=== PATIENT | female | born 1960 | race Caucasian/White ===

== ENCOUNTER → 2019-12-23 13:19 | Outpatient (BNV) | payer OTHER, SELFPAY | PROVIDERS: Visit Provider Internal Medicine Medical Oncology | DX: D75.1 Secondary polycythemia (principal) | CPT/HCPCS: 99203; 99213; 99214 ==

== ENCOUNTER → 2019-12-28 14:36 | Outpatient (BNVA) | payer OTHER, SELFPAY | PROVIDERS: PCP Internal Medicine; Visit Provider Surgery | DX: Z76.89 Persons encountering health services in other specified circumstances (principal) ==

== ENCOUNTER 2020-02-02 07:02 | Day surgery (SDC) | payer OTHER, SELFPAY ==
[2020-01-28 15:21] VITALS: BMI 37.8
--- NOTE | 2020-02-01 11:04 | HO.ANESPROP2 ---
Documented by User: Annalee Ramirez 02/01/20 11:07 HPI - Anesthesia Eval Consult details Narrative: 59yo F for Colonoscopy H/O DI 05/2018 shoulder surgery with resp distress, tx'd to ICU intubated post-op Mult med allergies PMFSH Past Medical History Medical History Asthma Boils Bursitis Chronic, continuous use of opioids COPD (chronic obstructive pulmonary disease) Diabetes Disc degeneration Eczema Fibromyalgia GERD (gastroesophageal reflux disease) Hx of difficult intubation Osteoarthritis Polycythemia Rheumatoid arthritis Sjogrens syndrome Sleep apnea Smoker Surgical History Surgical History History of bladder suspension procedure History of colonoscopy History of removal of cyst History of surgical removal of pilonidal cyst Hx of appendectomy Hx of cholecystectomy Hx of hysterectomy Hx of plastic surgery Hx of tonsillectomy Social History Social History Alcohol intake: never Smoking Status: Current every day smoker Tobacco Type: E-Cigarette and Pipe Packs Per Day: 1 Cigarettes Per Day: 20.0 Years Smoked: 46 Smoked in Last 30 Days: Yes Patient Given Instructions on How to Stop Smoking: Yes Date Education Initiated: 01/28/20 Use of substances other than those prescribed or required for medical reasons: No Advance Directives: No Advance Directives Information Provided: No Advance Directives on File: No Meds Allergies Allergy/AdvReac Type Severity Reaction Status Date / Time azithromycin [AZITHROMYCIN] Allergy Severe DIFFICULTY Verified 02/02/20 07:47 BREATHING acetaminophen [From TYLENOL] Allergy Unknown ITCHING Verified 02/02/20 07:47 adhesive tape [ADHESIVE TAPE] Allergy Unknown RASH Verified 02/02/20 07:47 atorvastatin [From LIPITOR] Allergy Unknown DIFF Verified 02/02/20 07:47 BREATHING gentamicin [GENTAMICIN] Allergy Unknown RASH Verified 02/02/20 07:47 haloperidol [From HALDOL] Allergy Unknown GI ISSUES Verified 02/02/20 07:47 prasterone (DHEA) [From DHEA] Allergy Unknown CARDIAC Verified 02/02/20 07:47 ISSUES sumatriptan [From IMITREX] Allergy Unknown DIFF Verified 02/02/20 07:47 BREATHING varenicline [From CHANTIX] Allergy Unknown SEIZURE Verified 02/02/20 07:47 adalimumab [From Humira] Allergy Rash Verified 02/02/20 07:47 ketorolac [From TORADOL] AdvReac Unknown Muscle Verified 02/02/20 07:47 cramps dust Allergy Unknown asthma Uncoded 12/28/19 14:47 attack Home Medications Medication Instructions Recorded Confirmed Type albuterol sulfate 1 puff PO Q6H PRN 12/23/19 02/02/20 History cyclobenzaprine [Flexeril] 5 mg PO BID PRN 12/23/19 02/02/20 History diazepam 1 - 2 tab PO BID PRN 12/23/19 02/02/20 History diclofenac sodium [Voltaren] 75 mg PO DAILY 12/23/19 02/02/20 History hydroxychloroquine 200 mg PO DAILY 12/23/19 02/02/20 History insulin glargine [Lantus Solostar 50 unit SUBCUT BID 12/23/19 02/02/20 History U-100 Insulin] loratadine 10 mg PO BID 12/23/19 02/02/20 History mag [id number] rt xt 1 tab PO DAILY 12/23/19 02/02/20 History metformin 1,000 mg PO BID 12/23/19 02/02/20 History montelukast 10 mg PO BEDTIME 12/23/19 02/02/20 History morphine 15 mg PO BID PRN 12/23/19 02/02/20 History pantoprazole 40 mg PO DAILY 12/23/19 02/02/20 History aspirin 325 mg PO BID 01/28/20 02/02/20 History insulin lispro [Humalog KwikPen 25 unit SUBCUT TID 01/28/20 02/02/20 History Insulin] multivitamin 1 tab PO DAILY 01/28/20 02/02/20 History Exam Exam Date and Time: February 01, 2020 1104 Height,Weight and Vital Signs: Height 5 ft 4 in Weight 99.79 kg Pertinent Lab Results Pertinent Lab Results: Laboratory Tests 12/23/19 12/23/19 14:44 14:44 WBC 10.9 H Hgb 16.7 H Hct 49.5 H Plt Count 234 Sodium 142 Potassium 5.0 Chloride 103 Carbon Dioxide 29 BUN 7 L Creatinine 0.71 Assessment and Plan Assessment Anesthesia Assessment: Chart Reviewed Documented by User: Sirisha Kern 02/02/20 08:50 PMFSH Past Medical History Medical History Asthma Boils Bursitis Chronic, continuous use of opioids COPD (chronic obstructive pulmonary disease) Diabetes Disc degeneration Eczema Fibromyalgia GERD (gastroesophageal reflux disease) Hx of difficult intubation Osteoarthritis Polycythemia Rheumatoid arthritis Sjogrens syndrome Sleep apnea Smoker Surgical History Surgical History History of bladder suspension procedure History of colonoscopy History of removal of cyst History of surgical removal of pilonidal cyst Hx of appendectomy Hx of cholecystectomy Hx of hysterectomy Hx of plastic surgery Hx of tonsillectomy Social History Social History Alcohol intake: never Smoking Status: Current every day smoker Tobacco Type: E-Cigarette and Pipe Packs Per Day: 1 Cigarettes Per Day: 20.0 Years Smoked: 46 Smoked in Last 30 Days: Yes Patient Given Instructions on How to Stop Smoking: Yes Date Education Initiated: 01/28/20 Use of substances other than those prescribed or required for medical reasons: No Advance Directives: No Advance Directives Information Provided: No Advance Directives on File: No Meds Allergies Allergy/AdvReac Type Severity Reaction Status Date / Time azithromycin [AZITHROMYCIN] Allergy Severe DIFFICULTY Verified 02/02/20 07:47 BREATHING acetaminophen [From TYLENOL] Allergy Unknown ITCHING Verified 02/02/20 07:47 adhesive tape [ADHESIVE TAPE] Allergy Unknown RASH Verified 02/02/20 07:47 atorvastatin [From LIPITOR] Allergy Unknown DIFF Verified 02/02/20 07:47 BREATHING gentamicin [GENTAMICIN] Allergy Unknown RASH Verified 02/02/20 07:47 haloperidol [From HALDOL] Allergy Unknown GI ISSUES Verified 02/02/20 07:47 prasterone (DHEA) [From DHEA] Allergy Unknown CARDIAC Verified 02/02/20 07:47 ISSUES sumatriptan [From IMITREX] Allergy Unknown DIFF Verified 02/02/20 07:47 BREATHING varenicline [From CHANTIX] Allergy Unknown SEIZURE Verified 02/02/20 07:47 adalimumab [From Humira] Allergy Rash Verified 02/02/20 07:47 ketorolac [From TORADOL] AdvReac Unknown Muscle Verified 02/02/20 07:47 cramps dust Allergy Unknown asthma Uncoded 12/28/19 14:47 attack Home Medications Medication Instructions Recorded Confirmed Type albuterol sulfate 1 puff PO Q6H PRN 12/23/19 02/02/20 History cyclobenzaprine [Flexeril] 5 mg PO BID PRN 12/23/19 02/02/20 History diazepam 1 - 2 tab PO BID PRN 12/23/19 02/02/20 History diclofenac sodium [Voltaren] 75 mg PO DAILY 12/23/19 02/02/20 History hydroxychloroquine 200 mg PO DAILY 12/23/19 02/02/20 History insulin glargine [Lantus Solostar 50 unit SUBCUT BID 12/23/19 02/02/20 History U-100 Insulin] loratadine 10 mg PO BID 12/23/19 02/02/20 History mag [id number] rt xt 1 tab PO DAILY 12/23/19 02/02/20 History metformin 1,000 mg PO BID 12/23/19 02/02/20 History montelukast 10 mg PO BEDTIME 12/23/19 02/02/20 History morphine 15 mg PO BID PRN 12/23/19 02/02/20 History pantoprazole 40 mg PO DAILY 12/23/19 02/02/20 History aspirin 325 mg PO BID 01/28/20 02/02/20 History insulin lispro [Humalog KwikPen 25 unit SUBCUT TID 01/28/20 02/02/20 History Insulin] multivitamin 1 tab PO DAILY 01/28/20 02/02/20 History Exam Airway Mallampati Class: II TM Dist: >3cm Neck ROM: Full Assessment and Plan Assessment Anesthesia Assessment: Anesthesia Plan Discussed and Chart Reviewed Final Anesthetic Review NPO: Yes ASA Class: III Final Preanesthetic Review: No Changes in Pt Med Stat, Meds/Allgs Chart Reviewed, Consent Obtained/Reviewed and Anes Risks/Benef Reviewed Patient Risk: Intermediate Procedure Risk: Low Assessment/Block/Sedation in SS: Assess/Block/Sedation-SS Anesthetic Plan Anesthetic Plan: MAC: Disposition: Standard PACU
[2020-02-02 07:12] VITALS: BP 126/76; PULSE 77; RESP 20; TEMP 36.3; O2SAT 96
[2020-02-02] MEDS: Lactated Ringers 1,000 ML 100 ML IVCONT (07:44)
[2020-02-02 07:48] LABS: Glucose, Whole Blood 238 mg/dL (60-115)
--- NOTE | 2020-02-02 08:36 | MHC.SHP ---
Pre-Procedural Eval Section B Chief Complaint: Screening Details of Present Illness: Screening Relevant Family History (Specify if Yes): No Relevant Social History: Tobacco Use Present Medications: see Short Stay Collaborative assessment Medical History: Significant History (Diabetes, sleep apnea, rheumatoid arthritis) History of Previous Operations: No relevant previous surgery Allergies: Allergies Allergy/AdvReac Type Severity Reaction Status Date / Time azithromycin [AZITHROMYCIN] Allergy Severe DIFFICULTY Verified 02/02/20 07:47 BREATHING acetaminophen [From TYLENOL] Allergy Unknown ITCHING Verified 02/02/20 07:47 adhesive tape [ADHESIVE TAPE] Allergy Unknown RASH Verified 02/02/20 07:47 atorvastatin [From LIPITOR] Allergy Unknown DIFF Verified 02/02/20 07:47 BREATHING gentamicin [GENTAMICIN] Allergy Unknown RASH Verified 02/02/20 07:47 haloperidol [From HALDOL] Allergy Unknown GI ISSUES Verified 02/02/20 07:47 prasterone (DHEA) [From DHEA] Allergy Unknown CARDIAC Verified 02/02/20 07:47 ISSUES sumatriptan [From IMITREX] Allergy Unknown DIFF Verified 02/02/20 07:47 BREATHING varenicline [From CHANTIX] Allergy Unknown SEIZURE Verified 02/02/20 07:47 adalimumab [From Humira] Allergy Rash Verified 02/02/20 07:47 ketorolac [From TORADOL] AdvReac Unknown Muscle Verified 02/02/20 07:47 cramps dust Allergy Unknown asthma Uncoded 12/28/19 14:47 attack Review of Systems Sugical H&P ROS: Negative: Constitution, Cardiovascular, Respiratory, Neurological, Psychiatric, Hem-Onc, Allergic/Immunologic, Gastrointestinal, Genitourinary, Integumentary, Endocrine and Eyes/Ears/Nose/Throat and Yes, Specify: Musculoskeletal (Back pain, and generalized pain) Exam Surgical H&P Exam: Normal: HEENT, Normal: Heart, Normal: Lungs, Normal: Abdomen, Normal: Skin and Normal: Neurological and Not Evaluated: Extremities Plan Diagnosis/Plan: Unchanged Patient has been examined and remains a candidate for the planned procedure
--- NOTE | 2020-02-02 11:24 | W.PM.OPN ---
Operative Note Operative Note Date of Service: 02/02/20 Narrative: Preoperative diagnosis: Colon carcinoma screening Postoperative diagnosis: Colon polyp Procedure: Colonoscopy with snare polypectomy Anesthesia: Monitored anesthesia care Estimated blood loss: Less than 1 cc specimen: Polyp at 30 cm Immediate complications: none Indications: This is a 59-year-old female who has undergone colonoscopy in the past. She reports no prior problems and presents for routine screening colonoscopy. Findings: There was 1 approximately 5 mm sessile polyp at about 30 cm, which was removed with the oval snare with cautery setting of 25. Procedure in detail: With patient in left lateral decubitus position after obtaining adequate sedation, time-out procedure was performed. Rectal examination was then performed and demonstrated moderately edematous external hemorrhoids. The flexible pediatric colonoscope was introduced and was gradually advanced through the bowel to the level of the cecum. The cecal pouch, ileocecal valve and appendiceal orifice were visualized and appeared normal. The ileocecal valve was intubated and the terminal ileum was inspected. It also appeared normal. The scope was drawn back into the cecum. The prep was very good. The scope was slowly withdrawn, visualizing all mucosal surfaces, was retroflexed within the rectum and was then straightened and withdrawn. An approximately 5 mm polyp was identified at the 30 cm level and was removed with the small oval snare with cautery setting of 25. It was recovered on the scope tip with suction. No other abnormalities were identified except for the presence of external hemorrhoids. She tolerated the procedure well. Recommendations for follow-up colonoscopy will be made once pathology results are available. If this is an adenomatous polyp, next colonoscopy would be due in 5 years.
== END 2020-02-02 10:55 | disposition home or self-care (01) ==
LOC: HO.SSS 07:03
PROVIDERS: PCP Internal Medicine; Visit Provider Surgery
PROC: 0DJD8ZZ Inspection of Lower Intestinal Tract, Via Natural or Artificial Opening Endoscopic (ICD-10-PCS; CPT 45378; principal; 2020-02-02 08:20)
DX: Z12.11 Encounter for screening for malignant neoplasm of colon (principal); K63.5 Polyp of colon; K64.4 Residual hemorrhoidal skin tags; E11.9 Type 2 diabetes mellitus without complications; Z79.4 Long term (current) use of insulin; Z88.8 Allergy status to other drugs, medicaments and biological substances
CPT/HCPCS: 45385; 82947; 88305; J2405; J3010

== ENCOUNTER 2020-02-14 13:00 | Outpatient (REF) | payer OTHER, SELFPAY ==
[2020-02-22 14:31] LABS: JAK2 CALR Exon 9 Mutation Not Detected (Not Detected); JAK2 CSF3R Exon 14/17 Mutation Not Detected (Not Detected); JAK2 Indication Not Given; JAK2 MPL Exon 10 Mutation Not Detected (Not Detected); JAK2 V617F Mutation Not Detected (Not Detected)
== END 2020-02-14 13:01 | disposition home or self-care (01) ==
LOC: HO.BBR 13:00
PROVIDERS: Visit Provider Internal Medicine Medical Oncology
DX: D75.1 Secondary polycythemia (principal)
CPT/HCPCS: 36415; 81403; 85014; 85018; 99195

== ENCOUNTER 2020-03-14 13:58 | Outpatient (REF) | payer OTHER, SELFPAY | END 2020-03-14 13:59 | disposition home or self-care (01) | LOC: HO.BBR 13:58 | PROVIDERS: Visit Provider Internal Medicine Medical Oncology | DX: D75.1 Secondary polycythemia (principal) | CPT/HCPCS: 85018; 99195 ==

== ENCOUNTER 2020-04-11 13:59 | Outpatient (REF) | payer OTHER, SELFPAY | END 2020-04-11 14:00 | disposition home or self-care (01) | LOC: HO.BBR 13:59 | PROVIDERS: Visit Provider Internal Medicine Medical Oncology | DX: D75.1 Secondary polycythemia (principal) | CPT/HCPCS: 85014; 85018; 99195 ==

== ENCOUNTER 2020-05-23 14:21 | Outpatient (REF) | payer OTHER, SELFPAY ==
--- NOTE | ~2020-05-23 | MM_ITS ---
EXAMINATION: BONE DENSITOMETRY CLINICAL INDICATION: Screening for osteoporosis. COMPARISON: None (current study represents initial baseline exam). TECHNIQUE: Using a [employer] DXA System (software version: 13.1) manufactured by [employer], dual-energy x-ray absorptiometry was performed of the lumbar spine and left hip. The images are of good technical quality. Summary results are attached. FINDINGS: AP SPINE L1-L4: BMD 1.251 g/cm2, Z-score 0.9, T-score 0.6, normal. LEFT FEMUR, NECK: BMD 0.829 g/cm2, Z-score -0.8, T-score -1.5, osteopenia. LEFT FEMUR, TOTAL: BMD 0.843 g/cm2, Z-score -1.0, T-score -1.3, osteopenia. IDENTIFIED RISK FACTORS: Early menopause, secondary osteoporosis, history of fracture (adult), rheumatoid arthritis, tobacco use (current smoker), recurrent falls, hysterectomy, bilateral oophorectomy. HISTORY OF FRACTURE: Humerus/shoulder. MEDICATIONS: Multivitamin. MM/XR DEXA axial skeleton IMPRESSION: 1. DIAGNOSIS: Osteopenia based on the lowest T-score value of -1.5 in the femoral neck applying World Health Organization criteria. 2. 10-YEAR FRACTURE RISK PREDICTION, FRAX: Major osteoporotic fracture (clinical spine, forearm, hip or shoulder) 16.4%. Hip fracture 2.6%. 3. Treatment Recommendations: NOF guidelines recommend consideration for treatment in postmenopausal women and men age 50 and older presenting with the following: -A hip or vertebral (clinical or morphometric) fracture. -T-score less than or equal to -2.5 at the femoral neck or spine after appropriate evaluation to exclude secondary causes. -Low bone mass at the hip or spine and a 10-year fracture probability by FRAX of greater than or equal to 3% for hip fracture or greater than or equal to 20% for major osteoporotic fracture based on the [place] adapted WHO algorithm. 4. Other Recommendations: All treatment decisions require clinical judgment and consideration of individual patient factors, including patient preferences, comorbidities, previous drug use, risk factors not captured in the FRAX model (e.g. frailty, falls, vitamin D deficiency, increased bone turnover, interval significant decline in bone density) and possible under or overestimation of fracture risk by FRAX. Additional medical evaluation for secondary cause of low bone mineral density may be appropriate. FUTURE SCAN RECOMMENDATION: People with diagnosed cases of osteoporosis or at high risk for fracture should have regular bone mineral density tests. For patients eligible for Medicare, routine testing is allowed once every 2 years. The testing frequency can be increased to one year for patients who have rapidly progressing disease, those who are receiving or discontinuing medical therapy to restore bone mass, or have additional risk factors.
== END 2020-05-23 14:22 | disposition home or self-care (01) ==
LOC: HO.MAMMO 14:21
PROVIDERS: PCP Pediatrics; Visit Provider Internal Medicine
DX: M80.00XA Age-related osteoporosis with current pathological fracture, unspecified site, initial encounter for fracture (principal); M06.9 Rheumatoid arthritis, unspecified; F17.210 Nicotine dependence, cigarettes, uncomplicated; Z78.0 Asymptomatic menopausal state; Z91.81 History of falling; Z90.710 Acquired absence of both cervix and uterus; Z90.722 Acquired absence of ovaries, bilateral
CPT/HCPCS: 77080

== ENCOUNTER 2020-06-09 09:01 | Outpatient (REF) | payer OTHER, SELFPAY ==
--- NOTE | ~2020-06-09 | XR_ITS ---
EXAMINATION: XR SHOULDER, LEFT CLINICAL INFORMATION: Left shoulder pain COMPARISON: None TECHNIQUE: Three views of the left shoulder. FINDINGS: Normal alignment with no fracture. Prominent inferior osteophyte of the glenoid. Spurring of the greater tuberosity as well as a subacromial spur. Mild acromioclavicular osteoarthritis. XR/XR shoulder LT min 2V IMPRESSION: Mild to moderate acromioclavicular and glenohumeral osteoarthritis. Subacromial spur. No acute osseous abnormality.
[2020-06-09 14:33] LABS: Alanine Aminotransferase 15 U/L (0-31); Albumin Level 4.2 g/dL (3.5-5.0); Alkaline Phosphatase 89 U/L (39-117); Anion Gap 15 (12-20); Aspartate Amino Transferase 14 U/L (5-31); Bilirubin Total 0.4 mg/dL (0.0-1.0); Blood Urea Nitrogen 12 mg/dL (9-16); Calcium 10.1 mg/dL (8.4-10.2); Carbon Dioxide 29 mmol/L (22-29); Chloride 100 mmol/L (96-108); Estimated Glomerular Filt Rate > 60; Glucose Random 261 mg/dL (60-115); Sodium 139 mmol/L (135-145); Total Protein 6.9 g/dL (6.5-8.0)
== END 2020-06-09 09:02 | disposition home or self-care (01) ==
LOC: HO.HOSX 09:01
PROVIDERS: Absent Provider Internal Medicine; PCP Internal Medicine; Visit Provider Orthopaedic Surgery
DX: M19.012 Primary osteoarthritis, left shoulder (principal); M35.00 Sjogren syndrome, unspecified; Q87.19 Other congenital malformation syndromes predominantly associated with short stature; F17.290 Nicotine dependence, other tobacco product, uncomplicated; Z79.899 Other long term (current) drug therapy
CPT/HCPCS: 20610; 36415; 73030; 80053; J1100

== ENCOUNTER 2020-07-04 11:52 | Outpatient (REF) | payer OTHER, SELFPAY | END 2020-07-04 11:53 | disposition home or self-care (01) | LOC: HO.BBR 11:52 | PROVIDERS: Visit Provider Internal Medicine Medical Oncology | DX: D75.1 Secondary polycythemia (principal) | CPT/HCPCS: 36415; 85014; 85018; 99195 ==

== ENCOUNTER → 2020-07-05 08:16 | Outpatient (BNVA) | payer OTHER, SELFPAY | PROVIDERS: PCP Internal Medicine; Visit Provider Anesthesiology ==

== ENCOUNTER 2020-07-26 10:29 | Outpatient (REF) | payer OTHER, SELFPAY ==
[2020-07-26 13:09] LABS: Ethanol < 10 mg/dL
== END 2020-07-26 10:30 | disposition home or self-care (01) ==
LOC: HO.LAB 10:29
PROVIDERS: PCP Internal Medicine; Visit Provider Nurse Practitioner Family
DX: R82.90 Unspecified abnormal findings in urine (principal); M19.90 Unspecified osteoarthritis, unspecified site; M06.9 Rheumatoid arthritis, unspecified; M35.00 Sjogren syndrome, unspecified; M81.0 Age-related osteoporosis without current pathological fracture; G89.4 Chronic pain syndrome; Z79.891 Long term (current) use of opiate analgesic
CPT/HCPCS: 36415; 82077

== ENCOUNTER 2020-08-07 14:06 | Outpatient (REF) | payer OTHER, SELFPAY | END 2020-08-07 14:07 | disposition home or self-care (01) | LOC: HO.BBR 14:06 | PROVIDERS: Visit Provider Internal Medicine Medical Oncology | DX: D75.1 Secondary polycythemia (principal) | CPT/HCPCS: 85018; 99195 ==

== ENCOUNTER → 2020-08-08 13:21 | Outpatient (BNVA) | payer OTHER, SELFPAY | PROVIDERS: PCP Internal Medicine; Visit Provider Nurse Practitioner Family ==

== ENCOUNTER 2020-08-25 16:57 | Emergency (ER) | payer OTHER, SELFPAY ==
[2020-08-25 17:53] VITALS: BP 139/78; PULSE 86; RESP 18; TEMP 36.6; O2SAT 96; BMI 33.7
== END 2020-08-25 20:28 | disposition left against medical advice (07) ==
PROVIDERS: Emergency Provider Internal Medicine; PCP Internal Medicine
DX: K92.1 Melena (principal); Z79.82 Long term (current) use of aspirin
CPT/HCPCS: 99282

== ENCOUNTER 2020-09-07 14:03 | Outpatient (REF) | payer OTHER, SELFPAY ==
--- NOTE | ~2020-09-07 | XR_ITS ---
EXAMINATION: XR BILATERAL KNEES, STANDING AP XR BILATERAL KNEES: AP AND LATERAL VIEWS OF EACH CLINICAL INFORMATION: Pain COMPARISON: None FINDINGS: No acute fracture or dislocation. There are small tricompartmental marginal osteophytes most pronounced along the medial tibiofemoral compartments and patellofemoral compartments bilaterally. Articular surfaces are smooth. Quadriceps and patellar tendon enthesopathy present bilaterally. No joint effusion. XR/XR knee RT 2V IMPRESSION: No acute findings. Degenerative changes as described.
--- NOTE | ~2020-09-07 | XR_ITS ---
EXAMINATION: XR BILATERAL KNEES, STANDING AP XR BILATERAL KNEES: AP AND LATERAL VIEWS OF EACH CLINICAL INFORMATION: Pain COMPARISON: None FINDINGS: No acute fracture or dislocation. There are small tricompartmental marginal osteophytes most pronounced along the medial tibiofemoral compartments and patellofemoral compartments bilaterally. Articular surfaces are smooth. Quadriceps and patellar tendon enthesopathy present bilaterally. No joint effusion. XR/XR knee LT 2V IMPRESSION: No acute findings. Degenerative changes as described.
--- NOTE | ~2020-09-07 | XR_ITS ---
EXAMINATION: XR BILATERAL KNEES, STANDING AP XR BILATERAL KNEES: AP AND LATERAL VIEWS OF EACH CLINICAL INFORMATION: Pain COMPARISON: None FINDINGS: No acute fracture or dislocation. There are small tricompartmental marginal osteophytes most pronounced along the medial tibiofemoral compartments and patellofemoral compartments bilaterally. Articular surfaces are smooth. Quadriceps and patellar tendon enthesopathy present bilaterally. No joint effusion. XR/XR knee standing BI IMPRESSION: No acute findings. Degenerative changes as described.
== END 2020-09-07 14:04 | disposition home or self-care (01) ==
LOC: HO.HOSX 14:03
PROVIDERS: PCP Internal Medicine; Visit Provider Orthopaedic Surgery
DX: M25.561 Pain in right knee (principal); M25.562 Pain in left knee
CPT/HCPCS: 73560; 73565

== ENCOUNTER 2020-09-08 13:25 | Outpatient (REF) | payer OTHER, SELFPAY | END 2020-09-08 13:26 | disposition home or self-care (01) | LOC: HO.BBR 13:25 | PROVIDERS: PCP Internal Medicine; Visit Provider Internal Medicine Medical Oncology | DX: D75.1 Secondary polycythemia (principal) | CPT/HCPCS: 85014; 85018; 99195 ==

== ENCOUNTER → 2020-09-14 14:16 | Outpatient (BNVA) | payer OTHER, SELFPAY | PROVIDERS: PCP Internal Medicine; Visit Provider Anesthesiology ==

== ENCOUNTER 2020-09-27 00:25 | Emergency (ER) | payer OTHER, SELFPAY ==
--- NOTE | ~2020-09-27 | XR_ITS ---
EXAMINATION: XR LUMBOSACRAL SPINE CLINICAL INFORMATION: Status post fall COMPARISON: None TECHNIQUE: Three views of the lumbosacral spine. FINDINGS: No fracture or subluxation. Vertebral body height and alignment maintained. Disc spaces are maintained. Multilevel small endplate osteophytes are present. Multilevel facet arthropathy greatest at the lower lumbar spine. The sacroiliac joints are symmetric. The visualized sacrum is intact. Nonobstructive bowel gas pattern. Right upper quadrant surgical clips noted. XR/XR lumbar spine 2-3V IMPRESSION: No acute abnormality. Degenerative changes throughout the spine.
[2020-09-27 00:55] VITALS: BP 148/87; PULSE 92; RESP 18; TEMP 37; O2SAT 94; BMI 34.0
--- NOTE | 2020-09-27 01:29 | ED.FALL ---
HPI - Fall General Chief Complaint: Fall Stated Complaint: fall Time Seen by Provider: 09/27/20 01:29 Source: patient Mode of arrival: ambulatory Limitations: no limitations History of Present Illness HPI Narrative: Patient came after mechanical fall while coming out of the bathroom tripped and fell landed on her back patient took her 10 mg of oxycodone prior to arrival ambulated to the ER complaining of pain all over the lower back no head injury no loss of consciousness. Patient with chronic pain syndrome on oxycodone for chronic pain Related Data Home Medications Medication Instructions Recorded Confirmed Ventolin HFA 09/27/20 09/27/20 albuterol sulfate 90 mcg/actuation 2 puff PO Q6H 09/27/20 09/27/20 aerosol inhaler ammonium lactate 12 % topical cream 1 appl TOPICAL DAILY 09/27/20 09/27/20 aspirin 325 mg tablet 325 mg PO 0030 09/27/20 09/27/20 aspirin 325 mg tablet 325 mg PO 1230 09/27/20 09/27/20 cyclobenzaprine 5 mg tablet 5 mg PO BID PRN 09/27/20 09/27/20 diclofenac sodium 75 mg 75 mg PO DAILY PRN 09/27/20 09/27/20 tablet,delayed release hydroxychloroquine 200 mg tablet 200 mg PO DAILY 09/27/20 09/27/20 hyoscyamine sulfate 0.125 mg tablet 0.125 mg PO DAILY PRN 09/27/20 09/27/20 insulin lispro 100 unit/mL 20 unit SUBCUT QIDWMHS 09/27/20 09/27/20 subcutaneous pen (Humalog KwikPen (U-100) Insulin) loratadine 10 mg tablet 10 mg PO 0030 09/27/20 09/27/20 loratadine 10 mg tablet 10 mg PO 1230 09/27/20 09/27/20 magnesium oxide 400 mg PO DAILY 09/27/20 09/27/20 metformin 1,000 mg tablet 1,000 mg PO 0030 09/27/20 09/27/20 metformin 1,000 mg tablet 1,000 mg PO 1230 09/27/20 09/27/20 montelukast 10 mg tablet 10 mg PO 0030 09/27/20 09/27/20 morphine 15 mg tablet,extended 15 mg PO 1230 09/27/20 09/27/20 release morphine 30 mg tablet,extended 30 mg PO 0030 09/27/20 09/27/20 release multivitamin 1 tab PO DAILY 09/27/20 09/27/20 mupirocin calcium 2 % topical cream 1 appl TOPICAL DAILY PRN 09/27/20 09/27/20 naloxone 0.4 mg/mL injection 0.4 mg INTRANASAL NEEDED PRN 09/27/20 09/27/20 solution oxycodone 10 mg tablet 10 mg PO BID PRN 09/27/20 09/27/20 pantoprazole 40 mg tablet,delayed 40 mg PO 1230 09/27/20 09/27/20 release Allergies Allergy/AdvReac Type Severity Reaction Status Date / Time azithromycin [AZITHROMYCIN] Allergy Severe DIFFICULTY Verified 09/27/20 01:04 BREATHING acetaminophen [From TYLENOL] Allergy Unknown ITCHING Verified 09/27/20 01:04 adhesive tape [ADHESIVE TAPE] Allergy Unknown RASH Verified 09/27/20 01:04 atorvastatin [From LIPITOR] Allergy Unknown DIFF Verified 09/27/20 01:04 BREATHING gentamicin [GENTAMICIN] Allergy Unknown RASH Verified 09/27/20 01:04 haloperidol [From HALDOL] Allergy Unknown GI ISSUES Verified 09/27/20 01:04 prasterone (DHEA) [From DHEA] Allergy Unknown CARDIAC Verified 09/27/20 01:04 ISSUES sumatriptan [From IMITREX] Allergy Unknown DIFF Verified 09/27/20 01:04 BREATHING varenicline [From CHANTIX] Allergy Unknown SEIZURE Verified 09/27/20 01:04 adalimumab [From Humira] Allergy Rash Verified 09/27/20 01:04 ketorolac [From TORADOL] AdvReac Unknown Muscle Verified 09/27/20 01:04 cramps dust Allergy Severe Difficulty Uncoded 09/27/20 01:20 Breathing Review of Systems Review of Systems: Yes all other systems are reviewed and are negative PMFSH Past Medical History Medical History Asthma Boils Bursitis Chronic pain syndrome Chronic, continuous use of opioids COPD (chronic obstructive pulmonary disease) Diabetes Disc degeneration Eczema Fibromyalgia GERD (gastroesophageal reflux disease) Hx 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 Osteoarthritis Osteoarthritis Osteoporosis Polycythemia Rheumatoid arthritis Rheumatoid arthritis Sjogrens syndrome Sjogrens syndrome Sleep apnea Smoker Surgical History History of bladder suspension procedure History of colonoscopy History of removal of cyst History of surgical removal of pilonidal cyst Hx of appendectomy Hx of cholecystectomy Hx of hysterectomy Hx of plastic surgery Hx of tonsillectomy Social History Social History Are you a primary foster care therapist to a significant other at home: No Alcohol intake: never Cigarette Packs Per Day: 1 Cigarettes Per Day: 20.0 Years Smoked: 46 Advance Directives: No Advance Directives Information Provided: No Patient : No Physical Exam Vital Signs: Vital Signs: Last Vital Signs Temp 99 F 09/27/20 02:25 Pulse 85 09/27/20 02:25 Resp 20 09/27/20 02:25 BP 147/85 H 09/27/20 02:25 Pulse Ox 95 09/27/20 02:25 Body Mass Index 34.0 Const: General: comfortable and in distress mild Orientation/consciousness: patient oriented x3 HENMT: Head: Yes normocephalic and Yes atraumatic Ears: hearing grossly normal bilaterally Eyes: General: appearance normal, both eyes and all related structures Neck: Neck: Yes full ROM and No tender Chest: Chest palpation & inspection: normal palpation of entire chest wall Resp: Effort & Inspection: normal respiratory effort and able to speak in complete sentences Auscultation: clear to auscultation bilaterally Cardio: Rate: regular rate Rhythm: regular rhythm Heart sounds: S1 normal heart sound present and S2 normal heart sound present GI: Inspection: Yes normal to inspection Palpation (GI): Soft to palpation and nontender Back/Spine/Pelvis: Back/spine/pelvis image: 1. Diffuse tenderness paraspinal area, no focal spinal tenderness no ecchymosis 2. Diffuse tenderness paraspinal area, no focal spine tenderness no ecchymosis Neuro: General: patient oriented x3 and no focal motor deficits MDM - Fall MDM Narrative Medical decision making narrative: Patient lumbar spine x-rays negative feeling much better after morphine and ambulate in the ER will discharge patient home Discharge Plan Discharge Clinical Impression: Contusion Qualifiers: Encounter type: initial encounter Contusion area: lower back Qualified Code(s): S30.0XXA - Contusion of lower back and pelvis, initial encounter Patient Disposition: Home, Self-Care Instructions: Contusion in Adults (ED) Additional Instructions: Take medication as prescribed by her PCP apply ice follow with your PCP Prescriptions: No Action aspirin 325 mg Tablet 325 mg PO 1230 RF: 0 aspirin 325 mg Tablet 325 mg PO 0030 RF: 0 naloxone [Narcan] 0.4 mg/mL Solution 0.4 mg intranasal NEEDED PRN (Reason: Opiate Reversal) RF: 0 morphine 30 mg Tablet Extended Release 30 mg PO 0030 RF: 0 pantoprazole 40 mg Tablet,Delayed Release (Dr/Ec) 40 mg PO 1230 RF: 0 hyoscyamine sulfate 0.125 mg Tablet 0.125 mg PO DAILY PRN (Reason: Muscle Pain) RF: 0 metformin 1,000 mg Tablet 1,000 mg PO 0030 RF: 0 metformin 1,000 mg Tablet 1,000 mg PO 1230 RF: 0 mupirocin calcium [Bactroban] 2 % Cream 1 appl TOPICAL DAILY PRN (Reason: Skin Irritation) RF: 0 diclofenac sodium [Voltaren] 75 mg Tablet,Delayed Release (Dr/Ec) 75 mg PO DAILY PRN (Reason: Pain) RF: 0 montelukast 10 mg Tablet 10 mg PO 0030 RF: 0 morphine 15 mg Tablet Extended Release 15 mg PO 1230 RF: 0 ammonium lactate 12 % Cream 1 appl TOPICAL DAILY RF: 0 hydroxychloroquine 200 mg Tablet 200 mg PO DAILY RF: 0 albuterol sulfate 90 mcg/actuation HFA aerosol inhaler 2 puff PO Q6H RF: 0 loratadine 10 mg Tablet 10 mg PO 0030 RF: 0 loratadine 10 mg Tablet 10 mg PO 1230 RF: 0 insulin lispro [Humalog KwikPen Insulin] 100 unit/mL Insulin Pen 20 unit SUBCUT QIDWMHS RF: 0 cyclobenzaprine [Flexeril] 5 mg Tablet 5 mg PO BID PRN (Reason: Pain) RF: 0 oxycodone 10 mg Tablet 10 mg PO BID PRN (Reason: Pain) RF: 0 magnesium oxide 400 mg magnesium Tablet 400 mg PO DAILY RF: 0 Ventolin HFA RF: 0 multivitamin 1 tab PO DAILY RF: 0 Interventions: ED Discharge Assessment Last Done: 09/27/20 02:58 Discharge Date/Time: 09/27/20 02:59
[2020-09-27 01:56] VITALS: RESP 20
[2020-09-27] MEDS: Morphine Sulfate 10 MG/ML CARTRIDGE IM (01:56)
[2020-09-27] MEDS: Ondansetron ODT 4 MG TAB.RAPDIS TRANSLINGU (02:23)
[2020-09-27 02:25] VITALS: BP 147/85; PULSE 85; RESP 20; TEMP 37.2; O2SAT 95
== END 2020-09-27 02:59 | disposition home or self-care (01) ==
PROVIDERS: Emergency Provider Internal Medicine
DX: S30.0XXA Contusion of lower back and pelvis, initial encounter (principal); G89.4 Chronic pain syndrome; E11.9 Type 2 diabetes mellitus without complications; Z79.891 Long term (current) use of opiate analgesic; Z79.84 Long term (current) use of oral hypoglycemic drugs; W01.0XXA Fall on same level from slipping, tripping and stumbling without subsequent striking against object, initial encounter; Y93.9 Activity, unspecified; Y92.9 Unspecified place or not applicable; Y99.9 Unspecified external cause status
CPT/HCPCS: 72100; 96372; 99284; J2270

== ENCOUNTER 2020-10-03 14:30 | Outpatient (REF) | payer OTHER, SELFPAY ==
--- NOTE | ~2020-10-03 | XR_ITS ---
EXAMINATION: XR LUMBOSACRAL SPINE CLINICAL INFORMATION: Back pain with sciatica. COMPARISON: Lumbar spine radiographs dated 09/27/2020. TECHNIQUE: 3 views of the lumbosacral spine. FINDINGS: Normal vertebral body alignment. No acute fracture or subluxation. No loss of vertebral body height. Mild multilevel loss of intervertebral disc height with endplate ossified, most prominent at L5-S1. Prominent bilateral facet arthropathy at L5-S1. Atherosclerotic calcifications. Moderate stool burden. XR/XR lumbar spine 2-3V IMPRESSION: Mild multilevel degenerative disc disease, most prominent at L5-S1 where there is bilateral facet arthropathy. Moderate stool burden.
--- NOTE | ~2020-10-03 | XR_ITS ---
EXAMINATION: XR CHEST CLINICAL INFORMATION: Chest mass. Back pain. COMPARISON: Most recent CTA chest dated 06/11/2018. TECHNIQUE: 2 views of the chest were obtained. FINDINGS: The lungs are clear. The cardiomediastinal silhouette is normal in size. There is no pleural effusion or pneumothorax. No acute osseous abnormality. Redemonstration of a right shoulder arthroplasty. XR/XR chest 2V IMPRESSION: No acute cardiopulmonary findings.
== END 2020-10-03 14:31 | disposition home or self-care (01) ==
LOC: HO.XRAY 14:30
PROVIDERS: PCP Internal Medicine; Visit Provider Internal Medicine
DX: R22.2 Localized swelling, mass and lump, trunk (principal); M54.41 Lumbago with sciatica, right side; M54.42 Lumbago with sciatica, left side
CPT/HCPCS: 71046; 72100

== ENCOUNTER 2020-10-04 14:29 | Outpatient (REF) | payer OTHER, SELFPAY | END 2020-10-04 14:30 | disposition home or self-care (01) | LOC: HO.BBR 14:29 | PROVIDERS: PCP Internal Medicine; Visit Provider Internal Medicine Medical Oncology | DX: D75.1 Secondary polycythemia (principal) | CPT/HCPCS: 85014; 85018; 99195 ==

== ENCOUNTER → 2020-10-09 08:09 | Outpatient (BNVA) | payer OTHER, SELFPAY | PROVIDERS: PCP Internal Medicine; Visit Provider Orthopaedic Surgery ==

== ENCOUNTER → 2020-10-11 14:17 | Outpatient (BNVA) | payer OTHER, SELFPAY | PROVIDERS: PCP Internal Medicine; Visit Provider Anesthesiology ==

== ENCOUNTER → 2020-11-21 10:15 | Outpatient (BNVA) | payer OTHER, SELFPAY | PROVIDERS: PCP Internal Medicine; Referring Provider Internal Medicine; Visit Provider Internal Medicine Gastroenterology ==

== ENCOUNTER 2020-11-21 11:36 | Outpatient (REF) | payer OTHER, SELFPAY ==
[2020-11-21 12:11] LABS: MANUAL DIFF FLAG NO
[2020-11-21 12:59] LABS: Basophils Absolute Auto 0.1 X10*3/uL (0.0-0.2); Basophils Percent Auto 0.9 % (0-2); Eosinophils Absolute Auto 0.6 X10*3/uL (0.0-0.4); Eosinophils Percent Auto 5.2 % (0-4); Hematocrit 43.4 % (37-47); Hemoglobin 12.9 g/dl (12.0-16.0); Imm Gran Abs Auto 0.05 X10*3/uL (0.00-0.03); Imm Gran Pct Auto 0.5 % (0.0-0.4); Lymphocytes Absolute Auto 3.4 X10*3/uL (1.2-4.9); Lymphocytes Percent Auto 30.7 % (20-40); Mean Corpuscular HGB Conc 29.7 g/dl (31.0-35.0); Mean Corpuscular Hemoglobin 22.9 pg (27.0-33.0); Mean Corpuscular Volume 77.1 fL (80-98); Mean Platelet Volume 9.7 fL (9.4-12.3); Monocytes Absolute Auto 0.7 X10*3/uL (0.1-1.2); Monocytes Percent Auto 6.1 % (2-11); Neutrophils Absolute Auto 6.2 X10*3/uL (2.0-8.3); Neutrophils Percent Auto 56.6 % (45-73); Platelet Count 326 X10*3/uL (160-400); Red Blood Count 5.63 X10*6/uL (4.20-5.50); Red Cell Distribution Width 17.7 % (11.0-16.0)
[2020-11-21 13:02] LABS: INTERNATIONAL NORM RATIO 1.1 (0.9-1.1); Prothrombin Time 12.7 SEC (9.9-13.0)
[2020-11-21 13:40] LABS: Erythrocyte Sedimentation Rate 23 MM/HR (0-20)
[2020-11-21 13:41] LABS: Appearance Urine CLEAR; Color Urine YELLOW; Glucose Urine UA >=1000 MG/DL (NEG); Leukocyte Esterase Urine NEG (NEG); Nitrite Urine NEG (NEG); Urine Blood NEG (NEG); Urine Ketones 5 MG/DL (NEG); Urine Protein NEG (NEG-TRACE)
[2020-11-21 13:42] LABS: Alanine Aminotransferase 18 U/L (0-31); Alkaline Phosphatase 96 U/L (39-117); Anion Gap 15 (12-20); Aspartate Amino Transferase 15 U/L (5-31); Bilirubin Total 0.3 mg/dL (0.0-1.0); Blood Urea Nitrogen 11 mg/dL (9-16); Calcium 9.3 mg/dL (8.4-10.2); Carbon Dioxide 27 mmol/L (22-29); Chloride 101 mmol/L (96-108); Estimated Glomerular Filt Rate > 60; Glucose Random 285 mg/dL (60-115); Iron 36 mcg/dL (30-160); Percent Iron Saturation 8 % (15-50); Sodium 138 mmol/L (135-145); Total Iron Binding Capacity 456 mcg/dL (228-428); Total Protein 7.1 g/dL (6.5-8.0); Unsaturated Iron Binding 420 ug/dL
[2020-11-21 13:49] LABS: Squamous Epithelial Cell Urine 2+ /LPF
[2020-11-21 13:50] LABS: WBC Urine 0-2 /HPF (0-4)
[2020-11-21 13:51] LABS: RBC Urine 0 /HPF (0)
[2020-11-21 13:53] LABS: Vitamin B12 515 pg/mL (200-900)
[2020-11-21 14:03] LABS: Ferritin 12 ng/mL (10-250)
[2020-11-22 07:58] LABS: HBsAGNum1 0.16 S/CO (0.00-0.99); Hepatitis A Antibody IgM 0.13 Index (0-0.79); Hepatitis B Surface Antigen Negative (Negative); ~HepC Num1 0.06 S/CO (0.00-0.79); ~Hepatitis A Antibody IgM Nonreactive (Nonreactive); ~Hepatitis C Antibody Nonreactive (Nonreactive)
[2020-11-22 08:03] LABS: HBS Num1 0.62 mIU/mL (0-7.99); HBc Num1 0.04 S/CO (0.00-0.79); Hepatitis B Core Antibody Nonreactive (Nonreactive); ~Hepatitis B Surface Antibody NONREACTIVE (Nonreactive)
[2020-11-23 02:36] LABS: IgA 224 mg/dL (47-310); IgG 1110 mg/dL (600-1640); IgM 72 mg/dL (50-300)
[2020-11-24 09:16] LABS: Gliadin Deamidated IgA Ab 45.3 U/mL; Gliadin Deamidated IgG Ab <1.0 U/mL; Transglutaminase Ab IgG <1.0 U/mL; Transglutaminase IgA <1.0 U/mL
[2020-11-24 17:35] LABS: Histamine Plasma 1.7 ng/mL (< OR = 1.8)
[2020-11-25 05:41] LABS: Alpha 1 Anti-trypsin 171 mg/dL (83-199)
== END 2020-11-21 11:37 | disposition home or self-care (01) ==
LOC: HO.LAB 11:36
PROVIDERS: PCP Internal Medicine; Visit Provider Internal Medicine Gastroenterology
DX: D75.1 Secondary polycythemia (principal); K75.81 Nonalcoholic steatohepatitis (NASH); M06.9 Rheumatoid arthritis, unspecified; M35.00 Sjogren syndrome, unspecified; R30.0 Dysuria
CPT/HCPCS: 36415; 80053; 81001; 82103; 82607; 82728; 82746; 82784; 83088; 83516; 83520; 83540; 84443; 85025; 85610; 85652; 86003; 86704; 86706; 86709; 86803; 87340

== ENCOUNTER 2020-11-28 17:01 | Emergency (ER) | payer OTHER, SELFPAY ==
[2020-11-28 17:09] VITALS: BP 149/68; BP 190/100; PULSE 88; PULSE 90; RESP 22; TEMP 36.8; O2SAT 95; BMI 33.3
--- NOTE | 2020-11-28 17:21 | ED_ITS ---
HPI - Abdominal Pain General Chief Complaint: Abdominal Pain Stated Complaint: abd pain, bloody stools Time Seen by Provider: 11/28/20 17:15 History of Present Illness HPI narrative: Patient is 60 years old with a history of rheumatoid arthritis history of fibromyalgia. Currently on Voltaren. Patient takes it on a daily basis. History of noticing dark stool. Having abdominal pain over the left upper quadrant. Worse in the last week. Patient from home. Had a CT scan done at [facility] approximately 1-[address] sheikh note there was no gross perforation abscess noted. No fever no chills. No cough no congestion or upper respiratory symptom that is new. Patient received 2 doses of Coronavirus vaccine. Patient is from home. Related Data Home Medications Medication Instructions Recorded Confirmed Ventolin HFA 09/27/20 10/11/20 albuterol sulfate 90 mcg/actuation 2 puff PO Q6H 09/27/20 10/11/20 aerosol inhaler ammonium lactate 12 % topical cream 1 appl TOPICAL DAILY 09/27/20 10/11/20 aspirin 325 mg tablet 325 mg PO 0 09/27/20 10/11/20 aspirin 325 mg tablet 325 mg PO 1230 09/27/20 10/11/20 cyclobenzaprine 5 mg tablet 5 mg PO BID PRN 09/27/20 10/11/20 diclofenac sodium 75 mg 75 mg PO DAILY PRN 09/27/20 10/11/20 tablet,delayed release hydroxychloroquine 200 mg tablet 200 mg PO DAILY 09/27/20 10/11/20 hyoscyamine sulfate 0.125 mg tablet 0.125 mg PO DAILY PRN 09/27/20 10/11/20 insulin lispro 100 unit/mL 20 unit SUBCUT QIDWMHS 09/27/20 10/11/20 subcutaneous pen (Humalog KwikPen (U-100) Insulin) loratadine 10 mg tablet 10 mg PO 0 09/27/20 10/11/20 loratadine 10 mg tablet 10 mg PO 1230 09/27/20 10/11/20 magnesium oxide 400 mg PO DAILY 09/27/20 10/11/20 metformin 1,000 mg tablet 1,000 mg PO 0030 09/27/20 10/11/20 metformin 1,000 mg tablet 1,000 mg PO 1230 09/27/20 10/11/20 montelukast 10 mg tablet 10 mg PO 0030 09/27/20 10/11/20 morphine 15 mg tablet,extended 15 mg PO 1230 09/27/20 10/11/20 release multivitamin 1 tab PO DAILY 09/27/20 10/11/20 mupirocin calcium 2 % topical cream 1 appl TOPICAL DAILY PRN 09/27/20 10/11/20 naloxone 0.4 mg/mL injection 0.4 mg INTRANASAL NEEDED PRN 09/27/20 10/11/20 solution pantoprazole 40 mg tablet,delayed 40 mg PO 1230 09/27/20 10/11/20 release oxycodone 10 mg tablet 10 mg PO BID 10/11/20 10/11/20 rzqmcfc-utndjrvaqj-HAF-caffeine 30 1 cap PO Q4H PRN 11/21/20 mg-50 mg-325 mg-40 mg capsule (Butalbital Compound with Codeine) diazepam 2 mg tablet 2 mg PO BEDTIME PRN 11/21/20 Previous Rx's Medication Instructions Recorded morphine 30 mg tablet,extended 30 mg PO Q12H 28 Days #56 tab 10/11/20 release oxycodone 5 mg tablet 5 mg PO Q6H PRN 28 Days #112 tab 10/11/20 sodium,potassium,mag sulfates 17.5 See Rx Instructions PO .COMPLEX 11/21/20 gram-3.13 gram-1.6 gram oral soln #354 ml (Suprep Bowel Prep Kit) Allergies Allergy/AdvReac Type Severity Reaction Status Date / Time azithromycin [AZITHROMYCIN] Allergy Severe DIFFICULTY Verified 11/21/20 10:24 BREATHING acetaminophen [From TYLENOL] Allergy Unknown ITCHING Verified 11/21/20 10:24 adhesive tape [ADHESIVE TAPE] Allergy Unknown RASH Verified 11/21/20 10:24 atorvastatin [From LIPITOR] Allergy Unknown DIFF Verified 11/21/20 10:24 BREATHING gentamicin [GENTAMICIN] Allergy Unknown RASH Verified 11/21/20 10:24 haloperidol [From HALDOL] Allergy Unknown GI ISSUES Verified 11/21/20 10:24 prasterone (DHEA) [From DHEA] Allergy Unknown CARDIAC Verified 11/21/20 10:24 ISSUES sumatriptan [From IMITREX] Allergy Unknown DIFF Verified 11/21/20 10:24 BREATHING varenicline [From CHANTIX] Allergy Unknown SEIZURE Verified 11/21/20 10:24 adalimumab [From Humira] Allergy Rash Verified 11/21/20 10:24 ketorolac [From TORADOL] AdvReac Unknown Muscle Verified 11/21/20 10:24 cramps dust Allergy Severe Difficulty Uncoded 11/21/20 10:24 Breathing Review of Systems Review of Systems Positive abdominal pain Positive dark stool All systems reviewed otherwise negative Physical Exam Vital Signs: Vital Signs: Last Vital Signs Temp 97.7 F 11/28/20 20:16 Pulse 70 11/28/20 20:16 Resp 18 11/28/20 20:16 BP 146/70 H 11/28/20 20:16 Pulse Ox 96 11/28/20 20:16 Body Mass Index 33.3 Appearance: Alert. Oriented X3. No acute distress. Eyes: Pupils equal, round and reactive to light. ENT: Pharynx normal. Neck: Normal inspection. Neck supple. No lymph nodes noted. No crepitus CVS: Normal heart rate and rhythm. Pulses normal. Normal S1 and S2 Respiratory: No respiratory distress. Breath sounds normal. No Wheezing. No rales Abdomen: Soft and nontender. No rigidity. No distention. good BS x4 Skin: Skin warm and dry. Normal skin color. Normal skin turgor. Extremities: No lower extremity edema. Neurovascular intact to all extremities. No Lacerations. No Rash Neuro: Oriented X 3. No motor deficit. No sensory deficit. Moving all extermities. No slurred speech MDM - Abdominal Pain MDM Narrative Medical decision making narrative: Patient had CT scan done earlier this week grossly negative per GI note. Patient's hemoglobin is stable. Rectal exam showed brown stool that is heme negative. There is no fecal impaction noted. Electrolytes unremarkable tolerated p.o.. Patient's sugar here in the emergency department was over 400. Given a dose of insulin some IV fluids sugars down to less than 300. Will discharge patient home have patient closely follow up on an outpatient basis Differential Diagnosis Differential diagnosis: Likely abdominal pain Medical Records Attestation: I reviewed the patient's medical records. Lab Data Attestation: I reviewed the patient's lab results. Result diagrams: 11/28/20 17:39 11/28/20 17:40 Labs: Lab Results 11/28/20 11/28/20 11/28/20 Range/Units 17:38 17:39 17:40 WBC 13.4 H (4.8-10.8) X10*3/uL RBC 6.08 H (4.20-5.50) X10*6/uL Hgb 14.1 (12.0-16.0) g/dl Hct 46.6 (37-47) % MCV 76.6 L (80-98) fL MCH 23.2 L (27.0-33.0) pg MCHC 30.3 L (31.0-35.0) g/dl RDW 17.9 H (11.0-16.0) % Plt Count 352 (160-400) X10*3/uL MPV 9.8 (9.4-12.3) fL Immature Gran % (Auto) 0.4 (0.0-0.4) % Neut % (Auto) 50.9 (45-73) % Lymph % (Auto) 36.9 (20-40) % Bradley % (Auto) 6.0 (2-11) % Eos % (Auto) 5.0 H (0-4) % Baso % (Auto) 0.8 (0-2) % Lymph # (Auto) 4.9 (1.2-4.9) X10*3/uL Bradley # (Auto) 0.8 (0.1-1.2) X10*3/uL Eos # (Auto) 0.7 H (0.0-0.4) X10*3/uL Baso # (Auto) 0.1 (0.0-0.2) X10*3/uL Abs Immat Gran (auto) 0.06 H (0.00-0.03) X10*3/uL Absolute Neuts (auto) 6.8 (2.0-8.3) X10*3/uL Absolute Nucleated RBC 0.000 (0.0-0.012) X10*3/uL Nucleated RBC % (auto) 0.0 (0.0-0.2) /100WBC Sodium 136 (135-145) mmol/L Potassium 5.0 (3.3-5.1) mmol/L Chloride 102 (96-108) mmol/L Carbon Dioxide 21 L (22-29) mmol/L Anion Gap 18 (12-20) BUN 11 (9-16) mg/dL Creatinine 0.86 (0.5-1.4) mg/dL Estim Creat Clear Calc 75.6 Estimated GFR > 60 POC Glucose (60-115) mg/dL Random Glucose 434 H* (60-115) mg/dL Calcium 9.3 (8.4-10.2) mg/dL Total Bilirubin 0.2 (0.0-1.0) mg/dL AST 24 D (5-31) U/L ALT 15 (0-31) U/L Alkaline Phosphatase 92 (39-117) U/L Total Protein 7.7 (6.5-8.0) g/dL Albumin 4.2 (3.5-5.0) g/dL Lipase 37 (8-78) U/L Urine Color YELLOW Urine Appearance HAZY Urine pH 5.5 (5.0-8.0) Ur Specific [place] 1.020 (1.005-1.025) Urine Protein NEG (NEG-TRACE) MG/DL Urine Glucose (UA) >=1000 H (NEG) MG/DL Urine Ketones NEG (NEG) MG/DL Urine Blood NEG (NEG) Urine Nitrite NEG (NEG) Ur Leukocyte Esterase NEG (NEG) Urine RBC 1-4 (0) /HPF Urine WBC 0 (0-4) /HPF Ur Squamous Epith Cells 1+ /LPF Urine Bacteria TRACE /LPF Urine Mucus 1+ /LPF Urine Yeast TRACE /HPF Stool Occult Blood (NEGATIVE) 11/28/20 11/28/20 11/28/20 Range/Units 18:05 20:04 21:01 WBC (4.8-10.8) X10*3/uL RBC (4.20-5.50) X10*6/uL Hgb (12.0-16.0) g/dl Hct (37-47) % MCV (80-98) fL MCH (27.0-33.0) pg MCHC (31.0-35.0) g/dl RDW (11.0-16.0) % Plt Count (160-400) X10*3/uL MPV (9.4-12.3) fL Immature Gran % (Auto) (0.0-0.4) % Neut % (Auto) (45-73) % Lymph % (Auto) (20-40) % Bradley % (Auto) (2-11) % Eos % (Auto) (0-4) % Baso % (Auto) (0-2) % Lymph # (Auto) (1.2-4.9) X10*3/uL Bradley # (Auto) (0.1-1.2) X10*3/uL Eos # (Auto) (0.0-0.4) X10*3/uL Baso # (Auto) (0.0-0.2) X10*3/uL Abs Immat Gran (auto) (0.00-0.03) X10*3/uL Absolute Neuts (auto) (2.0-8.3) X10*3/uL Absolute Nucleated RBC (0.0-0.012) X10*3/uL Nucleated RBC % (auto) (0.0-0.2) /100WBC Sodium (135-145) mmol/L Potassium (3.3-5.1) mmol/L Chloride (96-108) mmol/L Carbon Dioxide (22-29) mmol/L Anion Gap (12-20) BUN (9-16) mg/dL Creatinine (0.5-1.4) mg/dL Estim Creat Clear Calc Estimated GFR POC Glucose 316 H 280 H (60-115) mg/dL Random Glucose (60-115) mg/dL Calcium (8.4-10.2) mg/dL Total Bilirubin (0.0-1.0) mg/dL AST (5-31) U/L ALT (0-31) U/L Alkaline Phosphatase (39-117) U/L Total Protein (6.5-8.0) g/dL Albumin (3.5-5.0) g/dL Lipase (8-78) U/L Urine Color Urine Appearance Urine pH (5.0-8.0) Ur Specific [place] (1.005-1.025) Urine Protein (NEG-TRACE) MG/DL Urine Glucose (UA) (NEG) MG/DL Urine Ketones (NEG) MG/DL Urine Blood (NEG) Urine Nitrite (NEG) Ur Leukocyte Esterase (NEG) Urine RBC (0) /HPF Urine WBC (0-4) /HPF Ur Squamous Epith Cells /LPF Urine Bacteria /LPF Urine Mucus /LPF Urine Yeast /HPF Stool Occult Blood NEGATIVE (NEGATIVE) Discharge Plan Discharge Clinical Impression: Abdominal pain, Acute hyperglycemia Patient Disposition: Home, Self-Care Instructions: Abdominal Pain (ED), Diabetic Hyperglycemia (ED) Prescriptions: No Action aspirin 325 mg Tablet 325 mg PO 1230 RF: 0 aspirin 325 mg Tablet 325 mg PO 0030 RF: 0 naloxone [Narcan] 0.4 mg/mL Solution 0.4 mg intranasal NEEDED PRN (Reason: Opiate Reversal) RF: 0 pantoprazole 40 mg Tablet,Delayed Release (Dr/Ec) 40 mg PO 1230 RF: 0 hyoscyamine sulfate 0.125 mg Tablet 0.125 mg PO DAILY PRN (Reason: Muscle Pain) RF: 0 metformin 1,000 mg Tablet 1,000 mg PO 0030 RF: 0 metformin 1,000 mg Tablet 1,000 mg PO 1230 RF: 0 mupirocin calcium [Bactroban] 2 % Cream 1 appl TOPICAL DAILY PRN (Reason: Skin Irritation) RF: 0 diclofenac sodium [Voltaren] 75 mg Tablet,Delayed Release (Dr/Ec) 75 mg PO DAILY PRN (Reason: Pain) RF: 0 montelukast 10 mg Tablet 10 mg PO 0030 RF: 0 morphine 15 mg Tablet Extended Release 15 mg PO 1230 RF: 0 ammonium lactate 12 % Cream 1 appl TOPICAL DAILY RF: 0 hydroxychloroquine 200 mg Tablet 200 mg PO DAILY RF: 0 albuterol sulfate 90 mcg/actuation HFA aerosol inhaler 2 puff PO Q6H RF: 0 loratadine 10 mg Tablet 10 mg PO 0030 RF: 0 loratadine 10 mg Tablet 10 mg PO 1230 RF: 0 insulin lispro [Humalog KwikPen Insulin] 100 unit/mL Insulin Pen 20 unit SUBCUT QIDWMHS RF: 0 cyclobenzaprine [Flexeril] 5 mg Tablet 5 mg PO BID PRN (Reason: Pain) RF: 0 magnesium oxide 400 mg magnesium Tablet 400 mg PO DAILY RF: 0 Ventolin HFA RF: 0 multivitamin 1 tab PO DAILY RF: 0 diazepam 2 mg tablet 2 mg PO BEDTIME PRNRF: 0 [id number] [Butalbital Compound W/Codeine] 80-63-631-40 mg capsule 1 cap PO Q4H PRNRF: 0 Suprep Bowel Prep Kit 17.5-3.13-1.6 gram recon soln See Rx Instructions PO .COMPLEX Qty: 354 RF: 0 oxycodone 10 mg tablet 10 mg PO BID RF: 0 morphine 30 mg tablet extended release 30 mg PO Q12H 28 Days Qty: 56 RF: 0 oxycodone 5 mg tablet 5 mg PO Q6H PRN (Reason: pain) 28 Days Qty: 112 RF: 0 Referrals: Dottie Parker, CLASSIFICATION ANALYST [Primary Care Provider] - 2 days [facility] Past Medical History Attestation statement: The following information was validated with the patient. Medical History Asthma Boils Bursitis Chronic pain syndrome Chronic, continuous use of opioids COPD (chronic obstructive pulmonary disease) Diabetes Disc degeneration Eczema Fibromyalgia GERD (gastroesophageal reflux disease) Hx of difficult intubation longterm (current) use of opiate analgesic Osteoarthritis Osteoarthritis Osteoporosis Polycythemia Rheumatoid arthritis Rheumatoid arthritis Sjogrens syndrome Sjogrens syndrome Sleep apnea Smoker Surgical History History of bladder suspension procedure History of colonoscopy History of esophagogastroduodenoscopy (EGD) History of removal of cyst History of surgical removal of pilonidal cyst Hx of appendectomy Hx of cholecystectomy Hx of hysterectomy Hx of plastic surgery Hx of tonsillectomy Social History Social History Are you a primary post acute care nurse practitioner to a significant other at home: No Alcohol intake: never Cigarette Packs Per Day: 1 Cigarettes Per Day: 20.0 Years Smoked: 46 Advance Directives: No Advance Directives Information Provided: No Current occupational status: retired 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
[2020-11-28 17:44] LABS: MANUAL DIFF FLAG NO
[2020-11-28 17:45] LABS: Basophils Absolute Auto 0.1 X10*3/uL (0.0-0.2); Basophils Percent Auto 0.8 % (0-2); Eosinophils Absolute Auto 0.7 X10*3/uL (0.0-0.4); Hematocrit 46.6 % (37-47); Hemoglobin 14.1 g/dl (12.0-16.0); Imm Gran Abs Auto 0.06 X10*3/uL (0.00-0.03); Imm Gran Pct Auto 0.4 % (0.0-0.4); Lymphocytes Absolute Auto 4.9 X10*3/uL (1.2-4.9); Lymphocytes Percent Auto 36.9 % (20-40); Mean Corpuscular HGB Conc 30.3 g/dl (31.0-35.0); Mean Corpuscular Hemoglobin 23.2 pg (27.0-33.0); Mean Corpuscular Volume 76.6 fL (80-98); Mean Platelet Volume 9.8 fL (9.4-12.3); Monocytes Absolute Auto 0.8 X10*3/uL (0.1-1.2); Neutrophils Absolute Auto 6.8 X10*3/uL (2.0-8.3); Neutrophils Percent Auto 50.9 % (45-73); Platelet Count 352 X10*3/uL (160-400); Red Blood Count 6.08 X10*6/uL (4.20-5.50); Red Cell Distribution Width 17.9 % (11.0-16.0); White Blood Count 13.4 X10*3/uL (4.8-10.8)
[2020-11-28 17:46] LABS: Appearance Urine HAZY; Color Urine YELLOW; Glucose Urine UA >=1000 MG/DL (NEG); Leukocyte Esterase Urine NEG (NEG); Nitrite Urine NEG (NEG); PH 5.5 (5.0-8.0); Urine Blood NEG (NEG); Urine Ketones NEG (NEG); Urine Protein NEG (NEG-TRACE)
[2020-11-28] MEDS: 0.9 % Sodium Chloride 1,000 ML 999 ML IV ×2 (17:48)
[2020-11-28 17:51] LABS: Mucus Urine 1+ /LPF; Squamous Epithelial Cell Urine 1+ /LPF
[2020-11-28 17:52] LABS: Bacteria Urine TRACE /LPF; WBC Urine 0 /HPF (0-4)
[2020-11-28] MEDS: HYDROmorphone HCl 0.5 MG/0.5 ML SYRINGE IVPUSH (18:02)
[2020-11-28 18:11] LABS: Alanine Aminotransferase 15 U/L (0-31); Albumin Level 4.2 g/dL (3.5-5.0); Alkaline Phosphatase 92 U/L (39-117); Anion Gap 18 (12-20); Aspartate Amino Transferase 24 U/L (5-31); Bilirubin Total 0.2 mg/dL (0.0-1.0); Blood Urea Nitrogen 11 mg/dL (9-16); Calcium 9.3 mg/dL (8.4-10.2); Carbon Dioxide 21 mmol/L (22-29); Chloride 102 mmol/L (96-108); Creatinine Clr Calc Pharmacy 75.6; Estimated Glomerular Filt Rate > 60; Glucose Random 434 mg/dL (60-115); Lipase 37 U/L (8-78); Sodium 136 mmol/L (135-145); Total Protein 7.7 g/dL (6.5-8.0)
[2020-11-28 18:36] LABS: OBS Int Ctl Valid YES; OBS1 NEGATIVE (NEGATIVE)
[2020-11-28] MEDS: Insulin Regular, Human 100 UNIT/ML 3 ML VIAL IVPUSH (19:04)
[2020-11-28 20:09] LABS: Glucose, Whole Blood 316 mg/dL (60-115)
[2020-11-28 20:16] VITALS: BP 146/70; PULSE 70; RESP 18; TEMP 36.5; O2SAT 96
[2020-11-28 21:05] LABS: Glucose, Whole Blood 280 mg/dL (60-115)
== END 2020-11-28 21:16 | disposition home or self-care (01) ==
PROVIDERS: Emergency Provider Emergency Medicine Emergency Medical Services; PCP Nurse Practitioner Pediatrics
DX: R10.9 Unspecified abdominal pain (principal); E11.65 Type 2 diabetes mellitus with hyperglycemia; M79.7 Fibromyalgia; F17.210 Nicotine dependence, cigarettes, uncomplicated; Z79.4 Long term (current) use of insulin; Z79.899 Other long term (current) drug therapy; Z71.6 Tobacco abuse counseling
CPT/HCPCS: 36415; 80053; 81001; 82272; 82947; 83690; 85025; 99284; J1170

== ENCOUNTER 2020-12-14 07:34 | Day surgery (SDC) | payer OTHER, SELFPAY ==
--- NOTE | 2020-12-13 10:57 | P.CONAN_ITS ---
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 (Acute) Osteoporosis (Acute) Sjogrens syndrome (Acute) Rheumatoid arthritis (Acute) Osteoarthritis (Acute) Diabetes (Acute) Fibromyalgia (Acute) Chronic, continuous use of opioids (Acute) Erythrocytosis (Acute) Encounter for other preprocedural examination (Acute) Colon cancer screening (Acute) Past Medical History Medical History Asthma Boils Bursitis Chronic pain syndrome Chronic, continuous use of opioids COPD (chronic obstructive pulmonary disease) Diabetes Disc degeneration Eczema Fibromyalgia GERD (gastroesophageal reflux disease) Hx of difficult intubation longterm (current) use of opiate analgesic Osteoarthritis Osteoarthritis Osteoporosis Polycythemia Rheumatoid arthritis Rheumatoid arthritis Sjogrens syndrome Sjogrens syndrome Sleep apnea Smoker Surgical History Surgical History History of bladder suspension procedure History of colonoscopy History of esophagogastroduodenoscopy (EGD) History of removal of cyst History of surgical removal of pilonidal cyst Hx of appendectomy Hx of cholecystectomy Hx of hysterectomy Hx of plastic surgery Hx of tonsillectomy Social History Social History Are you a primary career services assistant to a significant other at home: No Alcohol intake: never Patient Tobacco Use Status: Current everyday Tobacco user Cigarette Packs Per Day: 1 Cigarettes Per Day: 20.0 Years Smoked: 46 Use of substances other than those prescribed or required for medical reasons: No Are you DNR?: No Advance Directives: No Advance Directives Information Provided: Yes Current occupational status: retired 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 Meds Allergies Allergy/AdvReac Type Severity Reaction Status Date / Time azithromycin [AZITHROMYCIN] Allergy Severe DIFFICULTY Verified 11/21/20 10:24 BREATHING acetaminophen [From TYLENOL] Allergy Unknown ITCHING Verified 11/21/20 10:24 adhesive tape [ADHESIVE TAPE] Allergy Unknown RASH Verified 11/21/20 10:24 atorvastatin [From LIPITOR] Allergy Unknown DIFF Verified 11/21/20 10:24 BREATHING gentamicin [GENTAMICIN] Allergy Unknown RASH Verified 11/21/20 10:24 haloperidol [From HALDOL] Allergy Unknown GI ISSUES Verified 11/21/20 10:24 prasterone (DHEA) [From DHEA] Allergy Unknown CARDIAC Verified 11/21/20 10:24 ISSUES sumatriptan [From IMITREX] Allergy Unknown DIFF Verified 11/21/20 10:24 BREATHING varenicline [From CHANTIX] Allergy Unknown SEIZURE Verified 11/21/20 10:24 adalimumab [From Humira] Allergy Rash Verified 11/21/20 10:24 ketorolac [From TORADOL] AdvReac Unknown Muscle Verified 11/21/20 10:24 cramps dust Allergy Severe Difficulty Uncoded 11/21/20 10:24 Breathing Home Medications Medication Instructions Recorded Confirmed Last Taken Type Ventolin HFA 09/27/20 10/11/20 09/26/20 History albuterol sulfate 90 mcg/actuation 2 puff PO Q6H 09/27/20 10/11/20 09/26/20 History aerosol inhaler ammonium lactate 12 % topical cream 1 appl TOPICAL DAILY 09/27/20 10/11/20 09/26/20 History aspirin 325 mg tablet 325 mg PO 0030 09/27/20 10/11/20 09/26/20 History aspirin 325 mg tablet 325 mg PO 1230 09/27/20 10/11/20 09/26/20 History cyclobenzaprine 5 mg tablet 5 mg PO BID PRN 09/27/20 10/11/20 09/26/20 History diclofenac sodium 75 mg 75 mg PO DAILY PRN 09/27/20 10/11/20 09/26/20 History tablet,delayed release hydroxychloroquine 200 mg tablet 200 mg PO DAILY 09/27/20 10/11/20 09/26/20 History hyoscyamine sulfate 0.125 mg tablet 0.125 mg PO DAILY PRN 09/27/20 10/11/20 09/26/20 History insulin lispro 100 unit/mL 20 unit SUBCUT QIDWMHS 09/27/20 10/11/20 09/26/20 History subcutaneous pen (Humalog KwikPen (U-100) Insulin) loratadine 10 mg tablet 10 mg PO 0030 09/27/20 10/11/20 09/26/20 History loratadine 10 mg tablet 10 mg PO 1230 09/27/20 10/11/20 09/26/20 History magnesium oxide 400 mg PO DAILY 09/27/20 10/11/20 09/26/20 History metformin 1,000 mg tablet 1,000 mg PO 0030 09/27/20 10/11/20 09/26/20 History metformin 1,000 mg tablet 1,000 mg PO 1230 09/27/20 10/11/20 09/26/20 History montelukast 10 mg tablet 10 mg PO 0030 09/27/20 10/11/20 09/26/20 History morphine 15 mg tablet,extended 15 mg PO 0 09/27/20 10/11/20 09/26/20 History release multivitamin 1 tab PO DAILY 09/27/20 10/11/20 09/26/20 History mupirocin calcium 2 % topical cream 1 appl TOPICAL DAILY PRN 09/27/20 10/11/20 09/26/20 History naloxone 0.4 mg/mL injection 0.4 mg INTRANASAL NEEDED PRN 09/27/20 10/11/20 09/26/20 History solution pantoprazole 40 mg tablet,delayed 40 mg PO 0 09/27/20 10/11/20 09/26/20 History release oxycodone 10 mg tablet 10 mg PO BID 10/11/20 10/11/20 Unknown History rhyddsx-pnzhjzxsra-GHX-caffeine 30 1 cap PO Q4H PRN 11/21/20 Unknown History mg-50 mg-325 mg-40 mg capsule (Butalbital Compound with Codeine) diazepam 2 mg tablet 2 mg PO BEDTIME PRN 11/21/20 Unknown History Exam Exam Date and Time: December 13, 2020 1057 Pertinent Lab Results Pertinent Lab Results: Laboratory Tests 11/28/20 11/28/20 17:39 17:40 WBC 13.4 H Hgb 14.1 Hct 46.6 Plt Count 352 Sodium 136 Potassium 5.0 Chloride 102 Carbon Dioxide 21 L BUN 11 Creatinine 0.86 Assessment and Plan Assessment Anesthesia Assessment: Chart Reviewed Documented by User: Aston Curiel MD 12/14/20 10:20 HPI - Anesthesia Eval Consult details Narrative: 60yo F for Upper Endoscopy and Colonoscopy *H/O DI* Chronic opioids *Multiple Med Allergies* [facility]icult [facility] Past Medical History Medical History Asthma Boils Bursitis Chronic pain syndrome Chronic, continuous use of opioids COPD (chronic obstructive pulmonary disease) Diabetes Disc degeneration Eczema Fibromyalgia GERD (gastroesophageal reflux disease) Hx of difficult intubation 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 Osteoarthritis Osteoarthritis Osteoporosis Polycythemia Rheumatoid arthritis Rheumatoid arthritis Sjogrens syndrome Sjogrens syndrome Sleep apnea Smoker Family History Family history of problems with anesthesia: No Surgical History Surgical History History of bladder suspension procedure History of colonoscopy History of esophagogastroduodenoscopy (EGD) History of removal of cyst History of surgical removal of pilonidal cyst Hx of appendectomy Hx of cholecystectomy Hx of hysterectomy Hx of plastic surgery Hx of tonsillectomy History of Problems with Anesthesia: No Social History Social History Are you a primary career services assistant to a significant other at home: No Alcohol intake: never Patient Tobacco Use Status: Current everyday Tobacco user Cigarette Packs Per Day: 1 Cigarettes Per Day: 20.0 Years Smoked: 46 Use of substances other than those prescribed or required for medical reasons: No Are you DNR?: No Advance Directives: No Advance Directives Information Provided: Yes Current occupational status: retired 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 Meds Allergies Allergy/AdvReac Type Severity Reaction Status Date / Time azithromycin [AZITHROMYCIN] Allergy Severe DIFFICULTY Verified 11/21/20 10:24 BREATHING acetaminophen [From TYLENOL] Allergy Unknown ITCHING Verified 11/21/20 10:24 adhesive tape [ADHESIVE TAPE] Allergy Unknown RASH Verified 11/21/20 10:24 atorvastatin [From LIPITOR] Allergy Unknown DIFF Verified 11/21/20 10:24 BREATHING gentamicin [GENTAMICIN] Allergy Unknown RASH Verified 11/21/20 10:24 haloperidol [From HALDOL] Allergy Unknown GI ISSUES Verified 11/21/20 10:24 prasterone (DHEA) [From DHEA] Allergy Unknown CARDIAC Verified 11/21/20 10:24 ISSUES sumatriptan [From IMITREX] Allergy Unknown DIFF Verified 11/21/20 10:24 BREATHING varenicline [From CHANTIX] Allergy Unknown SEIZURE Verified 11/21/20 10:24 adalimumab [From Humira] Allergy Rash Verified 11/21/20 10:24 ketorolac [From TORADOL] AdvReac Unknown Muscle Verified 11/21/20 10:24 cramps dust Allergy Severe Difficulty Uncoded 11/21/20 10:24 Breathing Home Medications Medication Instructions Recorded Confirmed Last Taken Type Ventolin HFA 09/27/20 10/11/20 09/26/20 History albuterol sulfate 90 mcg/actuation 2 puff PO Q6H 09/27/20 10/11/20 09/26/20 History aerosol inhaler ammonium lactate 12 % topical cream 1 appl TOPICAL DAILY 09/27/20 10/11/20 09/26/20 History aspirin 325 mg tablet 325 mg PO 0030 09/27/20 10/11/20 09/26/20 History aspirin 325 mg tablet 325 mg PO 1230 09/27/20 10/11/20 09/26/20 History cyclobenzaprine 5 mg tablet 5 mg PO BID PRN 09/27/20 10/11/20 09/26/20 History diclofenac sodium 75 mg 75 mg PO DAILY PRN 09/27/20 10/11/20 09/26/20 History tablet,delayed release hydroxychloroquine 200 mg tablet 200 mg PO DAILY 09/27/20 10/11/20 09/26/20 History hyoscyamine sulfate 0.125 mg tablet 0.125 mg PO DAILY PRN 09/27/20 10/11/20 09/26/20 History insulin lispro 100 unit/mL 20 unit SUBCUT QIDWMHS 09/27/20 10/11/20 09/26/20 History subcutaneous pen (Humalog KwikPen (U-100) Insulin) loratadine 10 mg tablet 10 mg PO 0030 09/27/20 10/11/20 09/26/20 History loratadine 10 mg tablet 10 mg PO 1230 09/27/20 10/11/20 09/26/20 History magnesium oxide 400 mg PO DAILY 09/27/20 10/11/20 09/26/20 History metformin 1,000 mg tablet 1,000 mg PO 0030 09/27/20 10/11/20 09/26/20 History metformin 1,000 mg tablet 1,000 mg PO 1230 09/27/20 10/11/20 09/26/20 History montelukast 10 mg tablet 10 mg PO 0030 09/27/20 10/11/20 09/26/20 History morphine 15 mg tablet,extended 15 mg PO 1230 09/27/20 10/11/20 09/26/20 History release multivitamin 1 tab PO DAILY 09/27/20 10/11/20 09/26/20 History mupirocin calcium 2 % topical cream 1 appl TOPICAL DAILY PRN 09/27/20 10/11/20 09/26/20 History naloxone 0.4 mg/mL injection 0.4 mg INTRANASAL NEEDED PRN 09/27/20 10/11/20 09/26/20 History solution pantoprazole 40 mg tablet,delayed 40 mg PO 0 09/27/20 10/11/20 09/26/20 History release oxycodone 10 mg tablet 10 mg PO BID 10/11/20 10/11/20 Unknown History ykjxrhf-nauzrfzrxh-WPY-caffeine 30 1 cap PO Q4H PRN 11/21/20 Unknown History mg-50 mg-325 mg-40 mg capsule (Butalbital Compound with Codeine) diazepam 2 mg tablet 2 mg PO BEDTIME PRN 11/21/20 Unknown History Exam Airway Mallampati Class: III TM Dist: >3cm Neck ROM: Full Assessment and Plan Assessment Anesthesia Assessment: Anesthesia Plan Discussed Final Anesthetic Review Family History of Problems with Anesthesia: No History of Problems with Anesthesia: No NPO: Yes ASA Class: III Final Preanesthetic Review: No Changes in Pt Med Stat, Meds/Allgs Chart Reviewed, Consent Obtained/Reviewed and Anes Risks/Benef Reviewed Patient Risk: High Procedure Risk: Low Anesthetic Plan Anesthetic Plan: MAC: Disposition: Standard PACU
[2020-12-14 08:40] VITALS: BP 143/81; PULSE 85; RESP 18; TEMP 36.7; O2SAT 96; BMI 32.8
[2020-12-14 08:47] LABS: Glucose, Whole Blood 252 mg/dL (60-115)
--- NOTE | 2020-12-14 08:51 | MHC.SHP ---
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 Osteoarthritis Oste) History of Previous Operations: Relevant previous surgery/procedure and date(s) (History of bladder suspension procedure History of colonoscopy History of esophagogastroduodenoscopy (EGD) History of removal of cyst History of surgical removal of pilonidal cyst Hx of appendectomy Hx of cholecystectomy Hx of hysterectomy Hx of plastic surgery Hx of tonsillectomy) Allergies: Allergies Allergy/AdvReac Type Severity Reaction Status Date / Time azithromycin [AZITHROMYCIN] Allergy Severe DIFFICULTY Verified 11/21/20 10:24 BREATHING acetaminophen [From TYLENOL] Allergy Unknown ITCHING Verified 11/21/20 10:24 adhesive tape [ADHESIVE TAPE] Allergy Unknown RASH Verified 11/21/20 10:24 atorvastatin [From LIPITOR] Allergy Unknown DIFF Verified 11/21/20 10:24 BREATHING gentamicin [GENTAMICIN] Allergy Unknown RASH Verified 11/21/20 10:24 haloperidol [From HALDOL] Allergy Unknown GI ISSUES Verified 11/21/20 10:24 prasterone (DHEA) [From DHEA] Allergy Unknown CARDIAC Verified 11/21/20 10:24 ISSUES sumatriptan [From IMITREX] Allergy Unknown DIFF Verified 11/21/20 10:24 BREATHING varenicline [From CHANTIX] Allergy Unknown SEIZURE Verified 11/21/20 10:24 adalimumab [From Humira] Allergy Rash Verified 11/21/20 10:24 ketorolac [From TORADOL] AdvReac Unknown Muscle Verified 11/21/20 10:24 cramps dust Allergy Severe Difficulty Uncoded 11/21/20 10:24 Breathing Review of Systems Sugical H&P ROS: Negative: Constitution, Cardiovascular, Respiratory, Neurological, Psychiatric, Hem-Onc, Allergic/Immunologic, Gastrointestinal, Genitourinary, Musculoskeletal, Integumentary, Endocrine and Eyes/Ears/Nose/Throat Exam Surgical H&P Exam: Normal: HEENT, Normal: Heart, Normal: Lungs, Normal: Extremities, Normal: Abdomen, Normal: Skin and Normal: Neurological Plan Diagnosis/Plan: Unchanged I have reviewed the history and physical and performed a pertinent physical examination on my patient. No changes have occurred unless specified.
[2020-12-14] MEDS: Lactated Ringers 1,000 ML 100 ML IVCONT (08:52)
--- NOTE | 2020-12-14 08:56 | PC.NURSE ---
Chronic cough, chest with diminished bases,, no wheezing. Dr Curiel aware and at bedside. Resp treatment not given pre-procedure per Dr Curiel.
--- NOTE | 2020-12-14 09:53 | P.OP_ITS ---
Operative Note Operative Note Date of Service: 12/14/20 Narrative: Operative Information Procedure Description: EGD, Colonoscopy FLEXIBLE TRANSORAL UPPER GASTROINTESTINAL ENDOSCOPY AND COLONOSCOPY PROCEDURE NOTE UPPER ENDOSCOPY Consent: Indications for the procedure and potential complications of bleeding, perforation, reaction to medications and missed diagnosis were discussed with the patient and informed consent was obtained. Instrument: Olympus GIF H 190 J mid size upper endoscope Monitoring: Vital signs and clinical assessment, continuous EKG monitoring, Pulse oximetry, Carbon Dioxide monitoring and blood pressure monitoring were done throughout the procedure. Procedure: The patient was placed in the left lateral decubitis position and pre-procedure medications were administered and a bite block was placed. The endoscope was inserted into the mouth and advanced under direct vision to the third part of duodenum. A careful inspection was made as the upper endoscope was withdrawn including a retroflexed examination of the proximal stomach; Findings and interventions are described below. Findings: Larynx:normal Esophagus: GE junction at 41 cm, diaphragm hiatus at 41 cm, islands of pink salmon tissue noted at GEJ suspicious for barretts esophagus, bx taken from GEJ and random esophagus. x 2 esophageal inlet patches noted at proximal esophagus which are benign findings. Stomach: Nodular mucosa with some areas of atrophy. Biopsies were obtained. Grade 2 flap valve on retroflexed examination of the cardia. Duodenum: Normal bulb and descending duodenum, bx taken Intervention: Biopsies as noted above COLONOSCOPY Instrument: Olympus variable stiffness pediatric scope 190L Colonoscopy Monitoring: Vital signs and clinical assessment, continuous EKG monitoring, Pulse oximetry, Carbon Dioxide monitoring and blood pressure monitoring were done throughout the procedure. Colon withdrawal time was 14 minutes. Procedure: The patient was placed in the left lateral decubitis position and pre-procedure medications were administered. After a digital rectal examination of the ano-rectum, the video colonoscope was inserted into the rectum and advanced through the colon to the cecum/TI. The colonoscope was slowly withdrawn in a retrograde panoramic fashion and the colon mucosa was carefully examined including a retroflexed view of the rectum. Findings and interventions are described below. Procedure Difficulty: easy Findings: external hemorrhoids, small Terminal Ileum-normal, bx taken bx taken from right colon and left colon and rectum in separate jars Cecum: granular appearance with mucosal edema Ascending Colon:granular appearance Transverse Colon -normal Descending Colon:normal Sigmoid Colon: normal Rectum: Retroflexion with moderate sized internal hemorrhoids, grade I Anorectum - normal, small external hemorrhoids Colon preparation: [place] Bowel Preparation Scale Right colon; 2 Transverse colon: 2 Left colon; 1 (0 = Unprepared colon segment with mucosa not seen due to solid stool that cannot be cleared. 1 = Portion of mucosa of the colon segment seen, but other areas of the colon segment not well seen due to staining, residual stool and/or opaque liquid. 2 = Minor amount of residual staining, small fragments of stool and/or opaque liquid, but mucosa of colon segment seen well. 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
--- NOTE | 2020-12-14 09:53 | PM.OP ---
Brief Operative Note Date of Service: 12/14/20 Pre-op diagnosis: abdo pain,melena, pos celiac ab test Post-op diagnosis: same Procedure: see op note Surgeon: Traci Caldwell MD Anesthesia: MAC Was an Lace Roller used for this Procedure?: No Estimated blood loss (mL): 0 Condition: stable Disposition: PACU
[2020-12-14 10:29] VITALS: BP 138/79; PULSE 81; RESP 16; TEMP 36.6
[2020-12-14 10:45] VITALS: BP 145/91; PULSE 77; RESP 16; TEMP 36.6; O2SAT 95
[2020-12-14 11:06] VITALS: RESP 16
[2020-12-14] MEDS: Morphine Sulfate 2 MG/ML CARTRIDGE 1 MG IVPUSH (11:06)
--- NOTE | 2020-12-14 11:10 | PC.NURSE ---
PATIENT GIVEN MORPHINE 1 MG IV FOR 9/[address] GUEVARA[address]
[2020-12-14 11:22] VITALS: BP 148/83; PULSE 78; RESP 16; O2SAT 96
== END 2020-12-14 11:46 | disposition home or self-care (01) ==
LOC: HO.SSS 07:34
PROVIDERS: PCP Nurse Practitioner Pediatrics; Visit Provider Internal Medicine Gastroenterology
PROC: (CPT 45380; principal; 2020-12-14 09:20)
DX: K92.1 Melena (principal); K52.9 Noninfective gastroenteritis and colitis, unspecified; K64.0 First degree hemorrhoids; K64.4 Residual hemorrhoidal skin tags; K22.70 Barrett's esophagus without dysplasia; K29.50 Unspecified chronic gastritis without bleeding; K44.9 Diaphragmatic hernia without obstruction or gangrene; K21.9 Gastro-esophageal reflux disease without esophagitis; Q39.8 Other congenital malformations of esophagus; M06.9 Rheumatoid arthritis, unspecified; D75.1 Secondary polycythemia; G89.4 Chronic pain syndrome; M79.7 Fibromyalgia; M35.00 Sjogren syndrome, unspecified; J44.9 Chronic obstructive pulmonary disease, unspecified; E11.9 Type 2 diabetes mellitus without complications; Z79.4 Long term (current) use of insulin; Z79.51 Long term (current) use of inhaled steroids; Z79.82 Long term (current) use of aspirin; Z79.899 Other long term (current) drug therapy; Z88.1 Allergy status to other antibiotic agents; Z88.8 Allergy status to other drugs, medicaments and biological substances; Z91.040 Latex allergy status; F17.210 Nicotine dependence, cigarettes, uncomplicated
CPT/HCPCS: 45380; 43239; 82947; 88305; 88342; J2270

== ENCOUNTER → 2020-12-25 12:04 | Outpatient (BNVA) | payer OTHER, SELFPAY | PROVIDERS: Visit Provider Orthopaedic Surgery ==

== ENCOUNTER 2021-01-17 13:55 | Outpatient (REF) | payer OTHER, SELFPAY | END 2021-01-17 13:56 | disposition home or self-care (01) | LOC: HO.BBR 13:55 | PROVIDERS: Visit Provider Internal Medicine Medical Oncology | DX: D75.1 Secondary polycythemia (principal) | CPT/HCPCS: 85014; 85018; 99195 ==

== ENCOUNTER 2021-03-09 14:44 | Outpatient (REF) | payer OTHER, SELFPAY | END 2021-03-09 14:45 | disposition home or self-care (01) | LOC: HO.BBR 14:44 | PROVIDERS: Visit Provider Internal Medicine Medical Oncology | DX: D75.1 Secondary polycythemia (principal) | CPT/HCPCS: 85018; 99195 ==

== ENCOUNTER → 2021-04-19 09:21 | Outpatient (BNVA) | payer OTHER, SELFPAY | PROVIDERS: PCP Internal Medicine; Visit Provider Anesthesiology ==

== ENCOUNTER 2021-05-07 13:57 | Outpatient (REF) | payer OTHER, SELFPAY | END 2021-05-07 13:58 | disposition home or self-care (01) | LOC: HO.BBR 13:57 | PROVIDERS: Visit Provider Internal Medicine Medical Oncology | DX: D75.1 Secondary polycythemia (principal); M81.0 Age-related osteoporosis without current pathological fracture; M35.00 Sjogren syndrome, unspecified; M06.9 Rheumatoid arthritis, unspecified; M19.90 Unspecified osteoarthritis, unspecified site; M79.7 Fibromyalgia; E11.9 Type 2 diabetes mellitus without complications; Z79.891 Long term (current) use of opiate analgesic | CPT/HCPCS: 85018; 99195 ==

== ENCOUNTER → 2021-06-06 13:16 | Outpatient (BNVA) | payer OTHER, SELFPAY | PROVIDERS: PCP Internal Medicine; Visit Provider Anesthesiology | DX: Z13.89 Encounter for screening for other disorder (principal) ==

== ENCOUNTER → 2021-07-02 15:18 | Outpatient (BNVA) | payer OTHER, SELFPAY | PROVIDERS: PCP Internal Medicine; Visit Provider Anesthesiology | DX: Z13.89 Encounter for screening for other disorder (principal) ==

== ENCOUNTER 2021-07-08 02:09 | Emergency (ER) | payer OTHER, SELFPAY ==
[2021-07-08 02:17] VITALS: BP 165/69; PULSE 92; RESP 20; TEMP 36.2; O2SAT 97; BMI 33.5
[2021-07-08 05:32] VITALS: BP 151/83; PULSE 83; RESP 16; TEMP 36.8; O2SAT 97
--- NOTE | 2021-07-08 05:53 | ED.GENADULT ---
HPI - General Adult General Chief complaint: General Medical Stated complaint: oxy med refill Time Seen by Provider: 07/08/21 05:49 Source: patient Mode of arrival: ambulatory Limitations: no limitations History of Present Illness HPI narrative: Patient comes to the emergency room, requesting 1 tablet of oxycodone. [facility], states that she was supposed to get a refill of all her medications yesterday, but her oxycodone was not sent. Patient is requesting enough medications to bridge her until she can call her prescriber tomorrow. Other than chronic pain, patient has no further complaints. Related Data Home Medications Medication Instructions Recorded Confirmed albuterol sulfate 90 mcg/actuation 2 puff PO Q6H 09/27/20 06/06/21 aerosol inhaler ammonium lactate 12 % topical cream 1 appl TOPICAL DAILY 09/27/20 06/06/21 aspirin 325 mg tablet 325 mg PO 1230 09/27/20 06/06/21 cyclobenzaprine 5 mg tablet 5 mg PO BID PRN 09/27/20 06/06/21 diclofenac sodium 75 mg 75 mg PO DAILY PRN 09/27/20 06/06/21 tablet,delayed release hydroxychloroquine 200 mg tablet 200 mg PO DAILY 09/27/20 06/06/21 hyoscyamine sulfate 0.125 mg tablet 0.125 mg PO DAILY PRN 09/27/20 06/06/21 insulin lispro 100 unit/mL 20 unit SUBCUT QIDWMHS 09/27/20 06/06/21 subcutaneous pen (Humalog KwikPen (U-100) Insulin) loratadine 10 mg tablet 10 mg PO 0030 09/27/20 06/06/21 magnesium oxide 400 mg PO DAILY 09/27/20 06/06/21 metformin 1,000 mg tablet 1,000 mg PO 0030 09/27/20 06/06/21 metformin 1,000 mg tablet 1,000 mg PO 1230 09/27/20 06/06/21 montelukast 10 mg tablet 10 mg PO 0030 09/27/20 06/06/21 multivitamin 1 tab PO DAILY 09/27/20 06/06/21 mupirocin calcium 2 % topical cream 1 appl TOPICAL DAILY PRN 09/27/20 06/06/21 naloxone 0.4 mg/mL injection 0.4 mg INTRANASAL NEEDED PRN 09/27/20 06/06/21 solution pantoprazole 40 mg tablet,delayed 40 mg PO 1230 09/27/20 06/06/21 release diazepam 2 mg tablet 2 mg PO BEDTIME PRN 11/21/20 06/06/21 insulin glargine 100 unit/mL 40 unit SUBCUT BEDTIME 01/23/21 06/06/21 subcutaneous solution (Lantus U-100 Insulin) Previous Rx's Medication Instructions Recorded sodium,potassium,mag sulfates 17.5 See Rx Instructions PO .COMPLEX 11/21/20 gram-3.13 gram-1.6 gram oral soln #354 ml (Suprep Bowel Prep Kit) sucralfate 1 gram tablet 1 g PO QID 30 Days #120 tab 12/20/20 linaclotide 145 mcg capsule 145 mcg PO DAILY #60 cap 03/08/21 oxycodone 10 mg tablet 10 mg PO TID PRN 30 Days #90 tab 06/06/21 oxycodone 10 mg tablet 10 mg PO TID PRN #3 tab 07/08/21 Allergies Allergy/AdvReac Type Severity Reaction Status Date / Time azithromycin [AZITHROMYCIN] Allergy Severe DIFFICULTY Verified 07/08/21 02:23 BREATHING acetaminophen [From TYLENOL] Allergy Unknown ITCHING Verified 07/08/21 02:23 adhesive tape [ADHESIVE TAPE] Allergy Unknown RASH Verified 07/08/21 02:23 atorvastatin [From LIPITOR] Allergy Unknown DIFF Verified 07/08/21 02:23 BREATHING gentamicin [GENTAMICIN] Allergy Unknown RASH Verified 07/08/21 02:23 haloperidol [From HALDOL] Allergy Unknown GI ISSUES Verified 07/08/21 02:23 prasterone (DHEA) [From DHEA] Allergy Unknown CARDIAC Verified 07/08/21 02:23 ISSUES sumatriptan [From IMITREX] Allergy Unknown DIFF Verified 07/08/21 02:23 BREATHING varenicline [From CHANTIX] Allergy Unknown SEIZURE Verified 07/08/21 02:23 adalimumab [From Humira] Allergy Rash Verified 07/08/21 02:23 ketorolac [From TORADOL] AdvReac Unknown Muscle Verified 07/08/21 02:23 cramps dust Allergy Severe Difficulty Uncoded 07/08/21 02:23 Breathing Review of Systems Review of Systems: Constitutional : No Weight loss, No Fever, No Chills, No Night Sweats, No Fatigue, No Malaise ENT/Mouth : No Hearing loss, No Ear Pain, No Nasal Congestion, No Sinus Pain, No Hoarseness, No sore throat, No Rhinorrhea, No Swallowing Difficulty Eyes: No Eye Pain, No Swelling, No Redness, No Foreign Body, No Discharge, No Vision Changes Cardiovascular : No Chest Pain, No SOB, No Dyspnea on Exertion, No Orthopnea, No Edema, No Palpitations Respiratory : No Cough, No Sputum, No Wheezing, No Smoke Exposure, No Dyspnea Gastrointestinal : No Nausea, No Vomiting, No Diarrhea, No Constipation, No abdominal Pain, No Hematochezia, No Melena Genitourinary : no irregular bleeding, No Dysuria, No Urinary Frequency, No Hematuria, No Urinary Incontinence, No Urgency, No Flank Pain, No Urinary Flow Changes, No Hesitancy Musculoskeletal : Chronic pain Skin : No Skin Lesions, No rash Neuro : No Weakness, No Numbness, No Paresthesias, No Loss of Consciousness, No Dizziness, No Headache Psych : No Anxiety/Panic, No Depression, No SI/HI/AH/VH, No Social Issues, Heme/Lymph: No Bruising, No Bleeding,No Lymphadenopathy Endocrine : No Polyuria, No Polydipsia, No Temperature Intolerance PMFSH Past Medical History Medical History Asthma Boils Bursitis Chronic pain syndrome Chronic, continuous use of opioids COPD (chronic obstructive pulmonary disease) Diabetes Disc degeneration Eczema Fibromyalgia GERD (gastroesophageal reflux disease) Hx of difficult 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 Osteoarthritis Osteoarthritis Osteoporosis Polycythemia Rheumatoid arthritis Rheumatoid arthritis Sjogrens syndrome Sjogrens syndrome Sleep apnea Smoker Surgical History History of bladder suspension procedure History of colonoscopy History of esophagogastroduodenoscopy (EGD) History of removal of cyst History of surgical removal of pilonidal cyst Hx of appendectomy Hx of cholecystectomy Hx of hysterectomy Hx of plastic surgery Hx of tonsillectomy Family History Family History (Updated 01/23/21 @ 15:06 by Segun Lal RN) Mother Polycythemia Father Heart attack Social History Social History Are you a primary medicare insurance specialist to a significant other at home: No Alcohol intake: never Patient Tobacco Use Status: Current everyday Tobacco user Cigarette Packs Per Day: 1 Cigarettes Per Day: 20.0 Years Smoked: 46 Advance Directives: No Advance Directives Information Provided: Yes Current occupational status: retired 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 Physical Exam ED Vital Signs: Vital Signs - 24 hr 07/08/21 02:17 07/08/21 05:32 Temperature 97.2 F 98.2 F Pulse Rate 92 83 Respiratory Rate 20 16 Blood Pressure 165/69 H 151/83 H Pulse Oximetry 97 97 BMI result Body Mass Index 33.5 Const Other: Appearance: Alert. Oriented X3. No acute distress. Eyes: Pupils equal, round and reactive to light. ENT: Pharynx normal. Neck: Normal inspection. Neck supple. No lymph nodes noted. No crepitus CVS: Normal heart rate and rhythm. Pulses normal. Normal S1 and S2 Respiratory: No respiratory distress. Breath sounds normal. No Wheezing. No rales Abdomen: Soft and nontender. No rigidity. No distention. Skin: Skin warm and dry. Normal skin color. Normal skin turgor. Extremities: No lower extremity edema. No Lacerations. No Rash Neuro: Oriented X 3. No motor deficit. No sensory deficit. Moving all extremities. No slurred speech. CN 2 through 12 grossly intact Psych: calm, cooperative, normal affect Course Course Course Narrative: Patient was given 1 dose of p.o. oxycodone here in the emergency room. Patient will be given 3 tablets which will bridge her until Friday Discharge Plan Discharge Clinical Impression: Chronic pain Patient Disposition: Home, Self-Care Instructions: Chronic Pain (ED) Additional Instructions: Please follow-up with your primary care physician tomorrow. If you have any worsening or new symptoms, please return to the emergency room or call 911 Prescriptions: New oxycodone 10 mg tablet 10 mg PO TID PRN (Reason: pain) Qty: 3 0RF No Action sucralfate 1 gram tablet 1 g PO QID 30 Days Qty: 120 1RF linaclotide 145 mcg capsule 145 mcg PO DAILY Qty: 60 0RF oxycodone 10 mg tablet 10 mg PO TID PRN (Reason: pain) 30 Days Qty: 90 0RF Lantus U-100 Insulin 100 unit/mL solution 40 unit subcut BEDTIME 0RF aspirin 325 mg Tablet 325 mg PO 1230 0RF naloxone [Narcan] 0.4 mg/mL Solution 0.4 mg intranasal NEEDED PRN (Reason: Opiate Reversal) 0RF pantoprazole 40 mg Tablet,Delayed Release (Dr/Ec) 40 mg PO 1230 0RF hyoscyamine sulfate 0.125 mg Tablet 0.125 mg PO DAILY PRN (Reason: Muscle Pain) 0RF metformin 1,000 mg Tablet 1,000 mg PO 0030 0RF metformin 1,000 mg Tablet 1,000 mg PO 1230 0RF mupirocin calcium [Bactroban] 2 % Cream 1 appl TOPICAL DAILY PRN (Reason: Skin Irritation) 0RF diclofenac sodium [Voltaren] 75 mg Tablet,Delayed Release (Dr/Ec) 75 mg PO DAILY PRN (Reason: Pain) 0RF montelukast 10 mg Tablet 10 mg PO 0030 0RF ammonium lactate 12 % Cream 1 appl TOPICAL DAILY 0RF hydroxychloroquine 200 mg Tablet 200 mg PO DAILY 0RF albuterol sulfate 90 mcg/actuation HFA aerosol inhaler 2 puff PO Q6H 0RF loratadine 10 mg Tablet 10 mg PO 0030 0RF insulin lispro [Humalog KwikPen Insulin] 100 unit/mL Insulin Pen 20 unit SUBCUT QIDWMHS 0RF cyclobenzaprine [Flexeril] 5 mg Tablet 5 mg PO BID PRN (Reason: Pain) 0RF magnesium oxide 400 mg magnesium Tablet 400 mg PO DAILY 0RF multivitamin 1 tab PO DAILY 0RF diazepam 2 mg tablet 2 mg PO BEDTIME PRN (Reason: Anxiety) 0RF Suprep Bowel Prep Kit 17.5-3.13-1.6 gram recon soln See Rx Instructions PO .COMPLEX Qty: 354 0RF Rx Instructions: DILUTE; drink full amount early evening
[2021-07-08] MEDS: oxyCODONE HCl Immed Release 5 MG TABLET 10 MG PO (06:09)
== END 2021-07-08 06:13 | disposition home or self-care (01) ==
PROVIDERS: Emergency Provider Emergency Medicine; PCP Internal Medicine
DX: G89.4 Chronic pain syndrome (principal); Z79.891 Long term (current) use of opiate analgesic
CPT/HCPCS: 99282; 99283

== ENCOUNTER → 2021-07-09 13:23 | Outpatient (BNVA) | payer OTHER, SELFPAY | PROVIDERS: Referring Provider Internal Medicine; Visit Provider Internal Medicine Gastroenterology | DX: M79.18 Myalgia, other site (principal) ==

== ENCOUNTER 2021-07-26 12:17 | Outpatient (REF) | payer OTHER, SELFPAY ==
--- NOTE | ~2021-07-26 | MM_ITS ---
EXAMINATION: MM SCREENING DIGITAL BREAST TOMOSYNTHESIS, BILATERAL CLINICAL INFORMATION: Screening. Asymptomatic. The lifetime risk of breast cancer based on the Tyrer-Cuzick Model is 3%. COMPARISON: Outside mammography: 07/12/2014, 07/08/2013 and outside ultrasound left breast 12/06/2013, 12/07/2013 ([facility]). TECHNIQUE: Digital breast tomosynthesis is performed in both the craniocaudal and mediolateral oblique views along with computer-aided detection (CAD). Synthesized 2D images are generated from the tomosynthesis. Technically challenging exam requiring 2 technologists, patient in wheelchair, recent injury right shoulder, Sjogren's. Exam tailored to patient capabilities. FINDINGS: There are scattered areas of fibroglandular density (ACR BI-RADS breast composition Category b). Parenchymal pattern is similar to prior outside studies. There is no developing density or interval significant mass or architectural abnormality. No abnormal calcifications. Small benign circumscribed nodularity central left breast and mid and posterior outer right breast are stable. The axilla and skin contours are unremarkable. MM/MM tomosynthesis screening BI IMPRESSION: No mammographic evidence of malignancy. ASSESSMENT: BI-RADS 2: Benign RECOMMENDATION: Routine annual mammography screening. This patient's information was entered into a reminder system with a target due date for their next mammogram.
[2021-07-26 13:17] LABS: MANUAL DIFF FLAG NO
[2021-07-26 13:27] LABS: Basophils Absolute Auto 0.1 X10*3/uL (0.0-0.2); Basophils Percent Auto 0.9 % (0-2); Eosinophils Absolute Auto 0.7 X10*3/uL (0.0-0.4); Eosinophils Percent Auto 5.5 % (0-4); Hematocrit 42.3 % (37.0-47.0); Hemoglobin 11.8 g/dl (12.0-16.0); Imm Gran Abs Auto 0.06 X10*3/uL (0.00-0.03); Imm Gran Pct Auto 0.5 % (0.0-0.4); Lymphocytes Percent Auto 23.2 % (20-40); Mean Corpuscular HGB Conc 27.9 g/dl (31.0-35.0); Mean Corpuscular Hemoglobin 19.9 pg (27.0-33.0); Mean Corpuscular Volume 71.3 fL (80.0-98.0); Mean Platelet Volume 8.8 fL (9.4-12.3); Monocytes Absolute Auto 0.8 X10*3/uL (0.1-1.2); Monocytes Percent Auto 5.9 % (2-11); Neutrophils Absolute Auto 8.3 x10*3/uL (2.0-8.3); Platelet Count 358 X10*3/uL (160-400); Red Blood Count 5.93 X10*6/uL (4.20-5.50); Red Cell Distribution Width 19.4 % (11.0-16.0)
[2021-07-26 13:57] LABS: Alanine Aminotransferase 14 U/L (0-31); Alkaline Phosphatase 78 U/L (39-117); Anion Gap 15 (12-20); Aspartate Amino Transferase 14 U/L (5-31); Bilirubin Total 0.2 mg/dL (0.0-1.0); Blood Urea Nitrogen 15 mg/dL (9-16); Calcium 9.2 mg/dL (8.4-10.2); Carbon Dioxide 27 mmol/L (22-29); Chloride 100 mmol/L (96-108); Estimated Glomerular Filt Rate > 60; Glucose Random 227 mg/dL (60-115); Potassium 4.6 mmol/L (3.3-5.1); Sodium 137 mmol/L (135-145); Total Protein 7.1 g/dL (6.5-8.0)
== END 2021-07-26 12:18 | disposition home or self-care (01) ==
LOC: HO.MAMMO 12:17
PROVIDERS: Absent Provider Internal Medicine Gastroenterology; PCP Internal Medicine; Visit Provider Internal Medicine Medical Oncology
DX: Z12.31 Encounter for screening mammogram for malignant neoplasm of breast (principal); D75.1 Secondary polycythemia
CPT/HCPCS: 36415; 77063; 77067; 80053; 85025

== ENCOUNTER 2021-08-09 13:56 | Outpatient (REF) | payer OTHER, SELFPAY ==
--- NOTE | ~2021-08-09 | US_ITS ---
EXAMINATION: US DIAGNOSTIC ULTRASOUND BREAST, LEFT CLINICAL INFORMATION: Superficial oval palpable area noted by patient left breast upper inner quadrant for approximately 2 weeks. TC score 3%. COMPARISON: Mammography 07/26/2021., Outside mammography 07/08/2013 ([place], [place]) TECHNIQUE: Ultrasound of the left breast breast is targeted to the area of clinical concern. Patient is able to point to area of concern at time of imaging. Grayscale imaging and color Doppler are performed without and with harmonics. FINDINGS: Ultrasound demonstrates subtle oval fat lobule in area of palpable concern measuring approximately 0.8 x 2.4 cm. Length is parallel with the skin. There is no skin thickening or edema tracking in soft tissue planes. Review of recent tomography demonstrates subcutaneous uniform thin capsule around benign fatty tissue in this area, consistent with incidental lipoma. Size and location correspond to patient's symptoms. Results are discussed with the patient at time of visit. US/US breast LT limited IMPRESSION: -Incidental benign oval lipoma mid upper inner left breast approximately 0.8 cm thickness by 2.4 cm in length with fine surrounding capsule in retrospect identified on recent left CC tomography. ASSESSMENT: BI-RADS 2: Benign RECOMMENDATION: Routine annual mammography screening. This patient's information was entered into a reminder system with a target due date for their next mammogram.
--- NOTE | ~2021-08-09 | XR_ITS ---
EXAMINATION: XR FOOT, RIGHT CLINICAL INFORMATION: Pain right foot COMPARISON: Radiographs right foot 05/06/2017 TECHNIQUE: AP, lateral, and oblique views of the right foot. FINDINGS: No visible acute or healing fracture or dislocation or destructive process. Again, there are bulky large spurs posterior and plantar calcaneus. Retrocalcaneal recess is preserved. No visible ankle capsular effusion. Visualized subtalar joint unremarkable. There are again bridging moderately bulky dorsal spurring from the midfoot. There is medial bunion first MTP and some lateral spurring at the base first proximal phalanx. No MTP joint narrowing or erosive change. There is mild narrowing DIP joints. No erosive changes. XR/XR foot RT min 3V IMPRESSION: -No fracture or dislocation or destructive process. -Chronic large bulky posterior and plantar calcaneal spurs and moderate dorsal spurring mid foot. -Mild narrowing DIP joints. No erosive changes.
== END 2021-08-09 13:57 | disposition home or self-care (01) ==
LOC: HO.MAMMO 13:56
PROVIDERS: PCP Internal Medicine; Visit Provider Internal Medicine
DX: M79.671 Pain in right foot (principal); N63.22 Unspecified lump in the left breast, upper inner quadrant
CPT/HCPCS: 73630; 76642

== ENCOUNTER → 2021-12-21 08:21 | Outpatient (BNVA) | payer OTHER, SELFPAY | PROVIDERS: PCP Internal Medicine; Visit Provider Anesthesiology | DX: Z51.81 Encounter for therapeutic drug level monitoring (principal); Z79.899 Other long term (current) drug therapy | CPT/HCPCS: 99211 ==

== ENCOUNTER 2022-01-02 15:46 | Emergency (ER) | payer OTHER, SELFPAY ==
--- NOTE | ~2022-01-02 | CT_ITS ---
EXAMINATION: CT ABDOMEN AND PELVIS WITH CONTRAST CLINICAL INFORMATION: Left leg edema. Question pelvic mass. COMPARISON: Left lower extremity venous Doppler ultrasound dated 01/02/2022. CT scan of the abdomen and pelvis dated 03/16/2016. TECHNIQUE: Multidetector CT volumetric acquisition of the abdomen and pelvis was performed after the administration of 85 mL of intravenous Omnipaque 350. The data set was reformatted in the sagittal and coronal planes and reviewed on an independent workstation. This CT examination was performed using dose optimization techniques as appropriate, variously including the following: *Automated exposure control *Adjustment of mA and/or kV according to patient size (this includes techniques or standardized protocols for targeted exams where dose is matched to indication/reason for exam; i.e. extremities or head) *Use of iterative reconstruction technique DLP: 882 mGy-cm. FINDINGS: LOWER CHEST: Scattered areas of subpleural reticulation seen bilaterally with associated mild traction bronchiectasis in the right middle lobe, likely representing areas of scarring. Nonspecific small nodular densities seen projected in the lower outer quadrant of the right breast, incompletely included. LIVER, GALLBLADDER, BILIARY TREE: Right lobe of the liver is elongated measuring 20.3 cm longitudinally, likely a Orlin's lobe variant. Liver normal attenuation. Small calcified granuloma seen in the left lobe of the liver. No focal cystic or solid mass or intra-or extrahepatic ductal dilatation. Hepatic and portal veins patent. Gallbladder is surgically absent. PANCREAS: Diffusely mildly atrophic. No ductal dilatation, mass, or surrounding stranding. SPLEEN: Normal size and appearance. Splenic vein patent. ADRENAL GLANDS AND KIDNEYS: Adrenal glands normal. Kidneys bilaterally symmetric in size and function. No focal mass, hydronephrosis, nephrolithiasis or perinephric stranding. URETERS AND BLADDER: Ureters decompressed and within normal limits. Bladder partially distended and within normal limits. PELVIC ORGANS: Status post hysterectomy. No suspicious adnexal mass. GASTROINTESTINAL TRACT: Normal. Small and large bowel loops decompressed. Appendix not seen. LYMPHOVASCULAR STRUCTURES: Abdominal aorta normal in caliber. Moderate atherosclerotic calcifications of the aorta are noted. No periaortic collections. No abdominal or pelvic adenopathy. BONES: Diffuse mild vertebral spondylosis in the thoracolumbar spine and mild facet arthropathy in the lower lumbar spine. CT/CT abdomen pelvis w IV con IMPRESSION: 1. No acute intra-abdominal or pelvic process seen. 2. Nonspecific small nodular densities projected in the lower outer quadrant of the right breast, incompletely included. Finding appears less distinct than on prior CT scan of the chest from 06/11/2018 and likely represents nodular breast tissue. Clinical correlation is requested. 3. Moderate atherosclerotic vascular calcifications. 4. Status post cholecystectomy and hysterectomy. 5. Elongated right lobe of the liver, likely a Orlin's lobe variant.
--- NOTE | ~2022-01-02 | XR_ITS ---
EXAMINATION: 1. LEFT ANKLE. 2. LEFT FOOT. CLINICAL INFORMATION: Swelling. COMPARISON: None TECHNIQUE: 1. Left ankle. 3 views 2. Left foot. 3 views. FINDINGS: 1. Left ankle. Diffuse soft tissue swelling around the ankle. There is diffuse osteopenia. No acute abnormality. No fracture. No dislocation. Ankle mortise is congruent. Degenerative osteosclerosis at the synchondrosis. 2. Left foot. There is diffuse osteopenia. No acute abnormality. No acute fracture or dislocation. There is a corticated osseous density associated with medial side of foot at the navicular bone appears to be old. There is spur of the talonavicular joint. There are spurs through the mid tarsal bones at the dorsum of the foot. Large plantar calcaneal spur. Prominent spur at the Achilles tendon insertion at the posterior calcaneus. XR/XR foot LT 2V IMPRESSION: 1. Left ankle. Soft tissue swelling around the ankle. No acute osseous abnormality. 2. Left foot. No acute abnormality. Degenerative change of the talonavicular joint. Degenerative change of the tarsal bones.
--- NOTE | ~2022-01-02 | XR_ITS ---
EXAMINATION: XR CHEST CLINICAL INFORMATION: Cough COMPARISON: Chest x-ray 10/03/2020 TECHNIQUE: Frontal view of the chest was obtained. FINDINGS: No airspace consolidation. Minimal blunting of the lateral costophrenic angles equivocal for trace pleural effusions versus mild pleural thickening. No pneumothorax. Normal cardiomediastinal silhouette and pulmonary vascularity. No evidence pulmonary edema. No acute osseous injury. Right-sided reverse total shoulder arthroplasty. XR/XR chest 1V IMPRESSION: 1. No acute pulmonary disease. 2. Possible trace bilateral pleural effusions versus mild pleural thickening.
--- NOTE | ~2022-01-02 | US_ITS ---
EXAMINATION: US VENOUS ULTRASOUND WITH DOPPLER LOWER EXTREMITY, LEFT CLINICAL INFORMATION: Lower extremity edema. Question DVT COMPARISON: None TECHNIQUE: Ultrasound of the deep veins is performed from the hip to the calf with compression sonography and color and pulse Doppler assessment. Spectral analysis with color-flow imaging is performed. FINDINGS: There is normal venous compression and respiratory variation and augmented flow. The visualized common femoral vein, superficial femoral vein, profunda femoral vein, popliteal vein, and the trifurcation region shows no evidence of deep venous thrombosis. There is no significant popliteal fossa cyst. Mild subcutaneous edema in the calf. If the patient's symptoms persist, followup ultrasound in 5 days 7 days might be of value to exclude proximal propagation from a non-visualized calf vein. US/US venous duplex LE IMPRESSION: No DVT demonstrated in the left lower extremity.
--- NOTE | ~2022-01-02 | XR_ITS ---
EXAMINATION: 1. LEFT ANKLE. 2. LEFT FOOT. CLINICAL INFORMATION: Swelling. COMPARISON: None TECHNIQUE: 1. Left ankle. 3 views 2. Left foot. 3 views. FINDINGS: 1. Left ankle. Diffuse soft tissue swelling around the ankle. There is diffuse osteopenia. No acute abnormality. No fracture. No dislocation. Ankle mortise is congruent. Degenerative osteosclerosis at the synchondrosis. 2. Left foot. There is diffuse osteopenia. No acute abnormality. No acute fracture or dislocation. There is a corticated osseous density associated with medial side of foot at the navicular bone appears to be old. There is spur of the talonavicular joint. There are spurs through the mid tarsal bones at the dorsum of the foot. Large plantar calcaneal spur. Prominent spur at the Achilles tendon insertion at the posterior calcaneus. XR/XR ankle LT 2V IMPRESSION: 1. Left ankle. Soft tissue swelling around the ankle. No acute osseous abnormality. 2. Left foot. No acute abnormality. Degenerative change of the talonavicular joint. Degenerative change of the tarsal bones.
[2022-01-02 16:41] VITALS: BP 151/89; PULSE 86; RESP 18; TEMP 37.1; O2SAT 96; BMI 34.7
[2022-01-02 17:25] LABS: MANUAL DIFF FLAG NO
[2022-01-02 17:29] LABS: Basophils Absolute Auto 0.1 X10*3/uL (0.0-0.2); Basophils Percent Auto 0.9 % (0-2); Eosinophils Absolute Auto 0.6 X10*3/uL (0.0-0.4); Eosinophils Percent Auto 5.2 % (0-4); Hematocrit 51.9 % (37.0-47.0); Hemoglobin 16.7 g/dl (12.0-16.0); Imm Gran Abs Auto 0.08 X10*3/uL (0.00-0.03); Imm Gran Pct Auto 0.7 % (0.0-0.4); Lymphocytes Percent Auto 27.1 % (20-40); Mean Corpuscular HGB Conc 32.2 g/dl (31.0-35.0); Mean Corpuscular Hemoglobin 27.8 pg (27.0-33.0); Mean Corpuscular Volume 86.5 fL (80.0-98.0); Mean Platelet Volume 9.9 fL (9.4-12.3); Monocytes Absolute Auto 0.7 X10*3/uL (0.1-1.2); Monocytes Percent Auto 6.5 % (2-11); Neutrophils Absolute Auto 6.5 x10*3/uL (2.0-8.3); Neutrophils Percent Auto 59.6 % (45-73); Platelet Count 272 X10*3/uL (160-400); Red Cell Distribution Width 14.6 % (11.0-16.0); White Blood Count 10.9 X10*3/uL (4.8-10.8)
--- NOTE | 2022-01-02 17:34 | ED.GENADULT ---
HPI - General Adult General Chief complaint: General Medical Stated complaint: Abnormal Labs Time Seen by Provider: 01/02/22 17:29 History of Present Illness HPI narrative: Patient history of polycythemia vera, chronic back pain on opiates, asthma, COPD, fibromyalgia,DM, rheumatoid arthritis sleep apnea celiac disease, ulcerative colitis does get phlebotomy Q 2 months last one was 4 months ago , chronic smoker comes here for left leg swelling for 1 week and had labs done as outpatient which were normal, also had UTI and was taking Cipro. No urine symptoms this time does have dry cough has fever 101-102 for last 1 week. No leg pain but does have swelling on the left leg no increase in shortness of breath Related Data Home Medications Medication Instructions Recorded Confirmed albuterol sulfate 90 mcg/actuation 2 puff PO Q6H 09/27/20 09/24/21 aerosol inhaler ammonium lactate 12 % topical cream 1 appl topical DAILY 09/27/20 09/24/21 aspirin 325 mg tablet 325 mg PO 1230 09/27/20 09/24/21 cyclobenzaprine 5 mg tablet 5 mg PO BID PRN Pain 09/27/20 09/24/21 diclofenac sodium 75 mg 75 mg PO DAILY PRN Pain 09/27/20 09/24/21 tablet,delayed release hydroxychloroquine 200 mg tablet 200 mg PO DAILY 09/27/20 09/24/21 hyoscyamine sulfate 0.125 mg tablet 0.125 mg PO DAILY PRN Muscle Pain 09/27/20 09/24/21 insulin lispro 100 unit/mL 20 unit subcut QIDWMHS 09/27/20 09/24/21 subcutaneous pen (Humalog KwikPen (U-100) Insulin) loratadine 10 mg tablet 10 mg PO 0030 09/27/20 09/24/21 metformin 1,000 mg tablet 1,000 mg PO 1230 09/27/20 09/24/21 montelukast 10 mg tablet 10 mg PO 0030 09/27/20 09/24/21 multivitamin 1 tab PO DAILY 09/27/20 09/24/21 mupirocin calcium 2 % topical cream 1 appl topical DAILY PRN Skin 09/27/20 09/24/21 Irritation pantoprazole 40 mg tablet,delayed 40 mg PO 1230 09/27/20 09/24/21 release diazepam 2 mg tablet 2 mg PO BEDTIME PRN Anxiety 11/21/20 09/24/21 insulin glargine 100 unit/mL 40 unit subcut BEDTIME 01/23/21 09/24/21 subcutaneous solution (Lantus U-100 Insulin) magnesium oxide 400 mg (241.3 mg 400 mg PO BID 07/09/21 09/24/21 magnesium) tablet pramipexole 0.25 mg tablet 0.25 mg PO BEDTIME 07/09/21 09/24/21 ropinirole 0.25 mg tablet 0.25 mg PO BEDTIME 07/09/21 09/24/21 baclofen 10 mg tablet 1 tab PO TID 07/27/21 09/24/21 linaclotide 145 mcg capsule 145 mcg PO DAILY 07/27/21 09/24/21 (Linzess) gabapentin 300 mg capsule 600 mg PO BEDTIME 12/24/21 pramipexole 1 mg tablet 0.25 mg PO DAILY 12/24/21 Previous Rx's Medication Instructions Recorded capsaicin 0.1 % topical cream 1 appl topical BID #60 grams 07/09/21 naloxone 4 mg/actuation nasal spray 4 mg intranasal Q2M PRN opioid 08/27/21 overdose #2 ea oxycodone 10 mg tablet 10 mg PO TID PRN pain 30 days #90 12/21/21 tabs doxycycline hyclate 100 mg tablet 100 mg PO BID #20 tabs 01/02/22 hydrochlorothiazide 12.5 mg tablet 12.5 mg PO QAM #14 tabs 01/02/22 Allergies Allergy/AdvReac Type Severity Reaction Status Date / Time azithromycin [AZITHROMYCIN] Allergy Severe DIFFICULTY Verified 12/24/21 11:46 BREATHING acetaminophen [From TYLENOL] Allergy Unknown ITCHING Verified 12/24/21 11:46 adhesive tape [ADHESIVE TAPE] Allergy Unknown RASH Verified 12/24/21 11:46 atorvastatin [From LIPITOR] Allergy Unknown DIFF Verified 12/24/21 11:46 BREATHING gentamicin [GENTAMICIN] Allergy Unknown RASH Verified 12/24/21 11:46 haloperidol [From HALDOL] Allergy Unknown GI ISSUES Verified 12/24/21 11:46 prasterone (DHEA) [From DHEA] Allergy Unknown CARDIAC Verified 12/24/21 11:46 ISSUES sumatriptan [From IMITREX] Allergy Unknown DIFF Verified 12/24/21 11:46 BREATHING varenicline [From CHANTIX] Allergy Unknown SEIZURE Verified 12/24/21 11:46 adalimumab [From Humira] Allergy Rash Verified 12/24/21 11:46 ketorolac [From TORADOL] AdvReac Unknown Muscle Verified 12/24/21 11:46 cramps dust Allergy Severe Difficulty Uncoded 12/24/21 11:46 Breathing Review of Systems Review of Systems: Yes all other systems are reviewed and are negative PMFSH Past Medical History Medical History Asthma Boils Bursitis Chronic pain syndrome Chronic, continuous use of opioids COPD (chronic obstructive pulmonary disease) Diabetes Disc degeneration Eczema Fibromyalgia GERD (gastroesophageal reflux disease) Hx of difficult intubation detention (current) use of opiate analgesic Osteoarthritis Osteoarthritis Osteoporosis Polycythemia Rheumatoid arthritis Rheumatoid arthritis Sjogrens syndrome Sjogrens syndrome Sleep apnea Smoker Surgical History History of bladder suspension procedure History of colonoscopy History of esophagogastroduodenoscopy (EGD) History of removal of cyst History of surgical removal of pilonidal cyst Hx of appendectomy Hx of cholecystectomy Hx of hysterectomy Hx of plastic surgery Hx of tonsillectomy Family History Family History Mother Polycythemia Father Heart attack Social History Social History Household Members: Spouse and Children Housing: House Are you a primary intensive care unit registered nurse to a significant other at home: No Do you presently have visiting nurse or other home services: No Alcohol intake: never Patient Tobacco Use Status: Current everyday Tobacco user Tobacco use type: Pipe Cigarette Packs Per Day: 1 Cigarettes Per Day: 20.0 Years Smoked: 46 Smoked in Last 30 Days: Yes Second Hand Smoke Exposure: Yes Use of substances other than those prescribed or required for medical reasons: No Advance Directives: Yes Advance Directives on File: Yes Advance Directives Date on File: 12/24/19 service: No Current occupational status: retired 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 Physical Exam ED Vital Signs: Vital Signs - 24 hr 01/02/22 16:41 01/02/22 18:08 01/02/22 21:54 Temperature 98.8 F 98 F 98.3 F Pulse Rate 86 84 84 Respiratory Rate 18 20 Blood Pressure 151/89 H 153/87 H 150/59 H Pulse Oximetry 96 95 93 Oxygen Delivery Method Room Air Room Air Room Air BMI result Body Mass Index 34.7 Appearance: Alert. Oriented X3. No acute distress. Eyes: No pallor ENT: Pharynx normal. Oral Mucosa moist Neck: Normal inspection. Neck supple. CVS: Normal heart rate and rhythm. Pulses normal. Respiratory: No respiratory distress. Equal air entry bilateral, bilateral wheezing Abdomen: Soft and nontender. Bowel sounds are present, no mass palpable, no CVA tenderness Skin: Skin warm and dry. Normal skin color. Normal skin turgor. Extremities: Left lower extremity edema 3+ . No calf tenderness slight erythema of the dorsum of the left foot with warm feeling no open wound no inguinal lymph nodes Neuro: Oriented X 3. No motor deficit. No sensory deficit.No cerebellar signs , cranial nerves II-XII intact Medications Administered Discontinued Medications Generic Name Dose Route Start Last Admin Trade Name Freq PRN Reason Stop Dose Admin Doxycycline Monohydrate 100 mg 01/02/22 22:53 01/02/22 23:15 Doxycycline Monohydrate 100 Mg Capsule PO 01/02/22 22:54 100 mg ONCE ONE Administration Sodium Chloride 1,000 mls @ 999 mls/hr 01/02/22 18:09 01/02/22 21:02 Ns IV 01/02/22 19:09 Infused .Q1H1M ONE Infusion Iohexol 100 ml 01/02/22 21:16 01/02/22 21:17 Iohexol 350 Mg/Ml 100 Ml Infus..Btl IV 01/02/22 21:17 85 ml ONCE ONE Administration Oxycodone HCl 10 mg 01/02/22 17:49 01/02/22 18:20 Oxycodone Hcl Immed Release 5 Mg Tablet PO 01/02/22 17:50 10 mg ONCE ONE Administration Medical Decision Making [facility] Narrative Medical decision making narrative: Patient with polycythemia vera with left leg workup negative for DVT CT abdomen negative for pelvic mass likely dependent edema also has slight redness of the dorsum of the left foot will treat her for cellulitis which is unlikely Lab Data Lab results reviewed: Yes I reviewed the patient's lab results. Result diagrams: 01/02/22 17:19 01/02/22 17:19 Labs: Lab Results 01/02/22 01/02/22 01/02/22 Range/Units 17:19 17:19 17:19 WBC 10.9 H (4.8-10.8) X10*3/uL RBC 6.00 H (4.20-5.50) X10*6/uL Hgb 16.7 H D (12.0-16.0) g/dl Hct 51.9 H D (37.0-47.0) % MCV 86.5 (80.0-98.0) fL MCH 27.8 (27.0-33.0) pg MCHC 32.2 (31.0-35.0) g/dl RDW 14.6 (11.0-16.0) % Plt Count 272 (160-400) X10*3/uL MPV 9.9 (9.4-12.3) fL Immature Gran % (Auto) 0.7 H (0.0-0.4) % Neut % (Auto) 59.6 (45-73) % Lymph % (Auto) 27.1 (20-40) % Kimball % (Auto) 6.5 (2-11) % Eos % (Auto) 5.2 H (0-4) % Baso % (Auto) 0.9 (0-2) % Lymph # (Auto) 3.0 (1.2-4.9) X10*3/uL Kimball # (Auto) 0.7 (0.1-1.2) X10*3/uL Eos # (Auto) 0.6 H (0.0-0.4) X10*3/uL Baso # (Auto) 0.1 (0.0-0.2) X10*3/uL Abs Immat Gran (auto) 0.08 H (0.00-0.03) X10*3/uL Absolute Neuts (auto) 6.5 (2.0-8.3) x10*3/uL Absolute Nucleated RBC 0.000 (0.0-0.012) X10*3/uL Nucleated RBC % (auto) 0.0 (0.0-0.2) /100WBC PT (10.0-13.1) SEC INR (0.9-1.1) APTT (26.0-36.4) SEC D-Dimer High Sensitivty NG/ML Sodium 140 (135-145) mmol/L Potassium 4.4 (3.3-5.1) mmol/L Chloride 100 (96-108) mmol/L Carbon Dioxide 29 (22-29) mmol/L Anion Gap 15 (12-20) BUN 10 (9-16) mg/dL Creatinine 0.84 (0.5-1.4) mg/dL Estim Creat Clear Calc 78.0 Estimated GFR > 60 Random Glucose 256 H (60-115) mg/dL Calcium 9.5 (8.4-10.2) mg/dL B-Natriuretic Peptide < 10 (<100) pg/mL Urine Color Urine Appearance Urine pH (5.0-9.0) Ur Specific [place] (1.005-1.025) Urine Protein (Neg-Trace) mg/dL Urine Glucose (UA) (Negative) mg/dL Urine Ketones (Negative) mg/dL Urine Blood (Negative) Urine Nitrite (Negative) Ur Leukocyte Esterase (Negative) Urine RBC (0-2) /HPF Urine WBC (0-5) /HPF Ur Squamous Epith Cells (0-2) /HPF Urine Bacteria (None Seen) Hyaline Casts (0-2) /LPF COVID-19 ([facility]) (Negative) COVID-19 Clin Com 01/02/22 01/02/22 01/02/22 Range/Units 18:17 18:31 19:32 WBC (4.8-10.8) X10*3/uL RBC (4.20-5.50) X10*6/uL Hgb (12.0-16.0) g/dl Hct (37.0-47.0) % MCV (80.0-98.0) fL MCH (27.0-33.0) pg MCHC (31.0-35.0) g/dl RDW (11.0-16.0) % Plt Count (160-400) X10*3/uL MPV (9.4-12.3) fL Immature Gran % (Auto) (0.0-0.4) % Neut % (Auto) (45-73) % Lymph % (Auto) (20-40) % Kimball % (Auto) (2-11) % Eos % (Auto) (0-4) % Baso % (Auto) (0-2) % Lymph # (Auto) (1.2-4.9) X10*3/uL Kimball # (Auto) (0.1-1.2) X10*3/uL Eos # (Auto) (0.0-0.4) X10*3/uL Baso # (Auto) (0.0-0.2) X10*3/uL Abs Immat Gran (auto) (0.00-0.03) X10*3/uL Absolute Neuts (auto) (2.0-8.3) x10*3/uL Absolute Nucleated RBC (0.0-0.012) X10*3/uL Nucleated RBC % (auto) (0.0-0.2) /100WBC PT 12.3 (10.0-13.1) SEC INR 1.1 (0.9-1.1) APTT 28.5 (26.0-36.4) SEC D-Dimer High Sensitivty 212 NG/ML Sodium (135-145) mmol/L Potassium (3.3-5.1) mmol/L Chloride (96-108) mmol/L Carbon Dioxide (22-29) mmol/L Anion Gap (12-20) BUN (9-16) mg/dL Creatinine (0.5-1.4) mg/dL Estim Creat Clear Calc Estimated GFR Random Glucose (60-115) mg/dL Calcium (8.4-10.2) mg/dL B-Natriuretic Peptide (<100) pg/mL Urine Color Yellow Urine Appearance Clear Urine pH 6.0 (5.0-9.0) Ur Specific [place] 1.020 (1.005-1.025) Urine Protein Negative (Neg-Trace) mg/dL Urine Glucose (UA) >=1000 H (Negative) mg/dL Urine Ketones Negative (Negative) mg/dL Urine Blood Negative (Negative) Urine Nitrite Negative (Negative) Ur Leukocyte Esterase Trace H (Negative) Urine RBC 0-2 (0-2) /HPF Urine WBC 6-10 H (0-5) /HPF Ur Squamous Epith Cells 0-2 (0-2) /HPF Urine Bacteria None Seen (None Seen) Hyaline Casts 0-2 (0-2) /LPF COVID-19 ([place]) Negative (Negative) COVID-19 Clin Com See Note Discharge Plan Discharge Clinical Impression: Leg edema Patient Disposition: Home, Self-Care Instructions: Leg Edema (ED) Additional Instructions: Keep your left leg elevated Continue Cipro Start taking doxycycline for cellulitis Follow-up with PCP/director energy take the water pill daily Prescriptions: New doxycycline hyclate 100 mg tablet 100 mg PO BID Qty: 20 0RF hydrochlorothiazide 12.5 mg tablet 12.5 mg PO QAM Qty: 14 0RF No Action oxycodone 10 mg tablet 10 mg PO TID PRN (Reason: pain) 30 Days Qty: 90 0RF Rx Instructions: Partial Fill only upon patient request. Do not fill till 01/01/2022 insulin glargine [Lantus U-100 Insulin] 100 unit/mL solution 40 unit subcut BEDTIME baclofen 10 mg tablet 1 tab PO TID Linzess 145 mcg capsule 145 mcg PO DAILY aspirin 325 mg Tablet 325 mg PO 1230 pantoprazole 40 mg Tablet,Delayed Release (Dr/Ec) 40 mg PO 1230 hyoscyamine sulfate 0.125 mg Tablet 0.125 mg PO DAILY PRN (Reason: Muscle Pain) metformin 1,000 mg Tablet 1,000 mg PO 1230 mupirocin calcium [Bactroban] 2 % Cream 1 appl TOPICAL DAILY PRN (Reason: Skin Irritation) diclofenac sodium [Voltaren] 75 mg Tablet,Delayed Release (Dr/Ec) 75 mg PO DAILY PRN (Reason: Pain) montelukast 10 mg Tablet 10 mg PO 0030 ammonium lactate 12 % Cream 1 appl TOPICAL DAILY hydroxychloroquine 200 mg Tablet 200 mg PO DAILY albuterol sulfate 90 mcg/actuation HFA aerosol inhaler 2 puff PO Q6H loratadine 10 mg Tablet 10 mg PO 0030 insulin lispro [Humalog KwikPen Insulin] 100 unit/mL Insulin Pen 20 unit SUBCUT QIDWMHS cyclobenzaprine [Flexeril] 5 mg Tablet 5 mg PO BID PRN (Reason: Pain) multivitamin 1 tab PO DAILY diazepam 2 mg tablet 2 mg PO BEDTIME PRN (Reason: Anxiety) pramipexole 0.25 mg tablet 0.25 mg PO BEDTIME ropinirole 0.25 mg tablet 0.25 mg PO BEDTIME magnesium oxide 400 mg (241.3 mg magnesium) tablet 400 mg PO BID capsaicin 0.1 % cream 1 appl topical BID Qty: 60 0RF Rx Instructions: do not wash area for at least 30 min after application gabapentin 300 mg capsule 600 mg PO BEDTIME pramipexole 1 mg tablet 0.25 mg PO DAILY naloxone 4 mg/actuation spray,non-aerosol 4 mg intranasal Q2M PRN (Reason: opioid overdose) Qty: 2 0RF Rx Instructions: spray 1 dose into ONE nostril; alternate nostrils w each dose until help arrives Interventions: ED Discharge Assessment Last Done: 01/02/22 23:21 Discharge Date/Time: 01/02/22 23:22
[2022-01-02 17:46] LABS: Anion Gap 15 (12-20); Blood Urea Nitrogen 10 mg/dL (9-16); Calcium 9.5 mg/dL (8.4-10.2); Carbon Dioxide 29 mmol/L (22-29); Chloride 100 mmol/L (96-108); Estimated Glomerular Filt Rate > 60; Glucose Random 256 mg/dL (60-115); Potassium 4.4 mmol/L (3.3-5.1); Sodium 140 mmol/L (135-145)
[2022-01-02 18:08] VITALS: BP 153/87; PULSE 84; RESP 20; TEMP 36.6; O2SAT 95
[2022-01-02] MEDS: oxyCODONE HCl Immed Release 5 MG TABLET 10 MG PO (18:20)
[2022-01-02] MEDS: 0.9 % Sodium Chloride 1,000 ML 999 ML IV (18:21)
[2022-01-02 18:30] LABS: INTERNATIONAL NORM RATIO 1.1 (0.9-1.1); Prothrombin Time 12.3 SEC (10.0-13.1)
[2022-01-02 18:32] LABS: D Dimer High Sensitivity 212 NG/ML; Partial Thromboplastin Time 28.5 SEC (26.0-36.4)
[2022-01-02 18:40] LABS: B Type Natriuretic Peptide < 10 pg/mL (<100)
[2022-01-02 18:53] LABS: COVID-19 Test Negative (Negative); IDNOW Serial# 16C4AD1C
[2022-01-02 19:50] LABS: Appearance Urine Clear; Color Urine Yellow; Glucose Urine UA >=1000 mg/dL (Negative); Leukocyte Esterase Urine Trace (Negative); Nitrite Urine Negative (Negative); UMIC TRIGGER UACC YES; Urine Blood Negative (Negative); Urine Ketones Negative (Negative); Urine Protein Negative (Neg-Trace)
[2022-01-02 19:56] LABS: Bacteria Urine None Seen (None Seen); Hyaline Casts Urine 0-2 /LPF (0-2); RBC Urine 0-2 /HPF (0-2); Squamous Epithelial Cell Urine 0-2 /HPF (0-2); UACC Culture Trigger YES
[2022-01-02] MEDS: iohexoL 350 MG/ML 100 ML INFUS..BTL IV (21:17)
[2022-01-02 21:54] VITALS: BP 150/59; PULSE 84; TEMP 36.8; O2SAT 93
[2022-01-02] MEDS: Doxycycline Monohydrate 100 MG CAPSULE PO (23:15)
== END 2022-01-02 23:22 | disposition home or self-care (01) ==
PROVIDERS: Emergency Medicine; Emergency Provider Internal Medicine; PCP Internal Medicine
DX: R60.0 Localized edema (principal); L03.116 Cellulitis of left lower limb; Z20.822 Contact with and (suspected) exposure to COVID-19; R06.02 Shortness of breath; E11.9 Type 2 diabetes mellitus without complications; D75.1 Secondary polycythemia; F17.210 Nicotine dependence, cigarettes, uncomplicated; G89.4 Chronic pain syndrome; Z79.891 Long term (current) use of opiate analgesic; Z79.82 Long term (current) use of aspirin; Z79.899 Other long term (current) drug therapy; Z79.4 Long term (current) use of insulin
CPT/HCPCS: 36415; 71045; 73600; 73620; 74177; 80048; 81001; 83880; 85025; 85379; 85610; 85730; 87086; 87088; 87186; 87635; 93971; 96360; 96361; 99284; Q9967

== ENCOUNTER 2022-01-07 11:59 | Outpatient (REF) | payer OTHER, SELFPAY | END 2022-01-07 12:00 | disposition home or self-care (01) | LOC: HO.BBR 11:59 | PROVIDERS: Visit Provider Internal Medicine Medical Oncology | DX: D75.1 Secondary polycythemia (principal) | CPT/HCPCS: 85018 ==

== ENCOUNTER 2022-01-14 13:50 | Outpatient (REF) | payer OTHER, SELFPAY | END 2022-01-14 13:51 | disposition home or self-care (01) | LOC: HO.BBR 13:50 | PROVIDERS: Visit Provider Internal Medicine Medical Oncology | DX: D75.1 Secondary polycythemia (principal) | CPT/HCPCS: 85018; 99195 ==

== ENCOUNTER 2022-01-21 07:52 | Outpatient (REF) | payer OTHER, SELFPAY ==
--- NOTE | ~2022-01-21 | XR_ITS ---
EXAMINATION: XR PELVIS CLINICAL INFORMATION: Pain COMPARISON: None TECHNIQUE: Single frontal view of the pelvis obtained. FINDINGS: There is no radiographic evidence of acute fracture or dislocation. There are degenerative hypertrophic changes developed from the acetabular roof bilaterally over covering femoral heads, No osteolytic or osteoblastic lesions. Degenerative osteoarthritic changes of both SI joints.. Adjacent pubic rami are intact. Surrounding soft tissue is unremarkable. XR/XR pelvis 1-2V IMPRESSION: Bilateral moderate degenerative osteoarthritis involving both hip joints, large developed osteophytes from the acetabular roof overhanging covering the femoral head, if there is clinical suspicion for possible femoral acetabular impingement, MRI could be utilized. Bilateral degenerative sacroiliitis.
== END 2022-01-21 07:53 | disposition home or self-care (01) ==
LOC: HO.HOSX 07:52
PROVIDERS: Visit Provider Orthopaedic Surgery
DX: M25.559 Pain in unspecified hip (principal)
CPT/HCPCS: 72170

== ENCOUNTER 2022-02-15 13:50 | Outpatient (REF) | payer OTHER, SELFPAY | END 2022-02-15 13:51 | disposition home or self-care (01) | LOC: HO.BBR 13:50 | PROVIDERS: PCP Internal Medicine; Visit Provider Internal Medicine Medical Oncology | DX: D75.1 Secondary polycythemia (principal) | CPT/HCPCS: 85014; 85018; 99195 ==

== ENCOUNTER → 2022-02-25 13:55 | Outpatient (BNVA) | payer OTHER, SELFPAY | PROVIDERS: PCP Internal Medicine; Visit Provider Internal Medicine Rheumatology | DX: Z13.89 Encounter for screening for other disorder (principal) ==

== ENCOUNTER 2022-03-18 13:55 | Outpatient (REF) | payer OTHER, SELFPAY | END 2022-03-18 13:56 | disposition home or self-care (01) | LOC: HO.BBR 13:55 | PROVIDERS: Visit Provider Internal Medicine Medical Oncology | DX: D75.1 Secondary polycythemia (principal) | CPT/HCPCS: 85014; 85018; 99195 ==

== ENCOUNTER 2022-03-23 08:35 | Outpatient (REF) | payer OTHER, SELFPAY ==
--- NOTE | ~2022-03-23 | XR_ITS ---
EXAMINATION: XR HAND, RIGHT CLINICAL INFORMATION: Rheumatoid arthritis. COMPARISON: None TECHNIQUE: PA, lateral, and oblique views of the right hand. FINDINGS: There is bony demineralization. No fracture or dislocation is seen. There are marginal erosions noted of the first through fifth metacarpophalangeal joints. A marginal erosion is seen of the interphalangeal joint of the thumb. The ulnar styloid is intact. No fracture or dislocation is seen. The proximal and distal carpal rows are intact. No focal soft tissue swelling, gas or foreign body is seen. XR/XR hand RT min 3V IMPRESSION: Marginal erosions are noted, consistent with the provided history of rheumatoid arthritis. EXAMINATION: XR HAND, LEFT CLINICAL INFORMATION: Rheumatoid arthritis. COMPARISON: None TECHNIQUE: PA, lateral, and oblique views of the left hand. FINDINGS: There is bony demineralization. There are subtle marginal erosions noted of the second through fourth metacarpophalangeal joints. The ulnar styloid is intact. No fracture or dislocation is seen. The proximal and distal carpal rows are intact. There is some narrowing of the radiocarpal joint. No focal soft tissue swelling, gas or foreign body is seen. IMPRESSION: 1. As with the contralateral side, marginal erosions are noted of some of the metacarpophalangeal joints, consistent with the provided history of rheumatoid arthritis. 2. There is osteoarthritic change of the radiocarpal joint.
--- NOTE | ~2022-03-23 | XR_ITS ---
EXAMINATION: XR HAND, RIGHT CLINICAL INFORMATION: Rheumatoid arthritis. COMPARISON: None TECHNIQUE: PA, lateral, and oblique views of the right hand. FINDINGS: There is bony demineralization. No fracture or dislocation is seen. There are marginal erosions noted of the first through fifth metacarpophalangeal joints. A marginal erosion is seen of the interphalangeal joint of the thumb. The ulnar styloid is intact. No fracture or dislocation is seen. The proximal and distal carpal rows are intact. No focal soft tissue swelling, gas or foreign body is seen. XR/XR hand LT min 3V IMPRESSION: Marginal erosions are noted, consistent with the provided history of rheumatoid arthritis. EXAMINATION: XR HAND, LEFT CLINICAL INFORMATION: Rheumatoid arthritis. COMPARISON: None TECHNIQUE: PA, lateral, and oblique views of the left hand. FINDINGS: There is bony demineralization. There are subtle marginal erosions noted of the second through fourth metacarpophalangeal joints. The ulnar styloid is intact. No fracture or dislocation is seen. The proximal and distal carpal rows are intact. There is some narrowing of the radiocarpal joint. No focal soft tissue swelling, gas or foreign body is seen. IMPRESSION: 1. As with the contralateral side, marginal erosions are noted of some of the metacarpophalangeal joints, consistent with the provided history of rheumatoid arthritis. 2. There is osteoarthritic change of the radiocarpal joint.
[2022-03-23 11:04] LABS: Erythrocyte Sedimentation Rate 25 MM/HR (0-20)
[2022-03-23 12:34] LABS: C Reactive Protein 2.52 mg/dL (< or = 0.50)
[2022-03-27 17:38] LABS: Cyclic Citrullinated Peptide <16 UNITS
== END 2022-03-23 08:36 | disposition home or self-care (01) ==
LOC: HO.LAB 08:35
PROVIDERS: PCP Internal Medicine; Visit Provider Internal Medicine Rheumatology
DX: M06.9 Rheumatoid arthritis, unspecified (principal)
CPT/HCPCS: 36415; 73130; 85652; 86140; 86200

== ENCOUNTER 2022-03-24 00:05 | Emergency (ER) | payer OTHER, SELFPAY ==
[2022-03-24 00:07] VITALS: BP 158/80; PULSE 97; RESP 18; TEMP 37; O2SAT 96; BMI 33.7
--- NOTE | 2022-03-24 00:31 | PC.NURSE ---
pt aox4, no respiratory distress, no sob, able to speak in full sentences c/o thrt, shoulder and lower back pain; hemoptysis h/o sjrogens, polycythemia, DMII, rheumatoid arthritis, migraines, bone spurs smoker (cigarettes/1 pack a day)
[2022-03-24 00:39] LABS: MANUAL DIFF FLAG NO
[2022-03-24 00:43] LABS: Basophils Absolute Auto 0.1 X10*3/uL (0.0-0.2); Basophils Percent Auto 1.1 % (0-2); Eosinophils Absolute Auto 0.6 X10*3/uL (0.0-0.4); Eosinophils Percent Auto 5.1 % (0-4); Hematocrit 47.3 % (37.0-47.0); Hemoglobin 15.6 g/dl (12.0-16.0); Imm Gran Abs Auto 0.12 X10*3/uL (0.00-0.03); Imm Gran Pct Auto 1.1 % (0.0-0.4); Lymphocytes Absolute Auto 3.1 X10*3/uL (1.2-4.9); Lymphocytes Percent Auto 27.7 % (20-40); Mean Corpuscular Hemoglobin 29.2 pg (27.0-33.0); Mean Corpuscular Volume 88.6 fL (80.0-98.0); Mean Platelet Volume 10.2 fL (9.4-12.3); Monocytes Absolute Auto 0.7 X10*3/uL (0.1-1.2); Monocytes Percent Auto 6.4 % (2-11); Neutrophils Absolute Auto 6.5 x10*3/uL (2.0-8.3); Neutrophils Percent Auto 58.6 % (45-73); Platelet Count 218 X10*3/uL (160-400); Red Blood Count 5.34 X10*6/uL (4.20-5.50); Red Cell Distribution Width 13.2 % (11.0-16.0)
--- NOTE | 2022-03-24 00:55 | ED.GENADULT ---
HPI - General Adult General Chief complaint: General Medical Stated complaint: Coughing up blood Time Seen by Provider: 03/24/22 00:30 Source: patient Mode of arrival: ambulatory History of Present Illness HPI narrative: 61-year-old female with history of Sjogren's and presents with multiple episodes of blood-tinged sputum, no stigmata of bleeding within the oral cavity, patient states that she was informed by Gastroenterology to come in if this occurred. Related Data Home Medications Medication Instructions Recorded Confirmed albuterol sulfate 90 mcg/actuation 2 puff PO Q6H 09/27/20 02/25/22 aerosol inhaler ammonium lactate 12 % topical cream 1 appl topical DAILY 09/27/20 02/25/22 aspirin 325 mg tablet 325 mg PO 1230 09/27/20 02/25/22 cyclobenzaprine 5 mg tablet 5 mg PO BID PRN Pain 09/27/20 02/25/22 diclofenac sodium 75 mg 75 mg PO DAILY PRN Pain 09/27/20 02/25/22 tablet,delayed release hydroxychloroquine 200 mg tablet 200 mg PO DAILY 09/27/20 02/25/22 hyoscyamine sulfate 0.125 mg tablet 0.125 mg PO DAILY PRN Muscle Pain 09/27/20 02/25/22 insulin lispro 100 unit/mL 20 unit subcut QIDWMHS 09/27/20 02/25/22 subcutaneous pen (Humalog KwikPen (U-100) Insulin) loratadine 10 mg tablet 10 mg PO 0030 09/27/20 02/25/22 montelukast 10 mg tablet 10 mg PO 0030 09/27/20 02/25/22 multivitamin 1 tab PO DAILY 09/27/20 02/25/22 mupirocin calcium 2 % topical cream 1 appl topical DAILY PRN Skin 09/27/20 02/25/22 Irritation diazepam 2 mg tablet 2 mg PO BEDTIME PRN Anxiety 11/21/20 02/25/22 magnesium oxide 400 mg (241.3 mg 400 mg PO BID 07/09/21 02/25/22 magnesium) tablet pramipexole 0.25 mg tablet 0.25 mg PO BEDTIME 07/09/21 01/28/22 baclofen 10 mg tablet 1 tab PO TID 07/27/21 02/25/22 gabapentin 300 mg capsule 600 mg PO BEDTIME 12/24/21 02/25/22 pramipexole 1 mg tablet 0.25 mg PO DAILY 12/24/21 02/25/22 metformin 1,000 mg tablet 1,000 mg PO BID 02/25/22 02/25/22 Previous Rx's Medication Instructions Recorded capsaicin 0.1 % topical cream 1 appl topical BID #60 grams 07/09/21 naloxone 4 mg/actuation nasal spray 4 mg intranasal Q2M PRN opioid 08/27/21 overdose #2 ea pantoprazole 40 mg granules 40 mg PO DAILY #30 ea 02/05/22 delayed-release for susp in packet clonidine HCl 0.1 mg tablet 0.1 mg PO BID PRN Opioid 02/25/22 withdrawal 28 days #54 tabs oxycodone 10 mg tablet 10 mg PO TID PRN pain 28 days #84 02/25/22 tabs Allergies Allergy/AdvReac Type Severity Reaction Status Date / Time azithromycin [AZITHROMYCIN] Allergy Severe DIFFICULTY Verified 02/25/22 14:09 BREATHING acetaminophen [From TYLENOL] Allergy Unknown ITCHING Verified 02/25/22 14:09 adhesive tape [ADHESIVE TAPE] Allergy Unknown RASH Verified 02/25/22 14:09 atorvastatin [From LIPITOR] Allergy Unknown DIFF Verified 02/25/22 14:09 BREATHING gentamicin [GENTAMICIN] Allergy Unknown RASH Verified 02/25/22 14:09 haloperidol [From HALDOL] Allergy Unknown GI ISSUES Verified 02/25/22 14:09 prasterone (DHEA) [From DHEA] Allergy Unknown CARDIAC Verified 02/25/22 14:09 ISSUES sumatriptan [From IMITREX] Allergy Unknown DIFF Verified 02/25/22 14:09 BREATHING varenicline [From CHANTIX] Allergy Unknown SEIZURE Verified 02/25/22 14:09 adalimumab [From Humira] Allergy Rash Verified 02/25/22 14:09 ketorolac [From TORADOL] AdvReac Unknown Muscle Verified 02/25/22 14:09 cramps dust Allergy Severe Difficulty Uncoded 02/25/22 14:09 Breathing Review of Systems Review of Systems: Pertinent positives and negatives as stated in HPI [facility] Past Medical History Source: nursing notes reviewed Medical History Asthma Boils Bursitis Chronic pain syndrome Chronic, continuous use of opioids COPD (chronic obstructive pulmonary disease) Diabetes Disc degeneration Eczema Fibromyalgia GERD (gastroesophageal reflux disease) 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 Osteoarthritis Osteoarthritis Osteoporosis Polycythemia Rheumatoid arthritis Rheumatoid arthritis Sjogrens syndrome Sjogrens syndrome Sleep apnea Smoker Surgical History History of bladder suspension procedure History of colonoscopy History of esophagogastroduodenoscopy (EGD) History of removal of cyst History of surgical removal of pilonidal cyst Hx of appendectomy Hx of cholecystectomy Hx of hysterectomy Hx of plastic surgery Hx of tonsillectomy Family History Family History Mother Polycythemia Father Heart attack Other No family history of cancer Social History Social History Household Members: Spouse and Children Housing: House Are you a primary administrator health care facility to a significant other at home: No Do you presently have visiting nurse or other home services: No Alcohol intake: never Patient Tobacco Use Status: Current everyday Tobacco user Tobacco use type: Pipe Cigarette Packs Per Day: 1 Cigarettes Per Day: 20.0 Years Smoked: 46 Smoked in Last 30 Days: Yes Second Hand Smoke Exposure: Yes Use of substances other than those prescribed or required for medical reasons: No Advance Directives: Yes Advance Directives on File: Yes Advance Directives Date on File: 12/24/19 service: No Current occupational status: retired 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 Physical Exam ED Vital Signs: Vital Signs - 24 hr 03/24/22 00:07 03/24/22 01:55 Temperature 98.6 F 98.9 F Pulse Rate 97 86 Respiratory Rate 18 14 Blood Pressure 158/80 H 141/70 H Pulse Oximetry 96 92 Oxygen Delivery Method Room Air Room Air BMI result Body Mass Index 33.7 VITAL SIGNS: Reviewed. GENERAL: Well developed, well nourished, in no acute distress. HEAD: Normocephalic/atraumatic EYES: PERRLA, EOMI EARS: Ext canals without abnormality NOSE: Nares patent bilateral OROPHARYNX: no oral lesions noted, posterior pharynx clear, no stigmata of bleeding NECK: Supple, no adenopathy LUNGS: Normal breath sounds. No adventitious sounds or accessory muscle use. SpO2<96> CARDIOVASCULAR: Regular rate and rhythm without noted murmurs, no JVD or lower extremity edema. ABDOMEN: Soft, non-tender, non-distended with bowel sounds. MUSCULOSKELETAL: No tenderness, deformities, or effusions noted on gross inspection. EXTREMITIES: No cyanosis, clubbing or edema. SKIN: Inspection of the skin reveals no rashes NEUROLOGIC: Alert and oriented x 3. Strength and sensation to light touch were grossly intact x 4. Medical Decision Making Medical Decision Making [facility] Narrative: 61-year-old female with what appears to be blood-tinged sputum from the upper airways as it is not associated with any vomiting episodes and therefore I do not consider this a hematemesis or distal esophageal issue. Review of all investigations my interpretation is that this is a combination of her high CPAP settings without adequate humidification in conjunction with underlying Sjogren's. Patient has had no further episodes while here in the emergency room, she is not tachypneic nor she hypoxic. In addition I have noted that she has hyperglycemia, but she had a bagel just prior to arrival and she has no evidence of either DKA or HHS. She has remained hemodynamically stable will be discharged home with a referral to follow-up with J[facility]. Differential Diagnosis Differential Diagnoses: The differential diagnosis associated with the presentation includes Please see the discussion above Lab Data [facility] Lab Attestation statement: I reviewed the patient's lab results. Please see the discussion above 03/24/22 00:26 03/24/22 00:26 Labs: Lab Results 03/24/22 03/24/22 03/24/22 Range/Units 00:26 00:26 00:26 WBC 11.0 H (4.8-10.8) X10*3/uL RBC 5.34 (4.20-5.50) X10*6/uL Hgb 15.6 (12.0-16.0) g/dl Hct 47.3 H (37.0-47.0) % MCV 88.6 (80.0-98.0) fL MCH 29.2 (27.0-33.0) pg MCHC 33.0 (31.0-35.0) g/dl RDW 13.2 (11.0-16.0) % Plt Count 218 (160-400) X10*3/uL MPV 10.2 (9.4-12.3) fL Immature Gran % (Auto) 1.1 H (0.0-0.4) % Neut % (Auto) 58.6 (45-73) % Lymph % (Auto) 27.7 (20-40) % [place] % (Auto) 6.4 (2-11) % Eos % (Auto) 5.1 H (0-4) % Baso % (Auto) 1.1 (0-2) % Lymph # (Auto) 3.1 (1.2-4.9) X10*3/uL [place] # (Auto) 0.7 (0.1-1.2) X10*3/uL Eos # (Auto) 0.6 H (0.0-0.4) X10*3/uL Baso # (Auto) 0.1 (0.0-0.2) X10*3/uL Abs Immat Gran (auto) 0.12 H (0.00-0.03) X10*3/uL Absolute Neuts (auto) 6.5 (2.0-8.3) x10*3/uL Absolute Nucleated RBC 0.000 (0.0-0.012) X10*3/uL Nucleated RBC % (auto) 0.0 (0.0-0.2) /100WBC PT 12.0 (10.0-13.1) SEC INR 1.0 (0.9-1.1) Sodium 131 L (135-145) mmol/L Potassium 4.7 (3.3-5.1) mmol/L Chloride 97 (96-108) mmol/L Carbon Dioxide 21 L (22-29) mmol/L Anion Gap 18 (12-20) BUN 13 (9-16) mg/dL Creatinine 0.85 (0.5-1.4) mg/dL Estim Creat Clear Calc 76.2 Estimated GFR > 60 Random Glucose 477 H* (60-115) mg/dL Calcium 9.2 (8.4-10.2) mg/dL Total Bilirubin 0.3 (0.0-1.0) mg/dL AST 16 (5-31) U/L ALT 18 (0-31) U/L Alkaline Phosphatase 85 (39-117) U/L Total Protein 6.9 (6.5-8.0) g/dL Albumin 4.0 (3.5-5.0) g/dL Lipase 12 (8-78) U/L Urine Opiates Screen (Not Detect) Urine Fentanyl Screen (Not Detect) Ur Barbiturates Screen (Not Detect) Ur Phencyclidine Scrn (Not Detect) Ur Amphetamines Screen (Not Detect) U Benzodiazepines Scrn (Not Detect) Urine Cocaine Screen (Not Detect) U Marijuana (THC) Screen (Not Detect) 03/24/22 Range/Units 01:10 WBC (4.8-10.8) X10*3/uL RBC (4.20-5.50) X10*6/uL Hgb (12.0-16.0) g/dl Hct (37.0-47.0) % MCV (80.0-98.0) fL MCH (27.0-33.0) pg MCHC (31.0-35.0) g/dl RDW (11.0-16.0) % Plt Count (160-400) X10*3/uL MPV (9.4-12.3) fL Immature Gran % (Auto) (0.0-0.4) % Neut % (Auto) (45-73) % Lymph % (Auto) (20-40) % [place] % (Auto) (2-11) % Eos % (Auto) (0-4) % Baso % (Auto) (0-2) % Lymph # (Auto) (1.2-4.9) X10*3/uL [place] # (Auto) (0.1-1.2) X10*3/uL Eos # (Auto) (0.0-0.4) X10*3/uL Baso # (Auto) (0.0-0.2) X10*3/uL Abs Immat Gran (auto) (0.00-0.03) X10*3/uL Absolute Neuts (auto) (2.0-8.3) x10*3/uL Absolute Nucleated RBC (0.0-0.012) X10*3/uL Nucleated RBC % (auto) (0.0-0.2) /100WBC PT (10.0-13.1) SEC INR (0.9-1.1) Sodium (135-145) mmol/L Potassium (3.3-5.1) mmol/L Chloride (96-108) mmol/L Carbon Dioxide (22-29) mmol/L Anion Gap (12-20) BUN (9-16) mg/dL Creatinine (0.5-1.4) mg/dL Estim Creat Clear Calc Estimated GFR Random Glucose (60-115) mg/dL Calcium (8.4-10.2) mg/dL Total Bilirubin (0.0-1.0) mg/dL AST (5-31) U/L ALT (0-31) U/L Alkaline Phosphatase (39-117) U/L Total Protein (6.5-8.0) g/dL Albumin (3.5-5.0) g/dL Lipase (8-78) U/L Urine Opiates Screen POSITIVE H (Not Detect) Urine Fentanyl Screen Not Detected (Not Detect) Ur Barbiturates Screen Not Detected (Not Detect) Ur Phencyclidine Scrn Not Detected (Not Detect) Ur Amphetamines Screen Not Detected (Not Detect) U Benzodiazepines Scrn Not Detected (Not Detect) Urine Cocaine Screen Not Detected (Not Detect) U Marijuana (THC) Screen Not Detected (Not Detect) Chronic Conditions Patient?s care impacted by: Diabetes and Hypertension Discharge Plan Discharge Clinical Impression: Phlegm in throat Patient Disposition: Home, Self-Care Instructions: Chronic Cough (ED), Hemoptysis (ED) Additional Instructions: 1. Resume all home medications as prescribed. 2. I a.m. providing you with the referral to follow-up with ENT, please call the office on Friday morning to set up an appointment. 3. Please follow-up with GI and your primary care provider at your earliest convenience. I would consider discussion with your primary care provider regarding your CPAP settings and adequate humidification. Return to the ER for any worsening symptoms. Prescriptions: No Action pantoprazole [address] for susp in packet 40 mg PO DAILY Qty: 30 3RF oxycodone 10 mg tablet 10 mg PO TID PRN (Reason: pain) 28 Days Qty: 84 0RF Rx Instructions: PF by patient request. Last compassionate script. Recommendation to taper opioid medications by reducing amount of the medications taken a day by 1 pill a week. She will get small dose clonidine to help with opioid withdrawal symptoms. clonidine HCl 0.1 mg tablet 0.1 mg PO BID PRN (Reason: Opioid withdrawal) 28 Days Qty: 54 1RF baclofen 10 mg tablet 1 tab PO TID aspirin 325 mg Tablet 325 mg PO 1230 hyoscyamine sulfate 0.125 mg Tablet 0.125 mg PO DAILY PRN (Reason: Muscle Pain) mupirocin calcium [Bactroban] 2 % Cream 1 appl TOPICAL DAILY PRN (Reason: Skin Irritation) diclofenac sodium [Voltaren] 75 mg Tablet,Delayed Release (Dr/Ec) 75 mg PO DAILY PRN (Reason: Pain) montelukast 10 mg Tablet 10 mg PO 0030 ammonium lactate 12 % Cream 1 appl TOPICAL DAILY hydroxychloroquine 200 mg Tablet 200 mg PO DAILY albuterol sulfate 90 mcg/actuation HFA aerosol inhaler 2 puff PO Q6H loratadine 10 mg Tablet 10 mg PO 0030 insulin lispro [Humalog KwikPen Insulin] 100 unit/mL Insulin Pen 20 unit SUBCUT QIDWMHS cyclobenzaprine [Flexeril] 5 mg Tablet 5 mg PO BID PRN (Reason: Pain) multivitamin 1 tab PO DAILY metformin 1,000 mg tablet 1,000 mg PO BID diazepam 2 mg tablet 2 mg PO BEDTIME PRN (Reason: Anxiety) pramipexole 0.25 mg tablet 0.25 mg PO BEDTIME magnesium oxide 400 mg (241.3 mg magnesium) tablet 400 mg PO BID capsaicin 0.1 % cream 1 appl topical BID Qty: 60 0RF Rx Instructions: do not wash area for at least 30 min after application gabapentin 300 mg capsule 600 mg PO BEDTIME pramipexole 1 mg tablet 0.25 mg PO DAILY naloxone 4 mg/actuation spray,non-aerosol 4 mg intranasal Q2M PRN (Reason: opioid overdose) Qty: 2 0RF Rx Instructions: spray 1 dose into ONE nostril; alternate nostrils w each dose until help arrives Referrals: Dottie Douglass MD [Primary Care Provider] - Rubén Ruiz [Physician] -
[2022-03-24 01:15] LABS: Alanine Aminotransferase 18 U/L (0-31); Alkaline Phosphatase 85 U/L (39-117); Anion Gap 18 (12-20); Aspartate Amino Transferase 16 U/L (5-31); Bilirubin Total 0.3 mg/dL (0.0-1.0); Blood Urea Nitrogen 13 mg/dL (9-16); Calcium 9.2 mg/dL (8.4-10.2); Carbon Dioxide 21 mmol/L (22-29); Chloride 97 mmol/L (96-108); Creatinine Clr Calc Pharmacy 76.2; Estimated Glomerular Filt Rate > 60; Glucose Random 477 mg/dL (60-115); Lipase 12 U/L (8-78); Potassium 4.7 mmol/L (3.3-5.1); Sodium 131 mmol/L (135-145); Total Protein 6.9 g/dL (6.5-8.0)
[2022-03-24 01:26] LABS: Amphetamine Screen Urine Not Detected (Not Detect); Barbiturates, Urine Not Detected (Not Detect); Benzodiazepines Screen Urine Not Detected (Not Detect); Cannabinoid Screen Urine Not Detected (Not Detect); Cocaine Screen Urine Not Detected (Not Detect); Fentanyl, urine Not Detected (Not Detect); Opiate Screen Urine POSITIVE (Not Detect); Phencyclidine Screen Urine Not Detected (Not Detect)
[2022-03-24 01:55] VITALS: BP 141/70; PULSE 86; RESP 14; TEMP 37.2; O2SAT 92
== END 2022-03-24 03:03 | disposition home or self-care (01) ==
PROVIDERS: Emergency Provider Student in an Organized Health Care Education/Training Program; PCP Internal Medicine
DX: R05.9 Cough, unspecified (principal); F17.210 Nicotine dependence, cigarettes, uncomplicated; Z71.6 Tobacco abuse counseling; Z79.899 Other long term (current) drug therapy
CPT/HCPCS: 36415; 80053; 80307; 83690; 85025; 85610; 99284

== ENCOUNTER → 2022-07-22 14:40 | Outpatient (BNVA) | payer BC, SELFPAY | PROVIDERS: PCP Internal Medicine; Visit Provider Internal Medicine Rheumatology ==

== ENCOUNTER 2022-07-24 14:06 | Outpatient (REF) | payer BC, SELFPAY | END 2022-07-24 14:07 | disposition home or self-care (01) | LOC: HO.BBR 14:06 | PROVIDERS: Visit Provider Internal Medicine Medical Oncology | DX: D75.1 Secondary polycythemia (principal) | CPT/HCPCS: 85014; 85018; 99195 ==

== ENCOUNTER → 2022-08-01 13:27 | Outpatient (BNVA) | payer BC, SELFPAY | PROVIDERS: Visit Provider Orthopaedic Surgery ==

== ENCOUNTER 2022-09-02 13:49 | Outpatient (REF) | payer BC, SELFPAY | END 2022-09-02 13:50 | disposition home or self-care (01) | LOC: HO.BBR 13:49 | PROVIDERS: Visit Provider Internal Medicine Medical Oncology | DX: Z13.89 Encounter for screening for other disorder (principal) ==

== ENCOUNTER 2022-09-07 02:28 | Emergency (ER) | payer BC, SELFPAY ==
--- NOTE | ~2022-09-07 | XR_ITS ---
EXAMINATION: XR HAND, RIGHT CLINICAL INFORMATION: Fall COMPARISON: None available. TECHNIQUE: PA, lateral, and oblique views of the right hand. FINDINGS: Osseous alignment is anatomic. There is mild degenerative change in the wrist and generalized osteopenia. No acute fracture is seen. Diffuse soft tissue swelling noted. XR/XR hand RT min 3V IMPRESSION: Soft tissue swelling without acute osseous findings.
--- NOTE | ~2022-09-07 | XR_ITS ---
EXAMINATION: XR SHOULDER, RIGHT CLINICAL INFORMATION: Fall COMPARISON: 08/09/2019 TECHNIQUE: Three views of the right shoulder. FINDINGS: Total right shoulder arthroplasty hardware appears well seated and in anatomic alignment. Redemonstrated heterotopic ossification and surrounding chronic changes of the scapula and humerus. No acute fracture is seen. The acromioclavicular joint is intact with moderate degenerative change. XR/XR shoulder RT min 2V IMPRESSION: No acute findings identified. Chronic and postoperative changes as noted above.
[2022-09-07 02:30] VITALS: BP 141/73; PULSE 91; RESP 16; TEMP 36.7; O2SAT 92; BMI 33.6
[2022-09-07 05:04] VITALS: BP 120/66; PULSE 84; RESP 18; TEMP 36.7; O2SAT 92
--- NOTE | 2022-09-07 05:19 | PC.NURSE ---
Pt had a shoulder injury and surgery in May 2018. around midnight the morning of 09/06, pt lost her balance in the bathroom and fell into the doorway. Since then, pt has been in a lot of pain. Pt has home pain medicine which is not helping. CSM in tact in all 4 extremities. Pt is A&Ox4, GCS 15, with warm, dry skin. X-rays have been taken. Pt waiting to be seen by provider at this time.
[2022-09-07 06:16] VITALS: BP 135/81; PULSE 81; RESP 16; O2SAT 92
--- NOTE | 2022-09-07 07:20 | ED_ITS ---
HPI - Fall General Chief Complaint: Fall Stated Complaint: hit shoulder Time Seen by Provider: 09/07/22 07:05 Source: patient Limitations: no limitations History of Present Illness HPI Narrative: This is a 62 years old female week history of chronic pain syndrome, opioid use disorder, osteoporosis, rheumatoid arthritis presented to the emergency room complaining of right shoulder pain rate and pain she states that she fell about 24 hour ago at home. complaint: fall Onset (ago): day(s) (1) Fall from: standing Fall witnessed: yes, by family Place fall occurred: home Loss of consciousness: none Severity: moderate Quality: sharp and dull Related Data Home Medications Medication Instructions Recorded Confirmed albuterol sulfate 90 mcg/actuation 2 puff PO Q6H 09/27/20 09/02/22 aerosol inhaler ammonium lactate 12 % topical cream 1 appl topical DAILY 09/27/20 09/02/22 aspirin 325 mg tablet 325 mg PO 1230 09/27/20 09/02/22 cyclobenzaprine 5 mg tablet 5 mg PO BID PRN Pain 09/27/20 09/02/22 diclofenac sodium 75 mg 75 mg PO DAILY PRN Pain 09/27/20 09/02/22 tablet,delayed release hydroxychloroquine 200 mg tablet 200 mg PO DAILY 09/27/20 09/02/22 hyoscyamine sulfate 0.125 mg tablet 0.125 mg PO DAILY PRN Muscle Pain 09/27/20 09/02/22 insulin lispro 100 unit/mL 20 unit subcut QIDWMHS 09/27/20 09/02/22 subcutaneous pen (Humalog KwikPen (U-100) Insulin) loratadine 10 mg tablet 10 mg PO 0030 09/27/20 09/02/22 montelukast 10 mg tablet 10 mg PO 0030 09/27/20 09/02/22 mupirocin calcium 2 % topical cream 1 appl topical DAILY PRN Skin 09/27/20 09/02/22 Irritation diazepam 2 mg tablet 2 mg PO BEDTIME PRN Anxiety 11/21/20 09/02/22 magnesium oxide 400 mg (241.3 mg 400 mg PO BID 07/09/21 09/02/22 magnesium) tablet pramipexole 0.25 mg tablet 0.25 mg PO BEDTIME 07/09/21 09/02/22 baclofen 10 mg tablet 1 tab PO TID 07/27/21 09/02/22 gabapentin 300 mg capsule 600 mg PO BEDTIME 12/24/21 09/02/22 pramipexole 1 mg tablet 0.25 mg PO DAILY 12/24/21 09/02/22 metformin 1,000 mg tablet 1,000 mg PO BID 02/25/22 09/02/22 vaobfpm-pgaimfnndf-XBP-caffeine 30 1 cap PO Q4H PRN headache 04/22/22 09/02/22 mg-50 mg-325 mg-40 mg capsule insulin glargine 100 unit/mL 40 unit subcut BEDTIME 04/22/22 09/02/22 subcutaneous solution (Lantus U-100 Insulin) morphine 15 mg tablet,extended 1 tab PO Q12H 04/22/22 09/02/22 release multivitamin 1 tab PO DAILY 04/22/22 09/02/22 Previous Rx's Medication Instructions Recorded capsaicin 0.1 % topical cream 1 appl topical BID #60 grams 07/09/21 naloxone 4 mg/actuation nasal spray 4 mg intranasal Q2M PRN opioid 08/27/21 overdose #2 ea pantoprazole 40 mg granules 40 mg PO DAILY #30 ea 02/05/22 delayed-release for susp in packet sodium,potassium,mag sulfates 17.5 See Rx Instructions PO .COMPLEX 05/20/22 gram-3.13 gram-1.6 gram oral soln #354 mL (Suprep Bowel Prep Kit) oxycodone 5 mg tablet 5 mg PO TID PRN pain #90 tabs 07/22/22 Allergies Allergy/AdvReac Type Severity Reaction Status Date / Time atorvastatin [From LIPITOR] Allergy Severe Difficulty Verified 09/02/22 14:43 Breathing azithromycin [AZITHROMYCIN] Allergy Severe Difficulty Verified 09/02/22 14:43 Breathing mite-Dermatophagoides Allergy Severe Difficulty Verified 09/02/22 14:43 farinae, vicente Breathing [dust mite - [place]] sumatriptan [From IMITREX] Allergy Severe Difficulty Verified 09/02/22 14:43 Breathing acetaminophen [From TYLENOL] Allergy Unknown Itching Verified 09/02/22 14:43 adhesive tape [ADHESIVE TAPE] Allergy Unknown Rash Verified 09/02/22 14:43 gentamicin [GENTAMICIN] Allergy Unknown Rash Verified 09/02/22 14:43 adalimumab [From Humira] Allergy Rash Verified 09/02/22 14:43 haloperidol [From HALDOL] AdvReac Unknown GI Issues Verified 09/02/22 14:43 ketorolac [From TORADOL] AdvReac Unknown Muscle Verified 09/02/22 14:43 cramps prasterone (DHEA) [From DHEA] AdvReac Unknown Cardiac Verified 09/02/22 14:43 issues varenicline [From CHANTIX] AdvReac Unknown Seizure Verified 09/02/22 14:43 Review of Systems Constitutional: Constitutional: Reports no additional constitutional complaints ENT: Reports system reviewed and no additional complaints, except as documented Musculoskeletal: Musculoskeletal: Reports as per HPI and Reports other (Right shoulder pain) [facility] Past Medical History Attestation statement: The following information was validated with the patient. 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 Osteoarthritis Osteoarthritis Osteoporosis Polycythemia Rheumatoid arthritis Rheumatoid arthritis Sjogrens syndrome Sjogrens syndrome Sleep apnea Smoker Surgical History History of bladder suspension procedure History of colonoscopy History of esophagogastroduodenoscopy (EGD) History of removal of cyst History of surgical removal of pilonidal cyst Hx of appendectomy Hx of cholecystectomy Hx of hysterectomy Hx of plastic surgery Hx of tonsillectomy Family History Family History Mother Polycythemia Father Heart attack Other No family history of cancer Social History Social History Household Members: Spouse and Children Housing: House Are you a primary assistant child care teacher to a significant other at home: No Do you presently have visiting nurse or other home services: No Alcohol intake: never Patient Tobacco Use Status: Current everyday Tobacco user Tobacco use type: Pipe Cigarette Packs Per Day: 1 Cigarettes Per Day: 20.0 Years Smoked: 46 Smoked in Last 30 Days: Yes Second Hand Smoke Exposure: Yes Use of substances other than those prescribed or required for medical reasons: No Advance Directives: Yes Advance Directives on File: Yes Advance Directives Date on File: 12/24/19 Patient : No service: No Current occupational status: retired 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 Physical Exam Vital Signs: Vital Signs: Last Vital Signs Temp 98.1 F 09/07/22 05:04 Pulse 81 09/07/22 06:16 Resp 16 09/07/22 06:16 BP 135/81 09/07/22 06:16 Pulse Ox 92 09/07/22 06:16 O2 Del Method Room Air 09/07/22 06:16 BMI result Body Mass Index 33.6 Const: General: cooperative Nutritional Appearance: well nourished Orientation/consciousness: patient oriented x3 Limitations: no limitations HEENT: Head: Yes normal to inspection Ears: hearing grossly normal bilaterally Face and sinus: Yes normal facial exam Neck: Neck: Yes normal visual inspection Thyroid: Thyroid normal Chest: Chest palpation & inspection: normal inspection of the chest Resp: Effort & Inspection: normal respiratory effort Cardio: Jugular venous distension: no JVD Rhythm: regular rhythm GI: Inspection: Yes normal to inspection Palpation (GI): Soft to palpation, not firm and nontender Auscultation: normal bowel sounds Skin: General skin exam: no rashes or lesions noted Neuro: General: patient oriented x3 Cranial nerves: Yes CN's II-XII intact bilaterally Extrem: Other: There is tenderness in the right shoulder with decreased range of motion also tenderness rt hand no deformity appreciated Course Reevaluation(s) Reevaluation #1: X-ray negative patient appears comfortable will discharge home Time: 07:39 Medical Decision Making Medical Decision Making MDM Narrative: Present with right shoulder pain after an injury will do x-ray and reassess Differential Diagnosis Differential Diagnoses: The differential diagnosis associated with the presentation includes Shoulder fracture/shoulder dislocation/rotator cuff tear Admission/Observation Consideration of admission/observation: Escalation of care including admission/observation considered Independent Interpretation I performed an independent interpretation of an: Plain X-Ray Interpretation: I personally reviewed the x-ray agree with the radiology reading Radiology Impression Discussion of test interpretation with radiology: I have reviewed the radiologist's reading. Independent Historian Clinical information obtained from an independent historian. History obtained from or confirmed by: Spouse () External Record Review External record reviewed: Inpatient record Prescription Management I considered prescription management with: Pain Medication I considered an orthotic about the patient he has chronic pain syndrome opioid use disorder Chronic Conditions chronic pain Discharge Plan Discharge Clinical Impression: Right shoulder pain, Contusion Patient Disposition: Home, Self-Care Instructions: Shoulder Pain (ED) Additional Instructions: Follow-up with your primary care physician return if you are worse Prescriptions: No Action pantoprazole [address] for susp in packet 40 mg PO DAILY Qty: 30 3RF insulin glargine [Lantus U-100 Insulin] 100 unit/mL solution 40 unit subcut BEDTIME xqeajhu-kgscjjojqw-PGU-caff 17-23-160-40 mg capsule 1 cap PO Q4H PRN (Reason: headache) morphine 15 mg tablet extended release 1 tab PO Q12H multivitamin Tablet 1 tab PO DAILY Suprep Bowel Prep Kit 17.5-3.13-1.6 gram recon soln See Rx Instructions PO .COMPLEX Qty: 354 0RF Rx Instructions: DILUTE; drink full amount early evening baclofen 10 mg tablet 1 tab PO TID aspirin 325 mg Tablet 325 mg PO 1230 hyoscyamine sulfate 0.125 mg Tablet 0.125 mg PO DAILY PRN (Reason: Muscle Pain) mupirocin calcium [Bactroban] 2 % Cream 1 appl TOPICAL DAILY PRN (Reason: Skin Irritation) diclofenac sodium [Voltaren] 75 mg Tablet,Delayed Release (Dr/Ec) 75 mg PO DAILY PRN (Reason: Pain) montelukast 10 mg Tablet 10 mg PO 0030 ammonium lactate 12 % Cream 1 appl TOPICAL DAILY hydroxychloroquine 200 mg Tablet 200 mg PO DAILY albuterol sulfate 90 mcg/actuation HFA aerosol inhaler 2 puff PO Q6H loratadine 10 mg Tablet 10 mg PO 0030 insulin lispro [Humalog KwikPen Insulin] 100 unit/mL Insulin Pen 20 unit SUBCUT QIDWMHS cyclobenzaprine [Flexeril] 5 mg Tablet 5 mg PO BID PRN (Reason: Pain) metformin 1,000 mg tablet 1,000 mg PO BID diazepam 2 mg tablet 2 mg PO BEDTIME PRN (Reason: Anxiety) pramipexole 0.25 mg tablet 0.25 mg PO BEDTIME magnesium oxide 400 mg (241.3 mg magnesium) tablet 400 mg PO BID capsaicin 0.1 % cream 1 appl topical BID Qty: 60 0RF Rx Instructions: do not wash area for at least 30 min after application gabapentin 300 mg capsule 600 mg PO BEDTIME pramipexole 1 mg tablet 0.25 mg PO DAILY naloxone 4 mg/actuation spray,non-aerosol 4 mg intranasal Q2M PRN (Reason: opioid overdose) Qty: 2 0RF Rx Instructions: spray 1 dose into ONE nostril; alternate nostrils w each dose until help arrives oxycodone 5 mg tablet 5 mg PO TID PRN (Reason: pain) Qty: 90 0RF Rx Instructions: Partial Fill upon patient request. Referrals: Physician,Unknown J [Primary Care Provider] - 2 days
== END 2022-09-07 07:50 | disposition home or self-care (01) ==
PROVIDERS: Emergency Provider Emergency Medicine
DX: S40.011A Contusion of right shoulder, initial encounter (principal); S60.221A Contusion of right hand, initial encounter; W19.XXXA Unspecified fall, initial encounter; Y93.9 Activity, unspecified; Y92.009 Unspecified place in unspecified non-institutional (private) residence as the place of occurrence of the external cause; Y99.9 Unspecified external cause status; M25.511 Pain in right shoulder; G89.4 Chronic pain syndrome; E11.9 Type 2 diabetes mellitus without complications; M35.00 Sjogren syndrome, unspecified
CPT/HCPCS: 73030; 73130; 99284

== ENCOUNTER 2022-10-11 11:55 | Outpatient (REF) | payer BC, SELFPAY ==
--- NOTE | ~2022-10-11 | XR_ITS ---
STUDY: CHEST AND ABDOMEN INDICATION: Epigastric pain COMPARISON: 01/02/2022 chest TECHNIQUE: PA and lateral chest, single view abdomen. FINDINGS: Chest: Heart, mediastinum, pulmonary vessels and lung cavanaugh within normal limits. Right shoulder replacement. Abdomen: Nonspecific bowel pattern with hard stool in the colon. Solid visceral outlines are somewhat obscured. No abnormal calcifications. Cholecystectomy clips and herniorrhaphy material lower pelvis. Bilateral acetabular bony proliferation likely resulting in impingements. Degenerative changes. XR/XR chest 2V IMPRESSION: No acute cardiopulmonary disease. Constipation.
--- NOTE | ~2022-10-11 | XR_ITS ---
STUDY: CHEST AND ABDOMEN INDICATION: Epigastric pain COMPARISON: 01/02/2022 chest TECHNIQUE: PA and lateral chest, single view abdomen. FINDINGS: Chest: Heart, mediastinum, pulmonary vessels and lung cavanaugh within normal limits. Right shoulder replacement. Abdomen: Nonspecific bowel pattern with hard stool in the colon. Solid visceral outlines are somewhat obscured. No abnormal calcifications. Cholecystectomy clips and herniorrhaphy material lower pelvis. Bilateral acetabular bony proliferation likely resulting in impingements. Degenerative changes. XR/XR KUB IMPRESSION: No acute cardiopulmonary disease. Constipation.
[2022-10-11 13:50] LABS: Basophils Absolute Auto 0.1 X10*3/uL (0.0-0.2); Basophils Percent Auto 0.7 % (0-2); Eosinophils Absolute Auto 0.5 X10*3/uL (0.0-0.4); Eosinophils Percent Auto 4.3 % (0-4); Hematocrit 50.8 % (37.0-47.0); Imm Gran Pct Auto 0.8 % (0.0-0.4); Lymphocytes Absolute Auto 2.9 X10*3/uL (1.2-4.9); Lymphocytes Percent Auto 22.8 % (20-40); MANUAL DIFF FLAG NO; Mean Corpuscular HGB Conc 33.5 g/dl (31.0-35.0); Mean Corpuscular Hemoglobin 29.2 pg (27.0-33.0); Mean Corpuscular Volume 87.1 fL (80.0-98.0); Mean Platelet Volume 9.8 fL (9.4-12.3); Monocytes Absolute Auto 0.8 X10*3/uL (0.1-1.2); Neutrophils Absolute Auto 8.3 x10*3/uL (2.0-8.3); Neutrophils Percent Auto 65.4 % (45-73); Platelet Count 278 X10*3/uL (160-400); Red Blood Count 5.83 X10*6/uL (4.20-5.50); White Blood Count 12.7 X10*3/uL (4.8-10.8)
[2022-10-11 13:59] LABS: Appearance Urine Cloudy; Color Urine Yellow; Glucose Urine UA >=1000 mg/dL (Negative); Leukocyte Esterase Urine Trace (Negative); Nitrite Urine Positive (Negative); PH 6.5 (5.0-9.0); Specific Gravity - Urine >= 1.030 (1.005-1.025); UMIC TRIGGER UACC YES; Urine Blood Negative (Negative); Urine Ketones Trace mg/dL (Negative); Urine Protein Negative (Neg-Trace)
[2022-10-11 14:08] LABS: Bacteria Urine 4+ (None Seen); Hyaline Casts Urine 0-2 /LPF (0-2); UACC Culture Trigger YES
[2022-10-11 14:27] LABS: Erythrocyte Sedimentation Rate 30 MM/HR (0-20)
[2022-10-11 14:41] LABS: Alanine Aminotransferase 13 U/L (0-31); Albumin Level 3.9 g/dL (3.5-5.0); Alkaline Phosphatase 89 U/L (39-117); Anion Gap 14 (12-20); Aspartate Amino Transferase 15 U/L (5-31); Bilirubin Total 0.4 mg/dL (0.0-1.0); Blood Urea Nitrogen 13 mg/dL (9-16); C Reactive Protein 3.23 mg/dL (< or = 0.50); Calcium 9.6 mg/dL (8.4-10.2); Carbon Dioxide 26 mmol/L (22-29); Chloride 96 mmol/L (96-108); Estimated Glomerular Filt Rate > 60; Glucose Random 321 mg/dL (60-115); Iron 48 mcg/dL (30-160); Magnesium 1.7 mg/dL (1.6-2.6); Percent Iron Saturation 15 % (15-50); Potassium 4.4 mmol/L (3.3-5.1); Sodium 132 mmol/L (135-145); Total Iron Binding Capacity 319 mcg/dL (228-428); Total Protein 7.5 g/dL (6.5-8.0); Unsaturated Iron Binding 271 ug/dL
[2022-10-11 14:55] LABS: Ferritin 33 ng/mL (10-250)
[2022-10-11 15:07] LABS: Folate 13.4 ng/mL (> or = 4.0); Vitamin B12 598 pg/mL (200-900)
[2022-10-17 17:53] LABS: Vitamin C 0.7 mg/dL (0.3-2.7)
== END 2022-10-11 11:56 | disposition home or self-care (01) ==
LOC: HO.XRAY 11:55
PROVIDERS: PCP Internal Medicine; Visit Provider Internal Medicine Gastroenterology
DX: K75.81 Nonalcoholic steatohepatitis (NASH) (principal); K59.00 Constipation, unspecified; R05.9 Cough, unspecified; R10.13 Epigastric pain; E11.9 Type 2 diabetes mellitus without complications
CPT/HCPCS: 36415; 71046; 74018; 80053; 81001; 81003; 82180; 82550; 82607; 82728; 82746; 83540; 83735; 85025; 85652; 86140; 87086; 87088; 87186

== ENCOUNTER 2022-10-11 11:55 | Outpatient (AMB) | payer BC, SELFPAY ==
--- NOTE | 2022-10-11 12:03 | A.OFFVIS_ITS ---
Intake Vital Signs 10/11/22 12:06 Height 5 ft 4 in Weight 194 lb BMI 33.3 BP 135/63 Blood Pressure Location Lt brachial Position Sitting Pulse 92 Intake Visit Reasons: Discuss Prep Options Intake Note: Patient follow up for prep discussion options. Patient cc: abdominal pain on and off, and center abdominal pain. Denies any other GI issues. 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 Accompanied by: Spouse Allergies atorvastatin [From LIPITOR] Allergy (Severe, Verified 09/02/22 14:43) Difficulty Breathing azithromycin [AZITHROMYCIN] Allergy (Severe, Verified 09/02/22 14:43) Difficulty Breathing mite-Dermatophagoides farinae, vicente [dust mite - [place]] Allergy (Severe, Verified 09/02/22 14:43) Difficulty Breathing sumatriptan [From IMITREX] Allergy (Severe, Verified 09/02/22 14:43) Difficulty Breathing acetaminophen [From TYLENOL] Allergy (Unknown, Verified 09/02/22 14:43) Itching adhesive tape [ADHESIVE TAPE] Allergy (Unknown, Verified 09/02/22 14:43) Rash gentamicin [GENTAMICIN] Allergy (Unknown, Verified 09/02/22 14:43) Rash adalimumab [From Humira] Allergy (Verified 09/02/22 14:43) Rash haloperidol [From HALDOL] Adverse Reaction (Unknown, Verified 09/02/22 14:43) GI Issues ketorolac [From TORADOL] Adverse Reaction (Unknown, Verified 09/02/22 14:43) Muscle cramps prasterone (DHEA) [From DHEA] Adverse Reaction (Unknown, Verified 09/02/22 14:43) Cardiac issues varenicline [From CHANTIX] Adverse Reaction (Unknown, Verified 09/02/22 14:43) Seizure HPI Discuss Prep Options HPI Details 62 yr old f with? history of Sjogren's syndrome, smoking, SECONDARY erythrocytosis (DAVID neg), DM, TENISHA, fibromyalgia,? and rheumatoid arthritis being seen for follow up RECAP: She had lost a lot of weight 346#--194# for 18 months she was c/o epigastric pain when she eats she sticks to apples and pasta which is ok beef is the worst ok with sea food she denied nausea and vomiting appetite is poor she had early satiety, feeling full all the time on PPI--not helping above sx she has had diarrhea for life, on chronic imodium and levsin colonoscopy 01/2020 with Panich and had polpy removed --hyperplastic per path CT chest at [facility]-- no report, personally reviewed, pancreas looks ok, stomach contracted, some cntrast like material in stomach gliadin AB was positive DEXA: pos for osteopenia EGD/[place] 12/07 Endoscopy Findings: inlet patch 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 Duodenum, biopsy:? Chronic inactive duodenitis with Calderon gland hyperplasia. B.? Stomach, biopsy:? Antral-type and oxyntic mucosa with mild chronic inactive inflammation; no Helicobacter organisms seen. C.? GE junction, biopsy: - Cardiofundic-type mucosa with mild chronic, focally active, inflammation; no intestinal metaplasia seen. - Chronic esophagitis. D.? Esophagus, random, biopsy:? Squamous epithelium within normal limits; no inflammation seen. E.? Terminal ileum, biopsy:? Small intestinal mucosa within normal limits. F.? Colon, right, biopsy:? Focally active colitis. G.? Colon, left and transverse, biopsy:? Colonic mucosa within normal limits. H.? Rectum, biopsy:? Rectal mucosa within normal limits. INTERIM: she has had 10/10 pressure pain epigastric area, with nausea she has small vol bowel movements--passing gas, no blood appetite is poor weight has been stable pain can be worse with soup no fevers no chest pain, no SOB, has chronic cough, no sputum, denies urine don or dysuria has been taking pantoprazole daily taking morphine, 15 MST BID, oxycodone TID prn--not helping her abdo pain coughs a lot in the morning, has fits, sometimes with blood--going on for long time EXAM: GENERAL: The patient is overweight VITAL SIGNS:see workflow HEENT: Nonicteric sclerae, PERRLA, EOMI. Oropharynx clear. Moist mucous membranes. Conjunctivae appear well perfused. No thyroid mass. CHEST: Chest wall is nontender. HEART: Regular rate and rhythm without murmurs. LUNGS: Clear to auscultation bilaterally. ABDOMEN: Soft, positive bowel sounds, tender mid and upper abdomen, no organomegaly.no flank tenderness SKIN: No rash, no excessive bruising, petechiae, or purpura. NEUROLOGIC: Cranial nerves II-XII intact without motor/sensory deficit. A/P 1/ Epigastric pain,ddx; muscular, PUD, partial obstrcution, constipation, narcotic bowel syndrome, gastroparesis from narc use 2/ cough, chronic maybe causing upper abdominal muscle pain PLAN: 1/ KUB, CXR 2/ UA, labs, 3/ EGD in 1 week for further assessment? 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 Osteoarthritis Osteoarthritis Osteoporosis Polycythemia Rheumatoid arthritis Rheumatoid arthritis Sjogrens syndrome Sjogrens syndrome Sleep apnea Smoker Surgical History History of bladder suspension procedure History of colonoscopy History of esophagogastroduodenoscopy (EGD) History of removal of cyst History of surgical removal of pilonidal cyst Hx of appendectomy Hx of cholecystectomy Hx of hysterectomy Hx of plastic surgery Hx of tonsillectomy Family History Mother Polycythemia Father Heart attack Other No family history of cancer Social History Household Members: Spouse and Children Housing: House Are you a primary child caregiver to a significant other at home: No Do you presently have visiting nurse or other home services: No Alcohol intake: never Patient Tobacco Use Status: Current everyday Tobacco user Tobacco use type: Pipe Cigarette Packs Per Day: 1 Cigarettes Per Day: 20.0 Years Smoked: 46 Second Hand Smoke Exposure: Yes Advance Directives Date on File: 12/24/19 service: No Current occupational status: retired 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 Physical Exam Vital Signs: Last Vital Signs Pulse 92 10/11/22 12:06 BP 135/63 10/11/22 12:06 BMI result Body Mass Index 33.3 Assessment & Plan Assessment & Plan (1) Epigastric abdominal pain: Code(s): R10.13 - Epigastric pain (2) Constipation: Code(s): K59.00 - Constipation, unspecified (3) Cough: Code(s): R05.9 - Cough, unspecified Orders: Orders Vitamin B12 and Folate Today K59.00 - Constipation, unspecified, R05.9 - Cough, unspecified, R10.13 - Epigastric pain Creatine Kinase Total Today K59.00 - Constipation, unspecified, R05.9 - Cough, unspecified, R10.13 - Epigastric pain Comprehensive Met. Panel Today K59.00 - Constipation, unspecified, K75.81 - Nonalcoholic steatohepatitis (AM[place]OR), R05.9 - Cough, unspecified, R10.13 - Epigastric pain C Reactive Protein Today K59.00 - Constipation, unspecified, R05.9 - Cough, unspecified, R10.13 - Epigastric pain Ferritin Today K59.00 - Constipation, unspecified, R05.9 - Cough, unspecified, R10.13 - Epigastric pain IRON PROFILE Today K59.00 - Constipation, unspecified, R05.9 - Cough, unspecified, R10.13 - Epigastric pain Magnesium Today K59.00 - Constipation, unspecified, R05.9 - Cough, unspecified, R10.13 - Epigastric pain Vitamin C Today K59.00 - Constipation, unspecified, R05.9 - Cough, unspecified, R10.13 - Epigastric pain Complete Blood Count Auto Diff Today K59.00 - Constipation, unspecified, R05.9 - Cough, unspecified, R10.13 - Epigastric pain Erythrocyte Sedimentation Rate Today K59.00 - Constipation, unspecified, R05.9 - Cough, unspecified, R10.13 - Epigastric pain UA CC w/rflx Micro + Cult Today K59.00 - Constipation, unspecified, R05.9 - Cough, unspecified, R10.13 - Epigastric pain, R30.0 - Dysuria XR chest 2V Today K59.00 - Constipation, unspecified, R05.9 - Cough, unspecified, R10.13 - Epigastric pain XR KUB Today K59.00 - Constipation, unspecified, R05.9 - Cough, unspecified, R10.13 - Epigastric pain Coding Level of Care Code Est Pt Level 4 (84497) Diagnoses Epigastric abdominal pain R10.13 Constipation K59.00 Cough R05.9
[2022-10-11 12:06] VITALS: BP 135/63; PULSE 92; BMI 33.3
== END 2022-10-11 12:29 | disposition home or self-care (01) ==
PROVIDERS: Visit Provider Internal Medicine Gastroenterology
DX: R10.13 Epigastric pain (principal); K59.00 Constipation, unspecified; R05.9 Cough, unspecified
CPT/HCPCS: 99214

== ENCOUNTER → 2022-10-15 10:59 | Day surgery (SDC) | payer BC, SELFPAY ==
--- NOTE | 2022-10-14 11:54 | HO.ANESPROP2 ---
HPI - Anesthesia Eval Consult details Narrative: Pt cx'd DOS d/t poor pulmo status and sjogrens. Message to PCP (Dr Douglass) for f/u and optimization. Pt has appointment 11/01/22 and will address above. 62yo F for Upper Endoscopy Polycythemia with therapeutic phlebotomies. Last 08/2022 *Hx DI* *Multiple Allergies* Chronic opiate use PMFSH Active Problems Active Problems: All Active Problems (Updated 10/14/22 @ 10:52 by Ling Bose RN) Erythrocytosis (Acute) Right knee pain (Acute) Back pain (Acute) Status post reverse arthroplasty of right shoulder (Acute) Osteoarthritis of left shoulder (Acute) Myofascial pain (Acute) Osteoarthritis of right hip (Acute) Left leg cellulitis (Acute) Rheumatoid factor positive (Acute) Osteoarthritis of lumbar spine (Acute) residential use of drug (Acute) Epigastric abdominal pain (Acute) Constipation (Acute) Cough (Acute) Chronic pain syndrome (Acute) residential (current) use of opiate analgesic (Acute) Osteoporosis (Acute) Sjogrens syndrome (Acute) Rheumatoid arthritis (Acute) Osteoarthritis (Acute) Diabetes (Acute) Fibromyalgia (Acute) Past Medical History Medical History Asthma Boils Bursitis Chronic pain syndrome Chronic, continuous use of opioids COPD (chronic obstructive pulmonary disease) Diabetes Disc degeneration Eczema Fibromyalgia GERD (gastroesophageal reflux disease) Hx of difficult intubation residential (current) use of opiate analgesic Osteoarthritis Osteoporosis Polycythemia Rheumatoid arthritis Sjogrens syndrome Sleep apnea Smoker Family History Family History Mother Polycythemia Father Heart attack Other No family history of cancer Family history of problems with anesthesia: No Surgical History Surgical History History of bladder suspension procedure History of colonoscopy History of esophagogastroduodenoscopy (EGD) History of removal of cyst History of surgical removal of pilonidal cyst Hx of appendectomy Hx of cholecystectomy Hx of hysterectomy Hx of plastic surgery Hx of tonsillectomy History of Problems with Anesthesia: No Social History Social History Household Members: Spouse and Children Housing: House Are you a primary med care manager to a significant other at home: No Do you presently have visiting nurse or other home services: No Alcohol intake: never Patient Tobacco Use Status: Current everyday Tobacco user Tobacco use type: Cigarette Cigarette Packs Per Day: 1 Cigarettes Per Day: 20.0 Years Smoked: 46 Second Hand Smoke Exposure: Yes Advance Directives Date on File: 12/24/19 service: No Current occupational status: retired 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 Meds Allergies Allergy/AdvReac Type Severity Reaction Status Date / Time atorvastatin [From LIPITOR] Allergy Severe Difficulty Verified 09/02/22 14:43 Breathing azithromycin [AZITHROMYCIN] Allergy Severe Difficulty Verified 09/02/22 14:43 Breathing mite-Dermatophagoides Allergy Severe Difficulty Verified 09/02/22 14:43 farinae, vicente Breathing [dust mite - [place]] sumatriptan [From IMITREX] Allergy Severe Difficulty Verified 09/02/22 14:43 Breathing acetaminophen [From TYLENOL] Allergy Unknown Itching Verified 09/02/22 14:43 adhesive tape [ADHESIVE TAPE] Allergy Unknown Rash Verified 09/02/22 14:43 gentamicin [GENTAMICIN] Allergy Unknown Rash Verified 09/02/22 14:43 adalimumab [From Humira] Allergy Rash Verified 09/02/22 14:43 haloperidol [From HALDOL] AdvReac Unknown GI Issues Verified 09/02/22 14:43 ketorolac [From TORADOL] AdvReac Unknown Muscle Verified 09/02/22 14:43 cramps prasterone (DHEA) [From DHEA] AdvReac Unknown Cardiac Verified 09/02/22 14:43 issues varenicline [From CHANTIX] AdvReac Unknown Seizure Verified 09/02/22 14:43 Home Medications Medication Instructions Recorded Confirmed Last Taken Type albuterol sulfate 90 mcg/actuation 2 puff PO Q6H 09/27/20 09/02/22 10/15/22 10:00 History aerosol inhaler ammonium lactate 12 % topical cream 1 appl topical DAILY 09/27/20 09/02/22 09/26/20 History aspirin 325 mg tablet 325 mg PO 1230 09/27/20 09/02/22 09/26/20 History cyclobenzaprine 5 mg tablet 5 mg PO BID PRN Pain 09/27/20 09/02/22 09/26/20 History diclofenac sodium 75 mg 75 mg PO DAILY PRN Pain 09/27/20 09/02/22 09/26/20 History tablet,delayed release hydroxychloroquine 200 mg tablet 200 mg PO DAILY 09/27/20 09/02/22 09/26/20 History hyoscyamine sulfate 0.125 mg tablet 0.125 mg PO DAILY PRN Muscle Pain 09/27/20 09/02/22 09/26/20 History insulin lispro 100 unit/mL 20 unit subcut QIDWMHS 09/27/20 09/02/22 09/26/20 History subcutaneous pen (Humalog KwikPen (U-100) Insulin) loratadine 10 mg tablet 10 mg PO 0030 09/27/20 09/02/22 09/26/20 History montelukast 10 mg tablet 10 mg PO 0030 09/27/20 09/02/22 09/26/20 History mupirocin calcium 2 % topical cream 1 appl topical DAILY PRN Skin 09/27/20 09/02/22 09/26/20 History Irritation diazepam 2 mg tablet 2 mg PO BEDTIME PRN Anxiety 11/21/20 09/02/22 Unknown History magnesium oxide 400 mg (241.3 mg 400 mg PO BID 07/09/21 09/02/22 Unknown History magnesium) tablet pramipexole 0.25 mg tablet 0.25 mg PO BEDTIME 07/09/21 09/02/22 Unknown History baclofen 10 mg tablet 1 tab PO TID 07/27/21 09/02/22 Unknown History gabapentin 300 mg capsule 600 mg PO BEDTIME 12/24/21 09/02/22 Unknown History pramipexole 1 mg tablet 0.25 mg PO DAILY 12/24/21 09/02/22 Unknown History metformin 1,000 mg tablet 1,000 mg PO BID 02/25/22 09/02/22 Unknown History cikigvb-gwsquocpgi-FTK-caffeine 30 1 cap PO Q4H PRN headache 04/22/22 09/02/22 Unknown History mg-50 mg-325 mg-40 mg capsule morphine 15 mg tablet,extended 1 tab PO Q12H 04/22/22 09/02/22 Unknown History release multivitamin 1 tab PO DAILY 04/22/22 09/02/22 Unknown History insulin glargine-yfgn 100 unit/mL 40 unit subcut BEDTIME 10/15/22 10/15/22 Unknown History subcutaneous solution (Semglee (insulin glargine-yfgn)) oxycodone 5 mg tablet 15 mg PO BID 10/15/22 10/15/22 10:00 History Exam Exam Date and Time: October 14, 2022 1154 Pertinent Lab Results Pertinent Lab Results: Laboratory Tests 10/11/22 10/11/22 12:38 Unknown WBC 12.7 H Hgb 17.0 H Hct 50.8 H Plt Count 278 Sodium 132 L Potassium 4.4 Chloride 96 Carbon Dioxide 26 BUN 13 Creatinine 0.79 Assessment and Plan Assessment Anesthesia Assessment: Chart Reviewed Final Anesthetic Review Family History of Problems with Anesthesia: No History of Problems with Anesthesia: No
[2022-10-15 11:07] VITALS: BMI 33.3
[2022-10-15 11:26] VITALS: BP 160/88; PULSE 98; RESP 18; TEMP 36.7; O2SAT 90
[2022-10-15 11:33] LABS: Glucose, Whole Blood 347 mg/dL (60-115)
--- NOTE | 2022-10-15 11:42 | P.HPSUR_ITS ---
Pre-Procedural Eval Section A Date of Service: 10/15/22 The patient is an INPATIENT: No The History & Physical has been completed within 30 days and I have reviewed it.: Yes Section B Chief Complaint: Epigastric pain,cough Allergies: Allergies Allergy/AdvReac Type Severity Reaction Status Date / Time atorvastatin [From LIPITOR] Allergy Severe Difficulty Verified 09/02/22 14:43 Breathing azithromycin [AZITHROMYCIN] Allergy Severe Difficulty Verified 09/02/22 14:43 Breathing mite-Dermatophagoides Allergy Severe Difficulty Verified 09/02/22 14:43 farinae, vicente Breathing [dust mite - [place]] sumatriptan [From IMITREX] Allergy Severe Difficulty Verified 09/02/22 14:43 Breathing acetaminophen [From TYLENOL] Allergy Unknown Itching Verified 09/02/22 14:43 adhesive tape [ADHESIVE TAPE] Allergy Unknown Rash Verified 09/02/22 14:43 gentamicin [GENTAMICIN] Allergy Unknown Rash Verified 09/02/22 14:43 adalimumab [From Humira] Allergy Rash Verified 09/02/22 14:43 haloperidol [From HALDOL] AdvReac Unknown GI Issues Verified 09/02/22 14:43 ketorolac [From TORADOL] AdvReac Unknown Muscle Verified 09/02/22 14:43 cramps prasterone (DHEA) [From DHEA] AdvReac Unknown Cardiac Verified 09/02/22 14:43 issues varenicline [From CHANTIX] AdvReac Unknown Seizure Verified 09/02/22 14:43 Plan Diagnosis/Plan: Unchanged I have reviewed the history and physical and performed a pertinent physical examination on my patient. No changes have occurred unless specified. Time Spent With Patient Time: Total time managing care of this patient today ____ minutes.
[2022-10-15] MEDS: Lactated Ringers 1,000 ML 100 ML IVCONT (12:06)
[2022-10-15] MEDS: Albuterol/Iprat 2.5/0.5MG 3 ML AMPUL.NEB INHALE (12:38)
[2022-10-15 12:40] VITALS: PULSE 94; RESP 20; O2SAT 94
--- NOTE | 2022-10-15 13:10 | PC.NURSE ---
PATIENT SITTING UP IN BED AND DROPPED TO 89-90 PERCENT ROOM AIR. HOB 90 DEGREES. MD ARENAS BY BEDSIDE AND ANESTHESIA BY BEDSIDE REEVALUYATING PATIENT. DUONEB BREATHING TREATMENT ALREDY GIVEN
== END ==
PROVIDERS: PCP Internal Medicine; Visit Provider Internal Medicine Gastroenterology
DX: R10.13 Epigastric pain (principal); Z53.09 Procedure and treatment not carried out because of other contraindication; R06.09 Other forms of dyspnea; J44.9 Chronic obstructive pulmonary disease, unspecified; R05.9 Cough, unspecified; M35.00 Sjogren syndrome, unspecified; F17.211 Nicotine dependence, cigarettes, in remission; E11.9 Type 2 diabetes mellitus without complications; Z79.4 Long term (current) use of insulin
CPT/HCPCS: 82947; 94640

== ENCOUNTER 2022-10-15 13:35 | Outpatient (REF) | payer BC, SELFPAY ==
--- NOTE | ~2022-10-15 | XR_ITS ---
EXAMINATION: XR ABDOMEN KUB CLINICAL INDICATION: Epigastric pain COMPARISON: 10/11/2022 TECHNIQUE: AP view of the abdomen. FINDINGS: Lung bases are unremarkable. Bowel gas pattern is normal. The visualized bowel loops are in the normal size range. No evidence of pneumoperitoneum. Cholecystectomy clips in the right upper quadrant. A few metallic tacks from prior mesh placement project over the lower abdominal wall. Multilevel osteophyte formation of the thoracolumbar spine. Prominent enthesophytes are seen in multiple locations, including lateral iliac crests, anteroinferior iliac spines and femoral trochanters. XR/XR KUB IMPRESSION: No acute radiographic abnormalities in the abdomen. No evidence of bowel obstruction.
== END 2022-10-15 13:36 | disposition home or self-care (01) ==
LOC: HO.XRAY 13:35
PROVIDERS: Visit Provider Internal Medicine Gastroenterology
DX: R10.13 Epigastric pain (principal); K59.00 Constipation, unspecified
CPT/HCPCS: 74018

== ENCOUNTER 2022-10-18 09:18 | Outpatient (AMB) | payer BC, SELFPAY ==
--- NOTE | 2022-10-18 09:18 | MHC.OFFVIS ---
Intake Intake Visit Reasons: pt stated was directed to make appt per Paulette Intake Note: Lashon presents as a telehealth today for a follow up. CC: She states that she is having concerns - she went to EGD and had an experience and there was new diagnosis. She was told that she is not going to see call center assistant because Dr. Butcher would have sent her. Business Center Attendant Required: No Allergies atorvastatin [From LIPITOR] Allergy (Severe, Verified 10/18/22 09:19) Difficulty Breathing azithromycin [AZITHROMYCIN] Allergy (Severe, Verified 10/18/22 09:19) Difficulty Breathing mite-Dermatophagoides farinae, vicente [dust mite - [place]] Allergy (Severe, Verified 10/18/22 09:19) Difficulty Breathing sumatriptan [From IMITREX] Allergy (Severe, Verified 10/18/22 09:19) Difficulty Breathing acetaminophen [From TYLENOL] Allergy (Unknown, Verified 10/18/22 09:19) Itching adhesive tape [ADHESIVE TAPE] Allergy (Unknown, Verified 10/18/22 09:19) Rash gentamicin [GENTAMICIN] Allergy (Unknown, Verified 10/18/22 09:19) Rash adalimumab [From Humira] Allergy (Verified 10/18/22 09:19) Rash haloperidol [From HALDOL] Adverse Reaction (Unknown, Verified 10/18/22 09:19) GI Issues ketorolac [From TORADOL] Adverse Reaction (Unknown, Verified 10/18/22 09:19) Muscle cramps prasterone (DHEA) [From DHEA] Adverse Reaction (Unknown, Verified 10/18/22 09:19) Cardiac issues varenicline [From CHANTIX] Adverse Reaction (Unknown, Verified 10/18/22 09:19) Seizure HPI pt stated was directed to make appt per Paulette HPI Details 62 yr old f with? history of Sjogren's syndrome, smoking, SECONDARY erythrocytosis (DAVID neg), DM, TENISHA, fibromyalgia,? and rheumatoid arthritis being seen for follow up RECAP: She had lost a lot of weight 346#--194# for 18 months she was c/o epigastric pain when she eats she sticks to apples and pasta which is ok beef is the worst ok with sea food she denied nausea and vomiting appetite is poor she had early satiety, feeling full all the time on PPI--not helping above sx she has had diarrhea for life, on chronic imodium and levsin colonoscopy 01/2020 with [facility] and had polpy removed --hyperplastic per path CT chest at [facility]-- no report, personally reviewed, pancreas looks ok, stomach contracted, some cntrast like material in stomach gliadin AB was positive DEXA: pos for osteopenia EGD/[place]: 12/07 Endoscopy Findings: inlet patch 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 Duodenum, biopsy:? Chronic inactive duodenitis with Calderon gland hyperplasia. B.? Stomach, biopsy:? Antral-type and oxyntic mucosa with mild chronic inactive inflammation; no Helicobacter organisms seen. C.? GE junction, biopsy: - Cardiofundic-type mucosa with mild chronic, focally active, inflammation; no intestinal metaplasia seen. - Chronic esophagitis. D.? Esophagus, random, biopsy:? Squamous epithelium within normal limits; no inflammation seen. E.? Terminal ileum, biopsy:? Small intestinal mucosa within normal limits. F.? Colon, right, biopsy:? Focally active colitis. G.? Colon, left and transverse, biopsy:? Colonic mucosa within normal limits. H.? Rectum, biopsy:? Rectal mucosa within normal limits. She presented to the office 1 wk ago, 11/26 pressure pain epigastric area, with nausea she has small vol bowel movements--passing gas, no blood appetite is poor taking morphine, 15 MST BID, oxycodone TID prn--not helping her abdo pain coughs a lot in the morning, has fits, sometimes with blood--going on for long time KUB: constipation UA: pos for E coli CXR: no acute findings LABS: polycythemia, CRP 3 she was given movantik INTERIM: she is feeling better than last week, but still has pain in the epigastrium EGD was cancelled due to anesthesia concerns about lung function but patient is upset as she had extensive wrok up in the past and was told it was due to sjogrens weight is stable no fevers no chest pain, no SOB, has chronic cough as before, no sputum, denies urine don or dysuria and is taking cipro, not finished course yet will increase pantoprazole to BID in the interim A/P 1/ Epigastric pain,ddx; muscular, PUD, partial obstrcution, constipation, narcotic bowel syndrome, gastroparesis from narc use 2/ cough, chronic maybe causing upper abdominal muscle pain, PLAN: 1/ Upper Gi series 2/ repeat UA in 1 week 3/ cont with movantik and BID PPI PFSH Medical History Asthma Boils Bursitis Chronic pain syndrome Chronic, continuous use of opioids COPD (chronic obstructive pulmonary disease) Diabetes Disc degeneration Eczema Fibromyalgia GERD (gastroesophageal reflux disease) Hx of difficult intubation 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) use of opiate analgesic Osteoarthritis Osteoporosis Polycythemia Rheumatoid arthritis Sjogrens syndrome Sleep apnea Smoker Surgical History History of bladder suspension procedure History of colonoscopy History of esophagogastroduodenoscopy (EGD) History of removal of cyst History of surgical removal of pilonidal cyst Hx of appendectomy Hx of cholecystectomy Hx of hysterectomy Hx of plastic surgery Hx of tonsillectomy Family History Mother Polycythemia Father Heart attack Other No family history of cancer Social History Household Members: Spouse and Children Housing: House Are you a primary field care coordinator to a significant other at home: No Do you presently have visiting nurse or other home services: No Alcohol intake: never Patient Tobacco Use Status: Current everyday Tobacco user Tobacco use type: Cigarette Cigarette Packs Per Day: 1 Cigarettes Per Day: 20.0 Years Smoked: 46 Second Hand Smoke Exposure: Yes Advance Directives Date on File: 12/24/19 service: No Current occupational status: retired 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 Assessment & Plan Assessment & Plan (1) Epigastric abdominal pain: Code(s): R10.13 - Epigastric pain Orders: Orders [place] upper GI series 10/18/22 R10.13 - Epigastric pain Medications: Refilled pantoprazole 40 mg PO Q12H 60 ea 3RF Telehealth Telehealth Location of provider rendering services: practice address Location of patient: address on file Patient Identification confirmed using: Name, : Yes Telehealth method: voice only Patient verbally consented to treatment: Yes Patient verbally consented to billing insurance company: Yes Patient informed of any privacy concerns related to visit: Yes Minutes spent on Phone/Video with Pt.: 15 Coding Level of Care Code Tele Est Pt Level 3 (66278) Diagnoses Epigastric abdominal pain R10.13
== END 2022-10-18 14:31 | disposition home or self-care (01) ==
LOC: HO.HGI 09:18
PROVIDERS: PCP Internal Medicine; Visit Provider Internal Medicine Gastroenterology
DX: R10.13 Epigastric pain (principal)
CPT/HCPCS: 99442

== ENCOUNTER → 2022-10-18 09:18 | Outpatient (BNVA) | payer BC, SELFPAY | PROVIDERS: PCP Internal Medicine; Visit Provider Internal Medicine Gastroenterology ==

== ENCOUNTER 2022-12-27 17:40 | Outpatient (REF) | payer BC, SELFPAY ==
[2022-12-27 17:50] LABS: Appearance Urine Clear; Color Urine Yellow; Glucose Urine UA 100 mg/dL (Negative); Leukocyte Esterase Urine Negative (Negative); Nitrite Urine Negative (Negative); PH 5.5 (5.0-9.0); Specific Gravity - Urine 1.015 (1.005-1.025); Urine Blood Negative (Negative); Urine Ketones Negative (Negative); Urine Protein Negative (Neg-Trace)
== END 2022-12-27 17:41 | disposition home or self-care (01) ==
LOC: HO.LNP 17:40
PROVIDERS: Visit Provider Internal Medicine Gastroenterology
DX: R30.0 Dysuria (principal); R10.13 Epigastric pain; K59.00 Constipation, unspecified; R05.9 Cough, unspecified
CPT/HCPCS: 81003

== ENCOUNTER 2023-01-01 14:01 | Outpatient (REF) | payer BC, SELFPAY | END 2023-01-01 14:02 | disposition home or self-care (01) | LOC: HO.BBR 14:01 | PROVIDERS: PCP Internal Medicine; Visit Provider Internal Medicine Medical Oncology | DX: D75.1 Secondary polycythemia (principal) | CPT/HCPCS: 85014; 85018; 99195 ==

== ENCOUNTER 2023-01-20 00:14 | Emergency (ER) | payer BC, SELFPAY ==
--- NOTE | ~2023-01-20 | XR_ITS ---
EXAMINATION: XR CHEST CLINICAL INFORMATION: Shortness of breath COMPARISON: 10/11/2022 TECHNIQUE: 2 views of the chest were obtained. FINDINGS: Lung volumes are symmetric. There is suspected biapical scarring. No focal consolidation is seen bilaterally. No evidence of pneumothorax, pleural effusion, or pulmonary edema. The cardiomediastinal contour is unremarkable. Right shoulder arthroplasty hardware is partially visualized. XR/XR chest 2V IMPRESSION: No acute cardiopulmonary findings.
[2023-01-20 00:40] VITALS: BP 140/72; PULSE 76; RESP 16; TEMP 36.8; O2SAT 92; BMI 34.3
[2023-01-20 02:39] VITALS: BP 138/65; PULSE 79; RESP 13; TEMP 36.8; O2SAT 92
[2023-01-20 02:52] LABS: Basophils Absolute Auto 0.1 X10*3/uL (0.0-0.2); Basophils Percent Auto 0.9 % (0-2); Eosinophils Absolute Auto 0.6 X10*3/uL (0.0-0.4); Eosinophils Percent Auto 4.3 % (0-4); Hematocrit 48.7 % (37.0-47.0); Hemoglobin 16.1 g/dl (12.0-16.0); Imm Gran Abs Auto 0.12 X10*3/uL (0.00-0.03); Imm Gran Pct Auto 0.9 % (0.0-0.4); Lymphocytes Absolute Auto 2.4 X10*3/uL (1.2-4.9); Lymphocytes Percent Auto 17.8 % (20-40); MANUAL DIFF FLAG NO; Mean Corpuscular HGB Conc 33.1 g/dl (31.0-35.0); Mean Corpuscular Hemoglobin 29.1 pg (27.0-33.0); Mean Corpuscular Volume 88.1 fL (80.0-98.0); Mean Platelet Volume 9.4 fL (9.4-12.3); Monocytes Absolute Auto 0.7 X10*3/uL (0.1-1.2); Monocytes Percent Auto 5.4 % (2-11); Neutrophils Absolute Auto 9.4 x10*3/uL (2.0-8.3); Neutrophils Percent Auto 70.7 % (45-73); Platelet Count 265 X10*3/uL (160-400); Red Blood Count 5.53 X10*6/uL (4.20-5.50); White Blood Count 13.3 X10*3/uL (4.8-10.8)
[2023-01-20 03:10] LABS: Alanine Aminotransferase 17 U/L (0-31); Albumin Level 3.9 g/dL (3.5-5.0); Alkaline Phosphatase 81 U/L (39-117); Anion Gap 17 (12-20); Aspartate Amino Transferase 23 U/L (5-31); Bilirubin Total 0.3 mg/dL (0.0-1.0); Blood Urea Nitrogen 14 mg/dL (9-16); Calcium 9.4 mg/dL (8.4-10.2); Carbon Dioxide 23 mmol/L (22-29); Chloride 98 mmol/L (96-108); Creatinine Clr Calc Pharmacy 75.8; Estimated Glomerular Filt Rate > 60; Glucose Random 374 mg/dL (60-115); Sodium 133 mmol/L (135-145); Total Protein 7.8 g/dL (6.5-8.0)
--- NOTE | 2023-01-20 03:26 | PC.NURSE ---
critical lab, glucose 374. aware
[2023-01-20 04:01] LABS: Influenza A PCR NEGATIVE (Negative); Influenza B PCR NEGATIVE (Negative); Resp Syncy Virus RNA Qual PCR NEGATIVE (Negative); SARS COV2 PCR INHOUSE NEGATIVE (Negative)
--- NOTE | 2023-01-20 04:12 | ED.GENADULT ---
HPI - General Adult General Chief complaint: General Medical Stated complaint: possible pneumonia Time Seen by Provider: 01/20/23 04:12 History of Present Illness HPI narrative: The patient is a 62-year-old female with a long history of smoking. She has been smoking a pack a day since the age of 13. She also has sleep apnea and has a sleep apnea machine. The patient says that for the last 3 days she has been coughing a lot. Her symptoms are worse at night. When she sleeps she wakes up with fits of coughing. She feels like she has pneumonia although she has not had a fever. She says she had not gotten any sleep for the last 3 days and she feels exhausted. Patient has chronically asymmetric legs. Her right leg, especially her calf is thin and this has been attributed to nerve damage she says. Related Data Home Medications Medication Instructions Recorded Confirmed albuterol sulfate 90 mcg/actuation 2 puff PO Q6H 09/27/20 09/02/22 aerosol inhaler ammonium lactate 12 % topical cream 1 appl topical DAILY 09/27/20 09/02/22 aspirin 325 mg tablet 325 mg PO 1230 09/27/20 09/02/22 cyclobenzaprine 5 mg tablet 5 mg PO BID PRN Pain 09/27/20 09/02/22 diclofenac sodium 75 mg 75 mg PO DAILY PRN Pain 09/27/20 09/02/22 tablet,delayed release hydroxychloroquine 200 mg tablet 200 mg PO DAILY 09/27/20 09/02/22 hyoscyamine sulfate 0.125 mg tablet 0.125 mg PO DAILY PRN Muscle Pain 09/27/20 09/02/22 insulin lispro 100 unit/mL 20 unit subcut QIDWMHS 09/27/20 09/02/22 subcutaneous pen (Humalog KwikPen (U-100) Insulin) loratadine 10 mg tablet 10 mg PO 0030 09/27/20 09/02/22 montelukast 10 mg tablet 10 mg PO 0030 09/27/20 09/02/22 mupirocin calcium 2 % topical cream 1 appl topical DAILY PRN Skin 09/27/20 09/02/22 Irritation diazepam 2 mg tablet 2 mg PO BEDTIME PRN Anxiety 11/21/20 09/02/22 magnesium oxide 400 mg (241.3 mg 400 mg PO BID 07/09/21 09/02/22 magnesium) tablet pramipexole 0.25 mg tablet 0.25 mg PO BEDTIME 07/09/21 09/02/22 baclofen 10 mg tablet 1 tab PO TID 07/27/21 09/02/22 gabapentin 300 mg capsule 600 mg PO BEDTIME 12/24/21 09/02/22 pramipexole 1 mg tablet 0.25 mg PO DAILY 12/24/21 09/02/22 metformin 1,000 mg tablet 1,000 mg PO BID 02/25/22 09/02/22 pjfsseu-jrcojrvwkr-ECA-caffeine 30 1 cap PO Q4H PRN headache 04/22/22 09/02/22 mg-50 mg-325 mg-40 mg capsule morphine 15 mg tablet,extended 1 tab PO Q12H 04/22/22 09/02/22 release multivitamin 1 tab PO DAILY 04/22/22 09/02/22 insulin glargine-yfgn 100 unit/mL 40 unit subcut BEDTIME 10/15/22 10/15/22 subcutaneous solution (Semglee (insulin glargine-yfgn)) oxycodone 5 mg tablet 15 mg PO BID 10/15/22 Previous Rx's Medication Instructions Recorded capsaicin 0.1 % topical cream 1 appl topical BID #60 grams 07/09/21 naloxone 4 mg/actuation nasal spray 4 mg intranasal Q2M PRN opioid 08/27/21 overdose #2 ea sodium,potassium,mag sulfates 17.5 See Rx Instructions PO .COMPLEX 05/20/22 gram-3.13 gram-1.6 gram oral soln #354 mL (Suprep Bowel Prep Kit) bisacodyl 5 mg tablet,delayed 10 mg (2 x 5 mg) PO DAILY 7 days 10/12/22 release (Dulcolax (bisacodyl)) #14 tabs ciprofloxacin HCl 500 mg tablet 500 mg PO BID #14 tabs 10/12/22 peg-electrolyte solution 420 gram 240 ml PO Q10M #4,000 mL 10/12/22 oral solution pantoprazole 40 mg tablet,delayed 40 mg PO BID #60 tabs 11/28/22 release doxycycline monohydrate 100 mg 100 mg PO BID #20 caps 01/20/23 capsule prednisone 5 mg tablet 5 mg PO DIRECTED #78 tabs 01/20/23 Allergies Allergy/AdvReac Type Severity Reaction Status Date / Time atorvastatin [From LIPITOR] Allergy Severe Difficulty Verified 10/18/22 09:19 Breathing azithromycin [AZITHROMYCIN] Allergy Severe Difficulty Verified 10/18/22 09:19 Breathing mite-Dermatophagoides Allergy Severe Difficulty Verified 10/18/22 09:19 farinae, vicente Breathing [dust mite - [place]] sumatriptan [From IMITREX] Allergy Severe Difficulty Verified 10/18/22 09:19 Breathing acetaminophen [From TYLENOL] Allergy Unknown Itching Verified 10/18/22 09:19 adhesive tape [ADHESIVE TAPE] Allergy Unknown Rash Verified 10/18/22 09:19 gentamicin [GENTAMICIN] Allergy Unknown Rash Verified 10/18/22 09:19 adalimumab [From Humira] Allergy Rash Verified 10/18/22 09:19 haloperidol [From HALDOL] AdvReac Unknown GI Issues Verified 10/18/22 09:19 ketorolac [From TORADOL] AdvReac Unknown Muscle Verified 10/18/22 09:19 cramps prasterone (DHEA) [From DHEA] AdvReac Unknown Cardiac Verified 10/18/22 09:19 issues varenicline [From CHANTIX] AdvReac Unknown Seizure Verified 10/18/22 09:19 Review of Systems Review of Systems: Yes all other systems are reviewed and are negative PMFSH Past Medical History Medical History Asthma Boils Bursitis Chronic pain syndrome Chronic, continuous use of opioids COPD (chronic obstructive pulmonary disease) Diabetes Disc degeneration Eczema Fibromyalgia GERD (gastroesophageal reflux disease) Hx of 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 Osteoarthritis Osteoporosis Polycythemia Rheumatoid arthritis Sjogrens syndrome Sleep apnea Smoker Surgical History History of bladder suspension procedure History of colonoscopy History of esophagogastroduodenoscopy (EGD) History of removal of cyst History of surgical removal of pilonidal cyst Hx of appendectomy Hx of cholecystectomy Hx of hysterectomy Hx of plastic surgery Hx of tonsillectomy Family History Family History Mother Polycythemia Father Heart attack Other No family history of cancer Social History Social History Household Members: Spouse and Children Housing: House Are you a primary caregivers homecare to a significant other at home: No Do you presently have visiting nurse or other home services: No Alcohol intake: never Patient Tobacco Use Status: Current everyday Tobacco user Tobacco use type: Cigarette Cigarette Packs Per Day: 1 Cigarettes Per Day: 20.0 Years Smoked: 46 Smoked in Last 30 Days: Yes Second Hand Smoke Exposure: Yes Use of substances other than those prescribed or required for medical reasons: No Advance Directives: Yes Advance Directives on File: Yes Advance Directives Date on File: 12/24/19 Patient : No service: No Current occupational status: retired 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 Physical Exam ED Vital Signs: Vital Signs - 24 hr 01/20/23 00:40 01/20/23 02:39 01/20/23 04:42 Temperature 98.2 F 98.3 F Pulse Rate 76 79 79 Respiratory Rate 16 13 16 Blood Pressure 140/72 H 138/65 Pulse Oximetry 92 92 Oxygen Delivery Method Room Air Room Air 01/20/23 05:07 Temperature 97.9 F Pulse Rate 81 Respiratory Rate 20 Blood Pressure 149/73 H Pulse Oximetry 89 L Oxygen Delivery Method Room Air BMI result Body Mass Index 34.3 Const Other: The patient is a chronically ill-appearing 62-year-old. She was asleep when I walked in the room. She seems exhausted. She does not seem in respiratory distress. HENMT Other: Face is symmetrical. Mucous membranes moist. Eyes Other: Pupils are round equal, conjunctivae are clear, extraocular movements intact Neck Other: No JVD Resp Other: Patient initially seemed to have markedly diminished breath sounds. There is no increased work of breathing. Later she seemed to have more wheezes after bronchodilator treatment. Cardio Other: The patient has regular rate and rhythm with no murmur. GI Other: The abdomen is soft and nontender Skin Other: Skin is pale and dry. Neuro Other: Patient was sleepy but arousable to a normal level of consciousness. She is coherent and appropriate. Cranial nerves are intact. She moves all 4 extremities symmetrically it seems grossly neurologically intact. Extrem Other: The patient has a right calf seems somewhat atrophy compared to the left. The patient says this is chronic. Medications Administered Discontinued Medications Generic Name Dose Route Start Last Admin Trade Name Freq PRN Reason Stop Dose Admin Albuterol Sulfate 5 mg 01/20/23 04:23 12/04/23 04:36 Albuterol Sulfate (0.083%) 2.5 Mg/3 Ml Vial.Neb INHALE 01/20/23 04:24 5 mg ONCE ONE Administration Albuterol Sulfate 2.5 mg/ 5 mg 01/20/23 05:02 01/20/23 05:14 Albuterol Sulfate 2.5 mg INHALE 01/20/23 05:03 5 mg ONCE ONE Administration Albuterol Sulfate 5 mg/ 7.5 mg 01/20/23 05:58 01/20/23 06:16 Albuterol Sulfate 2.5 mg INHALE 01/20/23 05:59 7.5 mg ONCE ONE Administration Doxycycline Monohydrate 100 mg 01/20/23 05:27 01/20/23 05:31 Doxycycline Monohydrate 100 Mg Capsule PO 01/20/23 05:28 100 mg ONCE ONE Administration Prednisone 60 mg 01/20/23 05:02 01/20/23 05:31 Prednisone 20 Mg Tablet PO 01/20/23 05:03 60 mg ONCE ONE Administration Medical Decision Making Medical Decision Making MDM Narrative: The patient is a 62-year-old female with history of COPD who was a long-term smoker who still smokes. She has had 3 days of symptoms that make her think she has pneumonia. He has been coughing a great deal in bringing up a lot of whitish sputum. She says that when she tries to lie down her cough and sneezing is worse when she has therefore been unable to sleep for the last 3 nights. She feels exhausted. She has not had a fever. Chest x-ray is negative. Labs are unremarkable. She was treated with bronchodilators with improvement in her breath sounds. She had increased air movement and increased wheezing with treatment. She felt somewhat better. She kept falling asleep so I did a venous blood gas. She is not retaining CO2 to any significant degree. The I think a trial of treatment at home with prednisone and doxycycline in addition to her albuterol nebulizer treatments at home would be reasonable. She seems comfortable with this plan. Lab Data 01/20/23 02:47 01/20/23 02:47 Labs: Lab Results 01/20/23 01/20/23 01/20/23 Range/Units 02:47 03:18 04:37 WBC 13.3 H (4.8-10.8) X10*3/uL RBC 5.53 H (4.20-5.50) X10*6/uL Hgb 16.1 H (12.0-16.0) g/dl Hct 48.7 H (37.0-47.0) % MCV 88.1 (80.0-98.0) fL MCH 29.1 (27.0-33.0) pg MCHC 33.1 (31.0-35.0) g/dl RDW 14.0 (11.0-16.0) % Plt Count 265 (160-400) X10*3/uL MPV 9.4 (9.4-12.3) fL Immature Gran % (Auto) 0.9 H (0.0-0.4) % Neut % (Auto) 70.7 (45-73) % Lymph % (Auto) 17.8 L (20-40) % [place] % (Auto) 5.4 (2-11) % Eos % (Auto) 4.3 H (0-4) % Baso % (Auto) 0.9 (0-2) % Lymph # (Auto) 2.4 (1.2-4.9) X10*3/uL [place] # (Auto) 0.7 (0.1-1.2) X10*3/uL Eos # (Auto) 0.6 H (0.0-0.4) X10*3/uL Baso # (Auto) 0.1 (0.0-0.2) X10*3/uL Abs Immat Gran (auto) 0.12 H (0.00-0.03) X10*3/uL Absolute Neuts (auto) 9.4 H (2.0-8.3) x10*3/uL Absolute Nucleated RBC 0.000 (0.0-0.012) X10*3/uL Nucleated RBC % (auto) 0.0 (0.0-0.2) /100WBC VBG pH (7.32-7.43) VBG pCO2 mmHg VBG pO2 mmHg VBG HCO3 (22-26) mmol/L VBG O2 Saturation % VBG Base Excess mmol/L Sodium 133 L (135-145) mmol/L Potassium 5.0 (3.3-5.1) mmol/L Chloride 98 (96-108) mmol/L Carbon Dioxide 23 (22-29) mmol/L Anion Gap 17 (12-20) BUN 14 (9-16) mg/dL Creatinine 0.85 (0.5-1.4) mg/dL Estim Creat Clear Calc 75.8 Estimated GFR > 60 Random Glucose 374 H* (60-115) mg/dL Calcium 9.4 (8.4-10.2) mg/dL Total Bilirubin 0.3 (0.0-1.0) mg/dL AST 23 (5-31) U/L ALT 17 (0-31) U/L Alkaline Phosphatase 81 (39-117) U/L Troponin I High Sens 2.9 (<3.5-17.0) ng/L C-Reactive Protein 1.47 H (< or = 0.50) mg/dL B-Natriuretic Peptide < 10 (<100) pg/mL Total Protein 7.8 (6.5-8.0) g/dL Albumin 3.9 (3.5-5.0) g/dL Urine Color Yellow Urine Appearance Clear Urine pH 6.0 (5.0-9.0) Ur Specific [place] <= 1.005 (1.005-1.025) Urine Protein Negative (Neg-Trace) mg/dL Urine Glucose (UA) >=1000 H (Negative) mg/dL Urine Ketones Negative (Negative) mg/dL Urine Blood Negative (Negative) Urine Nitrite Positive H (Negative) Ur Leukocyte Esterase Negative (Negative) Urine RBC 3-5 H (0-2) /HPF Urine WBC 0-5 (0-5) /HPF Ur Squamous Epith Cells 0-2 (0-2) /HPF Urine Bacteria 4+ (None Seen) Hyaline Casts 0-2 (0-2) /LPF Influenza Type A (PCR) NEGATIVE (Negative) Influenza Type B (PCR) NEGATIVE (Negative) RSV RNA Qual (PCR) NEGATIVE (Negative) SARS-CoV-2 RNA (RT-PCR) NEGATIVE (Negative) 01/20/23 Range/Units 06:24 WBC (4.8-10.8) X10*3/uL RBC (4.20-5.50) X10*6/uL Hgb (12.0-16.0) g/dl Hct (37.0-47.0) % MCV (80.0-98.0) fL MCH (27.0-33.0) pg MCHC (31.0-35.0) g/dl RDW (11.0-16.0) % Plt Count (160-400) X10*3/uL MPV (9.4-12.3) fL Immature Gran % (Auto) (0.0-0.4) % Neut % (Auto) (45-73) % Lymph % (Auto) (20-40) % [place] % (Auto) (2-11) % Eos % (Auto) (0-4) % Baso % (Auto) (0-2) % Lymph # (Auto) (1.2-4.9) X10*3/uL [place] # (Auto) (0.1-1.2) X10*3/uL Eos # (Auto) (0.0-0.4) X10*3/uL Baso # (Auto) (0.0-0.2) X10*3/uL Abs Immat Gran (auto) (0.00-0.03) X10*3/uL Absolute Neuts (auto) (2.0-8.3) x10*3/uL Absolute Nucleated RBC (0.0-0.012) X10*3/uL Nucleated RBC % (auto) (0.0-0.2) /100WBC VBG pH 7.38 (7.32-7.43) VBG pCO2 48 mmHg VBG pO2 103 mmHg VBG HCO3 29 H (22-26) mmol/L VBG O2 Saturation 98.0 % VBG Base Excess 3.1 mmol/L Sodium (135-145) mmol/L Potassium (3.3-5.1) mmol/L Chloride (96-108) mmol/L Carbon Dioxide (22-29) mmol/L Anion Gap (12-20) BUN (9-16) mg/dL Creatinine (0.5-1.4) mg/dL Estim Creat Clear Calc Estimated GFR Random Glucose (60-115) mg/dL Calcium (8.4-10.2) mg/dL Total Bilirubin (0.0-1.0) mg/dL AST (5-31) U/L ALT (0-31) U/L Alkaline Phosphatase (39-117) U/L Troponin I High Sens (<3.5-17.0) ng/L C-Reactive Protein (< or = 0.50) mg/dL B-Natriuretic Peptide (<100) pg/mL Total Protein (6.5-8.0) g/dL Albumin (3.5-5.0) g/dL Urine Color Urine Appearance Urine pH (5.0-9.0) Ur Specific [place] (1.005-1.025) Urine Protein (Neg-Trace) mg/dL Urine Glucose (UA) (Negative) mg/dL Urine Ketones (Negative) mg/dL Urine Blood (Negative) Urine Nitrite (Negative) Ur Leukocyte Esterase (Negative) Urine RBC (0-2) /HPF Urine WBC (0-5) /HPF Ur Squamous Epith Cells (0-2) /HPF Urine Bacteria (None Seen) Hyaline Casts (0-2) /LPF Influenza Type A (PCR) (Negative) Influenza Type B (PCR) (Negative) RSV RNA Qual (PCR) (Negative) SARS-CoV-2 RNA (RT-PCR) (Negative) Independent Interpretation I performed an independent interpretation of an: EKG Interpretation: EKG at 04:34 shows normal sinus rhythm at 80 beats per minute. It is an unremarkable EKG. No obvious ischemic changes. Discharge Plan Discharge Clinical Impression: Acute bronchitis, Acute exacerbation of chronic obstructive pulmonary disease Patient Disposition: Home, Self-Care Instructions: COPD (Chronic Obstructive Pulmonary Disease) (ED) Additional Instructions: Your testing in the emergency room today does not show signs of a pneumonia. Your heart tests were also good. I think you likely have a bad case of bronchitis. You have been started on a course of prednisone. Please taper the prednisone as prescribed. You have also been started on a course of doxycycline as an antibiotic. Use your albuterol nebulizer machine every 4 hours. Drink a lot of fluids. Please follow-up soon with your regular doctor. Return to the emergency room if worse. Prescriptions: New doxycycline monohydrate 100 mg capsule 100 mg PO BID Qty: 20 0RF prednisone 5 mg tablet 5 mg PO DIRECTED Qty: 78 0RF Rx Instructions: Take 12 tabs on 1st day, then 11 tabs on 2nd day, then 10 tabs on 3rd day, continue 1 less tablet per day until done No Action upqgqjq-rbpmjqjnhw-HXV-caff 21-15-671-40 mg capsule 1 cap PO Q4H PRN (Reason: headache) morphine 15 mg tablet extended release 1 tab PO Q12H multivitamin Tablet 1 tab PO DAILY Suprep Bowel Prep Kit 17.5-3.13-1.6 gram recon soln See Rx Instructions PO .COMPLEX Qty: 354 0RF Rx Instructions: DILUTE; drink full amount early evening ciprofloxacin HCl 500 mg tablet 500 mg PO BID Qty: 14 0RF peg-electrolyte soln 420 gram recon soln 240 ml PO Q10M Qty: 4000 0RF Rx Instructions: until fecal effluent is clear; do not exceed a total volume of 2,000 mL bisacodyl [Dulcolax (bisacodyl)] 5 mg tablet,delayed release (DR/EC) 10 mg PO DAILY 7 Days Qty: 14 0RF pantoprazole 40 mg tablet,delayed release (DR/EC) 40 mg PO BID Qty: 60 3RF baclofen 10 mg tablet 1 tab PO TID aspirin 325 mg Tablet 325 mg PO 1230 hyoscyamine sulfate 0.125 mg Tablet 0.125 mg PO DAILY PRN (Reason: Muscle Pain) mupirocin calcium [Bactroban] 2 % Cream 1 appl TOPICAL DAILY PRN (Reason: Skin Irritation) diclofenac sodium [Voltaren] 75 mg Tablet,Delayed Release (Dr/Ec) 75 mg PO DAILY PRN (Reason: Pain) montelukast 10 mg Tablet 10 mg PO 0030 ammonium lactate 12 % Cream 1 appl TOPICAL DAILY hydroxychloroquine 200 mg Tablet 200 mg PO DAILY albuterol sulfate 90 mcg/actuation HFA aerosol inhaler 2 puff PO Q6H loratadine 10 mg Tablet 10 mg PO 0030 insulin lispro [Humalog KwikPen Insulin] 100 unit/mL Insulin Pen 20 unit SUBCUT QIDWMHS cyclobenzaprine [Flexeril] 5 mg Tablet 5 mg PO BID PRN (Reason: Pain) metformin 1,000 mg tablet 1,000 mg PO BID oxycodone 5 mg tablet 15 mg PO BID Rx Instructions: Partial Fill upon patient request. insulin glargine-yfgn [Semglee(insulin glargine-yfgn)] 100 unit/mL solution 40 unit subcut BEDTIME diazepam 2 mg tablet 2 mg PO BEDTIME PRN (Reason: Anxiety) pramipexole 0.25 mg tablet 0.25 mg PO BEDTIME magnesium oxide 400 mg (241.3 mg magnesium) tablet 400 mg PO BID capsaicin 0.1 % cream 1 appl topical BID Qty: 60 0RF Rx Instructions: do not wash area for at least 30 min after application gabapentin 300 mg capsule 600 mg PO BEDTIME pramipexole 1 mg tablet 0.25 mg PO DAILY naloxone 4 mg/actuation spray,non-aerosol 4 mg intranasal Q2M PRN (Reason: opioid overdose) Qty: 2 0RF Rx Instructions: spray 1 dose into ONE nostril; alternate nostrils w each dose until help arrives Referrals: Dottie Douglass MD [Physician] -
--- NOTE | 2023-01-20 04:22 | ECG_ITS ---
Test Reason : CHEST PAIN Blood Pressure : / mmHG Vent. Rate : 080 BPM Atrial Rate : 080 BPM P-R Int : 152 ms QRS Dur : 096 ms QT Int : 374 ms P-R-T Axes : 061 075 071 degrees QTc Int : 431 ms Normal sinus rhythm Normal ECG When compared with ECG of 10-JUN-2018 19:15, Borderline criteria for Inferior infarct are no longer Present Referred By: Casey Dudley Electronically Signed By:CHULA DANIELLE
[2023-01-20] MEDS: Albuterol Sulfate (0.083%) 2.5 MG/3 ML VIAL.NEB 5 MG INHALE (04:36)
[2023-01-20 04:42] VITALS: PULSE 79; RESP 16; O2SAT 93
[2023-01-20 04:45] LABS: C Reactive Protein 1.47 mg/dL (< or = 0.50)
[2023-01-20 04:46] LABS: Appearance Urine Clear; Color Urine Yellow; Glucose Urine UA >=1000 mg/dL (Negative); Leukocyte Esterase Urine Negative (Negative); Nitrite Urine Positive (Negative); Specific Gravity - Urine <= 1.005 (1.005-1.025); UMIC TRIGGER UACC YES; Urine Blood Negative (Negative); Urine Ketones Negative (Negative); Urine Protein Negative (Neg-Trace)
--- NOTE | 2023-01-20 04:47 | PC.NURSE ---
respiratory at bedside
[2023-01-20 04:48] LABS: Troponin-I High Sensitivity 2.9 ng/L (<3.5-17.0)
[2023-01-20 04:49] LABS: B Type Natriuretic Peptide < 10 pg/mL (<100)
[2023-01-20 04:55] LABS: Bacteria Urine 4+ (None Seen); Hyaline Casts Urine 0-2 /LPF (0-2); Squamous Epithelial Cell Urine 0-2 /HPF (0-2); UACC Culture Trigger YES; WBC Urine 0-5 /HPF (0-5)
[2023-01-20 05:07] VITALS: BP 149/73; PULSE 81; RESP 20; TEMP 36.6; O2SAT 89
[2023-01-20] MEDS: Albuterol Sulfate 2.5 MG, Albuterol Sulfate (0.083%) 2.5 MG 5 MG INHALE (05:14)
[2023-01-20] MEDS: predniSONE 20 MG TABLET 60 MG PO (05:31)
[2023-01-20] MEDS: Doxycycline Monohydrate 100 MG CAPSULE PO (05:31)
[2023-01-20] MEDS: Albuterol Sulfate 5 MG, Albuterol Sulfate (0.083%) 2.5 MG 7.5 MG INHALE (06:16)
[2023-01-20 06:26] LABS: Venous Blood Gas Refer to POC result
[2023-01-20 06:31] LABS: VBG Base Excess 3.1 mmol/L; VBG HCO3 29 mmol/L (22-26); VBG pCO2 48 mmHg; VBG pH 7.38 (7.32-7.43); VBG pO2 103 mmHg
--- NOTE | 2023-01-20 07:10 | PC.NURSE ---
patient sleeping in room, o2 dropped to low 70's. at bedside states patient usually wears cpap to sleep, placed on 2L nasal cannula now at 91%. awaiting dispo, call lira within reach
== END 2023-01-20 07:47 | disposition home or self-care (01) ==
PROVIDERS: Emergency Provider Emergency Medicine
DX: J44.0 Chronic obstructive pulmonary disease with (acute) lower respiratory infection (principal); G47.30 Sleep apnea, unspecified; R05.9 Cough, unspecified; R07.89 Other chest pain; F17.210 Nicotine dependence, cigarettes, uncomplicated; Z20.822 Contact with and (suspected) exposure to COVID-19; Z20.828 Contact with and (suspected) exposure to other viral communicable diseases; Z79.899 Other long term (current) drug therapy; Z71.6 Tobacco abuse counseling
CPT/HCPCS: 0241U; 36415; 71046; 80053; 81001; 82803; 83880; 84484; 85025; 86140; 87086; 87088; 87186; 93005; 94640; 99285

== ENCOUNTER → 2023-01-20 04:22 | Outpatient (BNV) | payer BC, SELFPAY | PROVIDERS: Emergency Provider Emergency Medicine; Visit Provider Internal Medicine | DX: R07.9 Chest pain, unspecified (principal) | CPT/HCPCS: 93010 ==

== ENCOUNTER 2023-01-27 13:54 | Outpatient (REF) | payer BC, SELFPAY | END 2023-01-27 13:55 | disposition home or self-care (01) | LOC: HO.BBR 13:54 | PROVIDERS: PCP Internal Medicine; Visit Provider Internal Medicine Medical Oncology | DX: D75.1 Secondary polycythemia (principal) | CPT/HCPCS: 85014; 85018; 99195 ==

== ENCOUNTER 2023-03-06 17:29 | Emergency (ER) | payer OTHER, SELFPAY ==
--- NOTE | ~2023-03-06 | CT_ITS ---
CT/CT angio chest PE protocol IMPRESSION: 1. No evidence of pulmonary emboli. 2. No significant change in the mediastinal and right hilar lymphadenopathy. VTE: negative. EXAMINATION: CT ANGIOGRAM OF THE CHEST WITH AND WITHOUT CONTRAST (CT PULMONARY ANGIOGRAM FOR PE) CLINICAL INFORMATION: Reason for Exam Short of breath? PE COMPARISON: CT PE study 06/11/2018, chest radiograph 01/20/2023 TECHNIQUE: Prior to contrast administration, noncontrast localization images were obtained. Subsequently, multidetector volumetric imaging was performed from the thoracic inlet to below the diaphragms following the administration of 65 mL Omnipaque 350 intravenous contrast. No contrast reaction reported Sagittal, coronal, and MIP oblique sagittal reformatted images were obtained on the CT workstation, uploaded to PACS, and reviewed. This CT examination was performed using dose optimization techniques as appropriate, variously including the following: *Automated exposure control *Adjustment of mA and/or kV according to patient size (this includes techniques or standardized protocols for targeted exams where dose is matched to indication/reason for exam; i.e. extremities or head) *Use of iterative reconstruction technique Total exam dose-length product 599 mGy-cm FINDINGS: QUALITY OF STUDY/CONTRAST BOLUS: Satisfactory. PULMONARY ARTERIES: No pulmonary emboli. THORACIC AORTA: No aneurysm. LUNG: No focal consolidation, nodules or masses. The time of the prior study, bibasilar atelectasis/consolidation was present along with a right middle lobe infiltrate which has resolved in the interim. PLEURA: No pleural effusion or pneumothorax. MEDIASTINUM: Normal heart size. No pericardial effusion. Pretracheal, precarinal and AP window lymph nodes are unchanged. The largest node is precarinal measuring 1.3 cm unchanged from prior. Again seen is an enlarged right hilar lymph node measuring 1.6 cm, unchanged from prior. There is an infrahilar right sided lymph node present which has increased in size from 1.2 to 1.4 cm in short axis dimension (7:273 compare prior 7:360). No evidence of septal bowing or right heart strain. CORONARY ARTERY CALCIFICATION: None visualized on this study. CHEST WALL/AXILLA: No axillary or internal mammary lymphadenopathy. OSSEOUS STRUCTURES: No acute or suspicious osseous abnormality. UPPER ABDOMEN: Status post cholecystectomy. There is either a tiny hyperenhancing region in the left lobe of the liver or alternatively an area of calcification. In either event, this is unchanged and not a worrisome finding. No reflux of contrast into the hepatic veins to suggest elevated right heart pressures.
--- NOTE | ~2023-03-06 | US_ITS ---
EXAMINATION: US VENOUS ULTRASOUND WITH DOPPLER LOWER EXTREMITY, LEFT CLINICAL INFORMATION: Swelling, question DVT COMPARISON: None available. TECHNIQUE: Ultrasound of the deep veins is performed from the hip to the calf with compression sonography and color and pulse Doppler assessment. Spectral analysis with color-flow imaging is performed. FINDINGS: There is normal venous compression and respiratory variation and augmented flow. The visualized common femoral vein, superficial femoral vein, profunda femoral vein, popliteal vein, and the trifurcation region shows no evidence of deep venous thrombosis. There is no significant popliteal fossa cyst. If the patient's symptoms persist, followup ultrasound in 5 days 7 days might be of value to exclude proximal propagation from a non-visualized calf vein. US/US venous duplex LE IMPRESSION: No DVT demonstrated in the left lower extremity.
[2023-03-06 17:33] VITALS: BP 189/84; PULSE 89; O2SAT 96
--- NOTE | 2023-03-06 17:53 | MHC.EDTECH ---
Patient was biba from home ,vitals taken ,pt was change into hospital attire ,and was hooked up to vehicle monitor technician ,DEXTER Wayne in Room triaging Patient .
[2023-03-06 17:59] VITALS: BP 146/73; PULSE 89; RESP 14; TEMP 37.1; O2SAT 94; BMI 38.9
--- NOTE | 2023-03-06 18:18 | ED_ITS ---
HPI - SOB/Dyspnea General Chief Complaint: Dyspnea Stated Complaint: SOB, FEELING CAGE AROUND CHEST Time Seen by Provider: 03/06/23 18:18 Source: patient Mode of arrival: ambulatory Limitations: no limitations History of Present Illness HPI Narrative: Patient history of Sjogren's syndrome with occasionally gets bronchitis last episode was in 01/19 treated with steroids and antibiotic doxycycline for 2 weeks felt better started complaining of shortness of and feeling tight in the chest weeks also noticed swelling of the left leg symptoms got worse in last few days whenever she ambulates she feels short of breath no history of PE no fever no chills no chest pain or palpitation been coughing frequently with mucoid phlegm patient does have history of sleep apnea uses CPAP at home at nighttime Related Data Home Medications Medication Instructions Recorded Confirmed albuterol sulfate 90 mcg/actuation 2 puff PO Q6H 09/27/20 09/02/22 aerosol inhaler ammonium lactate 12 % topical cream 1 appl topical DAILY 09/27/20 09/02/22 aspirin 325 mg tablet 325 mg PO 1230 09/27/20 09/02/22 cyclobenzaprine 5 mg tablet 5 mg PO BID PRN Pain 09/27/20 09/02/22 diclofenac sodium 75 mg 75 mg PO DAILY PRN Pain 09/27/20 09/02/22 tablet,delayed release hydroxychloroquine 200 mg tablet 200 mg PO DAILY 09/27/20 09/02/22 hyoscyamine sulfate 0.125 mg tablet 0.125 mg PO DAILY PRN Muscle Pain 09/27/20 09/02/22 insulin lispro 100 unit/mL 20 unit subcut QIDWMHS 09/27/20 09/02/22 subcutaneous pen (Humalog KwikPen (U-100) Insulin) loratadine 10 mg tablet 10 mg PO 0030 09/27/20 09/02/22 montelukast 10 mg tablet 10 mg PO 0030 09/27/20 09/02/22 mupirocin calcium 2 % topical cream 1 appl topical DAILY PRN Skin 09/27/20 09/02/22 Irritation diazepam 2 mg tablet 2 mg PO BEDTIME PRN Anxiety 11/21/20 09/02/22 magnesium oxide 400 mg (241.3 mg 400 mg PO BID 07/09/21 09/02/22 magnesium) tablet pramipexole 0.25 mg tablet 0.25 mg PO BEDTIME 07/09/21 09/02/22 baclofen 10 mg tablet 1 tab PO TID 07/27/21 09/02/22 gabapentin 300 mg capsule 600 mg PO BEDTIME 12/24/21 09/02/22 pramipexole 1 mg tablet 0.25 mg PO DAILY 12/24/21 09/02/22 metformin 1,000 mg tablet 1,000 mg PO BID 02/25/22 09/02/22 sjdvnon-uojcsuidkz-ZDH-caffeine 30 1 cap PO Q4H PRN headache 04/22/22 09/02/22 mg-50 mg-325 mg-40 mg capsule morphine 15 mg tablet,extended 1 tab PO Q12H 04/22/22 09/02/22 release multivitamin 1 tab PO DAILY 04/22/22 09/02/22 insulin glargine-yfgn 100 unit/mL 40 unit subcut BEDTIME 10/15/22 10/15/22 subcutaneous solution (Semglee (insulin glargine-yfgn)) oxycodone 5 mg tablet 15 mg PO BID 10/15/22 Previous Rx's Medication Instructions Recorded capsaicin 0.1 % topical cream 1 appl topical BID #60 grams 07/09/21 naloxone 4 mg/actuation nasal spray 4 mg intranasal Q2M PRN opioid 08/27/21 overdose #2 ea sodium,potassium,mag sulfates 17.5 See Rx Instructions PO .COMPLEX 05/20/22 gram-3.13 gram-1.6 gram oral soln #354 mL (Suprep Bowel Prep Kit) bisacodyl 5 mg tablet,delayed 10 mg (2 x 5 mg) PO DAILY 7 days 10/12/22 release (Dulcolax (bisacodyl)) #14 tabs ciprofloxacin HCl 500 mg tablet 500 mg PO BID #14 tabs 10/12/22 peg-electrolyte solution 420 gram 240 ml PO Q10M #4,000 mL 10/12/22 oral solution pantoprazole 40 mg tablet,delayed 40 mg PO BID #60 tabs 11/28/22 release doxycycline monohydrate 100 mg 100 mg PO BID #20 caps 01/20/23 capsule prednisone 5 mg tablet 5 mg PO DIRECTED #78 tabs 01/20/23 benzonatate 200 mg capsule 200 mg PO TID PRN cough #30 caps 03/06/23 Allergies Allergy/AdvReac Type Severity Reaction Status Date / Time atorvastatin [From LIPITOR] Allergy Severe Difficulty Verified 10/18/22 09:19 Breathing azithromycin [AZITHROMYCIN] Allergy Severe Difficulty Verified 10/18/22 09:19 Breathing mite-Dermatophagoides Allergy Severe Difficulty Verified 10/18/22 09:19 farinae, vicente Breathing [dust mite - [place]] sumatriptan [From IMITREX] Allergy Severe Difficulty Verified 10/18/22 09:19 Breathing acetaminophen [From TYLENOL] Allergy Unknown Itching Verified 10/18/22 09:19 adhesive tape [ADHESIVE TAPE] Allergy Unknown Rash Verified 10/18/22 09:19 gentamicin [GENTAMICIN] Allergy Unknown Rash Verified 10/18/22 09:19 adalimumab [From Humira] Allergy Rash Verified 10/18/22 09:19 haloperidol [From HALDOL] AdvReac Unknown GI Issues Verified 10/18/22 09:19 ketorolac [From TORADOL] AdvReac Unknown Muscle Verified 10/18/22 09:19 cramps prasterone (DHEA) [From DHEA] AdvReac Unknown Cardiac Verified 10/18/22 09:19 issues varenicline [From CHANTIX] AdvReac Unknown Seizure Verified 10/18/22 09:19 Review of Systems 2 Review of Systems: Yes all other systems are reviewed and are negative PMFSH Past Medical History Onset Date is defined in the Problem List Problems that require an onset date and time if occurred within 24 hrs of arrival to the ED Aortic Dissection and Rupture; Neurologic impairment; Cardiopulmonary Arrest; Endotracheal Intubation; Insertion or Replacement of Mechanical Circulatory Assist Device 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 Osteoarthritis Osteoporosis Polycythemia Rheumatoid arthritis Sjogrens syndrome Sleep apnea Smoker Surgical History History of bladder suspension procedure History of colonoscopy History of esophagogastroduodenoscopy (EGD) History of removal of cyst History of surgical removal of pilonidal cyst Hx of appendectomy Hx of cholecystectomy Hx of hysterectomy Hx of plastic surgery Hx of tonsillectomy Family History Family History Mother Polycythemia Father Heart attack Other No family history of cancer Social History Social History Household Members: Spouse and Children Housing: House Are you a primary wound care center consultant to a significant other at home: No Do you presently have visiting nurse or other home services: No Alcohol intake: never Patient Tobacco Use Status: Current everyday Tobacco user Tobacco use type: Cigarette Cigarette Packs Per Day: 1 Cigarettes Per Day: 20.0 Years Smoked: 46 Second Hand Smoke Exposure: Yes Use of substances other than those prescribed or required for medical reasons: No Advance Directives: Yes Advance Directives on File: Yes Advance Directives Date on File: 12/24/19 service: No Current occupational status: retired 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 Physical Exam 2 Vital Signs: Vital Signs: Last Vital Signs Temp 98.4 F 03/06/23 21:39 Pulse 83 03/06/23 21:39 Resp 16 03/06/23 21:39 BP 129/61 03/06/23 21:39 Pulse Ox 96 03/06/23 21:39 O2 Del Method Room Air 03/06/23 21:39 O2 Flow Rate 2 03/06/23 21:39 BMI result Body Mass Index 38.9 Appearance: Alert. Oriented X3. No acute distress. Eyes: PERRLA, No Nystagmus ENT: Pharynx normal. Oral Mucosa moist Neck: Normal inspection. Neck supple. CVS: Normal heart rate and rhythm. Pulses normal. Respiratory: No respiratory distress. Equal air entry bilateral, no wheezing/rales/rhonchi Abdomen: Soft and nontender. Bowel sounds are present, no mass palpable, no CVA tenderness Skin: Skin warm and dry. Normal skin color. Normal skin turgor. Extremities: Left lower extremity edema. Left calf tenderness ++ Neuro: Oriented X 3. No motor deficit. Medications Administered Discontinued Medications Generic Name Dose Route Start Last Admin Trade Name Freq PRN Reason Stop Dose Admin Iohexol 65 ml 03/06/23 19:44 03/06/23 19:44 Iohexol 350 Mg/Ml 100 Ml Infus..Btl IV 03/06/23 19:45 65 ml ONCE ONE Administration Medical Decision Making Medical Decision Making MDM Narrative: Patient with chest tightness and left leg pain workup negative for DVT or PE discharge patient home advised to keep left leg elevated likely dependent edema Differential Diagnosis Differential Diagnoses: The differential diagnosis associated with the presentation includes DVT left leg/PE/dependent edema Admission/Observation Consideration of admission/observation: Escalation of care including admission/observation considered Lab Data MDM Lab Attestation statement: I reviewed the patient's lab results. 03/06/23 18:52 03/06/23 18:51 Labs: Lab Results 03/06/23 03/06/23 03/06/23 Range/Units 18:43 18:51 18:52 WBC 14.3 H (4.8-10.8) X10*3/uL RBC 5.24 (4.20-5.50) X10*6/uL Hgb 15.5 (12.0-16.0) g/dl Hct 47.6 H (37.0-47.0) % MCV 90.8 (80.0-98.0) fL MCH 29.6 (27.0-33.0) pg MCHC 32.6 (31.0-35.0) g/dl RDW 13.4 (11.0-16.0) % Plt Count 235 (160-400) X10*3/uL MPV 9.7 (9.4-12.3) fL Immature Gran % (Auto) 0.6 H (0.0-0.4) % Neut % (Auto) 72.9 (45-73) % Lymph % (Auto) 17.1 L (20-40) % [place] % (Auto) 5.3 (2-11) % Eos % (Auto) 3.3 (0-4) % Baso % (Auto) 0.8 (0-2) % Lymph # (Auto) 2.4 (1.2-4.9) X10*3/uL [place] # (Auto) 0.8 (0.1-1.2) X10*3/uL Eos # (Auto) 0.5 H (0.0-0.4) X10*3/uL Baso # (Auto) 0.1 (0.0-0.2) X10*3/uL Abs Immat Gran (auto) 0.09 H (0.00-0.03) X10*3/uL Absolute Neuts (auto) 10.4 H (2.0-8.3) x10*3/uL Absolute Nucleated RBC 0.000 (0.0-0.012) X10*3/uL Nucleated RBC % (auto) 0.0 (0.0-0.2) /100WBC PT 12.2 (11.1-13.3) SEC INR 1.0 (0.9-1.1) APTT 30.0 (26.0-36.4) SEC VBG pH (7.32-7.43) VBG pCO2 mmHg VBG pO2 mmHg VBG HCO3 (22-26) mmol/L VBG O2 Saturation % VBG Base Excess mmol/L Sodium 137 (135-145) mmol/L Potassium 4.6 (3.3-5.1) mmol/L Chloride 98 (96-108) mmol/L Carbon Dioxide 29 (22-29) mmol/L Anion Gap 15 (12-20) BUN 14 (9-16) mg/dL Creatinine 0.79 (0.5-1.4) mg/dL Estim Creat Clear Calc 93.5 Estimated GFR > 60 Random Glucose 264 H (60-115) mg/dL Calcium 9.5 (8.4-10.2) mg/dL Total Bilirubin 0.2 (0.0-1.0) mg/dL AST 18 (5-31) U/L ALT 16 (0-31) U/L Alkaline Phosphatase 84 (39-117) U/L Troponin I High Sens 4.8 D (<3.5-17.0) ng/L B-Natriuretic Peptide 12 (<100) pg/mL Total Protein 7.2 (6.5-8.0) g/dL Albumin 4.0 (3.5-5.0) g/dL Influenza Type A (PCR) NEGATIVE (Negative) Influenza Type B (PCR) NEGATIVE (Negative) RSV RNA Qual (PCR) NEGATIVE (Negative) SARS-CoV-2 RNA (RT-PCR) NEGATIVE (Negative) 03/06/23 Range/Units 18:54 WBC (4.8-10.8) X10*3/uL RBC (4.20-5.50) X10*6/uL Hgb (12.0-16.0) g/dl Hct (37.0-47.0) % MCV (80.0-98.0) fL MCH (27.0-33.0) pg MCHC (31.0-35.0) g/dl RDW (11.0-16.0) % Plt Count (160-400) X10*3/uL MPV (9.4-12.3) fL Immature Gran % (Auto) (0.0-0.4) % Neut % (Auto) (45-73) % Lymph % (Auto) (20-40) % [place] % (Auto) (2-11) % Eos % (Auto) (0-4) % Baso % (Auto) (0-2) % Lymph # (Auto) (1.2-4.9) X10*3/uL [place] # (Auto) (0.1-1.2) X10*3/uL Eos # (Auto) (0.0-0.4) X10*3/uL Baso # (Auto) (0.0-0.2) X10*3/uL Abs Immat Gran (auto) (0.00-0.03) X10*3/uL Absolute Neuts (auto) (2.0-8.3) x10*3/uL Absolute Nucleated RBC (0.0-0.012) X10*3/uL Nucleated RBC % (auto) (0.0-0.2) /100WBC PT (11.1-13.3) SEC INR (0.9-1.1) APTT (26.0-36.4) SEC VBG pH 7.43 (7.32-7.43) VBG pCO2 46 mmHg VBG pO2 46 mmHg VBG HCO3 31 H (22-26) mmol/L VBG O2 Saturation 84.0 % VBG Base Excess 5.8 mmol/L Sodium (135-145) mmol/L Potassium (3.3-5.1) mmol/L Chloride (96-108) mmol/L Carbon Dioxide (22-29) mmol/L Anion Gap (12-20) BUN (9-16) mg/dL Creatinine (0.5-1.4) mg/dL Estim Creat Clear Calc Estimated GFR Random Glucose (60-115) mg/dL Calcium (8.4-10.2) mg/dL Total Bilirubin (0.0-1.0) mg/dL AST (5-31) U/L ALT (0-31) U/L Alkaline Phosphatase (39-117) U/L Troponin I High Sens (<3.5-17.0) ng/L B-Natriuretic Peptide (<100) pg/mL Total Protein (6.5-8.0) g/dL Albumin (3.5-5.0) g/dL Influenza Type A (PCR) (Negative) Influenza Type B (PCR) (Negative) RSV RNA Qual (PCR) (Negative) SARS-CoV-2 RNA (RT-PCR) (Negative) Independent Interpretation I performed an independent interpretation of an: EKG, Ultrasound and CT Scan Interpretation: Negative for PE or DVT Normal sinus rhythm heart rate 83 beats per minute PACs poor progression of R- wave no acute STT wave change Radiology Impression Discussion of test interpretation with radiology: I have reviewed the radiologist's reading. Discharge Plan Discharge Clinical Impression: Chronic bronchitis Patient Disposition: Home, Self-Care Instructions: Chronic Bronchitis (ED) Additional Instructions: Continue medications as prescribed Cough drops as prescribed Follow-up with your lung specialist No blood clot in the lungs or leg was seen Prescriptions: New benzonatate 200 mg capsule 200 mg PO TID PRN (Reason: cough) Qty: 30 0RF No Action dwilulw-enfcyxyqtf-SAG-caff [id number] mg capsule 1 cap PO Q4H PRN (Reason: headache) morphine 15 mg tablet extended release 1 tab PO Q12H multivitamin Tablet 1 tab PO DAILY Suprep Bowel Prep Kit 17.5-3.13-1.6 gram recon soln See Rx Instructions PO .COMPLEX Qty: 354 0RF Rx Instructions: DILUTE; drink full amount early evening ciprofloxacin HCl 500 mg tablet 500 mg PO BID Qty: 14 0RF peg-electrolyte soln 420 gram recon soln 240 ml PO Q10M Qty: 4000 0RF Rx Instructions: until fecal effluent is clear; do not exceed a total volume of 2,000 mL bisacodyl [Dulcolax (bisacodyl)] 5 mg tablet,delayed release (DR/EC) 10 mg PO DAILY 7 Days Qty: 14 0RF pantoprazole 40 mg tablet,delayed release (DR/EC) 40 mg PO BID Qty: 60 3RF baclofen 10 mg tablet 1 tab PO TID aspirin 325 mg Tablet 325 mg PO 1230 hyoscyamine sulfate 0.125 mg Tablet 0.125 mg PO DAILY PRN (Reason: Muscle Pain) mupirocin calcium [Bactroban] 2 % Cream 1 appl TOPICAL DAILY PRN (Reason: Skin Irritation) diclofenac sodium [Voltaren] 75 mg Tablet,Delayed Release (Dr/Ec) 75 mg PO DAILY PRN (Reason: Pain) montelukast 10 mg Tablet 10 mg PO 0030 ammonium lactate 12 % Cream 1 appl TOPICAL DAILY hydroxychloroquine 200 mg Tablet 200 mg PO DAILY albuterol sulfate 90 mcg/actuation HFA aerosol inhaler 2 puff PO Q6H loratadine 10 mg Tablet 10 mg PO 0030 insulin lispro [Humalog KwikPen Insulin] 100 unit/mL Insulin Pen 20 unit SUBCUT QIDWMHS cyclobenzaprine [Flexeril] 5 mg Tablet 5 mg PO BID PRN (Reason: Pain) metformin 1,000 mg tablet 1,000 mg PO BID oxycodone 5 mg tablet 15 mg PO BID Rx Instructions: Partial Fill upon patient request. insulin glargine-yfgn [Semglee(insulin glargine-yfgn)] 100 unit/mL solution 40 unit subcut BEDTIME doxycycline monohydrate 100 mg capsule 100 mg PO BID Qty: 20 0RF prednisone 5 mg tablet 5 mg PO DIRECTED Qty: 78 0RF Rx Instructions: Take 12 tabs on 1st day, then 11 tabs on 2nd day, then 10 tabs on 3rd day, continue 1 less tablet per day until done diazepam 2 mg tablet 2 mg PO BEDTIME PRN (Reason: Anxiety) pramipexole 0.25 mg tablet 0.25 mg PO BEDTIME magnesium oxide 400 mg (241.3 mg magnesium) tablet 400 mg PO BID capsaicin 0.1 % cream 1 appl topical BID Qty: 60 0RF Rx Instructions: do not wash area for at least 30 min after application gabapentin 300 mg capsule 600 mg PO BEDTIME pramipexole 1 mg tablet 0.25 mg PO DAILY naloxone 4 mg/actuation spray,non-aerosol 4 mg intranasal Q2M PRN (Reason: opioid overdose) Qty: 2 0RF Rx Instructions: spray 1 dose into ONE nostril; alternate nostrils w each dose until help arrives Interventions: ED Discharge Assessment Last Done: 03/06/23 23:40 Discharge Date/Time: 03/06/23 23:41
--- NOTE | 2023-03-06 18:27 | ECG_ITS ---
Test Reason : DYSNIA Blood Pressure : / mmHG Vent. Rate : 083 BPM Atrial Rate : 083 BPM P-R Int : 140 ms QRS Dur : 078 ms QT Int : 350 ms P-R-T Axes : 047 091 063 degrees QTc Int : 411 ms Normal sinus rhythm with sinus arrhythmia Rightward axis Anterior infarct , age undetermined Abnormal ECG When compared with ECG of 20-JAN-2023 04:34, No significant change was found Referred By: Valente Leung Electronically Signed By:CHULA DANIELLE
[2023-03-06 18:40] VITALS: BP 143/75; PULSE 81; RESP 17; TEMP 36.9; O2SAT 92
--- NOTE | 2023-03-06 18:52 | PC.NURSE ---
resting comfortably in room, IV established, labs drawn and sent. patient remains 92-95% on room air. bedside commode in room.
[2023-03-06 18:55] LABS: MANUAL DIFF FLAG NO
[2023-03-06 18:58] LABS: Basophils Absolute Auto 0.1 X10*3/uL (0.0-0.2); Basophils Percent Auto 0.8 % (0-2); Eosinophils Absolute Auto 0.5 X10*3/uL (0.0-0.4); Eosinophils Percent Auto 3.3 % (0-4); Hematocrit 47.6 % (37.0-47.0); Hemoglobin 15.5 g/dl (12.0-16.0); Imm Gran Abs Auto 0.09 X10*3/uL (0.00-0.03); Imm Gran Pct Auto 0.6 % (0.0-0.4); Lymphocytes Absolute Auto 2.4 X10*3/uL (1.2-4.9); Lymphocytes Percent Auto 17.1 % (20-40); Mean Corpuscular HGB Conc 32.6 g/dl (31.0-35.0); Mean Corpuscular Hemoglobin 29.6 pg (27.0-33.0); Mean Corpuscular Volume 90.8 fL (80.0-98.0); Mean Platelet Volume 9.7 fL (9.4-12.3); Monocytes Absolute Auto 0.8 X10*3/uL (0.1-1.2); Monocytes Percent Auto 5.3 % (2-11); Neutrophils Absolute Auto 10.4 x10*3/uL (2.0-8.3); Neutrophils Percent Auto 72.9 % (45-73); Platelet Count 235 X10*3/uL (160-400); Red Blood Count 5.24 X10*6/uL (4.20-5.50); Red Cell Distribution Width 13.4 % (11.0-16.0); White Blood Count 14.3 X10*3/uL (4.8-10.8)
--- NOTE | 2023-03-06 18:58 | MHC.EDTECH ---
PATIENT EKG TAKEN AND WAS READ BY PROVIDER ,VITALS TAKEN ,BLOOD DRAWN AND SENT TO LAB ,PT AT BEDSIDE ,PT PLAYING GAMES ON HER PHONE .
[2023-03-06 18:59] LABS: Venous Blood Gas Refer to POC result
[2023-03-06 19:03] LABS: Prothrombin Time 12.2 SEC (11.1-13.3)
[2023-03-06 19:03] LABS: VBG Base Excess 5.8 mmol/L; VBG HCO3 31 mmol/L (22-26); VBG pCO2 46 mmHg; VBG pH 7.43 (7.32-7.43); VBG pO2 46 mmHg
[2023-03-06 19:15] LABS: Alanine Aminotransferase 16 U/L (0-31); Alkaline Phosphatase 84 U/L (39-117); Anion Gap 15 (12-20); Aspartate Amino Transferase 18 U/L (5-31); Bilirubin Total 0.2 mg/dL (0.0-1.0); Blood Urea Nitrogen 14 mg/dL (9-16); Calcium 9.5 mg/dL (8.4-10.2); Carbon Dioxide 29 mmol/L (22-29); Chloride 98 mmol/L (96-108); Creatinine Clr Calc Pharmacy 93.5; Estimated Glomerular Filt Rate > 60; Glucose Random 264 mg/dL (60-115); Potassium 4.6 mmol/L (3.3-5.1); Sodium 137 mmol/L (135-145); Total Protein 7.2 g/dL (6.5-8.0)
[2023-03-06 19:19] LABS: B Type Natriuretic Peptide 12 pg/mL (<100)
[2023-03-06 19:24] LABS: Troponin-I High Sensitivity 4.8 ng/L (<3.5-17.0)
[2023-03-06 19:25] LABS: Influenza A PCR NEGATIVE (Negative); Influenza B PCR NEGATIVE (Negative); Resp Syncy Virus RNA Qual PCR NEGATIVE (Negative); SARS COV2 PCR INHOUSE NEGATIVE (Negative)
[2023-03-06] MEDS: iohexoL 350 MG/ML 100 ML INFUS..BTL 65 ML IV (19:44)
[2023-03-06 20:18] VITALS: BP 139/67; PULSE 81; RESP 16; TEMP 36.7; O2SAT 89
--- NOTE | 2023-03-06 20:23 | MHC.EDTECH ---
WHILE TAKING PATIENT VITALS ,THIS PCT NOTICE PT 02 SAT DROP TO 89 % PROVIDER SUSIE AND DEXTER OLMSTEAD WAS MADE AWARE ,PROVIDER SUSIE SAID TO PUT PATIENT ON 2 L O2 .
[2023-03-06 20:26] VITALS: O2SAT 94
[2023-03-06 21:39] VITALS: BP 129/61; PULSE 83; RESP 16; TEMP 36.9; O2SAT 96
== END 2023-03-06 23:41 | disposition home or self-care (01) ==
PROVIDERS: Emergency Provider Internal Medicine
DX: J42 Unspecified chronic bronchitis (principal); R06.02 Shortness of breath; R60.0 Localized edema; R07.89 Other chest pain; F17.210 Nicotine dependence, cigarettes, uncomplicated; Z20.822 Contact with and (suspected) exposure to COVID-19; Z20.828 Contact with and (suspected) exposure to other viral communicable diseases; Z71.6 Tobacco abuse counseling; Z79.899 Other long term (current) drug therapy
CPT/HCPCS: 0241U; 36415; 71275; 80053; 82803; 83880; 84484; 85025; 85610; 85730; 93005; 93971; 99284; 99285; Q9967

== ENCOUNTER → 2023-03-06 18:27 | Outpatient (BNV) | payer OTHER, SELFPAY | PROVIDERS: Emergency Provider Internal Medicine; Visit Provider Internal Medicine | DX: R06.00 Dyspnea, unspecified (principal) | CPT/HCPCS: 93010 ==

== ENCOUNTER 2023-03-24 15:36 | Outpatient (REF) | payer OTHER, SELFPAY ==
--- NOTE | ~2023-03-24 | XR_ITS ---
EXAMINATION: XR CHEST 2 VIEWS CLINICAL INFORMATION: Follow-up bronchitis. COMPARISON: CTA chest dated 03/06/2023; chest radiographs dated 01/20/2023. TECHNIQUE: Frontal and lateral views of the chest were obtained. FINDINGS: The heart, great vessels, pulmonary vasculature and mediastinum are normal. The lungs show no focal infiltrate, effusion or pneumothorax. Again, there are biapical paraseptal emphysematous changes. There is no acute osseous abnormality. There are degenerative changes of the left shoulder. A right shoulder arthroplasty is noted. XR/XR chest 2V IMPRESSION: 1. No focal infiltrate or congestive heart failure is seen. 2. There are biapical paraseptal emphysematous changes, correlating with recent CT findings.
== END 2023-03-24 15:37 | disposition home or self-care (01) ==
LOC: HO.XRAY 15:36
PROVIDERS: Visit Provider Internal Medicine Medical Oncology
DX: R05.9 Cough, unspecified (principal)
CPT/HCPCS: 71046

== ENCOUNTER 2023-04-08 14:58 | Outpatient (REF) | payer OTHER, SELFPAY | END 2023-04-08 14:59 | disposition home or self-care (01) | LOC: HO.BBR 14:58 | PROVIDERS: Absent Provider Internal Medicine; Visit Provider Internal Medicine Medical Oncology | DX: D75.1 Secondary polycythemia (principal) | CPT/HCPCS: 85018; 99195 ==

== ENCOUNTER 2023-04-08 15:14 | Outpatient (REF) | payer OTHER, SELFPAY ==
[2023-04-08 15:59] LABS: MANUAL DIFF FLAG NO
[2023-04-08 16:22] LABS: Basophils Absolute Auto 0.1 X10*3/uL (0.0-0.2); Basophils Percent Auto 0.7 % (0-2); Eosinophils Absolute Auto 0.4 X10*3/uL (0.0-0.4); Eosinophils Percent Auto 3.4 % (0-4); Hematocrit 51.1 % (37.0-47.0); Hemoglobin 16.3 g/dl (12.0-16.0); Imm Gran Abs Auto 0.11 X10*3/uL (0.00-0.03); Lymphocytes Absolute Auto 2.5 X10*3/uL (1.2-4.9); Lymphocytes Percent Auto 22.3 % (20-40); Mean Corpuscular HGB Conc 31.9 g/dl (31.0-35.0); Mean Corpuscular Hemoglobin 28.7 pg (27.0-33.0); Mean Platelet Volume 10.3 fL (9.4-12.3); Monocytes Absolute Auto 0.6 X10*3/uL (0.1-1.2); Monocytes Percent Auto 5.1 % (2-11); Neutrophils Absolute Auto 7.6 x10*3/uL (2.0-8.3); Neutrophils Percent Auto 67.5 % (45-73); Platelet Count 241 X10*3/uL (160-400); Red Blood Count 5.68 X10*6/uL (4.20-5.50); Red Cell Distribution Width 13.8 % (11.0-16.0); White Blood Count 11.3 X10*3/uL (4.8-10.8)
[2023-04-08 16:31] LABS: Estimated Average Glucose 223 mg/dL; Hemoglobin A1c % 9.4 % (<6.0)
[2023-04-08 16:54] LABS: Alanine Aminotransferase 20 U/L (0-31); Albumin Level 3.9 g/dL (3.5-5.0); Alkaline Phosphatase 78 U/L (39-117); Anion Gap 17 (12-20); Aspartate Amino Transferase 17 U/L (5-31); Bilirubin Total 0.2 mg/dL (0.0-1.0); Blood Urea Nitrogen 12 mg/dL (9-16); Calcium 9.6 mg/dL (8.4-10.2); Carbon Dioxide 30 mmol/L (22-29); Chloride 98 mmol/L (96-108); Estimated Glomerular Filt Rate > 60; Glucose Random 327 mg/dL (60-115); Potassium 4.5 mmol/L (3.3-5.1); Sodium 140 mmol/L (135-145); Total Protein 7.3 g/dL (6.5-8.0)
[2023-04-08 17:07] LABS: Vitamin B12 559 pg/mL (200-900)
[2023-04-08 17:09] LABS: TSH reflex Free T4 1.29 uIU/mL (0.32-4.0)
[2023-04-08 17:48] LABS: Appearance Urine Clear; Color Urine Yellow; Glucose Urine UA >=1000 mg/dL (Negative); Leukocyte Esterase Urine Negative (Negative); Nitrite Urine Positive (Negative); UMIC TRIGGER UACC YES; Urine Blood Negative (Negative); Urine Ketones Negative (Negative); Urine Protein Negative (Neg-Trace)
[2023-04-08 17:53] LABS: Bacteria Urine 4+ (None Seen); Hyaline Casts Urine 0-2 /LPF (0-2); RBC Urine 0-2 /HPF (0-2); UACC Culture Trigger YES; WBC Urine 0-5 /HPF (0-5)
== END 2023-04-08 15:15 | disposition home or self-care (01) ==
LOC: HO.LNP 15:14
PROVIDERS: Visit Provider Internal Medicine
DX: E11.65 Type 2 diabetes mellitus with hyperglycemia (principal); D47.9 Neoplasm of uncertain behavior of lymphoid, hematopoietic and related tissue, unspecified; R53.83 Other fatigue; R30.9 Painful micturition, unspecified
CPT/HCPCS: 80053; 81001; 82607; 83036; 84443; 85025; 87086; 87088; 87186

== ENCOUNTER 2023-04-09 13:48 | Outpatient (AMB) | payer OTHER, SELFPAY ==
[2023-04-09 13:57] VITALS: BP 138/76; PULSE 95; O2SAT 86; BMI 39.4
--- NOTE | 2023-04-09 13:57 | A.OFFVIS_ITS ---
Intake Vital Signs 04/09/23 13:57 Height 5 ft 4 in Weight 229 lb 4.492 oz BMI 39.4 BP 138/76 Blood Pressure Location Lt brachial Position Sitting Pulse 95 Pulse Source Doppler Pulse Oximetry (%) 86 L Oxygen Delivery Method Room Air Intake Visit Reasons: Emphysema Allergies atorvastatin [From LIPITOR] Allergy (Severe, Verified 04/09/23 14:03) Difficulty Breathing azithromycin [AZITHROMYCIN] Allergy (Severe, Verified 04/09/23 14:03) Difficulty Breathing mite-Dermatophagoides farinae, vicente [dust mite - [place]] Allergy (Severe, Verified 04/09/23 14:03) Difficulty Breathing sumatriptan [From IMITREX] Allergy (Severe, Verified 04/09/23 14:03) Difficulty Breathing acetaminophen [From TYLENOL] Allergy (Unknown, Verified 04/09/23 14:03) Itching adhesive tape [ADHESIVE TAPE] Allergy (Unknown, Verified 04/09/23 14:03) Rash gentamicin [GENTAMICIN] Allergy (Unknown, Verified 04/09/23 14:03) Rash adalimumab [From Humira] Allergy (Verified 04/09/23 14:03) Rash haloperidol [From HALDOL] Adverse Reaction (Unknown, Verified 04/09/23 14:03) GI Issues ketorolac [From TORADOL] Adverse Reaction (Unknown, Verified 04/09/23 14:03) Muscle cramps prasterone (DHEA) [From DHEA] Adverse Reaction (Unknown, Verified 04/09/23 14:03) Cardiac issues varenicline [From CHANTIX] Adverse Reaction (Unknown, Verified 04/09/23 14:03) Seizure HPI Emphysema HPI Details 62-year-old lady, active approximately 4 0 pack-year smoker, with underlying Sjogren, rheumatoid arthritis, erythrocytosis referred for pulmonary evaluation and perioperative risk assessment for endoscopy. Patient states that she has been having chronic bronchitis symptomatic with cough productive of clear sputum. She has been using albuterol MDI with reasonable control her symptoms. She does have underlying TENISHA and her CPAP is unfortunately very old and does not function well. Patient also complain of lower extremity edema. She has enlarged mediastinal/hilar lymph nodes, but under 2 cm. PFSH Medical History Asthma Boils Bursitis Chronic pain syndrome Chronic, continuous use of opioids COPD (chronic obstructive pulmonary disease) Diabetes Disc degeneration Eczema Fibromyalgia GERD (gastroesophageal reflux disease) Hx of difficult intubation [facility] (current) use of opiate analgesic Osteoarthritis Osteoporosis Polycythemia Rheumatoid arthritis Sjogrens syndrome Sleep apnea Smoker Surgical History History of bladder suspension procedure History of colonoscopy History of esophagogastroduodenoscopy (EGD) History of removal of cyst History of surgical removal of pilonidal cyst Hx of appendectomy Hx of cholecystectomy Hx of hysterectomy Hx of plastic surgery Hx of tonsillectomy Family History Mother Polycythemia Father Heart attack Other No family history of cancer Social History Household Members: Spouse and Children Housing: House Are you a primary primary care coordinator to a significant other at home: No Do you presently have visiting nurse or other home services: No Alcohol intake: never Patient Tobacco Use Status: Current everyday Tobacco user Tobacco use type: Cigarette Cigarette Packs Per Day: 1 Cigarettes Per Day: 20.0 Years Smoked: 46 Second Hand Smoke Exposure: Yes Advance Directives Date on File: 12/24/19 service: No Current occupational status: retired 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 Review of Systems Const Denies daytime sleepiness, Denies excessive sweating, Denies fatigue, Denies fever(s), Denies lethargy, Denies malaise, Denies night sweats, Denies snoring and Denies weight loss Eyes Denies blurry vision and Denies itchy eyes ENT Denies nasal congestion, Denies post nasal drip, Denies sinus pain, Denies sinus pressure and Denies other ( Thrush) Card Denies chest pain, Reports pedal edema, Denies dyspnea, Denies orthopnea and Denies paroxysmal nocturnal dyspnea Resp Reports cough, Denies hemoptysis, Reports excessive phlegm production, Denies dyspnea, Denies snoring and Denies wheezing GI Denies abdominal pain and Denies heartburn Musc Denies myalgias, Denies arthralgias and Denies joint swelling Skin/Breast Denies rash Neuro Denies memory loss and Denies seizure-like activity Psych Denies abnormal sleep pattern, Denies anxiety and Denies memory loss Endo Denies excessive sweating, Denies fatigue and Denies heat intolerance Dwain/Lymph Denies easy bruising Aller/Immun Denies itchy eyes, Denies seasonal rhinorrhea and Denies wheezing Physical Exam Vital Signs: Last Vital Signs Pulse 95 04/09/23 13:57 BP 138/76 04/09/23 13:57 Pulse Ox 86 L 04/09/23 13:57 Oxygen Delivery Method Room Air 04/09/23 13:57 BMI result Body Mass Index 39.4 Const General: no acute distress and alert Nutritional Appearance: obese Orientation/consciousness: Other orientation findings ( oriented) HEENT Head: Yes atraumatic Eyes General: appearance normal, both eyes and all related structures Sclerae: sclerae normal EOM: EOMs intact bilaterally Neck Neck: Yes supple Lymphatic: no lymphadenopathy noted Resp Effort & Inspection: normal respiratory effort and no use of accessory muscles Auscultation: clear to auscultation bilaterally Cardio Rate: regular rate Rhythm: regular rhythm Heart sounds: no gallops, no murmurs and no rubs Skin General skin exam: other ( warm) Extrem General: No clubbing, No cyanosis and Yes edema (1+ bilateral) Assessment & Plan Assessment & Plan (1) Emphysema lung: Code(s): J43.9 - Emphysema, unspecified Plan: Will obtain full PFT for further evaluation. Pulmonary clearance after reviewing PFT results. Continue albuterol MDI. (2) TENISHA (obstructive sleep apnea): Code(s): G47.33 - Obstructive sleep apnea (adult) (pediatric) Plan: Unrestful sleep, daytime sleepiness. Will obtain home sleep study for further evaluation. [place] Sleepiness Scale score of 15. (3) Abnormal CT scan, chest: Code(s): R93.89 - Abnormal findings on diagnostic imaging of other specified body structures Plan: Enlarged mediastinal lymph nodes, though not meeting pathologic criteria. Patient does continue follow-up with oncology. Will start lung cancer screening program. (4) Dyspnea on exertion: Code(s): R06.09 - Other forms of dyspnea Plan: Will obtain 2D echo for further evaluation. Orders: Orders PFT pulmonary function test Today J43.9 - Emphysema, unspecified CT lung screening 06/08/23 Z87.891 - Personal history of nicotine dependence RT home sleep study Today G47.33 - Obstructive sleep apnea (adult) (pediatric) [place] echo transthorac w con Today R06.09 - Other forms of dyspnea Coding Level of Care Code New Pt Level 4 (98299) Diagnoses Emphysema lung J43.9 TENISHA (obstructive sleep apnea) G47.[address] scan, chest R93.89 Dyspnea on exertion R06.09
== END 2023-04-09 14:23 | disposition home or self-care (01) ==
PROVIDERS: PCP Internal Medicine; Visit Provider Internal Medicine Pulmonary Disease
DX: J43.9 Emphysema, unspecified (principal); G47.33 Obstructive sleep apnea (adult) (pediatric); R93.89 Abnormal findings on diagnostic imaging of other specified body structures; R06.09 Other forms of dyspnea
CPT/HCPCS: 99204

== ENCOUNTER → 2023-04-09 13:48 | Outpatient (BNVA) | payer OTHER, SELFPAY | PROVIDERS: PCP Internal Medicine; Visit Provider Internal Medicine Pulmonary Disease ==

== ENCOUNTER 2023-05-15 18:48 | Emergency (ER) | payer OTHER, SELFPAY ==
--- NOTE | ~2023-05-15 | XR_ITS ---
EXAMINATION: X-ray thoracic and lumbar spine CLINICAL INFORMATION: Fall. COMPARISON: CTA chest 03/06/2023. CT abdomen/pelvis 01/02/2022. TECHNIQUE: 2 views of the thoracic spine. 3 views of the lumbar spine. FINDINGS: Thoracic spine: No evidence of acute compression deformity or subluxation. Mild multilevel intervertebral disc height loss. Normal appearance of the posterior elements. No significant paraspinal soft tissue abnormality. Partially seen right shoulder arthroplasty. Chronic prominently peripheral and biapical interstitial thickening in keeping with emphysema noted on prior CT chest. Lumbar spine: No evidence of acute compression deformity. Trace retrolisthesis of L5 on S1. Moderate intervertebral disc height loss and facet arthropathy leading to neural foraminal encroachment at L5-S1. No significant paraspinal soft tissue abnormality. Right upper quadrant surgical clips are seen. XR/XR lumbar spine 2-3V IMPRESSION: 1. Trace retrolisthesis of L5 on S1, new compared to 2021. Moderate degenerative disease at L5-S1 leading to neural foraminal encroachment. 2. No evidence of acute compression deformities. 3. Mild thoracic spondylosis.
--- NOTE | ~2023-05-15 | XR_ITS ---
EXAMINATION: X-ray thoracic and lumbar spine CLINICAL INFORMATION: Fall. COMPARISON: CTA chest 03/06/2023. CT abdomen/pelvis 01/02/2022. TECHNIQUE: 2 views of the thoracic spine. 3 views of the lumbar spine. FINDINGS: Thoracic spine: No evidence of acute compression deformity or subluxation. Mild multilevel intervertebral disc height loss. Normal appearance of the posterior elements. No significant paraspinal soft tissue abnormality. Partially seen right shoulder arthroplasty. Chronic prominently peripheral and biapical interstitial thickening in keeping with emphysema noted on prior CT chest. Lumbar spine: No evidence of acute compression deformity. Trace retrolisthesis of L5 on S1. Moderate intervertebral disc height loss and facet arthropathy leading to neural foraminal encroachment at L5-S1. No significant paraspinal soft tissue abnormality. Right upper quadrant surgical clips are seen. XR/XR thoracic spine 2V IMPRESSION: 1. Trace retrolisthesis of L5 on S1, new compared to 2021. Moderate degenerative disease at L5-S1 leading to neural foraminal encroachment. 2. No evidence of acute compression deformities. 3. Mild thoracic spondylosis.
--- NOTE | ~2023-05-15 | XR_ITS ---
EXAMINATION: XR SHOULDER, RIGHT CLINICAL INFORMATION: Fall onto shoulder. Status post repair. COMPARISON: Right shoulder 08/09/2019 TECHNIQUE: AP external rotation, Grashey, scapular Y, and axillary views of the right shoulder. FINDINGS: The exam is suboptimal as a good AP view is not obtained. There is reversed right shoulder prosthesis. The prosthetic components appear to be in satisfactory alignment however not optimally visualized. There is no periprosthetic fracture suspected. There are several osseous fragments posterior to the shoulder joint likely old. There is reduction AC joint. The scapula, clavicle and visualized upper ribs are grossly unremarkable. The soft tissues are normal. XR/XR shoulder RT min 2V IMPRESSION: Suboptimal exam as good AP view is not obtained. There is no dislocation or subluxations suspected. If possible a repeat AP shoulder view is recommended
[2023-05-15 19:06] VITALS: BP 155/62; PULSE 93; RESP 18; TEMP 36.9; O2SAT 93; BMI 34.5
--- NOTE | 2023-05-15 19:10 | ED_ITS ---
HPI - Back Pain/Injury General Chief Complaint: Fall Stated Complaint: fell, back pain, legs wobbly Time Seen by Provider: 05/15/23 20:26 Source: patient, family, RN notes reviewed and old records reviewed Mode of arrival: ambulatory Limitations: no limitations History of Present Illness HPI Narrative: 62-year-old female with past medical history significant for acute on chronic back pain, nicotine dependence, rheumatoid arthritis fibromyalgia, Sjogren's disease, diabetes presents for evaluation after a fall. Patient reports falling at 1:00 a.m. this morning. She states that she was trying to get her puppy when ?but puppy bumped into me and I fell down. ? She reports landing on her right side She is unsure if she hit her head or not but denies loss of consciousness She denies any headache and is not anticoagulated She complains of 10/10 pain across her lower back She reports her pain radiates down her legs bilaterally Patient states that she chronically has ?wobbly legs. She states that since the fall today the symptoms seem to have been worse Patient has an MRI report from last Friday that was done at [facility] She had a few areas of small disc protrusion and lumbar spine but no evidence of central canal stenosis She also complains of right shoulder pain and is status post replacement [address] Fletcher Related Data Home Medications Medication Instructions Recorded Confirmed albuterol sulfate 90 mcg/actuation 2 puff PO Q6H 09/27/20 03/24/23 aerosol inhaler ammonium lactate 12 % topical cream 1 appl topical DAILY 09/27/20 03/24/23 aspirin 325 mg tablet 325 mg PO 1230 09/27/20 03/24/23 cyclobenzaprine 5 mg tablet 5 mg PO BID PRN Pain 09/27/20 03/24/23 diclofenac sodium 75 mg 75 mg PO DAILY PRN Pain 09/27/20 03/24/23 tablet,delayed release hydroxychloroquine 200 mg tablet 200 mg PO DAILY 09/27/20 03/24/23 hyoscyamine sulfate 0.125 mg tablet 0.125 mg PO DAILY PRN Muscle Pain 09/27/20 03/24/23 insulin lispro 100 unit/mL 20 unit subcut QIDWMHS 09/27/20 03/24/23 subcutaneous pen (Humalog KwikPen (U-100) Insulin) loratadine 10 mg tablet 10 mg PO 0030 09/27/20 03/24/23 montelukast 10 mg tablet 10 mg PO 0030 09/27/20 03/24/23 mupirocin calcium 2 % topical cream 1 appl topical DAILY PRN Skin 09/27/20 03/24/23 Irritation diazepam 2 mg tablet 2 mg PO BEDTIME PRN Anxiety 11/21/20 03/24/23 magnesium oxide 400 mg (241.3 mg 400 mg PO BID 07/09/21 03/24/23 magnesium) tablet pramipexole 0.25 mg tablet 0.25 mg PO BEDTIME 07/09/21 03/24/23 baclofen 10 mg tablet 1 tab PO TID 07/27/21 03/24/23 gabapentin 300 mg capsule 600 mg PO BEDTIME 12/24/21 03/24/23 pramipexole 1 mg tablet 0.25 mg PO DAILY 12/24/21 03/24/23 metformin 1,000 mg tablet 1,000 mg PO BID 02/25/22 03/24/23 xwtpihz-mnismpzuqs-VQB-caffeine 30 1 cap PO Q4H PRN headache 04/22/22 03/24/23 mg-50 mg-325 mg-40 mg capsule morphine 15 mg tablet,extended 1 tab PO Q12H 04/22/22 03/24/23 release multivitamin 1 tab PO DAILY 04/22/22 03/24/23 insulin glargine-yfgn 100 unit/mL 40 unit subcut BEDTIME 10/15/22 03/24/23 subcutaneous solution (Semglee (insulin glargine-yfgn)) oxycodone 5 mg tablet 15 mg PO BID 10/15/22 03/24/23 Previous Rx's Medication Instructions Recorded capsaicin 0.1 % topical cream 1 appl topical BID #60 grams 07/09/21 naloxone 4 mg/actuation nasal spray 4 mg intranasal Q2M PRN opioid 08/27/21 overdose #2 ea sodium,potassium,mag sulfates 17.5 See Rx Instructions PO .COMPLEX 05/20/22 gram-3.13 gram-1.6 gram oral soln #354 mL (Suprep Bowel Prep Kit) bisacodyl 5 mg tablet,delayed 10 mg (2 x 5 mg) PO DAILY 7 days 10/12/22 release (Dulcolax (bisacodyl)) #14 tabs ciprofloxacin HCl 500 mg tablet 500 mg PO BID #14 tabs 10/12/22 peg-electrolyte solution 420 gram 240 ml PO Q10M #4,000 mL 10/12/22 oral solution doxycycline monohydrate 100 mg 100 mg PO BID #20 caps 01/20/23 capsule prednisone 5 mg tablet 5 mg PO DIRECTED #78 tabs 01/20/23 benzonatate 200 mg capsule 200 mg PO TID PRN cough #30 caps 03/06/23 pantoprazole 40 mg tablet,delayed 40 mg PO BID #60 tabs 04/02/23 release dexamethasone 4 mg tablet 4 mg PO BID #6 tabs 05/15/23 Allergies Allergy/AdvReac Type Severity Reaction Status Date / Time atorvastatin [From LIPITOR] Allergy Severe Difficulty Verified 05/15/23 19:06 Breathing azithromycin [AZITHROMYCIN] Allergy Severe Difficulty Verified 05/15/23 19:06 Breathing mite-Dermatophagoides Allergy Severe Difficulty Verified 05/15/23 19:06 farinae, vicente Breathing [dust mite - [place]] sumatriptan [From IMITREX] Allergy Severe Difficulty Verified 05/15/23 19:06 Breathing acetaminophen [From TYLENOL] Allergy Unknown Itching Verified 05/15/23 19:06 adhesive tape [ADHESIVE TAPE] Allergy Unknown Rash Verified 05/15/23 19:06 gentamicin [GENTAMICIN] Allergy Unknown Rash Verified 05/15/23 19:06 adalimumab [From Humira] Allergy Rash Verified 05/15/23 19:06 haloperidol [From HALDOL] AdvReac Unknown GI Issues Verified 05/15/23 19:06 ketorolac [From TORADOL] AdvReac Unknown Muscle Verified 05/15/23 19:06 cramps prasterone (DHEA) [From DHEA] AdvReac Unknown Cardiac Verified 05/15/23 19:06 issues varenicline [From CHANTIX] AdvReac Unknown Seizure Verified 05/15/23 19:06 Review of Systems 2 Constitutional: Constitutional: Denies body ache(s), Denies chills and Denies fever(s) ENT: Denies sore throat Cardiovascular: Cardiovascular: Denies chest pain, Denies syncope and Denies dyspnea Respiratory: Respiratory: Denies cough and Denies dyspnea Gastrointestinal: Gastrointestinal: Denies abdominal pain, Denies nausea and Denies vomiting Musculoskeletal: Musculoskeletal: Reports back pain, Reports arthralgias, Reports limited range of motion, Reports muscle weakness, Denies numbness and Reports radiating pain into limb Neurologic: Denies syncope and Denies numbness PMFSH Past Medical History Medical History Asthma Boils Bursitis Chronic pain syndrome Chronic, continuous use of opioids COPD (chronic obstructive pulmonary disease) Diabetes Disc degeneration Eczema Fibromyalgia GERD (gastroesophageal reflux disease) Hx of difficult intubation [employer] (current) use of opiate analgesic Osteoarthritis Osteoporosis Polycythemia Rheumatoid arthritis Sjogrens syndrome Sleep apnea Smoker Surgical History History of bladder suspension procedure History of colonoscopy History of esophagogastroduodenoscopy (EGD) History of removal of cyst History of surgical removal of pilonidal cyst Hx of appendectomy Hx of cholecystectomy Hx of hysterectomy Hx of plastic surgery Hx of tonsillectomy Family History Family History Mother Polycythemia Father Heart attack Other No family history of cancer Social History Social History Household Members: Spouse and Children Housing: House Are you a primary rn patient care to a significant other at home: No Do you presently have visiting nurse or other home services: No Alcohol intake: never Patient Tobacco Use Status: Current everyday Tobacco user Tobacco use type: Cigarette Cigarette Packs Per Day: 1 Cigarettes Per Day: 20.0 Years Smoked: 46 Second Hand Smoke Exposure: Yes Advance Directives: Yes Advance Directives on File: Yes Advance Directives Date on File: 12/24/19 service: No Current occupational status: retired 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 Physical Exam 2 Vital Signs: Vital Signs: Last Vital Signs Temp 98.4 F 05/15/23 19:06 Pulse 94 05/15/23 19:38 Resp 20 05/15/23 20:56 BP 156/68 H 05/15/23 19:38 Pulse Ox 95 05/15/23 19:38 O2 Del Method Room Air 05/15/23 19:38 BMI result Body Mass Index 34.5 Const: General: healthy appearing, comfortable, no acute distress, alert and awake Nutritional Appearance: well nourished Orientation/consciousness: p atient oriented x3 HEENT: Head: Yes normocephalic and Yes atraumatic Eyes: Eyelids: Yes eyelids normal Conjunctivae: conjunctivae normal S clerae: sclerae normal Corneas: corneas normal Pupils: Equal, round and reactive pupils present EOM: EOMs intact bilaterally Neck: Neck: Yes full ROM Resp: Effort & Inspection: normal respiratory effort, able to speak in complete sentences and not labored GI: Inspection: No distended Palpation (GI): Soft to palpation, not firm, nontender, no guarding and not rigid Back/Spine/Pelvis: Other: Tenderness across the lumbar paraspinous region and vertebral region. No step- off deformities palpable Skin: General skin exam: elasticity normal Neuro: General: patient oriented x3 Cranial nerves: Yes CN's II-XII intact bilaterally, Yes Equal, round and reactive pupils present and Yes Bilaterally intact EOM present Cognition (Neuro): normal cognition Extrem: Other: Patient has no visible or palpable deformity to the right shoulder but has tenderness to the entire right shoulder. She has good passive range of motion to the right shoulder but limited active range of motion. There is no edema or tenderness to the right elbow or right wrist. Course Course Course Narrative: RME:?62 yo female hx of OA, RA, DM, fibromyalgia, chronic bronchitis- not O2 dependent, TENISHA, sjogrens syndrome here for eval of right shoulder and right mid back pain s/p mechanical fall at 0100 this morning. she states she was bending over to place a puppy in a crate when she lost her balance and fell onto her right side. no head strike or LOC. she was on the floor for approx 1 hour until her returned and helped her up. took oxycodone 10mg 3 hours ago. CPK, labs and xrs ordered. Full HPI, ROS and PE to be performed by the primary ED provider. Medications Administered Discontinued Medications Generic Name Dose Route Start Last Admin Trade Name Freq PRN Reason Stop Dose Admin Dexamethasone 4 mg 05/15/23 20:41 05/15/23 20:56 Dexamethasone 4 Mg Tablet PO 05/15/23 20:42 4 mg ONCE ONE Administration Morphine Sulfate 8 mg 05/15/23 20:41 05/15/23 20:56 Morphine Sulfate 10 Mg/Ml Cartridge IM 05/15/23 20:42 8 mg ONCE ONE Administration Protocol Medical Decision Making Medical Decision Making MDM Narrative: 62-year-old female presents for evaluation of acute on chronic back pain. She does endorse falling earlier this morning. She had x-rays of the right shoulder and lumbar spine ordered. Patient does not know if she hit her head or lose consciousness. She has no signs of trauma to the head or neck. She denies any head or neck pain. She has not anticoagulated, therefore I do not see any indication to CT scan the head or neck. Reviewed her MRI from less than 1 week ago the patient had no concerning findings that would lead to cauda equina syndrome. Her x-rays show no evidence of acute fracture. Will treat her pain and she can safely follow-up with her outpatient providers Differential Diagnosis Differential Diagnoses: The differential diagnosis associated with the presentation includes Low back pain Muscle strain Sciatica Radiculopathy Disc herniation Lab Data MDM Lab Attestation statement: I reviewed the patient's lab results. Patient has a leukocytosis to 12.6 K. there is no significant left shift. Chemistries are significant for a hyperglycemia of 343 but no evidence of DKA. 05/15/23 19:55 05/15/23 19:55 Labs: Lab Results 05/15/23 Range/Units 19:55 WBC 12.6 H (4.8-10.8) X10*3/uL RBC 5.78 H (4.20-5.50) X10*6/uL Hgb 16.3 H (12.0-16.0) g/dl Hct 50.3 H (37.0-47.0) % MCV 87.0 (80.0-98.0) fL MCH 28.2 (27.0-33.0) pg MCHC 32.4 (31.0-35.0) g/dl RDW 14.2 (11.0-16.0) % Plt Count 239 (160-400) X10*3/uL MPV 9.6 (9.4-12.3) fL Immature Gran % (Auto) 0.6 H (0.0-0.4) % Neut % (Auto) 66.6 (45-73) % Lymph % (Auto) 21.7 (20-40) % [place] % (Auto) 5.8 (2-11) % Eos % (Auto) 4.6 H (0-4) % Baso % (Auto) 0.7 (0-2) % Lymph # (Auto) 2.7 (1.2-4.9) X10*3/uL [place] # (Auto) 0.7 (0.1-1.2) X10*3/uL Eos # (Auto) 0.6 H (0.0-0.4) X10*3/uL Baso # (Auto) 0.1 (0.0-0.2) X10*3/uL Abs Immat Gran (auto) 0.08 H (0.00-0.03) X10*3/uL Absolute Neuts (auto) 8.4 H (2.0-8.3) x10*3/uL Absolute Nucleated RBC 0.000 (0.0-0.012) X10*3/uL Nucleated RBC % (auto) 0.0 (0.0-0.2) /100WBC Sodium 135 (135-145) mmol/L Potassium 4.6 (3.3-5.1) mmol/L Chloride 96 (96-108) mmol/L Carbon Dioxide 27 (22-29) mmol/L Anion Gap 17 (12-20) BUN 12 (9-16) mg/dL Creatinine 0.82 (0.5-1.4) mg/dL Estim Creat Clear Calc 78.7 Estimated GFR > 60 Random Glucose 343 H (60-115) mg/dL Calcium 9.2 (8.4-10.2) mg/dL Total Bilirubin 0.3 (0.0-1.0) mg/dL AST 20 (5-31) U/L ALT 19 (0-31) U/L Alkaline Phosphatase 82 (39-117) U/L Total Creatine Kinase 150 H (26-140) U/L Total Protein 7.1 (6.5-8.0) g/dL Albumin 3.8 (3.5-5.0) g/dL Independent Interpretation I performed an independent interpretation of an: Plain X-Ray (Agree with Radiology interpretation) Radiology Impression Discussion of test interpretation with radiology: I have reviewed the radiologist's reading. Radiologist Impression: There is no dislocation or subluxation suspected. Right shoulder x-ray did not have an adequate AP shoulder, however clinically there is a low suspicion for fracture or dislocation. IMPRESSION: 1. Trace retrolisthesis of L5 on S1, new compared to 2021. Moderate degenerative disease at L5-S1 leading to neural foraminal encroachment. 2. No evidence of acute compression deformities. 3. Mild thoracic spondylosis. Tests considered The following testing was considered but not selected: Considered CT head and C-spine due to the fall but ultimately felt it was not indicated Prescription Management I considered prescription management with: Pain Medication Chronic Conditions Patient?s care impacted by: Diabetes Discharge Plan Discharge Clinical Impression: Acute exacerbation of chronic low back pain, Acute pain of right shoulder Patient Disposition: Home, Self-Care Instructions: Acute Low Back Pain (ED) Additional Instructions: You may continue your home regimen of narcotics as well as muscle relaxers. Take dexamethasone twice daily for the next 3 days This will likely increase your glucose, so I recommend you check your sugar regularly and avoid sugary foods. Your x-rays did not show any new traumatic injuries Follow-up with your primary doctor and your orthopedic surgeon Prescriptions: New dexamethasone 4 mg tablet 4 mg PO BID Qty: 6 0RF No Action yizhhfe-cqhkletpdm-OJH-caff [id number] mg capsule 1 cap PO Q4H PRN (Reason: headache) morphine 15 mg tablet extended release 1 tab PO Q12H multivitamin Tablet 1 tab PO DAILY Suprep Bowel Prep Kit 17.5-3.13-1.6 gram recon soln See Rx Instructions PO .COMPLEX Qty: 354 0RF Rx Instructions: DILUTE; drink full amount early evening ciprofloxacin HCl 500 mg tablet 500 mg PO BID Qty: 14 0RF peg-electrolyte soln 420 gram recon soln 240 ml PO Q10M Qty: 4000 0RF Rx Instructions: until fecal effluent is clear; do not exceed a total volume of 2,000 mL bisacodyl [Dulcolax (bisacodyl)] 5 mg tablet,delayed release (DR/EC) 10 mg PO DAILY 7 Days Qty: 14 0RF pantoprazole 40 mg tablet,delayed release (DR/EC) 40 mg PO BID Qty: 60 3RF baclofen 10 mg tablet 1 tab PO TID aspirin 325 mg Tablet 325 mg PO 1230 hyoscyamine sulfate 0.125 mg Tablet 0.125 mg PO DAILY PRN (Reason: Muscle Pain) mupirocin calcium [Bactroban] 2 % Cream 1 appl TOPICAL DAILY PRN (Reason: Skin Irritation) diclofenac sodium [Voltaren] 75 mg Tablet,Delayed Release (Dr/Ec) 75 mg PO DAILY PRN (Reason: Pain) montelukast 10 mg Tablet 10 mg PO 0030 ammonium lactate 12 % Cream 1 appl TOPICAL DAILY hydroxychloroquine 200 mg Tablet 200 mg PO DAILY albuterol sulfate 90 mcg/actuation HFA aerosol inhaler 2 puff PO Q6H loratadine 10 mg Tablet 10 mg PO 0030 insulin lispro [Humalog KwikPen Insulin] 100 unit/mL Insulin Pen 20 unit SUBCUT QIDWMHS cyclobenzaprine [Flexeril] 5 mg Tablet 5 mg PO BID PRN (Reason: Pain) metformin 1,000 mg tablet 1,000 mg PO BID benzonatate 200 mg capsule 200 mg PO TID PRN (Reason: cough) Qty: 30 0RF oxycodone 5 mg tablet 15 mg PO BID Rx Instructions: Partial Fill upon patient request. insulin glargine-yfgn [Semglee(insulin glargine-yfgn)] 100 unit/mL solution 40 unit subcut BEDTIME doxycycline monohydrate 100 mg capsule 100 mg PO BID Qty: 20 0RF prednisone 5 mg tablet 5 mg PO DIRECTED Qty: 78 0RF Rx Instructions: Take 12 tabs on 1st day, then 11 tabs on 2nd day, then 10 tabs on 3rd day, continue 1 less tablet per day until done diazepam 2 mg tablet 2 mg PO BEDTIME PRN (Reason: Anxiety) pramipexole 0.25 mg tablet 0.25 mg PO BEDTIME magnesium oxide 400 mg (241.3 mg magnesium) tablet 400 mg PO BID capsaicin 0.1 % cream 1 appl topical BID Qty: 60 0RF Rx Instructions: do not wash area for at least 30 min after application gabapentin 300 mg capsule 600 mg PO BEDTIME pramipexole 1 mg tablet 0.25 mg PO DAILY naloxone 4 mg/actuation spray,non-aerosol 4 mg intranasal Q2M PRN (Reason: opioid overdose) Qty: 2 0RF Rx Instructions: spray 1 dose into ONE nostril; alternate nostrils w each dose until help arrives
[2023-05-15 19:38] VITALS: BP 156/68; PULSE 94; RESP 20; O2SAT 95
--- NOTE | 2023-05-15 19:51 | PC.NURSE ---
Labs being drawn at this time. Labs to be sent and analyzed as ordered. Awaiting ED provider initial evaluation. Reports pain and requesting pain medication. Took Oxy 10 at home at 4pm, per pt statement. Hx other fractures d/t falls. Past surgical history with Dr. Fletcher at [facility].
[2023-05-15 20:00] LABS: MANUAL DIFF FLAG NO
[2023-05-15 20:02] LABS: Basophils Absolute Auto 0.1 X10*3/uL (0.0-0.2); Basophils Percent Auto 0.7 % (0-2); Eosinophils Absolute Auto 0.6 X10*3/uL (0.0-0.4); Eosinophils Percent Auto 4.6 % (0-4); Hematocrit 50.3 % (37.0-47.0); Hemoglobin 16.3 g/dl (12.0-16.0); Imm Gran Abs Auto 0.08 X10*3/uL (0.00-0.03); Imm Gran Pct Auto 0.6 % (0.0-0.4); Lymphocytes Absolute Auto 2.7 X10*3/uL (1.2-4.9); Lymphocytes Percent Auto 21.7 % (20-40); Mean Corpuscular HGB Conc 32.4 g/dl (31.0-35.0); Mean Corpuscular Hemoglobin 28.2 pg (27.0-33.0); Mean Platelet Volume 9.6 fL (9.4-12.3); Monocytes Absolute Auto 0.7 X10*3/uL (0.1-1.2); Monocytes Percent Auto 5.8 % (2-11); Neutrophils Absolute Auto 8.4 x10*3/uL (2.0-8.3); Neutrophils Percent Auto 66.6 % (45-73); Platelet Count 239 X10*3/uL (160-400); Red Blood Count 5.78 X10*6/uL (4.20-5.50); Red Cell Distribution Width 14.2 % (11.0-16.0); White Blood Count 12.6 X10*3/uL (4.8-10.8)
[2023-05-15 20:16] LABS: Alanine Aminotransferase 19 U/L (0-31); Albumin Level 3.8 g/dL (3.5-5.0); Alkaline Phosphatase 82 U/L (39-117); Anion Gap 17 (12-20); Aspartate Amino Transferase 20 U/L (5-31); Bilirubin Total 0.3 mg/dL (0.0-1.0); Blood Urea Nitrogen 12 mg/dL (9-16); Calcium 9.2 mg/dL (8.4-10.2); Carbon Dioxide 27 mmol/L (22-29); Chloride 96 mmol/L (96-108); Creatinine Clr Calc Pharmacy 78.7; Estimated Glomerular Filt Rate > 60; Glucose Random 343 mg/dL (60-115); Potassium 4.6 mmol/L (3.3-5.1); Sodium 135 mmol/L (135-145); Total Protein 7.1 g/dL (6.5-8.0)
[2023-05-15 20:56] VITALS: RESP 20
[2023-05-15] MEDS: dexAMETHasone 4 MG TABLET PO (20:56)
[2023-05-15] MEDS: Morphine Sulfate 10 MG/ML CARTRIDGE 8 MG IM (20:56)
[2023-05-15 22:19] VITALS: BP 156/68; PULSE 94; RESP 20; TEMP 36.9; O2SAT 95
== END 2023-05-15 22:20 | disposition home or self-care (01) ==
PROVIDERS: Physician Assistant Medical; Emergency Provider Emergency Medicine; PCP Internal Medicine
DX: G89.11 Acute pain due to trauma (principal); M25.511 Pain in right shoulder; G89.29 Other chronic pain; M54.50 Low back pain, unspecified; E11.9 Type 2 diabetes mellitus without complications; M79.7 Fibromyalgia; M06.9 Rheumatoid arthritis, unspecified; J44.9 Chronic obstructive pulmonary disease, unspecified; Z91.81 History of falling
CPT/HCPCS: 36415; 72070; 72100; 73030; 80053; 82550; 85025; 96372; 99283; 99284; J2270; J8540

== ENCOUNTER 2023-05-20 08:51 | Outpatient (REF) | payer OTHER, SELFPAY ==
--- NOTE | ~2023-05-20 | CT_ITS ---
EXAMINATION: CT CHEST SCREENING CLINICAL INFORMATION: Personal history of nicotine dependence. COMPARISON: CT pulmonary angiogram 03/06/2023. TECHNIQUE: Multidetector volumetric CT imaging of the chest is performed without contrast using low dose technique. Additional 2D coronal and sagittal reformatted images and axial 3D maximum intensity projection (MIP) images are generated on the CT workstation. This CT examination was performed using dose optimization techniques as appropriate, variously including the following: *Automated exposure control *Adjustment of mA and/or kV according to patient size (this includes techniques or standardized protocols for targeted exams where dose is matched to indication/reason for exam; i.e. extremities or head) *Use of iterative reconstruction technique DLP: 101.00 mGy-cm FINDINGS: LUNGS: Marked emphysematous changes are present. Moderate bronchial wall thickening is seen. There is some minimal subpleural reticulation seen at the upper lobes anteriorly. No gross honeycombing is present. No suspicious lung masses are seen. MEDIASTINUM: Some mildly prominent mediastinal lymph nodes seen the largest carinal measuring 1.3 cm, unchanged. No gross mediastinal or hilar lymphadenopathy. Hilar lymph node seen on the CT angiogram not well assessed on this study without IV contrast. CORONARY ARTERY CALCIFICATION: None visualized on this study. PLEURA: There is no pleural effusion. No pleural mass or thickening. AXILLA: No lymphadenopathy. UPPER ABDOMEN: Unremarkable. A granuloma is seen in the left lobe of the liver. OSSEOUS STRUCTURES: There is a right shoulder replacement. CT/CT lung screening IMPRESSION: No findings suspicious for malignancy. Emphysema and bronchial wall thickening is present. Early fibrotic changes at the lung apices. Unchanged mediastinal adenopathy. ASSESSMENT: Lung-RADS category 1: Negative RECOMMENDATION: Routine annual low-dose CT screening in 12 months.
== END 2023-05-20 08:52 | disposition home or self-care (01) ==
LOC: HO.CT 08:51
PROVIDERS: PCP Internal Medicine; Visit Provider Internal Medicine Pulmonary Disease
DX: Z12.2 Encounter for screening for malignant neoplasm of respiratory organs (principal); Z87.891 Personal history of nicotine dependence
CPT/HCPCS: 71271

== ENCOUNTER → 2023-05-22 14:07 | Outpatient (REF) | payer OTHER, SELFPAY | LOC: HO.SL 14:07 | PROVIDERS: Visit Provider Internal Medicine Pulmonary Disease | DX: G47.33 Obstructive sleep apnea (adult) (pediatric) (principal) | CPT/HCPCS: 95806 ==

== ENCOUNTER → 2023-05-22 14:28 | Outpatient (BNV) | payer OTHER, SELFPAY | PROVIDERS: Visit Provider Internal Medicine | DX: R06.83 Snoring (principal) | CPT/HCPCS: 95806 ==

== ENCOUNTER 2023-05-30 14:04 | Outpatient (REF) | payer OTHER, SELFPAY | END 2023-05-30 14:05 | disposition home or self-care (01) | LOC: HO.BBR 14:04 | PROVIDERS: PCP Internal Medicine; Visit Provider Internal Medicine Medical Oncology | DX: D75.1 Secondary polycythemia (principal) | CPT/HCPCS: 85018; 99195 ==

== ENCOUNTER 2023-06-10 14:20 | Outpatient (AMB) | payer OTHER, SELFPAY ==
--- NOTE | 2023-06-10 14:22 | A.OFFVIS_ITS ---
Vital Signs 06/10/23 14:23 Height 5 ft 4 in Weight 210 lb BMI 36.0 BP 148/82 H Blood Pressure Location Lt brachial Position Sitting Pulse 90 Pulse Source Doppler Pulse Oximetry (%) 91 L Oxygen Delivery Method Room Air Intake Visit Reasons: emphysema Allergies atorvastatin [From LIPITOR] Allergy (Severe, Verified 05/15/23 19:06) Difficulty Breathing azithromycin [AZITHROMYCIN] Allergy (Severe, Verified 05/15/23 19:06) Difficulty Breathing mite-Dermatophagoides farinae, vicente [dust mite - [place]] Allergy (Severe, Verified 05/15/23 19:06) Difficulty Breathing sumatriptan [From IMITREX] Allergy (Severe, Verified 05/15/23 19:06) Difficulty Breathing acetaminophen [From TYLENOL] Allergy (Unknown, Verified 05/15/23 19:06) Itching adhesive tape [ADHESIVE TAPE] Allergy (Unknown, Verified 05/15/23 19:06) Rash gentamicin [GENTAMICIN] Allergy (Unknown, Verified 05/15/23 19:06) Rash adalimumab [From Humira] Allergy (Verified 05/15/23 19:06) Rash haloperidol [From HALDOL] Adverse Reaction (Unknown, Verified 05/15/23 19:06) GI Issues ketorolac [From TORADOL] Adverse Reaction (Unknown, Verified 05/15/23 19:06) Muscle cramps prasterone (DHEA) [From DHEA] Adverse Reaction (Unknown, Verified 05/15/23 19:06) Cardiac issues varenicline [From CHANTIX] Adverse Reaction (Unknown, Verified 05/15/23 19:06) Seizure HPI HPI emphysema: Details: 63-year-old lady, active approximately 40 pack-year smoker, with underlying Sjogren, rheumatoid arthritis, erythrocytosis referred for pulmonary evaluation and perioperative risk assessment for endoscopy. Patient states that she has been having chronic bronchitis symptomatic with cough productive of clear sputum. She has been using albuterol MDI with reasonable control her symptoms. She does have underlying TENISHA and her CPAP is unfortunately very old and does not function well. Patient also complain of lower extremity edema. She has enlarged mediastinal/hilar lymph nodes, but under 2 cm. after the last office visit patient had sleep study that did not demonstrate underlying sleep apnea, however some nocturnal hypoxemia. Patient also had CT chest lung screening that did not show any worrisome nodules. She has not had her 2D echocardiogram or pulmonary function test. Patient does complain of significantly elevated blood pressure, her primary care provider is in the process of moving from [facility] to [facility] and is unable to see her. She does complain of dyspnea on exertion. [facility] Medical History Asthma Boils Bursitis Chronic pain syndrome Chronic, continuous use of opioids COPD (chronic obstructive pulmonary disease) Diabetes Disc degeneration Eczema Fibromyalgia GERD (gastroesophageal reflux disease) Hx of difficult intubation half-way (current) use of opiate analgesic Osteoarthritis Osteoporosis Polycythemia Rheumatoid arthritis Sjogrens syndrome Sleep apnea Smoker Surgical History History of bladder suspension procedure History of colonoscopy History of esophagogastroduodenoscopy (EGD) History of removal of cyst History of surgical removal of pilonidal cyst Hx of appendectomy Hx of cholecystectomy Hx of hysterectomy Hx of plastic surgery Hx of tonsillectomy Family History Mother Polycythemia Father Heart attack Other No family history of cancer Social History Household Members: Spouse and Children Housing: House Are you a primary skin care consultant to a significant other at home: No Do you presently have visiting nurse or other home services: No Alcohol intake: never Patient Tobacco Use Status: Current everyday Tobacco user Tobacco use type: Cigarette Cigarette Packs Per Day: 1 Cigarettes Per Day: 20.0 Years Smoked: 46 Second Hand Smoke Exposure: Yes Advance Directives Date on File: 12/24/19 service: No Current occupational status: retired 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 Review of Systems Const Denies daytime sleepiness, Denies excessive sweating, Denies fatigue, Denies fever(s), Denies lethargy, Denies malaise, Denies night sweats, Denies snoring and Denies weight loss Eyes Denies blurry vision and Denies itchy eyes ENT Denies nasal congestion, Denies post nasal drip, Denies sinus pain, Denies sinus pressure and Denies other ( Thrush) Card Denies chest pain, Reports pedal edema, Denies dyspnea, Reports dyspnea on exertion, Denies orthopnea and Denies paroxysmal nocturnal dyspnea Resp Denies cough, Denies hemoptysis, Denies excessive phlegm production, Denies dyspnea, Reports dyspnea on exertion, Denies snoring and Reports wheezing GI Denies abdominal pain and Denies heartburn Musc Denies myalgias, Denies arthralgias and Denies joint swelling Skin/Breast Denies rash Neuro Denies memory loss and Denies seizure-like activity Psych Denies abnormal sleep pattern, Denies anxiety and Denies memory loss Endo Denies excessive sweating, Denies fatigue and Denies heat intolerance Dwain/Lymph Denies easy bruising Aller/Immun Denies itchy eyes, Denies seasonal rhinorrhea and Reports wheezing Physical Exam Vital Signs: Last Vital Signs Pulse 90 06/10/23 14:23 BP 148/82 H 06/10/23 14:23 Pulse Ox 91 L 06/10/23 14:23 Oxygen Delivery Method Room Air 06/10/23 14:23 BMI result Body Mass Index 36.0 Const General: no acute distress and alert Nutritional Appearance: obese Orientation/consciousness: Other orientation findings ( oriented) HEENT Head: Yes atraumatic Eyes General: appearance normal, both eyes and all related structures Sclerae: sclerae normal EOM: EOMs intact bilaterally Neck Neck: Yes supple Lymphatic: no lymphadenopathy noted Resp Effort & Inspection: normal respiratory effort and no use of accessory muscles Auscultation: wheezes expiratory wheezes ( Bilateral) Cardio Rate: regular rate Rhythm: regular rhythm Heart sounds: no gallops, no murmurs and no rubs Skin General skin exam: other ( warm) Extrem General: No clubbing, No cyanosis and No edema Assessment & Plan Assessment & Plan (1) Dyspnea on exertion: Code(s): R06.09 - Other forms of dyspnea Category: Medical Plan: Likely multifactorial with contribution from underlying pulmonary and cardiac etiologies. 2D echocardiogram and pulmonary function test are pending. Will start on Anoro and amlodipine. (2) Personal history of nicotine dependence: Code(s): Z87.891 - Personal history of nicotine dependence Category: Medical Plan: Results of CT chest reviewed, no worrisome pulmonary nodules. Continue with yearly screening, next in April of 2024. Medications: New umeclidinium-vilanterol 62.5-25 mcg/actuation (Anoro Ellipta) 1 inh inhalation DAILY 1 ea 6RF 30 days amlodipine 10 mg PO DAILY 30 tabs 6RF 30 days Discontinued doxycycline monohydrate Discontinued Reason: Doctor's Order 100 mg PO BID 20 caps 0RF prednisone Take 12 tabs on 1st day, then 11 tabs on 2nd day, then 10 tabs on 3rd day, continue 1 less tablet per day until done Discontinued Reason: Doctor's Order 5 mg PO DIRECTED 78 tabs 0RF Coding Level of Care Code Est Pt Level 4 (63479) Diagnoses Dyspnea on exertion R06.09 Personal history of nicotine dependence Z87.893
[2023-06-10 14:23] VITALS: BP 148/82; PULSE 90; O2SAT 91; BMI 36.0
== END 2023-06-10 14:48 | disposition home or self-care (01) ==
PROVIDERS: PCP Internal Medicine; Visit Provider Internal Medicine Pulmonary Disease
DX: R06.09 Other forms of dyspnea (principal); Z87.891 Personal history of nicotine dependence
CPT/HCPCS: 99214

== ENCOUNTER → 2023-06-10 14:20 | Outpatient (BNVA) | payer OTHER, SELFPAY | PROVIDERS: Visit Provider Internal Medicine Pulmonary Disease ==

== ENCOUNTER 2023-07-03 14:04 | Outpatient (AMB) | payer OTHER, SELFPAY ==
--- NOTE | 2023-07-03 14:26 | MHC.PC.OV ---
Vital Signs 07/03/23 14:31 Height 5 ft 4 in Weight 210 lb BMI 36.0 BP 112/54 L Blood Pressure Location Lt radial Position Sitting Respiration 18 Pulse 81 Pulse Source Pulse Oximeter Temp 98.4 F Temp Source Oral Pulse Oximetry (%) 91 L Oxygen Delivery Method Room Air Intake Visit Reasons: New patient visit Intake Note: New patient visit Allergies atorvastatin [From LIPITOR] Allergy (Severe, Verified 07/03/23 14:27) Difficulty Breathing azithromycin [AZITHROMYCIN] Allergy (Severe, Verified 07/03/23 14:27) Difficulty Breathing mite-Dermatophagoides farinae, vicente [dust mite - [place] Citizen] Allergy (Severe, Verified 07/03/23 14:27) Difficulty Breathing sumatriptan [From IMITREX] Allergy (Severe, Verified 07/03/23 14:27) Difficulty Breathing acetaminophen [From TYLENOL] Allergy (Unknown, Verified 07/03/23 14:27) Itching adhesive tape [ADHESIVE TAPE] Allergy (Unknown, Verified 07/03/23 14:27) Rash gentamicin [GENTAMICIN] Allergy (Unknown, Verified 07/03/23 14:27) Rash adalimumab [From Humira] Allergy (Verified 07/03/23 14:27) Rash haloperidol [From HALDOL] Adverse Reaction (Unknown, Verified 07/03/23 14:27) GI Issues ketorolac [From TORADOL] Adverse Reaction (Unknown, Verified 07/03/23 14:27) Muscle cramps prasterone (DHEA) [From DHEA] Adverse Reaction (Unknown, Verified 07/03/23 14:27) Cardiac issues varenicline [From CHANTIX] Adverse Reaction (Unknown, Verified 07/03/23 14:27) Seizure Tobacco use date assessed: 07/03/23 Dental Screening Dental Screen Date: 07/03/23 Did you have a dental visit in the last 12 months?: No Did you have a dental problem in the last 6 months where you did not have access to dental care?: No Was dental information given to patient?: Patient has dentist HPI HPI Comments History of Present Illness Details 63-year-old female pmhx type 2 DM, RA, Sjogrens, fibromyalgia, OA, celiac, UC, polycythemia, likely NHL, presenting for follow up Multiple medical issues. Seeing today for elevated blood pressure. Readings having been high. She was started on amlodipine. Numbers have improved but still not controlled. Undergoing pulmonary, cardiac work up for anesthesia clearance for endoscopy. [facility] Medical History (Updated 07/06/23 @ 11:17 by Dottie Douglass MD) Chronic pain syndrome half-way (current) use of opiate analgesic Osteoporosis Sjogrens syndrome Rheumatoid arthritis Osteoarthritis Chronic, continuous use of opioids GERD (gastroesophageal reflux disease) Hx of difficult intubation Smoker COPD (chronic obstructive pulmonary disease) Asthma Polycythemia Boils Eczema Bursitis Disc degeneration Sleep apnea Diabetes Fibromyalgia Surgical History History of esophagogastroduodenoscopy (EGD) Hx of tonsillectomy History of surgical removal of pilonidal cyst Hx of plastic surgery Hx of hysterectomy Hx of cholecystectomy Hx of appendectomy History of colonoscopy History of bladder suspension procedure History of removal of cyst Family History Mother Polycythemia Father Heart attack Other No family history of cancer Social History Household Members: Spouse and Children Housing: House Are you a primary career coach to a significant other at home: No Do you presently have visiting nurse or other home services: No Alcohol intake: never Patient Tobacco Use Status: Current everyday Tobacco user Tobacco use type: Cigarette Cigarette Packs Per Day: 1 Cigarettes Per Day: 20.0 Years Smoked: 46 e-Cigarette/Vaping Use: Never Used Second Hand Smoke Exposure: Yes Advance Directives Date on File: 12/24/19 service: No Current occupational status: retired 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 Cognitive needs: No Hearing needs: No Vision needs: No Questionnaire PHQ-9 Over the last 2 weeks, how often have you been bothered by any of the following problems? 1. Little interest or pleasure in doing things: not at all 2. Feeling down, depressed, or hopeless: not at all 3. Trouble falling or staying asleep, or sleeping too much: not at all 4. Feeling tired or having little energy: more than half the days 5. Poor appetite or overeating: several days 6. Feeling bad about yourself - or that you are a failure or have let yourself or your family down: not at all 7. Trouble concentrating on things, such as reading the newspaper or watching television: not at all 8. Moving or speaking so slowly that other people could have noticed. Or the opposite - being so fidgety or restless that you have been moving around a lot more than usual: not at all 9. Thoughts that you would be better off or of hurting yourself in some way: not at all Total score: 3 Depression Screening Interpretation: Positive Depression Screening Done: Yes [id number] - PHQ-9 Billing: Yes Source: Developed by Drs. Sumanth Stover, Sun Dan, Pavel Mckenzie and colleagues, with an educational joy from Mayi Zha[employer]. Thrive Questionnaire Date Thrive assessed: 07/03/23 I am a: Patient What is your living situation today?: I have a steady place to live Within the past 12 months, did the food you bought not last and you didn't have the money to get more?: Never true Within the past 12 months, did you worry whether your food would run out before you got money to buy more?: Never true Do you have trouble paying for medicines?: No Do you have trouble getting transportation to medical appointments?: No Do you have trouble paying your heating and electricity bill?: No Do you have trouble taking care of your child, family member or friend?: No Do you have trouble with day-to-day activities such as bathing, preparing meals, shopping, managing finances, etc.?: Yes Are you currently unemployed and looking for a job?: No Are you interested in more education?: No Please select the resources that you would like help with: None Currently or been in a relationship where the following occur: no concerns reported THRIVE Score: 0 AUDIT C Alcohol Use Questionnaire (AUDIT-C) 1. How often do you have a drink containing alcohol?: Never 3. How often do you have six or more drinks on one occasion?: Never Total Score: 0 BERNARDO-7 AMB Questionnaire BERNARDO-7 Date BERNARDO - 7 assessed: 07/03/23 Feeling nervous, anxious, or on edge: 0 = Not at all Not being able to stop or control worryin = Not at all Worrying too much about different things: 0 = Not at all Trouble relaxin = Not at all Being so restless that it is hard to sit still: 0 = Not at all Becoming easily annoyed or irritable: 0 = Not at all Feeling afraid as if something awful might happen: 0 = Not at all Total BERNARDO-7 score (0-4 normal; 5-9 mild; 10-14 moderate; 15-21 severe): 0 Source: Developed by Drs. Sumanth Stover, Sun Dan, Pavel Mckenzie and colleagues, with an educational joy from Mayi Zhaopin. BERNARDO-7 Assessment Billing BERNARDO-7 Assessment Tool: BERNARDO-7 Assessment 38757 ACT Questionnaire In the past 4 weeks, how much of the time did your asthma keep you from getting as much done at work, school or at home?: Some of the time During the past 4 weeks, how often have you had shortness of breath?: 3-6 times a week During the past 4 weeks, how often did your asthma symptoms wake you up at night or earlier than usual in the morning?: Not at all During the past 4 weeks, how often have you had to use your rescue inhaler or nebulizer medication?: 2-3 times a week (once a day) How would you rate your asthma control during the past 4 weeks?: Poorly controlled ACT Interpretation: Positive Score: 16 Review of Systems Const Details: see hpi Physical exam (Primary Care) Vital Signs: Last Vital Signs Temp 98.4 F 07/03/23 14:31 Pulse 81 07/03/23 14:31 Resp 18 07/03/23 14:31 BP 112/54 L 07/03/23 14:31 Pulse Ox 91 L 07/03/23 14:31 Oxygen Delivery Method Room Air 07/03/23 14:31 BMI result Body Mass Index 36.0 Tobacco/Smoking Status: Tobacco use Status Tobacco use date assessed 07/03/23 07/03/23 14:36 Patient Tobacco Use Status Current everyday Tobacco 07/03/23 14:36 Tobacco use type Cigarette 07/03/23 14:36 e-Cigarette/Vaping Use Never Used 07/03/23 14:36 PHQ-9: PHQ-9 Score PHQ-9: Total score 3 07/03/23 16:01 Depression Screening Interpretation: Positive Thrive Assessment: Date of Thrive Assessment Date Thrive assessed 07/03/23 07/03/23 14:39 Currently or been in a relationship where the following occur: no concerns reported Const Other: PHYSICAL EXAM: GENERAL: Alert and oriented x 3. NAD EYES: EOMI. Anicteric. HENT: Moist mucous membranes. No scleral icterus. No cervical lymphadenopathy. LUNGS: Clear to auscultation bilaterally. CARDIOVASCULAR: Regular rate and rhythm. No murmur. No JVD. ABDOMEN: Soft, non-tender +bs EXTREMITIES: No edema. Non-tender. SKIN: No rashes or lesions. Warm. NEUROLOGIC: No focal neurological deficits. CN II-XII grossly intact PSYCHIATRIC: Cooperative. Appropriate mood and affect Assessment and Plan Assessment & Plan (1) Lymphoproliferative disorder: Comment: undergoing work up for anesthesia clearance Code(s): D47.9 - Neoplasm of uncertain behavior of lymphoid, hematopoietic and related tissue, unspecified (2) Diabetes: Comment: IDDM. Elevated BP-improved without control. start losartan 25mg daily Code(s): E11.9 - Type 2 diabetes mellitus without complications Qualifiers: Diabetes mellitus type: type 2 Diabetes mellitus readers' advisory service librarian insulin use: unspecified readers' advisory service librarian insulin use status Diabetes mellitus complication status: with hyperglycemia Qualified Code(s): E11.65 - Type 2 diabetes mellitus with hyperglycemia (3) Rheumatoid arthritis: Comment: 2006 - hydroxychloroquine started. Last eye exam 12/2021 Code(s): M06.9 - Rheumatoid arthritis, unspecified Qualifiers: Rheumatoid arthritis location: multiple sites Rheumatoid factor presence: with rheumatoid factor Qualified Code(s): M05.79 - Rheumatoid arthritis with rheumatoid factor of multiple sites without organ or systems involvement (4) Sjogrens syndrome: Code(s): M35.00 - Sjogren syndrome, unspecified Qualifiers: Sjogren organ or system involvement: unspecified organ involvement Qualified Code(s): M35.00 - Sjogren syndrome, unspecified Orders: Orders Hemoglobin A1c 07/03/23 E11.9 - Type 2 diabetes mellitus without complications, R30.0 - Dysuria UA CC w/rflx Micro + Cult 07/03/23 E11.9 - Type 2 diabetes mellitus without complications, R30.0 - Dysuria Medications: New losartan 25 mg PO DAILY 90 tabs 3RF 90 days Changed From amlodipine 10 mg PO DAILY 30 days 30 tabs 6RF To amlodipine 10 mg PO DAILY 90 tabs 3RF 90 days Coding Level of Care Code Tele Est Pt Level 4 (04733) Complex EM visit Add On G2211 Diagnoses Lymphoproliferative disorder D47.9 Type 2 diabetes mellitus with hyperglycemia, unspecified whether readers' advisory service librarian insulin use E11.65 Diabetes mellitus type: type 2 Diabetes mellitus chcf insulin use: unspecified chcf insulin use status Diabetes mellitus complication status: with hyperglycemia Rheumatoid arthritis involving multiple sites with positive rheumatoid factor M05.79 Rheumatoid arthritis location: multiple sites Rheumatoid factor presence: with rheumatoid factor Sjogren's syndrome, with unspecified organ involvement M35.00 Sjogren organ or system involvement: unspecified organ involvement Additional Codes BERNARDO-7 Assessment Billing - BERNARDO-7 Assessment Tool: BERNARDO-7 Assessment [id number] ([id number])
[2023-07-03 14:31] VITALS: BP 112/54; PULSE 81; RESP 18; TEMP 36.9; O2SAT 91; BMI 36.0
== END 2023-07-03 15:22 | disposition home or self-care (01) ==
PROVIDERS: PCP Internal Medicine; Visit Provider Internal Medicine
DX: E11.65 Type 2 diabetes mellitus with hyperglycemia (principal); D47.9 Neoplasm of uncertain behavior of lymphoid, hematopoietic and related tissue, unspecified; M05.79 Rheumatoid arthritis with rheumatoid factor of multiple sites without organ or systems involvement; M35.00 Sjogren syndrome, unspecified
CPT/HCPCS: 99214

== ENCOUNTER → 2023-07-16 07:59 | Outpatient (REF) | payer OTHER, SELFPAY ==
--- NOTE | 2023-07-16 08:01 | CA_ITS ---
Transthoracic Echocardiogram Patient (Last, First, Middle): Lashon Parra, Gender: Female Date of : 1960 Age: 63 Procedure Date: 07/16/2023 Procedure Type: Transthoracic Echocardiogram Location: OP Height: 162.56 cm Weight: 90.72 kg BSA: 1.96 m2 Heart Rate: bpm BP: 143 / 75 mmHg Rn Coronary Care Unit: [facility] Referring MD: Jean Pierre Nevarez MD Symptoms: R06.09 - Other forms of dyspnea Study Quality: Technically Difficult, contrast ECG Rhythm: Sinus Conclusions: - The left ventricular systolic function is hyperdynamic. The visually estimated ejection fraction is >70%. - There is mild calcification of the aortic valve. - No obvious valvular pathology seen on this study. - The right ventricular systolic pressure is 56 mmHg. Mild pulmonary hypertension is present. - There is mild dilatation of the ascending aorta measuring 4.00 cm. Findings Procedure Information Contrast agent, definity, is being given per protocol without apparent complications. Left Ventricle Normal left ventricular cavity size. The left ventricular systolic function is hyperdynamic. The visually estimated ejection fraction is >70%. There is no evidence of regional wall motion abnormalities. There is no dynamic left ventricular outflow tract obstruction. Diastolic function is normal for age. There is mild septal asymmetric hypertrophy. Right Ventricle Mildly increased right ventricular cavity size. There is normal right ventricular systolic function. Atria Both atria are normal in size. Aortic Valve There is a normal trileaflet aortic valve. There is mild calcification of the aortic valve. There is no aortic valve stenosis. There is no aortic valve regurgitation. Mitral Valve The mitral valve appears normal. There is trace mitral valve regurgitation. There is no mitral valve stenosis. Pulmonic Valve The pulmonic valve is likely normal. Tricuspid Valve There is trace tricuspid valve regurgitation. The right ventricular systolic pressure is 56 mmHg. Mild pulmonary hypertension is present. Great Vessels There is mild dilatation of the ascending aorta measuring 4.00 cm. Venous The inferior vena cava is mildly dilated and collapses less than 50% with inspiration. Pericardium/Pleural There is a trivial pericardial effusion. Prior Study Comparison No prior study available for comparison. Recommendations, Care & Conclusions No obvious valvular pathology seen on this study. Measurements 2D Linear Measurements IVSd: 1.13 0.6-0.9/0.6-1.0 cm LVIDd: 4.54 3.9-5.3/4.2-5.9 cm LVIDd Index: 2.32 2.4-3.2/2.2-3.1 cm/m2 LVIDs: 2.70 2.0-3.6 cm LVPWd: 0.96 0.7-1.1 cm LA Diam: 3.80 2.7-3.8/3.0-4.0 cm LAIDs Index: 1.94 1.5-2.3 cm/m2 LV Mass: 205.09 67-162/88-224 g LV Mass Index: 104.64 43-95/49-115 g/m2 LVOT Diam: 2.00 3.0+(-)1.3 cm Mitral Valve MV Pk E: 0.69 MV PK A: 0.90 MV Decel Time: 226.00 E/A: 0.80 E'Lateral: 8.16 E'Medial: 6.74 E/E' Med: 10.20 E/E' Lat: 8.40 PHT: 66.00 MVA PHT: 3.33 Decel [place]: 3.04 Aortic Valve AoV Pk Kaden: 1.91 AoV Mn Kaden: 1.33 AoV VTI: 0.36 AoV Pk Grad: 15.00 Aov Mn Grad: 8.00 AILIN Cont.VTI: 2.27 LVOT LVOT Pk Kaden: 1.57 LVOT Mn Kaden: 1.03 LVOT VTI: 0.26 LVOT Pk Grad: 10.00 LVOT Mn Grad: 5.00 LVOT Diam: 2.00 LVOT Area: 3.14 Diastolic Function MV Pk E: 0.69 MV Pk A: 0.90 E/A: 0.80 E'Medial: 6.74 E/E' Med: 10.20 E' Laterial: 8.16 E/E' Lat: 8.40 Right Ventricle TAPSE (mm): 22.80 TVS' Kaden: 17.00 Tricuspid Valve TR Pk Kaden: 3.22 TR Pk Grad: 41.00 RA Press: 15.00 RVSP: 56.00 Great Vessels Aorta Sinus of Valsalva: 3.53 2.0-3.[address] [place]: 2.64 1.7-3.4 cm Ao Asc: 4.00 2.1-3.4 cm Updated in Other Vendor System with Status of Final Matt Huerta MD electronically signed on 07/17/2023 10:49:54 AM with status of Final
== END ==
LOC: HO.CARD 07:59
PROVIDERS: PCP Internal Medicine; Visit Provider Internal Medicine Pulmonary Disease
DX: R06.09 Other forms of dyspnea (principal)
CPT/HCPCS: 93306; Q9957

== ENCOUNTER → 2023-07-16 08:01 | Outpatient (BNV) | payer OTHER, SELFPAY | PROVIDERS: PCP Internal Medicine; Visit Provider Internal Medicine | DX: I35.8 Other nonrheumatic aortic valve disorders (principal); I42.2 Other hypertrophic cardiomyopathy | CPT/HCPCS: 93306 ==

== ENCOUNTER 2023-07-22 18:08 | Outpatient (REF) | payer OTHER, SELFPAY ==
[2023-07-22 18:20] LABS: Appearance Urine Cloudy; Color Urine Yellow; Glucose Urine UA >=1000 mg/dL (Negative); Leukocyte Esterase Urine Negative (Negative); Nitrite Urine Positive (Negative); Specific Gravity - Urine 1.015 (1.005-1.025); UMIC TRIGGER UACC YES; Urine Blood Negative (Negative); Urine Ketones Negative (Negative); Urine Protein Negative (Neg-Trace)
[2023-07-22 18:31] LABS: Bacteria Urine 4+ (None Seen); Hyaline Casts Urine 0-2 /LPF (0-2); RBC Urine 0-2 /HPF (0-2); UACC Culture Trigger YES; WBC Urine 0-5 /HPF (0-5)
== END 2023-07-22 18:09 | disposition home or self-care (01) ==
LOC: HO.LNP 18:08
PROVIDERS: Visit Provider Internal Medicine
DX: R30.0 Dysuria (principal); E11.9 Type 2 diabetes mellitus without complications
CPT/HCPCS: 81001; 87086; 87088; 87186

== ENCOUNTER 2023-07-29 13:57 | Outpatient (REF) | payer OTHER, SELFPAY ==
[2023-07-29 15:48] LABS: Appearance Urine Clear; Color Urine Yellow; Glucose Urine UA >=1000 mg/dL (Negative); Leukocyte Esterase Urine Negative (Negative); Nitrite Urine Negative (Negative); PH 5.5 (5.0-9.0); UMIC TRIGGER UACC YES; Urine Blood Negative (Negative); Urine Ketones Negative (Negative); Urine Protein Negative (Neg-Trace)
[2023-07-29 16:09] LABS: Bacteria Urine None Seen (None Seen); Hyaline Casts Urine 0-2 /LPF (0-2); RBC Urine 0-2 /HPF (0-2); Squamous Epithelial Cell Urine 0-2 /HPF (0-2); WBC Urine 0-5 /HPF (0-5)
[2023-07-29 16:17] LABS: Estimated Average Glucose 214 mg/dL; Hemoglobin A1c % 9.1 % (<6.0)
== END 2023-07-29 13:58 | disposition home or self-care (01) ==
LOC: HO.RESP 13:57
PROVIDERS: Absent Provider Internal Medicine; PCP Internal Medicine; Visit Provider Internal Medicine Pulmonary Disease
DX: R30.0 Dysuria (principal); E11.9 Type 2 diabetes mellitus without complications
CPT/HCPCS: 36415; 81001; 83036

== ENCOUNTER 2023-09-16 14:55 | Outpatient (REF) | payer OTHER, SELFPAY | END 2023-09-16 14:56 | disposition home or self-care (01) | LOC: HO.BBR 14:55 | PROVIDERS: PCP Internal Medicine; Visit Provider Internal Medicine Medical Oncology | DX: D75.1 Secondary polycythemia (principal) | CPT/HCPCS: 85014; 85018; 99195 ==

== ENCOUNTER 2023-10-06 14:59 | Outpatient (REF) | payer OTHER, SELFPAY | END 2023-10-06 15:00 | disposition home or self-care (01) | LOC: HO.BBR 14:59 | PROVIDERS: PCP Internal Medicine; Visit Provider Internal Medicine Medical Oncology | DX: D75.1 Secondary polycythemia (principal) | CPT/HCPCS: 85014; 85018; 99195 ==

== ENCOUNTER 2023-10-21 13:01 | Outpatient (REF) | payer OTHER, SELFPAY ==
--- NOTE | ~2023-10-21 | US_ITS ---
EXAMINATION: US ABDOMEN LIMITED CLINICAL INFORMATION: Intra-abdominal and pelvic swelling, mass and lump, unspecified. Right upper quadrant/periumbilical hernia. COMPARISON: X-ray KUB 10/15/2022 and 10/11/2022. CT abdomen and pelvis 01/02/2022. TECHNIQUE: Real-time imaging of the periumbilical area as indicated by patient. FINDINGS: No mass, hernia, adenopathy or fluid collection is seen. US/US abdomen limited IMPRESSION: Negative exam. Electronically signed by: Ricky Magdaleno MD 10/22/2023 01:16 PM EDT
== END 2023-10-21 13:02 | disposition home or self-care (01) ==
LOC: HO.HMGCX 13:01
PROVIDERS: PCP Internal Medicine; Visit Provider Internal Medicine
DX: R10.9 Unspecified abdominal pain (principal); R19.00 Intra-abdominal and pelvic swelling, mass and lump, unspecified site; Z87.19 Personal history of other diseases of the digestive system
CPT/HCPCS: 76705

== ENCOUNTER 2023-11-03 14:47 | Outpatient (AMB) | payer OTHER, SELFPAY ==
--- NOTE | 2023-11-03 14:54 | MHC.OFFVIS ---
Vital Signs 11/03/23 14:57 Height 5 ft 4 in Weight 210 lb BMI 36.0 BP 158/72 H Blood Pressure Location Lt brachial Position Sitting Pulse 97 Intake Visit Reasons: follow up Intake Note: Lashon presents in the office as a follow up. CC: Pain in the RUQ and states that it is NOT a hernia - she states that it is something. Constipation and she would like to discuss having COLO and EGD. Setup Technician Required: No Allergies atorvastatin [From LIPITOR] Allergy (Severe, Verified 11/03/23 14:57) Difficulty Breathing azithromycin [AZITHROMYCIN] Allergy (Severe, Verified 11/03/23 14:57) Difficulty Breathing mite-Dermatophagoides farinae, vicente [dust mite - [place]] Allergy (Severe, Verified 11/03/23 14:57) Difficulty Breathing sumatriptan [From IMITREX] Allergy (Severe, Verified 11/03/23 14:57) Difficulty Breathing house dust Allergy (Mild, Verified 11/03/23 15:00) Unknown acetaminophen [From TYLENOL] Allergy (Unknown, Verified 11/03/23 14:57) Itching adhesive tape [ADHESIVE TAPE] Allergy (Unknown, Verified 11/03/23 14:57) Rash gentamicin [GENTAMICIN] Allergy (Unknown, Verified 11/03/23 14:57) Rash adalimumab [From Humira] Allergy (Verified 11/03/23 14:57) Rash haloperidol [From HALDOL] Adverse Reaction (Unknown, Verified 11/03/23 14:57) GI Issues ketorolac [From TORADOL] Adverse Reaction (Unknown, Verified 11/03/23 14:57) Muscle cramps prasterone (DHEA) [From DHEA] Adverse Reaction (Unknown, Verified 11/03/23 14:57) Cardiac issues varenicline [From CHANTIX] Adverse Reaction (Unknown, Verified 11/03/23 14:57) Seizure HPI HPI follow up: Details: 63 yr old f with history of Sjogren's syndrome, smoking, SECONDARY erythrocytosis (DAVID neg), DM, TENISHA, fibromyalgia, and rheumatoid arthritis being seen for follow up RECAP: She had lost a lot of weight 346#--194# for 18 months she was c/o epigastric pain when she eats she sticks to apples and pasta which is ok beef is the worst ok with sea food she denied nausea and vomiting appetite is poor she had early satiety, feeling full all the time on PPI--not helping above sx she has had diarrhea for life, on chronic imodium and levsin colonoscopy 01/2020 with Panich and had polpy removed --hyperplastic per path CT chest at [facility]-- no report, personally reviewed, pancreas looks ok, stomach contracted, some cntrast like material in stomach gliadin AB was positive DEXA: pos for osteopenia EGD/Switzer: 12/07 Endoscopy Findings: inlet patch 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 Duodenum, biopsy: Chronic inactive duodenitis with Calderon gland hyperplasia. B. Stomach, biopsy: Antral-type and oxyntic mucosa with mild chronic inactive inflammation; no Helicobacter organisms seen. C. GE junction, biopsy: - Cardiofundic-type mucosa with mild chronic, focally active, inflammation; no intestinal metaplasia seen. - Chronic esophagitis. D. Esophagus, random, biopsy: Squamous epithelium within normal limits; no inflammation seen. E. Terminal ileum, biopsy: Small intestinal mucosa within normal limits. F. Colon, right, biopsy: Focally active colitis. G. Colon, left and transverse, biopsy: Colonic mucosa within normal limits. H. Rectum, biopsy: Rectal mucosa within normal limits. She presented to the office 1 wk ago, 10/10 pressure pain epigastric area, with nausea she has small vol bowel movements--passing gas, no blood appetite is poor taking morphine, 15 MST BID, oxycodone TID prn--not helping her abdo pain coughs a lot in the morning, has fits, sometimes with blood--going on for long time KUB: constipation UA: pos for E coli CXR: no acute findings LABS: polycythemia, CRP 3 she was given movantik CT chest 05/2023- COPD changes, US abdo- 11/10--no hernia or mass INTERIM: she had nasty case of bronchitis, now recovered she has ruq pain when she passes stool it can be lightnening if coughs it is worse food does not affect the pain stool can be painful coming out putting a lot of pressure she goes every few days she takes oxycodone TID also MS contin BID EXAM: GENERAL: The patient is well developed and nontoxic. VITAL SIGNS:see workflow HEENT: Nonicteric sclerae, PERRLA, EOMI. Oropharynx clear. Moist mucous membranes. Conjunctivae appear well perfused. No thyroid mass. CHEST: Chest wall is nontender. HEART: Regular rate and rhythm without murmurs. LUNGS: mild wheeze ABDOMEN: Soft, positive bowel sounds, nontender, no organomegaly.no flank tenderness SKIN: No rash, no excessive bruising, petechiae, or purpura. NEUROLOGIC: Cranial nerves II-XII intact without motor/sensory deficit. 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 Osteoporosis Sjogrens syndrome Rheumatoid arthritis Osteoarthritis Chronic, continuous use of opioids GERD (gastroesophageal reflux disease) Hx of difficult intubation Smoker COPD (chronic obstructive pulmonary disease) Asthma Polycythemia Boils Eczema Bursitis Disc degeneration Sleep apnea Diabetes Fibromyalgia Surgical History History of esophagogastroduodenoscopy (EGD) Hx of tonsillectomy History of surgical removal of pilonidal cyst Hx of plastic surgery Hx of hysterectomy Hx of cholecystectomy Hx of appendectomy History of colonoscopy History of bladder suspension procedure History of removal of cyst Family History Mother Polycythemia Father Heart attack Other No family history of cancer Social History Household Members: Spouse and Children Housing: House Are you a primary patient care specialist to a significant other at home: No Do you presently have visiting nurse or other home services: No Alcohol intake: never Patient Tobacco Use Status: Current everyday Tobacco user Tobacco use type: Cigarette Cigarette Packs Per Day: 1 Cigarettes Per Day: 20.0 Years Smoked: 46 e-Cigarette/Vaping Use: Never Used Second Hand Smoke Exposure: Yes Advance Directives Date on File: 12/24/19 service: No Current occupational status: retired 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 Cognitive needs: No Hearing needs: No Vision needs: No Assessment & Plan Assessment & Plan (1) Epigastric abdominal pain: Code(s): R10.13 - Epigastric pain Category: Medical Plan: see above Coding Level of Care Code Est Pt Level 3 (05790) Diagnoses Epigastric abdominal pain R10.13
[2023-11-03 14:57] VITALS: BP 158/72; PULSE 97; BMI 36.0
== END 2023-11-03 15:32 | disposition home or self-care (01) ==
PROVIDERS: PCP Internal Medicine; Visit Provider Internal Medicine Gastroenterology
DX: R10.13 Epigastric pain (principal)
CPT/HCPCS: 99213

== ENCOUNTER → 2023-11-03 14:47 | Outpatient (BNVA) | payer OTHER, SELFPAY | PROVIDERS: PCP Internal Medicine; Visit Provider Internal Medicine Gastroenterology ==

== ENCOUNTER 2023-11-07 15:03 | Outpatient (AMB) | payer OTHER, SELFPAY ==
--- NOTE | 2023-11-07 12:52 | A.OFFPC_ITS ---
Vital Signs 11/07/23 15:36 Height 5 ft 4 in Weight 210 lb BMI 36.0 BP 108/68 Blood Pressure Location Lt brachial Position Sitting Pulse 70 Pulse Source Pulse Oximeter Pulse Oximetry (%) 90 L Oxygen Delivery Method Room Air Intake Visit Reasons: Transfer from [facility] Intake Note: Patient [place] here [place] [facility] [place] [facility] [place] Patient reports she has seen the gastro doctor and he wants to put her on movantik. Patient reports if she takes the movantik and fluconazole she can become toxic and she would like to discuss this further. Privacy Specialist Required: No Accompanied by: Spouse Allergies atorvastatin [From LIPITOR] Allergy (Severe, Verified 11/07/23 15:41) Difficulty Breathing azithromycin [AZITHROMYCIN] Allergy (Severe, Verified 11/07/23 15:41) Difficulty Breathing mite-Dermatophagoides farinae, vicente [dust mite - [place]] Allergy (Severe, Verified 11/07/23 15:41) Difficulty Breathing sumatriptan [From IMITREX] Allergy (Severe, Verified 11/07/23 15:41) Difficulty Breathing house dust Allergy (Mild, Verified 11/07/23 15:41) Unknown acetaminophen [From TYLENOL] Allergy (Unknown, Verified 11/07/23 15:41) Itching adhesive tape [ADHESIVE TAPE] Allergy (Unknown, Verified 11/07/23 15:41) Rash gentamicin [GENTAMICIN] Allergy (Unknown, Verified 11/07/23 15:41) Rash adalimumab [From Humira] Allergy (Verified 11/07/23 15:41) Rash haloperidol [From HALDOL] Adverse Reaction (Unknown, Verified 11/07/23 15:41) GI Issues ketorolac [From TORADOL] Adverse Reaction (Unknown, Verified 11/07/23 15:41) Muscle cramps prasterone (DHEA) [From DHEA] Adverse Reaction (Unknown, Verified 11/07/23 15:41) Cardiac issues varenicline [From CHANTIX] Adverse Reaction (Unknown, Verified 11/07/23 15:41) Seizure Tobacco use date assessed: 07/03/23 Dental Screening Dental Screen Date: 07/03/23 HPI HPI Comments History of Present Illness Details 63-year-old female pmhx type 2 DM, RA, S jogrens, fibromyalgia, OA, celiac, UC, polycythemia, 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 Had peripheral smears concerning for lymphoproliferative disorders. Per patients she was scheduled for endoscopy/colonoscopy for evaluation however anesthesia wanted this held -she underwent pulmonary work up, cardiac work up. Will repeat Endocrine: Type 2 diabetes: On humalog, lantus, metformin. Overdue A1C. GI: History of duodenitis, esophagatis, colitis. Had double endoscopy 2020. Seen in 2022 with GI for possible repeat. Recently prescribed movantik Pulm: Diagnosed with COPD. TENISHA on cpap. Following with Dr Nevarez CV: HTN on amlodipine. Echo 06/2023. Hyperdynamic EF>70%. Mild pulmonary hypertension ID: Frequent UTI. Underwent mon pubis lift at [facility]. Decreased incidence but still frequent. On daily prophylaxis. MSK/Rheuma Chronic pain: Multifactoria-RA/Sjogrens/Fibromyalgia/osteoarthrits/neuropathy. MRI 2020 disc desiccation at L5-S1 with annular bulge, disc protrustion, bony facet arthropathy on left L5-s1 impacting lateral aspect of the traversing left S1 nerve root. She repeated MRI in 2023. 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 Was following at pain management at [facility], previous to that Dr Wilkinson. On chronic opiate therapy, HCQ. ROS CONSTITUTIONAL: Denies weight loss, fever and chills. HEENT: Denies changes in vision and hearing. RESPIRATORY: Denies SOB and cough. CV: Denies palpitations and CP GI: Denies abdominal pain, nausea, vomiting and diarrhea. : Denies dysuria and urinary frequency. MSK: Denies new myalgia and joint pain. SKIN: Denies rash and pruritus. NEUROLOGICAL: Denies headache PSYCHIATRIC: Denies recent changes in mood. PHYSICAL EXAM: GENERAL: Alert and oriented x 3. NAD EYES: EOMI. Anicteric. HENT: Moist mucous membranes. No scleral icterus. No cervical lymphadenopathy. LUNGS: Clear to auscultation bilaterally. CARDIOVASCULAR: Regular rate and rhythm. No murmur. No JVD. ABDOMEN: Soft, non-tender +bs EXTREMITIES: No edema. Non-tender. SKIN: No rashes or lesions. Warm. NEUROLOGIC: No focal neurological deficits. CN II-XII grossly intact PSYCHIATRIC: Cooperative. 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 Osteoporosis Sjogrens syndrome Rheumatoid arthritis Osteoarthritis Chronic, continuous use of opioids GERD (gastroesophageal reflux disease) Hx of difficult intubation Smoker COPD (chronic obstructive pulmonary disease) Asthma Polycythemia Boils Eczema Bursitis Disc degeneration Sleep apnea Diabetes Fibromyalgia Surgical History History of esophagogastroduodenoscopy (EGD) Hx of tonsillectomy History of surgical removal of pilonidal cyst Hx of plastic surgery Hx of hysterectomy Hx of cholecystectomy Hx of appendectomy History of colonoscopy History of bladder suspension procedure History of removal of cyst Family History (Updated 11/07/23 @ 12:53 by Caryl David CMA) Mother Polycythemia TIA (transient ischemic attack) Father Heart attack Other No family history of cancer Social History Household Members: Spouse and Children Housing: House Are you a primary rn transitional care to a significant other at home: No Do you presently have visiting nurse or other home services: No Alcohol intake: never Patient Tobacco Use Status: Current everyday Tobacco user Tobacco use type: Cigarette Cigarette Packs Per Day: 1 Cigarettes Per Day: 20.0 Years Smoked: 46 e-Cigarette/Vaping Use: Never Used Second Hand Smoke Exposure: Yes Advance Directives Date on File: 12/24/19 service: No Current occupational status: retired 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 Cognitive needs: No Hearing needs: No Vision needs: No Questionnaire Thrive Questionnaire Date Thrive assessed: 07/03/23 BERNARDO-7 AMB Questionnaire BERNARDO-7 Date BERNARDO - 7 assessed: 07/03/23 Source: Developed by Drs. Sumanth Stover, Sun Dan, Pavel Mckenzie and colleagues, with an educational joy from [employer]. Physical exam (Primary Care) Vital Signs: Last Vital Signs Pulse 70 11/07/23 15:36 BP 108/68 11/07/23 15:36 Pulse Ox 90 L 11/07/23 15:36 Oxygen Delivery Method Room Air 11/07/23 15:36 BMI result Body Mass Index 36.0 Tobacco/Smoking Status: Tobacco use Status Tobacco use date assessed 07/03/23 11/07/23 12:54 Patient Tobacco Use Status Current everyday Tobacco 11/07/23 12:54 Tobacco use type Cigarette 11/07/23 12:54 e-Cigarette/Vaping Use Never Used 11/07/23 12:54 Thrive Assessment: Date of Thrive Assessment Date Thrive assessed 07/03/23 11/07/23 12:54 Assessment and Plan Assessment & Plan (1) Rheumatoid arthritis: Comment: 2006 - hydroxychloroquine started. Last eye exam 12/2021 Code(s): M06.9 - Rheumatoid arthritis, unspecified Qualifiers: Rheumatoid arthritis location: multiple sites Rheumatoid factor presence: with rheumatoid factor Qualified Code(s): M05.79 - Rheumatoid arthritis with rheumatoid factor of multiple sites without organ or systems involvement Plan: Recommend continued follow up with rheumatology (2) Diabetes: Comment: IDDM. Code(s): E11.9 - Type 2 diabetes mellitus without complications Qualifiers: Diabetes mellitus complication status: with hyperglycemia Diabetes mellitus residential insulin use: unspecified technician terminal and repeater insulin use status Diabetes mellitus type: type 2 Qualified Code(s): E11.65 - Type 2 diabetes mellitus with hyperglycemia Plan: Labs ordered. patient advised to go today. (3) Erythrocytosis: Code(s): D75.1 - Secondary polycythemia Plan: continue follow up with heme/onc. Will repeat peripheral smear Orders: Orders Complete Blood Count Auto Diff 11/07/23 D47.9 - Neoplasm of uncertain behavior of lymphoid, hematopoietic and related tissue, unspecified, K59.00 - Constipation, unspecified, R76.8 - Other specified abnormal immunological findings in serum, E11.65 - Type 2 diabetes mellitus with hyperglycemia Pathologist Review - CBC 11/07/23 D47.9 - Neoplasm of uncertain behavior of lymphoid, hematopoietic and related tissue, unspecified, K59.00 - Constipation, unspecified, R76.8 - Other specified abnormal immunological findings in serum, E11.65 - Type 2 diabetes mellitus with hyperglycemia Lipid Panel 11/07/23 D47.9 - Neoplasm of uncertain behavior of lymphoid, hematopoietic and related tissue, unspecified, K59.00 - Constipation, unspecified, R76.8 - Other specified abnormal immunological findings in serum, E11.65 - Type 2 diabetes mellitus with hyperglycemia Comprehensive Met. Panel 11/07/23 D47.9 - Neoplasm of uncertain behavior of lymphoid, hematopoietic and related tissue, unspecified, K59.00 - Constipation, unspecified, R76.8 - Other specified abnormal immunological findings in serum, E11.65 - Type 2 diabetes mellitus with hyperglycemia Microalbumin, Random (w Creat) 11/07/23 D47.9 - Neoplasm of uncertain behavior of lymphoid, hematopoietic and related tissue, unspecified, K59.00 - Constipation, unspecified, R76.8 - Other specified abnormal immunological findings in serum, - Type 2 diabetes mellitus with hyperglycemia Hepatitis B Surface Antigen 11/07/23 Z20.2 - Contact with and (suspected) exposure to infections with a predominantly sexual mode of transmission, Z11.3 - Encounter for screening for infections with a predominantly sexual mode of transmission Hepatitis C Antibody 11/07/23 Z20.2 - Contact with and (suspected) exposure to infections with a predominantly sexual mode of transmission, Z11.3 - Encounter for screening for infections with a predominantly sexual mode of transmission CT NG by PCR 11/07/23 Z20.2 - Contact with and (suspected) exposure to infections with a predominantly sexual mode of transmission, Z11.3 - Encounter for screening for infections with a predominantly sexual mode of transmission Syphilis Screen 11/07/23 Z20.2 - Contact with and (suspected) exposure to infections with a predominantly sexual mode of transmission, Z11.3 - Encounter for screening for infections with a predominantly sexual mode of transmission Hemoglobin A1c 11/07/23 D47.9 - Neoplasm of uncertain behavior of lymphoid, hem atopoietic and related tissue, unspecified, K59.00 - Constipation, unspecified, R76.8 - Other specified abnormal immunological findings in serum, - Type 2 diabetes mellitus with hyperglycemia HIV Ab/Ag 11/07/23 Z11.3 - Encounter for screening for infections with a predominantly sexual mode of transmission Medications: New pregabalin (Lyrica) 75 mg PO BID 180 caps 3RF Coding Level of Care Code Est Pt Level 5 (97923) Diagnoses Rheumatoid arthritis involving multiple sites with positive rheumatoid factor M05.79 Rheumatoid arthritis location: multiple sites Rheumatoid factor presence: with rheumatoid factor Type 2 diabetes mellitus with hyperglycemia, unspecified whether technician terminal and repeater insulin use Diabetes mellitus complication status: with hyperglycemia Diabetes mellitus residential insulin use: unspecified technician terminal and repeater insulin use status Diabetes mellitus type: type 2 Erythrocytosis D75.1 Time Spent (min) 55
[2023-11-07 15:36] VITALS: BP 108/68; PULSE 70; O2SAT 90; BMI 36.0
== END 2023-11-07 16:27 | disposition home or self-care (01) ==
PROVIDERS: PCP Internal Medicine; Visit Provider Internal Medicine
DX: M05.79 Rheumatoid arthritis with rheumatoid factor of multiple sites without organ or systems involvement (principal); E11.65 Type 2 diabetes mellitus with hyperglycemia; D75.1 Secondary polycythemia

== ENCOUNTER → 2023-11-07 15:03 | Outpatient (BNVA) | payer OTHER, SELFPAY | PROVIDERS: PCP Internal Medicine; Visit Provider Internal Medicine ==

== ENCOUNTER 2023-11-21 07:45 | Outpatient (REF) | payer OTHER, SELFPAY ==
[2023-11-21 08:02] LABS: MANUAL DIFF FLAG NO
[2023-11-21 08:11] LABS: Basophils Absolute Auto 0.1 X10*3/uL (0.0-0.2); Basophils Percent Auto 0.8 % (0-2); Eosinophils Absolute Auto 0.6 X10*3/uL (0.0-0.4); Eosinophils Percent Auto 5.2 % (0-4); Hematocrit 47.4 % (37.0-47.0); Hemoglobin 15.6 g/dl (12.0-16.0); Imm Gran Pct Auto 0.8 % (0.0-0.4); Lymphocytes Absolute Auto 2.8 X10*3/uL (1.2-4.9); Lymphocytes Percent Auto 22.6 % (20-40); Mean Corpuscular HGB Conc 32.9 g/dl (31.0-35.0); Mean Corpuscular Hemoglobin 29.3 pg (27.0-33.0); Mean Corpuscular Volume 89.1 fL (80.0-98.0); Mean Platelet Volume 9.3 fL (9.4-12.3); Monocytes Absolute Auto 0.6 X10*3/uL (0.1-1.2); Monocytes Percent Auto 4.9 % (2-11); Neutrophils Absolute Auto 8.2 x10*3/uL (2.0-8.3); Neutrophils Percent Auto 65.7 % (45-73); Platelet Count 272 X10*3/uL (160-400); Red Blood Count 5.32 X10*6/uL (4.20-5.50); Red Cell Distribution Width 13.9 % (11.0-16.0); White Blood Count 12.4 X10*3/uL (4.8-10.8)
[2023-11-21 08:15] LABS: Estimated Average Glucose 189 mg/dL; Hemoglobin A1C 249.4534 umol/L; Hemoglobin A1c % 8.2 % (<6.0); Total Hemoglobin (HGBA1C) 3751.6086 umol/L
[2023-11-21 08:40] LABS: Alanine Aminotransferase 21 U/L (0-31); Albumin Level 3.8 g/dL (3.5-5.0); Alkaline Phosphatase 79 U/L (39-117); Anion Gap 14 (12-20); Aspartate Amino Transferase 22 U/L (5-31); Bilirubin Total 0.3 mg/dL (0.0-1.0); Blood Urea Nitrogen 10 mg/dL (9-16); Calcium 9.8 mg/dL (8.4-10.2); Carbon Dioxide 27 mmol/L (22-29); Chloride 99 mmol/L (96-108); Cholesterol 166 mg/dL (<200); Estimated Glomerular Filt Rate > 60; Glucose Random 228 mg/dL (60-115); HDL Cholesterol 32 mg/dL (>40); LDL Cholesterol Calculated 77 mg/dL (<100); Potassium 4.1 mmol/L (3.3-5.1); Sodium 136 mmol/L (135-145); Total Protein 7.2 g/dL (6.5-8.0); Triglycerides 287 mg/dL (<150)
[2023-11-21 08:41] LABS: Appearance Urine Clear; Color Urine Yellow; Glucose Urine UA Negative (Negative); Leukocyte Esterase Urine Trace (Negative); Nitrite Urine Positive (Negative); Specific Gravity - Urine 1.015 (1.005-1.025); UMIC TRIGGER UACC YES; Urine Blood Negative (Negative); Urine Ketones Negative (Negative); Urine Protein Negative (Neg-Trace)
[2023-11-21 08:44] LABS: Bacteria Urine 4+ (None Seen); Hyaline Casts Urine 0-2 /LPF (0-2); RBC Urine 0-2 /HPF (0-2); UACC Culture Trigger YES; WBC Urine 0-5 /HPF (0-5)
[2023-11-21 08:49] LABS: Syphilis Screen Nonreactive (Nonreactive)
[2023-11-21 08:53] LABS: HBsAGNum1 0.55 S/CO (0.00-0.99); Hepatitis B Surface Antigen Negative (Negative)
[2023-11-21 09:04] LABS: Microalbumin Urine < 5.0 mg/L
[2023-11-21 09:04] LABS: HIV AB/AG Nonreactive (Nonreactive); HIV Num 1 0.04 S/CO (0.00-0.99); ~HepC Num1 0.11 S/CO (0.00-0.79); ~Hepatitis C Antibody Nonreactive (Nonreactive)
== END 2023-11-21 07:46 | disposition home or self-care (01) ==
LOC: HO.LAB 07:45
PROVIDERS: PCP Internal Medicine; Visit Provider Internal Medicine
DX: D47.9 Neoplasm of uncertain behavior of lymphoid, hematopoietic and related tissue, unspecified (principal); K59.00 Constipation, unspecified; R76.8 Other specified abnormal immunological findings in serum; E11.65 Type 2 diabetes mellitus with hyperglycemia; Z20.2 Contact with and (suspected) exposure to infections with a predominantly sexual mode of transmission; Z11.3 Encounter for screening for infections with a predominantly sexual mode of transmission; R30.0 Dysuria
CPT/HCPCS: 80053; 80061; 81001; 82043; 82570; 83036; 85025; 86780; 86803; 87086; 87088; 87186; 87340; 87389

== ENCOUNTER 2023-12-13 07:41 | Outpatient (REF) | payer OTHER, SELFPAY ==
[2023-12-13 07:54] LABS: Appearance Urine Clear; Color Urine Yellow; Glucose Urine UA Negative (Negative); Leukocyte Esterase Urine Negative (Negative); Nitrite Urine Positive (Negative); PH 5.5 (5.0-9.0); Specific Gravity - Urine 1.025 (1.005-1.025); UMIC TRIGGER UACC YES; Urine Blood Negative (Negative); Urine Ketones Negative (Negative); Urine Protein Negative (Neg-Trace)
[2023-12-13 08:00] LABS: Bacteria Urine 4+ (None Seen); Hyaline Casts Urine 0-2 /LPF (0-2); RBC Urine 0-2 /HPF (0-2); UACC Culture Trigger YES; WBC Urine 0-5 /HPF (0-5)
== END 2023-12-13 07:42 | disposition home or self-care (01) ==
LOC: HO.LNP 07:41
PROVIDERS: Visit Provider Internal Medicine
DX: R30.0 Dysuria (principal); E11.9 Type 2 diabetes mellitus without complications
CPT/HCPCS: 81001; 87086; 87088; 87186

== ENCOUNTER 2023-12-16 13:43 | Outpatient (AMB) | payer OTHER, SELFPAY ==
--- NOTE | 2023-12-16 13:59 | A.OFFPC_ITS ---
Vital Signs 12/16/23 14:08 BMI Reason not done Patient refused/unable BP 126/78 Blood Pressure Location Rt brachial Position Sitting Pulse 85 Pulse Source Pulse Oximeter Pulse Oximetry (%) 95 Oxygen Delivery Method Room Air Intake Visit Reasons: follow extended Intake Note: Follow up Allergies atorvastatin [From LIPITOR] Allergy (Severe, Verified 12/16/23 13:59) Difficulty Breathing azithromycin [AZITHROMYCIN] Allergy (Severe, Verified 12/16/23 13:59) Difficulty Breathing mite-Dermatophagoides farinae, vicente [dust mite - [place]] Allergy (Severe, Verified 12/16/23 13:59) Difficulty Breathing sumatriptan [From IMITREX] Allergy (Severe, Verified 12/16/23 13:59) Difficulty Breathing house dust Allergy (Mild, Verified 12/16/23 13:59) Unknown acetaminophen [From TYLENOL] Allergy (Unknown, Verified 12/16/23 13:59) Itching adhesive tape [ADHESIVE TAPE] Allergy (Unknown, Verified 12/16/23 13:59) Rash gentamicin [GENTAMICIN] Allergy (Unknown, Verified 12/16/23 13:59) Rash adalimumab [From Humira] Allergy (Verified 12/16/23 13:59) Rash haloperidol [From HALDOL] Adverse Reaction (Unknown, Verified 12/16/23 13:59) GI Issues ketorolac [From TORADOL] Adverse Reaction (Unknown, Verified 12/16/23 13:59) Muscle cramps prasterone (DHEA) [From DHEA] Adverse Reaction (Unknown, Verified 12/16/23 13:59) Cardiac issues varenicline [From CHANTIX] Adverse Reaction (Unknown, Verified 12/16/23 13:59) Seizure Tobacco use date assessed: 07/03/23 Dental Screening Dental Screen Date: 07/03/23 HPI HPI Comments History of Present Illness Details 63-year-old female pmhx type 2 DM, RA, S jogrens, fibromyalgia, OA, celiac, UC, polycythemia, 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 Had previous peripheral smear concerning for lymphoproliferative disorder ([facility]). Recent smear more reassuring. 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 Per patients she was scheduled for endoscopy/colonoscopy for evaluation however anesthesia wanted this held -she underwent pulmonary work up, cardiac work up. Endocrine: Type 2 diabetes: On humalog, lantus, metformin. A1C 8.1. Also having lows which limits her uptitration without more information from a CGM which is ordered today. GI: History of duodenitis, esophagatis, colitis. Had double endoscopy 2020. Seen in 2022 with GI for possible repeat. Recently prescribed movantik though she reports this gave her opiate withdrawal. Pulm: Diagnosed with COPD. TENISHA on cpap. Following with Dr Nevarez. She has upcoming PFTs CV: HTN on amlodipine. Echo 06/2023. Hyperdynamic EF>70%. Mild pulmonary hypertension ID: Frequent UTI. Underwent mon pubis lift at [facility]. Still frequent UTI though she had stopped her daily prophylaxis. Recent diagnosis of UTI-has not started the antibiotic yet MSK/Rheuma Chronic pain: Multifactorial-RA/Sjogrens/Fibromyalgia/osteoarthrits/neuropathy. MRI 2020 disc desiccation at L5-S1 with annular bulge, disc protrustion, bony facet arthropathy on left L5-s1 impacting lateral aspect of the traversing left S1 nerve root. She repeated MRI in 2023. Was following at rheumatology with Dr Vickers, previously hyperion essbase developer Dr Candelaria in [place]. Was following at pain management at [facility], previous to that Dr Wilkinson. On chronic opiate therapy, HCQ. ROS see HPI PHYSICAL EXAM: GENERAL: Alert and oriented x 3. NAD EYES: EOMI. Anicteric. HENT: Moist mucous membranes. No scleral icterus. No cervical lymphadenopathy. LUNGS: Clear to auscultation bilaterally. CARDIOVASCULAR: Regular rate and rhythm. No murmur. No JVD. ABDOMEN: Soft, non-tender +bs EXTREMITIES: No edema. Non-tender. SKIN: Large lower back upper buttock, mottled bruising/rash. Lateral to the right lip she has an excoriated skin lesion NEUROLOGIC: No focal neurological deficits. CN II-XII grossly intact PSYCHIATRIC: Cooperative. Appropriate mood and affect [facility] Medical History Chronic pain syndrome senior care (current) use of opiate analgesic Osteoporosis Sjogrens syndrome Rheumatoid arthritis Osteoarthritis Chronic, continuous use of opioids GERD (gastroesophageal reflux disease) Hx of difficult intubation Smoker COPD (chronic obstructive pulmonary disease) Asthma Polycythemia Boils Eczema Bursitis Disc degeneration Sleep apnea Diabetes Fibromyalgia Surgical History History of esophagogastroduodenoscopy (EGD) Hx of tonsillectomy History of surgical removal of pilonidal cyst Hx of plastic surgery Hx of hysterectomy Hx of cholecystectomy Hx of appendectomy History of colonoscopy History of bladder suspension procedure History of removal of cyst Family History (Updated 11/07/23 @ 12:53 by Caryl David CMA) Mother Polycythemia TIA (transient ischemic attack) Father Heart attack Other No family history of cancer Social History Household Members: Spouse and Children Housing: House Are you a primary pet care assistant to a significant other at home: No Do you presently have visiting nurse or other home services: No Alcohol intake: never Patient Tobacco Use Status: Current everyday Tobacco user Tobacco use type: Cigarette Cigarette Packs Per Day: 1 Cigarettes Per Day: 20.0 Years Smoked: 46 e-Cigarette/Vaping Use: Never Used Second Hand Smoke Exposure: Yes Advance Directives Date on File: 12/24/19 service: No Current occupational status: retired 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 Cognitive needs: No Hearing needs: No Vision needs: No Questionnaire Thrive Questionnaire Date Thrive assessed: 11/07/23 I am a: Patient What is your living situation today?: I have a steady place to live Within the past 12 months, did the food you bought not last and you didn't have the money to get more?: Never true Within the past 12 months, did you worry whether your food would run out before you got money to buy more?: Never true Do you have trouble paying for medicines?: No Do you have trouble getting transportation to medical appointments?: No Do you have trouble paying your heating and electricity bill?: No Do you have trouble taking care of your child, family member or friend?: No Do you have trouble with day-to-day activities such as bathing, preparing meals, shopping, managing finances, etc.?: I choose not to answer this question Are you currently unemployed and looking for a job?: I choose not to answer this question Are you interested in more education?: I choose not to answer this question Please select the resources that you would like help with: None Currently or been in a relationship where the following occur: I choose not to answer THRIVE Score: 0 BERNARDO-7 AMB Questionnaire BERNARDO-7 Date BERNARDO - 7 assessed: 07/03/23 Source: Developed by Drs. Sumanth Stover, Sun Dan, Pavel Mckenzie and colleagues, with an educational joy from [employer]. Physical exam (Primary Care) Vital Signs: Last Vital Signs Pulse 85 12/16/23 14:08 BP 126/78 12/16/23 14:08 Pulse Ox 95 12/16/23 14:08 Oxygen Delivery Method Room Air 12/16/23 14:08 Tobacco/Smoking Status: Tobacco use Status Tobacco use date assessed 07/03/23 12/16/23 14:14 Patient Tobacco Use Status Current everyday Tobacco 12/16/23 14:14 Tobacco use type Cigarette 12/16/23 14:14 e-Cigarette/Vaping Use Never Used 12/16/23 14:14 Thrive Assessment: Date of Thrive Assessment Date Thrive assessed 11/07/23 12/16/23 14:14 Currently or been in a relationship where the following occur: I choose not to answer Coding Level of Care Code Est Pt Level 5 (72897) Complex EM visit Add On G2211 Diagnoses Recurrent UTI N39.0 Type 2 diabetes mellitus with hyperglycemia, with long-term current use of insulin E11.65; Z79.4 Diabetes mellitus complication status: with hyperglycemia Sezary's disease, 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 She left another urine sample today Resume daily prophylaxis following completion (2) Insulin 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 2 diabetes: Code(s): E11.9 - Type 2 diabetes mellitus without complications; Z79.4 - long term care phlebotomist (current) use of insulin Category: Medical Qualifiers: Diabetes mellitus complication status: with hyperglycemia Qualified Code(s): E11.65 - Type 2 diabetes mellitus with hyperglycemia; Z79.4 - long term care phlebotomist (current) use of insulin Plan: Uncontrolled. Will refer to endocrinology for evaluation, diabetic education CGM (3) Sezary disease: Code(s): C84.10 - Sezary disease, unspecified site Category: Medical Qualifiers: Lymphoma site: unspecified region Qualified Code(s): C84.10 - Sezary disease, unspecified site Plan: Rash with history of abnormal peripheral smear-will CC to her speech therapist Orders: Orders Urine Culture 12/16/23 R30.0 - Dysuria UA w Microscopic 12/16/23 R30.0 - Dysuria Urine Culture 3 Days N39.0 - Urinary tract infection, site not specified Referrals Diabetes Education Referral E11.9 - Type 2 diabetes mellitus without complications, Z79.4 - senior care (current) use of insulin Endocrinology Referral E11.65 - Type 2 diabetes mellitus with hyperglycemia, E11.9 - Type 2 diabetes mellitus without complications, Z79.4 - long term care phlebotomist (current) use of insulin Medications: New FreeStyle Mag 3 Plus Sensor (blood-glucose sensor) As directed 6 ea 3RF NS E11.65 - Type 2 diabetes mellitus with hyperglycemia, E11.9 - Type 2 diabetes mellitus without complications, Z79.4 - senior care (current) use of insulin FreeStyle Mag 3 [place] (blood-glucose meter,continuous) As directed 1 ea 0RF NS E11.9 - Type 2 diabetes mellitus without complications, Z79.4 - senior care (current) use of insulin fluorouracil 5% 1 appl topical BID 40 grams 0RF 2 weeks Changed From oxycodone 10 mg PO TID 28 days PRN 84 tabs 0RF pain To oxycodone 10 mg PO QID 28 days PRN 112 tabs 0RF pain Refilled cephalexin 500 mg PO QID 28 caps 3RF 7 days morphine ER 15 mg PO Q12H 56 tabs 0RF 28 days
[2023-12-16 14:08] VITALS: BP 126/78; PULSE 85; O2SAT 95
== END 2023-12-16 15:46 | disposition home or self-care (01) ==
LOC: HO.HMCFM 13:44
PROVIDERS: PCP Internal Medicine; Visit Provider Internal Medicine
DX: N39.0 Urinary tract infection, site not specified (principal); E11.65 Type 2 diabetes mellitus with hyperglycemia; Z79.4 Long term (current) use of insulin; C84.10 Sezary disease, unspecified site

== ENCOUNTER → 2023-12-16 13:43 | Outpatient (BNVA) | payer OTHER, SELFPAY | PROVIDERS: PCP Internal Medicine; Visit Provider Internal Medicine ==

== ENCOUNTER 2023-12-16 14:32 | Outpatient (REF) | payer OTHER, SELFPAY ==
[2023-12-16 18:11] LABS: Appearance Urine Clear; Color Urine Yellow; Glucose Urine UA Negative (Negative); Leukocyte Esterase Urine Negative (Negative); Nitrite Urine Positive (Negative); PH 5.5 (5.0-9.0); Specific Gravity - Urine 1.015 (1.005-1.025); UMIC TRIGGER UA YES; UMIC TRIGGER UACC YES; Urine Blood Negative (Negative); Urine Ketones Negative (Negative); Urine Protein Negative (Neg-Trace)
[2023-12-16 18:38] LABS: Bacteria Urine 4+ (None Seen); Hyaline Casts Urine 0-2 /LPF (0-2); RBC Urine 0-2 /HPF (0-2); UACC Culture Trigger YES; WBC Urine 0-5 /HPF (0-5)
== END 2023-12-16 14:33 | disposition home or self-care (01) ==
LOC: HO.WFDLDS 14:32
PROVIDERS: Visit Provider Internal Medicine
DX: N39.0 Urinary tract infection, site not specified (principal); E11.65 Type 2 diabetes mellitus with hyperglycemia; C84.10 Sezary disease, unspecified site; Z79.4 Long term (current) use of insulin; Z79.891 Long term (current) use of opiate analgesic
CPT/HCPCS: 81001; 87086; 87088; 87186

== ENCOUNTER 2023-12-24 14:59 | Outpatient (REF) | payer OTHER, SELFPAY | END 2023-12-24 15:00 | disposition home or self-care (01) | LOC: HO.BBR 14:59 | PROVIDERS: PCP Internal Medicine; Visit Provider Internal Medicine Medical Oncology | DX: D75.1 Secondary polycythemia (principal) | CPT/HCPCS: 85014; 85018; 99195 ==

== ENCOUNTER 2023-12-24 15:33 | Outpatient (REF) | payer OTHER, SELFPAY ==
[2023-12-24 15:43] LABS: Appearance Urine Clear; Color Urine Dark Yellow; Glucose Urine UA Negative (Negative); Leukocyte Esterase Urine Trace (Negative); Nitrite Urine Positive (Negative); UMIC TRIGGER UACC YES; Urine Blood Negative (Negative); Urine Ketones Negative (Negative); Urine Protein Negative (Neg-Trace)
[2023-12-24 15:54] LABS: Bacteria Urine None Seen (None Seen); Hyaline Casts Urine 0-2 /LPF (0-2); RBC Urine 0-2 /HPF (0-2); Squamous Epithelial Cell Urine 0-2 /HPF (0-2); UACC Culture Trigger YES; WBC Urine 0-5 /HPF (0-5)
== END 2023-12-24 15:34 | disposition home or self-care (01) ==
LOC: HO.LNP 15:33
PROVIDERS: Visit Provider Internal Medicine
DX: N39.0 Urinary tract infection, site not specified (principal); B96.20 Unspecified Escherichia coli [E. coli] as the cause of diseases classified elsewhere
CPT/HCPCS: 81001; 87086; 87088; 87186

== ENCOUNTER 2024-01-19 01:51 | Emergency (ER) | payer OTHER, SELFPAY ==
[2024-01-19 01:57] VITALS: BP 149/56; PULSE 93; RESP 20; TEMP 37.3; O2SAT 91; BMI 34.8
--- NOTE | 2024-01-19 02:18 | ED.SKABFB ---
HPI - Skin/Abscess/Foreign Bdy General Chief complaint: Skin/Abscess/Foreign Body Stated complaint: staff infection Time Seen by Provider: 01/19/24 02:09 Source: patient Mode of arrival: ambulatory Limitations: no limitations History of Present Illness ED Provider: Dr. Megan Rodriguez HPI narrative: Patient comes to the emergency room complaining of 2 patches on both sides of the chin. Patient states it has been present for about 2-1/2 weeks. It started out with plucking hairs, then severe erythema accompanied by crusting. Patient's PCP started her on doxycycline. Patient states that the facial patches have been crusting more and becoming more painful. Patient denies fever or chills. Related Data Home Medications ?Medication ?Instructions ?Recorded ?Confirmed aspirin 325 mg tablet 325 mg PO 1230 09/27/20 03/24/23 hydroxychloroquine 200 mg tablet 200 mg PO DAILY 09/27/20 03/24/23 loratadine 10 mg tablet 10 mg PO 0030 09/27/20 03/24/23 diazepam 2 mg tablet 2 mg PO BEDTIME PRN Anxiety 11/21/20 03/24/23 baclofen 10 mg tablet 1 tab PO TID 07/27/21 03/24/23 hyoscyamine sulfate 0.125 mg tablet 0.125 mg PO DAILY 07/03/23 insulin lispro 100 unit/mL 25 unit subcut QIDWMHS 07/03/23 subcutaneous pen (Humalog KwikPen (U-100) Insulin) umeclidinium 62.5 mcg-vilanterol 1 inh inhalation DAILY 07/03/23 25 mcg/actuation powdr for inhalation (Anoro Ellipta) insulin degludec 100 unit/mL (3 unit subcut 11/03/23 mL) subcutaneous pen (Tresiba FlexTouch U-100 insulin) nystatin 100,000 unit/mL oral PO 11/03/23 suspension ondansetron 8 mg disintegrating mg PO 11/03/23 tablet Previous Rx's ?Medication ?Instructions ?Recorded naloxone 4 mg/actuation nasal spray 4 mg intranasal Q2M PRN opioid 08/27/21 overdose #2 ea benzonatate 200 mg capsule 200 mg PO TID PRN cough #30 caps 03/06/23 amlodipine 10 mg tablet 10 mg PO DAILY 90 days #90 tabs 05/16/24 losartan 25 mg tablet 25 mg PO DAILY 90 days #90 tabs 07/03/23 diclofenac sodium 1 % topical gel 2 g topical QID #100 grams 07/15/23 blood-glucose meter #1 ea 08/25/23 montelukast 10 mg tablet 10 mg PO DAILY 90 days #90 tabs 08/25/23 albuterol sulfate 90 mcg/actuation 2 puff PO Q6H PRN wheezing #8.5 08/29/23 aerosol inhaler grams fluconazole 150 mg tablet 150 mg PO DAILY #7 tabs 08/29/23 mupirocin 2 % topical ointment 1 appl topical BID #22 grams 09/16/23 pramipexole 0.25 mg tablet 1 mg (4 x 0.25 mg) PO BEDTIME #90 09/16/23 tabs nitrofurantoin macrocrystal 100 mg 100 mg PO BID #14 caps 10/22/23 capsule cyclobenzaprine 5 mg tablet 5 mg PO BID PRN Pain 90 days #180 10/29/23 tabs pregabalin 75 mg capsule (Lyrica) 75 mg PO BID #180 caps 11/07/23 diclofenac sodium 75 mg 75 mg PO BID PRN Pain #180 tabs 11/21/23 tablet,delayed release clobetasol 0.025 % topical cream 1 appl topical DAILY #100 grams 12/12/23 (Impoyz) magnesium oxide 400 mg (241.3 mg 400 mg PO BID #90 tabs 12/12/23 magnesium) tablet pantoprazole 40 mg tablet,delayed 40 mg PO BID #60 tabs 12/15/23 release FreeStyle Mag 3 Plus Sensor #6 ea 12/16/23 (blood-glucose sensor) FreeStyle Mag 3 [place] #1 ea 12/16/23 (blood-glucose meter,continuous) cephalexin 500 mg capsule 500 mg PO QID 7 days #28 caps 12/16/23 fluorouracil 5 % topical cream 1 appl topical BID 2 weeks #40 12/16/23 grams morphine 15 mg tablet,extended 15 mg PO Q8H 28 days #84 tabs 12/22/23 release metformin 1,000 mg tablet 1,000 mg PO BID 90 days #180 tabs 12/30/23 jpzovvf-flztqxbdkz-IHY-caffeine 30 1 cap PO QID PRN headache 28 days 12/31/23 mg-50 mg-325 mg-40 mg capsule #28 caps doxycycline monohydrate 100 mg 100 mg PO BID 10 days #20 tabs 01/10/24 tablet oxycodone 10 mg tablet 10 mg PO QID PRN pain 28 days #112 01/12/24 tabs clotrimazole 1 % topical cream 1 appl topical TID #45 grams 01/19/24 (Lotrimin AF (clotrimazole)) colloidal oatmeal 1 % topical 1 appl topical TID #226 grams 01/19/24 cream (Eucerin Eczema Relief) sulfamethoxazole 400 1 tab PO BID #10 tabs 01/19/24 mg-trimethoprim 80 mg tablet (Bactrim) Allergies Allergy/AdvReac Type Severity Reaction Status Date / Time atorvastatin [From LIPITOR] Allergy Severe Difficulty Verified 01/19/24 02:02 Breathing azithromycin [AZITHROMYCIN] Allergy Severe Difficulty Verified 01/19/24 02:02 Breathing mite-Dermatophagoides Allergy Severe Difficulty Verified 01/19/24 02:02 farinae, vicente Breathing [dust mite - [place]] sumatriptan [From IMITREX] Allergy Severe Difficulty Verified 01/19/24 02:02 Breathing house dust Allergy Mild Unknown Verified 01/19/24 02:02 acetaminophen [From TYLENOL] Allergy Unknown Itching Verified 01/19/24 02:02 adhesive tape [ADHESIVE TAPE] Allergy Unknown Rash Verified 01/19/24 02:02 gentamicin [GENTAMICIN] Allergy Unknown Rash Verified 01/19/24 02:02 adalimumab [From Humira] Allergy Rash Verified 01/19/24 02:02 haloperidol [From HALDOL] AdvReac Unknown GI Issues Verified 01/19/24 02:02 ketorolac [From TORADOL] AdvReac Unknown Muscle Verified 01/19/24 02:02 cramps prasterone (DHEA) [From DHEA] AdvReac Unknown Cardiac Verified 01/19/24 02:02 issues varenicline [From CHANTIX] AdvReac Unknown Seizure Verified 01/19/24 02:02 Review of Systems Review of Systems: Constitutional : No Weight loss, No Fever, No Chills, No Night Sweats, No Fatigue, No Malaise ENT/Mouth : No Hearing loss, No Ear Pain, No Nasal Congestion, No Sinus Pain, No Hoarseness, No sore throat, No Rhinorrhea, No Swallowing Difficulty Eyes: No Eye Pain, No Swelling, No Redness, No Foreign Body, No Discharge, No Vision Changes Cardiovascular : No Chest Pain, No SOB, No Dyspnea on Exertion, No Orthopnea, No Edema, No Palpitations Respiratory : No Cough, No Sputum, No Wheezing, No Smoke Exposure, No Dyspnea Gastrointestinal : No Nausea, No Vomiting, No Diarrhea, No Constipation, No abdominal Pain, No Hematochezia, No Melena Genitourinary : no irregular bleeding, No Dysuria, No Urinary Frequency, No Hematuria, No Urinary Incontinence, No Urgency, No Flank Pain, No Urinary Flow Changes, No Hesitancy Musculoskeletal : No joint pain, No Myalgias, No Joint Swelling Skin : Complaining of circular patches around the chin area Neuro : No Weakness, No Numbness, No Paresthesias, No Loss of Consciousness, No Dizziness, No Headache Psych : No Anxiety/Panic, No Depression, No SI/HI/AH/VH, No Social Issues, Heme/Lymph: No Bruising, No Bleeding,No Lymphadenopathy Endocrine : No Polyuria, No Polydipsia, No Temperature Intolerance PMFSH Past Medical History Medical History Chronic pain syndrome 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 Osteoporosis Sjogrens syndrome Rheumatoid arthritis Osteoarthritis Chronic, continuous use of opioids GERD (gastroesophageal reflux disease) Hx of difficult intubation Smoker COPD (chronic obstructive pulmonary disease) Asthma Polycythemia Boils Eczema Bursitis Disc degeneration Sleep apnea Diabetes Fibromyalgia Surgical History History of esophagogastroduodenoscopy (EGD) Hx of tonsillectomy History of surgical removal of pilonidal cyst Hx of plastic surgery Hx of hysterectomy Hx of cholecystectomy Hx of appendectomy History of colonoscopy History of bladder suspension procedure History of removal of cyst Family History Family History (Updated 11/07/23 @ 12:53 by Caryl David CMA) Mother Polycythemia TIA (transient ischemic attack) Father Heart attack Other No family history of cancer Social History Social History Household Members: Spouse and Children Housing: House Are you a primary animal caregiver to a significant other at home: No Do you presently have visiting nurse or other home services: No Alcohol intake: never Patient Tobacco Use Status: Current everyday Tobacco user Tobacco use type: Cigarette Cigarette Packs Per Day: 1 Cigarettes Per Day: 20.0 Years Smoked: 46 Smoked in Last 30 Days: Yes e-Cigarette/Vaping Use: Never Used Second Hand Smoke Exposure: Yes Use of substances other than those prescribed or required for medical reasons: No Advance Directives: Yes Advance Directives on File: Yes Advance Directives Date on File: 12/24/19 service: No Current occupational status: retired 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 Cognitive needs: No Hearing needs: No Vision needs: No Physical Exam Vital Signs: Vital Signs: Last Vital Signs Temp 99.1 F 01/19/24 01:57 Pulse 93 01/19/24 01:57 Resp 20 01/19/24 01:57 BP 149/56 H 01/19/24 01:57 Pulse Ox 91 L 01/19/24 01:57 O2 Del Method Room Air 01/19/24 01:57 BMI result Body Mass Index 34.8 Const: Other: Appearance: Alert. Oriented X3. No acute distress. Eyes: Pupils equal, round and reactive to light. ENT: Pharynx normal. Neck: Normal inspection. Neck supple. No lymph nodes noted. No crepitus CVS: Normal heart rate and rhythm. Pulses normal. Normal S1 and S2 Respiratory: No respiratory distress. Breath sounds normal. No Wheezing. No rales Abdomen: Soft and nontender. No rigidity. No distention. Skin: Skin warm and dry. Normal skin color. Normal skin turgor. There are bilateral erythematous and crusted over patches in the face, both sides of the bustillo. According to the patient, they burn quite a bit Extremities: No lower extremity edema. No Lacerations. No Rash Neuro: Oriented X 3. No motor deficit. No sensory deficit. Moving all extremities. No slurred speech. CN 2 through 12 grossly intact Psych: calm, cooperative, normal affect Course Course Course Narrative: Patient states that she did not improved with doxycycline. Labs pending Medical Decision Making Medical Decision Making MDM Narrative: Interpretation of labs. Patient's hematology and chemistry are at baseline Patient has 2 large patches in both sides of the chin. It seems to be borderline infected versus fungal versus dermatitis? I discussed with the patient that she will eventually likely need a biopsy. Patient was given the 1st dose of Bactrim in the ED. -patient instructed to use eczema cream along with antifungal. Differential Diagnosis Differential Diagnoses: The differential diagnosis associated with the presentation includes (Psoriasis, bacterial infection, fungal infection, dermatitis, ringworm, nummular eczema) Admission/Observation Consideration of admission/observation: Escalation of care including admission/observation considered Lab Data MDM Lab Attestation statement: I reviewed the patient's lab results. 01/19/24 03:27 01/19/24 03:27 Labs: Lab Results 01/19/24 Range/Units 03:27 WBC 13.3 H (4.8-10.8) X10*3/uL RBC 5.47 (4.20-5.50) X10*6/uL Hgb 16.2 H (12.0-16.0) g/dl Hct 49.3 H (37.0-47.0) % MCV 90.1 (80.0-98.0) fL MCH 29.6 (27.0-33.0) pg MCHC 32.9 (31.0-35.0) g/dl RDW 14.7 (11.0-16.0) % Plt Count 236 (160-400) X10*3/uL MPV 9.4 (9.4-12.3) fL Immature Gran % (Auto) 0.8 H (0.0-0.4) % Neut % (Auto) 72.2 (45-73) % Lymph % (Auto) 16.4 L (20-40) % Preston % (Auto) 6.6 (2-11) % Eos % (Auto) 3.2 (0-4) % Baso % (Auto) 0.8 (0-2) % Lymph # (Auto) 2.2 (1.2-4.9) X10*3/uL Preston # (Auto) 0.9 (0.1-1.2) X10*3/uL Eos # (Auto) 0.4 (0.0-0.4) X10*3/uL Baso # (Auto) 0.1 (0.0-0.2) X10*3/uL Abs Immat Gran (auto) 0.10 H (0.00-0.03) X10*3/uL Absolute Neuts (auto) 9.6 H (2.0-8.3) x10*3/uL Absolute Nucleated RBC 0.000 (0.0-0.012) X10*3/uL Nucleated RBC % (auto) 0.0 (0.0-0.2) /100WBC Sodium 136 (135-145) mmol/L Potassium 4.7 (3.3-5.1) mmol/L Chloride 99 (96-108) mmol/L Carbon Dioxide 29 (22-29) mmol/L Anion Gap 13 (12-20) BUN 16 (9-16) mg/dL Creatinine 0.77 (0.5-1.4) mg/dL Estim Creat Clear Calc 83.2 Estimated GFR > 60 Random Glucose 199 H (60-115) mg/dL Calcium 9.5 (8.4-10.2) mg/dL Total Bilirubin 0.2 (0.0-1.0) mg/dL Direct Bilirubin < 0.2 (0.0-0.5) mg/dL AST 22 (5-31) U/L ALT 21 (0-31) U/L Alkaline Phosphatase 88 (39-117) U/L Total Protein 7.3 (6.5-8.0) g/dL Albumin 3.7 (3.5-5.0) g/dL Discharge Plan Discharge Clinical Impression: Discoid rash Patient Disposition: Home, Self-Care Instructions: Acute Rash (ED) Additional Instructions: Please follow-up with your primary care physician tomorrow. If you have any worsening or new symptoms, please return to the emergency room or call 911 Prescriptions: New Eucerin Eczema Relief 1 % cream 1 appl topical TID Qty: 226 0RF clotrimazole [Lotrimin AF (clotrimazole)] 1 % cream 1 appl topical TID Qty: 45 0RF sulfamethoxazole-trimethoprim [Bactrim] 400-80 mg tablet 1 tab PO BID Qty: 10 0RF No Action diclofenac sodium 1 % gel 2 g topical QID Qty: 100 1RF Rx Instructions: apply to single elbow, wrist or hand; for hand includes palm/fingers/back of hand montelukast 10 mg tablet 10 mg PO DAILY 90 Days Qty: 90 3RF (DME) blood-glucose meter Kit See Rx Instructions .Route Qty: 1 0RF Rx Instructions: 4 times daily to check blood glucose albuterol sulfate 90 mcg/actuation HFA aerosol inhaler 2 puff PO Q6H PRN (Reason: wheezing) Qty: 8.5 3RF fluconazole 150 mg tablet 150 mg PO DAILY Qty: 7 1RF mupirocin 2 % ointment 1 appl topical BID Qty: 22 3RF pramipexole 0.25 mg tablet 1 mg PO BEDTIME Qty: 90 3RF Rx Instructions: Take up to 4 tab once daily nitrofurantoin macrocrystal 100 mg capsule 100 mg PO BID Qty: 14 1RF Rx Instructions: must administer with a meal/food cyclobenzaprine 5 mg tablet 5 mg PO BID PRN (Reason: Pain) 90 Days Qty: 180 3RF diclofenac sodium 75 mg tablet,delayed release (DR/EC) 75 mg PO BID PRN (Reason: Pain) Qty: 180 1RF Impoyz 0.025 % cream 1 appl topical DAILY Qty: 100 3RF magnesium oxide 400 mg (241.3 mg magnesium) tablet 400 mg PO BID Qty: 90 3RF pantoprazole 40 mg tablet,delayed release (DR/EC) 40 mg PO BID Qty: 60 3RF morphine 15 mg tablet extended release 15 mg PO Q8H 28 Days Qty: 84 0RF metformin 1,000 mg tablet 1,000 mg PO BID 90 Days Qty: 180 3RF fhfpage-djscgwqhta-CWH-caff [id number] mg capsule 1 cap PO QID PRN (Reason: headache) 28 Days Qty: 28 0RF doxycycline monohydrate 100 mg tablet 100 mg PO BID 10 Days Qty: 20 0RF oxycodone 10 mg tablet 10 mg PO QID PRN (Reason: pain) 28 Days Qty: 112 0RF baclofen 10 mg tablet 1 tab PO TID aspirin 325 mg Tablet 325 mg PO 1230 hydroxychloroquine 200 mg Tablet 200 mg PO DAILY loratadine 10 mg Tablet 10 mg PO 0030 insulin lispro [Humalog KwikPen Insulin] 100 unit/mL insulin pen 25 unit SUBCUT QIDWMHS benzonatate 200 mg capsule 200 mg PO TID PRN (Reason: cough) Qty: 30 0RF losartan 25 mg tablet 25 mg PO DAILY 90 Days Qty: 90 3RF amlodipine 10 mg tablet 10 mg PO DAILY 90 Days Qty: 90 3RF hyoscyamine sulfate 0.125 mg tablet 0.125 mg PO DAILY Anoro Ellipta 62.5-25 mcg/actuation blister with device 1 inh inhalation DAILY diazepam 2 mg tablet 2 mg PO BEDTIME PRN (Reason: Anxiety) naloxone 4 mg/actuation spray,non-aerosol 4 mg intranasal Q2M PRN (Reason: opioid overdose) Qty: 2 0RF Rx Instructions: spray 1 dose into ONE nostril; alternate nostrils w each dose until help arrives ondansetron 8 mg tablet,disintegrating PO nystatin 100,000 unit/mL suspension PO insulin degludec [Tresiba FlexTouch U-100] 100 unit/mL (3 mL) insulin pen subcut pregabalin [Lyrica] 75 mg capsule 75 mg PO BID Qty: 180 3RF cephalexin 500 mg capsule 500 mg PO QID 7 Days Qty: 28 3RF (DME) FreeStyle Mag 3 Plus Sensor Device See Rx Instructions .Route Qty: 6 3RF Rx Instructions: As directed (DME) FreeStyle Mag 3 [place] Misc See Rx Instructions .Route Qty: 1 0RF Rx Instructions: As directed fluorouracil 5 % cream 1 appl topical BID 14 Days Qty: 40 0RF Print Language: Citizen [place]
[2024-01-19 03:33] LABS: Basophils Absolute Auto 0.1 X10*3/uL (0.0-0.2); Basophils Percent Auto 0.8 % (0-2); Eosinophils Absolute Auto 0.4 X10*3/uL (0.0-0.4); Eosinophils Percent Auto 3.2 % (0-4); Hematocrit 49.3 % (37.0-47.0); Hemoglobin 16.2 g/dl (12.0-16.0); Imm Gran Pct Auto 0.8 % (0.0-0.4); Lymphocytes Absolute Auto 2.2 X10*3/uL (1.2-4.9); Lymphocytes Percent Auto 16.4 % (20-40); MANUAL DIFF FLAG NO; Mean Corpuscular HGB Conc 32.9 g/dl (31.0-35.0); Mean Corpuscular Hemoglobin 29.6 pg (27.0-33.0); Mean Corpuscular Volume 90.1 fL (80.0-98.0); Mean Platelet Volume 9.4 fL (9.4-12.3); Monocytes Absolute Auto 0.9 X10*3/uL (0.1-1.2); Monocytes Percent Auto 6.6 % (2-11); Neutrophils Absolute Auto 9.6 x10*3/uL (2.0-8.3); Neutrophils Percent Auto 72.2 % (45-73); Platelet Count 236 X10*3/uL (160-400); Red Blood Count 5.47 X10*6/uL (4.20-5.50); Red Cell Distribution Width 14.7 % (11.0-16.0); White Blood Count 13.3 X10*3/uL (4.8-10.8)
[2024-01-19 03:47] LABS: Alanine Aminotransferase 21 U/L (0-31); Albumin Level 3.7 g/dL (3.5-5.0); Alkaline Phosphatase 88 U/L (39-117); Anion Gap 13 (12-20); Aspartate Amino Transferase 22 U/L (5-31); Bilirubin Direct < 0.2 mg/dL (0.0-0.5); Bilirubin Total 0.2 mg/dL (0.0-1.0); Blood Urea Nitrogen 16 mg/dL (9-16); Calcium 9.5 mg/dL (8.4-10.2); Carbon Dioxide 29 mmol/L (22-29); Chloride 99 mmol/L (96-108); Creatinine Clr Calc Pharmacy 83.2; Estimated Glomerular Filt Rate > 60; Glucose Random 199 mg/dL (60-115); Potassium 4.7 mmol/L (3.3-5.1); Sodium 136 mmol/L (135-145); Total Protein 7.3 g/dL (6.5-8.0)
[2024-01-19] MEDS: Sulfamethox/Trimeth 800/160 TABLET 1 TAB PO (04:18)
[2024-01-19 04:24] VITALS: BP 123/58; PULSE 85; RESP 16; TEMP 37.1; O2SAT 91
--- NOTE | 2024-01-19 04:25 | PC.NURSE ---
Medicated per Mar, Reviewed discharge instructions with pt, pt verbalized understanding, no sign of distress upon discharge
[2024-01-19 04:27] VITALS: BP 123/58; PULSE 85; RESP 16; TEMP 37.1; O2SAT 91
== END 2024-01-19 04:27 | disposition home or self-care (01) ==
PROVIDERS: Emergency Provider Emergency Medicine; PCP Internal Medicine
DX: R21 Rash and other nonspecific skin eruption (principal); E11.9 Type 2 diabetes mellitus without complications; J45.909 Unspecified asthma, uncomplicated; F17.210 Nicotine dependence, cigarettes, uncomplicated; Z79.4 Long term (current) use of insulin; Z79.899 Other long term (current) drug therapy
CPT/HCPCS: 36415; 80048; 80076; 85025; 87040; 99283; 99284

== ENCOUNTER 2024-02-13 15:34 | Outpatient (AMB) | payer OTHER, SELFPAY ==
--- NOTE | 2024-02-13 15:36 | A.OFFPC_ITS ---
Vital Signs 02/13/24 15:40 Height 5 ft 4 in BMI Reason not done Patient refused/unable BP 132/76 Blood Pressure Location Lt brachial Position Sitting Respiration 14 Pulse 86 Pulse Source Pulse Oximeter Pulse Oximetry (%) 90 L Oxygen Delivery Method Room Air Intake Visit Reasons: Follow up Health portal Intake Note: Patient is complaining of having breathing issues and headache. Patient also falling asleep easily. 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 Allergies atorvastatin [From LIPITOR] Allergy (Severe, Verified 02/13/24 17:06) Difficulty Breathing azithromycin [AZITHROMYCIN] Allergy (Severe, Verified 02/13/24 17:06) Difficulty Breathing mite-Dermatophagoides farinae, vicente [dust mite - [place]] Allergy (Sev ere, Verified 02/13/24 17:06) Difficulty Breathing sumatriptan [From IMITREX] Allergy (Severe, Verified 02/13/24 17:06) Difficulty Breathing house dust Allergy (Mild, Verified 02/13/24 17:06) Unknown acetaminophen [From TYLENOL] Allergy (Unknown, Verified 02/13/24 17:06) Itching adhesive tape [ADHESIVE TAPE] Allergy (Unknown, Verified 02/13/24 17:06) Rash gentamicin [GENTAMICIN] Allergy (Unknown, Verified 02/13/24 17:06) Rash adalimumab [From Humira] Allergy (Verified 02/13/24 17:06) Rash erythromycin base Allergy (Verified 02/13/24 17:06) Unknown haloperidol [From HALDOL] Adverse Reaction (Unknown, Verified 02/13/24 17:06) GI Issues ketorolac [From TORADOL] Adverse Reaction (Unknown, Verified 02/13/24 17:06) Muscle cramps prasterone (DHEA) [From DHEA] Adverse Reaction (Unknown, Verified 02/13/24 17:06) Cardiac issues varenicline [From CHANTIX] Adverse Reaction (Unknown, Verified 02/13/24 17:06) Seizure Tobacco use date assessed: 07/03/23 Dental Screening Dental Screen Date: 07/03/23 HPI HPI Comments History of Present Illness Details 63-year-old female pmhx type 2 DM, RA, S jogrens, fibromyalgia, OA, celiac, UC, polycythemia, likely NHL, presenting for for exhaustion, shortness of breath, chest pain Reports for the past week has been having lower than usual oxygen saturations, shortness of breath, fatigue and some episodes of chest pain. Denies increased cough, fevers. Denies LE swelling though left lower leg swelling is present. Her oxygen sats today in 80s in the office, fluctuating 83-93%. EKG is unchanged from prior Heme/Onc: Patient follows for polycythemia. Had previous peripheral smear concerning for lymphoproliferative disorder ([facility]). Recent smear more reassuring. 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 Per patients she was scheduled for endoscopy/colonoscopy for evaluation however anesthesia wanted this held -she underwent pulmonary work up, cardiac work up. Endocrine: Type 2 diabetes: On humalog, tresiba, metformin. A1C 8.2. Also having lows which limits her uptitration without more information from a CGM which is ordered today. GI: History of duodenitis, esophagatis, colitis. Had double endoscopy 2020. Seen in 2022 with GI for possible repeat. Recently prescribed movantik though she reports this gave her opiate withdrawal. Pulm: Diagnosed with COPD. TENISHA on cpap. Following with Dr Nevarez. CV: HTN on amlodipine. Echo 06/2023. Hyperdynamic EF>70%. Mild pulmonary hypertension ID: Frequent UTI. [facility] Still frequent UTI though she had stopped her daily prophylaxis. MSK/Rheuma Chronic pain: Multifactorial-RA/Sjogrens/Fibromyalgia/osteoarthrits/neuropathy. MRI 2020 disc desiccation at L5-S1 with annular bulge, disc protrustion, bony facet arthropathy on left L5-s1 impacting lateral aspect of the traversing left S1 nerve root. She repeated MRI in 2023. Was following at rheumatology with Dr Vickers, previously design lead Dr Candelaria in [place]. Was following at pain management at [facility] [place], previous to that Dr Wilkinson. On chronic opiate therapy, HCQ. ROS see HPI PHYSICAL EXAM: GENERAL: Alert and oriented x 3. NAD. fatigued EYES: EOMI. Anicteric. HENT: Moist mucous membranes. No scleral icterus. No cervical lymphadenopathy. LUNGS: Clear to auscultation CARDIOVASCULAR: Regular rate and rhythm. ABDOMEN: Soft, non-tender +bs EXTREMITIES: Left leg swelling. SKIN: warm NEUROLOGIC: No focal neurological deficits. CN II-XII grossly intact PSYCHIATRIC: Cooperative. Appropriate mood and affect [facility] Medical History Chronic pain syndrome intermediate (current) use of opiate analgesic Osteoporosis Sjogrens syndrome Rheumatoid arthritis Osteoarthritis Chronic, continuous use of opioids GERD (gastroesophageal reflux disease) Hx of difficult intubation Smoker COPD (chronic obstructive pulmonary disease) Asthma Polycythemia Boils Eczema Bursitis Disc degeneration Sleep apnea Diabetes Fibromyalgia Surgical History History of esophagogastroduodenoscopy (EGD) Hx of tonsillectomy History of surgical removal of pilonidal cyst Hx of plastic surgery Hx of hysterectomy Hx of cholecystectomy Hx of appendectomy History of colonoscopy History of bladder suspension procedure History of removal of cyst Family History (Updated 11/07/23 @ 12:53 by Caryl David CMA) Mother Polycythemia TIA (transient ischemic attack) Father Heart attack Other No family history of cancer Social History Household Members: Spouse and Children Housing: House Are you a primary daytime caregiver to a significant other at home: No Do you presently have visiting nurse or other home services: No Alcohol intake: never Patient Tobacco Use Status: Current everyday Tobacco user Tobacco use type: Cigarette Cigarette Packs Per Day: 1 Cigarettes Per Day: 20.0 Years Smoked: 46 e-Cigarette/Vaping Use: Never Used Second Hand Smoke Exposure: Yes Advance Directives Date on File: 12/24/19 service: No Current occupational status: retired 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 Cognitive needs: No Hearing needs: No Vision needs: No Questionnaire PHQ-9 Over the last 2 weeks, how often have you been bothered by any of the following problems? 40432 - PHQ-9 Billing: Patient declined-do not bill Source: Developed by Drs. Sumanth Stover, Sun Dan, Pavel Mckenzie and colleagues, with an educational jyo from [employer]. Thrive Questionnaire Date Thrive assessed: 02/13/24 I am a: Patient What is your living situation today?: I have a steady place to live Within the past 12 months, did the food you bought not last and you didn't have the money to get more?: Never true Within the past 12 months, did you worry whether your food would run out before you got money to buy more?: Never true Do you have trouble paying for medicines?: No Do you have trouble getting transportation to medical appointments?: No Do you have trouble paying your heating and electricity bill?: No Do you have trouble taking care of your child, family member or friend?: No Do you have trouble with day-to-day activities such as bathing, preparing meals, shopping, managing finances, etc.?: I choose not to answer this question Are you currently unemployed and looking for a job?: I choose not to answer this question Are you interested in more education?: I choose not to answer this question Please select the resources that you would like help with: None Currently or been in a relationship where the following occur: I choose not to answer THRIVE Score: 0 BERNARDO-7 AMB Questionnaire BERNARDO-7 Date BERNARDO - 7 assessed: 02/13/24 Source: Developed by Drs. Sumanth Stover, Sun Dan, Pavel Mckenzie and colleagues, with an educational joy from [employer]. Physical exam (Primary Care) Vital Signs: Last Vital Signs Pulse 86 02/13/24 15:40 Resp 14 02/13/24 15:40 BP 132/76 02/13/24 15:40 Pulse Ox 90 L 02/13/24 15:40 Oxygen Delivery Method Room Air 02/13/24 15:40 Tobacco/Smoking Status: Tobacco use Status Tobacco use date assessed 07/03/23 02/13/24 15:39 Patient Tobacco Use Status Current everyday Tobacco 02/13/24 15:39 Tobacco use type Cigarette 02/13/24 15:39 e-Cigarette/Vaping Use Never Used 02/13/24 15:39 Thrive Assessment: Date of Thrive Assessment Date Thrive assessed 02/13/24 02/13/24 15:39 Currently or been in a relationship where the following occur: I choose not to answer Coding Level of Care Code Est Pt Level 4 (74639) Complex EM visit Add On G2211 Diagnoses Other chest pain R07.89 Chest pain type: other chest pain Assessment & Plan Assessment & Plan (1) Chest pain: Code(s): R07.9 - Chest pain, unspecified Category: Medical Qualifiers: Chest pain type: other chest pain Qualified Code(s): R07.89 - Other chest pain Plan: EKG unchanged Sent to ER to r/o PE, ACS, pneumonia Orders: Referrals Cardiology Referral R07.89 - Other chest pain
[2024-02-13 15:40] VITALS: BP 132/76; PULSE 86; RESP 14; O2SAT 90
== END 2024-02-13 16:42 | disposition home or self-care (01) ==
PROVIDERS: PCP Internal Medicine; Visit Provider Internal Medicine
DX: R07.89 Other chest pain (principal)

== ENCOUNTER 2024-02-13 16:53 | Emergency (ER) | payer OTHER, SELFPAY ==
--- NOTE | ~2024-02-13 | US_ITS ---
CLINICAL HISTORY: pain, swelling Venous duplex ultrasound left lower extremity Comparison: None Findings: The visualized deep veins are fully compressible with normal Doppler color flow and spectral tracings. No popliteal cyst. IMPRESSION: 1. Negative for left lower extremity deep vein thrombosis. This document has been electronically signed by: Chuck Colon MD on 02/13/2024 22:14:15
--- NOTE | ~2024-02-13 | XR_ITS ---
CLINICAL HISTORY: sob 2 view chest x-ray Comparison: None Findings: No consolidation or effusion. Normal size heart. No acute fracture. IMPRESSION: 1. No acute findings. This document has been electronically signed by: Chuck Colon MD on 02/13/2024 17:51:49
--- NOTE | 2024-02-13 16:55 | ECG_ITS ---
Test Reason : CHEST PAIN Blood Pressure : / mmHG Vent. Rate : 084 BPM Atrial Rate : 084 BPM P-R Int : 162 ms QRS Dur : 082 ms QT Int : 342 ms P-R-T Axes : 064 115 055 degrees QTc Int : 404 ms Normal sinus rhythm Left posterior fascicular block Anterior infarct (cited on or before 06-MAR-2023) Abnormal ECG When compared with ECG of 06-MAR-2023 18:35, No significant change was found Referred By: Generic ED Physician Electronically Signed By:Breezy Meeks
[2024-02-13 17:03] VITALS: BP 134/80; PULSE 85; RESP 19; TEMP 37; O2SAT 90; BMI 36.0
--- NOTE | 2024-02-13 17:12 | PC.NURSE ---
placed on 1 lpm nc
--- NOTE | 2024-02-13 17:19 | ED_ITS ---
HPI - General Adult General Chief complaint: Upper Respiratory Symptoms Stated complaint: chest pain/sob/pcp sent her in Time Seen by Provider: 02/13/24 21:04 Related Data Home Medications ?Medication ?Instructions ?Recorded ?Confirmed aspirin 325 mg tablet 325 mg PO 1230 09/27/20 03/24/23 hydroxychloroquine 200 mg tablet 200 mg PO DAILY 09/27/20 03/24/23 loratadine 10 mg tablet 10 mg PO 0030 09/27/20 03/24/23 baclofen 10 mg tablet 1 tab PO TID 07/27/21 03/24/23 hyoscyamine sulfate 0.125 mg tablet 0.125 mg PO DAILY 07/03/23 insulin lispro 100 unit/mL 25 unit subcut QIDWMHS 07/03/23 subcutaneous pen (Humalog KwikPen (U-100) Insulin) umeclidinium 62.5 mcg-vilanterol 1 inh inhalation DAILY 07/03/23 25 mcg/actuation powdr for inhalation (Anoro Ellipta) insulin degludec 100 unit/mL (3 unit subcut 11/03/23 mL) subcutaneous pen (Tresiba FlexTouch U-100 insulin) nystatin 100,000 unit/mL oral PO 11/03/23 suspension ondansetron 8 mg disintegrating mg PO 11/03/23 tablet Previous Rx's ?Medication ?Instructions ?Recorded naloxone 4 mg/actuation nasal spray 4 mg intranasal Q2M PRN opioid 08/27/21 overdose #2 ea benzonatate 200 mg capsule 200 mg PO TID PRN cough #30 caps 03/06/23 amlodipine 10 mg tablet 10 mg PO DAILY 90 days #90 tabs 07/03/23 losartan 25 mg tablet 25 mg PO DAILY 90 days #90 tabs 07/03/23 diclofenac sodium 1 % topical gel 2 g topical QID #100 grams 07/15/23 blood-glucose meter #1 ea 08/25/23 montelukast 10 mg tablet 10 mg PO DAILY 90 days #90 tabs 08/25/23 albuterol sulfate 90 mcg/actuation 2 puff PO Q6H PRN wheezing #8.5 08/29/23 aerosol inhaler grams fluconazole 150 mg tablet 150 mg PO DAILY #7 tabs 08/29/23 mupirocin 2 % topical ointment 1 appl topical BID #22 grams 09/16/23 nitrofurantoin macrocrystal 100 mg 100 mg PO BID #14 caps 10/22/23 capsule cyclobenzaprine 5 mg tablet 5 mg PO BID PRN Pain 90 days #180 10/29/23 tabs pregabalin 75 mg capsule (Lyrica) 75 mg PO BID #180 caps 11/07/23 diclofenac sodium 75 mg 75 mg PO BID PRN Pain #180 tabs 11/21/23 tablet,delayed release clobetasol 0.025 % topical cream 1 appl topical DAILY #100 grams 12/12/23 (Impoyz) magnesium oxide 400 mg (241.3 mg 400 mg PO BID #90 tabs 12/12/23 magnesium) tablet pantoprazole 40 mg tablet,delayed 40 mg PO BID #60 tabs 12/15/23 release FreeStyle Mag 3 Plus Sensor #6 ea 12/16/23 (blood-glucose sensor) FreeStyle Mag 3 [place] #1 ea 12/16/23 (blood-glucose meter,continuous) cephalexin 500 mg capsule 500 mg PO QID 7 days #28 caps 12/16/23 metformin 1,000 mg tablet 1,000 mg PO BID 90 days #180 tabs 12/30/23 doxycycline monohydrate 100 mg 100 mg PO BID 10 days #20 tabs 01/10/24 tablet colloidal oatmeal 1 % topical 1 appl topical TID #226 grams 01/19/24 cream (Eucerin Eczema Relief) mupirocin 2 % topical ointment 1 appl topical DAILY #50 grams 01/19/24 diazepam 2 mg tablet 2 mg PO BEDTIME PRN Anxiety 30 01/20/24 days #30 tabs morphine 15 mg tablet,extended 15 mg PO Q8H 28 days #84 tabs 01/20/24 release pramipexole 0.25 mg tablet 1 mg (4 x 0.25 mg) PO DAILY #360 01/23/24 tabs linaclotide 145 mcg capsule 145 mcg PO DAILY #90 caps 01/27/24 morphine 30 mg tablet,extended 30 mg PO Q12H #56 tabs 01/27/24 release xsimrqw-[id number]-AMO-caffeine 30 1 cap PO QID PRN headache 28 days 01/28/24 mg-50 mg-325 mg-40 mg capsule #28 caps fluorouracil 5 % topical cream 1 appl topical BID 2 weeks #40 01/28/24 grams sulfamethoxazole 400 1 tab PO BID #10 tabs 01/28/24 mg-trimethoprim 80 mg tablet (Bactrim) clotrimazole 1 % topical cream 1 appl topical TID #45 grams 02/02/24 (Lotrimin AF (clotrimazole)) oxycodone 10 mg tablet 10 mg PO QID PRN pain 28 days #112 02/06/24 tabs benzonatate 100 mg capsule 100 mg PO TID PRN cough #12 caps 02/13/24 Allergies Allergy/AdvReac Type Severity Reaction Status Date / Time atorvastatin [From LIPITOR] Allergy Severe Difficulty Verified 02/13/24 17:06 Breathing azithromycin [AZITHROMYCIN] Allergy Severe Difficulty Verified 02/13/24 17:06 Breathing mite-Dermatophagoides Allergy Severe Difficulty Verified 02/13/24 17:06 farinae, vicente Breathing [dust mite - [place]] sumatriptan [From IMITREX] Allergy Severe Difficulty Verified 02/13/24 17:06 Breathing house dust Allergy Mild Unknown Verified 02/13/24 17:06 acetaminophen [From TYLENOL] Allergy Unknown Itching Verified 02/13/24 17:06 adhesive tape [ADHESIVE TAPE] Allergy Unknown Rash Verified 02/13/24 17:06 gentamicin [GENTAMICIN] Allergy Unknown Rash Verified 02/13/24 17:06 adalimumab [From Humira] Allergy Rash Verified 02/13/24 17:06 erythromycin base Allergy Unknown Verified 02/13/24 17:06 haloperidol [From HALDOL] AdvReac Unknown GI Issues Verified 02/13/24 17:06 ketorolac [From TORADOL] AdvReac Unknown Muscle Verified 02/13/24 17:06 cramps prasterone (DHEA) [From DHEA] AdvReac Unknown Cardiac Verified 02/13/24 17:06 issues varenicline [From CHANTIX] AdvReac Unknown Seizure Verified 02/13/24 17:06 [facility] Past Medical History Medical History Chronic pain syndrome half-way (current) use of opiate analgesic Osteoporosis Sjogrens syndrome Rheumatoid arthritis Osteoarthritis Chronic, continuous use of opioids GERD (gastroesophageal reflux disease) Hx of difficult intubation Smoker COPD (chronic obstructive pulmonary disease) Asthma Polycythemia Boils Eczema Bursitis Disc degeneration Sleep apnea Diabetes Fibromyalgia Surgical History History of esophagogastroduodenoscopy (EGD) Hx of tonsillectomy History of surgical removal of pilonidal cyst Hx of plastic surgery Hx of hysterectomy Hx of cholecystectomy Hx of appendectomy History of colonoscopy History of bladder suspension procedure History of removal of cyst Family History Family History (Updated 11/07/23 @ 12:53 by Caryl David CMA) Mother Polycythemia TIA (transient ischemic attack) Father Heart attack Other No family history of cancer Social History Social History Household Members: Spouse and Children Housing: House Are you a primary specialist wound care to a significant other at home: No Do you presently have visiting nurse or other home services: No Alcohol intake: never Patient Tobacco Use Status: Current everyday Tobacco user Tobacco use type: Cigarette Cigarette Packs Per Day: 1 Cigarettes Per Day: 20.0 Years Smoked: 46 Smoked in Last 30 Days: Yes e-Cigarette/Vaping Use: Never Used Second Hand Smoke Exposure: Yes Use of substances other than those prescribed or required for medical reasons: No Advance Directives: Yes Advance Directives on File: Yes Advance Directives Date on File: 12/24/19 Do you have a plan to hurt others: No Plan service: No Current occupational status: retired 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 Cognitive needs: No Hearing needs: No Vision needs: No Physical Exam ED Vital Signs: Vital Signs - 24 hr 02/13/24 17:03 02/13/24 20:23 02/13/24 21:01 Temperature 98.6 F 97.6 F Pulse Rate 85 79 Respiratory Rate 19 18 Blood Pressure 134/80 138/62 Pulse Oximetry 90 L 97 97 Oxygen Delivery Method Room Air Nasal Cannula Nasal Cannula Oxygen Flow Rate 2 02/13/24 21:29 02/13/24 22:39 02/13/24 23:33 Temperature 97.6 F Pulse Rate 79 Respiratory Rate 18 Blood Pressure 138/62 Pulse Oximetry 88 L 94 94 Oxygen Delivery Method Room Air Room Air Room Air Oxygen Flow Rate BMI result Body Mass Index 36.0 Course Course Course Narrative: RME performed by Merle De Souza PA-C. Patient is a 63 year old assigned female at presenting to the emergency department with shortness of breath and chest pain. Patient states over the last 2 weeks she has had a cough and shortness of breath with chest pain. Detailed physical exam and review of systems are deferred to the warehouse operator. EKG, labs, imaging,and swabs ordered. Patient placed back in the waiting room pending room availability and results. Patient seen and dispositioned by Dr. Rodriguez. Please refer to her note from 02/13/2024. Medications Administered Discontinued Medications Generic Name Dose Route Start Last Admin Trade Name Freq PRN Reason Stop Dose Admin Oxycodone HCl 10 mg 02/13/24 22:51 02/13/24 22:57 Oxycodone Hcl Immed Release 5 Mg Tablet PO 02/13/24 22:52 10 mg ONCE ONE Administration Medical Decision Making Lab Data 02/13/24 17:26 02/13/24 17:26 Labs: Lab Results 02/13/24 02/13/24 02/13/24 Range/Units 17:26 21:35 21:38 WBC 13.4 H (4.8-10.8) X10*3/uL RBC 5.80 H (4.20-5.50) X10*6/uL Hgb 16.6 H (12.0-16.0) g/dl Hct 51.0 H (37.0-47.0) % MCV 87.9 (80.0-98.0) fL MCH 28.6 (27.0-33.0) pg MCHC 32.5 (31.0-35.0) g/dl RDW 15.9 (11.0-16.0) % Plt Count 262 (160-400) X10*3/uL MPV 9.6 (9.4-12.3) fL Immature Gran % (Auto) 1.1 H (0.0-0.4) % Neut % (Auto) 71.3 (45-73) % Lymph % (Auto) 16.3 L (20-40) % [place]y % (Auto) 6.5 (2-11) % Eos % (Auto) 4.1 H (0-4) % Baso % (Auto) 0.7 (0-2) % Lymph # (Auto) 2.2 (1.2-4.9) X10*3/uL [place]y # (Auto) 0.9 (0.1-1.2) X10*3/uL Eos # (Auto) 0.6 H (0.0-0.4) X10*3/uL Baso # (Auto) 0.1 (0.0-0.2) X10*3/uL Abs Immat Gran (auto) 0.15 H (0.00-0.03) X10*3/uL Absolute Neuts (auto) 9.6 H (2.0-8.3) x10*3/uL Absolute Nucleated RBC 0.000 (0.0-0.012) X10*3/uL Nucleated RBC % (auto) 0.0 (0.0-0.2) /100WBC PT 13.6 H (10.9-12.4) SEC INR 1.2 H (0.9-1.1) D-Dimer High Sensitivty 200 NG/ML VBG pH 7.43 (7.32-7.43) VBG pCO2 44 mmHg VBG pO2 164 mmHg VBG HCO3 29 H (22-26) mmol/L VBG O2 Saturation 99.0 % VBG Base Excess 4.8 mmol/L Sodium 136 (135-145) mmol/L Potassium 4.3 (3.3-5.1) mmol/L Chloride 96 (96-108) mmol/L Carbon Dioxide 26 (22-29) mmol/L Anion Gap 18 (12-20) BUN 9 (9-16) mg/dL Creatinine 0.63 (0.5-1.4) mg/dL Estim Creat Clear Calc 103.6 Estimated GFR > 60 Random Glucose 142 H (60-115) mg/dL Calcium 9.0 (8.4-10.2) mg/dL Troponin I High Sens 4.6 (<3.5-17.0) ng/L B-Natriuretic Peptide 21 (<100) pg/mL Urine Color Yellow Urine Appearance Clear Urine pH 5.5 (5.0-9.0) Ur Specific Elaine 1.010 (1.005-1.025) Urine Protein Negative (Neg-Trace) mg/dL Urine Glucose (UA) Negative (Negative) mg/dL Urine Ketones Negative (Negative) mg/dL Urine Blood Negative (Negative) Urine Nitrite Positive H (Negative) Ur Leukocyte Esterase Negative (Negative) Urine RBC 0-2 (0-2) /HPF Urine WBC 0-5 (0-5) /HPF Ur Squamous Epith Cells 3-5 (0-2) /HPF Urine Bacteria 3+ (None Seen) Hyaline Casts 0-2 (0-2) /LPF Influenza Type A (PCR) NEGATIVE (Negative) Influenza Type B (PCR) NEGATIVE (Negative) RSV RNA Qual (PCR) NEGATIVE (Negative) SARS-CoV-2 RNA (RT-PCR) NEGATIVE (Negative) Discharge Plan Discharge Clinical Impression: Acute viral bronchitis Patient Disposition: Home, Self-Care Instructions: Acute Bronchitis (ED) Additional Instructions: Please follow-up with your primary care physician tomorrow. If you have any worsening or new symptoms, please return to the emergency room or call 911 Prescriptions: New benzonatate 100 mg capsule 100 mg PO TID PRN (Reason: cough) Qty: 12 0RF No Action diclofenac sodium 1 % gel 2 g topical QID Qty: 100 1RF Rx Instructions: apply to single elbow, wrist or hand; for hand includes palm/fingers/back of hand montelukast 10 mg tablet 10 mg PO DAILY 90 Days Qty: 90 3RF (DME) blood-glucose meter Kit See Rx Instructions .Route Qty: 1 0RF Rx Instructions: 4 times daily to check blood glucose albuterol sulfate 90 mcg/actuation HFA aerosol inhaler 2 puff PO Q6H PRN (Reason: wheezing) Qty: 8.5 3RF fluconazole 150 mg tablet 150 mg PO DAILY Qty: 7 1RF mupirocin 2 % ointment 1 appl topical BID Qty: 22 3RF nitrofurantoin macrocrystal 100 mg capsule 100 mg PO BID Qty: 14 1RF Rx Instructions: must administer with a meal/food cyclobenzaprine 5 mg tablet 5 mg PO BID PRN (Reason: Pain) 90 Days Qty: 180 3RF diclofenac sodium 75 mg tablet,delayed release (DR/EC) 75 mg PO BID PRN (Reason: Pain) Qty: 180 1RF Impoyz 0.025 % cream 1 appl topical DAILY Qty: 100 3RF magnesium oxide 400 mg (241.3 mg magnesium) tablet 400 mg PO BID Qty: 90 3RF pantoprazole 40 mg tablet,delayed release (DR/EC) 40 mg PO BID Qty: 60 3RF metformin 1,000 mg tablet 1,000 mg PO BID 90 Days Qty: 180 3RF doxycycline monohydrate 100 mg tablet 100 mg PO BID 10 Days Qty: 20 0RF mupirocin 2 % ointment 1 appl topical DAILY Qty: 50 3RF diazepam 2 mg tablet 2 mg PO BEDTIME PRN (Reason: Anxiety) 30 Days Qty: 30 1RF morphine 15 mg tablet extended release 15 mg PO Q8H 28 Days Qty: 84 0RF pramipexole 0.25 mg tablet 1 mg PO DAILY Qty: 360 3RF morphine 30 mg tablet extended release 30 mg PO Q12H Qty: 56 0RF Rx Instructions: Partial Fill upon patient request. linaclotide 145 mcg capsule 145 mcg PO DAILY Qty: 90 1RF fluorouracil 5 % cream 1 appl topical BID 14 Days Qty: 40 0RF sulfamethoxazole-trimethoprim [Bactrim] 400-80 mg tablet 1 tab PO BID Qty: 10 0RF sfwkdpp-icqwffnzcq-UMJ-caff [id number] mg capsule 1 cap PO QID PRN (Reason: headache) 28 Days Qty: 28 0RF clotrimazole [Lotrimin AF (clotrimazole)] 1 % cream 1 appl topical TID Qty: 45 0RF oxycodone 10 mg tablet 10 mg PO QID PRN (Reason: pain) 28 Days Qty: 112 0RF baclofen 10 mg tablet 1 tab PO TID aspirin 325 mg Tablet 325 mg PO 1230 hydroxychloroquine 200 mg Tablet 200 mg PO DAILY loratadine 10 mg Tablet 10 mg PO 0030 insulin lispro [Humalog KwikPen Insulin] 100 unit/mL insulin pen 25 unit SUBCUT QIDWMHS benzonatate 200 mg capsule 200 mg PO TID PRN (Reason: cough) Qty: 30 0RF Eucerin Eczema Relief 1 % cream 1 appl topical TID Qty: 226 0RF losartan 25 mg tablet 25 mg PO DAILY 90 Days Qty: 90 3RF amlodipine 10 mg tablet 10 mg PO DAILY 90 Days Qty: 90 3RF hyoscyamine sulfate 0.125 mg tablet 0.125 mg PO DAILY Anoro Ellipta 62.5-25 mcg/actuation blister with device 1 inh inhalation DAILY naloxone 4 mg/actuation spray,non-aerosol 4 mg intranasal Q2M PRN (Reason: opioid overdose) Qty: 2 0RF Rx Instructions: spray 1 dose into ONE nostril; alternate nostrils w each dose until help arrives ondansetron 8 mg tablet,disintegrating PO nystatin 100,000 unit/mL suspension PO insulin degludec [Tresiba FlexTouch U-100] 100 unit/mL (3 mL) insulin pen subcut pregabalin [Lyrica] 75 mg capsule 75 mg PO BID Qty: 180 3RF cephalexin 500 mg capsule 500 mg PO QID 7 Days Qty: 28 3RF (DME) FreeStyle Mag 3 Plus Sensor Device See Rx Instructions .Route Qty: 6 3RF Rx Instructions: As directed (DME) FreeStyle Mag 3 [place] Misc See Rx Instructions .Route Qty: 1 0RF Rx Instructions: As directed Interventions: ED Discharge Assessment Last Done: 02/13/24 23:33 Discharge Date/Time: 02/13/24 23:20 Print Language: Cuban
[2024-02-13 17:31] LABS: MANUAL DIFF FLAG NO
[2024-02-13 17:32] LABS: Basophils Absolute Auto 0.1 X10*3/uL (0.0-0.2); Basophils Percent Auto 0.7 % (0-2); Eosinophils Absolute Auto 0.6 X10*3/uL (0.0-0.4); Eosinophils Percent Auto 4.1 % (0-4); Hemoglobin 16.6 g/dl (12.0-16.0); Imm Gran Abs Auto 0.15 X10*3/uL (0.00-0.03); Imm Gran Pct Auto 1.1 % (0.0-0.4); Lymphocytes Absolute Auto 2.2 X10*3/uL (1.2-4.9); Lymphocytes Percent Auto 16.3 % (20-40); Mean Corpuscular HGB Conc 32.5 g/dl (31.0-35.0); Mean Corpuscular Hemoglobin 28.6 pg (27.0-33.0); Mean Corpuscular Volume 87.9 fL (80.0-98.0); Mean Platelet Volume 9.6 fL (9.4-12.3); Monocytes Absolute Auto 0.9 X10*3/uL (0.1-1.2); Monocytes Percent Auto 6.5 % (2-11); Neutrophils Absolute Auto 9.6 x10*3/uL (2.0-8.3); Neutrophils Percent Auto 71.3 % (45-73); Platelet Count 262 X10*3/uL (160-400); Red Cell Distribution Width 15.9 % (11.0-16.0); White Blood Count 13.4 X10*3/uL (4.8-10.8)
[2024-02-13 17:34] LABS: Appearance Urine Clear; Color Urine Yellow; Glucose Urine UA Negative (Negative); Leukocyte Esterase Urine Negative (Negative); Nitrite Urine Positive (Negative); PH 5.5 (5.0-9.0); UMIC TRIGGER UACC YES; Urine Blood Negative (Negative); Urine Ketones Negative (Negative); Urine Protein Negative (Neg-Trace)
[2024-02-13 17:57] LABS: Anion Gap 18 (12-20); Blood Urea Nitrogen 9 mg/dL (9-16); Carbon Dioxide 26 mmol/L (22-29); Chloride 96 mmol/L (96-108); Creatinine Clr Calc Pharmacy 103.6; Estimated Glomerular Filt Rate > 60; Glucose Random 142 mg/dL (60-115); Potassium 4.3 mmol/L (3.3-5.1); Sodium 136 mmol/L (135-145)
[2024-02-13 18:04] LABS: B Type Natriuretic Peptide 21 pg/mL (<100)
[2024-02-13 18:05] LABS: Troponin-I High Sensitivity 4.6 ng/L (<3.5-17.0)
[2024-02-13 18:22] LABS: Influenza A PCR NEGATIVE (Negative); Influenza B PCR NEGATIVE (Negative); Resp Syncy Virus RNA Qual PCR NEGATIVE (Negative); SARS COV2 PCR INHOUSE NEGATIVE (Negative)
[2024-02-13 18:29] LABS: Bacteria Urine 3+ (None Seen); Hyaline Casts Urine 0-2 /LPF (0-2); RBC Urine 0-2 /HPF (0-2); UACC Culture Trigger YES; WBC Urine 0-5 /HPF (0-5)
[2024-02-13 20:23] VITALS: BP 138/62; PULSE 79; RESP 18; TEMP 36.4; O2SAT 97
--- NOTE | 2024-02-13 20:23 | MHC.EDTECH ---
Patient brought from the waiting room,changed into hospital attire,placed on the box nailer,vitals taken,family at bedside,call lira in reach
[2024-02-13 21:01] VITALS: O2SAT 97
--- NOTE | 2024-02-13 21:21 | ED_ITS ---
HPI - General Adult General Chief complaint: Upper Respiratory Symptoms Stated complaint: chest pain/sob/pcp sent her in Time Seen by Provider: 02/13/24 21:04 Source: patient and family Mode of arrival: ambulatory Limitations: no limitations History of Present Illness ED Provider: Dr. Megan Rodriguez HPI narrative: Patient comes to emergency room complaining of chest pain and shortness of breath for about 2 weeks. Patient states that recently she has noticed that her left leg has become more swollen than usual. Admits that this is intermittent for her but it is now more frequent and stays swollen longer. Also, patient states that at home she has been checking her oxygen and drops to the 70s when ambulating. Patient known to have emphysema but states that she does not use oxygen at home. Patient denies any chest pain, But reports achiness in the chest wall from coughing so much. Related Data Home Medications ?Medication ?Instructions ?Recorded ?Confirmed aspirin 325 mg tablet 325 mg PO 1230 09/27/20 03/24/23 hydroxychloroquine 200 mg tablet 200 mg PO DAILY 09/27/20 03/24/23 loratadine 10 mg tablet 10 mg PO 0030 09/27/20 03/24/23 baclofen 10 mg tablet 1 tab PO TID 07/27/21 03/24/23 hyoscyamine sulfate 0.125 mg tablet 0.125 mg PO DAILY 07/03/23 insulin lispro 100 unit/mL 25 unit subcut QIDWMHS 07/03/23 subcutaneous pen (Humalog KwikPen (U-100) Insulin) umeclidinium 62.5 mcg-vilanterol 1 inh inhalation DAILY 07/03/23 25 mcg/actuation powdr for inhalation (Anoro Ellipta) insulin degludec 100 unit/mL (3 unit subcut 11/03/23 mL) subcutaneous pen (Tresiba FlexTouch U-100 insulin) nystatin 100,000 unit/mL oral PO 11/03/23 suspension ondansetron 8 mg disintegrating mg PO 11/03/23 tablet Previous Rx's ?Medication ?Instructions ?Recorded naloxone 4 mg/actuation nasal spray 4 mg intranasal Q2M PRN opioid 08/27/21 overdose #2 ea benzonatate 200 mg capsule 200 mg PO TID PRN cough #30 caps 03/06/23 amlodipine 10 mg tablet 10 mg PO DAILY 90 days #90 tabs 07/03/23 losartan 25 mg tablet 25 mg PO DAILY 90 days #90 tabs 07/03/23 diclofenac sodium 1 % topical gel 2 g topical QID #100 grams 07/15/23 blood-glucose meter #1 ea 08/25/23 montelukast 10 mg tablet 10 mg PO DAILY 90 days #90 tabs 08/25/23 albuterol sulfate 90 mcg/actuation 2 puff PO Q6H PRN wheezing #8.5 08/29/23 aerosol inhaler grams fluconazole 150 mg tablet 150 mg PO DAILY #7 tabs 08/29/23 mupirocin 2 % topical ointment 1 appl topical BID #22 grams 09/16/23 nitrofurantoin macrocrystal 100 mg 100 mg PO BID #14 caps 10/22/23 capsule cyclobenzaprine 5 mg tablet 5 mg PO BID PRN Pain 90 days #180 10/29/23 tabs pregabalin 75 mg capsule (Lyrica) 75 mg PO BID #180 caps 11/07/23 diclofenac sodium 75 mg 75 mg PO BID PRN Pain #180 tabs 11/21/23 tablet,delayed release clobetasol 0.025 % topical cream 1 appl topical DAILY #100 grams 12/12/23 (Impoyz) magnesium oxide 400 mg (241.3 mg 400 mg PO BID #90 tabs 12/12/23 magnesium) tablet pantoprazole 40 mg tablet,delayed 40 mg PO BID #60 tabs 12/15/23 release FreeStyle Mag 3 Plus Sensor #6 ea 12/16/23 (blood-glucose sensor) FreeStyle Mag 3 De Queen #1 ea 12/16/23 (blood-glucose meter,continuous) cephalexin 500 mg capsule 500 mg PO QID 7 days #28 caps 12/16/23 metformin 1,000 mg tablet 1,000 mg PO BID 90 days #180 tabs 12/30/23 doxycycline monohydrate 100 mg 100 mg PO BID 10 days #20 tabs 01/10/24 tablet colloidal oatmeal 1 % topical 1 appl topical TID #226 grams 01/19/24 cream (Eucerin Eczema Relief) mupirocin 2 % topical ointment 1 appl topical DAILY #50 grams 01/19/24 diazepam 2 mg tablet 2 mg PO BEDTIME PRN Anxiety 30 01/20/24 days #30 tabs morphine 15 mg tablet,extended 15 mg PO Q8H 28 days #84 tabs 01/20/24 release pramipexole 0.25 mg tablet 1 mg (4 x 0.25 mg) PO DAILY #360 01/23/24 tabs linaclotide 145 mcg capsule 145 mcg PO DAILY #90 caps 01/27/24 morphine 30 mg tablet,extended 30 mg PO Q12H #56 tabs 01/27/24 release lsooilk-yzozbdvghx-QYL-caffeine 30 1 cap PO QID PRN headache 28 days 01/28/24 mg-50 mg-325 mg-40 mg capsule #28 caps fluorouracil 5 % topical cream 1 appl topical BID 2 weeks #40 01/28/24 grams sulfamethoxazole 400 1 tab PO BID #10 tabs 01/28/24 mg-trimethoprim 80 mg tablet (Bactrim) clotrimazole 1 % topical cream 1 appl topical TID #45 grams 02/02/24 (Lotrimin AF (clotrimazole)) oxycodone 10 mg tablet 10 mg PO QID PRN pain 28 days #112 02/06/24 tabs benzonatate 100 mg capsule 100 mg PO TID PRN cough #12 caps 02/13/24 Allergies Allergy/AdvReac Type Severity Reaction Status Date / Time atorvastatin [From LIPITOR] Allergy Severe Difficulty Verified 02/13/24 17:06 Breathing azithromycin [AZITHROMYCIN] Allergy Severe Difficulty Verified 02/13/24 17:06 Breathing mite-Dermatophagoides Allergy Severe Difficulty Verified 02/13/24 17:06 farinae, vicente Breathing [dust mite - [place]] sumatriptan [From IMITREX] Allergy Severe Difficulty Verified 02/13/24 17:06 Breathing house dust Allergy Mild Unknown Verified 02/13/24 17:06 acetaminophen [From TYLENOL] Allergy Unknown Itching Verified 02/13/24 17:06 adhesive tape [ADHESIVE TAPE] Allergy Unknown Rash Verified 02/13/24 17:06 gentamicin [GENTAMICIN] Allergy Unknown Rash Verified 02/13/24 17:06 adalimumab [From Humira] Allergy Rash Verified 02/13/24 17:06 erythromycin base Allergy Unknown Verified 02/13/24 17:06 haloperidol [From HALDOL] AdvReac Unknown GI Issues Verified 02/13/24 17:06 ketorolac [From TORADOL] AdvReac Unknown Muscle Verified 02/13/24 17:06 cramps prasterone (DHEA) [From DHEA] AdvReac Unknown Cardiac Verified 02/13/24 17:06 issues varenicline [From CHANTIX] AdvReac Unknown Seizure Verified 02/13/24 17:06 Review of Systems 2 Review of Systems: Constitutional : No Weight loss, No Fever, No Chills, No Night Sweats, Complaining of chronic fatigue ENT/Mouth : No Hearing loss, No Ear Pain, No Nasal Congestion, No Sinus Pain, No Hoarseness, No sore throat, No Rhinorrhea, No Swallowing Difficulty Eyes: No Eye Pain, No Swelling, No Redness, No Foreign Body, No Discharge, No Vision Changes Cardiovascular : complaining of chest wall pain, denies actual Chest Pain, No SOB, complaining of dyspnea on exertion, no orthopnea no palpitations Respiratory : complaining of cough, wheezing Gastrointestinal : No Nausea, No Vomiting, No Diarrhea, No Constipation, No abdominal Pain, No Hematochezia, No Melena Genitourinary : no irregular bleeding, No Dysuria, No Urinary Frequency, No Hematuria, No Urinary Incontinence, No Urgency, No Flank Pain, No Urinary Flow Changes, No Hesitancy Musculoskeletal : No joint pain, No Myalgias, No Joint Swelling Skin : No Skin Lesions, No rash Neuro : No Weakness, No Numbness, No Paresthesias, No Loss of Consciousness, No Dizziness, No Headache Psych : No Anxiety/Panic, No Depression, No SI/HI/AH/VH, No Social Issues, Heme/Lymph: No Bruising, No Bleeding,No Lymphadenopathy Endocrine : No Polyuria, No Polydipsia, No Temperature Intolerance [facility] Past Medical History Medical History Chronic pain syndrome shelter (current) use of opiate analgesic Osteoporosis Sjogrens syndrome Rheumatoid arthritis Osteoarthritis Chronic, continuous use of opioids GERD (gastroesophageal reflux disease) Hx of difficult intubation Smoker COPD (chronic obstructive pulmonary disease) Asthma Polycythemia Boils Eczema Bursitis Disc degeneration Sleep apnea Diabetes Fibromyalgia Surgical History History of esophagogastroduodenoscopy (EGD) Hx of tonsillectomy History of surgical removal of pilonidal cyst Hx of plastic surgery Hx of hysterectomy Hx of cholecystectomy Hx of appendectomy History of colonoscopy History of bladder suspension procedure History of removal of cyst Family History Family History (Updated 11/07/23 @ 12:53 by Caryl David CMA) Mother Polycythemia TIA (transient ischemic attack) Father Heart attack Other No family history of cancer Social History Social History Household Members: Spouse and Children Housing: House Are you a primary transitions rn care coordinator to a significant other at home: No Do you presently have visiting nurse or other home services: No Alcohol intake: never Patient Tobacco Use Status: Current everyday Tobacco user Tobacco use type: Cigarette Cigarette Packs Per Day: 1 Cigarettes Per Day: 20.0 Years Smoked: 46 Smoked in Last 30 Days: Yes e-Cigarette/Vaping Use: Never Used Second Hand Smoke Exposure: Yes Use of substances other than those prescribed or required for medical reasons: No Advance Directives: Yes Advance Directives on File: Yes Advance Directives Date on File: 12/24/19 Do you have a plan to hurt others: No Plan service: No Current occupational status: retired 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 Cognitive needs: No Hearing needs: No Vision needs: No Physical Exam ED Vital Signs: Vital Signs - 24 hr 02/13/24 17:03 02/13/24 20:23 02/13/24 21:01 Temperature 98.6 F 97.6 F Pulse Rate 85 79 Respiratory Rate 19 18 Blood Pressure 134/80 138/62 Pulse Oximetry 90 L 97 97 Oxygen Delivery Method Room Air Nasal Cannula Nasal Cannula Oxygen Flow Rate 2 02/13/24 21:29 02/13/24 22:39 Temperature Pulse Rate Respiratory Rate Blood Pressure Pulse Oximetry 88 L 94 Oxygen Delivery Method Room Air Room Air Oxygen Flow Rate BMI result Body Mass Index 36.0 Const Other: Appearance: Alert. Oriented X3. No acute distress. Eyes: Pupils equal, round and reactive to light. ENT: Pharynx normal. Neck: Normal inspection. Neck supple. No lymph nodes noted. No crepitus CVS: Normal heart rate and rhythm. Pulses normal. Normal S1 and S2 Respiratory: No respiratory distress. mild bilateral wheezing, rales or crackles Abdomen: Soft and nontender. No rigidity. No distention. Skin: Skin warm and dry. Normal skin color. Normal skin turgor. Extremities: left lower extremity is erythematous, +3 pitting edema, +1 pitting edema on the right leg with no erythema Neuro: Oriented X 3. No motor deficit. No sensory deficit. Moving all extremities. No slurred speech. CN 2 through 12 grossly intact Psych: calm, cooperative, normal affect Course Course Course Narrative: my interpretation EKG: Normal sinus rhythm, heart rate 84, no ST segment depression or elevation, no T-wave inversion, QTC 404 my interpretation of chest x-ray: No obvious pulmonary edema or infiltrates my interpretation of labs: Patient's white blood cell count 13.4 which is chronic for the patient, rest of hematology at baseline, chemistry within normal limits, glucose 142, troponin negative, BNP 21 . Serology negative for COVID flu and RSV. - so far, no obvious source of infection. possible DVT/PE? - venous blood gases D-dimer pending ultrasound of the left leg pending Medical Decision Making Medical Decision Making [facility] Narrative: patient's oxygen saturation when awake 93%. When patient falls asleep, drops to 88%. Patient was ambulated vigorously around the emergency room, patient's oxygen saturation steady 94%, steady gait, no shortness of breath, no dizziness ultrasound negative for DVT patient admits that the lower extremity in her times becomes worse. - Patient will likely benefit from a sleep study. When she sleeps, her oxygen drops to 88%. Immediately when she wakes up her oxygen improved to 94%. - Patient's chronic cough for 2+ weeks, likely secondary to viral bronchitis. , patient had a negative DVT study, patient is not tachycardic, no fever, normal blood pressure, normal oxygen saturation with no O2 desaturation, Pulmonary embolism is not suspected Differential Diagnosis Differential Diagnoses: The differential diagnosis associated with the presentation includes Admission/Observation Consideration of admission/observation: Escalation of care including admission/observation considered ( given patient's history and presentation, observation was considered) Lab Data [facility] Lab Attestation statement: I reviewed the patient's lab results. 02/13/24 17:26 02/13/24 17:26 Labs: Lab Results 02/13/24 02/13/24 02/13/24 Range/Units 17:26 21:35 21:38 WBC 13.4 H (4.8-10.8) X10*3/uL RBC 5.80 H (4.20-5.50) X10*6/uL Hgb 16.6 H (12.0-16.0) g/dl Hct 51.0 H (37.0-47.0) % MCV 87.9 (80.0-98.0) fL MCH 28.6 (27.0-33.0) pg MCHC 32.5 (31.0-35.0) g/dl RDW 15.9 (11.0-16.0) % Plt Count 262 (160-400) X10*3/uL MPV 9.6 (9.4-12.3) fL Immature Gran % (Auto) 1.1 H (0.0-0.4) % Neut % (Auto) 71.3 (45-73) % Lymph % (Auto) 16.3 L (20-40) % [place] % (Auto) 6.5 (2-11) % Eos % (Auto) 4.1 H (0-4) % Baso % (Auto) 0.7 (0-2) % Lymph # (Auto) 2.2 (1.2-4.9) X10*3/uL [place] # (Auto) 0.9 (0.1-1.2) X10*3/uL Eos # (Auto) 0.6 H (0.0-0.4) X10*3/uL Baso # (Auto) 0.1 (0.0-0.2) X10*3/uL Abs Immat Gran (auto) 0.15 H (0.00-0.03) X10*3/uL Absolute Neuts (auto) 9.6 H (2.0-8.3) x10*3/uL Absolute Nucleated RBC 0.000 (0.0-0.012) X10*3/uL Nucleated RBC % (auto) 0.0 (0.0-0.2) /100WBC PT 13.6 H (10.9-12.4) SEC INR 1.2 H (0.9-1.1) D-Dimer High Sensitivty 200 NG/ML VBG pH 7.43 (7.32-7.43) VBG pCO2 44 mmHg VBG pO2 164 mmHg VBG HCO3 29 H (22-26) mmol/L VBG O2 Saturation 99.0 % VBG Base Excess 4.8 mmol/L Sodium 136 (135-145) mmol/L Potassium 4.3 (3.3-5.1) mmol/L Chloride 96 (96-108) mmol/L Carbon Dioxide 26 (22-29) mmol/L Anion Gap 18 (12-20) BUN 9 (9-16) mg/dL Creatinine 0.63 (0.5-1.4) mg/dL Estim Creat Clear Calc 103.6 Estimated GFR > 60 Random Glucose 142 H (60-115) mg/dL Calcium 9.0 (8.4-10.2) mg/dL Troponin I High Sens 4.6 (<3.5-17.0) ng/L B-Natriuretic Peptide 21 (<100) pg/mL Urine Color Yellow Urine Appearance Clear Urine pH 5.5 (5.0-9.0) Ur Specific [place] 1.010 (1.005-1.025) Urine Protein Negative (Neg-Trace) mg/dL Urine Glucose (UA) Negative (Negative) mg/dL Urine Ketones Negative (Negative) mg/dL Urine Blood Negative (Negative) Urine Nitrite Positive H (Negative) Ur Leukocyte Esterase Negative (Negative) Urine RBC 0-2 (0-2) /HPF Urine WBC 0-5 (0-5) /HPF Ur Squamous Epith Cells 3-5 (0-2) /HPF Urine Bacteria 3+ (None Seen) Hyaline Casts 0-2 (0-2) /LPF Influenza Type A (PCR) NEGATIVE (Negative) Influenza Type B (PCR) NEGATIVE (Negative) RSV RNA Qual (PCR) NEGATIVE (Negative) SARS-CoV-2 RNA (RT-PCR) NEGATIVE (Negative) Independent Interpretation I performed an independent interpretation of an: Plain X-Ray and Ultrasound Radiology Impression Discussion of test interpretation with radiology: I discussed test interpretation with the radiologist Radiologist Impression: The visualized deep veins are fully compressible with normal Doppler color flow and spectral tracings. No popliteal cyst. IMPRESSION: 1. Negative for left lower extremity deep vein thrombosis. No consolidation or effusion. Normal size heart. No acute fracture. IMPRESSION: 1. No acute findings Independent Historian Clinical information obtained from an independent historian. History obtained from or confirmed by: Spouse Critical Care Time Critical Care Time Critical Care Time: Yes Total Critical Care Time: 60 Attestation: I have personally provided critical care time. Time includes review of lab data, radiology results, discussion with consultants, and monitoring for potential decompensation. Intervention performed as documented. Discharge Plan Discharge Clinical Impression: Acute viral bronchitis Patient Disposition: Home, Self-Care Instructions: Acute Bronchitis (ED) Additional Instructions: Please follow-up with your primary care physician tomorrow. If you have any worsening or new symptoms, please return to the emergency room or call 911 Prescriptions: New benzonatate 100 mg capsule 100 mg PO TID PRN (Reason: cough) Qty: 12 0RF No Action diclofenac sodium 1 % gel 2 g topical QID Qty: 100 1RF Rx Instructions: apply to single elbow, wrist or hand; for hand includes palm/fingers/back of hand montelukast 10 mg tablet 10 mg PO DAILY 90 Days Qty: 90 3RF (DME) blood-glucose meter Kit See Rx Instructions .Route Qty: 1 0RF Rx Instructions: 4 times daily to check blood glucose albuterol sulfate 90 mcg/actuation HFA aerosol inhaler 2 puff PO Q6H PRN (Reason: wheezing) Qty: 8.5 3RF fluconazole 150 mg tablet 150 mg PO DAILY Qty: 7 1RF mupirocin 2 % ointment 1 appl topical BID Qty: 22 3RF nitrofurantoin macrocrystal 100 mg capsule 100 mg PO BID Qty: 14 1RF Rx Instructions: must administer with a meal/food cyclobenzaprine 5 mg tablet 5 mg PO BID PRN (Reason: Pain) 90 Days Qty: 180 3RF diclofenac sodium 75 mg tablet,delayed release (DR/EC) 75 mg PO BID PRN (Reason: Pain) Qty: 180 1RF Impoyz 0.025 % cream 1 appl topical DAILY Qty: 100 3RF magnesium oxide 400 mg (241.3 mg magnesium) tablet 400 mg PO BID Qty: 90 3RF pantoprazole 40 mg tablet,delayed release (DR/EC) 40 mg PO BID Qty: 60 3RF metformin 1,000 mg tablet 1,000 mg PO BID 90 Days Qty: 180 3RF doxycycline monohydrate 100 mg tablet 100 mg PO BID 10 Days Qty: 20 0RF mupirocin 2 % ointment 1 appl topical DAILY Qty: 50 3RF diazepam 2 mg tablet 2 mg PO BEDTIME PRN (Reason: Anxiety) 30 Days Qty: 30 1RF morphine 15 mg tablet extended release 15 mg PO Q8H 28 Days Qty: 84 0RF pramipexole 0.25 mg tablet 1 mg PO DAILY Qty: 360 3RF morphine 30 mg tablet extended release 30 mg PO Q12H Qty: 56 0RF Rx Instructions: Partial Fill upon patient request. linaclotide 145 mcg capsule 145 mcg PO DAILY Qty: 90 1RF fluorouracil 5 % cream 1 appl topical BID 14 Days Qty: 40 0RF sulfamethoxazole-trimethoprim [Bactrim] 400-80 mg tablet 1 tab PO BID Qty: 10 0RF sgwwvpu-dppjisulhd-MVN-caff [id number] mg capsule 1 cap PO QID PRN (Reason: headache) 28 Days Qty: 28 0RF clotrimazole [Lotrimin AF (clotrimazole)] 1 % cream 1 appl topical TID Qty: 45 0RF oxycodone 10 mg tablet 10 mg PO QID PRN (Reason: pain) 28 Days Qty: 112 0RF baclofen 10 mg tablet 1 tab PO TID aspirin 325 mg Tablet 325 mg PO 1230 hydroxychloroquine 200 mg Tablet 200 mg PO DAILY loratadine 10 mg Tablet 10 mg PO 0030 insulin lispro [Humalog KwikPen Insulin] 100 unit/mL insulin pen 25 unit SUBCUT QIDWMHS benzonatate 200 mg capsule 200 mg PO TID PRN (Reason: cough) Qty: 30 0RF Eucerin Eczema Relief 1 % cream 1 appl topical TID Qty: 226 0RF losartan 25 mg tablet 25 mg PO DAILY 90 Days Qty: 90 3RF amlodipine 10 mg tablet 10 mg PO DAILY 90 Days Qty: 90 3RF hyoscyamine sulfate 0.125 mg tablet 0.125 mg PO DAILY Anoro Ellipta 62.5-25 mcg/actuation blister with device 1 inh inhalation DAILY naloxone 4 mg/actuation spray,non-aerosol 4 mg intranasal Q2M PRN (Reason: opioid overdose) Qty: 2 0RF Rx Instructions: spray 1 dose into ONE nostril; alternate nostrils w each dose until help arrives ondansetron 8 mg tablet,disintegrating PO nystatin 100,000 unit/mL suspension PO insulin degludec [Tresiba FlexTouch U-100] 100 unit/mL (3 mL) insulin pen subcut pregabalin [Lyrica] 75 mg capsule 75 mg PO BID Qty: 180 3RF cephalexin 500 mg capsule 500 mg PO QID 7 Days Qty: 28 3RF (DME) FreeStyle Mag 3 Plus Sensor Device See Rx Instructions .Route Qty: 6 3RF Rx Instructions: As directed (DME) FreeStyle Mag 3 De Queen Misc See Rx Instructions .Route Qty: 1 0RF Rx Instructions: As directed Print Language: Citizen [place]
[2024-02-13 21:29] VITALS: O2SAT 88
--- NOTE | 2024-02-13 21:38 | MHC.EDTECH ---
Labs drawn and sent to lab,upon entry to room pt was eating chips and drinking, pt was asked not to eat due to testing that was needed,pt stated I need to drink Hill CASTELLANOS's at bedside to speak with pt.
[2024-02-13 21:42] LABS: Venous Blood Gas Refer to POC result
[2024-02-13 21:44] LABS: VBG Base Excess 4.8 mmol/L; VBG HCO3 29 mmol/L (22-26); VBG pCO2 44 mmHg; VBG pH 7.43 (7.32-7.43); VBG pO2 164 mmHg
[2024-02-13 21:47] LABS: INTERNATIONAL NORM RATIO 1.2 (0.9-1.1); Prothrombin Time 13.6 SEC (10.9-12.4)
[2024-02-13 21:49] LABS: D Dimer High Sensitivity 200 NG/ML
--- NOTE | 2024-02-13 21:59 | MHC.EDTECH ---
Patient ambulated to the bathroom with a steady gait,patient stated I'M in pain RN was made aware, at bedside
[2024-02-13 22:39] VITALS: O2SAT 94
--- NOTE | 2024-02-13 22:46 | MHC.EDTECH ---
Per provider's request,ambulating pulse oximetry 94% on room air
[2024-02-13] MEDS: oxyCODONE HCl Immed Release 5 MG TABLET 10 MG PO (22:57)
--- NOTE | 2024-02-13 23:28 | PC.NURSE ---
2257 pt medicated with oxycodone per order. 2320 pt observed wheeling self down the ramsay as t/w was exiting a patient room. T/w asked if pt needed anything and she stated she was leaving and that her pain was still at a 10. t/w then asked if she had received her d/c paperwork and pt stated she was not waiting for them. MD ballard.
[2024-02-13 23:33] VITALS: BP 138/62; PULSE 79; RESP 18; TEMP 36.4; O2SAT 94
== END 2024-02-13 23:20 | disposition home or self-care (01) ==
PROVIDERS: Emergency Provider Emergency Medicine; PCP Internal Medicine
DX: J40 Bronchitis, not specified as acute or chronic (principal); R60.0 Localized edema; R07.89 Other chest pain; R06.02 Shortness of breath; F17.210 Nicotine dependence, cigarettes, uncomplicated; Z03.818 Encounter for observation for suspected exposure to other biological agents ruled out; Z79.899 Other long term (current) drug therapy
CPT/HCPCS: 0241U; 36415; 71046; 80048; 81001; 82803; 83880; 84484; 85025; 85379; 85610; 87086; 87088; 87186; 93005; 93971; 99284; 99285

== ENCOUNTER → 2024-02-13 16:55 | Outpatient (BNV) | payer OTHER, SELFPAY | PROVIDERS: Emergency Provider Emergency Medicine; PCP Internal Medicine; Visit Provider Internal Medicine Cardiovascular Disease | DX: R07.9 Chest pain, unspecified (principal); R94.31 Abnormal electrocardiogram [ECG] [EKG] | CPT/HCPCS: 93010 ==

== ENCOUNTER → 2024-02-13 17:13 | Outpatient (BNV) | payer OTHER, SELFPAY | PROVIDERS: PCP Internal Medicine; Visit Provider Specialist | DX: R06.02 Shortness of breath (principal); R22.42 Localized swelling, mass and lump, left lower limb | CPT/HCPCS: 71046; 93971 ==

== ENCOUNTER → 2024-02-20 14:35 | Outpatient (BNVA) | payer OTHER, SELFPAY | PROVIDERS: PCP Internal Medicine; Visit Provider Internal Medicine ==

== ENCOUNTER → 2024-02-20 14:35 | Outpatient (AMB) | payer OTHER, SELFPAY ==
--- NOTE | 2024-02-20 15:09 | A.OFFPC_ITS ---
Vital Signs 02/20/24 15:11 BMI Reason not done Patient refused/unable BP 138/74 Blood Pressure Location Lt brachial Position Sitting Pulse 83 Pulse Source Pulse Oximeter Pulse Oximetry (%) 92 Oxygen Delivery Method Room Air Intake Visit Reasons: hospital follow up /[facility] Intake Note: Hospital follow up Allergies atorvastatin [From LIPITOR] Allergy (Severe, Verified 02/20/24 15:09) Difficulty Breathing azithromycin [AZITHROMYCIN] Allergy (Severe, Verified 02/20/24 15:09) Difficulty Breathing mite-Dermatophagoides farinae, vicente [dust mite - [place]] Allergy (Severe, Verified 02/20/24 15:09) Difficulty Breathing sumatriptan [From IMITREX] Allergy (Severe, Verified 02/20/24 15:09) Difficulty Breathing house dust Allergy (Mild, Verified 02/20/24 15:09) Unknown acetaminophen [From TYLENOL] Allergy (Unknown, Verified 02/20/24 15:09) Itching adhesive tape [ADHESIVE TAPE] Allergy (Unknown, Verified 02/20/24 15:09) Rash gentamicin [GENTAMICIN] Allergy (Unknown, Verified 02/20/24 15:09) Rash adalimumab [From Humira] Allergy (Verified 02/20/24 15:09) Rash erythromycin base Allergy (Verified 02/20/24 15:09) Unknown haloperidol [From HALDOL] Adverse Reaction (Unknown, Verified 02/20/24 15:09) GI Issues ketorolac [From TORADOL] Adverse Reaction (Unknown, Verified 02/20/24 15:09) Muscle cramps prasterone (DHEA) [From DHEA] Adverse Reaction (Unknown, Verified 02/20/24 1 5:09) Cardiac issues varenicline [From CHANTIX] Adverse Reaction (Unknown, Verified 02/20/24 15:09) Seizure Tobacco use date assessed: 07/03/23 Dental Screening Dental Screen Date: 07/03/23 HPI HPI Comments History of Present Illness Details 63-year-old female pmhx type 2 DM, RA, S jogrens, fibromyalgia, OA, celiac, UC, polycythemia, likely NHL, presenting for for exhaustion, shortness of breath, chest pain She was recently referred to the ER Reports for the past week has been having lower than usual oxygen saturations, shortness of breath, fatigue and some episodes of chest pain. Denies increased cough, fevers. Denies LE swelling though left lower leg swelling is present. Her oxygen sats today in 80s in the office, fluctuating 83-93%. EKG is unchanged from prior Ddimer was normal. CXR normal. Urine culture +. Discharged on tessolon perles for bronchitis. Placed on levaquin today to cover uti and pna as poor air entry and coarse breath sounds Heme/Onc: Patient follows for polycythemia. Had previous peripheral smear concerning for lymphoproliferative disorder ([facility]). Recent smear more reassuring. 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 Per patients she was scheduled for endoscopy/colonoscopy for evaluation however anesthesia wanted this held -she underwent pulmonary work up, cardiac work up. Endocrine: Type 2 diabetes: On humalog, tresiba, metformin. A1C 8.2. Also having lows which limits her uptitration without more information from a CGM which is ordered today. GI: History of duodenitis, esophagatis, colitis. Had double endoscopy 2020. Seen in 2022 with GI for possible repeat. Recently prescribed movantik though she reports this gave her opiate withdrawal. Pulm: Diagnosed with COPD. TENISHA on cpap. Following with Dr Nevarez. CV: HTN on amlodipine. Echo 06/2023. Hyperdynamic EF>70%. Mild pulmonary hypertension ID: Frequent UTI. Underwent mon pubis lift at [facility]. Still frequent UTI though she had stopped her daily prophylaxis. MSK/Rheuma Chronic pain: Multifactorial-RA/Sjogrens/Fibromyalgia/osteoarthrits/neuropathy. MRI 2020 disc desiccation at L5-S1 with annular bulge, disc protrustion, bony facet arthropathy on left L5-s1 impacting lateral aspect of the traversing left S1 nerve root. She repeated MRI in 2023. 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 Was following at pain management at [facility], previous to that Dr Wilkinson. On chronic opiate therapy, HCQ. ROS see HPI PHYSICAL EXAM: GENERAL: Alert and oriented x 3. NAD. fatigued EYES: EOMI. Anicteric. HENT: Moist mucous membranes. No scleral icterus. No cervical lymphadenopathy. LUNGS: Decreased air entry. Scattered coarse rhonci CARDIOVASCULAR: Regular rate and rhythm. ABDOMEN: Soft, non-tender +bs EXTREMITIES: Left leg swelling. SKIN: warm NEUROLOGIC: No focal neurological deficits. CN II-XII grossly intact PSYCHIATRIC: Cooperative. Appropriate mood and affect FOR[facility]LY [facility], [facility] Medical History Chronic pain syndrome 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 Osteoporosis Sjogrens syndrome Rheumatoid arthritis Osteoarthritis Chronic, continuous use of opioids GERD (gastroesophageal reflux disease) Hx of difficult intubation Smoker COPD (chronic obstructive pulmonary disease) Asthma Polycythemia Boils Eczema Bursitis Disc degeneration Sleep apnea Diabetes Fibromyalgia Surgical History History of esophagogastroduodenoscopy (EGD) Hx of tonsillectomy History of surgical removal of pilonidal cyst Hx of plastic surgery Hx of hysterectomy Hx of cholecystectomy Hx of appendectomy History of colonoscopy History of bladder suspension procedure History of removal of cyst Family History (Updated 11/07/23 @ 12:53 by Caryl David CMA) Mother Polycythemia TIA (transient ischemic attack) Father Heart attack Other No family history of cancer Social History Household Members: Spouse and Children Housing: House Are you a primary rn critical care to a significant other at home: No Do you presently have visiting nurse or other home services: No Alcohol intake: never Patient Tobacco Use Status: Current everyday Tobacco user Tobacco use type: Cigarette Cigarette Packs Per Day: 1 Cigarettes Per Day: 20.0 Years Smoked: 46 Packs Per Year: 46 Packs per year/per ci.00 e-Cigarette/Vaping Use: Never Used Second Hand Smoke Exposure: Yes Advance Directives Date on File: 12/24/19 service: No Current occupational status: retired 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 Cognitive needs: No Hearing needs: No Vision needs: No Questionnaire Thrive Questionnaire Date Thrive assessed: 02/13/24 I am a: Patient What is your living situation today?: I have a steady place to live Within the past 12 months, did the food you bought not last and you didn't have the money to get more?: I choose not to answer this question Within the past 12 months, did you worry whether your food would run out before you got money to buy more?: I choose not to answer this question Do you have trouble paying for medicines?: I choose not to answer this question Do you have trouble getting transportation to medical appointments?: I choose not to answer this question Do you have trouble paying your heating and electricity bill?: I choose not to answer this question Do you have trouble taking care of your child, family member or friend?: I choose not to answer this question Do you have trouble with day-to-day activities such as bathing, preparing meals, shopping, managing finances, etc.?: I choose not to answer this question Are you currently unemployed and looking for a job?: I choose not to answer this question Are you interested in more education?: I choose not to answer this question Please select the resources that you would like help with: None Currently or been in a relationship where the following occur: No concerns reported THRIVE Score: 0 AUDIT C Alcohol Use Questionnaire (AUDIT-C) 1. How often do you have a drink containing alcohol?: Never Total Score: 0 BERNARDO-7 AMB Questionnaire BERNARDO-7 Date BERNARDO - 7 assessed: 02/13/24 Feeling nervous, anxious, or on edge: 0 = Not at all Not being able to stop or control worryin = Not at all Worrying too much about different things: 0 = Not at all Trouble relaxin = Not at all Being so restless that it is hard to sit still: 0 = Not at all Becoming easily annoyed or irritable: 0 = Not at all Feeling afraid as if something awful might happen: 0 = Not at all Total BERNARDO-7 score (0-4 normal; 5-9 mild; 10-14 moderate; 15-21 severe): 0 Source: Developed by Drs. Sumanth Stover, Sun Dan, Pavel Mckenzie and colleagues, with an educational joy from [employer]. Physical exam (Primary Care) Vital Signs: Last Vital Signs Pulse 83 02/20/24 15:11 BP 138/74 02/20/24 15:11 Pulse Ox 92 02/20/24 15:11 Oxygen Delivery Method Room Air 02/20/24 15:11 Tobacco/Smoking Status: Tobacco use Status Tobacco use date assessed 07/03/23 02/20/24 15:14 Patient Tobacco Use Status Current everyday Tobacco 02/20/24 15:14 Tobacco use type Cigarette 02/20/24 15:14 e-Cigarette/Vaping Use Never Used 02/20/24 15:14 Thrive Assessment: Date of Thrive Assessment Date Thrive assessed 02/13/24 02/20/24 15:14 Currently or been in a relationship where the following occur: No concerns reported Coding Level of Care Code Est Pt Level 4 (40331) Diagnoses Pulmonary emphysema, unspecified emphysema type J43.9 Emphysema type: unspecified Recurrent UTI N39.0 Assessment & Plan Assessment & Plan (1) Emphysema lung: Code(s): J43.9 - Emphysema, unspecified Category: Medical Qualifiers: Emphysema type: unspecified Qualified Code(s): J43.9 - Emphysema, unspecified Plan: With exacerbation, potential underlying pna. Levaquin ordered given UTI and possible pna. If no improvement may elect to have CTA performed given LLE swelling though duplex and ddimer negative (2) Recurrent UTI: Code(s): N39.0 - Urinary tract infection, site not specified Category: Medical Plan: see above Medications: New insulin glargine-yfgn (Semglee (insulin glargine-yfgn)) 44 units (0.44 mL) subcut DAILY 45 mL 3RF albuterol sulfate 2.5 mg (3 mL) inhalation Q4-6H PRN 180 mL 3RF shortness of breath or wheezing levofloxacin 750 mg PO DAILY 7 tabs 3RF prednisone Take 6 tab oral once daily for one day then take 5 tab oral once daily for one day then take 4 tab oral once daily for one day then take 3 tab oral once daily for one day then take 2 tab oral once daily for one day then take 1 tab oral once daily 21 tabs 0RF Refilled morphine ER Partial Fill upon patient request. 30 mg PO Q12H 56 tabs 0RF Discontinued benzonatate Discontinued Reason: Doctor's Order 200 mg PO TID PRN 30 caps 0RF cough morphine ER Discontinued Reason: Doctor's Order 15 mg PO Q8H 28 days 84 tabs 0RF insulin degludec (Tresiba FlexTouch U-100 insulin) Discontinued Reason: Doctor's Order 40 units (0.4 mL) subcut Q24H 90 days 36 mL 3RF
[2024-02-20 15:11] VITALS: BP 138/74; PULSE 83; O2SAT 92
== END ==
PROVIDERS: PCP Internal Medicine; Visit Provider Internal Medicine
DX: J43.9 Emphysema, unspecified (principal); N39.0 Urinary tract infection, site not specified

== ENCOUNTER 2024-02-27 03:28 | Inpatient (IN) | payer OTHER, SELFPAY ==
[2024-02-27] VITALS (14 sets, daily range): BP systolic 100–148; BP diastolic 57–70; PULSE 76–99; RESP 12–22; TEMP 36.1–36.9; O2SAT 88–97; BMI 38.9
--- NOTE | 2024-02-27 | ECG_ITS ---
Test Reason : SOB Blood Pressure : */* mmHG Vent. Rate : 92 BPM Atrial Rate : 92 BPM P-R Int : 142 ms QRS Dur : 78 ms QT Int : 326 ms P-R-T Axes : 54 128 42 degrees QTcB Int : 403 ms Normal sinus rhythm Left posterior fascicular block Abnormal ECG When compared with ECG of 13-Feb-2024 17:01, No significant change was found Referred By: Valente Leung Electronically Signed By: CHULA DANIELLE
--- NOTE | ~2024-02-27 | XR_ITS ---
CLINICAL HISTORY: dyspnea 1 view chest x-ray Comparison: 02/13/2024 Findings: Portions of the exam are obscured by overlying material. The lungs are clear. Heart size is normal. No acute fracture. IMPRESSION: 1. No acute findings. This document has been electronically signed by: Chuck Colon MD on 02/27/2024 05:32:20
--- NOTE | ~2024-02-27 | CT_ITS ---
EXAMINATION: CT ANGIOGRAM CHEST CLINICAL INFORMATION: Ongoing hypoxia refractory to COPD treatment. COMPARISON: CT lung screening 05/20/2023. CTPA 03/06/2023. TECHNIQUE: Multiple axial images were obtained through the chest after the administration of 75 mL of Omnipaque 350 intravenous contrast. Extensive vascular post-processing including two-dimensional and three-dimensional reformatted images were created and reviewed on an independent workstation. This CT examination was performed using dose optimization techniques as appropriate, variously including the following: *Automated exposure control *Adjustment of mA and/or kV according to patient size (this includes techniques or standardized protocols for targeted exams where dose is matched to indication/reason for exam; i.e. extremities or head) *Use of iterative reconstruction technique DLP: 485 mGy-cm FINDINGS: LUNGS: -Moderate to severe paraseptal emphysema throughout both lungs. -There are patchy pulmonary consolidative opacities in the left greater than right lower lobes consistent with pneumonia. -There is mild diffuse thickening of the small airways, most notable in the lower lobes. -Mild fibrotic changes in the lingula and right middle lobe. Moderate biapical parenchymal fibrosis. -No effusion or pneumothorax. -Within the confines of underlying parenchymal disease, no suspicious pulmonary nodules. PLEURA: There is no pleural effusion. No pleural mass or thickening. MEDIASTINUM: -Thyroid gland is normal. -There are numerous prominent lymph nodes in the mediastinum, and bilateral hilar regions, none pathologically enlarged, presumably reactive from the process in the lungs. -There is no esophageal abnormality. -There is mild cardiac enlargement with mildly increased cardiothoracic ratio. There is no pericardial effusion. VASCULAR: -Study quality is good. There is no evidence of pulmonary embolism. -The main pulmonary artery is enlarged up to 3.9 cm suggesting pulmonary arterial hypertension. -There is no evidence of acute aortic syndrome or aneurysm. -No evidence of right heart strain are reflux of contrast into the IVC. AXILLA/CHEST WALL: No lymphadenopathy. UPPER ABDOMEN: -Probable enlargement and diffuse fatty infiltration of liver. -There is bilateral adrenal hyperplasia. OSSEOUS STRUCTURES: No suspicious lytic or blastic bone lesions. Right shoulder arthroplasty. CT/CT angio chest PE protocol IMPRESSION: 1. No evidence of pulmonary embolic disease. Enlarged main pulmonary artery consistent with pulmonary arterial hypertension. 2. Segmental consolidations bilateral lower lobes, worse on the left, with associated small airway thickening, findings consistent with bronchopneumonia. 3. Reactive appearing mediastinal and hilar lymphadenopathy. This is unchanged from prior exams. 4. No evidence of acute aortic syndrome. No aneurysm. 5. Moderate to severe paraseptal emphysema present, with biapical fibrotic changes and mild fibrosis in the right middle lobe and lingula. 6. No suspicious pulmonary nodules within the confines of underlying parenchymal disease. 7. Mild cardiac enlargement. 8. There is fatty infiltration and probable enlargement of the liver. 9. Additional ancillary findings as discussed in the body the report. Electronically signed by: Erik Zimmerman MD 02/27/2024 01:01 PM [facility] MCCORMICK
--- NOTE | 2024-02-27 03:43 | MHC.EDTECH ---
pt changed over and placed on cardiac and continuos o2 monitor
--- NOTE | 2024-02-27 03:46 | ED_ITS ---
HPI - SOB/Dyspnea General Chief Complaint: Dyspnea Stated Complaint: sob Time Seen by Provider: 02/27/24 03:46 Source: patient Mode of arrival: EMS Limitations: no limitations History of Present Illness ED Provider: HPI Narrative: Patient is 63 years old with 40 pack year smoking history with underlying Sjogren's rheumatoid arthritis severe COPD sleep apnea with exertional hypoxia and nocturnal ox hypoxemia been increasingly sick for last 2 weeks was seen here on 02/12 x-ray was negative for pneumonia patient has just finished her prednisone yesterday she woke up increased shortness a breath was wearing the CPAP when pulse ox was 69 patient has not got her PFT done and does not have any home oxygen although her ambulatory pulse ox drops to 70s Related Data Home Medications ?Medication ?Instructions ?Recorded ?Confirmed aspirin 325 mg tablet 325 mg PO 1230 09/27/20 03/24/23 loratadine 10 mg tablet 10 mg PO 0030 09/27/20 03/24/23 baclofen 10 mg tablet 1 tab PO TID 07/27/21 03/24/23 hyoscyamine sulfate 0.125 mg tablet 0.125 mg PO DAILY 07/03/23 insulin lispro 100 unit/mL 25 unit subcut QIDWMHS 07/03/23 subcutaneous pen (Humalog KwikPen (U-100) Insulin) umeclidinium 62.5 mcg-vilanterol 1 inh inhalation DAILY 07/03/23 25 mcg/actuation powdr for inhalation (Anoro Ellipta) nystatin 100,000 unit/mL oral PO 11/03/23 suspension ondansetron 8 mg disintegrating mg PO 11/03/23 tablet Previous Rx's ?Medication ?Instructions ?Recorded naloxone 4 mg/actuation nasal spray 4 mg intranasal Q2M PRN opioid 08/27/21 overdose #2 ea amlodipine 10 mg tablet 10 mg PO DAILY 90 days #90 tabs 07/03/23 losartan 25 mg tablet 25 mg PO DAILY 90 days #90 tabs 07/03/23 diclofenac sodium 1 % topical gel 2 g topical QID #100 grams 07/15/23 blood-glucose meter #1 ea 08/25/23 montelukast 10 mg tablet 10 mg PO DAILY 90 days #90 tabs 08/25/23 albuterol sulfate 90 mcg/actuation 2 puff PO Q6H PRN wheezing #8.5 08/29/23 aerosol inhaler grams fluconazole 150 mg tablet 150 mg PO DAILY #7 tabs 08/29/23 mupirocin 2 % topical ointment 1 appl topical BID #22 grams 09/16/23 nitrofurantoin macrocrystal 100 mg 100 mg PO BID #14 caps 10/22/23 capsule cyclobenzaprine 5 mg tablet 5 mg PO BID PRN Pain 90 days #180 10/29/23 tabs pregabalin 75 mg capsule (Lyrica) 75 mg PO BID #180 caps 11/07/23 diclofenac sodium 75 mg 75 mg PO BID PRN Pain #180 tabs 11/21/23 tablet,delayed release clobetasol 0.025 % topical cream 1 appl topical DAILY #100 grams 12/12/23 (Impoyz) magnesium oxide 400 mg (241.3 mg 400 mg PO BID #90 tabs 12/12/23 magnesium) tablet pantoprazole 40 mg tablet,delayed 40 mg PO BID #60 tabs 12/15/23 release FreeStyle Mag 3 Plus Sensor #6 ea 12/16/23 (blood-glucose sensor) FreeStyle Mag 3 Fillmore #1 ea 12/16/23 (blood-glucose meter,continuous) cephalexin 500 mg capsule 500 mg PO QID 7 days #28 caps 12/16/23 metformin 1,000 mg tablet 1,000 mg PO BID 90 days #180 tabs 12/30/23 doxycycline monohydrate 100 mg 100 mg PO BID 10 days #20 tabs 01/10/24 tablet colloidal oatmeal 1 % topical 1 appl topical TID #226 grams 01/19/24 cream (Eucerin Eczema Relief) mupirocin 2 % topical ointment 1 appl topical DAILY #50 grams 01/19/24 diazepam 2 mg tablet 2 mg PO BEDTIME PRN Anxiety 30 01/20/24 days #30 tabs pramipexole 0.25 mg tablet 1 mg (4 x 0.25 mg) PO DAILY #360 01/23/24 tabs linaclotide 145 mcg capsule 145 mcg PO DAILY #90 caps 01/27/24 fluorouracil 5 % topical cream 1 appl topical BID 2 weeks #40 01/28/24 grams sulfamethoxazole 400 1 tab PO BID #10 tabs 01/28/24 mg-trimethoprim 80 mg tablet (Bactrim) clotrimazole 1 % topical cream 1 appl topical TID #45 grams 02/02/24 (Lotrimin AF (clotrimazole)) oxycodone 10 mg tablet 10 mg PO QID PRN pain 28 days #112 02/06/24 tabs hydroxychloroquine 200 mg tablet 200 mg PO DAILY #90 tabs 02/17/24 albuterol sulfate 2.5 mg/3 mL 2.5 mg (3 mL) inhalation Q4-6H PRN 02/20/24 (0.083 %) solution for nebulization shortness of breath or wheezing #180 mL insulin glargine-yfgn 100 unit/mL 44 unit (0.44 mL) subcut DAILY #45 02/20/24 subcutaneous solution (Semglee mL (insulin glargine-yfgn)) levofloxacin 750 mg tablet 750 mg PO DAILY #7 tabs 02/20/24 morphine 30 mg tablet,extended 30 mg PO Q12H #56 tabs 02/20/24 release prednisone 10 mg tablet See Rx Instructions PO DAILY #21 02/20/24 tabs taqvsmn-bvarqmqqpq-LAO-caffeine 30 1 cap PO QID PRN headache 28 days 02/26/24 mg-50 mg-325 mg-40 mg capsule #28 caps Allergies Allergy/AdvReac Type Severity Reaction Status Date / Time atorvastatin [From LIPITOR] Allergy Severe Difficulty Verified 02/27/24 04:00 Breathing azithromycin [AZITHROMYCIN] Allergy Severe Difficulty Verified 02/27/24 04:00 Breathing mite-Dermatophagoides Allergy Severe Difficulty Verified 02/27/24 04:00 farinae, vicente Breathing [dust mite - [place]] sumatriptan [From IMITREX] Allergy Severe Difficulty Verified 02/27/24 04:00 Breathing house dust Allergy Mild Unknown Verified 02/27/24 04:00 acetaminophen [From TYLENOL] Allergy Unknown Itching Verified 02/27/24 04:00 adhesive tape [ADHESIVE TAPE] Allergy Unknown Rash Verified 02/27/24 04:00 gentamicin [GENTAMICIN] Allergy Unknown Rash Verified 02/27/24 04:00 adalimumab [From Humira] Allergy Rash Verified 02/27/24 04:00 erythromycin base Allergy Unknown Verified 02/27/24 04:00 haloperidol [From HALDOL] AdvReac Unknown GI Issues Verified 02/27/24 04:00 ketorolac [From TORADOL] AdvReac Unknown Muscle Verified 02/27/24 04:00 cramps prasterone (DHEA) [From DHEA] AdvReac Unknown Cardiac Verified 02/27/24 04:00 issues varenicline [From CHANTIX] AdvReac Unknown Seizure Verified 02/27/24 04:00 ipratropium [From Atrovent] AdvReac Migraine Verified 02/27/24 04:00 Review of Systems 2 Review of Systems: Yes all other systems are reviewed and are negative [facility] Past Medical History Medical History Chronic pain syndrome 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 Osteoporosis Sjogrens syndrome Rheumatoid arthritis Osteoarthritis Chronic, continuous use of opioids GERD (gastroesophageal reflux disease) Hx of difficult intubation Smoker COPD (chronic obstructive pulmonary disease) Asthma Polycythemia Boils Eczema Bursitis Disc degeneration Sleep apnea Diabetes Fibromyalgia Surgical History History of esophagogastroduodenoscopy (EGD) Hx of tonsillectomy History of surgical removal of pilonidal cyst Hx of plastic surgery Hx of hysterectomy Hx of cholecystectomy Hx of appendectomy History of colonoscopy History of bladder suspension procedure History of removal of cyst Family History Family History Mother Polycythemia TIA (transient ischemic attack) Father Heart attack Other No family history of cancer Social History Social History Household Members: Spouse and Children Housing: House Are you a primary adult care manager to a significant other at home: No Do you presently have visiting nurse or other home services: No Alcohol intake: never Patient Tobacco Use Status: Current everyday Tobacco user Tobacco use type: Cigarette Cigarette Packs Per Day: 1 Cigarettes Per Day: 20.0 Years Smoked: 46 Smoked in Last 30 Days: Yes e-Cigarette/Vaping Use: Never Used Second Hand Smoke Exposure: Yes Use of substances other than those prescribed or required for medical reasons: No Advance Directives: Yes Advance Directives on File: Yes Advance Directives Date on File: 12/24/19 service: No Current occupational status: retired 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 Cognitive needs: No Hearing needs: No Vision needs: No Physical Exam 2 Vital Signs: Vital Signs: Last Vital Signs Temp 97.8 F 02/27/24 06:03 Pulse 92 02/27/24 06:03 Resp 17 02/27/24 06:03 BP 148/61 H 02/27/24 06:03 Pulse Ox 94 02/27/24 06:03 O2 Del Method Room Air, Nasal C annula 02/27/24 06:03 O2 Flow Rate 4 02/27/24 06:03 Oxygen Flow Rate 3 02/27/24 03:56 BMI result Body Mass Index 38.9 Appearance: Alert. Oriented X3. No acute distress. Obese Eyes: No pallor or icterus ENT: Pharynx normal. Oral Mucosa moist Neck: Normal inspection. Neck supple. CVS: Normal heart rate and rhythm. Pulses normal. Respiratory: No respiratory distress. Equal air entry bilateral, viral wheezing and conducted sounds Abdomen: Soft and nontender. Bowel sounds are present, no mass palpable, no CVA tenderness Skin: Skin warm and dry. Normal skin color. Normal skin turgor. Extremities: No lower extremity edema. No calf tenderness Neuro: Oriented X 3. No motor deficit. Medications Administered Discontinued Medications Generic Name Dose Route Start Last Admin Trade Name Freq PRN Reason Stop Dose Admin Albuterol Sulfate 7.5 mg/ 10 mg 02/27/24 04:55 02/27/24 04:59 Albuterol Sulfate 2.5 mg INHALE 02/27/24 04:56 10 mg ONCE ONE Administration Ceftriaxone Sodium 1 gm 02/27/24 05:30 02/27/24 05:43 Ceftriaxone Sodium 1 Gm Vial IVPUSH 02/27/24 05:31 1 gm ONCE ONE Administration Albuterol Sulfate 5 mg/ 0 mg 02/27/24 04:36 02/27/24 04:55 Albuterol/Ipratropium 3 ml INHALE 02/27/24 04:37 Not Given ONCE ONE Insulin Human Lispro 14 unit 02/27/24 05:26 02/27/24 05:43 Insulin Lispro 100 Unit/Ml 3 Ml Vial SUBCUT 02/27/24 05:27 14 unit ONCE ONE Administration Methylprednisolone Sodium Succinate 125 mg 02/27/24 04:38 02/27/24 05:02 Methylprednisolone Sod Succ 125 Mg/2 Ml Vial IVPUSH 02/27/24 04:39 Not Given ONCE ONE Medical Decision Making Medical Decision Making [facility] Narrative: Patient is smoker with severe COPD with resting and exertional hypoxemia not on oxygen at home will admit patient for supportive treatment plan to get oxygen while discharge unable to get oxygen because patient is still smokes will admit patient for acute on chronic hypoxic respiratory failure with chronic lung disease with hyperglycemia Differential Diagnosis Differential Diagnoses: The differential diagnosis associated with the presentation includes COPD exacerbation/bronchitis/chronic hypoxemia Admission/Observation Consideration of admission/observation: Escalation of care including admission/observation considered Consult Healthcare Provider Management of the patient was discussed with: Hospitalist Lab Data [facility] Lab Attestation statement: I reviewed the patient's lab results. 02/27/24 04:59 02/27/24 04:59 Labs: Lab Results 02/27/24 02/27/24 02/27/24 Range/Units 04:58 04:59 05:00 WBC 10.9 H (4.8-10.8) X10*3/uL RBC 5.66 H (4.20-5.50) X10*6/uL Hgb 15.9 (12.0-16.0) g/dl Hct 49.1 H (37.0-47.0) % MCV 86.7 (80.0-98.0) fL MCH 28.1 (27.0-33.0) pg MCHC 32.4 (31.0-35.0) g/dl RDW 15.3 (11.0-16.0) % Plt Count 241 (160-400) X10*3/uL MPV 9.7 (9.4-12.3) fL Immature Gran % (Auto) 1.0 H (0.0-0.4) % Neut % (Auto) 85.7 H (45-73) % Lymph % (Auto) 8.5 L (20-40) % Holmes % (Auto) 3.7 (2-11) % Eos % (Auto) 0.6 (0-4) % Baso % (Auto) 0.5 (0-2) % Lymph # (Auto) 0.9 L (1.2-4.9) X10*3/uL Holmes # (Auto) 0.4 (0.1-1.2) X10*3/uL Eos # (Auto) 0.1 (0.0-0.4) X10*3/uL Baso # (Auto) 0.1 (0.0-0.2) X10*3/uL Abs Immat Gran (auto) 0.11 H (0.00-0.03) X10*3/uL Absolute Neuts (auto) 9.3 H (2.0-8.3) x10*3/uL Absolute Nucleated RBC 0.000 (0.0-0.012) X10*3/uL Nucleated RBC % (auto) 0.0 (0.0-0.2) /100WBC VBG pH (7.32-7.43) VBG pCO2 mmHg VBG pO2 mmHg VBG HCO3 (22-26) mmol/L VBG O2 Saturation % VBG Base Excess mmol/L Sodium 132 L (135-145) mmol/L Potassium 5.3 H D (3.3-5.1) mmol/L Chloride 95 L (96-108) mmol/L Carbon Dioxide 29 (22-29) mmol/L Anion Gap 13 (12-20) BUN 14 (9-16) mg/dL Creatinine 0.88 (0.5-1.4) mg/dL Estim Creat Clear Calc 77.4 Estimated GFR > 60 Random Glucose 447 H* (60-115) mg/dL Lactic Acid 1.4 (0.5-2.0) mmol/L Calcium 8.9 (8.4-10.2) mg/dL Total Bilirubin 0.5 (0.0-1.0) mg/dL AST 43 H (5-31) U/L ALT 32 H (0-31) U/L Alkaline Phosphatase 82 (39-117) U/L Troponin I High Sens 16.5 D (<3.5-17.0) ng/L B-Natriuretic Peptide 63 (<100) pg/mL Total Protein 7.0 (6.5-8.0) g/dL Albumin 3.5 (3.5-5.0) g/dL Influenza Type A (PCR) NEGATIVE (Negative) Influenza Type B (PCR) NEGATIVE (Negative) RSV RNA Qual (PCR) NEGATIVE (Negative) SARS-CoV-2 RNA (RT-PCR) NEGATIVE (Negative) 02/27/24 Range/Units 05:08 WBC (4.8-10.8) X10*3/uL RBC (4.20-5.50) X10*6/uL Hgb (12.0-16.0) g/dl Hct (37.0-47.0) % MCV (80.0-98.0) fL MCH (27.0-33.0) pg MCHC (31.0-35.0) g/dl RDW (11.0-16.0) % Plt Count (160-400) X10*3/uL MPV (9.4-12.3) fL Immature Gran % (Auto) (0.0-0.4) % Neut % (Auto) (45-73) % Lymph % (Auto) (20-40) % Holmes % (Auto) (2-11) % Eos % (Auto) (0-4) % Baso % (Auto) (0-2) % Lymph # (Auto) (1.2-4.9) X10*3/uL Holmes # (Auto) (0.1-1.2) X10*3/uL Eos # (Auto) (0.0-0.4) X10*3/uL Baso # (Auto) (0.0-0.2) X10*3/uL Abs Immat Gran (auto) (0.00-0.03) X10*3/uL Absolute Neuts (auto) (2.0-8.3) x10*3/uL Absolute Nucleated RBC (0.0-0.012) X10*3/uL Nucleated RBC % (auto) (0.0-0.2) /100WBC VBG pH 7.42 (7.32-7.43) VBG pCO2 49 mmHg VBG pO2 70 mmHg VBG HCO3 32 H (22-26) mmol/L VBG O2 Saturation 98.0 % VBG Base Excess 6.7 mmol/L Sodium (135-145) mmol/L Potassium (3.3-5.1) mmol/L Chloride (96-108) mmol/L Carbon Dioxide (22-29) mmol/L Anion Gap (12-20) BUN (9-16) mg/dL Creatinine (0.5-1.4) mg/dL Estim Creat Clear Calc Estimated GFR Random Glucose (60-115) mg/dL Lactic Acid (0.5-2.0) mmol/L Calcium (8.4-10.2) mg/dL Total Bilirubin (0.0-1.0) mg/dL AST (5-31) U/L ALT (0-31) U/L Alkaline Phosphatase (39-117) U/L Troponin I High Sens (<3.5-17.0) ng/L B-Natriuretic Peptide (<100) pg/mL Total Protein (6.5-8.0) g/dL Albumin (3.5-5.0) g/dL Influenza Type A (PCR) (Negative) Influenza Type B (PCR) (Negative) RSV RNA Qual (PCR) (Negative) SARS-CoV-2 RNA (RT-PCR) (Negative) Independent Interpretation I performed an independent interpretation of an: EKG Interpretation: Normal sinus rhythm heart rate 92 beats per minute no acute STT wave changes no acute ST elevation no acute ischemia Critical Care Time Critical Care Time Critical Care Time: Yes Total Critical Care Time: 55 Attestation: The patient was critically ill with a high probability of imminent or life threatening deterioration. I spent greater than 60???minutes of discontinuous time evaluating the patient,delivering critical care at the bedside, discussing and evaluating pertinent data with consultants. Critical care time does not include time spent performing separately billable procedures or teaching. Total time spent performing critical care was 55???minutes. Discharge Plan Discharge Clinical Impression: Acute exacerbation of chronic obstructive airways disease, Acute and chronic respiratory failure with hypoxia, Diabetes mellitus with hyperglycemia, Tobacco dependence due to cigarettes Patient Disposition: Admitted As Inpatient Print Language: Montenegrin
[2024-02-27] MEDS: Albuterol Sulfate 7.5 MG, Albuterol Sulfate (0.083%) 2.5 MG 10 MG INHALE (04:59)
[2024-02-27 05:07] LABS: Venous Blood Gas Refer to POC result
[2024-02-27 05:08] LABS: Basophils Absolute Auto 0.1 X10*3/uL (0.0-0.2); Basophils Percent Auto 0.5 % (0-2); Eosinophils Absolute Auto 0.1 X10*3/uL (0.0-0.4); Eosinophils Percent Auto 0.6 % (0-4); Hematocrit 49.1 % (37.0-47.0); Hemoglobin 15.9 g/dl (12.0-16.0); Imm Gran Abs Auto 0.11 X10*3/uL (0.00-0.03); Lymphocytes Absolute Auto 0.9 X10*3/uL (1.2-4.9); Lymphocytes Percent Auto 8.5 % (20-40); MANUAL DIFF FLAG NO; Mean Corpuscular HGB Conc 32.4 g/dl (31.0-35.0); Mean Corpuscular Hemoglobin 28.1 pg (27.0-33.0); Mean Corpuscular Volume 86.7 fL (80.0-98.0); Mean Platelet Volume 9.7 fL (9.4-12.3); Monocytes Absolute Auto 0.4 X10*3/uL (0.1-1.2); Monocytes Percent Auto 3.7 % (2-11); Neutrophils Absolute Auto 9.3 x10*3/uL (2.0-8.3); Neutrophils Percent Auto 85.7 % (45-73); Platelet Count 241 X10*3/uL (160-400); Red Blood Count 5.66 X10*6/uL (4.20-5.50); Red Cell Distribution Width 15.3 % (11.0-16.0); White Blood Count 10.9 X10*3/uL (4.8-10.8)
[2024-02-27 05:13] LABS: VBG Base Excess 6.7 mmol/L; VBG HCO3 32 mmol/L (22-26); VBG pCO2 49 mmHg; VBG pH 7.42 (7.32-7.43); VBG pO2 70 mmHg
[2024-02-27 05:21] LABS: Lactic Acid 1.4 mmol/L (0.5-2.0)
[2024-02-27 05:26] LABS: Alanine Aminotransferase 32 U/L (0-31); Albumin Level 3.5 g/dL (3.5-5.0); Alkaline Phosphatase 82 U/L (39-117); Anion Gap 13 (12-20); Aspartate Amino Transferase 43 U/L (5-31); Bilirubin Total 0.5 mg/dL (0.0-1.0); Blood Urea Nitrogen 14 mg/dL (9-16); Calcium 8.9 mg/dL (8.4-10.2); Carbon Dioxide 29 mmol/L (22-29); Chloride 95 mmol/L (96-108); Creatinine Clr Calc Pharmacy 77.4; Estimated Glomerular Filt Rate > 60; Glucose Random 447 mg/dL (60-115); Potassium 5.3 mmol/L (3.3-5.1); Sodium 132 mmol/L (135-145)
[2024-02-27 05:27] LABS: Troponin-I High Sensitivity 16.5 ng/L (<3.5-17.0)
[2024-02-27 05:27] LABS: B Type Natriuretic Peptide 63 pg/mL (<100)
[2024-02-27] MEDS: cefTRIAXone sodium 1 GM VIAL IVPUSH (05:43)
[2024-02-27] MEDS: Insulin Lispro 100 UNIT/ML 3 ML VIAL 14 UNIT SUBCUT (05:43)
[2024-02-27 05:46] LABS: Influenza A PCR NEGATIVE (Negative); Influenza B PCR NEGATIVE (Negative); Resp Syncy Virus RNA Qual PCR NEGATIVE (Negative); SARS COV2 PCR INHOUSE NEGATIVE (Negative)
--- NOTE | 2024-02-27 06:07 | PC.NURSE ---
Pt BIBA from home, Pt reports waking up with increasing SOB, SpO2 reading at home 69% on RA. Pt reports being dx with bronco pneumonia 2 weeks ago, finishing prednisone prescription with no relief. Pt was 89% on RA for EMS, placed on 3L via NC, given 125 mg of solumedrol IM, and one albuterol tx. Lung sounds diminished. While here in the ED pt has received breathing treatment, pt reports some effectiveness. Pt a&ox4, able to speak in full clear sentences, and using bedside commode independently w standby assist. Pt has 20 G IV in RFA. 0525 Lab reported blood glucose of 447, pt received 14 units of insulin lispro and 1 gm of ceftrixone IVpush. Pending UA collection. pt aware urine sample needed
[2024-02-27 07:49] LABS: Glucose, Whole Blood 459 mg/dL (60-115)
[2024-02-27] MEDS: Lactated Ringers 1,000 ML 999 ML IV (08:28)
[2024-02-27 08:39] LABS: Appearance Urine Clear; Color Urine Yellow; Glucose Urine UA >=1000 mg/dL (Negative); Leukocyte Esterase Urine Negative (Negative); Nitrite Urine Negative (Negative); PH 6.5 (5.0-9.0); Specific Gravity - Urine >= 1.030 (1.005-1.025); UMIC TRIGGER UACC YES; Urine Blood Negative (Negative); Urine Ketones Trace mg/dL (Negative); Urine Protein Negative (Neg-Trace)
[2024-02-27 08:56] LABS: Bacteria Urine None Seen (None Seen); Hyaline Casts Urine 0-2 /LPF (0-2); RBC Urine 0-2 /HPF (0-2); Squamous Epithelial Cell Urine 0-2 /HPF (0-2); WBC Urine 0-5 /HPF (0-5)
[2024-02-27 09:02] LABS: Glucose, Whole Blood 463 mg/dL (60-115)
--- NOTE | 2024-02-27 09:12 | P.HPHOSP_ITS ---
History of Present Illness Date of Service: 02/27/24 Chief Complaint: shortness of breath and hypoxia The patient is a 63 year old F with 40+ pack year history of smoking, probable undiagnosed COPD/emphysema, Sjogren's disease, RA, GERD, chronic pain on chronic opiate therapy, diabetes mellitus who presents to the emergency room for the 3rd time in the last 2 weeks with ongoing shortness of breath and hypoxia at home. The patient reports that typically she is able to ambulate in her home without significant distress, however over the last roughly 2 weeks she has had progressive dyspnea with minimal exertion. He reports an intermittently productive cough. She reports easy fatigability and dizziness. She denies any chest pain or syncope. Over the last several weeks, the patient has been treated with prednisone and Levaquin as an outpatient. She has completed her prednisone in the preceding days prior to hospitalization and now reports a return of her symptoms. The patient reports that over the last several days, her home pulse ox readings have been in the 60s and 70s. She states that she has been using Boost oxygen canisters at home intermittently which does improve her symptoms and SpO2. In the ED, the patient arrived 3L supplemental oxygen (pt was 69% on RA when EMS arrived); She was treated with multiple rounds of nebulized bronchodilators and IV solu-medrol. Despite this, remains symptomatic. When her supplemental O2 is removed, she has increasing tachypnea and her saturations drop to the mid 80s. (confirmed by me personally x 2 in the ED). Review of Systems 2 Review of Systems: Negative except HPI/interval history. [facility] Medical History Chronic pain syndrome snf (current) use of opiate analgesic Osteoporosis Sjogrens syndrome Rheumatoid arthritis Osteoarthritis Chronic, continuous use of opioids GERD (gastroesophageal reflux disease) Hx of difficult intubation Smoker COPD (chronic obstructive pulmonary disease) Asthma Polycythemia Boils Eczema Bursitis Disc degeneration Sleep apnea Diabetes Fibromyalgia Family History Mother Polycythemia TIA (transient ischemic attack) Father Heart attack Other No family history of cancer Surgical History History of esophagogastroduodenoscopy (EGD) Hx of tonsillectomy History of surgical removal of pilonidal cyst Hx of plastic surgery Hx of hysterectomy Hx of cholecystectomy Hx of appendectomy History of colonoscopy History of bladder suspension procedure History of removal of cyst Social History Household Members: Spouse and Children Housing: House Are you a primary associate director career services to a significant other at home: No Do you presently have visiting nurse or other home services: No Alcohol intake: never Patient Tobacco Use Status: Current everyday Tobacco user Tobacco use type: Cigarette Cigarette Packs Per Day: 1 Cigarettes Per Day: 20.0 Years Smoked: 46 Smoked in Last 30 Days: Yes e-Cigarette/Vaping Use: Never Used Second Hand Smoke Exposure: Yes Use of substances other than those prescribed or required for medical reasons: No Advance Directives: Yes Advance Directives on File: Yes Advance Directives Date on File: 12/24/19 service: No Current occupational status: retired 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 Cognitive needs: No Hearing needs: No Vision needs: No Meds Allergies Allergy/AdvReac Type Severity Reaction Status Date / Time atorvastatin [From LIPITOR] Allergy Severe Difficulty Verified 02/27/24 04:00 Breathing azithromycin [AZITHROMYCIN] Allergy Severe Difficulty Verified 02/27/24 04:00 Breathing mite-Dermatophagoides Allergy Severe Difficulty Verified 02/27/24 04:00 farinae, vicente Breathing [dust mite - [place]] sumatriptan [From IMITREX] Allergy Severe Difficulty Verified 02/27/24 04:00 Breathing house dust Allergy Mild Unknown Verified 02/27/24 04:00 acetaminophen [From TYLENOL] Allergy Unknown Itching Verified 02/27/24 04:00 adhesive tape [ADHESIVE TAPE] Allergy Unknown Rash Verified 02/27/24 04:00 gentamicin [GENTAMICIN] Allergy Unknown Rash Verified 02/27/24 04:00 adalimumab [From Humira] Allergy Rash Verified 02/27/24 04:00 erythromycin base Allergy Unknown Verified 02/27/24 04:00 haloperidol [From HALDOL] AdvReac Unknown GI Issues Verified 02/27/24 04:00 ketorolac [From TORADOL] AdvReac Unknown Muscle Verified 02/27/24 04:00 cramps prasterone (DHEA) [From DHEA] AdvReac Unknown Cardiac Verified 02/27/24 04:00 issues varenicline [From CHANTIX] AdvReac Unknown Seizure Verified 02/27/24 04:00 ipratropium [From Atrovent] AdvReac Migraine Verified 02/27/24 04:00 Active Medications: Current Medications Albuterol Sulfate (Albuterol Sulfate (0.083%) 2.5 Mg/3 Ml Vial.Neb) 2.5 mg INHALE RQ4H WHILE AWAKE [facility] Calcium Carbonate (Calcium Carbonate 750 Mg Tab.Chew) 750 mg PO Q4H PRN PRN Reason: Heartburn Lactated Ringer's (Lr) 1,000 mls @ 999 mls/hr IV .Q1H1M BETSEY Stop: 02/27/24 09:30 Last Admin: 02/27/24 08:28 Dose: 999 mls/hr Magnesium Hydroxide (Milk Of Magnesia 30 Ml Oral.Susp) 30 ml PO DAILY PRN PRN Reason: Constipation Melatonin (Melatonin 3 Mg Tablet) 6 mg PO BEDTIME PRN PRN Reason: Insomnia Methylprednisolone Sodium Succinate (Methylprednisolone Sod Succ 40 Mg/Ml Vial) 40 mg IVPUSH Q8H [facility] Sodium Chloride (0.9 % Sodium Chloride Flush 3 Ml Syringe) 3 ml IVFLUSH QSHIFT [facility] Home Medications ?Medication ?Instructions ?Recorded ?Confirmed ?Last Taken ?Type aspirin 325 mg tablet 325 mg PO 1230 09/27/20 02/27/24 02/27/24 History loratadine 10 mg tablet 10 mg PO 0030 09/27/20 02/27/24 02/27/24 History hyoscyamine sulfate 0.125 mg tablet 0.125 mg PO DAILY 07/03/23 02/27/24 02/27/24 History insulin lispro 100 unit/mL 30 unit subcut TID 02/27/24 02/27/24 02/27/24 History subcutaneous pen (Humalog KwikPen (U-100) Insulin) ondansetron 8 mg disintegrating 8 mg PO Q12H 02/27/24 02/27/24 02/27/24 History tablet pantoprazole 40 mg tablet,delayed 40 mg PO BID@0630,1630 02/27/24 02/27/24 02/27/24 History release umeclidinium 62.5 mcg-vilanterol 1 ea inhalation DAILY PRN 02/27/24 02/27/24 02/27/24 History 25 mcg/actuation powdr for Shortness Of Breath Or Wheezing inhalation (Anoro Ellipta) Physical Exam 2 Vital Signs and Narrative: Vital Signs: Last Vital Signs Temp 98.1 F 02/27/24 07:47 Pulse 88 02/27/24 07:47 Resp 12 02/27/24 07:47 BP 128/70 02/27/24 07:47 Pulse Ox 94 02/27/24 07:47 O2 Del Method Room Air 02/27/24 07:47 O2 Flow Rate 4 02/27/24 06:03 Oxygen Flow Rate 3 02/27/24 03:56 BMI result Body Mass Index 38.9 Const: Other: Constitutional - Awake and Alert, No apparent distress while on supplemental O2; tachypnea when tapered off; sats 92-94 on 3L; decrease to 84-86% on RA Eyes - PERRLA, EOMI Cardiovascular - S1S2, RRR, No edema Respiratory - poor air entry globally Gastrointestinal - NT / ND; +BS; No rebound or guarding - No CVA tenderness Extremities - LLE swelling 3+; RLE wnl Musculoskeletal - Normal inspection, normal ROM Skin - Warm/Dry Neurological - Alert & oriented x3, No focal deficit Psychological - Appropriate affect Results Labs 02/27/24 04:59 02/27/24 04:59 Labs: Laboratory Results - last 24 hr 02/27/24 02/27/24 02/27/24 04:41 04:58 04:59 MCV 86.7 MCH 28.1 MCHC 32.4 RDW 15.3 Plt Count 241 MPV 9.7 Immature Gran % (Auto) 1.0 H Neut % (Auto) 85.7 H Lymph % (Auto) 8.5 L Garvin % (Auto) 3.7 Eos % (Auto) 0.6 Baso % (Auto) 0.5 Lymph # (Auto) 0.9 L Garvin # (Auto) 0.4 Eos # (Auto) 0.1 Baso # (Auto) 0.1 Abs Immat Gran (auto) 0.11 H Absolute Neuts (auto) 9.3 H Absolute Nucleated RBC 0.000 Nucleated RBC % (auto) 0.0 VBG pH VBG pCO2 VBG pO2 VBG HCO3 VBG O2 Saturation VBG Base Excess Anion Gap 13 Estim Creat Clear Calc 77.4 Estimated GFR > 60 POC Glucose 463 H* Random Glucose 447 H* Lactic Acid 1.4 Calcium 8.9 Total Bilirubin 0.5 AST 43 H ALT 32 H Alkaline Phosphatase 82 Troponin I High Sens 16.5 D B-Natriuretic Peptide Total Protein 7.0 Albumin 3.5 Urine Color Urine Appearance Urine pH Ur Specific [place] Urine Protein Urine Glucose (UA) Urine Ketones Urine Blood Urine Nitrite Ur Leukocyte Esterase Urine RBC Urine WBC Ur Squamous Epith Cells Urine Bacteria Hyaline Casts Influenza Type A (PCR) NEGATIVE Influenza Type B (PCR) NEGATIVE RSV RNA Qual (PCR) NEGATIVE SARS-CoV-2 RNA (RT-PCR) NEGATIVE 02/27/24 02/27/24 02/27/24 05:00 05:08 07:41 MCV MCH MCHC RDW Plt Count MPV Immature Gran % (Auto) Neut % (Auto) Lymph % (Auto) Garvin % (Auto) Eos % (Auto) Baso % (Auto) Lymph # (Auto) Garvin # (Auto) Eos # (Auto) Baso # (Auto) Abs Immat Gran (auto) Absolute Neuts (auto) Absolute Nucleated RBC Nucleated RBC % (auto) VBG pH 7.42 VBG pCO2 49 VBG pO2 70 VBG HCO3 32 H VBG O2 Saturation 98.0 VBG Base Excess 6.7 Anion Gap Estim Creat Clear Calc Estimated GFR POC Glucose 459 H* Random Glucose Lactic Acid Calcium Total Bilirubin AST ALT Alkaline Phosphatase Troponin I High Sens B-Natriuretic Peptide 63 Total Protein Albumin Urine Color Urine Appearance Urine pH Ur Specific [place] Urine Protein Urine Glucose (UA) Urine Ketones Urine Blood Urine Nitrite Ur Leukocyte Esterase Urine RBC Urine WBC Ur Squamous Epith Cells Urine Bacteria Hyaline Casts Influenza Type A (PCR) Influenza Type B (PCR) RSV RNA Qual (PCR) SARS-CoV-2 RNA (RT-PCR) 02/27/24 08:30 MCV MCH MCHC RDW Plt Count MPV Immature Gran % (Auto) Neut % (Auto) Lymph % (Auto) Garvin % (Auto) Eos % (Auto) Baso % (Auto) Lymph # (Auto) Garvin # (Auto) Eos # (Auto) Baso # (Auto) Abs Immat Gran (auto) Absolute Neuts (auto) Absolute Nucleated RBC Nucleated RBC % (auto) VBG pH VBG pCO2 VBG pO2 VBG HCO3 VBG O2 Saturation VBG Base Excess Anion Gap Estim Creat Clear Calc Estimated GFR POC Glucose Random Glucose Lactic Acid Calcium Total Bilirubin AST ALT Alkaline Phosphatase Troponin I High Sens B-Natriuretic Peptide Total Protein Albumin Urine Color Yellow Urine Appearance Clear Urine pH 6.5 Ur Specific [place] >= 1.030 H Urine Protein Negative Urine Glucose (UA) >=1000 H Urine Ketones Trace Urine Blood Negative Urine Nitrite Negative Ur Leukocyte Esterase Negative Urine RBC 0-2 Urine WBC 0-5 Ur Squamous Epith Cells 0-2 Urine Bacteria None Seen Hyaline Casts 0-2 Influenza Type A (PCR) Influenza Type B (PCR) RSV RNA Qual (PCR) SARS-CoV-2 RNA (RT-PCR) Assessment and Plan (1) Acute exacerbation of chronic obstructive airways disease: Status: Acute Plan 63 yo F with probably undiagnosed COPD who presents to the ED with a 2 week history of shortness of breath. She has completed a week of prednisone + antibiotics but remains symptomatic. She will be admitted for further care. 1. Acute respiratory failure with hypoxia 1a. likely due to underlying, undiagonsed COPD exacerbation (40+ pack year history of tobacco smoking + prior CT imaging showing emphysematous changes) will treat with IV solu-medrol + scheduled nebulized bronchodilators; recently treated with antibiotics, will hold off on further rule out PE -- CTA ordered will evaluated for cardiac etiologies with 2d ECHO continue supplemental O2 with a goal of 90-92% Tobacco cessation is encouraged 2. Uncontrolled DM with hyperglycemia on metformin + meal time insulin (30 units TID) + long acting (she states she hasnt been able to get this for 1-2 weeks now) will hold orals -- start sliding scale + 10 units scheduled add lantus for now last A1C in nov was 8.4; will check one now 3. Tobacco use current smoker cessation advised 4. Morbid obesity likely playing a role in her respiratory symptoms outpatient weight mgmt 5. History of sjogrens/RA continue her bseline meds 6. GERD PPI 7. HTN continue amlodipine/losartan 8. Chronic pain continue MS contin + oxycodone for breakthrough 9. Polycythenia ? on high dose asa for this? will continue Full Code DVT pptx, Lovenox Quality Stroke Does the patient have a stroke diagnosis?: No VTE Prior VTE?: No VTE Risk Level:: Medical - moderate - high VTE Device Contraindication: N/A - Device Ordered VTE Drug Contraindication: N/A - Med Ordered
--- NOTE | 2024-02-27 09:24 | PHA.MEDREC ---
Addendum entered by Clarissa Lazaro [facility] 02/27/24 11:41: ADJUSTED TIME ON MORPHINE ER HOME MEDICATION PER PATIENT REQUEST TO DEXTER SHI IN ED. PATIENT STATES THAT SHE TAKES MORPHINE AT HOME AT 0030 AND 1230 DAILY. Addendum entered by Shaina Estrada [facility] 02/27/24 10:02: Reviewed by [facility] Original Note: Pharmacy Consult ? Medication Reconciliation Pharmacy has completed the medication reconciliation. Spoke to patient and at bedside to confirm med list. Patient states she is no longer taking Fluorouracil 5% cream, Levofloxacin 750 mg, and Prednisone 10 mg taper ( finished yesterday) Tresiba FlexTouch pen last filled 09/06/23 for 30 days. Patient states she was taking lantus , however the doctor changed her to Tresiba Flextouch. patient filled one time then it wasn't covered by her insurance. Patient confirmed Humalog KwikPen 30 units Tid. last time patient took her medication was today at 12:00 am.
[2024-02-27 10:02] LABS: Glucose, Whole Blood 460 mg/dL (60-115)
[2024-02-27 10:10] LABS: Estimated Average Glucose 180 mg/dL; Hemoglobin A1C 284.9807 umol/L; Hemoglobin A1c % 7.9 % (<6.0); Total Hemoglobin (HGBA1C) 4519.5262 umol/L
[2024-02-27] MEDS: oxyCODONE HCl Immed Release 5 MG TABLET 10 MG PO ×3 (10:28→22:51)
[2024-02-27] MEDS: methylPREDNISolone Sod Succ 40 MG/ML VIAL IVPUSH ×2 (10:29→18:38)
[2024-02-27] MEDS: Insulin Lispro 100 UNIT/ML 3 ML VIAL 15 UNIT SUBCUT (10:30)
[2024-02-27] MEDS: Insulin Glargine,Hum.rec.anlog 100 UNIT/ML 10 ML VIAL 15 UNIT SUBCUT ×2 (10:30→15:00)
[2024-02-27] MEDS: Albuterol Sulfate (0.083%) 2.5 MG/3 ML VIAL.NEB INHALE ×3 (11:59→19:34)
--- NOTE | 2024-02-27 12:49 | PC.NURSE ---
Pt arrived in OV unit aprox 12:20. Is Axox3, able to transfer w/o SOB to bed while using 4L NC. Skin PWD. no complaints at this time. Pt is able to state needs and awaits bed assignment.
[2024-02-27 13:10] LABS: Glucose, Whole Blood 418 mg/dL (60-115)
--- NOTE | 2024-02-27 13:21 | MHC.EDTECH ---
pt POC taken (result: 418), RN aware, assisted to bedside commode, able to void, lunch tray provided, pt is now resting comfortably
[2024-02-27] MEDS: Insulin Lispro 100 UNIT/ML 3 ML VIAL SUBCUT ×3 (13:27→21:07)
[2024-02-27] MEDS: Insulin Lispro 100 UNIT/ML 3 ML VIAL 10 UNIT SUBCUT ×4 (13:28→22:52)
[2024-02-27 14:31] LABS: Glucose, Whole Blood 403 mg/dL (60-115)
[2024-02-27] MEDS: Morphine Sulfate ER 30 MG TABLET.ER PO (14:55)
[2024-02-27] MEDS: Aspirin 325 MG TABLET PO (14:55)
--- NOTE | 2024-02-27 16:00 | CA_ITS ---
Transthoracic Echocardiogram Patient (Last, First, Middle): Lashon Parra, Gender: Female Date of : 1960 Age: 63 Procedure Date: 02/27/2024 Procedure Type: Transthoracic Echocardiogram Location: ER Height: 162.56 cm Weight: 102.51 kg BSA: 2.06 m2 Heart Rate: 77 bpm BP: 143 / 64 mmHg Plastic Roller: EMMANUEL Referring MD: Redd Burciaga MD Symptoms: exertional dyspnea Study Quality: Fair ECG Rhythm: Sinus Conclusions: - The left ventricular systolic function is hyperdynamic. The visually estimated ejection fraction is >70%. - No obvious valvular pathology seen on this study. Findings Procedure Information Contrast agent, definity, is being given per protocol without apparent complications. Left Ventricle Normal left ventricular cavity size. There is mildly increased left ventricular wall thickness. The left ventricular systolic function is hyperdynamic. The visually estimated ejection fraction is >70%. There is no evidence of regional wall motion abnormalities. Diastolic function is normal for age. Right Ventricle Mildly increased right ventricular cavity size. There is normal right ventricular systolic function. Atria Both atria are normal in size. Aortic Valve There is a normal trileaflet aortic valve. There is no aortic valve stenosis. There is no aortic valve regurgitation. Mitral Valve The mitral valve appears normal. There is no mitral valve regurgitation. There is no mitral valve stenosis. Pulmonic Valve The pulmonic valve is likely normal. Tricuspid Valve There is trace tricuspid valve regurgitation. Tricuspid regurgitation envelope is inadequate for calculation of right ventricular systolic pressure. Great Vessels The asc aorta is normal in size. Small plaque is seen in the sino tubular ridge. Venous The inferior vena cava is dilated and collapses less than 50% with inspiration. Pericardium/Pleural There is no evidence of pericardial effusion. Prior Study Comparison No significant change compared to prior study dated: 07/16/2023. Recommendations, Care & Conclusions No obvious valvular pathology seen on this study. Measurements 2D Linear Measurements IVSd: 1.26 0.6-0.9/0.6-1.0 cm LVIDd: 4.79 3.9-5.3/4.2-5.9 cm LVIDd Index: 2.33 2.4-3.2/2.2-3.1 cm/m2 LVIDs: 2.52 2.0-3.6 cm LVPWd: 1.16 0.7-1.1 cm LA Diam: 3.60 2.7-3.8/3.0-4.0 cm LAIDs Index: 1.75 1.5-2.3 cm/m2 LV Mass: 275.50 67-162/88-224 g LV Mass Index: 133.74 43-95/49-115 g/m2 LVOT Diam: 1.90 3.0+(-)1.3 cm 2D Systolic Function EF 4C: 75.00 >55% EF 2C: 85.40 >55% EF BiP: 80.30 >55% Mitral Valve MV Pk E: 1.05 MV PK A: 1.08 MV Decel Time: 176.00 E/A: 1.00 E'Lateral: 6.64 E'Medial: 6.53 E/E' Med: 16.10 E/E' Lat: 15.80 PHT: 52.00 MVA PHT: 4.23 Decel [place]: 5.96 Aortic Valve AoV Pk Kaden: 1.98 AoV Mn Kaden: 1.24 AoV VTI: 0.35 AoV Pk Grad: 16.00 Aov Mn Grad: 7.00 AILIN Cont.VTI: 2.51 LVOT LVOT Pk Kaden: 1.69 LVOT Mn Kaden: 1.04 LVOT VTI: 0.31 LVOT Pk Grad: 11.00 LVOT Mn Grad: 5.00 LVOT Diam: 1.90 LVOT Area: 2.84 Diastolic Function MV Pk E: 1.05 MV Pk A: 1.08 E/A: 1.00 E'Medial: 6.53 E/E' Med: 16.10 E' Laterial: 6.64 E/E' Lat: 15.80 Right Ventricle TAPSE (mm): 28.00 TVS' Kaden: 17.10 Tricuspid Valve RA Press: 15.00 Great Vessels Aorta Sinus of Valsalva: 4.00 2.0-3.5 cm Ao Asc: 3.30 2.1-3.4 cm Pulmonary Valve PV Pk Kaden: 1.18 Peak PV Grad: 6.00 Updated in Other Vendor System with Status of Final Matt Huerta MD electronically signed on 02/27/2024 4:49:25 PM with status of Final
[2024-02-27 16:20] LABS: Glucose, Whole Blood 357 mg/dL (60-115)
[2024-02-27] MEDS: Omeprazole 20 MG CAPSULE.DR PO (16:42)
[2024-02-27] MEDS: 0.9 % Sodium Chloride Flush 3 ML SYRINGE IVFLUSH ×2 (16:44→20:22)
[2024-02-27] MEDS: Nicotine 21 MG PATCH.TD24 TRANSDERMA (20:18)
[2024-02-27] MEDS: Pregabalin 75 MG CAPSULE PO (20:18)
[2024-02-27] MEDS: Magnesium Oxide 400 MG TABLET PO (20:18)
[2024-02-27] MEDS: Cyclobenzaprine HCl 5 MG TABLET PO (20:18)
[2024-02-27 20:27] LABS: Glucose, Whole Blood 393 mg/dL (60-115)
--- NOTE | 2024-02-27 21:00 | PC.NURSE ---
Addendum entered by Rolanda Ross RN 02/28/24 05:49: Late Entry: 0044: POC: 359, Dr. Leal made aware, New orders placed, Meds given per MAR Addendum entered by Rolanda Ross RN 02/28/24 05:46: Late Entry: 2230: POC: 376, Dr. Leal made aware, New orders placed. Meds given per MAR. Original Note: POC 393, Dr. Leal made aware, New orders placed, Meds given per MAR.
[2024-02-27] MEDS: Diclofenac Sodium Delayed Rel 50 MG TABLET.DR PO (21:06)
[2024-02-27 22:26] LABS: Glucose, Whole Blood 376 mg/dL (60-115)
[2024-02-28] VITALS (8 sets, daily range): BP systolic 130–148; BP diastolic 65–74; PULSE 67–76; RESP 16–18; TEMP 36.2–36.6; O2SAT 93–97
[2024-02-28] MEDS: Morphine Sulfate ER 30 MG TABLET.ER PO ×2 (00:32→12:47)
[2024-02-28] MEDS: Loratadine 10 MG TABLET PO (00:33)
[2024-02-28] MEDS: Montelukast Sodium 10 MG TABLET PO (00:33)
[2024-02-28 00:36] LABS: Glucose, Whole Blood 359 mg/dL (60-115)
[2024-02-28] MEDS: 0.9 % Sodium Chloride 1,000 ML 999 ML IV (01:00)
[2024-02-28] MEDS: Insulin Regular, Human 100 UNIT/ML 10 ML VIAL 8 UNIT IVPUSH (01:31)
[2024-02-28 04:29] LABS: Glucose, Whole Blood 337 mg/dL (60-115)
[2024-02-28] MEDS: Insulin Lispro 100 UNIT/ML 3 ML VIAL SUBCUT ×5 (04:54→20:30)
[2024-02-28] MEDS: oxyCODONE HCl Immed Release 5 MG TABLET 10 MG PO ×4 (05:02→22:40)
[2024-02-28] MEDS: Omeprazole 20 MG CAPSULE.DR PO ×2 (05:23→16:58)
[2024-02-28 06:17] LABS: Hematocrit 49.2 % (37.0-47.0); Hemoglobin 15.3 g/dl (12.0-16.0); Mean Corpuscular HGB Conc 31.1 g/dl (31.0-35.0); Mean Corpuscular Hemoglobin 27.4 pg (27.0-33.0); Mean Platelet Volume 10.6 fL (9.4-12.3); Platelet Count 229 X10*3/uL (160-400); Red Blood Count 5.59 X10*6/uL (4.20-5.50); Red Cell Distribution Width 15.3 % (11.0-16.0)
[2024-02-28 06:37] LABS: Anion Gap 12 (12-20); Blood Urea Nitrogen 18 mg/dL (9-16); Calcium 8.7 mg/dL (8.4-10.2); Carbon Dioxide 26 mmol/L (22-29); Chloride 99 mmol/L (96-108); Creatinine Clr Calc Pharmacy 93.2; Estimated Glomerular Filt Rate > 60; Glucose Random 361 mg/dL (60-115); Potassium 4.3 mmol/L (3.3-5.1); Sodium 133 mmol/L (135-145)
[2024-02-28 07:21] LABS: Glucose, Whole Blood 334 mg/dL (60-115)
[2024-02-28] MEDS: Insulin Lispro 100 UNIT/ML 3 ML VIAL 10 UNIT SUBCUT ×4 (07:25→20:30)
[2024-02-28] MEDS: Pregabalin 75 MG CAPSULE PO ×2 (07:26→20:30)
[2024-02-28] MEDS: 0.9 % Sodium Chloride Flush 3 ML SYRINGE IVFLUSH ×2 (07:26→14:12)
[2024-02-28] MEDS: Pramipexole Di-HCL 1 MG TABLET PO (07:27)
[2024-02-28] MEDS: amLODIPine Besylate 10 MG TABLET PO (07:27)
[2024-02-28] MEDS: Insulin Glargine,Hum.rec.anlog 100 UNIT/ML 10 ML VIAL 30 UNIT SUBCUT (07:27)
[2024-02-28] MEDS: Losartan Potassium 25 MG TABLET PO (07:27)
[2024-02-28] MEDS: Hydroxychloroquine Sulfate 200 MG TABLET PO (07:27)
[2024-02-28] MEDS: Magnesium Oxide 400 MG TABLET PO ×2 (07:27→20:29)
[2024-02-28] MEDS: Nicotine 21 MG PATCH.TD24 TRANSDERMA (07:28)
[2024-02-28] MEDS: methylPREDNISolone Sod Succ 40 MG/ML VIAL 20 MG IVPUSH ×2 (07:28→20:27)
[2024-02-28] MEDS: Albuterol Sulfate (0.083%) 2.5 MG/3 ML VIAL.NEB INHALE ×4 (08:19→20:50)
[2024-02-28] MEDS: Doxycycline Monohydrate 100 MG CAPSULE PO ×2 (08:33→20:28)
[2024-02-28 08:36] LABS: Procalcitonin 0.03 ng/mL
[2024-02-28 09:16] LABS: Troponin-I High Sensitivity 3.5 ng/L (<3.5-17.0)
[2024-02-28 11:23] LABS: Glucose, Whole Blood 236 mg/dL (60-115)
--- NOTE | 2024-02-28 11:29 | MHC.CM.PN ---
pt livew with is on home 02 and cpap pt has her own ride home
[2024-02-28] MEDS: Aspirin 325 MG TABLET PO (12:47)
--- NOTE | 2024-02-28 13:08 | P.PNIM_ITS ---
Subjective Subjective Date of Service: 02/28/24 Interval History: c/o dyspnea cough with clear sputum hypoxic to 88 SaO2 on RA Review of Systems Review of Systems: Yes all other systems are reviewed and are negative Physical Exam 2 Vital Signs: Vital Signs: Last Vital Signs Temp 97.9 F 02/28/24 07:10 Pulse 75 02/28/24 11:40 Resp 18 02/28/24 11:40 BP 148/71 H 02/28/24 07:10 Pulse Ox 97 02/28/24 07:10 O2 Del Method Nasal Cannula 02/28/24 07:10 O2 Flow Rate 4 02/28/24 07:10 Oxygen Flow Rate 3 02/27/24 03:56 BMI result Body Mass Index 38.9 Gen: in no acute distress HEENT: sclera anicteric, moist mucus membranes Neck: supple Lungs: diminished Heart: regular rate and rhythm, no murmurs Abd: soft, non-tender, non-distended Ext: no edema Skin: warm/well-perfused Neuro: alert and oriented x3, no focal findings Psych: appropriate affect Objective Data Active Medications Albuterol Sulfate (Albuterol Sulfate (0.083%) 2.5 Mg/3 Ml Vial.Neb) 2.5 mg INHALE RQ4H WHILE AWAKE [facility] Last Admin: 02/28/24 11:38 Dose: 2.5 mg Documented By: STEVIE Albuterol Sulfate (Albuterol Sulfate (0.083%) 2.5 Mg/3 Ml Vial.Neb) 2.5 mg INHALE Q2H PRN PRN Reason: Shortness of Breath/Wheezing Amlodipine Besylate (Amlodipine Besylate 10 Mg Tablet) 10 mg PO DAILY [facility]; Protocol Last Admin: 02/28/24 07:27 Dose: 10 mg Documented By: ALEXIS Aspirin (Aspirin 325 Mg Tablet) 325 mg PO 1230 [facility] Last Admin: 02/28/24 12:47 Dose: 325 mg Documented By: ALEXIS Calcium Carbonate (Calcium Carbonate 750 Mg Tab.Chew) 750 mg PO Q4H PRN PRN Reason: Heartburn Cyclobenzaprine HCl (Cyclobenzaprine Hcl 5 Mg Tablet) 5 mg PO BID PRN PRN Reason: Pain, Moderate(Pain Scale 4-6) Last Admin: 02/27/24 20:18 Dose: 5 mg Documented By: JERO Diazepam (Diazepam 2 Mg Tablet) 2 mg PO BEDTIME PRN PRN Reason: Anxiety Diclofenac Sodium (Diclofenac Sodium Delayed Rel 50 Mg Tablet.Dr) 50 mg PO BID PRN PRN Reason: Pain, Severe (Pain Scale 7-10) Last Admin: 02/27/24 21:06 Dose: 50 mg Documented By: JERO Doxycycline Monohydrate (Doxycycline Monohydrate 100 Mg Capsule) 100 mg PO Q12H [facility] Last Admin: 02/28/24 08:33 Dose: 100 mg Documented By: ALEXIS Hydroxychloroquine Sulfate (Hydroxychloroquine Sulfate 200 Mg Tablet) 200 mg PO DAILY [facility] Last Admin: 02/28/24 07:27 Dose: 200 mg Documented By: ALEXIS Insulin Glargine (Insulin Glargine,Hum.Rec.Anlog 100 Unit/Ml 10 Ml Vial) 30 unit SUBCUT DAILY [facility] Last Admin: 02/28/24 07:27 Dose: 30 unit Documented By: ALEXIS Insulin Human Lispro (Insulin Lispro 100 Unit/Ml 3 Ml Vial) 10 unit SUBCUT QIDAS [facility] Last Admin: 02/28/24 11:33 Dose: 10 unit Documented By: ALEXIS Insulin Human Lispro (Insulin Lispro 100 Unit/Ml 3 Ml Vial) [address] Protocol Last Admin: 02/28/24 11:34 Dose: 9 unit Documented By: ALEXIS Loratadine (Loratadine 10 Mg Tablet) 10 mg PO DAILY@0000 [facility] Last Admin: 02/28/24 00:33 Dose: 10 mg Documented By: JERO Losartan Potassium (Losartan Potassium 25 Mg Tablet) 25 mg PO DAILY [facility]; Protocol Last Admin: 02/28/24 07:27 Dose: 25 mg Documented By: ALEXIS Magnesium Hydroxide (Milk Of Magnesia 30 Ml Oral.Susp) 30 ml PO DAILY PRN PRN Reason: Constipation Magnesium Oxide (Magnesium Oxide 400 Mg Tablet) 400 mg PO BID [facility] Last Admin: 02/28/24 07:27 Dose: 400 mg Documented By: ALEXIS Melatonin (Melatonin 3 Mg Tablet) 6 mg PO BEDTIME PRN PRN Reason: Insomnia Methylprednisolone Sodium Succinate (Methylprednisolone Sod Succ 40 Mg/Ml Vial) 20 mg IVPUSH BID [facility] Last Admin: 02/28/24 07:28 Dose: 20 mg Documented By: ALEXIS Montelukast Sodium (Montelukast Sodium 10 Mg Tablet) 10 mg PO DAILY@0030 [facility] Last Admin: 02/28/24 00:33 Dose: 10 mg Documented By: JERO Morphine Sulfate (Morphine Sulfate Er 30 Mg Tablet.Er) 30 mg PO BID@0030,1230 [facility] Last Admin: 02/28/24 12:47 Dose: 30 mg Documented By: ALEXIS Nicotine (Nicotine 21 Mg Patch.Td24) 21 mg TRANSDERMA DAILY [facility] Last Admin: 02/28/24 07:28 Dose: 21 mg Documented By: ALEXIS Omeprazole (Omeprazole 20 Mg Capsule.Dr) 20 mg PO BID@0630,1630 [facility] Last Admin: 02/28/24 05:23 Dose: 20 mg Documented By: JERO Oxycodone HCl (Oxycodone Hcl Immed Release 5 Mg Tablet) 10 mg PO QID PRN PRN Reason: Pain, Severe (Pain Scale 7-10) Last Admin: 02/28/24 10:52 Dose: 10 mg Documented By: ALEXIS Pramipexole Dihydrochloride (Pramipexole Di-Hcl 1 Mg Tablet) 1 mg PO DAILY [facility] Last Admin: 02/28/24 07:27 Dose: 1 mg Documented By: ALEXIS Pregabalin (Pregabalin 75 Mg Capsule) 75 mg PO BID [facility] Last Admin: 02/28/24 07:26 Dose: 75 mg Documented By: ALEXIS Sodium Chloride (0.9 % Sodium Chloride Flush 3 Ml Syringe) 3 ml IVFLUSH QSHIFT [facility] Last Admin: 02/28/24 07:26 Dose: 3 ml Documented By: ALEXIS Labs 02/28/24 05:01 02/28/24 05:01 Labs: Laboratory Results - last 24 hr 02/27/24 02/27/24 02/27/24 13:07 14:26 16:16 MCV MCH MCHC RDW Plt Count MPV Absolute Nucleated RBC Nucleated RBC % (auto) Anion Gap Estim Creat Clear Calc Estimated GFR POC Glucose 418 H* 403 H* 357 H* Random Glucose Calcium Troponin I High Sens Procalcitonin 02/27/24 02/27/24 02/28/24 20:14 22:23 00:32 MCV MCH MCHC RDW Plt Count MPV Absolute Nucleated RBC Nucleated RBC % (auto) Anion Gap Estim Creat Clear Calc Estimated GFR POC Glucose 393 H* 376 H* 359 H* Random Glucose Calcium Troponin I High Sens Procalcitonin 02/28/24 02/28/24 02/28/24 04:21 05:01 07:12 MCV 88.0 MCH 27.4 MCHC 31.1 RDW 15.3 Plt Count 229 MPV 10.6 Absolute Nucleated RBC 0.000 Nucleated RBC % (auto) 0.0 Anion Gap 12 Estim Creat Clear Calc 93.2 Estimated GFR > 60 POC Glucose 337 H 334 H Random Glucose 361 H* Calcium 8.7 Troponin I High Sens Procalcitonin 0.03 02/28/24 02/28/24 08:09 11:17 MCV MCH MCHC RDW Plt Count MPV Absolute Nucleated RBC Nucleated RBC % (auto) Anion Gap Estim Creat Clear Calc Estimated GFR POC Glucose 236 H Random Glucose Calcium Troponin I High Sens 3.5 D Procalcitonin ITS Impressions Chest CTA 02/27/24 11:46 IMPRESSION: 1. No evidence of pulmonary embolic disease. Enlarged main pulmonary artery consistent with pulmonary arterial hypertension. 2. Segmental consolidations bilateral lower lobes, worse on the left, with associated small airway thickening, findings consistent with bronchopneumonia. 3. Reactive appearing mediastinal and hilar lymphadenopathy. This is unchanged from prior exams. 4. No evidence of acute aortic syndrome. No aneurysm. 5. Moderate to severe paraseptal emphysema present, with biapical fibrotic changes and mild fibrosis in the right middle lobe and lingula. 6. No suspicious pulmonary nodules within the confines of underlying parenchymal disease. 7. Mild cardiac enlargement. 8. There is fatty infiltration and probable enlargement of the liver. 9. Additional ancillary findings as discussed in the body the report. Electronically signed by: Erik Zimmerman MD 02/27/2024 01:01 PM [facility] Microbiology Microbiology Results: Microbiology 02/27/24 04:58 Blood Culture - Preliminary Blood - Venous No growth after 24 hours. 02/27/24 04:57 Blood Culture - Preliminary Blood - Venous No growth after 24 hours. Assessment and Plan (1) Acute exacerbation of chronic obstructive airways disease: Status: Acute Plan d2 for 63yo F with COPD presenting with 2wk of dyspnea, unrelieved despite taking 1wk of prednisone + antibiotics, admitted with hypoxia AHRF due to COPD exacerbation with PNA - IV methylprednisolone 02/26-, ceftriaxone and doxycycline 02/27-, standing/prn nebs - wean O2 as tolerated tobacco abuse - NRT DM2 with hyperglycemia - basal-bolus insulin CHRONIC ISSUES Sjogren's disease/RA: continue hydroxychloroquine chronic pain: MSSR + oxycodone, pregabalin, diclofenac polycythemia: continue ASA HTN: amlodipine + losartan VTE ppx - enoxaparin dispo - likely home In my clinical judgment, the patient requires continued inpatient hospitalization for the following reasons: hypoxia, IV ABX Total time managing care of this patient today: 45 minutes. Quality Stroke Does the patient have a stroke diagnosis?: No VTE Prior VTE?: No VTE Risk Level:: Medical - moderate - high VTE Device Contraindication: N/A - Device Ordered VTE Drug Contraindication: N/A - Med Ordered
[2024-02-28] MEDS: Enoxaparin Sodium 40 MG/0.4 ML SYRINGE SUBCUT (14:11)
[2024-02-28] MEDS: cefTRIAXone sodium 1 GM VIAL IVPUSH (14:11)
[2024-02-28 16:15] LABS: Glucose, Whole Blood 350 mg/dL (60-115)
[2024-02-28 19:45] LABS: Glucose, Whole Blood 304 mg/dL (60-115)
[2024-02-28] MEDS: Diclofenac Sodium Delayed Rel 50 MG TABLET.DR PO (20:27)
[2024-02-28] MEDS: Cyclobenzaprine HCl 5 MG TABLET PO (20:29)
[2024-02-28] MEDS: Clotrimazole 1 % Cream 15 GM TUBE 1 APPL TOPICAL (23:00)
[2024-02-29] VITALS (9 sets, daily range): BP systolic 133–157; BP diastolic 67–81; PULSE 69–85; RESP 16–20; TEMP 36–36.7; O2SAT 90–97
[2024-02-29] MEDS: 0.9 % Sodium Chloride Flush 3 ML SYRINGE IVFLUSH ×3 (00:41→16:44)
[2024-02-29] MEDS: Loratadine 10 MG TABLET PO ×2 (00:41→22:27)
[2024-02-29] MEDS: Montelukast Sodium 10 MG TABLET PO ×2 (00:42→22:27)
[2024-02-29] MEDS: Morphine Sulfate ER 30 MG TABLET.ER PO ×2 (00:42→12:27)
[2024-02-29] MEDS: Ondansetron ODT 8 MG TAB.RAPDIS TRANSLINGU (01:20)
[2024-02-29] MEDS: Omeprazole 20 MG CAPSULE.DR PO ×2 (06:12→16:43)
[2024-02-29] MEDS: oxyCODONE HCl Immed Release 5 MG TABLET 10 MG PO ×4 (06:16→22:27)
[2024-02-29 07:44] LABS: Glucose, Whole Blood 424 mg/dL (60-115)
[2024-02-29] MEDS: Albuterol Sulfate (0.083%) 2.5 MG/3 ML VIAL.NEB INHALE ×4 (07:45→19:43)
[2024-02-29] MEDS: Nicotine 21 MG PATCH.TD24 TRANSDERMA (08:11)
[2024-02-29] MEDS: methylPREDNISolone Sod Succ 40 MG/ML VIAL 20 MG IVPUSH ×2 (08:11→21:23)
[2024-02-29] MEDS: Insulin Lispro 100 UNIT/ML 3 ML VIAL 10 UNIT SUBCUT ×4 (08:12→21:23)
[2024-02-29] MEDS: Insulin Lispro 100 UNIT/ML 3 ML VIAL SUBCUT ×4 (08:13→21:24)
[2024-02-29] MEDS: Pregabalin 75 MG CAPSULE PO ×2 (08:13→21:24)
[2024-02-29] MEDS: Magnesium Oxide 400 MG TABLET PO ×2 (08:14→21:24)
[2024-02-29] MEDS: amLODIPine Besylate 10 MG TABLET PO (08:14)
[2024-02-29] MEDS: Pramipexole Di-HCL 1 MG TABLET PO (08:14)
[2024-02-29] MEDS: Doxycycline Monohydrate 100 MG CAPSULE PO ×2 (08:14→21:24)
[2024-02-29] MEDS: Losartan Potassium 25 MG TABLET PO (08:14)
[2024-02-29] MEDS: Insulin Glargine,Hum.rec.anlog 100 UNIT/ML 10 ML VIAL 35 UNIT SUBCUT (08:21)
[2024-02-29] MEDS: Clotrimazole 1 % Cream 15 GM TUBE 1 APPL TOPICAL ×3 (08:24→22:10)
[2024-02-29 08:31] LABS: Venous Blood Gas Refer to POC result
[2024-02-29 08:32] LABS: VBG Base Excess 7.2 mmol/L; VBG HCO3 34 mmol/L (22-26); VBG pCO2 58 mmHg; VBG pH 7.38 (7.32-7.43); VBG pO2 46 mmHg
[2024-02-29 09:01] LABS: Anion Gap 14 (12-20); Blood Urea Nitrogen 17 mg/dL (9-16); Calcium 8.7 mg/dL (8.4-10.2); Carbon Dioxide 28 mmol/L (22-29); Chloride 97 mmol/L (96-108); Creatinine Clr Calc Pharmacy 86.2; Estimated Glomerular Filt Rate > 60; Glucose Random 446 mg/dL (60-115); Potassium 4.8 mmol/L (3.3-5.1); Sodium 134 mmol/L (135-145)
[2024-02-29 09:49] LABS: Glucose, Whole Blood 390 mg/dL (60-115)
[2024-02-29 11:34] LABS: Glucose, Whole Blood 359 mg/dL (60-115)
[2024-02-29] MEDS: Aspirin 325 MG TABLET PO (12:28)
--- NOTE | 2024-02-29 13:02 | HO.PM.IMPN ---
Subjective Subjective Date of Service: 02/29/24 Interval History: breating improved; wheezing resolved desaturated to 82% with ambulation Review of Systems Review of Systems: Yes all other systems are reviewed and are negative Physical Exam Vital Signs: Vital Signs: Last Vital Signs Temp 96.9 F 02/29/24 08:08 Pulse 72 02/29/24 11:21 Resp 16 02/29/24 11:21 BP 140/79 H 02/29/24 08:08 Pulse Ox 95 02/29/24 08:08 O2 Del Method Nasal Cannula 02/29/24 08:08 O2 Flow Rate 4 02/29/24 08:08 Oxygen Flow Rate 3 02/27/24 03:56 BMI result Body Mass Index 38.9 Gen: in no acute distress HEENT: sclera anicteric, moist mucus membranes Neck: supple Lungs: diminished Heart: regular rate and rhythm, no murmurs Abd: soft, non-tender, non-distended Ext: no edema Skin: warm/well-perfused Neuro: alert and oriented x3, no focal findings Psych: appropriate affect Objective Data Active Medications Acetaminophen/Butalbital/Caffeine (Butalb/Acetamin/Caff 50/325/40 Tablet) 1 tab PO Q4H PRN PRN Reason: Migraine Headache Albuterol Sulfate (Albuterol Sulfate (0.083%) 2.5 Mg/3 Ml Vial.Neb) 2.5 mg INHALE RQ4H WHILE AWAKE [facility] Last Admin: 02/29/24 11:21 Dose: 2.5 mg Documented By: JOE Albuterol Sulfate (Albuterol Sulfate (0.083%) 2.5 Mg/3 Ml Vial.Neb) 2.5 mg INHALE Q2H PRN PRN Reason: Shortness of Breath/Wheezing Amlodipine Besylate (Amlodipine Besylate 10 Mg Tablet) 10 mg PO DAILY [facility]; Protocol Last Admin: 02/29/24 08:14 Dose: 10 mg Documented By: ALEXIS Aspirin (Aspirin 325 Mg Tablet) 325 mg PO 1230 [facility] Last Admin: 02/29/24 12:28 Dose: 325 mg Documented By: ALEXIS Calcium Carbonate (Calcium Carbonate 750 Mg Tab.Chew) 750 mg PO Q4H PRN PRN Reason: Heartburn Ceftriaxone Sodium (Ceftriaxone Sodium 1 Gm Vial) 1 gm IVPUSH Q24H [facility] Last Admin: 02/28/24 14:11 Dose: 1 gm Documented By: ALEXIS Clotrimazole (Clotrimazole 1 % Cream 15 Gm Tube) 1 appl TOPICAL TID [facility]; Protocol Last Admin: 02/29/24 08:24 Dose: 1 appl Documented By: ALEXIS Cyclobenzaprine HCl (Cyclobenzaprine Hcl 5 Mg Tablet) 5 mg PO BID PRN PRN Reason: Pain, Moderate(Pain Scale 4-6) Last Admin: 02/28/24 20:29 Dose: 5 mg Documented By: JERO Diazepam (Diazepam 2 Mg Tablet) 2 mg PO BEDTIME PRN PRN Reason: Anxiety Diclofenac Sodium (Diclofenac Sodium Delayed Rel 50 Mg Tablet.Dr) 50 mg PO BID PRN PRN Reason: Pain, Severe (Pain Scale 7-10) Last Admin: 02/28/24 20:27 Dose: 50 mg Documented By: JERO Doxycycline Monohydrate (Doxycycline Monohydrate 100 Mg Capsule) 100 mg PO Q12H [facility] Last Admin: 02/29/24 08:14 Dose: 100 mg Documented By: ALEXIS Enoxaparin Sodium (Enoxaparin Sodium 40 Mg/0.4 Ml Syringe) 40 mg SUBCUT Q24H [facility] Last Admin: 02/28/24 14:11 Dose: 40 mg Documented By: ALEXIS Hydroxychloroquine Sulfate (Hydroxychloroquine Sulfate 200 Mg Tablet) 200 mg PO DAILY [facility] Last Admin: 02/29/24 08:14 Dose: Not Given Documented By: ALEXIS Non-Admin Reason: pt refused Insulin Glargine (Insulin Glargine,Hum.Rec.Anlog 100 Unit/Ml 10 Ml Vial) 35 unit SUBCUT DAILY [facility] Last Admin: 02/29/24 08:21 Dose: 35 unit Documented By: ALEXIS Insulin Human Lispro (Insulin Lispro 100 Unit/Ml 3 Ml Vial) 10 unit SUBCUT QIDACHS [facility] Last Admin: 02/29/24 11:39 Dose: 10 unit Documented By: ALEXIS Insulin Human Lispro (Insulin Lispro 100 Unit/Ml 3 Ml Vial) 0 unit SUBCUT QIDACHS [facility]; Protocol Last Admin: 02/29/24 11:39 Dose: 24 unit Documented By: ALEXIS Loratadine (Loratadine 10 Mg Tablet) 10 mg PO DAILY@0000 [facility] Last Admin: 02/29/24 00:41 Dose: 10 mg Documented By: JERO Losartan Potassium (Losartan Potassium 25 Mg Tablet) 25 mg PO DAILY [facility]; Protocol Last Admin: 02/29/24 08:14 Dose: 25 mg Documented By: ALEXIS Magnesium Hydroxide (Milk Of Magnesia 30 Ml Oral.Susp) 30 ml PO DAILY PRN PRN Reason: Constipation Magnesium Oxide (Magnesium Oxide 400 Mg Tablet) 400 mg PO BID [facility] Last Admin: 02/29/24 08:14 Dose: 400 mg Documented By: ALEXIS Melatonin (Melatonin 3 Mg Tablet) 6 mg PO BEDTIME PRN PRN Reason: Insomnia Methylprednisolone Sodium Succinate (Methylprednisolone Sod Succ 40 Mg/Ml Vial) 20 mg IVPUSH BID [facility] Last Admin: 02/29/24 08:11 Dose: 20 mg Documented By: ALEXIS Montelukast Sodium (Montelukast Sodium 10 Mg Tablet) 10 mg PO DAILY@0030 [facility] Last Admin: 02/29/24 00:42 Dose: 10 mg Documented By: JERO Morphine Sulfate (Morphine Sulfate Er 30 Mg Tablet.Er) 30 mg PO BID@0030,1230 [facility] Last Admin: 02/29/24 12:27 Dose: 30 mg Documented By: ALEXIS Nicotine (Nicotine 21 Mg Patch.Td24) 21 mg TRANSDERMA DAILY [facility] Last Admin: 02/29/24 08:11 Dose: 21 mg Documented By: ALEXIS Non-Formulary Medication (Linaclotide) 145 mcg PO DAILY [facility] Omeprazole (Omeprazole 20 Mg Capsule.Dr) 20 mg PO BID@0630,1630 [facility] Last Admin: 02/29/24 06:12 Dose: 20 mg Documented By: JERO Oxycodone HCl (Oxycodone Hcl Immed Release 5 Mg Tablet) 10 mg PO QID PRN PRN Reason: Pain, Severe (Pain Scale 7-10) Last Admin: 02/29/24 12:28 Dose: 10 mg Documented By: ALEXIS Pramipexole Dihydrochloride (Pramipexole Di-Hcl 1 Mg Tablet) 1 mg PO DAILY [facility] Last Admin: 02/29/24 08:14 Dose: 1 mg Documented By: ALEXIS Pregabalin (Pregabalin 75 Mg Capsule) 75 mg PO BID [facility] Last Admin: 02/29/24 08:13 Dose: 75 mg Documented By: ALEXIS Sodium Chloride (0.9 % Sodium Chloride Flush 3 Ml Syringe) 3 ml IVFLUSH QSHIFT [facility] Last Admin: 02/29/24 08:13 Dose: 3 ml Documented By: ALEXIS Labs 02/28/24 05:01 02/29/24 08:18 Labs: Laboratory Results - last 24 hr 02/28/24 02/28/24 02/29/24 16:11 19:42 07:36 VBG pH VBG pCO2 VBG pO2 VBG HCO3 VBG O2 Saturation VBG Base Excess Anion Gap Estim Creat Clear Calc Estimated GFR POC Glucose 350 H* 304 H 424 H* Random Glucose Calcium Beta-Hydroxybutyrate 02/29/24 02/29/24 02/29/24 08:18 08:26 09:45 VBG pH 7.38 VBG pCO2 58 VBG pO2 46 VBG HCO3 34 H VBG O2 Saturation 71.0 VBG Base Excess 7.2 Anion Gap 14 Estim Creat Clear Calc 86.2 Estimated GFR > 60 POC Glucose 390 H* Random Glucose 446 H* Calcium 8.7 Beta-Hydroxybutyrate 0.10 02/29/24 11:29 VBG pH VBG pCO2 VBG pO2 VBG HCO3 VBG O2 Saturation VBG Base Excess Anion Gap Estim Creat Clear Calc Estimated GFR POC Glucose 359 H* Random Glucose Calcium Beta-Hydroxybutyrate Microbiology Microbiology Results: Microbiology 02/27/24 04:58 Blood Culture - Preliminary Blood - Venous No growth after 48 hours. 02/27/24 04:57 Blood Culture - Preliminary Blood - Venous No growth after 48 hours. Assessment and Plan (1) Acute exacerbation of chronic obstructive airways disease: Status: Acute Plan d3 for 63yo F with COPD presenting with 2wk of dyspnea, unrelieved despite taking 1wk of prednisone + antibiotics, admitted with hypoxia AHRF due to COPD exacerbation with PNA - IV methylprednisolone 02/26-, ceftriaxone and doxycycline 02/27-, standing/prn nebs - wean O2 as tolerated; home O2 prior to discharge tobacco abuse - NRT DM2 with hyperglycemia due to steroids - basal-bolus insulin; increase doses - A1c 7.9 CHRONIC ISSUES Sjogren's disease/RA: continue hydroxychloroquine chronic pain: MSSR + oxycodone, pregabalin, diclofenac polycythemia: continue ASA HTN: amlodipine + losartan VTE ppx - enoxaparin dispo - likely home In my clinical judgment, the patient requires continued inpatient hospitalization for the following reasons: hypoxia, IV ABX Total time managing care of this patient today: 35 minutes. Quality Stroke Does the patient have a stroke diagnosis?: No VTE Prior VTE?: No VTE Risk Level:: Medical - moderate - high VTE Device Contraindication: N/A - Device Ordered VTE Drug Contraindication: N/A - Med Ordered
[2024-02-29] MEDS: cefTRIAXone sodium 1 GM VIAL IVPUSH (13:44)
[2024-02-29] MEDS: Enoxaparin Sodium 40 MG/0.4 ML SYRINGE SUBCUT (13:45)
[2024-02-29] MEDS: Cyclobenzaprine HCl 5 MG TABLET PO (13:47)
[2024-02-29 16:30] LABS: Glucose, Whole Blood 328 mg/dL (60-115)
[2024-02-29 20:37] LABS: Glucose, Whole Blood 294 mg/dL (60-115)
[2024-03-01] MEDS: Morphine Sulfate ER 30 MG TABLET.ER PO (00:37)
[2024-03-01] MEDS: 0.9 % Sodium Chloride Flush 3 ML SYRINGE IVFLUSH ×2 (01:12→07:57)
[2024-03-01 01:17] VITALS: PULSE 74; RESP 16; O2SAT 97
[2024-03-01 03:10] VITALS: BP 159/83; PULSE 78; RESP 18; TEMP 36.2; O2SAT 92
[2024-03-01] MEDS: oxyCODONE HCl Immed Release 5 MG TABLET 10 MG PO ×3 (03:23→11:28)
[2024-03-01 03:34] VITALS: PULSE 72; RESP 16; O2SAT 97
[2024-03-01] MEDS: Magnesium Oxide 400 MG TABLET PO (07:12)
[2024-03-01 07:13] VITALS: BP 156/73; PULSE 74; RESP 16; TEMP 36.7; O2SAT 91
[2024-03-01] MEDS: Pregabalin 75 MG CAPSULE PO (07:13)
[2024-03-01] MEDS: Doxycycline Monohydrate 100 MG CAPSULE PO (07:13)
[2024-03-01] MEDS: Pramipexole Di-HCL 1 MG TABLET PO (07:14)
[2024-03-01] MEDS: Losartan Potassium 25 MG TABLET PO (07:21)
[2024-03-01] MEDS: Hydroxychloroquine Sulfate 200 MG TABLET PO (07:21)
[2024-03-01] MEDS: Cyclobenzaprine HCl 5 MG TABLET PO (07:21)
[2024-03-01] MEDS: amLODIPine Besylate 10 MG TABLET PO (07:21)
[2024-03-01 07:42] LABS: Glucose, Whole Blood 355 mg/dL (60-115)
[2024-03-01] MEDS: Insulin Lispro 100 UNIT/ML 3 ML VIAL SUBCUT ×2 (07:54→11:50)
[2024-03-01] MEDS: Insulin Lispro 100 UNIT/ML 3 ML VIAL 10 UNIT SUBCUT ×2 (07:54→11:50)
[2024-03-01] MEDS: methylPREDNISolone Sod Succ 40 MG/ML VIAL 20 MG IVPUSH (07:54)
[2024-03-01] MEDS: Clotrimazole 1 % Cream 15 GM TUBE 1 APPL TOPICAL (07:57)
[2024-03-01] MEDS: Insulin Glargine,Hum.rec.anlog 100 UNIT/ML 10 ML VIAL 35 UNIT SUBCUT (07:58)
[2024-03-01 08:33] VITALS: PULSE 76; O2SAT 86; O2SAT 90
[2024-03-01] MEDS: Nicotine 21 MG PATCH.TD24 TRANSDERMA (10:28)
[2024-03-01] MEDS: Albuterol Sulfate (0.083%) 2.5 MG/3 ML VIAL.NEB INHALE (11:06)
--- NOTE | 2024-03-01 11:07 | W.MHC.F2F ---
Service Date Service Date: 03/01/24 Encounter Date of encounter: 03/01/24 Reasons for Services Signs and symptoms assessed: dyspnea Reason for residential: medication management, medication treatment and teach disease management Reason for physical therapy: home safety and mobility, therapeutic exercises, gait/transfer training, assess need for DME, ADL training, energy conservation and other (pulmonary rehab) MD Overseeing Care: Dottie Douglass Homebound: Leaving the home is medically contraindicated at this time without the asist of a device and/or another person due th the listed conditions above and below. Reason homebound: shortness of breath with minimal effort Certification: Based on the above findings, I certify that this patient is confined to the home and needs intermittent residential care, physical therapy and/or speech therapy, or continues to need occupational therapy. The patient is under my care, and I have initiated the establishment of the plan of care. The patient will be followed by a physician who will periodically review the plan of care. Time Spent With Patient Time: Total time managing care of this patient today ____ minutes.
[2024-03-01 11:10] VITALS: PULSE 81; RESP 20; O2SAT 88
--- NOTE | 2024-03-01 11:18 | P.DS_ITS ---
DS: Providers Provider Date of Service: 03/01/24 Date of admission: 02/27/24 09:06 Date of discharge: 03/01/24 Primary care physician: Dottie Douglass MD Consults: 02/29/24 01:28 Consult to Wound Care Routine Reason for consultation: fungal rash to left elbow DS: Diagnosis Discharge Diagnosis (1) Acute exacerbation of chronic obstructive airways disease: Status: Acute (2) Acute respiratory failure with hypoxia: Status: Acute (3) Pneumonia: Status: Acute DS: Summary Hospital Course Hospital Course: From the history and physical by the admitting hospitalist, Redd Burciaga MD, 02/27/24: The patient is a 63 year old F with 40+ pack year history of smoking, probable undiagnosed COPD/emphysema, Sjogren's disease, RA, GERD, chronic pain on chronic opiate therapy, diabetes mellitus who presents to the emergency room for the 3rd time in the last 2 weeks with ongoing shortness of breath and hypoxia at home. The patient reports that typically she is able to ambulate in her home without significant distress, however over the last roughly 2 weeks she has had progressive dyspnea with minimal exertion. He reports an intermittently productive cough. She reports easy fatigability and dizziness. She denies any chest pain or syncope. Over the last several weeks, the patient has been treated with prednisone and Levaquin as an outpatient. She has completed her prednisone in the preceding days prior to hospitalization and now reports a return of her symptoms. The patient reports that over the last several days, her home pulse ox readings have been in the 60s and 70s. She states that she has been using Boost oxygen canisters at home intermittently which does improve her symptoms and SpO2. In the ED, the patient arrived 3L supplemental oxygen (pt was 69% on RA when EMS arrived); She was treated with multiple rounds of nebulized bronchodilators and IV solu-medrol. Despite this, remains symptomatic. When her supplemental O2 is removed, she has increasing tachypnea and her saturations drop to the mid 80s. (confirmed by me personally x 2 in the ED). d3 for 63yo F with COPD presenting with 2wk of dyspnea, unrelieved despite taking 1wk of prednisone + antibiotics, admitted to the medical-surgical unit with hypoxia. She was treated with IV methylprednisolone and nebulized bronchodilators. She was found bilateral bronchopneumonia and treated with ceftriaxone with doxycycline. Blood cultures negative and influenza/RSV/Covid PCR negative. She was weaned off O2 at rest but did qualify for 3L O2 with ambulation, which was arranged prior to discharge home with VNA services. She was discharged on 3 days of prednisone, cefuroxime, and doxcycyline. She was prescribed NRT and counseled to quit smoking. She should follow up with Primary Care and Pulmonology and undergo overnight oximetry to see if she needs O2 at night in addition to her CPAP. Time Attestation Discharge Coordination Time (in mins): 35 Quality: Safe Use of Opioids Does Pt have an Active Cancer Diagnosis on the Problem List?: No Quality: Stroke Does the patient have a stroke diagnosis?: No Physical Exam Vital Signs: Vital Signs: Last Vital Signs Temp 98.0 F 03/01/24 07:13 Pulse 81 03/01/24 11:10 Resp 20 03/01/24 11:10 BP 156/73 H 03/01/24 07:13 Pulse Ox 91 L 03/01/24 07:13 O2 Del Method Room Air 03/01/24 07:13 O2 Flow Rate 2 03/01/24 03:10 Oxygen Flow Rate 3 02/27/24 03:56 BMI result Body Mass Index 38.9 Gen: in no acute distress HEENT: sclera anicteric, moist mucus membranes Neck: supple Lungs: diminished Heart: regular rate and rhythm, no murmurs Abd: soft, non-tender, non-distended Ext: no edema Skin: warm/well-perfused Neuro: alert and oriented x3, no focal findings Psych: appropriate affect DS: Data Data Completed and Pending Completed studies during hospitalization [Text1]: Laboratory Results WBC 12.0 X10*3/uL (4.8-10.8) H 02/28/24 05:01 RBC 5.59 X10*6/uL (4.20-5.50) H 02/28/24 05:01 Hgb 15.3 g/dl (12.0-16.0) 02/28/24 05:01 Hct 49.2 % (37.0-47.0) H 02/28/24 05:01 MCV 88.0 fL (80.0-98.0) 02/28/24 05:01 MCH 27.4 pg (27.0-33.0) 02/28/24 05:01 MCHC 31.1 g/dl (31.0-35.0) 02/28/24 05:01 RDW 15.3 % (11.0-16.0) 02/28/24 05:01 Plt Count 229 X10*3/uL (160-400) 02/28/24 05:01 MPV 10.6 fL (9.4-12.3) 02/28/24 05:01 Immature Gran % (Auto) 1.0 % (0.0-0.4) H 02/27/24 04:59 Neut % (Auto) 85.7 % (45-73) H 02/27/24 04:59 Lymph % (Auto) 8.5 % (20-40) L 02/27/24 04:59 [place] % (Auto) 3.7 % (2-11) 02/27/24 04:59 Eos % (Auto) 0.6 % (0-4) 02/27/24 04:59 Baso % (Auto) 0.5 % (0-2) 02/27/24 04:59 Lymph # (Auto) 0.9 X10*3/uL (1.2-4.9) L 02/27/24 04:59 [place] # (Auto) 0.4 X10*3/uL (0.1-1.2) 02/27/24 04:59 Eos # (Auto) 0.1 X10*3/uL (0.0-0.4) 02/27/24 04:59 Baso # (Auto) 0.1 X10*3/uL (0.0-0.2) 02/27/24 04:59 Abs Immat Gran (auto) 0.11 X10*3/uL (0.00-0.03) H 02/27/24 04:59 Absolute Neuts (auto) 9.3 x10*3/uL (2.0-8.3) H 02/27/24 04:59 Absolute Nucleated RBC 0.000 X10*3/uL (0.0-0.012) 02/28/24 05:01 Nucleated RBC % (auto) 0.0 /100WBC (0.0-0.2) 02/28/24 05:01 VBG pH 7.38 (7.32-7.43) 02/29/24 08:26 VBG pCO2 58 mmHg 02/29/24 08:26 VBG pO2 46 mmHg 02/29/24 08:26 VBG HCO3 34 mmol/L (22-26) H 02/29/24 08:26 VBG O2 Saturation 71.0 % 02/29/24 08:26 VBG Base Excess 7.2 mmol/L 02/29/24 08:26 Sodium 134 mmol/L (135-145) L 02/29/24 08:18 Potassium 4.8 mmol/L (3.3-5.1) 02/29/24 08:18 Chloride 97 mmol/L (96-108) 02/29/24 08:18 Carbon Dioxide 28 mmol/L (22-29) 02/29/24 08:18 Anion Gap 14 (12-20) 02/29/24 08:18 BUN 17 mg/dL (9-16) H 02/29/24 08:18 Creatinine 0.79 mg/dL (0.5-1.4) 02/29/24 08:18 Estim Creat Clear Calc 86.2 02/29/24 08:18 Estimated GFR > 60 02/29/24 08:18 POC Glucose 285 mg/dL (60-115) H 03/01/24 11:17 Random Glucose 446 mg/dL (60-115) H* 02/29/24 08:18 Estimat Average Glucose 180 mg/dL 02/27/24 05:07 Hemoglobin A1c % 7.9 % (<6.0) H 02/27/24 05:07 Lactic Acid 1.4 mmol/L (0.5-2.0) 02/27/24 04:59 Calcium 8.7 mg/dL (8.4-10.2) 02/29/24 08:18 Total Bilirubin 0.5 mg/dL (0.0-1.0) 02/27/24 04:59 AST 43 U/L (5-31) H 02/27/24 04:59 ALT 32 U/L (0-31) H 02/27/24 04:59 Alkaline Phosphatase 82 U/L (39-117) 02/27/24 04:59 Troponin I High Sens 3.5 ng/L (<3.5-17.0) D 02/28/24 08:09 B-Natriuretic Peptide 63 pg/mL (<100) 02/27/24 05:00 Total Protein 7.0 g/dL (6.5-8.0) 02/27/24 04:59 Albumin 3.5 g/dL (3.5-5.0) 02/27/24 04:59 Beta-Hydroxybutyrate 0.10 mmol/L (0.02-0.27) 02/29/24 08:18 Procalcitonin 0.03 ng/mL 02/28/24 05:01 Urine Color Yellow 02/27/24 08:30 Urine Appearance Clear 02/27/24 08:30 Urine pH 6.5 (5.0-9.0) 02/27/24 08:30 Ur Specific [place] >= 1.030 (1.005-1.025) H 02/27/24 08:30 Urine Protein Negative mg/dL (Neg-Trace) 02/27/24 08:30 Urine Glucose (UA) >=1000 mg/dL (Negative) H 02/27/24 08:30 Urine Ketones Trace mg/dL (Negative) 02/27/24 08:30 Urine Blood Negative (Negative) 02/27/24 08:30 Urine Nitrite Negative (Negative) 02/27/24 08:30 Ur Leukocyte Esterase Negative (Negative) 02/27/24 08:30 Urine RBC 0-2 /HPF (0-2) 02/27/24 08:30 Urine WBC 0-5 /HPF (0-5) 02/27/24 08:30 Ur Squamous Epith Cells 0-2 /HPF (0-2) 02/27/24 08:30 Urine Bacteria None Seen (None Seen) 02/27/24 08:30 Hyaline Casts 0-2 /LPF (0-2) 02/27/24 08:30 Influenza Type A (PCR) NEGATIVE (Negative) 02/27/24 04:58 Influenza Type B (PCR) NEGATIVE (Negative) 02/27/24 04:58 RSV RNA Qual (PCR) NEGATIVE (Negative) 02/27/24 04:58 SARS-CoV-2 RNA (RT-PCR) NEGATIVE (Negative) 02/27/24 04:58 Impressions Chest CTA 02/27/24 11:46 IMPRESSION: 1. No evidence of pulmonary embolic disease. Enlarged main pulmonary artery consistent with pulmonary arterial hypertension. 2. Segmental consolidations bilateral lower lobes, worse on the left, with associated small airway thickening, findings consistent with bronchopneumonia. 3. Reactive appearing mediastinal and hilar lymphadenopathy. This is unchanged from prior exams. 4. No evidence of acute aortic syndrome. No aneurysm. 5. Moderate to severe paraseptal emphysema present, with biapical fibrotic changes and mild fibrosis in the right middle lobe and lingula. 6. No suspicious pulmonary nodules within the confines of underlying parenchymal disease. 7. Mild cardiac enlargement. 8. There is fatty infiltration and probable enlargement of the liver. 9. Additional ancillary findings as discussed in the body the report. Electronically signed by: Erik Zimmerman MD 02/27/2024 01:01 PM [facility] [place] Discharge Anticipated Discharge Date/Time: 03/01/24 11:10 Patient Disposition: Home Health Service Discharge Diagnosis: hypoxia due to COPD and pneumonia Referrals: Dottie Douglass MD [Primary Care Provider] - 1 Week Jean Pierre Nevarez MD [Physician] - 2 Weeks Discharge Medications: New doxycycline monohydrate 100 mg Capsule 100 mg PO Q12H Qty: 6 0RF nicotine 21 mg/24 hr Patch 24 Hour 21 mg transdermal DAILY Qty: 30 0RF cefuroxime axetil 500 mg tablet 500 mg PO BID Qty: 6 0RF prednisone 20 mg tablet 40 mg PO DAILY Qty: 6 0RF Continued montelukast 10 mg tablet 10 mg PO DAILY 90 Days Qty: 90 3RF (DME) blood-glucose meter Kit See Rx Instructions .Route Qty: 1 0RF Rx Instructions: 4 times daily to check blood glucose albuterol sulfate 90 mcg/actuation HFA aerosol inhaler 2 puff PO Q6H PRN (Reason: wheezing) Qty: 8.5 3RF cyclobenzaprine 5 mg tablet 5 mg PO BID PRN (Reason: Pain) 90 Days Qty: 180 3RF diclofenac sodium 75 mg tablet,delayed release (DR/EC) 75 mg PO BID PRN (Reason: Pain) Qty: 180 1RF magnesium oxide 400 mg (241.3 mg magnesium) tablet 400 mg PO BID Qty: 90 3RF metformin 1,000 mg tablet 1,000 mg PO BID 90 Days Qty: 180 3RF mupirocin 2 % ointment 1 appl topical DAILY Qty: 50 3RF diazepam 2 mg tablet 2 mg PO BEDTIME PRN (Reason: Anxiety) 30 Days Qty: 30 1RF pramipexole 0.25 mg tablet 1 mg PO DAILY Qty: 360 3RF linaclotide 145 mcg capsule 145 mcg PO DAILY Qty: 90 1RF clotrimazole [Lotrimin AF (clotrimazole)] 1 % cream 1 appl topical TID Qty: 45 0RF oxycodone 10 mg tablet 10 mg PO QID PRN (Reason: pain) 28 Days Qty: 112 0RF hydroxychloroquine 200 mg tablet 200 mg PO DAILY Qty: 90 3RF kuuexee-jkvipeyqli-BSM-caff 51-80-537-40 mg capsule 1 cap PO QID PRN (Reason: headache) 28 Days Qty: 28 0RF aspirin 325 mg Tablet 325 mg PO DAILY@1230 loratadine 10 mg Tablet 10 mg PO 0030 Eucerin Eczema Relief 1 % cream 1 appl topical TID Qty: 226 0RF insulin lispro [Humalog KwikPen Insulin] 100 unit/mL insulin pen 30 unit subcut TID Anoro Ellipta 62.5-25 mcg/actuation blister with device 1 ea inhalation DAILY PRN (Reason: Shortness Of Breath Or Wheezing) ondansetron 8 mg tablet,disintegrating 8 mg PO Q12H pantoprazole 40 mg tablet,delayed release (DR/EC) 40 mg PO BID@0630,1630 morphine 30 mg tablet extended release 30 mg PO BID@0030,1230 losartan 25 mg tablet 25 mg PO DAILY 90 Days Qty: 90 3RF amlodipine 10 mg tablet 10 mg PO DAILY 90 Days Qty: 90 3RF hyoscyamine sulfate 0.125 mg tablet 0.125 mg PO DAILY naloxone 4 mg/actuation spray,non-aerosol 4 mg intranasal Q2M PRN (Reason: opioid overdose) Qty: 2 0RF Rx Instructions: spray 1 dose into ONE nostril; alternate nostrils w each dose until help arrives pregabalin [Lyrica] 75 mg capsule 75 mg PO BID Qty: 180 3RF (DME) FreeStyle Mag 3 Plus Sensor Device See Rx Instructions .Route Qty: 6 3RF Rx Instructions: As directed (DME) FreeStyle Mag 3 [place] [facility] See Rx Instructions .Route Qty: 1 0RF Rx Instructions: As directed albuterol sulfate 2.5 mg /3 mL (0.083 %) solution for nebulization 2.5 mg inhalation Q4-6H PRN (Reason: shortness of breath or wheezing) Qty: 180 3RF Discharge Orders: Discharge Order (Routine); Ordered 03/01/24 Ordered By: Srini Zuluaga Diet: Diabetic diet Activity on Discharge: As tolerated Stand Alone Forms: Patient Portal Discharge page Print Language: Lao Care Plan Goals: pulmonary health Health Concerns: hypoxia due to COPD and pneumonia Plan of Treatment: oxygen 3L with ambulation. arrange outpatient overnight oximetry test from inspector floor sub assembly to see if you need oxygen with CPAP. take antibiotics for 3 days: - cefuroxime 500 mg twice daily - doxycycline 100 mg twice daily take prednisone 40 mg daily for 3 days stop smoking; use nicotine patch to help quit Please follow up with your primary care doctor within 1 week. Return to the hospital if you experience recurrent or worsening symptoms. Assessment: See Discharge Summary.
[2024-03-01 11:40] LABS: Glucose, Whole Blood 285 mg/dL (60-115)
--- NOTE | 2024-03-01 13:15 | MHC.CM.PN ---
Addendum entered by Flor Gonzalez 03/01/24 14:58: [facility] INDICATED THEY WOULD BE ABLE TO ACCEPT PT, HOWEVER SHE HAS A OUT OF POCKET OF $[id number] OF WHICH ONLY $81.40 HAS BEEN MET. 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
== END 2024-03-01 12:57 | disposition home health service (06) | DRG 190 ==
LOC: HO.ED 06:37 → HO.EDOVER 09:34 → HO.S3 13:55
PROVIDERS: Internal Medicine; Admitting Provider Family Medicine; Emergency Provider Internal Medicine; PCP Internal Medicine; Visit Provider Family Medicine
DX: J44.1 Chronic obstructive pulmonary disease with (acute) exacerbation (principal); J18.9 Pneumonia, unspecified organism; J96.01 Acute respiratory failure with hypoxia; Z71.3 Dietary counseling and surveillance; M06.9 Rheumatoid arthritis, unspecified; M35.00 Sjogren syndrome, unspecified; J44.0 Chronic obstructive pulmonary disease with (acute) lower respiratory infection; E11.65 Type 2 diabetes mellitus with hyperglycemia; E66.01 Morbid (severe) obesity due to excess calories; Z68.38 Body mass index [BMI] 38.0-38.9, adult; K21.9 Gastro-esophageal reflux disease without esophagitis; I10 Essential (primary) hypertension; D75.1 Secondary polycythemia; Z20.822 Contact with and (suspected) exposure to COVID-19; Z79.4 Long term (current) use of insulin; Z79.82 Long term (current) use of aspirin; Z79.84 Long term (current) use of oral hypoglycemic drugs; Z79.899 Other long term (current) drug therapy
CPT/HCPCS: 0241U; 36415; 71045; 71275; 80048; 80053; 81001; 82010; 82803; 82947; 83036; 83605; 83880; 84145; 84484; 85025; 85027; 87040; 93005; 93306; 94640; 94660; 99285; J0696; J1650; J2919; J7120; Q9957

== ENCOUNTER → 2024-02-27 04:20 | Outpatient (BNV) | payer OTHER, SELFPAY | PROVIDERS: Emergency Provider Internal Medicine; PCP Internal Medicine; Visit Provider Specialist | DX: I27.20 Pulmonary hypertension, unspecified (principal); J18.0 Bronchopneumonia, unspecified organism; J43.8 Other emphysema; R06.00 Dyspnea, unspecified | CPT/HCPCS: 71045; 71275 ==

== ENCOUNTER → 2024-02-27 04:31 | Outpatient (BNV) | payer OTHER, SELFPAY | PROVIDERS: Emergency Provider Internal Medicine; PCP Internal Medicine; Visit Provider Internal Medicine | DX: R06.02 Shortness of breath (principal); I44.5 Left posterior fascicular block; R94.31 Abnormal electrocardiogram [ECG] [EKG]; I51.89 Other ill-defined heart diseases | CPT/HCPCS: 93010; 93306 ==

== ENCOUNTER → 2024-02-27 09:06 | Outpatient (BNV) | payer OTHER, SELFPAY | PROVIDERS: Admitting Provider Family Medicine; Emergency Provider Internal Medicine; PCP Internal Medicine; Visit Provider Family Medicine | DX: J44.1 Chronic obstructive pulmonary disease with (acute) exacerbation (principal) | CPT/HCPCS: 99223; 99232 ==

== ENCOUNTER 2024-03-16 07:39 | Emergency (ER) | payer OTHER, SELFPAY ==
--- NOTE | ~2024-03-16 | XR_ITS ---
EXAMINATION: XR CHEST CLINICAL INFORMATION: recent pna, dyspnea COMPARISON: February 27, 2024. TECHNIQUE: 2 views of the chest were obtained. FINDINGS: Pulmonary reticular pattern with prominence of the interstitial markings. No gross pleural effusion or pneumothorax. Cardiomediastinal silhouette is normal in size. Multilevel thoracic spondylosis. Metallic prosthesis, right glenohumeral joint. XR/XR chest 2V IMPRESSION: Consider interstitial edema in the correct clinical settings. Electronically signed by: Filippo Prieto MD 03/16/2024 09:56 AM EST ANNY
--- NOTE | ~2024-03-16 | US_ITS ---
EXAMINATION: US TRIPLEX LOWER EXTREMITY, LEFT CLINICAL INFORMATION: Swelling, pain, Erythema left lower extremity. COMPARISON: 02/13/2024, 03/06/2023. TECHNIQUE: Color-flow triplex imaging with spectral analysis and compression Doppler were performed on the left lower extremity. FINDINGS: Respiratory variation, normal compression and augmented flow are noted throughout the left lower extremity. The visualized common femoral vein, superficial femoral vein, profunda femoral vein, popliteal vein and midcalf peroneal and posterior tibial venous segments show no evidence of deep venous thrombosis. There is no Walton's cyst. There is mild subcutaneous calf edema. US/US venous duplex LE IMPRESSION: No evidence of deep venous thrombosis involving the left lower extremity. Electronically signed by: Erik Zimmerman MD 03/16/2024 10:20 AM RANDY
[2024-03-16 07:49] VITALS: BP 154/72; PULSE 80; O2SAT 93
--- NOTE | 2024-03-16 07:51 | ECG_ITS ---
Test Reason : sob Blood Pressure : */* mmHG Vent. Rate : 94 BPM Atrial Rate : 94 BPM P-R Int : 142 ms QRS Dur : 76 ms QT Int : 342 ms P-R-T Axes : 48 109 50 degrees QTcB Int : 427 ms Normal sinus rhythm Rightward axis Cannot rule out Anterior infarct , age undetermined Abnormal ECG When compared with ECG of 27-Feb-2024 04:31, Minimal criteria for Anterior infarct are now Present Referred By: Generic ED Physician Electronically Signed By: CHULA DANIELLE
[2024-03-16 07:56] VITALS: BP 141/71; PULSE 98; RESP 26; TEMP 37; O2SAT 85; BMI 38.8
--- NOTE | 2024-03-16 08:02 | ED_ITS ---
HPI - General Adult General Chief complaint: Dyspnea Stated complaint: SOB,CHEST TIGHTNESS PER EMS Time Seen by Provider: 03/16/24 07:53 Source: patient, EMS, RN notes reviewed and old records reviewed Mode of arrival: EMS Limitations: no limitations History of Present Illness ED Provider: Edward HPI narrative: Patient is a 63-year-old female with history of Sjogren's disease, IDT2DM, nicotine dependence with 40+ pack year smoking history, RA on hydroxychloroquine, fibromyalgia on longterm opiates, GERD, COPD, asthma, polycythemia, recent admission for pneumonia/acute respiratory failure presenting to the ED with complaint of ongoing shortness of breath, chest tightness and left lower leg swelling and redness. States that she has home O2 but typically does not use this, at rest her oxygen saturation has been around 95%. She reports that recently when getting up to ambulate around her house if she is not wearing oxygen her oxygen saturation drops to 72%. She states that her chest tightness has been present since last . Denies fevers. Complains of ongoing left lower extremity redness, swelling, pain. States that she had a negative ultrasound for the same leg while recently inpatient. MD complaint: shortness of breath, chest pain, leg swelling Treatments prior to arrival: other (home O2) Related Data Home Medications ?Medication ?Instructions ?Recorded ?Confirmed aspirin 325 mg tablet 325 mg PO DAILY@1230 09/27/20 02/27/24 loratadine 10 mg tablet 10 mg PO 0030 09/27/20 02/27/24 hyoscyamine sulfate 0.125 mg tablet 0.125 mg PO DAILY 07/03/23 02/27/24 ondansetron 8 mg disintegrating 8 mg PO Q12H 02/27/24 02/27/24 tablet pantoprazole 40 mg tablet,delayed 40 mg PO BID@0630,1630 02/27/24 02/27/24 release umeclidinium 62.5 mcg-vilanterol 1 ea inhalation DAILY PRN 02/27/24 02/27/24 25 mcg/actuation powdr for Shortness Of Breath Or Wheezing inhalation (Anoro Ellipta) Previous Rx's ?Medication ?Instructions ?Recorded naloxone 4 mg/actuation nasal spray 4 mg intranasal Q2M PRN opioid 08/27/21 overdose #2 ea amlodipine 10 mg tablet 10 mg PO DAILY 90 days #90 tabs 07/03/23 losartan 25 mg tablet 25 mg PO DAILY 90 days #90 tabs 07/03/23 blood-glucose meter #1 ea 08/25/23 montelukast 10 mg tablet 10 mg PO DAILY 90 days #90 tabs 08/25/23 albuterol sulfate 90 mcg/actuation 2 puff PO Q6H PRN wheezing #8.5 08/29/23 aerosol inhaler grams cyclobenzaprine 5 mg tablet 5 mg PO BID PRN Pain 90 days #180 10/29/23 tabs pregabalin 75 mg capsule (Lyrica) 75 mg PO BID #180 caps 11/07/23 diclofenac sodium 75 mg 75 mg PO BID PRN Pain #180 tabs 11/21/23 tablet,delayed release magnesium oxide 400 mg (241.3 mg 400 mg PO BID #90 tabs 12/12/23 magnesium) tablet FreeStyle Mag 3 Plus Sensor #6 ea 12/16/23 (blood-glucose sensor) FreeStyle Mag 3 [place] #1 ea 12/16/23 (blood-glucose meter,continuous) metformin 1,000 mg tablet 1,000 mg PO BID 90 days #180 tabs 12/30/23 colloidal oatmeal 1 % topical 1 appl topical TID #226 grams 01/19/24 cream (Eucerin Eczema Relief) mupirocin 2 % topical ointment 1 appl topical DAILY #50 grams 01/19/24 diazepam 2 mg tablet 2 mg PO BEDTIME PRN Anxiety 30 01/20/24 days #30 tabs pramipexole 0.25 mg tablet 1 mg (4 x 0.25 mg) PO DAILY #360 01/23/24 tabs linaclotide 145 mcg capsule 145 mcg PO DAILY #90 caps 01/27/24 clotrimazole 1 % topical cream 1 appl topical TID #45 grams 02/02/24 (Lotrimin AF (clotrimazole)) hydroxychloroquine 200 mg tablet 200 mg PO DAILY #90 tabs 02/17/24 albuterol sulfate 2.5 mg/3 mL 2.5 mg (3 mL) inhalation Q4-6H PRN 02/20/24 (0.083 %) solution for nebulization shortness of breath or wheezing #180 mL yidaren-sdoshzjxgl-BQE-caffeine 30 1 cap PO QID PRN headache 28 days 02/26/24 mg-50 mg-325 mg-40 mg capsule #28 caps cefuroxime axetil 500 mg tablet 500 mg PO BID #6 tabs 03/01/24 nicotine 21 mg/24 hr daily 21 mg transdermal DAILY #30 ea 03/01/24 transdermal patch prednisone 20 mg tablet 40 mg (2 x 20 mg) PO DAILY #6 tabs 03/01/24 oxycodone 10 mg tablet 10 mg PO QID PRN pain 28 days #112 03/03/24 tabs insulin lispro 100 unit/mL 30 unit (0.3 mL) subcut TID #45 mL 03/09/24 subcutaneous pen (Humalog KwikPen (U-100) Insulin) morphine 30 mg tablet,extended 30 mg PO BID@0030,1230 28 days #56 03/15/24 release tabs Allergies Allergy/AdvReac Type Severity Reaction Status Date / Time atorvastatin [From LIPITOR] Allergy Severe Difficulty Verified 03/16/24 08:00 Breathing azithromycin [AZITHROMYCIN] Allergy Severe Difficulty Verified 03/16/24 08:00 Breathing mite-Dermatophagoides Allergy Severe Difficulty Verified 03/16/24 08:00 farinae, vicente Breathing [dust mite - [place]] sumatriptan [From IMITREX] Allergy Severe Difficulty Verified 03/16/24 08:00 Breathing house dust Allergy Mild Unknown Verified 03/16/24 08:00 acetaminophen [From TYLENOL] Allergy Unknown Itching Verified 03/16/24 08:00 adhesive tape [ADHESIVE TAPE] Allergy Unknown Rash Verified 03/16/24 08:00 gentamicin [GENTAMICIN] Allergy Unknown Rash Verified 03/16/24 08:00 adalimumab [From Humira] Allergy Rash Verified 03/16/24 08:00 erythromycin base Allergy Unknown Verified 03/16/24 08:00 haloperidol [From HALDOL] AdvReac Unknown GI Issues Verified 03/16/24 08:00 ketorolac [From TORADOL] AdvReac Unknown Muscle Verified 03/16/24 08:00 cramps prasterone (DHEA) [From DHEA] AdvReac Unknown Cardiac Verified 03/16/24 08:00 issues varenicline [From CHANTIX] AdvReac Unknown Seizure Verified 03/16/24 08:00 ipratropium [From Atrovent] AdvReac Migraine Verified 03/16/24 08:00 Review of Systems 2 Review of Systems: As per HPI Yes all other systems are reviewed and are negative Constitutional: Constitutional: Reports as per HPI [facility] Past Medical History Medical History Chronic pain 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 Osteoporosis Sjogrens syndrome Rheumatoid arthritis Osteoarthritis Chronic, continuous use of opioids GERD (gastroesophageal reflux disease) Hx of difficult intubation Smoker COPD (chronic obstructive pulmonary disease) Asthma Polycythemia Boils Eczema Bursitis Disc degeneration Sleep apnea Diabetes Fibromyalgia Surgical History History of esophagogastroduodenoscopy (EGD) Hx of tonsillectomy History of surgical removal of pilonidal cyst Hx of plastic surgery Hx of hysterectomy Hx of cholecystectomy Hx of appendectomy History of colonoscopy History of bladder suspension procedure History of removal of cyst Family History Family History Mother Polycythemia TIA (transient ischemic attack) Father Heart attack Other No family history of cancer Social History Social History Household Members: Spouse Housing: House Are you a primary medicare nurse to a significant other at home: No Do you presently have visiting nurse or other home services: No Alcohol intake: never Patient Tobacco Use Status: Current everyday Tobacco user Tobacco use type: Cigarette Cigarette Packs Per Day: 1 Cigarettes Per Day: 20.0 Years Smoked: 46 e-Cigarette/Vaping Use: Never Used Second Hand Smoke Exposure: Yes Advance Directives: Yes Advance Directives on File: Yes Advance Directives Date on File: 12/24/19 service: No Current occupational status: retired 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 Cognitive needs: No Hearing needs: No Vision needs: No Physical Exam ED Vital Signs: Vital Signs - 24 hr 03/16/24 07:56 03/16/24 08:19 Temperature 98.6 F Pulse Rate 98 93 Respiratory Rate 26 H 22 H Blood Pressure 141/71 H 115/68 Pulse Oximetry 85 L 95 Oxygen Delivery Method Nasal Cannula Nasal Cannula Oxygen Flow Rate 4 BMI result Body Mass Index 38.8 Vital signs have been reviewed and appear to be correct. Blood pressure normal. Heart rate normal. Respiratory rate slightly tachypneic. Temperature normal. Oxygen saturation hypoxic on room air, improves to 95% with O2 via NC. Const General: cooperative, no acute distress, alert, awake and ill appearing chronically Nutritional Appearance: obese Orientation/consciousness: oriented to person, oriented to place, oriented to time and patient oriented x3 Limitations: no limitations HENMT Head: Yes normocephalic and Yes atraumatic Ears: hearing grossly normal bilaterally and external ears normal General nose exam: Normal external nose present and Normal nasal mucous membranes and turbinates present Face and sinus: Yes face symmetric Mouth: oropharynx normal and moist mucous membranes Throat: Yes uvula midline Eyes Pupils: Equal, round and reactive pupils present Neck Neck: Yes normal visual inspection and Yes supple Resp Effort & Inspection: normal respiratory effort and able to speak in complete sentences Auscultation: clear to auscultation bilaterally and wheezes inspiratory wheezes (mild) Cardio Rate: regular rate Rhythm: regular rhythm Heart sounds: S1 normal heart sound present and S2 normal heart sound present GI Palpation (GI): Soft to palpation and nontender Auscultation: normoactive bowel sounds General: Yes no CVA tenderness Back/Spine/Pelvis Back: no CVA tenderness Skin General skin exam: elasticity normal and turgor normal Neuro General: oriented to person, oriented to place, oriented to time, patient oriented x3, moves all extremities, no focal motor deficits and CN's II-XI intact bilaterally Cranial nerves: Yes Equal, round and reactive pupils present Cognition (Neuro): normal cognition Extrem General: Yes full ROM, Yes no pedal edema and Yes no calf tenderness Left lower extremity: lower leg Details: erythema and non-pitting edema and foot Details: vascular exam Details: dorsalis pedis pulse present, posterior tibial pulse present and normal capillary refill Psych Mental Status: mental status grossly normal Affect: normal affect Thought process: Normal thought process present Medical Decision Making Medical Decision Making MDM Narrative: Patient is a 63-year-old female with history of Sjogren's disease, IDT2DM, nicotine dependence with 40+ pack year smoking history, RA on hydroxychloroquine, 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 On exam patient is awake, A+Ox3, slightly tachypneic, requiring O2 to maintain adequate oxygen saturation, afebrile, normal neurological exam without focal deficits, physical exam findings as above. Given reported symptoms and physical exam findings, initial differential includes but is not limited to chronic lung disease, DVT, hypoxemia. Labs grossly within normal limits, negative troponin. EKG shows normal sinus rhythm. X-ray chest notable for prominent interstitial markings. U/S of LLE negative for DVT. Leg does not appear acutely cellulitic. My interpretation is in agreement with the radiologist's interpretation. Review of discharge note from recent inpatient stay notes that patient was discharged with oxygen to use with ambulation. Discussed with patient that this is why she was prescribed oxygen for home, and she should be wearing the oxygen while ambulating and also at rest if needed. Patient noted to drop down to 81% on room air while at rest in the ED, however, she is also noted to be leaning forward with head to chest at these times. When patient sits up straight her oxygenation improves with oxygen via NC at 2lpm. Patient evaluated by RT, has a home O2 concentrator as well as O2 for ambulation. Case discussed with Dr. Dietz who feels patient does not meet admission criteria as she has home O2. Patient states that she has an appointment with Dr. Nevarez tomorrow. Feel patient is stable for discharge at this time. Again stressed to patient the importance of monitoring her O2 closely at home and using oxygen or concentrator as needed. Return precautions discussed. Follow up with PCP as well. Patient verbalized understanding of and agreement with plan. Differential Diagnosis Differential Diagnoses: The differential diagnosis associated with the presentation includes As per [facility] Admission/Observation Consideration of admission/observation: Escalation of care including admission/observation considered Patient would have been admitted to the hospital had their work up had any findings where hospital admission was appropriate and their clinical presentation warranted hospital admission. Consult Healthcare Provider Management of the patient was discussed with: Hospitalist (Dr. Dietz) Lab Data [facility] Lab Attestation statement: I reviewed the patient's lab results. As per [facility] 03/16/24 09:36 03/16/24 08:46 Labs: Lab Results 03/16/24 03/16/24 03/16/24 Range/Units 08:46 08:53 09:36 WBC 11.4 H (4.8-10.8) X10*3/uL RBC 5.78 H (4.20-5.50) X10*6/uL Hgb 16.1 H (12.0-16.0) g/dl Hct 49.5 H (37.0-47.0) % MCV 85.6 (80.0-98.0) fL MCH 27.9 (27.0-33.0) pg MCHC 32.5 (31.0-35.0) g/dl RDW 16.3 H (11.0-16.0) % Plt Count 203 (160-400) X10*3/uL MPV 10.1 (9.4-12.3) fL Immature Gran % (Auto) 0.6 H (0.0-0.4) % Neut % (Auto) 73.3 H (45-73) % Lymph % (Auto) 17.5 L (20-40) % [place] % (Auto) 5.6 (2-11) % Eos % (Auto) 2.6 (0-4) % Baso % (Auto) 0.4 (0-2) % Lymph # (Auto) 2.0 (1.2-4.9) X10*3/uL [place] # (Auto) 0.6 (0.1-1.2) X10*3/uL Eos # (Auto) 0.3 (0.0-0.4) X10*3/uL Baso # (Auto) 0.1 (0.0-0.2) X10*3/uL Abs Immat Gran (auto) 0.07 H (0.00-0.03) X10*3/uL Absolute Neuts (auto) 8.3 (2.0-8.3) x10*3/uL Absolute Nucleated RBC 0.000 (0.0-0.012) X10*3/uL Nucleated RBC % (auto) 0.0 (0.0-0.2) /100WBC PT 13.0 H (10.9-12.4) SEC INR 1.1 (0.9-1.1) VBG pH 7.45 H (7.32-7.43) VBG pCO2 34 mmHg VBG pO2 64 mmHg VBG HCO3 24 (22-26) mmol/L VBG O2 Saturation 96.0 % VBG Base Excess 1.1 mmol/L Sodium 136 (135-145) mmol/L Potassium 4.4 (3.3-5.1) mmol/L Chloride 103 (96-108) mmol/L Carbon Dioxide 24 (22-29) mmol/L Anion Gap 13 (12-20) BUN 13 (9-16) mg/dL Creatinine 0.66 (0.5-1.4) mg/dL Estim Creat Clear Calc 103.0 Estimated GFR > 60 Random Glucose 126 H (60-115) mg/dL Calcium 8.7 (8.4-10.2) mg/dL Total Bilirubin 0.3 (0.0-1.0) mg/dL AST 29 (5-31) U/L ALT 28 (0-31) U/L Alkaline Phosphatase 91 (39-117) U/L Troponin I High Sens 7.8 D (<3.5-17.0) ng/L B-Natriuretic Peptide 27 (<100) pg/mL Total Protein 7.7 (6.5-8.0) g/dL Albumin 3.8 (3.5-5.0) g/dL Urine Color Dark Yellow Urine Appearance Clear Urine pH 8.5 (5.0-9.0) Ur Specific [place] 1.025 (1.005-1.025) Urine Protein 30 (1+) H (Neg-Trace) mg/dL Urine Glucose (UA) Negative (Negative) mg/dL Urine Ketones Negative (Negative) mg/dL Urine Blood Negative (Negative) Urine Nitrite Negative (Negative) Ur Leukocyte Esterase Moderate (2+) H (Negative) Urine RBC 0-2 (0-2) /HPF Urine WBC 6-10 H (0-5) /HPF Ur Squamous Epith Cells 6-10 (0-2) /HPF Urine Bacteria None Seen (None Seen) Hyaline Casts 0-2 (0-2) /LPF Influenza Type A (PCR) NEGATIVE (Negative) Influenza Type B (PCR) NEGATIVE (Negative) RSV RNA Qual (PCR) NEGATIVE (Negative) SARS-CoV-2 RNA (RT-PCR) NEGATIVE (Negative) Independent Interpretation I performed an independent interpretation of an: EKG (normal sinus rhythm, rate 94bpm, normal [place] interval and QTc), Plain X-Ray and Ultrasound Interpretation: U/S is without evidence of DVT to left lower extremity. CXR without evidence of ongoing pneumonia. Radiology Impression Discussion of test interpretation with radiology: I have reviewed the radiologist's reading. Radiologist Impression: US/US venous duplex LE LT IMPRESSION: No evidence of deep venous thrombosis involving the left lower extremity. FINDINGS: Pulmonary reticular pattern with prominence of the interstitial markings. No gross pleural effusion or pneumothorax. Cardiomediastinal silhouette is normal in size. Multilevel thoracic spondylosis. Metallic prosthesis, right glenohumeral joint. XR/XR chest 2V IMPRESSION: Consider interstitial edema in the correct clinical settings. Independent Historian Clinical information obtained from an independent historian. History obtained from or confirmed by: Spouse External Record Review External record reviewed: Inpatient record, Office record and Outpatient record Discharge Plan Discharge Clinical Impression: CARDOZA (dyspnea on exertion) Patient Disposition: Home, Self-Care Additional Instructions: You were evaluated in the emergency department today for shortness of breath on exertion. Your evaluation did not show evidence of conditions requiring emergent medical treatment at this time. We recommend that you use your oxygen concentrator if needed while at rest and continue to use your regular oxygen with ambulation/activity. Keep your previously scheduled appointment with Dr. Nevarez tomorrow. We recommend that you focus on sitting in a chair or recliner where you can sit back, as your airway becomes obstructed and your oxygen levels drop with leaning forward. Return to the emergency department if you develop worsening chest pain, difficulty breathing, fever, or any other new or concerning symptoms. Prescriptions: No Action montelukast 10 mg tablet 10 mg PO DAILY 90 Days Qty: 90 3RF (DME) blood-glucose meter Kit See Rx Instructions .Route Qty: 1 0RF Rx Instructions: 4 times daily to check blood glucose albuterol sulfate 90 mcg/actuation HFA aerosol inhaler 2 puff PO Q6H PRN (Reason: wheezing) Qty: 8.5 3RF cyclobenzaprine 5 mg tablet 5 mg PO BID PRN (Reason: Pain) 90 Days Qty: 180 3RF diclofenac sodium 75 mg tablet,delayed release (DR/EC) 75 mg PO BID PRN (Reason: Pain) Qty: 180 1RF magnesium oxide 400 mg (241.3 mg magnesium) tablet 400 mg PO BID Qty: 90 3RF metformin 1,000 mg tablet 1,000 mg PO BID 90 Days Qty: 180 3RF mupirocin 2 % ointment 1 appl topical DAILY Qty: 50 3RF diazepam 2 mg tablet 2 mg PO BEDTIME PRN (Reason: Anxiety) 30 Days Qty: 30 1RF pramipexole 0.25 mg tablet 1 mg PO DAILY Qty: 360 3RF linaclotide 145 mcg capsule 145 mcg PO DAILY Qty: 90 1RF clotrimazole [Lotrimin AF (clotrimazole)] 1 % cream 1 appl topical TID Qty: 45 0RF hydroxychloroquine 200 mg tablet 200 mg PO DAILY Qty: 90 3RF idjwidf-efzxowvnar-NJH-caff 32-30-967-40 mg capsule 1 cap PO QID PRN (Reason: headache) 28 Days Qty: 28 0RF oxycodone 10 mg tablet 10 mg PO QID PRN (Reason: pain) 28 Days Qty: 112 0RF insulin lispro [Humalog KwikPen Insulin] 100 unit/mL insulin pen 30 unit subcut TID Qty: 45 3RF morphine 30 mg tablet extended release 30 mg PO BID@0030,1230 28 Days Qty: 56 0RF aspirin 325 mg Tablet 325 mg PO DAILY@1230 loratadine 10 mg Tablet 10 mg PO 0030 Eucerin Eczema Relief 1 % cream 1 appl topical TID Qty: 226 0RF Anoro Ellipta 62.5-25 mcg/actuation blister with device 1 ea inhalation DAILY PRN (Reason: Shortness Of Breath Or Wheezing) ondansetron 8 mg tablet,disintegrating 8 mg PO Q12H pantoprazole 40 mg tablet,delayed release (DR/EC) 40 mg PO BID@0630,1630 nicotine 21 mg/24 hr Patch 24 Hour 21 mg transdermal DAILY Qty: 30 0RF cefuroxime axetil 500 mg tablet 500 mg PO BID Qty: 6 0RF prednisone 20 mg tablet 40 mg PO DAILY Qty: 6 0RF losartan 25 mg tablet 25 mg PO DAILY 90 Days Qty: 90 3RF amlodipine 10 mg tablet 10 mg PO DAILY 90 Days Qty: 90 3RF hyoscyamine sulfate 0.125 mg tablet 0.125 mg PO DAILY naloxone 4 mg/actuation spray,non-aerosol 4 mg intranasal Q2M PRN (Reason: opioid overdose) Qty: 2 0RF Rx Instructions: spray 1 dose into ONE nostril; alternate nostrils w each dose until help arrives pregabalin [Lyrica] 75 mg capsule 75 mg PO BID Qty: 180 3RF (DME) FreeStyle Mag 3 Plus Sensor Device See Rx Instructions .Route Qty: 6 3RF Rx Instructions: As directed (DME) FreeStyle Mag 3 [place] Misc See Rx Instructions .Route Qty: 1 0RF Rx Instructions: As directed albuterol sulfate 2.5 mg /3 mL (0.083 %) solution for nebulization 2.5 mg inhalation Q4-6H PRN (Reason: shortness of breath or wheezing) Qty: 180 3RF Referrals: Jean Pierre Nevarez MD [Physician] - Print Language: [place]
[2024-03-16 08:19] VITALS: BP 115/68; PULSE 93; RESP 22; O2SAT 95
--- OUTSIDE RECORDS SUMMARY | 2024-03-16 08:25 | XMS_ITS ---
Author Organization [facility] Address [address] [place] [id number] Care Team Providers Care Embedded Firmware Engineer Name Role Phone CHASITY GARRISON, MAYI Primary Care Provider ANEESH Fajardo Unavailable [phone] Encounters Encounter Location Date Provider Diagnosis [facility] [address] [place] [id number] 09/14/2022 ANEESH BELL Plan Of Treatment No Information Progress Notes * MARIANNEMIRELLAINDOB:1960 ([age] yo F)Acc No.[id number]:09/14/2022 Progress Notes Patient:?MIRELLA LOPESIN Provider:?Aneesh Bell MD :1960???Age:62 Y???Sex:Female D ate:09/14/2022 Address:[address] [place], [place] [id number] Pcp:MAYI GASPAR MD Subjective: * Chief Complaints: * ??? * Medical History:? Objective: * Vitals:? Assessment: Plan: * Treatment: * * Electronic signature of PETEY OGDEN MD on 03/16/2024 at 08:25 AM EST Sign off status: Pending * Provider:?Aneesh Bell MD Date:? 023 Generated for Nelda irving/Maritza/Hubert on:?03/16/2024 08:25 AM EST
--- OUTSIDE RECORDS SUMMARY | 2024-03-16 08:25 | XMS_ITS | Encounter Summary ---
Author Organization [facility] Address [address] [place] [address] Care Team Providers Care Revenue Stamp Clerk Name Role Phone Dottie Douglass MD Primary Care Provider [phone] Encounter Details Date Type Department Care Team (Late st Contact Info) Description 09/25/2017 Scanned Document [facility] Plastic & Reconstructive Surgery [address] [place] [address] Nito Epperson MD [address] [facility] [address] [place] [address] Social History Tobacco Use Types Packs/Day Years Used Date Smoking Tobacco: Never Assessed Sex and Gender Information Value Date Recorded Sex Assigned at Not on file Gender Identity Not on file Sexual Orientation Not on file documented as of this encounter Plan of Treatment Not on file documented as of this encounter Visit Diagnoses Not on filedocumented in this encounter Care Teams Revenue Stamp Clerk Relationship Specialty Start Date End Date Dottie Douglass MD PCP - General Internal Medicine 08/04/17 documented as of this encounter
--- OUTSIDE RECORDS SUMMARY | 2024-03-16 08:25 | XMS_ITS | Encounter Summary ---
Author Organization [facility] Address [address] [place] [address] Care Team Providers Care Treating Plant Supervisor Name Role Phone Dottie Douglass MD Primary Care Provider [phone] Encounter Details Date Type Department Care Team (Late st Contact Info) Description 01/02/2018 Scanned Document [facility] Plastic & Reconstructive Surgery [place] [address] [facility] [address] [place] [address] Nito Epperson MD [address] [facility] [address] [place] [address] Social History Tobacco Use Types Packs/Day Years Used Date Smoking Tobacco: Every Day Smokeless Tobacco: Never Alcohol Use Standard Drinks/Week Comments No 0 (1 standard drink = 0.6 oz pur e alcohol) AUDIT-C Answer Date Recorded Frequency of Alcohol Consumption Never 12/11/2017 Average Number of Drinks Not on file 018 Frequency of Binge Drinking Not on file 11/18 Sex and Gender Information Value Date Recorded Sex Assigned at Not on file Gender Identity Not on file Sexual Orientation Not on file documented as of this encounter Plan of Treatment Not on file documented as of this encounter Visit Diagnoses Not on filedocumented in this encounter Care Teams Treating Plant Supervisor Relationship Specialty Start Date End Date Dottie Douglass MD PCP - General Internal Medicine 08/04/17 documented as of this encounter
--- OUTSIDE RECORDS SUMMARY | 2024-03-16 08:26 | XMS_ITS | Clinical Summary ---
Author Organization [facility] Address [address] [place] [address] Care Team Providers Care Gastroenterology Professor Name Role Phone Dottie Douglass MD Primary Care Provider [phone] Allergies Active Allergy Reactions Criticality Noted Date Comments Acetaminophen Itching Low 07/03/2013 Adalimumab Other (see comments) 12/11/2017 Stops healing of wounds Adhesive Tape-Silicones Rash Low 12/11/2017 Atorvastatin Shortness of breath High 12/11/2017 Dihydroergocristine 07/03/2013 Dihydroergotamine 12/11/2017 Other reaction(s): Other (See Comments) Causes heart to stop Gentamicin Other (see comments) Medium 07/03/2013 Haloperidol High 12/11/2017 Other reaction(s): Hepatitis/Abnormal Liver Function Ketorolac Tromethamine Other (see comments) Low Other reaction(s): Myalgia/Myositis/A rthralgia/Arthriti s Mite Extract Other (see comments),Shortness of breath High 03/18/2019 DUST causes extreme asthma attack Sumatriptan 07/03/2013 Tramadol 07/03/2013 Varenicline 12/11/2017 Other reaction(s): Other (See Comments) seizure Medications albuterol HFA 90 mcg/actuation inhaler Inhale every 6 hours as needed. 08/10/19 15 Active betamethasone dipropionate (DIPROLENE) 0.05 % cream Apply topically. Act henry diclofenac sodium (VOLTAREN) 1 % gel CATHY 4 GRAMS EXT AA QID 3 05/20/19 19 Active hyoscyamine (ANASPAZ,LEVSIN) 0.125 mg tablet Take by mouth. Active insulin glargine (LANTUS) 100 unit/mL injection Inject under the skin. 08/12/19 15 Active insulin lispro (HumaLOG) 100 unit/mL injection Inject under the skin. 02/24/19 16 Active lidocaine (LIDODERM) 5 % patch Lidoderm 5 % External Patch Quantity: 0; Refills: 0 Active Active metFORMIN (GLUCOPHAGE) 1,000 mg tablet Take 1,000 mg by mouth 2 (two) times a day with meals. 5 05/13/19 19 Active montelukast (SINGULAIR) 10 mg tablet 11/30/19 15 Active mupirocin (BACTROBAN) 2 % cream APPLY AND GENTLY MASSAGE INTO AFFECTED AREAS TWICE DAILY 10/04/19 15 Active pantoprazole (PROTONIX) 40 mg EC tablet TK 1 T PO D 1 05/22/19 19 Active phenazopyridine (PYRIDIUM) 200 mg tablet Take 200 mg by mouth 3 times daily as needed. 08/17/19 15 Active aspirin 325 mg tablet TK 1 T PO BID 0 06/17/19 19 Active ONETOUCH ULTRA CONTROL solution See admin instructions. 0 06/25/19 19 Active ONETOUCH ULTRA2 kit USE TO TEST BLOOD SUGAR 0 06/24/19 19 Active furosemide (LASIX) 20 mg tablet TK 2 TS PO D FOR 3 DAYS THEN TK 1 T PO D 0 07/03/19 19 Active ibuprofen (ADVIL,MOTRIN) 800 mg tablet TK 1 T PO Q 8 H PRN P 1 06/20/19 19 Active ONETOUCH DELICA LANCETS 30 gauge misc USE 4 TIMES DAILY 11 06/24/19 19 Active magnesium oxide (MAG-OX) tablet TK 1 T PO D 1 07/09/19 19 Active morphine (MS CONTIN) 30 mg 12 hr tablet TK 1 T PO BID 0 07/28/19 19 Active nitrofurantoin, macrocrystal-mon ohydrate, (MACROBID) 100 mg capsule TK 1 C PO BID 0 07/24/19 19 Active morphine (MS CONTIN) 15 mg 12 hr tablet TK 1 T PO TID PRN FOR PAIN 0 10/17/19 19 Active HUMALOG KWIKPEN INSULIN 100 unit/mL insulin pen INJECT 25 UNITS SUBCUTANEOUSLY 3 TIMES DAILY BEFORE MEALS 3 10/07/19 19 Active fluconazole (Diflucan) 150 mg tablet Take 1 tablet daily for 3 days. 3 tablet 3 01/24/20 20 Active Additional Information Patient not taking.Reported on 10/13/2020 LORazepam (Ativan) 1 mg tablet Take tablet 30 minutes prior to procedure. Hold other medications as discussed. Do not drive while taking medication. 1 tablet 03/19/19 21 Active oxyCODONE (ROXICODONE) 5 mg immediate release tablet Take 10 mg by mouth every 8 hours as needed. 07/31/19 15 Active sulfamethoxazole -trimethoprim (BACTRIM DS) 800-160 mg per tablet Take 1 tablet by mouth. for 7 days 04/05/19 21 Active meclizine (ANTIVERT) 25 mg tablet TAKE 1 TABLET BY MOUTH EVERY 8 HOURS NEEDED FOR DIZZINESS 04/03/19 21 Active diazePAM (VALIUM) 2 mg tablet TAKE 1-2 TABLETS BY MOUTH TWICE DAILY NEEDED 03/21/19 21 Active codeine-butalbit al-ASA-caff (FIORINAL WITH CODEINE) capsule Take 1 capsule by mouth every 8 hours as needed. 06/25/19 19 Active ammonium lactate (LAC-HYDRIN) 12 % cream APPLY CREAM TOPICALLY TO AFFECTED AREA TWICE DAILY NEEDED 01/22/20 19 Active fluconazole (Diflucan) 150 mg tablet Take one tablet daily for 3 days 3 tablet 1 05/20/19 21 Active Additional Information Patient not taking.Reported on 10/13/2020 hydrOXYchloroQUI NE (PLAQUENIL) 200 mg tablet TAKE 1 TABLET(200 MG) BY MOUTH DAILY 90 tablet 1 01/30/20 21 Active diclofenac (VOLTAREN) 75 mg EC tablet Take one tablet twice daily prn 60 tablet 1 02/13/20 21 Active nystatin (MYCOSTATIN) 100,000 unit/mL suspension Swish and spit 5 mL (500,000 Units total) 4 (four) times a day. 200 mL 2 02/19/19 22 Active cyclobenzaprine (FLEXERIL) 5 mg tablet Take 1 tablet (5 mg total) by mouth 3 (three) times a day as needed for muscle spasms. 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 COPD, moderate 07/19/2014 Elevated hemoglobin 07/19/2014 Extreme obesity 07/19/2014 Fibrositis 07/19/2014 Flu vaccine need 07/19/2014 Fracture, stress, metatarsal 07/19/2014 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 07/19/2014 Hypertriglyceridemia 07/19/2014 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 Ingrowing nail 07/19/2014 Localized adiposity 07/19/2014 Low back pain 07/19/2014 Lymphedema of leg 07/19/2014 Onychomycosis 07/19/2014 Panaritium of toe 07/19/2014 Pain in toe 07/19/2014 Arthritis, degenerative 07/19/2014 Arthritis 07/19/2014 Routine general medical exam ination at a health care facility 07/19/2014 Sicca syndrome 07/19/2014 Smokes tobacco daily 07/19/2014 Diabetes mellitus 06/28/2014 Family History Medical History Relation Comments Alcohol abuse Mother Depression Mother Fibromyalgia Mother Polycythemia Mother Relation Status Comments Father Alive Mother Social History Tobacco Use Types Packs/Day Years Used Date Smoking Tobacco: Every Day Cigarettes 1 51.1 Started: 1973 Pipe Smokeless Tobacco: Never Comments:PIPE SMOKER Alcohol Use Standard Drinks/Week Comments No 0 (1 standard drink = 0.6 oz pur e alcohol) Comments No Sex and Gender Information Value Date Recorded Sex Assigned at Not on file Legal Sex Female 4:50 AM EST Gender Identity Not on file Sexual Orientation Not on file Last Filed Vital Signs Vital Sign Reading Time Taken Comments Blood Pressure 126/84 10/13/2020 3:56 PM EDT Pulse 92 10/13/2020 3:56 PM EDT Temperature - - Respiratory Rate - - Oxygen Saturation - - Inhaled Oxygen Concentration - - Weight 88 kg (194 lb) 10/13/2020 3:56 PM EDT Height 162.6 cm (5' 4 ) 05/04/2020 3:49 PM EDT Body Mass Index 33.3 05/04/2020 3:49 PM EDT Plan of Treatment Health Maintenance Due Date Last Done Comments Breast Cancer Screening 1960 CT Colonography 1961 Colonoscopy 1960 Colorectal Cancer Screening 1960 FIT-DNA (Cologuard) 1960 FIT 1960 FOBT 1960 Flex Sigmoidoscopy - 5y 1960 HIV Screening 1960 DTaP,Tdap,and Td Vaccines (1 - Tdap) 05/30/1979 Pap Smear 1982 Cervical Cancer Screening 05/30/1991 HPV/Cotest 05/30/1991 Zoster Vaccines (1 of 2) 05/30/2011 COVID-19 Vaccine ( - 2023-2 5 season) 2023 Influenza Vaccine (#1) 2023 HPV Vaccines Aged Out No longer eligi ble based on patient's age to complete this topic Hepatitis A Vaccines Aged Out No long er eligible based on patient's age to complete this topic MMR Vaccines Aged Out No longer eligi ble based on patient's age to complete this topic Meningococcal Vaccine Aged Out No eva michael eligible based on patient's age to complete this topic Pneumococcal Vaccine: Pediat rics (0 to 5 Years) and At-Risk Patients (6 to 64 Years) Aged Out No longer eligible b ased on patient's age to complete this topic Insurance M[employer] Care Teams Gastroenterology Professor Relationship Specialty Start Date End Date Dottie Douglass MD [address] [place] [id number] PCP - General Internal Medicine 10/13/20
--- OUTSIDE RECORDS SUMMARY | 2024-03-16 08:26 | XMS_ITS ---
Author Organization [facility] Address [address] [place] [address] Care Team Providers Care Coordinator Mining Products Name Role Phone MAYI GASPAR MD Primary Care Provider ANEESH Fajardo Unavailable [phone] REASON FOR VISIT SICK WILL call back to R/S Medications Medication SIG (Take, Route, Frequency, Duration) Notes Start Date End Date Status Aspirin 325 MG 1 tablet Orally twice a day Active MAGnesium-Oxide 400 (241.3 Mg) MG 1 tablet with food Orally Once a day for 30 day(s) Active oxyCODONE HCl 10 MG 1 tablet Orally BID for 30 days 06/28/2020 Active Meclizine HCl 25 MG 1 tablet as needed Orally Once a day Active Hydroxychloroquine Sulfate 200 MG as directed Orally Active Hyoscyamine Active Voltaren 75mg 1 tab orally qd Active Fiorinal 50-325-40 MG 2 caps Orally prn Active Voltaren 1 % as directed Transdermal 75mg once qd Active Bactroban Active EpiPen Active Flexeril 5mg 1 tab bid prn Act henry Ammonium Lactate 12 % 1 application Externally Twice a day Active Loratadine 10 MG 1 tablet Orally Twice a day Active ibuprofen 1 tab Oral Active metFORMIN HCl ER 1 tablet with evening meal Orally Once a day Active Montelukast Sodium 10 MG 1 tablet Orally Once a day Active Ventolin HFA 108 (90 Base) MCG/ACT 2 puffs as needed Inhalation prn Active Zofran 1 tablet Orally prn Active HumaLOG KwikPen Acti ve Pantoprazole Sodium 40 MG 1 tablet Orally Once a day Active Hyoscyamine prn Active Gabapentin 300 MG 1 capsule Orally Once a day for 30 day(s) Active oxyCODONE HCl 5 MG 1 tablet as needed Orally TID for 30 days 03/14/2019 Unknown Bactroban prn Active Morphine Sulfate 30 MG 1 tablet as needed Orally TID Not-Taking Nitrofurantoin Orally BID qd N ot-Taking Levaquin LEVA-mika bladder infection Not-Taking hydroCHLOROthiazide 200mg 1 tablet in the morning Once a day Not-Taking Lantus as directed Subcutaneous bid Not-Taking Morphine Sulfate ER 30 MG 1 tablet Orally every 12 hrs for 30 days 06/28/2020 Active diazePAM 2 MG 1 to 2 tabs Orally bid prn Not-Taking Plaquenil Not-Taking Encounters Encounter Location Date Provider Diagnosis [facility] [address] [place] [id number] 10/05/2022 ANEESH BELL Plan Of Treatment No Information Progress Notes * MIRELLA LOPESINDOB:1960 ([age] yo F)Acc No.[id number]:10/05/2022 Progress Notes Patient:?KAMRYN LOPES Provider:?Aneesh Bell MD :1960???Age:62 Y???Sex:Female D ate:10/05/2022 Address:[address] [place], [place] [id number] Pcp:MAYI GASPAR MD Subjective: * Chief Complaints: * ???1. SICK WILL call back to R/S. * Medical History:? * Medications:?Taking Gabapent in 300 MG Capsule 1 capsule Orally Once a day , Taking Hyoscyamine 0.125mg prn , Taking Pantoprazole Sodium 40 MG Tablet Delayed Release 1 tablet Orally Once a day , Taking Bactroban prn , Taking Ventolin HFA 108 (90 Base) MCG/ACT Aerosol Solution 2 puffs as needed Inhalation prn , Taking Montelukast Sodium 10 MG Tablet 1 tablet Orally Once a day , Taking metFORMIN HCl ER 1000mg 1 tablet with evening meal Orally Once a day , Taking HumaLOG KwikPen , Taking Zofran 1 tablet Orally prn , Taking EpiPen , Taking ibuprofen 800mg 1 tab Oral , Taking Loratadine 10 MG Tablet 1 tablet Orally Twice a day , Taking Ammonium Lactate 12 % Lotion 1 application Externally Twice a day , Taking Flexeril 5mg 1 tab bid prn , Taking Voltaren 1 % Gel as directed Transdermal 75mg once qd , Taking Fiorinal 50-325-40 MG Capsule 2 caps Orally prn , Taking Voltaren 75mg tab 1 tab orally qd , Taking Hyoscyamine , Taking Bactroban , Taking MAGnesium-Oxide 400 (241.3 Mg) MG Tablet 1 tablet with food Orally Once a day , Taking Aspirin 325 MG Tablet 1 tablet Orally twice a day , Taking Hydroxychloroquine Sulfate 200 MG Tablet as directed Orally , Taking Meclizine HCl 25 MG Tablet 1 tablet as needed Orally Once a day , Taking oxyCODONE HCl 10 MG Tablet 1 tablet Orally BID , Taking Morphine Sulfate ER 30 MG Tablet Extended Release 1 tablet Orally every 12 hrs , Not-Taking/PRN Plaquenil , Not-Taking/PRN diazePAM 2 MG Tablet 1 to 2 tabs Orally bid prn , Not-Taking/PRN Lantus 60 units as directed Subcutaneous bid , Not-Taking/PRN hydroCHLOROthiazide 200mg 1 tablet in the morning Once a day , Not-Taking/PRN Levaquin LEVA-mika , Notes to Pharmacist: bladder infection, Not-Taking/PRN Nitrofurantoin 100mg Orally BID qd , Not-Taking/PRN Morphine Sulfate 30 MG Tablet 1 tablet as needed Orally TID , Unknown oxyCODONE HCl 5 MG Tablet 1 tablet as needed Orally TID Objective: * Vitals:? Assessment: Plan: * Treatment: * * Electronic signature of PETEY OGDEN MD on 03/16/2024 at 08:25 AM EST Sign off status: Pending * Provider:?Aneesh Bell MD Date:? 023 Generated for Nelda irving/Maritza/Hubert on:?03/16/2024 08:25 AM EST
--- OUTSIDE RECORDS SUMMARY | 2024-03-16 08:26 | XMS_ITS | Patient Health Record ---
Author Organization [facility] Address [address] [place] [address] Care Team Providers Care Button Breaker Operator Name Role Phone MAYI GASPAR MD Primary Care Provider Unavailabl e Allergies Allergen (clinical drug ingredient) Drug/Non Drug Allergy documented on EMR Reaction Allergy Type Onset Date Status varenicline Chantix anaphylaxis Drug Allergy Act henry gentamicin Gentamicin Sulfate Anaphylaxis-Polymyxin B Drug Allergy Active Haldol Immunodeficiency Drug Allergy Active haloperidol Haloperidol Anaphylaxis-Bake rs Yeast Drug Allergy Active sumatriptan Imitrex anaphylaxis Drug Allergy Act henry ketorolac Ketorolac Tromethamine Anaphylaxis-Bakers Yeast Drug Allergy Active atorvastatin Lipitor anaphylaxis Drug Allergy Ac tive acetaminophen Tylenol anaphylaxis Drug Allergy A ctive Reason For Referral No Information Medications Medication SIG (Take, Route, Frequency, Duration) Notes Start Date End Date Status Hyoscyamine Active Voltaren 75mg 1 tab orally qd Active Fiorinal 50-325-40 MG 2 caps Orally prn Active Voltaren 1 % as directed Transdermal 75mg once qd Active Bactroban Active EpiPen Active Morphine Sulfate 30 MG 1 tablet as needed Orally TID Not-Taking Nitrofurantoin Orally BID qd N ot-Taking Levaquin LEVA-mika bladder infection Not-Taking Flexeril 5mg 1 tab bid prn Act henry Ammonium Lactate 12 % 1 application Externally Twice a day Active Loratadine 10 MG 1 tablet Orally Twice a day Active ibuprofen 1 tab Oral Active oxyCODONE HCl 5 MG 1 tablet as needed Orally TID for 30 days 03/14/2019 Unknown metFORMIN HCl ER 1 tablet with evening meal Orally Once a day Active hydroCHLOROthiazide 200mg 1 tablet in the morning Once a day Not-Taking Montelukast Sodium 10 MG 1 tablet Orally Once a day Active Lantus as directed Subcutaneous bid Not-Taking Ventolin HFA 108 (90 Base) MCG/ACT 2 puffs as needed Inhalation prn Active diazePAM 2 MG 1 to 2 tabs Orally bid prn Not-Taking Bactroban prn Active Plaquenil Not-Taking Zofran 1 tablet Orally prn Active HumaLOG KwikPen Acti ve Aspirin 325 MG 1 tablet Orally twice a day Active MAGnesium-Oxide 400 (241.3 Mg) MG 1 tablet with food Orally Once a day for 30 day(s) Active Pantoprazole Sodium 40 MG 1 tablet Orally Once a day Active Morphine Sulfate ER 30 MG 1 tablet Orally every 12 hrs for 30 days 06/28/2020 Active Hyoscyamine prn Active oxyCODONE HCl 10 MG 1 tablet Orally BID for 30 days 06/28/2020 Active Gabapentin 300 MG 1 capsule Orally Once a day for 30 day(s) Active Meclizine HCl 25 MG 1 tablet as needed Orally Once a day Active Hydroxychloroquine Sulfate 200 MG as directed Orally Active Social History Tobacco Use: Social History Observation Description Date Details (start date - stop date) Unknown Tobacco Use/Smoking Question Answer Notes Are you a Uses tobacco in other forms Additional Findings: Tobacco User Pipe smoker Problems Problem Type SNOMED Code ICD Code Onset Dates Problem Status W/U Status Risk Notes Problem Lumbosacral spondylosis without myelopathy (84760319) Spondylosis without myelopathy or radiculopathy, lumbar region (M47.816) Active confirmed Problem High risk drug monitoring status (040638479) USP (current) use of opiate analgesic (Z79.891) Active confirmed Plan Of Treatment Pending Test Test Name Order Date COCAINE QUANTITATIVE 05/07/2022 OXYCODONE QUANTITATIVE 05/07/2022 BARBITURATES QUANTITATIVE 05/07/2022 METHADONE QUANTITATIVE 05/07/2022 MDMA (ECSTASY) QUANTITATIVE 05/07/2022 TRAMADOL QUANTITATIVE 05/07/2022 FENTANYL QUANTITATIVE 05/07/2022 BUPRENORPHINE QUANTITATIVE 05/07/2022 BENZODIAZEPINE QUANTITATIVE 05/07/2022 OPIATES QUANTITATIVE 05/07/2022 MUSCLE RELAXANT, QUANTITATIVE 05/07/2022 Amphetamine 05/07/2022 LAB REPORT 05/07/2022 SALOL DRUG PANEL,UR 05/07/2022 Insurance Providers Payer Name Payer Address Payer Phone Subscriber Number Group Number Insured Name Patient Relationship to Insured Coverage Start Date Coverage End Date DEEPTI Sams [address] [place] [address] [phone] [id number] BRITNEY Keane Spouse - patient is the spouse of the insured Medical (General) History Medical History History ICD Code Diabetes Type 1 Insulin Dependent Chronic low back pain Fibromyalgia Sleep Apnea Disc Degenerative Disease Osteoarthritis Rheumatoid Arthritis Bursitis sjogrens syndrome Eczema Liver issues Boils Sleep Apnea polycythemia type 1 Surgical History Surgery Date(Month/Year) Right shoulder surgery 06/10/2018 tonsilectomy perforated ear drum c section appendectomy gallbladder removal bladder repair hysterectomy partial lypectomony hernia rebuild pylenitol cyst x2 cyst removal Hospitalization History Reason Date(Month/Year) colonoscopy 02/01
--- OUTSIDE RECORDS SUMMARY | 2024-03-16 08:26 | XMS_ITS | Clinical Summary ---
Author Organization [facility] Address [address] [place] [address] Care Team Providers Care Customs Compliance Analyst Name Role Phone Dottie Douglass MD Primary Care Provider [phone] Allergies Active Allergy Reactions Criticality Noted Date Comments Acetaminophen Itching Low 07/03/2013 Adhesives/Tape Rash/Dermatitis Low 12/11/2017 Varenicline Other (See Comments) 12/11/2017 seizure Dihydroergotamine Other (See Comments) 12/12/19 18 Causes heart to stop Dust Mite Extract Shortness Of Breath,Other (See Comments) High 03/18/2019 DUST causes extreme asthma attack Gentamicin Unknown/Patient and Family Unable to Define Medium 07/03/2013 Haloperidol Hepatitis/Abnormal Liver Function High 12/11/2017 Adalimumab Other (See Comments) 12/11/2017 Stops healing of wounds Atorvastatin Shortness Of Breath High 12/11/2017 Ketorolac Tromethamine GI Intolerance/Nausea/V omiting,Myalgia/Myos itis/Arthralgia/Arth ritis Low 12/11/2017 Medications Medication Sig Dispensed Refills Start Date End Date Status oxyCODONE (ROXICODONE) 5 MG immediate release tablet Take 10 mg by mouth 3 times daily (every 8 hours) as needed. 12/10/2017 Active hydroxychloroquine (PLAQUENIL) 200 MG tablet Take 200 mg by mouth nightly. 0 11/13/2017 Active diclofenac (VOLTAREN) 1 % gel Place on the skin daily as needed. 11/23/2013 Active Naloxone HCl (NARCAN IJ) Inject as directed. Active ammonium lactate (LAC-HYDRIN) 12 % cream APPLY CREAM TOPICALLY TO AFFECTED AREA TWICE DAILY NEEDED 01/21/2019 Active aspirin (JESE ASPIRIN) 325 MG tablet Take 325 mg by mouth nightly. 06/16/2018 Active Blood Glucose Calibration (OT ULTRA/FASTTK CNTRL SOLN) Solution See admin instructions. 06/24/2018 Active albuterol (PROVENTIL HFA; VENTOLIN HFA) 108 (90 Base) MCG/ACT inhaler Inhale 2 puffs every 4 (four) hours as needed. 08/09/2014 Active butalbital-aspirin- caffeine-codeine (FioriNAL WITH CODEINE) 30-057-03-30 MG capsule Take 1 capsule by mouth 3 times daily (every 8 hours) as needed. 06/24/2018 Active Blood Glucose Monitoring Suppl (ONE TOUCH ULTRA 2 DEVICE KIT) w/Device Kit USE TO TEST BLOOD SUGAR 06/23/2018 Active cyclobenzaprine (FLEXERIL) 10 MG tablet Take 10 mg by mouth 2 times daily (every 12 hours) as needed. 10/05/2012 Active diazepam (VALIUM) 2 MG tablet Take 2 mg by mouth 2 (two) times a day. 07/27/2018 Active diclofenac enteric coated (VOLTAREN) 75 MG EC tablet Take 75 mg by mouth daily as needed. 10/03/2018 Active EPINEPHrine (EPIPEN 2-EYAL) 0.3 mg/0.3 mL IJ auto-injection Inject 0.3 mg into the shoulder, thigh, or buttocks once as needed. 08/10/2014 Active hyoscyamine (LEVSIN) 0.125 MG tablet Take 0.125 mg by mouth daily as needed. Active ibuprofen (MOTRIN) 800 mg tablet TK 1 T PO Q 8 H PRN P 06/19/2018 Active Loratadine 10 MG Cap Take 1 tablet by mouth 2 (two) times a day. Active metFORMIN (GLUCOPHAGE) 1000 MG tablet Take 1,000 mg by mouth 2 (two) times a day with meals. 08/16/2014 Active magnesium oxide (MAG-OX) 400 MG tablet Take 400 mg by mouth nightly. 07/08/2018 Active montelukast (SINGULAIR) 10 MG tablet Take 10 mg by mouth nightly. 01/03/2019 Active mupirocin (BACTROBAN) 2 % cream APPLY AND GENTLY MASSAGE INTO AFFECTED AREAS TWICE DAILY 10/03/2014 Active ondansetron (ZOFRAN) 8 MG tablet TAKE 1 TABLET BY MOUTH EVERY 6 HOURS NEEDED 11/04/2014 Active PANTOprazole (PROTONIX) 40 MG EC tablet TK 1 T PO D 03/13/2015 Active morphine (MS CONTIN) 15 MG ER (extended release) tablet Take 15 mg by mouth every morning. Active Multiple Vitamin (MULTIVITAMIN) capsule Take 1 capsule by mouth daily. Active LANTUS 100 UNIT/ML injectionIndication s:Abdominal pannus Inject 0.4 mL (40 Units total) under the skin 2 (two) times a day. 10 mL 03/25/2019 Active insulin lispro (HumaLOG) 100 UNIT/ML cartridge injectionIndication s:Abdominal pannus Inject 0.3 mL (30 Units total) under the skin 3 (three) times a day before meals. 1 cartridge 03/25/2019 Active cephalexin (KEFLEX) 500 MG capsuleIndications: Abdominal pannus Take 1 capsule (500 mg total) by mouth 3 times daily (every 8 hours). 21 capsule 03/25/2019 Active Active Problems Problem Noted Date Diagnosed Date Abdominal pannus 03/23/2019 Family History Medical History Relation Name Comments Diabetes Father Relation Name Status Comments Father Social History Tobacco Use Types Packs/Day Years Used Date Smoking Tobacco: Every Day Cigarettes 1 45 Smokeless Tobacco: Never Alcohol Use Standard Drinks/Week [...] Sign Reading Time Taken Comments Blood Pressure 137/88 03/25/2019 7:15 AM EST Pulse 70 03/25/2019 7:15 AM EST Temperature 36 ??C (96.8 ??F) 03/25/2019 7:15 AM EST Respiratory Rate 18 03/25/2019 7:15 AM EST Oxygen Saturation 97% 03/25/2019 7:15 AM EST Inhaled Oxygen Concentration - - Weight 102 kg (224 lb) 03/23/2019 9:41 AM EST Height 162.6 cm (5' 4 ) 03/23/2019 9:41 AM EST Body Mass Index 38.45 03/23/2019 9:41 AM EST Plan of Treatment Health Maintenance Due Date Last Done Comments Hepatitis C Virus Screening 1961 COVID-19 Vaccine (#1) 1966 Pneumococcal Vaccine: Pediat tesfaye (0-5 Years) and At-Risk Patients (6 to 49 Years) (1 of 2 - PCV) 05/30/1967 HIV Screening 1974 DTaP/Tdap/Td Vaccines (1 - Tdap) 1980 Pneumococcal Vaccines 50+ (1 of 2 - PCV) 1980 Zoster (Shingles) Vaccine (1 of 2) 1980 Pap Smear (Ages 21-65) 1982 Mammogram 2001 Colonoscopy 2006 Lung Cancer Screening (LDCT) 05/30/2011 RSV Vaccine 60 years and old er and Patients (1 - Risk 60-74 years 1-dose series) 2021 Influenza Vaccine 09/18/2023 Hemoglobin A1C Discontinued 03/24/2019 Hepatitis B Vaccines Aged Out No long er eligible based on patient's age to complete this topic Procedures Procedure Name Priority Date/Time Associated Diagnosis Comments HEMOGLOBIN A1C WITH ESTIMATED AVERAGE GLUCOSE Routine 03/24/2019 6:20 AM EST from Last 3 Months or Most Recently Relevant to Health Maintenance Results * (ABNORMAL) Hemoglobin A1c with Estimated Average Glucose (03/24/2019 6:20 AM EST) Hemoglobin A1C 9.0(H) <5.7 % [facility] Comment: A1c% ? Interpretation 5.7 - 6.0 ?Increase risk of diabetes 6.1 - 6.4 ?Higher risk of diabetes > or = 6.5 ?? Consistent with diabetes Diabetes Care, 33(Supp 1):S1-S61, 2010 Estimated Average Glucose 212 mg/dL [facility] 03/24/2019 6:20 AM EST 03/24/2019 6:48 AM EST Nito Epperson MD LAB BLOOD ORDER [facility] from Last 3 Months or Most Recently Relevant to Health Maintenance Advance Directives * Full Code (Latest Code Status on File) Date Activated Date Inactivated Comments 03/24/2019 5:36 AM Question Answer Comments Decision Thoroughly Discussed with: Patient * Full Code Date Activated Date Inactivated Comments 03/23/2019 9:33 AM 03/24/2019 5:36 AM Care Teams Customs Compliance Analyst Relationship Specialty Start Date End Date Dottie Douglass MD PCP - General Internal Medicine 08/04/17
[2024-03-16 08:56] LABS: Appearance Urine Clear; Color Urine Dark Yellow; Glucose Urine UA Negative (Negative); Leukocyte Esterase Urine Moderate (2+) (Negative); Nitrite Urine Negative (Negative); PH 8.5 (5.0-9.0); Specific Gravity - Urine 1.025 (1.005-1.025); UMIC TRIGGER UACC YES; Urine Blood Negative (Negative); Urine Ketones Negative (Negative); Urine Protein 30 (1+) mg/dL (Neg-Trace); Venous Blood Gas Refer to POC result
[2024-03-16 08:57] LABS: VBG Base Excess 1.1 mmol/L; VBG HCO3 24 mmol/L (22-26); VBG pCO2 34 mmHg; VBG pH 7.45 (7.32-7.43); VBG pO2 64 mmHg
[2024-03-16 09:06] LABS: Bacteria Urine None Seen (None Seen); Hyaline Casts Urine 0-2 /LPF (0-2); RBC Urine 0-2 /HPF (0-2); UACC Culture Trigger YES
[2024-03-16 09:13] LABS: Alanine Aminotransferase 28 U/L (0-31); Albumin Level 3.8 g/dL (3.5-5.0); Alkaline Phosphatase 91 U/L (39-117); Anion Gap 13 (12-20); Aspartate Amino Transferase 29 U/L (5-31); Bilirubin Total 0.3 mg/dL (0.0-1.0); Blood Urea Nitrogen 13 mg/dL (9-16); Calcium 8.7 mg/dL (8.4-10.2); Carbon Dioxide 24 mmol/L (22-29); Chloride 103 mmol/L (96-108); Estimated Glomerular Filt Rate > 60; Glucose Random 126 mg/dL (60-115); Potassium 4.4 mmol/L (3.3-5.1); Sodium 136 mmol/L (135-145); Total Protein 7.7 g/dL (6.5-8.0)
[2024-03-16 09:22] LABS: Troponin-I High Sensitivity 7.8 ng/L (<3.5-17.0)
[2024-03-16 09:41] LABS: MANUAL DIFF FLAG NO
[2024-03-16 09:43] LABS: Basophils Absolute Auto 0.1 X10*3/uL (0.0-0.2); Basophils Percent Auto 0.4 % (0-2); Eosinophils Absolute Auto 0.3 X10*3/uL (0.0-0.4); Eosinophils Percent Auto 2.6 % (0-4); Hematocrit 49.5 % (37.0-47.0); Hemoglobin 16.1 g/dl (12.0-16.0); Imm Gran Abs Auto 0.07 X10*3/uL (0.00-0.03); Imm Gran Pct Auto 0.6 % (0.0-0.4); Lymphocytes Percent Auto 17.5 % (20-40); Mean Corpuscular HGB Conc 32.5 g/dl (31.0-35.0); Mean Corpuscular Hemoglobin 27.9 pg (27.0-33.0); Mean Corpuscular Volume 85.6 fL (80.0-98.0); Mean Platelet Volume 10.1 fL (9.4-12.3); Monocytes Absolute Auto 0.6 X10*3/uL (0.1-1.2); Monocytes Percent Auto 5.6 % (2-11); Neutrophils Absolute Auto 8.3 x10*3/uL (2.0-8.3); Neutrophils Percent Auto 73.3 % (45-73); Platelet Count 203 X10*3/uL (160-400); Red Blood Count 5.78 X10*6/uL (4.20-5.50); Red Cell Distribution Width 16.3 % (11.0-16.0); White Blood Count 11.4 X10*3/uL (4.8-10.8)
[2024-03-16 09:48] LABS: Influenza A PCR NEGATIVE (Negative); Influenza B PCR NEGATIVE (Negative); Resp Syncy Virus RNA Qual PCR NEGATIVE (Negative); SARS COV2 PCR INHOUSE NEGATIVE (Negative)
[2024-03-16 09:48] LABS: INTERNATIONAL NORM RATIO 1.1 (0.9-1.1)
[2024-03-16 10:03] LABS: B Type Natriuretic Peptide 27 pg/mL (<100)
[2024-03-16 14:04] VITALS: BP 115/68; PULSE 93; RESP 22; TEMP 37.1; O2SAT 95
== END 2024-03-16 14:04 | disposition home or self-care (01) ==
PROVIDERS: Registered Nurse Emergency; Emergency Provider Emergency Medicine Emergency Medical Services; PCP Internal Medicine
DX: R06.00 Dyspnea, unspecified (principal); M79.89 Other specified soft tissue disorders; M79.605 Pain in left leg; R06.02 Shortness of breath; Z03.818 Encounter for observation for suspected exposure to other biological agents ruled out; E11.9 Type 2 diabetes mellitus without complications; J45.909 Unspecified asthma, uncomplicated; G89.4 Chronic pain syndrome; F17.210 Nicotine dependence, cigarettes, uncomplicated; J96.01 Acute respiratory failure with hypoxia; Z99.81 Dependence on supplemental oxygen; Z79.891 Long term (current) use of opiate analgesic; Z79.82 Long term (current) use of aspirin; Z79.4 Long term (current) use of insulin; Z79.899 Other long term (current) drug therapy
CPT/HCPCS: 0241U; 71046; 80053; 81001; 82803; 83880; 84484; 85025; 85610; 87086; 93005; 93971; 99284

== ENCOUNTER → 2024-03-16 07:51 | Outpatient (BNV) | payer OTHER, SELFPAY | PROVIDERS: Emergency Provider Emergency Medicine Emergency Medical Services; PCP Internal Medicine; Visit Provider Internal Medicine | DX: R94.31 Abnormal electrocardiogram [ECG] [EKG] (principal) | CPT/HCPCS: 93010 ==

== ENCOUNTER → 2024-03-16 08:02 | Outpatient (BNV) | payer OTHER, SELFPAY | PROVIDERS: Emergency Provider Emergency Medicine Emergency Medical Services; PCP Internal Medicine; Visit Provider Radiology Diagnostic Radiology | DX: R22.42 Localized swelling, mass and lump, left lower limb (principal); J81.0 Acute pulmonary edema | CPT/HCPCS: 71046; 93971 ==

== ENCOUNTER 2024-05-31 15:49 | Outpatient (AMB) | payer OTHER, SELFPAY ==
--- NOTE | 2024-05-31 15:57 | MHC.PC.OV ---
Vital Signs 05/31/24 16:00 05/31/24 16:09 BMI Reason not done Patient refused/unable BP 116/64 Blood Pressure Location Rt brachial Position Sitting Pulse 89 Pulse Source Pulse Oximeter Pulse Oximetry (%) 84 L 93 Oxygen Delivery Method Room Air Nasal Cannula Oxygen Flow Rate 4 Intake Visit Reasons: intermittent confusion Intake Note: Confusion Spinning Mule Tender Required: No Allergies atorvastatin [From LIPITOR] Allergy (Severe, Verified 05/31/24 15:57) Difficulty Breathing azithromycin [AZITHROMYCIN] Allergy (Severe, Verified 05/31/24 15:57) Difficulty Breathing mite-Dermatophagoides farinae, vicente [dust mite - [place]] Allergy (Severe, Verified 05/31/24 15:57) Difficulty Breathing sumatriptan [From IMITREX] Allergy (Severe, Verified 05/31/24 15:57) Difficulty Breathing house dust Allergy (Mild, Verified 05/31/24 15:57) Unknown acetaminophen [From TYLENOL] Allergy (Unknown, Verified 05/31/24 15:57) Itching adhesive tape [ADHESIVE TAPE] Allergy (Unknown, Verified 05/31/24 15:57) Rash gentamicin [GENTAMICIN] Allergy (Unknown, Verified 05/31/24 15:57) Rash adalimumab [From Humira] Allergy (Verified 05/31/24 15:57) Rash erythromycin base Allergy (Verified 05/31/24 15:57) Unknown haloperidol [From HALDOL] Adverse Reaction (Unknown, Verified 05/31/24 15:57) GI Issues ketorolac [From TORADOL] Adverse Reaction (Unknown, Verified 05/31/24 15:57) Muscle cramps prasterone (DHEA) [From DHEA] Adverse Reaction (Unknown, Verified 05/31/24 15:57) Cardiac issues varenicline [From CHANTIX] Adverse Reaction (Unknown, Verified 05/31/24 15:57) Seizure ipratropium [From Atrovent] Adverse Reaction (Verified 05/31/24 15:57) Migraine Medication List - Last Reconciled 06/02/24 by Dottie Douglass MD albuterol sulfate 90 mcg/actuation 2 puffs PO Q6H PRN albuterol sulfate 2.5 mg (3 mL) inhalation Q4-6H PRN amlodipine 10 mg PO DAILY 90 days aspirin 325 mg PO DAILY@1230 baclofen 10 mg PO BID blood-glucose meter 4 times daily to check blood glucose cefuroxime axetil 500 mg PO BID clotrimazole 1% (Lotrimin AF (clotrimazole)) 1 appl topical TID luasqco-mcefurskjy-RMH-caff 93-53-898-40 mg 1 cap PO QID PRN 28 days colloidal oatmeal 1% (Eucerin Eczema Relief) 1 appl topical TID cyclobenzaprine 5 mg PO BID PRN 90 days diazepam 2 mg PO BEDTIME PRN 30 days diclofenac sodium 75 mg PO BID PRN diclofenac sodium 1% 4 grams topical QID doxycycline hyclate 100 mg PO BID FreeStyle Mag 3 Plus Sensor (blood-glucose sensor) As directed NS FreeStyle Mag 3 Delta (blood-glucose,ceramic engineer,cont) As directed NS hydroxychloroquine 200 mg PO DAILY hyoscyamine sulfate 0.125 mg PO DAILY insulin lispro (Humalog KwikPen (U-100) Insulin) 30 units (0.3 mL) subcut TID linaclotide 145 mcg PO DAILY loratadine 10 mg PO 0030 losartan 25 mg PO DAILY 90 days magnesium oxide 400 mg PO BID metformin 1,000 mg PO BID 90 days montelukast 10 mg PO DAILY 90 days morphine ER 30 mg PO BID@0030,1230 28 days mupirocin 2% 1 appl topical DAILY naloxone 4 mg/actuation 4 mg intranasal Q2M PRN nicotine 21 mg transdermal DAILY nicotine (polacrilex) 4 mg buccal Q4H PRN nystatin 5 mL PO DAILY ondansetron 8 mg PO Q12H oxycodone 10 mg PO QID PRN 28 days Oxygen Home Use 2L continuous pantoprazole 40 mg PO BID@0630,1630 pramipexole 1 mg (4 x 0.25 mg) PO DAILY prednisone 40 mg (2 x 20 mg) PO DAILY pregabalin (Lyrica) 75 mg PO BID umeclidinium-vilanterol 62.5-25 mcg/actuation (Anoro Ellipta) 1 ea inhalation DAILY PRN Tobacco use date assessed: 07/03/23 Dental Screening Dental Screen Date: 07/03/23 HPI HPI Comments History of Present Illness Details 64-year-old female pmhx type 2 DM, RA, Sjogrens, fibromyalgia, OA, celiac, UC, polycythemia, likely NHL, presenting for intermittent confusion Intermittently r/o confusion-especially by spouse. Passes fast. Generally when falling or waking up from nap. She is falling asleep/nodding off easily. They are monitoring oxygen levels at home and intermittently but not frequently drops as low as 68%. She is generally low 90s. She is low in the office today and we placed her on 4L with increase to 93%. She has oxygen at home but rarely needing it. She has some increased cough recently. Is taking her daily abx for UTIs but does not have acute symptoms. she is overdue to see pulmonary. She has upcoming PFTs. She has upcoming phlebotomy scheduled. She is due for A1C. She endorses some balance issues, increased headaches and poor coordination. Heme/Onc: Patient follows for polycythemia. Had previous peripheral smear concerning for lymphoproliferative disorder ([facility]). Recent smear more reassuring. 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 Per patients she was scheduled for endoscopy/colonoscopy for evaluation however anesthesia wanted this held -she underwent pulmonary work up, cardiac work up. Endocrine: Type 2 diabetes: On humalog, tresiba, metformin. A1C 8.2. Also having lows which limits her uptitration without more information from a CGM which is ordered today. GI: History of duodenitis, esophagatis, colitis. Had double endoscopy 2020. Seen in 2022 with GI for possible repeat. Recently prescribed movantik though she reports this gave her opiate withdrawal. Pulm: Diagnosed with COPD. TENISHA on cpap. Following with Dr Nevarez. CV: HTN on amlodipine. Echo 06/2023. Hyperdynamic EF>70%. Mild pulmonary hypertension ID: Frequent UTI. Underwent mon pubis lift at [facility]. MSK/Rheum: Chronic pain: Multifactorial-RA/Sjogrens/Fibromyalgia/osteoarthrits/neuropathy. MRI 2020 disc desiccation at L5-S1 with annular bulge, disc protrustion, bony facet arthropathy on left L5-s1 impacting lateral aspect of the traversing left S1 nerve root. She repeated MRI in 2023. 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 Was following at pain management at [facility], previous to that Dr Wilkinson. On chronic opiate therapy, HCQ. She has some redness and swelling of the left elbow. Looks like developing cellulitis. She has nodularities that develop in the area then turn in boil like lesions. She saw dermatology recently. Tells me they werent concerned with low back rash or these lesions. She does use bactroban at home as needed. ROS see HPI PHYSICAL EXAM: GENERAL: Alert and oriented x 3. NAD. fatigued EYES: EOMI. Anicteric. HENT: Moist mucous membranes. No scleral icterus. No cervical lymphadenopathy. LUNGS: Decreased air entry. Scattered coarse rhonci CARDIOVASCULAR: Regular rate and rhythm. ABDOMEN: Soft, non-tender +bs EXTREMITIES: Left elbow swelling with some streaking erythmea SKIN: warm NEUROLOGIC: No focal neurological deficits. CN II-XII grossly intact PSYCHIATRIC: Cooperative. Appropriate mood and affect ON LICENSE OF [facility] Medical History Tobacco dependence due to cigarettes Diabetes mellitus with hyperglycemia Chronic pain syndrome [facility] (current) use of opiate analgesic Osteoporosis Sjogrens syndrome Rheumatoid arthritis Osteoarthritis Chronic, continuous use of opioids GERD (gastroesophageal reflux disease) Hx of difficult intubation Smoker COPD (chronic obstructive pulmonary disease) Asthma Polycythemia Boils Eczema Bursitis Disc degeneration Sleep apnea Diabetes Fibromyalgia Surgical History History of esophagogastroduodenoscopy (EGD) Hx of tonsillectomy History of surgical removal of pilonidal cyst Hx of plastic surgery Hx of hysterectomy Hx of cholecystectomy Hx of appendectomy History of colonoscopy History of bladder suspension procedure History of removal of cyst Family History Mother Polycythemia TIA (transient ischemic attack) Father Heart attack Other No family history of cancer Social History Household Members: Spouse Housing: House Are you a primary vision care associate to a significant other at home: No Do you presently have visiting nurse or other home services: No Alcohol intake: never Patient Tobacco Use Status: Current everyday Tobacco user Tobacco use type: Cigarette Cigarette Packs Per Day: 1 Cigarettes Per Day: 20.0 Years Smoked: 46 e-Cigarette/Vaping Use: Never Used Second Hand Smoke Exposure: Yes Advance Directives Date on File: 12/24/19 service: No Current occupational status: retired 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 Cognitive needs: No Hearing needs: No Vision needs: No Questionnaire Thrive Questionnaire Date Thrive assessed: 02/28/24 BERNARDO-7 AMB Questionnaire BERNARDO-7 Date BERNARDO - 7 assessed: 02/13/24 Source: Developed by Drs. Sumanth Stover, Sun Dan, Pavel Mckenzie and colleagues, with an educational joy from [employer]. Physical exam (Primary Care) Vital Signs: Last Vital Signs Pulse 89 05/31/24 16:00 BP 116/64 05/31/24 16:00 Pulse Ox 93 05/31/24 16:09 Oxygen Delivery Method Nasal Cannula 05/31/24 16:09 Oxygen Flow Rate 4 05/31/24 16:09 Tobacco/Smoking Status: Tobacco use Status Tobacco use date assessed 07/03/23 05/31/24 16:04 Patient Tobacco Use Status Current everyday Tobacco 05/31/24 16:04 Tobacco use type Cigarette 05/31/24 16:04 e-Cigarette/Vaping Use Never Used 05/31/24 16:04 Thrive Assessment: Date of Thrive Assessment Date Thrive assessed 02/20/24 05/31/24 17:50 Coding Level of Care Code Est Pt Level 5 (14630) Diagnoses Confusion R41.0 Increased frequency of headaches R51.9 Memory loss R41.3 Coordination abnormal R27.8 Time Spent (min) 50 Assessment & Plan Assessment & Plan (1) Confusion: Code(s): R41.0 - Disorientation, unspecified Category: Medical (2) Increased frequency of headaches: Code(s): R51.9 - Headache, unspecified Category: Medical (3) Memory loss: Code(s): R41.3 - Other amnesia Category: Medical (4) Coordination abnormal: Code(s): R27.8 - Other lack of coordination Category: Medical Plan Patient intermittent confusion/grogginess likely multifactorial. contributing factors could include chronic opioid use, UTI, cellulitis hypoxia, need for phlebotomy. She is having increased headaches, difficulty with small hand coordination, some tremor. I would like to get an MRI head. Labs and urine ordered. She currently has a cellulitis on the left arm. will treat with doxycycline. Patient will call if symptoms persist or worsen Orders: Orders UA CC w/rflx Micro + Cult 05/31/24.65 - Type 2 diabetes mellitus with hyperglycemia, J96.21 - Acute and chronic respiratory failure with hypoxia, Z79.4 - manager terminal (current) use of insulin MR head/brain wo con 05/31/24 R27.8 - Other lack of coordination, R41.0 - Disorientation, unspecified, R41.3 - Other amnesia, R51.9 - Headache, unspecified Hemoglobin A1c 05/31/24 E11.65 - Type 2 diabetes mellitus with hyperglycemia, M35.00 - Sjogren syndrome, unspecified, R51.9 - Headache, unspecified Comprehensive Met. Panel 05/31/24 E11.65 - Type 2 diabetes mellitus with hyperglycemia, R51.9 - Headache, unspecified Medications: Refilled doxycycline hyclate 100 mg PO BID 20 tabs 0RF
[2024-05-31 16:00] VITALS: BP 116/64; PULSE 89; O2SAT 84
[2024-05-31 16:09] VITALS: O2SAT 93
--- OUTSIDE RECORDS SUMMARY | 2024-05-31 18:08 | XMS_ITS | Encounter Summary ---
Author Organization [facility] Address [address] [place] [address] Care Team Providers Care Fusing Line Inspector Name Role Phone Dottie Douglass MD Primary Care Provider [phone] Encounter Details Date Type Department Care Team (Late st Contact Info) Description 09/25/2017 Scanned Document [facility] Plastic & Reconstructive Surgery [address] [place] [address] Nito Epperson MD [address] [facility] [address] [place] [address] Social History Tobacco Use Types Packs/Day Years Used Date Smoking Tobacco: Never Assessed Sex and Gender Information Value Date Recorded Sex Assigned at Not on file Gender Identity Not on file Sexual Orientation Not on file documented as of this encounter Plan of Treatment Not on file documented as of this encounter Visit Diagnoses Not on filedocumented in this encounter Care Teams Fusing Line Inspector Relationship Specialty Start Date End Date Dottie Douglass MD PCP - General Internal Medicine 08/04/17 documented as of this encounter
--- OUTSIDE RECORDS SUMMARY | 2024-05-31 18:08 | XMS_ITS | Clinical Summary ---
Author Organization [facility] Address [address] [place] [address] Care Team Providers Care Special Education Instructor Name Role Phone Dottie Douglass MD Primary Care Provider [phone] Allergies Active Allergy Reactions Criticality Noted Date [...] 08/09/2014 Active butalbital-aspirin- caffeine-codeine (FioriNAL WITH CODEINE) 54-365-57-30 MG capsule Take 1 capsule by mouth [...] 9:33 AM 03/24/2019 5:36 AM Care Teams Special Education Instructor Relationship Specialty Start Date End Date Dottie Douglass MD PCP - General Internal Medicine 08/04/17
--- OUTSIDE RECORDS SUMMARY | 2024-05-31 18:08 | XMS_ITS | Encounter Summary ---
Author Organization [facility] Address [address] [place] [address] Care Team Providers Care Belly Packer Name Role Phone Dottie Douglass MD Primary Care Provider [phone] Encounter Details Date Type Department Care Team (Late st Contact Info) Description 01/02/2018 Scanned Document [facility] Plastic & Reconstructive Surgery [place] [address] [facility] [address] [place] [address] Nito Epperson MD [address] [facility] [address] [place] [address] Social History Tobacco Use Types Packs/Day Years [...] on filedocumented in this encounter Care Teams Belly Packer Relationship Specialty Start Date End Date Dottie Douglass MD PCP - General Internal Medicine 08/04/17 documented as of this encounter
--- OUTSIDE RECORDS SUMMARY | 2024-05-31 18:08 | XMS_ITS | Patient Health Record ---
Author Organization [facility] Address [address] [place] [address] Care Team Providers Care Folder Tier Name Role Phone MAYI GASPAR MD Primary [...] Risk Notes Problem Lumbosacral spondylosis without myelopathy ([id number]) Spondylosis without myelopathy or radiculopathy, lumbar region (M47.816) Active confirmed Problem High risk drug monitoring status ([id number]) senior living (current) use of opiate analgesic (Z79.891) Active confirmed Plan Of Treatment Pending Test Test Name Order Date COCAINE QUANTITATIVE 05/07/2022 OXYCODONE QUANTITATIVE 05/07/2022 BARBITURATES QUANTITATIVE 05/07/2022 METHADONE QUANTITATIVE 05/07/2022 MDMA (ECSTASY) QUANTITATIVE 05/07/2022 TRAMADOL QUANTITATIVE 05/07/2022 FENTANYL QUANTITATIVE 05/07/2022 BUPRENORPHINE QUANTITATIVE 05/07/2022 BENZODIAZEPINE QUANTITATIVE 05/07/2022 OPIATES QUANTITATIVE 05/07/2022 MUSCLE RELAXANT, QUANTITATIVE 05/07/2022 Amphetamine 05/07/2022 LAB REPORT 05/07/2022 WIRT DRUG PANEL,UR 05/07/2022 Insurance Providers Payer Name Payer Address Payer Phone Subscriber Number Group Number Insured Name Patient Relationship to Insured Coverage Start Date Coverage End Date DEEPTI Sams [address] [place] [address] [id number] BRITNEY Keane Spouse - patient is the [...]
--- OUTSIDE RECORDS SUMMARY | 2024-05-31 18:08 | XMS_ITS | Clinical Summary ---
Author Organization [facility] Address [address] [place] [address] Care Team Providers Care Process Expert Name Role Phone Dottie Douglass MD Primary Care Provider [phone] Allergies Active Allergy Reactions Criticality Noted Date [...] T PO BID 0 06/17/19 19 Active EdgeioTOUCH ULTRA CONTROL solution See admin instructions. 0 [...] for 3 days. 3 tablet 3 01/24/20 Active Additional Information Patient not taking.Reported on 10/13/2020 LORazepam (Ativan) 1 mg tablet Take tablet 30 minutes prior to procedure. Hold other medications as discussed. Do not drive while taking medication. 1 tablet 03/19/19 Active oxyCODONE (ROXICODONE) 5 mg immediate release tablet Take 10 mg by mouth every 8 hours as needed. 07/31/19 15 Active sulfamethoxazole -trimethoprim (BACTRIM DS) 800-160 mg per tablet Take 1 tablet by mouth. for 7 days 04/05/19 Active meclizine (ANTIVERT) 25 mg tablet TAKE 1 TABLET BY MOUTH EVERY 8 HOURS NEEDED FOR DIZZINESS 04/03/19 Active diazePAM (VALIUM) 2 mg tablet TAKE 1-2 TABLETS BY MOUTH TWICE DAILY NEEDED 03/21/19 Active codeine-butalbit al-ASA-caff (FIORINAL WITH CODEINE) capsule Take 1 capsule by mouth every 8 hours as needed. 06/25/19 Active ammonium lactate (LAC-HYDRIN) 12 % cream APPLY CREAM TOPICALLY TO AFFECTED AREA TWICE DAILY NEEDED 01/22/20 Active fluconazole (Diflucan) 150 mg tablet Take one tablet daily for 3 days 3 tablet 1 05/20/19 Active Additional Information Patient not taking.Reported on 10/13/2020 hydrOXYchloroQUI NE (PLAQUENIL) 200 mg tablet TAKE 1 TABLET(200 MG) BY MOUTH DAILY 90 tablet 1 01/30/20 Active diclofenac (VOLTAREN) 75 mg EC tablet Take one tablet twice daily prn 60 tablet 1 02/13/20 Active nystatin (MYCOSTATIN) 100,000 unit/mL suspension Swish [...] Date Smoking Tobacco: Every Day Cigarettes 1 51.3 Started: 1973 Pipe Smokeless Tobacco: Never Comments:PIPE [...] 1982 Cervical Cancer Screening 05/30/1991 HPV/Cotest 05/30/1991 Pneumococcal Vaccine, 50+ Ye ars (1 of 1 - PCV) 05/30/2011 Zoster Vaccines (1 of 2) 05/30/2011 COVID-19 Vaccine (1 - 2023-2 5 season) 2023 Influenza Vaccine (Season Ended) 2024 HPV Vaccines Aged Out No longer eligi [...] patient's age to complete this topic [place] [address] [place] [address] [employer] Care Teams Process Expert Relationship Specialty Start Date End Date Dottie Douglass MD [facility] [place] [address] PCP - General Internal Medicine 10/13/20
== END 2024-05-31 17:12 | disposition home or self-care (01) ==
LOC: HO.HMCFM 15:49
PROVIDERS: PCP Internal Medicine; Visit Provider Internal Medicine
DX: R41.0 Disorientation, unspecified (principal); R51.9 Headache, unspecified; R41.3 Other amnesia; R27.8 Other lack of coordination

== ENCOUNTER → 2024-05-31 15:49 | Outpatient (BNVA) | payer OTHER, SELFPAY | PROVIDERS: PCP Internal Medicine; Visit Provider Internal Medicine ==

== ENCOUNTER 2024-06-10 16:14 | Outpatient (REF) | payer OTHER, SELFPAY ==
--- NOTE | 2024-06-10 16:17 | PFT_ITS ---
Flows: FEV1: 37 % of predicted at 0.90 L FVC: 57 % of predicted at 1.76 L FEV1/FVC: 51 % Bronchodilator response: Present Volumes: Total lung capacity: 88 % of predicted at 4.45 L Residual volume: 160 % of predicted at 2.86 L Slow vital capacity: 49 % of predicted at 1.60 L Expiratory reserve volume: 14 % of predicted at 0.12 L Diffusion capacity: Severely decreased, adjusts to being moderately decreased after correction for alveolar ventilation. Impression: Severe to very severe obstructive ventilatory defect with positive bronchodilator response. Increased residual volume suggests air trapping. Decreased expiratory reserve volume suggests extrathoracic restriction likely secondary to abdominal obesity. Decreased diffusion capacity suggests emphysema. MTDD
[2024-06-10 17:02] VITALS: PULSE 98; O2SAT 88
--- OUTSIDE RECORDS SUMMARY | 2024-06-10 18:36 | XMS_ITS | Encounter Summary ---
Author Organization [facility] Address [address] [place] [address] Care Team Providers Care Material Assistant Name Role Phone Dottie Douglass MD Primary Care Provider [phone] Encounter Details Date Type Department Care Team (Late st Contact Info) Description 01/02/2018 Scanned Document [facility] Plastic & Re[facility]ive Surgery [place] [address] [facility] [address] [place] [address] Nito Epperson MD [address] [place] [address] [address] [place] [address] Social History Tobacco Use Types Packs/Day Years Used Date Smoking Tobacco: Every Day Smokeless Tobacco: Never Alcohol Use Standard Drinks/Week Comments No 0 (1 standard drink = 0.6 oz pur e alcohol) AUDIT-C Answer Date Recorded Frequency of Alcohol Consumption Never 12/11/2017 Average Number of Drinks Not on file 018 Frequency of Binge Drinking Not on file 11/18 Comments Unknown Sex and Gender Information Value Date Recorded Sex Assigned at Not on file Legal Sex Female 12:49 AM EDT Gender Identity Not on file Sexual Orientation Not on file documented as of this encounter Plan of Treatment Not on file documented as of this encounter Visit Diagnoses Not on filedocumented in this encounter Care Teams Material Assistant Relationship Specialty Start Date End Date Dottie Douglass MD PCP - General Internal Medicine 08/04/17 documented as of this encounter
--- OUTSIDE RECORDS SUMMARY | 2024-06-10 18:36 | XMS_ITS | Encounter Summary ---
Author Organization [facility] Address [address] [place] [address] Care Team Providers Care Auto Damage Appraiser Name Role Phone Dottie Douglass MD Primary Care Provider [phone] Encounter Details Date Type Department Care Team (Late st Contact Info) Description 09/25/2017 Scanned Document [facility] Plastic & Reconstructive Surgery [address] [place] [address] Nito Epperson MD [address] [facility] [address] [place] [address] Social History Tobacco Use Types Packs/Day Years Used Date Smoking Tobacco: Never Assessed Comments Unknown Sex and Gender Information Value Date Recorded Sex Assigned at Not on file Legal Sex Female 12:49 AM EDT Gender Identity Not on file Sexual Orientation Not on file documented as of this encounter Plan of Treatment Not on file documented as of this encounter Visit Diagnoses Not on filedocumented in this encounter Care Teams Auto Damage Appraiser Relationship Specialty Start Date End Date Dottie Douglass MD PCP - General Internal Medicine 08/04/17 documented as of this encounter
--- OUTSIDE RECORDS SUMMARY | 2024-06-10 18:37 | XMS_ITS | Clinical Summary ---
Author Organization [facility] Address [address] [place] [address] Care Team Providers Care Review Analyst Name Role Phone Dottie Douglass MD Primary Care Provider [phone] Allergies Active Allergy Reactions Criticality Noted Date [...] T PO BID 0 06/17/19 19 Active Happy InspectorTOUCH ULTRA CONTROL solution See admin instructions. 0 [...] hemoglobin 07/19/2014 Extreme obesity 07/19/2014 Fibrositis 07/19/2014 Fracture, stress, metatarsal 07/19/2014 Combined fat [...] Smokes tobacco daily 07/19/2014 Diabetes mellitus 06/28/2014 Resolved Problems Problem Noted Date Diagnosed Date Resolved Date Flu vaccine need 07/19/2014 06/08/2024 Family History Medical History Relation Comments Alcohol [...] complete this topic Insurance [employer] Care Teams Review Analyst Relationship Specialty Start Date End Date Dottie Douglass MD [address] [address] PCP - General Internal Medicine 10/13/20
--- OUTSIDE RECORDS SUMMARY | 2024-06-10 18:37 | XMS_ITS | Clinical Summary ---
Author Organization [facility] Address [address] [place] [address] Care Team Providers Care Tmh Teacher Name Role Phone Dottie Douglass MD Primary Care Provider [phone] Allergies Active Allergy Reactions Criticality Noted Date [...] Intolerance/Nausea/V omiting,Myalgia/Myos itis/Arthralgia/Arth ritis Low 12/11/2017 Medications oxyCODONE (ROXICODONE) 5 MG immediate release tablet Take 10 mg by mouth 3 times daily (every 8 hours) as needed. 8 Active hydroxychloroqui ne (PLAQUENIL) 200 MG tablet Take 200 mg by mouth nightly. 0 8 Active diclofenac (VOLTAREN) 1 % gel Place on the skin daily as needed. 4 Active Naloxone HCl (NARCAN IJ) Inject as directed. Active ammonium lactate (LAC-HYDRIN) 12 % cream APPLY CREAM TOPICALLY TO AFFECTED AREA TWICE DAILY NEEDED 9 Active aspirin (JESE ASPIRIN) 325 MG tablet Take 325 mg by mouth nightly. 9 Active Blood Glucose Calibration (OT ULTRA/FASTTK CNTRL SOLN) Solution See admin instructions. 9 Active albuterol (PROVENTIL HFA; VENTOLIN HFA) 108 (90 Base) MCG/ACT inhaler Inhale 2 puffs every 4 (four) hours as needed. 5 Active butalbital-aspir lf-bqdsltim-gknf ine (FioriNAL WITH CODEINE) 42-134-81-30 MG capsule Take 1 capsule by mouth 3 times daily (every 8 hours) as needed. 9 Active Blood Glucose Monitoring Suppl (ONE TOUCH ULTRA 2 DEVICE KIT) w/Device Kit USE TO TEST BLOOD SUGAR 9 Active cyclobenzaprine (FLEXERIL) 10 MG tablet Take 10 mg by mouth 2 times daily (every 12 hours) as needed. 3 Active diazepam (VALIUM) 2 MG tablet Take 2 mg by mouth 2 (two) times a day. 9 Active diclofenac enteric coated (VOLTAREN) 75 MG EC tablet Take 75 mg by mouth daily as needed. 9 Active EPINEPHrine (EPIPEN 2-EYAL) 0.3 mg/0.3 mL IJ auto-injection Inject 0.3 mg into the shoulder, thigh, or buttocks once as needed. 5 Active hyoscyamine (LEVSIN) 0.125 MG tablet Take 0.125 mg by mouth daily as needed. Active ibuprofen (MOTRIN) 800 mg tablet TK 1 T PO Q 8 H PRN P 9 Active Loratadine 10 MG Cap Take 1 tablet by mouth 2 (two) times a day. Active metFORMIN (GLUCOPHAGE) 1000 MG tablet Take 1,000 mg by mouth 2 (two) times a day with meals. 5 Active magnesium oxide (MAG-OX) 400 MG tablet Take 400 mg by mouth nightly. 9 Active montelukast (SINGULAIR) 10 MG tablet Take 10 mg by mouth nightly. 9 Active mupirocin (BACTROBAN) 2 % cream APPLY AND GENTLY MASSAGE INTO AFFECTED AREAS TWICE DAILY 5 Active ondansetron (ZOFRAN) 8 MG tablet TAKE 1 TABLET BY MOUTH EVERY 6 HOURS NEEDED 5 Active PANTOprazole (PROTONIX) 40 MG EC tablet TK 1 T PO D 6 Active morphine (MS CONTIN) 15 MG ER (extended release) tablet Take 15 mg by mouth every morning. Active Multiple Vitamin (MULTIVITAMIN) capsule Take 1 capsule by mouth daily. Active LANTUS 100 UNIT/ML injectionIndicat ions:Abdominal pannus Inject 0.4 mL (40 Units total) under the skin 2 (two) times a day. 10 mL 0 Active insulin lispro (HumaLOG) 100 UNIT/ML cartridge injectionIndicat ions:Abdominal pannus Inject 0.3 mL (30 Units total) under the skin 3 (three) times a day before meals. 1 cartridge 0 Active cephalexin (KEFLEX) 500 MG capsuleIndicatio ns:Abdominal pannus Take 1 capsule (500 mg total) by mouth 3 times daily (every 8 hours). 21 capsule 0 Active Active Problems Problem Noted Date Diagnosed [...] Virus Screening 1961 COVID-19 Vaccine (#1) 1966 HIV Screening 1974 DTaP/Tdap/Td Vaccines (1 - [...] 6:20 AM EST 03/24/2019 6:48 AM EST us Nito Epperson MD LAB BLOOD ORDERABLES Fi nal Result HOSPITAL LAB from Last 3 Months or Most Recently Relevant to Health Maintenance Insurance [facility] Advance Directives * Full Code (Latest Code Status on File) Date Activated Date Inactivated Comments 03/24/2019 5:36 AM Question Answer Comments Decision Thoroughly Discussed with: Patient * Full Code Date Activated Date Inactivated Comments 03/23/2019 9:33 AM 03/24/2019 5:36 AM Care Teams Tmh Teacher Relationship Specialty Start Date End Date Dottie Douglass MD PCP - General Internal Medicine 08/04/17
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
== END 2024-06-10 16:15 | disposition home or self-care (01) ==
LOC: HO.RESP 16:14
PROVIDERS: PCP Internal Medicine; Visit Provider Internal Medicine Pulmonary Disease
DX: J43.9 Emphysema, unspecified (principal); R94.2 Abnormal results of pulmonary function studies
CPT/HCPCS: 94010; 94727; 94729

== ENCOUNTER → 2024-06-10 16:17 | Outpatient (BNV) | payer OTHER, SELFPAY | PROVIDERS: PCP Internal Medicine; Visit Provider Internal Medicine Pulmonary Disease | DX: J43.9 Emphysema, unspecified (principal) | CPT/HCPCS: 94060; 94727; 94729 ==

== ENCOUNTER 2024-06-22 20:06 | Emergency (ER) | payer OTHER, SELFPAY ==
--- NOTE | ~2024-06-22 | XR_ITS ---
CLINICAL HISTORY: sob 1 view chest x-ray Comparison: CR - XR CHEST 1V - 02/27/24 04:28 EST Findings: Mildly prominent pulmonary vasculature. No consolidation. No definite pleural effusion. Cardiomegaly. Similar to prior. Right shoulder arthroplasty. No fracture. IMPRESSION: Cardiomegaly with possible volume overload. This document has been electronically signed by: Paul Yarbrough MD on 06/23/2024 00:30:33
[2024-06-22 20:19] VITALS: BP 151/84; BP 153/70; PULSE 84; PULSE 86; RESP 20; TEMP 36.9; O2SAT 95; BMI 39.0
[2024-06-22 20:29] VITALS: BP 147/67; PULSE 82; RESP 14; O2SAT 97
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
[2024-06-22 22:13] VITALS: BP 101/55; PULSE 67; RESP 19; TEMP 37; O2SAT 97
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
--- NOTE | 2024-06-22 23:40 | ECG_ITS ---
Test Reason : CP Blood Pressure : */* mmHG Vent. Rate : 68 BPM Atrial Rate : 68 BPM P-R Int : 146 ms QRS Dur : 84 ms QT Int : 396 ms P-R-T Axes : 45 108 46 degrees QTcB Int : 421 ms Normal sinus rhythm Rightward axis Borderline ECG When compared with ECG of 16-Mar-2024 08:16, Minimal criteria for Anterior infarct are no longer Present Referred By: Valente Leung Electronically Signed By: CHULA DANIELLE
[2024-06-22] MEDS: Albuterol Sulfate (0.083%) 2.5 MG/3 ML VIAL.NEB 10 MG INHALE (23:54)
[2024-06-23 00:02] VITALS: PULSE 69; RESP 20; O2SAT 95
[2024-06-23 00:10] LABS: MANUAL DIFF FLAG NO
[2024-06-23 00:12] LABS: Basophils Absolute Auto 0.1 X10*3/uL (0.0-0.2); Basophils Percent Auto 0.7 % (0-2); Eosinophils Absolute Auto 0.5 X10*3/uL (0.0-0.4); Eosinophils Percent Auto 4.4 % (0-4); Hematocrit 48.2 % (37.0-47.0); Hemoglobin 15.4 g/dl (12.0-16.0); Imm Gran Abs Auto 0.05 X10*3/uL (0.00-0.03); Imm Gran Pct Auto 0.5 % (0.0-0.4); Lymphocytes Absolute Auto 1.6 X10*3/uL (1.2-4.9); Lymphocytes Percent Auto 15.6 % (20-40); Mean Corpuscular Hemoglobin 26.6 pg (27.0-33.0); Mean Corpuscular Volume 83.2 fL (80.0-98.0); Mean Platelet Volume 9.6 fL (9.4-12.3); Monocytes Absolute Auto 0.7 X10*3/uL (0.1-1.2); Monocytes Percent Auto 6.7 % (2-11); Neutrophils Absolute Auto 7.6 x10*3/uL (2.0-8.3); Neutrophils Percent Auto 72.1 % (45-73); Platelet Count 201 X10*3/uL (160-400); Red Blood Count 5.79 X10*6/uL (4.20-5.50); Red Cell Distribution Width 17.6 % (11.0-16.0); White Blood Count 10.5 X10*3/uL (4.8-10.8)
[2024-06-23] MEDS: methylPREDNISolone Sod Succ 125 MG/2 ML VIAL IVPUSH (00:12)
[2024-06-23 00:27] LABS: Alanine Aminotransferase 18 U/L (0-31); Albumin Level 3.6 g/dL (3.5-5.0); Alkaline Phosphatase 88 U/L (39-117); Anion Gap 12 (12-20); Aspartate Amino Transferase 24 U/L (5-31); Bilirubin Total 0.5 mg/dL (0.0-1.0); Blood Urea Nitrogen 9 mg/dL (9-16); Calcium 8.6 mg/dL (8.4-10.2); Carbon Dioxide 29 mmol/L (22-29); Chloride 102 mmol/L (96-108); Creatinine Clr Calc Pharmacy 116.1; Estimated Glomerular Filt Rate > 60; Glucose Random 248 mg/dL (60-115); Potassium 4.4 mmol/L (3.3-5.1); Sodium 139 mmol/L (135-145); Total Protein 6.6 g/dL (6.5-8.0)
[2024-06-23 00:33] LABS: Troponin-I High Sensitivity 9.5 ng/L (<3.5-17.0)
[2024-06-23 00:50] LABS: Influenza A PCR NEGATIVE (Negative); Influenza B PCR NEGATIVE (Negative); Resp Syncy Virus RNA Qual PCR NEGATIVE (Negative); SARS COV2 PCR INHOUSE NEGATIVE (Negative)
[2024-06-23] MEDS: oxyCODONE HCl Immed Release 5 MG TABLET 10 MG PO (02:06)
[2024-06-23 02:15] VITALS: BP 145/69; PULSE 77; RESP 20; TEMP 36.7; O2SAT 98
[2024-06-23 02:26] VITALS: BP 145/69; PULSE 77; RESP 20; TEMP 36.7; O2SAT 98
== END 2024-06-23 02:56 | disposition home or self-care (01) ==
PROVIDERS: Emergency Provider Internal Medicine; PCP Internal Medicine
DX: J44.1 Chronic obstructive pulmonary disease with (acute) exacerbation (principal); G89.4 Chronic pain syndrome; R05.9 Cough, unspecified; E11.9 Type 2 diabetes mellitus without complications; F17.210 Nicotine dependence, cigarettes, uncomplicated; Z79.82 Long term (current) use of aspirin; Z79.4 Long term (current) use of insulin; Z79.891 Long term (current) use of opiate analgesic; Z79.899 Other long term (current) drug therapy; Z03.818 Encounter for observation for suspected exposure to other biological agents ruled out
CPT/HCPCS: 0241U; 36415; 71045; 80053; 84484; 85025; 93005; 94640; 96374; 99284; 99285; J2919

== ENCOUNTER → 2024-06-22 23:40 | Outpatient (BNV) | payer OTHER, SELFPAY | PROVIDERS: Emergency Provider Internal Medicine; PCP Internal Medicine; Visit Provider Internal Medicine | DX: R07.9 Chest pain, unspecified (principal) | CPT/HCPCS: 93010 ==

== ENCOUNTER → 2024-06-23 | Outpatient (BNV) | payer OTHER, SELFPAY | PROVIDERS: Emergency Provider Internal Medicine; PCP Internal Medicine; Visit Provider Radiology Diagnostic Radiology | DX: I51.7 Cardiomegaly (principal) | CPT/HCPCS: 71045 ==

== ENCOUNTER 2024-07-27 02:47 | Inpatient (IN) | payer OTHER, SELFPAY ==
[2024-07-27] VITALS (11 sets, daily range): BP systolic 110–150; BP diastolic 63–99; PULSE 66–107; RESP 12–20; TEMP 36–38.2; O2SAT 93–97; BMI 36.7
--- NOTE | ~2024-07-27 | US_ITS ---
EXAMINATION: US TRIPLEX LOWER EXTREMITY, LEFT CLINICAL INFORMATION: Swelling left greater than right, rule out DVT left lower extremity. COMPARISON: None available. TECHNIQUE: Color-flow triplex imaging with spectral analysis and compression Doppler were performed on the left lower extremity. FINDINGS: Respiratory variation, normal compression and augmented flow are noted throughout the left lower extremity. The visualized common femoral vein, superficial femoral vein, profunda femoral vein, popliteal vein and midcalf peroneal and posterior tibial venous segments show no evidence of deep venous thrombosis. There is no Walton's cyst. US/US venous duplex LE LT IMPRESSION: No evidence of deep venous thrombosis involving the left lower extremity. Electronically signed by: Erik Zimmerman MD 07/27/2024 11:15 AM EDT
--- NOTE | ~2024-07-27 | XR_ITS ---
CLINICAL HISTORY: dyspnea 1 view chest x-ray Comparison: CR - XR CHEST 1V - 06/23/24 00:06 EDT Findings: No consolidation or effusion. Cardiomegaly similar to prior. Right shoulder arthroplasty. No fractures. IMPRESSION: Cardiomegaly without failure. This document has been electronically signed by: Paul Yarbrough MD on 07/27/2024 04:41:29
--- NOTE | ~2024-07-27 | CT_ITS ---
CLINICAL HISTORY: dyspnea, hypoxia, pleuritic sharp chest pains CT angiography chest with contrast. 3D Postprocessing. Comparison: CR - XR CHEST 1V - 07/27/24 04:05 EDT CR - XR CHEST 1V - 06/23/24 00:[address] - CT ANGIO CHEST PE PROTOCOL - 02/27/24 11:[address]/SR - CT ANGIO CHEST PE PROTOCOL - 03/06/23 19:21 EST Findings: Similar dilatation of the pulmonary trunk at 3.8 cm which may relate to pulmonary arterial hypertension. No acute pulmonary embolism evident. Ascending aorta upper normal at 3.7 cm. Mid descending aorta 2.6 cm. No plaque, stenosis or dissection. Streak artifact from dense contrast in the innominate vein limiting assessment of the origin of the great vessels. No apparent stenosis or dissection. Paraseptal emphysema and diffuse subpleural interstitial fibrosis similar to priors. Mild basilar airspace opacities likely atelectasis and less typical for pneumonia or aspiration. No discrete lung nodule, pleural effusion or pneumothorax. No thyroid nodules. Similar enlarged mediastinal and bilateral hilar lymph nodes. Thin-section images from priors not available. As such, no marked change evident. Enlarged nodes can be seen in chronic interstitial lung disease. Stable mild cardiomegaly. No pericardial effusion. Nonspecific increased right ventricle ratio which may be accentuated by left ventricular hypertrophy. Esophagus within normal limits. Trace non specific perihepatic ascites. Significance uncertain. If symptoms referable to the abdomen, consider dedicated CT abdomen/pelvis. Right shoulder arthroplasty. No acute or aggressive appearing bone lesion. Soft tissues unremarkable. IMPRESSION: No acute pulmonary embolism or aortic dissection. Similar dilatation of the pulmonary trunk and correlation for pulmonary arterial hypertension. Similar enlarged mediastinal and hilar lymph nodes. Similar diffuse emphysema and subpleural interstitial fibrosis. Mild cardiomegaly. Nonspecific increased right ventricle ratio. Trace perihepatic ascites new from priors. Significance and etiology uncertain. If symptoms referable to the abdomen, follow-up dedicated CT abdomen/pelvis suggested. This document has been electronically signed by: Chuck Rowley MD on 07/27/2024 06:03:33
--- NOTE | 2024-07-27 03:10 | ECG_ITS ---
Test Reason : sob, cp Blood Pressure : */* mmHG Vent. Rate : 100 BPM Atrial Rate : 100 BPM P-R Int : 114 ms QRS Dur : 88 ms QT Int : 298 ms P-R-T Axes : 60 133 10 degrees QTcB Int : 384 ms Normal sinus rhythm Possible Left atrial enlargement Left posterior fascicular block Possible Anterior infarct , age undetermined Abnormal ECG When compared with ECG of 22-Jun-2024 23:52, No significant change was found Referred By: Lorraine Hammond Electronically Signed By: RA ROBERSON MD
[2024-07-27] MEDS: Albuterol Sulfate (0.083%) 2.5 MG/3 ML VIAL.NEB INHALE ×2 (03:27→20:01)
[2024-07-27 03:29] LABS: Basophils Absolute Auto 0.1 X10*3/uL (0.0-0.2); Basophils Percent Auto 0.6 % (0-2); Eosinophils Absolute Auto 0.3 X10*3/uL (0.0-0.4); Eosinophils Percent Auto 2.4 % (0-4); Hematocrit 51.2 % (37.0-47.0); Hemoglobin 16.2 g/dl (12.0-16.0); Imm Gran Abs Auto 0.07 X10*3/uL (0.00-0.03); Imm Gran Pct Auto 0.5 % (0.0-0.4); Lymphocytes Absolute Auto 1.6 X10*3/uL (1.2-4.9); Lymphocytes Percent Auto 11.7 % (20-40); MANUAL DIFF FLAG NO; Mean Corpuscular HGB Conc 31.6 g/dl (31.0-35.0); Mean Corpuscular Hemoglobin 26.5 pg (27.0-33.0); Mean Corpuscular Volume 83.7 fL (80.0-98.0); Mean Platelet Volume 9.9 fL (9.4-12.3); Monocytes Percent Auto 7.3 % (2-11); Neutrophils Absolute Auto 10.7 x10*3/uL (2.0-8.3); Neutrophils Percent Auto 77.5 % (45-73); Platelet Count 200 X10*3/uL (160-400); Red Blood Count 6.12 X10*6/uL (4.20-5.50); Red Cell Distribution Width 16.8 % (11.0-16.0); White Blood Count 13.9 X10*3/uL (4.8-10.8)
[2024-07-27] MEDS: Lactated Ringers 1,000 ML 999 ML IV (03:29)
[2024-07-27] MEDS: cefTRIAXone sodium 1 GM VIAL IVPUSH (03:38)
--- NOTE | 2024-07-27 03:45 | ED.SOB ---
HPI - SOB/Dyspnea General Chief Complaint: Dyspnea Stated Complaint: SOB, diff, hx of COPD Time Seen by Provider: 07/27/24 03:02 Source: patient and old records reviewed Mode of arrival: ambulatory Limitations: no limitations History of Present Illness ED Provider: LEYDI RÍOS Narrative: 64 yo female with chronic TENISHA, chronic smoker, COPD, Sjogrens disease, GERD, chronic pain who notes 2 days of cough, sputum, not feeling well. Her O2 is PRN and she has been using 2 to 4l NC. EMS notes blood sugar was high. She did not know she had a fever. She states her chest feels tight and it is sharp at times. She has no n/v/d, no dysuria. Patient denies travel. She states I don't know much, my has all the answers MD elicited complaint: shortness of breath and cough Pertinent past history: COPD Onset (ago): day(s) (2) Context: recent illness and occurred during exertion Timing: constant Severity: moderate Exacerbating factors: exertion and coughing Relieving factors: rest and bronchodilators Known history of: COPD Associated symptoms: wheezing Treatment prior to arrival: oxygen Related Data Home Medications ?Medication ?Instructions ?Recorded ?Confirmed aspirin 325 mg tablet 325 mg PO DAILY@1230 09/27/20 02/27/24 loratadine 10 mg tablet 10 mg PO 0030 09/27/20 02/27/24 hyoscyamine sulfate 0.125 mg tablet 0.125 mg PO DAILY 07/03/23 02/27/24 pantoprazole 40 mg tablet,delayed 40 mg PO BID@0630,1630 02/27/24 02/27/24 release umeclidinium 62.5 mcg-vilanterol 1 ea inhalation DAILY PRN 02/27/24 02/27/24 25 mcg/actuation powdr for Shortness Of Breath Or Wheezing inhalation (Anoro Ellipta) Previous Rx's ?Medication ?Instructions ?Recorded naloxone 4 mg/actuation nasal spray 4 mg intranasal Q2M PRN opioid 08/27/21 overdose #2 ea amlodipine 10 mg tablet 10 mg PO DAILY 90 days #90 tabs 07/03/23 blood-glucose meter #1 ea 08/25/23 montelukast 10 mg tablet 10 mg PO DAILY 90 days #90 tabs 08/25/23 albuterol sulfate 90 mcg/actuation 2 puff PO Q6H PRN wheezing #8.5 08/29/23 aerosol inhaler grams cyclobenzaprine 5 mg tablet 5 mg PO BID PRN Pain 90 days #180 10/29/23 tabs diclofenac sodium 75 mg 75 mg PO BID PRN Pain #180 tabs 11/21/23 tablet,delayed release magnesium oxide 400 mg (241.3 mg 400 mg PO BID #90 tabs 12/12/23 magnesium) tablet FreeStyle Mag 3 Plus Sensor #6 ea 12/16/23 (blood-glucose sensor) FreeStyle Mag 3 [place] #1 ea 12/16/23 (blood-glucose,physical damage appraiser,cont) metformin 1,000 mg tablet 1,000 mg PO BID 90 days #180 tabs 12/30/23 colloidal oatmeal 1 % topical 1 appl topical TID #226 grams 01/19/24 cream (Eucerin Eczema Relief) mupirocin 2 % topical ointment 1 appl topical DAILY #50 grams 01/19/24 diazepam 2 mg tablet 2 mg PO BEDTIME PRN Anxiety 30 01/20/24 days #30 tabs pramipexole 0.25 mg tablet 1 mg (4 x 0.25 mg) PO DAILY #360 01/23/24 tabs hydroxychloroquine 200 mg tablet 200 mg PO DAILY #90 tabs 02/17/24 albuterol sulfate 2.5 mg/3 mL 2.5 mg (3 mL) inhalation Q4-6H PRN 02/20/24 (0.083 %) solution for nebulization shortness of breath or wheezing #180 mL nicotine 21 mg/24 hr daily 21 mg transdermal DAILY #30 ea 03/01/24 transdermal patch insulin lispro 100 unit/mL 30 unit (0.3 mL) subcut TID #45 mL 03/09/24 subcutaneous pen (Humalog KwikPen (U-100) Insulin) losartan 25 mg tablet 25 mg PO DAILY 90 days #90 tabs 04/07/24 prednisone 20 mg tablet 40 mg (2 x 20 mg) PO DAILY #10 tabs 04/07/24 Oxygen Home Use #1 ea 04/16/24 nystatin 100,000 unit/mL oral 5 ml PO DAILY #250 mL 04/26/24 suspension nicotine (polacrilex) 4 mg buccal 4 mg buccal Q4H PRN nicotine 05/10/24 mini lozenge cravings #72 ea pregabalin 75 mg capsule (Lyrica) 75 mg PO BID #180 caps 05/10/24 baclofen 10 mg tablet 10 mg PO BID #180 tabs 05/11/24 diclofenac sodium 1 % topical gel 4 g topical QID #100 grams 05/11/24 doxycycline hyclate 100 mg tablet 100 mg PO BID #20 tabs 05/31/24 oxycodone 5 mg tablet 10 mg (2 x 5 mg) PO QID PRN pain 06/15/24 28 days #224 tabs clotrimazole 1 % topical cream 1 appl topical TID #45 grams 06/16/24 prednisone 20 mg tablet 40 mg (2 x 20 mg) PO DAILY #10 tabs 06/23/24 oxycodone 10 mg tablet 10 mg PO QID PRN pain 28 days #112 07/06/24 tabs morphine 30 mg tablet,extended 30 mg PO BID@0030,1230 28 days #56 07/08/24 release tabs ondansetron 8 mg disintegrating 8 mg PO Q12H #60 tabs 07/08/24 tablet cefuroxime axetil 500 mg tablet 500 mg PO BID #6 tabs 07/21/24 stilvnn-pgtvwwnfsw-QAE-caffeine 30 1 cap PO QID PRN headache 28 days 07/26/24 mg-50 mg-325 mg-40 mg capsule #28 caps linaclotide 145 mcg capsule 145 mcg PO DAILY #90 caps 07/26/24 fluconazole 150 mg tablet 150 mg PO Q3D 2 doses #7 tabs 07/27/24 Allergies Allergy/AdvReac Type Severity Reaction Status Date / Time atorvastatin [From LIPITOR] Allergy Severe Difficulty Verified 07/27/24 03:12 Breathing azithromycin [AZITHROMYCIN] Allergy Severe Difficulty Verified 07/27/24 03:12 Breathing mite-Dermatophagoides Allergy Severe Difficulty Verified 07/27/24 03:12 farinae, vicente Breathing [dust mite - [place]] sumatriptan [From IMITREX] Allergy Severe Difficulty Verified 07/27/24 03:12 Breathing house dust Allergy Mild Unknown Verified 07/27/24 03:12 acetaminophen [From TYLENOL] Allergy Unknown Itching Verified 07/27/24 03:12 adhesive tape [ADHESIVE TAPE] Allergy Unknown Rash Verified 07/27/24 03:12 gentamicin [GENTAMICIN] Allergy Unknown Rash Verified 07/27/24 03:12 adalimumab [From Humira] Allergy Rash Verified 07/27/24 03:12 erythromycin base Allergy Unknown Verified 07/27/24 03:12 haloperidol [From HALDOL] AdvReac Unknown GI Issues Verified 07/27/24 03:12 ketorolac [From TORADOL] AdvReac Unknown Muscle Verified 07/27/24 03:12 cramps prasterone (DHEA) [From DHEA] AdvReac Unknown Cardiac Verified 07/27/24 03:12 issues varenicline [From CHANTIX] AdvReac Unknown Seizure Verified 07/27/24 03:12 ipratropium [From Atrovent] AdvReac Migraine Verified 07/27/24 03:12 Review of Systems Review of Systems: Constitutional : No Fever, No Chills ENT/Mouth : No Hoarseness, No sore throat, No Rhinorrhea Eyes: No Redness, No Discharge, No Vision Changes Cardiovascular : pos Chest Pain, positive SOB, positive Dyspnea on Exertion, No Edema Respiratory : positive Cough, No Sputum, positive Wheezing, Gastrointestinal : No Nausea, No Vomiting, No Diarrhea, No abdominal Pain Genitourinary : No Dysuria, No Hematuria Musculoskeletal : No joint pain, No Myalgias Skin : No rash Neuro : No Weakness, No Numbness, No Headache All other systems reviewed and are negative PMFSH Past Medical History Attestation statement: The following information was validated with the patient. 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 Osteoporosis Sjogrens syndrome Rheumatoid arthritis Osteoarthritis Chronic, continuous use of opioids GERD (gastroesophageal reflux disease) Hx of difficult intubation Smoker COPD (chronic obstructive pulmonary disease) Asthma Polycythemia Boils Eczema Bursitis Disc degeneration Sleep apnea Diabetes Fibromyalgia Surgical History History of esophagogastroduodenoscopy (EGD) Hx of tonsillectomy History of surgical removal of pilonidal cyst Hx of plastic surgery Hx of hysterectomy Hx of cholecystectomy Hx of appendectomy History of colonoscopy History of bladder suspension procedure History of removal of cyst Family History Family History Mother Polycythemia TIA (transient ischemic attack) Father Heart attack Other No family history of cancer Social History Social History Household Members: Spouse Housing: House Are you a primary regular senior care provider to a significant other at home: No Do you presently have visiting nurse or other home services: No Alcohol intake: never Patient Tobacco Use Status: Current everyday Tobacco user Tobacco use type: Cigarette Cigarette Packs Per Day: 1 Cigarettes Per Day: 20.0 Years Smoked: 46 Smoked in Last 30 Days: Yes e-Cigarette/Vaping Use: Never Used Second Hand Smoke Exposure: Yes Use of substances other than those prescribed or required for medical reasons: No Advance Directives: Yes Advance Directives on File: Yes Advance Directives Date on File: 12/24/19 Do you have a plan to hurt others: No Plan service: No Current occupational status: retired 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 Cognitive needs: No Hearing needs: No Vision needs: No Physical Exam Vital Signs: Vital Signs: Last Vital Signs Temp 100.8 F H 07/27/24 03:00 Pulse 89 07/27/24 04:39 Resp 16 07/27/24 04:39 BP 142/70 H 07/27/24 04:39 Pulse Ox 95 07/27/24 04:39 O2 Del Method Nasal Cannula 07/27/24 04:39 O2 Flow Rate 2 07/27/24 04:39 Oxygen Flow Rate 4 07/27/24 03:00 BMI result Body Mass Index 36.7 Appearance: Alert. Oriented X3. No acute distress. Eyes: Pupils equal, round and reactive to light. ENT: Pharynx normal. Neck: Normal inspection. Neck supple. CVS: Normal heart rate and rhythm. Pulses normal. Respiratory: No respiratory distress. Breath sounds coarse and diminished throughout Abdomen: Soft and nontender. Skin: Skin warm and dry. Normal skin color. Normal skin turgor. Extremities: 1+ RLE, 2+ LLE pitting edema. No calf ttp Neuro: Oriented X 3. No motor deficit. No sensory deficit. CN2-12 intact Medications Administered Discontinued Medications Generic Name Dose Route Start Last Admin Trade Name Freq PRN Reason Stop Dose Admin Albuterol Sulfate 2.5 mg 07/27/24 03:19 07/27/24 03:27 Albuterol Sulfate (0.083%) 2.5 Mg/3 Ml Vial.Neb INHALE 07/27/24 03:20 2.5 mg ONCE ONE Administration Ceftriaxone Sodium 1 gm 07/27/24 03:09 07/27/24 03:38 Ceftriaxone Sodium 1 Gm Vial IVPUSH 07/27/24 03:10 1 gm ONCE ONE Administration Dexamethasone Sodium Phosphate 6 mg 07/27/24 04:27 07/27/24 05:21 Dexamethasone Sod Phosphate 4 Mg/Ml Vial IVPUSH 07/27/24 04:28 6 mg ONCE ONE Administration Lactated Ringer's 1,000 mls @ 999 mls/hr 07/27/24 03:09 07/27/24 04:18 Lr IV 07/27/24 04:09 Infused .Q1H1M ONE Infusion Doxycycline Hyclate 100 mg/ 250 mls @ 166.67 mls/hr 07/27/24 03:31 07/27/24 05:35 Sodium Chloride IV 07/27/24 05:00 Infused ONCE ONE Infusion Ibuprofen 400 mg 07/27/24 05:50 07/27/24 05:56 Ibuprofen 400 Mg Tablet PO 07/27/24 05:51 400 mg ONCE ONE Administration Iohexol 85 ml 07/27/24 05:10 07/27/24 05:11 Iohexol 350 Mg/Ml 100 Ml Infus..Btl IV 07/27/24 05:11 85 ml ONCE ONE Administration Methylprednisolone Sodium Succinate 60 mg 07/27/24 03:09 07/27/24 03:50 Methylprednisolone Sod Succ 125 Mg/2 Ml Vial IVPUSH 07/27/24 03:10 Not Given ONCE ONE Medical Decision Making Medical Decision Making MDM Narrative: 64 yo female with chronic TENISHA, chronic smoker, COPD, Sjogrens disease, GERD, chronic pain who comes in with cough, sputum, difficulty breathing, chest pains at this time will obtain labs, CTA for PE given her LLE swelling, start on nebs, steroids, IV CAP coverage. She will also get troponin and EKG. Differential Diagnosis Differential Diagnoses: The differential diagnosis associated with the presentation includes COPD, viral syndrome, pneumonia, VTE Admission/Observation Consideration of admission/observation: Escalation of care including admission/observation considered will admit for further work up and management Consult Healthcare Provider Management of the patient was discussed with: Hospitalist Lab Data MDM Lab Attestation statement: I reviewed the patient's lab results. 07/27/24 03:22 07/27/24 03:22 Labs: Lab Results 07/27/24 07/27/24 07/27/24 Range/Units 03:22 03:41 03:49 WBC 13.9 H (4.8-10.8) X10*3/uL RBC 6.12 H (4.20-5.50) X10*6/uL Hgb 16.2 H (12.0-16.0) g/dl Hct 51.2 H (37.0-47.0) % MCV 83.7 (80.0-98.0) fL MCH 26.5 L (27.0-33.0) pg MCHC 31.6 (31.0-35.0) g/dl RDW 16.8 H (11.0-16.0) % Plt Count 200 (160-400) X10*3/uL MPV 9.9 (9.4-12.3) fL Immature Gran % (Auto) 0.5 H (0.0-0.4) % Neut % (Auto) 77.5 H (45-73) % Lymph % (Auto) 11.7 L (20-40) % [place] % (Auto) 7.3 (2-11) % Eos % (Auto) 2.4 (0-4) % Baso % (Auto) 0.6 (0-2) % Lymph # (Auto) 1.6 (1.2-4.9) X10*3/uL [place] # (Auto) 1.0 (0.1-1.2) X10*3/uL Eos # (Auto) 0.3 (0.0-0.4) X10*3/uL Baso # (Auto) 0.1 (0.0-0.2) X10*3/uL Abs Immat Gran (auto) 0.07 H (0.00-0.03) X10*3/uL Absolute Neuts (auto) 10.7 H (2.0-8.3) x10*3/uL Absolute Nucleated RBC 0.000 (0.0-0.012) X10*3/uL Nucleated RBC % (auto) 0.0 (0.0-0.2) /100WBC VBG pH 7.34 (7.32-7.43) VBG pCO2 60 mmHg VBG pO2 60 mmHg VBG HCO3 33 H (22-26) mmol/L VBG O2 Saturation 92.0 % VBG Base Excess 5.1 mmol/L Sodium 133 L (135-145) mmol/L Potassium 5.7 H D (3.3-5.1) mmol/L Chloride 95 L (96-108) mmol/L Carbon Dioxide 29 (22-29) mmol/L Anion Gap 15 (12-20) BUN 24 H (9-16) mg/dL Creatinine 0.64 (0.5-1.4) mg/dL Estim Creat Clear Calc 101.7 Estimated GFR > 60 Random Glucose 337 H (60-115) mg/dL Lactic Acid 1.8 (0.5-2.0) mmol/L Calcium 9.1 (8.4-10.2) mg/dL Magnesium 1.7 (1.6-2.6) mg/dL Total Bilirubin 0.4 (0.0-1.0) mg/dL Direct Bilirubin 0.2 (0.0-0.5) mg/dL AST 29 (5-31) U/L ALT 15 (0-31) U/L Alkaline Phosphatase 87 (39-117) U/L Troponin I High Sens 32.5 H D (<3.5-17.0) ng/L B-Natriuretic Peptide 251 H (<100) pg/mL Total Protein 6.9 (6.5-8.0) g/dL Albumin 3.9 (3.5-5.0) g/dL Influenza Type A (PCR) NEGATIVE (Negative) Influenza Type B (PCR) NEGATIVE (Negative) RSV RNA Qual (PCR) NEGATIVE (Negative) SARS-CoV-2 RNA (RT-PCR) NEGATIVE (Negative) 07/27/24 07/27/24 Range/Units 05:54 06:00 WBC (4.8-10.8) X10*3/uL RBC (4.20-5.50) X10*6/uL Hgb (12.0-16.0) g/dl Hct (37.0-47.0) % MCV (80.0-98.0) fL MCH (27.0-33.0) pg MCHC (31.0-35.0) g/dl RDW (11.0-16.0) % Plt Count (160-400) X10*3/uL MPV (9.4-12.3) fL Immature Gran % (Auto) (0.0-0.4) % Neut % (Auto) (45-73) % Lymph % (Auto) (20-40) % [place] % (Auto) (2-11) % Eos % (Auto) (0-4) % Baso % (Auto) (0-2) % Lymph # (Auto) (1.2-4.9) X10*3/uL [place] # (Auto) (0.1-1.2) X10*3/uL Eos # (Auto) (0.0-0.4) X10*3/uL Baso # (Auto) (0.0-0.2) X10*3/uL Abs Immat Gran (auto) (0.00-0.03) X10*3/uL Absolute Neuts (auto) (2.0-8.3) x10*3/uL Absolute Nucleated RBC (0.0-0.012) X10*3/uL Nucleated RBC % (auto) (0.0-0.2) /100WBC VBG pH 7.38 (7.32-7.43) VBG pCO2 52 mmHg VBG pO2 128 mmHg VBG HCO3 31 H (22-26) mmol/L VBG O2 Saturation 99.0 % VBG Base Excess 4.8 mmol/L Sodium (135-145) mmol/L Potassium (3.3-5.1) mmol/L Chloride (96-108) mmol/L Carbon Dioxide (22-29) mmol/L Anion Gap (12-20) BUN (9-16) mg/dL Creatinine (0.5-1.4) mg/dL Estim Creat Clear Calc Estimated GFR Random Glucose (60-115) mg/dL Lactic Acid (0.5-2.0) mmol/L Calcium (8.4-10.2) mg/dL Magnesium (1.6-2.6) mg/dL Total Bilirubin (0.0-1.0) mg/dL Direct Bilirubin (0.0-0.5) mg/dL AST (5-31) U/L ALT (0-31) U/L Alkaline Phosphatase (39-117) U/L Troponin I High Sens 31.6 H (<3.5-17.0) ng/L B-Natriuretic Peptide (<100) pg/mL Total Protein (6.5-8.0) g/dL Albumin (3.5-5.0) g/dL Influenza Type A (PCR) (Negative) Influenza Type B (PCR) (Negative) RSV RNA Qual (PCR) (Negative) SARS-CoV-2 RNA (RT-PCR) (Negative) Independent Interpretation I performed an independent interpretation of an: EKG, Plain X-Ray (no pneumonia) and CT Scan (no PE and no pneumonia) Interpretation: Rate: 100 Rhythm: sinus tach [place]: normal Normal P waves. Normal JAZLYN. Normal QRS complex. ST T wave : no MALATHI, flat t waves V1-V2 qTC: 384 prior studies: no acute ischemia The study has been interpreted contemporaneously by me. . Radiology Impression Discussion of test interpretation with radiology: I have reviewed the radiologist's reading. Independent Historian Clinical information obtained from an independent historian. History obtained from or confirmed by: Spouse and EMS External Record Review External record reviewed: Inpatient record and Outpatient record Discharge Plan Discharge Clinical Impression: Acute exacerbation of chronic obstructive pulmonary disease Elevated WBC count Qualifiers: Leukocytosis type: unspecified Qualified Code(s): D72.829 - Elevated white blood cell count, unspecified Patient Disposition: Admitted As Inpatient Print Language: [place]
[2024-07-27 03:50] LABS: Venous Blood Gas Refer to POC result
[2024-07-27 03:54] LABS: VBG Base Excess 5.1 mmol/L; VBG HCO3 33 mmol/L (22-26); VBG pCO2 60 mmHg; VBG pH 7.34 (7.32-7.43); VBG pO2 60 mmHg
[2024-07-27 04:04] LABS: Lactic Acid 1.8 mmol/L (0.5-2.0)
[2024-07-27] MEDS: Doxycycline Hyclate 100 MG in 0.9 % Sodium Chloride 250 ML 166.67 MG IV ×2 (04:05→17:10)
--- NOTE | 2024-07-27 04:05 | PC.NURSE ---
pt requested 10mg Oxycodone as takes this for chronic back pain last dose >6hrs ago, per MD need to hold off at this time d/t vbg results. pt educated on this.
[2024-07-27 04:08] LABS: Alanine Aminotransferase 15 U/L (0-31); Albumin Level 3.9 g/dL (3.5-5.0); Alkaline Phosphatase 87 U/L (39-117); Anion Gap 15 (12-20); Aspartate Amino Transferase 29 U/L (5-31); Bilirubin Direct 0.2 mg/dL (0.0-0.5); Bilirubin Total 0.4 mg/dL (0.0-1.0); Blood Urea Nitrogen 24 mg/dL (9-16); Calcium 9.1 mg/dL (8.4-10.2); Carbon Dioxide 29 mmol/L (22-29); Chloride 95 mmol/L (96-108); Creatinine Clr Calc Pharmacy 101.7; Estimated Glomerular Filt Rate > 60; Glucose Random 337 mg/dL (60-115); Magnesium 1.7 mg/dL (1.6-2.6); Potassium 5.7 mmol/L (3.3-5.1); Sodium 133 mmol/L (135-145); Total Protein 6.9 g/dL (6.5-8.0)
[2024-07-27 04:09] LABS: B Type Natriuretic Peptide 251 pg/mL (<100)
[2024-07-27 04:25] LABS: Troponin-I High Sensitivity 32.5 ng/L (<3.5-17.0)
[2024-07-27 04:25] LABS: Influenza A PCR NEGATIVE (Negative); Influenza B PCR NEGATIVE (Negative); Resp Syncy Virus RNA Qual PCR NEGATIVE (Negative); SARS COV2 PCR INHOUSE NEGATIVE (Negative)
[2024-07-27] MEDS: iohexoL 350 MG/ML 100 ML INFUS..BTL 85 ML IV (05:11)
[2024-07-27] MEDS: dexAMETHasone sod phosphate 4 MG/ML VIAL 6 MG IVPUSH (05:21)
[2024-07-27 05:55] LABS: Venous Blood Gas Refer to POC result
[2024-07-27] MEDS: Ibuprofen 400 MG TABLET PO (05:56)
[2024-07-27 05:59] LABS: VBG Base Excess 4.8 mmol/L; VBG HCO3 31 mmol/L (22-26); VBG pCO2 52 mmHg; VBG pH 7.38 (7.32-7.43); VBG pO2 128 mmHg
--- NOTE | 2024-07-27 06:12 | PC.NURSE ---
Late entry pt arrived to [facility] via ems from home c/o sudden sob, hx copd, daily smoker. 85% on RA for ems, 95% on 4L NC (baseline). no interventions via ems. on arrival lung sounds cta, pt does have a productive intermittent cough. no wheezing noted. pt states o2 is prn and uses cpap for bedtime which was not using tonight. oral temp was 100F, rectal temp obtained to be 100.8F. at 0307 MD Hammond notified of possible sepsis alert which was then initiated at 0313. iv established to R. forearm - labs obtained. ekg done. ivf were being infused and at 0414 notified this RN to stop infusion d/t bnp. approx 250mL wasted. BP as documented. 0358 asked for o2 to be titrated down to 2L NC which pt tolerated at 93-95% however upon return from CT approx 0500 sats down to 88%, increased to 3L NC and now 93%. pt is currently resting in stretcher with HOB elevated awaiting ct scan/lab results ?admission.
[2024-07-27 06:29] LABS: Troponin-I High Sensitivity 31.6 ng/L (<3.5-17.0)
[2024-07-27] MEDS: oxyCODONE HCl Immed Release 5 MG TABLET PO (06:46)
[2024-07-27 08:52] LABS: Glucose, Whole Blood 337 mg/dL (60-115)
--- NOTE | 2024-07-27 09:31 | P.HPHOSP_ITS ---
History of Present Illness Date of Service: 07/27/24 Chief Complaint: fatigue The patient is a 64-year-old female with a past medical history significant for severe emphysema/COPD, active tobacco use, chronic pain on narcotics, Sjogren's disease, RA, GERD and diabetes mellitus who presents to the emergency room with complaints of progressive shortness of breath and fatigue over the last several days. The patient reports a chronic cough productive of sputum. She reports generalized malaise. She reports that she has required her p.r.n. oxygen continuously over the last several days. She denies any fevers or chills. Denies any sick contacts. She denies any or GI symptoms. She reprots chest pain, which is sharp and reproducible. In the emergency room the patient was found to have COPD exacerbation was treated with IV steroids and IV antibiotics. She underwent a CTA which was negative for PE it did not show any infiltrates suggestive of pneumonia. She was also found to have cardiomegaly without evidence of heart failure. BNP is slightly high at 251. Pt is seen and examined in the ED around 9am. She appears fatigued but is able to give history and answer questions appropriately. Review of Systems 2 Review of Systems: Negative except HPI/interval history. 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 Osteoporosis Sjogrens syndrome Rheumatoid arthritis Osteoarthritis Chronic, continuous use of opioids GERD (gastroesophageal reflux disease) Hx of difficult intubation Smoker COPD (chronic obstructive pulmonary disease) Asthma Polycythemia Boils Eczema Bursitis Disc degeneration Sleep apnea Diabetes Fibromyalgia Family History Mother Polycythemia TIA (transient ischemic attack) Father Heart attack Other No family history of cancer Surgical History History of esophagogastroduodenoscopy (EGD) Hx of tonsillectomy History of surgical removal of pilonidal cyst Hx of plastic surgery Hx of hysterectomy Hx of cholecystectomy Hx of appendectomy History of colonoscopy History of bladder suspension procedure History of removal of cyst Social History Household Members: Spouse Housing: House Are you a primary nurse care manager to a significant other at home: No Do you presently have visiting nurse or other home services: No Alcohol intake: never Patient Tobacco Use Status: Current everyday Tobacco user Tobacco use type: Cigarette Cigarette Packs Per Day: 1 Cigarettes Per Day: 20.0 Years Smoked: 46 Smoked in Last 30 Days: Yes e-Cigarette/Vaping Use: Never Used Second Hand Smoke Exposure: Yes Use of substances other than those prescribed or required for medical reasons: No Advance Directives: Yes Advance Directives on File: Yes Advance Directives Date on File: 12/24/19 Do you have a plan to hurt others: No Plan service: No Current occupational status: retired 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 Cognitive needs: No Hearing needs: No Vision needs: No Meds Allergies Allergy/AdvReac Type Severity Reaction Status Date / Time atorvastatin [From LIPITOR] Allergy Severe Difficulty Verified 07/27/24 03:12 Breathing azithromycin [AZITHROMYCIN] Allergy Severe Difficulty Verified 07/27/24 03:12 Breathing mite-Dermatophagoides Allergy Severe Difficulty Verified 07/27/24 03:12 farinae, vicente Breathing [dust mite - [place]] sumatriptan [From IMITREX] Allergy Severe Difficulty Verified 07/27/24 03:12 Breathing house dust Allergy Mild Unknown Verified 07/27/24 03:12 acetaminophen [From TYLENOL] Allergy Unknown Itching Verified 07/27/24 03:12 adhesive tape [ADHESIVE TAPE] Allergy Unknown Rash Verified 07/27/24 03:12 gentamicin [GENTAMICIN] Allergy Unknown Rash Verified 07/27/24 03:12 adalimumab [From Humira] Allergy Rash Verified 07/27/24 03:12 erythromycin base Allergy Unknown Verified 07/27/24 03:12 haloperidol [From HALDOL] AdvReac Unknown GI Issues Verified 07/27/24 03:12 ketorolac [From TORADOL] AdvReac Unknown Muscle Verified 07/27/24 03:12 cramps prasterone (DHEA) [From DHEA] AdvReac Unknown Cardiac Verified 07/27/24 03:12 issues varenicline [From CHANTIX] AdvReac Unknown Seizure Verified 07/27/24 03:12 ipratropium [From Atrovent] AdvReac Migraine Verified 07/27/24 03:12 Active Medications: Current Medications Calcium Carbonate (Calcium Carbonate 750 Mg Tab.Chew) 750 mg PO Q4H PRN PRN Reason: Heartburn Enoxaparin Sodium (Enoxaparin Sodium 40 Mg/0.4 Ml Syringe) 40 mg SUBCUT Q24H [facility] Insulin Human Lispro (Insulin Lispro 100 Unit/Ml 3 Ml Vial) 0 unit SUBCUT QIDACHS [facility]; Protocol Magnesium Hydroxide (Milk Of Magnesia 30 Ml Oral.Susp) 30 ml PO DAILY PRN PRN Reason: Constipation Melatonin (Melatonin 3 Mg Tablet) 6 mg PO BEDTIME PRN PRN Reason: Insomnia Sodium Chloride (0.9 % Sodium Chloride Flush 3 Ml Syringe) 3 ml IVFLUSH QSHIFT [facility] Home Medications ?Medication ?Instructions ?Recorded ?Confirmed ?Last Taken ?Type aspirin 325 mg tablet 325 mg PO BID@0030,0 09/27/20 07/27/24 07/27/24 00:30 History loratadine 10 mg tablet 10 mg PO 0 PRN ALLERGIES 09/27/20 07/27/24 02/27/24 History hyoscyamine sulfate 0.125 mg tablet 0.125 mg PO DAILY PRN GI 07/03/23 07/27/24 02/27/24 History pantoprazole 40 mg tablet,delayed 40 mg PO DAILY@122902/27/24 07/27/24 07/26/24 12:30 History release amlodipine 10 mg tablet 10 mg PO DAILY@2907/27/24 07/27/24 07/27/24 00:30 History cholecalciferol (vitamin D3) 50 50 mcg PO DAILY@2907/27/24 07/27/24 07/27/24 00:30 History mcg (2,000 unit) capsule (Vitamin D3) diclofenac sodium 75 mg 75 mg PO DAILY PRN Pain 07/27/24 07/27/24 Unknown History tablet,delayed release ferrous sulfate 325 mg (65 mg 325 mg PO DAILY@122907/27/24 07/27/24 07/26/24 12:30 History iron) tablet hydroxychloroquine 200 mg tablet 200 mg PO DAILY@2907/27/24 07/27/24 07/27/24 00:30 History insulin glargine 100 unit/mL 40 unit subcut BEDTIME@2907/27/24 07/27/24 07/27/24 00:30 History subcutaneous solution (Lantus U-100 Insulin) insulin lispro 100 unit/mL 30 unit subcut TIDAC 07/27/24 07/27/24 07/27/24 00:30 History subcutaneous pen (Humalog KwikPen (U-100) Insulin) linaclotide 145 mcg capsule 145 mcg PO DAILY@1230 07/27/24 07/27/24 07/27/24 00:30 History losartan 25 mg tablet 25 mg PO DAILY@0030 07/27/24 07/27/24 07/27/24 00:30 History magnesium oxide 400 mg (241.3 mg 400 mg PO BID@0030,122907/27/24 07/27/24 07/27/24 00:30 History magnesium) tablet metformin 1,000 mg tablet 1,000 mg PO BID@0030,1230 07/27/24 07/27/24 07/27/24 00:30 History montelukast 10 mg tablet 10 mg PO BEDTIME@0030 07/27/24 07/27/24 07/27/24 00:30 History multivitamin 1 tab PO DAILY@0 07/27/24 07/27/24 07/26/24 12:30 History mupirocin 2 % topical ointment 1 appl topical DAILY PRN AFFECTED 07/27/24 07/27/24 Unknown History AREA pramipexole 0.25 mg tablet 0.25 mg PO DAILY@1230 07/27/24 07/27/24 07/26/24 12:30 History pramipexole 0.25 mg tablet 0.5 mg PO BEDTIME@0030 07/27/24 07/27/24 07/27/24 00:30 History pregabalin 75 mg capsule (Lyrica) 75 mg PO BID@0030,1230 07/27/24 07/27/24 07/27/24 00:30 History Physical Exam 2 Vital Signs and Narrative: Vital Signs: Last Vital Signs Temp 97.4 F 07/27/24 08:39 Pulse 79 07/27/24 08:39 Resp 18 07/27/24 08:39 BP 123/69 07/27/24 08:39 Pulse Ox 93 07/27/24 08:39 O2 Del Method Nasal Cannula 07/27/24 08:39 O2 Flow Rate 3 07/27/24 08:39 Oxygen Flow Rate 4 07/27/24 03:00 BMI result Body Mass Index 36.7 Const: Other: Constitutional - initially drowsy but afterwards able to answer questions appropriately Eyes - PERRLA, EOMI Cardiovascular - S1S2, RRR, LLE swelling > RLE Respiratory - poor air entry globally Gastrointestinal - NT / ND; +BS; No rebound or guarding - No CVA tenderness Extremities - no calf tenderness bilaterally Musculoskeletal - Normal inspection, normal ROM Skin - Warm/Dry Neurological - Alert & oriented x3, No focal deficit Psychological - Appropriate affect Results Labs 07/27/24 03:22 07/27/24 03:22 Labs: Laboratory Results - last 24 hr 07/27/24 07/27/24 07/27/24 03:22 03:41 03:49 MCV 83.7 MCH 26.5 L MCHC 31.6 RDW 16.8 H Plt Count 200 MPV 9.9 Immature Gran % (Auto) 0.5 H Neut % (Auto) 77.5 H Lymph % (Auto) 11.7 L [place] % (Auto) 7.3 Eos % (Auto) 2.4 Baso % (Auto) 0.6 Lymph # (Auto) 1.6 [place] # (Auto) 1.0 Eos # (Auto) 0.3 Baso # (Auto) 0.1 Abs Immat Gran (auto) 0.07 H Absolute Neuts (auto) 10.7 H Absolute Nucleated RBC 0.000 Nucleated RBC % (auto) 0.0 VBG pH 7.34 VBG pCO2 60 VBG pO2 60 VBG HCO3 33 H VBG O2 Saturation 92.0 VBG Base Excess 5.1 Anion Gap 15 Estim Creat Clear Calc 101.7 Estimated GFR > 60 POC Glucose Random Glucose 337 H Lactic Acid 1.8 Calcium 9.1 Magnesium 1.7 Total Bilirubin 0.4 Direct Bilirubin 0.2 AST 29 ALT 15 Alkaline Phosphatase 87 Troponin I High Sens 32.5 H D B-Natriuretic Peptide 251 H Total Protein 6.9 Albumin 3.9 Influenza Type A (PCR) NEGATIVE Influenza Type B (PCR) NEGATIVE RSV RNA Qual (PCR) NEGATIVE SARS-CoV-2 RNA (RT-PCR) NEGATIVE 07/27/24 07/27/24 07/27/24 05:54 06:00 08:49 MCV MCH MCHC RDW Plt Count MPV Immature Gran % (Auto) Neut % (Auto) Lymph % (Auto) [place] % (Auto) Eos % (Auto) Baso % (Auto) Lymph # (Auto) [place] # (Auto) Eos # (Auto) Baso # (Auto) Abs Immat Gran (auto) Absolute Neuts (auto) Absolute Nucleated RBC Nucleated RBC % (auto) VBG pH 7.38 VBG pCO2 52 VBG pO2 128 VBG HCO3 31 H VBG O2 Saturation 99.0 VBG Base Excess 4.8 Anion Gap Estim Creat Clear Calc Estimated GFR POC Glucose 337 H Random Glucose Lactic Acid Calcium Magnesium Total Bilirubin Direct Bilirubin AST ALT Alkaline Phosphatase Troponin I High Sens 31.6 H B-Natriuretic Peptide Total Protein Albumin Influenza Type A (PCR) Influenza Type B (PCR) RSV RNA Qual (PCR) SARS-CoV-2 RNA (RT-PCR) Assessment and Plan (1) Acute exacerbation of chronic obstructive pulmonary disease: Status: Acute Plan 64 yo F with chronic hypoxic and hypercarbic resp failure, tenisha, RA, DM, Sjoren's, on going tobacco use, chronic pain who presents with a several day history of fatigue and increasing dyspnea + pleuritic chest pain. Work up consistent with acute on chronic hypoxic and chronic hypercarbic resp failure due to COPD exacerbation, likely secondary to viral illness. 1. Acute on chronic hypoxic resp failure; chronic hypercarbic resp. failure 1a. Acute copd exacerbation continue supplemental O2 with goal of 88-92 IV steroids; empiric antibiotics for bronchitis coverage check resp. pathogen panel 2. DM with hyperglycemia hold orals sliding scale + long acting + scheduled 5 units TID (on 30 units TID at home pre-meal insulin) DM diet 3. LLE swelling pt reports intermittently increased will r/o DVT; CTA neg for PE 4. History of Sjoren's / RA continue baseline meds 5. Chronic pain continue meds as clinically appropriate 6. HTN med rec pending, continue baseline 7. TENISHA CPAP Full Code DVT pptx - Lovenox Pt with acute on chronic resp failure with multiple undelrying risk factors - COPD, uncontrolled DM, RA/Sjoren's, TENISHA/Obesity - therefore, expected to require 2 midnights in the hospital for treatment and monitoring of response. Therefore, will be admitted as inpt. Quality Stroke Does the patient have a stroke diagnosis?: No VTE Prior VTE?: No VTE Risk Level:: Medical - moderate - high VTE Device Contraindication: N/A - Device Ordered VTE Drug Contraindication: N/A - Med Ordered
--- NOTE | 2024-07-27 09:31 | PC.NURSE ---
Diabetic diet order entered by Dr. Burciaga. This RN called kitchen at 9:31am to request breakfast tray. Awaiting tray. Plan for u/s to rule out DVT in left leg, edema noted. Respiratory panel to also be collected. Care ongoing by this RN.
[2024-07-27 11:01] LABS: Adenovirus PCR Not Detected (Not Detect.); Bordetella parapertussis PCR Not Detected (Not Detect.); Bordetella pertussis PCR Not Detected (Not Detect.); Chlamydia pneumoniae PCR Not Detected (Not Detect.); Coronavirus 229E PCR Not Detected (Not Detect.); Coronavirus HKU1 PCR Not Detected (Not Detect.); Coronavirus NL63 PCR Not Detected (Not Detect.); Coronavirus OC43 PCR Not Detected (Not Detect.); Human metapneumovirus PCR Not Detected (Not Detect.); Influenza A PCR Not Detected (Not Detect.); Influenza B PCR Not Detected (Not Detect.); Mycoplasma pneumoniae PCR Not Detected (Not Detect.); Parainfluenza 1 PCR Not Detected (Not Detect.); Parainfluenza 2 PCR Not Detected (Not Detect.); Parainfluenza 3 PCR Not Detected (Not Detect.); Parainfluenza 4 PCR Not Detected (Not Detect.); RSV PCR Not Detected (Not Detect.); Rhino/Enterovirus PCR Not Detected (Not Detect.)
[2024-07-27 11:24] LABS: Influenza A H1 PCR Not Detected (Not Detect.); Influenza A H1-2009 PCR Not Detected (Not Detect.); Influenza A H3 PCR Not Detected (Not Detect.); SARS-CoV-2 PCR Not Detected (Not Detect.)
[2024-07-27] MEDS: Enoxaparin Sodium 40 MG/0.4 ML SYRINGE SUBCUT (12:45)
[2024-07-27 12:55] LABS: Glucose, Whole Blood 326 mg/dL (60-115)
--- NOTE | 2024-07-27 13:03 | MHC.CM.PN ---
Patient lives in a house with her /HCP/Jair and she uses a w/c mostly, for mobility. Patient has home O2 from [facility] and home/resume said services is the goal.CM has initiated and will follow for dc planning. PCP is Dr. Dottie Douglass and will transport to home at time of dc.
--- NOTE | 2024-07-27 13:06 | PHA.MEDREC ---
Pharmacy Consult ? Medication Reconciliation Pharmacy has completed the medication reconciliation. Utilized the medication list the brought in. Patient takes all her medication at 12:30pm and 12:30am.
[2024-07-27] MEDS: Insulin Lispro 100 UNIT/ML 3 ML VIAL SUBCUT ×4 (13:21→22:12)
[2024-07-27] MEDS: Morphine Sulfate ER 30 MG TABLET.ER PO (14:21)
[2024-07-27] MEDS: Pramipexole Di-HCL 0.25 MG TABLET PO (14:22)
[2024-07-27] MEDS: Aspirin 325 MG TABLET PO (14:22)
[2024-07-27] MEDS: oxyCODONE HCl Immed Release 5 MG TABLET 10 MG PO ×2 (16:00→22:10)
[2024-07-27 17:00] LABS: Glucose, Whole Blood 258 mg/dL (60-115)
[2024-07-27] MEDS: methylPREDNISolone Sod Succ 40 MG/ML VIAL IVPUSH (17:05)
[2024-07-27] MEDS: 0.9 % Sodium Chloride Flush 3 ML SYRINGE IVFLUSH (17:05)
[2024-07-27] MEDS: Nicotine 21 MG PATCH.TD24 TRANSDERMA (17:20)
[2024-07-27] MEDS: Cyclobenzaprine HCl 5 MG TABLET PO (17:25)
[2024-07-27] MEDS: Diclofenac Sodium Delayed Rel 75 MG TABLET.DR PO (18:33)
[2024-07-27 21:02] LABS: Glucose, Whole Blood 248 mg/dL (60-115)
[2024-07-28] VITALS (10 sets, daily range): BP systolic 139–157; BP diastolic 69–81; PULSE 62–72; RESP 16–20; TEMP 36.6–36.9; O2SAT 95–97
[2024-07-28] MEDS: methylPREDNISolone Sod Succ 40 MG/ML VIAL IVPUSH ×3 (00:19→15:28)
[2024-07-28] MEDS: Pregabalin 75 MG CAPSULE PO ×2 (00:19→11:53)
[2024-07-28] MEDS: Hydroxychloroquine Sulfate 200 MG TABLET PO (00:20)
[2024-07-28] MEDS: Pramipexole Di-HCL 0.25 MG TABLET 0.5 MG PO (00:20)
[2024-07-28] MEDS: Magnesium Oxide 400 MG TABLET PO ×2 (00:20→11:58)
[2024-07-28] MEDS: Montelukast Sodium 10 MG TABLET PO (00:20)
[2024-07-28] MEDS: Morphine Sulfate ER 30 MG TABLET.ER PO ×2 (00:20→11:53)
[2024-07-28] MEDS: Insulin Glargine,Hum.rec.anlog 100 UNIT/ML 10 ML VIAL 40 UNIT SUBCUT (00:22)
[2024-07-28] MEDS: Nystatin Powder 15 GM BOTTLE 1 APPL TOPICAL ×4 (00:26→21:37)
[2024-07-28] MEDS: 0.9 % Sodium Chloride Flush 3 ML SYRINGE IVFLUSH ×4 (00:28→21:38)
[2024-07-28] MEDS: Aspirin 325 MG TABLET PO ×2 (00:36→11:53)
[2024-07-28] MEDS: oxyCODONE HCl Immed Release 5 MG TABLET 10 MG PO ×4 (03:55→21:33)
[2024-07-28] MEDS: Doxycycline Hyclate 100 MG in 0.9 % Sodium Chloride 250 ML 166.67 MG IV ×2 (04:01→15:30)
[2024-07-28] MEDS: Cyclobenzaprine HCl 5 MG TABLET PO ×2 (05:00→15:29)
[2024-07-28 07:10] LABS: Anion Gap 12 (12-20); Blood Urea Nitrogen 18 mg/dL (9-16); Calcium 8.9 mg/dL (8.4-10.2); Carbon Dioxide 31 mmol/L (22-29); Chloride 96 mmol/L (96-108); Creatinine Clr Calc Pharmacy 110.3; Estimated Glomerular Filt Rate > 60; Glucose Random 319 mg/dL (60-115); Potassium 5.2 mmol/L (3.3-5.1); Sodium 134 mmol/L (135-145)
[2024-07-28 07:13] LABS: Hematocrit 49.3 % (37.0-47.0); Hemoglobin 15.4 g/dl (12.0-16.0); Mean Corpuscular HGB Conc 31.2 g/dl (31.0-35.0); Mean Corpuscular Hemoglobin 26.3 pg (27.0-33.0); Mean Corpuscular Volume 84.3 fL (80.0-98.0); Mean Platelet Volume 10.7 fL (9.4-12.3); Platelet Count 198 X10*3/uL (160-400); Red Blood Count 5.85 X10*6/uL (4.20-5.50); Red Cell Distribution Width 17.2 % (11.0-16.0); White Blood Count 9.5 X10*3/uL (4.8-10.8)
[2024-07-28 07:33] LABS: Glucose, Whole Blood 328 mg/dL (60-115)
[2024-07-28] MEDS: Albuterol Sulfate (0.083%) 2.5 MG/3 ML VIAL.NEB INHALE ×4 (07:42→19:45)
[2024-07-28] MEDS: Insulin Lispro 100 UNIT/ML 3 ML VIAL SUBCUT ×7 (08:31→21:37)
[2024-07-28] MEDS: Nicotine 21 MG PATCH.TD24 TRANSDERMA (08:32)
[2024-07-28] MEDS: Enoxaparin Sodium 40 MG/0.4 ML SYRINGE SUBCUT (08:32)
[2024-07-28] MEDS: Sodium Zirconium Cyclosilicate 10 GM POWD.PACK PO (09:15)
--- NOTE | 2024-07-28 10:20 | MHC.CM.PN ---
Per MD rounds patient not medically cleared for dc. CM will continue to follow.
[2024-07-28] MEDS: guaiFENesin LA 600 MG TAB.ER.12H PO ×2 (11:03→21:34)
[2024-07-28 11:33] LABS: Glucose, Whole Blood 282 mg/dL (60-115)
[2024-07-28] MEDS: Multivitamin TABLET 1 TAB PO (11:48)
[2024-07-28] MEDS: Ferrous Sulfate 324 MG TABLET.DR PO (11:48)
[2024-07-28] MEDS: Omeprazole 20 MG CAPSULE.DR PO (11:48)
[2024-07-28] MEDS: Loratadine 10 MG TABLET PO (11:48)
[2024-07-28] MEDS: Nystatin Oral Susp 500,000 UNIT/5 ML ORAL.SUSP 400000 UNIT BUCCAL ×3 (11:49→21:35)
[2024-07-28] MEDS: Pramipexole Di-HCL 0.25 MG TABLET PO (11:50)
--- NOTE | 2024-07-28 14:47 | HO.PM.IMPN ---
Subjective Subjective Date of Service: 07/28/24 Interval History: seen and evaluated feels little better but still coughing and having wheezes no other overnight events Review of Systems Review of Systems: Yes all other systems are reviewed and are negative Physical Exam Vital Signs: Vital Signs: Last Vital Signs Temp 98.3 F 07/28/24 11:30 Pulse 71 07/28/24 11:30 Resp 18 07/28/24 11:30 BP 141/72 H 07/28/24 11:30 Pulse Ox 97 07/28/24 11:30 O2 Del Method Nasal Cannula 07/28/24 11:30 O2 Flow Rate 4.0 07/28/24 11:30 Oxygen Flow Rate 4 07/27/24 03:00 BMI result Body Mass Index 36.7 Const: Other: Constitutional : Awake, interactive, not in distress Neck : Normal inspection, Supple Cardiovascular : RRR, no JVP, no lower extremity edema Respiratory : decreased bilateral air entry, no crackles, bilateral expiratory wheezes Gastrointestinal: soft, lax, Normal bowel sounds, Non tender Skin : Warm, Dry Neurological : Alert & oriented x3, No focal deficit Objective Data Active Medications Albuterol Sulfate (Albuterol Sulfate (0.083%) 2.5 Mg/3 Ml Vial.Neb) 2.5 mg INHALE RQ4H WHILE AWAKE [facility] Last Admin: 07/28/24 11:12 Dose: 2.5 mg Documented By: LUDMILA Aspirin (Aspirin 325 Mg Tablet) 325 mg PO BID@0030,1230 [facility] Last Admin: 07/28/24 11:53 Dose: 325 mg Documented By: DAREN Calcium Carbonate (Calcium Carbonate 750 Mg Tab.Chew) 750 mg PO Q4H PRN PRN Reason: Heartburn Cyclobenzaprine HCl (Cyclobenzaprine Hcl 5 Mg Tablet) 5 mg PO BID PRN PRN Reason: Muscle Spasm Last Admin: 07/28/24 05:00 Dose: 5 mg Documented By: JEFFY Diclofenac Sodium (Diclofenac Sodium Delayed Rel 75 Mg Tablet.) 75 mg PO DAILY PRN PRN Reason: Pain, Mild (Pain Scale 1-3) Last Admin: 07/27/24 18:33 Dose: 75 mg Documented By: TRACY Enoxaparin Sodium (Enoxaparin Sodium 40 Mg/0.4 Ml Syringe) 40 mg SUBCUT Q24H [facility] Last Admin: 07/28/24 08:32 Dose: 40 mg Documented By: DAREN Ferrous Sulfate (Ferrous Sulfate 324 Mg Tablet.) 324 mg PO DAILY@0 [facility] Last Admin: 07/28/24 11:48 Dose: 324 mg Documented By: DAREN Guaifenesin (Guaifenesin La 600 Mg Tab.Er.12h) 600 mg PO BID [facility] Last Admin: 07/28/24 11:03 Dose: 600 mg Documented By: DAREN Hydroxychloroquine Sulfate (Hydroxychloroquine Sulfate 200 Mg Tablet) 200 mg PO DAILY@29 [facility] Last Admin: 07/28/24 00:20 Dose: 200 mg Documented By: JEFFY Doxycycline Hyclate 100 mg/ (Sodium Chloride) 250 mls @ 166.67 mls/hr IV Q12H [facility] Last Infusion: 07/28/24 05:45 Dose: Infused Documented By: JEFFY Insulin Glargine (Insulin Glargine,Hum.Rec.Anlog 100 Unit/Ml 10 Ml Vial) 40 unit SUBCUT BEDTIME@29 [facility] Last Admin: 07/28/24 00:22 Dose: 40 unit Documented By: JEFFY Insulin Human Lispro (Insulin Lispro 100 Unit/Ml 3 Ml Vial) 0 unit SUBCUT QIDACHS [facility]; Protocol Last Admin: 07/28/24 11:47 Dose: 6 unit Documented By: DAREN Insulin Human Lispro (Insulin Lispro 100 Unit/Ml 3 Ml Vial) 5 unit SUBCUT TIDAC [facility] Last Admin: 07/28/24 11:48 Dose: 5 unit Documented By: DAREN Loratadine (Loratadine 10 Mg Tablet) 10 mg PO DAILY@1229 [facility] Last Admin: 07/28/24 11:48 Dose: 10 mg Documented By: DAREN Magnesium Hydroxide (Milk Of Magnesia 30 Ml Oral.Susp) 30 ml PO DAILY PRN PRN Reason: Constipation Magnesium Oxide (Magnesium Oxide 400 Mg Tablet) 400 mg PO BID@0030,1229 [facility] Last Admin: 07/28/24 11:58 Dose: 400 mg Documented By: DAREN Melatonin (Melatonin 3 Mg Tablet) 6 mg PO BEDTIME PRN PRN Reason: Insomnia Methylprednisolone Sodium Succinate (Methylprednisolone Sod Succ 40 Mg/Ml Vial) 40 mg IVPUSH Q8H [facility] Last Admin: 07/28/24 08:34 Dose: 40 mg Documented By: DAREN Montelukast Sodium (Montelukast Sodium 10 Mg Tablet) 10 mg PO BEDTIME@0 [facility] Last Admin: 07/28/24 00:20 Dose: 10 mg Documented By: JEFFY Morphine Sulfate (Morphine Sulfate Er 30 Mg Tablet.Er) 30 mg PO BID@29,0 [facility] Last Admin: 07/28/24 11:53 Dose: 30 mg Documented By: DAREN Multivitamins/Vitamin C (Multivitamin Tablet) 1 tab PO DAILY@0 [facility] Last Admin: 07/28/24 11:48 Dose: 1 tab Documented By: DAREN Nicotine (Nicotine 21 Mg Patch.Td24) 21 mg TRANSDERMA DAILY [facility] Last Admin: 07/28/24 08:32 Dose: 21 mg Documented By: DAREN Nystatin (Nystatin Powder 15 Gm Bottle) 1 appl TOPICAL TID [facility]; Protocol Last Admin: 07/28/24 08:38 Dose: 1 appl Documented By: DAREN Nystatin (Nystatin Oral Susp 500,000 Unit/5 Ml Oral.Susp) 400,000 unit BUCCAL QID [facility]; Protocol Last Admin: 07/28/24 11:49 Dose: 400,000 unit Documented By: DAREN Omeprazole (Omeprazole 20 Mg Capsule.Dr) 20 mg PO DAILY@0 [facility] Last Admin: 07/28/24 11:48 Dose: 20 mg Documented By: DAREN Oxycodone HCl (Oxycodone Hcl Immed Release 5 Mg Tablet) 10 mg PO QID PRN PRN Reason: Pain, Severe (Pain Scale 7-10) Last Admin: 07/28/24 09:15 Dose: 10 mg Documented By: DAREN Pramipexole Dihydrochloride (Pramipexole Di-Hcl 0.25 Mg Tablet) 0.5 mg PO BEDTIME@0 [facility] Last Admin: 07/28/24 00:20 Dose: 0.5 mg Documented By: JEFFY Pramipexole Dihydrochloride (Pramipexole Di-Hcl 0.25 Mg Tablet) 0.25 mg PO DAILY@1230 [facility] Last Admin: 07/28/24 11:50 Dose: 0.25 mg Documented By: DAREN Pregabalin (Pregabalin 75 Mg Capsule) 75 mg PO BID@0030,1230 [facility] Last Admin: 07/28/24 11:53 Dose: 75 mg Documented By: DAREN Sodium Chloride (0.9 % Sodium Chloride Flush 3 Ml Syringe) 3 ml IVFLUSH QSHIFT [facility] Last Admin: 07/28/24 08:34 Dose: 3 ml Documented By: DAREN Labs 07/28/24 06:12 07/28/24 06:12 Labs: Laboratory Results - last 24 hr 07/27/24 07/27/24 07/28/24 16:56 19:49 06:12 MCV 84.3 MCH 26.3 L MCHC 31.2 RDW 17.2 H Plt Count 198 MPV 10.7 Absolute Nucleated RBC 0.000 Nucleated RBC % (auto) 0.0 Anion Gap 12 Estim Creat Clear Calc 110.3 Estimated GFR > 60 POC Glucose 258 H 248 H Random Glucose 319 H Calcium 8.9 07/28/24 07/28/24 07:17 11:23 MCV MCH MCHC RDW Plt Count MPV Absolute Nucleated RBC Nucleated RBC % (auto) Anion Gap Estim Creat Clear Calc Estimated GFR POC Glucose 328 H 282 H Random Glucose Calcium Microbiology Microbiology Results: Microbiology 07/27/24 03:34 Blood Culture - Preliminary Blood - Venous No growth after 24 hours. 07/27/24 03:22 Blood Culture - Preliminary Blood - Venous No growth after 24 hours. Assessment and Plan (1) Acute exacerbation of chronic obstructive pulmonary disease: Status: Acute (2) Acute respiratory failure with hypoxia: Status: Acute Plan 64 yo F with chronic hypoxic and hypercarbic resp failure, tenisha, RA, DM, Sjoren's, on going tobacco use, chronic pain who presents with a several day history of fatigue and increasing dyspnea + pleuritic chest pain. Work up consistent with acute on chronic hypoxic and chronic hypercarbic resp failure due to COPD exacerbation, likely secondary to viral illness. # Acute on chronic hypoxic resp failure 2/2 Acute copd exacerbation continue supplemental O2 with goal of 88-92 IV steroids. NEbulizers charlette and PRN mucinex empiric antibiotics for bronchitis coverage neg resp. pathogen panel DM with hyperglycemia hold orals sliding scale + long acting + scheduled 5 units TID (on 30 units TID at home pre-meal insulin) DM diet LLE swelling pt reports intermittently increased will r/o DVT; CTA neg for PE History of Sjoren's / RA continue baseline meds Chronic pain continue meds as clinically appropriate HTN med rec pending, continue baseline TENISHA CPAP Full Code DVT pptx - Lovenox Pt with acute on chronic resp failure with multiple undelrying risk factors - COPD, uncontrolled DM, RA/Sjoren's, TENISHA/Obesity - therefore, expected to require overnight in the hospital for treatment and monitoring of response. Therefore, will be admitted as inpt. Quality Stroke Does the patient have a stroke diagnosis?: No VTE Prior VTE?: No VTE Risk Level:: Medical - moderate - high VTE Device Contraindication: N/A - Device Ordered VTE Drug Contraindication: N/A - Med Ordered
[2024-07-28 16:23] LABS: Glucose, Whole Blood 327 mg/dL (60-115)
[2024-07-28 20:17] LABS: Glucose, Whole Blood 298 mg/dL (60-115)
[2024-07-29] VITALS (10 sets, daily range): BP systolic 145–166; BP diastolic 70–75; PULSE 59–74; RESP 16–20; TEMP 36.2–36.8; O2SAT 94–99
[2024-07-29] MEDS: Magnesium Oxide 400 MG TABLET PO ×2 (00:01→12:14)
[2024-07-29] MEDS: Hydroxychloroquine Sulfate 200 MG TABLET PO (00:01)
[2024-07-29] MEDS: Montelukast Sodium 10 MG TABLET PO (00:02)
[2024-07-29] MEDS: Pregabalin 75 MG CAPSULE PO ×2 (00:02→12:14)
[2024-07-29] MEDS: Pramipexole Di-HCL 0.25 MG TABLET 0.5 MG PO (00:02)
[2024-07-29] MEDS: Insulin Glargine,Hum.rec.anlog 100 UNIT/ML 10 ML VIAL 40 UNIT SUBCUT (00:04)
[2024-07-29] MEDS: methylPREDNISolone Sod Succ 40 MG/ML VIAL IVPUSH ×2 (00:05→09:37)
[2024-07-29] MEDS: Doxycycline Hyclate 100 MG in 0.9 % Sodium Chloride 250 ML 166.67 MG IV (04:14)
[2024-07-29] MEDS: oxyCODONE HCl Immed Release 5 MG TABLET 10 MG PO ×4 (04:16→22:08)
[2024-07-29 06:19] LABS: Anion Gap 13 (12-20); Blood Urea Nitrogen 20 mg/dL (9-16); Carbon Dioxide 31 mmol/L (22-29); Chloride 96 mmol/L (96-108); Creatinine Clr Calc Pharmacy 108.5; Estimated Glomerular Filt Rate > 60; Glucose Random 306 mg/dL (60-115); Potassium 4.8 mmol/L (3.3-5.1); Sodium 135 mmol/L (135-145)
[2024-07-29 07:26] LABS: Glucose, Whole Blood 295 mg/dL (60-115)
[2024-07-29] MEDS: Insulin Lispro 100 UNIT/ML 3 ML VIAL SUBCUT ×6 (08:18→22:11)
[2024-07-29] MEDS: Albuterol Sulfate (0.083%) 2.5 MG/3 ML VIAL.NEB INHALE ×4 (08:21→18:52)
[2024-07-29] MEDS: Furosemide 20 MG/2 ML VIAL IVPUSH (08:22)
[2024-07-29] MEDS: 0.9 % Sodium Chloride Flush 3 ML SYRINGE IVFLUSH (08:25)
[2024-07-29] MEDS: Nystatin Oral Susp 500,000 UNIT/5 ML ORAL.SUSP 400000 UNIT BUCCAL ×4 (09:33→22:09)
[2024-07-29] MEDS: guaiFENesin LA 600 MG TAB.ER.12H PO ×2 (09:33→22:09)
[2024-07-29] MEDS: Nicotine 21 MG PATCH.TD24 TRANSDERMA (09:36)
[2024-07-29] MEDS: Enoxaparin Sodium 40 MG/0.4 ML SYRINGE SUBCUT (09:40)
[2024-07-29] MEDS: Nystatin Powder 15 GM BOTTLE 1 APPL TOPICAL ×3 (09:43→22:11)
[2024-07-29 11:22] LABS: Glucose, Whole Blood 354 mg/dL (60-115)
[2024-07-29] MEDS: Omeprazole 20 MG CAPSULE.DR PO (12:05)
[2024-07-29] MEDS: Ferrous Sulfate 324 MG TABLET.DR PO (12:05)
[2024-07-29] MEDS: Loratadine 10 MG TABLET PO (12:06)
[2024-07-29] MEDS: Pramipexole Di-HCL 0.25 MG TABLET PO (12:06)
[2024-07-29] MEDS: Multivitamin TABLET 1 TAB PO (12:06)
[2024-07-29] MEDS: Morphine Sulfate ER 30 MG TABLET.ER PO ×2 (12:13)
[2024-07-29] MEDS: Aspirin 325 MG TABLET PO ×2 (12:46)
--- NOTE | 2024-07-29 12:57 | P.CDIM_ITS ---
PROVIDER RESPONSE TEXT: To clarify, the appropriate diagnosis supported by the clinical indicators: Hyperkalemia: acute QUERY TEXT: PHYSICIAN'S DOCUMENTATION REQUEST Date of Query: 07/29/2024 07:37 AM EDT Patient Name: Lashon Parra Admit Date: 07/27/2024 Dear Destiny Dietz MD, A review of the medical record indicates additional documentation may be needed. Please review below and update the documentation accordingly. Clinical Indicators: LABS: potassium 5.7 H 5.2 Based on the above, is there a diagnosis that correlates with these findings: Hyperkalemia resolved, possible, probable, suspected, cannot rule out etc. Labs indicate a diagnosis of (please specify) Other (explain) Clinically unable to determine (explain) Thank you, Rosalie Alexandre, CCS, CDIS Use of terms such as suspected, likely, concern for, or probable (associated with a specific diagnosi s that is being evaluated, monitored, or treated as if it exists) are acceptable and can be coded in the inpatient se tting, when documented at the time of discharge. Please use your independent medical judgment in providing your response. THIS QUERY IS PART OF THE PERMANENT MEDICAL RECORD
--- NOTE | 2024-07-29 14:01 | HO.PM.IMPN ---
Subjective Subjective Date of Service: 07/29/24 Interval History: seen and evaluated still coughing and having wheezes Dyspnea on exertion Drops to 80s with few steps no other overnight events Review of Systems Review of Systems: Yes all other systems are reviewed and are negative Physical Exam Vital Signs: Vital Signs: Last Vital Signs Temp 98.0 F 07/29/24 11:24 Pulse 67 07/29/24 11:31 Resp 18 07/29/24 11:31 BP 166/70 H 07/29/24 11:24 Pulse Ox 97 07/29/24 11:24 O2 Del Method Nasal Cannula 07/29/24 11:24 O2 Flow Rate 3.0 07/29/24 11:24 Oxygen Flow Rate 4 07/27/24 03:00 BMI result Body Mass Index 36.7 Const: Other: Constitutional : Awake, interactive, not in distress Neck : Normal inspection, Supple Cardiovascular : RRR, no JVP, no lower extremity edema Respiratory : decreased bilateral air entry, no crackles, bilateral expiratory wheezes Gastrointestinal: soft, lax, Normal bowel sounds, Non tender Skin : Warm, Dry Neurological : Alert & oriented x3, No focal deficit Objective Data Active Medications Albuterol Sulfate (Albuterol Sulfate (0.083%) 2.5 Mg/3 Ml Vial.Neb) 2.5 mg INHALE RQ4H WHILE AWAKE [facility] Last Admin: 07/29/24 11:25 Dose: 2.5 mg Documented By: LUDMILA Aspirin (Aspirin 325 Mg Tablet) 325 mg PO BID@0030,1230 [facility] Last Admin: 07/29/24 12:46 Dose: 325 mg Documented By: JUSTINE Calcium Carbonate (Calcium Carbonate 750 Mg Tab.Chew) 750 mg PO Q4H PRN PRN Reason: Heartburn Cyclobenzaprine HCl (Cyclobenzaprine Hcl 5 Mg Tablet) 5 mg PO BID PRN PRN Reason: Muscle Spasm Last Admin: 07/28/24 15:29 Dose: 5 mg Documented By: DIONISIO Diclofenac Sodium (Diclofenac Sodium Delayed Rel 75 Mg Tablet.) 75 mg PO DAILY PRN PRN Reason: Pain, Mild (Pain Scale 1-3) Last Admin: 07/27/24 18:33 Dose: 75 mg Documented By: TRACY Enoxaparin Sodium (Enoxaparin Sodium 40 Mg/0.4 Ml Syringe) 40 mg SUBCUT Q24H [facility] Last Admin: 07/29/24 09:40 Dose: 40 mg Documented By: JUSTINE Ferrous Sulfate (Ferrous Sulfate 324 Mg Tablet.) 324 mg PO DAILY@1230 [facility] Last Admin: 07/29/24 12:05 Dose: 324 mg Documented By: JUSTINE Guaifenesin (Guaifenesin La 600 Mg Tab.Er.12h) 600 mg PO BID [facility] Last Admin: 07/29/24 09:33 Dose: 600 mg Documented By: JUSTINE Hydroxychloroquine Sulfate (Hydroxychloroquine Sulfate 200 Mg Tablet) 200 mg PO DAILY@0030 [facility] Last Admin: 07/29/24 00:01 Dose: 200 mg Documented By: AIDA Doxycycline Hyclate 100 mg/ (Sodium Chloride) 250 mls @ 166.67 mls/hr IV Q12H [facility] Last Infusion: 07/29/24 06:34 Dose: Infused Documented By: AIDA Insulin Glargine (Insulin Glargine,Hum.Rec.Anlog 100 Unit/Ml 10 Ml Vial) 40 unit SUBCUT BEDTIME@0030 [facility] Last Admin: 07/29/24 00:04 Dose: 40 unit Documented By: AIDA Insulin Human Lispro (Insulin Lispro 100 Unit/Ml 3 Ml Vial) 0 unit SUBCUT QIDACHS [facility]; Protocol Last Admin: 07/29/24 12:02 Dose: 10 unit Documented By: JUSTINE Insulin Human Lispro (Insulin Lispro 100 Unit/Ml 3 Ml Vial) 5 unit SUBCUT TIDAC [facility] Last Admin: 07/29/24 12:04 Dose: 5 unit Documented By: JUSTINE Loratadine (Loratadine 10 Mg Tablet) 10 mg PO DAILY@1230 [facility] Last Admin: 07/29/24 12:06 Dose: 10 mg Documented By: JUSTINE Magnesium Hydroxide (Milk Of Magnesia 30 Ml Oral.Susp) 30 ml PO DAILY PRN PRN Reason: Constipation Magnesium Oxide (Magnesium Oxide 400 Mg Tablet) 400 mg PO BID@0030,1230 [facility] Last Admin: 07/29/24 12:14 Dose: 400 mg Documented By: JUSTINE Melatonin (Melatonin 3 Mg Tablet) 6 mg PO BEDTIME PRN PRN Reason: Insomnia Methylprednisolone Sodium Succinate (Methylprednisolone Sod Succ 40 Mg/Ml Vial) 40 mg IVPUSH Q8H [facility] Last Admin: 07/29/24 09:37 Dose: 40 mg Documented By: JUSTINE Montelukast Sodium (Montelukast Sodium 10 Mg Tablet) 10 mg PO BEDTIME@0030 [facility] Last Admin: 07/29/24 00:02 Dose: 10 mg Documented By: AIDA Morphine Sulfate (Morphine Sulfate Er 30 Mg Tablet.Er) 30 mg PO BID@0030,1230 [facility] Last Admin: 07/29/24 12:13 Dose: 30 mg Documented By: JUSTINE Multivitamins/Vitamin C (Multivitamin Tablet) 1 tab PO DAILY@1230 [facility] Last Admin: 07/29/24 12:06 Dose: 1 tab Documented By: JUSTINE Nicotine (Nicotine 21 Mg Patch.Td24) 21 mg TRANSDERMA DAILY [facility] Last Admin: 07/29/24 09:36 Dose: 21 mg Documented By: JUSTINE Nystatin (Nystatin Powder 15 Gm Bottle) 1 appl TOPICAL TID [facility]; Protocol Last Admin: 07/29/24 09:43 Dose: 1 appl Documented By: JUSTINE Nystatin (Nystatin Oral Susp 500,000 Unit/5 Ml Oral.Susp) 400,000 unit BUCCAL QID [facility]; Protocol Last Admin: 07/29/24 12:06 Dose: 400,000 unit Documented By: JUSTINE Omeprazole (Omeprazole 20 Mg Capsule.Dr) 20 mg PO DAILY@1230 [facility] Last Admin: 07/29/24 12:05 Dose: 20 mg Documented By: JUSTINE Oxycodone HCl (Oxycodone Hcl Immed Release 5 Mg Tablet) 10 mg PO QID PRN PRN Reason: Pain, Severe (Pain Scale 7-10) Last Admin: 07/29/24 08:44 Dose: 10 mg Documented By: OK Comments: Given early per Dr. Dietz. Pramipexole Dihydrochloride (Pramipexole Di-Hcl 0.25 Mg Tablet) 0.5 mg PO BEDTIME@0030 [facility] Last Admin: 07/29/24 00:02 Dose: 0.5 mg Documented By: AIDA Pramipexole Dihydrochloride (Pramipexole Di-Hcl 0.25 Mg Tablet) 0.25 mg PO DAILY@1230 [facility] Last Admin: 07/29/24 12:06 Dose: 0.25 mg Documented By: JUSTINE Pregabalin (Pregabalin 75 Mg Capsule) 75 mg PO BID@0030,1230 [facility] Last Admin: 07/29/24 12:14 Dose: 75 mg Documented By: JUSTINE Sodium Chloride (0.9 % Sodium Chloride Flush 3 Ml Syringe) 3 ml IVFLUSH QSHIFT [facility] Last Admin: 07/29/24 08:25 Dose: 3 ml Documented By: JUSTINE Labs 07/28/24 06:12 07/29/24 05:39 Labs: Laboratory Results - last 24 hr 07/28/24 07/28/24 07/29/24 16:15 20:10 05:39 Hold Purple Top SEE NOTE Anion Gap 13 Estim Creat Clear Calc 108.5 Estimated GFR > 60 POC Glucose 327 H 298 H Random Glucose 306 H Calcium 9.0 07/29/24 07/29/24 07:22 11:19 Hold Purple Top Anion Gap Estim Creat Clear Calc Estimated GFR POC Glucose 295 H 354 H* Random Glucose Calcium Microbiology Microbiology Results: Microbiology 07/27/24 03:34 Blood Culture - Preliminary Blood - Venous No growth after 48 hours. 07/27/24 03:22 Blood Culture - Preliminary Blood - Venous No growth after 48 hours. Assessment and Plan (1) Acute exacerbation of chronic obstructive pulmonary disease: Status: Acute (2) Acute and chronic respiratory failure with hypoxia: Status: Acute Plan 64 yo F with chronic hypoxic and hypercarbic resp failure, tenisha, RA, DM, Sjoren's, on going tobacco use, chronic pain who presents with a several day history of fatigue and increasing dyspnea + pleuritic chest pain. Work up consistent with acute on chronic hypoxic and chronic hypercarbic resp failure due to COPD exacerbation, likely secondary to viral illness. Acute on chronic hypoxic resp failure 2/2 Acute copd exacerbation continue supplemental O2 with goal of 88-92 IV steroids. NEbulizers charlette and PRN mucinex empiric antibiotics for bronchitis coverage neg resp. pathogen panel DM with hyperglycemia hold orals sliding scale + long acting + scheduled 5 units TID (on 30 units TID at home pre-meal insulin) DM diet LLE swelling pt reports intermittently increased will r/o DVT; CTA neg for PE History of Sjoren's / RA continue baseline meds Chronic pain continue meds as clinically appropriate HTN med rec pending, continue baseline TENISHA CPAP Full Code DVT pptx - Lovenox Pt with acute on chronic resp failure with multiple undelrying risk factors - COPD, uncontrolled DM, RA/Sjoren's, TENISHA/Obesity - therefore, expected to require overnight in the hospital for treatment and monitoring of response. Therefore, will be admitted as inpt. Quality Stroke Does the patient have a stroke diagnosis?: No VTE Prior VTE?: No VTE Risk Level:: Medical - moderate - high VTE Device Contraindication: N/A - Device Ordered VTE Drug Contraindication: N/A - Med Ordered
[2024-07-29 16:13] LABS: Glucose, Whole Blood 164 mg/dL (60-115)
--- NOTE | 2024-07-29 17:00 | PC.NURSE ---
Patient complaining of pain at IV site. IV removed. Patient requesting to not have new IV placed. Dr. Dietz notified. okayed patient to remain without new IV at this time.
[2024-07-29] MEDS: predniSONE 20 MG TABLET 40 MG PO (17:08)
--- NOTE | 2024-07-29 17:50 | HO.WOUND ---
Wound Consult: Initial 64yr old? admitted to [facility] on 07/27/24 06:51- See progress notes and H&P for detailed history.? Wound consult placed for Coccyx wound while performing P&I data collection.? Patient agreeable to assessment and photo documentation.? 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 Rachel wound: mirrored pink pigmentation and scar tissue evidence of prior pressure injury - not able to find documentaiton in this chart review to detail depth of prior injury but scar tissue suggests full thickness tissue loss. ? No Induration, Fluctuance or Warmth noted Pain: tenderness Goals of Treatment: ? barrier cream and foam dressing to protect and aid in off loading pressure Redness noted to bilateral feet and heels -remains intact and blanchable Recommendations: 1. Turn and Reposition every 2 hours and as needed for patient comfort.? Use pillows or wedges to support off loading positions. 2. Off Load all bony prominences with use of pillows and heel boots if needed.? Apply Preventative foams where needed. ? 3. Monitor for incontinence and moisture control, use barrier creams when needed for prevention and treatment. 4. Provide adequate and supplemental nutrition.? 5. Order low air loss mattress. 6. When applicable maintain blood glucose levels per Providers order. Bilateral Heels - Elevate heels off of bed surface with pillows.? Float heels off of pillows.? Apply skin prep allow to dry.? Apply heel foam dressings, peel back and assess Q shift and change every 5-7 days and PRN. Coccyx - Off Load Pressure with Q2 hr turns and use of pillows - Cleanse with PH balance spray or wipes, pat dry. ?Apply thin layer of Triad to wound bed. Do not remove all of paste between applications as this may cause further skin damage.? Cover with foam dressing to aid in off loading and protection from friction. Change every 3 days and PRN. Re-consult wound care Nurse for wound deterioration or wound changes.
[2024-07-29 18:12] LABS: Glucose, Whole Blood 249 mg/dL (60-115)
[2024-07-29] MEDS: Doxycycline Monohydrate 100 MG CAPSULE PO (18:17)
[2024-07-29 21:08] LABS: Glucose, Whole Blood 294 mg/dL (60-115)
[2024-07-30] MEDS: Aspirin 325 MG TABLET PO ×2 (00:03→12:25)
[2024-07-30] MEDS: Morphine Sulfate ER 30 MG TABLET.ER PO ×2 (00:03→12:26)
[2024-07-30] MEDS: Pregabalin 75 MG CAPSULE PO ×2 (00:04→12:35)
[2024-07-30] MEDS: Pramipexole Di-HCL 0.25 MG TABLET 0.5 MG PO (00:04)
[2024-07-30] MEDS: Magnesium Oxide 400 MG TABLET PO ×2 (00:04→12:26)
[2024-07-30] MEDS: Hydroxychloroquine Sulfate 200 MG TABLET PO (00:04)
[2024-07-30] MEDS: Montelukast Sodium 10 MG TABLET PO (00:04)
[2024-07-30] MEDS: Insulin Glargine,Hum.rec.anlog 100 UNIT/ML 10 ML VIAL 50 UNIT SUBCUT (00:06)
[2024-07-30 03:14] VITALS: BP 138/82; PULSE 60; RESP 18; TEMP 36.6; O2SAT 97
[2024-07-30] MEDS: oxyCODONE HCl Immed Release 5 MG TABLET 10 MG PO ×2 (04:10→09:25)
[2024-07-30] MEDS: Doxycycline Monohydrate 100 MG CAPSULE PO (06:44)
[2024-07-30 07:20] VITALS: BP 151/76; PULSE 57; RESP 16; TEMP 36.1; O2SAT 97
[2024-07-30 07:36] LABS: Glucose, Whole Blood 208 mg/dL (60-115)
[2024-07-30] MEDS: Albuterol Sulfate (0.083%) 2.5 MG/3 ML VIAL.NEB INHALE (07:36)
[2024-07-30 07:37] VITALS: PULSE 57; RESP 16; O2SAT 94
[2024-07-30] MEDS: guaiFENesin LA 600 MG TAB.ER.12H PO (08:06)
[2024-07-30] MEDS: Cyclobenzaprine HCl 5 MG TABLET PO (08:06)
[2024-07-30] MEDS: predniSONE 20 MG TABLET 40 MG PO (08:07)
[2024-07-30] MEDS: Insulin Lispro 100 UNIT/ML 3 ML VIAL SUBCUT ×2 (08:07→12:16)
[2024-07-30] MEDS: Enoxaparin Sodium 40 MG/0.4 ML SYRINGE SUBCUT (08:08)
[2024-07-30] MEDS: Nicotine 21 MG PATCH.TD24 TRANSDERMA (08:08)
[2024-07-30] MEDS: Nystatin Powder 15 GM BOTTLE 1 APPL TOPICAL (08:14)
[2024-07-30] MEDS: Nystatin Oral Susp 500,000 UNIT/5 ML ORAL.SUSP 400000 UNIT BUCCAL (09:24)
--- NOTE | 2024-07-30 11:05 | MHC.CM.PN ---
Per MD rounds patient medically cleared for dc home self care. will provide transport at 12:30pm. Will bring portable O2. RN aware.
[2024-07-30 11:20] LABS: Glucose, Whole Blood 256 mg/dL (60-115)
--- NOTE | 2024-07-30 11:30 | PM.DS ---
DS: Providers Provider Date of Service: 07/30/24 Date of admission: 07/27/24 06:51 Date of discharge: 07/30/24 Primary care physician: Dottie Douglass MD DS: Diagnosis Discharge Diagnosis (1) Acute exacerbation of chronic obstructive pulmonary disease: Status: Acute (2) Acute and chronic respiratory failure with hypoxia: Status: Acute (3) Hyperglycemia due to type 2 diabetes mellitus: Status: Acute DS: Summary Hospital Course Hospital Course: Admission note HPI The patient is a 64-year-old female with a past medical history significant for severe emphysema/COPD, active tobacco use, chronic pain on narcotics, Sjogren's disease, RA, GERD and diabetes mellitus who presents to the emergency room with complaints of progressive shortness of breath and fatigue over the last several days. The patient reports a chronic cough productive of sputum. She reports generalized malaise. She reports that she has required her p.r.n. oxygen continuously over the last several days. She denies any fevers or chills. Denies any sick contacts. She denies any or GI symptoms. She reprots chest pain, which is sharp and reproducible. In the emergency room the patient was found to have COPD exacerbation was treated with IV steroids and IV antibiotics. She underwent a CTA which was negative for PE it did not show any infiltrates suggestive of pneumonia. She was also found to have cardiomegaly without evidence of heart failure. BNP is slightly high at 251. Pt is seen and examined in the ED around 9am. She appears fatigued but is able to give history and answer questions appropriately. Hospital course The patient was admitted and treated for acute on chronic hypoxic resp failure secondary to Acute copd exacerbation and treated with continues supplemental O2 with goal of 88-92, IV steroids, NEbulizers charlette and PRN , mucinex and empiric antibiotics for bronchitis coverage as she had neg resp. pathogen panel. Improved slowly over the course of hospital stay and weaned down O2 supplement with good tolerance as she was able to ambulate with no significant dyspnea or hypoxia. To be discharged on prednisone, doxy and home nebs. For DM with hyperglycemia controlled with sliding scale + long acting + scheduled 5 units TID (on 30 units TID at home pre-meal insulin) for LLE swelling. r/o DVT with US; CTA neg for PE. improved with Lasix. To give PRN lasix for edema at home. Discharge plan Finish 3 more days of Doxycycline Prednisone tapering dose as prescribed Lasix as needed for swelling in legs Nystatin for thrush Use your nebulizer 3-4 times a day for the next 3 days then as needed Quit smoking Time Attestation Discharge Coordination Time (in mins): 41 Quality: Safe Use of Opioids Does Pt have an Active Cancer Diagnosis on the Problem List?: No Quality: Stroke Does the patient have a stroke diagnosis?: No Physical Exam Vital Signs: Vital Signs: Last Vital Signs Temp 97.0 F 07/30/24 07:20 Pulse 57 07/30/24 07:37 Resp 16 07/30/24 07:37 BP 151/76 H 07/30/24 07:20 Pulse Ox 97 07/30/24 07:20 O2 Del Method Nasal Cannula 07/30/24 07:20 O2 Flow Rate 2.0 07/30/24 07:20 Oxygen Flow Rate 4 07/27/24 03:00 BMI result Body Mass Index 36.7 DS: Data Data Completed and Pending Completed studies during hospitalization [Text1]: Procedures Assistance with Respiratory Ventilation, Less than 24 Consecutive Hours, Continuous Positive Airway Pressure (02/27/24) Labs on day of discharge: Laboratory Results - last 24 hr 07/29/24 07/29/24 07/29/24 16:09 18:09 21:05 POC Glucose 164 H 249 H 294 H 07/30/24 07/30/24 07:11 11:16 POC Glucose 208 H 256 H Preliminary micro results at discharge 07/27/24 03:34 Blood Culture - Preliminary Blood - Venous No growth after 48 hours. 07/27/24 03:22 Blood Culture - Preliminary Blood - Venous No growth after 48 hours. Discharge Plan Discharge Anticipated Discharge Date/Time: 07/30/24 11:17 Patient Disposition: Home, Self-Care Discharge Diagnosis: COPD exacerbation Referrals: Dottie Douglass MD [Primary Care Provider] - 1 Week Discharge Medications: New doxycycline monohydrate 100 mg Capsule 100 mg PO Q12H Qty: 6 0RF nystatin 100,000 unit/mL Suspension 400,000 unit buccal QID Qty: 250 0RF nystatin [Nyamyc] 100,000 unit/gram Powder 1 appl topical TID Qty: 30 0RF Protocol: Apply to: Apply to: groin and buttocks prednisone 10 mg tablet See Taper PO DIRECTED Qty: 30 0RF Taper: Prednisone 40 mg daily for 3 Days and 0 Hour 30 mg daily for 3 Days and 0 Hour 20 mg daily for 3 Days and 0 Hour 10 mg daily for 3 Days and 0 Hour Rx Instructions: see taper instructions furosemide 20 mg tablet 20 mg PO Q OTHER DAY PRN (Reason: edema) Qty: 30 0RF Continued (DME) blood-glucose meter Kit See Rx Instructions .Route Qty: 1 0RF Rx Instructions: 4 times daily to check blood glucose cyclobenzaprine 5 mg tablet 5 mg PO BID PRN (Reason: Pain) 90 Days Qty: 180 3RF (DME) Oxygen Home Use Kit See Rx Instructions .Route Qty: 1 3RF Rx Instructions: 2L continuous oxycodone 10 mg tablet 10 mg PO QID PRN (Reason: pain) 28 Days Qty: 112 0RF morphine 30 mg tablet extended release 30 mg PO BID@0030,1230 28 Days Qty: 56 0RF [id number] mg capsule 1 cap PO QID PRN (Reason: headache) 28 Days Qty: 28 0RF aspirin 325 mg Tablet 325 mg PO BID@0030,1230 loratadine 10 mg Tablet 10 mg PO 1230 PRN (Reason: ALLERGIES) pantoprazole 40 mg tablet,delayed release (DR/EC) 40 mg PO DAILY@1230 pramipexole 0.25 mg tablet 0.5 mg PO BEDTIME@0030 insulin glargine [Lantus U-100 Insulin] 100 unit/mL Solution 40 unit SUBCUT BEDTIME@0030 magnesium oxide 400 mg (241.3 mg magnesium) tablet 400 mg PO BID@0030,1230 amlodipine 10 mg tablet 10 mg PO DAILY@0030 metformin 1,000 mg tablet 1,000 mg PO BID@0030,1230 losartan 25 mg tablet 25 mg PO DAILY@0030 pramipexole 0.25 mg tablet 0.25 mg PO DAILY@1230 diclofenac sodium 75 mg tablet,delayed release (DR/EC) 75 mg PO DAILY PRN (Reason: Pain) montelukast 10 mg tablet 10 mg PO BEDTIME@0030 mupirocin 2 % ointment 1 appl topical DAILY PRN (Reason: AFFECTED AREA) hydroxychloroquine 200 mg tablet 200 mg PO DAILY@0030 insulin lispro [Humalog KwikPen Insulin] 100 unit/mL insulin pen 30 unit subcut TIDAC pregabalin [Lyrica] 75 mg capsule 75 mg PO BID@0030,1230 linaclotide 145 mcg capsule 145 mcg PO DAILY@1230 multivitamin Tablet 1 tab PO DAILY@1230 ferrous sulfate 325 mg (65 mg iron) Tablet 325 mg PO DAILY@1230 cholecalciferol (vitamin D3) [Vitamin D3] 50 mcg (2,000 unit) Capsule 50 mcg PO DAILY@0030 hyoscyamine sulfate 0.125 mg tablet 0.125 mg PO DAILY PRN (Reason: GI ) (DME) FreeStyle Mag 3 Plus Sensor Device See Rx Instructions .Route Qty: 6 3RF Rx Instructions: As directed (DME) FreeStyle Mag 3 [place] Misc See Rx Instructions .Route Qty: 1 0RF Rx Instructions: As directed Discharge Orders: Discharge Order (Routine); Ordered 07/30/24 Ordered By: Destiny Dietz Diet: Diabetic diet Activity on Discharge: As tolerated Stand Alone Forms: Patient Portal Discharge page Print Language: Cymraes Care Plan Goals: Finish 3 more days of Doxycycline Prednisone tapering dose as prescribed Lasix as needed for swelling in legs Nystatin for thrush Use your nebulizer 3-4 times a day for the next 3 days then as needed Quit smoking Health Concerns: COPD exacerbation Plan of Treatment: Steroids, antibiotics, quit smoking Assessment: as above Patient Instructions: COPD (Chronic Obstructive Pulmonary Disease) (DC)
[2024-07-30] MEDS: Multivitamin TABLET 1 TAB PO (12:17)
[2024-07-30] MEDS: Loratadine 10 MG TABLET PO (12:17)
[2024-07-30] MEDS: Ferrous Sulfate 324 MG TABLET.DR PO (12:17)
[2024-07-30] MEDS: Omeprazole 20 MG CAPSULE.DR PO (12:17)
[2024-07-30] MEDS: Pramipexole Di-HCL 0.25 MG TABLET PO (12:17)
[2024-07-30 12:30] VITALS: BP 145/69; PULSE 72; RESP 18; TEMP 36.2; O2SAT 92
== END 2024-07-30 14:02 | disposition home or self-care (01) | DRG 190 ==
LOC: HO.ED 06:38 → HO.EDOVER 07:10 → HO.S3 19:21
PROVIDERS: Family Medicine; Admitting Provider Student in an Organized Health Care Education/Training Program; Emergency Provider Emergency Medicine; PCP Internal Medicine; Visit Provider Student in an Organized Health Care Education/Training Program
DX: J43.9 Emphysema, unspecified (principal); J96.21 Acute and chronic respiratory failure with hypoxia; J96.22 Acute and chronic respiratory failure with hypercapnia; M06.9 Rheumatoid arthritis, unspecified; F17.210 Nicotine dependence, cigarettes, uncomplicated; E11.65 Type 2 diabetes mellitus with hyperglycemia; Z71.6 Tobacco abuse counseling; G47.33 Obstructive sleep apnea (adult) (pediatric); E87.5 Hyperkalemia; M35.00 Sjogren syndrome, unspecified; Z99.81 Dependence on supplemental oxygen; B97.89 Other viral agents as the cause of diseases classified elsewhere; G89.4 Chronic pain syndrome; Z79.4 Long term (current) use of insulin; Z79.82 Long term (current) use of aspirin; Z79.84 Long term (current) use of oral hypoglycemic drugs; Z79.899 Other long term (current) drug therapy
CPT/HCPCS: 0241U; 36415; 71045; 71275; 80048; 80076; 82803; 82947; 83605; 83735; 83880; 84484; 85025; 85027; 87040; 87633; 93005; 93971; 94640; 99285; J0696; J1100; J1271; J1650; J1938; J2919; J7120; Q9967

== ENCOUNTER → 2024-07-27 03:10 | Outpatient (BNV) | payer OTHER, SELFPAY | PROVIDERS: Admitting Provider Student in an Organized Health Care Education/Training Program; Emergency Provider Emergency Medicine; PCP Internal Medicine; Visit Provider Internal Medicine Cardiovascular Disease | DX: I44.5 Left posterior fascicular block (principal) | CPT/HCPCS: 93010 ==

== ENCOUNTER → 2024-07-27 03:11 | Outpatient (BNV) | payer OTHER, SELFPAY | PROVIDERS: Emergency Provider Emergency Medicine; PCP Internal Medicine; Visit Provider Radiology Diagnostic Radiology | DX: R06.00 Dyspnea, unspecified (principal); R22.42 Localized swelling, mass and lump, left lower limb; I51.7 Cardiomegaly | CPT/HCPCS: 71045; 71275; 93971 ==

== ENCOUNTER → 2024-07-27 06:51 | Outpatient (BNV) | payer OTHER, SELFPAY | PROVIDERS: Admitting Provider Student in an Organized Health Care Education/Training Program; Emergency Provider Emergency Medicine; PCP Internal Medicine; Visit Provider Family Medicine | DX: J44.1 Chronic obstructive pulmonary disease with (acute) exacerbation (principal); J96.21 Acute and chronic respiratory failure with hypoxia | CPT/HCPCS: 99232 ==

== ENCOUNTER 2024-08-09 09:51 | Outpatient (AMB) | payer OTHER, SELFPAY ==
--- NOTE | 2024-08-09 09:55 | A.OFFPC_ITS ---
Vital Signs 08/09/24 10:02 BMI Reason not done Patient refused/unable BP 134/64 Blood Pressure Location Lt brachial Position Sitting Respiration 16 Pulse 101 H Pulse Source Pulse Oximeter Temp 98.5 F Temp Source Oral Pulse Oximetry (%) 84 L Oxygen Delivery Method Room Air Intake Visit Reasons: hospital follow up Intake Note: Hospital follow up. Dizzy the last 24 hours. Freelance Data Entry Required: No Allergies atorvastatin (From LIPITOR) Allergy (Severe, Verified 08/09/24 09:57) Difficulty Breathing azithromycin (AZITHROMYCIN) Allergy (Severe, Verified 08/09/24 09:57) Difficulty Breathing mite-Dermatophagoides farinae, vicente (dust mite - [place]) Allergy (Severe, Verified 08/09/24 09:57) Difficulty Breathing sumatriptan (From IMITREX) Allergy (Severe, Verified 08/09/24 09:57) Difficulty Breathing house dust Allergy (Mild, Verified 08/09/24 09:57) Unknown acetaminophen (From TYLENOL) Allergy (Unknown, Verified 08/09/24 09:57) Itching adhesive tape (ADHESIVE TAPE) Allergy (Unknown, Verified 08/09/24 09:57) Rash gentamicin (GENTAMICIN) Allergy (Unknown, Verified 08/09/24 09:57) Rash adalimumab (From Humira) Allergy (Verified 08/09/24 09:57) Rash erythromycin base Allergy (Verified 08/09/24 09:57) Unknown haloperidol (From HALDOL) Adverse Reaction (Unknown, Verified 08/09/24 09:57) GI Issues ketorolac (From TORADOL) Adverse Reaction (Unknown, Verified 08/09/24 09:57) Muscle cramps prasterone (DHEA) (From DHEA) Adverse Reaction (Unknown, Verified 08/09/24 09:57) Cardiac issues varenicline (From CHANTIX) Adverse Reaction (Unknown, Verified 08/09/24 09:57) Seizure ipratropium (From Atrovent) Adverse Reaction (Verified 08/09/24 09:57) Migraine Tobacco use date assessed: 08/09/24 Dental Screening Dental Screen Date: 08/09/24 HPI HPI Comments History of Present Illness Details 64-year-old female pmhx type 2 DM, RA, S jogrens, fibromyalgia, OA, celiac, UC, polycythemia, likely NHL, presenting for hospital follow up The patient was admitted at [facility] [place]27-07[place]24 for progressive sob and cough. she was treated for acute on chronic hypoxic resp failure secondary to Acute copd exacerbation and treated with continues supplemental O2 with goal of 88-92, IV steroids, nebulizers charlette and PRN , mucinex as well as empiric antibiotics for bronchitis coverage as she had neg resp. pathogen panel. Improved slowly over the course of hospital stay and weaned down O2 supplement with good tolerance as she was able to ambulate with no significant dyspnea or hypoxia. To be discharged on prednisone, doxy and home nebs. For DM with hyperglycemia controlled with sliding scale + long acting + scheduled 5 units TID (on 30 units TID at home pre-meal insulin) for LLE swelling. r/o DVT with US; CTA neg for PE. improved with Lasix. To give PRN lasix for edema at home. Intermittently confusion, hypersomnolence-Generally when falling or waking up from nap. She is falling asleep/nodding off easily. She has oxygen and uses more frequently except during transportation etc. Has pulm visit scheduled for August. Prior sleep study with nocturnal hypoxemia but only 1.5 hours of data. Should repeat in house. She endorses some balance issues, increased headaches and poor coordination, vertigo. Heme/Onc: Patient follows for polycythemia. Had previous peripheral smear concerning for lymphoproliferative disorder ([facility]). Recent smear more reassuring. 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 Per patients she was scheduled for endoscopy/colonoscopy for evaluation however anesthesia wanted this held -she underwent pulmonary work up, cardiac work up. Endocrine: Type 2 diabetes: On humalog, tresiba, metformin. A1C 8.2. overdue. She will wait for one month due to recent prednisone use. Also having lows which limits her uptitration without more information from a CGM which is ordered today. GI: History of duodenitis, esophagatis, colitis. Had double endoscopy 2020. Seen in 2022 with GI for possible repeat. Recently prescribed movantik though she reports this gave her opiate withdrawal. She is having increased dysphagia. Increased dental issues. She thinks her sjogrens is acting up Pulm: Diagnosed with COPD. TENISHA on cpap. Following with Dr Nevarez. CV: HTN on amlodipine. Echo 06/2023. Hyperdynamic EF>70%. Mild pulmonary hypertension ID: Frequent UTI. Underwent mon pubis lift at [facility]. Reports current UTI symptoms MSK/Rheum: Chronic pain: Multifactorial-RA/Sjogrens/Fibromyalgia/osteoarthrits/neuropathy. MRI 2020 disc desiccation at L5-S1 with annular bulge, disc protrustion, bony facet arthropathy on left L5-s1 impacting lateral aspect of the traversing left S1 nerve root. She repeated MRI in 2023. 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 Was following at pain management at [facility], previous to that Dr Wilkinson. On chronic opiate therapy, HCQ. Non compliant with preventive -mammo ROS see HPI PHYSICAL EXAM: GENERAL: Alert and oriented x 3. NAD. fatigued EYES: EOMI. Anicteric. HENT: Moist mucous membranes. No scleral icterus. No cervical lymphadenopathy. LUNGS: Decreased air entry. Scattered coarse rhonci CARDIOVASCULAR: Regular rate and rhythm. ABDOMEN: Soft, non-tender +bs EXTREMITIES: Trace b/l edema. SKIN: warm NEUROLOGIC: No focal neurological deficits. CN II-XII grossly intact PSYCHIATRIC: Cooperative. 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 Osteoporosis Sjogrens syndrome Rheumatoid arthritis Osteoarthritis Chronic, continuous use of opioids GERD (gastroesophageal reflux disease) Hx of difficult intubation Smoker COPD (chronic obstructive pulmonary disease) Asthma Polycythemia Boils Eczema Bursitis Disc degeneration Sleep apnea Diabetes Fibromyalgia Surgical History History of esophagogastroduodenoscopy (EGD) Hx of tonsillectomy History of surgical removal of pilonidal cyst Hx of plastic surgery Hx of hysterectomy Hx of cholecystectomy Hx of appendectomy History of colonoscopy History of bladder suspension procedure History of removal of cyst Family History Mother Polycythemia TIA (transient ischemic attack) Father Heart attack Other No family history of cancer Social History Household Members: Spouse Housing: House Are you a primary career development consultant to a significant other at home: No Do you presently have visiting nurse or other home services: No Alcohol intake: never Patient Tobacco Use Status: Current everyday Tobacco user Tobacco use type: Cigarette Cigarette Packs Per Day: 0.5 Cigarettes Per Day: 10.0 Years Smoked: 46 Packs Per Year: 23 Packs per year/per ci.00 e-Cigarette/Vaping Use: Never Used Second Hand Smoke Exposure: No Advance Directives Date on File: 12/24/19 service: No Current occupational status: retired 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 Cognitive needs: No Hearing needs: No Vision needs: No Questionnaire Thrive Questionnaire Date Thrive assessed: 02/20/24 I am a: Patient What is your living situation today?: I have a steady place to live Within the past 12 months, did the food you bought not last and you didn't have the money to get more?: I choose not to answer this question Within the past 12 months, did you worry whether your food would run out before you got money to buy more?: I choose not to answer this question Do you have trouble paying for medicines?: I choose not to answer this question Do you have trouble getting transportation to medical appointments?: I choose not to answer this question Do you have trouble paying your heating and electricity bill?: I choose not to answer this question Do you have trouble taking care of your child, family member or friend?: I choose not to answer this question Do you have trouble with day-to-day activities such as bathing, preparing meals, shopping, managing finances, etc.?: I choose not to answer this question Are you currently unemployed and looking for a job?: I choose not to answer this question Are you interested in more education?: I choose not to answer this question Please select the resources that you would like help with: None Currently or been in a relationship where the following occur: No concerns reported THRIVE Score: 0 AUDIT C Alcohol Use Questionnaire (AUDIT-C) 1. How often do you have a drink containing alcohol?: Never 3. How often do you have six or more drinks on one occasion?: Never Total Score: 0 BERNARDO-7 AMB Questionnaire BERNARDO-7 Date BERNARDO - 7 assessed: 02/13/24 Source: Developed by Drs. Sumanth Stover, Sun Dan, Pavel Mckenzie and colleagues, with an educational joy from Context app. Physical exam (Primary Care) Vital Signs: Last Vital Signs Temp 98.5 F 08/09/24 10:02 Pulse 101 H 08/09/24 10:02 Resp 16 08/09/24 10:02 BP 134/64 08/09/24 10:02 Pulse Ox 84 L 08/09/24 10:02 Oxygen Delivery Method Room Air 08/09/24 10:02 Tobacco/Smoking Status: Tobacco use Status Tobacco use date assessed 08/09/24 08/09/24 10:01 Patient Tobacco Use Status Current everyday Tobacco 08/09/24 09:56 Tobacco use type Cigarette 08/09/24 09:56 e-Cigarette/Vaping Use Never Used 08/09/24 09:56 Thrive Assessment: Date of Thrive Assessment Date Thrive assessed 02/20/24 08/09/24 09:56 Currently or been in a relationship where the following occur: No concerns reported Coding Level of Care Code Est Pt Level 5 (77406) Complex EM visit Add On G2211 Diagnoses Hospital discharge follow-up Z09 plaster helper (current) use of opiate analgesic Z79.891 Type 2 diabetes mellitus with hyperglycemia, with long-term current use of insulin E11.65; Z79.4 Diabetes mellitus snf insulin use: with timber robber use Osteoporosis without current pathological fracture, unspecified osteoporosis type M81.0 Osteoporosis type: unspecified Presence of current pathological fracture: without current pathological fracture Polycythemia D75.1 Sjogren's syndrome, with unspecified organ involvement M35.00 Sjogren organ or system involvement: unspecified organ involvement Assessment & Plan Assessment & Plan (1) Hospital discharge follow-up: Code(s): Z09 - Encounter for follow-up examination after completed treatment for conditions other than malignant neoplasm Category: Medical (2) plaster helper (current) use of opiate analgesic: Code(s): Z79.891 - plaster helper (current) use of opiate analgesic Category: Medical (3) Hyperglycemia due to type 2 diabetes mellitus: Code(s): E11.65 - Type 2 diabetes mellitus with hyperglycemia Category: Medical Qualifiers: Diabetes mellitus timber robber insulin use: with timber robber use Qualified Code(s): E11.65 - Type 2 diabetes mellitus with hyperglycemia; Z79.4 - [facility] (current) use of insulin (4) Osteoporosis: Code(s): M81.0 - Age-related osteoporosis without current pathological fracture Category: Medical Qualifiers: Osteoporosis type: unspecified Presence of current pathological fracture: without current pathological fracture Qualified Code(s): M81.0 - Age- related osteoporosis without current pathological fracture (5) Polycythemia: Comment: sees Dr Butcher Code(s): D75.1 - Secondary polycythemia Category: Medical (6) Sjogrens syndrome: Code(s): M35.00 - Sjogren syndrome, unspecified Category: Medical Qualifiers: Sjogren organ or system involvement: unspecified organ involvement Qualified Code(s): M35.00 - Sjogren syndrome, unspecified Plan 64 year old for hospital follow up Hospital course reviewed. labs imaging. meds reconciled Continue to improve from respiratory standpoint since hospitalization She has uti symptoms unable to produce sample. Cephalexin ordered. Fluconazole ordered Needs A1C but will do in one month Has upcoming pulmonary visit. Needs more frequen visits with them. Hypersomnolence. Recommend sleep study in lab though she is already using cpap Dysphagia-referral back to gastro. MBS ordered Orders: Orders FL Modified Barium Swallow Today R13.10 - Dysphagia, unspecified Hemoglobin A1c Today E11.65 - Type 2 diabetes mellitus with hyperglycemia, G47.10 - Hypersomnia, unspecified, Z79.4 - plaster helper (current) use of insulin RT PSG in-lab sleep study Today E11.65 - Type 2 diabetes mellitus with hyperglycemia, G47.10 - Hypersomnia, unspecified, Z79.4 - plaster helper (current) use of insulin Referrals Gastroenterology Referral R13.10 - Dysphagia, unspecified Medications: New cephalexin 500 mg PO QID 28 caps 0RF fluconazole 150 mg PO DAILY 7 tabs 0RF Dexcom G7 Sensor (blood-glucose sensor) every 15 days 6 ea 3RF NS E11.65 - Type 2 diabetes mellitus with hyperglycemia, Z79.4 - plaster helper (current) use of insulin Dexcom G7 Emergency Detail Driver (blood-glucose,statistical methods professor,cont) As directed 1 ea 0RF NS E11.65 - Type 2 diabetes mellitus with hyperglycemia, Z79.4 - [facility] (current) use of insulin ondansetron 4 mg PO Q8H PRN 30 tabs 1RF nausea and vomiting R11.0 - Nausea meclizine 25 mg PO TID PRN 90 tabs 0RF vertigo amlodipine 10 mg PO DAILY@0030 90 tabs 3RF
[2024-08-09 10:02] VITALS: BP 134/64; PULSE 101; RESP 16; TEMP 36.9; O2SAT 84
--- OUTSIDE RECORDS SUMMARY | 2024-08-09 10:44 | XMS_ITS | Encounter Summary ---
Author Organization [facility] Address [address] [place] [address] Care Team Providers Care Grooming Assistant Name Role Phone Dottie Douglass MD Primary Care Provider [phone] Encounter Details Date Type Department Care Team (Late st Contact Info) Description 01/02/2018 Scanned Document [facility] Plastic & Reconstructive Surgery [place] [address] [facility] [address] [place] [address] Nito Epperson MD [address] [facility] [address] [place] [address] Social History Tobacco Use Types Packs/Day Years [...] on filedocumented in this encounter Care Teams Grooming Assistant Relationship Specialty Start Date End Date Dottie Douglass MD PCP - General Internal Medicine 08/04/17 documented as of this encounter
== END 2024-08-09 10:30 | disposition home or self-care (01) ==
LOC: HO.HMCFM 09:52
PROVIDERS: PCP Internal Medicine; Visit Provider Internal Medicine
DX: E11.65 Type 2 diabetes mellitus with hyperglycemia (principal); M81.0 Age-related osteoporosis without current pathological fracture; D75.1 Secondary polycythemia; Z79.4 Long term (current) use of insulin; Z09 Encounter for follow-up examination after completed treatment for conditions other than malignant neoplasm; Z79.891 Long term (current) use of opiate analgesic; M35.00 Sjogren syndrome, unspecified

== ENCOUNTER 2024-08-30 15:25 | Outpatient (REF) | payer OTHER, SELFPAY ==
--- OUTSIDE RECORDS SUMMARY | 2024-08-30 16:36 | XMS_ITS | Patient Health Record ---
Author Organization [facility] Address [address] [place] [address] Care Team Providers Care Service Department Manager Name Role Phone MAYI GASPAR MD Primary [...] 5 MG 1 tablet as needed Orally TID; Duration: 30 days 03/14/2019 Unknown metFORMIN HCl ER [...] 1 tablet with food Orally Once a day; Duration: 30 day(s) Active Pantoprazole Sodium 40 MG 1 tablet Orally Once a day Active Morphine Sulfate ER 30 MG 1 tablet Orally every 12 hrs; Duration: 30 days 06/28/2020 Active Hyoscyamine prn Active oxyCODONE HCl 10 MG 1 tablet Orally BID; Duration: 30 days 06/28/2020 Active Gabapentin 300 MG 1 capsule Orally Once a day; Duration: 30 day(s) Active Meclizine HCl 25 MG [...] Risk Notes Problem Lumbosacral spondylosis without myelopathy (44781050) Spondylosis without myelopathy or radiculopathy, lumbar region (M47.816) Active confirmed Problem longterm (current) use of opiate analgesic (Z79.891) Active confirmed Plan Of Treatment Pending Test Test Name Order Date COCAINE QUANTITATIVE 05/07/2022 OXYCODONE QUANTITATIVE 05/07/2022 BARBITURATES QUANTITATIVE 05/07/2022 METHADONE QUANTITATIVE 05/07/2022 MDMA (ECSTASY) QUANTITATIVE 05/07/2022 TRAMADOL QUANTITATIVE 05/07/2022 FENTANYL QUANTITATIVE 05/07/2022 BUPRENORPHINE QUANTITATIVE 05/07/2022 BENZODIAZEPINE QUANTITATIVE 05/07/2022 OPIATES QUANTITATIVE 05/07/2022 MUSCLE RELAXANT, QUANTITATIVE 05/07/2022 Amphetamine 05/07/2022 LAB REPORT 05/07/2022 BOUNTIFUL DRUG PANEL,UR 05/07/2022 Insurance Providers Payer Name Payer Address Payer Phone Subscriber Number Group Number Insured Name Patient Relationship to Insured Coverage Start Date Coverage End Date [facility] [address] [place] [address] [id number] BRITNEY Keane Spouse - patient is the [...]
--- OUTSIDE RECORDS SUMMARY | 2024-08-30 16:36 | XMS_ITS | Encounter Summary ---
Author Organization [facility] Address [address] [place] [address] Care Team Providers Care Coat Finisher Name Role Phone Dottie Douglass MD Primary Care Provider [phone] Encounter Details Date Type Department Care Team (Late st Contact Info) Description 01/02/2018 Scanned Document [facility] Plastic & Reconstructive Surgery [place] [address] [facility] [address] [place] [address] Nito Epperson MD [address] [facility] [address] [place] [address] Social History Tobacco Use Types Packs/Day Years [...] on filedocumented in this encounter Care Teams Coat Finisher Relationship Specialty Start Date End Date Dottie Douglass MD PCP - General Internal Medicine 08/04/17 documented as of this encounter
--- OUTSIDE RECORDS SUMMARY | 2024-08-30 16:37 | XMS_ITS | Clinical Summary ---
Author Organization [facility] Address [address] [place] [address] Care Team Providers Care Pocket Secretary Assembler Name Role Phone Dottie Douglass MD Primary Care Provider [phone] Allergies Active Allergy Reactions Criticality Noted Date [...] T PO BID 0 06/17/19 19 Active [employer].comTOUCH ULTRA CONTROL solution See admin instructions. 0 [...] Date Smoking Tobacco: Every Day Cigarettes 1 51.5 Started: 1972 Pipe Smokeless Tobacco: Never Comments:PIPE [...] 2023-2 5 season) 2023 Influenza Vaccine (#1) 2024 HPV Vaccines Aged Out No longer [...] complete this topic Insurance M[employer]AN Care Teams Pocket Secretary Assembler Relationship Specialty Start Date End Date Dottie Douglass MD [address] [address] PCP - General Internal Medicine 10/13/20
== END 2024-08-30 15:26 | disposition home or self-care (01) ==
LOC: HO.BBR 15:25
PROVIDERS: PCP Internal Medicine; Visit Provider Internal Medicine Medical Oncology
DX: D75.1 Secondary polycythemia (principal)
CPT/HCPCS: 85018; 99195

== ENCOUNTER 2024-08-31 14:28 | Outpatient (AMB) | payer OTHER, SELFPAY ==
[2024-08-31 14:31] VITALS: BP 130/62; PULSE 86; O2SAT 91
--- NOTE | 2024-08-31 14:31 | A.OFFVIS_ITS ---
Vital Signs 08/31/24 14:31 BP 130/62 Blood Pressure Location Rt brachial Position Sitting Pulse 86 Pulse Source Pulse Oximeter Pulse Oximetry (%) 91 L Oxygen Delivery Method Room Air Comment unable to do weight, wheelchair bound Intake Visit Reasons: COPD Allergies atorvastatin (From LIPITOR) Allergy (Severe, Verified 08/31/24 14:39) Difficulty Breathing azithromycin (AZITHROMYCIN) Allergy (Severe, Verified 08/31/24 14:39) Difficulty Breathing mite-Dermatophagoides farinae, vicente (dust mite - [place]) Allergy (Severe, Verified 08/31/24 14:39) Difficulty Breathing sumatriptan (From IMITREX) Allergy (Severe, Verified 08/31/24 14:39) Difficulty Breathing house dust Allergy (Mild, Verified 08/31/24 14:39) Unknown acetaminophen (From TYLENOL) Allergy (Unknown, Verified 08/31/24 14:39) Itching adhesive tape (ADHESIVE TAPE) Allergy (Unknown, Verified 08/31/24 14:39) Rash gentamicin (GENTAMICIN) Allergy (Unknown, Verified 08/31/24 14:39) Rash adalimumab (From Humira) Allergy (Verified 08/31/24 14:39) Rash erythromycin base Allergy (Verified 08/31/24 14:39) Unknown haloperidol (From HALDOL) Adverse Reaction (Unknown, Verified 08/31/24 14:39) GI Issues ketorolac (From TORADOL) Adverse Reaction (Unknown, Verified 08/31/24 14:39) Muscle cramps prasterone (DHEA) (From DHEA) Adverse Reaction (Unknown, Verified 08/31/24 14:39) Cardiac issues varenicline (From CHANTIX) Adverse Reaction (Unknown, Verified 08/31/24 14:39) Seizure ipratropium (From Atrovent) Adverse Reaction (Verified 08/31/24 14:39) Migraine HPI HPI COPD: Details: 64-year-old lady, active approximately 40 pack-year smoker, with underlying Sjogren, rheumatoid arthritis, erythrocytosis referred for pulmonary evaluation and perioperative risk assessment for endoscopy. Patient states that she has been having chronic bronchitis symptomatic with cough productive of clear sputum. She has been using albuterol MDI with reasonable control her symptoms. She does have underlying TENISHA and her CPAP is unfortunately very old and does not function well. Patient also complain of lower extremity edema. She has enlarged mediastinal/hilar lymph nodes, but under 2 cm. After the last office visit patient has ran out of Anoro. She did complete her pulmonary function test that showed significant obstructive physiology though is not completely accurate secondary to patient inability to maintain full 6 sec exhalation. Patient is not able to tolerate home sleep study, but she is interested in proceeding with in-lab study. She has been using supplemental ox ygen 2 L continuous flow. [facility] Medical History Tobacco dependence due to cigarettes Diabetes mellitus with hyperglycemia Chronic pain syndrome superintendent terminal (current) use of opiate analgesic Osteoporosis Sjogrens syndrome Rheumatoid arthritis Osteoarthritis Chronic, continuous use of opioids GERD (gastroesophageal reflux disease) Hx of difficult intubation Smoker COPD (chronic obstructive pulmonary disease) Asthma Polycythemia Boils Eczema Bursitis Disc degeneration Sleep apnea Diabetes Fibromyalgia Surgical History History of esophagogastroduodenoscopy (EGD) Hx of tonsillectomy History of surgical removal of pilonidal cyst Hx of plastic surgery Hx of hysterectomy Hx of cholecystectomy Hx of appendectomy History of colonoscopy History of bladder suspension procedure History of removal of cyst Family History Mother Polycythemia TIA (transient ischemic attack) Father Heart attack Other No family history of cancer Social History Household Members: Spouse Housing: House Are you a primary health care facilities inspector to a significant other at home: No Do you presently have visiting nurse or other home services: No Alcohol intake: never Patient Tobacco Use Status: Current everyday Tobacco user Tobacco use type: Cigarette Cigarette Packs Per Day: 0.5 Cigarettes Per Day: 10.0 Years Smoked: 46 e-Cigarette/Vaping Use: Never Used Second Hand Smoke Exposure: No Advance Directives Date on File: 12/24/19 service: No Current occupational status: retired 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 Cognitive needs: No Hearing needs: No Vision needs: No Review of Systems Const Denies daytime sleepiness, Denies excessive sweating, Denies fatigue, Denies fever(s), Denies lethargy, Denies malaise, Denies night sweats, Denies snoring and Denies weight loss Eyes Denies blurry vision and Denies itchy eyes ENT Denies nasal congestion, Denies post nasal drip, Denies sinus pain, Denies sinus pressure and Denies other ( Thrush) Card Denies chest pain, Denies pedal edema, Reports dyspnea, Reports dyspnea on exertion, Denies orthopnea and Denies paroxysmal nocturnal dyspnea Resp Denies cough, Denies hemoptysis, Denies excessive phlegm production, Reports dyspnea, Reports dyspnea on exertion, Denies snoring and Denies wheezing GI Denies abdominal pain and Denies heartburn Musc Denies myalgias, Denies arthralgias and Denies joint swelling Skin/Breast Denies rash Neuro Denies memory loss and Denies seizure-like activity Psych Denies abnormal sleep pattern, Denies anxiety and Denies memory loss Endo Denies excessive sweating, Denies fatigue and Denies heat intolerance Dwain/Lymph Denies easy bruising Aller/Immun Denies itchy eyes, Denies seasonal rhinorrhea and Denies wheezing Physical Exam Vital Signs: Last Vital Signs Pulse 86 08/31/24 14:31 BP 130/62 08/31/24 14:31 Pulse Ox 91 L 08/31/24 14:31 Oxygen Delivery Method Room Air 08/31/24 14:31 Const General: no acute distress and alert Nutritional Appearance: obese Orientation/consciousness: Other orientation findings ( oriented) HEENT Head: Yes atraumatic Eyes General: appearance normal, both eyes and all related structures Sclerae: sclerae normal EOM: EOMs intact bilaterally Neck Neck: Yes supple Lymphatic: no lymphadenopathy noted Resp Effort & Inspection: normal respiratory effort and no use of accessory muscles Auscultation: clear to auscultation bilaterally Cardio Rate: regular rate Rhythm: regular rhythm Heart sounds: no gallops, no murmurs and no rubs Skin General skin exam: other ( warm) Extrem General: No clubbing, No cyanosis and Yes edema (Left lower extremity) Assessment & Plan Assessment & Plan (1) Emphysema lung: Code(s): J43.9 - Emphysema, unspecified Category: Medical Qualifiers: Emphysema type: unspecified Qualified Code(s): J43.9 - Emphysema, unspecified Plan: Suboptimal control as patient has ran out of her inhaled bronchodilators. Restart Stiolto. Continue albuterol MDI. Results of pulmonary function test reviewed. (2) TENISHA (obstructive sleep apnea): Code(s): G47.33 - Obstructive sleep apnea (adult) (pediatric) Category: Medical Plan: Unable to tolerate home sleep study, will proceed with in-lab study. (3) Personal history of nicotine dependence: Code(s): Z87.891 - Personal history of nicotine dependence Category: Medical Plan: Continue with lung cancer screening. (4) Supplemental oxygen dependent: Code(s): Z99.81 - Dependence on supplemental oxygen Category: Medical Plan: Continue supplemental oxygen to maintain O2 saturation above 88%. Orders: Orders RT PSG in-lab sleep study Today G47.33 - Obstructive sleep apnea (adult) (pediatric) Referrals Lung Cancer Screening Referral Z87.891 - Personal history of nicotine dependence Medications: New tiotropium-olodaterol 2.5-2.5 mcg/actuation (Stiolto Respimat) 2 puffs inhalation DAILY 4 grams 6RF Coding Level of Care Code Est Pt Level 4 (58548) Complex EM visit Add On G2211 Diagnoses Pulmonary emphysema, unspecified emphysema type J43.9 Emphysema type: unspecified TENISHA (obstructive sleep apnea) G47.33 Personal history of nicotine dependence Z87.891 Supplemental oxygen dependent Z99.81
--- OUTSIDE RECORDS SUMMARY | 2024-08-31 15:46 | XMS_ITS | Clinical Summary ---
Author Organization [facility] Address [address] [place] [address] Care Team Providers Care Director Translation Name Role Phone Dottie Douglass MD Primary Care Provider [phone] Allergies Active Allergy Reactions Criticality Noted Date [...] T PO BID 0 06/17/19 19 Active [employer] obratnyh zadachTOUCH ULTRA CONTROL solution See admin instructions. 0 [...] complete this topic Insurance MULTIPLAN Care Teams Director Translation Relationship Specialty Start Date End Date Dottie Douglass MD [address] [address] PCP - General Internal Medicine 10/13/20
--- OUTSIDE RECORDS SUMMARY | 2024-08-31 15:46 | XMS_ITS | Encounter Summary ---
Author Organization [facility] Address [address] [place] [address] Care Team Providers Care Aerologist Name Role Phone Dottie Douglass MD Primary Care Provider [phone] Encounter Details Date Type Department Care Team (Late st Contact Info) Description 01/02/2018 Scanned Document [facility] [place] [address] [facility] [address] [place] [address] Nito Epperson MD [address] [place] [address] [address] [place] [address] Social History Tobacco Use Types Packs/Day Years [...] on filedocumented in this encounter Care Teams Aerologist Relationship Specialty Start Date End Date Dottie Douglass MD PCP - General Internal Medicine 08/04/17 documented as of this encounter
--- OUTSIDE RECORDS SUMMARY | 2024-08-31 15:46 | XMS_ITS | Patient Health Record ---
Author Organization [facility] Address [address] [place] [address] Care Team Providers Care Heavy Mobile Equipment Repairer Name Role Phone MAYI GASPAR MD Primary [...] Problem Status W/U Status Risk Notes Problem Spondylosis without myelopathy or radiculopathy, lumbar region (M47.816) Active confirmed Problem High risk drug monitoring status (636547716) care home (current) use of opiate analgesic (Z79.891) Active confirmed Plan Of Treatment Pending Test Test Name Order Date COCAINE QUANTITATIVE 05/07/2022 OXYCODONE QUANTITATIVE 05/07/2022 BARBITURATES QUANTITATIVE 05/07/2022 METHADONE QUANTITATIVE 05/07/2022 MDMA (ECSTASY) QUANTITATIVE 05/07/2022 TRAMADOL QUANTITATIVE 05/07/2022 FENTANYL QUANTITATIVE 05/07/2022 BUPRENORPHINE QUANTITATIVE 05/07/2022 BENZODIAZEPINE QUANTITATIVE 05/07/2022 OPIATES QUANTITATIVE 05/07/2022 MUSCLE RELAXANT, QUANTITATIVE 05/07/2022 Amphetamine 05/07/2022 LAB REPORT 05/07/2022 [facility]MAN DRUG PANEL,UR 05/07/2022 Insurance Providers Payer Name Payer Address Payer Phone Subscriber Number Group Number Insured Name Patient Relationship to Insured Coverage Start Date Coverage End Date [facility] [employer] [address] [place] [address] [id number] BRITNEY Keane Spouse - patient is the [...]
== END 2024-08-31 14:53 | disposition home or self-care (01) ==
LOC: HO.HPS 14:29
PROVIDERS: PCP Internal Medicine; Visit Provider Internal Medicine Pulmonary Disease
DX: J43.9 Emphysema, unspecified (principal); G47.33 Obstructive sleep apnea (adult) (pediatric); Z87.891 Personal history of nicotine dependence; Z99.81 Dependence on supplemental oxygen
CPT/HCPCS: 99214

== ENCOUNTER 2024-09-13 01:39 | Inpatient (IN) | payer OTHER, SELFPAY ==
[2024-09-13] VITALS (13 sets, daily range): BP systolic 111–177; BP diastolic 48–85; PULSE 75–90; RESP 14–22; TEMP 36.4–36.9; O2SAT 91–97; BMI 32.5; BMI 29.9
--- NOTE | 2024-09-13 | ECG_ITS ---
Test Reason : SOB Blood Pressure : */* mmHG Vent. Rate : 84 BPM Atrial Rate : 84 BPM P-R Int : 144 ms QRS Dur : 84 ms QT Int : 354 ms P-R-T Axes : 59 122 36 degrees QTcB Int : 418 ms Normal sinus rhythm Left posterior fascicular block Abnormal ECG When compared with ECG of 27-Jul-2024 03:16, Borderline criteria for Anterior infarct are no longer Present Referred By: Generic ED Physician Electronically Signed By: RA ROBERSON MD
--- NOTE | ~2024-09-13 | CT_ITS ---
EXAMINATION: CT PELVIS WITH IV CONTRAST HISTORY: Left leg edema, r/o iliac v. thrombosis or compression. COMPARISON: There are no prior studies for available comparison. TECHNIQUE: CT scan of the pelvis was performed following administration of 85 mL Omnipaque 350 using standard departmental protocol. Coronal and sagittal reformatted images were generated and reviewed. Oral contrast material was not administered at the request of the referring physician. This CT exam was performed with one or more of the following dose reduction techniques: automated exposure control, adjustment of the mA and/or kV according to patient size, use of iterative reconstruction technique. DLP: 788 mGy-cm FINDINGS: There is suboptimal opacification of the pelvic veins. However, the veins are normal in caliber without evidence of obvious filling defects. There is no significant pelvic vein compression. The urinary bladder is distended. The patient is status post hysterectomy. There is infiltration of the subcutaneous fat of the anterior abdominal wall inferior to the umbilicus which could represent cellulitis. There is a large amount of stool throughout the colon. There is osteoarthritis of both hips. CT/CT pelvis w IV con IMPRESSION: 1. Limited examination. No definite evidence of pelvic vein thrombosis. 2. Infiltration of the subcutaneous fat of the anterior abdominal wall below the umbilicus which could represent cellulitis. Clinical correlation is recommended. Electronically signed by: Sumanth Spear MD 09/13/2024 10:23 AM EDT
--- NOTE | ~2024-09-13 | XR_ITS ---
EXAMINATION: XR CHEST 1 VIEW HISTORY: follow up, hypoxia COMPARISON: Comparison is made with the prior examination dated 01/14/2025. FINDINGS: A single AP portable view of the chest performed at 10:23 AM is submitted. There is persistent opacification of the left lung base consistent with atelectasis, pneumonia, or pleural fluid. There is a new opacity at the right lung base compatible with atelectasis or pneumonia. There is no pleural effusion, pneumothorax, or pulmonary vascular congestion. The heart is normal in size. There is degenerative disc disease of the spine. The patient is status post right reverse total shoulder arthroplasty. XR/XR chest 1V IMPRESSION: 1. Persistent opacification of the left lung base consistent with atelectasis, pneumonia, and/or pleural fluid. 2. New airspace opacity at the right lung base consistent with atelectasis or pneumonia. Electronically signed by: Sumanth Spear MD 09/16/2024 10:37 AM EDT
--- NOTE | ~2024-09-13 | CT_ITS ---
EXAMINATION: CT CHEST ANGIOGRAPHY WITH IV CONTRAST INDICATION: Hypoxia, chest pain, swollen leg COMPARISON: Comparison is made with the prior examination dated 07/27/2024. TECHNIQUE: Helical CT scan of the chest was performed following administration of intravenous contrast (65 mL Omnipaque 350). The contrast bolus was timed to optimally opacify the pulmonary arteries. Thin sections were obtained through the pulmonary arteries. Coronal and sagittal reformatted images were generated. 3D/MIP reconstructed images are also obtained and reviewed. This CT exam was performed with one or more of the following dose reduction techniques: automated exposure control, adjustment of the mA and/or kV according to patient size, use of iterative reconstruction technique. DLP: 431 mGy-cm CHEST: THYROID: The thyroid gland is unremarkable. PULMONARY ARTERIES: No intraluminal filling defects are identified within the pulmonary arteries to suggest pulmonary emboli. There is dilatation of the main pulmonary artery consistent with pulmonary arterial hypertension. LUNGS: Again seen is upper lobe emphysema and fibrotic change. There is opacification of multiple right lower lobe bronchi. There is subsegmental atelectasis in the right lower lobe. There is occlusion of the left lower lobe bronchus with complete atelectasis. MEDIASTINUM: Again seen are enlarged AP window lymph nodes measuring up to 2.8 x 1.3 cm. There is prominence of paratracheal lymph nodes which are not well evaluated due to streak artifact from dense contrast in the superior vena cava. NJ: Enlarged bilateral hilar lymph nodes are 5 measuring up to 2.1 cm on the right and 1.7 cm on the left. CARDIOVASCULATURE: The heart is enlarged. There is no pericardial effusion. The thoracic aorta is normal in caliber. DEGREE OF CORONARY CALCIFICATION: mild PLEURA: There is no pleural effusion. No pneumothorax. MAIN AIRWAYS: The mainstem bronchi and proximal branches are patent. AXILLA: There is no axillary lymphadenopathy. UPPER ABDOMEN: The liver appears enlarged. The spleen is also enlarged. There is thickening of the adrenals. BONES AND SOFT TISSUES: Unremarkable. CT/CT angio chest PE protocol IMPRESSION: 1. No evidence of pulmonary emboli. Findings consistent with pulmonary arterial hypertension without change. 2. Occlusion of the left lower lobe bronchus with complete atelectasis of the left lower lobe. Further evaluation with bronchoscopy should be considered. 3. Opacification of multiple right lower lobe bronchi and subsegmental atelectasis. Emphysema and bilateral upper lobe fibrosis. 4. Mediastinal and bilateral hilar lymphadenopathy. 5. Hepatosplenomegaly. Electronically signed by: Sumanth Spear MD 09/13/2024 10:02 AM EDT
--- NOTE | ~2024-09-13 | XR_ITS ---
CLINICAL HISTORY: SOB 1 view chest x-ray Comparison: Chest x-ray from 07/27/2024 Findings: Bilateral pulmonary opacities are nonspecific and may reflect bibasilar atelectasis of the pneumonitis. Mild edema or superimposed edema also considered. Emphysematous changes noted. Small left pleural effusion. No pneumothorax. Cardiomegaly redemonstrated. Right shoulder reverse arthroplasty hardware again noted. Chronic appearing deformities are redemonstrated in the imaged left shoulder. IMPRESSION: Mild bilateral pulmonary opacities nonspecific and may reflect pneumonitis. This document has been electronically signed by: Jaime Kolb MD on 09/13/2024 02:42:18
--- OUTSIDE RECORDS SUMMARY | 2024-09-13 01:59 | XMS_ITS | Clinical Summary ---
Author Organization [facility] Address [address] [place] [address] Care Team Providers Care Concrete Swimming Pool Installer Name Role Phone Dottie Douglass MD Primary Care Provider [phone] Allergies Active Allergy Reactions Criticality Noted Date [...] T PO BID 0 06/17/19 19 Active [employer]ient EnergyTOUCH ULTRA CONTROL solution See admin instructions. 0 [...] Date Smoking Tobacco: Every Day Cigarettes 1 51.6 Started: 1972 Pipe Smokeless Tobacco: Never Comments:PIPE [...] complete this topic Insurance MULTIP[employer]AN Care Teams Concrete Swimming Pool Installer Relationship Specialty Start Date End Date Dottie Douglass MD [address] [address] PCP - General Internal Medicine 10/13/20
--- OUTSIDE RECORDS SUMMARY | 2024-09-13 01:59 | XMS_ITS | Patient Health Record ---
Author Organization [facility] Address [address] [place] [address] Care Team Providers Care Unit Control Worker Name Role Phone MAYI GASPAR MD Primary [...] Risk Notes Problem Lumbosacral spondylosis without myelopathy ([id number]) Spondylosis without myelopathy or radiculopathy, lumbar region (M47.816) Active confirmed Problem care home (current) use of opiate analgesic (Z79.891) Active confirmed Plan Of Treatment Pending Test Test Name Order Date COCAINE QUANTITATIVE 05/07/2022 OXYCODONE QUANTITATIVE 05/07/2022 BARBITURATES QUANTITATIVE 05/07/2022 METHADONE QUANTITATIVE 05/07/2022 MDMA (ECSTASY) QUANTITATIVE 05/07/2022 TRAMADOL QUANTITATIVE 05/07/2022 FENTANYL QUANTITATIVE 05/07/2022 BUPRENORPHINE QUANTITATIVE 05/07/2022 BENZODIAZEPINE QUANTITATIVE 05/07/2022 OPIATES QUANTITATIVE 05/07/2022 MUSCLE RELAXANT, QUANTITATIVE 05/07/2022 Amphetamine 05/07/2022 LAB REPORT 05/07/2022 OSTEEN DRUG PANEL,UR 05/07/2022 Insurance Providers Payer Name Payer Address Payer Phone Subscriber Number Group Number Insured Name Patient Relationship to Insured Coverage Start Date Coverage End Date [facility] [address] [place] [address] [id number] BRITNEY Keane Spouse - patient is the [...]
[2024-09-13 02:29] LABS: INTERNATIONAL NORM RATIO 1.3 (0.9-1.1); Prothrombin Time 15.1 SEC (10.9-12.4)
[2024-09-13 02:30] LABS: Alanine Aminotransferase 15 U/L (0-31); Albumin Level 3.6 g/dL (3.5-5.0); Alkaline Phosphatase 82 U/L (39-117); Anion Gap 14 (12-20); Aspartate Amino Transferase 24 U/L (5-31); Blood Urea Nitrogen 14 mg/dL (9-16); Calcium 8.7 mg/dL (8.4-10.2); Carbon Dioxide 29 mmol/L (22-29); Chloride 96 mmol/L (96-108); Creatinine Clr Calc Pharmacy 134.0; Estimated Glomerular Filt Rate > 60; Magnesium 1.6 mg/dL (1.6-2.6); Potassium 4.8 mmol/L (3.3-5.1); Sodium 134 mmol/L (135-145); Total Protein 6.6 g/dL (6.5-8.0)
--- NOTE | 2024-09-13 02:34 | ED.CHESTPAIN ---
HPI - Chest Pain General Chief Complaint: Chest Pain Stated Complaint: CP & diff breathing x 1 week Time Seen by Provider: 09/13/24 02:34 Source: patient, family, EMS, RN notes reviewed and old records reviewed Mode of arrival: EMS Limitations: no limitations History of Present Illness ED Provider: Dr. Huyen Hill HPI narrative: 64-year-old female with extensive past medical history including oxygen-dependent COPD, diabetes, Sjogren's disease and fibromyalgia and chronic opioid treatment coming in with chest pain and shortness of breath ongoing for the last 7 days, worsening over the last 24 hours. Reports that she has been dealing with worsening COPD exacerbations for at least 9 months now. Describes requiring oxygen even while resting at this point. Admits that she previously only needed oxygen when she was up moving around throughout the house however, noticed about a week ago that she was needing oxygen to ?keep up her levels? even while sitting in her chair watching television. [place] had some substernal chest pain, nonradiating, described as an aching sensation which is why she came to the hospital for evaluation. Her cough is productive of clear sputum and is chronic in nature. States that ?my cough is due to Sjogren's and my COPD?. No reported fever. No known sick contacts or travel. Denies changes in her chronic lower extremity swelling where the left leg is much larger than the right leg. She has been diagnosed with lymphedema in that left leg. No nausea or vomiting. No abdominal pain, bowel changes or urinary complaints. Related Data Home Medications ?Medication ?Instructions ?Recorded ?Confirmed aspirin 325 mg tablet 325 mg PO BID@0030,1230 09/27/20 07/27/24 loratadine 10 mg tablet 10 mg PO 1230 PRN ALLERGIES 09/27/20 07/27/24 hyoscyamine sulfate 0.125 mg tablet 0.125 mg PO DAILY PRN GI 07/03/23 07/27/24 cholecalciferol (vitamin D3) 50 50 mcg PO DAILY@0030 07/27/24 07/27/24 mcg (2,000 unit) capsule (Vitamin D3) diclofenac sodium 75 mg 75 mg PO DAILY PRN Pain 07/27/24 07/27/24 tablet,delayed release ferrous sulfate 325 mg (65 mg 325 mg PO DAILY@1230 07/27/24 07/27/24 iron) tablet hydroxychloroquine 200 mg tablet 200 mg PO DAILY@2907/27/24 07/27/24 insulin glargine 100 unit/mL 40 unit subcut BEDTIME@2907/27/24 07/27/24 subcutaneous solution (Lantus U-100 Insulin) insulin lispro 100 unit/mL 30 unit subcut TIDAC 07/27/24 07/27/24 subcutaneous pen (Humalog KwikPen (U-100) Insulin) linaclotide 145 mcg capsule 145 mcg PO DAILY@122907/27/24 07/27/24 losartan 25 mg tablet 25 mg PO DAILY@2907/27/24 07/27/24 magnesium oxide 400 mg (241.3 mg 400 mg PO BID@29,122907/27/24 07/27/24 magnesium) tablet metformin 1,000 mg tablet 1,000 mg PO BID@29,122907/27/24 07/27/24 multivitamin 1 tab PO DAILY@122907/27/24 07/27/24 mupirocin 2 % topical ointment 1 appl topical DAILY PRN AFFECTED 07/27/24 07/27/24 AREA pramipexole 0.25 mg tablet 0.25 mg PO DAILY@122907/27/24 07/27/24 pramipexole 0.25 mg tablet 0.5 mg PO BEDTIME@2907/27/24 07/27/24 pregabalin 75 mg capsule (Lyrica) 75 mg PO BID@29,122907/27/24 07/27/24 Previous Rx's ?Medication ?Instructions ?Recorded blood-glucose meter #1 ea 08/25/23 cyclobenzaprine 5 mg tablet 5 mg PO BID PRN Pain 90 days #180 10/29/23 tabs FreeStyle Mag 3 Plus Sensor #6 ea 12/16/23 (blood-glucose sensor) FreeStyle Mag 3 [place] #1 ea 12/16/23 (blood-glucose,primary education professor,cont) Oxygen Home Use #1 ea 04/16/24 fdzcbdq-vbxfolejqv-LNA-caffeine 30 1 cap PO QID PRN headache 28 days 07/26/24 mg-50 mg-325 mg-40 mg capsule #28 caps furosemide 20 mg tablet 20 mg PO Q OTHER DAY PRN edema #30 07/30/24 tabs nystatin 100,000 unit/gram topical 1 appl topical TID #30 grams 07/30/24 powder (Nyamy) nystatin 100,000 unit/mL oral 400,000 unit (4 mL) buccal QID 07/30/24 suspension #250 mL Dexcom G7 Cyber Intelligence Analyst #1 ea 08/09/24 (blood-glucose,primary education professor,cont) Dexcom G7 Sensor (blood-glucose #6 ea 08/09/24 sensor) amlodipine 10 mg tablet 10 mg PO DAILY@0030 #90 tabs 08/09/24 fluconazole 150 mg tablet 150 mg PO DAILY #7 tabs 08/09/24 meclizine 25 mg tablet 25 mg PO TID PRN vertigo #90 tabs 08/09/24 ondansetron 4 mg disintegrating 4 mg PO Q8H PRN nausea and 08/09/24 tablet vomiting #30 tabs montelukast 10 mg tablet 10 mg PO QPM #90 tabs 08/30/24 morphine 30 mg tablet,extended 30 mg PO BID@0030,1230 28 days #56 08/30/24 release tabs oxycodone 10 mg tablet 10 mg PO QID PRN pain 28 days #112 08/30/24 tabs pantoprazole 40 mg tablet,delayed 40 mg PO DAILY 90 days #90 tabs 08/30/24 release tiotropium 2.5 mcg-olodaterol 2.5 2 puff inhalation DAILY #4 grams 08/31/24 mcg/actuation mist for inhalation (Stiolto Respimat) Allergies Allergy/AdvReac Type Severity Reaction Status Date / Time atorvastatin (From LIPITOR) Allergy Severe Difficulty Verified 09/13/24 01:49 Breathing azithromycin (AZITHROMYCIN) Allergy Severe Difficulty Verified 09/13/24 01:49 Breathing mite-Dermatophagoides Allergy Severe Difficulty Verified 09/13/24 01:49 farinae, vicente (dust mite - Breathing [place]) sumatriptan (From IMITREX) Allergy Severe Difficulty Verified 09/13/24 01:49 Breathing house dust Allergy Mild Unknown Verified 09/13/24 01:49 acetaminophen (From TYLENOL) Allergy Unknown Itching Verified 09/13/24 01:49 adhesive tape (ADHESIVE TAPE) Allergy Unknown Rash Verified 09/13/24 01:49 gentamicin (GENTAMICIN) Allergy Unknown Rash Verified 09/13/24 01:49 adalimumab (From Humira) Allergy Rash Verified 09/13/24 01:49 erythromycin base Allergy Unknown Verified 09/13/24 01:49 haloperidol (From HALDOL) AdvReac Unknown GI Issues Verified 09/13/24 01:49 ketorolac (From TORADOL) AdvReac Unknown Muscle Verified 09/13/24 01:49 cramps prasterone (DHEA) (From DHEA) AdvReac Unknown Cardiac Verified 09/13/24 01:49 issues varenicline (From CHANTIX) AdvReac Unknown Seizure Verified 09/13/24 01:49 ipratropium (From Atrovent) AdvReac Migraine Verified 09/13/24 01:49 Review of Systems Review of Systems: as per HPI, full review of systems performed and negative but for the above mentioned pertinent positives and negatives. [facility] Past Medical History Source: old records reviewed Medical History Tobacco dependence due to cigarettes Diabetes mellitus with hyperglycemia Chronic pain syndrome correction (current) use of opiate analgesic Osteoporosis Sjogrens syndrome Rheumatoid arthritis Osteoarthritis Chronic, continuous use of opioids GERD (gastroesophageal reflux disease) Hx of difficult intubation Smoker COPD (chronic obstructive pulmonary disease) Asthma Polycythemia Boils Eczema Bursitis Disc degeneration Sleep apnea Diabetes Fibromyalgia Surgical History History of esophagogastroduodenoscopy (EGD) Hx of tonsillectomy History of surgical removal of pilonidal cyst Hx of plastic surgery Hx of hysterectomy Hx of cholecystectomy Hx of appendectomy History of colonoscopy History of bladder suspension procedure History of removal of cyst Family History Family History Mother Polycythemia TIA (transient ischemic attack) Father Heart attack Other No family history of cancer Social History Social History Household Members: Spouse Housing: House Are you a primary pediatric care coordinator to a significant other at home: No Do you presently have visiting nurse or other home services: No Alcohol intake: never Patient Tobacco Use Status: Current everyday Tobacco user Tobacco use type: Cigarette Cigarette Packs Per Day: 0.5 Cigarettes Per Day: 10.0 Years Smoked: 46 Smoked in Last 30 Days: Yes e-Cigarette/Vaping Use: Never Used Second Hand Smoke Exposure: No Use of substances other than those prescribed or required for medical reasons: No Advance Directives: Yes Advance Directives on File: Yes Advance Directives Date on File: 12/24/19 service: No Current occupational status: retired 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 Cognitive needs: No Hearing needs: No Vision needs: No Physical Exam Exam: Exam: GENERAL: Chronically ill-appearing, moderate respiratory distress. SKIN: Normal skin color for ethnicity, warm, dry, no rashes noted. HEENT: Normocephalic, atraumatic, no stridor, EOMI. NECK: Soft, supple, full ROM, midline structures nontender, no step-offs, no deformities, no lymphadenopathy. CHEST: Heart regular tachycardia, symmetric chest rise and fall. PULMONARY: Coarse lung sounds bilaterally, diminished at the bases, moderate respiratory distress with poor air movement, no wheezes. ABDOMINAL: Soft, protuberant nontender, quiet bowel sounds in all quadrants. : Deferred. MUSCULOSKELETAL: Normal tone, full range of motion, no deformities, 2+ peripheral edema L>>R. NEURO: Alert and oriented to person, CN II through XII intact, no focal neurologic deficits. PSYCHIATRIC: But affect, appropriate demeanor. Vital Signs: Vital Signs: Last Vital Signs Temp 98.5 F 09/13/24 01:47 Pulse 87 09/13/24 01:47 Resp 20 09/13/24 01:47 BP 114/48 L 09/13/24 04:48 Pulse Ox 91 L 09/13/24 01:47 O2 Del Method Nasal Cannula 09/13/24 01:47 Oxygen Flow Rate 4 09/13/24 01:47 BMI result Body Mass Index 32.5 Medications Administered Discontinued Medications Generic Name Dose Route Start Last Admin Trade Name Freq PRN Reason Stop Dose Admin Ceftriaxone Sodium 1 gm 09/13/24 03:32 09/13/24 03:51 Ceftriaxone Sodium 1 Gm Vial IVPUSH 09/13/24 03:33 1 gm ONCE ONE Administration Furosemide 40 mg 09/13/24 03:55 09/13/24 04:48 Furosemide 40 Mg/4 Ml Vial IVPUSH 09/13/24 03:56 40 mg ONCE ONE Administration Protocol Doxycycline Hyclate 100 mg/ 250 mls @ 166.67 mls/hr 09/13/24 03:32 09/13/24 03:51 Sodium Chloride IV 09/13/24 05:01 166.67 mls/hr ONCE ONE Administration Medical Decision Making Medical Decision Making [facility] [place] Narrative: Patient presents today with chief complaint of shortness of breath and chest pain. Differential diagnosis includes, but is not limited to, upper respiratory infection, pneumonia, COPD exacerbation, CHF, pneumothorax, pleural effusion, pulmonary embolism, ACS. Broad-based work-up will be initiated to evaluate for etiology of patient's symptoms. 3:27 AM 09/13/2024 (Dr. Huyen Hill, D.O.) informed of elevated lactic acid level and white blood cell count. We will treat as sepsis given her history of COPD and increased cough with sputum production. She is afebrile here in the emergency department with baseline oxygen levels. Blood pressure is stable. Holding off on additional fluid administration at this time as her blood pressure is normal and her lactic acid is only 2.1. She did receive 100 mL of normal saline from EMS prior to arrival. 5:52 AM 09/13/2024 (Dr. Huyen Hill, D.O.) patient continues to rest comfortably without any real change in her oxygen requirements. She is on 4 L nasal cannula with an oxygen level in the low 90s. I suspect that this is probably close to her baseline. That being said, she has an elevated BNP which could be related to new onset heart failure. She has never been diagnosed with heart failure in the past however, she does admit to me that she was diagnosed with cardiomyopathy and has an appointment with a funeral pre need consultant coming up in October. Initially her clinical picture was more consistent with a COPD exacerbation/sepsis so we treated her with Rocephin and doxycycline. At this point, I feel this is more of a COPD exacerbation with potential superimposed heart failure. She has been given a dose of Lasix. Blood pressures are low but stable. I suspect there may be a component of opioid use that is contributing to her lower blood pressures. She has no other evidence of sepsis. No fever, lactic acid level improved with only 100 cc of saline given by EMS. Differential Diagnosis Differential Diagnoses: The differential diagnosis associated with the presentation includes (As above) Admission/Observation Consideration of admission/observation: Escalation of care including admission/observation considered Consult Healthcare Provider Management of the patient was discussed with: Hospitalist Lab Data MDM Lab Attestation statement: I reviewed the patient's lab results. 09/13/24 02:37 09/13/24 02:07 Labs: Lab Results 09/13/24 09/13/24 09/13/24 Range/Units 02:07 02:09 02:10 WBC (4.8-10.8) X10*3/uL RBC (4.20-5.50) X10*6/uL Hgb (12.0-16.0) g/dl Hct (37.0-47.0) % MCV (80.0-98.0) fL MCH (27.0-33.0) pg MCHC (31.0-35.0) g/dl RDW (11.0-16.0) % Plt Count (160-400) X10*3/uL MPV (9.4-12.3) fL Absolute Nucleated RBC (0.0-0.012) X10*3/uL Nucleated RBC % (auto) (0.0-0.2) /100WBC PT 15.1 H (10.9-12.4) SEC INR 1.3 H (0.9-1.1) Sodium 134 L (135-145) mmol/L Potassium 4.8 (3.3-5.1) mmol/L Chloride 96 (96-108) mmol/L Carbon Dioxide 29 (22-29) mmol/L Anion Gap 14 (12-20) BUN 14 (9-16) mg/dL Creatinine 0.54 (0.5-1.4) mg/dL Estim Creat Clear Calc 134.0 Estimated GFR > 60 Random Glucose 265 H (60-115) mg/dL Lactic Acid 2.1 H* (0.5-2.0) mmol/L Lactic Acid F/U @ 2Hr (0.5-2.0) mmol/L Calcium 8.7 (8.4-10.2) mg/dL Magnesium 1.6 (1.6-2.6) mg/dL Total Bilirubin 0.4 (0.0-1.0) mg/dL AST 24 (5-31) U/L ALT 15 (0-31) U/L Alkaline Phosphatase 82 (39-117) U/L Troponin I High Sens 15.5 D (<3.5-17.0) ng/L B-Natriuretic Peptide 301 H (<100) pg/mL Total Protein 6.6 (6.5-8.0) g/dL Albumin 3.6 (3.5-5.0) g/dL Influenza Type A (PCR) NEGATIVE (Negative) Influenza Type B (PCR) NEGATIVE (Negative) RSV RNA Qual (PCR) NEGATIVE (Negative) SARS-CoV-2 RNA (RT-PCR) NEGATIVE (Negative) 09/13/24 09/13/24 09/13/24 Range/Units 02:37 04:38 05:04 WBC 14.7 H (4.8-10.8) X10*3/uL RBC 5.47 (4.20-5.50) X10*6/uL Hgb 14.4 (12.0-16.0) g/dl Hct 44.5 (37.0-47.0) % MCV 81.4 (80.0-98.0) fL MCH 26.3 L (27.0-33.0) pg MCHC 32.4 (31.0-35.0) g/dl RDW 16.3 H (11.0-16.0) % Plt Count 216 (160-400) X10*3/uL MPV 10.0 (9.4-12.3) fL Absolute Nucleated RBC 0.000 (0.0-0.012) X10*3/uL Nucleated RBC % (auto) 0.0 (0.0-0.2) /100WBC PT (10.9-12.4) SEC INR (0.9-1.1) Sodium (135-145) mmol/L Potassium (3.3-5.1) mmol/L Chloride (96-108) mmol/L Carbon Dioxide (22-29) mmol/L Anion Gap (12-20) BUN (9-16) mg/dL Creatinine (0.5-1.4) mg/dL Estim Creat Clear Calc Estimated GFR Random Glucose (60-115) mg/dL Lactic Acid (0.5-2.0) mmol/L Lactic Acid F/U @ 2Hr 1.7 (0.5-2.0) mmol/L Calcium (8.4-10.2) mg/dL Magnesium (1.6-2.6) mg/dL Total Bilirubin (0.0-1.0) mg/dL AST (5-31) U/L ALT (0-31) U/L Alkaline Phosphatase (39-117) U/L Troponin I High Sens 13.6 (<3.5-17.0) ng/L B-Natriuretic Peptide (<100) pg/mL Total Protein (6.5-8.0) g/dL Albumin (3.5-5.0) g/dL Influenza Type A (PCR) (Negative) Influenza Type B (PCR) (Negative) RSV RNA Qual (PCR) (Negative) SARS-CoV-2 RNA (RT-PCR) (Negative) Independent Interpretation I performed an independent interpretation of an: EKG Radiology Impression Discussion of test interpretation with radiology: I have reviewed the radiologist's reading. Radiologist Impression: 1 view chest x-ray Comparison: Chest x-ray from 07/27/2024 Findings: Bilateral pulmonary opacities are nonspecific and may reflect bibasilar atelectasis of the pneumonitis. Mild edema or superimposed edema also considered. Emphysematous changes noted. Small left pleural effusion. No pneumothorax. Cardiomegaly redemonstrated. Right shoulder reverse arthroplasty hardware again noted. Chronic appearing deformities are redemonstrated in the imaged left shoulder. IMPRESSION: Mild bilateral pulmonary opacities nonspecific and may reflect pneumonitis. This document has been electronically signed by: Jaime Kolb MD on 09/13/2024 02:42:18 External Record Review External record reviewed: Inpatient record Chronic Conditions Patient?s care impacted by: Diabetes and Other (COPD, fibromyalgia, Sjogren's) Discharge Plan Discharge Patient Disposition: Admitted As Inpatient Print Language: [place]
[2024-09-13 02:35] LABS: B Type Natriuretic Peptide 301 pg/mL (<100); Troponin-I High Sensitivity 15.5 ng/L (<3.5-17.0)
[2024-09-13 02:41] LABS: Hematocrit 44.5 % (37.0-47.0); Hemoglobin 14.4 g/dl (12.0-16.0); Mean Corpuscular HGB Conc 32.4 g/dl (31.0-35.0); Mean Corpuscular Hemoglobin 26.3 pg (27.0-33.0); Mean Corpuscular Volume 81.4 fL (80.0-98.0); NRBC Abs Auto 0.000 X10*3/uL (0.0-0.012); NRBC Pct Auto 0.0 /100WBC (0.0-0.2); Platelet Count 216 X10*3/uL (160-400); Red Blood Count 5.47 X10*6/uL (4.20-5.50); White Blood Count 14.7 X10*3/uL (4.8-10.8)
[2024-09-13 02:52] LABS: Resp Syncy Virus RNA Qual PCR NEGATIVE (Negative); SARS COV2 PCR INHOUSE NEGATIVE (Negative)
--- NOTE | 2024-09-13 03:10 | PC.NURSE ---
pt arrived via EMS at approximately 0140 for c/o chest pain X1 week with chronic cough and sob. Hx sjrogrens sx and COPD, O2 dependent on 4L nc SPO2 88-92%. Pt states that pain is 5/10 mid-sternal stabbing/poking pain in nature. Pt reports that cough is chronic and no change from baseline. SARS, Labs, BC x2, lactic and ekg completed. VSS, #20 IV L-AC by EMS, #20 R-forearm placed by t/w. 0240 lactic 2.1 notified, no new orders at that time. 0250 Report given to Khalida RENTERIA to assume care of patient.
[2024-09-13 04:18] LABS: Reflex Lactate? Lactic Acid Added
[2024-09-13] MEDS: Furosemide 40 MG/4 ML VIAL IVPUSH (04:48)
--- NOTE | 2024-09-13 04:54 | PC.NURSE ---
pt medicated according to mar with iv lasix bp 114/48 dr arrieta made aware prior to admin per md smith to give lasix. zinc furnace charger aware
[2024-09-13 04:58] LABS: ~Lactic Acid-LAB USE ONLY 1.7 mmol/L (0.5-2.0)
[2024-09-13 05:27] LABS: Troponin-I High Sensitivity 13.6 ng/L (<3.5-17.0)
--- NOTE | 2024-09-13 06:36 | P.HPHOSP_ITS ---
History of Present Illness Date of Service: 09/13/24 Attending physician on admission: Eusebio Esparza Chief Complaint: chest pain/SOB Patient is a 64-year-old female with a past medical history significant for oxygen-dependent COPD, insulin-dependent diabetes, Sjogren's, fibromyalgia, chronic opioid use, celiac disease, ulcerative colitis, Lin's esophagus, restless leg syndrome, TENISHA on CPAP, class 1 obesity, ?left leg lymphedema, and new diagnosis cardiomyopathy, who presented to the ED due to chest pain and shortness of breath worsening over the past 7 days, significantly worsening over the past 24 hours. The patient reports that she has had multiple COPD exacerbations since January. She usually uses oxygen with ambulation now requiring at rest. She also describes substernal chest pain and a productive cough with clear sputum. She denies any fever. She has had left lower extremity edema for the past few months significantly worse than right lower extremity, has had multiple negative DVT studies. Since arriving to the ED her chest pain has improved significantly. She has received 40 mg IV Lasix due to possible new CHF with significant urine output. She denies any dysuria, frequency or urgency of urination prior to the Lasix. Review of Systems 2 Constitutional: Constitutional: Denies body ache(s), Denies chills, Reports fatigue, Denies fever(s) and Denies headache(s) Eyes: Eyes: Denies change in vision ENT: Denies headache(s), Denies nasal congestion and Denies sore throat Cardiovascular: Cardiovascular: Reports chest pain, Denies rapid heart rate, Reports leg edema and Reports dyspnea Respiratory: Respiratory: Reports chest congestion, Reports cough, Reports dyspnea and Denies wheezing Gastrointestinal: Gastrointestinal: Denies abdominal pain, Denies nausea and Denies vomiting Genitourinary: Genitourinary: Denies difficulty voiding and Denies dysuria Musculoskeletal: Musculoskeletal: Denies myalgias Integumentary/Breasts: Skin/Breast: Denies rash Neurologic: Denies confusion and Denies headache(s) Psychiatric: Psychiatric: Denies confusion Endocrine: Endocrine: Reports fatigue Hematologic/Lymphatic: Hematologic/Lymphatic: Denies easy bleeding and Denies easy bruising Allergic/Immunologic: Allergic/Immunologic: Denies wheezing [facility] Medical History Tobacco dependence due to cigarettes Diabetes mellitus with hyperglycemia Chronic pain syndrome FPC (current) use of opiate analgesic Osteoporosis Sjogrens syndrome Rheumatoid arthritis Osteoarthritis Chronic, continuous use of opioids GERD (gastroesophageal reflux disease) Hx of difficult intubation Smoker COPD (chronic obstructive pulmonary disease) Asthma Polycythemia Boils Eczema Bursitis Disc degeneration Sleep apnea Diabetes Fibromyalgia Family History Mother Polycythemia TIA (transient ischemic attack) Father Heart attack Other No family history of cancer Surgical History History of esophagogastroduodenoscopy (EGD) Hx of tonsillectomy History of surgical removal of pilonidal cyst Hx of plastic surgery Hx of hysterectomy Hx of cholecystectomy Hx of appendectomy History of colonoscopy History of bladder suspension procedure History of removal of cyst Social History Household Members: Spouse Housing: House Are you a primary child care associate to a significant other at home: No Do you presently have visiting nurse or other home services: No Alcohol intake: never Patient Tobacco Use Status: Current everyday Tobacco user Tobacco use type: Cigarette Cigarette Packs Per Day: 0.5 Cigarettes Per Day: 10.0 Years Smoked: 46 Smoked in Last 30 Days: Yes e-Cigarette/Vaping Use: Never Used Second Hand Smoke Exposure: No Use of substances other than those prescribed or required for medical reasons: No Advance Directives: Yes Advance Directives on File: Yes Advance Directives Date on File: 12/24/19 Patient : No service: No Current occupational status: retired 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 Cognitive needs: No Hearing needs: No Vision needs: No Narrative: smoking 1/2 ppd, no etoh or drug use Meds Allergies Allergy/AdvReac Type Severity Reaction Status Date / Time atorvastatin (From LIPITOR) Allergy Severe Difficulty Verified 09/13/24 01:49 Breathing azithromycin (AZITHROMYCIN) Allergy Severe Difficulty Verified 09/13/24 01:49 Breathing mite-Dermatophagoides Allergy Severe Difficulty Verified 09/13/24 01:49 farinae, vicente (dust mite - Breathing [place]) sumatriptan (From IMITREX) Allergy Severe Difficulty Verified 09/13/24 01:49 Breathing house dust Allergy Mild Unknown Verified 09/13/24 01:49 acetaminophen (From TYLENOL) Allergy Unknown Itching Verified 09/13/24 01:49 adhesive tape (ADHESIVE TAPE) Allergy Unknown Rash Verified 09/13/24 01:49 gentamicin (GENTAMICIN) Allergy Unknown Rash Verified 09/13/24 01:49 adalimumab (From Humira) Allergy Rash Verified 09/13/24 01:49 erythromycin base Allergy Unknown Verified 09/13/24 01:49 haloperidol (From HALDOL) AdvReac Unknown GI Issues Verified 09/13/24 01:49 ketorolac (From TORADOL) AdvReac Unknown Muscle Verified 09/13/24 01:49 cramps prasterone (DHEA) (From DHEA) AdvReac Unknown Cardiac Verified 09/13/24 01:49 issues varenicline (From CHANTIX) AdvReac Unknown Seizure Verified 09/13/24 01:49 ipratropium (From Atrovent) AdvReac Migraine Verified 09/13/24 01:49 Active Medications: Current Medications Calcium Carbonate (Calcium Carbonate 750 Mg Tab.Chew) 750 mg PO Q4H PRN PRN Reason: Heartburn Dextrose (Dextrose 50 % 25 Gm/50 Ml Syringe) 25 gm IVPUSH Q15M PRN; Protocol PRN Reason: per Hypoglycemia Standing Ord. Enoxaparin Sodium (Enoxaparin Sodium 40 Mg/0.4 Ml Syringe) 40 mg SUBCUT Q24H [facility] Glucose (Glucose Gel 15 Gm Gel..Gram.) 15 gm PO Q15M PRN; Protocol PRN Reason: per Hypoglycemia Standing Ord. Insulin Human Lispro (Insulin Lispro 100 Unit/Ml 3 Ml Vial) 0 unit SUBCUT QIDACHS [facility]; Protocol Magnesium Hydroxide (Milk Of Magnesia 30 Ml Oral.Susp) 30 ml PO DAILY PRN PRN Reason: Constipation Sodium Chloride (0.9 % Sodium Chloride Flush 3 Ml Syringe) 3 ml IVFLUSH QSHIFT [facility] Home Medications ?Medication ?Instructions ?Recorded ?Confirmed ?Last Taken ?Type aspirin 325 mg tablet 325 mg PO BID@0030,1230 09/1707/27/24 07/27/24 00:30 History loratadine 10 mg tablet 10 mg PO 1230 PRN ALLERGIES 09/27/20 07/27/24 02/27/24 History hyoscyamine sulfate 0.125 mg tablet 0.125 mg PO DAILY PRN GI 07/03/23 07/27/24 02/27/24 History cholecalciferol (vitamin D3) 50 50 mcg PO DAILY@0030 0 07/27/24 07/27/24 07/27/24 00:30 History mcg (2,000 unit) capsule (Vitamin D3) diclofenac sodium 75 mg 75 mg PO DAILY PRN Pain 07/1807/27/24 Unknown History tablet,delayed release ferrous sulfate 325 mg (65 mg 325 mg PO DAILY@0 12/1107/27/24 07/26/24 12:30 History iron) tablet hydroxychloroquine 200 mg tablet 200 mg PO DAILY@0030 07/27/24 07/27/24 07/27/24 00:30 History insulin glargine 100 unit/mL 40 unit subcut BEDTIME@07/27/24 07/27/24 07/27/24 00:30 History subcutaneous solution (Lantus U-100 Insulin) insulin lispro 100 unit/mL 30 unit subcut TIDAC 07/27/24 07/27/24 00:30 History subcutaneous pen (Humalog KwikPen (U-100) Insulin) linaclotide 145 mcg capsule 145 mcg PO DAILY@0 07/1807/27/24 07/27/24 00:30 History losartan 25 mg tablet 25 mg PO DAILY@0 07/27/24 07/27/24 07/27/24 00:30 History magnesium oxide 400 mg (241.3 mg 400 mg PO BID@0,12 07/27/24 07/27/24 07/27/24 00:30 History magnesium) tablet metformin 1,000 mg tablet 1,000 mg PO BID@0030,1230 07/27/24 07/27/24 00:30 History multivitamin 1 tab PO DAILY@0 07/27/24 07/27/24 07/26/24 12:30 History mupirocin 2 % topical ointment 1 appl topical DAILY VT N AFFECTED 07/27/24 07/27/24 Unknown History AREA pramipexole 0.25 mg tablet 0.25 mg PO DAILY@0 07/2707/27/24 07/26/24 12:30 History pramipexole 0.25 mg tablet 0.5 mg PO BEDTIME@0030 06 007/27/24 07/27/24 00:30 History pregabalin 75 mg capsule (Lyrica) 75 mg PO BID@0030,12 30 07/27/24 07/27/24 07/27/24 00:30 History Physical Exam 2 Vital Signs and Narrative: Vital Signs: Last Vital Signs Temp 98.5 F 09/13/24 01:47 Pulse 87 09/13/24 01:47 Resp 20 09/13/24 01:47 BP 114/48 L 09/13/24 04:48 Pulse Ox 91 L 09/13/24 01:47 O2 Del Method Nasal Cannula 09/13/24 01:47 Oxygen Flow Rate 4 09/13/24 01:47 BMI result Body Mass Index 32.5 General: AOx3, no acute distress, seen with family member. pt is a poor historian. Resp: crackles bilaterally, no wheezing, no respiratory distress CVS: S1, S2, RRR GI: +BS, NT, no distention Skin: Warm, dry Neuro: Cranial nerves II-XII grossly intact bilaterally. Motor grossly intact bilaterally Extremities: significant edema LLE>RLE, pitting on left, no pitting on right. no pain with palpation of the calf. Psych: Appropriate affect Const: General: No confusion Orientation/consciousness: No confusion Neuro: General: No confusion Results Labs 09/13/24 02:37 09/13/24 02:07 Labs: Laboratory Results - last 24 hr 09/13/24 09/13/24 09/13/24 02:07 02:09 02:10 MCV MCH MCHC RDW Plt Count MPV Absolute Nucleated RBC Nucleated RBC % (auto) PT 15.1 H INR 1.3 H Anion Gap 14 Estim Creat Clear Calc 134.0 Estimated GFR > 60 Random Glucose 265 H Lactic Acid 2.1 H* Lactic Acid F/U @ 2Hr Calcium 8.7 Magnesium 1.6 Total Bilirubin 0.4 AST 24 ALT 15 Alkaline Phosphatase 82 B-Natriuretic Peptide 301 H Total Protein 6.6 Albumin 3.6 Influenza Type A (PCR) NEGATIVE Influenza Type B (PCR) NEGATIVE RSV RNA Qual (PCR) NEGATIVE SARS-CoV-2 RNA (RT-PCR) NEGATIVE 09/13/24 09/13/24 02:37 04:38 MCV 81.4 MCH 26.3 L MCHC 32.4 RDW 16.3 H Plt Count 216 MPV 10.0 Absolute Nucleated RBC 0.000 Nucleated RBC % (auto) 0.0 PT INR Anion Gap Estim Creat Clear Calc Estimated GFR Random Glucose Lactic Acid Lactic Acid F/U @ 2Hr 1.7 Calcium Magnesium Total Bilirubin AST ALT Alkaline Phosphatase B-Natriuretic Peptide Total Protein Albumin Influenza Type A (PCR) Influenza Type B (PCR) RSV RNA Qual (PCR) SARS-CoV-2 RNA (RT-PCR) Assessment and Plan (1) Acute and chronic respiratory failure with hypoxia: Status: Acute (2) Dyspnea on exertion: Status: Acute (3) Chest pain: Qualifiers: Chest pain type: other chest pain Qualified Code(s): R07.89 - Other chest pain Status: Acute (4) Edema of left lower extremity: Status: Acute (5) Pneumonia: Status: Acute (6) Class 1 obesity: Status: Acute (7) Tobacco use disorder: Status: Acute Plan Patient is a 64-year-old female with a past medical history significant for oxygen-dependent COPD, insulin-dependent diabetes, Sjogren's, fibromyalgia, chronic opioid use, celiac disease, ulcerative colitis, Lin's esophagus, restless leg syndrome, TENISHA on CPAP, class 1 obesity, ?left leg lymphedema, and new diagnosis cardiomyopathy, who presented to the ED due to chest pain and shortness of breath worsening over the past 7 days, significantly worsening over the past 24 hours. Acute on chronic hypoxic respiratory failure secondary to ?pneumonia vs acute COPD exacerbation vs PE with new onset CHF - WBC 14.7, vitals stable, lactic acid 2.1 (likely secondary to hypoxia and metformin), blood cultures x2 pending, no sepsis - BNP 301 - CXR with mild bilateral pulmonary opacities ?pneumonitis - COVID/flu/RSV negative - EKG normal - CTA chest/pelvis to r/o PE/VTE pending - started on ceftrixone and doxycycline in ED, continue pending further workup - given 40 mg IV Lasix in ED, significant urine output, assess need for further diuretics during day - no active wheezing on exam, has not received steroids, albuterol Q4H PRN wheezing - echo - monitor CBC and BMP acute lactic acidosis - likely secondary to hypoxia and metformin, improved from 2.1 to 1.7 on repeat LLE edema - multiple recent venous US LLE negative - check CTA chest/pelvis insulin dependent diabetes - sliding scale - diabetic diet/gluten free - lantus 28U QAM - hold metformin chronic opioids/chronic pain - continue home meds TENISHA - CPAP at bedtime class 1 obesity - BMI 32.5 - weight loss encouraged tobacco use disorder - nicotine patch and lozenge requested - smoking cessation discussed med rec pending full code VTE prophy: lovenox Pt with acute on chronic hypoxic respiratory failure secondary to possible pneumonia versus COPD exacerbation versus PNA, requiring admission for at least 2 midnight stay for further evaluation and monitoring. Quality Stroke Does the patient have a stroke diagnosis?: No VTE Prior VTE?: No VTE Risk Level:: Medical - moderate - high VTE Device Contraindication: Treatment Not Indicated VTE Drug Contraindication: N/A - Med Ordered
[2024-09-13 07:40] LABS: Glucose, Whole Blood 246 mg/dL (60-115)
[2024-09-13] MEDS: oxyCODONE HCl Immed Release 5 MG TABLET 10 MG PO ×3 (08:09→20:49)
[2024-09-13] MEDS: 0.9 % Sodium Chloride Flush 3 ML SYRINGE IVFLUSH (08:09)
[2024-09-13] MEDS: Nicotine 14 MG PATCH.TD24 TRANSDERMA (08:10)
[2024-09-13] MEDS: iohexoL 350 MG/ML 100 ML INFUS..BTL IV (09:52)
[2024-09-13] MEDS: Furosemide 20 MG/2 ML VIAL IVPUSH (10:05)
--- NOTE | 2024-09-13 10:21 | PHA.MEDREC ---
Addendum entered by Shaina Estrada RPh 09/13/24 10:38: Reviewed by [facility] Original Note: Pharmacy Consult ? Medication Reconciliation Pharmacy has completed the medication reconciliation. Spoke to patient to confirm med list. Patient had a list of all her medications with her. Patient states she is not on Furosemide at home, however they just started her on and IV drip of lasix in the ED. Patient confirmed Insulin Glargine 44 units daily and Insulin lispro is 30 units TID per sliding scale if patient eats anything, Lyrica is 75 mg BID. Patient takes all her medications at 12:30 am and 12:30 PM. Patient had all her morning medications today at 12:30 Am.
[2024-09-13 12:01] LABS: Glucose, Whole Blood 221 mg/dL (60-115)
[2024-09-13] MEDS: Ferrous Sulfate 324 MG TABLET.DR PO (12:42)
[2024-09-13] MEDS: Morphine Sulfate ER 30 MG TABLET.ER PO (13:41)
--- NOTE | 2024-09-13 13:47 | P.PNIM_ITS ---
Subjective Subjective Date of Service: 09/13/24 Interval History: no fever c/o productive cough, dyspnea, bilateral edema of legs Review of Systems Review of Systems: Yes all other systems are reviewed and are negative Physical Exam 2 Vital Signs: Vital Signs: Last Vital Signs Temp 97.9 F 09/13/24 12:06 Pulse 79 09/13/24 12:06 Resp 22 H 09/13/24 12:06 BP 134/70 09/13/24 12:06 Pulse Ox 92 09/13/24 12:06 O2 Del Method Nasal Cannula 09/13/24 12:06 O2 Flow Rate 3.5 09/13/24 12:06 Oxygen Flow Rate 4 09/13/24 01:47 BMI result Body Mass Index 29.9 Gen: in no acute distress HEENT: sclera anicteric, moist mucus membranes Neck: supple Lungs: diminished L base Heart: regular rate and rhythm, no murmurs Abd: soft, non-tender, non-distended Ext: 1+ bilateral leg edema Skin: warm/well-perfused Neuro: alert and oriented x3, no focal findings Psych: appropriate affect Objective Data Active Medications Albuterol Sulfate (Albuterol Sulfate (0.083%) 2.5 Mg/3 Ml Vial.Neb) 2.5 mg INHALE Q4H PRN PRN Reason: Wheezing Amlodipine Besylate (Amlodipine Besylate 10 Mg Tablet) 10 mg PO DAILY@0030 [facility]; Protocol Aspirin (Aspirin 325 Mg Tablet) 325 mg PO BID@0030,1230 [facility] Last Admin: 09/13/24 13:40 Dose: 325 mg Documented By: KALANI Baclofen (Baclofen 10 Mg Tablet) 10 mg PO BID PRN PRN Reason: Muscle Pain Calcium Carbonate (Calcium Carbonate 750 Mg Tab.Chew) 750 mg PO Q4H PRN PRN Reason: Heartburn Ceftriaxone Sodium (Ceftriaxone Sodium 1 Gm Vial) 1 gm IVPUSH Q24H [facility] Cyclobenzaprine HCl (Cyclobenzaprine Hcl 5 Mg Tablet) 5 mg PO BID PRN PRN Reason: Muscle Spasm Dextrose (Dextrose 50 % 25 Gm/50 Ml Syringe) 25 gm IVPUSH Q15M PRN; Protocol PRN Reason: per Hypoglycemia Standing Ord. Enoxaparin Sodium (Enoxaparin Sodium 40 Mg/0.4 Ml Syringe) 40 mg SUBCUT Q24H [facility] Last Admin: 09/13/24 08:09 Dose: 40 mg Documented By: JORGE Ferrous Sulfate (Ferrous Sulfate 324 Mg Tablet.Dr) 324 mg PO DAILY@123 [facility] Last Admin: 09/13/24 12:42 Dose: 324 mg Documented By: KALANI Furosemide (Furosemide 20 Mg/2 Ml Vial) 20 mg IVPUSH DAILY [facility]; Protocol Last Admin: 09/13/24 10:05 Dose: 20 mg Documented By: JORGE Glucose (Glucose Gel 15 Gm Gel..Gram.) 15 gm PO Q15M PRN; Protocol PRN Reason: per Hypoglycemia Standing Ord. Hydroxychloroquine Sulfate (Hydroxychloroquine Sulfate 200 Mg Tablet) 200 mg PO DAILY@003 [facility] Doxycycline Hyclate 100 mg/ (Sodium Chloride) 250 mls @ 166.67 mls/hr IV Q12H [facility] Insulin Glargine (Insulin Glargine,Hum.Rec.Anlog 100 Unit/Ml 10 Ml Vial) 44 unit SUBCUT DAILY [facility] Last Admin: 09/13/24 12:44 Dose: Not Given Documented By: KALANI Non-Admin Reason: Patient Refused Insulin Human Lispro (Insulin Lispro 100 Unit/Ml 3 Ml Vial) 0 unit SUBCUT QIDACHS [facility]; Protocol Last Admin: 09/13/24 12:57 Dose: 4 unit Documented By: KALANI Loratadine (Loratadine 10 Mg Tablet) 10 mg PO BID@29,1229 PRN PRN Reason: ALLERGIES Last Admin: 09/13/24 13:41 Dose: 10 mg Documented By: KALANI Losartan Potassium (Losartan Potassium 25 Mg Tablet) 25 mg PO DAILY@29 [facility]; Protocol Magnesium Hydroxide (Milk Of Magnesia 30 Ml Oral.Susp) 30 ml PO DAILY PRN PRN Reason: Constipation Magnesium Oxide (Magnesium Oxide 400 Mg Tablet) 400 mg PO DAILY@003 [facility] Meclizine HCl (Meclizine Hcl 25 Mg Tablet) 25 mg PO TID PRN PRN Reason: Vertigo Montelukast Sodium (Montelukast Sodium 10 Mg Tablet) 10 mg PO BEDTIME@003 [facility] Morphine Sulfate (Morphine Sulfate Er 30 Mg Tablet.Er) 30 mg PO BID@29,123 [facility] Last Admin: 09/13/24 13:41 Dose: 30 mg Documented By: KALANI Multivitamins/Vitamin C (Multivitamin Tablet) 1 tab PO DAILY@1230 [facility] Last Admin: 09/13/24 12:42 Dose: 1 tab Documented By: KALANI Mupirocin (Mupirocin 2 % Oint 22 Gm Tube) 1 appl TOPICAL DAILY PRN; Protocol PRN Reason: AFFECTED AREA Nicotine (Nicotine 14 Mg Patch.Td24) 14 mg TRANSDERMA DAILY [facility] Last Admin: 09/13/24 08:10 Dose: 14 mg Documented By: JORGE Nicotine Polacrilex (Nicotine Polacrilex Lozenge 2 Mg Lozenge) 2 mg BUCCAL Q2H PRN PRN Reason: Nicotine Cravings Non-Formulary Medication (Tiotropium-Olodaterol [Stiolto Respimat]) 2 puff INHALE DAILY [facility] Non-Formulary Medication (Linaclotide [Linzess]) 145 mcg PO DAILY@1229 [facility] Nystatin (Nystatin Oral Susp 500,000 Unit/5 Ml Oral.Susp) 400,000 unit BUCCAL QID PRN; Protocol PRN Reason: MOUTH RINSE Omeprazole (Omeprazole 20 Mg Capsule.Dr) 20 mg PO DAILY@123 [facility] Last Admin: 09/13/24 12:42 Dose: 20 mg Documented By: KALANI Oxycodone HCl (Oxycodone Hcl Immed Release 5 Mg Tablet) 10 mg PO QID PRN PRN Reason: Pain, Severe (Pain Scale 7-10) Oxycodone HCl (Oxycodone Hcl Immed Release 5 Mg Tablet) 5 mg PO Q6H PRN PRN Reason: Pain, Moderate(Pain Scale 4-6) Pramipexole Dihydrochloride (Pramipexole Di-Hcl 0.25 Mg Tablet) 0.25 mg PO DAILY@123 [facility] Last Admin: 09/13/24 12:42 Dose: 0.25 mg Documented By: KALANI Pramipexole Dihydrochloride (Pramipexole Di-Hcl 0.25 Mg Tablet) 0.5 mg PO BEDTIME@29 [facility] Pregabalin (Pregabalin 75 Mg Capsule) 75 mg PO BID@ [facility] Sodium Chloride (0.9 % Sodium Chloride Flush 3 Ml Syringe) 3 ml IVFLUSH QSHIFT [facility] Last Admin: 09/13/24 08:09 Dose: 3 ml Documented By: JORGE Vitamin D (Cholecalciferol (Vitamin D3) 25 Mcg Tablet) 50 mcg PO DAILY@0030 [facility] 09/13/24 02:37 09/13/24 02:07 Labs: Laboratory Results - last 24 hr 09/13/24 09/13/24 09/13/24 02:07 02:09 02:10 MCV MCH MCHC RDW Plt Count MPV Absolute Nucleated RBC Nucleated RBC % (auto) PT 15.1 H INR 1.3 H Anion Gap 14 Estim Creat Clear Calc 134.0 Estimated GFR > 60 POC Glucose Random Glucose 265 H Lactic Acid 2.1 H* Lactic Acid F/U @ 2Hr Calcium 8.7 Magnesium 1.6 Total Bilirubin 0.4 AST 24 ALT 15 Alkaline Phosphatase 82 B-Natriuretic Peptide 301 H Total Protein 6.6 Albumin 3.6 Influenza Type A (PCR) NEGATIVE Influenza Type B (PCR) NEGATIVE RSV RNA Qual (PCR) NEGATIVE SARS-CoV-2 RNA (RT-PCR) NEGATIVE 09/13/24 09/13/24 09/13/24 02:37 04:38 07:37 MCV 81.4 MCH 26.3 L MCHC 32.4 RDW 16.3 H Plt Count 216 MPV 10.0 Absolute Nucleated RBC 0.000 Nucleated RBC % (auto) 0.0 PT INR Anion Gap Estim Creat Clear Calc Estimated GFR POC Glucose 246 H Random Glucose Lactic Acid Lactic Acid F/U @ 2Hr 1.7 Calcium Magnesium Total Bilirubin AST ALT Alkaline Phosphatase B-Natriuretic Peptide Total Protein Albumin Influenza Type A (PCR) Influenza Type B (PCR) RSV RNA Qual (PCR) SARS-CoV-2 RNA (RT-PCR) 09/13/24 11:52 MCV MCH MCHC RDW Plt Count MPV Absolute Nucleated RBC Nucleated RBC % (auto) PT INR Anion Gap Estim Creat Clear Calc Estimated GFR POC Glucose 221 H Random Glucose Lactic Acid Lactic Acid F/U @ 2Hr Calcium Magnesium Total Bilirubin AST ALT Alkaline Phosphatase B-Natriuretic Peptide Total Protein Albumin Influenza Type A (PCR) Influenza Type B (PCR) RSV RNA Qual (PCR) SARS-CoV-2 RNA (RT-PCR) Impressions Chest CTA 09/13/24 08:14 IMPRESSION: 1. No evidence of pulmonary emboli. Findings consistent with pulmonary arterial hypertension without change. 2. Occlusion of the left lower lobe bronchus with complete atelectasis of the left lower lobe. Further evaluation with bronchoscopy should be considered. 3. Opacification of multiple right lower lobe bronchi and subsegmental atelectasis. Emphysema and bilateral upper lobe fibrosis. 4. Mediastinal and bilateral hilar lymphadenopathy. 5. Hepatosplenomegaly. Electronically signed by: Sumanth Spear MD 09/13/2024 10:02 AM EDT RP Pelvis CT 09/13/24 09:14 IMPRESSION: 1. Limited examination. No definite evidence of pelvic vein thrombosis. 2. Infiltration of the subcutaneous fat of the anterior abdominal wall below the umbilicus which could represent cellulitis. Clinical correlation is recommended. Electronically signed by: Sumanth Spear MD 09/13/2024 10:23 AM EDT RP Assessment and Plan (1) Pneumonia: Status: Acute Plan d1 for 64yo F with COPD on home O2, DM2, Sjogrens, fibromyalgia, chronic opioid therapy, celiac disease, UC, Lin's esophagus, RLS, TENISHA on CPAP, and recently diagnosed cardiomyopathy presenting with worsening chest pain and dyspnea x 1 wk acute/chronic hypoxic respiratory failure due to pneumonia + COPD exacerbation + new-onset CHF - 09/13- ceftriaxone + doxycycline, send urinary antigens for Legionella and pneumococcus + resp pathogen panel + MRSA swab, follow BCx + trend PCT - Pulm consult for occlusion of the left lower lobe bronchus with complete atelectasis of the left lower lobe - TTE, continue furosemide, monitor I/O + BNP + lytes acute lactic acidosis - likely secondary to hypoxia and metformin, resolved HTN - amlodipine, losartan RLS - pramipexole Sjogrens disease - continue hydroxychloroquine DM2 - basal-bolus insulin chronic pain - continue MSSR + oxycodone, pregabalin TENISHA - CPAP at bedtime tobacco abuse - NRT, counseling VTE ppx - enoxaparin dispo - TBD In my clinical judgment, the patient requires continued inpatient hospitalization for the following reasons: IV diuresis, hypoxia, Pulm consultation Total time managing care of this patient today: 45 minutes. Quality Stroke Does the patient have a stroke diagnosis?: No VTE Prior VTE?: No VTE Risk Level:: Medical - moderate - high VTE Device Contraindication: Treatment Not Indicated VTE Drug Contraindication: N/A - Med Ordered
--- NOTE | 2024-09-13 14:28 | PC.NURSE ---
Addendum entered by Christina Teran RN 09/13/24 14:31: assumed care at 1100* Original Note: assumed care of patient at 100, patient medicated per APR, requester prn oxycodone for 10/27 pain. patient remains on 4lNC at this time. patient is alert and oriented playing on ipad. patient is getting herself on/off commode. patient states her swollen leg (left) often gets hairy like a monkey and states she has to shave it. wanted to let medical staff know.
[2024-09-13 14:49] LABS: Procalcitonin 0.04 ng/mL
[2024-09-13 17:12] LABS: MRSA Nasal PCR NEGATIVE (Negative); SA Nasal PCR NEGATIVE (Negative)
[2024-09-13 17:59] LABS: Glucose, Whole Blood 226 mg/dL (60-115)
[2024-09-13 21:08] LABS: Glucose, Whole Blood 292 mg/dL (60-115)
[2024-09-14] VITALS (12 sets, daily range): BP systolic 116–145; BP diastolic 58–80; PULSE 71–83; RESP 16–18; TEMP 36.4–36.7; O2SAT 93–97; BMI 30.7
[2024-09-14] MEDS: Morphine Sulfate ER 30 MG TABLET.ER PO ×2 (00:02→12:31)
[2024-09-14] MEDS: Albuterol Sulfate (0.083%) 2.5 MG/3 ML VIAL.NEB INHALE ×6 (00:06→22:10)
[2024-09-14] MEDS: 0.9 % Sodium Chloride Flush 3 ML SYRINGE IVFLUSH ×4 (00:11→20:46)
[2024-09-14] MEDS: oxyCODONE HCl Immed Release 5 MG TABLET 10 MG PO ×4 (03:11→22:20)
[2024-09-14 06:43] LABS: MANUAL DIFF FLAG NO
[2024-09-14 06:52] LABS: Hematocrit 47.8 % (37.0-47.0); Hemoglobin 14.9 g/dl (12.0-16.0); Imm Gran Abs Auto 0.09 X10*3/uL (0.00-0.03); Imm Gran Pct Auto 0.8 % (0.0-0.4); Lymphocytes Absolute Auto 1.8 X10*3/uL (1.2-4.9); Mean Corpuscular HGB Conc 31.2 g/dl (31.0-35.0); Mean Corpuscular Hemoglobin 26.1 pg (27.0-33.0); Mean Corpuscular Volume 83.7 fL (80.0-98.0); NRBC Abs Auto 0.000 X10*3/uL (0.0-0.012); NRBC Pct Auto 0.0 /100WBC (0.0-0.2); Platelet Count 204 X10*3/uL (160-400); Red Blood Count 5.71 X10*6/uL (4.20-5.50); White Blood Count 10.7 X10*3/uL (4.8-10.8)
--- NOTE | 2024-09-14 07:00 | CA_ITS ---
Transthoracic Echocardiogram Patient (Last, First, Middle): Lashon Parra, Gender: Female Date of : 1960 Age: 64 Procedure Date: 09/14/2024 Procedure Type: Transthoracic Echocardiogram Location: [facility] [place] Height: 175.26 cm Weight: 99.79 kg BSA: 2.15 m2 Heart Rate: 79 bpm BP: 130 / 64 mmHg Stenotype Machine Operator: ANNIKA Referring MD: Carmen Garcia PA-C Vpk Teacher: Joss Snyder MD Symptoms: ?new onset CHF Study Quality: Adequate w contrast ECG Rhythm: Sinus Conclusions: - 1. Normal LV ejection fraction of 65-70% with mild LVH with grade 2 diastolic dysfunction 2. Dilated right-sided chambers with preserved RV systolic function 3. Cardiac valvular Dopplers within normal limits 4. Moderately elevated right ventricular systolic pressure with significantly elevated right atrial pressures 5. No gross pericardial effusion Findings Procedure Information Contrast agent, definity, is being given per protocol without apparent complications. The quality of the study was technically difficult. Left Ventricle Normal left ventricular size and systolic function. There is mildly increased left ventricular wall thickness. The visually estimated ejection fraction is between 60-65%. Spectral Doppler is indicative of a pseudonormal filling pattern. E/E prime ratio is >15, consistent with elevated filling pressures. Evidence suggests grade II (moderate) diastolic dysfunction. Right Ventricle Mildly increased right ventricular cavity size. There is normal right ventricular systolic function. Atria The left atrium is normal in size. Interatrial shunt cannot be excluded. The right atrium is mildly dilated. Aortic Valve The aortic valve was not well visualized. There is mild calcification of the aortic valve. There is no aortic valve stenosis. There is no aortic valve regurgitation. Mitral Valve There is mild anterior and posterior mitral leaflet thickening. There is trace mitral valve regurgitation. There is no mitral valve stenosis. Pulmonic Valve The pulmonic valve was not well visualized. Tricuspid Valve Likely normal tricuspid valve structure and function. There is trace tricuspid valve regurgitation. Significantly elevated right atrial pressure. Moderate pulmonary hypertension is present. Great Vessels The pulmonary artery was not well visualized. There is mild dilatation of the ascending aorta measuring 3.90 cm. Venous The inferior vena cava is moderately dilated and does not collapse with inspiration. Pericardium/Pleural There is no evidence of pericardial effusion. Prior Study Comparison No significant change compared to prior study dated: 02/27/2024. Measurements 2D Linear Measurements IVSd: 1.30 0.6-0.9/0.6-1.0 cm LVIDd: 4.66 3.9-5.3/4.2-5.9 cm LVIDd Index: 2.17 2.4-3.2/2.2-3.1 cm/m2 LVIDs: 2.34 2.0-3.6 cm LVPWd: 1.15 0.7-1.1 cm LA Diam: 4.10 2.7-3.8/3.0-4.0 cm LAIDs Index: 1.91 1.5-2.3 cm/m2 LV Mass: 268.56 67-162/88-224 g LV Mass Index: 124.91 43-95/49-115 g/m2 LVOT Diam: 1.90 3.0+(-)1.3 cm 2D Systolic Function EF 4C: 52.20 >55% EF 2C: 77.20 >55% EF BiP: 65.00 >55% Mitral Valve MV Pk E: 1.09 MV PK A: 0.88 MV Decel Time: 168.00 E/A: 1.20 E'Lateral: 7.94 E'Medial: 5.33 E/E' Med: 20.50 E/E' Lat: 13.70 PHT: 49.00 MVA PHT: 4.49 Decel Finney: 6.46 Aortic Valve AoV Pk Kaden: 1.68 AoV Pk Grad: 11.00 AILIN: 2.19 LVOT LVOT Pk Kaden: 1.35 LVOT Mn Kaden: 0.91 LVOT VTI: 0.26 LVOT Pk Grad: 7.00 LVOT Mn Grad: 4.00 LVOT Diam: 1.90 LVOT Area: 2.84 Diastolic Function MV Pk E: 1.09 MV Pk A: 0.88 E/A: 1.20 E'Medial: 5.33 E/E' Med: 20.50 E' Laterial: 7.94 E/E' Lat: 13.70 Right Ventricle TAPSE (mm): 22.50 TVS' Kaden: 16.00 Tricuspid Valve TR Pk Kaden: 3.22 TR Pk Grad: 41.00 RA Press: 15.00 RVSP: 56.00 Great Vessels Aorta Sinus of Valsalva: 3.40 2.0-3.5 cm Ao Asc: 3.90 2.1-3.4 cm Pulmonary Veins Pulm Vein S/D 0.90 Pulmonary Valve PV Pk Kaden: 1.07 Peak PV Grad: 5.00 Updated in Other Vendor System with Status of Final Joss Snyder MD electronically signed on 09/14/2024 11:37:09 AM with status of Final
[2024-09-14 07:02] LABS: Anion Gap 13 (12-20); Blood Urea Nitrogen 10 mg/dL (9-16); Calcium 8.6 mg/dL (8.4-10.2); Carbon Dioxide 33 mmol/L (22-29); Chloride 97 mmol/L (96-108); Creatinine Clr Calc Pharmacy 117.2; Estimated Glomerular Filt Rate > 60; Magnesium 1.6 mg/dL (1.6-2.6); Potassium 4.3 mmol/L (3.3-5.1); Sodium 139 mmol/L (135-145)
[2024-09-14 07:05] LABS: Glucose, Whole Blood 252 mg/dL (60-115)
[2024-09-14 07:08] LABS: B Type Natriuretic Peptide 58 pg/mL (<100)
--- NOTE | 2024-09-14 08:36 | PC.RT ---
Pt requested prn svn. Given via mask. Pt noted arousable but sleepy. She requested to be placed on her home cpap unit. 3 lpm O2 titrated in, nurse aware.
--- NOTE | 2024-09-14 09:04 | P.CONPL_ITS ---
History of Present Illness History of Present Illness Consult date: 09/14/24 Chief complaint: Acute hypoxic respiratory failure Narrative: This is an inpatient pulmonary consultation. The patient is a 64-year-old female with a past medical history significant for oxygen-dependent COPD, insulin- dependent diabetes, Sjogren's, fibromyalgia, chronic opioid use, celiac disease, ulcerative colitis, Lin's esophagus, restless leg syndrome, TENISHA on CPAP, class 1 obesity, ?left leg lymphedema, and new diagnosis cardiomyopathy, who presented to the ED due to chest pain and shortness of breath worsening over the past 7 days, significantly worsening over the past 24 hours. The patient reports that she has had multiple COPD exacerbations since January. She usually uses oxygen with ambulation now requiring at rest. She also describes substernal chest pain and a productive cough with clear sputum. She denies any fever. She has had left lower extremity edema for the past few months significantly worse than right lower extremity, has had multiple negative DVT studies. Since arriving to the ED her chest pain has improved significantly. She has received 40 mg IV Lasix due to possible new CHF with significant urine output. She denies any dysuria, frequency or urgency of urination prior to the Lasix. The patient underwent a CT scan of the chest personally by me ruling out PE. The patient does have a left lower lobe atelectatic area could be secondary to mucus plugging with significant cough. She should be treated for pneumonia and work on CPT to clear mucus plugging. I did provide her with the Aerobika and will start her on Mucomyst. Once we are able will get a culture to make sure we treat the appropriate organism causing the lower respiratory infection. Review of Systems 2 Constitutional: Constitutional: Denies body ache(s), Denies chills, Reports fatigue, Denies fever(s) and Denies headache(s) Eyes: Eyes: Denies change in vision ENT: Denies headache(s), Denies nasal congestion and Denies sore throat Cardiovascular: Cardiovascular: Reports chest pain, Denies rapid heart rate, Reports leg edema and Reports dyspnea Respiratory: Respiratory: Reports chest congestion, Reports cough, Reports dyspnea and Denies wheezing Gastrointestinal: Gastrointestinal: Denies abdominal pain, Denies nausea and Denies vomiting Genitourinary: Genitourinary: Denies difficulty voiding and Denies dysuria Musculoskeletal: Musculoskeletal: Denies myalgias Integumentary/Breasts: Skin/Breast: Denies rash Neurologic: Denies confusion and Denies headache(s) Psychiatric: Psychiatric: Denies confusion Endocrine: Endocrine: Reports fatigue Hematologic/Lymphatic: Hematologic/Lymphatic: Denies easy bleeding and Denies easy bruising Allergic/Immunologic: Allergic/Immunologic: Denies wheezing PMFSH Past Medical History Medical History Tobacco dependence due to cigarettes Diabetes mellitus with hyperglycemia Chronic pain syndrome nursing home (current) use of opiate analgesic Osteoporosis Sjogrens syndrome Rheumatoid arthritis Osteoarthritis Chronic, continuous use of opioids GERD (gastroesophageal reflux disease) Hx of difficult intubation Smoker COPD (chronic obstructive pulmonary disease) Asthma Polycythemia Boils Eczema Bursitis Disc degeneration Sleep apnea Diabetes Fibromyalgia Family History Family History Mother Polycythemia TIA (transient ischemic attack) Father Heart attack Other No family history of cancer Surgical History Surgical History History of esophagogastroduodenoscopy (EGD) Hx of tonsillectomy History of surgical removal of pilonidal cyst Hx of plastic surgery Hx of hysterectomy Hx of cholecystectomy Hx of appendectomy History of colonoscopy History of bladder suspension procedure History of removal of cyst Social History Social History Household Members: Spouse Housing: House Are you a primary rn transitional care to a significant other at home: No Do you presently have visiting nurse or other home services: No Alcohol intake: never Patient Tobacco Use Status: Current everyday Tobacco user Tobacco use type: Cigarette Cigarette Packs Per Day: 0.5 Cigarettes Per Day: 0.5 Years Smoked: 51 e-Cigarette/Vaping Use: Never Used Second Hand Smoke Exposure: No Advance Directives Date on File: 12/24/19 service: No Current occupational status: retired 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 Cognitive needs: No Hearing needs: No Vision needs: No Meds Allergies Allergy/AdvReac Type Severity Reaction Status Date / Time atorvastatin (From LIPITOR) Allergy Severe Difficulty Verified 09/13/24 01:49 Breathing azithromycin (AZITHROMYCIN) Allergy Severe Difficulty Verified 09/13/24 01:49 Breathing mite-Dermatophagoides Allergy Severe Difficulty Verified 09/13/24 01:49 farinae, vicente (dust mite - Breathing [place]) sumatriptan (From IMITREX) Allergy Severe Difficulty Verified 09/13/24 01:49 Breathing house dust Allergy Mild Unknown Verified 09/13/24 01:49 acetaminophen (From TYLENOL) Allergy Unknown Itching Verified 09/13/24 01:49 adhesive tape (ADHESIVE TAPE) Allergy Unknown Rash Verified 09/13/24 01:49 gentamicin (GENTAMICIN) Allergy Unknown Rash Verified 09/13/24 01:49 adalimumab (From Humira) Allergy Rash Verified 09/13/24 01:49 erythromycin base Allergy Unknown Verified 09/13/24 01:49 haloperidol (From HALDOL) AdvReac Unknown GI Issues Verified 09/13/24 01:49 ketorolac (From TORADOL) AdvReac Unknown Muscle Verified 09/13/24 01:49 cramps prasterone (DHEA) (From DHEA) AdvReac Unknown Cardiac Verified 09/13/24 01:49 issues varenicline (From CHANTIX) AdvReac Unknown Seizure Verified 09/13/24 01:49 ipratropium (From Atrovent) AdvReac Migraine Verified 09/13/24 01:49 Active Medications: Current Medications Albuterol Sulfate (Albuterol Sulfate (0.083%) 2.5 Mg/3 Ml Vial.Neb) 2.5 mg INHALE Q4H PRN PRN Reason: Wheezing Last Admin: 09/14/24 08:27 Dose: 2.5 mg Amlodipine Besylate (Amlodipine Besylate 10 Mg Tablet) 10 mg PO DAILY@0030 [facility]; Protocol Last Admin: 09/14/24 00:01 Dose: 10 mg Aspirin (Aspirin 325 Mg Tablet) 325 mg PO BID@0030,1230 [facility] Last Admin: 09/14/24 00:02 Dose: 325 mg Baclofen (Baclofen 10 Mg Tablet) 10 mg PO BID PRN PRN Reason: Muscle Pain Last Admin: 09/13/24 20:04 Dose: 10 mg Calcium Carbonate (Calcium Carbonate 750 Mg Tab.Chew) 750 mg PO Q4H PRN PRN Reason: Heartburn Ceftriaxone Sodium (Ceftriaxone Sodium 1 Gm Vial) 1 gm IVPUSH Q24H [facility] Last Admin: 09/14/24 03:11 Dose: 1 gm Cyclobenzaprine HCl (Cyclobenzaprine Hcl 5 Mg Tablet) 5 mg PO BID PRN PRN Reason: Muscle Spasm Dextrose (Dextrose 50 % 25 Gm/50 Ml Syringe) 25 gm IVPUSH Q15M PRN; Protocol PRN Reason: per Hypoglycemia Standing Ord. Enoxaparin Sodium (Enoxaparin Sodium 40 Mg/0.4 Ml Syringe) 40 mg SUBCUT Q24H [facility] Last Admin: 09/13/24 08:09 Dose: 40 mg Ferrous Sulfate (Ferrous Sulfate 324 Mg Tablet.Dr) 324 mg PO DAILY@1230 [facility] Last Admin: 09/13/24 12:42 Dose: 324 mg Furosemide (Furosemide 20 Mg/2 Ml Vial) 20 mg IVPUSH DAILY [facility]; Protocol Last Admin: 09/13/24 10:05 Dose: 20 mg Glucose (Glucose Gel 15 Gm Gel..Gram.) 15 gm PO Q15M PRN; Protocol PRN Reason: per Hypoglycemia Standing Ord. Hydroxychloroquine Sulfate (Hydroxychloroquine Sulfate 200 Mg Tablet) 200 mg PO DAILY@29 [facility] Last Admin: 09/14/24 00:04 Dose: 200 mg Doxycycline Hyclate 100 mg/ (Sodium Chloride) 250 mls @ 166.67 mls/hr IV Q12H [facility] Last Infusion: 09/14/24 06:09 Dose: Infused Insulin Glargine (Insulin Glargine,Hum.Rec.Anlog 100 Unit/Ml 10 Ml Vial) 44 unit SUBCUT DAILY [facility] Last Admin: 09/13/24 12:44 Dose: Not Given Insulin Human Lispro (Insulin Lispro 100 Unit/Ml 3 Ml Vial) 0 unit SUBCUT QIDACHS [facility]; Protocol Last Admin: 09/13/24 21:30 Dose: 6 unit Loratadine (Loratadine 10 Mg Tablet) 10 mg PO BID@0030,1230 PRN PRN Reason: ALLERGIES Last Admin: 09/13/24 13:41 Dose: 10 mg Losartan Potassium (Losartan Potassium 25 Mg Tablet) 25 mg PO DAILY@29 [facility]; Protocol Last Admin: 09/14/24 00:01 Dose: 25 mg Magnesium Hydroxide (Milk Of Magnesia 30 Ml Oral.Susp) 30 ml PO DAILY PRN PRN Reason: Constipation Magnesium Oxide (Magnesium Oxide 400 Mg Tablet) 400 mg PO DAILY@29 [facility] Last Admin: 09/14/24 00:01 Dose: 400 mg Meclizine HCl (Meclizine Hcl 25 Mg Tablet) 25 mg PO TID PRN PRN Reason: Vertigo Montelukast Sodium (Montelukast Sodium 10 Mg Tablet) 10 mg PO BEDTIME@0030 [facility] Last Admin: 09/14/24 00:01 Dose: 10 mg Morphine Sulfate (Morphine Sulfate Er 30 Mg Tablet.Er) 30 mg PO BID@0030,1230 [facility] Last Admin: 09/14/24 00:02 Dose: 30 mg Multivitamins/Vitamin C (Multivitamin Tablet) 1 tab PO DAILY@1230 [facility] Last Admin: 09/13/24 12:42 Dose: 1 tab Mupirocin (Mupirocin 2 % Oint 22 Gm Tube) 1 appl TOPICAL DAILY PRN; Protocol PRN Reason: AFFECTED AREA Nicotine (Nicotine 14 Mg Patch.Td24) 14 mg TRANSDERMA DAILY [facility] Last Admin: 09/13/24 08:10 Dose: 14 mg Nicotine Polacrilex (Nicotine Polacrilex Lozenge 2 Mg Lozenge) 2 mg BUCCAL Q2H PRN PRN Reason: Nicotine Cravings Non-Formulary Medication (Tiotropium-Olodaterol [Stiolto Respimat]) 2 puff INHALE DAILY [facility] Non-Formulary Medication (Linaclotide [Linzess]) 145 mcg PO DAILY@1230 [facility] Nystatin (Nystatin Oral Susp 500,000 Unit/5 Ml Oral.Susp) 400,000 unit BUCCAL QID PRN; Protocol PRN Reason: MOUTH RINSE Omeprazole (Omeprazole 20 Mg Capsule.Dr) 20 mg PO DAILY@1230 [facility] Last Admin: 09/13/24 12:42 Dose: 20 mg Oxycodone HCl (Oxycodone Hcl Immed Release 5 Mg Tablet) 10 mg PO QID PRN PRN Reason: Pain, Severe (Pain Scale 7-10) Last Admin: 09/14/24 03:11 Dose: 10 mg Oxycodone HCl (Oxycodone Hcl Immed Release 5 Mg Tablet) 5 mg PO Q6H PRN PRN Reason: Pain, Moderate(Pain Scale 4-6) Pramipexole Dihydrochloride (Pramipexole Di-Hcl 0.25 Mg Tablet) 0.25 mg PO DAILY@1230 [facility] Last Admin: 09/13/24 12:42 Dose: 0.25 mg Pramipexole Dihydrochloride (Pramipexole Di-Hcl 0.25 Mg Tablet) 0.5 mg PO BEDTIME@0030 [facility] Last Admin: 09/14/24 00:08 Dose: 0.5 mg Pregabalin (Pregabalin 75 Mg Capsule) 75 mg PO BID@0030,1230 [facility] Last Admin: 09/14/24 00:08 Dose: 75 mg Sodium Chloride (0.9 % Sodium Chloride Flush 3 Ml Syringe) 3 ml IVFLUSH QSHIFT [facility] Last Admin: 09/14/24 00:11 Dose: 3 ml Vitamin D (Cholecalciferol (Vitamin D3) 25 Mcg Tablet) 50 mcg PO DAILY@0030 [facility] Last Admin: 09/14/24 00:01 Dose: 50 mcg Home Medications ?Medication ?Instructions ?Recorded ?Confirmed ?Last Taken ?Type aspirin 325 mg tablet 325 mg PO BID@0030,1230 09/1709/13/24 09/12/24 History loratadine 10 mg tablet 10 mg PO BID@003,123 PRN 0 09/27/20 09/13/24 02/27/24 History ALLERGIES hyoscyamine sulfate 0.125 mg tablet 0.125 mg PO DAILY PRN GI 07/03/23 09/13/24 02/27/24 History cholecalciferol (vitamin D3) 50 50 mcg PO DAILY@0030 0 07/27/24 09/13/24 09/12/24 History mcg (2,000 unit) capsule (Vitamin D3) diclofenac sodium 75 mg 75 mg PO DAILY PRN Pain 07/1809/13/24 Unknown History tablet,delayed release ferrous sulfate 325 mg (65 mg 325 mg PO DAILY@1230 12/1109/13/24 09/13/24 History iron) tablet hydroxychloroquine 200 mg tablet 200 mg PO DAILY@0030 07/27/24 09/13/24 09/12/24 History insulin lispro 100 unit/mL 30 unit subcut TIDAC 09/13/24 09/12/24 History subcutaneous pen (Humalog KwikPen (U-100) Insulin) losartan 25 mg tablet 25 mg PO DAILY@0030 07/27/24 09/13/24 09/12/24 History magnesium oxide 400 mg (241.3 mg 400 mg PO DAILY@0030 07/27/24 09/13/24 09/12/24 History magnesium) tablet metformin 1,000 mg tablet 1,000 mg PO BID@0030,1230 09/13/24 09/13/24 History multivitamin 1 tab PO DAILY@1230 07/27/24 09/13/24 09/12/24 History mupirocin 2 % topical ointment 1 appl topical DAILY VA N AFFECTED 07/27/24 09/13/24 09/12/24 History AREA pramipexole 0.25 mg tablet 0.25 mg PO DAILY@1230 07/2709/13/24 09/13/24 History pramipexole 0.25 mg tablet 0.5 mg PO BEDTIME@0030 0609/13/24 09/12/24 History pregabalin 75 mg capsule (Lyrica) 75 mg PO BID@0030,12 30 07/27/24 09/13/24 09/13/24 History albuterol sulfate 90 mcg/actuation 2 puff inhalation Q 6H PRN wheezing 09/13/24 09/13/24 Unknown History aerosol inhaler baclofen 10 mg tablet 10 mg PO BID PRN Muscle Pain 09/13/24 09/13/24 Unknown History insulin glargine-yfgn 100 unit/mL 44 unit subcut DAILY 09/13/24 09/13/24 09/12/24 History subcutaneous solution linaclotide 145 mcg capsule 145 mcg PO DAILY@1230 07/10/1109/13/24 09/12/24 History (Linzess) montelukast 10 mg tablet 10 mg PO BEDTIME@0030 09/13/24 09/12/24 History nystatin 100,000 unit/mL oral 400,000 unit buccal QID PRN MOUTH 09/13/24 09/13/24 09/12/24 History suspension RINSE pantoprazole 40 mg tablet,delayed 40 mg PO DAILY@1230 09/13/24 09/13/24 09/13/24 History release tiotropium 2.5 mcg-olodaterol 2.5 2 puff inhalation DA LAMONTE 09/13/24 09/13/24 09/12/24 History mcg/actuation mist for inhalation (Stiolto Respimat) Physical Exam 2 Vital Signs: Vital Signs: Last Vital Signs Temp 97.6 F 09/14/24 07:03 Pulse 76 09/14/24 08:28 Resp 16 09/14/24 08:28 BP 131/72 09/14/24 07:03 Pulse Ox 95 09/14/24 07:03 O2 Del Method Nasal Cannula 09/14/24 07:03 O2 Flow Rate 4 09/14/24 07:03 Oxygen Flow Rate 4 09/13/24 01:47 BMI result Body Mass Index 30.7 Const: General: No confusion Nutritional Appearance: obese O rientation/consciousness: No confusion HEENT: Head: Yes atraumatic Eyes: General: appearance normal, both eyes and all related structures S clerae: sclerae normal EOM: EOMs intact bilaterally Neck: Neck: Yes supple Lymphatic: no lymphadenopathy noted Resp: Effort & Inspection: normal respiratory effort and Actively coughing Quality: productive Auscultation: rhonchi, wheezes and diminished lung sounds Cardio: Rate: regular rate Rhythm: regular rhythm Heart sounds: no gallops, no murmurs and no rubs Skin: General skin exam: other ( warm) Neuro: General: No confusion Extrem: General: No clubbing, No cyanosis and Yes edema (Left lower extremity) Results Laboratory Findings 09/14/24 06:36 09/14/24 06:36 ABG, PT/INR, D-dimer: PT/INR, D-dimer PT 15.1 SEC (10.9-12.4) H 09/13/24 02:07 INR 1.3 (0.9-1.1) H 09/13/24 02:07 Abnormal lab findings: Abnormal Labs 09/13/24 09/13/24 09/13/24 02:07 02:10 02:37 WBC 14.7 H RBC Hct MCH 26.3 L RDW 16.3 H Immature Gran % (Auto) Neut % (Auto) Lymph % (Auto) Abs Immat Gran (auto) PT 15.1 H INR 1.3 H Sodium 134 L Carbon Dioxide POC Glucose Random Glucose 265 H Lactic Acid 2.1 H* B-Natriuretic Peptide 301 H 09/13/24 09/13/24 09/13/24 07:37 11:52 17:56 WBC RBC Hct MCH RDW Immature Gran % (Auto) Neut % (Auto) Lymph % (Auto) Abs Immat Gran (auto) PT INR Sodium Carbon Dioxide POC Glucose 246 H 221 H 226 H Random Glucose Lactic Acid B-Natriuretic Peptide 09/13/24 09/14/24 09/14/24 20:52 06:36 07:01 WBC RBC 5.71 H Hct 47.8 H MCH 26.1 L RDW 17.5 H Immature Gran % (Auto) 0.8 H Neut % (Auto) 73.1 H Lymph % (Auto) 16.5 L Abs Immat Gran (auto) 0.09 H PT INR Sodium Carbon Dioxide 33 H POC Glucose 292 H 252 H Random Glucose 265 H Lactic Acid B-Natriuretic Peptide Microbiology: Microbiology 09/13/24 02:22 Blood - Venous Blood Culture - Preliminary No growth after 24 hours. 09/13/24 02:10 Blood - Venous Blood Culture - Preliminary No growth after 24 hours. Assessment and Plan (1) TENISHA (obstructive sleep apnea): Status: Acute (2) Tobacco use disorder: Status: Acute (3) Acute and chronic respiratory failure with hypoxia: Status: Acute (4) Pneumonia: Qualifiers: Pneumonia type: due to unspecified organism Laterality: left Lung location: lower lobe of lung Qualified Code(s): J18.9 - Pneumonia, unspecified organism Status: Acute (5) Atelectasis: Status: Acute Plan continue abx therapy continue nebulizer therapy Add CPT with aerobika (provided) Sputum CX MRSA screen start Mucomust 10% BID Serial CXR Holding on the Bronchosopcy at this time. If no better or if recurrent disease should consider bronchoscopy smoking cessation Procedures Date of Service Date of Service: 09/14/24
[2024-09-14] MEDS: Insulin Glargine,Hum.rec.anlog 100 UNIT/ML 10 ML VIAL 44 UNIT SUBCUT (09:07)
[2024-09-14] MEDS: Nicotine Polacrilex Lozenge 2 MG LOZENGE BUCCAL (09:07)
[2024-09-14] MEDS: Furosemide 20 MG/2 ML VIAL IVPUSH (09:08)
[2024-09-14] MEDS: Nicotine 14 MG PATCH.TD24 TRANSDERMA (09:09)
[2024-09-14 11:02] LABS: Glucose, Whole Blood 293 mg/dL (60-115)
[2024-09-14 11:15] LABS: Chlamydia pneumoniae PCR Not Detected (Not Detect.); Coronavirus 229E PCR Not Detected (Not Detect.); Coronavirus HKU1 PCR Not Detected (Not Detect.); Coronavirus NL63 PCR Not Detected (Not Detect.); Coronavirus OC43 PCR Not Detected (Not Detect.); RSV PCR Not Detected (Not Detect.); Rhino/Enterovirus PCR Not Detected (Not Detect.)
--- NOTE | 2024-09-14 11:27 | MHC.CM.PN ---
Pt self-care, lives at home with her /HCP. Pt uses home O2 through [facility], and has a wheelchair. Pts will transport her home at discharge. PCP: Dr. Dottie Douglass
--- NOTE | 2024-09-14 11:39 | HO.PM.IMPN ---
Subjective Subjective Date of Service: 09/14/24 Interval History: sob Physical Exam Exam: Exam: General: AO X 3, dyspneic Resp: rhonchi bilateral, accessory muscles used CVS: S1,S2,RRR GI: soft, non tender, non distended Neuro: motor grossly intact, alert Psych: appropriate affect, appropriate insight Vital Signs: Vital Signs: Last Vital Signs Temp 97.9 F 09/14/24 11:09 Pulse 82 09/14/24 11:37 Resp 18 09/14/24 11:37 BP 120/80 09/14/24 11:09 Pulse Ox 93 09/14/24 11:09 O2 Del Method Nasal Cannula 09/14/24 11:09 O2 Flow Rate 4 09/14/24 11:09 Oxygen Flow Rate 4 09/13/24 01:47 BMI result Body Mass Index 30.7 Objective Data Active Medications Acetylcysteine (Acetylcysteine 10 % 400 Mg/4 Ml Vial) 400 mg INHALE Q6H BETSEY Albuterol Sulfate (Albuterol Sulfate (0.083%) 2.5 Mg/3 Ml Vial.Neb) 2.5 mg INHALE Q4H PRN PRN Reason: Wheezing Last Admin: 09/14/24 11:37 Dose: 2.5 mg Documented By: ANNIKA Amlodipine Besylate (Amlodipine Besylate 10 Mg Tablet) 10 mg PO DAILY@0030 [facility], [facility]; Protocol Last Admin: 09/14/24 00:01 Dose: 10 mg Documented By: BELKIS Aspirin (Aspirin 325 Mg Tablet) 325 mg PO BID@0030,1230 [facility], [facility]1983 Last Admin: 09/14/24 00:02 Dose: 325 mg Documented By: BELKIS Baclofen (Baclofen 10 Mg Tablet) 10 mg PO BID PRN PRN Reason: Muscle Pain Last Admin: 09/14/24 09:07 Dose: 10 mg Documented By: MEGHAPAEm Calcium Carbonate (Calcium Carbonate 750 Mg Tab.Chew) 750 mg PO Q4H PRN PRN Reason: Heartburn Ceftriaxone Sodium (Ceftriaxone Sodium 1 Gm Vial) 1 gm IVPUSH Q24H [facility], [facility] Last Admin: 09/14/24 03:11 Dose: 1 gm Documented By: BELKIS Cyclobenzaprine HCl (Cyclobenzaprine Hcl 5 Mg Tablet) 5 mg PO BID PRN PRN Reason: Muscle Spasm Dextrose (Dextrose 50 % 25 Gm/50 Ml Syringe) 25 gm IVPUSH Q15M PRN; Protocol PRN Reason: per Hypoglycemia Standing Ord. Enoxaparin Sodium (Enoxaparin Sodium 40 Mg/0.4 Ml Syringe) 40 mg SUBCUT Q24H [facility], [facility]–1983 Last Admin: 09/14/24 09:08 Dose: 40 mg Documented By: BYRON Ferrous Sulfate (Ferrous Sulfate 324 Mg Tablet.Dr) 324 mg PO DAILY@1230 [facility], [facility]1983 Last Admin: 09/13/24 12:42 Dose: 324 mg Documented By: KALANI Furosemide (Furosemide 20 Mg/2 Ml Vial) 20 mg IVPUSH DAILY [facility], [facility]; Protocol Last Admin: 09/14/24 09:08 Dose: 20 mg Documented By: BYRON Glucose (Glucose Gel 15 Gm Gel..Gram.) 15 gm PO Q15M PRN; Protocol PRN Reason: per Hypoglycemia Standing Ord. Hydroxychloroquine Sulfate (Hydroxychloroquine Sulfate 200 Mg Tablet) 200 mg PO DAILY@0030 [facility], [facility] Last Admin: 09/14/24 00:04 Dose: 200 mg Documented By: BELKIS Doxycycline Hyclate 100 mg/ (Sodium Chloride) 250 mls @ 166.67 mls/hr IV Q12H [facility], [facility]–1983 Last Infusion: 09/14/24 06:09 Dose: Infused Documented By: BELKIS Insulin Glargine (Insulin Glargine,Hum.Rec.Anlog 100 Unit/Ml 10 Ml Vial) 44 unit SUBCUT DAILY [facility], [facility]1983 Last Admin: 09/14/24 09:07 Dose: 44 unit Documented By: BYRON Insulin Human Lispro (Insulin Lispro 100 Unit/Ml 3 Ml Vial) 0 unit SUBCUT QIDACHS [facility], [facility]–1983; Protocol Last Admin: 09/14/24 09:08 Dose: 6 unit Documented By: BYRON Loratadine (Loratadine 10 Mg Tablet) 10 mg PO BID@0030,1230 PRN PRN Reason: ALLERGIES Last Admin: 09/13/24 13:41 Dose: 10 mg Documented By: KALANI Losartan Potassium (Losartan Potassium 25 Mg Tablet) 25 mg PO DAILY@0030 [facility], [facility]1983; Protocol Last Admin: 09/14/24 00:01 Dose: 25 mg Documented By: BELKIS Magnesium Hydroxide (Milk Of Magnesia 30 Ml Oral.Susp) 30 ml PO DAILY PRN PRN Reason: Constipation Magnesium Oxide (Magnesium Oxide 400 Mg Tablet) 400 mg PO DAILY@0030 [facility], [facility] Last Admin: 09/14/24 00:01 Dose: 400 mg Documented By: BELKIS Meclizine HCl (Meclizine Hcl 25 Mg Tablet) 25 mg PO TID PRN PRN Reason: Vertigo Montelukast Sodium (Montelukast Sodium 10 Mg Tablet) 10 mg PO BEDTIME@003 [facility], [facility]1983 Last Admin: 09/14/24 00:01 Dose: 10 mg Documented By: BELKIS Morphine Sulfate (Morphine Sulfate Er 30 Mg Tablet.Er) 30 mg PO BID@003,1230 [facility], [facility]1983 Last Admin: 09/14/24 00:02 Dose: 30 mg Documented By: BELKIS Multivitamins/Vitamin C (Multivitamin Tablet) 1 tab PO DAILY@1230 [facility], [facility]1983 Last Admin: 09/13/24 12:42 Dose: 1 tab Documented By: KALANI Mupirocin (Mupirocin 2 % Oint 22 Gm Tube) 1 appl TOPICAL DAILY PRN; Protocol PRN Reason: AFFECTED AREA Nicotine (Nicotine 14 Mg Patch.Td24) 14 mg TRANSDERMA DAILY [facility], [facility]1983 Last Admin: 09/14/24 09:09 Dose: 14 mg Documented By: BYRON Nicotine Polacrilex (Nicotine Polacrilex Lozenge 2 Mg Lozenge) 2 mg BUCCAL Q2H PRN PRN Reason: Nicotine Cravings Last Admin: 09/14/24 09:07 Dose: 2 mg Documented By: BYRON Non-Formulary Medication (Tiotropium-Olodaterol [Stiolto Respimat]) 2 puff INHALE DAILY [facility], [facility]1983 Non-Formulary Medication (Linaclotide [Linzess]) 145 mcg PO DAILY@1230 [facility], [facility]1983 Nystatin (Nystatin Oral Susp 500,000 Unit/5 Ml Oral.Susp) 400,000 unit BUCCAL QID PRN; Protocol PRN Reason: MOUTH RINSE Omeprazole (Omeprazole 20 Mg Capsule.Dr) 20 mg PO DAILY@1230 [facility], [facility] Last Admin: 09/13/24 12:42 Dose: 20 mg Documented By: KALANI Oxycodone HCl (Oxycodone Hcl Immed Release 5 Mg Tablet) 10 mg PO QID PRN PRN Reason: Pain, Severe (Pain Scale 7-10) Last Admin: 09/14/24 09:05 Dose: 10 mg Documented By: BYRON Oxycodone HCl (Oxycodone Hcl Immed Release 5 Mg Tablet) 5 mg PO Q6H PRN PRN Reason: Pain, Moderate(Pain Scale 4-6) Pramipexole Dihydrochloride (Pramipexole Di-Hcl 0.25 Mg Tablet) 0.25 mg PO DAILY@1230 [facility], [facility] Last Admin: 09/13/24 12:42 Dose: 0.25 mg Documented By: KALANI Pramipexole Dihydrochloride (Pramipexole Di-Hcl 0.25 Mg Tablet) 0.5 mg PO BEDTIME@0030 [facility], [facility]1983 Last Admin: 09/14/24 00:08 Dose: 0.5 mg Documented By: BELKIS Pregabalin (Pregabalin 75 Mg Capsule) 75 mg PO BID@0030,1230 [facility], [facility]1983 Last Admin: 09/14/24 00:08 Dose: 75 mg Documented By: BELKIS Sodium Chloride (0.9 % Sodium Chloride Flush 3 Ml Syringe) 3 ml IVFLUSH QSHIFT [facility], [facility] Last Admin: 09/14/24 09:08 Dose: 3 ml Documented By: BYRON Vitamin D (Cholecalciferol (Vitamin D3) 25 Mcg Tablet) 50 mcg PO DAILY@0030 [facility] Last Admin: 09/14/24 00:01 Dose: 50 mcg Documented By: BELKIS Labs 09/14/24 06:36 09/14/24 06:36 Labs: Laboratory Results - last 24 hr 09/13/24 09/13/24 09/13/24 02:07 11:52 15:29 MCV MCH MCHC RDW Plt Count MPV Immature Gran % (Auto) Neut % (Auto) Lymph % (Auto) [place] % (Auto) Eos % (Auto) Baso % (Auto) Lymph # (Auto) [place] # (Auto) Eos # (Auto) Baso # (Auto) Abs Immat Gran (auto) Absolute Neuts (auto) Absolute Nucleated RBC Nucleated RBC % (auto) Anion Gap Estim Creat Clear Calc Estimated GFR POC Glucose 221 H Random Glucose Calcium Magnesium B-Natriuretic Peptide Procalcitonin 0.04 Nasal Screen MRSA (PCR) NEGATIVE Nasal S. aureus Screen NEGATIVE Nasal MRSA/S.aureus Interp SEE NOTE 09/13/24 09/13/24 09/14/24 17:56 20:52 06:36 MCV 83.7 MCH 26.1 L MCHC 31.2 RDW 17.5 H Plt Count 204 MPV 10.1 Immature Gran % (Auto) 0.8 H Neut % (Auto) 73.1 H Lymph % (Auto) 16.5 L [place] % (Auto) 5.9 Eos % (Auto) 3.0 Baso % (Auto) 0.7 Lymph # (Auto) 1.8 [place] # (Auto) 0.6 Eos # (Auto) 0.3 Baso # (Auto) 0.1 Abs Immat Gran (auto) 0.09 H Absolute Neuts (auto) 7.8 Absolute Nucleated RBC 0.000 Nucleated RBC % (auto) 0.0 Anion Gap 13 Estim Creat Clear Calc 117.2 Estimated GFR > 60 POC Glucose 226 H 292 H Random Glucose 265 H Calcium 8.6 Magnesium 1.6 B-Natriuretic Peptide 58 Procalcitonin Nasal Screen MRSA (PCR) Nasal S. aureus Screen Nasal MRSA/S.aureus Interp 09/14/24 09/14/24 07:01 10:58 MCV MCH MCHC RDW Plt Count MPV Immature Gran % (Auto) Neut % (Auto) Lymph % (Auto) [place] % (Auto) Eos % (Auto) Baso % (Auto) Lymph # (Auto) [place] # (Auto) Eos # (Auto) Baso # (Auto) Abs Immat Gran (auto) Absolute Neuts (auto) Absolute Nucleated RBC Nucleated RBC % (auto) Anion Gap Estim Creat Clear Calc Estimated GFR POC Glucose 252 H 293 H Random Glucose Calcium Magnesium B-Natriuretic Peptide Procalcitonin Nasal Screen MRSA (PCR) Nasal S. aureus Screen Nasal MRSA/S.aureus Inter Microbiology Microbiology Results: Microbiology 09/13/24 02:22 Blood Culture - Preliminary Blood - Venous No growth after 24 hours. 09/13/24 02:10 Blood Culture - Preliminary Blood - Venous No growth after 24 hours. Assessment and Plan (1) Dyspnea on exertion: Status: Acute Plan 64F PMH chronic hypoxic respiratory failure due to COPD and Sjogren syndrome with pulmonary hypertension on 4 L home O2, chronic opiate dependence, celiac disease, ulcerative colitis, Lin's esophagus, restless leg syndrome, TENISHA on CPAP presented with shortness of breaths Acute on chronic hypoxic respiratory failure due to COPD with acute decompensation and pneumonia and acute on chronic unspecified CHF Continue ceftriaxone doxycycline, MRSA swab negative, follow up respiratory viral panel, palm appreciated continue CPT Continue Lasix, follow up echo Acute lactic acidosis Due to metformin hypoxia not sepsis Hypertension Amlodipine, losartan Sjogren's Continue hydroxychloroquine Diabetes Basal bolus insulin Chronic pain on opiates Continue MSIR and oxycodone TENISHA CPAP at night DVT prophylaxis with Lovenox Full Code reason for continued hospitalization: Shortness breath, hypoxia Quality Stroke Does the patient have a stroke diagnosis?: No VTE Prior VTE?: No VTE Risk Level:: Medical - moderate - high VTE Device Contraindication: Treatment Not Indicated VTE Drug Contraindication: N/A - Med Ordered
[2024-09-14] MEDS: Acetylcysteine 10 % 400 MG/4 ML VIAL INHALE ×3 (11:41→22:10)
[2024-09-14 11:43] LABS: Influenza A H1 PCR Not Detected (Not Detect.); Influenza A H1-2009 PCR Not Detected (Not Detect.); Influenza A H3 PCR Not Detected (Not Detect.); SARS-CoV-2 PCR Not Detected (Not Detect.)
[2024-09-14] MEDS: Ferrous Sulfate 324 MG TABLET.DR PO (12:13)
[2024-09-14] MEDS: oxyCODONE HCl Immed Release 5 MG TABLET PO (12:17)
--- NOTE | 2024-09-14 15:19 | PC.RT ---
Pt encouraged to use aerobika post mucolytic and bronchodilator therapy. Pt able to demonstrate proper use.
[2024-09-14 16:18] LABS: Glucose, Whole Blood 225 mg/dL (60-115)
[2024-09-14 20:21] LABS: Glucose, Whole Blood 229 mg/dL (60-115)
[2024-09-14] MEDS: Diclofenac Sodium Delayed Rel 75 MG TABLET.DR PO (20:48)
[2024-09-15] VITALS (10 sets, daily range): BP systolic 106–130; BP diastolic 57–81; PULSE 66–81; RESP 17–20; TEMP 36.2–37.1; O2SAT 90–96
[2024-09-15] MEDS: Morphine Sulfate ER 30 MG TABLET.ER PO ×2 (00:37→13:30)
[2024-09-15] MEDS: Nystatin Oral Susp 500,000 UNIT/5 ML ORAL.SUSP 400000 UNIT BUCCAL (00:45)
[2024-09-15] MEDS: oxyCODONE HCl Immed Release 5 MG TABLET 10 MG PO ×3 (04:49→16:53)
[2024-09-15] MEDS: Acetylcysteine 10 % 400 MG/4 ML VIAL INHALE ×4 (04:53→23:18)
[2024-09-15 07:01] LABS: Hematocrit 45.4 % (37.0-47.0); Hemoglobin 14.0 g/dl (12.0-16.0); Mean Corpuscular HGB Conc 30.8 g/dl (31.0-35.0); Mean Corpuscular Hemoglobin 26.0 pg (27.0-33.0); Mean Corpuscular Volume 84.4 fL (80.0-98.0); NRBC Abs Auto 0.000 X10*3/uL (0.0-0.012); NRBC Pct Auto 0.0 /100WBC (0.0-0.2); Platelet Count 211 X10*3/uL (160-400); Red Blood Count 5.38 X10*6/uL (4.20-5.50); White Blood Count 9.6 X10*3/uL (4.8-10.8)
[2024-09-15 07:12] LABS: Anion Gap 11 (12-20); Blood Urea Nitrogen 12 mg/dL (9-16); Calcium 8.5 mg/dL (8.4-10.2); Carbon Dioxide 32 mmol/L (22-29); Chloride 97 mmol/L (96-108); Creatinine Clr Calc Pharmacy 127.9; Estimated Glomerular Filt Rate > 60; Potassium 4.2 mmol/L (3.3-5.1); Sodium 136 mmol/L (135-145)
[2024-09-15 07:31] LABS: Glucose, Whole Blood 237 mg/dL (60-115)
[2024-09-15] MEDS: 0.9 % Sodium Chloride Flush 3 ML SYRINGE IVFLUSH ×3 (08:05→20:20)
[2024-09-15] MEDS: Insulin Glargine,Hum.rec.anlog 100 UNIT/ML 10 ML VIAL 44 UNIT SUBCUT (08:06)
[2024-09-15] MEDS: Furosemide 20 MG/2 ML VIAL IVPUSH (08:07)
[2024-09-15] MEDS: Nicotine 14 MG PATCH.TD24 TRANSDERMA (08:07)
--- NOTE | 2024-09-15 09:28 | P.PNPL_ITS ---
Subjective Subjective Date of Service: 09/15/24 Interval history: The patient was seen on exam. Feeling better. She is using the Mucomyst. It is helping her expectorate. She is also using her CPAP at nighttime. Echocardiogram did demonstrate evidence of pulmonary hypertension. She also has left-sided diastolic dysfunction in addition to hypoxic respiratory failure and sleep apnea which could be contributing as well. Likely a component of Pickwickian syndrome from her body habitus. Therefore, she needs additional diuresis to help with the pulmonary hypertension. Objective Data Labs 09/15/24 06:39 09/15/24 06:39 Labs: Laboratory Results - last 24 hr 09/13/24 09/14/24 09/14/24 15:29 10:58 16:12 WBC RBC Hgb Hct MCV MCH MCHC RDW Plt Count MPV Absolute Nucleated RBC Nucleated RBC % (auto) Sodium Potassium Chloride Carbon Dioxide Anion Gap BUN Creatinine Estim Creat Clear Calc Estimated GFR POC Glucose 293 H 225 H Random Glucose Calcium Respiratory Panel [place] See Note Adenovirus (Rapid PCR) Not Detected B.pert (TEM-PCR) Not Detected B.parapertussis DNA PCR Not Detected C. pneumoniae DNA (PCR) Not Detected Coronavirus OC43 (PCR) Not Detected Coronavirus HKU1 (PCR) Not Detected Coronavirus 229E (PCR) Not Detected Coronavirus NL63 (PCR) Not Detected Human Metapneumovir PCR Not Detected Influenza A (RT-PCR) Not Detected Influenza A (H1) PCR Not Detected Influ A (H1/09) PCR Not Detected Influenza A (H3) PCR Not Detected Influenza B (RT-PCR) Not Detected M. pneumoniae (PCR) Not Detected Parainfluenza 1 (PCR) Not Detected Parainfluenza 2 (PCR) Not Detected Parainfluenza 3 (PCR) Not Detected Parainfluenza 4 (PCR) Not Detected RSV (PCR) Not Detected Entero/Rhino (PCR) Not Detected SARS-CoV-2 RNA (RT-PCR) Not Detected 09/14/24 09/15/24 09/15/24 20:16 06:39 07:24 WBC 9.6 RBC 5.38 Hgb 14.0 Hct 45.4 MCV 84.4 MCH 26.0 L MCHC 30.8 L RDW 16.8 H Plt Count 211 MPV 10.3 Absolute Nucleated RBC 0.000 Nucleated RBC % (auto) 0.0 Sodium 136 Potassium 4.2 Chloride 97 Carbon Dioxide 32 H Anion Gap 11 L BUN 12 Creatinine 0.55 Estim Creat Clear Calc 127.9 Estimated GFR > 60 POC Glucose 229 H 237 H Random Glucose 251 H Calcium 8.5 Respiratory Panel [place] Adenovirus (Rapid PCR) B.pert (TEM-PCR) B.parapertussis DNA PCR C. pneumoniae DNA (PCR) Coronavirus OC43 (PCR) Coronavirus HKU1 (PCR) Coronavirus 229E (PCR) Coronavirus NL63 (PCR) Human Metapneumovir PCR Influenza A (RT-PCR) Influenza A (H1) PCR Influ A (H1/09) PCR Influenza A (H3) PCR Influenza B (RT-PCR) M. pneumoniae (PCR) Parainfluenza 1 (PCR) Parainfluenza 2 (PCR) Parainfluenza 3 (PCR) Parainfluenza 4 (PCR) RSV (PCR) Entero/Rhino (PCR) SARS-CoV-2 RNA (RT-PCR) Microbiology Microbiology Results: Microbiology 09/14/24 10:30 Sputum - Expectorated Gram Stain - Final 09/14/24 10:30 Sputum - Expectorated Sputum Culture - Preliminary 09/13/24 02:22 Blood - Venous Blood Culture - Preliminary No growth after 48 hours. 09/13/24 02:10 Blood - Venous Blood Culture - Preliminary No growth after 48 hours. Review of Systems Constitutional: Denies body ache(s), Denies chills, Reports fatigue, Denies fever(s) and Denies headache(s) Eyes: Denies change in vision Denies headache(s), Denies nasal congestion and Denies sore throat Cardiovascular: Reports chest pain, Denies rapid heart rate, Reports leg edema and Reports dyspnea Respiratory: Reports chest congestion, Reports cough, Reports dyspnea and Denies wheezing Gastrointestinal: Denies abdominal pain, Denies nausea and Denies vomiting Genitourinary: Denies difficulty voiding and Denies dysuria Musculoskeletal: Denies myalgias Skin/Breast: Denies rash Denies confusion and Denies headache(s) Psychiatric: Denies confusion Endocrine: Reports fatigue Hematologic/Lymphatic: Denies easy bleeding and Denies easy bruising Allergic/Immunologic: Denies wheezing Physical Exam 2 Vital Signs: Vital Signs: Last Vital Signs Temp 97.1 F 09/15/24 07:33 Pulse 66 09/15/24 07:33 Resp 20 09/15/24 07:33 BP 106/63 09/15/24 07:33 Pulse Ox 96 09/15/24 07:33 O2 Del Method Nasal Cannula 09/15/24 07:33 O2 Flow Rate 4 09/15/24 07:33 Oxygen Flow Rate 4 09/13/24 01:47 BMI result Body Mass Index 30.7 Const: General: No confusion Nutritional Appearance: obese O rientation/consciousness: No confusion HEENT: Head: Yes atraumatic Eyes: General: appearance normal, both eyes and all related structures S clerae: sclerae normal EOM: EOMs intact bilaterally Neck: Neck: Yes supple Lymphatic: no lymphadenopathy noted Resp: Effort & Inspection: normal respiratory effort and Actively coughing Quality: productive Auscultation: rhonchi, wheezes and diminished lung sounds Cardio: Rate: regular rate Rhythm: regular rhythm Heart sounds: no gallops, no murmurs and no rubs Skin: General skin exam: other ( warm) Neuro: General: No confusion Extrem: General: No clubbing, No cyanosis and Yes edema (Left lower extremity) Procedures Date of Service Date of Service: 09/15/24 Assessment and Plan Assessment and plan (1) Tobacco use disorder: Status: Acute (2) Edema of left lower extremity: Status: Acute (3) Acute and chronic respiratory failure with hypoxia: Status: Acute (4) Pneumonia: Status: Acute (5) Atelectasis: Status: Acute (6) Pulmonary hypertension: Status: Acute Plan Continue Mucomyst for another day along with short-acting beta agonist Continue corticosteroids Continue antibiotic therapy Sputum sent for culture, awaiting results please repeat chest x-ray tomorrow Diuresis as tolerated Continue PAP therapy at night Tobacco cessation Time Spent With Patient Time: Total time managing care of this patient today ____ minutes. Progress Note: Quality Stroke Does the patient have a stroke diagnosis?: No
--- NOTE | 2024-09-15 09:50 | HO.PM.IMPN ---
Subjective Subjective Date of Service: 09/15/24 Interval History: 50% better Neurologic Neurologic: Denies confusion Psychiatric Psychiatric: Denies confusion Physical Exam Vital Signs: Vital Signs: Last Vital Signs Temp 97.1 F 09/15/24 07:33 Pulse 66 09/15/24 07:33 Resp 20 09/15/24 07:33 BP 106/63 09/15/24 07:33 Pulse Ox 96 09/15/24 07:33 O2 Del Method Nasal Cannula 09/15/24 07:33 O2 Flow Rate 4 09/15/24 07:33 Oxygen Flow Rate 4 09/13/24 01:47 BMI result Body Mass Index 30.7 Const: General: No confusion Nutritional Appearance: obese Orientation/consciousness: No confusion HEENT: Head: Yes atraumatic Eyes: General: appearance normal, both eyes and all related structures Sclerae: sclerae normal EOM: EOMs intact bilaterally Neck: Neck: Yes supple Lymphatic: no lymphadenopathy noted Resp: Effort & Inspection: normal respiratory effort and Actively coughing Quality: productive Auscultation: rhonchi, wheezes and diminished lung sounds Cardio: Rate: regular rate Rhythm: regular rhythm Heart sounds: no gallops, no murmurs and no rubs Skin: General skin exam: other ( warm) Neuro: General: No confusion Extrem: General: No clubbing, No cyanosis and Yes edema (Left lower extremity) Objective Data Active Medications Acetylcysteine (Acetylcysteine 10 % 400 Mg/4 Ml Vial) 400 mg INHALE Q6H REPLACED BY [facility] Last Admin: 09/15/24 04:53 Dose: 400 mg Documented By: ALYSA Albuterol Sulfate (Albuterol Sulfate (0.083%) 2.5 Mg/3 Ml Vial.Neb) 2.5 mg INHALE Q4H PRN PRN Reason: Wheezing Last Admin: 09/14/24 22:10 Dose: 2.5 mg Documented By: ALYSA Amlodipine Besylate (Amlodipine Besylate 10 Mg Tablet) 10 mg PO DAILY@0030 REPLACED BY [facility]; Protocol Last Admin: 09/15/24 00:38 Dose: 10 mg Documented By: KESHA Aspirin (Aspirin 325 Mg Tablet) 325 mg PO BID@0030,1230 REPLACED BY [facility] Last Admin: 09/15/24 00:38 Dose: 325 mg Documented By: KESHA Baclofen (Baclofen 10 Mg Tablet) 10 mg PO BID PRN PRN Reason: Muscle Pain Last Admin: 09/14/24 20:44 Dose: 10 mg Documented By: KESHA Calcium Carbonate (Calcium Carbonate 750 Mg Tab.Chew) 750 mg PO Q4H PRN PRN Reason: Heartburn Ceftriaxone Sodium (Ceftriaxone Sodium 1 Gm Vial) 1 gm IVPUSH Q24H REPLACED BY [facility] Last Admin: 09/15/24 04:25 Dose: 1 gm Documented By: KESHA Cyclobenzaprine HCl (Cyclobenzaprine Hcl 5 Mg Tablet) 5 mg PO BID PRN PRN Reason: Muscle Spasm Dextrose (Dextrose 50 % 25 Gm/50 Ml Syringe) 25 gm IVPUSH Q15M PRN; Protocol PRN Reason: per Hypoglycemia Standing Ord. Enoxaparin Sodium (Enoxaparin Sodium 40 Mg/0.4 Ml Syringe) 40 mg SUBCUT Q24H REPLACED BY [facility] Last Admin: 09/15/24 08:04 Dose: 40 mg Documented By: ALEXIS Ferrous Sulfate (Ferrous Sulfate 324 Mg Tablet.) 324 mg PO DAILY@1230 REPLACED BY [facility] Last Admin: 09/14/24 12:13 Dose: 324 mg Documented By: BYRON Furosemide (Furosemide 20 Mg/2 Ml Vial) 20 mg IVPUSH DAILY REPLACED BY [facility]; Protocol Last Admin: 09/15/24 08:07 Dose: 20 mg Documented By: ALEXIS Glucose (Glucose Gel 15 Gm Gel..Gram.) 15 gm PO Q15M PRN; Protocol PRN Reason: per Hypoglycemia Standing Ord. Hydroxychloroquine Sulfate (Hydroxychloroquine Sulfate 200 Mg Tablet) 200 mg PO DAILY@0030 REPLACED BY [facility] Last Admin: 09/15/24 00:38 Dose: 200 mg Documented By: KESHA Doxycycline Hyclate 100 mg/ (Sodium Chloride) 250 mls @ 166.67 mls/hr IV Q12H REPLACED BY [facility] Last Infusion: 09/15/24 09:06 Dose: Infused Documented By: ALEXIS Insulin Glargine (Insulin Glargine,Hum.Rec.Anlog 100 Unit/Ml 10 Ml Vial) 44 unit SUBCUT DAILY REPLACED BY [facility] Last Admin: 09/15/24 08:06 Dose: 44 unit Documented By: ALEXIS Insulin Human Lispro (Insulin Lispro 100 Unit/Ml 3 Ml Vial) 0 unit SUBCUT QIDACHS REPLACED BY [facility]; Protocol Last Admin: 09/15/24 08:06 Dose: 4 unit Documented By: ALEXIS Loratadine (Loratadine 10 Mg Tablet) 10 mg PO BID@29,1229 PRN PRN Reason: ALLERGIES Last Admin: 09/15/24 00:38 Dose: 10 mg Documented By: KESHA Losartan Potassium (Losartan Potassium 25 Mg Tablet) 25 mg PO DAILY@29 REPLACED BY [facility]; Protocol Last Admin: 09/15/24 00:37 Dose: 25 mg Documented By: KESHA Magnesium Hydroxide (Milk Of Magnesia 30 Ml Oral.Susp) 30 ml PO DAILY PRN PRN Reason: Constipation Magnesium Oxide (Magnesium Oxide 400 Mg Tablet) 400 mg PO DAILY@29 REPLACED BY [facility] Last Admin: 09/15/24 00:37 Dose: 400 mg Documented By: KESHA Meclizine HCl (Meclizine Hcl 25 Mg Tablet) 25 mg PO TID PRN PRN Reason: Vertigo Montelukast Sodium (Montelukast Sodium 10 Mg Tablet) 10 mg PO BEDTIME@29 REPLACED BY [facility] Last Admin: 09/15/24 00:37 Dose: 10 mg Documented By: KESHA Morphine Sulfate (Morphine Sulfate Er 30 Mg Tablet.Er) 30 mg PO BID@ REPLACED BY [facility] Last Admin: 09/15/24 00:37 Dose: 30 mg Documented By: KESHA Multivitamins/Vitamin C (Multivitamin Tablet) 1 tab PO DAILY@0 REPLACED BY [facility] Last Admin: 09/14/24 12:13 Dose: 1 tab Documented By: BYRON Mupirocin (Mupirocin 2 % Oint 22 Gm Tube) 1 appl TOPICAL DAILY PRN; Protocol PRN Reason: AFFECTED AREA Nicotine (Nicotine 14 Mg Patch.Td24) 14 mg TRANSDERMA DAILY REPLACED BY [facility] Last Admin: 09/15/24 08:07 Dose: 14 mg Documented By: ALEXIS Nicotine Polacrilex (Nicotine Polacrilex Lozenge 2 Mg Lozenge) 2 mg BUCCAL Q2H PRN PRN Reason: Nicotine Cravings Last Admin: 09/14/24 09:07 Dose: 2 mg Documented By: BYRON Non-Formulary Medication (Tiotropium-Olodaterol [Stiolto Respimat]) 2 puff INHALE DAILY REPLACED BY [facility] Non-Formulary Medication (Linaclotide [Linzess]) 145 mcg PO DAILY@1230 REPLACED BY [facility] Nystatin (Nystatin Oral Susp 500,000 Unit/5 Ml Oral.Susp) 400,000 unit BUCCAL QID PRN; Protocol PRN Reason: MOUTH RINSE Last Admin: 09/15/24 00:45 Dose: 400,000 unit Documented By: KESHA Nystatin (Nystatin Cream 15 Gm Tube) 1 appl TOPICAL BID REPLACED BY [facility]; Protocol Omeprazole (Omeprazole 20 Mg Capsule.Dr) 20 mg PO DAILY@1230 REPLACED BY [facility] Last Admin: 09/14/24 12:13 Dose: 20 mg Documented By: BYRON Ondansetron HCl (Ondansetron Hcl 4 Mg/2 Ml Vial) 4 mg IVPUSH Q6H PRN PRN Reason: Nausea Last Admin: 09/14/24 16:22 Dose: 4 mg Documented By: BYRON Oxycodone HCl (Oxycodone Hcl Immed Release 5 Mg Tablet) 10 mg PO QID PRN PRN Reason: Pain, Severe (Pain Scale 7-10) Last Admin: 09/15/24 04:49 Dose: 10 mg Documented By: KESHA Oxycodone HCl (Oxycodone Hcl Immed Release 5 Mg Tablet) 5 mg PO Q6H PRN PRN Reason: Pain, Moderate(Pain Scale 4-6) Last Admin: 09/14/24 12:17 Dose: 5 mg Documented By: BYRON Pramipexole Dihydrochloride (Pramipexole Di-Hcl 0.25 Mg Tablet) 0.25 mg PO DAILY@1230 REPLACED BY [facility] Last Admin: 09/14/24 12:14 Dose: 0.25 mg Documented By: BYRON Pramipexole Dihydrochloride (Pramipexole Di-Hcl 0.25 Mg Tablet) 0.5 mg PO BEDTIME@0030 REPLACED BY [facility] Last Admin: 09/15/24 00:44 Dose: 0.5 mg Documented By: KESHA Pregabalin (Pregabalin 75 Mg Capsule) 75 mg PO BID@003,1229 REPLACED BY [facility] Last Admin: 09/15/24 00:38 Dose: 75 mg Documented By: KESHA Sodium Chloride (0.9 % Sodium Chloride Flush 3 Ml Syringe) 3 ml IVFLUSH QSHIFT REPLACED BY [facility] Last Admin: 09/15/24 08:05 Dose: 3 ml Documented By: ALXEIS Vitamin D (Cholecalciferol (Vitamin D3) 25 Mcg Tablet) 50 mcg PO DAILY@0030 REPLACED BY [facility] Last Admin: 09/15/24 00:37 Dose: 50 mcg Documented By: KESHA Labs 09/15/24 06:39 09/15/24 06:39 Labs: Laboratory Results - last 24 hr 09/13/24 09/14/24 09/14/24 15:29 10:58 16:12 MCV MCH MCHC RDW Plt Count MPV Absolute Nucleated RBC Nucleated RBC % (auto) Anion Gap Estim Creat Clear Calc Estimated GFR POC Glucose 293 H 225 H Random Glucose Calcium Respiratory Panel [place] See Note Adenovirus (Rapid PCR) Not Detected B.pert (TEM-PCR) Not Detected B.parapertussis DNA PCR Not Detected C. pneumoniae DNA (PCR) Not Detected Coronavirus OC43 (PCR) Not Detected Coronavirus HKU1 (PCR) Not Detected Coronavirus 229E (PCR) Not Detected Coronavirus NL63 (PCR) Not Detected Human Metapneumovir PCR Not Detected Influenza A (RT-PCR) Not Detected Influenza A (H1) PCR Not Detected Influ A (H1/09) PCR Not Detected Influenza A (H3) PCR Not Detected Influenza B (RT-PCR) Not Detected M. pneumoniae (PCR) Not Detected Parainfluenza 1 (PCR) Not Detected Parainfluenza 2 (PCR) Not Detected Parainfluenza 3 (PCR) Not Detected Parainfluenza 4 (PCR) Not Detected RSV (PCR) Not Detected Entero/Rhino (PCR) Not Detected SARS-CoV-2 RNA (RT-PCR) Not Detected 09/14/24 09/15/24 09/15/24 20:16 06:39 07:24 MCV 84.4 MCH 26.0 L MCHC 30.8 L RDW 16.8 H Plt Count 211 MPV 10.3 Absolute Nucleated RBC 0.000 Nucleated RBC % (auto) 0.0 Anion Gap 11 L Estim Creat Clear Calc 127.9 Estimated GFR > 60 POC Glucose 229 H 237 H Random Glucose 251 H Calcium 8.5 Respiratory Panel [place] Adenovirus (Rapid PCR) B.pert (TEM-PCR) B.parapertussis DNA PCR C. pneumoniae DNA (PCR) Coronavirus OC43 (PCR) Coronavirus HKU1 (PCR) Coronavirus 229E (PCR) Coronavirus NL63 (PCR) Human Metapneumovir PCR Influenza A (RT-PCR) Influenza A (H1) PCR Influ A (H1/09) PCR Influenza A (H3) PCR Influenza B (RT-PCR) M. pneumoniae (PCR) Parainfluenza 1 (PCR) Parainfluenza 2 (PCR) Parainfluenza 3 (PCR) Parainfluenza 4 (PCR) RSV (PCR) Entero/Rhino (PCR) SARS-CoV-2 RNA (RT-PCR) Microbiology Microbiology Results: Microbiology 09/14/24 10:30 Gram Stain - Final Sputum - Expectorated Sputum Culture - Preliminary 09/13/24 02:22 Blood Culture - Preliminary Blood - Venous No growth after 48 hours. 09/13/24 02:10 Blood Culture - Preliminary Blood - Venous No growth after 48 hours. Assessment and Plan (1) Dyspnea on exertion: Status: Acute Plan 64F PMH chronic hypoxic respiratory failure due to COPD and Sjogren syndrome with pulmonary hypertension on 4 L home O2, chronic opiate dependence, celiac disease, ulcerative colitis, Lin's esophagus, restless leg syndrome, TENISHA on CPAP presented with shortness of breaths Acute on chronic hypoxic respiratory failure due to COPD with acute decompensation and pneumonia and acute on chronic diastolic CHF Continue ceftriaxone doxycycline, MRSA swab negative, neagtive respiratory viral panel, pulm appreciated continue CPT, mucomyst, cxr tomorrow Continue Lasix Acute lactic acidosis Due to metformin hypoxia not sepsis Hypertension Amlodipine, losartan Sjogren's Continue hydroxychloroquine Diabetes Basal bolus insulin Chronic pain on opiates Continue MSIR and oxycodone TENISHA CPAP at night DVT prophylaxis with Lovenox Full Code reason for continued hospitalization: Shortness breath, hypoxia Quality Stroke Does the patient have a stroke diagnosis?: No VTE Prior VTE?: No VTE Risk Level:: Medical - moderate - high VTE Device Contraindication: Treatment Not Indicated VTE Drug Contraindication: N/A - Med Ordered
[2024-09-15 11:26] LABS: Glucose, Whole Blood 239 mg/dL (60-115)
[2024-09-15] MEDS: Albuterol Sulfate (0.083%) 2.5 MG/3 ML VIAL.NEB INHALE ×3 (11:30→23:18)
[2024-09-15] MEDS: oxyCODONE HCl Immed Release 5 MG TABLET PO ×2 (11:56→20:22)
[2024-09-15] MEDS: Ferrous Sulfate 324 MG TABLET.DR PO (12:02)
[2024-09-15 16:25] LABS: Glucose, Whole Blood 136 mg/dL (60-115)
[2024-09-15 19:58] LABS: Glucose, Whole Blood 184 mg/dL (60-115)
[2024-09-16] VITALS (10 sets, daily range): BP systolic 112–159; BP diastolic 52–85; PULSE 70–95; RESP 16–20; TEMP 36.3–37.2; O2SAT 91–95; BMI 31.4
[2024-09-16] MEDS: Morphine Sulfate ER 30 MG TABLET.ER PO ×3 (01:00→23:46)
[2024-09-16 03:01] LABS: Glucose, Whole Blood 228 mg/dL (60-115)
[2024-09-16] MEDS: Nystatin Oral Susp 500,000 UNIT/5 ML ORAL.SUSP 400000 UNIT BUCCAL (04:17)
[2024-09-16] MEDS: oxyCODONE HCl Immed Release 5 MG TABLET 10 MG PO ×4 (06:23→21:01)
[2024-09-16 07:04] LABS: Anion Gap 14 (12-20); Blood Urea Nitrogen 14 mg/dL (9-16); Calcium 8.7 mg/dL (8.4-10.2); Carbon Dioxide 30 mmol/L (22-29); Chloride 99 mmol/L (96-108); Creatinine Clr Calc Pharmacy 122.7; Estimated Glomerular Filt Rate > 60; Potassium 4.6 mmol/L (3.3-5.1); Sodium 138 mmol/L (135-145)
[2024-09-16 07:11] LABS: Hematocrit 46.3 % (37.0-47.0); Hemoglobin 14.4 g/dl (12.0-16.0); Mean Corpuscular HGB Conc 31.1 g/dl (31.0-35.0); Mean Corpuscular Hemoglobin 26.3 pg (27.0-33.0); Mean Corpuscular Volume 84.5 fL (80.0-98.0); NRBC Abs Auto 0.000 X10*3/uL (0.0-0.012); NRBC Pct Auto 0.0 /100WBC (0.0-0.2); Platelet Count 240 X10*3/uL (160-400); Red Blood Count 5.48 X10*6/uL (4.20-5.50); White Blood Count 10.4 X10*3/uL (4.8-10.8)
[2024-09-16 08:50] LABS: Glucose, Whole Blood 342 mg/dL (60-115)
[2024-09-16] MEDS: Insulin Glargine,Hum.rec.anlog 100 UNIT/ML 10 ML VIAL 44 UNIT SUBCUT (09:05)
[2024-09-16] MEDS: Nicotine 14 MG PATCH.TD24 TRANSDERMA (09:06)
[2024-09-16] MEDS: 0.9 % Sodium Chloride Flush 3 ML SYRINGE IVFLUSH ×3 (09:07→23:48)
--- NOTE | 2024-09-16 09:56 | P.PNIM_ITS ---
Subjective Subjective Date of Service: 09/16/24 Interval History: had a rough night, coughing up sputum Neurologic Neurologic: Denies confusion Psychiatric Psychiatric: Denies confusion Physical Exam 2 Vital Signs: Vital Signs: Last Vital Signs Temp 97.3 F 09/16/24 07:05 Pulse 72 09/16/24 07:05 Resp 17 09/16/24 07:05 BP 126/65 09/16/24 07:05 Pulse Ox 93 09/16/24 07:05 O2 Del Method Nasal Cannula 09/16/24 07:05 O2 Flow Rate 4 09/16/24 07:05 Oxygen Flow Rate 4 09/13/24 01:47 BMI result Body Mass Index 31.4 Const: General: No confusion Nutritional Appearance: obese O rientation/consciousness: No confusion HEENT: Head: Yes atraumatic Eyes: General: appearance normal, both eyes and all related structures S clerae: sclerae normal EOM: EOMs intact bilaterally Neck: Neck: Yes supple Lymphatic: no lymphadenopathy noted Resp: Effort & Inspection: normal respiratory effort and Actively coughing Quality: productive Auscultation: rhonchi, wheezes and diminished lung sounds Cardio: Rate: regular rate Rhythm: regular rhythm Heart sounds: no gallops, no murmurs and no rubs Skin: General skin exam: other ( warm) Neuro: General: No confusion Extrem: General: No clubbing, No cyanosis and Yes edema (Left lower extremity) Objective Data Active Medications Acetylcysteine (Acetylcysteine 10 % 400 Mg/4 Ml Vial) 400 mg INHALE Q6H [facility] Last Admin: 09/16/24 04:54 Dose: Not Given Documented By: JOSY Non-Admin Reason: Patient Asleep Albuterol Sulfate (Albuterol Sulfate (0.083%) 2.5 Mg/3 Ml Vial.Neb) 2.5 mg INHALE Q4H PRN PRN Reason: Wheezing Last Admin: 09/15/24 23:18 Dose: 2.5 mg Documented By: JOSY Amlodipine Besylate (Amlodipine Besylate 10 Mg Tablet) 10 mg PO DAILY@0030 [facility]; Protocol Last Admin: 09/16/24 01:01 Dose: 10 mg Documented By: PEYMAN Aspirin (Aspirin 325 Mg Tablet) 325 mg PO BID@0030,1230 [facility] Last Admin: 09/16/24 00:59 Dose: 325 mg Documented By: PEYMAN Baclofen (Baclofen 10 Mg Tablet) 10 mg PO BID PRN PRN Reason: Muscle Pain Last Admin: 09/16/24 01:17 Dose: 10 mg Documented By: PEYMAN Calcium Carbonate (Calcium Carbonate 750 Mg Tab.Chew) 750 mg PO Q4H PRN PRN Reason: Heartburn Ceftriaxone Sodium (Ceftriaxone Sodium 1 Gm Vial) 1 gm IVPUSH Q24H [facility] Last Admin: 09/16/24 04:17 Dose: 1 gm Documented By: PEYMAN Cyclobenzaprine HCl (Cyclobenzaprine Hcl 5 Mg Tablet) 5 mg PO BID PRN PRN Reason: Muscle Spasm Dextrose (Dextrose 50 % 25 Gm/50 Ml Syringe) 25 gm IVPUSH Q15M PRN; Protocol PRN Reason: per Hypoglycemia Standing Ord. Enoxaparin Sodium (Enoxaparin Sodium 40 Mg/0.4 Ml Syringe) 40 mg SUBCUT Q24H [facility] Last Admin: 09/16/24 09:06 Dose: 40 mg Documented By: ALEXIS Ferrous Sulfate (Ferrous Sulfate 324 Mg Tablet.Dr) 324 mg PO DAILY@1230 [facility] Last Admin: 09/15/24 12:02 Dose: 324 mg Documented By: ALEXIS Furosemide (Furosemide 20 Mg/2 Ml Vial) 20 mg IVPUSH DAILY [facility]; Protocol Last Admin: 09/16/24 09:22 Dose: Not Given Documented By: ALEXIS Non-Admin Reason: No Access Glucose (Glucose Gel 15 Gm Gel..Gram.) 15 gm PO Q15M PRN; Protocol PRN Reason: per Hypoglycemia Standing Ord. Hydroxychloroquine Sulfate (Hydroxychloroquine Sulfate 200 Mg Tablet) 200 mg PO DAILY@0030 [facility] Last Admin: 09/16/24 01:01 Dose: 200 mg Documented By: PEYMAN Doxycycline Hyclate 100 mg/ (Sodium Chloride) 250 mls @ 166.67 mls/hr IV Q12H [facility] Last Infusion: 09/16/24 06:18 Dose: Infused Documented By: PEYMAN Insulin Glargine (Insulin Glargine,Hum.Rec.Anlog 100 Unit/Ml 10 Ml Vial) 44 unit SUBCUT DAILY [facility] Last Admin: 09/16/24 09:05 Dose: 44 unit Documented By: ALEXIS Insulin Human Lispro (Insulin Lispro 100 Unit/Ml 3 Ml Vial) 0 unit SUBCUT QIDACHS [facility]; Protocol Last Admin: 09/16/24 09:05 Dose: 1 unit Documented By: ALEXIS Loratadine (Loratadine 10 Mg Tablet) 10 mg PO BID@29,1230 PRN PRN Reason: ALLERGIES Last Admin: 09/15/24 00:38 Dose: 10 mg Documented By: KESHA Losartan Potassium (Losartan Potassium 25 Mg Tablet) 25 mg PO DAILY@003 [facility]; Protocol Last Admin: 09/16/24 01:01 Dose: 25 mg Documented By: PEYMAN Magnesium Hydroxide (Milk Of Magnesia 30 Ml Oral.Susp) 30 ml PO DAILY PRN PRN Reason: Constipation Magnesium Oxide (Magnesium Oxide 400 Mg Tablet) 400 mg PO DAILY@29 [facility] Last Admin: 09/16/24 00:59 Dose: 400 mg Documented By: PEYMAN Meclizine HCl (Meclizine Hcl 25 Mg Tablet) 25 mg PO TID PRN PRN Reason: Vertigo Montelukast Sodium (Montelukast Sodium 10 Mg Tablet) 10 mg PO BEDTIME@29 [facility] Last Admin: 09/16/24 01:01 Dose: 10 mg Documented By: PEYMAN Morphine Sulfate (Morphine Sulfate Er 30 Mg Tablet.Er) 30 mg PO BID@29,1229 [facility] Last Admin: 09/16/24 01:00 Dose: 30 mg Documented By: PEYMAN Multivitamins/Vitamin C (Multivitamin Tablet) 1 tab PO DAILY@1229 [facility] Last Admin: 09/15/24 12:02 Dose: 1 tab Documented By: ALEXIS Mupirocin (Mupirocin 2 % Oint 22 Gm Tube) 1 appl TOPICAL DAILY PRN; Protocol PRN Reason: AFFECTED AREA Nicotine (Nicotine 14 Mg Patch.Td24) 14 mg TRANSDERMA DAILY [facility] Last Admin: 09/16/24 09:06 Dose: 14 mg Documented By: ALEXIS Nicotine Polacrilex (Nicotine Polacrilex Lozenge 2 Mg Lozenge) 2 mg BUCCAL Q2H PRN PRN Reason: Nicotine Cravings Last Admin: 09/14/24 09:07 Dose: 2 mg Documented By: BYRON Nystatin (Nystatin Oral Susp 500,000 Unit/5 Ml Oral.Susp) 400,000 unit BUCCAL QID PRN; Protocol PRN Reason: MOUTH RINSE Last Admin: 09/16/24 04:17 Dose: 400,000 unit Documented By: PEYMAN Nystatin (Nystatin Cream 15 Gm Tube) 1 appl TOPICAL BID [facility]; Protocol Last Admin: 09/16/24 09:06 Dose: 1 appl Documented By: ALEXIS Omeprazole (Omeprazole 20 Mg Capsule.Dr) 20 mg PO DAILY@1230 [facility] Last Admin: 09/15/24 12:02 Dose: 20 mg Documented By: ALEXIS Ondansetron HCl (Ondansetron Hcl 4 Mg/2 Ml Vial) 4 mg IVPUSH Q6H PRN PRN Reason: Nausea Last Admin: 09/15/24 16:54 Dose: 4 mg Documented By: CHANDRAKANT Oxycodone HCl (Oxycodone Hcl Immed Release 5 Mg Tablet) 10 mg PO QID PRN PRN Reason: Pain, Severe (Pain Scale 7-10) Last Admin: 09/16/24 06:23 Dose: 10 mg Documented By: PEYMAN Oxycodone HCl (Oxycodone Hcl Immed Release 5 Mg Tablet) 5 mg PO Q6H PRN PRN Reason: Pain, Moderate(Pain Scale 4-6) Last Admin: 09/15/24 20:22 Dose: 5 mg Documented By: PEYMAN Pramipexole Dihydrochloride (Pramipexole Di-Hcl 0.25 Mg Tablet) 0.25 mg PO DAILY@1230 [facility] Last Admin: 09/15/24 12:02 Dose: 0.25 mg Documented By: ALEXIS Pramipexole Dihydrochloride (Pramipexole Di-Hcl 0.25 Mg Tablet) 0.5 mg PO BEDTIME@0030 [facility] Last Admin: 09/16/24 01:01 Dose: 0.5 mg Documented By: PEYMAN Pregabalin (Pregabalin 75 Mg Capsule) 75 mg PO BID@0030,1230 [facility] Last Admin: 09/16/24 01:00 Dose: 75 mg Documented By: PEYMAN Sodium Chloride (0.9 % Sodium Chloride Flush 3 Ml Syringe) 3 ml IVFLUSH QSHIFT [facility] Last Admin: 09/16/24 09:07 Dose: 3 ml Documented By: ALEXIS Vitamin D (Cholecalciferol (Vitamin D3) 25 Mcg Tablet) 50 mcg PO DAILY@0030 [facility] Last Admin: 09/16/24 01:01 Dose: 50 mcg Documented By: PEYMAN Labs 09/16/24 06:17 09/16/24 06:17 Labs: Laboratory Results - last 24 hr 09/15/24 09/15/24 09/15/24 11:21 16:16 19:55 MCV MCH MCHC RDW Plt Count MPV Absolute Nucleated RBC Nucleated RBC % (auto) Anion Gap Estim Creat Clear Calc Estimated GFR POC Glucose 239 H 136 H 184 H Random Glucose Calcium 09/16/24 09/16/24 09/16/24 02:57 06:17 08:46 MCV 84.5 MCH 26.3 L MCHC 31.1 RDW 16.7 H Plt Count 240 MPV 10.3 Absolute Nucleated RBC 0.000 Nucleated RBC % (auto) 0.0 Anion Gap 14 Estim Creat Clear Calc 122.7 Estimated GFR > 60 POC Glucose 228 H 342 H Random Glucose 315 H Calcium 8.7 Microbiology Microbiology Results: Microbiology 09/14/24 10:30 Gram Stain - Final Sputum - Expectorated Sputum Culture - Final Assessment and Plan (1) Dyspnea on exertion: Status: Acute Plan 64F PMH chronic hypoxic respiratory failure due to COPD and Sjogren syndrome with pulmonary hypertension on 4 L home O2, chronic opiate dependence, celiac disease, ulcerative colitis, Lin's esophagus, restless leg syndrome, TENISHA on CPAP presented with shortness of breaths Acute on chronic hypoxic respiratory failure due to COPD with acute decompensation and pneumonia and acute on chronic diastolic CHF Continue ceftriaxone doxycycline, MRSA swab negative, neagtive respiratory viral panel, pulm appreciated continue CPT, mucomyst, cxr today Continue Lasix Acute lactic acidosis Due to metformin hypoxia not sepsis Hypertension Amlodipine, losartan Sjogren's Continue hydroxychloroquine Diabetes Basal bolus insulin Chronic pain on opiates Continue MSIR and oxycodone TENISHA CPAP at night DVT prophylaxis with Lovenox Full Code reason for continued hospitalization: Shortness breath, hypoxia Quality Stroke Does the patient have a stroke diagnosis?: No VTE Prior VTE?: No VTE Risk Level:: Medical - moderate - high VTE Device Contraindication: Treatment Not Indicated VTE Drug Contraindication: N/A - Med Ordered
[2024-09-16] MEDS: Acetylcysteine 10 % 400 MG/4 ML VIAL INHALE ×3 (10:38→23:08)
[2024-09-16 11:16] LABS: Glucose, Whole Blood 132 mg/dL (60-115)
[2024-09-16] MEDS: oxyCODONE HCl Immed Release 5 MG TABLET PO (11:19)
[2024-09-16] MEDS: Ferrous Sulfate 324 MG TABLET.DR PO (13:42)
[2024-09-16 15:58] LABS: Glucose, Whole Blood 151 mg/dL (60-115)
[2024-09-16 20:21] LABS: Glucose, Whole Blood 179 mg/dL (60-115)
[2024-09-17] VITALS (7 sets, daily range): BP systolic 117–152; BP diastolic 62–79; PULSE 73–81; RESP 12–18; TEMP 36–36.9; O2SAT 90–95; BMI 31.6
[2024-09-17 01:14] LABS: Strep Pneumo Ag urine Not Detected (Not Detected)
[2024-09-17] MEDS: Albuterol Sulfate (0.083%) 2.5 MG/3 ML VIAL.NEB INHALE (01:20)
[2024-09-17] MEDS: oxyCODONE HCl Immed Release 5 MG TABLET 10 MG PO ×3 (03:22→17:01)
[2024-09-17 07:33] LABS: Glucose, Whole Blood 176 mg/dL (60-115)
[2024-09-17] MEDS: 0.9 % Sodium Chloride Flush 3 ML SYRINGE IVFLUSH ×3 (07:51→21:29)
[2024-09-17] MEDS: Insulin Glargine,Hum.rec.anlog 100 UNIT/ML 10 ML VIAL 44 UNIT SUBCUT (07:51)
[2024-09-17] MEDS: Furosemide 20 MG/2 ML VIAL IVPUSH (07:51)
[2024-09-17] MEDS: Nicotine 14 MG PATCH.TD24 TRANSDERMA (07:51)
[2024-09-17] MEDS: oxyCODONE HCl Immed Release 5 MG TABLET PO ×2 (07:54→21:27)
--- NOTE | 2024-09-17 09:53 | P.PNIM_ITS ---
Subjective Subjective Date of Service: 09/17/24 Interval History: still sob Neurologic Neurologic: Denies confusion Psychiatric Psychiatric: Denies confusion Physical Exam 2 Vital Signs: Vital Signs: Last Vital Signs Temp 97.6 F 09/17/24 07:17 Pulse 73 09/17/24 07:17 Resp 18 09/17/24 07:17 BP 152/79 H 09/17/24 07:51 Pulse Ox 92 09/17/24 07:17 O2 Del Method Nasal Cannula 09/17/24 07:17 O2 Flow Rate 4 09/17/24 07:17 Oxygen Flow Rate 4 09/13/24 01:47 BMI result Body Mass Index 31.6 Const: General: No confusion Nutritional Appearance: obese O rientation/consciousness: No confusion HEENT: Head: Yes atraumatic Eyes: General: appearance normal, both eyes and all related structures S clerae: sclerae normal EOM: EOMs intact bilaterally Neck: Neck: Yes supple Lymphatic: no lymphadenopathy noted Resp: Effort & Inspection: normal respiratory effort and Actively coughing Quality: productive Auscultation: rhonchi, wheezes and diminished lung sounds Cardio: Rate: regular rate Rhythm: regular rhythm Heart sounds: no gallops, no murmurs and no rubs Skin: General skin exam: other ( warm) Neuro: General: No confusion Extrem: General: No clubbing, No cyanosis and Yes edema (Left lower extremity) Objective Data Active Medications Acetylcysteine (Acetylcysteine 10 % 400 Mg/4 Ml Vial) 400 mg INHALE Q6H [facility] Last Admin: 09/17/24 06:06 Dose: Not Given Documented By: DANIEL Non-Admin Reason: See Note Albuterol Sulfate (Albuterol Sulfate (0.083%) 2.5 Mg/3 Ml Vial.Neb) 2.5 mg INHALE Q4H PRN PRN Reason: Wheezing Last Admin: 09/17/24 01:20 Dose: 2.5 mg Documented By: JOSY Amlodipine Besylate (Amlodipine Besylate 10 Mg Tablet) 10 mg PO DAILY@0030 [facility]; Protocol Last Admin: 09/16/24 23:47 Dose: 10 mg Documented By: NURY Aspirin (Aspirin 325 Mg Tablet) 325 mg PO BID@0030,1230 [facility] Last Admin: 09/16/24 23:47 Dose: 325 mg Documented By: NURY Baclofen (Baclofen 10 Mg Tablet) 10 mg PO BID PRN PRN Reason: Muscle Pain Last Admin: 09/16/24 11:21 Dose: 10 mg Documented By: ALEXIS Calcium Carbonate (Calcium Carbonate 750 Mg Tab.Chew) 750 mg PO Q4H PRN PRN Reason: Heartburn Ceftriaxone Sodium (Ceftriaxone Sodium 1 Gm Vial) 1 gm IVPUSH Q24H [facility] Last Admin: 09/17/24 03:21 Dose: 1 gm Documented By: NURY Cyclobenzaprine HCl (Cyclobenzaprine Hcl 5 Mg Tablet) 5 mg PO BID PRN PRN Reason: Muscle Spasm Dextrose (Dextrose 50 % 25 Gm/50 Ml Syringe) 25 gm IVPUSH Q15M PRN; Protocol PRN Reason: per Hypoglycemia Standing Ord. Doxycycline Monohydrate (Doxycycline Monohydrate 100 Mg Capsule) 100 mg PO Q12H [facility] Last Admin: 09/17/24 03:21 Dose: 100 mg Documented By: NURY Enoxaparin Sodium (Enoxaparin Sodium 40 Mg/0.4 Ml Syringe) 40 mg SUBCUT Q24H [facility] Last Admin: 09/17/24 07:50 Dose: 40 mg Documented By: DARÍO Ferrous Sulfate (Ferrous Sulfate 324 Mg Tablet.Dr) 324 mg PO DAILY@1230 [facility] Last Admin: 09/16/24 13:42 Dose: 324 mg Documented By: SUZANNE Furosemide (Furosemide 20 Mg/2 Ml Vial) 20 mg IVPUSH DAILY [facility]; Protocol Last Admin: 09/17/24 07:51 Dose: 20 mg Documented By: DARÍO Glucose (Glucose Gel 15 Gm Gel..Gram.) 15 gm PO Q15M PRN; Protocol PRN Reason: per Hypoglycemia Standing Ord. Hydroxychloroquine Sulfate (Hydroxychloroquine Sulfate 200 Mg Tablet) 200 mg PO DAILY@0030 [facility] Last Admin: 09/16/24 23:47 Dose: 200 mg Documented By: NURY Insulin Glargine (Insulin Glargine,Hum.Rec.Anlog 100 Unit/Ml 10 Ml Vial) 44 unit SUBCUT DAILY [facility] Last Admin: 09/17/24 07:51 Dose: 44 unit Documented By: DARÍO Insulin Human Lispro (Insulin Lispro 100 Unit/Ml 3 Ml Vial) 0 unit SUBCUT QIDACHS [facility]; Protocol Last Admin: 09/17/24 07:51 Dose: 2 unit Documented By: DARÍO Loratadine (Loratadine 10 Mg Tablet) 10 mg PO BID@29,0 PRN PRN Reason: ALLERGIES Last Admin: 09/16/24 23:47 Dose: 10 mg Documented By: NURY Losartan Potassium (Losartan Potassium 25 Mg Tablet) 25 mg PO DAILY@003 [facility]; Protocol Last Admin: 09/16/24 23:47 Dose: 25 mg Documented By: NURY Magnesium Hydroxide (Milk Of Magnesia 30 Ml Oral.Susp) 30 ml PO DAILY PRN PRN Reason: Constipation Magnesium Oxide (Magnesium Oxide 400 Mg Tablet) 400 mg PO DAILY@29 [facility] Last Admin: 09/16/24 23:46 Dose: 400 mg Documented By: NURY Meclizine HCl (Meclizine Hcl 25 Mg Tablet) 25 mg PO TID PRN PRN Reason: Vertigo Montelukast Sodium (Montelukast Sodium 10 Mg Tablet) 10 mg PO BEDTIME@29 [facility] Last Admin: 09/16/24 23:46 Dose: 10 mg Documented By: NURY Morphine Sulfate (Morphine Sulfate Er 30 Mg Tablet.Er) 30 mg PO BID@ [facility] Last Admin: 09/16/24 23:46 Dose: 30 mg Documented By: NURY Multivitamins/Vitamin C (Multivitamin Tablet) 1 tab PO DAILY@1230 [facility] Last Admin: 09/16/24 13:42 Dose: 1 tab Documented By: SUZANNE Mupirocin (Mupirocin 2 % Oint 22 Gm Tube) 1 appl TOPICAL DAILY PRN; Protocol PRN Reason: AFFECTED AREA Nicotine (Nicotine 14 Mg Patch.Td24) 14 mg TRANSDERMA DAILY [facility] Last Admin: 09/17/24 07:51 Dose: 14 mg Documented By: DARÍO Nicotine Polacrilex (Nicotine Polacrilex Lozenge 2 Mg Lozenge) 2 mg BUCCAL Q2H PRN PRN Reason: Nicotine Cravings Last Admin: 09/14/24 09:07 Dose: 2 mg Documented By: BYRON Nystatin (Nystatin Oral Susp 500,000 Unit/5 Ml Oral.Susp) 400,000 unit BUCCAL QID PRN; Protocol PRN Reason: MOUTH RINSE Last Admin: 09/16/24 04:17 Dose: 400,000 unit Documented By: PEYMAN Nystatin (Nystatin Cream 15 Gm Tube) 1 appl TOPICAL BID [facility]; Protocol Last Admin: 09/17/24 07:52 Dose: 1 appl Documented By: DARÍO Omeprazole (Omeprazole 20 Mg Capsule.Dr) 20 mg PO DAILY@1230 [facility] Last Admin: 09/16/24 13:42 Dose: 20 mg Documented By: SUZANNE Ondansetron HCl (Ondansetron Hcl 4 Mg/2 Ml Vial) 4 mg IVPUSH Q6H PRN PRN Reason: Nausea Last Admin: 09/15/24 16:54 Dose: 4 mg Documented By: CHANDRKAANT Oxycodone HCl (Oxycodone Hcl Immed Release 5 Mg Tablet) 10 mg PO QID PRN PRN Reason: Pain, Severe (Pain Scale 7-10) Last Admin: 09/17/24 03:22 Dose: 10 mg Documented By: NURY Oxycodone HCl (Oxycodone Hcl Immed Release 5 Mg Tablet) 5 mg PO Q6H PRN PRN Reason: Pain, Moderate(Pain Scale 4-6) Last Admin: 09/17/24 07:54 Dose: 5 mg Documented By: DARÍO Pramipexole Dihydrochloride (Pramipexole Di-Hcl 0.25 Mg Tablet) 0.25 mg PO DAILY@1230 [facility] Last Admin: 09/16/24 13:42 Dose: 0.25 mg Documented By: SUZANNE Pramipexole Dihydrochloride (Pramipexole Di-Hcl 0.25 Mg Tablet) 0.5 mg PO BEDTIME@003 [facility] Last Admin: 09/16/24 23:47 Dose: 0.5 mg Documented By: NURY Pregabalin (Pregabalin 75 Mg Capsule) 75 mg PO BID@0030,1230 [facility] Last Admin: 09/16/24 23:48 Dose: 75 mg Documented By: NURY Sodium Chloride (0.9 % Sodium Chloride Flush 3 Ml Syringe) [facility] Last Admin: 09/17/24 07:51 Dose: 3 ml Documented By: DARÍO Vitamin D (Cholecalciferol (Vitamin D3) 25 Mcg Tablet) 50 mcg PO DAILY@0030 [facility] Last Admin: 09/16/24 23:47 Dose: 50 mcg Documented By: NURY Labs 09/16/24 06:17 09/16/24 06:17 Labs: Laboratory Results - last 24 hr 09/14/24 09/16/24 09/16/24 10:30 11:08 15:53 POC Glucose 132 H 151 H Ur Strep pneumoniae Ag Not Detected 09/16/24 09/17/24 20:18 07:15 POC Glucose 179 H 176 H Ur Strep pneumoniae Ag Microbiology Microbiology Results: Microbiology 09/14/24 10:30 Gram Stain - Final Sputum - Expectorated Sputum Culture - Final Assessment and Plan (1) Dyspnea on exertion: Status: Acute Plan 64F PMH chronic hypoxic respiratory failure due to COPD and Sjogren syndrome with pulmonary hypertension on 4 L home O2, chronic opiate dependence, celiac disease, ulcerative colitis, Lin's esophagus, restless leg syndrome, TENISHA on CPAP presented with shortness of breaths Acute on chronic hypoxic respiratory failure due to COPD with acute decompensation and pneumonia and acute on chronic diastolic CHF Continue ceftriaxone doxycycline, MRSA swab negative, neagtive respiratory viral panel, pulm appreciated continue CPT Continue Lasix Acute lactic acidosis Due to metformin hypoxia not sepsis Hypertension Amlodipine, losartan Sjogren's Continue hydroxychloroquine Diabetes Basal bolus insulin Chronic pain on opiates Continue MSIR and oxycodone TENISHA CPAP at night DVT prophylaxis with Lovenox Full Code reason for continued hospitalization: Shortness breath, hypoxia Quality Stroke Does the patient have a stroke diagnosis?: No VTE Prior VTE?: No VTE Risk Level:: Medical - moderate - high VTE Device Contraindication: Treatment Not Indicated VTE Drug Contraindication: N/A - Med Ordered
--- NOTE | 2024-09-17 10:22 | MHC.CM.PN ---
Per ROUNDS discussion, Patient is not yet medically cleared for dc (Hypoxia); home is the goal and CM will continue to follow.
[2024-09-17 11:06] LABS: Glucose, Whole Blood 237 mg/dL (60-115)
[2024-09-17] MEDS: Ferrous Sulfate 324 MG TABLET.DR PO (11:54)
[2024-09-17] MEDS: Morphine Sulfate ER 30 MG TABLET.ER PO (11:56)
[2024-09-17 16:20] LABS: Glucose, Whole Blood 178 mg/dL (60-115)
[2024-09-17 21:21] LABS: Glucose, Whole Blood 265 mg/dL (60-115)
[2024-09-18 00:09] VITALS: BP 131/71; PULSE 75; RESP 12; TEMP 36.7; O2SAT 94
[2024-09-18] MEDS: oxyCODONE HCl Immed Release 5 MG TABLET 10 MG PO ×2 (01:25→08:23)
[2024-09-18] MEDS: Morphine Sulfate ER 30 MG TABLET.ER PO ×2 (01:26→13:07)
[2024-09-18 01:31] VITALS: BP 136/71
[2024-09-18 03:22] LABS: Glucose, Whole Blood 201 mg/dL (60-115)
[2024-09-18 03:39] VITALS: BP 122/58; PULSE 71; RESP 12; TEMP 36.4; O2SAT 93
[2024-09-18 06:00] VITALS: BMI 31.3
[2024-09-18 07:20] LABS: Glucose, Whole Blood 288 mg/dL (60-115)
[2024-09-18 08:00] VITALS: BP 133/71; PULSE 66; RESP 20; TEMP 36.2; O2SAT 96
[2024-09-18] MEDS: Insulin Glargine,Hum.rec.anlog 100 UNIT/ML 10 ML VIAL 44 UNIT SUBCUT (08:17)
[2024-09-18] MEDS: Nicotine 14 MG PATCH.TD24 TRANSDERMA (08:17)
[2024-09-18] MEDS: Furosemide 20 MG/2 ML VIAL IVPUSH (08:18)
--- NOTE | 2024-09-18 09:32 | MHC.CM.PN ---
Patient medically cleared for dc home self care via private transport.
--- NOTE | 2024-09-18 09:38 | PM.DS ---
DS: Providers Provider Date of Service: 09/18/24 Date of admission: 09/13/24 05:52 Date of discharge: 09/18/24 Primary care physician: Dottie Douglass MD Consults: 09/13/24 10:52 Consult to Pulmonology Routine Consulting Provider: [facility] Reason for consultation: Occlusion of the left lower lobe bronchus with complete atelectasis of the DS: Diagnosis Discharge Diagnosis (1) Dyspnea on exertion: Status: Acute DS: Summary Hospital Course Hospital Course: from initial hpi: 64-year-old female with a past medical history significant for oxygen-dependent COPD, insulin-dependent diabetes, Sjogren's, fibromyalgia, chronic opioid use, celiac disease, ulcerative colitis, Lin's esophagus, restless leg syndrome, TENISHA on CPAP, class 1 obesity, ?left leg lymphedema, and new diagnosis cardiomyopathy, who presented to the ED due to chest pain and shortness of breath worsening over the past 7 days, significantly worsening over the past 24 hours. The patient reports that she has had multiple COPD exacerbations since January. She usually uses oxygen with ambulation now requiring at rest. She also describes substernal chest pain and a productive cough with clear sputum. She denies any fever. She has had left lower extremity edema for the past few months significantly worse than right lower extremity, has had multiple negative DVT studies. Since arriving to the ED her chest pain has improved significantly. She has received 40 mg IV Lasix due to possible new CHF with significant urine output. She denies any dysuria, frequency or urgency of urination prior to the Lasix. hospital course: Patient was admitted for acute on chronic hypoxic respiratory failure due to COPD with acute decompensation pneumonia with acute on chronic diastolic CHF. Was treated ceftriaxone doxycycline, Mucomyst, chest physical therapy, so also diuresis with Lasix. On discharge we will continue Ceftin and doxycycline for 5 more days, prednisone for 5 more days and will be started on maintenance Lasix. For acute lactic acidosis this was due to metformin hypoxia not sepsis. Hypertension was given amlodipine and losartan. For Sjogren's was continued on Plaquenil. For diabetes was continued on basal bolus insulin. For chronic pain continued on chronic opiates. For TENISHA uses CPAP at night. Patient is advised to stop smoking and will follow up with Pulmonary as outpatient. Time Attestation Discharge Coordination Time (in mins): 33 Quality: Safe Use of Opioids Does Pt have an Active Cancer Diagnosis on the Problem List?: No Quality: Stroke Does the patient have a stroke diagnosis?: No Physical Exam Exam: Exam: General: AO X 3, no acute distress Resp: CTA bilateral, no accessory muscles used CVS: S1,S2,RRR GI: soft, non tender, non distended Neuro: motor grossly intact, alert Psych: appropriate affect, appropriate insight Vital Signs: Vital Signs: Last Vital Signs Temp 97.1 F 09/18/24 08:00 Pulse 66 09/18/24 08:00 Resp 20 09/18/24 08:00 BP 133/71 09/18/24 08:00 Pulse Ox 96 09/18/24 08:00 O2 Del Method Nasal Cannula 09/18/24 08:00 O2 Flow Rate 4 09/18/24 08:00 Oxygen Flow Rate 4 09/13/24 01:47 BMI result Body Mass Index 31.3 DS: Data Data Completed and Pending Completed studies during hospitalization [Text1]: Procedures Assistance with Respiratory Ventilation, Less than 24 Consecutive Hours, Continuous Positive Airway Pressure (07/27/24) Labs on day of discharge: Laboratory Results - last 24 hr 09/17/24 09/17/24 09/17/24 10:57 16:10 21:08 POC Glucose 237 H 178 H 265 H 09/18/24 09/18/24 03:18 07:15 POC Glucose 201 H 288 H Discharge Plan Discharge Anticipated Discharge Date/Time: 09/18/24 09:19 Patient Disposition: Home, Self-Care Discharge Diagnosis: pna Referrals: Dottie Douglass MD [Primary Care Provider, Endocrinology] - 1 Week Discharge Medications: New doxycycline monohydrate 100 mg Capsule 100 mg PO Q12H Qty: 10 0RF prednisone 20 mg tablet 40 mg PO DAILY Qty: 10 0RF cefuroxime axetil 500 mg tablet 500 mg PO BID Qty: 10 0RF furosemide [Lasix] 40 mg tablet 40 mg PO DAILY Qty: 90 0RF Continued (DME) blood-glucose meter Kit See Rx Instructions .Route Qty: 1 0RF Rx Instructions: 4 times daily to check blood glucose cyclobenzaprine 5 mg tablet 5 mg PO BID PRN (Reason: Pain) 90 Days Qty: 180 3RF (DME) Oxygen Home Use Kit See Rx Instructions .Route Qty: 1 3RF Rx Instructions: 2L continuous mwyuegt-xjsgqztcok-XVF-[id number] [id number] mg capsule 1 cap PO QID PRN (Reason: headache) 28 Days Qty: 28 0RF oxycodone 10 mg tablet 10 mg PO QID PRN (Reason: pain) 28 Days Qty: 112 0RF morphine 30 mg tablet extended release 30 mg PO BID@0030,1230 28 Days Qty: 56 0RF aspirin 325 mg Tablet 325 mg PO BID@0030,1230 loratadine 10 mg Tablet 10 mg PO BID@0030,1230 PRN (Reason: ALLERGIES) baclofen 10 mg tablet 10 mg PO BID PRN (Reason: Muscle Pain) albuterol sulfate 90 mcg/actuation HFA aerosol inhaler 2 puff INHALATION Q6H PRN (Reason: wheezing) Linzess 145 mcg capsule 145 mcg PO DAILY@1230 Stiolto Respimat 2.5-2.5 mcg/actuation mist 2 puff INHALATION DAILY insulin glargine-yfgn 100 unit/mL solution 44 unit subcut DAILY pantoprazole 40 mg tablet,delayed release (DR/EC) 40 mg PO DAILY@1230 montelukast 10 mg tablet 10 mg PO BEDTIME@0030 nystatin 100,000 unit/mL suspension 400,000 unit buccal QID PRN (Reason: MOUTH RINSE) pramipexole 0.25 mg tablet 0.5 mg PO BEDTIME@0030 magnesium oxide 400 mg (241.3 mg magnesium) tablet 400 mg PO DAILY@0030 metformin 1,000 mg tablet 1,000 mg PO BID@0030,1230 losartan 25 mg tablet 25 mg PO DAILY@0030 pramipexole 0.25 mg tablet 0.25 mg PO DAILY@1230 diclofenac sodium 75 mg tablet,delayed release (DR/EC) 75 mg PO DAILY PRN (Reason: Pain) mupirocin 2 % ointment 1 appl topical DAILY PRN (Reason: AFFECTED AREA) hydroxychloroquine 200 mg tablet 200 mg PO DAILY@0030 insulin lispro [Humalog KwikPen Insulin] 100 unit/mL insulin pen 30 unit subcut TIDAC Rx Instructions: Per sliding scale pregabalin [Lyrica] 75 mg capsule 75 mg PO BID@0030,1230 multivitamin Tablet 1 tab PO DAILY@1230 ferrous sulfate 325 mg (65 mg iron) Tablet 325 mg PO DAILY@1230 cholecalciferol (vitamin D3) [Vitamin D3] 50 mcg (2,000 unit) Capsule 50 mcg PO DAILY@0030 hyoscyamine sulfate 0.125 mg tablet 0.125 mg PO DAILY PRN (Reason: GI ) (DME) FreeStyle Mag 3 Plus Sensor Device See Rx Instructions .Route Qty: 6 3RF Rx Instructions: As directed (DME) FreeStyle Mag 3 [place] Misc See Rx Instructions .Route Qty: 1 0RF Rx Instructions: As directed (DME) Dexcom G7 Sensor Device See Rx Instructions .Route Qty: 6 3RF Rx Instructions: every 15 days (DME) Dexcom G7 Receiving Operator Misc See Rx Instructions .Route Qty: 1 0RF Rx Instructions: As directed meclizine 25 mg tablet 25 mg PO TID PRN (Reason: vertigo) Qty: 90 0RF ondansetron 4 mg tablet,disintegrating 4 mg PO Q8H PRN (Reason: nausea and vomiting) Qty: 30 1RF amlodipine 10 mg tablet 10 mg PO DAILY@0030 Qty: 90 3RF Discharge Orders: Discharge Order (Routine); Ordered 09/18/24 Ordered By: Derik Alexis Diet: Advance to usual diet Activity on Discharge: As tolerated Stand Alone Forms: Patient Portal Discharge page Print Language: Salvadorean Care Plan Goals: recovery Health Concerns: copd, pna, chf Plan of Treatment: abx, steroids, lasix, no smoking Assessment: see above
[2024-09-18] MEDS: 0.9 % Sodium Chloride Flush 3 ML SYRINGE IVFLUSH (10:15)
[2024-09-18] MEDS: oxyCODONE HCl Immed Release 5 MG TABLET PO (11:20)
[2024-09-18 11:36] LABS: Glucose, Whole Blood 278 mg/dL (60-115)
[2024-09-18 12:00] VITALS: BP 122/61; PULSE 74; RESP 20; TEMP 36.3
[2024-09-18] MEDS: Ferrous Sulfate 324 MG TABLET.DR PO (12:37)
== END 2024-09-18 13:53 | disposition home or self-care (01) | DRG 193 ==
LOC: HO.ED 05:55 → HO.EDOVER 06:07 → HO.IMC 18:53
PROVIDERS: Family Medicine; Admitting Provider Internal Medicine; Emergency Provider Emergency Medicine; PCP Internal Medicine; Visit Provider Internal Medicine
DX: J18.9 Pneumonia, unspecified organism (principal); I50.33 Acute on chronic diastolic (congestive) heart failure; J96.21 Acute and chronic respiratory failure with hypoxia; J44.0 Chronic obstructive pulmonary disease with (acute) lower respiratory infection; J44.1 Chronic obstructive pulmonary disease with (acute) exacerbation; J98.11 Atelectasis; E87.21 Acute metabolic acidosis; E66.2 Morbid (severe) obesity with alveolar hypoventilation; F11.20 Opioid dependence, uncomplicated; M35.00 Sjogren syndrome, unspecified; Z99.81 Dependence on supplemental oxygen; G89.29 Other chronic pain; M79.7 Fibromyalgia; I11.0 Hypertensive heart disease with heart failure; F17.210 Nicotine dependence, cigarettes, uncomplicated; I27.20 Pulmonary hypertension, unspecified; Z71.3 Dietary counseling and surveillance; E11.9 Type 2 diabetes mellitus without complications; K90.0 Celiac disease; Z68.31 Body mass index [BMI] 31.0-31.9, adult; Z20.822 Contact with and (suspected) exposure to COVID-19; Z71.6 Tobacco abuse counseling; Z79.4 Long term (current) use of insulin; Z79.84 Long term (current) use of oral hypoglycemic drugs; Z79.899 Other long term (current) drug therapy
CPT/HCPCS: 36415; 71045; 71275; 72193; 80048; 80053; 82947; 83605; 83735; 83880; 84145; 84484; 85025; 85027; 85610; 87040; 87070; 87205; 87449; 87633; 87637; 87640; 87641; 87899; 93005; 93306; 94640; 99285; J0696; J1271; J1650; J1938; J2405; Q9957; Q9967

== ENCOUNTER → 2024-09-13 01:49 | Outpatient (BNV) | payer OTHER, SELFPAY | PROVIDERS: Emergency Provider Emergency Medicine; PCP Internal Medicine; Visit Provider Radiology Neuroradiology | DX: J98.11 Atelectasis (principal); R22.42 Localized swelling, mass and lump, left lower limb; R06.02 Shortness of breath | CPT/HCPCS: 71045; 71275; 72193 ==

== ENCOUNTER → 2024-09-13 02:18 | Outpatient (BNV) | payer OTHER, SELFPAY | PROVIDERS: Admitting Provider Internal Medicine; Emergency Provider Emergency Medicine; PCP Internal Medicine; Visit Provider Internal Medicine Cardiovascular Disease | DX: I44.5 Left posterior fascicular block (principal) | CPT/HCPCS: 93010 ==

== ENCOUNTER 2024-09-13 05:52 | Outpatient (BNV) | payer OTHER, SELFPAY | END 2024-09-14 07:00 | PROVIDERS: Admitting Provider Internal Medicine; Emergency Provider Emergency Medicine; PCP Internal Medicine; Visit Provider Internal Medicine Cardiovascular Disease | DX: I27.20 Pulmonary hypertension, unspecified (principal); I51.89 Other ill-defined heart diseases; I51.7 Cardiomegaly; I35.8 Other nonrheumatic aortic valve disorders | CPT/HCPCS: 93306 ==

== ENCOUNTER 2024-09-13 05:52 | Outpatient (BNV) | payer OTHER, SELFPAY | END 2024-09-16 10:25 | PROVIDERS: Admitting Provider Internal Medicine; Emergency Provider Emergency Medicine; PCP Internal Medicine; Visit Provider Radiology Diagnostic Radiology | DX: J98.11 Atelectasis (principal) | CPT/HCPCS: 71045 ==

== ENCOUNTER → 2024-09-13 05:52 | Outpatient (BNV) | payer OTHER, SELFPAY | PROVIDERS: Admitting Provider Internal Medicine; Emergency Provider Emergency Medicine; PCP Internal Medicine; Visit Provider Physician Assistant | DX: J96.21 Acute and chronic respiratory failure with hypoxia (principal); R07.89 Other chest pain; R60.0 Localized edema; J18.9 Pneumonia, unspecified organism; E66.811 Obesity, class 1; F17.200 Nicotine dependence, unspecified, uncomplicated | CPT/HCPCS: 99223; 99233; 99499 ==

== ENCOUNTER → 2024-09-13 05:52 | Outpatient (BNV) | payer OTHER, SELFPAY | PROVIDERS: Admitting Provider Internal Medicine; Emergency Provider Emergency Medicine; PCP Internal Medicine; Visit Provider Hospitalist | DX: F17.200 Nicotine dependence, unspecified, uncomplicated (principal); R60.0 Localized edema; J96.21 Acute and chronic respiratory failure with hypoxia; J18.9 Pneumonia, unspecified organism; J98.11 Atelectasis; I27.20 Pulmonary hypertension, unspecified | CPT/HCPCS: 99233 ==

== ENCOUNTER 2024-09-28 05:07 | Inpatient (IN) | payer OTHER, SELFPAY ==
[2024-09-28] VITALS (14 sets, daily range): BP systolic 117–153; BP diastolic 62–81; PULSE 77–93; RESP 13–20; TEMP 36.1–37; O2SAT 85–96; BMI 35.2; BMI 34.5; BMI 33.7
--- NOTE | 2024-09-28 | ECG_ITS ---
Test Reason : SOB Blood Pressure : */* mmHG Vent. Rate : 84 BPM Atrial Rate : 84 BPM P-R Int : 122 ms QRS Dur : 84 ms QT Int : 346 ms P-R-T Axes : 60 119 50 degrees QTcB Int : 408 ms Normal sinus rhythm Left posterior fascicular block Abnormal ECG When compared with ECG of 13-Sep-2024 02:18, No significant change was found Referred By: Generic ED Physician Electronically Signed By: Breezy Meeks
--- NOTE | ~2024-09-28 | XR_ITS ---
CLINICAL HISTORY: dyspnea 1 view chest Comparison: CR/SR - XR CHEST 1 VIEW - 09/16/24 10:22 EDT Findings: Cardiac and mediastinal contours are normal. Mild interstitial and central vascular prominence. No focal consolidation. Trace left effusion suggested.No pneumothorax. No acute osseous finding. Impression: Mild interstitial and central vascular prominence without overt edema. This document has been electronically signed by: Fausto Dominguez MD on 09/28/2024 06:20:21
--- NOTE | 2024-09-28 05:16 | ED_ITS ---
HPI - SOB/Dyspnea General Chief Complaint: Dyspnea Stated Complaint: SOB Time Seen by Provider: 09/28/24 05:16 Source: patient, EMS and old records reviewed Mode of arrival: EMS Limitations: no limitations History of Present Illness HPI Narrative: 64-year-old female with extensive past medical history including oxygen- dependent COPD, diabetes, Sjogren's disease and fibromyalgia and chronic opioid treatment presenting with shortness of breath that has been ongoing for the last 3 days or so. Symptoms are worse with exertion but she came in tonight because she had a coughing fit that ?she could not get a hold of?. Patient reports oxygen saturation of 72% after ambulating from the bathroom. She wears 4 L nasal cannula at baseline. EMS reports they are initial oxygen level was 85% on her baseline 4 L. she improved after a DuoNeb into the low 90s. She also received 125 of Solu-Medrol by EMS. Patient denies associated chest pains. No reported fever though she admits to ?having a lot of junk in her chest?. Unable to make sputum. No sick contacts or travel. Denies nausea, vomiting, diarrhea, abdominal pain, urinary complaints. No lower extremity edema or pain. Related Data Home Medications ?Medication ?Instructions ?Recorded ?Confirmed aspirin 325 mg tablet 325 mg PO BID@0030,1230 09/1709/20/24 loratadine 10 mg tablet 10 mg PO BID@0030,1230 PRN 0 09/27/20 09/20/24 ALLERGIES hyoscyamine sulfate 0.125 mg tablet 0.125 mg PO DAILY PRN GI 07/03/23 09/20/24 cholecalciferol (vitamin D3) 50 50 mcg PO DAILY@0030 0 07/27/24 09/20/24 mcg (2,000 unit) capsule (Vitamin D3) diclofenac sodium 75 mg 75 mg PO DAILY PRN Pain 07/1809/20/24 tablet,delayed release ferrous sulfate 325 mg (65 mg 325 mg PO DAILY@1230 12/1109/20/24 iron) tablet hydroxychloroquine 200 mg tablet 200 mg PO DAILY@0030 07/27/24 09/20/24 insulin lispro 100 unit/mL 30 unit subcut TIDAC 09/20/24 subcutaneous pen (Humalog KwikPen (U-100) Insulin) losartan 25 mg tablet 25 mg PO DAILY@0030 07/27/24 09/20/24 magnesium oxide 400 mg (241.3 mg 400 mg PO DAILY@2907/27/24 09/20/24 magnesium) tablet metformin 1,000 mg tablet 1,000 mg PO BID@0030,1230 09/20/24 multivitamin 1 tab PO DAILY@1230 07/27/24 09/20/24 mupirocin 2 % topical ointment 1 appl topical DAILY OR N AFFECTED 07/27/24 09/20/24 AREA pramipexole 0.25 mg tablet 0.25 mg PO DAILY@0 07/2709/20/24 pramipexole 0.25 mg tablet 0.5 mg PO BEDTIME@07/1809/20/24 pregabalin 75 mg capsule (Lyrica) 75 mg PO BID@0030,12 30 07/27/24 09/20/24 albuterol sulfate 90 mcg/actuation 2 puff inhalation Q 6H PRN wheezing 09/13/24 09/20/24 aerosol inhaler baclofen 10 mg tablet 10 mg PO BID PRN Muscle Pain 09/13/24 09/20/24 insulin glargine-yfgn 100 unit/mL 44 unit subcut DAILY 09/13/24 09/20/24 subcutaneous solution linaclotide 145 mcg capsule 145 mcg PO DAILY@0 08/1809/20/24 (Linzess) montelukast 10 mg tablet 10 mg PO BEDTIME@0030 09/20/24 nystatin 100,000 unit/mL oral 400,000 unit buccal QID PRN MOUTH 09/13/24 09/20/24 suspension RINSE pantoprazole 40 mg tablet,delayed 40 mg PO DAILY@0 09/13/24 09/20/24 release tiotropium 2.5 mcg-olodaterol 2.5 2 puff inhalation DA LAMONTE 09/13/24 09/20/24 mcg/actuation mist for inhalation (Stiolto Respimat) Previous Rx's ?Medication ?Instructions ?Recorded blood-glucose meter #1 ea 08/25/23 cyclobenzaprine 5 mg tablet 5 mg PO BID PRN Pain 90 da ys #180 10/29/23 tabs FreeStyle Mag 3 Plus Sensor #6 ea 12/16/23 (blood-glucose sensor) FreeStyle Mag 3 [place] #1 ea 12/16/23 (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-glucose,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,cont) Oxygen Home Use #1 ea 04/16/24 Dexcom G7 Produce Assistant #1 ea 08/09/24 (blood-glucose,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,cont) Dexcom G7 Sensor (blood-glucose #6 ea 08/09/24 sensor) amlodipine 10 mg tablet 10 mg PO DAILY@0030 #90 tabs 08/09/24 meclizine 25 mg tablet 25 mg PO TID PRN vertigo #90 tabs 08/09/24 ondansetron 4 mg disintegrating 4 mg PO Q8H PRN nausea and 08/09/24 tablet vomiting #30 tabs cefuroxime axetil 500 mg tablet 500 mg PO BID #10 tabs 09/18/24 doxycycline monohydrate 100 mg 100 mg PO Q12H #10 caps 09/18/24 capsule furosemide 40 mg tablet (Lasix) 40 mg PO DAILY #90 tab s 09/18/24 prednisone 20 mg tablet 40 mg (2 x 20 mg) PO DAILY # 10 tabs 09/18/24 morphine 30 mg tablet,extended 30 mg PO BID@0030,1230 28 days #56 09/22/24 release tabs oxycodone 10 mg tablet 10 mg PO QID PRN pain 28 day s #112 09/22/24 tabs qysvper-vufqcblxcx-LAV-caffeine 30 1 cap PO QID PRN he adache 28 days 09/23/24 mg-50 mg-325 mg-40 mg capsule #28 caps Allergies Allergy/AdvReac Type Severity Reaction Status Date / Time atorvastatin (From LIPITOR) Allergy Severe Difficulty Verified 09/28/24 05:23 Breathing azithromycin (AZITHROMYCIN) Allergy Severe Difficulty Verified 09/28/24 05:23 Breathing mite-Dermatophagoides Allergy Severe Difficulty Verified 09/28/24 05:23 farinaevicente (dust mite - Breathing [place]) sumatriptan (From IMITREX) Allergy Severe Difficulty Verified 09/28/24 05:23 Breathing house dust Allergy Mild Unknown Verified 09/28/24 05:23 acetaminophen (From TYLENOL) Allergy Unknown Itching Verified 09/28/24 05:23 adhesive tape (ADHESIVE TAPE) Allergy Unknown Rash Verified 09/28/24 05:23 gentamicin (GENTAMICIN) Allergy Unknown Rash Verified 09/28/24 05:23 adalimumab (From Humira) Allergy Rash Verified 09/28/24 05:23 erythromycin base Allergy Unknown Verified 09/28/24 05:23 haloperidol (From HALDOL) AdvReac Unknown GI Issues Verified 09/28/24 05:23 ketorolac (From TORADOL) AdvReac Unknown Muscle Verified 09/28/24 05:23 cramps prasterone (DHEA) (From DHEA) AdvReac Unknown Cardiac Verified 09/28/24 05:23 issues varenicline (From CHANTIX) AdvReac Unknown Seizure Verified 09/28/24 05:23 ipratropium (From Atrovent) AdvReac Migraine Verified 09/28/24 05:23 Review of Systems 2 Review of Systems: As per HPI, full review of systems performed and negative but for the above mentioned pertinent positives and negatives. 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 Osteoporosis Sjogrens syndrome Rheumatoid arthritis Osteoarthritis Chronic, continuous use of opioids GERD (gastroesophageal reflux disease) Hx of difficult intubation Smoker COPD (chronic obstructive pulmonary disease) Asthma Polycythemia Boils Eczema Bursitis Disc degeneration Sleep apnea Diabetes Fibromyalgia Surgical History History of esophagogastroduodenoscopy (EGD) Hx of tonsillectomy History of surgical removal of pilonidal cyst Hx of plastic surgery Hx of hysterectomy Hx of cholecystectomy Hx of appendectomy History of colonoscopy History of bladder suspension procedure History of removal of cyst Family History Family History Mother Polycythemia TIA (transient ischemic attack) Father Heart attack Other No family history of cancer Social History Social History Household Members: Spouse Housing: House Are you a primary laboratory animal care veterinarian to a significant other at home: No Do you presently have visiting nurse or other home services: No Alcohol intake: never Comment: pt refusing alarms Patient Tobacco Use Status: Current everyday Tobacco user Tobacco use type: Cigarette Cigarette Packs Per Day: 0.5 Cigarettes Per Day: 0.5 Years Smoked: 51 Smoked in Last 30 Days: No e-Cigarette/Vaping Use: Never Used Second Hand Smoke Exposure: No Use of substances other than those prescribed or required for medical reasons: No Advance Directives: Yes Advance Directives on File: Yes Advance Directives Date on File: 12/24/19 Patient : No service: No Current occupational status: retired 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 Cognitive needs: No Hearing needs: No Vision needs: No Physical Exam 2 Exam: Exam: GENERAL: Ill-appearing, chronically ill-appearing, severe respiratory distress. SKIN: Normal skin color for ethnicity, warm, dry, no rashes noted. HEENT: Normocephalic, atraumatic, no stridor, EOMI. NECK: Soft, supple, full ROM, midline structures nontender, no step-offs, no deformities, no lymphadenopathy. CHEST: Heart regular tachycardia, barrel chest, symmetric chest rise and fall. PULMONARY: Diffuse, faint, wheezes throughout, tachypnea, diminished air movement bilaterally R>L, severe respiratory distress. ABDOMINAL: Soft,nontender, quiet bowel sounds in all quadrants. : Deferred. MUSCULOSKELETAL: Normal tone, full range of motion, no deformities, 3+ peripheral edema L>R. NEURO: Alert and oriented to person, CN II through XII intact, no focal neurologic deficits. PSYCHIATRIC: Anxious affect, appropriate demeanor. Vital Signs: Vital Signs: Last Vital Signs Temp 98.6 F 09/28/24 06:29 Pulse 81 09/28/24 06:29 Resp 20 09/28/24 06:29 BP 122/64 09/28/24 06:29 Pulse Ox 92 09/28/24 06:29 O2 Del Method Nasal Cannula 09/28/24 06:29 O2 Flow Rate 4 09/28/24 06:29 Oxygen Flow Rate 4 09/28/24 05:14 BMI result Body Mass Index 35.2 Medical Decision Making Medical Decision Making MDM Narrative: Patient presents in respiratory distress. Differential diagnosis includes flash pulmonary edema or CHF exacerbation, COPD exacerbation, pneumothorax, ACS, pulmonary embolism, metabolic acidosis, among many others. The serious nature of the patient's symptoms makes this presentation complex, with potential for significant, worsening morbidity and mortality without immediate treatment/intervention. 7:13 AM 09/28/2024 (Dr. Huyen Hill, Rosemary.Inessa.) patient significantly improved after nebulizer treatments, Solu-Medrol, magnesium. Holding off on BiPAP at this time. Oxygen levels remain in the mid 90s. She does remain dyspneic with some left-sided chest pain. Concern for potential volume overload. We will give a dose of Lasix and admit to hospitalist for further care and evaluation of CHF/COPD exacerbation. Elevated white blood cell count is mild, very low concern for infectious process at this time. We will give a dose of doxycycline for COPD exacerbation though. Differential Diagnosis Differential Diagnoses: The differential diagnosis associated with the presentation includes (As above) Admission/Observation Consideration of admission/observation: Escalation of care including admission/observation considered Consult Healthcare Provider Management of the patient was discussed with: Hospitalist Lab Data MDM Lab Attestation statement: I reviewed the patient's lab results. 09/28/24 05:36 09/28/24 05:36 Labs: Lab Results 09/28/24 09/28/24 09/28/24 Range/Units 05:36 05:44 06:06 WBC 13.7 H (4.8-10.8) X10*3/uL RBC 5.83 H (4.20-5.50) X10*6/uL Hgb 15.2 (12.0-16.0) g/dl Hct 49.1 H (37.0-47.0) % MCV 84.2 (80.0-98.0) fL MCH 26.1 L (27.0-33.0) pg MCHC 31.0 (31.0-35.0) g/dl RDW 16.8 H (11.0-16.0) % Plt Count 265 (160-400) X10*3/uL MPV 9.5 (9.4-12.3) fL Immature Gran % (Auto) 0.9 H (0.0-0.4) % Neut % (Auto) 70.3 (45-73) % Lymph % (Auto) 20.6 (20-40) % [place] % (Auto) 6.2 (2-11) % Eos % (Auto) 1.6 (0-4) % Baso % (Auto) 0.4 (0-2) % Lymph # (Auto) 2.8 (1.2-4.9) X10*3/uL [place] # (Auto) 0.9 (0.1-1.2) X10*3/uL Eos # (Auto) 0.2 (0.0-0.4) X10*3/uL Baso # (Auto) 0.1 (0.0-0.2) X10*3/uL Abs Immat Gran (auto) 0.12 H (0.00-0.03) X10*3/uL Absolute Neuts (auto) 9.7 H (2.0-8.3) x10*3/uL Absolute Nucleated RBC 0.000 (0.0-0.012) X10*3/uL Nucleated RBC % (auto) 0.0 (0.0-0.2) /100WBC VBG pH 7.40 (7.32-7.43) VBG pCO2 51 mmHg VBG pO2 96 mmHg VBG HCO3 32 H (22-26) mmol/L VBG O2 Saturation 100.0 % VBG Base Excess 6.1 mmol/L Sodium 134 L (135-145) mmol/L Potassium 5.0 (3.3-5.1) mmol/L Chloride 99 (96-108) mmol/L Carbon Dioxide 24 (22-29) mmol/L Anion Gap 16 (12-20) BUN 22 H (9-16) mg/dL Creatinine 0.63 (0.5-1.4) mg/dL Estim Creat Clear Calc 101.0 Estimated GFR > 60 Random Glucose 324 H (60-115) mg/dL Lactic Acid 1.7 (0.5-2.0) mmol/L Calcium 8.8 (8.4-10.2) mg/dL Magnesium 2.0 (1.6-2.6) mg/dL Total Bilirubin 0.2 (0.0-1.0) mg/dL AST 23 (5-31) U/L ALT 19 (0-31) U/L Alkaline Phosphatase 85 (39-117) U/L B-Natriuretic Peptide 345 H (<100) pg/mL Total Protein 6.7 (6.5-8.0) g/dL Albumin 3.6 (3.5-5.0) g/dL Influenza Type A (PCR) NEGATIVE (Negative) Influenza Type B (PCR) NEGATIVE (Negative) RSV RNA Qual (PCR) NEGATIVE (Negative) SARS-CoV-2 RNA (RT-PCR) NEGATIVE (Negative) Independent Interpretation I performed an independent interpretation of an: EKG Interpretation: My independent interpretation of the ECG reveals normal sinus rhythm with rate of 84, rightward axis, left posterior fascicular block, no ST elevations or depressions to suggest ischemic changes, relatively unchanged from previous on 09/13/2024. Radiology Impression Discussion of test interpretation with radiology: I have reviewed the radiologist's reading. Radiologist Impression: 1 view chest Comparison: CR/SR - XR CHEST 1 VIEW - 09/16/24 10:22 EDT Findings: Cardiac and mediastinal contours are normal. Mild interstitial and central vascular prominence. No focal consolidation. Trace left effusion suggested.No pneumothorax. No acute osseous finding. Impression: Mild interstitial and central vascular prominence without overt edema. This document has been electronically signed by: Fausto Dominguez MD on 09/28/2024 06:20:21 External Record Review External record reviewed: Inpatient record Chronic Conditions Patient?s care impacted by: Diabetes, Hypertension and Other (Oxygen-dependent COPD) Critical Care Time Critical Care Time Critical Care Time: Yes Total Critical Care Time: 36 Attestation: CRITICAL CARE TIME: 36 minutes of critical care time was spent in direct patient care at the bedside or in the immediate area with this patient. Critical care was necessary to treat or prevent imminent or life-threatening deterioration of the following conditions acute hypoxic respiratory failure due to CHF and COPD exacerbation. This patient is high risk for decompensation and/or . This time was spent assessing and managing the patient, interpreting labs and imaging, coordinating care with other medical providers, gathering history from either the patient, their representatives, EMS or chart review, and discussing management with hospitalist team. Discharge Plan Discharge Clinical Impression: Acute and chronic respiratory failure ([id number]), Congestive heart failure Patient Disposition: Admitted As Inpatient Print Language: Khmer
[2024-09-28 05:44] LABS: Hematocrit 49.1 % (37.0-47.0); Hemoglobin 15.2 g/dl (12.0-16.0); Imm Gran Abs Auto 0.12 X10*3/uL (0.00-0.03); Imm Gran Pct Auto 0.9 % (0.0-0.4); Lymphocytes Absolute Auto 2.8 X10*3/uL (1.2-4.9); MANUAL DIFF FLAG NO; Mean Corpuscular HGB Conc 31.0 g/dl (31.0-35.0); Mean Corpuscular Hemoglobin 26.1 pg (27.0-33.0); Mean Corpuscular Volume 84.2 fL (80.0-98.0); NRBC Abs Auto 0.000 X10*3/uL (0.0-0.012); NRBC Pct Auto 0.0 /100WBC (0.0-0.2); Platelet Count 265 X10*3/uL (160-400); Red Blood Count 5.83 X10*6/uL (4.20-5.50); White Blood Count 13.7 X10*3/uL (4.8-10.8)
[2024-09-28 05:48] LABS: VBG HCO3 32 mmol/L (22-26); VBG O2 % Saturation 100.0 %
[2024-09-28 05:48] LABS: Venous Blood Gas Refer to POC result
[2024-09-28 06:09] LABS: Alanine Aminotransferase 19 U/L (0-31); Albumin Level 3.6 g/dL (3.5-5.0); Alkaline Phosphatase 85 U/L (39-117); Anion Gap 16 (12-20); Aspartate Amino Transferase 23 U/L (5-31); Blood Urea Nitrogen 22 mg/dL (9-16); Calcium 8.8 mg/dL (8.4-10.2); Carbon Dioxide 24 mmol/L (22-29); Chloride 99 mmol/L (96-108); Creatinine Clr Calc Pharmacy 101.0; Estimated Glomerular Filt Rate > 60; Magnesium 2.0 mg/dL (1.6-2.6); Potassium 5.0 mmol/L (3.3-5.1); Sodium 134 mmol/L (135-145); Total Protein 6.7 g/dL (6.5-8.0)
[2024-09-28 06:13] LABS: B Type Natriuretic Peptide 345 pg/mL (<100)
[2024-09-28 06:28] LABS: Resp Syncy Virus RNA Qual PCR NEGATIVE (Negative); SARS COV2 PCR INHOUSE NEGATIVE (Negative)
--- OUTSIDE RECORDS SUMMARY | 2024-09-28 06:30 | XMS_ITS | Encounter Summary ---
Author Organization [facility] Address [address] [place] [address] Care Team Providers Care Telegraph Inspector Name Role Phone Dottie Douglass MD Primary Care Provider [phone] Encounter Details Date Type Department Care Team (Late st Contact Info) Description 01/02/2018 Scanned Document [facility] [place] [address] [facility] [address] [place] [address] Nito Epperson MD [address] [place] [address] [address] [place] [address] Social History Tobacco Use Types Packs/Day Years [...] on filedocumented in this encounter Care Teams Telegraph Inspector Relationship Specialty Start Date End Date Dottie Douglass MD PCP - General Internal Medicine 08/04/17 documented as of this encounter
--- OUTSIDE RECORDS SUMMARY | 2024-09-28 06:31 | XMS_ITS | Patient Health Record ---
Author Organization [facility] Address [address] [place] [address] Care Team Providers Care Embossing Tool Setter Name Role Phone MAYI GASPAR MD Primary [...] Risk Notes Problem Lumbosacral spondylosis without myelopathy (49146851) Spondylosis without myelopathy or radiculopathy, lumbar region (M47.816) Active confirmed Problem High risk drug monitoring status (097364863) [facility] (current) use of opiate analgesic (Z79.891) Active confirmed Plan Of Treatment Pending Test Test Name Order Date COCAINE QUANTITATIVE 05/07/2022 OXYCODONE QUANTITATIVE 05/07/2022 BARBITURATES QUANTITATIVE 05/07/2022 METHADONE QUANTITATIVE 05/07/2022 MDMA (ECSTASY) QUANTITATIVE 05/07/2022 TRAMADOL QUANTITATIVE 05/07/2022 FENTANYL QUANTITATIVE 05/07/2022 BUPRENORPHINE QUANTITATIVE 05/07/2022 BENZODIAZEPINE QUANTITATIVE 05/07/2022 OPIATES QUANTITATIVE 05/07/2022 MUSCLE RELAXANT, QUANTITATIVE 05/07/2022 Amphetamine 05/07/2022 LAB REPORT 05/07/2022 [place] DRUG PANEL,UR 05/07/2022 Insurance Providers Payer Name Payer Address Payer Phone Subscriber Number Group Number Insured Name Patient Relationship to Insured Coverage Start Date Coverage End Date [place] [address] [place] [address] [id number] BRITNEY Keane Spouse - patient is the [...]
--- OUTSIDE RECORDS SUMMARY | 2024-09-28 06:31 | XMS_ITS | Clinical Summary ---
Author Organization [facility] Address [address] [place] [address] Care Team Providers Care Seam Press Operator Name Role Phone Dottie Douglass MD Primary Care Provider [phone] Allergies Active Allergy Reactions Criticality Noted Date [...] T PO BID 0 06/17/19 19 Active NexalogyTOUCH ULTRA CONTROL solution See admin instructions. 0 [...] complete this topic Insurance M[employer] Care Teams Seam Press Operator Relationship Specialty Start Date End Date Dottie Douglass MD [address] [address] PCP - General Internal Medicine 10/13/20
[2024-09-28] MEDS: Furosemide 40 MG/4 ML VIAL IVPUSH (07:26)
[2024-09-28 07:44] LABS: Troponin-I High Sensitivity 12.2 ng/L (<3.5-17.0)
[2024-09-28] MEDS: oxyCODONE HCl Immed Release 5 MG TABLET PO ×2 (10:52→17:45)
[2024-09-28] MEDS: Furosemide 20 MG/2 ML VIAL IVPUSH ×2 (10:52→20:43)
--- NOTE | 2024-09-28 11:19 | PHA.MEDREC ---
Addendum entered by Karen Medina [facility] 09/28/24 12:17: reviewed by [facility] Addendum entered by Myla Ramírez 09/28/24 12:08: Per pt she confirmed she is taking Loratadine 1QD and not BID PRN as written in claims and she takes Lyrica 1qd instead of BID as written in claims. Original Note: Pharmacy Consult ? Medication Reconciliation Pharmacy has completed the medication reconciliation. Spoke with pt and she had on hand a typed list of medication we used to confirm the med rec. Per pt, she takes Lantus Solostar 45 units daily@1230 and Humalog 25 units TIDAC. Pt confirmed she takes her medications at specific times; AM MEDS: 1230 and PM MEDS: 0030.
[2024-09-28 16:06] LABS: Glucose, Whole Blood 492 mg/dL (60-115)
--- NOTE | 2024-09-28 16:23 | P.HPHOSP_ITS ---
History of Present Illness Date of Service: 09/28/24 Attending physician on admission: Ravinder Castrejon Chief Complaint: chf 64y/o F female pmhx for oxygen-dependent COPD, insulin-dependent diabetes, Sjogren's, fibromyalgia, chronic opioid use, celiac disease, ulcerative colitis, Lin's esophagus, restless leg syndrome, TENISHA on CPAP, class 1 obesity, ?left leg lymphedema, and new diagnosis cardiomyopathy: Recently discharged for acute on chronic diastolic CHF exacerbation-came to the hospital because of feeling progressive shortness of breath, unable to lie flat, She said that shortness of breaths with minimal exertion. In addition patient was hypoxic in 70s just ambulating to the bathroom. Lab imaging EKG reviewed: Patient was found to have mild leukocytosis, BMP seems fine except mild pseudohyponatremia. Chest x-ray shows mild congestion EKG NSR Patient received IV antibiotic, Lasix in the emergency room and requested admission for COPD/CHF exacerbation. Review of Systems 2 Review of Systems: As above. Yes all other systems are reviewed and are negative FOR[facility], [facility] Medical History Pulmonary hypertension Tobacco dependence due to cigarettes Diabetes mellitus with hyperglycemia Chronic pain syndrome FCI (current) use of opiate analgesic Osteoporosis Sjogrens syndrome Rheumatoid arthritis Osteoarthritis Chronic, continuous use of opioids GERD (gastroesophageal reflux disease) Hx of difficult intubation Smoker COPD (chronic obstructive pulmonary disease) Asthma Polycythemia Boils Eczema Bursitis Disc degeneration Sleep apnea Diabetes Fibromyalgia Family History Mother Polycythemia TIA (transient ischemic attack) Father Heart attack Other No family history of cancer Surgical History History of esophagogastroduodenoscopy (EGD) Hx of tonsillectomy History of surgical removal of pilonidal cyst Hx of plastic surgery Hx of hysterectomy Hx of cholecystectomy Hx of appendectomy History of colonoscopy History of bladder suspension procedure History of removal of cyst Social History Household Members: Spouse Housing: House Are you a primary zoo caretaker to a significant other at home: No Do you presently have visiting nurse or other home services: No Alcohol intake: never Comment: pt refusing alarms Patient Tobacco Use Status: Current everyday Tobacco user Tobacco use type: Cigarette Cigarette Packs Per Day: 1 Cigarettes Per Day: 20.0 Years Smoked: 51 Smoked in Last 30 Days: Yes e-Cigarette/Vaping Use: Never Used Patient Interested in Nicotine Replacement: Yes Second Hand Smoke Exposure: No Use of substances other than those prescribed or required for medical reasons: No Currently Displaying Signs/Symptoms of Drug Intoxication Withdrawal: No Have you been hit, kicked, punched, or otherwise hurt by someone within the past year? If so, by whom?: No Do you feel safe in your current relationship?: Yes Is there a partner from a previous relationship who is making you feel unsafe now?: No Are you made to feel afraid or neglected: No Advance Directives: Yes Advance Directives on File: Yes Advance Directives Date on File: 12/24/19 Do you have a plan to hurt others: No Plan Recently lost weight without trying: No How much weight loss: Not applicable Eating poorly because of decreased appetite: No Nutrition screen score: 0 Nutrition Risks: No Nutritional Risk Patient : No : No service: No Current occupational status: retired 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 Cognitive needs: No Hearing needs: No Vision needs: No Meds Allergies Allergy/AdvReac Type Severity Reaction Status Date / Time atorvastatin (From LIPITOR) Allergy Severe Difficulty Verified 09/28/24 05:23 Breathing azithromycin (AZITHROMYCIN) Allergy Severe Difficulty Verified 09/28/24 05:23 Breathing mite-Dermatophagoides Allergy Severe Difficulty Verified 09/28/24 05:23 farinae, vicente (dust mite - Breathing [place]) sumatriptan (From IMITREX) Allergy Severe Difficulty Verified 09/28/24 05:23 Breathing house dust Allergy Mild Unknown Verified 09/28/24 05:23 acetaminophen (From TYLENOL) Allergy Unknown Itching Verified 09/28/24 05:23 adhesive tape (ADHESIVE TAPE) Allergy Unknown Rash Verified 09/28/24 05:23 gentamicin (GENTAMICIN) Allergy Unknown Rash Verified 09/28/24 05:23 adalimumab (From Humira) Allergy Rash Verified 09/28/24 05:23 erythromycin base Allergy Unknown Verified 09/28/24 05:23 haloperidol (From HALDOL) AdvReac Unknown GI Issues Verified 09/28/24 05:23 ketorolac (From TORADOL) AdvReac Unknown Muscle Verified 09/28/24 05:23 cramps prasterone (DHEA) (From DHEA) AdvReac Unknown Cardiac Verified 09/28/24 05:23 issues varenicline (From CHANTIX) AdvReac Unknown Seizure Verified 09/28/24 05:23 ipratropium (From Atrovent) AdvReac Migraine Verified 09/28/24 05:23 Active Medications: Current Medications Amlodipine Besylate (Amlodipine Besylate 10 Mg Tablet) 10 mg PO DAILY@0030 [facility]; Protocol Aspirin (Aspirin 325 Mg Tablet) 325 mg PO BID@29,1229 [facility] Baclofen (Baclofen 10 Mg Tablet) 10 mg PO BID PRN PRN Reason: Muscle Pain Furosemide (Furosemide 20 Mg/2 Ml Vial) 20 mg IVPUSH Q12H [facility]; Protocol Last Admin: 09/28/24 10:52 Dose: 20 mg Furosemide (Furosemide 40 Mg Tablet) 40 mg PO DAILY@123 [facility]; Protocol Hydroxychloroquine Sulfate (Hydroxychloroquine Sulfate 200 Mg Tablet) 200 mg PO DAILY@003 [facility] Doxycycline Hyclate 100 mg/ (Sodium Chloride) 250 mls @ 166.67 mls/hr IV Q12H [facility] Insulin Glargine (Insulin Glargine,Hum.Rec.Anlog 100 Unit/Ml 10 Ml Vial) 45 unit SUBCUT DAILY@003 [facility] Levalbuterol HCl (Levalbuterol Hcl 1.25 Mg/3 Ml Vial.Neb) 1.25 mg INHALE RTID [facility] Last Admin: 09/28/24 15:18 Dose: 1.25 mg Loratadine (Loratadine 10 Mg Tablet) 10 mg PO DAILY@1230 [facility] Losartan Potassium (Losartan Potassium 25 Mg Tablet) 25 mg PO DAILY@0030 [facility]; Protocol Magnesium Oxide (Magnesium Oxide 400 Mg Tablet) 400 mg PO DAILY@003 [facility] Meclizine HCl (Meclizine Hcl 25 Mg Tablet) 25 mg PO TID PRN PRN Reason: Vertigo Montelukast Sodium (Montelukast Sodium 10 Mg Tablet) 10 mg PO BEDTIME@003 [facility] Morphine Sulfate (Morphine Sulfate Er 30 Mg Tablet.Er) 30 mg PO BID@29,1229 [facility] Multivitamins/Vitamin C (Multivitamin Tablet) 1 tab PO DAILY@1230 [facility] Mupirocin (Mupirocin 2 % Oint 22 Gm Tube) 1 appl TOPICAL DAILY PRN; Protocol PRN Reason: AFFECTED AREA Non-Formulary Medication (Wyfqgqn-Mhyhacecqc-Nyj-Caff) 1 cap PO QID PRN PRN Reason: headache Non-Formulary Medication (Ferrous Sulfate) 325 mg PO DAILY@1230 [facility] Non-Formulary Medication (Hyoscyamine Sulfate) 0.125 mg PO DAILY PRN PRN Reason: GI Non-Formulary Medication (Linaclotide [Linzess]) 145 mcg PO DAILY@1230 [facility] Non-Formulary Medication (Pantoprazole) 40 mg PO DAILY@1230 [facility] Non-Formulary Medication (Tiotropium-Olodaterol [Stiolto Respimat]) 2 puff INHALE DAILY@1230 [facility] Nystatin (Nystatin Oral Susp 500,000 Unit/5 Ml Oral.Susp) 400,000 unit BUCCAL QID PRN; Protocol PRN Reason: MOUTH RINSE Pramipexole Dihydrochloride (Pramipexole Di-Hcl 0.25 Mg Tablet) 0.25 mg PO DAILY@1230 [facility] Pramipexole Dihydrochloride (Pramipexole Di-Hcl 0.25 Mg Tablet) 0.5 mg PO BEDTIME@0030 [facility] Prednisone (Prednisone 20 Mg Tablet) 40 mg PO DAILY [facility] Last Admin: 09/28/24 10:52 Dose: 40 mg Pregabalin (Pregabalin 75 Mg Capsule) 75 mg PO DAILY@0030 [facility] Vitamin D (Cholecalciferol (Vitamin D3) 25 Mcg Tablet) 50 mcg PO DAILY@0030 [facility] Home Medications ?Medication ?Instructions ?Recorded ?Confirmed ?Last Taken ?Type aspirin 325 mg tablet 325 mg PO BID@0030,1230 09/1709/28/24 09/28/24 00:30 History loratadine 10 mg tablet 10 mg PO DAILY@1230 09/27/20 09/28/24 09/28/24 00:30 History hyoscyamine sulfate 0.125 mg tablet 0.125 mg PO DAILY PRN GI 07/03/23 09/28/24 02/27/24 History cholecalciferol (vitamin D3) 50 50 mcg PO DAILY@0030 0 07/27/24 09/28/24 09/28/24 00:30 History mcg (2,000 unit) capsule (Vitamin D3) diclofenac sodium 75 mg 75 mg PO DAILY PRN Pain 07/1809/28/24 Unknown History tablet,delayed release ferrous sulfate 325 mg (65 mg 325 mg PO DAILY@12/1109/28/24 09/27/24 12:30 History iron) tablet hydroxychloroquine 200 mg tablet 200 mg PO DAILY@0030 07/27/24 09/28/24 09/28/24 00:30 History insulin lispro 100 unit/mL 25 unit subcut TIDAC 09/28/24 09/28/24 00:30 History subcutaneous pen (Humalog KwikPen (U-100) Insulin) losartan 25 mg tablet 25 mg PO DAILY@00307/27/24 09/28/24 09/28/24 00:30 History magnesium oxide 400 mg (241.3 mg 400 mg PO DAILY@2907/27/24 09/28/24 09/28/24 00:30 History magnesium) tablet metformin 1,000 mg tablet 1,000 mg PO BID@0030,12309/28/24 09/28/24 00:30 History multivitamin 1 tab PO DAILY@122907/27/24 09/28/24 09/27/24 12:30 History mupirocin 2 % topical ointment 1 appl topical DAILY ID N AFFECTED 07/27/24 09/28/24 09/12/24 History AREA pramipexole 0.25 mg tablet 0.25 mg PO DAILY@1230 07/2709/28/24 09/27/24 12:30 History pramipexole 0.25 mg tablet 0.5 mg PO BEDTIME@07/1809/28/24 09/28/24 00:30 History pregabalin 75 mg capsule (Lyrica) 75 mg PO DAILY@00307/27/24 09/28/24 09/28/24 00:30 History albuterol sulfate 90 mcg/actuation 2 puff inhalation Q 6H PRN wheezing 09/13/24 09/28/24 Unknown History aerosol inhaler baclofen 10 mg tablet 10 mg PO BID PRN Muscle Pain 09/13/24 09/28/24 Unknown History linaclotide 145 mcg capsule 145 mcg PO DAILY@1230 /2 10/1109/28/24 09/27/24 12:30 History (Linzess) montelukast 10 mg tablet 10 mg PO BEDTIME@0030 09/28/24 09/28/24 00:30 History nystatin 100,000 unit/mL oral 400,000 unit buccal QID PRN MOUTH 09/13/24 09/28/24 09/12/24 History suspension RINSE pantoprazole 40 mg tablet,delayed 40 mg PO DAILY@1230 09/13/24 09/28/24 09/27/24 12:30 History release tiotropium 2.5 mcg-olodaterol 2.5 2 puff inhalation DA LAMONTE@0 09/13/24 09/28/24 09/27/24 12:30 History mcg/actuation mist for inhalation (Stiolto Respimat) furosemide 40 mg tablet (Lasix) 40 mg PO DAILY@1230 09/28/24 09/28/24 00:30 History insulin glargine 100 unit/mL (3 45 unit subcut DAILY@0 030 09/28/24 09/28/24 09/28/24 00:30 History mL) subcutaneous pen (Lantus Solostar U-100 Insulin) Physical Exam 2 Vital Signs and Narrative: Vital Signs: Last Vital Signs Temp 97.1 F 09/28/24 16:00 Pulse 78 09/28/24 16:00 Resp 20 09/28/24 16:00 BP 139/67 09/28/24 16:00 Pulse Ox 96 09/28/24 16:00 O2 Del Method Nasal Cannula 09/28/24 16:00 O2 Flow Rate 4 09/28/24 16:00 Oxygen Flow Rate 4 09/28/24 05:14 BMI result Body Mass Index 33.7 Appearance: Alert.? Oriented X3.? cvs: rrr, [id number] . res: air entry dimished ,few scattered rales , wheezin abd: no rebound or guarding ,nt, bs present. ext pulses present , no cyanosis . neuro: axo3 , nonfocal. Results Labs 09/28/24 05:36 09/28/24 05:36 Labs: Laboratory Results - last 24 hr 09/28/24 09/28/24 09/28/24 05:36 05:44 06:06 MCV 84.2 MCH 26.1 L MCHC 31.0 RDW 16.8 H Plt Count 265 MPV 9.5 Immature Gran % (Auto) 0.9 H Neut % (Auto) 70.3 Lymph % (Auto) 20.6 [place] % (Auto) 6.2 Eos % (Auto) 1.6 Baso % (Auto) 0.4 Lymph # (Auto) 2.8 [place] # (Auto) 0.9 Eos # (Auto) 0.2 Baso # (Auto) 0.1 Abs Immat Gran (auto) 0.12 H Absolute Neuts (auto) 9.7 H Absolute Nucleated RBC 0.000 Nucleated RBC % (auto) 0.0 VBG pH 7.40 VBG pCO2 51 VBG pO2 96 VBG HCO3 32 H VBG O2 Saturation 100.0 VBG Base Excess 6.1 Anion Gap 16 Estim Creat Clear Calc 101.0 Estimated GFR > 60 POC Glucose Random Glucose 324 H Lactic Acid 1.7 Calcium 8.8 Magnesium 2.0 Total Bilirubin 0.2 AST 23 ALT 19 Alkaline Phosphatase 85 B-Natriuretic Peptide 345 H Total Protein 6.7 Albumin 3.6 Influenza Type A (PCR) NEGATIVE Influenza Type B (PCR) NEGATIVE RSV RNA Qual (PCR) NEGATIVE SARS-CoV-2 RNA (RT-PCR) NEGATIVE 09/28/24 16:00 MCV MCH MCHC RDW Plt Count MPV Immature Gran % (Auto) Neut % (Auto) Lymph % (Auto) [place] % (Auto) Eos % (Auto) Baso % (Auto) Lymph # (Auto) [place] # (Auto) Eos # (Auto) Baso # (Auto) Abs Immat Gran (auto) Absolute Neuts (auto) Absolute Nucleated RBC Nucleated RBC % (auto) VBG pH VBG pCO2 VBG pO2 VBG HCO3 VBG O2 Saturation VBG Base Excess Anion Gap Estim Creat Clear Calc Estimated GFR POC Glucose 492 H* Random Glucose Lactic Acid Calcium Magnesium Total Bilirubin AST ALT Alkaline Phosphatase B-Natriuretic Peptide Total Protein Albumin Influenza Type A (PCR) Influenza Type B (PCR) RSV RNA Qual (PCR) SARS-CoV-2 RNA (RT-PCR) Assessment and Plan (1) Congestive heart failure: Status: Acute Plan 64F PMH chronic hypoxic respiratory failure due to COPD and Sjogren syndrome with pulmonary hypertension on 4 L home O2, chronic opiate dependence, celiac disease, ulcerative colitis, Lin's esophagus, restless leg syndrome, TENISHA on CPAP presented with shortness of breaths Acute on chronic hypoxic respiratory failure due to COPD with acute decompensation and pneumonia and acute on chronic diastolic CHF Continue doxycycline,Continue Lasix, nebs ,steriods, continue oxygen moniter i/o,daily weights Hypertension Amlodipine, losartan Sjogren's Continue hydroxychloroquine Diabetes with hyperglycemia : Basal bolus insulin Chronic pain on opiates Continue MSIR and oxycodone TENISHA CPAP at night DVT prophylaxis with Lovenox Full Code Patient will benefit from 2 midnight stay considering CHF exacerbation need IV Lasix and I&O monitoring, renal function electrolyte monitoring. Respiratory status is not optimal yet, requiring oxygen Quality Stroke Does the patient have a stroke diagnosis?: No VTE Prior VTE?: No VTE Risk Level:: Medical - moderate - high VTE Device Contraindication: N/A - Device Ordered VTE Drug Contraindication: N/A - Med Ordered
[2024-09-28] MEDS: Insulin Glargine,Hum.rec.anlog 100 UNIT/ML 10 ML VIAL 45 UNIT SUBCUT (16:51)
[2024-09-28] MEDS: Nicotine 21 MG PATCH.TD24 TRANSDERMA (17:45)
[2024-09-28 20:39] LABS: Glucose, Whole Blood 493 mg/dL (60-115)
[2024-09-29] VITALS (13 sets, daily range): BP systolic 107–133; BP diastolic 56–71; PULSE 70–81; RESP 16–18; TEMP 36.3–36.6; O2SAT 94–96; BMI 34.9
[2024-09-29] MEDS: Morphine Sulfate ER 30 MG TABLET.ER PO ×3 (00:04→23:53)
[2024-09-29] MEDS: Insulin Glargine,Hum.rec.anlog 100 UNIT/ML 10 ML VIAL 45 UNIT SUBCUT ×2 (00:08→23:53)
[2024-09-29] MEDS: oxyCODONE HCl Immed Release 5 MG TABLET 10 MG PO ×4 (05:02→21:26)
[2024-09-29 07:14] LABS: Glucose, Whole Blood 180 mg/dL (60-115)
[2024-09-29] MEDS: Nicotine 21 MG PATCH.TD24 TRANSDERMA (07:41)
[2024-09-29 08:42] LABS: Hematocrit 45.8 % (37.0-47.0); Hemoglobin 14.9 g/dl (12.0-16.0); Mean Corpuscular HGB Conc 32.5 g/dl (31.0-35.0); Mean Corpuscular Hemoglobin 26.6 pg (27.0-33.0); Mean Corpuscular Volume 81.6 fL (80.0-98.0); NRBC Abs Auto 0.000 X10*3/uL (0.0-0.012); NRBC Pct Auto 0.0 /100WBC (0.0-0.2); Platelet Count 235 X10*3/uL (160-400); Red Blood Count 5.61 X10*6/uL (4.20-5.50); White Blood Count 11.8 X10*3/uL (4.8-10.8)
[2024-09-29 09:16] LABS: Blood Urea Nitrogen 23 mg/dL (9-16); Calcium 9.0 mg/dL (8.4-10.2); Creatinine Clr Calc Pharmacy 117.4; Estimated Glomerular Filt Rate > 60
[2024-09-29 09:34] LABS: Anion Gap 15 (12-20); Carbon Dioxide 32 mmol/L (22-29); Chloride 93 mmol/L (96-108); Potassium 3.9 mmol/L (3.3-5.1); Sodium 136 mmol/L (135-145)
--- NOTE | 2024-09-29 09:42 | MHC.CM.PN ---
Pt. lives with her , her PCP is: Dottie Douglass, HCP is on file and confirmed, her , Jair. Pt. does not use home health services. For DME, she has home O2 and CPAP from [facility]. to transport home at [place]. DCP: home, self care. CM to follow for DC needs.
[2024-09-29] MEDS: Furosemide 20 MG/2 ML VIAL IVPUSH ×2 (09:51→21:26)
[2024-09-29 11:10] LABS: Glucose, Whole Blood 318 mg/dL (60-115)
[2024-09-29] MEDS: Ferrous Sulfate 324 MG TABLET.DR PO (12:49)
--- NOTE | 2024-09-29 15:56 | P.PNIM_ITS ---
Subjective Subjective Date of Service: 09/29/24 Interval History: chf Review of Systems sob seems similar Physical Exam 2 Exam: Exam: Appearance: Alert.? Oriented X3.? cvs: rrr, [id number] . res: air entry dimished ,few scattered rales , wheezin abd: no rebound or guarding ,nt, bs present. ext pulses present , no cyanosis . neuro: axo3 , nonfocal. Vital Signs: Vital Signs: Last Vital Signs Temp 97.6 F 09/29/24 15:33 Pulse 72 09/29/24 15:33 Resp 18 09/29/24 15:33 BP 115/56 L 09/29/24 15:33 Pulse Ox 96 09/29/24 15:33 O2 Del Method Nasal Cannula 09/29/24 15:33 O2 Flow Rate 3 09/29/24 15:33 Oxygen Flow Rate 4 09/28/24 05:14 BMI result Body Mass Index 34.9 Objective Data Active Medications Albuterol Sulfate (Albuterol Sulfate (0.083%) 2.5 Mg/3 Ml Vial.Neb) 2.5 mg INHALE Q4H PRN PRN Reason: Shortness of Breath/Wheezing Amlodipine Besylate (Amlodipine Besylate 10 Mg Tablet) 10 mg PO DAILY@0030 [facility]; Protocol Last Admin: 09/29/24 00:07 Dose: 10 mg Documented By: TOSHA Aspirin (Aspirin 325 Mg Tablet) 325 mg PO BID@0030,1230 [facility] Last Admin: 09/29/24 12:53 Dose: 325 mg Documented By: JOSE Baclofen (Baclofen 10 Mg Tablet) 10 mg PO BID PRN PRN Reason: Muscle Pain Last Admin: 09/29/24 07:47 Dose: 10 mg Documented By: JOSE Dextrose (Dextrose 50 % 25 Gm/50 Ml Syringe) 25 gm IVPUSH Q15M PRN; Protocol PRN Reason: per Hypoglycemia Standing Ord. Enoxaparin Sodium (Enoxaparin Sodium 40 Mg/0.4 Ml Syringe) 40 mg SUBCUT Q24H [facility] Last Admin: 09/28/24 17:45 Dose: 40 mg Documented By: MISTY Ferrous Sulfate (Ferrous Sulfate 324 Mg Tablet.) 324 mg PO DAILY@1230 [facility] Last Admin: 09/29/24 12:49 Dose: 324 mg Documented By: JOSE Furosemide (Furosemide 20 Mg/2 Ml Vial) 20 mg IVPUSH Q12H [facility]; Protocol Last Admin: 09/29/24 09:51 Dose: 20 mg Documented By: JOSE Glucose (Glucose Gel 15 Gm Gel..Gram.) 15 gm PO Q15M PRN; Protocol PRN Reason: per Hypoglycemia Standing Ord. Hydroxychloroquine Sulfate (Hydroxychloroquine Sulfate 200 Mg Tablet) 200 mg PO DAILY@0030 [facility] Last Admin: 09/29/24 00:06 Dose: 200 mg Documented By: TOSHA Doxycycline Hyclate 100 mg/ (Sodium Chloride) 250 mls @ 166.67 mls/hr IV Q12H [facility] Last Infusion: 09/29/24 09:47 Dose: Infused Documented By: JOSE Insulin Glargine (Insulin Glargine,Hum.Rec.Anlog 100 Unit/Ml 10 Ml Vial) 45 unit SUBCUT DAILY@0030 [facility] Last Admin: 09/29/24 00:08 Dose: 45 unit Documented By: TOSHA Insulin Human Lispro (Insulin Lispro 100 Unit/Ml 3 Ml Vial) 0 unit SUBCUT QIDACHS [facility]; Protocol Last Admin: 09/29/24 11:29 Dose: 10 unit Documented By: JOSE Levalbuterol HCl (Levalbuterol Hcl 1.25 Mg/3 Ml Vial.Neb) 1.25 mg INHALE RTID [facility] Last Admin: 09/29/24 15:01 Dose: 1.25 mg Documented By: JASBIR Loratadine (Loratadine 10 Mg Tablet) 10 mg PO DAILY@1230 [facility] Last Admin: 09/29/24 12:50 Dose: 10 mg Documented By: JOSE Losartan Potassium (Losartan Potassium 25 Mg Tablet) 25 mg PO DAILY@0030 [facility]; Protocol Last Admin: 09/29/24 00:07 Dose: 25 mg Documented By: TOSHA Magnesium Oxide (Magnesium Oxide 400 Mg Tablet) 400 mg PO DAILY@0030 [facility] Last Admin: 09/29/24 00:07 Dose: 400 mg Documented By: TOSHA Meclizine HCl (Meclizine Hcl 25 Mg Tablet) 25 mg PO TID PRN PRN Reason: Vertigo Montelukast Sodium (Montelukast Sodium 10 Mg Tablet) 10 mg PO BEDTIME@003 [facility] Last Admin: 09/29/24 00:06 Dose: 10 mg Documented By: TOSHA Morphine Sulfate (Morphine Sulfate Er 30 Mg Tablet.Er) 30 mg PO BID@29,1229 [facility] Last Admin: 09/29/24 12:49 Dose: 30 mg Documented By: JOSE Multivitamins/Vitamin C (Multivitamin Tablet) 1 tab PO DAILY@1229 [facility] Last Admin: 09/29/24 12:49 Dose: 1 tab Documented By: JOSE Mupirocin (Mupirocin 2 % Oint 22 Gm Tube) 1 appl TOPICAL DAILY PRN; Protocol PRN Reason: AFFECTED AREA Nicotine (Nicotine 21 Mg Patch.Td24) 21 mg TRANSDERMA DAILY [facility] Last Admin: 09/29/24 07:41 Dose: 21 mg Documented By: JOSE Non-Formulary Medication ([place]-Unbsxcepww-Aaf-Caff) 1 cap PO QID PRN PRN Reason: headache Non-Formulary Medication (Hyoscyamine Sulfate) 0.125 mg PO DAILY PRN PRN Reason: GI Non-Formulary Medication (Linaclotide [Linzess]) 145 mcg PO DAILY@1229 [facility] Non-Formulary Medication (Tiotropium-Olodaterol [Stiolto Respimat]) 2 puff INHALE DAILY@0 [facility] Nystatin (Nystatin Oral Susp 500,000 Unit/5 Ml Oral.Susp) 400,000 unit BUCCAL QID PRN; Protocol PRN Reason: MOUTH RINSE Omeprazole (Omeprazole 20 Mg Capsule.Dr) 20 mg PO DAILY@123 [facility] Last Admin: 09/29/24 12:50 Dose: 20 mg Documented By: JOSE Oxycodone HCl (Oxycodone Hcl Immed Release 5 Mg Tablet) 10 mg PO QID PRN PRN Reason: severe back pain Last Admin: 09/29/24 10:20 Dose: 10 mg Documented By: JOSE Pramipexole Dihydrochloride (Pramipexole Di-Hcl 0.25 Mg Tablet) 0.25 mg PO DAILY@1230 [facility] Last Admin: 09/29/24 12:50 Dose: 0.25 mg Documented By: JOSE Pramipexole Dihydrochloride (Pramipexole Di-Hcl 0.25 Mg Tablet) 0.5 mg PO BEDTIME@0030 [facility] Last Admin: 09/29/24 00:05 Dose: 0.5 mg Documented By: TOSHA Prednisone (Prednisone 20 Mg Tablet) 40 mg PO DAILY [facility] Last Admin: 09/29/24 07:47 Dose: 40 mg Documented By: JOSE Pregabalin (Pregabalin 75 Mg Capsule) 75 mg PO DAILY@003 [facility] Last Admin: 09/29/24 00:06 Dose: 75 mg Documented By: TOSHA Vitamin D (Cholecalciferol (Vitamin D3) 25 Mcg Tablet) 50 mcg PO DAILY@0030 [facility] Last Admin: 09/29/24 00:04 Dose: 50 mcg Documented By: TOSHA Labs 09/29/24 08:15 09/29/24 08:15 Labs: Laboratory Results - last 24 hr 09/28/24 09/28/24 09/29/24 16:00 20:33 07:07 MCV MCH MCHC RDW Plt Count MPV Absolute Nucleated RBC Nucleated RBC % (auto) Anion Gap Estim Creat Clear Calc Estimated GFR POC Glucose 492 H* 493 H* 180 H Random Glucose Calcium 09/29/24 09/29/24 08:15 11:04 MCV 81.6 MCH 26.6 L MCHC 32.5 RDW 16.9 H Plt Count 235 MPV 10.0 Absolute Nucleated RBC 0.000 Nucleated RBC % (auto) 0.0 Anion Gap 15 Estim Creat Clear Calc 117.4 Estimated GFR > 60 POC Glucose 318 H Random Glucose 174 H Calcium 9.0 Microbiology Microbiology Results: Microbiology 09/28/24 06:22 Blood Culture - Preliminary Blood - Venous No growth after 24 hours. 09/28/24 05:50 Blood Culture - Preliminary Blood - Venous No growth after 24 hours. Assessment and Plan (1) Congestive heart failure: Status: Acute Plan 64F PMH chronic hypoxic respiratory failure due to COPD and Sjogren syndrome with pulmonary hypertension on 4 L home O2, chronic opiate dependence, celiac disease, ulcerative colitis, Lin's esophagus, restless leg syndrome, TENISHA on CPAP presented with shortness of breaths Acute on chronic hypoxic respiratory failure due to COPD with acute decompensation and pneumonia and acute on chronic diastolic CHF sob seems similar Continue doxycycline,Continue Lasix, nebs ,steriods, continue oxygen moniter i/o,daily weights Hypertension Amlodipine, losartan Sjogren's Continue hydroxychloroquine Diabetes with hyperglycemia : Basal bolus insulin Chronic pain on opiates Continue Morphine er and oxycodone TENISHA CPAP at night DVT prophylaxis with Lovenox Full Code ongoing need stay considering CHF exacerbation need IV Lasix and I&O monitoring, renal function electrolyte monitoring. Respiratory status is not optimal yet, requiring oxygen Quality Stroke Does the patient have a stroke diagnosis?: No VTE Prior VTE?: No VTE Risk Level:: Medical - moderate - high VTE Device Contraindication: N/A - Device Ordered VTE Drug Contraindication: N/A - Med Ordered
[2024-09-29 16:36] LABS: Glucose, Whole Blood 332 mg/dL (60-115)
[2024-09-29 20:30] LABS: Glucose, Whole Blood 254 mg/dL (60-115)
[2024-09-30] VITALS (9 sets, daily range): BP systolic 94–134; BP diastolic 56–78; PULSE 71–85; RESP 14–19; TEMP 36.3–37; O2SAT 90–96; BMI 35.2
[2024-09-30] MEDS: oxyCODONE HCl Immed Release 5 MG TABLET 10 MG PO ×4 (03:56→19:34)
[2024-09-30] MEDS: Albuterol Sulfate (0.083%) 2.5 MG/3 ML VIAL.NEB INHALE (03:57)
[2024-09-30 07:28] LABS: Glucose, Whole Blood 190 mg/dL (60-115)
[2024-09-30] MEDS: Nicotine 21 MG PATCH.TD24 TRANSDERMA (07:45)
[2024-09-30 07:57] LABS: Anion Gap 13 (12-20); Blood Urea Nitrogen 20 mg/dL (9-16); Calcium 8.7 mg/dL (8.4-10.2); Carbon Dioxide 33 mmol/L (22-29); Chloride 95 mmol/L (96-108); Creatinine Clr Calc Pharmacy 106.1; Estimated Glomerular Filt Rate > 60; Potassium 3.9 mmol/L (3.3-5.1); Sodium 137 mmol/L (135-145)
[2024-09-30 08:04] LABS: B Type Natriuretic Peptide 46 pg/mL (<100)
[2024-09-30] MEDS: Furosemide 20 MG/2 ML VIAL IVPUSH ×2 (10:30→22:37)
--- NOTE | 2024-09-30 10:55 | P.PNIM_ITS ---
Subjective Subjective Date of Service: 09/30/24 Interval History: slowly improving Physical Exam 2 Exam: Exam: Appearance: Alert.? Oriented X3.? cvs: rrr, [id number] . res: air entry dimished ,few scattered rales , wheezin abd: no rebound or guarding ,nt, bs present. ext pulses present , no cyanosis . neuro: axo3 , nonfocal. Vital Signs: Vital Signs: Last Vital Signs Temp 98.6 F 09/30/24 07:14 Pulse 74 09/30/24 08:59 Resp 16 09/30/24 08:59 BP 134/63 09/30/24 10:30 Pulse Ox 96 09/30/24 07:14 O2 Del Method Nasal Cannula 09/30/24 07:14 O2 Flow Rate 3 09/30/24 07:14 Oxygen Flow Rate 4 09/28/24 05:14 BMI result Body Mass Index 35.2 Objective Data Active Medications Albuterol Sulfate (Albuterol Sulfate (0.083%) 2.5 Mg/3 Ml Vial.Neb) 2.5 mg INHALE Q4H PRN PRN Reason: Shortness of Breath/Wheezing Last Admin: 09/30/24 03:57 Dose: 2.5 mg Documented By: TOSHA Amlodipine Besylate (Amlodipine Besylate 10 Mg Tablet) 10 mg PO DAILY@0030 [facility]; Protocol Last Admin: 09/29/24 23:52 Dose: 10 mg Documented By: TOSHA Aspirin (Aspirin 325 Mg Tablet) 325 mg PO BID@0030,1230 [facility] Last Admin: 09/29/24 23:50 Dose: 325 mg Documented By: TOSHA Baclofen (Baclofen 10 Mg Tablet) 10 mg PO BID PRN PRN Reason: Muscle Pain Last Admin: 09/29/24 21:26 Dose: 10 mg Documented By: TOSHA Dextrose (Dextrose 50 % 25 Gm/50 Ml Syringe) 25 gm IVPUSH Q15M PRN; Protocol PRN Reason: per Hypoglycemia Standing Ord. Enoxaparin Sodium (Enoxaparin Sodium 40 Mg/0.4 Ml Syringe) 40 mg SUBCUT Q24H [facility] Last Admin: 09/29/24 16:34 Dose: 40 mg Documented By: JOSE Ferrous Sulfate (Ferrous Sulfate 324 Mg Tablet.) 324 mg PO DAILY@1230 [facility] Last Admin: 09/29/24 12:49 Dose: 324 mg Documented By: JOSE Furosemide (Furosemide 20 Mg/2 Ml Vial) 20 mg IVPUSH Q12H [facility]; Protocol Last Admin: 09/30/24 10:30 Dose: 20 mg Documented By: JOSE Glucose (Glucose Gel 15 Gm Gel..Gram.) 15 gm PO Q15M PRN; Protocol PRN Reason: per Hypoglycemia Standing Ord. Hydroxychloroquine Sulfate (Hydroxychloroquine Sulfate 200 Mg Tablet) 200 mg PO DAILY@0030 [facility] Last Admin: 09/29/24 23:50 Dose: 200 mg Documented By: TOSHA Doxycycline Hyclate 100 mg/ (Sodium Chloride) 250 mls @ 166.67 mls/hr IV Q12H [facility] Last Infusion: 09/30/24 07:56 Dose: Infused Documented By: JOSE Insulin Glargine (Insulin Glargine,Hum.Rec.Anlog 100 Unit/Ml 10 Ml Vial) 45 unit SUBCUT DAILY@0030 [facility] Last Admin: 09/29/24 23:53 Dose: 45 unit Documented By: TOSHA Insulin Human Lispro (Insulin Lispro 100 Unit/Ml 3 Ml Vial) 0 unit SUBCUT QIDACHS [facility]; Protocol Last Admin: 09/30/24 07:46 Dose: 2 unit Documented By: JOSE Levalbuterol HCl (Levalbuterol Hcl 1.25 Mg/3 Ml Vial.Neb) 1.25 mg INHALE RTID [facility] Last Admin: 09/30/24 08:55 Dose: 1.25 mg Documented By: JASBIR Loratadine (Loratadine 10 Mg Tablet) 10 mg PO DAILY@[facility] Last Admin: 09/29/24 12:50 Dose: 10 mg Documented By: JOSE Losartan Potassium (Losartan Potassium 25 Mg Tablet) 25 mg PO DAILY@0030 [facility]; Protocol Last Admin: 09/29/24 23:52 Dose: 25 mg Documented By: TOSHA Magnesium Oxide (Magnesium Oxide 400 Mg Tablet) 400 mg PO DAILY@0030 [facility] Last Admin: 09/29/24 23:51 Dose: 400 mg Documented By: TOSHA Meclizine HCl (Meclizine Hcl 25 Mg Tablet) 25 mg PO TID PRN PRN Reason: Vertigo Montelukast Sodium (Montelukast Sodium 10 Mg Tablet) 10 mg PO BEDTIME@0030 [facility] Last Admin: 09/29/24 23:51 Dose: 10 mg Documented By: TOSHA Morphine Sulfate (Morphine Sulfate Er 30 Mg Tablet.Er) 30 mg PO BID@0030,1230 [facility] Last Admin: 09/29/24 23:53 Dose: 30 mg Documented By: TOSHA Multivitamins/Vitamin C (Multivitamin Tablet) 1 tab PO DAILY@1230 [facility] Last Admin: 09/29/24 12:49 Dose: 1 tab Documented By: JOSE Mupirocin (Mupirocin 2 % Oint 22 Gm Tube) 1 appl TOPICAL DAILY PRN; Protocol PRN Reason: AFFECTED AREA Nicotine (Nicotine 21 Mg Patch.Td24) 21 mg TRANSDERMA DAILY [facility] Last Admin: 09/30/24 07:45 Dose: 21 mg Documented By: JOSE Non-Formulary Medication (Hettfxx-Rozbmigfpj-Cky-Caff) 1 cap PO QID PRN PRN Reason: headache Non-Formulary Medication (Hyoscyamine Sulfate) 0.125 mg PO DAILY PRN PRN Reason: GI Non-Formulary Medication (Linaclotide [Linzess]) 145 mcg PO DAILY@1230 [facility] Non-Formulary Medication (Tiotropium-Olodaterol [Stiolto Respimat]) 2 puff INHALE DAILY@[address] [place] [address] Nystatin (Nystatin Oral Susp 500,000 Unit/5 Ml Oral.Susp) 400,000 unit BUCCAL QID PRN; Protocol PRN Reason: MOUTH RINSE Omeprazole (Omeprazole 20 Mg Capsule.Dr) 20 mg PO DAILY@1230 [facility] Last Admin: 09/29/24 12:50 Dose: 20 mg Documented By: JOSE Oxycodone HCl (Oxycodone Hcl Immed Release 5 Mg Tablet) 10 mg PO QID PRN PRN Reason: severe back pain Last Admin: 09/30/24 03:56 Dose: 10 mg Documented By: TOSHA Pramipexole Dihydrochloride (Pramipexole Di-Hcl 0.25 Mg Tablet) 0.25 mg PO DAILY@[facility] Last Admin: 09/29/24 12:50 Dose: 0.25 mg Documented By: JOSE Pramipexole Dihydrochloride (Pramipexole Di-Hcl 0.25 Mg Tablet) 0.5 mg PO BEDTIME@0030 [facility] Last Admin: 09/29/24 23:54 Dose: 0.5 mg Documented By: TOSHA Prednisone (Prednisone 20 Mg Tablet) 40 mg PO DAILY [facility] Last Admin: 09/30/24 07:45 Dose: 40 mg Documented By: JOSE Pregabalin (Pregabalin 75 Mg Capsule) 75 mg PO DAILY@0030 [facility] Last Admin: 09/29/24 23:51 Dose: 75 mg Documented By: TOSHA Vitamin D (Cholecalciferol (Vitamin D3) 25 Mcg Tablet) 50 mcg PO DAILY@0030 [facility] Last Admin: 09/29/24 23:51 Dose: 50 mcg Documented By: TOSHA Labs 09/29/24 08:15 09/30/24 07:08 Labs: Laboratory Results - last 24 hr 09/29/24 09/29/24 09/29/24 11:04 16:29 20:21 Hold Purple Top Anion Gap Estim Creat Clear Calc Estimated GFR POC Glucose 318 H 332 H 254 H Random Glucose Calcium B-Natriuretic Peptide 09/30/24 09/30/24 07:08 07:19 Hold Purple Top SEE NOTE Anion Gap 13 Estim Creat Clear Calc 106.1 Estimated GFR > 60 POC Glucose 190 H Random Glucose 175 H Calcium 8.7 B-Natriuretic Peptide 46 Microbiology Microbiology Results: Microbiology 09/28/24 06:22 Blood Culture - Preliminary Blood - Venous No growth after 48 hours. 09/28/24 05:50 Blood Culture - Preliminary Blood - Venous No growth after 48 hours. Assessment and Plan (1) Congestive heart failure: Status: Acute Plan 64F PMH chronic hypoxic respiratory failure due to COPD and Sjogren syndrome with pulmonary hypertension on 4 L home O2, chronic opiate dependence, celiac, ulcerative colitis, Lin's esophagus, restless legs syndrome, TENISHA on CPAP, chronic diastolic CHF presented with shortness breath Acute on chronic hypoxic respiratory failure due to COPD with acute decompensation and pneumonia and acute on chronic diastolic CHF Continue IV Lasix, doxycycline, prednisone, DuoNebs Hypertension Amlodipine, losartan Sjogren's Hydroxychloroquine Diabetes with hyperglycemia Insulin sliding scale Chronic pain on opiates Continue morphine and oxycodone TENISHA CPAP at night DVT prophylaxis Lovenox Full Code reason for continued hospitalization: Ongoing shortness breath Quality Stroke Does the patient have a stroke diagnosis?: No VTE Prior VTE?: No VTE Risk Level:: Medical - moderate - high VTE Device Contraindication: N/A - Device Ordered VTE Drug Contraindication: N/A - Med Ordered
[2024-09-30 11:39] LABS: Glucose, Whole Blood 352 mg/dL (60-115)
[2024-09-30] MEDS: Ferrous Sulfate 324 MG TABLET.DR PO (12:37)
[2024-09-30] MEDS: Morphine Sulfate ER 30 MG TABLET.ER PO (12:39)
[2024-09-30 16:18] LABS: Glucose, Whole Blood 340 mg/dL (60-115)
[2024-09-30 21:18] LABS: Glucose, Whole Blood 265 mg/dL (60-115)
[2024-10-01] VITALS: BP 124/57; PULSE 86; RESP 17; TEMP 36.1; O2SAT 94
[2024-10-01] MEDS: Morphine Sulfate ER 30 MG TABLET.ER PO ×2 (00:08→11:35)
[2024-10-01] MEDS: Insulin Glargine,Hum.rec.anlog 100 UNIT/ML 10 ML VIAL 45 UNIT SUBCUT (00:11)
[2024-10-01] MEDS: oxyCODONE HCl Immed Release 5 MG TABLET 10 MG PO ×4 (01:13→12:39)
[2024-10-01 03:49] VITALS: BP 129/61; PULSE 72; RESP 16; TEMP 36.8; O2SAT 96
[2024-10-01 07:06] LABS: Hematocrit 46.9 % (37.0-47.0); Hemoglobin 14.8 g/dl (12.0-16.0); Mean Corpuscular HGB Conc 31.6 g/dl (31.0-35.0); Mean Corpuscular Hemoglobin 26.3 pg (27.0-33.0); Mean Corpuscular Volume 83.3 fL (80.0-98.0); NRBC Abs Auto 0.000 X10*3/uL (0.0-0.012); NRBC Pct Auto 0.0 /100WBC (0.0-0.2); Platelet Count 251 X10*3/uL (160-400); Red Blood Count 5.63 X10*6/uL (4.20-5.50); White Blood Count 11.3 X10*3/uL (4.8-10.8)
[2024-10-01] MEDS: Furosemide 20 MG/2 ML VIAL IVPUSH (07:07)
[2024-10-01] MEDS: Nicotine 21 MG PATCH.TD24 TRANSDERMA (07:07)
[2024-10-01 07:12] VITALS: BP 118/57; PULSE 74; RESP 20; TEMP 36.3; O2SAT 94
[2024-10-01 07:17] LABS: Glucose, Whole Blood 277 mg/dL (60-115)
[2024-10-01 07:23] LABS: Anion Gap 13 (12-20); Blood Urea Nitrogen 19 mg/dL (9-16); Calcium 8.9 mg/dL (8.4-10.2); Carbon Dioxide 31 mmol/L (22-29); Chloride 96 mmol/L (96-108); Creatinine Clr Calc Pharmacy 111.6; Estimated Glomerular Filt Rate > 60; Magnesium 1.8 mg/dL (1.6-2.6); Potassium 4.0 mmol/L (3.3-5.1); Sodium 136 mmol/L (135-145)
[2024-10-01 08:16] VITALS: PULSE 74; RESP 16
--- NOTE | 2024-10-01 10:58 | P.DS_ITS ---
DS: Providers Provider Date of Service: 10/01/24 Date of admission: 09/28/24 07:53 Date of discharge: 10/01/24 Primary care physician: Dottie Douglass MD DS: Diagnosis Discharge Diagnosis (1) Congestive heart failure: Status: Acute DS: Summary Hospital Course Hospital Course: from initial hpi: 64y/o F female pmhx for oxygen-dependent COPD, insulin-dependent diabetes, Sjogren's, fibromyalgia, chronic opioid use, celiac disease, ulcerative colitis, Lin's esophagus, restless leg syndrome, TENISHA on CPAP, class 1 obesity, ?left leg lymphedema, and new diagnosis cardiomyopathy: Recently discharged for acute on chronic diastolic CHF exacerbation-came to the hospital because of feeling progressive shortness of breath, unable to lie flat, She said that shortness of breaths with minimal exertion. In addition patient was hypoxic in 70s just ambulating to the bathroom. Lab imaging EKG reviewed: Patient was found to have mild leukocytosis, BMP seems fine except mild pseudohyponatremia. Chest x-ray shows mild congestion EKG NSR Patient received IV antibiotic, Lasix in the emergency room and requested admission for COPD/CHF exacerbation. 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 Was treated with IV Lasix, doxycycline, prednisone, DuoNebs. Symptoms resolved inpatient back on chronic O2 level with minimal shortness of breath. On discharge will continue 5 days of prednisone and doxycycline and Lasix maintenance. She is encouraged to avoid smoking. For hypertension was continued on amlodipine and losartan. For Sjogren's continued on hydroxychloroquine. For diabetes with hyperglycemia continue insulin sliding scale. For chronic pain was continued on opiates. For TENISHA uses CPAP at night. Time Attestation Discharge Coordination Time (in mins): 37 Quality: Safe Use of Opioids Does Pt have an Active Cancer Diagnosis on the Problem List?: No Quality: Stroke Does the patient have a stroke diagnosis?: No Physical Exam Exam: Exam: General: AO X 3, no acute distress Resp: CTA bilateral, no accessory muscles used CVS: S1,S2,RRR GI: soft, non tender, non distended Neuro: motor grossly intact, alert Psych: appropriate affect, appropriate insight Vital Signs: Vital Signs: Last Vital Signs Temp 97.4 F 10/01/24 07:12 Pulse 74 10/01/24 08:16 Resp 16 10/01/24 08:16 BP 118/57 L 10/01/24 07:12 Pulse Ox 94 10/01/24 07:12 O2 Del Method Nasal Cannula 10/01/24 07:12 O2 Flow Rate 3 10/01/24 07:12 Oxygen Flow Rate 4 09/28/24 05:14 BMI result Body Mass Index 35.2 DS: Data Data Completed and Pending Completed studies during hospitalization [Text1]: Procedures Assistance with Respiratory Ventilation, Less than 24 Consecutive Hours, Continuous Positive Airway Pressure (07/27/24) Labs on day of discharge: Laboratory Results - last 24 hr 09/30/24 09/30/24 09/30/24 11:31 16:10 21:11 WBC RBC Hgb Hct MCV MCH MCHC RDW Plt Count MPV Absolute Nucleated RBC Nucleated RBC % (auto) Sodium Potassium Chloride Carbon Dioxide Anion Gap BUN Creatinine Estim Creat Clear Calc Estimated GFR POC Glucose 352 H* 340 H 265 H Random Glucose Calcium Magnesium 10/01/24 10/01/24 06:16 07:06 WBC 11.3 H RBC 5.63 H Hgb 14.8 Hct 46.9 MCV 83.3 MCH 26.3 L MCHC 31.6 RDW 17.2 H Plt Count 251 MPV 10.1 Absolute Nucleated RBC 0.000 Nucleated RBC % (auto) 0.0 Sodium 136 Potassium 4.0 Chloride 96 Carbon Dioxide 31 H Anion Gap 13 BUN 19 H Creatinine 0.57 Estim Creat Clear Calc 111.6 Estimated GFR > 60 POC Glucose 277 H Random Glucose 201 H Calcium 8.9 Magnesium 1.8 Preliminary micro results at discharge 09/28/24 06:22 Blood Culture - Preliminary Blood - Venous No growth after 48 hours. 09/28/24 05:50 Blood Culture - Preliminary Blood - Venous No growth after 48 hours. Discharge Plan Discharge Anticipated Discharge Date/Time: 10/01/24 10:55 Patient Disposition: Home, Self-Care Discharge Diagnosis: copd, chf Referrals: Dottie Douglass MD [Primary Care Provider, Endocrinology] - 1 Week Discharge Medications: New prednisone 20 mg Tablet 40 mg PO DAILY Qty: 10 0RF doxycycline hyclate 100 mg capsule 100 mg PO BID Qty: 10 0RF Continued (DME) blood-glucose meter Kit See Rx Instructions .Route Qty: 1 0RF Rx Instructions: 4 times daily to check blood glucose cyclobenzaprine 5 mg tablet 5 mg PO BID PRN (Reason: Pain) 90 Days Qty: 180 3RF (DME) Oxygen Home Use Kit See Rx Instructions .Route Qty: 1 3RF Rx Instructions: 2L continuous morphine 30 mg tablet extended release 30 mg PO BID@0030,1230 28 Days Qty: 56 0RF oxycodone 10 mg tablet 10 mg PO QID PRN (Reason: pain) 28 Days Qty: 112 0RF vimsbzn-qtupyxzika-EAR-caff [id number] mg capsule 1 cap PO QID PRN (Reason: headache) 28 Days Qty: 28 0RF aspirin 325 mg Tablet 325 mg PO BID@0030,1230 loratadine 10 mg Tablet 10 mg PO DAILY@1230 baclofen 10 mg tablet 10 mg PO BID PRN (Reason: Muscle Pain) albuterol sulfate 90 mcg/actuation HFA aerosol inhaler 2 puff INHALATION Q6H PRN (Reason: wheezing) Linzess 145 mcg capsule 145 mcg PO DAILY@1230 Stiolto Respimat 2.5-2.5 mcg/actuation mist 2 puff INHALATION DAILY@1230 pantoprazole 40 mg tablet,delayed release (DR/EC) 40 mg PO DAILY@1230 montelukast 10 mg tablet 10 mg PO BEDTIME@0030 nystatin 100,000 unit/mL suspension 400,000 unit buccal QID PRN (Reason: MOUTH RINSE) insulin glargine [Lantus Solostar U-100 Insulin] 100 unit/mL (3 mL) Insulin Pen 45 unit SUBCUT DAILY@0030 furosemide [Lasix] 40 mg tablet 40 mg PO DAILY@1230 pramipexole 0.25 mg tablet 0.5 mg PO BEDTIME@0030 magnesium oxide 400 mg (241.3 mg magnesium) tablet 400 mg PO DAILY@0030 metformin 1,000 mg tablet 1,000 mg PO BID@0030,1230 losartan 25 mg tablet 25 mg PO DAILY@0030 pramipexole 0.25 mg tablet 0.25 mg PO DAILY@1230 diclofenac sodium 75 mg tablet,delayed release (DR/EC) 75 mg PO DAILY PRN (Reason: Pain) mupirocin 2 % ointment 1 appl topical DAILY PRN (Reason: AFFECTED AREA) hydroxychloroquine 200 mg tablet 200 mg PO DAILY@0030 insulin lispro [Humalog KwikPen Insulin] 100 unit/mL insulin pen 25 unit subcut TIDAC Rx Instructions: Per sliding scale pregabalin [Lyrica] 75 mg capsule 75 mg PO DAILY@0030 multivitamin Tablet 1 tab PO DAILY@1230 ferrous sulfate 325 mg (65 mg iron) Tablet 325 mg PO DAILY@1230 cholecalciferol (vitamin D3) [Vitamin D3] 50 mcg (2,000 unit) Capsule 50 mcg PO DAILY@0030 hyoscyamine sulfate 0.125 mg tablet 0.125 mg PO DAILY PRN (Reason: GI ) (DME) FreeStyle Mag 3 Plus Sensor Device See Rx Instructions .Route Qty: 6 3RF Rx Instructions: As directed (DME) FreeStyle Mag 3 Lake Misc See Rx Instructions .Route Qty: 1 0RF Rx Instructions: As directed (DME) Dexcom G7 Sensor Device See Rx Instructions .Route Qty: 6 3RF Rx Instructions: every 15 days (DME) Dexcom G7 Global Compensation Director Misc See Rx Instructions .Route Qty: 1 0RF Rx Instructions: As directed meclizine 25 mg tablet 25 mg PO TID PRN (Reason: vertigo) Qty: 90 0RF ondansetron 4 mg tablet,disintegrating 4 mg PO Q8H PRN (Reason: nausea and vomiting) Qty: 30 1RF amlodipine 10 mg tablet 10 mg PO DAILY@0030 Qty: 90 3RF Discharge Orders: Discharge Order (Routine); Ordered 10/01/24 Ordered By: Derik Alexis Diet: Advance to usual diet Activity on Discharge: As tolerated Stand Alone Forms: Patient Portal Discharge page Print Language: Armenian Care Plan Goals: recovery Health Concerns: copd, chf Plan of Treatment: Five days prednisone doxycycline, continue Lasix maintenance, no smoking Assessment: See above
[2024-10-01 11:03] VITALS: BP 135/75; PULSE 74; RESP 20; TEMP 36.3; O2SAT 94
[2024-10-01 11:08] LABS: Glucose, Whole Blood 351 mg/dL (60-115)
--- NOTE | 2024-10-01 11:14 | MHC.CM.PN ---
Patient has been medically cleared for dc to home today, self care.
[2024-10-01] MEDS: Ferrous Sulfate 324 MG TABLET.DR PO (11:35)
== END 2024-10-01 13:32 | disposition home or self-care (01) | DRG 291 ==
LOC: HO.ED 07:37 → HO.IMC 08:07 → HO.EDOVER 08:57 → HO.IMC 12:33 → HO.S3 15:46 → HO.IMC 16:41 → HO.S3 10-01 10:06 → HO.IMC 10-01 10:12
PROVIDERS: Internal Medicine; Admitting Provider Internal Medicine; Emergency Provider Emergency Medicine; PCP Internal Medicine; Visit Provider Internal Medicine
DX: I11.0 Hypertensive heart disease with heart failure (principal); I50.33 Acute on chronic diastolic (congestive) heart failure; J18.9 Pneumonia, unspecified organism; J96.21 Acute and chronic respiratory failure with hypoxia; J44.0 Chronic obstructive pulmonary disease with (acute) lower respiratory infection; J44.1 Chronic obstructive pulmonary disease with (acute) exacerbation; F11.20 Opioid dependence, uncomplicated; E11.65 Type 2 diabetes mellitus with hyperglycemia; M35.00 Sjogren syndrome, unspecified; K90.0 Celiac disease; G47.33 Obstructive sleep apnea (adult) (pediatric); G89.29 Other chronic pain; I27.20 Pulmonary hypertension, unspecified; F17.210 Nicotine dependence, cigarettes, uncomplicated; Z20.822 Contact with and (suspected) exposure to COVID-19; Z99.81 Dependence on supplemental oxygen; Z71.6 Tobacco abuse counseling; Z79.4 Long term (current) use of insulin; Z79.82 Long term (current) use of aspirin; Z79.84 Long term (current) use of oral hypoglycemic drugs; Z79.899 Other long term (current) drug therapy
CPT/HCPCS: 36415; 71045; 80048; 80053; 82803; 82947; 83605; 83735; 83880; 84484; 85025; 85027; 87040; 87637; 93005; 94640; 99285; J1171; J1271; J1650; J1938

== ENCOUNTER → 2024-09-28 05:16 | Outpatient (BNV) | payer OTHER, SELFPAY | PROVIDERS: Emergency Provider Emergency Medicine; Visit Provider Radiology Vascular & Interventional Radiology | DX: J84.9 Interstitial pulmonary disease, unspecified (principal) | CPT/HCPCS: 71045 ==

== ENCOUNTER → 2024-09-28 05:17 | Outpatient (BNV) | payer OTHER, SELFPAY | PROVIDERS: Admitting Provider Internal Medicine; Emergency Provider Emergency Medicine; Visit Provider Internal Medicine Cardiovascular Disease | DX: I44.5 Left posterior fascicular block (principal) | CPT/HCPCS: 93010 ==

== ENCOUNTER → 2024-09-28 07:53 | Outpatient (BNV) | payer OTHER, SELFPAY | PROVIDERS: Admitting Provider Internal Medicine; Emergency Provider Emergency Medicine; Visit Provider Internal Medicine | DX: I50.32 Chronic diastolic (congestive) heart failure (principal); J96.21 Acute and chronic respiratory failure with hypoxia; J44.1 Chronic obstructive pulmonary disease with (acute) exacerbation | CPT/HCPCS: 99222 ==

== ENCOUNTER 2024-10-21 07:16 | Inpatient (IN) | payer OTHER, SELFPAY ==
[2024-10-21] VITALS (11 sets, daily range): BP systolic 108–144; BP diastolic 51–71; PULSE 70–86; RESP 16–24; TEMP 36.4–37; O2SAT 92–99; BMI 34.8
--- NOTE | 2024-10-21 | ECG_ITS ---
Test Reason : cp Blood Pressure : */* mmHG Vent. Rate : 83 BPM Atrial Rate : 83 BPM P-R Int : 146 ms QRS Dur : 86 ms QT Int : 362 ms P-R-T Axes : 52 113 31 degrees QTcB Int : 425 ms Normal sinus rhythm Possible Left atrial enlargement Left posterior fascicular block Abnormal ECG When compared with ECG of 28-Sep-2024 05:17, No significant change was found Referred By: Generic ED Physician Electronically Signed By: Breezy Meeks
--- NOTE | ~2024-10-21 | US_ITS ---
EXAMINATION: US TRIPLEX LOWER EXTREMITY, LEFT CLINICAL INFORMATION: Left lower extremity swelling with calf pain. COMPARISON: 07/27/2024. TECHNIQUE: Color-flow triplex imaging with spectral analysis and compression Doppler were performed on the left lower extremity. FINDINGS: Respiratory variation, normal compression and augmented flow are noted throughout the left lower extremity. The visualized common femoral vein, superficial femoral vein, profunda femoral vein, popliteal vein and midcalf peroneal and posterior tibial venous segments show no evidence of deep venous thrombosis. There is no Walton's cyst. US/US venous duplex LE LT IMPRESSION: No evidence of deep venous thrombosis involving the left lower extremity. Electronically signed by: Erik Zimmerman MD 10/21/2024 09:07 AM EDT
--- NOTE | ~2024-10-21 | XR_ITS ---
EXAMINATION: XR CHEST CLINICAL INFORMATION: SOB w/cough COMPARISON: September 28, 2024 TECHNIQUE: Frontal view of the chest was obtained. FINDINGS: Pulmonary reticular pattern. Prominence of the interstitial markings bilaterally. Bilateral apical lung scarring. No gross pneumothorax. Questionable blunting left costophrenic angle. Cardiomediastinal silhouette size is normal. Calcified plaque thoracic aorta. Multilevel thoracic and upper lumbar spondylosis. Metallic prosthesis right glenohumeral joint and proximal right humerus. XR/XR chest 1V IMPRESSION: Concerning acute on chronic airspace disease versus mild interstitial lung edema. Electronically signed by: Filippo Prieto MD 10/21/2024 08:28 AM EDT
--- NOTE | ~2024-10-21 | CT_ITS ---
EXAMINATION: CT ANGIOGRAM CHEST CLINICAL INFORMATION: Shortness of breath, worse with exertion, hypoxia COMPARISON: September 13, 2024 TECHNIQUE: Multiple axial images were obtained through the chest after the administration of 65 mL of Omnipaque 350 intravenous contrast. Extensive vascular post-processing including two-dimensional and three-dimensional reformatted images were created and reviewed on an independent workstation. This CT examination was performed using dose optimization techniques as appropriate, variously including the following: *Automated exposure control *Adjustment of mA and/or kV according to patient size (this includes techniques or standardized protocols for targeted exams where dose is matched to indication/reason for exam; i.e. extremities or head) *Use of iterative reconstruction technique DLP: 432 mGY*cm FINDINGS: QUALITY OF STUDY/CONTRAST BOLUS: Suboptimal with incomplete opacification of some secondary and tertiary branches. PULMONARY ARTERIES: The main pulmonary artery diameter is 36 mm. The ascending aorta diameter is 36 mm. This raises suspicion for possible pulmonary arterial hypertension. No definite filling defects are identified THORACIC AORTA: Unremarkable LUNGS AND PLEURA: Pulmonary vessels are mildly enlarged. There is increased intralobular septal thickening compared to the prior. Left lower lobe atelectasis present on the prior has resolved. There is subsegmental atelectasis in the posterior segment right lower lobe. There is no pleural effusion MEDIASTINUM: There are shotty mediastinal lymph nodes with mildly enlarged bilateral hilar lymph nodes appear similar to the prior. The heart size is enlarged. CORONARY ARTERY CALCIFICATION: Present CHEST WALL/AXILLA: No axillary or internal mammary lymphadenopathy. UPPER ABDOMEN: Focal calcification is again noted in the left lateral superior segment of the liver, possibly a calcified granuloma. There is a bulky appearance of the adrenal glands, stable BONES: Reverse total shoulder arthroplasty is partially imaged on the right. Mild degenerative changes are evident in the thoracic spine. CT/CT angio chest PE protocol IMPRESSION: No central pulmonary embolus. Suboptimal study. Suspected pulmonary vascular congestion/interstitial edema: Pulmonary vessels appear mildly enlarged and there is intralobular septal thickening in the upper lungs that is new since the prior. Cardiomegaly is also present. Borderline enlargement of the pulmonary artery is suggestive of underlying pulmonary arterial hypertension. Stable mild bilateral hilar adenopathy. Interval resolution of left lower lobe atelectasis with new subsegmental atelectasis in the posterior segment right lower lobe. Fleischner guidelines were followed. Electronically signed by: William Phelps MD 10/21/2024 10:06 AM EDT
--- OUTSIDE RECORDS SUMMARY | 2024-10-21 07:49 | XMS_ITS | Encounter Summary ---
Author Organization [facility] Address [address] [place] [address] Care Team Providers Care Foreman Shipping Department Name Role Phone Dottie Douglass MD Primary Care Provider [phone] Encounter Details Date Type Department Care Team (Late st Contact Info) Description 01/02/2018 Scanned Document [facility] Plastic & Reconstructive Surgery [place] [address] [facility] [address] [place] [address] Nito Epperson MD [address] [facility] [address] [place] [address] Social History Tobacco Use Types Packs/Day Years [...] on filedocumented in this encounter Care Teams Foreman Shipping Department Relationship Specialty Start Date End Date Dottie Douglass MD PCP - General Internal Medicine 08/04/17 documented as of this encounter
--- OUTSIDE RECORDS SUMMARY | 2024-10-21 07:50 | XMS_ITS | Clinical Summary ---
Author Organization [facility] Address [address] [place] [address] Care Team Providers Care Child Nutrition Assistant Name Role Phone Dottie Douglass MD Primary Care Provider [phone] Allergies Active Allergy Reactions Criticality Noted Date [...] T PO BID 0 06/17/19 19 Active Vascular ImagingTOUCH ULTRA CONTROL solution See admin instructions. 0 [...] Date Smoking Tobacco: Every Day Cigarettes 1 51.7 Started: 1972 Pipe Smokeless Tobacco: Never Comments:PIPE [...] COVID-19 Vaccine (1 - 2023-2 5 season) 2024 Influenza Vaccine (#1) 2024 HPV Vaccines Aged [...] complete this topic Insurance [employer] Care Teams Child Nutrition Assistant Relationship Specialty Start Date End Date Dottie Douglass MD [address] [address] PCP - General Internal Medicine 10/13/20
--- OUTSIDE RECORDS SUMMARY | 2024-10-21 07:50 | XMS_ITS | Encounter Summary ---
Author Organization [facility] Address [address] [place] [address] Care Team Providers Care Diesel Roller Operator Name Role Phone Dottie Douglass MD Primary Care Provider [phone] Encounter Details Date Type Department Care Team (Late st Contact Info) Description 09/25/2017 Scanned Document [facility] Plastic & Reconstructive Surgery [address] [place] [address] Nito Epperson MD [address] [facility] [address] [place] [address] Social History Tobacco Use Types Packs/Day Years [...] on filedocumented in this encounter Care Teams Diesel Roller Operator Relationship Specialty Start Date End Date Dottie Douglass MD PCP - General Internal Medicine 08/04/17 documented as of this encounter
--- OUTSIDE RECORDS SUMMARY | 2024-10-21 07:50 | XMS_ITS | Clinical Summary ---
Author Organization [facility] Address [address] [place] [address] Care Team Providers Care Materials Coordinator Name Role Phone Dottie Douglass MD Primary Care Provider [phone] Allergies Active Allergy Reactions Criticality Noted Date [...] (four) hours as needed. 5 Active butalbital-aspir ip-bkdzzfza-vlfc ine (FioriNAL WITH CODEINE) [id number] MG capsule Take 1 capsule by mouth [...] 70 03/25/2019 7:15 AM EST Temperature 36 C (96.8 F) 03/25/2019 7:15 AM EST Respiratory Rate 18 [...] 60-74 years 1-dose series) 2021 Influenza Vaccine 09/17/2024 Hemoglobin A1C Discontinued 03/24/2019 Hepatitis B Vaccines [...] 9.0(H) <5.7 % [facility] Comment: A1c% Interpretation 5.7 - 6.0 Increase risk of diabetes 6.1 - 6.4 Higher risk of diabetes > or = 6.5 Consistent with diabetes Diabetes Care, 33(Supp 1):S1-S61, 2010 Estimated Average Glucose 212 mg/dL [facility] 03/24/2019 6:20 AM EST 03/24/2019 6:48 AM EST us Nito Epperson MD LAB BLOOD ORDERABLES Fi nal Result HOSPITAL LAB from Last 3 Months or Most Recently Relevant to Health Maintenance Insurance [facility] Advance Directives * Full Code (Latest Code Status on File) Date Activated Date Inactivated Comments 03/24/2019 5:36 AM Question Answer Comments Decision Thoroughly Discussed with: Patient * Full Code Date Activated Date Inactivated Comments 03/23/2019 9:33 AM 03/24/2019 5:36 AM Care Teams Materials Coordinator Relationship Specialty Start Date End Date Dottie Douglass MD PCP - General Internal Medicine 08/04/17
--- OUTSIDE RECORDS SUMMARY | 2024-10-21 07:50 | XMS_ITS | Patient Health Record ---
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 analgesic (Z79.891) Active confirmed Plan Of Treatment Pending Test Test Name Order Date COCAINE QUANTITATIVE 05/07/2022 OXYCODONE QUANTITATIVE 05/07/2022 BARBITURATES QUANTITATIVE 05/07/2022 METHADONE QUANTITATIVE 05/07/2022 MDMA (ECSTASY) QUANTITATIVE 05/07/2022 TRAMADOL QUANTITATIVE 05/07/2022 FENTANYL QUANTITATIVE 05/07/2022 BUPRENORPHINE QUANTITATIVE 05/07/2022 BENZODIAZEPINE QUANTITATIVE 05/07/2022 OPIATES QUANTITATIVE 05/07/2022 MUSCLE RELAXANT, QUANTITATIVE 05/07/2022 Amphetamine 05/07/2022 LAB REPORT 05/07/2022 [place] DRUG PANEL,UR 05/07/2022 Insurance Providers Payer Name Payer Address Payer Phone Subscriber Number Group Number Insured Name Patient Relationship to Insured Coverage Start Date Coverage End Date [place] [employer] [address] [place] [address] [id number] BRITNEY Keane Spouse - patient is the [...]
--- NOTE | 2024-10-21 08:01 | PC.NURSE ---
Pt reports 3 days of increasing SOB, recent pneumonia, still smoking, on 4 ltr home O2; pt reports CP R sided radiating laterally to the left; denies fever; LS coarse throughout, L>R with expiratory wheezes upper [place] after Duoneb X2; + congested cough; SR per tele; + swelling L leg and 2+pitting pedal edema to L foot; provider at bedside to cat
[2024-10-21 08:14] LABS: MANUAL DIFF FLAG NO
--- NOTE | 2024-10-21 08:14 | ED_ITS ---
HPI - General Adult General Chief complaint: Dyspnea Stated complaint: DIFFICULTY BREATHING Time Seen by Provider: 10/21/24 07:56 Source: patient and family ( at bedside corroborating history) Mode of arrival: EMS Limitations: no limitations History of Present Illness ED Provider: Gabe Steel PA-C HPI narrative: 64-year-old female with medical history of Sjogren's disease, IDT2DM, nicotine dependence with 40+ pack year smoking history, RA on hydroxychloroquine, fibromyalgia on terminal manager opiates, GERD, COPD on 4 L p.r.n., asthma, polycythemia, recent admission for pneumonia/acute respiratory failure with DC on 10/01/24 presents to ED due to 3 days of worsening dyspnea on exertion, with midsternal chest pain that is worse with exertion, and deep inspiration. Patient states chest pain feels like a pressure on her chest. Patient reports shortness of breath, chest pain is not there when at rest. Patient states she is on 4 L p.r.n. for oxygen, with increased use over the past 3 days, reports O2 sat dropping to low 80s when ambulating. Patient states she has a cough at baseline due to Sjogren's, however has been progressively worsening last 3 days with clear sputum. Additionally patient states her left leg has been swelling with pitting edema, with a heaviness and difficulty/pain with walking. Denies fevers, chills, abdominal pain, diarrhea, black/tarry stool, lightheadedness, dizziness Related Data Home Medications ?Medication ?Instructions ?Recorded ?Confirmed aspirin 325 mg tablet 325 mg PO BID@09/1710/21/24 hydroxychloroquine 200 mg tablet 200 mg PO DAILY@2907/27/24 10/21/24 insulin lispro 100 unit/mL 25 unit subcut TIDAC 10/21/24 subcutaneous pen (Humalog KwikPen (U-100) Insulin) losartan 25 mg tablet 25 mg PO DAILY@2907/27/24 10/21/24 magnesium oxide 400 mg (241.3 mg 400 mg PO DAILY@2907/27/24 10/21/24 magnesium) tablet metformin 1,000 mg tablet 1,000 mg PO BID@10/21/24 mupirocin 2 % topical ointment 1 appl topical DAILY WA N AFFECTED 07/27/24 10/21/24 AREA pramipexole 0.25 mg tablet 0.25 mg PO DAILY@1230 07/2710/21/24 pramipexole 0.25 mg tablet 0.5 mg PO BEDTIME@0030 07/1810/21/24 pregabalin 75 mg capsule (Lyrica) 75 mg PO DAILY@0030 07/27/24 10/21/24 albuterol sulfate 90 mcg/actuation 2 puff inhalation Q 6H PRN wheezing 09/13/24 10/21/24 aerosol inhaler baclofen 10 mg tablet 10 mg PO BID PRN Muscle Pain 09/13/24 10/21/24 montelukast 10 mg tablet 10 mg PO BEDTIME@2910/21/24 pantoprazole 40 mg tablet,delayed 40 mg PO DAILY@62909/13/24 10/21/24 release tiotropium 2.5 mcg-olodaterol 2.5 2 puff inhalation DA LAMONTE@122909/13/24 10/21/24 mcg/actuation mist for inhalation (Stiolto Respimat) furosemide 40 mg tablet (Lasix) 40 mg PO DAILY@0 10/21/24 insulin glargine 100 unit/mL (3 40 unit subcut DAILY@0 030 09/28/24 10/21/24 mL) subcutaneous pen (Lantus Solostar U-100 Insulin) Previous Rx's ?Medication ?Instructions ?Recorded blood-glucose meter #1 ea 08/25/23 FreeStyle Mag 3 Plus Sensor #6 ea 12/16/23 (blood-glucose sensor) FreeStyle Mag 3 [place] #1 ea 12/16/23 (blood-glucose,stope miner,cont) Oxygen Home Use #1 ea 04/16/24 Dexcom G7 Junior Project Manager #1 ea 08/09/24 (blood-glucose,stope miner,cont) Dexcom G7 Sensor (blood-glucose #6 ea 08/09/24 sensor) amlodipine 10 mg tablet 10 mg PO DAILY@0030 #90 tabs 08/09/24 ondansetron 4 mg disintegrating 4 mg PO Q8H PRN nausea and 08/09/24 tablet vomiting #30 tabs lksruhm-vhtjzxsmxk-MZV-caffeine 30 1 cap PO QID PRN he adache 28 days 09/23/24 mg-50 mg-325 mg-40 mg capsule #28 caps morphine 30 mg tablet,extended 30 mg PO BID@0030,1230 28 days #56 10/20/24 release tabs oxycodone 10 mg tablet 10 mg PO QID PRN pain 28 day s #112 10/20/24 tabs cyclobenzaprine 5 mg tablet 5 mg PO TID PRN spasm back 3 days 10/24/24 #9 tabs doxycycline monohydrate 100 mg 100 mg PO Q12H 7 days # 14 caps 10/24/24 capsule lidocaine 4 % topical patch 3 patch transdermal DAILY 7 days 10/24/24 (Lidocaine Pain Relief) #21 ea prednisone 20 mg tablet 40 mg (2 x 20 mg) PO DAILY 7 days 10/24/24 #14 tabs Allergies Allergy/AdvReac Type Severity Reaction Status Date / Time atorvastatin (From LIPITOR) Allergy Severe Difficulty Verified 10/21/24 07:31 Breathing azithromycin (AZITHROMYCIN) Allergy Severe Difficulty Verified 10/21/24 07:31 Breathing mite-Dermatophagoides Allergy Severe Difficulty Verified 10/21/24 07:31 farinae, vicente (dust mite - Breathing [place]) sumatriptan (From IMITREX) Allergy Severe Difficulty Verified 10/21/24 07:31 Breathing house dust Allergy Mild Unknown Verified 10/21/24 07:31 acetaminophen (From TYLENOL) Allergy Unknown Itching Verified 10/21/24 07:31 adhesive tape (ADHESIVE TAPE) Allergy Unknown Rash Verified 10/21/24 07:31 gentamicin (GENTAMICIN) Allergy Unknown Rash Verified 10/21/24 07:31 adalimumab (From Humira) Allergy Rash Verified 10/21/24 07:31 erythromycin base Allergy Unknown Verified 10/21/24 07:31 haloperidol (From HALDOL) AdvReac Unknown GI Issues Verified 10/21/24 07:31 ketorolac (From TORADOL) AdvReac Unknown Muscle Verified 10/21/24 07:31 cramps prasterone (DHEA) (From DHEA) AdvReac Unknown Cardiac Verified 10/21/24 07:31 issues varenicline (From CHANTIX) AdvReac Unknown Seizure Verified 10/21/24 07:31 ipratropium (From Atrovent) AdvReac Migraine Verified 10/21/24 07:31 Review of Systems 2 Review of Systems: CONST: Negative for fever, body aches and chills. HENT: Negative for neck pain/stiffness, headache, congestion, sore throat, swelling. EYES: Negative for discharge/pain or vision changes. RESP: Negative for hemoptysis. POS SOB, cough with clear sputum CV: Negative palpitations. POS mid sternal chest pain, difficulty breathing ABD: Negative pain, nausea, vomiting. : Negative increase frequency, dysuria, blood in urine or stool. MUSC: Negative for muscle aches, edema. POS L leg swelling with pitting edema SKIN: Negative rash, lesions/sores. NEURO: Negative headache, dizziness, weakness. Yes all other systems are reviewed and are negative PMFSH Past Medical History Attestation statement: The following information was validated with the patient. Source: old records reviewed and nursing notes reviewed Medical History Pulmonary hypertension Tobacco dependence due to cigarettes Diabetes mellitus with hyperglycemia Chronic pain syndrome skilled nursing (current) use of opiate analgesic Osteoporosis Sjogrens syndrome Rheumatoid arthritis Osteoarthritis Chronic, continuous use of opioids GERD (gastroesophageal reflux disease) Hx of difficult intubation Smoker COPD (chronic obstructive pulmonary disease) Asthma Polycythemia Boils Eczema Bursitis Disc degeneration Sleep apnea Diabetes Fibromyalgia Surgical History History of esophagogastroduodenoscopy (EGD) Hx of tonsillectomy History of surgical removal of pilonidal cyst Hx of plastic surgery Hx of hysterectomy Hx of cholecystectomy Hx of appendectomy History of colonoscopy History of bladder suspension procedure History of removal of cyst Family History Family History Mother Polycythemia TIA (transient ischemic attack) Father Heart attack Other No family history of cancer Social History Social History Household Members: Spouse Housing: House Are you a primary care taker to a significant other at home: No Do you presently have visiting nurse or other home services: Yes Alcohol intake: never Comment: pt refusing alarms Patient Tobacco Use Status: Current everyday Tobacco user Tobacco use type: Cigarette Cigarette Packs Per Day: 1 Cigarettes Per Day: 20.0 Years Smoked: 51 e-Cigarette/Vaping Use: Never Used Second Hand Smoke Exposure: No Advance Directives Date on File: 12/24/19 service: No Current occupational status: retired 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 Cognitive needs: No Hearing needs: No Vision needs: No Physical Exam ED Vital Signs: Vital Signs - 24 hr 10/21/24 07:27 10/21/24 08:40 10/21/24 10:05 Temperature 98.6 F 97.9 F Pulse Rate 86 78 82 Respiratory Rate 20 17 20 Blood Pressure 126/61 114/52 L Pulse Oximetry 93 94 Oxygen Delivery Method Nasal Cannula Nasal Cannula Oxygen Flow Rate 4 4 10/21/24 12:01 10/21/24 13:58 10/21/24 14:06 Temperature 98.6 F Pulse Rate 84 79 84 Respiratory Rate 18 18 18 Blood Pressure 108/53 L 137/62 Pulse Oximetry 92 92 Oxygen Delivery Method Nasal Cannula Nasal Cannula Oxygen Flow Rate 4 4 BMI result Body Mass Index 34.8 GENERAL APPEARANCE: ?AxOx4, chronically ill appearing, no acute distress. HEENT: ?NC, AT. MMM. EOMI, clear conjunctiva, oropharynx clear. NECK: ?Supple without lymphadenopathy.? No stiffness or restricted ROM. HEART:? Normal rate and regular rhythm, normal S1/S2, no m/r/g LUNGS: Coarse lung sounds throughout all [place], diminished lung sounds at bilateral bases, expiratory wheeze ABDOMEN: ?Soft, nontender, nondistended BACK: No CVAT, no obvious deformity. EXTREMITIES: ?Without cyanosis, clubbing. Left leg with 2+ pitting edema, cooler than right leg however DP pulses 2+ bilaterally, popliteal pulses 2+ bilaterally, TTP of left calf with positive Homans sign. See photos NEUROLOGICAL: ?Grossly nonfocal. Alert and oriented, moving all 4 extremities. Skin: ?Warm and dry without any rash. Medications Administered Discontinued Medications Generic Name Dose Route Start Last Admin Trade Name Freq PRN Reason Stop Dose Admin Albuterol Sulfate 5 mg/ 7.5 mg 10/21/24 08:35 10/21/24 08:38 Albuterol Sulfate 2.5 mg INHALE 10/21/24 08:36 7.5 mg ONCE ONE Administration Albuterol Sulfate 2.5 mg/ 5 mg 10/21/24 13:55 10/21/24 13:58 Albuterol Sulfate 2.5 mg INHALE 10/21/24 13:56 5 mg ONCE ONE Administration Albuterol Sulfate 2.5 mg 10/21/24 20:40 10/23/24 23:33 Albuterol Sulfate (0.083%) 2.5 Mg/3 Ml Vial.Neb INHALE 2.5 mg Q6H PRN Administration Shortness of Breath/Wheezing Amlodipine Besylate 10 mg 10/22/24 00:30 10/24/24 00:25 Amlodipine Besylate 10 Mg Tablet PO 10 mg DAILY@0030 BETSEY Administration Protocol Aspirin 325 mg 10/22/24 00:30 10/24/24 12:28 Aspirin 325 Mg Tablet PO 325 mg BID@0030,1230 BETSEY Administration Baclofen 10 mg 10/21/24 15:49 10/23/24 07:55 Baclofen 10 Mg Tablet PO 10 mg BID PRN Administration Muscle Pain Ceftriaxone Sodium 1 gm 10/21/24 10:29 10/21/24 12:25 Ceftriaxone Sodium 1 Gm Vial IVPUSH 10/21/24 10:30 1 gm ONCE ONE Administration Doxycycline Monohydrate 100 mg 10/22/24 18:00 10/24/24 06:07 Doxycycline Monohydrate 100 Mg Capsule PO 100 mg Q12H BETSEY Administration Enoxaparin Sodium 40 mg 10/21/24 15:45 10/23/24 16:28 Enoxaparin Sodium 40 Mg/0.4 Ml Syringe SUBCUT 40 mg Q24H BETSEY Administration Furosemide 40 mg 10/22/24 12:30 10/22/24 11:50 Furosemide 40 Mg Tablet PO 40 mg DAILY@1230 BETSEY Administration Protocol Furosemide 40 mg 10/22/24 16:00 10/24/24 09:03 Furosemide 40 Mg/4 Ml Vial IVPUSH 40 mg DAILY BETSEY Administration Protocol Hydroxychloroquine Sulfate 200 mg 10/22/24 00:30 10/24/24 00:25 Hydroxychloroquine Sulfate 200 Mg Tablet PO 200 mg DAILY@0030 BETSEY Administration Magnesium Sulfate 2 gm in 50 mls @ 150 mls/hr 10/21/24 08:22 10/21/24 09:54 Magnesium Sulfate/H2o IV 10/21/24 08:41 Infused ONCE ONE Infusion Doxycycline Hyclate 100 mg/ 250 mls @ 166.67 mls/hr 10/21/24 10:31 10/21/24 14:08 Sodium Chloride IV 10/21/24 12:00 Infused ONCE ONE Infusion Sodium Chloride 1,000 mls @ 999 mls/hr 10/21/24 14:39 10/21/24 16:13 Ns IV 10/21/24 15:39 Infused .Q1H1M ONE Infusion Insulin Glargine 40 unit 10/21/24 22:00 10/24/24 00:26 Insulin Glargine,Hum.Rec.Anlog 100 Unit/Ml 10 Ml Vial SUBCUT 40 unit DAILY@0030 BETSEY Administration Insulin Human Lispro 0 unit 10/21/24 16:30 10/24/24 12:29 Insulin Lispro 100 Unit/Ml 3 Ml Vial SUBCUT 4 unit QIDACHS [facility] Administration Protocol Insulin Human Lispro 25 unit 10/22/24 07:30 10/24/24 12:29 Insulin Lispro 100 Unit/Ml 3 Ml Vial SUBCUT 25 unit TIDAC [facility] Administration Insulin Human Lispro 6 unit 10/22/24 08:40 10/22/24 08:54 Insulin Lispro 100 Unit/Ml 3 Ml Vial SUBCUT 10/22/24 08:41 6 unit ONCE ONE Administration Iohexol 100 ml 10/21/24 09:42 10/21/24 09:42 Iohexol 350 Mg/Ml 100 Ml Infus..Btl IV 10/21/24 09:43 65 ml ONCE ONE Administration Lidocaine 1 patch 10/22/24 16:00 10/24/24 09:09 Lidocaine 4 % Patch Adh..Patch TRANSDERMA 1 patch DAILY [facility] Administration Protocol Losartan Potassium 25 mg 10/22/24 00:30 10/24/24 00:25 Losartan Potassium 25 Mg Tablet PO 25 mg DAILY@0030 [facility] Administration Protocol Magnesium Oxide 400 mg 10/22/24 00:30 10/24/24 00:24 Magnesium Oxide 400 Mg Tablet PO 400 mg DAILY@0030 BETSEY Administration Methylprednisolone Sodium Succinate 40 mg 10/21/24 20:00 10/24/24 09:03 Methylprednisolone Sod Succ 40 Mg/Ml Vial IVPUSH 40 mg Q12H BETSEY Administration Montelukast Sodium 10 mg 10/22/24 00:30 10/24/24 00:24 Montelukast Sodium 10 Mg Tablet PO 10 mg BEDTIME@0030 BETSEY Administration Morphine Sulfate 30 mg 10/22/24 00:30 10/24/24 12:28 Morphine Sulfate Er 30 Mg Tablet.Er PO 30 mg BID@0030,1230 BETSEY Administration Nicotine 14 mg 10/21/24 23:55 10/24/24 09:03 Nicotine 14 Mg Patch.Td24 TRANSDERMA 14 mg DAILY BETSEY Administration Omeprazole 20 mg 10/22/24 06:30 10/24/24 06:06 Omeprazole 20 Mg Capsule.Dr PO 20 mg DAILY@0630 BETSEY Administration Ondansetron HCl 4 mg 10/23/24 16:56 10/23/24 17:09 Ondansetron Odt 4 Mg Tab.Rapdis TRANSLINGU 4 mg Q8H PRN Administration Nausea and Vomiting Oxycodone HCl 10 mg 10/21/24 09:58 10/21/24 10:29 Oxycodone Hcl Immed Release 5 Mg Tablet PO 10/21/24 09:59 10 mg ONCE ONE Administration Oxycodone HCl 10 mg 10/21/24 15:54 10/23/24 07:56 Oxycodone Hcl Immed Release 5 Mg Tablet PO 10 mg QID PRN Administration Pain, Moderate(Pain Scale 4-6) Oxycodone HCl 5 mg 10/22/24 15:56 10/24/24 06:07 Oxycodone Hcl Immed Release 5 Mg Tablet PO 5 mg BID PRN Administration severe pain Oxycodone HCl 10 mg 10/23/24 13:00 10/24/24 12:28 Oxycodone Hcl Immed Release 5 Mg Tablet PO 10 mg QID BETSEY Administration Pramipexole Dihydrochloride 0.5 mg 10/22/24 00:30 10/24/24 00:25 Pramipexole Di-Hcl 0.25 Mg Tablet PO 0.5 mg BEDTIME@0030 BETSEY Administration Pramipexole Dihydrochloride 0.25 mg 10/22/24 12:30 10/24/24 12:28 Pramipexole Di-Hcl 0.25 Mg Tablet PO 0.25 mg DAILY@1230 BETSEY Administration Pregabalin 75 mg 10/22/24 00:30 10/24/24 00:25 Pregabalin 75 Mg Capsule PO 75 mg DAILY@0030 BETSEY Administration Sodium Chloride 3 ml 10/21/24 16:00 10/24/24 09:15 0.9 % Sodium Chloride Flush 3 Ml Syringe IVFLUSH 3 ml [facility] Administration Medical Decision Making Medical Decision Making [facility] Narrative: 64-year-old female with medical history of Sjogren's disease, IDT2DM, nicotine dependence with 40+ pack year smoking history, RA on hydroxychloroquine, fibromyalgia on terminal manager opiates, GERD, COPD on 4 L p.r.n., asthma, polycythemia, recent admission for pneumonia/acute respiratory failure with DC on 10/01/24 presents to ED due to 3 days of worsening dyspnea on exertion, with midsternal chest pain that is worse with exertion, and deep inspiration. Patient has left leg with increased swelling, 2+ pitting edema, pain with ambulation. VS on initial observation-BP 126/61, pulse rate 86, respiratory rate of 20, afebrile with oral temp of 98.6?, O2 saturation 93% on 4 L NC. Plan: Labs, EKG, CXR, U/S L LE, CTA chest Labs without leukocytosis/leukopenia, H&H stable, no electrolyte abnormalities, random glucose is 134. Carbon dioxide is elevated at 33 however on chart review this is around patient's baseline. Viral serology negative. at 14:08 on 10/21/2024 I suspected infection with CXR revealing acute on chronic airspace disease Versed mild interstitial lung edema- patient medicated with 1g ceftriaxone and 100 mg of doxycycline for coverage, does not meet sepsis criteria at this time. CTA negative for pulmonary embolism. Ultrasound of bilateral extremities negative for DVT. I spoke with Hospitalist OUMOU rick who will admit to medicine for hypoxia. Differential Diagnosis Differential Diagnoses: The differential diagnosis associated with the presentation includes COPD exacerbation Pulmonary embolism DVT Admission/Observation Consideration of admission/observation: Escalation of care including admission/observation considered Consult Healthcare Provider Management of the patient was discussed with: Hospitalist (Hospitalist OUMOU Abdalla) Lab Data [facility] Lab Attestation statement: I reviewed the patient's lab results. 10/24/24 07:43 10/24/24 07:43 Labs: Lab Results 10/21/24 10/21/24 10/21/24 Range/Units 08:03 08:05 10:51 WBC 8.2 (4.8-10.8) X10*3/uL RBC 5.72 H (4.20-5.50) X10*6/uL Hgb 15.4 (12.0-16.0) g/dl Hct 47.5 H (37.0-47.0) % MCV 83.0 (80.0-98.0) fL MCH 26.9 L (27.0-33.0) pg MCHC 32.4 (31.0-35.0) g/dl RDW 17.3 H (11.0-16.0) % Plt Count 248 (160-400) X10*3/uL MPV 9.2 L (9.4-12.3) fL Immature Gran % (Auto) 0.8 H (0.0-0.4) % Neut % (Auto) 58.9 (45-73) % Lymph % (Auto) 30.5 (20-40) % [place] % (Auto) 5.8 (2-11) % Eos % (Auto) 3.3 (0-4) % Baso % (Auto) 0.7 (0-2) % Lymph # (Auto) 2.5 (1.2-4.9) X10*3/uL [place] # (Auto) 0.5 (0.1-1.2) X10*3/uL Eos # (Auto) 0.3 (0.0-0.4) X10*3/uL Baso # (Auto) 0.1 (0.0-0.2) X10*3/uL Abs Immat Gran (auto) 0.07 H (0.00-0.03) X10*3/uL Absolute Neuts (auto) 4.9 (2.0-8.3) x10*3/uL Absolute Nucleated RBC 0.000 (0.0-0.012) X10*3/uL Nucleated RBC % (auto) 0.0 (0.0-0.2) /100WBC PT 12.1 (10.9-12.4) SEC INR 1.1 (0.9-1.1) VBG pH (7.32-7.43) VBG pCO2 mmHg VBG pO2 mmHg VBG HCO3 (22-26) mmol/L VBG O2 Saturation % VBG Base Excess mmol/L Sodium 140 (135-145) mmol/L Potassium 4.2 (3.3-5.1) mmol/L Chloride 99 (96-108) mmol/L Carbon Dioxide 33 H (22-29) mmol/L Anion Gap 12 (12-20) BUN 11 (9-16) mg/dL Creatinine 0.60 (0.5-1.4) mg/dL Estim Creat Clear Calc 105.5 Estimated GFR > 60 POC Glucose (60-115) mg/dL Random Glucose 134 H (60-115) mg/dL Calcium 9.1 (8.4-10.2) mg/dL Magnesium 1.8 (1.6-2.6) mg/dL Total Bilirubin 0.3 (0.0-1.0) mg/dL AST 26 (5-31) U/L ALT 19 (0-31) U/L Alkaline Phosphatase 84 (39-117) U/L Troponin I High Sens 5.0 D 5.9 (<3.5-17.0) ng/L B-Natriuretic Peptide 70 (<100) pg/mL Total Protein 6.5 (6.5-8.0) g/dL Albumin 3.6 (3.5-5.0) g/dL COVID-19 ([facility]S[place]AT) Negative (Negative) COVID-19 Clin Com See Note Influenza Type A (RUTH ANN) Negative (Negative) Influenza Type B (RUTH ANN) Negative (Negative) Influenza A & B Note See Note 10/21/24 10/21/24 Range/Units 12:42 14:30 WBC (4.8-10.8) X10*3/uL RBC (4.20-5.50) X10*6/uL Hgb (12.0-16.0) g/dl Hct (37.0-47.0) % MCV (80.0-98.0) fL MCH (27.0-33.0) pg MCHC (31.0-35.0) g/dl RDW (11.0-16.0) % Plt Count (160-400) X10*3/uL MPV (9.4-12.3) fL Immature Gran % (Auto) (0.0-0.4) % Neut % (Auto) (45-73) % Lymph % (Auto) (20-40) % [place] % (Auto) (2-11) % Eos % (Auto) (0-4) % Baso % (Auto) (0-2) % Lymph # (Auto) (1.2-4.9) X10*3/uL [place] # (Auto) (0.1-1.2) X10*3/uL Eos # (Auto) (0.0-0.4) X10*3/uL Baso # (Auto) (0.0-0.2) X10*3/uL Abs Immat Gran (auto) (0.00-0.03) X10*3/uL Absolute Neuts (auto) (2.0-8.3) x10*3/uL Absolute Nucleated RBC (0.0-0.012) X10*3/uL Nucleated RBC % (auto) (0.0-0.2) /100WBC PT (10.9-12.4) SEC INR (0.9-1.1) VBG pH 7.36 (7.32-7.43) VBG pCO2 54 mmHg VBG pO2 82 mmHg VBG HCO3 31 H (22-26) mmol/L VBG O2 Saturation 97.0 % VBG Base Excess 4.0 mmol/L Sodium (135-145) mmol/L Potassium (3.3-5.1) mmol/L Chloride (96-108) mmol/L Carbon Dioxide (22-29) mmol/L Anion Gap (12-20) BUN (9-16) mg/dL Creatinine (0.5-1.4) mg/dL Estim Creat Clear Calc Estimated GFR POC Glucose 393 H* (60-115) mg/dL Random Glucose (60-115) mg/dL Calcium (8.4-10.2) mg/dL Magnesium (1.6-2.6) mg/dL Total Bilirubin (0.0-1.0) mg/dL AST (5-31) U/L ALT (0-31) U/L Alkaline Phosphatase (39-117) U/L Troponin I High Sens (<3.5-17.0) ng/L B-Natriuretic Peptide (<100) pg/mL Total Protein (6.5-8.0) g/dL Albumin (3.5-5.0) g/dL COVID-19 ([place]) (Negative) COVID-19 Clin Com Influenza Type A (RUTH ANN) (Negative) Influenza Type B (RUTH ANN) (Negative) Influenza A & B Note Independent Interpretation I performed an independent interpretation of an: EKG Interpretation: I independently interpreted the EKG which revealed normal sinus rhythm with left posterior fascicular block without ST-elevation/depression, T-wave abnormality, when comparing this EKG with a prior taken on 09/28/2024 no changes found Vent. Rate : 83 BPM Atrial Rate : 83 BPM P-R Int : 146 ms QRS Dur : 86 ms QT Int : 362 ms P-R-T Axes : 52 113 31 degrees QTcB Int : 425 ms Normal sinus rhythm Possible Left atrial enlargement Left posterior fascicular block Abnormal ECG When compared with ECG of 28-Sep-2024 05:17, No significant change was found Radiology Impression Discussion of test interpretation with radiology: I have reviewed the radiologist's reading. Radiologist Impression: I personally interpreted the CXR which reveals acute on chronic airspace disease, I agree with the radiologist's interpretation I personally interpreted the CTA which was negative for pulmonary embolism, I agree with the radiologist's interpretation I personally interpreted the ultrasound of bilateral lower extremities which was negative for DVT, I agree with the radiologist's interpretation External Record Review External record reviewed: Inpatient record, Office record and Outpatient record Chronic Conditions Patient?s care impacted by: Diabetes and Other (Sjogren's disease, rheumatoid arthritis, fibromyalgia, GERD, COPD, asthma, polycythemia,) Social Determinants Patient?s care significantly limited by Social Determinants of Health including: Other Social Determinant of Health Critical Care Time Critical Care Time Total Critical Care Time: 53 Attestation: I personally provided 53 minutes of critical care time for this patient with COPD exacerbation including advanced imaging, interpreting lab work, discussing patient with consultants and frequent monitoring of vital signs to ensure well- being. Discharge Plan Discharge Clinical Impression: Dyspnea on exertion Patient Disposition: Admitted As Inpatient Interventions: Admission Worksheet (ED) Last Done: 10/21/24 20:23 Discharge Date/Time: 10/21/24 21:28
[2024-10-21 08:18] LABS: Hematocrit 47.5 % (37.0-47.0); Hemoglobin 15.4 g/dl (12.0-16.0); Imm Gran Abs Auto 0.07 X10*3/uL (0.00-0.03); Imm Gran Pct Auto 0.8 % (0.0-0.4); Lymphocytes Absolute Auto 2.5 X10*3/uL (1.2-4.9); Mean Corpuscular HGB Conc 32.4 g/dl (31.0-35.0); Mean Corpuscular Hemoglobin 26.9 pg (27.0-33.0); Mean Corpuscular Volume 83.0 fL (80.0-98.0); NRBC Abs Auto 0.000 X10*3/uL (0.0-0.012); NRBC Pct Auto 0.0 /100WBC (0.0-0.2); Platelet Count 248 X10*3/uL (160-400); Red Blood Count 5.72 X10*6/uL (4.20-5.50); White Blood Count 8.2 X10*3/uL (4.8-10.8)
[2024-10-21 08:22] LABS: INTERNATIONAL NORM RATIO 1.1 (0.9-1.1); Prothrombin Time 12.1 SEC (10.9-12.4)
[2024-10-21] MEDS: Magnesium Sulfate/H2O 2 GM/50 ML PIGGYBACK IV (08:30)
[2024-10-21 08:37] LABS: COVID-19 Test Negative (Negative); IDNOW Serial# 55D5AD1C
[2024-10-21] MEDS: Albuterol Sulfate 5 MG, Albuterol Sulfate (0.083%) 2.5 MG 7.5 MG INHALE (08:38)
[2024-10-21 08:41] LABS: Alanine Aminotransferase 19 U/L (0-31); Albumin Level 3.6 g/dL (3.5-5.0); Alkaline Phosphatase 84 U/L (39-117); Anion Gap 12 (12-20); Aspartate Amino Transferase 26 U/L (5-31); Blood Urea Nitrogen 11 mg/dL (9-16); Calcium 9.1 mg/dL (8.4-10.2); Carbon Dioxide 33 mmol/L (22-29); Chloride 99 mmol/L (96-108); Creatinine Clr Calc Pharmacy 105.5; Estimated Glomerular Filt Rate > 60; Magnesium 1.8 mg/dL (1.6-2.6); Potassium 4.2 mmol/L (3.3-5.1); Sodium 140 mmol/L (135-145); Total Protein 6.5 g/dL (6.5-8.0)
[2024-10-21 08:42] LABS: IDNOW Serial# 58CA691E; Influenza B2 Negative (Negative)
[2024-10-21 08:46] LABS: B Type Natriuretic Peptide 70 pg/mL (<100)
[2024-10-21 08:48] LABS: Troponin-I High Sensitivity 5.0 ng/L (<3.5-17.0)
[2024-10-21] MEDS: iohexoL 350 MG/ML 100 ML INFUS..BTL IV (09:42)
[2024-10-21] MEDS: oxyCODONE HCl Immed Release 5 MG TABLET 10 MG PO ×3 (10:29→20:47)
[2024-10-21 11:29] LABS: Troponin-I High Sensitivity 5.9 ng/L (<3.5-17.0)
[2024-10-21 12:57] LABS: Glucose, Whole Blood 393 mg/dL (60-115)
--- NOTE | 2024-10-21 13:38 | PC.NURSE ---
Provider made aware of pt's POC BG of 393; no orders at this time
[2024-10-21] MEDS: Albuterol Sulfate 2.5 MG, Albuterol Sulfate (0.083%) 2.5 MG 5 MG INHALE (13:58)
--- NOTE | 2024-10-21 14:21 | PHA.MEDREC ---
Addendum entered by Jenn Gunter RPh 10/21/24 15:10: MED REC REVIEWED BY [facility] Original Note: Pharmacy Consult ? Medication Reconciliation Pharmacy has completed the medication reconciliation. Spoke with pt and spouse at bedside and they confirmed the pt medications. Pt confirmed she is taking her Lantus Solostar 40units in the morning and Humalog KwikPen 25 units TIDAC, pt stopped her Linzess in the last month due to not liking it, pt confirmed she takes her Oxyxcodne 10mg tabs 1 Q6H PRN and pt spouse confirmed the Pramipexole 0.25mg tabs, stating pt takes 1 tab (0.25mg) in the morning and 2 tabs (0.50mg) at bedtime. Pt confirmed she takes her medications either at 0030 or 1230 and last took her medications this morning @0000.
[2024-10-21 14:33] LABS: VBG HCO3 31 mmol/L (22-26); VBG O2 % Saturation 97.0 %
[2024-10-21 14:33] LABS: Venous Blood Gas Refer to POC result
--- NOTE | 2024-10-21 15:41 | PM.IMHP ---
History of Present Illness Date of Service: 10/21/24 Attending physician on admission: Yeny Mckeon Chief Complaint: chest pain, sob This is a 64-year-old female with chronic hypoxic respiratory failure due to COPD and Sjogren syndrome with pulmonary hypertension on 4 L of home O2, chronic opiate dependence, celiac disease, ulcerative colitis, Lin's esophagus, restless leg syndrome, TENISHA on CPAP, HFpEF who presents to the emergency department with chest pain and shortness of breath. Patient is a vague historian, was discharged from [facility] on October 01 with a course of steroids. She initially felt better. For the past 3 days she has been having chest pain with and shortness of breath with movement. She does not ambulate much at baseline and only walks to a commode which is in her living room. But typically she is able to take off her oxygen at rest but for the past 3 days she has required 4 L of supplemental oxygen constantly. She reports swelling in her left lower extremity. She states she has a chronic cough which is unchanged from her baseline she denies any fever or associated chills. In the emergency department oxygen saturations were stable on her baseline 4 L. CTA showed suspected pulmonary vascular congestion with interval resolution of left lower lobe atelectasis. She received IV antibiotics, IV steroids, breathing treatments as well as IV magnesium but continued to report dyspnea and therefore will be admitted for further management. Review of Systems Review of Systems: Yes all other systems are reviewed and are negative Constitutional: Constitutional: Denies chills and Denies fever(s) Cardiovascular: Cardiovascular: Reports chest pain, Denies palpitations and Reports dyspnea on exertion Respiratory: Respiratory: Reports cough and Reports dyspnea on exertion Endocrine: Endocrine: Denies palpitations [facility] Medical History Pulmonary hypertension Tobacco dependence due to cigarettes Diabetes mellitus with hyperglycemia Chronic pain syndrome senior care (current) use of opiate analgesic Osteoporosis Sjogrens syndrome Rheumatoid arthritis Osteoarthritis Chronic, continuous use of opioids GERD (gastroesophageal reflux disease) Hx of difficult intubation Smoker COPD (chronic obstructive pulmonary disease) Asthma Polycythemia Boils Eczema Bursitis Disc degeneration Sleep apnea Diabetes Fibromyalgia Family History Mother Polycythemia TIA (transient ischemic attack) Father Heart attack Other No family history of cancer Surgical History History of esophagogastroduodenoscopy (EGD) Hx of tonsillectomy History of surgical removal of pilonidal cyst Hx of plastic surgery Hx of hysterectomy Hx of cholecystectomy Hx of appendectomy History of colonoscopy History of bladder suspension procedure History of removal of cyst Social History Household Members: Spouse Housing: House Are you a primary live in caregiver to a significant other at home: No Do you presently have visiting nurse or other home services: No Alcohol intake: never Comment: pt refusing alarms Patient Tobacco Use Status: Current everyday Tobacco user Tobacco use type: Cigarette Cigarette Packs Per Day: 1 Cigarettes Per Day: 20.0 Years Smoked: 51 Smoked in Last 30 Days: Yes e-Cigarette/Vaping Use: Never Used Second Hand Smoke Exposure: No Use of substances other than those prescribed or required for medical reasons: No Advance Directives: Yes Advance Directives on File: Yes Advance Directives Date on File: 12/24/19 Do you have a plan to hurt others: No Plan Patient : No service: No Current occupational status: retired 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 Cognitive needs: No Hearing needs: No Vision needs: No Meds Allergies Allergy/AdvReac Type Severity Reaction Status Date / Time atorvastatin (From LIPITOR) Allergy Severe Difficulty Verified 10/21/24 07:31 Breathing azithromycin (AZITHROMYCIN) Allergy Severe Difficulty Verified 10/21/24 07:31 Breathing mite-Dermatophagoides Allergy Severe Difficulty Verified 10/21/24 07:31 farinae, vicente (dust mite - Breathing [place]) sumatriptan (From IMITREX) Allergy Severe Difficulty Verified 10/21/24 07:31 Breathing house dust Allergy Mild Unknown Verified 10/21/24 07:31 acetaminophen (From TYLENOL) Allergy Unknown Itching Verified 10/21/24 07:31 adhesive tape (ADHESIVE TAPE) Allergy Unknown Rash Verified 10/21/24 07:31 gentamicin (GENTAMICIN) Allergy Unknown Rash Verified 10/21/24 07:31 adalimumab (From Humira) Allergy Rash Verified 10/21/24 07:31 erythromycin base Allergy Unknown Verified 10/21/24 07:31 haloperidol (From HALDOL) AdvReac Unknown GI Issues Verified 10/21/24 07:31 ketorolac (From TORADOL) AdvReac Unknown Muscle Verified 10/21/24 07:31 cramps prasterone (DHEA) (From DHEA) AdvReac Unknown Cardiac Verified 10/21/24 07:31 issues varenicline (From CHANTIX) AdvReac Unknown Seizure Verified 10/21/24 07:31 ipratropium (From Atrovent) AdvReac Migraine Verified 10/21/24 07:31 Home Medications ?Medication ?Instructions ?Recorded ?Confirmed ?Last Taken ?Type aspirin 325 mg tablet 325 mg PO BID@0030,1230 09/27/20 10/21/24 10/21/24 00:00 History hydroxychloroquine 200 mg tablet 200 mg PO DAILY@0030 07/27/24 10/21/24 10/21/24 00:00 History insulin lispro 100 unit/mL 25 unit subcut TIDAC 07/27/24 10/21/24 10/21/24 00:00 History subcutaneous pen (Humalog KwikPen (U-100) Insulin) losartan 25 mg tablet 25 mg PO DAILY@0030 07/27/24 10/21/24 10/21/24 00:00 History magnesium oxide 400 mg (241.3 mg 400 mg PO DAILY@0030 07/27/24 10/21/24 10/21/24 00:00 History magnesium) tablet metformin 1,000 mg tablet 1,000 mg PO BID@0030,1230 07/27/24 10/21/24 10/21/24 00:00 History mupirocin 2 % topical ointment 1 appl topical DAILY PRN AFFECTED 07/27/24 10/21/24 10/21/24 00:00 History AREA pramipexole 0.25 mg tablet 0.25 mg PO DAILY@1230 07/27/24 10/21/24 10/21/24 00:00 History pramipexole 0.25 mg tablet 0.5 mg PO BEDTIME@0030 07/27/24 10/21/24 10/21/24 00:00 History pregabalin 75 mg capsule (Lyrica) 75 mg PO DAILY@0030 07/27/24 10/21/24 10/21/24 00:00 History albuterol sulfate 90 mcg/actuation 2 puff inhalation Q6H PRN wheezing 09/13/24 10/21/24 10/21/24 00:00 History aerosol inhaler baclofen 10 mg tablet 10 mg PO BID PRN Muscle Pain 09/13/24 10/21/24 10/21/24 00:00 History montelukast 10 mg tablet 10 mg PO BEDTIME@0030 09/13/24 10/21/24 10/21/24 00:00 History pantoprazole 40 mg tablet,delayed 40 mg PO DAILY@0630 09/13/24 10/21/24 10/21/24 00:00 History release tiotropium 2.5 mcg-olodaterol 2.5 2 puff inhalation DAILY@1230 09/13/24 10/21/24 10/21/24 00:00 History mcg/actuation mist for inhalation (Stiolto Respimat) furosemide 40 mg tablet (Lasix) 40 mg PO DAILY@1230 09/28/24 10/21/24 10/21/24 00:00 History insulin glargine 100 unit/mL (3 40 unit subcut DAILY@00309/28/24 10/21/24 10/21/24 00:00 History mL) subcutaneous pen (Lantus Solostar U-100 Insulin) Physical Exam Vital Signs and Narrative: Vital Signs: Last Vital Signs Temp 98.6 F 10/21/24 12:01 Pulse 84 10/21/24 14:06 Resp 18 10/21/24 14:06 BP 137/62 10/21/24 14:06 Pulse Ox 92 10/21/24 14:06 O2 Del Method Nasal Cannula 10/21/24 14:06 O2 Flow Rate 4 10/21/24 14:06 BMI result Body Mass Index 34.8 Const: General: cooperative, comfortable, no acute distress, alert and awake Nutritional Appearance: obese Orientation/consciousness: patient oriented x3 Resp: Other: right rales Effort & Inspection: normal respiratory effort, able to speak in complete sentences, no respiratory distress and no use of accessory muscles Cardio: Rate: regular rate GI: Inspection: No distended Palpation (GI): Soft to palpation and nontender Neuro: General: patient oriented x3, moves all extremities and CN's II-XI intact bilaterally Results Labs 10/21/24 08:03 10/21/24 08:03 Labs: Laboratory Results - last 24 hr 10/21/24 10/21/24 10/21/24 08:03 08:05 12:42 MCV 83.0 MCH 26.9 L MCHC 32.4 RDW 17.3 H Plt Count 248 MPV 9.2 L Immature Gran % (Auto) 0.8 H Neut % (Auto) 58.9 Lymph % (Auto) 30.5 Towner % (Auto) 5.8 Eos % (Auto) 3.3 Baso % (Auto) 0.7 Lymph # (Auto) 2.5 Towner # (Auto) 0.5 Eos # (Auto) 0.3 Baso # (Auto) 0.1 Abs Immat Gran (auto) 0.07 H Absolute Neuts (auto) 4.9 Absolute Nucleated RBC 0.000 Nucleated RBC % (auto) 0.0 PT 12.1 INR 1.1 VBG pH VBG pCO2 VBG pO2 VBG HCO3 VBG O2 Saturation VBG Base Excess Anion Gap 12 Estim Creat Clear Calc 105.5 Estimated GFR > 60 POC Glucose 393 H* Random Glucose 134 H Calcium 9.1 Magnesium 1.8 Total Bilirubin 0.3 AST 26 ALT 19 Alkaline Phosphatase 84 B-Natriuretic Peptide 70 Total Protein 6.5 Albumin 3.6 COVID-19 (MONSERRAT) Negative COVID-19 Clin Com See Note Influenza Type A (RUTH ANN) Negative Influenza Type B (RUTH ANN) Negative Influenza A & B Note See Note 10/21/24 14:30 MCV MCH MCHC RDW Plt Count MPV Immature Gran % (Auto) Neut % (Auto) Lymph % (Auto) Towner % (Auto) Eos % (Auto) Baso % (Auto) Lymph # (Auto) Towner # (Auto) Eos # (Auto) Baso # (Auto) Abs Immat Gran (auto) Absolute Neuts (auto) Absolute Nucleated RBC Nucleated RBC % (auto) PT INR VBG pH 7.36 VBG pCO2 54 VBG pO2 82 VBG HCO3 31 H VBG O2 Saturation 97.0 VBG Base Excess 4.0 Anion Gap Estim Creat Clear Calc Estimated GFR POC Glucose Random Glucose Calcium Magnesium Total Bilirubin AST ALT Alkaline Phosphatase B-Natriuretic Peptide Total Protein Albumin COVID-19 (MONSERRAT) COVID-19 Clin Com Influenza Type A (RUTH ANN) Influenza Type B (RUTH ANN) Influenza A & B Note Imaging Radiologist's Impressions: Impressions Chest X-Ray 10/21/24 07:17 IMPRESSION: Concerning acute on chronic airspace disease versus mild interstitial lung edema. Electronically signed by: Filippo Prieto MD 10/21/2024 08:28 AM EDT RP Chest CTA 10/21/24 08:23 IMPRESSION: No central pulmonary embolus. Suboptimal study. Suspected pulmonary vascular congestion/interstitial edema: Pulmonary vessels appear mildly enlarged and there is intralobular septal thickening in the upper lungs that is new since the prior. Cardiomegaly is also present. Borderline enlargement of the pulmonary artery is suggestive of underlying pulmonary arterial hypertension. Stable mild bilateral hilar adenopathy. Interval resolution of left lower lobe atelectasis with new subsegmental atelectasis in the posterior segment right lower lobe. Fleischner guidelines were followed. Electronically signed by: William Phelps MD 10/21/2024 10:06 AM EDT RP Venous Duplex 10/21/24 08:40 IMPRESSION: No evidence of deep venous thrombosis involving the left lower extremity. Electronically signed by: Erik Zimmerman MD 10/21/2024 09:07 AM EDT RP Assessment and Plan (1) Pulmonary hypertension: Status: Acute (2) Chest pain: Qualifiers: Chest pain type: other chest pain Qualified Code(s): R07.89 - Other chest pain Status: Acute (3) Dyspnea on exertion: Status: Acute Plan This is a 64-year-old female with a history of chronic hypoxic respiratory failure due to COPD, insulin-dependent diabetes, Sjogren's, fibromyalgia chronic chronic opiate use, celiac disease, ulcerative colitis, RLS, TENISHA, HFpEF who presents to the emergency department with chest pain and dyspnea Acute on chronic hypoxic respiratory failure due to underlying COPD exacerbation Breathing treatments, systemic steroids check RPP Wean oxygen as tolerated HFpEF BNP low Does not look overtly fluid overloaded continue baseline lasix Left lower extremity swelling Ultrasound negative for DVT Patient reports it improved with steroids on last admission? IDDM with hyperglycemia Likely due to steroids given in ED hold metformin Continue Lantus SSI, POCs, ADA diet HTN Continue losartan, Norvasc chronic pain/chronic opiate use Continue baseline morphine, oxycodone,lyrica gerd continue PPI RLS Continue pramipexole Sjogren's ? continue hydroxychloroquine TENISHA cpap Morbid obesity Weight loss encouraged DVT prophylaxis-Lovenox Code status-full code Patient will likely require 2 midnight stay in the hospital for management of acute COPD exacerbation Quality Stroke Does the patient have a stroke diagnosis?: No VTE Prior VTE?: No VTE Risk Level:: Medical - moderate - high VTE Device Contraindication: Treatment Not Indicated VTE Drug Contraindication: N/A - Med Ordered
[2024-10-21 16:35] LABS: Glucose, Whole Blood 383 mg/dL (60-115)
[2024-10-21 18:36] LABS: Glucose, Whole Blood 337 mg/dL (60-115)
[2024-10-21] MEDS: 0.9 % Sodium Chloride Flush 3 ML SYRINGE IVFLUSH ×2 (18:39→22:47)
[2024-10-21 20:17] LABS: Glucose, Whole Blood 307 mg/dL (60-115)
[2024-10-21] MEDS: Albuterol Sulfate (0.083%) 2.5 MG/3 ML VIAL.NEB INHALE (20:48)
[2024-10-21] MEDS: Insulin Glargine,Hum.rec.anlog 100 UNIT/ML 10 ML VIAL 40 UNIT SUBCUT (22:46)
[2024-10-22] VITALS (10 sets, daily range): BP systolic 107–161; BP diastolic 60–81; PULSE 71–73; RESP 18–20; TEMP 36.1–36.4; O2SAT 92–98
[2024-10-22] MEDS: Nicotine 14 MG PATCH.TD24 TRANSDERMA ×2 (00:14→08:42)
[2024-10-22] MEDS: Morphine Sulfate ER 30 MG TABLET.ER PO ×2 (00:28→13:08)
[2024-10-22] MEDS: oxyCODONE HCl Immed Release 5 MG TABLET 10 MG PO ×4 (02:20→21:18)
[2024-10-22] MEDS: Albuterol Sulfate (0.083%) 2.5 MG/3 ML VIAL.NEB INHALE (04:30)
[2024-10-22 07:19] LABS: Glucose, Whole Blood 273 mg/dL (60-115)
[2024-10-22 07:22] LABS: MANUAL DIFF FLAG NO
[2024-10-22 07:27] LABS: Hematocrit 45.2 % (37.0-47.0); Hemoglobin 14.5 g/dl (12.0-16.0); Imm Gran Abs Auto 0.09 X10*3/uL (0.00-0.03); Imm Gran Pct Auto 0.9 % (0.0-0.4); Lymphocytes Absolute Auto 2.0 X10*3/uL (1.2-4.9); Mean Corpuscular HGB Conc 32.1 g/dl (31.0-35.0); Mean Corpuscular Hemoglobin 26.3 pg (27.0-33.0); Mean Corpuscular Volume 81.9 fL (80.0-98.0); NRBC Abs Auto 0.000 X10*3/uL (0.0-0.012); NRBC Pct Auto 0.0 /100WBC (0.0-0.2); Platelet Count 257 X10*3/uL (160-400); Red Blood Count 5.52 X10*6/uL (4.20-5.50); White Blood Count 9.6 X10*3/uL (4.8-10.8)
[2024-10-22 07:41] LABS: Anion Gap 15 (12-20); Blood Urea Nitrogen 15 mg/dL (9-16); Calcium 8.9 mg/dL (8.4-10.2); Carbon Dioxide 30 mmol/L (22-29); Chloride 97 mmol/L (96-108); Creatinine Clr Calc Pharmacy 113.1; Estimated Glomerular Filt Rate > 60; Potassium 4.2 mmol/L (3.3-5.1); Sodium 138 mmol/L (135-145)
[2024-10-22] MEDS: 0.9 % Sodium Chloride Flush 3 ML SYRINGE IVFLUSH ×3 (08:41→21:19)
[2024-10-22 10:46] LABS: Chlamydia pneumoniae PCR Not Detected (Not Detect.); Coronavirus 229E PCR Not Detected (Not Detect.); Coronavirus HKU1 PCR Not Detected (Not Detect.); Coronavirus NL63 PCR Not Detected (Not Detect.); Coronavirus OC43 PCR Not Detected (Not Detect.); RSV PCR Not Detected (Not Detect.); Rhino/Enterovirus PCR Not Detected (Not Detect.)
[2024-10-22 10:47] LABS: Influenza A H1 PCR Not Detected (Not Detect.); Influenza A H1-2009 PCR Not Detected (Not Detect.); Influenza A H3 PCR Not Detected (Not Detect.); SARS-CoV-2 PCR Not Detected (Not Detect.)
[2024-10-22 11:21] LABS: Glucose, Whole Blood 130 mg/dL (60-115)
--- NOTE | 2024-10-22 12:23 | MHC.CM.PN ---
Pt self-care, lives at home with her who will transport her home at discharge. Pt has home O2 through [employer]. Pt has a walker at home but doesn't use it. HCP on file and verified. PCP: Dr. Dottie Douglass
--- NOTE | 2024-10-22 13:05 | P.PNIM_ITS ---
Subjective Subjective Date of Service: 10/22/24 Interval History: The patient reports experiencing severe chest pain that began approximately two weeks ago after being released from a previous hospitalization. The pain is localized to one side of her chest and is exacerbated by movement, including simple activities such as brushing her hair. She describes the pain as insane and notes that it significantly impacts her breathing. After walking short distances, such as to the bathroom, she experiences increased pain and has to sit down to take slow, deep breaths until the discomfort subsides. Deep breathing and coughing also trigger the pain. Ms. Parra's breathing has worsened over the past three weeks. She mentions that her condition deteriorated rapidly after discontinuing steroids that were prescribed during her previous hospitalization. The patient reports difficulty with mobility, stating she can't even get to the bathroom without significant discomfort. She expresses concern about her ability to perform daily activities, including cooking. The patient has been on a long-term pain management regimen since 1999, including MS Contin 30 mg and oxycodone 10 mg. She reports widespread pain through her back, shoulders, and buttocks. Ms. Parra notes that her current pain medication regimen is becoming less effective, stating she's begging by 5pm when she moves around too much. Review of Systems General: Positive for fatigue. Respiratory: Positive for dyspnea on exertion, chest pain with breathing and movement. Musculoskeletal: Positive for back pain, shoulder pain. Review of Systems: Yes all other systems are reviewed and are negative Physical Exam 2 Exam: Exam: General: A&O x3, oriented to time place person and situation, comfortable, no pain, on chronic 4 L NC. Cardiac: S1, S2 auscultated with no S3/4, no MRG. Well perfused. Respiratory: No tachypnea, respiratory distress, tripoding. No peripheral or central cyanosis. 4 L NC. Decreased inspiratory expiratory breath sounds bilaterally throughout all lung zones, with end expiratory wheezing auscultated throughout all lung zones. Some crepitus auscultated bibasilarly. GI/ : No abdominal pain on palpation, no masses or distentions. MSK: Normal ambulation without pain at bony prominences or musculature. Tenderness on palpation of the right anterior thorax. Reproducible pain with deep inspiration and cough. Neurological: Normal neurological examination on overview, without obvious CN II-XII abnormalities. Vital Signs: Vital Signs: Last Vital Signs Temp 97.1 F 10/22/24 11:24 Pulse 73 10/22/24 11:24 Resp 20 10/22/24 11:24 BP 158/77 H 10/22/24 11:24 Pulse Ox 95 10/22/24 11:24 O2 Del Method Room Air 10/22/24 11:24 O2 Flow Rate 4 10/22/24 07:17 BMI result Body Mass Index 34.8 Objective Data Active Medications Acetaminophen (Acetaminophen 325 Mg Tablet) 650 mg PO Q6H PRN PRN Reason: Pain, Mild 1-3,fever,headache Albuterol Sulfate (Albuterol Sulfate 90 Mcg 8 Gm Inhaler) 2 puff INHALE Q6H PRN PRN Reason: Wheezing Albuterol Sulfate (Albuterol Sulfate (0.083%) 2.5 Mg/3 Ml Vial.Neb) 2.5 mg INHALE Q6H PRN PRN Reason: Shortness of Breath/Wheezing Last Admin: 10/22/24 04:30 Dose: 2.5 mg Documented By: SARAHI Amlodipine Besylate (Amlodipine Besylate 10 Mg Tablet) 10 mg PO DAILY@0030 [facility]; Protocol Last Admin: 10/22/24 00:29 Dose: 10 mg Documented By: MYRIAM Aspirin (Aspirin 325 Mg Tablet) 325 mg PO BID@0030,1230 [facility] Last Admin: 10/22/24 00:27 Dose: 325 mg Documented By: MYRIAM Baclofen (Baclofen 10 Mg Tablet) 10 mg PO BID PRN PRN Reason: Muscle Pain Last Admin: 10/21/24 20:47 Dose: 10 mg Documented By: NICOLE Calcium Carbonate (Calcium Carbonate 750 Mg Tab.Chew) 750 mg PO Q4H PRN PRN Reason: Heartburn Dextrose (Dextrose 50 % 25 Gm/50 Ml Syringe) 25 gm IVPUSH Q15M PRN; Protocol PRN Reason: per Hypoglycemia Standing Ord. Enoxaparin Sodium (Enoxaparin Sodium 40 Mg/0.4 Ml Syringe) 40 mg SUBCUT Q24H [facility] Last Admin: 10/21/24 16:43 Dose: 40 mg Documented By: RELL Furosemide (Furosemide 40 Mg Tablet) 40 mg PO DAILY@1230 [facility]; Protocol Last Admin: 10/22/24 11:50 Dose: 40 mg Documented By: JONO Glucose (Glucose Gel 15 Gm Gel..Gram.) 15 gm PO Q15M PRN; Protocol PRN Reason: per Hypoglycemia Standing Ord. Hydroxychloroquine Sulfate (Hydroxychloroquine Sulfate 200 Mg Tablet) 200 mg PO DAILY@29 [facility] Last Admin: 10/22/24 00:26 Dose: 200 mg Documented By: MYRIAM Insulin Glargine (Insulin Glargine,Hum.Rec.Anlog 100 Unit/Ml 10 Ml Vial) 40 unit SUBCUT DAILY@29 [facility] Last Admin: 10/22/24 00:49 Dose: Not Given Documented By: MYRIAM Non-Admin Reason: Previously Administered Insulin Human Lispro (Insulin Lispro 100 Unit/Ml 3 Ml Vial) 0 unit SUBCUT QIDACHS [facility]; Protocol Last Admin: 10/22/24 11:28 Dose: Not Given Documented By: JONO Non-Admin Reason: No Insulin Coverage Insulin Human Lispro (Insulin Lispro 100 Unit/Ml 3 Ml Vial) 25 unit SUBCUT TIDAC [facility] Last Admin: 10/22/24 11:51 Dose: 25 unit Documented By: JONO Losartan Potassium (Losartan Potassium 25 Mg Tablet) 25 mg PO DAILY@29 [facility]; Protocol Last Admin: 10/22/24 00:26 Dose: 25 mg Documented By: MYRIAM Magnesium Hydroxide (Milk Of Magnesia 30 Ml Oral.Susp) 30 ml PO DAILY PRN PRN Reason: Constipation Magnesium Oxide (Magnesium Oxide 400 Mg Tablet) 400 mg PO DAILY@29 [facility] Last Admin: 10/22/24 00:28 Dose: 400 mg Documented By: MYRIAM Melatonin (Melatonin 3 Mg Tablet) 6 mg PO BEDTIME PRN PRN Reason: Insomnia Methylprednisolone Sodium Succinate (Methylprednisolone Sod Succ 40 Mg/Ml Vial) 40 mg IVPUSH Q12H [facility] Last Admin: 10/22/24 08:46 Dose: 40 mg Documented By: JONO Montelukast Sodium (Montelukast Sodium 10 Mg Tablet) 10 mg PO BEDTIME@29 [facility] Last Admin: 10/22/24 00:25 Dose: 10 mg Documented By: MYRIAM Morphine Sulfate (Morphine Sulfate Er 30 Mg Tablet.Er) 30 mg PO BID@003,1230 [facility] Last Admin: 10/22/24 00:28 Dose: 30 mg Documented By: MYRIAM Nicotine (Nicotine 14 Mg Patch.Td24) 14 mg TRANSDERMA DAILY [facility] Last Admin: 10/22/24 08:42 Dose: 14 mg Documented By: JONO Non-Formulary Medication (Gcnijgb-Odxoakosfa-Cff-Caff) 1 cap PO QID PRN PRN Reason: headache Non-Formulary Medication (Tiotropium-Olodaterol [Stiolto Respimat]) 2 puff INHALE DAILY@123 [facility] Omeprazole (Omeprazole 20 Mg Capsule.Dr) 20 mg PO DAILY@629 [facility] Last Admin: 10/22/24 06:15 Dose: 20 mg Documented By: MYRIAM Oxycodone HCl (Oxycodone Hcl Immed Release 5 Mg Tablet) 10 mg PO QID PRN PRN Reason: Pain, Moderate(Pain Scale 4-6) Last Admin: 10/22/24 08:46 Dose: 10 mg Documented By: JONO Pramipexole Dihydrochloride (Pramipexole Di-Hcl 0.25 Mg Tablet) 0.5 mg PO BEDTIME@29 [facility] Last Admin: 10/22/24 00:29 Dose: 0.5 mg Documented By: MYRIAM Pramipexole Dihydrochloride (Pramipexole Di-Hcl 0.25 Mg Tablet) 0.25 mg PO DAILY@123 [facility] Last Admin: 10/22/24 11:50 Dose: 0.25 mg Documented By: JONO Pregabalin (Pregabalin 75 Mg Capsule) 75 mg PO DAILY@29 [facility] Last Admin: 10/22/24 00:27 Dose: 75 mg Documented By: MYRIAM Sodium Chloride (0.9 % Sodium Chloride Flush 3 Ml Syringe) [address] [facility] Last Admin: 10/22/24 08:41 Dose: 3 ml Documented By: JONO Labs 10/22/24 06:54 10/22/24 06:54 Labs: Laboratory Results - last 24 hr 10/21/24 10/21/24 10/21/24 14:30 16:29 18:32 MCV MCH MCHC RDW Plt Count MPV Immature Gran % (Auto) Neut % (Auto) Lymph % (Auto) Elbert % (Auto) Eos % (Auto) Baso % (Auto) Lymph # (Auto) Elbert # (Auto) Eos # (Auto) Baso # (Auto) Abs Immat Gran (auto) Absolute Neuts (auto) Absolute Nucleated RBC Nucleated RBC % (auto) VBG pH 7.36 VBG pCO2 54 VBG pO2 82 VBG HCO3 31 H VBG O2 Saturation 97.0 VBG Base Excess 4.0 Anion Gap Estim Creat Clear Calc Estimated GFR POC Glucose 383 H* 337 H Random Glucose Calcium Respiratory Panel [place] Adenovirus (Rapid PCR) B.pert (TEM-PCR) B.parapertussis DNA PCR C. pneumoniae DNA (PCR) Coronavirus OC43 (PCR) Coronavirus HKU1 (PCR) Coronavirus 229E (PCR) Coronavirus NL63 (PCR) Human Metapneumovir PCR Influenza A (RT-PCR) Influenza A (H1) PCR Influ A (H1/09) PCR Influenza A (H3) PCR Influenza B (RT-PCR) M. pneumoniae (PCR) Parainfluenza 1 (PCR) Parainfluenza 2 (PCR) Parainfluenza 3 (PCR) Parainfluenza 4 (PCR) RSV (PCR) Entero/Rhino (PCR) SARS-CoV-2 RNA (RT-PCR) 10/21/24 10/22/24 10/22/24 20:13 06:54 07:15 MCV 81.9 MCH 26.3 L MCHC 32.1 RDW 16.3 H Plt Count 257 MPV 9.9 Immature Gran % (Auto) 0.9 H Neut % (Auto) 70.4 Lymph % (Auto) 20.9 Elbert % (Auto) 6.5 Eos % (Auto) 1.0 Baso % (Auto) 0.3 Lymph # (Auto) 2.0 Elbert # (Auto) 0.6 Eos # (Auto) 0.1 Baso # (Auto) 0.0 Abs Immat Gran (auto) 0.09 H Absolute Neuts (auto) 6.8 Absolute Nucleated RBC 0.000 Nucleated RBC % (auto) 0.0 VBG pH VBG pCO2 VBG pO2 VBG HCO3 VBG O2 Saturation VBG Base Excess Anion Gap 15 Estim Creat Clear Calc 113.1 Estimated GFR > 60 POC Glucose 307 H 273 H Random Glucose 252 H Calcium 8.9 Respiratory Panel [place] Adenovirus (Rapid PCR) B.pert (TEM-PCR) B.parapertussis DNA PCR C. pneumoniae DNA (PCR) Coronavirus OC43 (PCR) Coronavirus HKU1 (PCR) Coronavirus 229E (PCR) Coronavirus NL63 (PCR) Human Metapneumovir PCR Influenza A (RT-PCR) Influenza A (H1) PCR Influ A () PCR Influenza A (H3) PCR Influenza B (RT-PCR) M. pneumoniae (PCR) Parainfluenza 1 (PCR) Parainfluenza 2 (PCR) Parainfluenza 3 (PCR) Parainfluenza 4 (PCR) RSV (PCR) Entero/Rhino (PCR) SARS-CoV-2 RNA (RT-PCR) 10/22/24 10/22/24 09:31 10:53 MCV MCH MCHC RDW Plt Count MPV Immature Gran % (Auto) Neut % (Auto) Lymph % (Auto) Elbert % (Auto) Eos % (Auto) Baso % (Auto) Lymph # (Auto) Elbert # (Auto) Eos # (Auto) Baso # (Auto) Abs Immat Gran (auto) Absolute Neuts (auto) Absolute Nucleated RBC Nucleated RBC % (auto) VBG pH VBG pCO2 VBG pO2 VBG HCO3 VBG O2 Saturation VBG Base Excess Anion Gap Estim Creat Clear Calc Estimated GFR POC Glucose 130 H Random Glucose Calcium Respiratory Panel [place] See Note Adenovirus (Rapid PCR) Not Detected B.pert (TEM-PCR) Not Detected B.parapertussis DNA PCR Not Detected C. pneumoniae DNA (PCR) Not Detected Coronavirus OC43 (PCR) Not Detected Coronavirus HKU1 (PCR) Not Detected Coronavirus 229E (PCR) Not Detected Coronavirus NL63 (PCR) Not Detected Human Metapneumovir PCR Not Detected Influenza A (RT-PCR) Not Detected Influenza A (H1) PCR Not Detected Influ A () PCR Not Detected Influenza A (H3) PCR Not Detected Influenza B (RT-PCR) Not Detected M. 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: Status: Acute (2) Congestive heart failure: Status: Acute (3) Pulmonary hypertension: Status: Acute (4) Insulin 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 2 diabetes: Status: Acute (5) Sjogrens syndrome: Status: Acute (6) Chronic pain syndrome: Status: Acute (7) Acute exacerbation of chronic obstructive airways disease: Status: Acute (8) Tobacco use disorder: Status: Acute Plan Lashon Parra, 64-year-old female with history of COPD on chronic 4L O2 and CHFpEH, pulmonary HTN, Sjorgen's/ RA, chornic pain disorder on opioid regimen, admitted with multifactorial acute hypoxic respiratory failure and costochondritis. Acute COPD Exacerbation Assessment: Patient presents with worsening breathing over the past 3 weeks, coinciding with discontinuation of steroids. She reports difficulty with movement and activities, requiring increased oxygen support. Patient is on chronic 4L O2 at baseline. Recent hospitalization 2 weeks ago, with subsequent decline in respiratory status. Currently using inhalers, including possibly Trelegy or Advair Diskus. Assessment is consistent with COPD exacerbation. Plan: - Initiate triple therapy for COPD management - Start doxycycline 100 mg b.i.d. p.o. - Administer Lasix for potential fluid overload ??- Patient reports previous use of Lasix 40 mg in the morning ??- Avoid nighttime administration due to patient preference - Continue current inhaler regimen - Reassess respiratory status tomorrow Acute or Chronic CHF Exacerbation Assessment: Patient has a history of congestive heart failure. Current presentation includes symptoms suggestive of fluid overload, which may be contributing to the respiratory distress. This is consistent with a possible acute on chronic CHF exacerbation. Plan: - Administer Lasix for diuresis ??- Patient reports previous use of Lasix 40 mg in the morning ??- Avoid nighttime administration due to patient preference - Reassess fluid status tomorrow - continue cardiac telemetry - Intake/output - Daily weights Costochondritis Assessment: Patient reports localized chest pain exacerbated by movement, deep breathing, and coughing. Pain is described as intense and located in a specific area. These symptoms are consistent with costochondritis, likely secondary to increased coughing from COPD exacerbation. Plan: - Apply Voltaren cream (topical NSAID) to affected area - avoid oral NSAIDs - Educate patient on proper application of topical medication Chronic Pain Management Assessment: Patient reports long-term use of narcotics since 1999 for chronic pain in back, shoulders, and buttocks. Current regimen includes MS Contin 30 mg and oxycodone 10 mg. Patient expresses inadequate pain control with current regimen, especially with increased activity. Plan: - Continue current pain medication regimen: ??- MS Contin 30 mg PO q12h at 12:30 ??- Oxycodone 10 mg PO q6h - Consider additional medications for costochondritis pain - Evaluate potential for injectable pain management options - Reassess pain control and medication efficacy Chronic left lower extremity swelling Ultrasound lower extremity negative for DVT CHRONIC MEDICAL ISSUES - HTN: Continue Norvasc, losartan - GERD: Continue PPI - RA/ Sjogren's syndrome: ? Hydroxychloroquine continue - TENISHA/OHS: Continue CPAP nightly [employer] - VTE: Enoxaparin - CODE STATUS: Full code - DIET: Cardiac Total time managing care of this patient today: 45 minutes. Quality Stroke Does the patient have a stroke diagnosis?: No VTE Prior VTE?: No VTE Risk Level:: Medical - moderate - high VTE Device Contraindication: Treatment Not Indicated VTE Drug Contraindication: N/A - Med Ordered
[2024-10-22 16:16] LABS: Glucose, Whole Blood 149 mg/dL (60-115)
[2024-10-22] MEDS: Furosemide 40 MG/4 ML VIAL IVPUSH (16:22)
[2024-10-22] MEDS: Lidocaine 4 % Patch ADH..PATCH 1 PATCH TRANSDERMA (16:22)
[2024-10-22 20:10] LABS: Glucose, Whole Blood 132 mg/dL (60-115)
[2024-10-23] VITALS (8 sets, daily range): BP systolic 105–135; BP diastolic 58–67; PULSE 67–75; RESP 16–20; TEMP 36.2–36.4; O2SAT 74–98
[2024-10-23] MEDS: Morphine Sulfate ER 30 MG TABLET.ER PO ×2 (00:16→12:32)
[2024-10-23] MEDS: Insulin Glargine,Hum.rec.anlog 100 UNIT/ML 10 ML VIAL 40 UNIT SUBCUT (00:16)
[2024-10-23] MEDS: oxyCODONE HCl Immed Release 5 MG TABLET 10 MG PO ×5 (03:53→21:02)
[2024-10-23] MEDS: Albuterol Sulfate (0.083%) 2.5 MG/3 ML VIAL.NEB INHALE ×2 (06:13→23:33)
[2024-10-23 07:01] LABS: Glucose, Whole Blood 327 mg/dL (60-115)
[2024-10-23] MEDS: Lidocaine 4 % Patch ADH..PATCH 1 PATCH TRANSDERMA (07:55)
[2024-10-23] MEDS: Furosemide 40 MG/4 ML VIAL IVPUSH (07:56)
[2024-10-23] MEDS: Nicotine 14 MG PATCH.TD24 TRANSDERMA (07:57)
[2024-10-23] MEDS: 0.9 % Sodium Chloride Flush 3 ML SYRINGE IVFLUSH ×2 (07:58→16:32)
[2024-10-23 10:41] LABS: MANUAL DIFF FLAG NO
[2024-10-23 10:43] LABS: Hematocrit 51.1 % (37.0-47.0); Hemoglobin 16.4 g/dl (12.0-16.0); Imm Gran Abs Auto 0.08 X10*3/uL (0.00-0.03); Imm Gran Pct Auto 0.8 % (0.0-0.4); Lymphocytes Absolute Auto 1.2 X10*3/uL (1.2-4.9); Mean Corpuscular HGB Conc 32.1 g/dl (31.0-35.0); Mean Corpuscular Hemoglobin 26.1 pg (27.0-33.0); Mean Corpuscular Volume 81.4 fL (80.0-98.0); NRBC Abs Auto 0.000 X10*3/uL (0.0-0.012); NRBC Pct Auto 0.0 /100WBC (0.0-0.2); Platelet Count 295 X10*3/uL (160-400); Red Blood Count 6.28 X10*6/uL (4.20-5.50); White Blood Count 9.9 X10*3/uL (4.8-10.8)
[2024-10-23 10:56] LABS: Glucose, Whole Blood 198 mg/dL (60-115)
[2024-10-23 11:22] LABS: Anion Gap 16 (12-20); Blood Urea Nitrogen 20 mg/dL (9-16); Calcium 9.6 mg/dL (8.4-10.2); Carbon Dioxide 27 mmol/L (22-29); Chloride 97 mmol/L (96-108); Creatinine Clr Calc Pharmacy 100.5; Estimated Glomerular Filt Rate > 60; Potassium 4.4 mmol/L (3.3-5.1); Sodium 136 mmol/L (135-145)
--- NOTE | 2024-10-23 14:37 | HO.PM.IMPN ---
Subjective Subjective Date of Service: 10/23/24 Physical Exam Exam: Exam: General: A&O x3, oriented to time place person and situation, comfortable, no pain, on chronic 4 L NC. Cardiac: S1, S2 auscultated with no S3/4, no MRG. Well perfused. Respiratory: No tachypnea, respiratory distress, tripoding. No peripheral or central cyanosis. 4 L NC. Decreased inspiratory expiratory breath sounds bilaterally throughout all lung zones, with end expiratory wheezing auscultated throughout all lung zones. Some crepitus auscultated bibasilarly. GI/ : No abdominal pain on palpation, no masses or distentions. MSK: Normal ambulation without pain at bony prominences or musculature. Tenderness on palpation of the right anterior thorax. Reproducible pain with deep inspiration and cough. Neurological: Normal neurological examination on overview, without obvious CN II-XII abnormalities. Vital Signs: Vital Signs: Last Vital Signs Temp 97.5 F 10/23/24 10:58 Pulse 75 10/23/24 10:58 Resp 20 10/23/24 10:58 BP 128/62 10/23/24 10:58 Pulse Ox 90 L 10/23/24 10:58 O2 Del Method Room Air 10/23/24 10:58 O2 Flow Rate 3 10/23/24 03:40 BMI result Body Mass Index 34.8 Objective Data Active Medications Acetaminophen (Acetaminophen 325 Mg Tablet) 650 mg PO Q6H PRN PRN Reason: Pain, Mild 1-3,fever,headache Albuterol Sulfate (Albuterol Sulfate 90 Mcg 8 Gm Inhaler) 2 puff INHALE Q6H PRN PRN Reason: Wheezing Albuterol Sulfate (Albuterol Sulfate (0.083%) 2.5 Mg/3 Ml Vial.Neb) 2.5 mg INHALE Q6H PRN PRN Reason: Shortness of Breath/Wheezing Last Admin: 10/23/24 06:13 Dose: 2.5 mg Documented By: JASBIR Amlodipine Besylate (Amlodipine Besylate 10 Mg Tablet) 10 mg PO DAILY@0030 [facility]; Protocol Last Admin: 10/23/24 00:15 Dose: 10 mg Documented By: CLAYTON Aspirin (Aspirin 325 Mg Tablet) 325 mg PO BID@0030,1230 [facility] Last Admin: 10/23/24 11:26 Dose: 325 mg Documented By: TAMMY Baclofen (Baclofen 10 Mg Tablet) 10 mg PO BID PRN On Hold: 10/23/24 10:01 PRN Reason: Muscle Pain Last Admin: 10/23/24 07:55 Dose: 10 mg Documented By: TAMMY Calcium Carbonate (Calcium Carbonate 750 Mg Tab.Chew) 750 mg PO Q4H PRN PRN Reason: Heartburn Cyclobenzaprine HCl (Cyclobenzaprine Hcl 5 Mg Tablet) 5 mg PO TID PRN PRN Reason: spasm back Dextrose (Dextrose 50 % 25 Gm/50 Ml Syringe) 25 gm IVPUSH Q15M PRN; Protocol PRN Reason: per Hypoglycemia Standing Ord. Doxycycline Monohydrate (Doxycycline Monohydrate 100 Mg Capsule) 100 mg PO Q12H [facility] Last Admin: 10/23/24 05:51 Dose: 100 mg Documented By: CLAYTON Enoxaparin Sodium (Enoxaparin Sodium 40 Mg/0.4 Ml Syringe) 40 mg SUBCUT Q24H [facility] Last Admin: 10/22/24 16:21 Dose: 40 mg Documented By: JONO Furosemide (Furosemide 40 Mg Tablet) 40 mg PO DAILY@1230 [facility]; Protocol On Hold: 10/22/24 13:15 Last Admin: 10/22/24 11:50 Dose: 40 mg Documented By: JONO Furosemide (Furosemide 40 Mg/4 Ml Vial) 40 mg IVPUSH DAILY [facility]; Protocol Last Admin: 10/23/24 07:56 Dose: 40 mg Documented By: TAMMY Glucose (Glucose Gel 15 Gm Gel..Gram.) 15 gm PO Q15M PRN; Protocol PRN Reason: per Hypoglycemia Standing Ord. Guaifenesin (Guaifenesin 200 Mg/10 Ml 10 Ml Liquid) 10 ml PO Q4H PRN PRN Reason: Cough Hydroxychloroquine Sulfate (Hydroxychloroquine Sulfate 200 Mg Tablet) 200 mg PO DAILY@0030 [facility] Last Admin: 10/23/24 00:16 Dose: 200 mg Documented By: CLAYTON Insulin Glargine (Insulin Glargine,Hum.Rec.Anlog 100 Unit/Ml 10 Ml Vial) 40 unit SUBCUT DAILY@0030 [facility] Last Admin: 10/23/24 00:16 Dose: 40 unit Documented By: CLAYTON Insulin Human Lispro (Insulin Lispro 100 Unit/Ml 3 Ml Vial) 0 unit SUBCUT QIDACHS [facility]; Protocol Last Admin: 10/23/24 11:24 Dose: 2 unit Documented By: TAMMY Insulin Human Lispro (Insulin Lispro 100 Unit/Ml 3 Ml Vial) 25 unit SUBCUT TIDAC [facility] Last Admin: 10/23/24 11:24 Dose: 25 unit Documented By: TAMMY Lidocaine (Lidocaine 4 % Patch Adh..Patch) 1 patch TRANSDERMA DAILY [facility]; Protocol Last Admin: 10/23/24 07:55 Dose: 1 patch Documented By: TAMMY Losartan Potassium (Losartan Potassium 25 Mg Tablet) 25 mg PO DAILY@003 [facility]; Protocol Last Admin: 10/23/24 00:15 Dose: 25 mg Documented By: CLAYTON Magnesium Hydroxide (Milk Of Magnesia 30 Ml Oral.Susp) 30 ml PO DAILY PRN PRN Reason: Constipation Magnesium Oxide (Magnesium Oxide 400 Mg Tablet) 400 mg PO DAILY@29 [facility] Last Admin: 10/23/24 00:15 Dose: 400 mg Documented By: CLAYTON Melatonin (Melatonin 3 Mg Tablet) 6 mg PO BEDTIME PRN PRN Reason: Insomnia Methylprednisolone Sodium Succinate (Methylprednisolone Sod Succ 40 Mg/Ml Vial) 40 mg IVPUSH Q12H [facility] Last Admin: 10/23/24 07:56 Dose: 40 mg Documented By: TAMMY Montelukast Sodium (Montelukast Sodium 10 Mg Tablet) 10 mg PO BEDTIME@29 [facility] Last Admin: 10/23/24 00:16 Dose: 10 mg Documented By: CLAYTON Morphine Sulfate (Morphine Sulfate Er 30 Mg Tablet.Er) 30 mg PO BID@29,1230 [facility] Last Admin: 10/23/24 12:32 Dose: 30 mg Documented By: TAMMY Nicotine (Nicotine 14 Mg Patch.Td24) 14 mg TRANSDERMA DAILY [facility] Last Admin: 10/23/24 07:57 Dose: 14 mg Documented By: TAMMY Non-Formulary Medication (Yxdytdw-Umkgrptoyy-Zsh-Caff) 1 cap PO QID PRN PRN Reason: headache Non-Formulary Medication (Tiotropium-Olodaterol [Stiolto Respimat]) 2 puff INHALE DAILY@1230 [facility] Omeprazole (Omeprazole 20 Mg Capsule.Dr) 20 mg PO DAILY@0630 [facility] Last Admin: 10/23/24 05:51 Dose: 20 mg Documented By: CLAYTON Oxycodone HCl (Oxycodone Hcl Immed Release 5 Mg Tablet) 5 mg PO BID PRN PRN Reason: severe pain Oxycodone HCl (Oxycodone Hcl Immed Release 5 Mg Tablet) 10 mg PO QID [facility] Last Admin: 10/23/24 11:23 Dose: 10 mg Documented By: TAMMY Pramipexole Dihydrochloride (Pramipexole Di-Hcl 0.25 Mg Tablet) 0.5 mg PO BEDTIME@003 [facility] Last Admin: 10/23/24 00:15 Dose: 0.5 mg Documented By: CLAYTON Pramipexole Dihydrochloride (Pramipexole Di-Hcl 0.25 Mg Tablet) 0.25 mg PO DAILY@1230 [facility] Last Admin: 10/23/24 11:24 Dose: 0.25 mg Documented By: TAMMY Pregabalin (Pregabalin 75 Mg Capsule) 75 mg PO DAILY@003 [facility] Last Admin: 10/23/24 00:15 Dose: 75 mg Documented By: CLAYTON Sodium Chloride (0.9 % Sodium Chloride Flush 3 Ml Syringe) 3 ml IVFLUSH QSHIFT [facility] Last Admin: 10/23/24 07:58 Dose: 3 ml Documented By: TAMMY Labs 10/23/24 10:34 10/23/24 10:34 Labs: Laboratory Results - last 24 hr 10/22/24 10/22/24 10/23/24 16:04 20:05 06:54 MCV MCH MCHC RDW Plt Count MPV Immature Gran % (Auto) Neut % (Auto) Lymph % (Auto) Dixie % (Auto) Eos % (Auto) Baso % (Auto) Lymph # (Auto) Dixie # (Auto) Eos # (Auto) Baso # (Auto) Abs Immat Gran (auto) Absolute Neuts (auto) Absolute Nucleated RBC Nucleated RBC % (auto) Anion Gap Estim Creat Clear Calc Estimated GFR POC Glucose 149 H 132 H 327 H Random Glucose Calcium 10/23/24 10/23/24 10:34 10:51 MCV 81.4 MCH 26.1 L MCHC 32.1 RDW 17.5 H Plt Count 295 MPV 9.7 Immature Gran % (Auto) 0.8 H Neut % (Auto) 81.4 H Lymph % (Auto) 12.2 L Dixie % (Auto) 4.8 Eos % (Auto) 0.4 Baso % (Auto) 0.4 Lymph # (Auto) 1.2 Dixie # (Auto) 0.5 Eos # (Auto) 0.0 Baso # (Auto) 0.0 Abs Immat Gran (auto) 0.08 H Absolute Neuts (auto) 8.0 Absolute Nucleated RBC 0.000 Nucleated RBC % (auto) 0.0 Anion Gap 16 Estim Creat Clear Calc 100.5 Estimated GFR > 60 POC Glucose 198 H Random Glucose 195 H Calcium 9.6 D Assessment and Plan (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: Status: Acute (2) long-term use of drug: Status: Acute (3) Pulmonary hypertension: Status: Acute (4) Congestive heart failure: Status: Acute (5) Insulin 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 2 diabetes: Status: Acute (6) Acute and chronic respiratory failure with hypoxia: Status: Acute (7) Acute exacerbation of chronic obstructive airways disease: Status: Acute (8) Acute and chronic respiratory failure (lyqui-gj-llxxnza): Status: Acute Plan Lashon Parra, 64-year-old female with history of COPD on chronic 4L O2 and CHFpEH, pulmonary HTN, Sjorgen's/ RA, chornic pain disorder on opioid regimen, admitted with multifactorial acute hypoxic respiratory failure and costochondritis. Acute COPD Exacerbation Assessment: Patient presents with worsening breathing over the past 3 weeks, coinciding with discontinuation of steroids. She reports difficulty with movement and activities, requiring increased oxygen support. Patient is on chronic 4L O2 at baseline. Recent hospitalization 2 weeks ago, with subsequent decline in respiratory status. Currently using inhalers, including possibly Trelegy or Advair Diskus. Assessment is consistent with COPD exacerbation. Plan: - Initiate triple therapy for COPD management - Start doxycycline 100 mg b.i.d. p.o. - Administer Lasix for potential fluid overload ??- Patient reports previous use of Lasix 40 mg in the morning ??- Avoid nighttime administration due to patient preference - Continue current inhaler regimen - Reassess respiratory status tomorrow Acute or Chronic CHF Exacerbation Assessment: Patient has a history of congestive heart failure. Current presentation includes symptoms suggestive of fluid overload, which may be contributing to the respiratory distress. This is consistent with a possible acute on chronic CHF exacerbation. Plan: - Administer Lasix for diuresis ??- Patient reports previous use of Lasix 40 mg in the morning ??- Avoid nighttime administration due to patient preference - Reassess fluid status tomorrow - continue cardiac telemetry - Intake/output - Daily weights Costochondritis Assessment: Patient reports localized chest pain exacerbated by movement, deep breathing, and coughing. Pain is described as intense and located in a specific area. These symptoms are consistent with costochondritis, likely secondary to increased coughing from COPD exacerbation. Plan: - Apply Voltaren cream (topical NSAID) to affected area - avoid oral NSAIDs - Educate patient on proper application of topical medication Chronic Pain Management Assessment: Patient reports long-term use of narcotics since 1999 for chronic pain in back, shoulders, and buttocks. Current regimen includes MS Contin 30 mg and oxycodone 10 mg. Patient expresses inadequate pain control with current regimen, especially with increased activity. Plan: - Continue current pain medication regimen: ??- MS Contin 30 mg PO q12h at 12:30 ??- Oxycodone 10 mg PO q6h - Consider additional medications for costochondritis pain - Evaluate potential for injectable pain management options - Reassess pain control and medication efficacy Chronic left lower extremity swelling Ultrasound lower extremity negative for DVT CHRONIC MEDICAL ISSUES - HTN: Continue Norvasc, losartan - GERD: Continue PPI - RA/ Sjogren's syndrome: ? Hydroxychloroquine continue - TENISHA/OHS: Continue CPAP nightly [employer] - VTE: Enoxaparin - CODE STATUS: Full code - DIET: Cardiac Quality Stroke Does the patient have a stroke diagnosis?: No VTE Prior VTE?: No VTE Risk Level:: Medical - moderate - high VTE Device Contraindication: Treatment Not Indicated VTE Drug Contraindication: N/A - Med Ordered
[2024-10-23 16:27] LABS: Glucose, Whole Blood 178 mg/dL (60-115)
[2024-10-23 20:30] LABS: Glucose, Whole Blood 143 mg/dL (60-115)
[2024-10-24] MEDS: 0.9 % Sodium Chloride Flush 3 ML SYRINGE IVFLUSH ×2 (00:23→09:15)
[2024-10-24] MEDS: Morphine Sulfate ER 30 MG TABLET.ER PO ×2 (00:25→12:28)
[2024-10-24] MEDS: Insulin Glargine,Hum.rec.anlog 100 UNIT/ML 10 ML VIAL 40 UNIT SUBCUT (00:26)
[2024-10-24 03:16] VITALS: BP 138/63; PULSE 68; RESP 19; TEMP 36.2; O2SAT 93
[2024-10-24] MEDS: oxyCODONE HCl Immed Release 5 MG TABLET PO (06:07)
[2024-10-24 07:58] LABS: Glucose, Whole Blood 348 mg/dL (60-115)
[2024-10-24 08:00] VITALS: BP 111/55; PULSE 65; RESP 18; TEMP 36.4; O2SAT 92
[2024-10-24 08:09] LABS: MANUAL DIFF FLAG NO
[2024-10-24 08:29] LABS: Hematocrit 48.6 % (37.0-47.0); Hemoglobin 15.0 g/dl (12.0-16.0); Imm Gran Abs Auto 0.07 X10*3/uL (0.00-0.03); Imm Gran Pct Auto 0.8 % (0.0-0.4); Lymphocytes Absolute Auto 2.1 X10*3/uL (1.2-4.9); Mean Corpuscular HGB Conc 30.9 g/dl (31.0-35.0); Mean Corpuscular Hemoglobin 25.8 pg (27.0-33.0); Mean Corpuscular Volume 83.6 fL (80.0-98.0); NRBC Abs Auto 0.000 X10*3/uL (0.0-0.012); NRBC Pct Auto 0.0 /100WBC (0.0-0.2); Platelet Count 264 X10*3/uL (160-400); Red Blood Count 5.81 X10*6/uL (4.20-5.50); White Blood Count 9.3 X10*3/uL (4.8-10.8)
[2024-10-24 09:02] LABS: Anion Gap 15 (12-20); Blood Urea Nitrogen 20 mg/dL (9-16); Calcium 9.0 mg/dL (8.4-10.2); Carbon Dioxide 27 mmol/L (22-29); Chloride 98 mmol/L (96-108); Creatinine Clr Calc Pharmacy 103.8; Estimated Glomerular Filt Rate > 60; Potassium 4.3 mmol/L (3.3-5.1); Sodium 136 mmol/L (135-145)
[2024-10-24 09:03] VITALS: BP 111/55
[2024-10-24] MEDS: Nicotine 14 MG PATCH.TD24 TRANSDERMA (09:03)
[2024-10-24] MEDS: Furosemide 40 MG/4 ML VIAL IVPUSH (09:03)
[2024-10-24] MEDS: Lidocaine 4 % Patch ADH..PATCH 1 PATCH TRANSDERMA (09:09)
[2024-10-24] MEDS: oxyCODONE HCl Immed Release 5 MG TABLET 10 MG PO ×2 (09:21→12:28)
[2024-10-24 11:46] LABS: Glucose, Whole Blood 237 mg/dL (60-115)
--- NOTE | 2024-10-24 11:54 | MHC.CM.PN ---
Per MD patient medically cleared for dc home self care. will transport ~3pm. RN aware.
[2024-10-24 11:55] VITALS: BP 128/66; PULSE 70; RESP 18; TEMP 36; O2SAT 95
--- NOTE | 2024-10-24 12:22 | P.DS_ITS ---
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: Status: Acute (3) Pulmonary hypertension: Status: Acute (4) Congestive heart failure: Status: Acute (5) Insulin 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 2 diabetes: Status: Acute (6) Acute and chronic respiratory failure with hypoxia: Status: Acute (7) Acute exacerbation of chronic obstructive airways disease: Status: Acute (8) Acute and chronic respiratory failure ([id number]): Status: Acute DS: Summary Hospital Course Hospital Course: Lashon Parra, 64-year-old female with history of COPD on chronic 4L O2 and CHFpEH, pulmonary HTN, Sjorgen's/ RA, chornic pain disorder on opioid regimen, admitted with multifactorial acute hypoxic respiratory failure and costochondritis. This is a 64-year-old female with chronic hypoxic respiratory failure due to COPD and Sjogren syndrome with pulmonary hypertension on 4 L of home O2, chronic opiate dependence, celiac disease, ulcerative colitis, Lin's esophagus, restless leg syndrome, TENISHA on CPAP, HFpEF who presents to the emergency department with chest pain and shortness of breath. Patient is a vague historian, was discharged from [facility] on October 01 with a course of steroids. She initially felt better. For the past 3 days she has been having chest pain with and shortness of breath with movement. She does not ambulate much at baseline and only walks to a commode which is in her living room. But typically she is able to take off her oxygen at rest but for the past 3 days she has required 4 L of supplemental oxygen constantly. She reports swelling in her left lower extremity. She states she has a chronic cough which is unchanged from her baseline she denies any fever or associated chills. In the emergency department oxygen saturations were stable on her baseline 4 L. CTA showed suspected pulmonary vascular congestion with interval resolution of left lower lobe atelectasis. She received IV antibiotics, IV steroids, breathing treatments as well as IV magnesium but continued to report dyspnea and therefore will be admitted for further management. Acute COPD Exacerbation Assessment: Patient presents with worsening breathing over the past 3 weeks, coinciding with discontinuation of steroids. She reports difficulty with movement and activities, requiring increased oxygen support. Patient is on chronic 4L O2 at baseline. Recent hospitalization 2 weeks ago, with subsequent decline in respiratory status. Currently using inhalers, including possibly Trelegy or Advair Diskus. Assessment is consistent with COPD exacerbation. Resolved with prednisone & doxycycline Acute or Chronic CHF Exacerbation Assessment: Patient has a history of congestive heart failure. Current presentat ion includes symptoms suggestive of fluid overload, which may be contributing to the respiratory distress. This is consistent with a possible acute on chronic CHF exacerbation. Costochondritis Assessment: Patient reports localized chest pain exacerbated by movement, deep breathing, and coughing. Pain is described as intense and located in a specific area. These symptoms are consistent with costochondritis, likely secondary to increased coughing from COPD exacerbation. Improved with Lidocaine patch and conservative management Chronic Pain Management Assessment: Patient reports long-term use of narcotics since 1999 for chronic pain in back, shoulders, and buttocks. Current regimen includes MS Contin 30 mg and oxycodone 10 mg. Patient expresses inadequate pain control with current regimen, especially with increased activity. Continue home regimen Chronic left lower extremity swelling Ultrasound lower extremity negative for DVT CHRONIC MEDICAL ISSUES - HTN: Continue Norvasc, losartan - GERD: Continue PPI - RA/ Sjogren's syndrome: Hydroxychloroquine continue - TENISHA/OHS: Continue CPAP nightly Status at Discharge Functional status at discharge: independent ambulation Overall status at discharge: patient is back to baseline Time Attestation Total time managing care of this patient today: 35 mintues. Discharge Coordination Time (in mins): 15 Quality: Safe Use of Opioids Does Pt have an Active Cancer Diagnosis on the Problem List?: No Quality: Stroke Does the patient have a stroke diagnosis?: No Physical Exam Exam: Exam: General: A&O x3, oriented to time place person and situation, comfortable, no pain Cardiac: S1, S2 auscultated with no S3/4, no MRG. Well perfused. Respiratory: Normal breath sounds auscultated throughout all lung zones, without wheezing, rales. Normal rate. On 4 L NC GI/ : No abdominal pain on palpation, no masses or distentions. MSK: Normal ambulation without pain at bony prominences or musculature. Mild left lower extremity swelling compared to right-sided (chronic) Neurological: Normal neurological examination on overview, without obvious CN II-XII abnormalities. Vital Signs: Vital Signs: Last Vital Signs Temp 96.8 F 10/24/24 11:55 Pulse 70 10/24/24 11:55 Resp 18 10/24/24 11:55 BP 128/66 10/24/24 11:55 Pulse Ox 95 10/24/24 11:55 O2 Del Method Nasal Cannula 10/24/24 11:55 O2 Flow Rate 2 10/24/24 11:55 BMI result Body Mass Index 34.8 DS: Data Data Completed and Pending Completed studies during hospitalization [Text1]: Procedures Assistance with Respiratory Ventilation, Less than 24 Consecutive Hours, Continuous Positive Airway Pressure (07/27/24) Labs on day of discharge: Laboratory Results - last 24 hr 10/23/24 10/23/24 10/24/24 16:13 20:26 07:43 WBC 9.3 RBC 5.81 H Hgb 15.0 Hct 48.6 H MCV 83.6 MCH 25.8 L MCHC 30.9 L RDW 17.4 H Plt Count 264 MPV 9.7 Immature Gran % (Auto) 0.8 H Neut % (Auto) 69.3 Lymph % (Auto) 22.7 Christian % (Auto) 6.6 Eos % (Auto) 0.2 Baso % (Auto) 0.4 Lymph # (Auto) 2.1 Christian # (Auto) 0.6 Eos # (Auto) 0.0 Baso # (Auto) 0.0 Abs Immat Gran (auto) 0.07 H Absolute Neuts (auto) 6.4 Absolute Nucleated RBC 0.000 Nucleated RBC % (auto) 0.0 Sodium 136 Potassium 4.3 Chloride 98 Carbon Dioxide 27 Anion Gap 15 BUN 20 H Creatinine 0.61 Estim Creat Clear Calc 103.8 Estimated GFR > 60 POC Glucose 178 H 143 H Random Glucose 367 H* Calcium 9.0 D 10/24/24 10/24/24 07:52 11:41 WBC RBC Hgb Hct MCV MCH MCHC RDW Plt Count MPV Immature Gran % (Auto) Neut % (Auto) Lymph % (Auto) Christian % (Auto) Eos % (Auto) Baso % (Auto) Lymph # (Auto) Christian # (Auto) Eos # (Auto) Baso # (Auto) Abs Immat Gran (auto) Absolute Neuts (auto) Absolute Nucleated RBC Nucleated RBC % (auto) Sodium Potassium Chloride Carbon Dioxide Anion Gap BUN Creatinine Estim Creat Clear Calc Estimated GFR POC Glucose 348 H 237 H Random Glucose Calcium Discharge Plan Discharge Anticipated Discharge Date/Time: 10/24/24 12:27 Patient Disposition: Home, Self-Care Discharge Diagnosis: Acute hypoxic respiratory failure Referrals: Dottie Douglass MD [Primary Care Provider, Endocrinology] - 1 Week Discharge Medications: New doxycycline monohydrate 100 mg Capsule 100 mg PO Q12H 7 Days Qty: 14 0RF cyclobenzaprine 5 mg Tablet 5 mg PO TID PRN (Reason: spasm back) 3 Days Qty: 9 0RF prednisone 20 mg tablet 40 mg PO DAILY 7 Days Qty: 14 0RF lidocaine [Lidocaine Pain Relief] 4 % Adhesive Patch,Medicated 3 patch transdermal DAILY 7 Days Qty: 21 0RF Protocol: Apply to: Apply to: right anterior chest Continued (DME) blood-glucose meter Kit See Rx Instructions .Route Qty: 1 0RF Rx Instructions: 4 times daily to check blood glucose (DME) Oxygen Home Use Kit See Rx Instructions .Route Qty: 1 3RF Rx Instructions: 2L continuous abbgdjz-vhyeryxnce-NJQ-caff [id number] mg capsule 1 cap PO QID PRN (Reason: headache) 28 Days Qty: 28 0RF morphine 30 mg tablet extended release 30 mg PO BID@0030,1230 28 Days Qty: 56 0RF oxycodone 10 mg tablet 10 mg PO QID PRN (Reason: pain) 28 Days Qty: 112 0RF aspirin 325 mg Tablet 325 mg PO BID@0030,1230 baclofen 10 mg tablet 10 mg PO BID PRN (Reason: Muscle Pain) albuterol sulfate 90 mcg/actuation HFA aerosol inhaler 2 puff INHALATION Q6H PRN (Reason: wheezing) Stiolto Respimat 2.5-2.5 mcg/actuation mist 2 puff INHALATION DAILY@1230 pantoprazole 40 mg tablet,delayed release (DR/EC) 40 mg PO DAILY@0630 montelukast 10 mg tablet 10 mg PO BEDTIME@0030 insulin glargine [Lantus Solostar U-100 Insulin] 100 unit/mL (3 mL) Insulin P en 40 unit SUBCUT DAILY@0030 furosemide [Lasix] 40 mg tablet 40 mg PO DAILY@1230 pramipexole 0.25 mg tablet 0.5 mg PO BEDTIME@0030 magnesium oxide 400 mg (241.3 mg magnesium) tablet 400 mg PO DAILY@0030 metformin 1,000 mg tablet 1,000 mg PO BID@0030,1230 losartan 25 mg tablet 25 mg PO DAILY@0030 pramipexole 0.25 mg tablet 0.25 mg PO DAILY@1230 mupirocin 2 % ointment 1 appl topical DAILY PRN (Reason: AFFECTED AREA) hydroxychloroquine 200 mg tablet 200 mg PO DAILY@0030 insulin lispro [Humalog KwikPen Insulin] 100 unit/mL insulin pen 25 unit subcut TIDAC Rx Instructions: Per sliding scale pregabalin [Lyrica] 75 mg capsule 75 mg PO DAILY@0030 (DME) FreeStyle Mag 3 Plus Sensor Device See Rx Instructions .Route Qty: 6 3RF Rx Instructions: As directed (DME) FreeStyle Mag 3 [place] Misc See Rx Instructions .Route Qty: 1 0RF Rx Instructions: As directed (DME) Dexcom G7 Sensor Device See Rx Instructions .Route Qty: 6 3RF Rx Instructions: every 15 days (DME) Dexcom G7 Pickle Sorter Misc See Rx Instructions .Route Qty: 1 0RF Rx Instructions: As directed ondansetron 4 mg tablet,disintegrating 4 mg PO Q8H PRN (Reason: nausea and vomiting) Qty: 30 1RF amlodipine 10 mg tablet 10 mg PO DAILY@0030 Qty: 90 3RF Discharge Orders: Discharge Order (Routine); Ordered 10/24/24 Ordered By: Yeny Mckeon Activity on Discharge: As tolerated Stand Alone Forms: Patient Portal Discharge page Print Language: Maori Care Plan Goals: As above Health Concerns: As above Plan of Treatment: Continue antibiotics Continue prednisone Follow up outpatient pulmonology Follow up PCP within 1 week of discharge Assessment: Deemed hemodynamically stable after admission for acute hypoxic respiratory failure multifactorial in etiology, with superimposed costochondritis
== END 2024-10-24 15:11 | disposition home or self-care (01) | DRG 190 ==
LOC: HO.ED 12:28 → HO.EDOVER 15:40 → HO.IMC 19:48
PROVIDERS: Admitting Provider Physician Assistant Medical; Emergency Provider Emergency Medicine; PCP Internal Medicine; Visit Provider Hospitalist
DX: J44.1 Chronic obstructive pulmonary disease with (acute) exacerbation (principal); I50.33 Acute on chronic diastolic (congestive) heart failure; J96.21 Acute and chronic respiratory failure with hypoxia; I11.0 Hypertensive heart disease with heart failure; M35.00 Sjogren syndrome, unspecified; E11.65 Type 2 diabetes mellitus with hyperglycemia; M06.9 Rheumatoid arthritis, unspecified; Z20.822 Contact with and (suspected) exposure to COVID-19; G89.29 Other chronic pain; E66.01 Morbid (severe) obesity due to excess calories; M94.0 Chondrocostal junction syndrome [Tietze]; M79.89 Other specified soft tissue disorders; Z68.34 Body mass index [BMI] 34.0-34.9, adult; Z71.3 Dietary counseling and surveillance; Z99.81 Dependence on supplemental oxygen; Z79.4 Long term (current) use of insulin; Z79.82 Long term (current) use of aspirin; Z79.84 Long term (current) use of oral hypoglycemic drugs; Z79.891 Long term (current) use of opiate analgesic; Z79.899 Other long term (current) drug therapy
CPT/HCPCS: 36415; 71045; 71275; 80048; 80053; 82803; 82947; 83735; 83880; 84484; 85025; 85610; 87502; 87633; 87635; 93005; 93971; 94640; 99285; J0696; J1271; J1650; J1938; J2919; J3475; Q9967

== ENCOUNTER → 2024-10-21 07:41 | Outpatient (BNV) | payer OTHER, SELFPAY | PROVIDERS: Emergency Provider Emergency Medicine; PCP Internal Medicine; Visit Provider Internal Medicine Cardiovascular Disease | DX: I44.5 Left posterior fascicular block (principal) | CPT/HCPCS: 93010 ==

== ENCOUNTER → 2024-10-21 08:16 | Outpatient (BNV) | payer OTHER, SELFPAY | PROVIDERS: Emergency Provider Emergency Medicine; PCP Internal Medicine; Visit Provider Radiology Diagnostic Radiology | DX: J98.11 Atelectasis (principal); R22.42 Localized swelling, mass and lump, left lower limb; R06.02 Shortness of breath | CPT/HCPCS: 71045; 71275; 93971 ==

== ENCOUNTER → 2024-10-21 15:37 | Outpatient (BNV) | payer OTHER, SELFPAY | PROVIDERS: Admitting Provider Physician Assistant Medical; Emergency Provider Emergency Medicine; PCP Internal Medicine; Visit Provider Physician Assistant Medical | DX: J44.1 Chronic obstructive pulmonary disease with (acute) exacerbation (principal); I50.9 Heart failure, unspecified; I27.20 Pulmonary hypertension, unspecified; Z79.891 Long term (current) use of opiate analgesic; E11.65 Type 2 diabetes mellitus with hyperglycemia; Z79.4 Long term (current) use of insulin; R07.89 Other chest pain; R06.09 Other forms of dyspnea | CPT/HCPCS: 99223; 99232; 99239 ==

== ENCOUNTER 2024-11-04 07:00 | Inpatient (IN) | payer OTHER, SELFPAY ==
[2024-11-04] VITALS (11 sets, daily range): BP systolic 103–133; BP diastolic 52–101; PULSE 84–98; RESP 12–24; TEMP 36.8–37.1; O2SAT 90–95; BMI 33.9; BMI 34.6; BMI 34.2
--- NOTE | ~2024-11-04 | XR_ITS ---
EXAMINATION: XR CHEST 1 VIEW HISTORY: pain COMPARISON: Comparison is made with the prior examination dated 10/21/2024. FINDINGS: A single AP portable view of the chest performed at 8:16 AM is submitted. There is new opacification of the left lung base, consistent with atelectasis, pneumonia, or pleural fluid. Again seen are increased interstitial markings at the lung apices. There is no pneumothorax or pulmonary vascular congestion. The heart is normal in size. There is degenerative disc disease of the spine. The patient is status post reverse right shoulder arthroplasty. XR/XR chest 1V IMPRESSION: Opacification of the left lung base, consistent with atelectasis, pneumonia, or pleural fluid. Electronically signed by: Sumanth Spear MD 11/04/2024 08:28 AM EDT
--- NOTE | 2024-11-04 07:03 | ECG_ITS ---
Test Reason : chest pain Blood Pressure : */* mmHG Vent. Rate : 95 BPM Atrial Rate : 95 BPM P-R Int : 116 ms QRS Dur : 74 ms QT Int : 346 ms P-R-T Axes : 35 122 61 degrees QTcB Int : 434 ms Artifact in tracing Normal sinus rhythm with sinus arrhythmia Left posterior fascicular block Cannot rule out Anterior infarct , age undetermined Abnormal ECG When compared with ECG of 21-Oct-2024 07:41, Minimal criteria for Anterior infarct are now Present Referred By: Generic ED Physician Electronically Signed By: CHULA DANIELLE
[2024-11-04] MEDS: Albuterol Sulfate 2.5 MG, Albuterol/Iprat 2.5/0.5MG 3 ML 3 ML INHALE (07:41)
[2024-11-04 08:02] LABS: Glucose, Whole Blood 272 mg/dL (60-115)
--- NOTE | 2024-11-04 08:06 | ED.CHESTPAIN ---
HPI - Chest Pain General Chief Complaint: Chest Pain Stated Complaint: Chestpain Time Seen by Provider: 11/04/24 07:20 Source: patient, EMS and old records reviewed Mode of arrival: EMS Limitations: no limitations History of Present Illness ED Provider: LEYDI RÍOS narrative: 64 yo female with PMH of CHF, pulm HTN, pneumonia, DM, polycythemia, TENISHA, RA, ulcerative colitis, sjogrens, arthritis, chronic left leg edema, acute on chronic resp failure - on 4L NC daily - she still smokes about a half pack a day she has been smoking since age 13 - she notes 24 hours of R sided chest pain worse with cough, no change in baseline sputum, has chills. She states she feels more short of breath than usual. She denies travel, sick contacts. She has no n/v/d. She was on prednisone and doxy about 2 weeks ago after admission here and DC on 10/24 for COPD. She did get better on DC until yesterday. She was at home resting when all symptoms started. MD complaint: chest pain (cough, dyspnea, fatigue, chills) Pertinent past history: other Onset (ago): hour(s) (24) Timing of current episode: constant Prior episodes: Yes Onset: during rest Pain location: right chest Pain radiation: none Severity: moderate Quality: aching and sharp Relieving factors: nothing Exacerbating factors: other (COUGH) Context: recent illness Associated symptoms: dyspnea Treatment prior to arrival: oxygen Related Data Home Medications ?Medication ?Instructions ?Recorded ?Confirmed aspirin 325 mg tablet 325 mg PO BID@09/27/20 11/04/24 hydroxychloroquine 200 mg tablet 200 mg PO DAILY@2907/27/24 11/04/24 losartan 25 mg tablet 25 mg PO DAILY@2907/27/24 11/04/24 magnesium oxide 400 mg (241.3 mg 400 mg PO DAILY@2907/27/24 11/04/24 magnesium) tablet metformin 1,000 mg tablet 1,000 mg PO BID@07/27/24 11/04/24 pramipexole 0.25 mg tablet 1 mg PO DAILY@122907/27/24 11/04/24 pregabalin 75 mg capsule (Lyrica) 75 mg PO DAILY@2907/27/24 11/04/24 albuterol sulfate 90 mcg/actuation 2 puff inhalation Q6H PRN wheezing 09/13/24 11/04/24 aerosol inhaler montelukast 10 mg tablet 10 mg PO BEDTIME@0030 09/13/24 11/04/24 pantoprazole 40 mg tablet,delayed 40 mg PO DAILY@0630 09/13/24 11/04/24 release tiotropium 2.5 mcg-olodaterol 2.5 2 puff inhalation DAILY@1230 09/13/24 11/04/24 mcg/actuation mist for inhalation (Stiolto Respimat) furosemide 40 mg tablet (Lasix) 40 mg PO DAILY@1230 09/28/24 11/04/24 insulin glargine-yfgn 100 unit/mL 40 unit subcut DAILY 11/04/24 11/04/24 subcutaneous solution insulin lispro 100 unit/mL 25 unit subcut TIDAC 11/04/24 11/04/24 subcutaneous pen lidocaine 4 % topical patch 3 patch transdermal DAILY PRN Pain 11/04/24 11/04/24 (Lidocaine Pain Relief) nicotine (polacrilex) 4 mg buccal 4 mg buccal Q4H PRN nicotine 11/04/24 11/04/24 lozenge cravings nystatin 100,000 unit/mL oral 5 ml PO DAILY 11/04/24 11/04/24 suspension Previous Rx's ?Medication ?Instructions ?Recorded blood-glucose meter #1 ea 08/25/23 FreeStyle Mag 3 Plus Sensor #6 ea 12/16/23 (blood-glucose sensor) FreeStyle Mag 3 [place] #1 ea 12/16/23 (blood-glucose,heat treat puller,cont) Oxygen Home Use #1 ea 04/16/24 Dexcom G7 [place] #1 ea 08/09/24 (blood-glucose,heat treat puller,cont) Dexcom G7 Sensor (blood-glucose #6 ea 08/09/24 sensor) amlodipine 10 mg tablet 10 mg PO DAILY@0030 #90 tabs 08/09/24 ondansetron 4 mg disintegrating 4 mg PO Q8H PRN nausea and 08/09/24 tablet vomiting #30 tabs morphine 30 mg tablet,extended 30 mg PO BID@0030,1230 28 days #56 10/20/24 release tabs oxycodone 10 mg tablet 10 mg PO QID PRN pain 28 days #112 10/20/24 tabs benobua-updoeokehf-KIJ-caffeine 30 1 cap PO QID PRN headache 28 days 11/03/24 mg-50 mg-325 mg-40 mg capsule #28 caps Allergies Allergy/AdvReac Type Severity Reaction Status Date / Time atorvastatin (From LIPITOR) Allergy Severe Difficulty Verified 11/04/24 07:12 Breathing azithromycin (AZITHROMYCIN) Allergy Severe Difficulty Verified 11/04/24 07:12 Breathing mite-Dermatophagoides Allergy Severe Difficulty Verified 11/04/24 07:12 farinae, vicente (dust mite - Breathing [place]) sumatriptan (From IMITREX) Allergy Severe Difficulty Verified 11/04/24 07:12 Breathing house dust Allergy Mild Unknown Verified 11/04/24 07:12 acetaminophen (From TYLENOL) Allergy Unknown Itching Verified 11/04/24 07:12 adhesive tape (ADHESIVE TAPE) Allergy Unknown Rash Verified 11/04/24 07:12 gentamicin (GENTAMICIN) Allergy Unknown Rash Verified 11/04/24 07:12 adalimumab (From Humira) Allergy Rash Verified 11/04/24 07:12 erythromycin base Allergy Unknown Verified 11/04/24 07:12 haloperidol (From HALDOL) AdvReac Unknown GI Issues Verified 11/04/24 07:12 ketorolac (From TORADOL) AdvReac Unknown Muscle Verified 11/04/24 07:12 cramps prasterone (DHEA) (From DHEA) AdvReac Unknown Cardiac Verified 11/04/24 07:12 issues varenicline (From CHANTIX) AdvReac Unknown Seizure Verified 11/04/24 07:12 ipratropium (From Atrovent) AdvReac Migraine Verified 11/04/24 07:12 Review of Systems Review of Systems: Constitutional : No Fever, pos Chills ENT/Mouth : No Hoarseness, No sore throat, No Rhinorrhea Eyes: No Redness, No Discharge, No Vision Changes Cardiovascular :pos Chest Pain, positive SOB, positive Dyspnea on Exertion, pos Edema Respiratory : positive Cough,pos Sputum, positive Wheezing, Gastrointestinal : No Nausea, No Vomiting, No Diarrhea, No abdominal Pain Genitourinary : No Dysuria, No Hematuria Musculoskeletal : No joint pain, No Myalgias Skin : No rash Neuro : No Weakness, No Numbness, No Headache All other systems reviewed and are negative [facility] Past Medical History Attestation statement: The following information was validated with the patient. Source: old records reviewed Medical History Pulmonary hypertension Tobacco dependence due to cigarettes Diabetes mellitus with hyperglycemia Chronic pain syndrome care home (current) use of opiate analgesic Osteoporosis Sjogrens syndrome Rheumatoid arthritis Osteoarthritis Chronic, continuous use of opioids GERD (gastroesophageal reflux disease) Hx of difficult intubation Smoker COPD (chronic obstructive pulmonary disease) Asthma Polycythemia Boils Eczema Bursitis Disc degeneration Sleep apnea Diabetes Fibromyalgia Surgical History History of esophagogastroduodenoscopy (EGD) Hx of tonsillectomy History of surgical removal of pilonidal cyst Hx of plastic surgery Hx of hysterectomy Hx of cholecystectomy Hx of appendectomy History of colonoscopy History of bladder suspension procedure History of removal of cyst Family History Family History Mother Polycythemia TIA (transient ischemic attack) Father Heart attack Other No family history of cancer Social History Social History Household Members: Spouse Housing: House Are you a primary child care specialist to a significant other at home: No Do you presently have visiting nurse or other home services: Yes Alcohol intake: never Comment: pt refusing alarms Patient Tobacco Use Status: Current everyday Tobacco user Tobacco use type: Cigarette Cigarette Packs Per Day: 1 Cigarettes Per Day: 20.0 Years Smoked: 51 Smoked in Last 30 Days: Yes e-Cigarette/Vaping Use: Never Used Second Hand Smoke Exposure: No Use of substances other than those prescribed or required for medical reasons: No Advance Directives: Yes Advance Directives on File: Yes Advance Directives Date on File: 12/24/19 Do you have a plan to hurt others: No Plan service: No Current occupational status: retired 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 Cognitive needs: No Hearing needs: No Vision needs: No Physical Exam Vital Signs: Vital Signs: Last Vital Signs Temp 98.8 F 11/04/24 12:07 Pulse 84 11/04/24 16:38 Resp 17 11/04/24 16:38 BP 103/52 L 11/04/24 16:38 Pulse Ox 91 L 11/04/24 16:38 O2 Del Method Room Air 11/04/24 16:38 O2 Flow Rate 2 11/04/24 16:38 Oxygen Flow Rate 2 11/04/24 07:11 BMI result Body Mass Index 33.9 Appearance: Alert. Oriented X3. No acute distress. Eyes: Pupils equal, round and reactive to light. ENT: Pharynx normal. Neck: Normal inspection. Neck supple. CVS: Normal heart rate and rhythm. Pulses normal. Respiratory: No respiratory distress. Breath sounds very diminished and coarse with wheezes in upper lobs Abdomen: Soft and nontender. Skin: Skin warm and dry. Normal skin color. Normal skin turgor. Extremities: left leg 1+ pitting edema - R leg no edema Neuro: Oriented X 3. No motor deficit. No sensory deficit. Medications Administered Generic Name Dose Route Start Last Admin Trade Name Freq PRN Reason Stop Dose Admin Aspirin 325 mg 11/04/24 12:30 11/04/24 12:59 Aspirin 325 Mg Tablet PO 325 mg BID@29,1229 [facility] Administration Furosemide 40 mg 11/04/24 12:30 11/04/24 12:44 Furosemide 40 Mg Tablet PO 40 mg DAILY@1230 [facility] Administration Protocol Insulin Glargine 40 unit 11/04/24 12:00 11/04/24 12:44 Insulin Glargine,Hum.Rec.Anlog 100 Unit/Ml 10 Ml Vial SUBCUT 40 unit DAILY BETSEY Administration Insulin Human Lispro 0 unit 11/04/24 11:30 11/04/24 12:54 Insulin Lispro 100 Unit/Ml 3 Ml Vial SUBCUT 6 unit QIDACHS [facility] Administration Protocol Lidocaine 1 patch 11/04/24 10:58 11/04/24 11:20 Lidocaine 4 % Patch Adh..Patch TRANSDERMA 1 patch DAILY [facility] Administration Protocol Morphine Sulfate 30 mg 11/04/24 12:30 11/04/24 12:59 Morphine Sulfate Er 30 Mg Tablet.Er PO 30 mg BID@0,1230 [facility] Administration Oxycodone HCl 10 mg 11/04/24 11:08 11/04/24 13:02 Oxycodone Hcl Immed Release 5 Mg Tablet PO 10 mg QID PRN Administration Pain, Moderate(Pain Scale 4-6) Pramipexole Dihydrochloride 1 mg 11/04/24 12:30 11/04/24 13:25 Pramipexole Di-Hcl 1 Mg Tablet PO 1 mg DAILY@1230 [facility] Administration Sodium Chloride 3 ml 11/04/24 16:00 11/04/24 16:53 0.9 % Sodium Chloride Flush 3 Ml Syringe IVFLUSH 3 ml QSHIFT BETSEY Administration Discontinued Medications Generic Name Dose Route Start Last Admin Trade Name Julienne PRN Reason Stop Dose Admin Ceftriaxone Sodium 1 gm 11/04/24 07:26 11/04/24 08:43 Ceftriaxone Sodium 1 Gm Vial IVPUSH 11/04/24 07:27 1 gm ONCE ONE Administration Albuterol Sulfate 2.5 mg/ 0 mg 11/04/24 07:38 11/04/24 07:41 Albuterol/Ipratropium 3 ml INHALE 11/04/24 07:39 5 dose ONCE ONE Administration Enoxaparin Sodium 40 mg 11/04/24 10:30 11/04/24 11:05 Enoxaparin Sodium 40 Mg/0.4 Ml Syringe SUBCUT 40 mg Q24H BETSEY Administration Fentanyl 50 mcg 11/04/24 07:39 11/04/24 08:42 Fentanyl Citrate/Pf 100 Mcg/2 Ml Vial IVPUSH 11/04/24 07:40 50 mcg ONCE ONE Administration Protocol Magnesium Sulfate 2 gm in 50 mls @ 150 mls/hr 11/04/24 08:35 11/04/24 09:22 Magnesium Sulfate/H2o IV 11/04/24 08:54 Infused ONCE ONE Infusion Doxycycline Hyclate 100 mg/ 250 mls @ 166.67 mls/hr 11/04/24 09:21 11/04/24 11:04 Sodium Chloride IV 11/04/24 10:50 Infused ONCE ONE Infusion Methylprednisolone Sodium Succinate 60 mg 11/04/24 07:26 11/04/24 08:42 Methylprednisolone Sod Succ 125 Mg/2 Ml Vial IVPUSH 11/04/24 07:27 60 mg ONCE ONE Administration Medical Decision Making Medical Decision Making MDM Narrative: 64 yo female with PMH of CHF, pulm HTN, pneumonia, DM, polycythemia, TENISHA, RA, ulcerative colitis, sjogrens, arthritis, chronic left leg edema, acute on chronic resp failure - on 4L NC daily now here with R sided chest pain, cough, chills, dyspnea on her baseline at this time possible bronchitis, URI, pneumonia, VTE, less likely ACS pain is atypical. Will obtain basic labs, CXR, trop, start on steroids, neb and IV ceftriaxone. CTA if ddimer negative Differential Diagnosis Differential Diagnoses: The differential diagnosis associated with the presentation includes COPD, bronchitis, pneumonia, VTE low to mod probability Admission/Observation Consideration of admission/observation: Escalation of care including admission/observation considered plan to admit for IV abx, steroids, further management Consult Healthcare Provider Management of the patient was discussed with: Hospitalist (will admit) Lab Data [facility] Lab Attestation statement: I reviewed the patient's lab results. VBG stable elevated wbc count ddimer negative 11/04/24 08:06 11/04/24 08:55 Labs: Lab Results 11/04/24 11/04/24 11/04/24 Range/Units 07:51 08:06 08:55 WBC 15.3 H (4.8-10.8) X10*3/uL RBC 6.15 H (4.20-5.50) X10*6/uL Hgb 16.4 H (12.0-16.0) g/dl Hct 50.0 H (37.0-47.0) % MCV 81.3 (80.0-98.0) fL MCH 26.7 L (27.0-33.0) pg MCHC 32.8 (31.0-35.0) g/dl RDW 19.0 H (11.0-16.0) % Plt Count 240 (160-400) X10*3/uL MPV 9.4 (9.4-12.3) fL Immature Gran % (Auto) 1.4 H (0.0-0.4) % Neut % (Auto) 71.2 (45-73) % Lymph % (Auto) 19.7 L (20-40) % Bath % (Auto) 5.8 (2-11) % Eos % (Auto) 1.2 (0-4) % Baso % (Auto) 0.7 (0-2) % Lymph # (Auto) 3.0 (1.2-4.9) X10*3/uL Bath # (Auto) 0.9 (0.1-1.2) X10*3/uL Eos # (Auto) 0.2 (0.0-0.4) X10*3/uL Baso # (Auto) 0.1 (0.0-0.2) X10*3/uL Abs Immat Gran (auto) 0.21 H (0.00-0.03) X10*3/uL Absolute Neuts (auto) 10.9 H (2.0-8.3) x10*3/uL Absolute Nucleated RBC 0.000 (0.0-0.012) X10*3/uL Nucleated RBC % (auto) 0.0 (0.0-0.2) /100WBC D-Dimer High Sensitivty 182 NG/ML VBG pH (7.32-7.43) VBG pCO2 mmHg VBG pO2 mmHg VBG HCO3 (22-26) mmol/L VBG O2 Saturation % VBG Base Excess mmol/L Sodium 136 (135-145) mmol/L Potassium 4.1 (3.3-5.1) mmol/L Chloride 96 (96-108) mmol/L Carbon Dioxide 33 H (22-29) mmol/L Anion Gap 11 L (12-20) BUN 21 H (9-16) mg/dL Creatinine 0.69 (0.5-1.4) mg/dL Estim Creat Clear Calc 90.4 Estimated GFR > 60 POC Glucose 272 H (60-115) mg/dL Random Glucose 238 H (60-115) mg/dL Estimat Average Glucose 212 mg/dL Hemoglobin A1c % 9.0 H (<6.0) % Lactic Acid 1.9 (0.5-2.0) mmol/L Calcium 9.0 (8.4-10.2) mg/dL Magnesium 1.7 (1.6-2.6) mg/dL Total Bilirubin 0.2 (0.0-1.0) mg/dL AST 18 (5-31) U/L ALT 15 (0-31) U/L Alkaline Phosphatase 83 (39-117) U/L Troponin I High Sens 14.5 D (<3.5-17.0) ng/L C-Reactive Protein 8.92 H (< or = 0.50) mg/dL NT-Pro-B Natriuret Pep 444.0 H (<300) pg/mL Total Protein 6.5 (6.5-8.0) g/dL Albumin 3.6 (3.5-5.0) g/dL Procalcitonin 0.04 ng/mL 11/04/24 Range/Units 09:04 WBC (4.8-10.8) X10*3/uL RBC (4.20-5.50) X10*6/uL Hgb (12.0-16.0) g/dl Hct (37.0-47.0) % MCV (80.0-98.0) fL MCH (27.0-33.0) pg MCHC (31.0-35.0) g/dl RDW (11.0-16.0) % Plt Count (160-400) X10*3/uL MPV (9.4-12.3) fL Immature Gran % (Auto) (0.0-0.4) % Neut % (Auto) (45-73) % Lymph % (Auto) (20-40) % Bath % (Auto) (2-11) % Eos % (Auto) (0-4) % Baso % (Auto) (0-2) % Lymph # (Auto) (1.2-4.9) X10*3/uL Bath # (Auto) (0.1-1.2) X10*3/uL Eos # (Auto) (0.0-0.4) X10*3/uL Baso # (Auto) (0.0-0.2) X10*3/uL Abs Immat Gran (auto) (0.00-0.03) X10*3/uL Absolute Neuts (auto) (2.0-8.3) x10*3/uL Absolute Nucleated RBC (0.0-0.012) X10*3/uL Nucleated RBC % (auto) (0.0-0.2) /100WBC D-Dimer High Sensitivty NG/ML VBG pH 7.45 H (7.32-7.43) VBG pCO2 48 mmHg VBG pO2 107 mmHg VBG HCO3 33 H (22-26) mmol/L VBG O2 Saturation 99.0 % VBG Base Excess 8.1 mmol/L Sodium (135-145) mmol/L Potassium (3.3-5.1) mmol/L Chloride (96-108) mmol/L Carbon Dioxide (22-29) mmol/L Anion Gap (12-20) BUN (9-16) mg/dL Creatinine (0.5-1.4) mg/dL Estim Creat Clear Calc Estimated GFR POC Glucose (60-115) mg/dL Random Glucose (60-115) mg/dL Estimat Average Glucose mg/dL Hemoglobin A1c % (<6.0) % Lactic Acid (0.5-2.0) mmol/L Calcium (8.4-10.2) mg/dL Magnesium (1.6-2.6) mg/dL Total Bilirubin (0.0-1.0) mg/dL AST (5-31) U/L ALT (0-31) U/L Alkaline Phosphatase (39-117) U/L Troponin I High Sens (<3.5-17.0) ng/L C-Reactive Protein (< or = 0.50) mg/dL NT-Pro-B Natriuret Pep (<300) pg/mL Total Protein (6.5-8.0) g/dL Albumin (3.5-5.0) g/dL Procalcitonin ng/mL Independent Interpretation I performed an independent interpretation of an: EKG and Plain X-Ray (left lung opacification) Interpretation: Rate: 95 Rhythm: NSR Braham: normal Normal P waves. Normal JAZLYN. Normal QRS complex. Poor R wave progression more evident ST T wave : no MALATHI, artifact noted has t wave inversions on V1, V2 qTC: 434 prior studies:t wave inversions are old The study has been interpreted contemporaneously by me. Radiology Impression Discussion of test interpretation with radiology: I have reviewed the radiologist's reading. Independent Historian Clinical information obtained from an independent historian. History obtained from or confirmed by: EMS External Record Review External record reviewed: Inpatient record, Outpatient record, Prior outpatient labs and Prior outpatient radiology Critical Care Time Critical Care Time Critical Care Time: Yes Total Critical Care Time: 45 Attestation: Time is exclusive of separately billable procedures. Time includes: direct patient care, patient reassessment, coordination of patient care, interpretation of data (laboratory data, pulse oximetry, venous blood gases and chest xrays), review of patient's medical records, medical consultation and documentation of patient care. IV magnesium, repeat nebsProcedures excluded from critical care time: electrocardiography. I attest to this time spent taking care of the patient Discharge Plan Discharge Clinical Impression: Pneumonia Qualifiers: Pneumonia type: due to unspecified organism Laterality: left Lung location: lower lobe of lung Qualified Code(s): J18.9 - Pneumonia, unspecified organism COPD (chronic obstructive pulmonary disease) Qualifiers: COPD type: COPD with acute exacerbation Qualified Code(s): J44.1 - Chronic obstructive pulmonary disease with (acute) exacerbation Patient Disposition: Admitted As Inpatient Interventions: Admission Worksheet (ED) Last Done: 11/04/24 15:11
[2024-11-04 08:14] LABS: MANUAL DIFF FLAG NO
[2024-11-04 08:27] LABS: Hematocrit 50.0 % (37.0-47.0); Hemoglobin 16.4 g/dl (12.0-16.0); Imm Gran Abs Auto 0.21 X10*3/uL (0.00-0.03); Imm Gran Pct Auto 1.4 % (0.0-0.4); Lymphocytes Absolute Auto 3.0 X10*3/uL (1.2-4.9); Mean Corpuscular HGB Conc 32.8 g/dl (31.0-35.0); Mean Corpuscular Hemoglobin 26.7 pg (27.0-33.0); Mean Corpuscular Volume 81.3 fL (80.0-98.0); NRBC Abs Auto 0.000 X10*3/uL (0.0-0.012); NRBC Pct Auto 0.0 /100WBC (0.0-0.2); Platelet Count 240 X10*3/uL (160-400); Red Blood Count 6.15 X10*6/uL (4.20-5.50); White Blood Count 15.3 X10*3/uL (4.8-10.8)
[2024-11-04] MEDS: Magnesium Sulfate/H2O 2 GM/50 ML PIGGYBACK IV (08:42)
--- NOTE | 2024-11-04 08:52 | PC.NURSE ---
Patient presents to ED c/o right sided chest pain non radiating, rated 10/10. Pain started yesterday around 1900 at rest. Patient also SOB on 3L NC O2 91%, patient uses NC 4L at home when needed. PMH CHF, COPD, DM POC = 272 Unable to obtain IV access, assisting RN able to place 22 in left hand Patient currently running [facility] Plan of care on going
[2024-11-04 09:09] LABS: VBG HCO3 33 mmol/L (22-26); VBG O2 % Saturation 99.0 %
[2024-11-04 09:09] LABS: Venous Blood Gas Refer to POC result
--- OUTSIDE RECORDS SUMMARY | 2024-11-04 09:09 | XMS_ITS | Patient Health Record ---
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 (Z79.891) Active confirmed Plan Of Treatment Pending Test Test Name Order Date COCAINE QUANTITATIVE 05/07/2022 OXYCODONE QUANTITATIVE 05/07/2022 BARBITURATES QUANTITATIVE 05/07/2022 METHADONE QUANTITATIVE 05/07/2022 MDMA (ECSTASY) QUANTITATIVE 05/07/2022 TRAMADOL QUANTITATIVE 05/07/2022 FENTANYL QUANTITATIVE 05/07/2022 BUPRENORPHINE QUANTITATIVE 05/07/2022 BENZODIAZEPINE QUANTITATIVE 05/07/2022 OPIATES QUANTITATIVE 05/07/2022 MUSCLE RELAXANT, QUANTITATIVE 05/07/2022 Amphetamine 05/07/2022 LAB REPORT 05/07/2022 PALERMO DRUG PANEL,UR 05/07/2022 Insurance Providers Payer Name Payer Address Payer Phone Subscriber Number Group Number Insured Name Patient Relationship to Insured Coverage Start Date Coverage End Date [place] [address] [place] [address] [phone] [id number] BRITNEY Keane Spouse - patient is the [...]
--- OUTSIDE RECORDS SUMMARY | 2024-11-04 09:09 | XMS_ITS | Encounter Summary ---
Author Organization [facility] Address [address] [place] [address] Care Team Providers Care Foot Roentgenologist Name Role Phone Dottie Douglass MD Primary Care Provider Encounter Details Date Type Department Care Team (Late st Contact Info) Description 09/25/2017 Scanned Document [facility] Plastic & Reconstructive Surgery [address] [place] [address] Nito Epperson MD [address] [facility] [address] [place] [address] Social History Tobacco Use Types Packs/Day Years [...] on filedocumented in this encounter Care Teams Foot Roentgenologist Relationship Specialty Start Date End Date Dottie Douglass MD PCP - General Internal Medicine 08/04/17 documented as of this encounter
--- OUTSIDE RECORDS SUMMARY | 2024-11-04 09:09 | XMS_ITS | Clinical Summary ---
Author Organization [facility] Address [address] [place] [id number] Care Team Providers Care Manufacturers Service Representative Name Role Phone Dottie Douglass MD Primary Care Provider [phone] Allergies Active Allergy Reactions Criticality Noted Date [...] (four) hours as needed. 5 Active butalbital-aspir [id number]-klbd ine (FioriNAL WITH CODEINE) 91-426-02-30 MG capsule Take 1 capsule by mouth [...] Recently Relevant to Health Maintenance Insurance [facility] [place] [employer] Advance Directives * Full Code (Latest Code Status on File) Date Activated Date Inactivated Comments 03/24/2019 5:36 AM Question Answer Comments Decision Thoroughly Discussed with: Patient * Full Code Date Activated Date Inactivated Comments 03/23/2019 9:33 AM 03/24/2019 5:36 AM Care Teams Manufacturers Service Representative Relationship Specialty Start Date End Date Dottie Douglass MD PCP - General Internal Medicine 08/04/17
--- OUTSIDE RECORDS SUMMARY | 2024-11-04 09:09 | XMS_ITS | Clinical Summary ---
Author Organization [facility] Address [address] [place] [address] Care Team Providers Care Digital Experience Manager Name Role Phone Dottie Douglass MD Primary Care Provider Allergies Active Allergy Reactions Criticality Noted Date [...] T PO BID 0 06/17/19 19 Active TwigmoreT[employer]CH ULTRA CONTROL solution See admin instructions. 0 [...] complete this topic Insurance M[employer]AN Care Teams Digital Experience Manager Relationship Specialty Start Date End Date Dottie Douglass MD [address] [address] PCP - General Internal Medicine 10/13/20
--- OUTSIDE RECORDS SUMMARY | 2024-11-04 09:09 | XMS_ITS | Encounter Summary ---
Author Organization [facility] Address [address] [place] [address] Care Team Providers Care Project Intern Name Role Phone Dottie Douglass MD Primary Care Provider [phone] Encounter Details Date Type Department Care Team (Late st Contact Info) Description 01/02/2018 Scanned Document [facility] Plastic & Reconstructive Surgery [place] [address] [facility] [address] [place] [address] Nito Epperson MD [address] [facility] [address] [place] [address] Social History Tobacco Use Types Packs/Day Years [...] on filedocumented in this encounter Care Teams Project Intern Relationship Specialty Start Date End Date Dottie Douglass MD PCP - General Internal Medicine 08/04/17 documented as of this encounter
[2024-11-04 09:18] LABS: D Dimer High Sensitivity 182 NG/ML
[2024-11-04 09:25] LABS: Alanine Aminotransferase 15 U/L (0-31); Albumin Level 3.6 g/dL (3.5-5.0); Alkaline Phosphatase 83 U/L (39-117); Anion Gap 11 (12-20); Aspartate Amino Transferase 18 U/L (5-31); Blood Urea Nitrogen 21 mg/dL (9-16); Calcium 9.0 mg/dL (8.4-10.2); Carbon Dioxide 33 mmol/L (22-29); Chloride 96 mmol/L (96-108); Creatinine Clr Calc Pharmacy 90.4; Estimated Glomerular Filt Rate > 60; Magnesium 1.7 mg/dL (1.6-2.6); Potassium 4.1 mmol/L (3.3-5.1); Sodium 136 mmol/L (135-145); Total Protein 6.5 g/dL (6.5-8.0)
[2024-11-04 09:28] LABS: Troponin-I High Sensitivity 14.5 ng/L (<3.5-17.0)
[2024-11-04 09:29] LABS: NT Pro B Type Natriuretic Pept 444.0 pg/mL (<300)
--- NOTE | 2024-11-04 10:27 | PM.IMHP ---
History of Present Illness Date of Service: 11/04/24 Attending physician on admission: Cierra Eisenberg Chief Complaint: chest pain This is a 64-year-old female with chronic respiratory failure on 4 L of supplemental oxygen who presents to the emergency department with chest pain. Patient was admitted at [facility] on October 21 for COPD exacerbation and exacerbation of heart failure. She was discharged with a course of oral antibiotics and oral steroids which she reports that she completed and had initially been feeling better. Starting yesterday she reports that her oxygen saturations have been lower than her baseline and she has had to use her oxygen. She does have 4L of oxygen to use as needed. she also reports right-sided chest pain which is worse when she coughs and sweating. Her cough is reportedly unchanged stating that she ?always coughs due to her Sjogren syndrome. She denies any recent sick contacts, she denies fever. In the emergency department she was noted to have leukocytosis of 15.3, elevated CRP and chest x-ray concerning for left-sided pneumonia. Her inital trop was 14.5 and pro-BNP 440 She was treated with IV steroids, IV ceftriaxone and IV doxycycline as well as a dose of fentanyl for her pain. Review of Systems Review of Systems: Yes all other systems are reviewed and are negative Constitutional: Constitutional: Denies chills and Denies fever(s) Cardiovascular: Cardiovascular: Reports chest pain and Denies palpitations Respiratory: Respiratory: Reports cough Gastrointestinal: Gastrointestinal: Denies nausea and Denies vomiting Endocrine: Endocrine: Denies palpitations [facility] Medical History Pulmonary hypertension Tobacco dependence due to cigarettes Diabetes mellitus with hyperglycemia Chronic pain syndrome penitentiary (current) use of opiate analgesic Osteoporosis Sjogrens syndrome Rheumatoid arthritis Osteoarthritis Chronic, continuous use of opioids GERD (gastroesophageal reflux disease) Hx of difficult intubation Smoker COPD (chronic obstructive pulmonary disease) Asthma Polycythemia Boils Eczema Bursitis Disc degeneration Sleep apnea Diabetes Fibromyalgia Family History Mother Polycythemia TIA (transient ischemic attack) Father Heart attack Other No family history of cancer Surgical History History of esophagogastroduodenoscopy (EGD) Hx of tonsillectomy History of surgical removal of pilonidal cyst Hx of plastic surgery Hx of hysterectomy Hx of cholecystectomy Hx of appendectomy History of colonoscopy History of bladder suspension procedure History of removal of cyst Social History Household Members: Spouse Housing: House Are you a primary skin care specialist to a significant other at home: No Do you presently have visiting nurse or other home services: Yes Alcohol intake: never Comment: pt refusing alarms Patient Tobacco Use Status: Current everyday Tobacco user Tobacco use type: Cigarette Cigarette Packs Per Day: 1 Cigarettes Per Day: 20.0 Years Smoked: 51 Smoked in Last 30 Days: Yes e-Cigarette/Vaping Use: Never Used Second Hand Smoke Exposure: No Use of substances other than those prescribed or required for medical reasons: No Advance Directives: Yes Advance Directives on File: Yes Advance Directives Date on File: 12/24/19 Do you have a plan to hurt others: No Plan service: No Current occupational status: retired 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 Cognitive needs: No Hearing needs: No Vision needs: No Meds Allergies Allergy/AdvReac Type Severity Reaction Status Date / Time atorvastatin (From LIPITOR) Allergy Severe Difficulty Verified 11/04/24 07:12 Breathing azithromycin (AZITHROMYCIN) Allergy Severe Difficulty Verified 11/04/24 07:12 Breathing mite-Dermatophagoides Allergy Severe Difficulty Verified 11/04/24 07:12 farinae, vicente (dust mite - Breathing [place]) sumatriptan (From IMITREX) Allergy Severe Difficulty Verified 11/04/24 07:12 Breathing house dust Allergy Mild Unknown Verified 11/04/24 07:12 acetaminophen (From TYLENOL) Allergy Unknown Itching Verified 11/04/24 07:12 adhesive tape (ADHESIVE TAPE) Allergy Unknown Rash Verified 11/04/24 07:12 gentamicin (GENTAMICIN) Allergy Unknown Rash Verified 11/04/24 07:12 adalimumab (From Humira) Allergy Rash Verified 11/04/24 07:12 erythromycin base Allergy Unknown Verified 11/04/24 07:12 haloperidol (From HALDOL) AdvReac Unknown GI Issues Verified 11/04/24 07:12 ketorolac (From TORADOL) AdvReac Unknown Muscle Verified 11/04/24 07:12 cramps prasterone (DHEA) (From DHEA) AdvReac Unknown Cardiac Verified 11/04/24 07:12 issues varenicline (From CHANTIX) AdvReac Unknown Seizure Verified 11/04/24 07:12 ipratropium (From Atrovent) AdvReac Migraine Verified 11/04/24 07:12 Active Medications: Current Medications Acetaminophen (Acetaminophen 325 Mg Tablet) 650 mg PO Q6H PRN PRN Reason: Pain, Mild 1-3,fever,headache Calcium Carbonate (Calcium Carbonate 750 Mg Tab.Chew) 750 mg PO Q4H PRN PRN Reason: Heartburn Dextrose (Dextrose 50 % 25 Gm/50 Ml Syringe) 25 gm IVPUSH Q15M PRN; Protocol PRN Reason: per Hypoglycemia Standing Ord. Enoxaparin Sodium (Enoxaparin Sodium 40 Mg/0.4 Ml Syringe) 40 mg SUBCUT Q24H BETSEY Glucose (Glucose Gel 15 Gm Gel..Gram.) 15 gm PO Q15M PRN; Protocol PRN Reason: per Hypoglycemia Standing Ord. Doxycycline Hyclate 100 mg/ (Sodium Chloride) 250 mls @ 166.67 mls/hr IV ONCE ONE Stop: 11/04/24 10:50 Last Admin: 11/04/24 09:28 Dose: 166.67 mls/hr Insulin Human Lispro (Insulin Lispro 100 Unit/Ml 3 Ml Vial) 0 unit SUBCUT QIDACHS [facility]; Protocol Magnesium Hydroxide (Milk Of Magnesia 30 Ml Oral.Susp) 30 ml PO DAILY PRN PRN Reason: Constipation Melatonin (Melatonin 3 Mg Tablet) 6 mg PO BEDTIME PRN PRN Reason: Insomnia Sodium Chloride (0.9 % Sodium Chloride Flush 3 Ml Syringe) 3 ml IVFLUSH QSHIFT [facility] Home Medications ?Medication ?Instructions ?Recorded ?Confirmed ?Last Taken ?Type aspirin 325 mg tablet 325 mg PO BID@0030,1230 09/27/20 11/04/24 11/03/24 History hydroxychloroquine 200 mg tablet 200 mg PO DAILY@2907/27/24 11/04/24 11/03/24 History losartan 25 mg tablet 25 mg PO DAILY@2907/27/24 11/04/24 11/03/24 History magnesium oxide 400 mg (241.3 mg 400 mg PO DAILY@2907/27/24 11/04/24 11/03/24 History magnesium) tablet metformin 1,000 mg tablet 1,000 mg PO BID@0030,1230 07/27/24 11/04/24 11/03/24 History pramipexole 0.25 mg tablet 1 mg PO DAILY@1230 07/27/24 11/04/24 11/03/24 History pregabalin 75 mg capsule (Lyrica) 75 mg PO DAILY@0030 07/27/24 11/04/24 11/03/24 History albuterol sulfate 90 mcg/actuation 2 puff inhalation Q6H PRN wheezing 09/13/24 11/04/24 10/21/24 00:00 History aerosol inhaler montelukast 10 mg tablet 10 mg PO BEDTIME@0030 09/13/24 11/04/24 11/03/24 History pantoprazole 40 mg tablet,delayed 40 mg PO DAILY@0609/13/24 11/04/24 11/03/24 History release tiotropium 2.5 mcg-olodaterol 2.5 2 puff inhalation DAILY@122909/13/24 11/04/24 11/03/24 History mcg/actuation mist for inhalation (Stiolto Respimat) furosemide 40 mg tablet (Lasix) 40 mg PO DAILY@0 09/28/24 11/04/24 11/03/24 History insulin glargine-yfgn 100 unit/mL 40 unit subcut DAILY 11/04/24 11/04/24 11/03/24 History subcutaneous solution insulin lispro 100 unit/mL 25 unit subcut TIDAC 11/04/24 11/04/24 11/03/24 History subcutaneous pen lidocaine 4 % topical patch 3 patch transdermal DAILY PRN Pain 11/04/24 11/04/24 Unknown History (Lidocaine Pain Relief) nicotine (polacrilex) 4 mg buccal 4 mg buccal Q4H PRN nicotine 11/04/24 11/04/24 Unknown History lozenge cravings nystatin 100,000 unit/mL oral 5 ml PO DAILY 11/04/24 11/04/24 11/03/24 History suspension Physical Exam Vital Signs and Narrative: Vital Signs: Last Vital Signs Temp 98.2 F 11/04/24 08:50 Pulse 95 11/04/24 08:50 Resp 18 11/04/24 08:50 BP 113/55 L 11/04/24 08:50 Pulse Ox 90 L 11/04/24 08:50 O2 Del Method Room Air 11/04/24 08:50 O2 Flow Rate 2 11/04/24 08:50 Oxygen Flow Rate 2 11/04/24 07:11 BMI result Body Mass Index 33.9 Const: General: alert and awake Nutritional Appearance: obese Orientation/consciousness: patient oriented x3 Resp: Other: course breath sounds, no wheeze; coughing during exam Effort & Inspection: Actively coughing Cardio: Rate: regular rate GI: Inspection: No distended Neuro: General: patient oriented x3, moves all extremities and CN's II-XI intact bilaterally Extrem: Other: LLE mild swelling; non-pitting; (same on previous admission ) Results Labs 11/04/24 08:06 11/04/24 08:55 Labs: Laboratory Results - last 24 hr 11/04/24 11/04/24 11/04/24 07:51 08:06 08:55 MCV 81.3 MCH 26.7 L MCHC 32.8 RDW 19.0 H Plt Count 240 MPV 9.4 Immature Gran % (Auto) 1.4 H Neut % (Auto) 71.2 Lymph % (Auto) 19.7 L [place] % (Auto) 5.8 Eos % (Auto) 1.2 Baso % (Auto) 0.7 Lymph # (Auto) 3.0 [place] # (Auto) 0.9 Eos # (Auto) 0.2 Baso # (Auto) 0.1 Abs Immat Gran (auto) 0.21 H Absolute Neuts (auto) 10.9 H Absolute Nucleated RBC 0.000 Nucleated RBC % (auto) 0.0 D-Dimer High Sensitivty 182 VBG pH VBG pCO2 VBG pO2 VBG HCO3 VBG O2 Saturation VBG Base Excess Anion Gap 11 L Estim Creat Clear Calc 90.4 Estimated GFR > 60 POC Glucose 272 H Random Glucose 238 H Lactic Acid 1.9 Calcium 9.0 Magnesium 1.7 Total Bilirubin 0.2 AST 18 ALT 15 Alkaline Phosphatase 83 Troponin I High Sens 14.5 D C-Reactive Protein 8.92 H NT-Pro-B Natriuret Pep 444.0 H Total Protein 6.5 Albumin 3.6 11/04/24 09:04 MCV MCH MCHC RDW Plt Count MPV Immature Gran % (Auto) Neut % (Auto) Lymph % (Auto) [place] % (Auto) Eos % (Auto) Baso % (Auto) Lymph # (Auto) [place] # (Auto) Eos # (Auto) Baso # (Auto) Abs Immat Gran (auto) Absolute Neuts (auto) Absolute Nucleated RBC Nucleated RBC % (auto) D-Dimer High Sensitivty VBG pH 7.45 H VBG pCO2 48 VBG pO2 107 VBG HCO3 33 H VBG O2 Saturation 99.0 VBG Base Excess 8.1 Anion Gap Estim Creat Clear Calc Estimated GFR POC Glucose Random Glucose Lactic Acid Calcium Magnesium Total Bilirubin AST ALT Alkaline Phosphatase Troponin I High Sens C-Reactive Protein NT-Pro-B Natriuret Pep Total Protein Albumin Imaging Radiologist's Impressions: Impressions Chest X-Ray 11/04/24 08:15 IMPRESSION: Opacification of the left lung base, consistent with atelectasis, pneumonia, or pleural fluid. Electronically signed by: Sumanth Spear MD 11/04/2024 08:28 AM EDT RP Assessment and Plan (1) Pneumonia: Qualifiers: Laterality: left Lung location: lower lobe of lung Pneumonia type: due to unspecified organism Qualified Code(s): J18.9 - Pneumonia, unspecified organism Status: Acute Plan This is a 64-year-old female with a history of chronic hypoxic respiratory failure due to COPD, insulin-dependent diabetes, Sjogren's, fibromyalgia, chronic chronic opiate use, celiac disease, ulcerative colitis, RLS, TENISHA, HFpEF who presents to the emergency department with chest pain Pneumonia No sepsis. lactic acid normal will treat with ceftriaxone and doxycycline (allergy to azithromycin) follow blood cultures chest pain Reproducible with palpation. Present on previous admission Initial troponin 14.5, check repeat COPD no wheezing on exam continue baseline inhalers HFpEF pro- BNP on lower side, Does not look overtly fluid overloaded continue baseline lasix low sodium diet Left lower extremity swelling chronic, present on previous admission. Ultrasound negative for DVT 10/21 We will hold off on repeat ultrasound IDDM with hyperglycemia Likely due to steroids check Hba1c hold metformin Continue Lantus SSI, POCs, ADA diet HTN Continue losartan, Norvasc chronic pain/chronic opiate use Continue baseline morphine, oxycodone, lyrica on asa 325 bid ?for pain gerd continue PPI RLS Continue pramipexole Sjogren's continue hydroxychloroquine TENISHA cpap Morbid obesity BMI 33.9 Weight loss encouraged DVT prophylaxis- on full dose asa bid, unclear indication; will avoid further chemoprophylaxis Code status-full code Patient will likely require 2 midnight stay in the hospital for management of acute COPD exacerbation Quality Stroke Does the patient have a stroke diagnosis?: No VTE Prior VTE?: No VTE Risk Level:: Medical - moderate - high VTE Device Contraindication: N/A - Device Ordered VTE Drug Contraindication: N/A - Med Ordered
--- NOTE | 2024-11-04 10:36 | PHA.MEDREC ---
Addendum entered by Sridevi Ann RPh 11/04/24 11:01: reviewed by [facility]. Original Note: Pharmacy Consult ? Medication Reconciliation Pharmacy has completed the medication reconciliation. Spoke to patient to confirm med list. Patient states she is no longer taking Baclofrn 10 mg, Cyclobenzaprin 5 mg,and Mupirocin oint. Patient confirmed Insulin Glargine 40 units daily ,and Insulin Lispro 25 mg TID with meals . Patient last had her medications.
--- NOTE | 2024-11-04 11:10 | MHC.EDTECH ---
I asked the patient if she want to ambulate and she refused. Nurse aware
[2024-11-04] MEDS: Lidocaine 4 % Patch ADH..PATCH 1 PATCH TRANSDERMA (11:20)
[2024-11-04 11:49] LABS: Procalcitonin 0.04 ng/mL
[2024-11-04 11:51] LABS: Glucose, Whole Blood 293 mg/dL (60-115)
[2024-11-04 12:13] LABS: Hemoglobin A1C 312.5110 umol/L; Total Hemoglobin (HGBA1C) 4183.0326 umol/L
[2024-11-04 12:16] LABS: Troponin-I High Sensitivity 12.5 ng/L (<3.5-17.0)
[2024-11-04] MEDS: Insulin Glargine,Hum.rec.anlog 100 UNIT/ML 10 ML VIAL 40 UNIT SUBCUT (12:44)
[2024-11-04] MEDS: Morphine Sulfate ER 30 MG TABLET.ER PO (12:59)
[2024-11-04] MEDS: oxyCODONE HCl Immed Release 5 MG TABLET 10 MG PO ×2 (13:02→18:11)
[2024-11-04] MEDS: 0.9 % Sodium Chloride Flush 3 ML SYRINGE IVFLUSH (16:53)
[2024-11-04 18:00] LABS: Glucose, Whole Blood 281 mg/dL (60-115)
[2024-11-04 21:09] LABS: Glucose, Whole Blood 261 mg/dL (60-115)
[2024-11-05] VITALS (7 sets, daily range): BP systolic 118–139; BP diastolic 61–78; PULSE 76–92; RESP 12–18; TEMP 36.2–36.6; O2SAT 92–94
[2024-11-05] MEDS: oxyCODONE HCl Immed Release 5 MG TABLET 10 MG PO ×4 (00:26→20:09)
[2024-11-05] MEDS: Morphine Sulfate ER 30 MG TABLET.ER PO ×2 (00:27→12:31)
[2024-11-05] MEDS: 0.9 % Sodium Chloride Flush 3 ML SYRINGE IVFLUSH ×3 (00:28→20:16)
[2024-11-05] MEDS: Nicotine 21 MG PATCH.TD24 TRANSDERMA (01:29)
[2024-11-05 05:58] LABS: Hematocrit 46.3 % (37.0-47.0); Hemoglobin 14.6 g/dl (12.0-16.0); Mean Corpuscular HGB Conc 31.5 g/dl (31.0-35.0); Mean Corpuscular Hemoglobin 26.4 pg (27.0-33.0); Mean Corpuscular Volume 83.7 fL (80.0-98.0); NRBC Abs Auto 0.000 X10*3/uL (0.0-0.012); NRBC Pct Auto 0.0 /100WBC (0.0-0.2); Platelet Count 192 X10*3/uL (160-400); Red Blood Count 5.53 X10*6/uL (4.20-5.50); White Blood Count 11.1 X10*3/uL (4.8-10.8)
[2024-11-05 06:22] LABS: Anion Gap 11 (12-20); Blood Urea Nitrogen 17 mg/dL (9-16); Calcium 8.3 mg/dL (8.4-10.2); Carbon Dioxide 35 mmol/L (22-29); Chloride 92 mmol/L (96-108); Creatinine Clr Calc Pharmacy 94.9; Estimated Glomerular Filt Rate > 60; Potassium 3.9 mmol/L (3.3-5.1); Sodium 134 mmol/L (135-145)
[2024-11-05 07:10] LABS: Glucose, Whole Blood 359 mg/dL (60-115)
[2024-11-05] MEDS: Insulin Glargine,Hum.rec.anlog 100 UNIT/ML 10 ML VIAL 40 UNIT SUBCUT (07:40)
[2024-11-05] MEDS: Lidocaine 4 % Patch ADH..PATCH 1 PATCH TRANSDERMA (07:44)
--- NOTE | 2024-11-05 11:14 | MHC.CM.PN ---
Pt. lives with her , PCP confirmed: Dottie Douglass, HCP is on file and confirmed: Jair. her . Pt. ins. will only cover VNA services with a large copay that pt. is not able to pay. She does not use home health services, for DME, she has home O2 from [facility]. Transportation home will be by her . DCP: home, self care, CM to follow for DC needs.
[2024-11-05 11:21] LABS: Glucose, Whole Blood 244 mg/dL (60-115)
[2024-11-05] MEDS: Nystatin Oral Susp 500,000 UNIT/5 ML ORAL.SUSP 500000 UNIT PO (12:03)
[2024-11-05 16:11] LABS: Glucose, Whole Blood 244 mg/dL (60-115)
[2024-11-05 20:48] LABS: Glucose, Whole Blood 221 mg/dL (60-115)
[2024-11-06] VITALS (7 sets, daily range): BP systolic 109–136; BP diastolic 57–81; PULSE 72–83; RESP 16–20; TEMP 36.1–37; O2SAT 93–96
[2024-11-06] MEDS: Morphine Sulfate ER 30 MG TABLET.ER PO ×2 (00:34→11:51)
[2024-11-06] MEDS: oxyCODONE HCl Immed Release 5 MG TABLET 10 MG PO ×4 (02:10→21:29)
[2024-11-06 07:09] LABS: Glucose, Whole Blood 348 mg/dL (60-115)
[2024-11-06] MEDS: Nicotine 21 MG PATCH.TD24 TRANSDERMA (08:22)
[2024-11-06] MEDS: 0.9 % Sodium Chloride Flush 3 ML SYRINGE IVFLUSH ×2 (08:25→16:22)
[2024-11-06] MEDS: Insulin Glargine,Hum.rec.anlog 100 UNIT/ML 10 ML VIAL 40 UNIT SUBCUT (08:25)
[2024-11-06] MEDS: Nystatin Oral Susp 500,000 UNIT/5 ML ORAL.SUSP 500000 UNIT PO (08:26)
--- NOTE | 2024-11-06 10:15 | PM.CNPUL ---
History of Present Illness History of Present Illness Consult date: 11/06/24 Chief complaint: pneumonia Narrative: I was asked to see this patient for pulmonary consultation., as she is readmitted within a few weeks after her recent discharge from the hospital. Main complaint being pain in the left lower chest but she also points to the right lower chest, with cough , and not necessarily with deep inspiratory effort. She does not have any fever or chills. With cough she gets increased shortness of breath. This patient is a 64-year-old female with a past medical history significant for oxygen-dependent COPD, insulin-dependent diabetes, Sjogren's, fibromyalgia, chronic opioid use, celiac disease, ulcerative colitis, Lin's esophagus, restless leg syndrome, TENISHA on CPAP, class 1 obesity, ?left leg lymphedema, and new diagnosis cardiomyopathy, who presented to the ED due to chest pain and shortness of breath worsening over the past 7 days, significantly worsening over the past 24 hours. The patient reports that she has had multiple COPD exacerbations since January. She usually uses oxygen with ambulation now requiring at rest. She describes nonspecific chest pain and a productive cough with clear sputum. She has had left lower extremity edema for the past few months significantly worse than right lower extremity, has had multiple negative DVT studies. . The patient states that after discharge from the hospital 2 weeks ago as long as she was on prednisone she felt better and now that she stopped using the prednisone she is getting worse again. This indicates that she may be becoming steroids dependent. As noted in the past medical history she has Sjogren's syndrome, she has dryness of the eyes dry throat and sometimes difficulty in swallowing. She does admit that at times she has choking episodes and she tries to stick to only soft or so my solid diet. She say is with the cough she is able to bring up some phlegm. At home she also use the vibrator a few times during the day. 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 Osteoporosis Sjogrens syndrome Rheumatoid arthritis Osteoarthritis Chronic, continuous use of opioids GERD (gastroesophageal reflux disease) Hx of difficult intubation Smoker COPD (chronic obstructive pulmonary disease) Asthma Polycythemia Boils Eczema Bursitis Disc degeneration Sleep apnea Diabetes Fibromyalgia Family History Family History Mother Polycythemia TIA (transient ischemic attack) Father Heart attack Other No family history of cancer Surgical History Surgical History History of esophagogastroduodenoscopy (EGD) Hx of tonsillectomy History of surgical removal of pilonidal cyst Hx of plastic surgery Hx of hysterectomy Hx of cholecystectomy Hx of appendectomy History of colonoscopy History of bladder suspension procedure History of removal of cyst Social History Social History Household Members: Spouse Housing: House Are you a primary care center manager to a significant other at home: No Do you presently have visiting nurse or other home services: Yes Alcohol intake: never Comment: pt refusing alarms Patient Tobacco Use Status: Current everyday Tobacco user Tobacco use type: Cigarette Cigarette Packs Per Day: 1 Cigarettes Per Day: 20.0 Years Smoked: 51 Smoked in Last 30 Days: Yes e-Cigarette/Vaping Use: Never Used Second Hand Smoke Exposure: No Use of substances other than those prescribed or required for medical reasons: No Currently Displaying Signs/Symptoms of Drug Intoxication Withdrawal: No Have you been hit, kicked, punched, or otherwise hurt by someone within the past year? If so, by whom?: No Do you feel safe in your current relationship?: Yes Is there a partner from a previous relationship who is making you feel unsafe now?: No Are you made to feel afraid or neglected: No Spiritual Healthcare Practices: no Uatsdin Healthcare Practices: no Advance Directives: Yes Advance Directives on File: Yes Advance Directives Date on File: 12/24/19 Do you have a plan to hurt others: No Plan Patient : No service: No Current occupational status: retired 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 Cognitive needs: No Hearing needs: No Vision needs: No Meds Allergies Allergy/AdvReac Type Severity Reaction Status Date / Time atorvastatin (From LIPITOR) Allergy Severe Difficulty Verified 11/04/24 07:12 Breathing azithromycin (AZITHROMYCIN) Allergy Severe Difficulty Verified 11/04/24 07:12 Breathing mite-Dermatophagoides Allergy Severe Difficulty Verified 11/04/24 07:12 farinae, vicente (dust mite - Breathing [place]) sumatriptan (From IMITREX) Allergy Severe Difficulty Verified 11/04/24 07:12 Breathing house dust Allergy Mild Unknown Verified 11/04/24 07:12 acetaminophen (From TYLENOL) Allergy Unknown Itching Verified 11/04/24 07:12 adhesive tape (ADHESIVE TAPE) Allergy Unknown Rash Verified 11/04/24 07:12 gentamicin (GENTAMICIN) Allergy Unknown Rash Verified 11/04/24 07:12 adalimumab (From Humira) Allergy Rash Verified 11/04/24 07:12 erythromycin base Allergy Unknown Verified 11/04/24 07:12 haloperidol (From HALDOL) AdvReac Unknown GI Issues Verified 11/04/24 07:12 ketorolac (From TORADOL) AdvReac Unknown Muscle Verified 11/04/24 07:12 cramps prasterone (DHEA) (From DHEA) AdvReac Unknown Cardiac Verified 11/04/24 07:12 issues varenicline (From CHANTIX) AdvReac Unknown Seizure Verified 11/04/24 07:12 ipratropium (From Atrovent) AdvReac Migraine Verified 11/04/24 07:12 Active Medications: Current Medications Acetaminophen (Acetaminophen 325 Mg Tablet) 650 mg PO Q6H PRN PRN Reason: Pain, Mild 1-3,fever,headache Acetaminophen/Butalbital/Caffeine (Butalb/Acetamin/Caff 50/325/40 Tablet) 1 tab PO QID PRN PRN Reason: headache Albuterol Sulfate (Albuterol Sulfate (0.083%) 2.5 Mg/3 Ml Vial.Neb) 2.5 mg INHALE Q4H PRN PRN Reason: Shortness of Breath/Wheezing Albuterol/Ipratropium (Albuterol/Iprat 2.5/0.5mg 3 Ml Ampul.Neb) 3 ml INHALE RQ4H WHILE AWAKE PRN PRN Reason: Shortness of Breath/Wheezing Amlodipine Besylate (Amlodipine Besylate 10 Mg Tablet) 10 mg PO DAILY@0030 [facility]; Protocol Last Admin: 11/06/24 00:33 Dose: 10 mg Aspirin (Aspirin 325 Mg Tablet) 325 mg PO BID@0030,1230 [facility] Last Admin: 11/06/24 00:33 Dose: 325 mg Calcium Carbonate (Calcium Carbonate 750 Mg Tab.Chew) 750 mg PO Q4H PRN PRN Reason: Heartburn Ceftriaxone Sodium (Ceftriaxone Sodium 1 Gm Vial) 1 gm IVPUSH Q24H [facility] Last Admin: 11/06/24 08:26 Dose: 1 gm Cyclobenzaprine HCl (Cyclobenzaprine Hcl 5 Mg Tablet) 5 mg PO TID PRN PRN Reason: Cramps Last Admin: 11/05/24 20:38 Dose: 5 mg Dextrose (Dextrose 50 % 25 Gm/50 Ml Syringe) 25 gm IVPUSH Q15M PRN; Protocol PRN Reason: per Hypoglycemia Standing Ord. Furosemide (Furosemide 40 Mg Tablet) 40 mg PO DAILY@1230 [facility]; Protocol Last Admin: 11/05/24 12:30 Dose: 40 mg Glucose (Glucose Gel 15 Gm Gel..Gram.) 15 gm PO Q15M PRN; Protocol PRN Reason: per Hypoglycemia Standing Ord. Guaifenesin/Codeine Phosphate (Guaifen/Codeine Sf 200/20/10ml 10 Ml Liquid) 5 ml PO Q4H PRN PRN Reason: Cough Hydroxychloroquine Sulfate (Hydroxychloroquine Sulfate 200 Mg Tablet) 200 mg PO DAILY@0030 [facility] Last Admin: 11/06/24 00:34 Dose: 200 mg Doxycycline Hyclate 100 mg/ (Sodium Chloride) 250 mls @ 166.67 mls/hr IV Q12H [facility] Last Admin: 11/06/24 08:26 Dose: 166.67 mls/hr Insulin Glargine (Insulin Glargine,Hum.Rec.Anlog 100 Unit/Ml 10 Ml Vial) 40 unit SUBCUT DAILY [facility] Last Admin: 11/06/24 08:25 Dose: 40 unit Insulin Human Lispro (Insulin Lispro 100 Unit/Ml 3 Ml Vial) 0 unit SUBCUT QIDACHS [facility]; Protocol Last Admin: 11/06/24 08:25 Dose: 8 unit Lidocaine (Lidocaine 4 % Patch Adh..Patch) 1 patch TRANSDERMA DAILY [facility]; Protocol Last Admin: 11/05/24 07:44 Dose: 1 patch Lidocaine (Lidocaine 4 % Patch Adh..Patch) 1 patch TRANSDERMA DAILY [facility]; Protocol Losartan Potassium (Losartan Potassium 25 Mg Tablet) 25 mg PO DAILY@0030 [facility]; Protocol Last Admin: 11/06/24 00:34 Dose: 25 mg Magnesium Hydroxide (Milk Of Magnesia 30 Ml Oral.Susp) 30 ml PO DAILY PRN PRN Reason: Constipation Magnesium Oxide (Magnesium Oxide 400 Mg Tablet) 400 mg PO DAILY@003 [facility] Last Admin: 11/06/24 00:34 Dose: 400 mg Melatonin (Melatonin 3 Mg Tablet) 6 mg PO BEDTIME PRN PRN Reason: Insomnia Montelukast Sodium (Montelukast Sodium 10 Mg Tablet) 10 mg PO BEDTIME@003 [facility] Last Admin: 11/06/24 00:34 Dose: 10 mg Morphine Sulfate (Morphine Sulfate Er 30 Mg Tablet.Er) 30 mg PO BID@003,123 [facility] Last Admin: 11/06/24 00:34 Dose: 30 mg Nicotine (Nicotine 21 Mg Patch.Td24) 21 mg TRANSDERMA DAILY [facility] Last Admin: 11/06/24 08:22 Dose: 21 mg Non-Formulary Medication (Tiotropium-Olodaterol [Stiolto Respimat]) 2 puff INHALE DAILY@123 [facility] Nystatin (Nystatin Oral Susp 500,000 Unit/5 Ml Oral.Susp) 500,000 unit PO DAILY [facility]; Protocol Last Admin: 11/06/24 08:26 Dose: 500,000 unit Omeprazole (Omeprazole 20 Mg Capsule.Dr) 20 mg PO DAILY@0630 [facility] Last Admin: 11/06/24 05:07 Dose: 20 mg Oxycodone HCl (Oxycodone Hcl Immed Release 5 Mg Tablet) 10 mg PO QID PRN PRN Reason: Pain, Moderate(Pain Scale 4-6) Last Admin: 11/06/24 08:21 Dose: 10 mg Pramipexole Dihydrochloride (Pramipexole Di-Hcl 1 Mg Tablet) 1 mg PO DAILY@123 [facility] Last Admin: 11/05/24 12:31 Dose: 1 mg Pregabalin (Pregabalin 75 Mg Capsule) 75 mg PO DAILY@003 [facility] Last Admin: 11/06/24 00:34 Dose: 75 mg Sodium Chloride (0.9 % Sodium Chloride Flush 3 Ml Syringe) [facility] Last Admin: 11/06/24 08:25 Dose: 3 ml Home Medications ?Medication ?Instructions ?Recorded ?Confirmed ?Last Taken ?Type aspirin 325 mg tablet 325 mg PO BID@29,122909/27/20 11/04/24 11/03/24 History hydroxychloroquine 200 mg tablet 200 mg PO DAILY@0030 07/27/24 11/04/24 11/03/24 History losartan 25 mg tablet 25 mg PO DAILY@0030 07/27/24 11/04/24 11/03/24 History magnesium oxide 400 mg (241.3 mg 400 mg PO DAILY@0030 07/27/24 11/04/24 11/03/24 History magnesium) tablet metformin 1,000 mg tablet 1,000 mg PO BID@0030,1230 07/27/24 11/04/24 11/03/24 History pramipexole 0.25 mg tablet 1 mg PO DAILY@1230 07/27/24 11/04/24 11/03/24 History pregabalin 75 mg capsule (Lyrica) 75 mg PO DAILY@0030 07/27/24 11/04/24 11/03/24 History albuterol sulfate 90 mcg/actuation 2 puff inhalation Q6H PRN wheezing 09/13/24 11/04/24 10/21/24 00:00 History aerosol inhaler montelukast 10 mg tablet 10 mg PO BEDTIME@0030 09/13/24 11/04/24 11/03/24 History pantoprazole 40 mg tablet,delayed 40 mg PO DAILY@0609/13/24 11/04/24 11/03/24 History release tiotropium 2.5 mcg-olodaterol 2.5 2 puff inhalation DAILY@0 09/13/24 11/04/24 11/03/24 History mcg/actuation mist for inhalation (Stiolto Respimat) furosemide 40 mg tablet (Lasix) 40 mg PO DAILY@1230 09/28/24 11/04/24 11/03/24 History insulin glargine-yfgn 100 unit/mL 40 unit subcut DAILY 11/04/24 11/04/24 11/03/24 History subcutaneous solution insulin lispro 100 unit/mL 25 unit subcut TIDAC 11/04/24 11/04/24 11/03/24 History subcutaneous pen lidocaine 4 % topical patch 3 patch transdermal DAILY PRN Pain 11/04/24 11/04/24 Unknown History (Lidocaine Pain Relief) nicotine (polacrilex) 4 mg buccal 4 mg buccal Q4H PRN nicotine 11/04/24 11/04/24 Unknown History lozenge cravings nystatin 100,000 unit/mL oral 5 ml PO DAILY 11/04/24 11/04/24 11/03/24 History suspension Physical Exam Exam: Exam: General: AO X 3, dyspneic Resp: rhonchi bilateral, accessory muscles used CVS: S1,S2,RRR GI: soft, non tender, non distended Neuro: motor grossly intact, alert Psych: appropriate affect, appropriate insight Vital Signs: Vital Signs: Last Vital Signs Temp 97.4 F 11/06/24 07:14 Pulse 75 11/06/24 07:14 Resp 20 11/06/24 07:14 BP 112/61 11/06/24 07:14 Pulse Ox 93 11/06/24 07:14 O2 Del Method Nasal Cannula 11/06/24 07:14 O2 Flow Rate 2 11/06/24 07:14 Oxygen Flow Rate 2 11/04/24 07:11 BMI result Body Mass Index 34.2 Chest: Other: This patient is alert and orientated, she is sitting upright in the bed at present she is fairly comfortable and has done good conversation with me. Does not seem to be in distress. Chest percussion shows slight dullness over. the left lower lobe Chest auscultation reveals inspiratory wheezes and rhonchi over both lower lobes, and breath sounds are slightly decreased over the left lobe. Results Laboratory Findings 11/05/24 05:29 11/05/24 05:29 Abnormal lab findings: Abnormal Labs 11/04/24 11/04/24 11/04/24 07:51 08:06 08:55 WBC 15.3 H RBC 6.15 H Hgb 16.4 H Hct 50.0 H MCH 26.7 L RDW 19.0 H Immature Gran % (Auto) 1.4 H Lymph % (Auto) 19.7 L Abs Immat Gran (auto) 0.21 H Absolute Neuts (auto) 10.9 H VBG pH VBG HCO3 Sodium Chloride Carbon Dioxide 33 H Anion Gap 11 L BUN 21 H POC Glucose 272 H Random Glucose 238 H Hemoglobin A1c % 9.0 H Calcium C-Reactive Protein 8.92 H NT-Pro-B Natriuret Pep 444.0 H 11/04/24 11/04/24 11/04/24 09:04 11:48 17:53 WBC RBC Hgb Hct MCH RDW Immature Gran % (Auto) Lymph % (Auto) Abs Immat Gran (auto) Absolute Neuts (auto) VBG pH 7.45 H VBG HCO3 33 H Sodium Chloride Carbon Dioxide Anion Gap BUN POC Glucose 293 H 281 H Random Glucose Hemoglobin A1c % Calcium C-Reactive Protein NT-Pro-B Natriuret Pep 11/04/24 11/05/24 11/05/24 20:31 05:29 07:06 WBC 11.1 H RBC 5.53 H Hgb Hct MCH 26.4 L RDW 17.3 H Immature Gran % (Auto) Lymph % (Auto) Abs Immat Gran (auto) Absolute Neuts (auto) VBG pH VBG HCO3 Sodium 134 L Chloride 92 L Carbon Dioxide 35 H Anion Gap 11 L BUN 17 H POC Glucose 261 H 359 H* Random Glucose 361 H* Hemoglobin A1c % Calcium 8.3 L D C-Reactive Protein NT-Pro-B Natriuret Pep 11/05/24 11/05/24 11/05/24 11:18 16:05 20:44 WBC RBC Hgb Hct MCH RDW Immature Gran % (Auto) Lymph % (Auto) Abs Immat Gran (auto) Absolute Neuts (auto) VBG pH VBG HCO3 Sodium Chloride Carbon Dioxide Anion Gap BUN POC Glucose 244 H 244 H 221 H Random Glucose Hemoglobin A1c % Calcium C-Reactive Protein NT-Pro-B Natriuret Pep 11/06/24 06:56 WBC RBC Hgb Hct MCH RDW Immature Gran % (Auto) Lymph % (Auto) Abs Immat Gran (auto) Absolute Neuts (auto) VBG pH VBG HCO3 Sodium Chloride Carbon Dioxide Anion Gap BUN POC Glucose 348 H Random Glucose Hemoglobin A1c % Calcium C-Reactive Protein NT-Pro-B Natriuret Pep Microbiology: Microbiology 11/04/24 08:06 Blood - Venous Blood Culture - Preliminary No growth after 48 hours. 11/04/24 07:55 Blood - Venous Blood Culture - Preliminary No growth after 48 hours. Diagnostic Findings Chest x-ray: report reviewed and image reviewed Assessment and Plan (1) COPD (chronic obstructive pulmonary disease): Qualifiers: COPD type: COPD with acute exacerbation Qualified Code(s): J44.1 - Chronic obstructive pulmonary disease with (acute) exacerbation Status: Acute (2) Atelectasis: Status: Acute (3) TENISHA (obstructive sleep apnea): Status: Acute (4) Cough: Status: Acute Plan I think she has possibility of recurrent micro aspirations. She has ongoing hypoventilation of the left lower lobe secondary to mucus plugging problem. This is aggravated by underlying Sjogren's syndrome/ COPD and smoking. I had a good discussion with the patient. Agree with the current treatment . Chest percussion therapy would help . If she can not tolerate Use CPAP. Therapy at . At nights I think she may need bronchoscopy / bronchial titrate and suctioning especially in the left lower lobe. Continue with Darian dubon, oxygen to keep O2 sat above 92%. Will discuss this patient with for possible bronchoscopy on Friday.. Procedures Date of Service Date of Service: 11/06/24
[2024-11-06] MEDS: Lidocaine 4 % Patch ADH..PATCH 1 PATCH TRANSDERMA (10:35)
[2024-11-06] MEDS: guaiFEN/Codeine SF 200/20/10ML 10 ML LIQUID 5 ML PO ×2 (10:53→20:08)
[2024-11-06 10:55] LABS: Glucose, Whole Blood 283 mg/dL (60-115)
--- NOTE | 2024-11-06 14:49 | HO.PM.IMPN ---
Subjective Subjective Date of Service: 11/05/24 Interval History: Persistent complaints of cough with phlegm production. As a result, the patient experiences chest pain, which had improved with use of prednisone, but has recurred. Review of Systems Review of Systems: Yes all other systems are reviewed and are negative Physical Exam Exam: Exam: General: A&O x3, oriented to time place person and situation, comfortable, no pain Cardiac: S1, S2 auscultated with no S3/4, no MRG. Well perfused. Respiratory: Decreased breath sounds bilaterally at the bases, with crepitations, coarse breath sounds with rhonchi at the mid zones and inspiratory and expiratory wheezing at the upper airways. Crepitations at the bases and rhonchi resolve with coughing. GI/ : No abdominal pain on palpation, no masses or distentions. MSK: Normal ambulation without pain at bony prominences or musculature Neurological: Normal neurological examination on overview, without obvious CN II-XII abnormalities. Vital Signs: Vital Signs: Last Vital Signs Temp 97.6 F 11/06/24 11:06 Pulse 79 11/06/24 11:06 Resp 20 11/06/24 11:06 BP 109/67 11/06/24 11:06 Pulse Ox 94 11/06/24 11:06 O2 Del Method Nasal Cannula 11/06/24 11:06 O2 Flow Rate 2 11/06/24 11:06 Oxygen Flow Rate 2 11/04/24 07:11 BMI result Body Mass Index 34.2 Objective Data Active Medications Acetaminophen (Acetaminophen 325 Mg Tablet) 650 mg PO Q6H PRN PRN Reason: Pain, Mild 1-3,fever,headache Acetaminophen/Butalbital/Caffeine (Butalb/Acetamin/Caff 50/325/40 Tablet) 1 tab PO QID PRN PRN Reason: headache Albuterol Sulfate (Albuterol Sulfate (0.083%) 2.5 Mg/3 Ml Vial.Neb) 2.5 mg INHALE Q4H PRN PRN Reason: Shortness of Breath/Wheezing Albuterol/Ipratropium (Albuterol/Iprat 2.5/0.5mg 3 Ml Ampul.Neb) 3 ml INHALE RQ4H WHILE AWAKE PRN PRN Reason: Shortness of Breath/Wheezing Amlodipine Besylate (Amlodipine Besylate 10 Mg Tablet) 10 mg PO DAILY@0030 [facility]; Protocol Last Admin: 11/06/24 00:33 Dose: 10 mg Documented By: JAVAN Aspirin (Aspirin 325 Mg Tablet) 325 mg PO BID@0030,1230 [facility] Last Admin: 11/06/24 11:51 Dose: 325 mg Documented By: PEYMAN Calcium Carbonate (Calcium Carbonate 750 Mg Tab.Chew) 750 mg PO Q4H PRN PRN Reason: Heartburn Ceftriaxone Sodium (Ceftriaxone Sodium 1 Gm Vial) 1 gm IVPUSH Q24H [facility] Last Admin: 11/06/24 08:26 Dose: 1 gm Documented By: PEYMAN Cyclobenzaprine HCl (Cyclobenzaprine Hcl 5 Mg Tablet) 5 mg PO TID PRN PRN Reason: Cramps Last Admin: 11/05/24 20:38 Dose: 5 mg Documented By: JAVAN Dextrose (Dextrose 50 % 25 Gm/50 Ml Syringe) 25 gm IVPUSH Q15M PRN; Protocol PRN Reason: per Hypoglycemia Standing Ord. Furosemide (Furosemide 40 Mg Tablet) 40 mg PO DAILY@1230 [facility]; Protocol Last Admin: 11/06/24 11:44 Dose: 40 mg Documented By: PEYMAN Glucose (Glucose Gel 15 Gm Gel..Gram.) 15 gm PO Q15M PRN; Protocol PRN Reason: per Hypoglycemia Standing Ord. Guaifenesin/Codeine Phosphate (Guaifen/Codeine Sf 200/20/10ml 10 Ml Liquid) 5 ml PO Q4H PRN PRN Reason: Cough Last Admin: 11/06/24 10:53 Dose: 5 ml Documented By: PEYMAN Hydroxychloroquine Sulfate (Hydroxychloroquine Sulfate 200 Mg Tablet) 200 mg PO DAILY@0030 [facility] Last Admin: 11/06/24 00:34 Dose: 200 mg Documented By: JAVAN Doxycycline Hyclate 100 mg/ (Sodium Chloride) 250 mls @ 166.67 mls/hr IV Q12H [facility] Last Infusion: 11/06/24 10:38 Dose: Infused Documented By: PEYMAN Insulin Glargine (Insulin Glargine,Hum.Rec.Anlog 100 Unit/Ml 10 Ml Vial) 40 unit SUBCUT DAILY [facility] Last Admin: 11/06/24 08:25 Dose: 40 unit Documented By: PEYMAN Insulin Human Lispro (Insulin Lispro 100 Unit/Ml 3 Ml Vial) 0 unit SUBCUT QIDACHS [facility]; Protocol Last Admin: 11/06/24 11:44 Dose: 6 unit Documented By: PEYMAN Lidocaine (Lidocaine 4 % Patch Adh..Patch) 1 patch TRANSDERMA DAILY [facility]; Protocol Last Admin: 11/06/24 10:35 Dose: 1 patch Documented By: PEYMAN Lidocaine (Lidocaine 4 % Patch Adh..Patch) 1 patch TRANSDERMA DAILY [facility]; Protocol Last Admin: 11/06/24 10:37 Dose: Not Given Documented By: PEYMAN Non-Admin Reason: Duplicate Order Losartan Potassium (Losartan Potassium 25 Mg Tablet) 25 mg PO DAILY@0030 [facility]; Protocol Last Admin: 11/06/24 00:34 Dose: 25 mg Documented By: JAVAN Magnesium Hydroxide (Milk Of Magnesia 30 Ml Oral.Susp) 30 ml PO DAILY PRN PRN Reason: Constipation Magnesium Oxide (Magnesium Oxide 400 Mg Tablet) 400 mg PO DAILY@0030 [facility] Last Admin: 11/06/24 00:34 Dose: 400 mg Documented By: JAVAN Melatonin (Melatonin 3 Mg Tablet) 6 mg PO BEDTIME PRN PRN Reason: Insomnia Montelukast Sodium (Montelukast Sodium 10 Mg Tablet) 10 mg PO BEDTIME@0030 [facility] Last Admin: 11/06/24 00:34 Dose: 10 mg Documented By: JAVAN Morphine Sulfate (Morphine Sulfate Er 30 Mg Tablet.Er) 30 mg PO BID@0030,1230 [facility] Last Admin: 11/06/24 11:51 Dose: 30 mg Documented By: PEYMAN Nicotine (Nicotine 21 Mg Patch.Td24) 21 mg TRANSDERMA DAILY [facility] Last Admin: 11/06/24 08:22 Dose: 21 mg Documented By: PEYMAN Non-Formulary Medication (Tiotropium-Olodaterol [Stiolto Respimat]) 2 puff INHALE DAILY@1230 [facility] Nystatin (Nystatin Oral Susp 500,000 Unit/5 Ml Oral.Susp) 500,000 unit PO DAILY [facility]; Protocol Last Admin: 11/06/24 08:26 Dose: 500,000 unit Documented By: PEYMAN Omeprazole (Omeprazole 20 Mg Capsule.Dr) 20 mg PO DAILY@0630 [facility] Last Admin: 11/06/24 05:07 Dose: 20 mg Documented By: JAVAN Oxycodone HCl (Oxycodone Hcl Immed Release 5 Mg Tablet) 10 mg PO QID PRN PRN Reason: Pain, Moderate(Pain Scale 4-6) Last Admin: 11/06/24 14:44 Dose: 10 mg Documented By: PEYMAN Pramipexole Dihydrochloride (Pramipexole Di-Hcl 1 Mg Tablet) 1 mg PO DAILY@1230 [facility] Last Admin: 11/06/24 11:45 Dose: 1 mg Documented By: PEYMAN Pregabalin (Pregabalin 75 Mg Capsule) 75 mg PO DAILY@0030 [facility] Last Admin: 11/06/24 00:34 Dose: 75 mg Documented By: JAVAN Sodium Chloride (0.9 % Sodium Chloride Flush 3 Ml Syringe) 3 ml IVFLUSH QSHIFT [facility] Last Admin: 11/06/24 08:25 Dose: 3 ml Documented By: PEYMAN Labs 11/05/24 05:29 11/05/24 05:29 Labs: Laboratory Results - last 24 hr 11/05/24 11/05/24 11/06/24 16:05 20:44 06:56 POC Glucose 244 H 221 H 348 H 11/06/24 10:48 POC Glucose 283 H Microbiology Microbiology Results: Microbiology 11/04/24 08:06 Blood Culture - Preliminary Blood - Venous No growth after 48 hours. 11/04/24 07:55 Blood Culture - Preliminary Blood - Venous No growth after 48 hours. Assessment and Plan (1) half-way (current) use of opiate analgesic: Status: Acute (2) Congestive heart failure: Status: Acute (3) Dyspnea on exertion: Status: Acute (4) Pulmonary hypertension: Status: Acute (5) Insulin 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 2 diabetes: Status: Acute (6) Polycythemia: Status: Acute (7) Sjogrens syndrome: Status: Acute (8) Rheumatoid arthritis: Status: Acute Plan 64-year-old female with a history of chronic hypoxic respiratory failure due to COPD, insulin-dependent diabetes, Sjogren's, fibromyalgia, chronic chronic opiate use, celiac disease, ulcerative colitis, RLS, TENISHA, HFpEF who presents to the emergency department with chest pain 2/2 recurrent costochondritis in the setting of persistent chronic cough on superimposed COPD (with acute exacerbation) & superimposed pneumonia. Acute hypoxic respiratory failure Chronic hypoxic hypercarbic respiratory failure-COPD, Sjogren's/RA chronic O2 Pneumonia No sepsis. lactic acid normal follow blood cultures PLAN - doxycycline - ceftriaxone 1 g IV q.o.d. - prednisone 40 mg OD p.o. - DuoNebs as needed Chest pain Costochondritis Chronic cough Reproducible with palpation. Present on previous admission PLAN - lidocaine patch - guaifenesin/codeine - consider use of gabapentin/pregabalin for persistent pain - topical diclofenac - pulmonary rehabilitation HFpEF pro- BNP on lower side, Does not look overtly fluid overloaded continue baseline lasix low sodium diet Left lower extremity swelling chronic, present on previous admission. Ultrasound negative for DVT 10/21 We will hold off on repeat ultrasound IDDM with hyperglycemia Likely due to steroids check Hba1c hold metformin Continue Lantus SSI, POCs, ADA diet HTN Continue losartan, Norvasc chronic pain/chronic opiate use Continue baseline morphine, oxycodone, lyrica on asa 325 bid ?for pain gerd continue PPI RLS Continue pramipexole Sjogren's continue hydroxychloroquine TENISHA cpap Morbid obesity BMI 33.9 Weight loss encouraged QUALITY METRICS - VTE: Low risk, encourage mobility - CODE STATUS: Full code - DIET: Cardiac Total time managing care of this patient today: 45 minutes. Quality Stroke Does the patient have a stroke diagnosis?: No VTE Prior VTE?: No VTE Risk Level:: Medical - moderate - high VTE Device Contraindication: N/A - Device Ordered VTE Drug Contraindication: N/A - Med Ordered
--- NOTE | 2024-11-06 15:06 | HO.PM.IMPN ---
Subjective Subjective Date of Service: 11/06/24 Interval History: Improved compared to yesterday. Patient has no new issues to report, other than persistent cough Cough reliably reaches anterior thoracic pain. No fevers chills or rigors. Review of Systems Review of Systems: Yes all other systems are reviewed and are negative Physical Exam Exam: Exam: General: A&O x3, oriented to time place person and situation, comfortable, no pain Cardiac: S1, S2 auscultated with no S3/4, no MRG. Well perfused. Respiratory: Decreased breath sounds bilaterally at the bases, with crepitations, coarse breath sounds with rhonchi at the mid zones and inspiratory and expiratory wheezing at the upper airways. Crepitations at the bases and rhonchi resolve with coughing. GI/ : No abdominal pain on palpation, no masses or distentions. MSK: Normal ambulation without pain at bony prominences or musculature Neurological: Normal neurological examination on overview, without obvious CN II-XII abnormalities. Vital Signs: Vital Signs: Last Vital Signs Temp 97.6 F 11/06/24 11:06 Pulse 79 11/06/24 11:06 Resp 20 11/06/24 11:06 BP 109/67 11/06/24 11:06 Pulse Ox 94 11/06/24 11:06 O2 Del Method Nasal Cannula 11/06/24 11:06 O2 Flow Rate 2 11/06/24 11:06 Oxygen Flow Rate 2 11/04/24 07:11 BMI result Body Mass Index 34.2 Objective Data Active Medications Acetaminophen (Acetaminophen 325 Mg Tablet) 650 mg PO Q6H PRN PRN Reason: Pain, Mild 1-3,fever,headache Acetaminophen/Butalbital/Caffeine (Butalb/Acetamin/Caff 50/325/40 Tablet) 1 tab PO QID PRN PRN Reason: headache Albuterol Sulfate (Albuterol Sulfate (0.083%) 2.5 Mg/3 Ml Vial.Neb) 2.5 mg INHALE Q4H PRN PRN Reason: Shortness of Breath/Wheezing Albuterol/Ipratropium (Albuterol/Iprat 2.5/0.5mg 3 Ml Ampul.Neb) 3 ml INHALE RQ4H WHILE AWAKE PRN PRN Reason: Shortness of Breath/Wheezing Amlodipine Besylate (Amlodipine Besylate 10 Mg Tablet) 10 mg PO DAILY@0030 [facility]; Protocol Last Admin: 11/06/24 00:33 Dose: 10 mg Documented By: JAVAN Aspirin (Aspirin 325 Mg Tablet) 325 mg PO BID@0030,1230 [facility] Last Admin: 11/06/24 11:51 Dose: 325 mg Documented By: PEYMAN Calcium Carbonate (Calcium Carbonate 750 Mg Tab.Chew) 750 mg PO Q4H PRN PRN Reason: Heartburn Ceftriaxone Sodium (Ceftriaxone Sodium 1 Gm Vial) 1 gm IVPUSH Q24H [facility] Last Admin: 11/06/24 08:26 Dose: 1 gm Documented By: PEYMAN Cyclobenzaprine HCl (Cyclobenzaprine Hcl 5 Mg Tablet) 5 mg PO TID PRN PRN Reason: Cramps Last Admin: 11/05/24 20:38 Dose: 5 mg Documented By: JAVAN Dextrose (Dextrose 50 % 25 Gm/50 Ml Syringe) 25 gm IVPUSH Q15M PRN; Protocol PRN Reason: per Hypoglycemia Standing Ord. Furosemide (Furosemide 40 Mg Tablet) 40 mg PO DAILY@1230 [facility]; Protocol Last Admin: 11/06/24 11:44 Dose: 40 mg Documented By: PEYMAN Glucose (Glucose Gel 15 Gm Gel..Gram.) 15 gm PO Q15M PRN; Protocol PRN Reason: per Hypoglycemia Standing Ord. Guaifenesin/Codeine Phosphate (Guaifen/Codeine Sf 200/20/10ml 10 Ml Liquid) 5 ml PO Q4H PRN PRN Reason: Cough Last Admin: 11/06/24 10:53 Dose: 5 ml Documented By: PEYMAN Hydroxychloroquine Sulfate (Hydroxychloroquine Sulfate 200 Mg Tablet) 200 mg PO DAILY@0030 [facility] Last Admin: 11/06/24 00:34 Dose: 200 mg Documented By: JAVAN Doxycycline Hyclate 100 mg/ (Sodium Chloride) 250 mls @ 166.67 mls/hr IV Q12H [facility] Last Infusion: 11/06/24 10:38 Dose: Infused Documented By: PEYMAN Insulin Glargine (Insulin Glargine,Hum.Rec.Anlog 100 Unit/Ml 10 Ml Vial) 40 unit SUBCUT DAILY [facility] Last Admin: 11/06/24 08:25 Dose: 40 unit Documented By: PEYMAN Insulin Human Lispro (Insulin Lispro 100 Unit/Ml 3 Ml Vial) 0 unit SUBCUT QIDACHS [facility]; Protocol Last Admin: 11/06/24 11:44 Dose: 6 unit Documented By: PEYMAN Lidocaine (Lidocaine 4 % Patch Adh..Patch) 1 patch TRANSDERMA DAILY [facility]; Protocol Last Admin: 11/06/24 10:35 Dose: 1 patch Documented By: PEYMAN Lidocaine (Lidocaine 4 % Patch Adh..Patch) 1 patch TRANSDERMA DAILY [facility]; Protocol Last Admin: 11/06/24 10:37 Dose: Not Given Documented By: PEYMAN Non-Admin Reason: Duplicate Order Losartan Potassium (Losartan Potassium 25 Mg Tablet) 25 mg PO DAILY@0030 [facility]; Protocol Last Admin: 11/06/24 00:34 Dose: 25 mg Documented By: JAVAN Magnesium Hydroxide (Milk Of Magnesia 30 Ml Oral.Susp) 30 ml PO DAILY PRN PRN Reason: Constipation Magnesium Oxide (Magnesium Oxide 400 Mg Tablet) 400 mg PO DAILY@0030 [facility] Last Admin: 11/06/24 00:34 Dose: 400 mg Documented By: JAVAN Melatonin (Melatonin 3 Mg Tablet) 6 mg PO BEDTIME PRN PRN Reason: Insomnia Montelukast Sodium (Montelukast Sodium 10 Mg Tablet) 10 mg PO BEDTIME@0030 [facility] Last Admin: 11/06/24 00:34 Dose: 10 mg Documented By: JAVAN Morphine Sulfate (Morphine Sulfate Er 30 Mg Tablet.Er) 30 mg PO BID@0030,1230 [facility] Last Admin: 11/06/24 11:51 Dose: 30 mg Documented By: PEYMAN Nicotine (Nicotine 21 Mg Patch.Td24) 21 mg TRANSDERMA DAILY [facility] Last Admin: 11/06/24 08:22 Dose: 21 mg Documented By: PEYMAN Non-Formulary Medication (Tiotropium-Olodaterol [Stiolto Respimat]) 2 puff INHALE DAILY@1230 [facility] Nystatin (Nystatin Oral Susp 500,000 Unit/5 Ml Oral.Susp) 500,000 unit PO DAILY [facility]; Protocol Last Admin: 11/06/24 08:26 Dose: 500,000 unit Documented By: PEYMAN Omeprazole (Omeprazole 20 Mg Capsule.Dr) 20 mg PO DAILY@0630 [facility] Last Admin: 11/06/24 05:07 Dose: 20 mg Documented By: JAVAN Oxycodone HCl (Oxycodone Hcl Immed Release 5 Mg Tablet) 10 mg PO QID PRN PRN Reason: Pain, Moderate(Pain Scale 4-6) Last Admin: 11/06/24 14:44 Dose: 10 mg Documented By: PEYMAN Pramipexole Dihydrochloride (Pramipexole Di-Hcl 1 Mg Tablet) 1 mg PO DAILY@1230 [facility] Last Admin: 11/06/24 11:45 Dose: 1 mg Documented By: PEYMAN Prednisone (Prednisone 20 Mg Tablet) 40 mg PO DAILY [facility] Pregabalin (Pregabalin 75 Mg Capsule) 75 mg PO DAILY@0030 [facility] Last Admin: 11/06/24 00:34 Dose: 75 mg Documented By: JAVAN Sodium Chloride (0.9 % Sodium Chloride Flush 3 Ml Syringe) 3 ml IVFLUSH QSHIFT [facility] Last Admin: 11/06/24 08:25 Dose: 3 ml Documented By: PEYMAN Labs 11/05/24 05:29 11/05/24 05:29 Labs: Laboratory Results - last 24 hr 11/05/24 11/05/24 11/06/24 16:05 20:44 06:56 POC Glucose 244 H 221 H 348 H 11/06/24 10:48 POC Glucose 283 H Microbiology Microbiology Results: Microbiology 11/04/24 08:06 Blood Culture - Preliminary Blood - Venous No growth after 48 hours. 11/04/24 07:55 Blood Culture - Preliminary Blood - Venous No growth after 48 hours. 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: Status: Acute (2) Pulmonary hypertension: Status: Acute (3) Congestive heart failure: Status: Acute (4) Insulin 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 2 diabetes: Status: Acute (5) Polycythemia: Status: Acute (6) Lymphoproliferative disorder: Status: Acute (7) Rheumatoid arthritis: Status: Acute (8) Sjogrens syndrome: Status: Acute (9) Supplemental oxygen dependent: Status: Acute (10) Emphysema lung: Status: Acute (11) Pneumonia: Status: Acute (12) Atelectasis: Status: Acute (13) COPD (chronic obstructive pulmonary disease): Status: Acute Plan 64-year-old female with a history of chronic hypoxic respiratory failure due to COPD, insulin-dependent diabetes, Sjogren's, fibromyalgia, chronic chronic opiate use, celiac disease, ulcerative colitis, RLS, TENISHA, HFpEF who presents to the emergency department with chest pain 2/2 recurrent costochondritis in the setting of persistent chronic cough on superimposed COPD (with acute exacerbation) & superimposed pneumonia. Acute hypoxic respiratory failure Chronic hypoxic hypercarbic respiratory failure-COPD, Sjogren's/RA chronic O2 Pneumonia No sepsis. lactic acid normal follow blood cultures PLAN - doxycycline - ceftriaxone 1 g IV q.o.d. - prednisone 40 mg OD p.o. - DuoNebs as needed Chest pain Costochondritis Chronic cough Reproducible with palpation. Present on previous admission PLAN - lidocaine patch - guaifenesin/codeine - consider use of gabapentin/pregabalin for persistent pain - topical diclofenac - pulmonary rehabilitation HFpEF pro- BNP on lower side, Does not look overtly fluid overloaded continue baseline lasix low sodium diet Left lower extremity swelling chronic, present on previous admission. Ultrasound negative for DVT 10/21 We will hold off on repeat ultrasound IDDM with hyperglycemia Likely due to steroids check Hba1c hold metformin Continue Lantus SSI, POCs, ADA diet HTN Continue losartan, Norvasc chronic pain/chronic opiate use Continue baseline morphine, oxycodone, lyrica on asa 325 bid ?for pain gerd continue PPI RLS Continue pramipexole Sjogren's continue hydroxychloroquine TENISHA cpap Morbid obesity BMI 33.9 Weight loss encouraged QUALITY METRICS - VTE: Low risk, encourage mobility - CODE STATUS: Full code - DIET: Cardiac Quality Stroke Does the patient have a stroke diagnosis?: No VTE Prior VTE?: No VTE Risk Level:: Medical - moderate - high VTE Device Contraindication: N/A - Device Ordered VTE Drug Contraindication: N/A - Med Ordered
[2024-11-06 16:35] LABS: Glucose, Whole Blood 215 mg/dL (60-115)
[2024-11-06 20:57] LABS: Glucose, Whole Blood 416 mg/dL (60-115)
[2024-11-06] MEDS: Insulin Glargine,Hum.rec.anlog 100 UNIT/ML 10 ML VIAL 42 UNIT SUBCUT (21:28)
[2024-11-06 23:47] LABS: Glucose, Whole Blood 408 mg/dL (60-115)
[2024-11-07] VITALS (9 sets, daily range): BP systolic 123–145; BP diastolic 57–90; PULSE 66–80; RESP 16–20; TEMP 36–36.4; O2SAT 93–98
[2024-11-07] MEDS: Morphine Sulfate ER 30 MG TABLET.ER PO ×2 (00:31→12:42)
[2024-11-07] MEDS: 0.9 % Sodium Chloride Flush 3 ML SYRINGE IVFLUSH ×4 (00:32→23:55)
[2024-11-07 02:25] LABS: Glucose, Whole Blood 407 mg/dL (60-115)
[2024-11-07] MEDS: oxyCODONE HCl Immed Release 5 MG TABLET 10 MG PO ×4 (04:41→22:51)
--- NOTE | 2024-11-07 04:53 | PC.NURSE ---
Addendum entered by Heidy Arguelles RN 11/07/24 06:41: POC at [id number], Dr. Leal was made aware, Lispro 8 units SC given, pt was seen eating snack bar prior to giving meds and claimed its all sugar free. Original Note: Pt transferred from [place] at 2030, alert and oriented, some forgetfulness , fogginess as pt claimed, on chronic shoulder, low back pain and left leg also with right sided chest pain, toelrating O2 at 2L/min via NC, falls precaution instructed, pt refused to have the bed alarm on, doesn't call for assistance transfer and herself to commode as needed. Bedtime [id number], Dr. Leal was made aware, Lispro 10 units and Lantus 42 units given and also ordered AC Lispro, to repeat POC after 2hr, pt educated. At 2330 repeat [id number], Dr. Leal made aware, NS 250 ml bolus given, Reg insulin 8 untis IVP given, to check POC after 2 hr. At 0230 POC= 407, reported back to Dr. Leal, no addional insulin ordered, to rechecked POC at 0630. At 0300, pt called for pain med, O xycodone PRN is previously ordered QID, Dr. Leal said its ok to give, when revisited pt to give Oxy, pt was asleep.
[2024-11-07 06:19] LABS: Glucose, Whole Blood 301 mg/dL (60-115)
[2024-11-07 07:39] LABS: Glucose, Whole Blood 315 mg/dL (60-115)
[2024-11-07] MEDS: Nystatin Oral Susp 500,000 UNIT/5 ML ORAL.SUSP 500000 UNIT PO (07:49)
[2024-11-07] MEDS: Lidocaine 4 % Patch ADH..PATCH 1 PATCH TRANSDERMA (07:50)
[2024-11-07] MEDS: Nicotine 21 MG PATCH.TD24 TRANSDERMA (07:50)
[2024-11-07 11:17] LABS: Glucose, Whole Blood 235 mg/dL (60-115)
--- NOTE | 2024-11-07 13:35 | P.PNIM_ITS ---
Subjective Subjective Date of Service: 11/07/24 Interval History: Feeling better Chronic cough and SOB around baseline Right lower jaw pain Has not been up and out of bed much Review of Systems Review of Systems: Yes all other systems are reviewed and are negative Physical Exam 2 Exam: Exam: General: AOx3, no acute distress ENT: poor dentition; right lower jaw tenderness Resp: CTA bilaterally; no wheezing, rales, or rhonchi noted CVS: S1, S2, RRR GI: +BS, NT, no distention Skin: Warm, dry Neuro: Cranial nerves II-XII grossly intact bilaterally. Motor grossly intact bilaterally Extremities: No edema Psych: Appropriate affect Vital Signs: Vital Signs: Last Vital Signs Temp 96.9 F 11/07/24 11:12 Pulse 74 11/07/24 11:12 Resp 18 11/07/24 11:12 BP 145/82 H 11/07/24 11:12 Pulse Ox 95 11/07/24 11:12 O2 Del Method Nasal Cannula 11/07/24 11:12 O2 Flow Rate 2 11/07/24 11:12 Oxygen Flow Rate 2 11/04/24 07:11 BMI result Body Mass Index 34.2 Objective Data Active Medications Acetaminophen (Acetaminophen 325 Mg Tablet) 650 mg PO Q6H PRN PRN Reason: Pain, Mild 1-3,fever,headache Acetaminophen/Butalbital/Caffeine (Butalb/Acetamin/Caff 50/325/40 Tablet) 1 tab PO QID PRN PRN Reason: headache Albuterol Sulfate (Albuterol Sulfate (0.083%) 2.5 Mg/3 Ml Vial.Neb) 2.5 mg INHALE Q4H PRN PRN Reason: Shortness of Breath/Wheezing Albuterol/Ipratropium (Albuterol/Iprat 2.5/0.5mg 3 Ml Ampul.Neb) 3 ml INHALE RQ6H WHILE AWAKE [facility] Amlodipine Besylate (Amlodipine Besylate 10 Mg Tablet) 10 mg PO DAILY@0030 [facility]; Protocol Last Admin: 11/07/24 00:31 Dose: 10 mg Documented By: BON Aspirin (Aspirin 325 Mg Tablet) 325 mg PO BID@0030,1230 [facility] Last Admin: 11/07/24 12:43 Dose: 325 mg Documented By: ELIZABETH Calcium Carbonate (Calcium Carbonate 750 Mg Tab.Chew) 750 mg PO Q4H PRN PRN Reason: Heartburn Ceftriaxone Sodium (Ceftriaxone Sodium 1 Gm Vial) 1 gm IVPUSH Q24H [facility] Last Admin: 11/07/24 07:50 Dose: 1 gm Documented By: ELIZABETH Cyclobenzaprine HCl (Cyclobenzaprine Hcl 5 Mg Tablet) 5 mg PO TID PRN PRN Reason: Cramps Last Admin: 11/07/24 13:04 Dose: 5 mg Documented By: ELIZABETH Dextrose (Dextrose 50 % 25 Gm/50 Ml Syringe) 25 gm IVPUSH Q15M PRN; Protocol PRN Reason: per Hypoglycemia Standing Ord. Furosemide (Furosemide 40 Mg Tablet) 40 mg PO DAILY@1230 [facility]; Protocol Last Admin: 11/07/24 12:43 Dose: 40 mg Documented By: ELIZABETH Glucose (Glucose Gel 15 Gm Gel..Gram.) 15 gm PO Q15M PRN; Protocol PRN Reason: per Hypoglycemia Standing Ord. Guaifenesin/Codeine Phosphate (Guaifen/Codeine Sf 200/20/10ml 10 Ml Liquid) 5 ml PO Q4H PRN PRN Reason: Cough Last Admin: 11/06/24 20:08 Dose: 5 ml Documented By: JAVAN Hydroxychloroquine Sulfate (Hydroxychloroquine Sulfate 200 Mg Tablet) 200 mg PO DAILY@0030 [facility] Last Admin: 11/07/24 00:31 Dose: 200 mg Documented By: BON Doxycycline Hyclate 100 mg/ (Sodium Chloride) 250 mls @ 166.67 mls/hr IV Q12H [facility] Last Infusion: 11/07/24 09:45 Dose: Infused Documented By: NOREEN Insulin Glargine (Insulin Glargine,Hum.Rec.Anlog 100 Unit/Ml 10 Ml Vial) 45 unit SUBCUT BEDTIME [facility] Insulin Human Lispro (Insulin Lispro 100 Unit/Ml 3 Ml Vial) 8 unit SUBCUT QIDAS [facility] Last Admin: 11/07/24 11:51 Dose: 8 unit Documented By: ELIZABETH Insulin Human Lispro (Insulin Lispro 100 Unit/Ml 3 Ml Vial) 0 unit SUBCUT QIDACHS [facility]; Protocol Last Admin: 11/07/24 11:51 Dose: 6 unit Documented By: ELIZABETH Lidocaine (Lidocaine 4 % Patch Adh..Patch) 1 patch TRANSDERMA DAILY [facility]; Protocol Last Admin: 11/07/24 07:50 Dose: 1 patch Documented By: ELIZABETH Lidocaine (Lidocaine 4 % Patch Adh..Patch) 1 patch TRANSDERMA DAILY [facility]; Protocol Last Admin: 11/07/24 10:45 Dose: Not Given Documented By: ELIZABETH Non-Admin Reason: pt request only 1 Losartan Potassium (Losartan Potassium 25 Mg Tablet) 25 mg PO DAILY@003 [facility]; Protocol Last Admin: 11/07/24 00:31 Dose: 25 mg Documented By: BON Magnesium Hydroxide (Milk Of Magnesia 30 Ml Oral.Susp) 30 ml PO DAILY PRN PRN Reason: Constipation Magnesium Oxide (Magnesium Oxide 400 Mg Tablet) 400 mg PO DAILY@003 [facility] Last Admin: 11/07/24 00:31 Dose: 400 mg Documented By: BON Melatonin (Melatonin 3 Mg Tablet) 6 mg PO BEDTIME PRN PRN Reason: Insomnia Montelukast Sodium (Montelukast Sodium 10 Mg Tablet) 10 mg PO BEDTIME@003 [facility] Last Admin: 11/07/24 00:31 Dose: 10 mg Documented By: BON Morphine Sulfate (Morphine Sulfate Er 30 Mg Tablet.Er) 30 mg PO BID@29,1229 [facility] Last Admin: 11/07/24 12:42 Dose: 30 mg Documented By: ELIZABETH Nicotine (Nicotine 21 Mg Patch.Td24) 21 mg TRANSDERMA DAILY [facility] Last Admin: 11/07/24 07:50 Dose: 21 mg Documented By: ELIZABETH Non-Formulary Medication (Tiotropium-Olodaterol [Stiolto Respimat]) 2 puff INHALE DAILY@1230 [facility] Nystatin (Nystatin Oral Susp 500,000 Unit/5 Ml Oral.Susp) 500,000 unit PO DAILY [facility]; Protocol Last Admin: 11/07/24 07:49 Dose: 500,000 unit Documented By: ELIZABETH Nystatin (Nystatin Powder 15 Gm Bottle) 1 appl TOPICAL BID [facility]; Protocol Last Admin: 11/07/24 08:05 Dose: 1 appl Documented By: ELIZABETH Omeprazole (Omeprazole 20 Mg Capsule.Dr) 20 mg PO DAILY@0630 [facility] Last Admin: 11/07/24 06:15 Dose: 20 mg Documented By: BON Ondansetron HCl (Ondansetron Hcl 4 Mg/2 Ml Vial) 4 mg IVPUSH Q8H PRN PRN Reason: Nausea and Vomiting Oxycodone HCl (Oxycodone Hcl Immed Release 5 Mg Tablet) 10 mg PO QID PRN PRN Reason: Pain, Moderate(Pain Scale 4-6) Last Admin: 11/07/24 10:58 Dose: 10 mg Documented By: ELIZABETH Pramipexole Dihydrochloride (Pramipexole Di-Hcl 1 Mg Tablet) 1 mg PO DAILY@1230 [facility] Last Admin: 11/07/24 12:44 Dose: 1 mg Documented By: ELIZABETH Prednisone (Prednisone 20 Mg Tablet) 40 mg PO DAILY [facility] Last Admin: 11/07/24 07:49 Dose: 40 mg Documented By: ELIZABETH Pregabalin (Pregabalin 75 Mg Capsule) 75 mg PO DAILY@0030 [facility] Last Admin: 11/07/24 00:30 Dose: 75 mg Documented By: BON Sodium Chloride (0.9 % Sodium Chloride Flush 3 Ml Syringe) 3 ml IVFLUSH QSHIFT [facility] Last Admin: 11/07/24 07:53 Dose: 3 ml Documented By: ELIZABETH Labs 11/05/24 05:29 11/05/24 05:29 Labs: Laboratory Results - last 24 hr 11/06/24 11/06/24 11/06/24 16:26 20:53 23:40 POC Glucose 215 H 416 H* 408 H* 11/07/24 11/07/24 11/07/24 02:21 06:12 07:33 POC Glucose 407 H* 301 H 315 H 11/07/24 11:12 POC Glucose 235 H Microbiology Microbiology Results: Microbiology 11/04/24 08:06 Blood Culture - Preliminary Blood - Venous No growth after 48 hours. 11/04/24 07:55 Blood Culture - Preliminary Blood - Venous No growth after 48 hours. Assessment and Plan (1) Pneumonia: Status: Acute Plan 64-year-old female with a history of chronic hypoxic respiratory failure due to COPD, insulin-dependent diabetes, Sjogren's, fibromyalgia, chronic chronic opiate use, celiac disease, ulcerative colitis, RLS, TENISHA, HFpEF who presents to the emergency department with chest pain 2/2 recurrent costochondritis in the setting of persistent chronic cough on superimposed COPD (with acute exacerbation) & superimposed pneumonia. Acute on chronic hypoxic hypercarbic respiratory failure with superimposed pneumonia No sepsis. lactic acid normal Blood cultures negative after 48 hours PLAN - doxycycline, ceftriaxone - prednisone 40 mg OD p.o. - DuoNebs as needed Question of dental infection Pt complaining of left lower jaw tooth infection with the past few weeks Pt being covered by antibiotics above; discharge on Augmentin Follow up with dentist outpatient Atypical Chest pain Reproducible with palpation. Present on previous admission. Likely secondary to costochondritis from chronic cough PLAN - lidocaine patch - guaifenesin/codeine - consider use of gabapentin/pregabalin for persistent pain - topical diclofenac - pulmonary rehabilitation HFpEF pro- BNP on lower side, Does not look overtly fluid overloaded continue baseline lasix low sodium diet Left lower extremity swelling chronic, present on previous admission. Ultrasound negative for DVT 10/21 We will hold off on repeat ultrasound No significant edeam today IDDM with hyperglycemia Likely due to steroids Hba1c 9.0 hold metformin Continue Lantus SSI, POCs, ADA diet HTN Continue losartan, Norvasc chronic pain/chronic opiate use Continue baseline morphine, oxycodone, lyrica on asa 325 bid ?for pain gerd continue PPI RLS Continue pramipexole Sjogren's continue hydroxychloroquine TENISHA cpap at nighttime Obesity class II BMI 33.9 Weight loss encouraged Quality Stroke Does the patient have a stroke diagnosis?: No VTE Prior VTE?: No VTE Risk Level:: Medical - moderate - high VTE Device Contraindication: N/A - Device Ordered VTE Drug Contraindication: N/A - Med Ordered
[2024-11-07 15:20] LABS: Glucose, Whole Blood 241 mg/dL (60-115)
--- NOTE | 2024-11-07 16:04 | PC.NURSE ---
Pt refusing bed and chair alarm despite being high fall risk, education provided on fall risk interventions.
[2024-11-07] MEDS: Albuterol/Iprat 2.5/0.5MG 3 ML AMPUL.NEB INHALE (16:11)
[2024-11-07 16:34] LABS: Glucose, Whole Blood 247 mg/dL (60-115)
[2024-11-07] MEDS: CAFFEINE PO (17:53)
[2024-11-07] MEDS: CODEINE PO (17:53)
[2024-11-07] MEDS: ASPIRIN PO (17:53)
[2024-11-07] MEDS: BUTALBITAL PO (17:53)
[2024-11-07 20:20] LABS: Glucose, Whole Blood 279 mg/dL (60-115)
[2024-11-07] MEDS: Insulin Glargine,Hum.rec.anlog 100 UNIT/ML 10 ML VIAL 45 UNIT SUBCUT (20:43)
[2024-11-07] MEDS: Albuterol Sulfate (0.083%) 2.5 MG/3 ML VIAL.NEB INHALE (21:40)
[2024-11-08] VITALS (10 sets, daily range): BP systolic 122–155; BP diastolic 59–88; PULSE 72–82; RESP 16–20; TEMP 36.1–36.4; O2SAT 88–99
[2024-11-08] MEDS: Morphine Sulfate ER 30 MG TABLET.ER PO ×2 (00:09→11:54)
[2024-11-08] MEDS: Nicotine 21 MG PATCH.TD24 TRANSDERMA (03:25)
[2024-11-08] MEDS: oxyCODONE HCl Immed Release 5 MG TABLET 10 MG PO ×3 (06:00→17:49)
--- NOTE | 2024-11-08 07:00 | CA_ITS ---
Transthoracic Echocardiogram Patient (Last, First, Middle): Lashon Parra, Gender: Female Date of : 1960 Age: 64 Procedure Date: 11/08/2024 Procedure Type: Transthoracic Echocardiogram Location: S3E Height: 162.56 cm Weight: 90.27 kg BSA: 1.95 m2 Heart Rate: 78 bpm BP: 123 / 88 mmHg Medical Assistant: ANNIKA Referring MD: Per TRAYLOR Symptoms: Elevated Bnp Study Quality: Adequate w contrast ECG Rhythm: Sinus Conclusions: - Normal left ventricular size and systolic function. There is moderately increased left ventricular wall thickness. The visually estimated ejection fraction is between 65-70%. - E/E prime ratio is >15, consistent with elevated filling pressures. - Moderately increased right ventricular cavity size. There is mildly decreased right ventricular systolic function. - Mild pulmonary hypertension is present. Findings Procedure Information Contrast agent, definity, is being given per protocol without apparent complications. The quality of the study was technically difficult. The study quality is limited by patients body habitus. Left Ventricle Normal left ventricular size and systolic function. There is moderately increased left ventricular wall thickness. The visually estimated ejection fraction is between 65-70%. There is no evidence of regional wall motion abnormalities. Abnormal diastolic function is noted. Spectral Doppler is indicative of a pseudonormal filling pattern. E/E prime ratio is >15, consistent with elevated filling pressures. Right Ventricle Moderately increased right ventricular cavity size. There is mildly decreased right ventricular systolic function. Atria The left atrium is likely dilated. The right atrium is mildly dilated. Aortic Valve There is a normal trileaflet aortic valve. There is no aortic valve stenosis. There is no aortic valve regurgitation. Mitral Valve The mitral valve appears normal. There is no mitral valve regurgitation. There is no mitral valve stenosis. Pulmonic Valve The pulmonic valve is normal. There is trace pulmonic valve regurgitation. Tricuspid Valve Normal tricuspid valve structure. The right ventricular systolic pressure is 41 mmHg. Moderately elevated right atrial pressure. Mild pulmonary hypertension is present. Great Vessels The visualized portions of the pulmonary artery and branches are normal. Venous The inferior vena cava is normal in size and collapses less than 50% with inspiration. Pericardium/Pleural There is no evidence of pericardial effusion. Prior Study Comparison No significant change compared to prior study dated: 09/14/2024. Measurements 2D Linear Measurements IVSd: 1.24 0.6-0.9/0.6-1.0 cm LVIDd: 4.85 3.9-5.3/4.2-5.9 cm LVIDd Index: 2.49 2.4-3.2/2.2-3.1 cm/m2 LVIDs: 3.36 2.0-3.6 cm LVPWd: 1.31 0.7-1.1 cm LA Diam: 3.90 2.7-3.8/3.0-4.0 cm LAIDs Index: 2.00 1.5-2.3 cm/m2 LV Mass: 302.79 67-162/88-224 g LV Mass Index: 155.27 43-95/49-115 g/m2 LVOT Diam: 2.00 3.0+(-)1.3 cm 2D Systolic Function EF 4C: 80.00 >55% EF 2C: 65.30 >55% EF BiP: 74.00 >55% Mitral Valve MV Pk E: 1.12 MV PK A: 0.95 MV Decel Time: 168.00 E/A: 1.20 E'Lateral: 5.44 E'Medial: 5.44 E/E' Med: 20.60 E/E' Lat: 20.60 PHT: 49.00 MVA PHT: 4.49 Decel Evangeline: 6.65 Aortic Valve AoV Pk Kaden: 1.43 AoV Pk Grad: 8.00 AILIN: 2.68 LVOT LVOT Pk Kaden: 1.28 LVOT Mn Kaden: 0.78 LVOT VTI: 0.22 LVOT Pk Grad: 7.00 LVOT Mn Grad: 3.00 LVOT Diam: 2.00 LVOT Area: 3.14 Diastolic Function MV Pk E: 1.12 MV Pk A: 0.95 E/A: 1.20 E'Medial: 5.44 E/E' Med: 20.60 E' Laterial: 5.44 E/E' Lat: 20.60 Right Ventricle TAPSE (mm): 18.80 TVS' Kaden: 16.40 Tricuspid Valve TR Pk Kaden: 2.93 TR Pk Grad: 34.00 RA Press: 8.00 RVSP: 41.00 Great Vessels Aorta Sinus of Valsalva: 3.50 2.0-3.5 cm Ao Asc: 4.00 2.1-3.4 cm Pulmonary Valve PV Pk Kaden: 1.09 Peak PV Grad: 5.00 Updated in Other Vendor System with Status of Final Breezy Meeks MD electronically signed on 11/09/2024 7:51:24 PM with status of Final
[2024-11-08 07:44] LABS: Glucose, Whole Blood 364 mg/dL (60-115)
[2024-11-08] MEDS: Albuterol/Iprat 2.5/0.5MG 3 ML AMPUL.NEB INHALE ×3 (08:08→20:13)
[2024-11-08] MEDS: Lidocaine 4 % Patch ADH..PATCH 1 PATCH TRANSDERMA ×2 (08:10→08:11)
[2024-11-08] MEDS: 0.9 % Sodium Chloride Flush 3 ML SYRINGE IVFLUSH ×3 (08:10→21:17)
[2024-11-08] MEDS: Nystatin Oral Susp 500,000 UNIT/5 ML ORAL.SUSP 500000 UNIT PO (08:11)
[2024-11-08 11:23] LABS: Glucose, Whole Blood 286 mg/dL (60-115)
--- NOTE | 2024-11-08 12:11 | HO.PM.IMPN ---
Subjective Subjective Date of Service: 11/08/24 Interval History: SOB and breathing better Chronic cough almost back to baseline Migraine yesterday, no JIANG today No fever Review of Systems Review of Systems: Yes all other systems are reviewed and are negative Physical Exam Exam: Exam: General: AOx3, no acute distress Resp: CTA bilaterally CVS: S1, S2, RRR GI: +BS, NT, no distention Skin: Warm, dry Neuro: Cranial nerves II-XII grossly intact bilaterally. Motor grossly intact bilaterally Extremities: No edema Psych: Appropriate affect Vital Signs: Vital Signs: Last Vital Signs Temp 97.4 F 11/08/24 11:59 Pulse 73 11/08/24 11:59 Resp 18 11/08/24 11:59 BP 131/76 11/08/24 11:59 Pulse Ox 96 11/08/24 11:59 O2 Del Method Room Air 11/08/24 11:59 O2 Flow Rate 2 11/08/24 07:44 Oxygen Flow Rate 2 11/04/24 07:11 BMI result Body Mass Index 34.2 Objective Data Active Medications Acetaminophen (Acetaminophen 325 Mg Tablet) 650 mg PO Q6H PRN PRN Reason: Pain, Mild 1-3,fever,headache Albuterol Sulfate (Albuterol Sulfate (0.083%) 2.5 Mg/3 Ml Vial.Neb) 2.5 mg INHALE Q4H PRN PRN Reason: Shortness of Breath/Wheezing Last Admin: 11/07/24 21:40 Dose: 2.5 mg Documented By: REBECA Albuterol/Ipratropium (Albuterol/Iprat 2.5/0.5mg 3 Ml Ampul.Neb) 3 ml INHALE RQ6H WHILE AWAKE [facility] Last Admin: 11/08/24 08:08 Dose: 3 ml Documented By: LUDMILA Amlodipine Besylate (Amlodipine Besylate 10 Mg Tablet) 10 mg PO DAILY@0030 [facility]; Protocol Last Admin: 11/08/24 00:09 Dose: 10 mg Documented By: JEFFY Aspirin (Aspirin 325 Mg Tablet) 325 mg PO BID@0030,1230 [facility] Last Admin: 11/08/24 11:59 Dose: 325 mg Documented By: ELPIDIO Calcium Carbonate (Calcium Carbonate 750 Mg Tab.Chew) 750 mg PO Q4H PRN PRN Reason: Heartburn Ceftriaxone Sodium (Ceftriaxone Sodium 1 Gm Vial) 1 gm IVPUSH Q24H [facility] Last Admin: 11/08/24 08:10 Dose: 1 gm Documented By: FANNY Cyclobenzaprine HCl (Cyclobenzaprine Hcl 5 Mg Tablet) 5 mg PO TID PRN PRN Reason: Cramps Last Admin: 11/08/24 11:54 Dose: 5 mg Documented By: ELPIDIO Dextrose (Dextrose 50 % 25 Gm/50 Ml Syringe) 25 gm IVPUSH Q15M PRN; Protocol PRN Reason: per Hypoglycemia Standing Ord. Furosemide (Furosemide 40 Mg Tablet) 40 mg PO DAILY@1230 [facility]; Protocol Last Admin: 11/08/24 11:53 Dose: 40 mg Documented By: ELPIDIO Glucose (Glucose Gel 15 Gm Gel..Gram.) 15 gm PO Q15M PRN; Protocol PRN Reason: per Hypoglycemia Standing Ord. Guaifenesin/Codeine Phosphate (Guaifen/Codeine Sf 200/20/10ml 10 Ml Liquid) 5 ml PO Q4H PRN PRN Reason: Cough Last Admin: 11/06/24 20:08 Dose: 5 ml Documented By: JAVAN Hydroxychloroquine Sulfate (Hydroxychloroquine Sulfate 200 Mg Tablet) 200 mg PO DAILY@0030 [facility] Last Admin: 11/08/24 00:10 Dose: 200 mg Documented By: JEFFY Doxycycline Hyclate 100 mg/ (Sodium Chloride) 250 mls @ 166.67 mls/hr IV Q12H [facility] Last Infusion: 11/08/24 09:59 Dose: Infused Documented By: FANNY Insulin Glargine (Insulin Glargine,Hum.Rec.Anlog 100 Unit/Ml 10 Ml Vial) 45 unit SUBCUT BEDTIME [facility] Last Admin: 11/07/24 20:43 Dose: 45 unit Documented By: NOREEN Insulin Human Lispro (Insulin Lispro 100 Unit/Ml 3 Ml Vial) 8 unit SUBCUT QIDACHS [facility] Last Admin: 11/08/24 11:53 Dose: 8 unit Documented By: ELPIDIO Insulin Human Lispro (Insulin Lispro 100 Unit/Ml 3 Ml Vial) 0 unit SUBCUT QIDACHS [facility]; Protocol Last Admin: 11/08/24 11:53 Dose: 8 unit Documented By: ELPIDIO Lidocaine (Lidocaine 4 % Patch Adh..Patch) 1 patch TRANSDERMA DAILY [facility]; Protocol Last Admin: 11/08/24 08:10 Dose: 1 patch Documented By: FANNY Lidocaine (Lidocaine 4 % Patch Adh..Patch) 1 patch TRANSDERMA DAILY [facility]; Protocol Last Admin: 11/08/24 08:11 Dose: 1 patch Documented By: FANNY Losartan Potassium (Losartan Potassium 25 Mg Tablet) 25 mg PO DAILY@0030 [facility]; Protocol Last Admin: 11/08/24 00:09 Dose: 25 mg Documented By: JEFFY Magnesium Hydroxide (Milk Of Magnesia 30 Ml Oral.Susp) 30 ml PO DAILY PRN PRN Reason: Constipation Magnesium Oxide (Magnesium Oxide 400 Mg Tablet) 400 mg PO DAILY@0030 [facility] Last Admin: 11/08/24 00:09 Dose: 400 mg Documented By: JEFFY Melatonin (Melatonin 3 Mg Tablet) 6 mg PO BEDTIME PRN PRN Reason: Insomnia Montelukast Sodium (Montelukast Sodium 10 Mg Tablet) 10 mg PO BEDTIME@0030 [facility] Last Admin: 11/08/24 00:10 Dose: 10 mg Documented By: JEFFY Morphine Sulfate (Morphine Sulfate Er 30 Mg Tablet.Er) 30 mg PO BID@29,1230 [facility] Last Admin: 11/08/24 11:54 Dose: 30 mg Documented By: ELPIDIO Nicotine (Nicotine 21 Mg Patch.Td24) 21 mg TRANSDERMA DAILY [facility] Last Admin: 11/08/24 03:25 Dose: 21 mg Documented By: JEFFY Non-Formulary Medication (Tiotropium-Olodaterol [Stiolto Respimat]) 2 puff INHALE DAILY@1230 [facility] Pt Own (But/Asa/Caff /Cod 50-32-40-30 1 Cap) 1 cap PO QID PRN PRN Reason: Headache Last Admin: 11/07/24 17:53 Dose: 1 cap Documented By: NOREEN Nystatin (Nystatin Oral Susp 500,000 Unit/5 Ml Oral.Susp) 500,000 unit PO DAILY [facility]; Protocol Last Admin: 11/08/24 08:11 Dose: 500,000 unit Documented By: FANNY Nystatin (Nystatin Powder 15 Gm Bottle) 1 appl TOPICAL BID [facility]; Protocol Last Admin: 11/08/24 08:19 Dose: 1 appl Documented By: FANNY Omeprazole (Omeprazole 20 Mg Capsule.) 20 mg PO DAILY@0630 [facility] Last Admin: 11/08/24 06:00 Dose: 20 mg Documented By: JEFFY Ondansetron HCl (Ondansetron Hcl 4 Mg/2 Ml Vial) 4 mg IVPUSH Q8H PRN PRN Reason: Nausea and Vomiting Last Admin: 11/07/24 16:50 Dose: 4 mg Documented By: NOREEN Oxycodone HCl (Oxycodone Hcl Immed Release 5 Mg Tablet) 10 mg PO QID PRN PRN Reason: Pain, Moderate(Pain Scale 4-6) Last Admin: 11/08/24 11:54 Dose: 10 mg Documented By: ELPIDIO Pramipexole Dihydrochloride (Pramipexole Di-Hcl 0.25 Mg Tablet) 0.25 mg PO DAILY@1230 [facility] Last Admin: 11/08/24 11:53 Dose: 0.25 mg Documented By: ELPIDIO Pramipexole Dihydrochloride (Pramipexole Di-Hcl 0.25 Mg Tablet) 0.5 mg PO BEDTIME [facility] Prednisone (Prednisone 20 Mg Tablet) 40 mg PO DAILY [facility] Last Admin: 11/08/24 08:23 Dose: 40 mg Documented By: FANNY Pregabalin (Pregabalin 75 Mg Capsule) 75 mg PO DAILY@0030 [facility] Last Admin: 11/08/24 00:10 Dose: 75 mg Documented By: JEFFY Sodium Chloride (0.9 % Sodium Chloride Flush 3 Ml Syringe) 3 ml IVFLUSH QSHIFT [facility] Last Admin: 11/08/24 08:10 Dose: 3 ml Documented By: FANNY Labs 11/05/24 05:29 11/05/24 05:29 Labs: Laboratory Results - last 24 hr 11/07/24 11/07/24 11/07/24 15:13 16:30 20:15 POC Glucose 241 H 247 H 279 H 11/08/24 11/08/24 07:20 11:11 POC Glucose 364 H* 286 H Assessment and Plan (1) Pneumonia: Status: Acute Plan 64-year-old female with a history of chronic hypoxic respiratory failure due to COPD, insulin-dependent diabetes, Sjogren's, fibromyalgia, chronic chronic opiate use, celiac disease, ulcerative colitis, RLS, TENISHA, HFpEF who presents to the emergency department with chest pain 2/2 recurrent costochondritis in the setting of persistent chronic cough on superimposed COPD (with acute exacerbation) & superimposed pneumonia. Acute on chronic hypoxic hypercarbic respiratory failure with superimposed pneumonia No sepsis. lactic acid normal Blood cultures negative after 48 hours PLAN - doxycycline, ceftriaxone, day 5 - prednisone 40 mg OD p.o. - DuoNebs as needed - seen by pulmonology; no plan for bronchoscopy Question of dental infection Pt complaining of left lower jaw tooth infection with the past few weeks Pt being covered by antibiotics above; discharge on Augmentin Follow up with dentist outpatient Atypical Chest pain Reproducible with palpation. Present on previous admission. Likely secondary to costochondritis from chronic cough PLAN - lidocaine patch - guaifenesin/codeine - consider use of gabapentin/pregabalin for persistent pain - topical diclofenac - pulmonary rehabilitation HFpEF pro- BNP on lower side, CXR showing possible pleural effusion continue baseline lasix; will give one dose of Lasix IV per pulmonology recommendation low sodium diet Left lower extremity swelling chronic, present on previous admission. Ultrasound negative for DVT 10/21 We will hold off on repeat ultrasound Edema greatly improved IDDM with hyperglycemia Likely due to steroids Hba1c 9.0 hold metformin Continue Lantus SSI, POCs, ADA diet HTN Continue losartan, Norvasc chronic pain/chronic opiate use Continue baseline morphine, oxycodone, lyrica on asa 325 bid ?for pain gerd continue PPI RLS Continue pramipexole Sjogren's continue hydroxychloroquine TENISHA cpap at nighttime Obesity class II BMI 33.9 Weight loss encouraged Pt needs continued hospitalization for continued treatment of pneumonia while awaiting pt's breathing returned to baseline. Pt will likely be able to be discharged home tomorrow. Quality Stroke Does the patient have a stroke diagnosis?: No VTE Prior VTE?: No VTE Risk Level:: Medical - moderate - high VTE Device Contraindication: N/A - Device Ordered VTE Drug Contraindication: N/A - Med Ordered
--- NOTE | 2024-11-08 15:17 | PM.PNPUL ---
Subjective Subjective Date of Service: 11/08/24 Interval history: Dyspnea and hypoxia improving, now titrated down to room air. Objective Data Labs 11/05/24 05:29 11/05/24 05:29 Labs: Laboratory Results - last 24 hr 11/07/24 11/07/24 11/07/24 15:13 16:30 20:15 POC Glucose 241 H 247 H 279 H 11/08/24 11/08/24 07:20 11:11 POC Glucose 364 H* 286 H Microbiology Microbiology Results: Microbiology 11/04/24 08:06 Blood - Venous Blood Culture - Preliminary No growth after 48 hours. 11/04/24 07:55 Blood - Venous Blood Culture - Preliminary No growth after 48 hours. Physical Exam Vital Signs: Vital Signs: Last Vital Signs Temp 97.0 F 11/08/24 15:14 Pulse 76 11/08/24 15:14 Resp 18 11/08/24 15:14 BP 134/76 11/08/24 15:14 Pulse Ox 92 11/08/24 15:14 O2 Del Method Room Air 11/08/24 15:14 O2 Flow Rate 2 11/08/24 07:44 Oxygen Flow Rate 2 11/04/24 07:11 BMI result Body Mass Index 34.2 Const: General: no acute distress, alert and awake Eyes: Sclerae: sclerae normal EOM: EOMs intact bilaterally Neck: Neck: Yes no lymphadenopathy, Yes trachea midline and Yes supple Resp: Effort & Inspection: normal respiratory effort and no respiratory distress Auscultation: clear to auscultation bilaterally Cardio: Rate: regular rate Rhythm: regular rhythm Heart sounds: no gallops, no murmurs and no rubs GI: Palpation (GI): Soft to palpation and Other GI palpation findings present ( Nontender) Auscultation: normal bowel sounds Extrem: General: No clubbing, No cyanosis and Yes edema (Trace lower extremity) Procedures Date of Service Date of Service: 11/08/24 Assessment and Plan Assessment and plan (1) COPD (chronic obstructive pulmonary disease): Status: Acute Plan Impression: 64-year-old lady with underlying C0 current/rheumatoid arthritis, also with COPD and secondary erythrocytosis admitted with worsening dyspnea, appears to be secondary exacerbation of underlying COPD, now improved close to baseline. Imaging of the chest shows atelectasis that comes and goes and is not persistent. Recommendation: No indication for bronchoscopy at this time. Agree with current therapeutic regimen including nebulized bronchodilators and glucocorticoid taper. Appears to have some component of pulmonary edema, would consider additional diuresis. Time Spent With Patient Time: Total time managing care of this patient today ____ minutes. Progress Note: Quality Stroke Does the patient have a stroke diagnosis?: No
[2024-11-08] MEDS: Furosemide 40 MG/4 ML VIAL IVPUSH (15:45)
--- NOTE | 2024-11-08 15:56 | MHC.CM.PN ---
PER ROUNDS PT NOT MEDICALLY READY FOR DC PT TO BE SEEN BY DR WONG
[2024-11-08 16:43] LABS: Glucose, Whole Blood 360 mg/dL (60-115)
[2024-11-08 20:14] LABS: Glucose, Whole Blood 419 mg/dL (60-115)
[2024-11-08] MEDS: Insulin Glargine,Hum.rec.anlog 100 UNIT/ML 10 ML VIAL 45 UNIT SUBCUT (21:10)
[2024-11-09] MEDS: Morphine Sulfate ER 30 MG TABLET.ER PO ×2 (00:13→12:28)
[2024-11-09] MEDS: oxyCODONE HCl Immed Release 5 MG TABLET 10 MG PO ×3 (00:14→12:28)
[2024-11-09 03:48] VITALS: BP 130/70; PULSE 60; RESP 18; TEMP 36.3; O2SAT 98
[2024-11-09 07:01] VITALS: BP 123/70; PULSE 71; RESP 16; TEMP 36.2; O2SAT 96
[2024-11-09] MEDS: Albuterol/Iprat 2.5/0.5MG 3 ML AMPUL.NEB INHALE (07:50)
[2024-11-09 07:51] VITALS: PULSE 74; RESP 16; O2SAT 94
[2024-11-09] MEDS: Nystatin Oral Susp 500,000 UNIT/5 ML ORAL.SUSP 500000 UNIT PO (07:51)
[2024-11-09] MEDS: Nicotine 21 MG PATCH.TD24 TRANSDERMA (07:51)
[2024-11-09] MEDS: Lidocaine 4 % Patch ADH..PATCH 1 PATCH TRANSDERMA ×2 (07:51→07:52)
[2024-11-09] MEDS: CAFFEINE PO (11:09)
[2024-11-09] MEDS: BUTALBITAL PO (11:09)
[2024-11-09] MEDS: CODEINE PO (11:09)
[2024-11-09] MEDS: ASPIRIN PO (11:09)
[2024-11-09 11:20] LABS: Glucose, Whole Blood 322 mg/dL (60-115)
[2024-11-09 11:31] VITALS: BP 121/69; PULSE 81; RESP 18; TEMP 36; O2SAT 94
--- NOTE | 2024-11-09 11:55 | MHC.CM.PN ---
DP: PT HAS BEEN MEDICALLY CLEARED FOR DC HOME, NO SERVICES. PT HAS OWN RIDE HOME.
--- NOTE | 2024-11-09 12:18 | PM.DS ---
DS: Providers Provider Date of Service: 11/09/24 Date of admission: 11/04/24 10:08 Date of discharge: 11/09/24 Primary care physician: Dottie Douglass MD Consults: 11/06/24 08:26 Consult to Pulmonology Routine Consulting [place] [facility] [place] Reason for consultation: Dr. Nevarez patient, acute COPD exacerbations/ costochondritis/ chr. cough DS: Diagnosis Discharge Diagnosis (1) Pneumonia: Status: Acute DS: Summary Hospital Course Hospital Course: From admission HPI: Date of Service: 11/04/24 Attending physician on admission: Cierra Eisenberg Chief Complaint: chest pain This is a 64-year-old female with chronic respiratory failure on 4 L of supplemental oxygen who presents to the emergency department with chest pain. Patient was admitted at [facility] on October 21 for COPD exacerbation and exacerbation of heart failure. She was discharged with a course of oral antibiotics and oral steroids which she reports that she completed and had initially been feeling better. Starting yesterday she reports that her oxygen saturations have been lower than her baseline and she has had to use her oxygen. She does have 4L of oxygen to use as needed. she also reports right-sided chest pain which is worse when she coughs and sweating. Her cough is reportedly unchanged stating that she ?always coughs due to her Sjogren syndrome. She denies any recent sick contacts, she denies fever. In the emergency department she was noted to have leukocytosis of 15.3, elevated CRP and chest x-ray concerning for left-sided pneumonia. Her inital trop was 14.5 and pro-BNP 440 She was treated with IV steroids, IV ceftriaxone and IV doxycycline as well as a dose of fentanyl for her pain. Hospital course Pt was admitted to the hospital for acute on chronic hypoxic respiratory failure in setting of COPD exacerbation with underlying pneumonia. pt was treated with bronchodilator therapy, IV steroids, and IV antibiotics to good effect. Pt was seen and evaluated by pulmonology who initially questioned whether bronchoscopy was necessary due to possible mucus plugging. However, upon further evaluation no bronchoscopy necessary as pt recovered well. Has been weaned off of supplemental oxygen at rest, and chronic SOB and cough back to baseline. Pt will be discharged on oral antibiotics, short course of prednisone, and guaifenesin with codeine for cough. Pt was evaluated for atypical chest pain, were cardiac workup was negative and chest pain likely secondary to costochondritis secondary to chronic cough in the setting of COPD exacerbation and pneumonia. Additional details concerning hospital stay listed below. Acute on chronic hypoxic hypercarbic respiratory failure with superimposed pneumonia No sepsis. lactic acid normal Blood cultures negative after 48 hours PLAN - treated with doxycycline and ceftriaxone x 6 days, will be d/c on cefuroxime 250 mg b.i.d. and doxycycline 100 mg b.i.d. x1 additional day - treated with IV steroids; will be discharged on prednisone 40 mg p.o. x3 days then 20 mg x 3 days - continue home inhalers - seen by pulmonology; no plan for bronchoscopy Question of dental infection Pt complaining of left lower jaw tooth infection with the past few weeks Pt being covered by antibiotics above; pain currently well-controlled, has tolerated solid food Follow up with dentist outpatient Atypical Chest pain Reproducible with palpation. Present on previous admission. Likely secondary to costochondritis from chronic cough PLAN - lidocaine patch - guaifenesin/codeine HFpEF pro- BNP on lower side, CXR showing possible pleural effusion continue baseline lasix; was given one dose of Lasix IV per pulmonology recommendation low sodium diet Left lower extremity swelling chronic, present on previous admission. Ultrasound negative for DVT 10/21 We will hold off on repeat ultrasound Edema greatly improved IDDM with hyperglycemia Likely due to steroids Hba1c 9.0 Continue home meds Diabetic diet encouraged HTN Continue losartan, Norvasc chronic pain/chronic opiate use Continue baseline morphine, oxycodone, lyrica on asa 325 bid ?for pain gerd continue PPI RLS Continue pramipexole Sjogren's continue hydroxychloroquine TENISHA cpap at nighttime Obesity class II BMI 33.9 Weight loss encouraged 35 Time Attestation Discharge Coordination Time (in mins): 40 Quality: Safe Use of Opioids Does Pt have an Active Cancer Diagnosis on the Problem List?: No Quality: Stroke Does the patient have a stroke diagnosis?: No Physical Exam Exam: Exam: General: AOx3, no acute distress Resp: CTA bilaterally CVS: S1, S2, RRR GI: +BS, NT, no distention Skin: Warm, dry Neuro: Cranial nerves II-XII grossly intact bilaterally. Motor grossly intact bilaterally Extremities: No edema Psych: Appropriate affect Vital Signs: Vital Signs: Last Vital Signs Temp 96.8 F 11/09/24 11:31 Pulse 81 11/09/24 11:31 Resp 18 11/09/24 11:31 BP 121/69 11/09/24 11:31 Pulse Ox 94 11/09/24 11:31 O2 Del Method Nasal Cannula 11/09/24 11:31 O2 Flow Rate 2 11/09/24 11:31 Oxygen Flow Rate 2 11/04/24 07:11 BMI result Body Mass Index 34.2 DS: Data Data Completed and Pending Completed studies during hospitalization [Text1]: Procedures Assistance with Respiratory Ventilation, Less than 24 Consecutive Hours, Continuous Positive Airway Pressure (07/27/24) Labs on day of discharge: Laboratory Results - last 24 hr 11/08/24 11/08/24 11/08/24 16:38 19:47 23:04 POC Glucose 360 H* 419 H* 402 H* 11/09/24 11/09/24 11/09/24 06:35 07:00 11:13 POC Glucose 238 H 271 H 322 H Discharge Plan Discharge Anticipated Discharge Date/Time: 11/09/24 11:24 Patient Disposition: Home, Self-Care Discharge Diagnosis: Acute on chronic hypoxic and hypercarbic respiratory failure with superimposed pneumonia Referrals: Dottie Douglass MD [Primary Care Provider, Endocrinology] - 1 Week Discharge Medications: New codeine-guaifenesin [Guaifenesin AC] 10-100 mg/5 mL liquid 5 ml PO Q6H PRN (Reason: cough) Qty: 120 0RF cefuroxime axetil 250 mg tablet 250 mg PO BID Qty: 3 0RF Rx Instructions: Take one tablet twice a day with food, starting the evening of 11/09 and ending the evening of 11/10. doxycycline monohydrate 100 mg tablet 100 mg PO BID Qty: 3 0RF Rx Instructions: Take one tablet twice a day with food, starting the evening of 11/09 and ending the evening of 11/10. prednisone 20 mg tablet 40 mg PO DAILY Qty: 9 0RF Rx Instructions: Short taper: Take 40mg (2 tablets) once daily for three days and then 20mg (1 tab) once daily for an additional 3 days Continued (DME) blood-glucose meter Kit See Rx Instructions .Route Qty: 1 0RF Rx Instructions: 4 times daily to check blood glucose (DME) Oxygen Home Use Kit See Rx Instructions .Route Qty: 1 3RF Rx Instructions: 2L continuous morphine 30 mg tablet extended release 30 mg PO BID@0030,1230 28 Days Qty: 56 0RF oxycodone 10 mg tablet 10 mg PO QID PRN (Reason: pain) 28 Days Qty: 112 0RF [id number] mg capsule 1 cap PO QID PRN (Reason: headache) 28 Days Qty: 28 0RF aspirin 325 mg Tablet 325 mg PO BID@0030,1230 albuterol sulfate 90 mcg/actuation HFA aerosol inhaler 2 puff INHALATION Q6H PRN (Reason: wheezing) Stiolto Respimat 2.5-2.5 mcg/actuation mist 2 puff INHALATION DAILY@1230 pantoprazole 40 mg tablet,delayed release (DR/EC) 40 mg PO DAILY@0630 montelukast 10 mg tablet 10 mg PO BEDTIME@0030 furosemide [Lasix] 40 mg tablet 40 mg PO DAILY@1230 magnesium oxide 400 mg (241.3 mg magnesium) tablet 400 mg PO DAILY@0030 metformin 1,000 mg tablet 1,000 mg PO BID@0030,1230 losartan 25 mg tablet 25 mg PO DAILY@0030 pramipexole 0.25 mg tablet 1 mg PO DAILY@1230 hydroxychloroquine 200 mg tablet 200 mg PO DAILY@0030 pregabalin [Lyrica] 75 mg capsule 75 mg PO DAILY@0030 nystatin 100,000 unit/mL suspension 5 ml PO DAILY Rx Instructions: swish and spit insulin lispro 100 unit/mL insulin pen 25 unit subcut TIDAC nicotine (polacrilex) 4 mg lozenge 4 mg buccal Q4H PRN (Reason: nicotine cravings) insulin glargine-yfgn 100 unit/mL solution 40 unit subcut DAILY lidocaine [Lidocaine Pain Relief] 4 % adhesive patch,medicated 3 patch transdermal DAILY PRN (Reason: Pain) Protocol: Apply to: Apply to: right anterior chest (DME) FreeStyle Mag 3 Plus Sensor Device See Rx Instructions .Route Qty: 6 3RF Rx Instructions: As directed (DME) FreeStyle Mag 3 Madeline Misc See Rx Instructions .Route Qty: 1 0RF Rx Instructions: As directed (DME) Dexcom G7 Sensor Device See Rx Instructions .Route Qty: 6 3RF Rx Instructions: every 15 days (DME) Dexcom G7 Research Project Manager Misc See Rx Instructions .Route Qty: 1 0RF Rx Instructions: As directed ondansetron 4 mg tablet,disintegrating 4 mg PO Q8H PRN (Reason: nausea and vomiting) Qty: 30 1RF amlodipine 10 mg tablet 10 mg PO DAILY@0030 Qty: 90 3RF Discharge Orders: Discharge Order (Routine); Ordered 11/09/24 Ordered By: Per [place] Activity on Discharge: As tolerated Stand Alone Forms: Patient Portal Discharge page Print Language: Latvian Care Plan Goals: See below Health Concerns: Acute on chronic hypoxic and hypercarbic respiratory failure COPD exacerbation Pneumonia Dental infection Mucus plugging Plan of Treatment: You were admitted to the hospital for acute on chronic hypoxic and hypercarbic respiratory failure with COPD exacerbation and superimposed pneumonia. You were treated with IV antibiotics, breathing treatments, steroids, and expectorant. You were seen and evaluated with pulmonology who did not think a bronchoscopy was indicated at this time. You recovered slowly and eventually weaned to room air. Currently your breathing, cough, and SOB at baseline. You will be discharged on short course of oral antibiotics, steroids, and cough syrup. You should follow up with pulmonology outpatient, as well as with Rheumatology. -- take cefuroxime 250mg twice a day and doxycycline 100 mg twice a day for the next day, started in the evening of 11/09 and ending on the evening of 11/10 -- take prednisone 40 mg for 3 days, then 20 mg for an additional 3 days -- you will be prescribed guaifenesin with codeine for cough as needed every 6 hours -- follow up with pulmonology in 1-2 weeks -- follow up outpatient with Rheumatology for managing Sjogren's -- you are strongly encouraged to quit smoking Assessment: See discharge summary
--- NOTE | 2024-11-09 13:02 | MHC.CM.PN ---
DP: PT HAS BEEN MEDICALLY CLEARED FOR DC HOME, NO SERVICES. PT 'S SPOUSE WILL TRANSPORT HOME.
--- NOTE | 2024-12-07 19:53 | P.CDIM_ITS ---
PROVIDER RESPONSE TEXT: To clarify, the appropriate diagnosis supported by the clinical indicators: Obesity Class II QUERY TEXT: PHYSICIAN'S DOCUMENTATION REQUEST Date of Query: 11/30/2024 09:58 AM EDT Patient Name: Lashon Parra Admit Date: 11/04/2024 Dear Per TRAYLOR, A review of the medical record indicates additional documentation may be needed. Please review below and update the documentation accordingly. Clinical Indicators: Height: ( ) 5'4 Weight: ( ) 90.3 kg BMI: ( ) Other Clinical Notes Supporting Significance of the BMI: Per Hospitalist Progress note 11/06/24: Morbid obesity, BMI 33.9 Per Discharge Summary 11/09/24: Obesity, Class II, BMI 33.9 If possible, please provide an associated diagnosis related to the abnormal BMI, such as: Obesity Class II Morbid Obesity Other (explain) Clinically unable to determine (explain) Thank you, Aylin Summers RN Use of terms such as suspected, likely, concern for, or probable (associated with a specific diagnosis that is being evaluated, monitored, or treated as if it exists) are acceptable and can be coded in the inpatient setting, when documented at the time of discharge. Please use your independent medical judgment in providing your response. THIS QUERY IS PART OF THE PERMANENT MEDICAL RECORD
== END 2024-11-09 14:31 | disposition home or self-care (01) | DRG 193 ==
LOC: HO.ED 09:34 → HO.EDOVER 10:15 → HO.IMC 16:05 → HO.S3 11-06 18:57
PROVIDERS: Hospitalist; Admitting Provider Physician Assistant Medical; Emergency Provider Emergency Medicine; PCP Internal Medicine; Visit Provider Student in an Organized Health Care Education/Training Program
DX: J18.9 Pneumonia, unspecified organism (principal); J96.21 Acute and chronic respiratory failure with hypoxia; J96.22 Acute and chronic respiratory failure with hypercapnia; J44.1 Chronic obstructive pulmonary disease with (acute) exacerbation; I50.32 Chronic diastolic (congestive) heart failure; J44.0 Chronic obstructive pulmonary disease with (acute) lower respiratory infection; I11.0 Hypertensive heart disease with heart failure; R22.42 Localized swelling, mass and lump, left lower limb; G89.29 Other chronic pain; Z99.81 Dependence on supplemental oxygen; M35.00 Sjogren syndrome, unspecified; G25.81 Restless legs syndrome; K21.9 Gastro-esophageal reflux disease without esophagitis; G47.33 Obstructive sleep apnea (adult) (pediatric); E11.65 Type 2 diabetes mellitus with hyperglycemia; T38.0X5A Adverse effect of glucocorticoids and synthetic analogues, initial encounter; M94.0 Chondrocostal junction syndrome [Tietze]; K04.7 Periapical abscess without sinus; E66.812 Obesity, class 2; Z68.34 Body mass index [BMI] 34.0-34.9, adult; Z71.3 Dietary counseling and surveillance; Z79.4 Long term (current) use of insulin; Z79.82 Long term (current) use of aspirin; Z79.891 Long term (current) use of opiate analgesic; Z79.899 Other long term (current) drug therapy
CPT/HCPCS: 36415; 71045; 80048; 80053; 82803; 82947; 83036; 83605; 83735; 83880; 84145; 84484; 85025; 85027; 85379; 86140; 87040; 93005; 93306; 94640; 97162; 99285; J0696; J1271; J1650; J1938; J2405; J2919; J3010; J3475; Q9957

== ENCOUNTER → 2024-11-04 07:03 | Outpatient (BNV) | payer OTHER, SELFPAY | PROVIDERS: Admitting Provider Physician Assistant Medical; Emergency Provider Emergency Medicine; PCP Internal Medicine; Visit Provider Internal Medicine | DX: I44.4 Left anterior fascicular block (principal) | CPT/HCPCS: 93010 ==

== ENCOUNTER → 2024-11-04 07:26 | Outpatient (BNV) | payer OTHER, SELFPAY | PROVIDERS: Emergency Provider Emergency Medicine; PCP Internal Medicine; Visit Provider Radiology Diagnostic Radiology | DX: R07.9 Chest pain, unspecified (principal) | CPT/HCPCS: 71045 ==

== ENCOUNTER 2024-11-04 10:08 | Outpatient (BNV) | payer OTHER, SELFPAY | END 2024-11-08 07:00 | PROVIDERS: Admitting Provider Physician Assistant Medical; Emergency Provider Emergency Medicine; PCP Internal Medicine; Visit Provider Internal Medicine Cardiovascular Disease | DX: I27.20 Pulmonary hypertension, unspecified (principal); I51.7 Cardiomegaly | CPT/HCPCS: 93306 ==

== ENCOUNTER → 2024-11-04 10:08 | Outpatient (BNV) | payer OTHER, SELFPAY | PROVIDERS: Admitting Provider Physician Assistant Medical; Emergency Provider Emergency Medicine; PCP Internal Medicine; Visit Provider Physician Assistant Medical | DX: J18.9 Pneumonia, unspecified organism (principal) | CPT/HCPCS: 99223; 99232; 99233; 99239 ==

== ENCOUNTER → 2024-11-04 10:08 | Outpatient (BNV) | payer OTHER, SELFPAY | PROVIDERS: Admitting Provider Physician Assistant Medical; Emergency Provider Emergency Medicine; PCP Internal Medicine; Visit Provider Internal Medicine | DX: J44.1 Chronic obstructive pulmonary disease with (acute) exacerbation (principal); J98.11 Atelectasis; G47.33 Obstructive sleep apnea (adult) (pediatric); R05.9 Cough, unspecified | CPT/HCPCS: 99222; 99232 ==

== ENCOUNTER 2024-12-06 07:31 | Inpatient (IN) | payer OTHER, SELFPAY ==
[2024-12-06] VITALS (10 sets, daily range): BP systolic 102–149; BP diastolic 50–74; PULSE 74–92; RESP 16–26; TEMP 36.3–36.7; O2SAT 92–95; BMI 35.2
--- NOTE | ~2024-12-06 | US_ITS ---
EXAMINATION: US TRIPLEX LOWER EXTREMITY, LEFT CLINICAL INFORMATION: Pain and edema, left lower extremity COMPARISON: October 21, 2024. TECHNIQUE: Color-flow triplex imaging with spectral analysis and compression Doppler were performed on the left lower extremity. FINDINGS: Respiratory variation, normal compression and augmented flow are demonstrated in the interrogated left common femoral vein, superficial femoral vein, profunda femoral vein, popliteal vein and midcalf peroneal and posterior tibial venous segments . There is no Walton's cyst. Soft tissue edema pattern without fluid collections. US/US venous duplex LE LT IMPRESSION: No acute deep venous thrombosis interrogated veins, left lower extremity. Negative for DVT.. Electronically signed by: Filippo Prieto MD 12/06/2024 09:34 AM EDT
--- NOTE | ~2024-12-06 | XR_ITS ---
EXAMINATION: XR CHEST CLINICAL INFORMATION: cough, fevers, chills COMPARISON: November 04, 2024. TECHNIQUE: Frontal view of the chest was obtained. FINDINGS: Pulmonary reticular nodular pattern. Blunting of the left costophrenic angle. No pneumothorax. Cardiomediastinal silhouette size is normal. Multilevel spondylosis. Metallic prosthesis right humerus. Degenerative changes in the acromioclavicular joint and left glenohumeral joint. XR/XR chest 1V IMPRESSION: Chronic interstitial lung disease. Superimposed acute inflammatory versus infectious process cannot be excluded. Electronically signed by: Filippo Prieto MD 12/06/2024 08:33 AM EDT
--- NOTE | ~2024-12-06 | US_ITS ---
CLINICAL HISTORY: r o dvt Venous duplex ultrasound bilateral lower extremity COMPARISON: US left lower extremity veins dated 12/06/24 at 09:00 EDT FINDINGS: The visualized deep veins are fully compressible with normal Doppler color flow and spectral tracings. No popliteal cyst. IMPRESSION: 1. Negative for bilateral lower extremity deep vein thrombosis. This document has been electronically signed by: Uday Ortega MD on 12/06/2024 18:51:12
--- NOTE | ~2024-12-06 | CT_ITS ---
EXAMINATION: CT HEAD WITHOUT IV CONTRAST HISTORY: L facial numbness. TECHNIQUE: Unenhanced helical CT of the head was performed per standard departmental protocol. Coronal and sagittal reformats of the head were also evaluated. One or more of the following techniques was used for dose reduction: Automated exposure control, adjustment of the mA and/or kV according to patient size, use of iterative reconstruction technique. DLP: 758 mGy-cm COMPARISON: There are no prior studies available for comparison. FINDINGS: BRAIN: There are scattered white matter hypodensities which are nonspecific but often seen in the setting of small vessel ischemic disease. There is no mass effect or midline shift. The ventricular system is normal in size and configuration. No intra- or extra-axial fluid collections are identified. SINUSES: The visualized paranasal sinuses are clear. The mastoid air cells and middle ear cavities are well pneumatized. ORBITS: The visualized orbits are unremarkable. BONES/SOFT TISSUES: The extracranial soft tissues are unremarkable. The calvarium is intact. No suspicious lytic or sclerotic lesions. CT/CT head/brain wo IV con IMPRESSION: No acute intracranial abnormality. Electronically signed by: Sumanth Spear MD 12/06/2024 09:22 AM EDT
--- NOTE | 2024-12-06 07:33 | ED.CHESTPAIN ---
HPI - Chest Pain General Chief Complaint: Chest Pain Stated Complaint: CP RAD TO JAW/L SHOULDER SINCE 3AM,L FOOT SWELLING Source: patient, EMS and old records reviewed Mode of arrival: EMS Limitations: no limitations History of Present Illness ED Provider: LEYDI RÍOS narrative: 64 yo female with PMH of CHF, pulm HTN, pneumonia, DM, polycythemia, TENISHA, RA, ulcerative colitis, sjogrens, arthritis, chronic left leg edema, acute on chronic resp failure - on 4L NC daily - she still smokes about a 1/4 pack a day she was admitted here for pneumonia in October and notes she finished abx and just finished her prednisone taper two days ago. She had DVT study and CTA:PE at that time. She notes yesterday at 3pm she developed increasing LLE swelling, L sided chest pain radiating to the jaw, L facial numbness. She has had increased cough, increasing orthopnea, chills. She reports she is compliant with all medications. She reports robitussin AC helps her cough. MD complaint: chest pain and other Onset (ago): day(s) (yesterday 3pm) Prior episodes: Yes Onset: during rest Pain location: left chest and right chest Pain radiation: jaw/teeth Severity: moderate Quality: sharp Relieving factors: nothing Exacerbating factors: nothing Context: recent illness Associated symptoms: dyspnea, cough and leg swelling Treatment prior to arrival: none Related Data Home Medications ?Medication ?Instructions ?Recorded ?Confirmed aspirin 325 mg tablet 325 mg PO BID@29,122909/27/20 12/06/24 hydroxychloroquine 200 mg tablet 200 mg PO DAILY@2907/27/24 12/06/24 losartan 25 mg tablet 25 mg PO DAILY@2907/27/24 12/06/24 magnesium oxide 400 mg (241.3 mg 400 mg PO DAILY@2907/27/24 12/06/24 magnesium) tablet metformin 1,000 mg tablet 1,000 mg PO BID@07/27/24 12/06/24 pramipexole 0.25 mg tablet 1 mg PO DAILY@122907/27/24 12/06/24 albuterol sulfate 90 mcg/actuation 2 puff inhalation Q6H PRN wheezing 09/13/24 12/06/24 aerosol inhaler montelukast 10 mg tablet 10 mg PO BEDTIME@0 09/13/24 12/06/24 pantoprazole 40 mg tablet,delayed 40 mg PO DAILY@0630 09/13/24 12/06/24 release tiotropium 2.5 mcg-olodaterol 2.5 2 puff inhalation DAILY@1230 09/13/24 12/06/24 mcg/actuation mist for inhalation (Stiolto Respimat) furosemide 40 mg tablet (Lasix) 40 mg PO DAILY@1230 09/28/24 12/06/24 insulin glargine-yfgn 100 unit/mL 40 unit subcut DAILY 11/04/24 12/06/24 subcutaneous solution insulin lispro 100 unit/mL 25 unit subcut TIDAC 11/04/24 12/06/24 subcutaneous pen lidocaine 4 % topical patch 3 patch transdermal DAILY PRN Pain 11/04/24 12/06/24 (Lidocaine Pain Relief) nicotine (polacrilex) 4 mg buccal 4 mg buccal Q4H PRN nicotine 11/04/24 12/06/24 lozenge cravings nystatin 100,000 unit/mL oral 5 ml PO DAILY 11/04/24 12/06/24 suspension One touch ultra test strips 11/15/24 baclofen 10 mg tablet 10 mg PO BID PRN Pain 12/06/24 12/06/24 Previous Rx's ?Medication ?Instructions ?Recorded blood-glucose meter #1 ea 08/25/23 FreeStyle Mag 3 Plus Sensor #6 ea 12/16/23 (blood-glucose sensor) FreeStyle Mag 3 Jackson #1 ea 12/16/23 (blood-glucose,transit mixer operator,cont) Oxygen Home Use #1 ea 04/16/24 Dexcom G7 Jail Guard #1 ea 08/09/24 (blood-glucose,transit mixer operator,cont) Dexcom G7 Sensor (blood-glucose #6 ea 08/09/24 sensor) amlodipine 10 mg tablet 10 mg PO DAILY@0030 #90 tabs 08/09/24 ondansetron 4 mg disintegrating 4 mg PO Q8H PRN nausea and 08/09/24 tablet vomiting #30 tabs djhlerr-usfmumyqko-WBI-caffeine 30 1 cap PO QID PRN headache 28 days 11/17/24 mg-50 mg-325 mg-40 mg capsule #28 caps morphine 30 mg tablet,extended 30 mg PO BID@4518,1230 28 days #56 11/22/24 release tabs oxycodone 10 mg tablet 10 mg PO QID PRN pain 28 days #112 11/22/24 tabs pregabalin 75 mg capsule 75 mg PO BID #180 caps 11/22/24 Onetouch Delica Safety Lancet 30 #300 ea 11/30/24 gauge (lancets) levofloxacin 750 mg tablet 750 mg PO DAILY #10 tabs 12/06/24 Allergies Allergy/AdvReac Type Severity Reaction Status Date / Time atorvastatin (From LIPITOR) Allergy Severe Difficulty Verified 12/06/24 07:44 Breathing azithromycin (AZITHROMYCIN) Allergy Severe Difficulty Verified 12/06/24 07:44 Breathing mite-Dermatophagoides Allergy Severe Difficulty Verified 12/06/24 07:44 farinae, vicente (dust mite - Breathing Shafter [place]) sumatriptan (From IMITREX) Allergy Severe Difficulty Verified 12/06/24 07:44 Breathing house dust Allergy Mild Unknown Verified 12/06/24 07:44 acetaminophen (From TYLENOL) Allergy Unknown Itching Verified 12/06/24 07:44 adhesive tape (ADHESIVE TAPE) Allergy Unknown Rash Verified 12/06/24 07:44 gentamicin (GENTAMICIN) Allergy Unknown Rash Verified 12/06/24 07:44 adalimumab (From Humira) Allergy Rash Verified 12/06/24 07:44 erythromycin base Allergy Unknown Verified 12/06/24 07:44 haloperidol (From HALDOL) AdvReac Unknown GI Issues Verified 12/06/24 07:44 ketorolac (From TORADOL) AdvReac Unknown Muscle Verified 12/06/24 07:44 cramps prasterone (DHEA) (From DHEA) AdvReac Unknown Cardiac Verified 12/06/24 07:44 issues varenicline (From CHANTIX) AdvReac Unknown Seizure Verified 12/06/24 07:44 ipratropium (From Atrovent) AdvReac Migraine Verified 12/06/24 07:44 Review of Systems Review of Systems: Constitutional : No Fever, pos Chills ENT/Mouth : No sore throat, No Rhinorrhea Eyes: No Eye Pain, No Swelling, No Redness Cardiovascular : pos Chest Pain, positive SOB, pos Orthopnea, positive Edema Respiratory : pos Cough, pos Sputum, pos Wheezing, positive dyspnea Gastrointestinal : No Nausea, No Vomiting, No Diarrhea, No abdominal Pain, No Hematochezia, No Melena Genitourinary : No Dysuria, No Urinary Frequency, No Hematuria Musculoskeletal : No joint pain, No Myalgias Skin : No Skin Lesions, No rash All other systems reviewed and are negative [facility] Past Medical History Attestation statement: The following information was validated with the patient. Source: old records reviewed Medical History COPD (chronic obstructive pulmonary disease) Congestive heart failure Atelectasis Supplemental oxygen dependent Insulin 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 2 diabetes Lymphoproliferative disorder TENISHA (obstructive sleep apnea) Emphysema lung Pulmonary hypertension Tobacco dependence due to cigarettes Diabetes mellitus with hyperglycemia Chronic pain syndrome jail (current) use of opiate analgesic Osteoporosis Sjogrens syndrome Rheumatoid arthritis Osteoarthritis Chronic, continuous use of opioids GERD (gastroesophageal reflux disease) Hx of difficult intubation Smoker COPD (chronic obstructive pulmonary disease) Asthma Polycythemia Boils Eczema Bursitis Disc degeneration Sleep apnea Diabetes Fibromyalgia Surgical History History of esophagogastroduodenoscopy (EGD) Hx of tonsillectomy History of surgical removal of pilonidal cyst Hx of plastic surgery Hx of hysterectomy Hx of cholecystectomy Hx of appendectomy History of colonoscopy History of bladder suspension procedure History of removal of cyst Family History Family History Mother Polycythemia TIA (transient ischemic attack) Father Heart attack Other No family history of cancer Social History Social History Household Members: Spouse Housing: House Are you a primary care trainer to a significant other at home: No Do you presently have visiting nurse or other home services: Yes Alcohol intake: never Comment: press call light appropriately Patient Tobacco Use Status: Current everyday Tobacco user Tobacco use type: Cigarette Cigarette Packs Per Day: 1 Cigarettes Per Day: 20.0 Years Smoked: 51 Smoked in Last 30 Days: Yes e-Cigarette/Vaping Use: Never Used Second Hand Smoke Exposure: No Use of substances other than those prescribed or required for medical reasons: No Advance Directives: Yes Advance Directives on File: Yes Advance Directives Date on File: 12/24/19 service: No Current occupational status: retired 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 Cognitive needs: No Hearing needs: No Vision needs: No Physical Exam Vital Signs: Vital Signs: Last Vital Signs Temp 97.9 F 12/06/24 15:04 Pulse 78 12/06/24 15:04 Resp 20 12/06/24 15:04 BP 126/74 12/06/24 15:04 Pulse Ox 94 12/06/24 15:04 O2 Del Method Nasal Cannula 12/06/24 15:04 O2 Flow Rate 3 12/06/24 15:04 Oxygen Flow Rate 3 12/06/24 07:35 BMI result Body Mass Index 35.2 Appearance: Alert. Oriented X3. No acute distress. Eyes: Pupils equal, round and reactive to light. ENT: Pharynx normal. sensation to light touch intact on both sides of face Neck: Normal inspection. Neck supple. CVS: Normal heart rate and rhythm. Pulses normal. Respiratory: No respiratory distress. Breath sounds coarse and diminished with diffuse exp wheezes throughout Abdomen: Soft and nontender. Skin: Skin warm and dry. Normal skin color. Normal skin turgor. Extremities: L leg chronic edema now 3+ from bustillo down to foot, distal pulses intact Neuro: Oriented X 3. No motor deficit. No sensory deficit. CN2-12 intact NIH Stroke Scale Internal: Initial- Upon Arrival Level of Consciousness: Alert Level of Consciousness Questions: Answers both questions correctly Level of Consciousness Commands: Performs both tasks correctly Best Gaze: Normal Visual: No visual loss Facial Palsy: Normal Motor Arm (Right): No drift Motor Arm (Left): No drift Motor Leg (Right): No drift Motor Leg (Left): No drift Limb Ataxia: Absent Sensory: Normal Best Language: No aphasia Dysarthia: Normal Extinction and Inattention: No abnormality Score: 0 Course Course Course Narrative: Lorraine Hammond DO 12/06/24 1109 much more sleepy at this time will start on her CPAP she is supposed to use at home. Will repeat assessment after a couple of hours. at bedside states she doesn't always use it and didn't use it last night. Reevaluation(s) Reevaluation #1: lactic acid canceled suspect this is due to albuterol and not infection or severe sepsis LEYDI 12/06/24 139pm Medications Administered Discontinued Medications Generic Name Dose Route Start Last Admin Trade Name Freq PRN Reason Stop Dose Admin Albuterol Sulfate 5 mg/ 7.5 mg 12/06/24 07:49 12/06/24 08:03 Albuterol Sulfate 2.5 mg INHALE 12/06/24 07:50 7.5 mg ONCE ONE Administration Doxycycline Hyclate 100 mg/ 250 mls @ 166.67 mls/hr 12/06/24 07:43 12/06/24 14:05 Sodium Chloride IV 12/06/24 09:12 Infused ONCE ONE Infusion Sodium Chloride 500 mls @ 250 mls/hr 12/06/24 09:00 12/06/24 10:10 Ns IV 12/06/24 09:59 Not Given .Q2H BETSEY Sodium Chloride 250 mls @ 250 mls/hr 12/06/24 10:00 12/06/24 14:05 Ns IV 12/06/24 10:59 Infused .Q1H BETSEY Infusion Methylprednisolone Sodium Succinate 60 mg 12/06/24 07:43 12/06/24 08:39 Methylprednisolone Sod Succ 125 Mg/2 Ml Vial IVPUSH 12/06/24 07:44 60 mg ONCE ONE Administration Medical Decision Making Medical Decision Making MDM Narrative: 64 yo female with PMH of CHF, pulm HTN, pneumonia, DM, polycythemia, TENISHA, RA, ulcerative colitis, sjogrens, arthritis, chronic left leg edema, acute on chronic resp failure - on 4L NC daily now here with c/o worsening orthopnea, dyspnea, L sided chest pain and leg edema. At this time labs, IV steroids, neb therapy, IV doxy for COPD, ddimer given recent negative DVT study and CTA for similar complaints. She is low to mod probability. She has reported facial numbness but there is no findings on exam and her NIH is 0 - will obtain CT dry of head given NIH of 0 and reported only tingling to L side of face. She is not requiring more O2 and is not labored on arrival. Differential Diagnosis Differential Diagnoses: The differential diagnosis associated with the presentation includes viral syndrome, CHF exacerbation, COPD, pneumonia, low to mod VTE - given recent DVT study and CTA will start with ddimer - LLE is chronic Admission/Observation Consideration of admission/observation: Escalation of care including admission/observation considered ddimer negative doubt PE DVT study negative no pneumonia on chest xray troponin, BNP, EKG reassuring no increased O2 use, repeat VBG stable will ambulate and assess. patient had a prolonged ED course now 6 hours no change in VBG but she is not at baseline. Will admit for further workup Consult Healthcare Provider Management of the patient was discussed with: Hospitalist (will admit) Lab Data MDM Lab Attestation statement: I reviewed the patient's lab results. lactic acidosis due to albuterol use and not infection or severe sepsis repeat VBG stable her lactic acid is increasing due to albuterol and not infection or severe sepsis 12/06/24 08:14 12/06/24 08:14 Labs: Lab Results 12/06/24 12/06/24 12/06/24 Range/Units 08:14 08:21 09:37 WBC 11.3 H (4.8-10.8) X10*3/uL RBC 5.63 H (4.20-5.50) X10*6/uL Hgb 14.9 (12.0-16.0) g/dl Hct 47.1 H (37.0-47.0) % MCV 83.7 (80.0-98.0) fL MCH 26.5 L (27.0-33.0) pg MCHC 31.6 (31.0-35.0) g/dl RDW 18.5 H (11.0-16.0) % Plt Count 282 D (160-400) X10*3/uL MPV 10.4 (9.4-12.3) fL Immature Gran % (Auto) 1.3 H (0.0-0.4) % Neut % (Auto) 83.1 H (45-73) % Lymph % (Auto) 11.8 L (20-40) % [place] % (Auto) 3.0 (2-11) % Eos % (Auto) 0.2 (0-4) % Baso % (Auto) 0.6 (0-2) % Lymph # (Auto) 1.3 (1.2-4.9) X10*3/uL [place] # (Auto) 0.3 (0.1-1.2) X10*3/uL Eos # (Auto) 0.0 (0.0-0.4) X10*3/uL Baso # (Auto) 0.1 (0.0-0.2) X10*3/uL Abs Immat Gran (auto) 0.15 H (0.00-0.03) X10*3/uL Absolute Neuts (auto) 9.4 H (2.0-8.3) x10*3/uL Absolute Nucleated RBC 0.000 (0.0-0.012) X10*3/uL Nucleated RBC % (auto) 0.0 (0.0-0.2) /100WBC D-Dimer High Sensitivty 167 NG/ML VBG pH 7.43 (7.32-7.43) VBG pCO2 44 mmHg VBG pO2 96 mmHg VBG HCO3 29 H (22-26) mmol/L VBG O2 Saturation 99.0 % VBG Base Excess 4.5 mmol/L Sodium 133 L (135-145) mmol/L Potassium 5.2 H D (3.3-5.1) mmol/L Chloride 98 (96-108) mmol/L Carbon Dioxide 23 (22-29) mmol/L Anion Gap 17 (12-20) BUN 14 (9-16) mg/dL Creatinine 0.59 (0.5-1.4) mg/dL Estim Creat Clear Calc 107.9 Estimated GFR > 60 Random Glucose 335 H (60-115) mg/dL Lactic Acid 2.8 H* (0.5-2.0) mmol/L Lactic Acid F/U @ 2Hr (0.5-2.0) mmol/L Lactic Acid F/U @ 4Hr (0.5-2.0) mmol/L Calcium 8.7 (8.4-10.2) mg/dL Magnesium 1.7 (1.6-2.6) mg/dL Total Bilirubin 0.3 (0.0-1.0) mg/dL Direct Bilirubin 0.1 (0.0-0.5) mg/dL AST 23 (5-31) U/L ALT 10 (0-31) U/L Alkaline Phosphatase 71 (39-117) U/L Ammonia (13-55) umol/L Troponin I High Sens 3.0 D (<3.5-17.0) ng/L C-Reactive Protein 0.92 H (< or = 0.50) mg/dL NT-Pro-B Natriuret Pep 219.2 (<300) pg/mL Total Protein 6.7 (6.5-8.0) g/dL Albumin 3.7 (3.5-5.0) g/dL Lipase 10 (8-78) U/L Procalcitonin 0.02 ng/mL COVID-19 (MONSERRAT) Negative (Negative) COVID-19 Clin Com See Note Influenza Type A (RUTH ANN) Negative (Negative) Influenza Type B (RUTH ANN) Negative (Negative) Influenza A & B Note See Note 12/06/24 12/06/24 12/06/24 Range/Units 10:38 10:41 13:12 WBC (4.8-10.8) X10*3/uL RBC (4.20-5.50) X10*6/uL Hgb (12.0-16.0) g/dl Hct (37.0-47.0) % MCV (80.0-98.0) fL MCH (27.0-33.0) pg MCHC (31.0-35.0) g/dl RDW (11.0-16.0) % Plt Count (160-400) X10*3/uL MPV (9.4-12.3) fL Immature Gran % (Auto) (0.0-0.4) % Neut % (Auto) (45-73) % Lymph % (Auto) (20-40) % [place] % (Auto) (2-11) % Eos % (Auto) (0-4) % Baso % (Auto) (0-2) % Lymph # (Auto) (1.2-4.9) X10*3/uL [place] # (Auto) (0.1-1.2) X10*3/uL Eos # (Auto) (0.0-0.4) X10*3/uL Baso # (Auto) (0.0-0.2) X10*3/uL Abs Immat Gran (auto) (0.00-0.03) X10*3/uL Absolute Neuts (auto) (2.0-8.3) x10*3/uL Absolute Nucleated RBC (0.0-0.012) X10*3/uL Nucleated RBC % (auto) (0.0-0.2) /100WBC D-Dimer High Sensitivty NG/ML VBG pH 7.39 (7.32-7.43) VBG pCO2 42 mmHg VBG pO2 83 mmHg VBG HCO3 26 (22-26) mmol/L VBG O2 Saturation 98.0 % VBG Base Excess 0.9 mmol/L Sodium (135-145) mmol/L Potassium (3.3-5.1) mmol/L Chloride (96-108) mmol/L Carbon Dioxide (22-29) mmol/L Anion Gap (12-20) BUN (9-16) mg/dL Creatinine (0.5-1.4) mg/dL Estim Creat Clear Calc Estimated GFR Random Glucose (60-115) mg/dL Lactic Acid (0.5-2.0) mmol/L Lactic Acid F/U @ 2Hr 2.7 H* (0.5-2.0) mmol/L Lactic Acid F/U @ 4Hr 3.6 H* (0.5-2.0) mmol/L Calcium (8.4-10.2) mg/dL Magnesium (1.6-2.6) mg/dL Total Bilirubin (0.0-1.0) mg/dL Direct Bilirubin (0.0-0.5) mg/dL AST (5-31) U/L ALT (0-31) U/L Alkaline Phosphatase (39-117) U/L Ammonia (13-55) umol/L Troponin I High Sens (<3.5-17.0) ng/L C-Reactive Protein (< or = 0.50) mg/dL NT-Pro-B Natriuret Pep (<300) pg/mL Total Protein (6.5-8.0) g/dL Albumin (3.5-5.0) g/dL Lipase (8-78) U/L Procalcitonin ng/mL COVID-19 (MONSERRAT) (Negative) COVID-19 Clin Com Influenza Type A (RUTH ANN) (Negative) Influenza Type B (RUTH ANN) (Negative) Influenza A & B Note 12/06/24 12/06/24 Range/Units 13:17 14:27 WBC (4.8-10.8) X10*3/uL RBC (4.20-5.50) X10*6/uL Hgb (12.0-16.0) g/dl Hct (37.0-47.0) % MCV (80.0-98.0) fL MCH (27.0-33.0) pg MCHC (31.0-35.0) g/dl RDW (11.0-16.0) % Plt Count (160-400) X10*3/uL MPV (9.4-12.3) fL Immature Gran % (Auto) (0.0-0.4) % Neut % (Auto) (45-73) % Lymph % (Auto) (20-40) % [place] % (Auto) (2-11) % Eos % (Auto) (0-4) % Baso % (Auto) (0-2) % Lymph # (Auto) (1.2-4.9) X10*3/uL [place] # (Auto) (0.1-1.2) X10*3/uL Eos # (Auto) (0.0-0.4) X10*3/uL Baso # (Auto) (0.0-0.2) X10*3/uL Abs Immat Gran (auto) (0.00-0.03) X10*3/uL Absolute Neuts (auto) (2.0-8.3) x10*3/uL Absolute Nucleated RBC (0.0-0.012) X10*3/uL Nucleated RBC % (auto) (0.0-0.2) /100WBC D-Dimer High Sensitivty NG/ML VBG pH 7.39 (7.32-7.43) VBG pCO2 46 mmHg VBG pO2 159 mmHg VBG HCO3 28 H (22-26) mmol/L VBG O2 Saturation 99.0 % VBG Base Excess 2.8 mmol/L Sodium (135-145) mmol/L Potassium (3.3-5.1) mmol/L Chloride (96-108) mmol/L Carbon Dioxide (22-29) mmol/L Anion Gap (12-20) BUN (9-16) mg/dL Creatinine (0.5-1.4) mg/dL Estim Creat Clear Calc Estimated GFR Random Glucose (60-115) mg/dL Lactic Acid (0.5-2.0) mmol/L Lactic Acid F/U @ 2Hr (0.5-2.0) mmol/L Lactic Acid F/U @ 4Hr (0.5-2.0) mmol/L Calcium (8.4-10.2) mg/dL Magnesium (1.6-2.6) mg/dL Total Bilirubin (0.0-1.0) mg/dL Direct Bilirubin (0.0-0.5) mg/dL AST (5-31) U/L ALT (0-31) U/L Alkaline Phosphatase (39-117) U/L Ammonia 30 (13-55) umol/L Troponin I High Sens (<3.5-17.0) ng/L C-Reactive Protein (< or = 0.50) mg/dL NT-Pro-B Natriuret Pep (<300) pg/mL Total Protein (6.5-8.0) g/dL Albumin (3.5-5.0) g/dL Lipase (8-78) U/L Procalcitonin ng/mL COVID-19 (MONSERRAT) (Negative) COVID-19 Clin Com Influenza Type A (RUTH ANN) (Negative) Influenza Type B (RUTH ANN) (Negative) Influenza A & B Note Independent Interpretation I performed an independent interpretation of an: EKG, Plain X-Ray (no consolidation), Ultrasound (no DVT) and CT Scan (no acute findings) Interpretation: Rate: 86 Rhythm: NSR [place]: normal Normal P waves. Normal JAZLYN. Normal QRS complex. ST T wave : normal no MALATHI qTC: 421 prior studies: no acute ischemia The study has been interpreted contemporaneously by me. . Radiology Impression Discussion of test interpretation with radiology: I have reviewed the radiologist's reading. Independent Historian Clinical information obtained from an independent historian. History obtained from or confirmed by: EMS External Record Review External record reviewed: Inpatient record, Outpatient record, Prior outpatient labs and Prior outpatient radiology Critical Care Time Critical Care Time Critical Care Time: Yes Total Critical Care Time: 60 Attestation: Time is exclusive of separately billable procedures. Time includes: direct patient care, patient reassessment, coordination of patient care, interpretation of data (laboratory data, pulse oximetry, venous blood gases and chest xrays), review of patient's medical records, medical consultation and documentation of patient care. Procedures excluded from critical care time: electrocardiography. I attest to this time spent taking care of the patient Discharge Plan Discharge Clinical Impression: Leg edema, left, Acute exacerbation of chronic obstructive pulmonary disease, Encephalopathy Chest pain Qualifiers: Chest pain type: unspecified Qualified Code(s): R07.9 - Chest pain, unspecified Patient Disposition: Admitted As Inpatient Print Language: Martiniquais
--- NOTE | 2024-12-06 07:35 | ECG_ITS ---
Test Reason : sob Blood Pressure : */* mmHG Vent. Rate : 86 BPM Atrial Rate : 86 BPM P-R Int : 146 ms QRS Dur : 84 ms QT Int : 352 ms P-R-T Axes : 61 117 41 degrees QTcB Int : 421 ms Normal sinus rhythm Left posterior fascicular block Abnormal ECG When compared with ECG of 04-Nov-2024 08:41, No significant change was found Referred By: Lorraine Hammond Electronically Signed By: RA ROBERSON MD
--- NOTE | 2024-12-06 07:44 | ECG_ITS ---
Test Reason : CP Blood Pressure : */* mmHG Vent. Rate : 77 BPM Atrial Rate : 77 BPM P-R Int : 156 ms QRS Dur : 88 ms QT Int : 376 ms P-R-T Axes : 61 111 37 degrees QTcB Int : 425 ms Sinus rhythm with Premature supraventricular complexes Left posterior fascicular block Abnormal ECG When compared with ECG of 06-Dec-2024 07:46, Premature supraventricular complexes are now Present Referred By: Myah Hinojosa Electronically Signed By: RA ROBERSON MD
--- OUTSIDE RECORDS SUMMARY | 2024-12-06 07:58 | XMS_ITS | Clinical Summary ---
Author Organization [facility] Address [address] [place] [id number] Care Team Providers Care Ornamental Ironworker Name Role Phone Dottie Douglass MD Primary Care Provider [phone] Allergies Active Allergy Reactions Criticality Noted Date [...] (four) hours as needed. 5 Active butalbital-aspir [id number] ine (FioriNAL WITH CODEINE) [id number] MG capsule Take 1 capsule by mouth [...] Lung Cancer Screening (LDCT) 05/30/2011 RSV Vaccine 50 years and old er and Patients (1 - Risk 50-74 years 1-dose series) 05/30/2011 Influenza Vaccine 09/17/2024 Hemoglobin A1C Discontinued 03/24/2019 [...] Most Recently Relevant to Health Maintenance Insurance [facility] [employer] Advance Directives * Full Code (Latest Code Status on File) Date Activated Date Inactivated Comments 03/24/2019 5:36 AM Question Answer Comments Decision Thoroughly Discussed with: Patient * Full Code Date Activated Date Inactivated Comments 03/23/2019 9:33 AM 03/24/2019 5:36 AM Care Teams Ornamental Ironworker Relationship Specialty Start Date End Date Dottie Douglass MD PCP - General Internal Medicine 08/04/17
--- OUTSIDE RECORDS SUMMARY | 2024-12-06 07:58 | XMS_ITS | Patient Health Record ---
Author Organization [facility] Address [address] [place] [address] Care Team Providers Care Tire Retreader Name Role Phone MAYI GASPAR MD Primary [...] End Date Status Hyoscyamine Active Voltaren 75mg tab 1 tab orally qd Active Fiorinal 50-325-40 MG Capsule 2 caps Orally prn Active Voltaren 1 % Gel as directed Transdermal 75mg once qd Active Bactroban Active EpiPen Active Morphine Sulfate 30 MG Tablet 1 tablet as needed Orally TID Not-Taking/ PRN Nitrofurantoin 100mg Orally BID qd Not-Taking/ PRN Levaquin LEVA-mika bladder infection Not-Taking/ PRN Flexeril 5mg 1 tab bid prn Act henry Ammonium Lactate 12 % Lotion 1 application Externally Twice a day Active Loratadine 10 MG Tablet 1 tablet Orally Twice a day Active ibuprofen 800mg 1 tab Oral Act henry oxyCODONE HCl 5 MG Tablet 1 tablet as needed Orally TID; Duration: 30 days 03/14/2019 Unknown metFORMIN HCl ER 1000mg 1 tablet with evening meal Orally Once a day Active hydroCHLOROthiazide 200mg 1 tablet in the morning Once a day Not-Taking/ PRN Montelukast Sodium 10 MG Tablet 1 tablet Orally Once a day Active Lantus 60 units as directed Subcutaneous bid Not-Taking/ PRN Ventolin HFA 108 (90 Base) MCG/ACT Aerosol Solution 2 puffs as needed Inhalation prn Active diazePAM 2 MG Tablet 1 to 2 tabs Orally bid prn Not-Taking/ PRN Bactroban prn Active Plaquenil Not-Taking / PRN Zofran 1 tablet Orally prn Active HumaLOG KwikPen Acti ve Aspirin 325 MG Tablet 1 tablet Orally twice a day Active MAGnesium-Oxide 400 (241.3 Mg) MG Tablet 1 tablet with food Orally Once a day; Duration: 30 day(s) Active Pantoprazole Sodium 40 MG Tablet Delayed Release 1 tablet Orally Once a day Active Morphine Sulfate ER 30 MG Tablet Extended Release 1 tablet Orally every 12 hrs; Duration: 30 days 06/28/2020 Active Hyoscyamine 0.125mg prn Active oxyCODONE HCl 10 MG Tablet 1 tablet Orally BID; Duration: 30 days 06/28/2020 Active Gabapentin 300 MG Capsule 1 capsule Orally Once a day; Duration: 30 day(s) Active Meclizine HCl 25 MG Tablet 1 tablet as needed Orally Once a day Active Hydroxychloroquine Sulfate 200 MG Tablet as directed Orally Active Social History Tobacco Use: Social History Observation Description Date Details (start date - stop date) Unknown Social History Drugs/Alcohol: Social Info Question Answer Notes Caffeine Intake: more than 4 cups per day Household: Social Info Question Answer Notes Household Marital status: Number of adults in household: 3 Tobacco Use: Social Info Question Answer Notes Tobacco Use/Smoking Are you a Uses tobacco in other forms Additional Findings: Tobacco User Pipe smoker Problems Problem Type SNOMED Code ICD Code Onset Dates Problem Status W/U Status Risk Notes Problem Lumbosacral spondylosis without myelopathy (36354577) Spondylosis without myelopathy or radiculopathy, lumbar region (M47.816) Active confirmed Problem High risk drug monitoring status (591012466) technician terminal and repeater (current) use of opiate analgesic (Z79.891) Active confirmed Plan Of Treatment Pending Test Test Name Order Date COCAINE QUANTITATIVE 05/07/2022 OXYCODONE QUANTITATIVE 05/07/2022 BARBITURATES QUANTITATIVE 05/07/2022 METHADONE QUANTITATIVE 05/07/2022 MDMA (ECSTASY) QUANTITATIVE 05/07/2022 TRAMADOL QUANTITATIVE 05/07/2022 FENTANYL QUANTITATIVE 05/07/2022 BUPRENORPHINE QUANTITATIVE 05/07/2022 BENZODIAZEPINE QUANTITATIVE 05/07/2022 OPIATES QUANTITATIVE 05/07/2022 MUSCLE RELAXANT, QUANTITATIVE 05/07/2022 Amphetamine 05/07/2022 LAB REPORT 05/07/2022 [facility] [place] [facility] 05/07/2022 Insurance Providers Payer Name Payer Address Payer Phone Subscriber Number Group Number Insured Name Patient Relationship to Insured Coverage Start Date Coverage End Date [facility] BlueCard [address] [place] [address] [id number] BRITNEY Keane Spouse - patient is the [...]
--- OUTSIDE RECORDS SUMMARY | 2024-12-06 07:58 | XMS_ITS | Clinical Summary ---
Author Organization [facility] Address [address] [place] [address] Care Team Providers Care Water And Sewer Systems Superintendent Name Role Phone Dottie Douglass MD Primary Care Provider [phone] Allergies Active Allergy Reactions Criticality Noted Date [...] T PO BID 0 06/17/19 19 Active OneIDTOUCH ULTRA CONTROL solution See admin instructions. 0 [...] Date Smoking Tobacco: Every Day Cigarettes 1 51.8 Started: 1972 Pipe Smokeless Tobacco: Never Comments:PIPE [...] complete this topic Insurance [employer] Care Teams Water And Sewer Systems Superintendent Relationship Specialty Start Date End Date Dottie Douglass MD [address] [address] PCP - General Internal Medicine 10/13/20
--- OUTSIDE RECORDS SUMMARY | 2024-12-06 07:58 | XMS_ITS | Encounter Summary ---
Author Organization [facility] Address [address] [place] [address] Care Team Providers Care In Home Sales Representative Name Role Phone Dottie Douglass MD Primary Care Provider [phone] Encounter Details Date Type Department Care Team (Late st Contact Info) Description 01/02/2018 Scanned Document [facility] [place] [address] [facility] [address] [place] [address] Nito Epperson MD [address] [place] [address] [address] [place] [address] Social History Tobacco Use Types Packs/Day Years [...] on filedocumented in this encounter Care Teams In Home Sales Representative Relationship Specialty Start Date End Date Dottie Douglass MD PCP - General Internal Medicine 08/04/17 documented as of this encounter
--- OUTSIDE RECORDS SUMMARY | 2024-12-06 07:58 | XMS_ITS | Clinical Summary ---
Author Organization [facility] Address [address] [place] [address] Care Team Providers Care Solid Plasterer Name Role Phone Dottie Douglass MD Primary Care Provider [phone] Allergies Active Allergy Reactions Criticality Noted Date Comments Varenicline 07/03/2013 Dihydroergocristine 07/03/2013 Gentamicin 07/03/2013 Haloperidol Lactate 07/03/2013 Sumatriptan 07/03/2013 Tape 07/15/2014 Ketorolac Tromethamine 07/03/2013 Acetaminophen 07/03/2013 Tramadol 07/03/2013 Medications Medication Sig Dispensed Refills Start Date End Date Status Loratadine 10 MG CAPS Take by mouth. 0 Active Morphine Sulfate ER (MS CONTIN) 15 MG TBCR Take 15 mg by mouth every 12 (twelve) hours. 0 Active betamethasone dipropionate (DIPROSONE) 0.05 % cream Apply topically 2 (two) times a day. 0 Active mupirocin (BACTROBAN) 2 % ointment Apply topically 3 (three) times a day. 0 Active cyclobenzaprine (FLEXERIL) 10 MG tablet Take 10 mg by mouth 3 (three) times a day as needed for muscle spasms. 0 Active ciprofloxacin (CIPRO) 500 MG tablet Take 500 mg by mouth 2 (two) times a day. 0 Active meclizine (ANTIVERT) 12.5 MG tablet Take 1 tablet (12.5 mg total) by mouth 3 (three) times a day as needed. 30 tablet 0 07/03/2013 Active insulin aspart (NOVOLOG) 100 UNIT/ML injectionIndication s:Type II or unspecified type diabetes mellitus without mention of complication, not stated as uncontrolled Inject 15-25 Units under the skin See admin instructions. 15 units with breakfast, 18 units with lunch, and 20-25 units with supper. 10 units with a small breakfast. Add 4 units If sugar greater than 200 20 mL 10 06/28/2014 Active ONETOUCH DELICA LANCETS 33G MISC Testing 4 x daily 400 each 3 07/12/2014 Active albuterol (PROVENTIL HFA;VENTOLIN HFA) 108 (90 BASE) MCG/ACT inhaler Inhale 2 puffs into the lungs every 6 (six) hours as needed for wheezing. 1 Inhaler 2 08/09/2014 Active insulin glargine (LANTUS) 100 UNIT/ML injectionIndication s:Type II or unspecified type diabetes mellitus without mention of complication, not stated as uncontrolled Inject 60 Units under the skin daily. 200 mL 3 08/11/2014 Active phenazopyridine (PYRIDIUM) 200 MG tablet Take 1 tablet (200 mg total) by mouth 3 (three) times a day as needed for pain. 60 tablet 3 08/16/2014 Active butalbital-aspirin- caffeine (FIORINAL) 50-325-40 MG capsule Take by mouth. 0 Active oxyCODONE (OXY-IR) 5 MG capsule Take by mouth. 0 Active Diclofenac Sodium (VOLTAREN) 1 % GEL topical Place onto the skin. 0 11/23/2013 Active cyclobenzaprine (FLEXERIL) 10 MG tablet Take by mouth. 0 10/05/2012 Active glimepiride (AMARYL) 4 MG tablet Take by mouth. 0 Active hyoscyamine (ANASPAZ,LEVSIN) 0.125 MG tablet Take by mouth. 0 Activ e lidocaine (LIDODERM) 5 % Lidoderm 5 % External Patch Quantity: 0; Refills: 0 Active 0 Active morphine (MSIR) 15 MG tablet Take by mouth. 0 Active Insulin Syringe-Needle U-100 (B-D INS SYR ULTRAFINE 1CC/30G) 30G X 1/2 1 ML MISC BD Insulin Syringe Ultrafine 30G X 1/2 1 ML Miscellaneous USE TO INJECT INSULIN 4 TIMES A DAY Quantity: 400; Refills: 3 Roberto Carlos Yañez M.D.; Started 28-May-2013 Active 0 05/28/2013 Active meloxicam (MOBIC) 15 MG tablet Meloxicam 15 MG Oral Tablet TAKE 1 TABLET DAILY. Quantity: 30; Refills: 1 Nehemiah Candelaria MD; Started 28-Sep-2013 Active 0 09/28/2013 Active EPIPEN 2-EYAL 0.3 MG/0.3ML SOAJ 0 08/10/2014 Active metFORMIN (GLUCOPHAGE) 1000 MG tablet 0 08/16/2014 Active oxyCODONE (ROXICODONE) 5 MG immediate release tablet 0 07/30/2014 Active glucose blood (ONE TOUCH ULTRA TEST) test strip OneTouch Ultra Blue In Vitro Strip pt testing 6 times daily. Dx 250.02 600 each 3 09/30/2014 Active mupirocin (BACTROBAN) 2 % cream APPLY AND GENTLY MASSAGE INTO AFFECTED AREAS TWICE DAILY 30 g 2 10/03/2014 Active ondansetron (ZOFRAN) 8 MG tablet TAKE 1 TABLET BY MOUTH EVERY 6 HOURS NEEDED 20 tablet 2 11/04/2014 Active montelukast (SINGULAIR) 10 MG tablet 0 11/29/2014 Active insulin lispro (HumaLOG) injection 100 units/mL Inject 20 Units under the skin 3 (three) times a day with meals. 10 mL 0 02/24/2015 Active pantoprazole (PROTONIX) 40 MG tablet take 1 tablet by mouth once daily 30 tablet 3 03/13/2015 Active cyclobenzaprine (FLEXERIL) 10 MG tablet take 1 tablet by mouth at bedtime 30 tablet 2 03/17/2016 Active hydroxychloroquine (PLAQUENIL) 200 MG tablet take 1 tablet by mouth once daily 30 tablet 1 04/12/2016 Active Active Problems Problem Noted Date Diagnosed Date Sjogren's disease 01/23/2016 Primary osteoarthritis involving multiple joints 12/30/2014 DISH (diffuse idiopathic skeletal hyperostosis) 12/30/2014 Allergic rhinitis due to other allergen 08/26/19 15 Onychomycosis 07/28/2014 Osteoarthrosis involving multiple sites 07/23/19 15 Arthritis 07/19/2014 COPD, moderate 07/19/2014 Smokes tobacco daily 07/19/2014 Diabetes 07/19/2014 Accumulation of fluid in tissues 07/19/2014 Abnormal laboratory test 07/19/2014 Blood pressure elevated 07/19/2014 Elevated hemoglobin 07/19/2014 Abnormal LFTs 07/19/2014 Routine general medical exam ination at a health care facility 07/19/2014 Fibrositis 07/19/2014 Fracture, stress, metatarsal 07/19/2014 Boil 07/19/2014 Hypertriglyceridemia 07/19/2014 Ingrowing nail 07/19/2014 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 LBP (low back pain) 07/19/2014 Lymphedema of leg 07/19/2014 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 07/19/2014 Extreme obesity 07/19/2014 Flu vaccine need 07/19/2014 Fungal infection of nail 07/19/2014 Arthritis, degenerative 07/19/2014 Localized adiposity 07/19/2014 Panaritium of toe 07/19/2014 Infected cuticle 07/19/2014 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 07/19/2014 Achrochordon 07/19/2014 Pain in toe 07/19/2014 Type II or unspecified type diabetes mellitus without mention of complication, not stated as uncontrolled 06/28/2014 Family History Medical History Relation Name Comments Diabetes Mother Heart disease Mother Breast cancer Other Maternal GREAT AUNT BRCA 1/2 Neg Hx Colon cancer Neg Hx Endometrial cancer Neg Hx Ovarian cancer Neg Hx Relation Name Status Comments Mother Other Social History Tobacco Use Types Packs/Day Years Used Date Smoking Tobacco: Heavy Smoker Cigarettes 1 Smokeless Tobacco: Never Tobacco Cessation:Ready to Q uit: No; Counseling Given: Yes Comments:Began smoking at age 13, continues to smoke 1 ppd, recent decrease from 3.5 packs per day Alcohol Use Standard Drinks/Week Comments Yes 0 (1 standard drink = 0.6 oz pur e alcohol) Sex and Gender Information Value Date Recorded Sex Assigned at Not on file Gender Identity Not on file Sexual Orientation Not on file Last Filed Vital Signs Vital Sign Reading Time Taken Comments Blood Pressure 128/88 07/23/2016 11:30 AM EDT Pulse 68 07/23/2016 11:30 AM EDT Temperature 37.2 C (99 F) 07/15/2014 11:47 AM EDT Respiratory Rate 18 07/03/2013 8:56 PM EDT Oxygen Saturation 97% 08/25/2014 1:08 PM EDT Inhaled Oxygen Concentration - - Weight 104.3 kg (230 lb) 07/23/2016 11:30 AM EDT Height 162.6 cm (5' 4 ) 07/23/2016 11:30 AM EDT Body Mass Index 39.48 07/23/2016 11:30 AM EDT Plan of Treatment Health Maintenance Due Date Last Done Comments Hepatitis C Screening 1961 COVID-19 Vaccine (#1) 1966 Pneumococcal Vaccine (1 of 2 - PCV) 05/30/1967 Depression Screening 1973 Preventative Health Evaluation 05/30/1979 DTap / Tdap / Td (1 - Tdap) 1980 Shingrix-Zoster Vaccine (1 o f 2) 1980 Cervical Cancer Screening (Pap Smear) 1982 Colon Cancer Screening (Colonoscopy) 2006 Breast Cancer Screening (Mammogram) 07/12/2016 07/12/2014, 07/08/2013 RSV Adult > 60+ Yrs or (1 - Risk 60-74 years 1-dose series) 2021 Influenza Vaccine (#1) 2024 Hepatitis B Vaccines Aged Out No long er eligible based on patient's age to complete this topic RSV Ped < 20 months Aged Out No longe r eligible based on patient's age to complete this topic Care Teams Solid Plasterer Relationship Specialty Start Date End Date Dottie Douglass MD PCP - General Internal Medicine 07/08/16
--- OUTSIDE RECORDS SUMMARY | 2024-12-06 07:58 | XMS_ITS | Encounter Summary ---
Author Organization [facility] Address [address] [place] [address] Care Team Providers Care Medical Art Therapist Name Role Phone Dottie Douglass MD Primary Care Provider Encounter Details Date Type Department Care Team (Late st Contact Info) Description 09/25/2017 Scanned Document [facility] Re[facility] [address] [place] [address] Nito Epperson MD [address] [facility] [address] [place] [address] Social History Tobacco Use Types Packs/Day Years [...] on filedocumented in this encounter Care Teams Medical Art Therapist Relationship Specialty Start Date End Date Dottie Douglass MD PCP - General Internal Medicine 08/04/17 documented as of this encounter
[2024-12-06] MEDS: Albuterol Sulfate 5 MG, Albuterol Sulfate (0.083%) 2.5 MG 7.5 MG INHALE (08:03)
[2024-12-06 08:21] LABS: MANUAL DIFF FLAG NO
[2024-12-06 08:22] LABS: Venous Blood Gas Refer to POC result
[2024-12-06 08:24] LABS: VBG HCO3 29 mmol/L (22-26); VBG O2 % Saturation 99.0 %
[2024-12-06 08:31] LABS: Hematocrit 47.1 % (37.0-47.0); Hemoglobin 14.9 g/dl (12.0-16.0); Imm Gran Abs Auto 0.15 X10*3/uL (0.00-0.03); Imm Gran Pct Auto 1.3 % (0.0-0.4); Lymphocytes Absolute Auto 1.3 X10*3/uL (1.2-4.9); Mean Corpuscular HGB Conc 31.6 g/dl (31.0-35.0); Mean Corpuscular Hemoglobin 26.5 pg (27.0-33.0); Mean Corpuscular Volume 83.7 fL (80.0-98.0); NRBC Abs Auto 0.000 X10*3/uL (0.0-0.012); NRBC Pct Auto 0.0 /100WBC (0.0-0.2); Platelet Count 282 X10*3/uL (160-400); Red Blood Count 5.63 X10*6/uL (4.20-5.50); White Blood Count 11.3 X10*3/uL (4.8-10.8)
[2024-12-06 08:33] LABS: D Dimer High Sensitivity 167 NG/ML
[2024-12-06 08:41] LABS: COVID-19 Test Negative (Negative); IDNOW Serial# 08D9AD1C
[2024-12-06 08:43] LABS: NT Pro B Type Natriuretic Pept 219.2 pg/mL (<300)
[2024-12-06 08:44] LABS: Troponin-I High Sensitivity 3.0 ng/L (<3.5-17.0)
[2024-12-06 08:46] LABS: Alanine Aminotransferase 10 U/L (0-31); Albumin Level 3.7 g/dL (3.5-5.0); Alkaline Phosphatase 71 U/L (39-117); Anion Gap 17 (12-20); Aspartate Amino Transferase 23 U/L (5-31); Blood Urea Nitrogen 14 mg/dL (9-16); Calcium 8.7 mg/dL (8.4-10.2); Carbon Dioxide 23 mmol/L (22-29); Chloride 98 mmol/L (96-108); Creatinine Clr Calc Pharmacy 107.9; Estimated Glomerular Filt Rate > 60; Lipase 10 U/L (8-78); Magnesium 1.7 mg/dL (1.6-2.6); Potassium 5.2 mmol/L (3.3-5.1); Sodium 133 mmol/L (135-145); Total Protein 6.7 g/dL (6.5-8.0)
[2024-12-06 08:59] LABS: Procalcitonin 0.02 ng/mL
[2024-12-06 09:57] LABS: IDNOW Serial# 55D5AD1C; Influenza B2 Negative (Negative)
[2024-12-06 10:21] LABS: Reflex Lactate? Lactic Acid Added
[2024-12-06 10:45] LABS: Venous Blood Gas Refer to POC result
[2024-12-06 10:45] LABS: VBG HCO3 26 mmol/L (22-26); VBG O2 % Saturation 98.0 %
[2024-12-06 11:03] LABS: ~Lactic Acid-LAB USE ONLY 2.7 mmol/L (0.5-2.0)
[2024-12-06 12:42] LABS: Reflex Lactate? 2 Y
[2024-12-06 13:20] LABS: VBG HCO3 28 mmol/L (22-26); VBG O2 % Saturation 99.0 %
[2024-12-06 13:20] LABS: Venous Blood Gas Refer to POC result
[2024-12-06 13:40] LABS: ~Lactic Acid-LAB USE ONLY 3.6 mmol/L (0.5-2.0)
--- NOTE | 2024-12-06 14:06 | PM.IMHP ---
History of Present Illness Date of Service: 12/06/24 Chief Complaint: CP and SOB/CARDOZA Patient is a 64-year-old female with a past medical history significant for oxygen-dependent COPD, insulin-dependent diabetes, Sjogren's, fibromyalgia, chronic opioid use, celiac disease, ulcerative colitis, Lin's esophagus, restless leg syndrome, TENISHA on CPAP, class 1 obesity, ?left leg lymphedema, and new diagnosis cardiomyopathy experienced chest pain and difficulty breathing, which had become a new normal for the patient. Patient reports that since last morning, she continued to have worsening chest pain and difficulty breathing which is similar to her prior. She reports that she is now recovering from pneumonia last month and she completed antibiotic treatment. From prior admission nearly a month ago, it appears that the patient has advanced COPD uses 4 L oxygen, continues to smoke and is likely now steroid dependent. She also was likely deemed to have micro aspirations worsening her clinical condition and with Sjogren's, prognostication was deemed poor. Persistent lactic acidemia-likely secondary to her chronic hypercapnic hypoxic respiratory status, less likely sepsis Workup in the ED revealed normal pH, no hypercarbia, however she continued to be extremely weak despite IV steroids and doxycycline and was deemed unfit to go home. Hence admission is being done for AE COPD. Patient's was at the bedside during the entire conversation. Extensive code status discussion was held for more than 35 minutes and I explained to the patient about her guarded prognosis and she elected to be DNR DNI. Did not want to be hooked to machines. She is being admitted for a E COPD, swallow eval and we will be treated with broad-spectrum antibiotics. 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 Osteoporosis Sjogrens syndrome Rheumatoid arthritis Osteoarthritis Chronic, continuous use of opioids GERD (gastroesophageal reflux disease) Hx of difficult intubation Smoker COPD (chronic obstructive pulmonary disease) Asthma Polycythemia Boils Eczema Bursitis Disc degeneration Sleep apnea Diabetes Fibromyalgia Family History Mother Polycythemia TIA (transient ischemic attack) Father Heart attack Other No family history of cancer Surgical History History of esophagogastroduodenoscopy (EGD) Hx of tonsillectomy History of surgical removal of pilonidal cyst Hx of plastic surgery Hx of hysterectomy Hx of cholecystectomy Hx of appendectomy History of colonoscopy History of bladder suspension procedure History of removal of cyst Social History Household Members: Spouse Housing: House Are you a primary pet care assistant to a significant other at home: No Do you presently have visiting nurse or other home services: Yes Alcohol intake: never Comment: press call light appropriately Patient Tobacco Use Status: Current everyday Tobacco user Tobacco use type: Cigarette Cigarette Packs Per Day: 1 Cigarettes Per Day: 20.0 Years Smoked: 51 Smoked in Last 30 Days: Yes e-Cigarette/Vaping Use: Never Used Second Hand Smoke Exposure: No Use of substances other than those prescribed or required for medical reasons: No Advance Directives: Yes Advance Directives on File: Yes Advance Directives Date on File: 12/24/19 service: No Current occupational status: retired 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 Cognitive needs: No Hearing needs: No Vision needs: No Meds Allergies Allergy/AdvReac Type Severity Reaction Status Date / Time atorvastatin (From LIPITOR) Allergy Severe Difficulty Verified 12/06/24 07:44 Breathing azithromycin (AZITHROMYCIN) Allergy Severe Difficulty Verified 12/06/24 07:44 Breathing mite-Dermatophagoides Allergy Severe Difficulty Verified 12/06/24 07:44 farinae, vicente (dust mite - Breathing [facility]) sumatriptan (From IMITREX) Allergy Severe Difficulty Verified 12/06/24 07:44 Breathing house dust Allergy Mild Unknown Verified 12/06/24 07:44 acetaminophen (From TYLENOL) Allergy Unknown Itching Verified 12/06/24 07:44 adhesive tape (ADHESIVE TAPE) Allergy Unknown Rash Verified 12/06/24 07:44 gentamicin (GENTAMICIN) Allergy Unknown Rash Verified 12/06/24 07:44 adalimumab (From Humira) Allergy Rash Verified 12/06/24 07:44 erythromycin base Allergy Unknown Verified 12/06/24 07:44 haloperidol (From HALDOL) AdvReac Unknown GI Issues Verified 12/06/24 07:44 ketorolac (From TORADOL) AdvReac Unknown Muscle Verified 12/06/24 07:44 cramps prasterone (DHEA) (From DHEA) AdvReac Unknown Cardiac Verified 12/06/24 07:44 issues varenicline (From CHANTIX) AdvReac Unknown Seizure Verified 12/06/24 07:44 ipratropium (From Atrovent) AdvReac Migraine Verified 12/06/24 07:44 Home Medications ?Medication ?Instructions ?Recorded ?Confirmed ?Last Taken ?Type aspirin 325 mg tablet 325 mg PO BID@0030,1230 09/27/20 12/06/24 12/05/24 History hydroxychloroquine 200 mg tablet 200 mg PO DAILY@0030 07/27/24 12/06/24 12/05/24 History losartan 25 mg tablet 25 mg PO DAILY@0030 07/27/24 12/06/24 12/05/24 History magnesium oxide 400 mg (241.3 mg 400 mg PO DAILY@0030 07/27/24 12/06/24 12/05/24 History magnesium) tablet metformin 1,000 mg tablet 1,000 mg PO BID@0030,1230 07/27/24 12/06/24 12/05/24 History pramipexole 0.25 mg tablet 1 mg PO DAILY@0 07/27/24 12/06/24 12/05/24 History albuterol sulfate 90 mcg/actuation 2 puff inhalation Q6H PRN wheezing 09/13/24 12/06/24 12/05/24 History aerosol inhaler montelukast 10 mg tablet 10 mg PO BEDTIME@0030 09/13/24 12/06/24 12/05/24 History pantoprazole 40 mg tablet,delayed 40 mg PO DAILY@0630 09/13/24 12/06/24 12/05/24 History release tiotropium 2.5 mcg-olodaterol 2.5 2 puff inhalation DAILY@1230 09/13/24 12/06/24 12/05/24 History mcg/actuation mist for inhalation (Stiolto Respimat) furosemide 40 mg tablet (Lasix) 40 mg PO DAILY@1230 09/28/24 12/06/24 12/05/24 History insulin glargine-yfgn 100 unit/mL 40 unit subcut DAILY 11/04/24 12/06/24 12/05/24 History subcutaneous solution insulin lispro 100 unit/mL 25 unit subcut TIDAC 11/04/24 12/06/24 12/05/24 History subcutaneous pen lidocaine 4 % topical patch 3 patch transdermal DAILY PRN Pain 11/04/24 12/06/24 12/05/24 History (Lidocaine Pain Relief) nicotine (polacrilex) 4 mg buccal 4 mg buccal Q4H PRN nicotine 11/04/24 12/06/24 12/05/24 History lozenge cravings nystatin 100,000 unit/mL oral 5 ml PO DAILY 11/04/24 12/06/24 12/05/24 History suspension One touch ultra test strips 11/15/24 Unknown History baclofen 10 mg tablet 10 mg PO BID PRN Pain 12/06/24 12/06/24 12/05/24 History Physical Exam Vital Signs and Narrative: Vital Signs: Last Vital Signs Temp 98.0 F 12/06/24 07:35 Pulse 84 12/06/24 08:33 Resp 19 12/06/24 11:36 BP 111/50 L 12/06/24 08:33 Pulse Ox 92 12/06/24 08:33 O2 Del Method Nasal Cannula 12/06/24 08:33 O2 Flow Rate 2 12/06/24 08:33 Oxygen Flow Rate 3 12/06/24 07:35 BMI result Body Mass Index 35.2 General: AOx3, appeared to be in respiratory distress, work of breathing, accessory muscle use, had a CPAP machine at the bedside, reports being CPAP dependent but does not tolerated, Resp: Bilateral crackles, rhonchi, increased work of breathing, expiratory and inspiratory wheezes CVS: Tachycardia, JVD GI: +BS, NT, no distention Skin: Warm, dry Neuro: Motor grossly intact bilaterally Extremities: No edema Psych: Appropriate affect Results Labs 12/06/24 08:14 12/06/24 08:14 Labs: Laboratory Results - last 24 hr 12/06/24 12/06/24 12/06/24 08:14 08:21 09:37 MCV 83.7 MCH 26.5 L MCHC 31.6 RDW 18.5 H Plt Count 282 D MPV 10.4 Immature Gran % (Auto) 1.3 H Neut % (Auto) 83.1 H Lymph % (Auto) 11.8 L [place] % (Auto) 3.0 Eos % (Auto) 0.2 Baso % (Auto) 0.6 Lymph # (Auto) 1.3 [place] # (Auto) 0.3 Eos # (Auto) 0.0 Baso # (Auto) 0.1 Abs Immat Gran (auto) 0.15 H Absolute Neuts (auto) 9.4 H Absolute Nucleated RBC 0.000 Nucleated RBC % (auto) 0.0 D-Dimer High Sensitivty 167 VBG pH 7.43 VBG pCO2 44 VBG pO2 96 VBG HCO3 29 H VBG O2 Saturation 99.0 VBG Base Excess 4.5 Anion Gap 17 Estim Creat Clear Calc 107.9 Estimated GFR > 60 Random Glucose 335 H Lactic Acid 2.8 H* Lactic Acid F/U @ 2Hr Lactic Acid F/U @ 4Hr Calcium 8.7 Magnesium 1.7 Total Bilirubin 0.3 Direct Bilirubin 0.1 AST 23 ALT 10 Alkaline Phosphatase 71 Troponin I High Sens 3.0 D C-Reactive Protein 0.92 H NT-Pro-B Natriuret Pep 219.2 Total Protein 6.7 Albumin 3.7 Lipase 10 Procalcitonin 0.02 COVID-19 (MONSERRAT) Negative COVID-19 Clin Com See Note Influenza Type A (RUTH ANN) Negative Influenza Type B (RUTH ANN) Negative Influenza A & B Note See Note 12/06/24 12/06/24 12/06/24 10:38 10:41 13:12 MCV MCH MCHC RDW Plt Count MPV Immature Gran % (Auto) Neut % (Auto) Lymph % (Auto) [place] % (Auto) Eos % (Auto) Baso % (Auto) Lymph # (Auto) [place] # (Auto) Eos # (Auto) Baso # (Auto) Abs Immat Gran (auto) Absolute Neuts (auto) Absolute Nucleated RBC Nucleated RBC % (auto) D-Dimer High Sensitivty VBG pH 7.39 VBG pCO2 42 VBG pO2 83 VBG HCO3 26 VBG O2 Saturation 98.0 VBG Base Excess 0.9 Anion Gap Estim Creat Clear Calc Estimated GFR Random Glucose Lactic Acid Lactic Acid F/U @ 2Hr 2.7 H* Lactic Acid F/U @ 4Hr 3.6 H* Calcium Magnesium Total Bilirubin Direct Bilirubin AST ALT Alkaline Phosphatase Troponin I High Sens C-Reactive Protein NT-Pro-B Natriuret Pep Total Protein Albumin Lipase Procalcitonin COVID-19 (MONSERRAT) COVID-19 Clin Com Influenza Type A (RUTH ANN) Influenza Type B (RUTH ANN) Influenza A & B Note 12/06/24 13:17 MCV MCH MCHC RDW Plt Count MPV Immature Gran % (Auto) Neut % (Auto) Lymph % (Auto) [place] % (Auto) Eos % (Auto) Baso % (Auto) Lymph # (Auto) [place] # (Auto) Eos # (Auto) Baso # (Auto) Abs Immat Gran (auto) Absolute Neuts (auto) Absolute Nucleated RBC Nucleated RBC % (auto) D-Dimer High Sensitivty VBG pH 7.39 VBG pCO2 46 VBG pO2 159 VBG HCO3 28 H VBG O2 Saturation 99.0 VBG Base Excess 2.8 Anion Gap Estim Creat Clear Calc Estimated GFR Random Glucose Lactic Acid Lactic Acid F/U @ 2Hr Lactic Acid F/U @ 4Hr Calcium Magnesium Total Bilirubin Direct Bilirubin AST ALT Alkaline Phosphatase Troponin I High Sens C-Reactive Protein NT-Pro-B Natriuret Pep Total Protein Albumin Lipase Procalcitonin COVID-19 ([facility]SERR[facility]) COVID-19 Clin Com Influenza Type A (RUTH ANN) Influenza Type B (RUTH ANN) Influenza A & B Note Imaging Radiologist's Impressions: Impressions Chest X-Ray 12/06/24 08:21 IMPRESSION: Chronic interstitial lung disease. Superimposed acute inflammatory versus infectious process cannot be excluded. Electronically signed by: Filippo Prieto MD 12/06/2024 08:33 AM EDT RP Head CT 12/06/24 08:55 IMPRESSION: No acute intracranial abnormality. Electronically signed by: Sumanth Spear MD 12/06/2024 09:22 AM EDT RP Venous Duplex 12/06/24 09:00 IMPRESSION: No acute deep venous thrombosis interrogated veins, left lower extremity. Negative for DVT.. Electronically signed by: Filippo Prieto MD 12/06/2024 09:34 AM EDT RP Assessment and Plan (1) Acute exacerbation of chronic obstructive pulmonary disease: Status: Acute (2) Pneumonia: Qualifiers: Pneumonia type: due to unspecified organism Laterality: left Lung location: lower lobe of lung Qualified Code(s): J18.9 - Pneumonia, unspecified organism Status: Resolved Plan Pt is a 64-year-old female with a history of chronic hypoxic respiratory failure due to COPD at 4 L O2 at baseline, with multiple recurrent admissions in the past few months especially February, insulin-dependent diabetes, Sjogren's, fibromyalgia, chronic chronic opiate use, celiac disease, ulcerative colitis, RLS, TENISHA, HFpEF who presents to the emergency department with chest pain Patient likely has AE COPD from likely COPD exacerbation, less likely from sepsis. Increased lethargy likely from chronic hypercarbic hypoxic respiratory distress which is her new baseline, likely steroid dependent We will treat with IV steroids, initiate Zosyn and doxycycline (allergy to azithromycin) Inhalers Trend lactate until normalized CPAP use at nighttime ABG/CXR if she has acute worsening Follow sepsis workup done from the ED Ammonia negative imaging negative for any intracranial pathology or hepatic encephalopathy chest pain likely costochondritis, from repeated bouts of coughing Reproducible with palpation. Similar to prior presentation, we will monitor on telemetry. Troponin negative Micro aspirations Patient appears to micro aspirate NPO till swallow eval, can take meds CPAP nocturnally HFpEF pro- BNP on lower side, Does not look overtly fluid overloaded continue baseline lasix low sodium diet Left lower extremity swelling-chronic chronic, present on previous admission We will hold off on repeat ultrasound IDDM with hyperglycemia Likely due to steroids dietary indiscretions check Hba1c hold metformin Decrease Lantus to 10 units and ISS POCs, ADA diet HTN Continue losartan, Norvasc, hold if becomes hypotensive-patient was normotensive/hypertensive on POA chronic pain/chronic opiate use Continue baseline morphine, oxycodone, lyrica on asa 325 bid ?for pain -patient unable to reiterate why she is on that dose, given her issues, we will continue for now and try to establish in the a.m. as to why she is on this medication gerd continue PPI RLS Continue pramipexole Sjogren's continue hydroxychloroquine TENISHA cpap Morbid obesity BMI 33.9 Weight loss encouraged DVT prophylaxis- on full dose asa bid, unclear indication; will avoid further chemoprophylaxis Code status DNR DNI-MOLST form updated in the chart, healthcare proxy was a witness for the entire conversation in the ED. I spent more than 55 minutes trying to talk to the patient explaining to the patient her current condition and plan of management and explaining code status. Patient will likely require 2 midnight stay in the hospital for management of acute COPD exacerbation Total time managing care of this patient today: 55 minutes. Quality Stroke Does the patient have a stroke diagnosis?: No VTE Prior VTE?: No VTE Risk Level:: Medical - moderate - high VTE Device Contraindication: N/A - Device Ordered VTE Drug Contraindication: N/A - Med Ordered
[2024-12-06 14:49] LABS: Ammonia 30 umol/L (13-55)
--- NOTE | 2024-12-06 14:49 | PHA.MEDREC ---
Addendum entered by Shaina Estrada RPh 12/06/24 14:59: Reviewed by [facility] Original Note: Pharmacy Consult ? Medication Reconciliation Pharmacy has completed the medication reconciliation. Spoke to patient and at bedside to confirm med list. had a list of patient medications. Patient stated she is no longer taking Fluconazole 150 mg, ( was only for 7 days not 30 per patient), Prednisone 20 mg, and Nitrofurantoin 100 mg ( took last dose today). confirmed Insulin Glargine 40 units daily and Insulin Lispro 25 units TID with food. Patient last had her medications last night at 12:00 am
[2024-12-06] MEDS: Nicotine 21 MG PATCH.TD24 TRANSDERMA (17:10)
[2024-12-06] MEDS: Nystatin Oral Susp 500,000 UNIT/5 ML ORAL.SUSP 500000 UNIT PO (17:11)
[2024-12-06 17:48] LABS: IDNOW Serial# 55D5AD1C; Strep A Nucleic Acid Negative (Negative)
[2024-12-06 17:54] LABS: Glucose, Whole Blood 377 mg/dL (60-115)
[2024-12-06 17:56] LABS: IDNOW Serial# 58CA691E; Influenza B2 Negative (Negative)
[2024-12-06 18:31] LABS: D Dimer High Sensitivity 173 NG/ML
[2024-12-06] MEDS: Albuterol Sulfate 90 MCG 8 GM INHALER 2 PUFF INHALE (20:42)
[2024-12-06] MEDS: Insulin Glargine,Hum.rec.anlog 100 UNIT/ML 10 ML VIAL 10 UNIT SUBCUT (20:45)
[2024-12-06 20:47] LABS: Glucose, Whole Blood 419 mg/dL (60-115)
--- NOTE | 2024-12-06 21:27 | PC.NURSE ---
POC glucose 419. MD informed in person, said to give 10units lispro. pt expressing severe chronic msk pain, did not get noontime ms contin, per MD ok to give 2mg morphine early and ordering home lido patches. informed face to face also of adverse rxn to atrovent and allergy to acetaminophen. stated understanding and that he will modify in chart
[2024-12-06] MEDS: Lidocaine 4 % Patch ADH..PATCH 2 PATCH TRANSDERMA (21:54)
[2024-12-07] VITALS (10 sets, daily range): BP systolic 125–139; BP diastolic 49–77; PULSE 66–77; RESP 18–22; TEMP 36.4–36.8; O2SAT 93–97
[2024-12-07] MEDS: Morphine Sulfate ER 30 MG TABLET.ER PO ×2 (00:15→13:38)
--- NOTE | 2024-12-07 01:08 | MHC.EDTECH ---
Assisted pt oob to bedside commode to urinate. Pt back in bed and placed back on o2.
[2024-12-07] MEDS: oxyCODONE HCl Immed Release 5 MG TABLET 10 MG PO ×4 (02:10→23:52)
[2024-12-07 05:06] LABS: MANUAL DIFF FLAG NO
[2024-12-07 05:10] LABS: Hematocrit 46.9 % (37.0-47.0); Hemoglobin 14.8 g/dl (12.0-16.0); Imm Gran Abs Auto 0.11 X10*3/uL (0.00-0.03); Imm Gran Pct Auto 1.1 % (0.0-0.4); Lymphocytes Absolute Auto 0.8 X10*3/uL (1.2-4.9); Mean Corpuscular HGB Conc 31.6 g/dl (31.0-35.0); Mean Corpuscular Hemoglobin 26.2 pg (27.0-33.0); Mean Corpuscular Volume 83.0 fL (80.0-98.0); NRBC Abs Auto 0.000 X10*3/uL (0.0-0.012); NRBC Pct Auto 0.0 /100WBC (0.0-0.2); Platelet Count 266 X10*3/uL (160-400); Red Blood Count 5.65 X10*6/uL (4.20-5.50); White Blood Count 9.7 X10*3/uL (4.8-10.8)
--- NOTE | 2024-12-07 05:30 | PC.RT ---
pt is allergic to ipratropium. Order for Duoneb already exists, this order should be dc'd. Pt should only get albuterol nebs and or inhaler.
[2024-12-07 05:48] LABS: Alanine Aminotransferase 11 U/L (0-31); Albumin Level 3.9 g/dL (3.5-5.0); Alkaline Phosphatase 70 U/L (39-117); Anion Gap 20 (12-20); Aspartate Amino Transferase 24 U/L (5-31); Blood Urea Nitrogen 20 mg/dL (9-16); Calcium 9.3 mg/dL (8.4-10.2); Carbon Dioxide 25 mmol/L (22-29); Chloride 96 mmol/L (96-108); Creatinine Clr Calc Pharmacy 79.6; Estimated Glomerular Filt Rate > 60; Magnesium 1.8 mg/dL (1.6-2.6); Potassium 4.6 mmol/L (3.3-5.1); Sodium 136 mmol/L (135-145); Total Protein 7.0 g/dL (6.5-8.0)
[2024-12-07 07:11] LABS: Glucose, Whole Blood 403 mg/dL (60-115)
[2024-12-07] MEDS: Nicotine 21 MG PATCH.TD24 TRANSDERMA (09:52)
[2024-12-07] MEDS: Nystatin Oral Susp 500,000 UNIT/5 ML ORAL.SUSP 500000 UNIT PO (09:52)
[2024-12-07] MEDS: Lidocaine 4 % Patch ADH..PATCH 2 PATCH TRANSDERMA (09:53)
[2024-12-07 10:03] LABS: MRSA Nasal PCR NEGATIVE (Negative); SA Nasal PCR NEGATIVE (Negative)
--- NOTE | 2024-12-07 10:29 | MHC.CM.PN ---
CM met with Patient at bedside, in the ED.Patient lives in a house with her /HCP/Jair, who will transport at time of dc. Patient receives her home O2 and CPAP from [facility] and home/resume said services is the goal. CM has initiated and will follow for dc planning. Patient may benefit from a PT Eval to assist with disposition. PCP is Dr. Dottie Bills
--- NOTE | 2024-12-07 11:49 | MHC.SL.SWA ---
Speech Pathologist Impression: Risk of Aspiration, Mild Oropharyngeal Dysphagia Dysphasia Diet Status: No Change Liquid Consistency and Strategies for Safe Swallow: Liquid Intake Recommendation: Thin Solid Food Consistency: Dietary Recommendations: Regular Oral Medication Intake: Whole with Puree Please contact the pharmacy regarding appropriate crushable or liquid drug formulations that are available whenever modified delivery is recommended. Supervision While Eating and Drinking for Safe Swallow: Intermittent Supervision Foods to Avoid: [place] hard/tough to chew foods Recommendation for Speech: Inpatient Speech Therapy Comment: Patient presents with mild oropharyngeal dysphagia, characterized by prolonged mastication d/t poor dentition, and complaints of globus sensation, in the setting of chronic GERD (which patient reports is managed with medication), COPD, asthma, TENISHA, Lin's esophagus, and Sjogren's. Patient was seen for clinical swallow evaluation- No overt s/s of aspiration were observed. Patient reports increased phlegm production at baseline, coughing up phlgem at times with food particles, and feeling food get stuck in her throat. This was not observed at bedside this date. Recommend continue on REGULAR texture diet as ordered by MD and THIN liquids. Patient to select foods which are easier for her to chew, and avoid overly hard/tough foods. Patient also reports difficult swallowing large pills. She prefers to take her pills with hot coffee or cold tea. TALENT ACQUISITION OPERATIONS MANAGER advised patient to take pills in a spoonful of puree to coat the pill. Follow with additional bites of puree and/or sips of liquid. Alternate bites/sips, ensure upright 90 degree position during PO intake and at least 30 minutes afterwards. Frequency/Duration: 1 f/u Date Range for Service Req: Timeline to reassess: Senior Buyer Clinican/Clinical Fellow: No Supervisory Statement: I have reviewed and agree with the student/clinical fellow's documentation: N/A Speech Language Pathologist: Rafaela Andujar M.A., CCC-TALENT ACQUISITION OPERATIONS MANAGER
--- NOTE | 2024-12-07 11:55 | P.PNIM_ITS ---
Subjective Subjective Date of Service: 12/07/24 Interval History: Less somnloent, seems more awake Complains of SOB and cough above baseline Chest pain with cough Has not been able to sleep or rest Complains she goes into COPD exacerbation every time she finishes steroids Has not been smoking at home Review of Systems Review of Systems: Yes all other systems are reviewed and are negative Physical Exam 2 Exam: Exam: General: AOx3 Resp: Diffuse wheezing and rhonchi, some increased work of breathing CVS: S1, S2, RRR GI: +BS, NT, no distention Chest: Central anterior chest wall tenderness to palpation Skin: Warm, dry Neuro: Cranial nerves II-XII grossly intact bilaterally. Motor grossly intact bilaterally Extremities: Right lower extremity with trace edema, left with 1+ Psych: Appropriate affect Vital Signs: Vital Signs: Last Vital Signs Temp 97.6 F 12/07/24 01:13 Pulse 77 12/07/24 07:55 Resp 22 H 12/07/24 07:55 BP 135/59 L 12/07/24 07:55 Pulse Ox 95 12/07/24 07:55 O2 Del Method Nasal Cannula 12/07/24 07:55 O2 Flow Rate 2 12/07/24 07:55 Oxygen Flow Rate 3 12/06/24 07:35 BMI result Body Mass Index 35.2 Objective Data Active Medications Albuterol Sulfate (Albuterol Sulfate 90 Mcg 8 Gm Inhaler) 2 puff INHALE Q6H PRN PRN Reason: Wheezing Last Admin: 12/06/24 20:42 Dose: 2 puff Documented By: BALJINDER Albuterol Sulfate (Albuterol Sulfate (0.042%) 1.25 Mg/3 Ml Vial.Neb) 1.25 mg INHALE RQ6H REPLACED BY [facility] Aspirin (Aspirin 325 Mg Tablet) 325 mg PO BID@0030,1230 REPLACED BY [facility] Last Admin: 12/07/24 00:15 Dose: 325 mg Documented By: BALJINDER Baclofen (Baclofen 10 Mg Tablet) 10 mg PO BID PRN PRN Reason: Breakthrough Pain Last Admin: 12/07/24 02:10 Dose: 10 mg Documented By: BALJINDER Benzonatate (Benzonatate 100 Mg Capsule) 100 mg PO TID PRN PRN Reason: Cough Calcium Carbonate (Calcium Carbonate 750 Mg Tab.Chew) 750 mg PO Q4H PRN PRN Reason: Heartburn Dextrose (Dextrose 50 % 25 Gm/50 Ml Syringe) 25 gm IVPUSH Q15M PRN; Protocol PRN Reason: per Hypoglycemia Standing Ord. Docusate Sodium (Docusate Sodium 100 Mg Capsule) 100 mg PO BID REPLACED BY [facility] Last Admin: 12/07/24 09:52 Dose: 100 mg Documented By: KALANI Doxycycline Monohydrate (Doxycycline Monohydrate 100 Mg Capsule) 100 mg PO Q12H REPLACED BY [facility] Last Admin: 12/07/24 09:53 Dose: 100 mg Documented By: KALANI Enoxaparin Sodium (Enoxaparin Sodium 40 Mg/0.4 Ml Syringe) 40 mg SUBCUT Q24H REPLACED BY [facility] Last Admin: 12/06/24 19:31 Dose: Not Given Documented By: CARMEL Non-Admin Reason: dose given @ 1615 Furosemide (Furosemide 40 Mg Tablet) 80 mg PO DAILY@1230 REPLACED BY [facility]; Protocol Last Admin: 12/06/24 17:11 Dose: 80 mg Documented By: CARMEL Glucose (Glucose Gel 15 Gm Gel..Gram.) 15 gm PO Q15M PRN; Protocol PRN Reason: per Hypoglycemia Standing Ord. Hydroxychloroquine Sulfate (Hydroxychloroquine Sulfate 200 Mg Tablet) 200 mg PO DAILY@0030 REPLACED BY [facility] Last Admin: 12/07/24 00:15 Dose: 200 mg Documented By: BALJINDER Piperacillin Sod/Tazobactam (Sod 3.375 gm/ Sodium Chloride) 50 mls @ 100 mls/hr IV Q6H REPLACED BY [facility] Last Admin: 12/07/24 11:14 Dose: 100 mls/hr Documented By: MARIELA Insulin Glargine (Insulin Glargine,Hum.Rec.Anlog 100 Unit/Ml 10 Ml Vial) 30 unit SUBCUT BEDTIME REPLACED BY [facility] Insulin Human Lispro (Insulin Lispro 100 Unit/Ml 3 Ml Vial) 0 unit SUBCUT QIDACHS REPLACED BY [facility]; Protocol Last Admin: 12/07/24 07:19 Dose: 10 unit Documented By: KALANI Lidocaine (Lidocaine 4 % Patch Adh..Patch) 2 patch TRANSDERMA DAILY REPLACED BY [facility]; Protocol Last Admin: 12/07/24 09:53 Dose: 2 patch Documented By: KALANI Magnesium Hydroxide (Milk Of Magnesia 30 Ml Oral.Susp) 30 ml PO DAILY PRN PRN Reason: Constipation Magnesium Oxide (Magnesium Oxide 400 Mg Tablet) 400 mg PO DAILY@0030 REPLACED BY [facility] Last Admin: 12/07/24 00:15 Dose: 400 mg Documented By: BALJINDER Melatonin (Melatonin 3 Mg Tablet) 6 mg PO BEDTIME PRN PRN Reason: Insomnia Methylprednisolone Sodium Succinate (Methylprednisolone Sod Succ 125 Mg/2 Ml Vial) 60 mg IVPUSH Q6H REPLACED BY [facility] Last Admin: 12/07/24 11:14 Dose: 60 mg Documented By: GENO-MARIANO Montelukast Sodium (Montelukast Sodium 10 Mg Tablet) 10 mg PO BEDTIME@0030 REPLACED BY [facility] Last Admin: 12/07/24 00:15 Dose: 10 mg Documented By: BALJINDER Morphine Sulfate (Morphine Sulfate Er 30 Mg Tablet.Er) 30 mg PO BID@29,1229 REPLACED BY [facility] Last Admin: 12/07/24 00:15 Dose: 30 mg Documented By: BALJINDER Nicotine (Nicotine 21 Mg Patch.Td24) 21 mg TRANSDERMA DAILY REPLACED BY [facility] Last Admin: 12/07/24 09:52 Dose: 21 mg Documented By: KALANI Nicotine Polacrilex (Nicotine Polacrilex Lozenge 4 Mg Lozenge) 4 mg BUCCAL Q4H PRN PRN Reason: Nicotine Cravings Nicotine Polacrilex (Nicotine Polacrilex 2 Mg Gum) 2 mg BUCCAL Q2H PRN PRN Reason: Nicotine Cravings Nitroglycerin (Nitroglycerin 0.4 Mg Tab.Subl) 0.4 mg SUBLINGUAL Q5MX3 PRN PRN Reason: Chest Pain Nystatin (Nystatin Oral Susp 500,000 Unit/5 Ml Oral.Susp) 500,000 unit PO DAILY REPLACED BY [facility]; Protocol Last Admin: 12/07/24 09:52 Dose: 500,000 unit Documented By: KALANI Omeprazole (Omeprazole 20 Mg Capsule.Dr) 20 mg PO DAILY@0630 REPLACED BY [facility] Last Admin: 12/07/24 06:01 Dose: 20 mg Documented By: BALJINDER Oxycodone HCl (Oxycodone Hcl Immed Release 5 Mg Tablet) 10 mg PO Q6H PRN PRN Reason: Breakthrough Pain Last Admin: 12/07/24 10:03 Dose: 10 mg Documented By: KALANI Polyethylene Glycol (Polyethylene Glycol 3350 17 Gm Powd.Pack) 17 gm PO DAILY PRN PRN Reason: Constipation Pramipexole Dihydrochloride (Pramipexole Di-Hcl 1 Mg Tablet) 1 mg PO DAILY@1230 REPLACED BY [facility] Last Admin: 12/06/24 19:24 Dose: Not Given Documented By: CARMEL Non-Admin Reason: scheduled for 1230 Pregabalin (Pregabalin 75 Mg Capsule) 75 mg PO BID REPLACED BY [facility] Last Admin: 12/07/24 09:52 Dose: 75 mg Documented By: KALANI Senna (Sennosides 8.6 Mg Tablet) 17.2 mg PO BEDTIME REPLACED BY [facility] Last Admin: 12/06/24 20:43 Dose: 17.2 mg Documented By: LAFLAMTai Sodium Chloride (0.9 % Sodium Chloride Flush 3 Ml Syringe) 3 ml IVFLUSH QSHIFT REPLACED BY [facility] Last Admin: 12/07/24 07:13 Dose: Not Given Documented By: KALANI Non-Admin Reason: See Note Labs 12/07/24 04:48 12/07/24 04:48 Labs: Laboratory Results - last 24 hr 12/06/24 12/06/24 12/06/24 13:12 13:17 14:27 MCV MCH MCHC RDW Plt Count MPV Immature Gran % (Auto) Neut % (Auto) Lymph % (Auto) Maverick % (Auto) Eos % (Auto) Baso % (Auto) Lymph # (Auto) Maverick # (Auto) Eos # (Auto) Baso # (Auto) Abs Immat Gran (auto) Absolute Neuts (auto) Absolute Nucleated RBC Nucleated RBC % (auto) D-Dimer High Sensitivty VBG pH 7.39 VBG pCO2 46 VBG pO2 159 VBG HCO3 28 H VBG O2 Saturation 99.0 VBG Base Excess 2.8 Anion Gap Estim Creat Clear Calc Estimated GFR POC Glucose Random Glucose Lactic Acid F/U @ 4Hr 3.6 H* Calcium Magnesium Total Bilirubin AST ALT Alkaline Phosphatase Ammonia 30 Total Protein Albumin Nasal Screen MRSA (PCR) Nasal S. aureus Screen Nasal MRSA/S.aureus Interp Influ [facility] Influenza Type A ([facility]) Influenza Type B ([facility]) Influenza A & B Note Strep [facility] S. pyogenes GrpA [facility] 12/06/24 12/06/24 12/06/24 16:59 17:50 18:18 MCV MCH MCHC RDW Plt Count MPV Immature Gran % (Auto) Neut % (Auto) Lymph % (Auto) [place]verick % (Auto) Eos % (Auto) Baso % (Auto) Lymph # (Auto) [place]ick # (Auto) Eos # (Auto) Baso # (Auto) Abs Immat Gran (auto) Absolute Neuts (auto) Absolute Nucleated RBC Nucleated RBC % (auto) D-Dimer High Sensitivty 173 VBG pH VBG pCO2 VBG pO2 VBG HCO3 VBG O2 Saturation VBG Base Excess Anion Gap Estim Creat Clear Calc Estimated GFR POC Glucose 377 H* Random Glucose Lactic Acid F/U @ 4Hr Calcium Magnesium Total Bilirubin AST ALT Alkaline Phosphatase Ammonia Total Protein Albumin Nasal Screen MRSA (PCR) NEGATIVE Nasal S. aureus Screen NEGATIVE Nasal MRSA/S.aureus Interp SEE NOTE Influ [facility] Cancelled Influenza Type A ([facility]) Negative Influenza Type B ([facility]) Negative Influenza A & B Note See Note Strep [facility] Cancelled S. pyogenes GrpA [facility] Negative 12/06/24 12/07/24 12/07/24 20:44 04:48 07:05 MCV 83.0 MCH 26.2 L MCHC 31.6 RDW 18.5 H Plt Count 266 MPV 10.7 Immature Gran % (Auto) 1.1 H Neut % (Auto) 87.0 H Lymph % (Auto) 8.5 L Maverick % (Auto) 3.2 Eos % (Auto) 0.0 Baso % (Auto) 0.2 Lymph # (Auto) 0.8 L [place]ick # (Auto) 0.3 Eos # (Auto) 0.0 Baso # (Auto) 0.0 Abs Immat Gran (auto) 0.11 H Absolute Neuts (auto) 8.5 H Absolute Nucleated RBC 0.000 Nucleated RBC % (auto) 0.0 D-Dimer High Sensitivty VBG pH VBG pCO2 VBG pO2 VBG HCO3 VBG O2 Saturation VBG Base Excess Anion Gap 20 Estim Creat Clear Calc 79.6 Estimated GFR > 60 POC Glucose 419 H* 403 H* Random Glucose 560 H* Lactic Acid F/U @ 4Hr Calcium 9.3 D Magnesium 1.8 Total Bilirubin 0.3 AST 24 ALT 11 Alkaline Phosphatase 70 Ammonia Total Protein 7.0 Albumin 3.9 Nasal Screen MRSA (PCR) Nasal S. aureus Screen Nasal MRSA/S.aureus Interp Influ [facility] Influenza Type A ([facility]) Influenza Type B ([facility]) Influenza A & B Note Strep Scn [facility] S. pyogenes GrpA [facility] Microbiology Microbiology Results: Microbiology 12/06/24 08:15 Blood Culture - Preliminary Blood - Venous No growth after 24 hours. 12/06/24 08:03 Blood Culture - Preliminary Blood - Venous No growth after 24 hours. Assessment and Plan (1) Acute exacerbation of chronic obstructive pulmonary disease: Status: Acute Plan Pt is a 64-year-old female with a history of chronic hypoxic respiratory failure due to COPD at 4 L O2 at baseline, with multiple recurrent admissions in the past few months especially February, insulin-dependent diabetes, Sjogren's, fibromyalgia, chronic chronic opiate use, celiac disease, ulcerative colitis, RLS, TENISHA, HFpEF who presents to the emergency department with chest pain Acute on hypoxic hypercapnic respiratory failure with question of underlying pneumonia CXR showing chronic interstitial lung disease, though superimposed acute inflammatory vs infectious process can not be excluded Increased lethargy likely from chronic hypercarbic hypoxic respiratory distress which is her new baseline, likely steroid dependent Currently does not meet SIRS criteria: Tachypnea, but no tachycardia, fever, or leukocytosis We will treat with IV steroids, initiate Zosyn and doxycycline (allergy to azithromycin) Check viral respiratory paneld CPAP use at nighttime Follow sepsis workup done from the ED Ammonia negative imaging negative for any intracranial pathology or hepatic encephalopathy Atypical chest pain Pt complaining of central, substernal chest pain radiating to jaw Reproducible with palpation Tropnonin negative, EKG nonischemic Present on previous admissions, likely secondary to costochondritis from chronic cough Will treat with lidocaine patch, guaifenesin/codeine Acute lactic acidosis Likely secondary to metformin use and advanced COPD with exacerbation, not sepsis Micro aspirations Question of micro aspirations Seen by EQUITY RESEARCH ANALYST with mild oropharyngeal dysphagia but no overt aspiration Recommend continuing regular texture diet with thin liquids HFpEF Not in acute exacerbation continue baseline lasix low sodium diet Left lower extremity swelling-chronic chronic, present on previous admissions Repeat US negative for DVT IDDM with hyperglycemia Likely due to steroids and dietary indiscretions check Hba1c hold metformin Lantus, SSI, lispro 5 units qidachs POCs, ADA diet HTN Continue losartan, Norvasc Chronic pain/chronic opiate use Continue baseline morphine, oxycodone, lyrica Continue on asa 325 bid ?for pain gerd continue PPI RLS Continue pramipexole Sjogren's continue hydroxychloroquine TENISHA cpap Morbid obesity BMI 33.9 Weight loss encouraged DVT prophylaxis- on full dose asa bid, unclear indication; will avoid further chemoprophylaxis Code status DNR DNI-MOLST form updated in the chart, healthcare proxy was a witness for the entire conversation in the ED. Pt requires continued hospitalization as she will require continued treatment with bronchodilator therapy, IV steroids, and empiric IV antibiotics for COPD exacerbation as pt continues to have increased work of breathing, SOB/cough above baseline, and continued significant adventitious breath sounds. Quality Stroke Does the patient have a stroke diagnosis?: No VTE Prior VTE?: No VTE Risk Level:: Medical - moderate - high VTE Device Contraindication: N/A - Device Ordered VTE Drug Contraindication: N/A - Med Ordered
--- NOTE | 2024-12-07 12:30 | PC.NURSE ---
Unable to remove multiple scheduled medications from pyxis, pharmacy aware, awaiting correction. Per TRAYLOR also contacted for order change of Mirapex from 1mg once daily to 0.5mg BID per patient request. Awaiting response.
[2024-12-07 13:25] LABS: Glucose, Whole Blood 508 mg/dL (60-115)
[2024-12-07] MEDS: Albuterol Sulfate 90 MCG 8 GM INHALER 2 PUFF INHALE (13:39)
--- NOTE | 2024-12-07 14:11 | PC.NURSE ---
Pt again requesting 0.5mg Mirapex dose (instead of 1mg), PA aware, awaiting response.
[2024-12-07] MEDS: Albuterol Sulfate (0.042%) 1.25 MG/3 ML VIAL.NEB INHALE ×2 (14:14→22:41)
--- NOTE | 2024-12-07 15:42 | HO.NURTONUR ---
Pt arrived c/o worsening SOB and CP. Hx COPD (2L baseline), DM, Sjogren's, fibromyalgia, chronic opioid, celiac, lymphedema, and (new dx) cardiomyopathy. Per prior admission (pneumonia) approx 1 month ago pt needed 4L O2, and has been on steroids. ED workup showed hyperglycemia, gap is closed. Additional 5u ordered for meals on top of sliding scale. Pt admitted for AE COPD. Swallow eval for 'micro aspirations' in the past, approved for regular diet w/thin liquids. Pt aaox4, ambulates x1 assist to bedside commode. Currently on 2L O2. Pt on PRN oxy and scheduled morphine PO.
[2024-12-07 17:03] LABS: Glucose, Whole Blood 467 mg/dL (60-115)
[2024-12-07] MEDS: guaiFEN/Codeine SF 200/20/10ML 10 ML LIQUID 5 ML PO (17:37)
--- NOTE | 2024-12-07 18:41 | PC.NURSE ---
pt POC 467. provider made aware, insulin administered per MD order.
[2024-12-07 20:30] LABS: Glucose, Whole Blood 415 mg/dL (60-115)
[2024-12-07] MEDS: 0.9 % Sodium Chloride Flush 3 ML SYRINGE IVFLUSH (20:50)
[2024-12-08] VITALS (9 sets, daily range): BP systolic 107–159; BP diastolic 69–78; PULSE 61–73; RESP 18–20; TEMP 36.2–36.9; O2SAT 92–95
[2024-12-08] MEDS: Morphine Sulfate ER 30 MG TABLET.ER PO ×2 (00:50→11:42)
[2024-12-08] MEDS: guaiFEN/Codeine SF 200/20/10ML 10 ML LIQUID 5 ML PO ×3 (03:32→20:15)
[2024-12-08] MEDS: Albuterol Sulfate (0.042%) 1.25 MG/3 ML VIAL.NEB INHALE ×3 (05:48→18:40)
[2024-12-08] MEDS: Nystatin Oral Susp 500,000 UNIT/5 ML ORAL.SUSP 500000 UNIT PO (07:30)
[2024-12-08] MEDS: Nicotine 21 MG PATCH.TD24 TRANSDERMA (07:31)
[2024-12-08] MEDS: Lidocaine 4 % Patch ADH..PATCH 2 PATCH TRANSDERMA (07:31)
[2024-12-08] MEDS: oxyCODONE HCl Immed Release 5 MG TABLET 10 MG PO ×3 (07:32→20:06)
[2024-12-08] MEDS: 0.9 % Sodium Chloride Flush 3 ML SYRINGE IVFLUSH ×2 (07:33→20:08)
[2024-12-08 07:37] LABS: MANUAL DIFF FLAG NO
[2024-12-08 07:43] LABS: Hematocrit 48.9 % (37.0-47.0); Hemoglobin 15.6 g/dl (12.0-16.0); Imm Gran Abs Auto 0.10 X10*3/uL (0.00-0.03); Imm Gran Pct Auto 0.8 % (0.0-0.4); Lymphocytes Absolute Auto 2.9 X10*3/uL (1.2-4.9); Mean Corpuscular HGB Conc 31.9 g/dl (31.0-35.0); Mean Corpuscular Hemoglobin 26.2 pg (27.0-33.0); Mean Corpuscular Volume 82.0 fL (80.0-98.0); NRBC Abs Auto 0.000 X10*3/uL (0.0-0.012); NRBC Pct Auto 0.0 /100WBC (0.0-0.2); Platelet Count 276 X10*3/uL (160-400); Red Blood Count 5.96 X10*6/uL (4.20-5.50); White Blood Count 12.5 X10*3/uL (4.8-10.8)
[2024-12-08 07:56] LABS: Glucose, Whole Blood 421 mg/dL (60-115)
[2024-12-08 08:17] LABS: Alanine Aminotransferase 12 U/L (0-31); Albumin Level 3.9 g/dL (3.5-5.0); Alkaline Phosphatase 67 U/L (39-117); Anion Gap 16 (12-20); Aspartate Amino Transferase 20 U/L (5-31); Blood Urea Nitrogen 23 mg/dL (9-16); Calcium 9.2 mg/dL (8.4-10.2); Carbon Dioxide 32 mmol/L (22-29); Chloride 93 mmol/L (96-108); Creatinine Clr Calc Pharmacy 83.7; Estimated Glomerular Filt Rate > 60; Magnesium 1.8 mg/dL (1.6-2.6); Potassium 3.9 mmol/L (3.3-5.1); Sodium 137 mmol/L (135-145); Total Protein 6.9 g/dL (6.5-8.0)
[2024-12-08 08:51] LABS: Chlamydia pneumoniae PCR Not Detected (Not Detect.); Coronavirus 229E PCR Not Detected (Not Detect.); Coronavirus HKU1 PCR Not Detected (Not Detect.); Coronavirus NL63 PCR Not Detected (Not Detect.); Coronavirus OC43 PCR Not Detected (Not Detect.); RSV PCR Not Detected (Not Detect.); Rhino/Enterovirus PCR Not Detected (Not Detect.)
[2024-12-08 10:23] LABS: Influenza A H1 PCR Not Detected (Not Detect.); Influenza A H1-2009 PCR Not Detected (Not Detect.); Influenza A H3 PCR Not Detected (Not Detect.); SARS-CoV-2 PCR Not Detected (Not Detect.)
[2024-12-08 11:21] LABS: Glucose, Whole Blood 349 mg/dL (60-115)
[2024-12-08] MEDS: Insulin Glargine,Hum.rec.anlog 100 UNIT/ML 10 ML VIAL 10 UNIT SUBCUT (11:39)
--- NOTE | 2024-12-08 14:10 | MHC.SL.SWA ---
Speech Pathologist Impression: Esophageal dysphagia Risk of Aspiration Due to: Dysphasia Diet Status: GI consult recommended Liquid Consistency and Strategies for Safe Swallow: Liquid Intake Recommendation: Thin Liquid Intake Strategies: Solid Food Consistency: Dietary Recommendations: Regular Additional Modifications to Solid Foods: Oral Medication Intake: Whole with Puree Please contact the pharmacy regarding appropriate crushable or liquid drug formulations that are available whenever modified delivery is recommended. Compensatory Strategies and Precautions to be Taken for Safe Swallow: Sitting Upright (90 deg) Small Bites and Sips Alternate Liquids/Solids Supervision While Eating and Drinking for Safe Swallow: None Needed Foods to Avoid: [place] hard/tough to chew foods Swallowing Recommended Treatments: Compens. Strategy Educat. Recommendation for Speech: Inpatient Speech Therapy Comment: Pt tolerating diet as ordered, with use of compensatory strategies to manage persisting esophageal dysphagia (i.e. liquid wash, alternating consistencies, warm bolus, slow pacing, double swallow). Pt expressed interest in further assessment through visualization. DIE CAST SUPERVISOR communicated with hospitalist. Recc diet as ordered, further testing TBD if appropriate. Frequency/Duration: 1 f/u Date Range for Service Req: Timeline to reassess: Unleavened Dough Mixer Clinican/Clinical Fellow: No Supervisory Statement: I have reviewed and agree with the student/clinical fellow's documentation: N/A Speech Language Pathologist: Mae Frankel M.S., CCC-DIE CAST SUPERVISOR
--- NOTE | 2024-12-08 16:03 | MHC.CM.PN ---
EMR REVIEWED, PT W/COPD EXAC, PT/OT PENDING D/T BS'S IN 400'S, PER HOSPITALIST ANTIC PT WILL DC IN 1-2 DAYS AND MAY NEED CHRONIC STEROIDS, CM WILL CONT TO FOLLOW.
[2024-12-08 16:26] LABS: Glucose, Whole Blood 363 mg/dL (60-115)
--- NOTE | 2024-12-08 18:55 | P.PNIM_ITS ---
Subjective Subjective Date of Service: 12/08/24 Interval History: Improved breathing and cough at rest Still experiencing significant SOB and difficulty breathing with movement/exertion Occasional dysphagia Chest pain better with cough control Review of Systems Review of Systems: Yes all other systems are reviewed and are negative Physical Exam 2 Exam: Exam: General: AOx3 Resp: Diffuse wheezing and rhonchi CVS: S1, S2, RRR GI: +BS, NT, no distention Chest: Central anterior chest wall tenderness to palpation Skin: Warm, dry Neuro: Cranial nerves II-XII grossly intact bilaterally. Motor grossly intact bilaterally Extremities: Right lower extremity with trace edema, left with 1+ Psych: Appropriate affect Vital Signs: Vital Signs: Last Vital Signs Temp 97.5 F 12/08/24 15:59 Pulse 73 12/08/24 18:42 Resp 18 12/08/24 18:42 BP 122/71 12/08/24 15:59 Pulse Ox 92 12/08/24 15:59 O2 Del Method Room Air 12/08/24 15:59 O2 Flow Rate 2 12/08/24 00:00 Oxygen Flow Rate 3 12/06/24 07:35 BMI result Body Mass Index 35.2 Objective Data Active Medications Albuterol Sulfate (Albuterol Sulfate 90 Mcg 8 Gm Inhaler) 2 puff INHALE Q6H PRN PRN Reason: Wheezing Last Admin: 12/07/24 13:39 Dose: 2 puff Documented By: MARIELA Albuterol Sulfate (Albuterol Sulfate (0.042%) 1.25 Mg/3 Ml Vial.Neb) 1.25 mg INHALE RQID [facility] Last Admin: 12/08/24 18:40 Dose: 1.25 mg Documented By: DANIEL Amlodipine Besylate (Amlodipine Besylate 10 Mg Tablet) 10 mg PO DAILY@0030 [facility]; Protocol Last Admin: 12/08/24 00:50 Dose: 10 mg Documented By: CLAYTON Aspirin (Aspirin 325 Mg Tablet) 325 mg PO BID@0030,1230 [facility] Last Admin: 12/08/24 11:58 Dose: 325 mg Documented By: MELISSA Baclofen (Baclofen 10 Mg Tablet) 10 mg PO BID PRN PRN Reason: Breakthrough Pain Last Admin: 12/07/24 02:10 Dose: 10 mg Documented By: LAFLAMC Benzonatate (Benzonatate 100 Mg Capsule) 100 mg PO TID PRN PRN Reason: Cough Last Admin: 12/07/24 14:27 Dose: 100 mg Documented By: MARIELA Calcium Carbonate (Calcium Carbonate 750 Mg Tab.Chew) 750 mg PO Q4H PRN PRN Reason: Heartburn Dextrose (Dextrose 50 % 25 Gm/50 Ml Syringe) 25 gm IVPUSH Q15M PRN; Protocol PRN Reason: per Hypoglycemia Standing Ord. Docusate Sodium (Docusate Sodium 100 Mg Capsule) 100 mg PO BID [facility] Last Admin: 12/08/24 07:33 Dose: 100 mg Documented By: MELISSA Doxycycline Monohydrate (Doxycycline Monohydrate 100 Mg Capsule) 100 mg PO Q12H [facility] Last Admin: 12/08/24 07:33 Dose: 100 mg Documented By: MELISSA Enoxaparin Sodium (Enoxaparin Sodium 40 Mg/0.4 Ml Syringe) 40 mg SUBCUT Q24H [facility] Last Admin: 12/08/24 17:33 Dose: 40 mg Documented By: MELISSA Furosemide (Furosemide 40 Mg Tablet) 80 mg PO DAILY@1230 [facility]; Protocol Last Admin: 12/08/24 11:41 Dose: 80 mg Documented By: MELISSA Glucose (Glucose Gel 15 Gm Gel..Gram.) 15 gm PO Q15M PRN; Protocol PRN Reason: per Hypoglycemia Standing Ord. Guaifenesin/Codeine Phosphate (Guaifen/Codeine Sf 200/20/10ml 10 Ml Liquid) 5 ml PO Q4H PRN PRN Reason: Cough Last Admin: 12/08/24 11:56 Dose: 5 ml Documented By: MELISSA Hydroxychloroquine Sulfate (Hydroxychloroquine Sulfate 200 Mg Tablet) 200 mg PO DAILY@0030 [facility] Last Admin: 12/08/24 00:51 Dose: 200 mg Documented By: CLAYTON Piperacillin Sod/Tazobactam (Sod 3.375 gm/ Sodium Chloride) 50 mls @ 100 mls/hr IV Q6H [facility] Last Admin: 12/08/24 17:34 Dose: 100 mls/hr Documented By: MELISSA Insulin Glargine (Insulin Glargine,Hum.Rec.Anlog 100 Unit/Ml 10 Ml Vial) 40 unit SUBCUT BEDTIME [facility] Insulin Glargine (Insulin Glargine,Hum.Rec.Anlog 100 Unit/Ml 10 Ml Vial) 10 unit SUBCUT DAILY [facility] Last Admin: 12/08/24 11:39 Dose: 10 unit Documented By: MELISSA Insulin Human Lispro (Insulin Lispro 100 Unit/Ml 3 Ml Vial) 0 unit SUBCUT QIDACHS [facility]; Protocol Last Admin: 12/08/24 17:32 Dose: 8 unit Documented By: MELISSA Insulin Human Lispro (Insulin Lispro 100 Unit/Ml 3 Ml Vial) 10 unit SUBCUT QIDAS [facility] Last Admin: 12/08/24 17:33 Dose: 10 unit Documented By: MELISSA Lidocaine (Lidocaine 4 % Patch Adh..Patch) 2 patch TRANSDERMA DAILY [facility]; Protocol Last Admin: 12/08/24 07:31 Dose: 2 patch Documented By: MELISSA Losartan Potassium (Losartan Potassium 25 Mg Tablet) 25 mg PO DAILY@0030 [facility]; Protocol Last Admin: 12/08/24 00:51 Dose: 25 mg Documented By: CLAYTON Magnesium Hydroxide (Milk Of Magnesia 30 Ml Oral.Susp) 30 ml PO DAILY PRN PRN Reason: Constipation Magnesium Oxide (Magnesium Oxide 400 Mg Tablet) 400 mg PO DAILY@0 [facility] Last Admin: 12/08/24 00:52 Dose: 400 mg Documented By: CLAYTON Melatonin (Melatonin 3 Mg Tablet) 6 mg PO BEDTIME PRN PRN Reason: Insomnia Methylprednisolone Sodium Succinate (Methylprednisolone Sod Succ 40 Mg/Ml Vial) 40 mg IVPUSH Q12H [facility] Last Admin: 12/08/24 07:33 Dose: 40 mg Documented By: MELISSA Montelukast Sodium (Montelukast Sodium 10 Mg Tablet) 10 mg PO BEDTIME@29 [facility] Last Admin: 12/08/24 00:50 Dose: 10 mg Documented By: CLAYTON Morphine Sulfate (Morphine Sulfate Er 30 Mg Tablet.Er) 30 mg PO BID@0,1229 [facility] Last Admin: 12/08/24 11:42 Dose: 30 mg Documented By: MELISSA Nicotine (Nicotine 21 Mg Patch.Td24) 21 mg TRANSDERMA DAILY [facility] Last Admin: 12/08/24 07:31 Dose: 21 mg Documented By: MELISSA Nicotine Polacrilex (Nicotine Polacrilex Lozenge 4 Mg Lozenge) 4 mg BUCCAL Q4H PRN PRN Reason: Nicotine Cravings Nicotine Polacrilex (Nicotine Polacrilex 2 Mg Gum) 2 mg BUCCAL Q2H PRN PRN Reason: Nicotine Cravings Nitroglycerin (Nitroglycerin 0.4 Mg Tab.Subl) 0.4 mg SUBLINGUAL Q5MX3 PRN PRN Reason: Chest Pain Nystatin (Nystatin Oral Susp 500,000 Unit/5 Ml Oral.Susp) 500,000 unit PO DAILY [facility]; Protocol Last Admin: 12/08/24 07:30 Dose: 500,000 unit Documented By: MELISSA Omeprazole (Omeprazole 20 Mg Capsule.Dr) 20 mg PO DAILY@0630 [facility] Last Admin: 12/08/24 05:36 Dose: 20 mg Documented By: CLAYTON Oxycodone HCl (Oxycodone Hcl Immed Release 5 Mg Tablet) 10 mg PO Q6H PRN PRN Reason: Breakthrough Pain Last Admin: 12/08/24 13:49 Dose: 10 mg Documented By: MELISSA Oxycodone HCl (Oxycodone Hcl Immed Release 5 Mg Tablet) 10 mg PO QID PRN PRN Reason: Pain, Severe (Pain Scale 7-10) Last Admin: 12/07/24 23:52 Dose: 10 mg Documented By: CLAYTON Polyethylene Glycol (Polyethylene Glycol 3350 17 Gm Powd.Pack) 17 gm PO DAILY PRN PRN Reason: Constipation Pramipexole Dihydrochloride (Pramipexole Di-Hcl 0.25 Mg Tablet) 0.5 mg PO DAILY@0000 [facility] Last Admin: 12/08/24 00:51 Dose: 0.5 mg Documented By: CLAYTON Pramipexole Dihydrochloride (Pramipexole Di-Hcl 0.25 Mg Tablet) 0.5 mg PO DAILY@1200 [facility] Last Admin: 12/08/24 11:42 Dose: 0.5 mg Documented By: MELISSA Pregabalin (Pregabalin 75 Mg Capsule) 75 mg PO BID [facility] Last Admin: 12/08/24 07:33 Dose: 75 mg Documented By: MELISSA Senna (Sennosides 8.6 Mg Tablet) 17.2 mg PO BEDTIME [facility] Last Admin: 12/07/24 20:50 Dose: 17.2 mg Documented By: CLAYTON Sodium Chloride (0.9 % Sodium Chloride Flush 3 Ml Syringe) 3 ml IVFLUSH QSHIFT BETSEY Last Admin: 12/08/24 17:34 Dose: Not Given Documented By: MELISSA Non-Admin Reason: IV Running Labs 12/08/24 06:44 12/08/24 06:44 Labs: Laboratory Results - last 24 hr 12/07/24 12/07/24 12/08/24 18:16 20:26 06:44 MCV 82.0 MCH 26.2 L MCHC 31.9 RDW 18.6 H Plt Count 276 MPV 10.1 Immature Gran % (Auto) 0.8 H Neut % (Auto) 69.4 Lymph % (Auto) 22.8 Sherman % (Auto) 6.6 Eos % (Auto) 0.2 Baso % (Auto) 0.2 Lymph # (Auto) 2.9 Sherman # (Auto) 0.8 Eos # (Auto) 0.0 Baso # (Auto) 0.0 Abs Immat Gran (auto) 0.10 H Absolute Neuts (auto) 8.7 H Absolute Nucleated RBC 0.000 Nucleated RBC % (auto) 0.0 Anion Gap 16 Estim Creat Clear Calc 83.7 Estimated GFR > 60 POC Glucose 415 H* Random Glucose 454 H* Calcium 9.2 Magnesium 1.8 Total Bilirubin 0.4 AST 20 ALT 12 Alkaline Phosphatase 67 Total Protein 6.9 Albumin 3.9 Respiratory Panel [place] See Note Adenovirus (Rapid PCR) Not Detected B.pert (TEM-PCR) Not Detected B.parapertussis DNA PCR Not Detected C. pneumoniae DNA (PCR) Not Detected Coronavirus OC43 (PCR) Not Detected Coronavirus HKU1 (PCR) Not Detected Coronavirus 229E (PCR) Not Detected Coronavirus NL63 (PCR) Not Detected Human Metapneumovir PCR Not Detected Influenza A (RT-PCR) Not Detected Influenza A (H1) PCR Not Detected Influ A (H1/09) PCR Not Detected Influenza A (H3) PCR Not Detected Influenza B (RT-PCR) Not Detected M. pneumoniae (PCR) Not Detected Parainfluenza 1 (PCR) Not Detected Parainfluenza 2 (PCR) Not Detected Parainfluenza 3 (PCR) Not Detected Parainfluenza 4 (PCR) Not Detected RSV (PCR) Not Detected Entero/Rhino (PCR) Not Detected SARS-CoV-2 RNA (RT-PCR) Not Detected 12/08/24 12/08/24 12/08/24 07:21 11:00 16:22 MCV MCH MCHC RDW Plt Count MPV Immature Gran % (Auto) Neut % (Auto) Lymph % (Auto) Sherman % (Auto) Eos % (Auto) Baso % (Auto) Lymph # (Auto) [place] # (Auto) Eos # (Auto) Baso # (Auto) Abs Immat Gran (auto) Absolute Neuts (auto) Absolute Nucleated RBC Nucleated RBC % (auto) Anion Gap Estim Creat Clear Calc Estimated GFR POC Glucose 421 H* 349 H 363 H* Random Glucose Calcium Magnesium Total Bilirubin AST ALT Alkaline Phosphatase Total Protein Albumin Respiratory Panel [place] Adenovirus (Rapid PCR) B.pert (TEM-PCR) B.parapertussis DNA PCR C. pneumoniae DNA (PCR) Coronavirus OC43 (PCR) Coronavirus HKU1 (PCR) Coronavirus 229E (PCR) Coronavirus NL63 (PCR) Human Metapneumovir PCR Influenza A (RT-PCR) Influenza A (H1) PCR Influ A (H1/09) PCR Influenza A (H3) PCR Influenza B (RT-PCR) M. pneumoniae (PCR) Parainfluenza 1 (PCR) Parainfluenza 2 (PCR) Parainfluenza 3 (PCR) Parainfluenza 4 (PCR) RSV (PCR) Entero/Rhino (PCR) SARS-CoV-2 RNA (RT-PCR) Microbiology Microbiology Results: Microbiology 12/06/24 08:15 Blood Culture - Preliminary Blood - Venous No growth after 48 hours. 12/06/24 08:03 Blood Culture - Preliminary Blood - Venous No growth after 48 hours. Assessment and Plan (1) Acute exacerbation of chronic obstructive pulmonary disease: Status: Acute Plan Pt is a 64-year-old female with a history of chronic hypoxic respiratory failure due to COPD at 4 L O2 at baseline, with multiple recurrent admissions in the past few months especially February, insulin-dependent diabetes, Sjogren's, fibromyalgia, chronic chronic opiate use, celiac disease, ulcerative colitis, RLS, TENISHA, HFpEF who presents to the emergency department with chest pain Acute on hypoxic hypercapnic respiratory failure with question of underlying pneumonia CXR showing chronic interstitial lung disease, though superimposed acute inflammatory vs infectious process can not be excluded Increased lethargy likely from chronic hypercarbic hypoxic respiratory distress which is her new baseline, likely steroid dependent Currently does not meet SIRS criteria: Tachypnea, but no tachycardia, fever, or leukocytosis We will treat with IV steroids, initiate empiric Zosyn and doxycycline (allergy to azithromycin) Respiratory panel negative CPAP use at nighttime Atypical chest pain Pt complaining of central, substernal chest pain radiating to jaw Reproducible with palpation Tropnonin negative, EKG nonischemic Present on previous admissions, likely secondary to costochondritis from chronic cough Will treat with lidocaine patch, guaifenesin/codeine Acute lactic acidosis Likely secondary to metformin use and advanced COPD with exacerbation, not sepsis Micro aspirations Question of micro aspirations Pt complains of long-standing dysphagia Seen by [employer] with mild oropharyngeal dysphagia but no overt aspiration Recommend continuing regular texture diet with thin liquids Will get modified barium swallow HFpEF Not in acute exacerbation continue baseline lasix low sodium diet Left lower extremity swelling-chronic chronic, present on previous admissions Repeat US negative for DVT IDDM with hyperglycemia Likely due to steroids and dietary indiscretions check Hba1c hold metformin Lantus, SSI, lispro 10 units qidachs POCs, ADA diet HTN Continue losartan, Norvasc Chronic pain/chronic opiate use Continue baseline morphine, oxycodone, lyrica Continue on asa 325 bid ?for pain gerd continue PPI RLS Continue pramipexole Sjogren's continue hydroxychloroquine TENISHA cpap Morbid obesity BMI 33.9 Weight loss encouraged DVT prophylaxis- on full dose asa bid, unclear indication; will avoid further chemoprophylaxis Code status DNR DNI-MOLST form updated in the chart, healthcare proxy was a witness for the entire conversation in the ED. Pt requires continued hospitalization as she will require continued treatment with bronchodilator therapy, IV steroids, and empiric IV antibiotics for COPD exacerbation as pt continues to have increased work of breathing, SOB/cough above baseline, and continued significant adventitious breath sounds. Quality Stroke Does the patient have a stroke diagnosis?: No VTE Prior VTE?: No VTE Risk Level:: Medical - moderate - high VTE Device Contraindication: N/A - Device Ordered VTE Drug Contraindication: N/A - Med Ordered
[2024-12-08 20:55] LABS: Glucose, Whole Blood 316 mg/dL (60-115)
[2024-12-08] MEDS: Insulin Glargine,Hum.rec.anlog 100 UNIT/ML 10 ML VIAL 40 UNIT SUBCUT (21:31)
[2024-12-09] VITALS (11 sets, daily range): BP systolic 113–150; BP diastolic 63–74; PULSE 66–80; RESP 17–19; TEMP 36.2–36.9; O2SAT 90–95
[2024-12-09] MEDS: Morphine Sulfate ER 30 MG TABLET.ER PO ×2 (00:43→12:09)
[2024-12-09] MEDS: oxyCODONE HCl Immed Release 5 MG TABLET 10 MG PO ×4 (02:07→21:01)
[2024-12-09] MEDS: guaiFEN/Codeine SF 200/20/10ML 10 ML LIQUID 5 ML PO ×3 (02:11→21:00)
[2024-12-09 06:54] LABS: MANUAL DIFF FLAG NO
[2024-12-09 07:02] LABS: Hematocrit 49.3 % (37.0-47.0); Hemoglobin 15.4 g/dl (12.0-16.0); Imm Gran Abs Auto 0.13 X10*3/uL (0.00-0.03); Imm Gran Pct Auto 1.0 % (0.0-0.4); Lymphocytes Absolute Auto 2.8 X10*3/uL (1.2-4.9); Mean Corpuscular HGB Conc 31.2 g/dl (31.0-35.0); Mean Corpuscular Hemoglobin 25.9 pg (27.0-33.0); Mean Corpuscular Volume 83.0 fL (80.0-98.0); NRBC Abs Auto 0.000 X10*3/uL (0.0-0.012); NRBC Pct Auto 0.0 /100WBC (0.0-0.2); Platelet Count 310 X10*3/uL (160-400); Red Blood Count 5.94 X10*6/uL (4.20-5.50); White Blood Count 13.6 X10*3/uL (4.8-10.8)
[2024-12-09] MEDS: Albuterol Sulfate (0.042%) 1.25 MG/3 ML VIAL.NEB INHALE ×4 (07:44→19:00)
[2024-12-09 07:48] LABS: Glucose, Whole Blood 341 mg/dL (60-115)
[2024-12-09 07:52] LABS: Alanine Aminotransferase 26 U/L (0-31); Albumin Level 4.0 g/dL (3.5-5.0); Alkaline Phosphatase 67 U/L (39-117); Anion Gap 16 (12-20); Aspartate Amino Transferase 30 U/L (5-31); Blood Urea Nitrogen 27 mg/dL (9-16); Calcium 9.1 mg/dL (8.4-10.2); Carbon Dioxide 31 mmol/L (22-29); Chloride 93 mmol/L (96-108); Creatinine Clr Calc Pharmacy 101.1; Estimated Glomerular Filt Rate > 60; Magnesium 1.9 mg/dL (1.6-2.6); Potassium 4.0 mmol/L (3.3-5.1); Sodium 136 mmol/L (135-145); Total Protein 6.8 g/dL (6.5-8.0)
[2024-12-09] MEDS: Nicotine 21 MG PATCH.TD24 TRANSDERMA (08:02)
[2024-12-09] MEDS: Lidocaine 4 % Patch ADH..PATCH 2 PATCH TRANSDERMA (08:03)
[2024-12-09] MEDS: Insulin Glargine,Hum.rec.anlog 100 UNIT/ML 10 ML VIAL 10 UNIT SUBCUT (08:03)
[2024-12-09] MEDS: 0.9 % Sodium Chloride Flush 3 ML SYRINGE IVFLUSH ×3 (08:18→21:02)
[2024-12-09 11:27] LABS: Glucose, Whole Blood 276 mg/dL (60-115)
[2024-12-09 16:13] LABS: Glucose, Whole Blood 224 mg/dL (60-115)
--- NOTE | 2024-12-09 16:48 | MHC.SLORD ---
Speech Language Pathology Order Status: MBSS ordered this a.m., communicated [facility] hospitalist, swallow above the level of esophagus is WFL, patient tolerating diet with strategies, study, if needed could be done as outpatient v. inpatient. Hospitalist agreed to cancel order at this time. ROD FINISHER noted in a.m. patient had eaten entirety of breakfast. ROD FINISHER to f/u X1.
--- NOTE | 2024-12-09 17:45 | P.PNIM_ITS ---
Subjective Subjective Date of Service: 12/09/24 Interval History: Feels back to baseline at rest At exertion still experiencing worse SOB and baseline Overall feels weak Sugars difficult to control while on steroids Cough well-controlled Review of Systems Review of Systems: Yes all other systems are reviewed and are negative Physical Exam 2 Exam: Exam: General: AOx3, no acute distress Resp: Mild diffuse wheezing, diminshed overall CVS: S1, S2, RRR GI: +BS, NT, no distention Skin: Warm, dry Neuro: Cranial nerves II-XII grossly intact bilaterally. Motor grossly intact bilaterally Extremities: 1+ lower leg edema Psych: Appropriate affect Vital Signs: Vital Signs: Last Vital Signs Temp 97.3 F 12/09/24 15:30 Pulse 75 12/09/24 15:30 Resp 18 12/09/24 15:30 BP 117/63 12/09/24 15:30 Pulse Ox 92 12/09/24 15:30 O2 Del Method Nasal Cannula 12/09/24 15:30 O2 Flow Rate 2 12/09/24 15:30 Oxygen Flow Rate 3 12/06/24 07:35 BMI result Body Mass Index 35.2 Objective Data Active Medications Albuterol Sulfate (Albuterol Sulfate 90 Mcg 8 Gm Inhaler) 2 puff INHALE Q6H PRN PRN Reason: Wheezing Last Admin: 12/07/24 13:39 Dose: 2 puff Documented By: MARIELA Albuterol Sulfate (Albuterol Sulfate (0.042%) 1.25 Mg/3 Ml Vial.Neb) 1.25 mg INHALE RQID [facility] Last Admin: 12/09/24 15:27 Dose: 1.25 mg Documented By: TYRELL Amlodipine Besylate (Amlodipine Besylate 10 Mg Tablet) 10 mg PO DAILY@0030 [facility]; Protocol Last Admin: 12/09/24 00:43 Dose: 10 mg Documented By: KESHA Aspirin (Aspirin 325 Mg Tablet) 325 mg PO BID@29,1230 [facility] Last Admin: 12/09/24 12:09 Dose: 325 mg Documented By: TIMOTHY Baclofen (Baclofen 10 Mg Tablet) 10 mg PO BID PRN PRN Reason: Breakthrough Pain Last Admin: 12/07/24 02:10 Dose: 10 mg Documented By: ILENELAMC Benzonatate (Benzonatate 100 Mg Capsule) 100 mg PO TID PRN PRN Reason: Cough Last Admin: 12/07/24 14:27 Dose: 100 mg Documented By: GENO-MARIANO Calcium Carbonate (Calcium Carbonate 750 Mg Tab.Chew) 750 mg PO Q4H PRN PRN Reason: Heartburn Dextrose (Dextrose 50 % 25 Gm/50 Ml Syringe) 25 gm IVPUSH Q15M PRN; Protocol PRN Reason: per Hypoglycemia Standing Ord. Docusate Sodium (Docusate Sodium 100 Mg Capsule) 100 mg PO BID [facility] Last Admin: 12/09/24 08:02 Dose: 100 mg Documented By: TIMOTHY Doxycycline Monohydrate (Doxycycline Monohydrate 100 Mg Capsule) 100 mg PO Q12H [facility] Last Admin: 12/09/24 08:02 Dose: 100 mg Documented By: TIMOTHY Enoxaparin Sodium (Enoxaparin Sodium 40 Mg/0.4 Ml Syringe) 40 mg SUBCUT Q24H [facility] Last Admin: 12/09/24 17:00 Dose: 40 mg Documented By: TIMOTHY Furosemide (Furosemide 40 Mg Tablet) 80 mg PO DAILY@1230 [facility]; Protocol Last Admin: 12/09/24 12:07 Dose: 80 mg Documented By: TIMOTHY Glucose (Glucose Gel 15 Gm Gel..Gram.) 15 gm PO Q15M PRN; Protocol PRN Reason: per Hypoglycemia Standing Ord. Guaifenesin/Codeine Phosphate (Guaifen/Codeine Sf 200/20/10ml 10 Ml Liquid) 5 ml PO Q4H PRN PRN Reason: Cough Last Admin: 12/09/24 08:12 Dose: 5 ml Documented By: TIMOTHY Hydroxychloroquine Sulfate (Hydroxychloroquine Sulfate 200 Mg Tablet) 200 mg PO DAILY@0030 [facility] Last Admin: 12/09/24 00:42 Dose: 200 mg Documented By: KESHA Piperacillin Sod/Tazobactam (Sod 3.375 gm/ Sodium Chloride) 50 mls @ 100 mls/hr IV Q6H [facility] Last Admin: 12/09/24 16:59 Dose: 100 mls/hr Documented By: TIMOHTY Insulin Glargine (Insulin Glargine,Hum.Rec.Anlog 100 Unit/Ml 10 Ml Vial) 40 unit SUBCUT BEDTIME [facility] Last Admin: 12/08/24 21:31 Dose: 40 unit Documented By: KESHA Insulin Glargine (Insulin Glargine,Hum.Rec.Anlog 100 Unit/Ml 10 Ml Vial) 20 unit SUBCUT DAILY [facility] Last Admin: 12/09/24 12:02 Dose: Not Given Documented By: TIMOTHY Non-Admin Reason: Previously Administered Insulin Human Lispro (Insulin Lispro 100 Unit/Ml 3 Ml Vial) 0 unit SUBCUT QIDACHS [facility]; Protocol Last Admin: 12/09/24 17:00 Dose: 4 unit Documented By: TIMOTHY Insulin Human Lispro (Insulin Lispro 100 Unit/Ml 3 Ml Vial) 10 unit SUBCUT QIDACHS [facility] Last Admin: 12/09/24 17:00 Dose: 10 unit Documented By: TIMOTHY Lidocaine (Lidocaine 4 % Patch Adh..Patch) 2 patch TRANSDERMA DAILY [facility]; Protocol Last Admin: 12/09/24 08:03 Dose: 2 patch Documented By: TIMOTHY Losartan Potassium (Losartan Potassium 25 Mg Tablet) 25 mg PO DAILY@003 [facility]; Protocol Last Admin: 12/09/24 00:42 Dose: 25 mg Documented By: KESHA Magnesium Hydroxide (Milk Of Magnesia 30 Ml Oral.Susp) 30 ml PO DAILY PRN PRN Reason: Constipation Magnesium Oxide (Magnesium Oxide 400 Mg Tablet) 400 mg PO DAILY@29 [facility] Last Admin: 12/09/24 00:42 Dose: 400 mg Documented By: KESHA Melatonin (Melatonin 3 Mg Tablet) 6 mg PO BEDTIME PRN PRN Reason: Insomnia Methylprednisolone Sodium Succinate (Methylprednisolone Sod Succ 40 Mg/Ml Vial) 40 mg IVPUSH Q12H [facility] Last Admin: 12/09/24 08:03 Dose: 40 mg Documented By: TIMOTHY Montelukast Sodium (Montelukast Sodium 10 Mg Tablet) 10 mg PO BEDTIME@003 [facility] Last Admin: 12/09/24 00:42 Dose: 10 mg Documented By: KESHA Morphine Sulfate (Morphine Sulfate Er 30 Mg Tablet.Er) 30 mg PO BID@0030,1230 [facility] Last Admin: 12/09/24 12:09 Dose: 30 mg Documented By: TIMOTHY Nicotine (Nicotine 21 Mg Patch.Td24) 21 mg TRANSDERMA DAILY [facility] Last Admin: 12/09/24 08:02 Dose: 21 mg Documented By: TIMOTHY Nicotine Polacrilex (Nicotine Polacrilex Lozenge 4 Mg Lozenge) 4 mg BUCCAL Q4H PRN PRN Reason: Nicotine Cravings Nicotine Polacrilex (Nicotine Polacrilex 2 Mg Gum) 2 mg BUCCAL Q2H PRN PRN Reason: Nicotine Cravings Nitroglycerin (Nitroglycerin 0.4 Mg Tab.Subl) 0.4 mg SUBLINGUAL Q5MX3 PRN PRN Reason: Chest Pain Nystatin (Nystatin Oral Susp 500,000 Unit/5 Ml Oral.Susp) 500,000 unit PO DAILY [facility]; Protocol Last Admin: 12/09/24 12:08 Dose: Not Given Documented By: TIMOTHY Non-Admin Reason: Patient Refused Omeprazole (Omeprazole 20 Mg Capsule.Dr) 20 mg PO DAILY@0630 [facility] Last Admin: 12/09/24 06:10 Dose: 20 mg Documented By: KESHA Oxycodone HCl (Oxycodone Hcl Immed Release 5 Mg Tablet) 10 mg PO Q6H PRN PRN Reason: Breakthrough Pain Last Admin: 12/09/24 14:39 Dose: 10 mg Documented By: TIMOTHY Oxycodone HCl (Oxycodone Hcl Immed Release 5 Mg Tablet) 10 mg PO QID PRN PRN Reason: Pain, Severe (Pain Scale 7-10) Last Admin: 12/07/24 23:52 Dose: 10 mg Documented By: CLAYTON Polyethylene Glycol (Polyethylene Glycol 3350 17 Gm Powd.Pack) 17 gm PO DAILY PRN PRN Reason: Constipation Pramipexole Dihydrochloride (Pramipexole Di-Hcl 0.25 Mg Tablet) 0.5 mg PO DAILY@0000 [facility] Last Admin: 12/09/24 00:42 Dose: 0.5 mg Documented By: KESHA Pramipexole Dihydrochloride (Pramipexole Di-Hcl 0.25 Mg Tablet) 0.5 mg PO DAILY@1200 [facility] Last Admin: 12/09/24 12:07 Dose: 0.5 mg Documented By: TIMOTHY Pregabalin (Pregabalin 75 Mg Capsule) 75 mg PO BID [facility] Last Admin: 12/09/24 08:02 Dose: 75 mg Documented By: TIMOTHY Senna (Sennosides 8.6 Mg Tablet) 17.2 mg PO BEDTIME [facility] Last Admin: 12/08/24 20:04 Dose: 17.2 mg Documented By: KESHA Sodium Chloride (0.9 % Sodium Chloride Flush 3 Ml Syringe) 3 ml IVFLUSH QSHIFT [facility] Last Admin: 12/09/24 17:00 Dose: 3 ml Documented By: TIMOTHY Labs 12/09/24 06:05 12/09/24 06:05 Labs: Laboratory Results - last 24 hr 12/08/24 12/09/24 12/09/24 20:51 06:05 07:44 MCV 83.0 MCH 25.9 L MCHC 31.2 RDW 18.0 H Plt Count 310 MPV 9.7 Immature Gran % (Auto) 1.0 H Neut % (Auto) 71.9 Lymph % (Auto) 20.5 [place] % (Auto) 6.3 Eos % (Auto) 0.1 Baso % (Auto) 0.2 Lymph # (Auto) 2.8 [place] # (Auto) 0.9 Eos # (Auto) 0.0 Baso # (Auto) 0.0 Abs Immat Gran (auto) 0.13 H Absolute Neuts (auto) 9.8 H Absolute Nucleated RBC 0.000 Nucleated RBC % (auto) 0.0 Anion Gap 16 Estim Creat Clear Calc 101.1 Estimated GFR > 60 POC Glucose 316 H 341 H Random Glucose 355 H* Calcium 9.1 Magnesium 1.9 Total Bilirubin 0.5 AST 30 ALT 26 Alkaline Phosphatase 67 Total Protein 6.8 Albumin 4.0 12/09/24 12/09/24 11:16 16:07 MCV MCH MCHC RDW Plt Count MPV Immature Gran % (Auto) Neut % (Auto) Lymph % (Auto) [place] % (Auto) Eos % (Auto) Baso % (Auto) Lymph # (Auto) [place] # (Auto) Eos # (Auto) Baso # (Auto) Abs Immat Gran (auto) Absolute Neuts (auto) Absolute Nucleated RBC Nucleated RBC % (auto) Anion Gap Estim Creat Clear Calc Estimated GFR POC Glucose 276 H 224 H Random Glucose Calcium Magnesium Total Bilirubin AST ALT Alkaline Phosphatase Total Protein Albumin Assessment and Plan (1) Acute exacerbation of chronic obstructive pulmonary disease: Status: Acute Plan Pt is a 64-year-old female with a history of chronic hypoxic respiratory failure due to COPD at 4 L O2 at baseline, with multiple recurrent admissions in the past few months especially February, insulin-dependent diabetes, Sjogren's, fibromyalgia, chronic chronic opiate use, celiac disease, ulcerative colitis, RLS, TENISHA, HFpEF who presents to the emergency department with chest pain Acute on hypoxic hypercapnic respiratory failure with question of underlying pneumonia CXR showing chronic interstitial lung disease, though superimposed acute inflammatory vs infectious process can not be excluded Increased lethargy likely from chronic hypercarbic hypoxic respiratory distress which is her new baseline, likely steroid dependent Currently does not meet SIRS criteria: Tachypnea, but no tachycardia, fever, or leukocytosis Continue IV steroids, empiric Zosyn and doxycycline (allergy to azithromycin); switch to po meds tomorrow Respiratory panel negative CPAP use at nighttime Atypical chest pain Pt complaining of central, substernal chest pain radiating to jaw Reproducible with palpation Tropnonin negative, EKG nonischemic Present on previous admissions, likely secondary to costochondritis from chronic cough Will treat with lidocaine patch, guaifenesin/codeine Pain better with cough control Acute lactic acidosis Likely secondary to metformin use and advanced COPD with exacerbation, not sepsis Question of micro aspirations Pt complains of long-standing dysphagia Seen by OB/GYN DOCTOR with mild oropharyngeal dysphagia but no overt aspiration Recommend continuing regular texture diet with thin liquids F/U with PCP for outpatient modified barium swallow HFpEF Not in acute exacerbation continue baseline lasix low sodium diet Left lower extremity swelling-chronic chronic, present on previous admissions Repeat US negative for DVT IDDM with hyperglycemia Likely due to steroids and dietary indiscretions check Hba1c hold metformin Lantus, SSI, lispro 10 units qidachs POCs, ADA diet HTN Continue losartan, Norvasc Chronic pain/chronic opiate use Continue baseline morphine, oxycodone, lyrica Continue on asa 325 bid ?for pain gerd continue PPI RLS Continue pramipexole Sjogren's continue hydroxychloroquine TENISHA cpap Morbid obesity BMI 33.9 Weight loss encouraged DVT prophylaxis- on full dose asa bid, unclear indication; will avoid further chemoprophylaxis Code status DNR DNI-MOLST form updated in the chart, healthcare proxy was a witness for the entire conversation in the ED. Pt requires continued hospitalization as she will require continued treatment with bronchodilator therapy, IV steroids, and empiric IV antibiotics for COPD exacerbation. PT recommends STR and currently waiting on prior auth for safe disposition home. Quality Stroke Does the patient have a stroke diagnosis?: No VTE Prior VTE?: No VTE Risk Level:: Medical - moderate - high VTE Device Contraindication: N/A - Device Ordered VTE Drug Contraindication: N/A - Med Ordered
[2024-12-09 20:59] LABS: Glucose, Whole Blood 250 mg/dL (60-115)
[2024-12-09] MEDS: Insulin Glargine,Hum.rec.anlog 100 UNIT/ML 10 ML VIAL 40 UNIT SUBCUT (21:30)
[2024-12-10] VITALS: BP 148/68; PULSE 74; RESP 18; TEMP 36.8; O2SAT 92
[2024-12-10] MEDS: Morphine Sulfate ER 30 MG TABLET.ER PO ×2 (00:24→11:42)
[2024-12-10 03:33] VITALS: BP 134/63; PULSE 71; RESP 17; TEMP 36.6; O2SAT 86
[2024-12-10] MEDS: oxyCODONE HCl Immed Release 5 MG TABLET 10 MG PO ×3 (04:56→16:10)
[2024-12-10] MEDS: guaiFEN/Codeine SF 200/20/10ML 10 ML LIQUID 5 ML PO ×2 (06:09→16:11)
[2024-12-10 06:45] LABS: MANUAL DIFF FLAG NO
[2024-12-10 06:58] LABS: Hematocrit 50.0 % (37.0-47.0); Hemoglobin 16.0 g/dl (12.0-16.0); Imm Gran Abs Auto 0.15 X10*3/uL (0.00-0.03); Imm Gran Pct Auto 1.1 % (0.0-0.4); Lymphocytes Absolute Auto 2.5 X10*3/uL (1.2-4.9); Mean Corpuscular HGB Conc 32.0 g/dl (31.0-35.0); Mean Corpuscular Hemoglobin 26.6 pg (27.0-33.0); Mean Corpuscular Volume 83.2 fL (80.0-98.0); NRBC Abs Auto 0.000 X10*3/uL (0.0-0.012); NRBC Pct Auto 0.0 /100WBC (0.0-0.2); Platelet Count 330 X10*3/uL (160-400); Red Blood Count 6.01 X10*6/uL (4.20-5.50); White Blood Count 13.5 X10*3/uL (4.8-10.8)
[2024-12-10 07:21] LABS: Alanine Aminotransferase 23 U/L (0-31); Albumin Level 3.9 g/dL (3.5-5.0); Alkaline Phosphatase 64 U/L (39-117); Anion Gap 16 (12-20); Aspartate Amino Transferase 25 U/L (5-31); Blood Urea Nitrogen 25 mg/dL (9-16); Calcium 9.1 mg/dL (8.4-10.2); Carbon Dioxide 29 mmol/L (22-29); Chloride 95 mmol/L (96-108); Creatinine Clr Calc Pharmacy 86.0; Estimated Glomerular Filt Rate > 60; Magnesium 2.0 mg/dL (1.6-2.6); Potassium 4.4 mmol/L (3.3-5.1); Sodium 136 mmol/L (135-145); Total Protein 6.9 g/dL (6.5-8.0)
[2024-12-10 07:37] LABS: Glucose, Whole Blood 453 mg/dL (60-115)
[2024-12-10 08:00] VITALS: BP 158/65; PULSE 73; RESP 20; TEMP 36.3; O2SAT 93
[2024-12-10 08:04] VITALS: PULSE 69; RESP 18; O2SAT 91
[2024-12-10] MEDS: Albuterol Sulfate (0.042%) 1.25 MG/3 ML VIAL.NEB INHALE (08:04)
[2024-12-10] MEDS: Insulin Glargine,Hum.rec.anlog 100 UNIT/ML 10 ML VIAL 20 UNIT SUBCUT (08:38)
[2024-12-10] MEDS: Lidocaine 4 % Patch ADH..PATCH 2 PATCH TRANSDERMA (08:39)
[2024-12-10] MEDS: Nystatin Oral Susp 500,000 UNIT/5 ML ORAL.SUSP 500000 UNIT PO (08:39)
[2024-12-10] MEDS: Nicotine 21 MG PATCH.TD24 TRANSDERMA (08:39)
[2024-12-10] MEDS: 0.9 % Sodium Chloride Flush 3 ML SYRINGE IVFLUSH (08:41)
--- NOTE | 2024-12-10 09:50 | MHC.CM.PN ---
Addendum entered by Dottie Philippe RN 12/10/24 12:39: CM MET W/PT WHO REPORTS HER INSURANCE HAS A $6600 OUT OF POCKET COST BEFORE THEY WILL COVER ANY STR, PT ALSO REPORTS SHE IS ACTIVE W/A [id number] HOWEVER DOES NOT RECALL NAME, PT REPORTS SHE WILL FOLLOW UP W/PCP [employer] WILL ONLY COVER HOME SERVICES THAT ARE ORDERED BY PCP. PT AGREEABLE TO DC HOME TODAY W/RESUMP OF [facility] AND [facility] FOR HOME O2/CPAP, PT'S WILL BRING PORTABLE TANK AND TRANSPORT PT HOME. Original Note: EMR REVIEWED, PT WILL DC TO [facility] FOR STR PENDING INSURANCE AUTH VIA BLS, CM WILL CONT TO FOLLOW DC NEEDS.
[2024-12-10 11:26] LABS: Glucose, Whole Blood 294 mg/dL (60-115)
[2024-12-10 11:40] VITALS: BP 151/73; PULSE 79; RESP 20; TEMP 36.3; O2SAT 93
--- NOTE | 2024-12-10 13:52 | PM.DS ---
DS: Providers Provider Date of Service: 12/10/24 Date of admission: 12/06/24 17:04 Date of discharge: 12/10/24 Primary care physician: Dottie Douglass MD DS: Diagnosis Discharge Diagnosis (1) Acute exacerbation of chronic obstructive pulmonary disease: Status: Acute DS: Summary Hospital Course Hospital Course: From admission HPI: Date of Service: 12/06/24 Chief Complaint: CP and SOB/CARDOZA Patient is a 64-year-old female with a past medical history significant for oxygen-dependent COPD, insulin-dependent diabetes, Sjogren's, fibromyalgia, chronic opioid use, celiac disease, ulcerative colitis, Lin's esophagus, restless leg syndrome, TENISHA on CPAP, class 1 obesity, ?left leg lymphedema, and new diagnosis cardiomyopathy experienced chest pain and difficulty breathing, which had become a new normal for the patient. Patient reports that since last morning, she continued to have worsening chest pain and difficulty breathing which is similar to her prior. She reports that she is now recovering from pneumonia last month and she completed antibiotic treatment. From prior admission nearly a month ago, it appears that the patient has advanced COPD uses 4 L oxygen, continues to smoke and is likely now steroid dependent. She also was likely deemed to have micro aspirations worsening her clinical condition and with Sjogren's, prognostication was deemed poor. Persistent lactic acidemia-likely secondary to her chronic hypercapnic hypoxic respiratory status, less likely sepsis Workup in the ED revealed normal pH, no hypercarbia, however she continued to be extremely weak despite IV steroids and doxycycline and was deemed unfit to go home. Hence admission is being done for AE COPD. Patient's was at the bedside during the entire conversation. Extensive code status discussion was held for more than 35 minutes and I explained to the patient about her guarded prognosis and she elected to be DNR DNI. Did not want to be hooked to machines. She is being admitted for a E COPD, swallow eval and we will be treated with broad-spectrum antibiotics. Hospital course Pt was admitted to the hospital for acute on chronic hypoxic and hypercapnic respiratory failure in the setting of COPD exacerbation with a question of underlying pneumonia. Pt was treated with bronchodilator therapy, IV steroids, and empiric IV antibiotics ultimately to good effect. Patient's symptoms gradually improved until the day of discharge pt was back at baseline with both her breathing and on her home supplemental oxygen. Pt reports that she goes into a COPD exacerbation as soon as her steroid treatment ends, and she believes she should be on chronic steroids. Pt also complained of dysphagia during hospital stay, and was seen and evaluated by speech where she passed her swallow evaluation that was without any overt signs of aspiration. However, suggestion is for pt to follow up with PCP for outpatient modified barium swallow. Pt will be discharged home on Augmentin 875 mg b.i.d. x2 days, as well as a long prednisone taper. She should follow up with her PCP and/or order management specialist in 1 week for both routine post hospitalization visit as well as to determine whether she should be on chronic steroids. Pt should resume all of her other home medications. Additional details concerning hospital stay as indicated below. Time Attestation Discharge Coordination Time (in mins): 38 Quality: Safe Use of Opioids Does Pt have an Active Cancer Diagnosis on the Problem List?: No Quality: Stroke Does the patient have a stroke diagnosis?: No Physical Exam Exam: Exam: General: AOx3, no acute distress Resp: CTA bilaterally though overall diminished CVS: S1, S2, RRR GI: +BS, NT, no distention Skin: Warm, dry Neuro: Cranial nerves II-XII grossly intact bilaterally. Motor grossly intact bilaterally Extremities: No pitting edema Psych: Appropriate affect Vital Signs: Vital Signs: Last Vital Signs Temp 97.3 F 12/10/24 11:40 Pulse 79 12/10/24 11:40 Resp 20 12/10/24 11:40 BP 151/73 H 12/10/24 11:40 Pulse Ox 93 12/10/24 11:40 O2 Del Method Room Air 12/10/24 11:40 O2 Flow Rate 2 12/10/24 08:00 Oxygen Flow Rate 3 12/06/24 07:35 BMI result Body Mass Index 35.2 DS: Data Data Completed and Pending Completed studies during hospitalization [Text1]: Procedures Assistance with Respiratory Ventilation, Less than 24 Consecutive Hours, Continuous Positive Airway Pressure (07/27/24) Labs on day of discharge: Laboratory Results - last 24 hr 12/09/24 12/09/24 12/10/24 16:07 20:55 06:21 WBC 13.5 H RBC 6.01 H Hgb 16.0 Hct 50.0 H MCV 83.2 MCH 26.6 L MCHC 32.0 RDW 18.1 H Plt Count 330 MPV 10.1 Immature Gran % (Auto) 1.1 H Neut % (Auto) 74.1 H Lymph % (Auto) 18.8 L [place] % (Auto) 5.6 Eos % (Auto) 0.1 Baso % (Auto) 0.3 Lymph # (Auto) 2.5 [place] # (Auto) 0.8 Eos # (Auto) 0.0 Baso # (Auto) 0.0 Abs Immat Gran (auto) 0.15 H Absolute Neuts (auto) 10.0 H Absolute Nucleated RBC 0.000 Nucleated RBC % (auto) 0.0 Sodium 136 Potassium 4.4 Chloride 95 L Carbon Dioxide 29 Anion Gap 16 BUN 25 H Creatinine 0.74 Estim Creat Clear Calc 86.0 Estimated GFR > 60 POC Glucose 224 H 250 H Random Glucose 442 H* Calcium 9.1 Magnesium 2.0 Total Bilirubin 0.4 AST 25 ALT 23 Alkaline Phosphatase 64 Total Protein 6.9 Albumin 3.9 12/10/24 12/10/24 07:18 11:22 WBC RBC Hgb Hct MCV MCH MCHC RDW Plt Count MPV Immature Gran % (Auto) Neut % (Auto) Lymph % (Auto) [place] % (Auto) Eos % (Auto) Baso % (Auto) Lymph # (Auto) [place] # (Auto) Eos # (Auto) Baso # (Auto) Abs Immat Gran (auto) Absolute Neuts (auto) Absolute Nucleated RBC Nucleated RBC % (auto) Sodium Potassium Chloride Carbon Dioxide Anion Gap BUN Creatinine Estim Creat Clear Calc Estimated GFR POC Glucose 453 H* 294 H Random Glucose Calcium Magnesium Total Bilirubin AST ALT Alkaline Phosphatase Total Protein Albumin Preliminary micro results at discharge 12/06/24 08:15 Blood Culture - Preliminary Blood - Venous No growth after 48 hours. 12/06/24 08:03 Blood Culture - Preliminary Blood - Venous No growth after 48 hours. Discharge Plan Discharge Anticipated Discharge Date/Time: 12/10/24 13:16 Patient Disposition: Home Health Service Discharge Diagnosis: Acute on chronic hypoxic respiratory failure in the setting of COPD exacerbation Referrals: [facility] [Outside] - 1 Day Referral Note: SHORT TERM REHAB Dottie Douglass MD [Primary Care Provider, Endocrinology] - 1 Week Discharge Medications: New codeine-guaifenesin [Guaifenesin AC] 10-100 mg/5 mL liquid 5 ml PO Q6H Qty: 120 0RF prednisone 10 mg tablet 10 mg PO DIRECTED Qty: 30 0RF Rx Instructions: see taper instructions Take 40 mg (4 tabs) daily for the next 3 days, then Take 30 mg (3 tabs) daily for the next 3 days, then Take 20 mg (2 tabs) daily for the next 3 days, then Take 10 mg (1 tab) daily for the next 3 days prednisone 5 mg tablet 5 mg PO DIRECTED Qty: 7 0RF Rx Instructions: see taper instructions Take one tablet daily for the next 7 days. Begin after prednisone taper, starting on 12/23 amoxicillin-pot clavulanate 875-125 mg tablet 1 tab PO BID Qty: 5 0RF Rx Instructions: Take one tablet twice a day with food for the next 2 days, starting the evening of 12/10 and ending the evening of 12/12. Continued (DME) blood-glucose meter Kit See Rx Instructions .Route Qty: 1 0RF Rx Instructions: 4 times daily to check blood glucose (DME) Oxygen Home Use Kit See Rx Instructions .Route Qty: 1 3RF Rx Instructions: 2L continuous (DME) One touch ultra test strips See Rx Instructions .ROUTE .MEDSUPPLY Rx Instructions: E11.9 Use to test glucose 3 times a day [id number] mg capsule 1 cap PO QID PRN (Reason: headache) 28 Days Qty: 28 0RF pregabalin 75 mg capsule 75 mg PO BID Qty: 180 3RF morphine 30 mg tablet extended release 30 mg PO BID@0030,1230 28 Days Qty: 56 0RF oxycodone 10 mg tablet 10 mg PO QID PRN (Reason: pain) 28 Days Qty: 112 0RF (DME) lancets [Onetouch Delica Safety Lancet] 30 gauge misc See Rx Instructions .Route Qty: 300 3RF Rx Instructions: TID aspirin 325 mg Tablet 325 mg PO BID@0030,1230 albuterol sulfate 90 mcg/actuation HFA aerosol inhaler 2 puff INHALATION Q6H PRN (Reason: wheezing) Stiolto Respimat 2.5-2.5 mcg/actuation mist 2 puff INHALATION DAILY@1230 pantoprazole 40 mg tablet,delayed release (DR/EC) 40 mg PO DAILY@0630 montelukast 10 mg tablet 10 mg PO BEDTIME@0030 furosemide [Lasix] 40 mg tablet 40 mg PO DAILY@1230 baclofen 10 mg tablet 10 mg PO BID PRN (Reason: Pain) magnesium oxide 400 mg (241.3 mg magnesium) tablet 400 mg PO DAILY@0030 metformin 1,000 mg tablet 1,000 mg PO BID@0030,1230 losartan 25 mg tablet 25 mg PO DAILY@0030 pramipexole 0.25 mg tablet 1 mg PO DAILY@1230 hydroxychloroquine 200 mg tablet 200 mg PO DAILY@0030 nystatin 100,000 unit/mL suspension 5 ml PO DAILY Rx Instructions: swish and spit insulin lispro 100 unit/mL insulin pen 25 unit subcut TIDAC nicotine (polacrilex) 4 mg lozenge 4 mg buccal Q4H PRN (Reason: nicotine cravings) insulin glargine-yfgn 100 unit/mL solution 40 unit subcut DAILY lidocaine [Lidocaine Pain Relief] 4 % adhesive patch,medicated 3 patch transdermal DAILY PRN (Reason: Pain) Protocol: Apply to: Apply to: right anterior chest (DME) FreeStyle Mag 3 Plus Sensor Device See Rx Instructions .Route Qty: 6 3RF Rx Instructions: As directed (DME) FreeStyle Mag 3 [place] Misc See Rx Instructions .Route Qty: 1 0RF Rx Instructions: As directed (DME) Dexcom G7 Sensor Device See Rx Instructions .Route Qty: 6 3RF Rx Instructions: every 15 days (DME) Dexcom G7 Customer Program Manager Misc See Rx Instructions .Route Qty: 1 0RF Rx Instructions: As directed ondansetron 4 mg tablet,disintegrating 4 mg PO Q8H PRN (Reason: nausea and vomiting) Qty: 30 1RF amlodipine 10 mg tablet 10 mg PO DAILY@0030 Qty: 90 3RF Discontinued levofloxacin 750 mg tablet 750 mg PO DAILY Qty: 10 0RF Discharge Orders: Discharge Order (Routine); Ordered 12/10/24 Ordered By: Per [place] Activity on Discharge: As tolerated Stand Alone Forms: Patient Portal Discharge page Print Language: Danish Care Plan Goals: See below Health Concerns: Acute on chronic hypoxic respiratory failure COPD exacerbation Pneumonia Plan of Treatment: You were admitted to the hospital for acute on chronic hypoxic and hypercapnic respiratory failure in the setting of COPD exacerbation with with question of underlying pneumonia. You were treated with bronchodilator therapy, IV steroids, and empiric IV antibiotics. Your symptoms gradually improved and today at discharge you are now at baseline with your chronic SOB and supplemental oxygen requirement. You will be discharged on a short course of empiric antibiotics and a long prednisone taper. -- take Augmentin 875 mg b.i.d. times 2 days, starting the evening of 12/10 and ending the evening of 12/12 -- you will be placed on a long prednisone taper: 40 mg x 3 days, 30 mg x 3 days, 20 mg x 3 days, 10 mg x 3 days, and 5 mg x 7 days -- you will need to follow up with either PCP and/or pulmonology for consideration of chronic prednisone use -- there is also concern for possible micro aspirations and dysphagia. You were seen and evaluated by speech and swallow without any signs of overt aspiration. You should follow up with PCP to arrange for outpatient modified barium swallow -- resume all of your other home medications Assessment: See discharge summary
--- NOTE | 2024-12-10 16:38 | MHC.SL.SWA ---
Speech Pathologist Impression: Esophageal dysphagia Dysphasia Diet Status: No Change Liquid Consistency and Strategies for Safe Swallow: Liquid Intake Recommendation: Thin Liquid Intake Strategies: Small Sips Solid Food Consistency: Dietary Recommendations: Regular Additional Modifications to Solid Foods: Patient is tolerating unmodified diet and agreeable to MBSS as outpatient. Please re-refer with any further concern. Oral Medication Intake: Whole with Puree Please contact the pharmacy regarding appropriate crushable or liquid drug formulations that are available whenever modified delivery is recommended. Compensatory Strategies and Precautions to be Taken for Safe Swallow: Sitting Upright (90 deg) Small Bites and Sips Alternate Liquids/Solids Supervision While Eating and Drinking for Safe Swallow: None Needed Foods to Avoid: [place] hard/tough to chew foods Recommendation for Speech: D/C Inpatient Speech Waiter/Waitress Formal Clinican/Clinical Fellow: No Supervisory Statement: I have reviewed and agree with the student/clinical fellow's documentation: N/A Speech Language Pathologist: Rafaela Andujar M.A., CCC-FLOOR LAYER HELPER
== END 2024-12-10 16:56 | disposition home health service (06) | DRG 190 ==
LOC: HO.ED 14:17 → HO.EDOVER 17:31 → HO.IMC 12-07 14:48
PROVIDERS: Admitting Provider Student in an Organized Health Care Education/Training Program; Emergency Provider Emergency Medicine; PCP Internal Medicine; Visit Provider Student in an Organized Health Care Education/Training Program
DX: J44.1 Chronic obstructive pulmonary disease with (acute) exacerbation (principal); J18.9 Pneumonia, unspecified organism; J96.21 Acute and chronic respiratory failure with hypoxia; J96.22 Acute and chronic respiratory failure with hypercapnia; I50.32 Chronic diastolic (congestive) heart failure; E87.21 Acute metabolic acidosis; Z99.81 Dependence on supplemental oxygen; F17.210 Nicotine dependence, cigarettes, uncomplicated; Z71.6 Tobacco abuse counseling; E11.65 Type 2 diabetes mellitus with hyperglycemia; M94.0 Chondrocostal junction syndrome [Tietze]; Z20.822 Contact with and (suspected) exposure to COVID-19; G89.29 Other chronic pain; K21.9 Gastro-esophageal reflux disease without esophagitis; G47.33 Obstructive sleep apnea (adult) (pediatric); Z66 Do not resuscitate; I11.0 Hypertensive heart disease with heart failure; M35.00 Sjogren syndrome, unspecified; E66.01 Morbid (severe) obesity due to excess calories; J44.0 Chronic obstructive pulmonary disease with (acute) lower respiratory infection; Z68.35 Body mass index [BMI] 35.0-35.9, adult; Z71.3 Dietary counseling and surveillance; G25.81 Restless legs syndrome; Z91.119 Patient's noncompliance with dietary regimen due to unspecified reason; Z79.4 Long term (current) use of insulin; Z79.82 Long term (current) use of aspirin; Z79.84 Long term (current) use of oral hypoglycemic drugs; Z79.891 Long term (current) use of opiate analgesic; Z79.899 Other long term (current) drug therapy
CPT/HCPCS: 36415; 70450; 71045; 80048; 80053; 80076; 82140; 82803; 82947; 83605; 83690; 83735; 83880; 84145; 84484; 85025; 85379; 86140; 87040; 87502; 87633; 87635; 87640; 87641; 87651; 92526; 92610; 93005; 93970; 93971; 94640; 97162; 97166; 99285; J1271; J1650; J2270; J2543; J2919

== ENCOUNTER → 2024-12-06 07:35 | Outpatient (BNV) | payer OTHER, SELFPAY | PROVIDERS: Emergency Provider Emergency Medicine; PCP Internal Medicine; Visit Provider Internal Medicine Cardiovascular Disease | DX: I49.3 Ventricular premature depolarization (principal); I44.5 Left posterior fascicular block | CPT/HCPCS: 93010 ==

== ENCOUNTER → 2024-12-06 07:44 | Outpatient (BNV) | payer OTHER, SELFPAY | PROVIDERS: Emergency Provider Emergency Medicine; PCP Internal Medicine; Visit Provider Radiology Diagnostic Radiology | DX: R20.0 Anesthesia of skin (principal); Z03.89 Encounter for observation for other suspected diseases and conditions ruled out; J84.9 Interstitial pulmonary disease, unspecified; M79.662 Pain in left lower leg; R60.0 Localized edema | CPT/HCPCS: 70450; 71045; 93970; 93971 ==

== ENCOUNTER → 2024-12-06 07:52 | Outpatient (BNV) | payer OTHER, SELFPAY | PROVIDERS: Emergency Provider Emergency Medicine; PCP Internal Medicine; Visit Provider Student in an Organized Health Care Education/Training Program | DX: J44.1 Chronic obstructive pulmonary disease with (acute) exacerbation (principal); J18.9 Pneumonia, unspecified organism | CPT/HCPCS: 99223; 99233 ==

== ENCOUNTER 2024-12-21 14:19 | Outpatient (AMB) | payer OTHER, SELFPAY ==
--- NOTE | 2024-12-21 14:22 | A.OFFPC_ITS ---
Vital Signs 12/21/24 14:28 Height 5 ft 4 in Weight 198 lb BMI 34.0 BP 122/64 Blood Pressure Location Rt brachial Position Sitting Respiration 20 Pulse 93 Pulse Source Pulse Oximeter Temp 98.6 F Temp Source Temporal Artery Scan Pulse Oximetry (%) 94 Oxygen Delivery Method Room Air Intake Visit Reasons: D/C from [facility] on 11/09 - RS from 11/26 Intake Note: Lashon presents in the office today for a hospital discharge. Allergies acetaminophen (From TYLENOL) Allergy (Severe, Verified 12/21/24 14:26) Anaphylaxis atorvastatin (From LIPITOR) Allergy (Severe, Verified 12/21/24 14:26) Difficulty Breathing azithromycin (AZITHROMYCIN) Allergy (Severe, Verified 12/21/24 14:26) Difficulty Breathing mite-Dermatophagoides farinae, vicente (dust mite - [place]) Allergy (Severe, Verified 12/21/24 14:26) Difficulty Breathing sumatriptan (From IMITREX) Allergy (Severe, Verified 12/21/24 14:26) Difficulty Breathing house dust Allergy (Mild, Verified 12/21/24 14:26) Unknown adhesive tape (ADHESIVE TAPE) Allergy (Unknown, Verified 12/21/24 14:26) Rash gentamicin (GENTAMICIN) Allergy (Unknown, Verified 12/21/24 14:26) Rash adalimumab (From Humira) Allergy (Verified 12/21/24 14:26) Rash erythromycin base Allergy (Verified 12/21/24 14:26) Unknown haloperidol (From HALDOL) Adverse Reaction (Unknown, Verified 12/21/24 14:26) GI Issues ketorolac (From TORADOL) Adverse Reaction (Unknown, Verified 12/21/24 14:26) Muscle cramps prasterone (DHEA) (From DHEA) Adverse Reaction (Unknown, Verified 12/21/24 14:26) Cardiac issues varenicline (From CHANTIX) Adverse Reaction (Unknown, Verified 12/21/24 14:26) Seizure ipratropium (From Atrovent) Adverse Reaction (Verified 12/21/24 14:26) Migraine Tobacco use date assessed: 12/21/24 Dental Screening Dental Screen Date: 12/21/24 Did you have a dental visit in the last 12 months?: Yes Did you have a dental problem in the last 6 months where you did not have access to dental care?: No Was dental information given to patient?: Patient has dentist HPI HPI Comments History of Present Illness Details 64-year-old female pmhx type 2 DM, RA, S jogrens, fibromyalgia, OA, celiac, UC, polycythemia, likely NHL, presenting for hospital follow up The patient was hospitalized, most recently at [facility] from 12/06-12/10/24. She presenting with 2 day history of wrosening chest pain and difficulty breathing. Pt was admitted to the hospital for acute on chronic hypoxic and hypercapnic respiratory failure in the setting of COPD exacerbation with a question of underlying pneumonia. Pt was treated with bronchodilator therapy, IV steroids, and empiric IV antibiotics ultimately to good effect. Patient's symptoms gradually improved until the day of discharge pt was back at baseline with both her breathing and on her home supplemental oxygen. Pt reports that she goes into a COPD exacerbation as soon as her steroid treatment ends, and she believes she should be on chronic steroids. Pt also complained of dysphagia during hospital stay, and was seen and evaluated by speech where she passed her swallow evaluation that was without any overt signs of aspiration. However, suggestion is for pt to follow up with PCP for outpatient modified barium swallow. She reports continued fatigue. Oxygen saturation is good on her 02 as long as she is at rest. She needs frequent outpatient follow up The patient was admitted at [facility] from 07/27-07/30/24 for progressive sob and cough. she was treated for acute on chronic hypoxic resp failure secondary to Acute copd exacerbation and treated with continues supplemental O2 with goal of 88-92, IV steroids, nebulizers charlette and PRN , mucinex as well as empiric antibiotics for bronchitis coverage as she had neg resp. pathogen panel. Improved slowly over the course of hospital stay and weaned down O2 supplement with good tolerance as she was able to ambulate with no significant dyspnea or hypoxia. Intermittently confusion, hypersomnolence some ongoing balance issues, increased headaches and poor coordination, vertigo. She should continue senior living home services. Heme/Onc: Patient follows for polycythemia. Had previous peripheral smear concerning for lymphoproliferative disorder ([facility]). Recent smear more reassuring. 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 Per patients she was scheduled for endoscopy/colonoscopy for evaluation however anesthesia wanted this held -she underwent pulmonary work up, cardiac work up. Endocrine: Type 2 diabetes: On humalog 25 units TID-increasing to 30 today, tresiba 40 units daily-increasing to 50 today, metformin twice daily. GI: History of duodenitis, esophagatis, colitis. Had double endoscopy 2020. Seen in 2022 with GI. She believes movantik though she reports this gave her opiate withdrawal. She is having increased dysphagia. Increased dental issues. She thinks her sjogrens is acting up. Barium swallow pending Pulm: Diagnosed with COPD. TENISHA on cpap. Following with Dr Nevarez. CV: HTN on amlodipine. Echo performed. Hyperdynamic EF>70%. pulmonary hypertension ID: Frequent UTI. Underwent mon pubis lift at [facility]. continues to have recurrent UTI symptoms MSK/Rheum: Chronic pain: Multifactorial-RA/Sjogrens/Fibromyalgia/osteoarthrits/neuropathy. MRI 2020 disc desiccation at L5-S1 with annular bulge, disc protrustion, bony facet arthropathy on left L5-s1 impacting lateral aspect of the traversing left S1 nerve root. She repeated MRI in 2023. 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 Was following at pain management at [facility], previous to that Dr Wilkinson. On chronic opiate therapy, HCQ. Non compliant with preventive ROS see HPI PHYSICAL EXAM: GENERAL: Alert and oriented x 3. NAD. fatigued, pallor EYES: EOMI. Anicteric. HENT: Moist mucous membranes. Poor dentition. No scleral icterus. No cervical lymphadenopathy. LUNGS: Decreased air entry. Scattered coarse rhonci CARDIOVASCULAR: Regular rate and rhythm. ABDOMEN: Soft, non-tender +bs EXTREMITIES: Trace b/l edema. SKIN: warm NEUROLOGIC: No focal neurological deficits. CN II-XII grossly intact PSYCHIATRIC: Cooperative. Appropriate mood and affect [facility] Medical History (Updated 12/23/24 @ 15:19 by Dottie Douglass MD) Sezary disease Supplemental oxygen dependent Leg edema, left Chest pain Sjogrens syndrome Insulin 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 2 diabetes COPD (chronic obstructive pulmonary disease) Congestive heart failure Atelectasis Lymphoproliferative disorder TENISHA (obstructive sleep apnea) Emphysema lung Pulmonary hypertension Tobacco dependence due to cigarettes Diabetes mellitus with hyperglycemia Chronic pain syndrome correction (current) use of opiate analgesic Osteoporosis Rheumatoid arthritis Osteoarthritis Chronic, continuous use of opioids GERD (gastroesophageal reflux disease) Hx of difficult intubation Smoker COPD (chronic obstructive pulmonary disease) Asthma Polycythemia Boils Eczema Bursitis Disc degeneration Sleep apnea Diabetes Fibromyalgia Surgical History History of esophagogastroduodenoscopy (EGD) Hx of tonsillectomy History of surgical removal of pilonidal cyst Hx of plastic surgery Hx of hysterectomy Hx of cholecystectomy Hx of appendectomy History of colonoscopy History of bladder suspension procedure History of removal of cyst Family History Mother Polycythemia TIA (transient ischemic attack) Father Heart attack Other No family history of cancer Social History Household Members: Spouse Housing: House Are you a primary point of care technician to a significant other at home: No Do you presently have visiting nurse or other home services: Yes ([facility]) Alcohol intake: never Comment: pt refusing alarm. Patient Tobacco Use Status: Current everyday Tobacco user Tobacco use type: Cigarette Cigarette Packs Per Day: 1 Cigarettes Per Day: 10 Years Smoked: 51 e-Cigarette/Vaping Use: Never Used Second Hand Smoke Exposure: No Advance Directives Date on File: 12/24/19 service: No Current occupational status: retired 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 Cognitive needs: No Hearing needs: No Vision needs: No Questionnaire Thrive Questionnaire Date Thrive assessed: 02/20/24 I am a: Patient What is your living situation today?: I have a steady place to live Within the past 12 months, did the food you bought not last and you didn't have the money to get more?: I choose not to answer this question Within the past 12 months, did you worry whether your food would run out before you got money to buy more?: I choose not to answer this question Do you have trouble paying for medicines?: I choose not to answer this question Do you have trouble getting transportation to medical appointments?: I choose not to answer this question Do you have trouble paying your heating and electricity bill?: I choose not to answer this question Do you have trouble taking care of your child, family member or friend?: I choose not to answer this question Do you have trouble with day-to-day activities such as bathing, preparing meals, shopping, managing finances, etc.?: I choose not to answer this question Are you currently unemployed and looking for a job?: I choose not to answer this question Are you interested in more education?: I choose not to answer this question Please select the resources that you would like help with: None Currently or been in a relationship where the following occur: No concerns reported THRIVE Score: 0 BERNARDO-7 AMB Questionnaire BERNARDO-7 Date BERNARDO - 7 assessed: 02/13/24 Source: Developed by Drs. Sumanth Stover, Sun Dan, Pavel Mckenzie and colleagues, with an educational joy from [employer]. Physical exam (Primary Care) Vital Signs: Last Vital Signs Temp 98.6 F 12/21/24 14:28 Pulse 93 12/21/24 14:28 Resp 20 12/21/24 14:28 BP 122/64 12/21/24 14:28 Pulse Ox 94 12/21/24 14:28 Oxygen Delivery Method Room Air 12/21/24 14:28 BMI result Body Mass Index 34.0 Tobacco/Smoking Status: Tobacco use Status Tobacco use date assessed 12/21/24 12/21/24 14:31 Patient Tobacco Use Status Current everyday Tobacco 12/21/24 14:28 Tobacco use type Cigarette 12/21/24 14:28 e-Cigarette/Vaping Use Never Used 12/21/24 14:28 Thrive Assessment: Date of Thrive Assessment Date Thrive assessed 02/20/24 12/21/24 14:22 Currently or been in a relationship where the following occur: No concerns reported Coding Level of Care Code Est Pt Level 4 (24997) Complex EM visit Add On G2211 Diagnoses Type 2 diabetes mellitus with hyperglycemia, unspecified whether intermodal customer service insulin use E11.65 Diabetes mellitus type: type 2 Diabetes mellitus senior living insulin use: unspecified intermodal customer service insulin use status Diabetes mellitus complication status: with hyperglycemia Hospitalization within last 30 days Z92.89 Sjogren's syndrome, with unspecified organ involvement M35.00 Sjogren organ or system involvement: unspecified organ involvement Chronic obstructive pulmonary disease, unspecified COPD type J44.9 COPD type: unspecified COPD Assessment & Plan Assessment & Plan (1) Diabetes: Comment: IDDM. Code(s): E11.9 - Type 2 diabetes mellitus without complications Category: Medical Qualifiers: Diabetes mellitus type: type 2 Diabetes mellitus intermodal customer service insulin use: unspecified intermodal customer service insulin use status Diabetes mellitus complication status: with hyperglycemia Qualified Code(s): E11.65 - Type 2 diabetes mellitus with hyperglycemia (2) Hospitalization within last 30 days: Code(s): Z92.89 - Personal history of other medical treatment Category: Medical (3) Sjogrens syndrome: Code(s): M35.00 - Sjogren syndrome, unspecified Category: Medical Qualifiers: Sjogren organ or system involvement: unspecified organ involvement Qualified Code(s): M35.00 - Sjogren syndrome, unspecified (4) COPD (chronic obstructive pulmonary disease): Code(s): J44.9 - Chronic obstructive pulmonary disease, unspecified Category: Medical Qualifiers: COPD type: unspecified COPD Qualified Code(s): J44.9 - Chronic obstructive pulmonary disease, unspecified Plan 64 year old presenting for hospital follow up Hospital course reviewed. Meds reconciled COPD on . Close pulm follow up. Frequent hospitalization Uncontrolled diabetes-increase meal time and basal insulin-30 tid cc and 50 QD. continue metformin. referral CDE for CGM teaching Dysphagia, sjogrens-barium swallow ordered Follow up 4-6 weeks Orders: Orders [place] Modified Barium Swallow 12/21/24 M35.00 - Sjogren syndrome, unspecified, T17.908A - Unspecified foreign body in respiratory tract, part unspecified causing other injury, initial encounter Referrals Diabetes Education Referral E11.65 - Type 2 diabetes mellitus with hyperglycemia, Z79.4 - correction (current) use of insulin Medications: New prednisone 5 mg PO DAILY 90 tabs 3RF [electric scooter] continuous 1 ea 0RF J44.9 - Chronic obstructive pulmonary disease, unspecified, M35.00 - Sjogren syndrome, unspecified, R53.1 - Weakness, Z99.81 - Dependence on supplemental oxygen Changed From insulin glargine-yfgn 40 units subcut DAILY To insulin glargine-yfgn 50 units (0.5 mL) subcut DAILY 10 mL 3RF Discontinued prednisone see taper instructions Take 40 mg (4 tabs) daily for the next 3 days, then Take 30 mg (3 tabs) daily for the next 3 days, then Take 20 mg (2 tabs) daily for the next 3 days, then Take 10 mg (1 tab) daily for the next 3 days Discontinued Reason: Doctor's Order 10 mg PO DIRECTED 30 tabs 0RF prednisone see taper instructions Take one tablet daily for the next 7 days. Begin after prednisone taper, starting on 12/23 Discontinued Reason: Doctor's Order 5 mg PO DIRECTED 7 tabs 0RF pregabalin Discontinued Reason: Doctor's Order 75 mg PO BID 180 caps 3RF
[2024-12-21 14:28] VITALS: BP 122/64; PULSE 93; RESP 20; TEMP 37; O2SAT 94; BMI 34.0
--- OUTSIDE RECORDS SUMMARY | 2024-12-21 17:21 | XMS_ITS | Clinical Summary ---
Author Organization [facility] Address [address] [place] [address] Care Team Providers Care Mechanical And Auto Body Car Checker Name Role Phone Dottie Douglass MD Primary Care Provider [phone] Allergies Active Allergy Reactions Criticality Noted Date [...] (four) hours as needed. 5 Active butalbital-aspir br-hwwzwooz-kunh ine (FioriNAL WITH CODEINE) [id number] MG capsule Take 1 capsule by mouth [...] Most Recently Relevant to Health Maintenance Insurance [facility] [employer] Advance Directives * Full Code (Latest Code Status on File) Date Activated Date Inactivated Comments 03/24/2019 5:36 AM Question Answer Comments Decision Thoroughly Discussed with: Patient * Full Code Date Activated Date Inactivated Comments 03/23/2019 9:33 AM 03/24/2019 5:36 AM Care Teams Mechanical And Auto Body Car Checker Relationship Specialty Start Date End Date Dottie Douglass MD PCP - General Internal Medicine 08/04/17
--- OUTSIDE RECORDS SUMMARY | 2024-12-21 17:21 | XMS_ITS | Patient Health Record ---
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 analgesic (Z79.891) Active confirmed Plan Of Treatment Pending Test Test Name Order Date COCAINE QUANTITATIVE 05/07/2022 OXYCODONE QUANTITATIVE 05/07/2022 BARBITURATES QUANTITATIVE 05/07/2022 METHADONE QUANTITATIVE 05/07/2022 MDMA (ECSTASY) QUANTITATIVE 05/07/2022 TRAMADOL QUANTITATIVE 05/07/2022 FENTANYL QUANTITATIVE 05/07/2022 BUPRENORPHINE QUANTITATIVE 05/07/2022 BENZODIAZEPINE QUANTITATIVE 05/07/2022 OPIATES QUANTITATIVE 05/07/2022 MUSCLE RELAXANT, QUANTITATIVE 05/07/2022 Amphetamine 05/07/2022 LAB REPORT 05/07/2022 [facility] DRUG PANEL,UR 05/07/2022 Insurance Providers Payer Name Payer Address Payer Phone Subscriber Number Group Number Insured Name Patient Relationship to Insured Coverage Start Date Coverage End Date [facility] [employer] [address] [place] [address] [id number] BRITNEY Keane Spouse - patient is the [...]
--- OUTSIDE RECORDS SUMMARY | 2024-12-21 17:21 | XMS_ITS | Clinical Summary ---
Author Organization [facility] Address [address] [place] [address] Care Team Providers Care Rotary Driller Prospecting Name Role Phone Dottie Douglass MD Primary Care Provider [phone] Allergies Active Allergy Reactions Criticality Noted Date [...] T PO BID 0 06/17/19 19 Active SocialanceTOUCH ULTRA CONTROL solution See admin instructions. 0 [...] complete this topic Insurance [employer] Care Teams Rotary Driller Prospecting Relationship Specialty Start Date End Date Dottie Douglass MD [address] [address] PCP - General Internal Medicine 10/13/20
--- OUTSIDE RECORDS SUMMARY | 2024-12-21 17:21 | XMS_ITS | Clinical Summary ---
Author Organization [facility] Address [address] [place] [address] Care Team Providers Care Home Manager Name Role Phone Dottie Douglass MD Primary Care Provider [phone] Allergies Active Allergy Reactions Criticality Noted Date [...] age to complete this topic Care Teams Home Manager Relationship Specialty Start Date End Date Dottie Douglass MD PCP - General Internal Medicine 07/08/16
--- OUTSIDE RECORDS SUMMARY | 2024-12-21 17:21 | XMS_ITS | Encounter Summary ---
Author Organization [facility] Address [address] [place] [address] Care Team Providers Care Tile Layer Drainage Name Role Phone Dottie Douglass MD Primary Care Provider [phone] Encounter Details Date Type Department Care Team (Late st Contact Info) Description 09/25/2017 Scanned Document [facility] Plastic & Reconstructive Surgery [address] [place] [address] Nito Epperson MD [address] [facility] [address] [place] [address] Social History Tobacco Use Types Packs/Day Years [...] on filedocumented in this encounter Care Teams Tile Layer Drainage Relationship Specialty Start Date End Date Dottie Douglass MD PCP - General Internal Medicine 08/04/17 documented as of this encounter
--- OUTSIDE RECORDS SUMMARY | 2024-12-21 17:21 | XMS_ITS | Encounter Summary ---
Author Organization [facility] Address [address] [place] [address] Care Team Providers Care C Java Developer Name Role Phone Dottie Douglass MD Primary Care Provider [phone] Encounter Details Date Type Department Care Team (Late st Contact Info) Description 01/02/2018 Scanned Document [facility] Plastic & Reconstructive Surgery [place] [address] [facility] [address] [place] [address] Nito Epperson MD [address] [facility] [address] [place] [address] Social History Tobacco Use Types Packs/Day Years [...] on filedocumented in this encounter Care Teams C Java Developer Relationship Specialty Start Date End Date Dottie Douglass MD PCP - General Internal Medicine 08/04/17 documented as of this encounter
== END 2024-12-21 14:59 | disposition home or self-care (01) ==
LOC: HO.HMCFM 14:21
PROVIDERS: PCP Internal Medicine; Visit Provider Internal Medicine
DX: E11.65 Type 2 diabetes mellitus with hyperglycemia (principal); Z92.89 Personal history of other medical treatment; M35.00 Sjogren syndrome, unspecified; J44.9 Chronic obstructive pulmonary disease, unspecified

== ENCOUNTER 2024-12-28 06:46 | Emergency (ER) | payer OTHER, SELFPAY ==
[2024-12-28] VITALS (7 sets, daily range): BP systolic 116–159; BP diastolic 50–69; PULSE 74–92; RESP 16–24; TEMP -17.7–37.2; O2SAT 88–96; BMI 34.7
--- NOTE | ~2024-12-28 | XR_ITS ---
EXAMINATION: XR CHEST CLINICAL INFORMATION: CP COMPARISON: X-ray 12/06/2024 TECHNIQUE: Frontal view of the chest was obtained. FINDINGS: Devices: Overlying cardiac leads Cardiomediastinal: Cardiac silhouette size is within normal limits, stable. Lungs and pleura: Stable mild central vascular prominence. Streaky hazy opacities right lung base. Hazy opacity in the left retrocardiac region. Small left pleural effusion. No pneumothorax is seen. Bones: Thoracic spine degeneration. Right shoulder arthroplasty. Miscellaneous: No acute findings in the upper abdomen. XR/XR chest 1V IMPRESSION: 1. Streaky hazy opacities in the right lung base, could reflect atelectasis or infiltrate. 2. Left retrocardiac hazy opacities could reflect atelectasis or infiltrate. 3. Small left pleural effusion. Electronically signed by: Elieser Sheikh MD 12/28/2024 08:08 AM [facility] [place]
--- NOTE | ~2024-12-28 | CT_ITS ---
EXAMINATION: CT CHEST WITHOUT CONTRAST CLINICAL INFORMATION: Chest pain. COMPARISON: October 21, 2024. TECHNIQUE: Multidetector volumetric CT imaging of the chest was done. Axial MIP volume rendering provided. Sagittal and coronal reformatted images were obtained. This CT examination was performed using dose optimization techniques as appropriate, variously including the following: *Automated exposure control *Adjustment of mA and/or kV according to patient size (this includes techniques or standardized protocols for targeted exams where dose is matched to indication/reason for exam; i.e. extremities or head) *Use of iterative reconstruction technique DLP: 392 mGy-cm FINDINGS: DIRECTOR BLOOD BANK: Patient's large body habitus. Pulmonary reticular pattern. Cardiomediastinal silhouette size is prominent. Metallic prosthesis right humerus with the glenoid component. Vascular clips right upper quadrant abdomen. Right upper extremity to the side of the chest abdomen. Left upper extremity to the side of the head. LUNGS: Honeycombing in the periphery of the upper lung lobes and to a lesser extent lower lung lobes. No gross consolidation. No gross pulmonary nodules. No gross bronchiectasis. Layering secretions within the left and to a lesser extent right mainstem bronchi. MEDIASTINUM: Mediastinal lymphadenopathy. No pericardial effusion. No aneurysm, thoracic aorta. Calcified plaques in the thoracic aortic arch and the origin of the brachiocephalic trunk and left subclavian. Thyroid gland is not enlarged. No pneumomediastinum. No hemopericardium. CORONARY ARTERY CALCIFICATION: Calcified plaques. PLEURA: No pleural effusion. No pneumothorax. No calcified pleural plaques. No hemothorax. AXILLA: No lymphadenopathy. UPPER ABDOMEN: Small hiatal hernia. Calcified plaque in the splenic artery. Calcified plaque in the abdominal aorta and the origin of the renal arteries. Status post cholecystectomy, laparoscopic. Dystrophic calcification left hepatic lobe. The liver is enlarged. OSSEOUS STRUCTURES: Osteopenia versus osteoporosis. Multilevel spondylosis without acute fracture or gross listhesis. Sternum is intact. Status post arthroplasty prosthesis, right shoulder. No acute rib fracture. CT/CT chest wo IV con IMPRESSION: Concerning aspiration. Bilateral honeycombing prominently upper lung lobes and mediastinal lymphadenopathy. Consider sarcoidosis in the correct clinical settings. Hepatomegaly.. Fleischner guidelines were followed. Electronically signed by: Filippo Prieto MD 12/28/2024 09:21 AM EST
--- NOTE | 2024-12-28 06:49 | ECG_ITS ---
Test Reason : cp Blood Pressure : */* mmHG Vent. Rate : 86 BPM Atrial Rate : 86 BPM P-R Int : 150 ms QRS Dur : 80 ms QT Int : 360 ms P-R-T Axes : 58 109 48 degrees QTcB Int : 430 ms Normal sinus rhythm Possible Left atrial enlargement Rightward axis Anterior infarct , age undetermined Abnormal ECG When compared with ECG of 06-Dec-2024 16:45, Premature supraventricular complexes are no longer Present Anterior infarct is now Present Referred By: Rosana Ann Electronically Signed By: RA ROBERSON MD
--- NOTE | 2024-12-28 06:51 | ED.GENADULT ---
HPI - General Adult General Chief complaint: Chest Pain Stated complaint: CP History of Present Illness ED Provider: Dr. Ann HPI narrative: 64 y/o F patient; PMH COPD, sjogren's syndrome, T2DM, pulmonary HTN, TENISHA, acute on chronic respiratory failure on baseline 4L O2, cardiomyopathy; presents from home via EMS with report of shortness of breath and cough for approx the last 3 days. She noticed her LLE becoming more swollen. She otherwise denies: fever or chills, nausea/vomiting, abdominal pain, syncope. Patient does continue to use nicotine. Related Data Home Medications ?Medication ?Instructions ?Recorded ?Confirmed aspirin 325 mg tablet 325 mg PO BID@0030,122909/27/20 12/06/24 hydroxychloroquine 200 mg tablet 200 mg PO DAILY@2907/27/24 12/06/24 losartan 25 mg tablet 25 mg PO DAILY@2907/27/24 12/06/24 magnesium oxide 400 mg (241.3 mg 400 mg PO DAILY@2907/27/24 12/06/24 magnesium) tablet metformin 1,000 mg tablet 1,000 mg PO BID@29,122907/27/24 12/06/24 pramipexole 0.25 mg tablet 1 mg PO DAILY@122907/27/24 12/06/24 albuterol sulfate 90 mcg/actuation 2 puff inhalation Q6H PRN wheezing 09/13/24 12/06/24 aerosol inhaler montelukast 10 mg tablet 10 mg PO BEDTIME@2909/13/24 12/06/24 tiotropium 2.5 mcg-olodaterol 2.5 2 puff inhalation DAILY@122909/13/24 12/06/24 mcg/actuation mist for inhalation (Stiolto Respimat) furosemide 40 mg tablet (Lasix) 40 mg PO DAILY@122909/28/24 12/06/24 lidocaine 4 % topical patch 3 patch transdermal DAILY PRN Pain 11/04/24 12/06/24 (Lidocaine Pain Relief) nicotine (polacrilex) 4 mg buccal 4 mg buccal Q4H PRN nicotine 11/04/24 12/06/24 lozenge cravings nystatin 100,000 unit/mL oral 5 ml PO DAILY 11/04/24 12/06/24 suspension One touch ultra test strips 11/15/24 baclofen 10 mg tablet 10 mg PO BID PRN Pain 12/06/24 12/06/24 insulin lispro 100 unit/mL 30 unit subcut TIDAC 12/21/24 12/21/24 subcutaneous pen Previous Rx's ?Medication ?Instructions ?Recorded blood-glucose meter #1 ea 08/25/23 FreeStyle Mag 3 Plus Sensor #6 ea 12/16/23 (blood-glucose sensor) FreeStyle Mag 3 [place] #1 ea 12/16/23 (blood-glucose,data designer,cont) Oxygen Home Use #1 ea 04/16/24 Dexcom G7 Food Assembler #1 ea 08/09/24 (blood-glucose,data designer,cont) Dexcom G7 Sensor (blood-glucose #6 ea 08/09/24 sensor) amlodipine 10 mg tablet 10 mg PO DAILY@0030 #90 tabs 08/09/24 ondansetron 4 mg disintegrating 4 mg PO Q8H PRN nausea and 08/09/24 tablet vomiting #30 tabs nsiqhcj-qpmddgcyko-DBZ-caffeine 30 1 cap PO QID PRN headache 28 days 11/17/24 mg-50 mg-325 mg-40 mg capsule #28 caps Onetouch Delica Safety Lancet 30 #300 ea 11/30/24 gauge (lancets) codeine 10 mg-guaifenesin 100 mg/5 5 ml PO Q6H #120 mL 12/10/24 mL oral liquid (Guaifenesin AC) OneTouch Ultra Test (blood sugar #300 ea 12/13/24 diagnostic) morphine 30 mg tablet,extended 30 mg PO BID@0030,1230 28 days #56 12/13/24 release tabs oxycodone 10 mg tablet 10 mg PO QID PRN pain 28 days #112 12/13/24 tabs electric scooter #1 ea 12/21/24 insulin glargine-yfgn 100 unit/mL 50 unit (0.5 mL) subcut DAILY #10 12/21/24 subcutaneous solution mL prednisone 5 mg tablet 5 mg PO DAILY #90 tabs 12/21/24 pantoprazole 40 mg tablet,delayed 40 mg PO DAILY@0630 #90 tabs 12/28/24 release Allergies Allergy/AdvReac Type Severity Reaction Status Date / Time acetaminophen (From TYLENOL) Allergy Severe Anaphylaxis Verified 12/28/24 07:00 atorvastatin (From LIPITOR) Allergy Severe Difficulty Verified 12/28/24 07:00 Breathing azithromycin (AZITHROMYCIN) Allergy Severe Difficulty Verified 12/28/24 07:00 Breathing mite-Dermatophagoides Allergy Severe Difficulty Verified 12/28/24 07:00 farinae, vicente (dust mite - Breathing [place]) sumatriptan (From IMITREX) Allergy Severe Difficulty Verified 12/28/24 07:00 Breathing house dust Allergy Mild Unknown Verified 12/28/24 07:00 adhesive tape (ADHESIVE TAPE) Allergy Unknown Rash Verified 12/28/24 07:00 gentamicin (GENTAMICIN) Allergy Unknown Rash Verified 12/28/24 07:00 adalimumab (From Humira) Allergy Rash Verified 12/28/24 07:00 erythromycin base Allergy Unknown Verified 12/28/24 07:00 haloperidol (From HALDOL) AdvReac Unknown GI Issues Verified 12/28/24 07:00 ketorolac (From TORADOL) AdvReac Unknown Muscle Verified 12/28/24 07:00 cramps prasterone (DHEA) (From DHEA) AdvReac Unknown Cardiac Verified 12/28/24 07:00 issues varenicline (From CHANTIX) AdvReac Unknown Seizure Verified 12/28/24 07:00 ipratropium (From Atrovent) AdvReac Migraine Verified 12/28/24 07:00 [facility] Past Medical History Medical History (Updated 12/28/24 @ 11:30 by Rosana Ann MD) Sezary disease Supplemental oxygen dependent Leg edema, left Chest pain Sjogrens syndrome Insulin 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 2 diabetes COPD (chronic obstructive pulmonary disease) Congestive heart failure Atelectasis Lymphoproliferative disorder TENISHA (obstructive sleep apnea) Emphysema lung Pulmonary hypertension Tobacco dependence due to cigarettes Diabetes mellitus with hyperglycemia Chronic pain syndrome half-way (current) use of opiate analgesic Osteoporosis Rheumatoid arthritis Osteoarthritis Chronic, continuous use of opioids GERD (gastroesophageal reflux disease) Hx of difficult intubation Smoker COPD (chronic obstructive pulmonary disease) Asthma Polycythemia Boils Eczema Bursitis Disc degeneration Sleep apnea Diabetes Fibromyalgia Surgical History History of esophagogastroduodenoscopy (EGD) Hx of tonsillectomy History of surgical removal of pilonidal cyst Hx of plastic surgery Hx of hysterectomy Hx of cholecystectomy Hx of appendectomy History of colonoscopy History of bladder suspension procedure History of removal of cyst Family History Family History Mother Polycythemia TIA (transient ischemic attack) Father Heart attack Other No family history of cancer Social History Social History Household Members: Spouse Housing: House Are you a primary respiratory care assistant to a significant other at home: No Do you presently have visiting nurse or other home services: Yes ([facility]) Alcohol intake: never Comment: pt refusing alarm. Patient Tobacco Use Status: Current everyday Tobacco user Tobacco use type: Cigarette Cigarette Packs Per Day: 1 Cigarettes Per Day: 10 Years Smoked: 51 Smoked in Last 30 Days: Yes e-Cigarette/Vaping Use: Never Used Second Hand Smoke Exposure: No Use of substances other than those prescribed or required for medical reasons: No Advance Directives: Yes Advance Directives on File: Yes Advance Directives Date on File: 12/24/19 Do you have a plan to hurt others: No Plan service: No Current occupational status: retired 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 Cognitive needs: No Hearing needs: No Vision needs: No Physical Exam ED Vital Signs: Vital Signs - 24 hr 12/28/24 06:51 12/28/24 07:25 12/28/24 07:31 Temperature 99.0 F Pulse Rate 81 86 87 Respiratory Rate 20 24 H 24 H Blood Pressure 133/50 L Pulse Oximetry 88 L 94 Oxygen Delivery Method Room Air Nasal Cannula Oxygen Flow Rate 2 12/28/24 10:46 12/28/24 11:28 12/28/24 12:16 Temperature Pulse Rate 77 75 Respiratory Rate 16 16 Blood Pressure 125/59 L 116/55 L Pulse Oximetry 94 Oxygen Delivery Method Nasal Cannula Oxygen Flow Rate 2 BMI result Body Mass Index 34.7 Extrem Other: LLE: 2+ non-pitting edema RLE: Unremarkable Course Course Course Narrative: Patient is afebrile and hemodynamically stable. Reviewed the patient's recent relevant medical records. Last seen in this emergency department on 12/06/2024 for chest pain with cough. She ultimately required admission for increased WOB. She was admitted from 12/06 - 12/10/2024. She states every time her steroid taper ends her symptoms exacerbate. Will obtain EKG, CXR, labs. Started on bronchodilator protocol. Labs reviewed. VBG is reassuring. No significant leukocytosis. No significant anemia. Troponin is within normal limits. BNP is 148.7, prior 219.2 in 12/06/2024 and 444 in 11/04/2024. CXR notable for right lung base and left retrocardiac opacities. Will obtain CT Chest to better visualize. Small left pleural effusion. Provided a dose of morphine for pain control. Patient has a known history of asymmetric LLE swelling. She had reassuring US 12/06 which did not show DVT. She had a CTA 10/21 which did not show pulmonary emboli. COVID/Flu/RSV negative. CT reviewed. CT with concern for aspiration due to layering of secretions in the left and right mainstem bronchi. No gross consolidation. Plan for repeat troponin. If 2nd troponin is negative, unlikely active ACS. Mild congestion but no indication for admission as patient is on her home O2 and doing well on it. No evidence of pneumonia on CT scan. Patient feels comfortable with plan for discharge to home and close PCP/cardiology follow up outpatient. Plan: Discharge to home Condition: Stable Medications Administered Discontinued Medications Generic Name Dose Route Start Last Admin Trade Name Freq PRN Reason Stop Dose Admin Albuterol Sulfate 5 mg/ 7.5 mg 12/28/24 07:20 12/28/24 07:24 Albuterol Sulfate 2.5 mg INHALE 12/28/24 07:21 7.5 mg ONCE ONE Administration Albuterol Sulfate 2.5 mg/ 5 mg 12/28/24 11:20 12/28/24 11:27 Albuterol Sulfate 2.5 mg INHALE 12/28/24 11:21 5 mg ONCE ONE Administration Furosemide 40 mg 12/28/24 11:30 12/28/24 12:16 Furosemide 40 Mg/4 Ml Vial IVPUSH 12/28/24 11:31 40 mg ONCE ONE Administration Protocol Morphine Sulfate 2 mg 12/28/24 08:18 12/28/24 08:33 Morphine Sulfate 4 Mg/Ml Cartridge IVPUSH 12/28/24 08:19 2 mg ONCE ONE Administration Protocol Medical Decision Making Lab Data 12/28/24 07:29 12/28/24 07:29 Labs: Lab Results 12/28/24 12/28/24 12/28/24 Range/Units 07:29 07:33 12:22 WBC 10.2 (4.8-10.8) X10*3/uL RBC 5.69 H (4.20-5.50) X10*6/uL Hgb 15.5 (12.0-16.0) g/dl Hct 48.0 H (37.0-47.0) % MCV 84.4 (80.0-98.0) fL MCH 27.2 (27.0-33.0) pg MCHC 32.3 (31.0-35.0) g/dl RDW 19.2 H (11.0-16.0) % Plt Count 233 D (160-400) X10*3/uL MPV 9.8 (9.4-12.3) fL Immature Gran % (Auto) 0.7 H (0.0-0.4) % Neut % (Auto) 75.5 H (45-73) % Lymph % (Auto) 17.4 L (20-40) % Briscoe % (Auto) 4.3 (2-11) % Eos % (Auto) 1.6 (0-4) % Baso % (Auto) 0.5 (0-2) % Lymph # (Auto) 1.8 (1.2-4.9) X10*3/uL [place]iscoe # (Auto) 0.4 (0.1-1.2) X10*3/uL Eos # (Auto) 0.2 (0.0-0.4) X10*3/uL Baso # (Auto) 0.1 (0.0-0.2) X10*3/uL Abs Immat Gran (auto) 0.07 H (0.00-0.03) X10*3/uL Absolute Neuts (auto) 7.7 (2.0-8.3) x10*3/uL Absolute Nucleated RBC 0.000 (0.0-0.012) X10*3/uL Nucleated RBC % (auto) 0.0 (0.0-0.2) /100WBC VBG pH 7.43 (7.32-7.43) VBG pCO2 44 mmHg VBG pO2 89 mmHg VBG HCO3 29 H (22-26) mmol/L VBG O2 Saturation 99.0 % VBG Base Excess 4.7 mmol/L Sodium 134 L (135-145) mmol/L Potassium 4.5 (3.3-5.1) mmol/L Chloride 98 (96-108) mmol/L Carbon Dioxide 25 (22-29) mmol/L Anion Gap 16 (12-20) BUN 11 (9-16) mg/dL Creatinine 0.63 (0.5-1.4) mg/dL Estim Creat Clear Calc 100.3 Estimated GFR > 60 Random Glucose 236 H (60-115) mg/dL Calcium 9.1 (8.4-10.2) mg/dL Total Bilirubin 0.3 (0.0-1.0) mg/dL Direct Bilirubin 0.1 (0.0-0.5) mg/dL AST 20 (5-31) U/L ALT 21 (0-31) U/L Alkaline Phosphatase 89 (39-117) U/L Troponin I High Sens 4.5 5.4 (<3.5-17.0) ng/L NT-Pro-B Natriuret Pep 148.7 (<300) pg/mL Total Protein 6.8 (6.5-8.0) g/dL Albumin 3.9 (3.5-5.0) g/dL Lipase 14 (8-78) U/L Influenza Type A (PCR) NEGATIVE (Negative) Influenza Type B (PCR) NEGATIVE (Negative) RSV RNA Qual (PCR) NEGATIVE (Negative) SARS-CoV-2 RNA (RT-PCR) NEGATIVE (Negative) Independent Interpretation I performed an independent interpretation of an: EKG Interpretation: EKG independently interpreted by myself as NSR 86BPM with normal inervals. Radiology Impression Discussion of test interpretation with radiology: I have reviewed the radiologist's reading. Radiologist Impression: EXAMINATION: CT CHEST WITHOUT CONTRAST CLINICAL INFORMATION: Chest pain. COMPARISON: October 21, 2024. TECHNIQUE: Multidetector volumetric CT imaging of the chest was done. Axial MIP volume rendering provided. Sagittal and coronal reformatted images were obtained. This CT examination was performed using dose optimization techniques as appropriate, variously including the following: *Automated exposure control *Adjustment of mA and/or kV according to patient size (this includes techniques or standardized protocols for targeted exams where dose is matched to indication/reason for exam; i.e. extremities or head) *Use of iterative reconstruction technique DLP: 392 mGy-cm FINDINGS: DIRECTOR PRINT: Patient's large body habitus. Pulmonary reticular pattern. Cardiomediastinal silhouette size is prominent. Metallic prosthesis right humerus with the glenoid component. Vascular clips right upper quadrant abdomen. Right upper extremity to the side of the chest abdomen. Left upper extremity to the side of the head. LUNGS: Honeycombing in the periphery of the upper lung lobes and to a lesser extent lower lung lobes. No gross consolidation. No gross pulmonary nodules. No gross bronchiectasis. Layering secretions within the left and to a lesser extent right mainstem bronchi. MEDIASTINUM: Mediastinal lymphadenopathy. No pericardial effusion. No aneurysm, thoracic aorta. Calcified plaques in the thoracic aortic arch and the origin of the brachiocephalic trunk and left subclavian. Thyroid gland is not enlarged. No pneumomediastinum. No hemopericardium. CORONARY ARTERY CALCIFICATION: Calcified plaques. PLEURA: No pleural effusion. No pneumothorax. No calcified pleural plaques. No hemothorax. AXILLA: No lymphadenopathy. UPPER ABDOMEN: Small hiatal hernia. Calcified plaque in the splenic artery. Calcified plaque in the abdominal aorta and the origin of the renal arteries. Status post cholecystectomy, laparoscopic. Dystrophic calcification left hepatic lobe. The liver is enlarged. OSSEOUS STRUCTURES: Osteopenia versus osteoporosis. Multilevel spondylosis without acute fracture or gross listhesis. Sternum is intact. Status post arthroplasty prosthesis, right shoulder. No acute rib fracture. CT/CT chest wo IV con IMPRESSION: Concerning aspiration. Bilateral honeycombing prominently upper lung lobes and mediastinal lymphadenopathy. Consider sarcoidosis in the correct clinical settings. Hepatomegaly.. Fleischner guidelines were followed. Electronically signed by: Filippo Prieto MD 12/28/2024 09:[address] [facility] Discharge Plan Discharge Clinical Impression: Cough, Chest pain, Shortness of breath Patient Disposition: Home, Self-Care Instructions: Chest Pain (DC) Additional Instructions: You were seen today for a cough, chest pain, and shortness of breath. Your emergency department work up was reassuring. You had x2 negative heart tests. There were not signs of pneumonia or significant fluid overload. You received a dose of morphine 2mg IV, a breathing treatment, and lasix 40mg IV x1. Please call your primary doctor and territory manager general sales to discuss your recent emergency department visit and for a close follow up. Return to the emergency department for: Worsening chest pain Worsening shortness of breath Passing out Prescriptions: No Action (DME) blood-glucose meter Kit See Rx Instructions .Route Qty: 1 0RF Rx Instructions: 4 times daily to check blood glucose (DME) Oxygen Home Use Kit See Rx Instructions .Route Qty: 1 3RF Rx Instructions: 2L continuous (DME) One touch ultra test strips See Rx Instructions .Route .MEDSUPPLY Rx Instructions: E11.9 Use to test glucose 3 times a day kufiwip-obzlkrhdal-ICE-caff [id number] mg capsule 1 cap PO QID PRN (Reason: headache) 28 Days Qty: 28 0RF (DME) lancets [Onetouch Delica Safety Lancet] 30 gauge misc See Rx Instructions .Route Qty: 300 3RF Rx Instructions: TID (DME) OneTouch Ultra Test Strip See Rx Instructions .Route Qty: 300 3RF Rx Instructions: three times daily morphine 30 mg tablet extended release 30 mg PO BID@0030,1230 28 Days Qty: 56 0RF oxycodone 10 mg tablet 10 mg PO QID PRN (Reason: pain) 28 Days Qty: 112 0RF pantoprazole 40 mg tablet,delayed release (DR/EC) 40 mg PO DAILY@0630 Qty: 90 2RF aspirin 325 mg Tablet 325 mg PO BID@0030,1230 albuterol sulfate 90 mcg/actuation HFA aerosol inhaler 2 puff INHALATION Q6H PRN (Reason: wheezing) Stiolto Respimat 2.5-2.5 mcg/actuation mist 2 puff INHALATION DAILY@1230 montelukast 10 mg tablet 10 mg PO BEDTIME@0030 furosemide [Lasix] 40 mg tablet 40 mg PO DAILY@1230 baclofen 10 mg tablet 10 mg PO BID PRN (Reason: Pain) codeine-guaifenesin [Guaifenesin AC] 10-100 mg/5 mL liquid 5 ml PO Q6H Qty: 120 0RF magnesium oxide 400 mg (241.3 mg magnesium) tablet 400 mg PO DAILY@0030 metformin 1,000 mg tablet 1,000 mg PO BID@0030,1230 losartan 25 mg tablet 25 mg PO DAILY@0030 pramipexole 0.25 mg tablet 1 mg PO DAILY@1230 hydroxychloroquine 200 mg tablet 200 mg PO DAILY@0030 nystatin 100,000 unit/mL suspension 5 ml PO DAILY Rx Instructions: swish and spit nicotine (polacrilex) 4 mg lozenge 4 mg buccal Q4H PRN (Reason: nicotine cravings) lidocaine [Lidocaine Pain Relief] 4 % adhesive patch,medicated 3 patch transdermal DAILY PRN (Reason: Pain) Protocol: Apply to: Apply to: right anterior chest (DME) FreeStyle Mag 3 Plus Sensor Device See Rx Instructions .Route Qty: 6 3RF Rx Instructions: As directed (DME) FreeStyle Mag 3 [place] Misc See Rx Instructions .Route Qty: 1 0RF Rx Instructions: As directed (DME) Dexcom G7 Sensor Device See Rx Instructions .Route Qty: 6 3RF Rx Instructions: every 15 days (DME) Dexcom G7 Food Assembler Misc See Rx Instructions .Route Qty: 1 0RF Rx Instructions: As directed ondansetron 4 mg tablet,disintegrating 4 mg PO Q8H PRN (Reason: nausea and vomiting) Qty: 30 1RF amlodipine 10 mg tablet 10 mg PO DAILY@0030 Qty: 90 3RF insulin glargine-yfgn 100 unit/mL solution 50 unit subcut DAILY Qty: 10 3RF insulin lispro 100 unit/mL insulin pen 30 unit subcut TIDAC prednisone 5 mg tablet 5 mg PO DAILY Qty: 90 3RF (DME) electric scooter See Rx Instructions .Route .MEDSUPPLY Qty: 1 0RF Rx Instructions: continuous Print Language: Marshallese
[2024-12-28] MEDS: Albuterol Sulfate 5 MG, Albuterol Sulfate (0.083%) 2.5 MG 7.5 MG INHALE (07:24)
[2024-12-28 07:35] LABS: MANUAL DIFF FLAG NO; Venous Blood Gas Refer to POC result
[2024-12-28 07:37] LABS: Hematocrit 48.0 % (37.0-47.0); Hemoglobin 15.5 g/dl (12.0-16.0); Imm Gran Abs Auto 0.07 X10*3/uL (0.00-0.03); Imm Gran Pct Auto 0.7 % (0.0-0.4); Lymphocytes Absolute Auto 1.8 X10*3/uL (1.2-4.9); Mean Corpuscular HGB Conc 32.3 g/dl (31.0-35.0); Mean Corpuscular Hemoglobin 27.2 pg (27.0-33.0); Mean Corpuscular Volume 84.4 fL (80.0-98.0); NRBC Abs Auto 0.000 X10*3/uL (0.0-0.012); NRBC Pct Auto 0.0 /100WBC (0.0-0.2); Platelet Count 233 X10*3/uL (160-400); Red Blood Count 5.69 X10*6/uL (4.20-5.50); White Blood Count 10.2 X10*3/uL (4.8-10.8)
[2024-12-28 07:37] LABS: VBG HCO3 29 mmol/L (22-26); VBG O2 % Saturation 99.0 %
--- OUTSIDE RECORDS SUMMARY | 2024-12-28 07:45 | XMS_ITS | Patient Health Record ---
Author Organization [facility] Address [address] [place] [address] Care Team Providers Care Bit Shaver Name Role Phone MAYI GASPAR MD Primary [...] Risk Notes Problem Lumbosacral spondylosis without myelopathy (63159692) Spondylosis without myelopathy or radiculopathy, lumbar region (M47.816) Active confirmed Problem High risk drug monitoring status (566472965) longterm (current) use of opiate analgesic (Z79.891) Active confirmed Plan Of Treatment Pending Test Test Name Order Date COCAINE QUANTITATIVE 05/07/2022 OXYCODONE QUANTITATIVE 05/07/2022 BARBITURATES QUANTITATIVE 05/07/2022 METHADONE QUANTITATIVE 05/07/2022 MDMA (ECSTASY) QUANTITATIVE 05/07/2022 TRAMADOL QUANTITATIVE 05/07/2022 FENTANYL QUANTITATIVE 05/07/2022 BUPRENORPHINE QUANTITATIVE 05/07/2022 BENZODIAZEPINE QUANTITATIVE 05/07/2022 OPIATES QUANTITATIVE 05/07/2022 MUSCLE RELAXANT, QUANTITATIVE 05/07/2022 Amphetamine 05/07/2022 LAB REPORT 05/07/2022 [facility] 05/07/2022 Insurance Providers Payer Name Payer Address Payer Phone Subscriber Number Group Number Insured Name Patient Relationship to Insured Coverage Start Date Coverage End Date [facility] Blue[employer] [id number] [place] [address] [id number] BRITNEY Keane Spouse - patient is the [...]
--- OUTSIDE RECORDS SUMMARY | 2024-12-28 07:45 | XMS_ITS | Clinical Summary ---
Author Organization [facility] Address [address] [place] [address] Care Team Providers Care Film Cleaner Name Role Phone Dottie Douglass MD Primary Care Provider [phone] Allergies Active Allergy Reactions Criticality Noted Date [...] (four) hours as needed. 5 Active butalbital-aspir ib-jiuwfsxu-aony ine (FioriNAL WITH CODEINE) [id number] MG capsule Take 1 capsule by mouth [...] Most Recently Relevant to Health Maintenance Insurance [facility] [employer] Advance Directives * Full Code (Latest Code Status on File) Date Activated Date Inactivated Comments 03/24/2019 5:36 AM Question Answer Comments Decision Thoroughly Discussed with: Patient * Full Code Date Activated Date Inactivated Comments 03/23/2019 9:33 AM 03/24/2019 5:36 AM Care Teams Film Cleaner Relationship Specialty Start Date End Date Dottie Douglass MD PCP - General Internal Medicine 08/04/17
--- OUTSIDE RECORDS SUMMARY | 2024-12-28 07:45 | XMS_ITS | Clinical Summary ---
Author Organization [facility] Address [address] [place] [address] Care Team Providers Care Research Clerk Name Role Phone Dottie Douglass MD Primary Care Provider [phone] Allergies Active Allergy Reactions Criticality Noted Date [...] T PO BID 0 06/17/19 19 Active AirpushTOUCH ULTRA CONTROL solution See admin instructions. 0 [...] Date Smoking Tobacco: Every Day Cigarettes 1 51.9 Started: 1972 Pipe Smokeless Tobacco: Never Comments:PIPE [...] age to complete this topic Insurance MULTIPLAN Member Subscriber Plan / Payer (Ef fective 2018-Present) Name:Lahson Parra Relation to Subscriber:Spouse Name:MARIANNEBRITNEY Date of :1965 (Home) Address: [address] [place] [address] Payer ID:[id number] (NAIC) Type:HMO Address: [facility] [address] [place] [address] Care Teams Research Clerk Relationship Specialty Start Date End Date Dottie Douglass MD [address] [address] PCP - General Internal Medicine 10/13/20
--- OUTSIDE RECORDS SUMMARY | 2024-12-28 07:45 | XMS_ITS | Encounter Summary ---
Author Organization [facility] Address [address] [place] [address] Care Team Providers Care Career Development Specialist Name Role Phone Dottie Douglass MD Primary Care Provider [phone] Encounter Details Date Type Department Care Team (Late st Contact Info) Description 01/02/2018 Scanned Document [facility] Plastic & Reconstructive Surgery [place] [address] [facility] [address] [place] [address] Nito Epperson MD [address] [place] [address] [address] [place] [address] Social History Tobacco Use Types Packs/Day Years [...] on filedocumented in this encounter Care Teams Career Development Specialist Relationship Specialty Start Date End Date Dottie Douglass MD PCP - General Internal Medicine 08/04/17 documented as of this encounter
--- OUTSIDE RECORDS SUMMARY | 2024-12-28 07:45 | XMS_ITS | Encounter Summary ---
Author Organization [facility] Address [address] [place] [address] Care Team Providers Care Slitter Helper Name Role Phone Dottie Douglass MD Primary Care Provider [phone] Encounter Details Date Type Department Care Team (Late st Contact Info) Description 09/25/2017 Scanned Document [facility] Plastic & Reconstructive Surgery [address] [place] [address] Nito Epperson MD [address] [facility] [address] [place] [address] Social History Tobacco Use Types Packs/Day Years [...] on filedocumented in this encounter Care Teams Slitter Helper Relationship Specialty Start Date End Date Dottie Douglass MD PCP - General Internal Medicine 08/04/17 documented as of this encounter
[2024-12-28 07:54] LABS: Alanine Aminotransferase 21 U/L (0-31); Albumin Level 3.9 g/dL (3.5-5.0); Alkaline Phosphatase 89 U/L (39-117); Anion Gap 16 (12-20); Aspartate Amino Transferase 20 U/L (5-31); Blood Urea Nitrogen 11 mg/dL (9-16); Calcium 9.1 mg/dL (8.4-10.2); Carbon Dioxide 25 mmol/L (22-29); Chloride 98 mmol/L (96-108); Creatinine Clr Calc Pharmacy 100.3; Estimated Glomerular Filt Rate > 60; Lipase 14 U/L (8-78); Potassium 4.5 mmol/L (3.3-5.1); Sodium 134 mmol/L (135-145); Total Protein 6.8 g/dL (6.5-8.0)
[2024-12-28 08:02] LABS: NT Pro B Type Natriuretic Pept 148.7 pg/mL (<300); Troponin-I High Sensitivity 4.5 ng/L (<3.5-17.0)
[2024-12-28 08:19] LABS: Resp Syncy Virus RNA Qual PCR NEGATIVE (Negative); SARS COV2 PCR INHOUSE NEGATIVE (Negative)
[2024-12-28] MEDS: Albuterol Sulfate 2.5 MG, Albuterol Sulfate (0.083%) 2.5 MG 5 MG INHALE (11:27)
--- NOTE | 2024-12-28 12:00 | PC.NURSE ---
Pt requesting home does of 0.5mg Mirapex and 5mg oxycodone. Dr. Ann aware, awaiting further orders.
[2024-12-28] MEDS: Furosemide 40 MG/4 ML VIAL IVPUSH (12:16)
[2024-12-28 12:49] LABS: Troponin-I High Sensitivity 5.4 ng/L (<3.5-17.0)
== END 2024-12-28 13:29 | disposition home or self-care (01) ==
PROVIDERS: Emergency Provider Emergency Medicine; PCP Internal Medicine
DX: R05.9 Cough, unspecified (principal); R07.9 Chest pain, unspecified; R94.31 Abnormal electrocardiogram [ECG] [EKG]; J44.9 Chronic obstructive pulmonary disease, unspecified; M35.00 Sjogren syndrome, unspecified; E11.9 Type 2 diabetes mellitus without complications; I10 Essential (primary) hypertension; G47.33 Obstructive sleep apnea (adult) (pediatric); J96.20 Acute and chronic respiratory failure, unspecified whether with hypoxia or hypercapnia; Z99.81 Dependence on supplemental oxygen; Z03.818 Encounter for observation for suspected exposure to other biological agents ruled out
CPT/HCPCS: 36415; 71045; 71250; 80048; 80076; 82803; 83690; 83880; 84484; 85025; 87637; 93005; 94640; 96374; 96375; 99285; J1938; J2270

== ENCOUNTER → 2024-12-28 06:49 | Outpatient (BNV) | payer OTHER, SELFPAY | PROVIDERS: Emergency Provider Emergency Medicine; PCP Internal Medicine; Visit Provider Internal Medicine Cardiovascular Disease | DX: R94.31 Abnormal electrocardiogram [ECG] [EKG] (principal); R07.9 Chest pain, unspecified | CPT/HCPCS: 93010 ==

== ENCOUNTER → 2024-12-28 06:55 | Outpatient (BNV) | payer OTHER, SELFPAY | PROVIDERS: Emergency Provider Emergency Medicine; PCP Internal Medicine; Visit Provider Radiology Diagnostic Ultrasound | DX: R59.0 Localized enlarged lymph nodes (principal); J98.4 Other disorders of lung; R16.0 Hepatomegaly, not elsewhere classified; J90 Pleural effusion, not elsewhere classified; R91.8 Other nonspecific abnormal finding of lung field | CPT/HCPCS: 71045; 71250 ==

== ENCOUNTER 2025-01-22 05:01 | Inpatient (IN) | payer OTHER, SELFPAY ==
[2025-01-22] VITALS (10 sets, daily range): BP systolic 102–140; BP diastolic 46–80; PULSE 72–88; RESP 15–25; TEMP 36.4–36.9; O2SAT 91–100; BMI 32.6
--- NOTE | 2025-01-22 | ECG_ITS ---
Test Reason : CP Blood Pressure : */* mmHG Vent. Rate : 87 BPM Atrial Rate : 87 BPM P-R Int : 146 ms QRS Dur : 86 ms QT Int : 354 ms P-R-T Axes : 58 114 36 degrees QTcB Int : 425 ms Normal sinus rhythm Possible Left atrial enlargement Left posterior fascicular block Abnormal ECG No previous ECGs available Referred By: Tracey Epperson Electronically Signed By: RA ROBERSON MD
--- NOTE | ~2025-01-22 | XR_ITS ---
CLINICAL HISTORY: cough, sob, hx copd CHF 1 view chest x-ray Comparison: CT/REG/SR - CT CHEST WITHOUT IV CONTRAST - 12/28/24 08:47 EST CR/SR - XR CHEST 1V - 12/28/24 07:56 EST Findings: Apical subpleural fibrotic changes, right greater than left. Infrahilar linear opacities favoring atelectasis. No consolidation, large effusion, or pneumothorax. Heart size is normal. No acute fracture. Right shoulder arthroplasty. IMPRESSION: 1. No acute cardiopulmonary findings. This document has been electronically signed by: Mj Root MD on 01/22/2025 06:27:53
--- NOTE | ~2025-01-22 | US_ITS ---
CLINICAL HISTORY: pain, swelling Venous duplex ultrasound left lower extremity Comparison: 02/13/2024 Findings: The visualized deep veins are fully compressible with normal Doppler color flow and spectral tracings. No popliteal cyst. IMPRESSION: 1. Negative for left lower extremity deep vein thrombosis. This document has been electronically signed by: Chuck Colon MD on 01/22/2025 08:20:07
--- NOTE | ~2025-01-22 | XR_ITS ---
CLINICAL HISTORY: pain tp joint 3 views left foot Comparison: None Findings: No fractures, subluxations or dislocations. No periostitis or bony destruction. Joint space narrowing of the interphalangeal joints and tarsometatarsal joints. No marginal erosions or overhanging osteophytes. Calcaneus and subtalar joint intact. Large posterior and plantar calcaneal enthesophytes. Spurring along the dorsum of the midfoot. Soft tissue swelling midfoot osteopenia. Normal pre-Achilles fat pad. No radiopaque foreign body. Impression: 1. Soft tissue swelling dorsum of the midfoot. Osteopenia. Non erosive osteoarthritic changes. Bunion 1st metatarsal head. This document has been electronically signed by: Clayton Carrillo MD on 01/22/2025 10:58:43
--- NOTE | 2025-01-22 05:03 | ECG_ITS ---
Test Reason : cp Blood Pressure : */* mmHG Vent. Rate : 76 BPM Atrial Rate : 76 BPM P-R Int : 146 ms QRS Dur : 90 ms QT Int : 378 ms P-R-T Axes : 58 116 43 degrees QTcB Int : 425 ms Normal sinus rhythm Left posterior fascicular block Possible Anterior infarct (cited on or before 28-Dec-2024) Abnormal ECG When compared with ECG of 28-Dec-2024 07:00, No significant change was found Referred By: Tracey Epperson Electronically Signed By: CHULA DANIELLE
--- NOTE | 2025-01-22 05:11 | ED.GENADULT ---
HPI - General Adult General Chief complaint: Dyspnea Stated complaint: SOB, COPD, CP Time Seen by Provider: 01/22/25 05:03 Source: patient and EMS Mode of arrival: EMS Limitations: no limitations History of Present Illness ED Provider: Dr. Megan Rodriguez HPI narrative: Patient comes to the emergency room complaining of cough, difficulty breathing. Patient states that she has history of CHF and COPD, uses 2 L at baseline with exertion. Patient states that usually she is able to stay at rest with no oxygen but over last 2 days, she has been very short of breath requiring oxygen 24 hours a day. Patient denies any fever chills. Patient complaining that over last 12 hours, patient noted that her left lower extremity is significantly swollen and tenderness to palpation. Patient denies any palpitations. Patient states that she has chronic pain all over especially in the chest and upper back. Patient states that she took an oxycodone earlier today. EMS gave to the patient a dose of DuoNeb and 125 mg of Solu-Medrol in route to the hospital Related Data Home Medications ?Medication ?Instructions ?Recorded ?Confirmed aspirin 325 mg tablet 325 mg PO BID@29,122909/27/20 01/22/25 hydroxychloroquine 200 mg tablet 200 mg PO DAILY@2907/27/24 01/22/25 losartan 25 mg tablet 25 mg PO DAILY@2907/27/24 01/22/25 magnesium oxide 400 mg (241.3 mg 400 mg PO DAILY@2907/27/24 01/22/25 magnesium) tablet metformin 1,000 mg tablet 1,000 mg PO BID@29,122907/27/24 01/22/25 pramipexole 0.25 mg tablet 1 mg PO DAILY@122907/27/24 01/22/25 montelukast 10 mg tablet 10 mg PO BEDTIME@2909/13/24 01/22/25 tiotropium 2.5 mcg-olodaterol 2.5 2 puff inhalation DAILY@122909/13/24 01/22/25 mcg/actuation mist for inhalation (Stiolto Respimat) furosemide 40 mg tablet (Lasix) 40 mg PO DAILY@1230 09/28/24 01/22/25 lidocaine 4 % topical patch 3 patch transdermal DAILY PRN Pain 11/04/24 12/06/24 (Lidocaine Pain Relief) nicotine (polacrilex) 4 mg buccal 4 mg buccal Q4H PRN nicotine 11/04/24 12/06/24 lozenge cravings nystatin 100,000 unit/mL oral 5 ml PO DAILY 11/04/24 01/22/25 suspension One touch ultra test strips 11/15/24 baclofen 10 mg tablet 10 mg PO BID PRN Pain 12/06/24 01/22/25 insulin lispro 100 unit/mL 30 unit subcut TIDAC 12/21/24 01/22/25 subcutaneous pen insulin glargine-yfgn 100 unit/mL 45 unit subcut DAILY 01/22/25 01/22/25 subcutaneous solution Previous Rx's ?Medication ?Instructions ?Recorded blood-glucose meter #1 ea 08/25/23 FreeStyle Mag 3 Plus Sensor #6 ea 12/16/23 (blood-glucose sensor) FreeStyle Mag 3 [place] #1 ea 12/16/23 (blood-glucose,load out supervisor,cont) Oxygen Home Use #1 ea 04/16/24 Dexcom G7 Burrer Marker Axle #1 ea 08/09/24 (blood-glucose,load out supervisor,cont) Dexcom G7 Sensor (blood-glucose #6 ea 08/09/24 sensor) amlodipine 10 mg tablet 10 mg PO DAILY@0030 #90 tabs 08/09/24 iqrfdmi-whecpcwsfc-CTF-caffeine 30 1 cap PO QID PRN headache 28 days 11/17/24 mg-50 mg-325 mg-40 mg capsule #28 caps Onetouch Delica Safety Lancet 30 #300 ea 11/30/24 gauge (lancets) OneTouch Ultra Test (blood sugar #300 ea 12/13/24 diagnostic) electric scooter #1 ea 12/21/24 prednisone 5 mg tablet 5 mg PO DAILY #90 tabs 12/21/24 pantoprazole 40 mg tablet,delayed 40 mg PO DAILY@0630 #90 tabs 12/28/24 release ondansetron 4 mg disintegrating 4 mg PO Q8H PRN nausea and 12/31/24 tablet vomiting #30 tabs Portable oxygen concentrator #1 ea 01/04/25 nitrofurantoin 100 mg PO Q12H 7 days #14 caps 01/08/25 monohydrate/macrocrystals 100 mg capsule (Macrobid) morphine 30 mg tablet,extended 30 mg PO BID@0030,1230 28 days #56 01/11/25 release tabs oxycodone 10 mg tablet 10 mg PO QID PRN pain 28 days #112 01/11/25 tabs codeine 10 mg-guaifenesin 100 mg/5 5 ml PO Q6H PRN cough #118 mL 01/12/25 mL oral liquid (Guaifenesin AC) diazepam 2 mg tablet (Valium) 2 mg PO BEDTIME PRN anxiety/muscle 01/17/25 spasm #30 tabs albuterol sulfate 90 mcg/actuation 2 puff inhalation Q6H PRN wheezing 01/19/25 aerosol inhaler #8.5 grams Allergies Allergy/AdvReac Type Severity Reaction Status Date / Time acetaminophen (From TYLENOL) Allergy Severe Anaphylaxis Verified 01/22/25 05:09 atorvastatin (From LIPITOR) Allergy Severe Difficulty Verified 01/22/25 05:09 Breathing azithromycin (AZITHROMYCIN) Allergy Severe Difficulty Verified 01/22/25 05:09 Breathing mite-Dermatophagoides Allergy Severe Difficulty Verified 01/22/25 05:09 farinae, vicente (dust mite - Breathing [facility]) sumatriptan (From IMITREX) Allergy Severe Difficulty Verified 01/22/25 05:09 Breathing house dust Allergy Mild Unknown Verified 01/22/25 05:09 adhesive tape (ADHESIVE TAPE) Allergy Unknown Rash Verified 01/22/25 05:09 gentamicin (GENTAMICIN) Allergy Unknown Rash Verified 01/22/25 05:09 adalimumab (From Humira) Allergy Rash Verified 01/22/25 05:09 erythromycin base Allergy Unknown Verified 01/22/25 05:09 haloperidol (From HALDOL) AdvReac Unknown GI Issues Verified 01/22/25 05:09 ketorolac (From TORADOL) AdvReac Unknown Muscle Verified 01/22/25 05:09 cramps prasterone (DHEA) (From DHEA) AdvReac Unknown Cardiac Verified 01/22/25 05:09 issues varenicline (From CHANTIX) AdvReac Unknown Seizure Verified 01/22/25 05:09 ipratropium (From Atrovent) AdvReac Migraine Verified 01/22/25 05:09 Review of Systems Review of Systems: Constitutional : No Weight loss, No Fever, No Chills, No Night Sweats, No Fatigue, No Malaise ENT/Mouth : No Hearing loss, No Ear Pain, No Nasal Congestion, No Sinus Pain, No Hoarseness, No sore throat, No Rhinorrhea, No Swallowing Difficulty Eyes: No Eye Pain, No Swelling, No Redness, No Foreign Body, No Discharge, No Vision Changes Cardiovascular : Complaining of chronic bilateral chest pain with back pain, denies palpitations Respiratory : Complaining of cough, increasing oxygen demand Gastrointestinal : No Nausea, No Vomiting, No Diarrhea, No Constipation, No abdominal Pain, No Hematochezia, No Melena Genitourinary : no irregular bleeding, No Dysuria, No Urinary Frequency, No Hematuria, No Urinary Incontinence, No Urgency, No Flank Pain, No Urinary Flow Changes, No Hesitancy Musculoskeletal : Complaining of new onset lower extremity edema on the left side, No joint pain, No Myalgias, No Joint Swelling Skin : No Skin Lesions, No rash Neuro : No Weakness, No Numbness, No Paresthesias, No Loss of Consciousness, No Dizziness, No Headache Psych : No Anxiety/Panic, No Depression, No SI/HI/AH/VH, No Social Issues, Heme/Lymph: No Bruising, No Bleeding,No Lymphadenopathy Endocrine : No Polyuria, No Polydipsia, No Temperature Intolerance PMFSH Past Medical History Medical History Sezary disease Supplemental oxygen dependent Leg edema, left Chest pain Sjogrens syndrome Insulin 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 2 diabetes COPD (chronic obstructive pulmonary disease) Congestive heart failure Atelectasis Lymphoproliferative disorder TENISHA (obstructive sleep apnea) Emphysema lung Pulmonary hypertension Tobacco dependence due to cigarettes Diabetes mellitus with hyperglycemia Chronic pain syndrome CHCF (current) use of opiate analgesic Osteoporosis Rheumatoid arthritis Osteoarthritis Chronic, continuous use of opioids GERD (gastroesophageal reflux disease) Hx of difficult intubation Smoker COPD (chronic obstructive pulmonary disease) Asthma Polycythemia Boils Eczema Bursitis Disc degeneration Sleep apnea Diabetes Fibromyalgia Surgical History History of esophagogastroduodenoscopy (EGD) Hx of tonsillectomy History of surgical removal of pilonidal cyst Hx of plastic surgery Hx of hysterectomy Hx of cholecystectomy Hx of appendectomy History of colonoscopy History of bladder suspension procedure History of removal of cyst Family History Family History Mother Polycythemia TIA (transient ischemic attack) Father Heart attack Other No family history of cancer Social History Social History Household Members: Spouse Housing: House Are you a primary after school caregiver to a significant other at home: No Do you presently have visiting nurse or other home services: Yes ([facility]) Alcohol intake: never Comment: pt refusing alarm. Patient Tobacco Use Status: Current everyday Tobacco user Tobacco use type: Cigarette Cigarette Packs Per Day: 1 Cigarettes Per Day: 10 Years Smoked: 51 Smoked in Last 30 Days: Yes e-Cigarette/Vaping Use: Never Used Second Hand Smoke Exposure: No Use of substances other than those prescribed or required for medical reasons: No Advance Directives: Yes Advance Directives on File: Yes Advance Directives Date on File: 12/24/19 Do you have a plan to hurt others: No Plan Patient : No service: No Current occupational status: retired 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 Cognitive needs: No Hearing needs: No Vision needs: No Physical Exam ED Exam Exam: Appearance: Alert. Oriented X3. No acute distress. Eyes: Pupils equal, round and reactive to light. ENT: Pharynx normal. Neck: Normal inspection. Neck supple. No lymph nodes noted. No crepitus CVS: Normal heart rate and rhythm. Pulses normal. Normal S1 and S2 Respiratory: No respiratory distress. Patient's oxygen saturation 92% on 2 L, no wheezing at this time, patient does have rales, no crackles Abdomen: Soft and nontender. No rigidity. No distention. Skin: Skin warm and dry. Normal skin color. Normal skin turgor. Extremities: Patient's right lower extremity edema looks within normal limits, patient's left leg looks significantly swollen, +3 pitting edema, pain to palpation in the calf Neuro: Oriented X 3. No motor deficit. No sensory deficit. Moving all extremities. No slurred speech. CN 2 through 12 grossly intact Psych: calm, cooperative, normal affect Vital Signs: Vital Signs - 24 hr 01/22/25 05:06 01/22/25 06:08 01/22/25 07:21 Temperature 98.4 F 98.5 F Pulse Rate 88 76 77 Respiratory Rate 25 H 18 15 Blood Pressure 102/46 L 117/53 L 109/54 L Pulse Oximetry 92 94 95 Oxygen Delivery Method Nasal Cannula Nasal Cannula Nasal Cannula Oxygen Flow Rate 2 2 BMI result Body Mass Index 32.6 Course Course Course Narrative: All of patient's labs and imaging pending. Patient is currently on 2 L of oxygen. Patient already received DuoNeb and Solu-Medrol, patient states that she does feel a bit better. Pt blood pressure 117/53, heart rate 76, temperature 98.5 degrees, patient is on her usual 2 L nasal cannula. Sepsis is not suspected. Reevaluation(s) Reevaluation #1: Patient was signed out to me by Dr. Rodriguez as 07:00, the patient has a history of COPD she states smokes she has a 2 L oxygen requirement at this time, chest x-ray shows not acute disease She is doing better now anticipate admission spoke with Dr Alexis Time: 08:21 Medications Administered Discontinued Medications Generic Name Dose Route Start Last Admin Trade Name Freq PRN Reason Stop Dose Admin Ceftriaxone Sodium 1 gm/ 50 mls @ 100 mls/hr 01/22/25 05:58 01/22/25 06:39 Sodium Chloride IV 01/22/25 06:27 Infused ONCE ONE Infusion Magnesium Oxide 400 mg 01/22/25 06:42 01/22/25 07:00 Magnesium Oxide 400 Mg Tablet PO 01/22/25 06:43 400 mg ONCE ONE Administration Medical Decision Making Medical Decision Making [facility] Narrative: My interpretation of the electrocardiogram: Normal sinus rhythm, heart rate 87, no ST segment depression or elevation, no T-wave inversion, QTC 425, of note, the EKG did not transferred to the system. My interpretation of labs: No significant acute abnormality in patient's chemistry, patient has chronic leukocytosis, hemoglobin 16.5, hematocrit 51.8, platelets 241, normal coagulation times, blood gases at baseline, normal pH, chronically elevated pCO2 at baseline with an elevated bicarb, seems compensated. Lactic acid 3.3, likely due to nebulization treatments. Magnesium 1.5, being repleted p.o., normal LFTs, troponin within normal limits.. Serology negative for influenza RSV and COVID Chest x-ray does not show any acute abnormality. Patient was admitted 2 months ago, patient came to the hospital with a similar presentation Patient had an echocardiogram done a bit over 2 months ago on October of 2024: Normal left ventricular size and systolic function. There is moderatelyincreased left ventricular wall thickness. The visually estimated ejectionfraction is between 65-70%. There is no evidence of regional wall motionabnormalities. Abnormal diastolic function is noted Seems that patient had a chronic lung disease exacerbation. However, ultrasound is still pending. Patient has a significantly swollen lower extremity on the left Differential Diagnosis Differential Diagnoses: The differential diagnosis associated with the presentation includes (Chronic lung disease exacerbation, pneumonia, DVT, PE) Admission/Observation Consideration of admission/observation: Escalation of care including admission/observation considered Lab Data MDM Lab Attestation statement: I reviewed the patient's lab results. 01/22/25 05:21 01/22/25 05:21 Labs: Lab Results 01/22/25 01/22/25 Range/Units 05:21 05:28 WBC 11.8 H (4.8-10.8) X10*3/uL RBC 6.03 H (4.20-5.50) X10*6/uL Hgb 16.5 H (12.0-16.0) g/dl Hct 51.8 H (37.0-47.0) % MCV 85.9 (80.0-98.0) fL MCH 27.4 (27.0-33.0) pg MCHC 31.9 (31.0-35.0) g/dl RDW 17.0 H (11.0-16.0) % Plt Count 241 (160-400) X10*3/uL MPV 9.2 L (9.4-12.3) fL Immature Gran % (Auto) 0.4 (0.0-0.4) % Neut % (Auto) 74.9 H (45-73) % Lymph % (Auto) 17.9 L (20-40) % [place] % (Auto) 4.9 (2-11) % Eos % (Auto) 1.3 (0-4) % Baso % (Auto) 0.6 (0-2) % Lymph # (Auto) 2.1 (1.2-4.9) X10*3/uL [place] # (Auto) 0.6 (0.1-1.2) X10*3/uL Eos # (Auto) 0.2 (0.0-0.4) X10*3/uL Baso # (Auto) 0.1 (0.0-0.2) X10*3/uL Abs Immat Gran (auto) 0.05 H (0.00-0.03) X10*3/uL Absolute Neuts (auto) 8.8 H (2.0-8.3) x10*3/uL Absolute Nucleated RBC 0.000 (0.0-0.012) X10*3/uL Nucleated RBC % (auto) 0.0 (0.0-0.2) /100WBC PT 12.6 (11.2-13.5) SEC INR 1.0 (0.9-1.1) VBG pH 7.40 (7.32-7.43) VBG pCO2 56 mmHg VBG pO2 42 mmHg VBG HCO3 35 H (22-26) mmol/L VBG O2 Saturation 75.0 % VBG Base Excess 8.5 mmol/L Sodium 139 (135-145) mmol/L Potassium 4.3 (3.3-5.1) mmol/L Chloride 94 L (96-108) mmol/L Carbon Dioxide 30 H (22-29) mmol/L Anion Gap 19 (12-20) BUN 12 (9-16) mg/dL Creatinine 0.64 (0.5-1.4) mg/dL Estim Creat Clear Calc 95.5 Estimated GFR > 60 Random Glucose 297 H (60-115) mg/dL Lactic Acid 3.3 H* (0.5-2.0) mmol/L Calcium 9.4 (8.4-10.2) mg/dL Magnesium 1.5 L (1.6-2.6) mg/dL Total Bilirubin 0.3 (0.0-1.0) mg/dL Direct Bilirubin 0.1 (0.0-0.5) mg/dL AST 23 (5-31) U/L ALT 15 (0-31) U/L Alkaline Phosphatase 88 (39-117) U/L Troponin I High Sens 4.8 (<3.5-17.0) ng/L NT-Pro-B Natriuret Pep 179.0 (<300) pg/mL Total Protein 7.5 (6.5-8.0) g/dL Albumin 4.3 (3.5-5.0) g/dL Influenza Type A (PCR) NEGATIVE (Negative) Influenza Type B (PCR) NEGATIVE (Negative) RSV RNA Qual (PCR) NEGATIVE (Negative) SARS-CoV-2 RNA (RT-PCR) NEGATIVE (Negative) Independent Interpretation I performed an independent interpretation of an: Plain X-Ray Radiology Impression Discussion of test interpretation with radiology: I have reviewed the radiologist's reading. Radiologist Impression: Apical subpleural fibrotic changes, right greater than left. Infrahilar linear opacities favoring atelectasis. No consolidation, large effusion, or pneumothorax. Heart size is normal. No acute fracture. Right shoulder arthroplasty. IMPRESSION: 1. No acute cardiopulmonary findings. Critical Care Time Critical Care Time Critical Care Time: Yes Total Critical Care Time: 50 Attestation: I have personally provided critical care time. Time includes review of lab data, radiology results, discussion with consultants, and monitoring for potential decompensation. Intervention performed as documented. Discharge Plan Discharge Clinical Impression: Edema of left lower extremity, Chronic lung disease Patient Disposition: Admitted As Inpatient Print Language: Hungarian
--- OUTSIDE RECORDS SUMMARY | 2025-01-22 05:26 | XMS_ITS | Encounter Summary ---
Author Organization [facility] Address [address] [place] [address] Care Team Providers Care Fire Control Officer Name Role Phone Dottie Douglass MD Primary Care Provider [phone] Encounter Details Date Type Department Care Team (Late st Contact Info) Description 01/02/2018 Scanned Document [facility] Plastic & Reconstructive Surgery [place] [address] [facility] [address] [place] [address] Nito Epperson MD [address] [facility] [address] [place] [address] Social History Tobacco Use Types Packs/Day Years [...] on filedocumented in this encounter Care Teams Fire Control Officer Relationship Specialty Start Date End Date Dottie Douglass MD PCP - General Internal Medicine 08/04/17 documented as of this encounter
--- OUTSIDE RECORDS SUMMARY | 2025-01-22 05:26 | XMS_ITS | Encounter Summary ---
Author Organization [facility] Address [address] [place] [address] Care Team Providers Care Oilfield Plant And Field Operator Name Role Phone Dottie Douglass MD Primary Care Provider [phone] Encounter Details Date Type Department Care Team (Late st Contact Info) Description 09/25/2017 Scanned Document [facility] Plastic & Reconstructive Surgery [address] [place] [address] Nito Epperson MD [address] [facility] [address] [place] [address] Social History Tobacco Use Types Packs/Day Years [...] on filedocumented in this encounter Care Teams Oilfield Plant And Field Operator Relationship Specialty Start Date End Date Dottie Douglass MD PCP - General Internal Medicine 08/04/17 documented as of this encounter
--- OUTSIDE RECORDS SUMMARY | 2025-01-22 05:26 | XMS_ITS | Clinical Summary ---
Author Organization [facility] Prior to 07/17/[address] [place] [id number] Care Team Providers Care Protective Officer Name Role Phone Dottie Douglass MD Primary Care Provider [phone] Allergies Active Allergy Reactions Criticality Noted Date [...] age to complete this topic Care Teams Protective Officer Relationship Specialty Start Date End Date Dottie Douglass MD PCP - General Internal Medicine 07/08/16
--- OUTSIDE RECORDS SUMMARY | 2025-01-22 05:26 | XMS_ITS | Clinical Summary ---
Author Organization [facility] Address [address] [place] [id number] Care Team Providers Care Smoking Pipes Cleaner Name Role Phone Dottie Douglass MD Primary Care Provider [phone] Allergies Active Allergy Reactions Criticality Noted Date [...] (four) hours as needed. 5 Active butalbital-aspir [id number] ine (FioriNAL WITH CODEINE) [id number] MG capsule Take 1 capsule by mouth [...] Most Recently Relevant to Health Maintenance Insurance [facility] [place] [employer] Advance Directives * Full Code (Latest Code Status on File) Date Activated Date Inactivated Comments 03/24/2019 5:36 AM Question Answer Comments Decision Thoroughly Discussed with: Patient * Full Code Date Activated Date Inactivated Comments 03/23/2019 9:33 AM 03/24/2019 5:36 AM Care Teams Smoking Pipes Cleaner Relationship Specialty Start Date End Date Dottie Douglass MD PCP - General Internal Medicine 08/04/17
--- OUTSIDE RECORDS SUMMARY | 2025-01-22 05:26 | XMS_ITS | Clinical Summary ---
Author Organization [facility] Address [address] [place] [address] Care Team Providers Care Linux Unix Engineer Name Role Phone Dottie Douglass MD Primary Care Provider [phone] Allergies Active Allergy Reactions Criticality Noted Date [...] T PO BID 0 06/17/19 19 Active KurtosysTOUCH ULTRA CONTROL solution See admin instructions. 0 [...] of 2) 05/30/2011 COVID-19 Vaccine ( - 2024-2 6 season) 2024 Influenza Vaccine (#1) 2024 HPV [...] complete this topic Insurance [employer] Care Teams Linux Unix Engineer Relationship Specialty Start Date End Date Dottie Douglass MD [address] [address] PCP - General Internal Medicine 10/13/20
[2025-01-22 05:27] LABS: Venous Blood Gas Refer to POC result
[2025-01-22 05:28] LABS: Hematocrit 51.8 % (37.0-47.0); Hemoglobin 16.5 g/dl (12.0-16.0); Imm Gran Abs Auto 0.05 X10*3/uL (0.00-0.03); Imm Gran Pct Auto 0.4 % (0.0-0.4); Lymphocytes Absolute Auto 2.1 X10*3/uL (1.2-4.9); MANUAL DIFF FLAG NO; Mean Corpuscular HGB Conc 31.9 g/dl (31.0-35.0); Mean Corpuscular Hemoglobin 27.4 pg (27.0-33.0); Mean Corpuscular Volume 85.9 fL (80.0-98.0); NRBC Abs Auto 0.000 X10*3/uL (0.0-0.012); NRBC Pct Auto 0.0 /100WBC (0.0-0.2); Platelet Count 241 X10*3/uL (160-400); Red Blood Count 6.03 X10*6/uL (4.20-5.50); White Blood Count 11.8 X10*3/uL (4.8-10.8)
[2025-01-22 05:32] LABS: VBG HCO3 35 mmol/L (22-26); VBG O2 % Saturation 75.0 %
[2025-01-22 05:41] LABS: INTERNATIONAL NORM RATIO 1.0 (0.9-1.1); Prothrombin Time 12.6 SEC (11.2-13.5)
[2025-01-22 05:47] LABS: Alanine Aminotransferase 15 U/L (0-31); Albumin Level 4.3 g/dL (3.5-5.0); Alkaline Phosphatase 88 U/L (39-117); Anion Gap 19 (12-20); Aspartate Amino Transferase 23 U/L (5-31); Blood Urea Nitrogen 12 mg/dL (9-16); Calcium 9.4 mg/dL (8.4-10.2); Carbon Dioxide 30 mmol/L (22-29); Chloride 94 mmol/L (96-108); Creatinine Clr Calc Pharmacy 95.5; Estimated Glomerular Filt Rate > 60; Magnesium 1.5 mg/dL (1.6-2.6); Potassium 4.3 mmol/L (3.3-5.1); Sodium 139 mmol/L (135-145); Total Protein 7.5 g/dL (6.5-8.0)
[2025-01-22 05:52] LABS: Troponin-I High Sensitivity 4.8 ng/L (<3.5-17.0)
[2025-01-22 06:19] LABS: Resp Syncy Virus RNA Qual PCR NEGATIVE (Negative); SARS COV2 PCR INHOUSE NEGATIVE (Negative)
[2025-01-22 06:45] LABS: NT Pro B Type Natriuretic Pept 179.0 pg/mL (<300)
[2025-01-22 07:28] LABS: Reflex Lactate? Lactic Acid Added
--- NOTE | 2025-01-22 08:30 | PM.IMHP ---
History of Present Illness Date of Service: 01/22/25 Chief Complaint: Shortness of breath 64-year-old woman with a history of COPD, current smoker on 2 L of oxygen at baseline. Presented to the ER with complaints of worsening shortness of breath and cough for the last 3 days. . Patient usually uses oxygen as needed and at rest does not require any but more recently she has required oxygen 24 hours throughout the day. She smokes at least a pack a day of cigarettes. Patient denies chest pain, nausea, vomiting, diarrhea, recent illness, sick contacts. Lactic acid elevated at 3.3 likely secondary to albuterol treatments, magnesium 1.5., flu, RSV and COVID negative In the ER she was given IV ceftriaxone and oral magnesium, chest x-ray negative for consolidation or effusion. Patient will be admitted for management of acute COPD exacerbation. Review of Systems Review of Systems: Denies any recent fever chills or decrease in appetite respiratory See HPI cardiovascular See HPI gastrointestinal denies any dysphagia abdominal pain nausea vomiting or diarrhea genitourinary denies any dysuria frequency or hematuria musculoskeletal denies any joint pain or swelling neuropsych denies any weakness or seizures all other systems reviewed are negative [facility] Medical History Sezary disease Supplemental oxygen dependent Leg edema, left Chest pain Sjogrens syndrome Insulin 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 2 diabetes COPD (chronic obstructive pulmonary disease) Congestive heart failure Atelectasis Lymphoproliferative disorder TENISHA (obstructive sleep apnea) Emphysema lung Pulmonary hypertension Tobacco dependence due to cigarettes Diabetes mellitus with hyperglycemia Chronic pain syndrome 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 Osteoporosis Rheumatoid arthritis Osteoarthritis Chronic, continuous use of opioids GERD (gastroesophageal reflux disease) Hx of difficult intubation Smoker COPD (chronic obstructive pulmonary disease) Asthma Polycythemia Boils Eczema Bursitis Disc degeneration Sleep apnea Diabetes Fibromyalgia Family History Mother Polycythemia TIA (transient ischemic attack) Father Heart attack Other No family history of cancer Surgical History History of esophagogastroduodenoscopy (EGD) Hx of tonsillectomy History of surgical removal of pilonidal cyst Hx of plastic surgery Hx of hysterectomy Hx of cholecystectomy Hx of appendectomy History of colonoscopy History of bladder suspension procedure History of removal of cyst Social History Household Members: Spouse Housing: House Are you a primary health care legal assistant to a significant other at home: No Do you presently have visiting nurse or other home services: Yes ([facility]) Alcohol intake: never Comment: pt refusing alarm. Patient Tobacco Use Status: Current everyday Tobacco user Tobacco use type: Cigarette Cigarette Packs Per Day: 1 Cigarettes Per Day: 10 Years Smoked: 51 Smoked in Last 30 Days: Yes e-Cigarette/Vaping Use: Never Used Second Hand Smoke Exposure: No Use of substances other than those prescribed or required for medical reasons: No Advance Directives: Yes Advance Directives on File: Yes Advance Directives Date on File: 12/24/19 Do you have a plan to hurt others: No Plan Patient : No service: No Current occupational status: retired 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 Cognitive needs: No Hearing needs: No Vision needs: No Meds Allergies Allergy/AdvReac Type Severity Reaction Status Date / Time acetaminophen (From TYLENOL) Allergy Severe Anaphylaxis Verified 01/22/25 05:09 atorvastatin (From LIPITOR) Allergy Severe Difficulty Verified 01/22/25 05:09 Breathing azithromycin (AZITHROMYCIN) Allergy Severe Difficulty Verified 01/22/25 05:09 Breathing mite-Dermatophagoides Allergy Severe Difficulty Verified 01/22/25 05:09 farinae, vicente (dust mite - Breathing [place]) sumatriptan (From IMITREX) Allergy Severe Difficulty Verified 01/22/25 05:09 Breathing house dust Allergy Mild Unknown Verified 01/22/25 05:09 adhesive tape (ADHESIVE TAPE) Allergy Unknown Rash Verified 01/22/25 05:09 gentamicin (GENTAMICIN) Allergy Unknown Rash Verified 01/22/25 05:09 adalimumab (From Humira) Allergy Rash Verified 01/22/25 05:09 erythromycin base Allergy Unknown Verified 01/22/25 05:09 haloperidol (From HALDOL) AdvReac Unknown GI Issues Verified 01/22/25 05:09 ketorolac (From TORADOL) AdvReac Unknown Muscle Verified 01/22/25 05:09 cramps prasterone (DHEA) (From DHEA) AdvReac Unknown Cardiac Verified 01/22/25 05:09 issues varenicline (From CHANTIX) AdvReac Unknown Seizure Verified 01/22/25 05:09 ipratropium (From Atrovent) AdvReac Migraine Verified 01/22/25 05:09 Home Medications ?Medication ?Instructions ?Recorded ?Confirmed ?Last Taken ?Type aspirin 325 mg tablet 325 mg PO BID@0030,1230 09/27/20 01/22/25 12/05/24 History hydroxychloroquine 200 mg tablet 200 mg PO DAILY@0030 07/27/24 01/22/25 12/05/24 History losartan 25 mg tablet 25 mg PO DAILY@0030 07/27/24 01/22/25 12/05/24 History magnesium oxide 400 mg (241.3 mg 400 mg PO DAILY@0030 07/27/24 01/22/25 12/05/24 History magnesium) tablet metformin 1,000 mg tablet 1,000 mg PO BID@0030,1230 07/27/24 01/22/25 12/05/24 History pramipexole 0.25 mg tablet 1 mg PO DAILY@1230 07/27/24 01/22/25 12/05/24 History montelukast 10 mg tablet 10 mg PO BEDTIME@0030 09/13/24 01/22/25 12/05/24 History tiotropium 2.5 mcg-olodaterol 2.5 2 puff inhalation DAILY@1230 09/13/24 01/22/25 12/05/24 History mcg/actuation mist for inhalation (Stiolto Respimat) furosemide 40 mg tablet (Lasix) 40 mg PO DAILY@1230 09/28/24 01/22/25 12/05/24 History lidocaine 4 % topical patch 3 patch transdermal DAILY PRN Pain 11/04/24 12/06/24 12/05/24 History (Lidocaine Pain Relief) nicotine (polacrilex) 4 mg buccal 4 mg buccal Q4H PRN nicotine 11/04/24 12/06/24 12/05/24 History lozenge cravings nystatin 100,000 unit/mL oral 5 ml PO DAILY 11/04/24 01/22/25 12/05/24 History suspension One touch ultra test strips 11/15/24 Unknown History baclofen 10 mg tablet 10 mg PO BID PRN Pain 12/06/24 01/22/25 12/05/24 History insulin lispro 100 unit/mL 30 unit subcut TIDAC 12/21/24 01/22/25 Unknown History subcutaneous pen insulin glargine-yfgn 100 unit/mL 45 unit subcut DAILY 01/22/25 01/22/25 Unknown History subcutaneous solution pregabalin 75 mg capsule 75 mg PO BID 01/22/25 Unknown History Physical Exam Vital Signs and Narrative: Vital Signs: Last Vital Signs Temp 98.5 F 01/22/25 06:08 Pulse 77 01/22/25 07:21 Resp 15 01/22/25 07:21 BP 109/54 L 01/22/25 07:21 Pulse Ox 95 01/22/25 07:21 O2 Del Method Nasal Cannula 01/22/25 07:21 O2 Flow Rate 2 01/22/25 07:21 Oxygen Flow Rate 2 01/22/25 05:06 BMI result Body Mass Index 32.6 Appearing in no acute distress head is normocephalic atraumatic eyes pupils are PERRLA sclera is anicteric mouth throat mucous membranes are intact and moist neck is supple no lymphadenopathy, no JVD noted lung sounds rhonchi heart regular rate rhythm, clear S1, S2 positive bowel sounds, abdomen is soft, nontender neuro patient is alert x3, no focal deficits Left LE edema Results Labs 01/22/25 05:21 01/22/25 05:21 Labs: Laboratory Results - last 24 hr 01/22/25 01/22/25 05:21 05:28 MCV 85.9 MCH 27.4 MCHC 31.9 RDW 17.0 H Plt Count 241 MPV 9.2 L Immature Gran % (Auto) 0.4 Neut % (Auto) 74.9 H Lymph % (Auto) 17.9 L [place] % (Auto) 4.9 Eos % (Auto) 1.3 Baso % (Auto) 0.6 Lymph # (Auto) 2.1 [place] # (Auto) 0.6 Eos # (Auto) 0.2 Baso # (Auto) 0.1 Abs Immat Gran (auto) 0.05 H Absolute Neuts (auto) 8.8 H Absolute Nucleated RBC 0.000 Nucleated RBC % (auto) 0.0 PT 12.6 INR 1.0 VBG pH 7.40 VBG pCO2 56 VBG pO2 42 VBG HCO3 35 H VBG O2 Saturation 75.0 VBG Base Excess 8.5 Anion Gap 19 Estim Creat Clear Calc 95.5 Estimated GFR > 60 Random Glucose 297 H Lactic Acid 3.3 H* Calcium 9.4 Magnesium 1.5 L Total Bilirubin 0.3 Direct Bilirubin 0.1 AST 23 ALT 15 Alkaline Phosphatase 88 Troponin I High Sens 4.8 NT-Pro-B Natriuret Pep 179.0 Total Protein 7.5 Albumin 4.3 Influenza Type A (PCR) NEGATIVE Influenza Type B (PCR) NEGATIVE RSV RNA Qual (PCR) NEGATIVE SARS-CoV-2 RNA (RT-PCR) NEGATIVE Assessment and Plan (1) Diabetes: Qualifiers: Diabetes mellitus type: type 2 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: unspecified mcc insulin use status Diabetes mellitus complication status: with hyperglycemia Qualified Code(s): E11.65 - Type 2 diabetes mellitus with hyperglycemia Status: Acute Plan 64 year old women admitted with acute on chronic hypoxic respiratory failure secondary to COPD exacerbation Chronic respiratory failure secondary to COPD exacerbation Chronically on 2 L of oxygen at home, adjust oxygen as needed while inpatient Patient requires IV Solu-Medrol and scheduled DuoNebs Chest x-ray no acute consolidation check RPP Left lower extremity swelling Venous Doppler ultrasound negative for DVT Elevate extremity Randall stockings check uric acid and foot xray Hypomagnesemia repleted in the ED oral magnesium Hypertension Stable blood pressure Continue home medications Mental health Continue home medications Diabetes mellitus type 2 Sliding scale, ADA diet lantus Chronic cough Continue antitussives Sjogren's Chronic Continue Plaquenil Smoker Discussed the importance of smoking cessation NRT patch 21 mg DVT prophylaxis with full-dose aspirin( Home med) Full code Quality Stroke Does the patient have a stroke diagnosis?: No VTE Prior VTE?: No VTE Risk Level:: Medical - moderate - high VTE Device Contraindication: Treatment Not Indicated VTE Drug Contraindication: N/A - Med Ordered
[2025-01-22] MEDS: oxyCODONE HCl Immed Release 5 MG TABLET PO (09:30)
[2025-01-22 09:57] LABS: ~Lactic Acid-LAB USE ONLY 1.6 mmol/L (0.5-2.0)
[2025-01-22 11:10] LABS: Uric Acid 4.9 mg/dL (2.4-5.7)
[2025-01-22] MEDS: Albuterol Sulfate (0.083%) 2.5 MG/3 ML VIAL.NEB INHALE ×2 (11:13→18:38)
--- NOTE | 2025-01-22 11:54 | PHA.MEDREC ---
Pharmacy Consult ? Medication Reconciliation Pharmacy has completed the medication reconciliation. Confirmed medication list with patient as well as list from home. Patient no longer taking Pregabalin. Patient gets lidocaine patches OTC. Patient still taking cyclobenzaprine 5 mg BID PRN.
[2025-01-22] MEDS: Nicotine 21 MG PATCH.TD24 TRANSDERMA (12:00)
[2025-01-22] MEDS: Nystatin Oral Susp 500,000 UNIT/5 ML ORAL.SUSP 500000 UNIT PO (12:00)
--- NOTE | 2025-01-22 12:16 | HO.NURTONUR ---
Pt is a 64yo F coming from home for COPD exacerbation. Worsening SOB x3days. Pt smokes pack a day of cigs. 2LNC at home PRN. Has had inc needs. 3LNC. 20gLAC. Ambulates independently. Uses bedside commode. Chronic pain, takes MS contin for same. Takes pills whole. went home, will return later today.
[2025-01-22] MEDS: Morphine Sulfate ER 30 MG TABLET.ER PO (12:25)
[2025-01-22] MEDS: 0.9 % Sodium Chloride Flush 3 ML SYRINGE IVFLUSH ×2 (15:56→23:36)
[2025-01-22] MEDS: guaiFEN/Codeine SF 200/20/10ML 10 ML LIQUID 5 ML PO ×2 (15:56→22:00)
[2025-01-22] MEDS: oxyCODONE HCl Immed Release 5 MG TABLET 10 MG PO ×2 (15:57→22:00)
[2025-01-22 16:19] LABS: Glucose, Whole Blood 369 mg/dL (60-115)
[2025-01-22 20:53] LABS: Glucose, Whole Blood 285 mg/dL (60-115)
[2025-01-22 21:26] LABS: Glucose, Whole Blood 372 mg/dL (60-115)
[2025-01-23] VITALS (12 sets, daily range): BP systolic 122–137; BP diastolic 58–82; PULSE 65–75; RESP 16–20; TEMP 36.2–36.6; O2SAT 90–97
[2025-01-23] MEDS: Morphine Sulfate ER 30 MG TABLET.ER PO ×2 (00:45→11:59)
[2025-01-23] MEDS: Insulin Glargine,Hum.rec.anlog 100 UNIT/ML 10 ML VIAL 40 UNIT SUBCUT (00:47)
[2025-01-23] MEDS: guaiFEN/Codeine SF 200/20/10ML 10 ML LIQUID 5 ML PO ×4 (03:37→23:00)
[2025-01-23] MEDS: oxyCODONE HCl Immed Release 5 MG TABLET 10 MG PO ×4 (04:10→23:00)
[2025-01-23 06:43] LABS: Hematocrit 47.8 % (37.0-47.0); Hemoglobin 14.9 g/dl (12.0-16.0); Mean Corpuscular HGB Conc 31.2 g/dl (31.0-35.0); Mean Corpuscular Hemoglobin 27.1 pg (27.0-33.0); Mean Corpuscular Volume 86.9 fL (80.0-98.0); NRBC Abs Auto 0.000 X10*3/uL (0.0-0.012); NRBC Pct Auto 0.0 /100WBC (0.0-0.2); Platelet Count 263 X10*3/uL (160-400); Red Blood Count 5.50 X10*6/uL (4.20-5.50); White Blood Count 10.9 X10*3/uL (4.8-10.8)
[2025-01-23 07:08] LABS: Anion Gap 17 (12-20); Blood Urea Nitrogen 22 mg/dL (9-16); Calcium 9.0 mg/dL (8.4-10.2); Carbon Dioxide 29 mmol/L (22-29); Chloride 95 mmol/L (96-108); Creatinine Clr Calc Pharmacy 91.3; Estimated Glomerular Filt Rate > 60; Magnesium 1.7 mg/dL (1.6-2.6); Potassium 4.7 mmol/L (3.3-5.1); Sodium 136 mmol/L (135-145)
[2025-01-23 07:26] LABS: Glucose, Whole Blood 412 mg/dL (60-115)
[2025-01-23] MEDS: Albuterol Sulfate (0.083%) 2.5 MG/3 ML VIAL.NEB INHALE (07:27)
[2025-01-23] MEDS: 0.9 % Sodium Chloride Flush 3 ML SYRINGE IVFLUSH ×3 (07:43→19:54)
[2025-01-23] MEDS: Nystatin Oral Susp 500,000 UNIT/5 ML ORAL.SUSP 500000 UNIT PO (07:44)
[2025-01-23] MEDS: Nicotine 21 MG PATCH.TD24 TRANSDERMA (07:44)
[2025-01-23 08:19] LABS: Chlamydia pneumoniae PCR Not Detected (Not Detect.); Coronavirus 229E PCR Not Detected (Not Detect.); Coronavirus HKU1 PCR Not Detected (Not Detect.); Coronavirus NL63 PCR Not Detected (Not Detect.); Coronavirus OC43 PCR Not Detected (Not Detect.); RSV PCR Not Detected (Not Detect.); Rhino/Enterovirus PCR Not Detected (Not Detect.); SARS-CoV-2 PCR Not Detected (Not Detect.)
--- NOTE | 2025-01-23 08:43 | HO.PM.IMPN ---
Subjective Subjective Date of Service: 01/23/25 Interval History: Patient seen and examined at bedside this morning, patient mentions that she is having erythema, as well as erythema in her hands, continues to have cough. Review of Systems Review of Systems: Yes all other systems are reviewed and are negative Physical Exam Exam: Exam: General: AxOx3, distress on supplemental oxygen Head: AT/NC ENT: Moist mucous membranes Neck: supple CVS; RRR, S1 S2 normal Lungs: Decreased bilateral breath sounds with diffuse rales on right side Abd: Soft non tender, non distended Ext: RLE edema MSK: moving all 4 limbs Skin: No cyanosis, erythema in bilateral hands Psych: Cooperative with exam Neurology: no focal deficit Vital Signs: Vital Signs: Last Vital Signs Temp 97.2 F 01/23/25 07:34 Pulse 69 01/23/25 07:34 Resp 18 01/23/25 07:34 BP 128/66 01/23/25 07:34 Pulse Ox 94 01/23/25 07:34 O2 Del Method Nasal Cannula 01/23/25 07:34 O2 Flow Rate 2 01/23/25 07:34 Oxygen Flow Rate 2 01/22/25 05:06 BMI result Body Mass Index 32.6 Objective Data Active Medications Amlodipine Besylate (Amlodipine Besylate 10 Mg Tablet) 10 mg PO DAILY@0030 [facility]; Protocol Last Admin: 01/23/25 00:46 Dose: 10 mg Documented By: JEFFY Aspirin (Aspirin 325 Mg Tablet) 325 mg PO BID@0030,1230 [facility] Last Admin: 01/23/25 00:45 Dose: 325 mg Documented By: JEFFY Baclofen (Baclofen 10 Mg Tablet) 10 mg PO BID PRN PRN Reason: spasm Calcium Carbonate (Calcium Carbonate 750 Mg Tab.Chew) 750 mg PO Q4H PRN PRN Reason: Heartburn Dextrose (Dextrose 50 % 25 Gm/50 Ml Syringe) 25 gm IVPUSH Q15M PRN; Protocol PRN Reason: per Hypoglycemia Standing Ord. Diazepam (Diazepam 2 Mg Tablet) 2 mg PO BEDTIME PRN PRN Reason: anxiety/muscle spasm Furosemide (Furosemide 40 Mg Tablet) 40 mg PO DAILY@1230 [facility]; Protocol Last Admin: 01/22/25 12:00 Dose: 40 mg Documented By: ADALID Glucose (Glucose Gel 15 Gm Gel..Gram.) 15 gm PO Q15M PRN; Protocol PRN Reason: per Hypoglycemia Standing Ord. Guaifenesin/Codeine Phosphate (Guaifen/Codeine Sf 200/20/10ml 10 Ml Liquid) 5 ml PO Q6H PRN PRN Reason: Cough Last Admin: 01/23/25 03:37 Dose: 5 ml Documented By: JEFFY Hydroxychloroquine Sulfate (Hydroxychloroquine Sulfate 200 Mg Tablet) 200 mg PO DAILY@0030 [facility] Last Admin: 01/23/25 00:45 Dose: 200 mg Documented By: JEFFY Doxycycline Hyclate 100 mg/ (Sodium Chloride) 250 mls @ 166.67 mls/hr IV Q12H [facility] Last Infusion: 01/23/25 05:40 Dose: Infused Documented By: JEFFY Ceftriaxone Sodium 1 gm/ (Sodium Chloride) 50 mls @ 100 mls/hr IV Q24H [facility] Insulin Glargine (Insulin Glargine,Hum.Rec.Anlog 100 Unit/Ml 10 Ml Vial) 40 unit SUBCUT DAILY@29 [facility] Last Admin: 01/23/25 00:47 Dose: 40 unit Documented By: JEFFY Insulin Human Lispro (Insulin Lispro 100 Unit/Ml 3 Ml Vial) 0 unit SUBCUT QIDACHS [facility]; Protocol Last Admin: 01/23/25 07:43 Dose: 10 unit Documented By: BETTY Levalbuterol HCl (Levalbuterol Hcl 1.25 Mg/3 Ml Vial.Neb) 1.25 mg INHALE RQ4H [facility] Levalbuterol HCl (Levalbuterol Hcl 1.25 Mg/3 Ml Vial.Neb) 1.25 mg INHALE RQ4H PRN PRN Reason: Shortness of Breath/Wheezing Losartan Potassium (Losartan Potassium 25 Mg Tablet) 25 mg PO DAILY@0030 [facility]; Protocol Last Admin: 01/23/25 00:46 Dose: 25 mg Documented By: JEFFY Magnesium Hydroxide (Milk Of Magnesia 30 Ml Oral.Susp) 30 ml PO DAILY PRN PRN Reason: Constipation Magnesium Oxide (Magnesium Oxide 400 Mg Tablet) 400 mg PO DAILY@0030 [facility] Last Admin: 01/23/25 00:45 Dose: 400 mg Documented By: JEFFY Melatonin (Melatonin 3 Mg Tablet) 6 mg PO BEDTIME PRN PRN Reason: Insomnia Metformin HCl (Metformin Hcl 1,000 Mg Tablet) 1,000 mg PO BID@ [facility] Last Admin: 01/23/25 01:04 Dose: Not Given Documented By: JEFFY Non-Admin Reason: pt refuseed Methylprednisolone Sodium Succinate (Methylprednisolone Sod Succ 40 Mg/Ml Vial) 40 mg IVPUSH Q6H [facility] Montelukast Sodium (Montelukast Sodium 10 Mg Tablet) 10 mg PO BEDTIME@29 [facility] Last Admin: 01/23/25 00:44 Dose: 10 mg Documented By: JEFFY Morphine Sulfate (Morphine Sulfate Er 30 Mg Tablet.Er) 30 mg PO BID@ [facility] Last Admin: 01/23/25 00:45 Dose: 30 mg Documented By: JEFFY Nicotine (Nicotine 21 Mg Patch.Td24) 21 mg TRANSDERMA DAILY [facility] Last Admin: 01/23/25 07:44 Dose: 21 mg Documented By: BETTY Nicotine Polacrilex (Nicotine Polacrilex 2 Mg Gum) 2 mg BUCCAL Q2H PRN PRN Reason: Nicotine Cravings Non-Formulary Medication (Hyoscyamine Sulfate) 0.125 mg PO QID PRN PRN Reason: Parkinsons Nystatin (Nystatin Oral Susp 500,000 Unit/5 Ml Oral.Susp) 500,000 unit PO DAILY [facility]; Protocol Last Admin: 01/23/25 07:44 Dose: 500,000 unit Documented By: BETTY Omeprazole (Omeprazole 20 Mg Capsule.Dr) 20 mg PO DAILY@1229 [facility] Last Admin: 01/22/25 12:00 Dose: 20 mg Documented By: ADALID Ondansetron HCl (Ondansetron Hcl 4 Mg/2 Ml Vial) 4 mg IVPUSH Q8H PRN PRN Reason: Nausea and Vomiting Oxycodone HCl (Oxycodone Hcl Immed Release 5 Mg Tablet) 10 mg PO QID PRN PRN Reason: Pain, Severe (Pain Scale 7-10) Last Admin: 01/23/25 04:10 Dose: 10 mg Documented By: JEFFY Pramipexole Dihydrochloride (Pramipexole Di-Hcl 0.25 Mg Tablet) 0.5 mg PO BID@ [facility] Last Admin: 01/23/25 00:45 Dose: 0.5 mg Documented By: JEFFY Sodium Chloride (0.9 % Sodium Chloride Flush 3 Ml Syringe) [facility] Admin: 01/23/25 07:43 Dose: 3 ml Documented By: BETTY Labs 01/23/25 05:52 01/23/25 05:52 Labs: Laboratory Results - last 24 hr 01/22/25 01/22/25 01/22/25 05:21 09:30 11:39 MCV MCH MCHC RDW Plt Count MPV Absolute Nucleated RBC Nucleated RBC % (auto) Anion Gap Estim Creat Clear Calc Estimated GFR POC Glucose 372 H* Random Glucose Lactic Acid F/U @ 2Hr 1.6 Uric Acid 4.9 Calcium Magnesium 01/22/25 01/22/25 01/23/25 16:15 20:46 05:52 MCV 86.9 MCH 27.1 MCHC 31.2 RDW 16.8 H Plt Count 263 MPV 10.2 Absolute Nucleated RBC 0.000 Nucleated RBC % (auto) 0.0 Anion Gap 17 Estim Creat Clear Calc 91.3 Estimated GFR > 60 POC Glucose 369 H* 285 H Random Glucose 421 H* Lactic Acid F/U @ 2Hr Uric Acid Calcium 9.0 Magnesium 1.7 01/23/25 01/23/25 05:52 06:45 MCV MCH MCHC RDW Plt Count MPV Absolute Nucleated RBC Nucleated RBC % (auto) Anion Gap Estim Creat Clear Calc Estimated GFR POC Glucose 412 H* Random Glucose Lactic Acid F/U @ 2Hr Uric Acid Calcium Magnesium Cancelled Microbiology Microbiology Results: Microbiology 01/22/25 05:50 Blood Culture - Preliminary Blood - Venous No growth after 24 hours. 01/22/25 05:21 Blood Culture - Preliminary Blood - Venous No growth after 24 hours. 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 Quality Stroke Does the patient have a stroke diagnosis?: No VTE Prior VTE?: No VTE Risk Level:: Medical - moderate - high VTE Device Contraindication: Treatment Not Indicated VTE Drug Contraindication: N/A - Med Ordered
[2025-01-23 09:02] LABS: Influenza A H1 PCR Not Detected (Not Detect.); Influenza A H1-2009 PCR Not Detected (Not Detect.); Influenza A H3 PCR Not Detected (Not Detect.)
[2025-01-23 11:42] LABS: Glucose, Whole Blood 296 mg/dL (60-115)
--- NOTE | 2025-01-23 15:47 | MHC.CM.PN ---
Addendum entered by Rowan Segundo 01/23/25 15:52: A referral has been sent to [facility] home care. Original Note: DX COPD exacerbation Lives with her . She ambulates independently. She requires assist with ADLS. DME Shower bench There is other equipment in the home. She does not use it but available [facility] in place. DP resume [facility]. Patients spouse will provide transport home.
[2025-01-23 16:09] LABS: Glucose, Whole Blood 397 mg/dL (60-115)
[2025-01-23 20:41] LABS: Glucose, Whole Blood 436 mg/dL (60-115)
[2025-01-23 20:59] LABS: Glucose, Whole Blood 421 mg/dL (60-115)
--- NOTE | 2025-01-23 22:00 | PC.NURSE ---
2200: Pt sitting on the edge of the bed, with sitter and camera at bedside. Upon initial introduction, Patients speech is very mumbled/garbled an difficult to understand, appears calm and cooperative at this time. When trying to give medications with pudding/apple juice, pt threw pudding on the ground, and started spitting it at staff along with ice cubes from her water. Additional attempts to calm patient down were not working by any staff, pt proceeded to continue to throw items & spit. Security called for safety. Security at bedside, temporally placed spit kirk on, then removed when appropriate. Hospitalist made aware new orders placed.
[2025-01-24] VITALS (10 sets, daily range): BP systolic 128–139; BP diastolic 60–71; PULSE 63–78; RESP 15–20; TEMP 36.2–36.4; O2SAT 91–100
[2025-01-24] MEDS: Morphine Sulfate ER 30 MG TABLET.ER PO ×2 (00:25→12:41)
[2025-01-24] MEDS: Insulin Glargine,Hum.rec.anlog 100 UNIT/ML 10 ML VIAL 40 UNIT SUBCUT (00:26)
[2025-01-24] MEDS: oxyCODONE HCl Immed Release 5 MG TABLET 10 MG PO ×4 (03:36→22:14)
[2025-01-24 07:45] LABS: Glucose, Whole Blood 398 mg/dL (60-115)
[2025-01-24] MEDS: Nicotine 21 MG PATCH.TD24 TRANSDERMA (07:51)
[2025-01-24] MEDS: 0.9 % Sodium Chloride Flush 3 ML SYRINGE IVFLUSH ×3 (07:51→20:49)
[2025-01-24] MEDS: Nystatin Oral Susp 500,000 UNIT/5 ML ORAL.SUSP 500000 UNIT PO (07:53)
--- NOTE | 2025-01-24 08:31 | P.PNIM_ITS ---
Subjective Subjective Date of Service: 01/24/25 Interval History: Patient seen examined at bedside this morning, mentions that her breathing has slightly improved, however is not feeling well. Patient also complaining of migraines however has severe allergies to Tylenol. Review of Systems Review of Systems: Yes all other systems are reviewed and are negative Physical Exam 2 Exam: Exam: General: AxOx3, distress on supplemental oxygen Head: AT/NC ENT: Moist mucous membranes Neck: supple CVS; RRR, S1 S2 normal Lungs: Decreased bilateral breath sounds with rales Abd: Soft non tender, non distended Ext: RLE edema MSK: moving all 4 limbs Skin: No cyanosis, erythema in bilateral hands, improving Psych: Cooperative with exam Neurology: no focal deficit Vital Signs: Vital Signs: Last Vital Signs Temp 97.1 F 01/24/25 07:44 Pulse 63 01/24/25 07:44 Resp 17 01/24/25 07:44 BP 132/71 01/24/25 07:44 Pulse Ox 96 01/24/25 07:44 O2 Del Method Nasal Cannula 01/24/25 07:44 O2 Flow Rate 2 01/24/25 07:44 Oxygen Flow Rate 2 01/22/25 05:06 BMI result Body Mass Index 32.6 Objective Data Active Medications Amlodipine Besylate (Amlodipine Besylate 10 Mg Tablet) 10 mg PO DAILY@0030 [facility]; Protocol Last Admin: 01/24/25 00:29 Dose: 10 mg Documented By: JERO Aspirin (Aspirin 325 Mg Tablet) 325 mg PO BID@0030,1230 [facility] Last Admin: 01/24/25 00:24 Dose: 325 mg Documented By: JERO Baclofen (Baclofen 10 Mg Tablet) 10 mg PO BID PRN PRN Reason: spasm Last Admin: 01/24/25 00:24 Dose: 10 mg Documented By: JERO Calcium Carbonate (Calcium Carbonate 750 Mg Tab.Chew) 750 mg PO Q4H PRN PRN Reason: Heartburn Dextrose (Dextrose 50 % 25 Gm/50 Ml Syringe) 25 gm IVPUSH Q15M PRN; Protocol PRN Reason: per Hypoglycemia Standing Ord. Diazepam (Diazepam 2 Mg Tablet) 2 mg PO BEDTIME PRN PRN Reason: anxiety/muscle spasm Furosemide (Furosemide 40 Mg Tablet) 40 mg PO DAILY@1230 [facility]; Protocol Last Admin: 01/23/25 11:58 Dose: 40 mg Documented By: BETTY Glucose (Glucose Gel 15 Gm Gel..Gram.) 15 gm PO Q15M PRN; Protocol PRN Reason: per Hypoglycemia Standing Ord. Guaifenesin/Codeine Phosphate (Guaifen/Codeine Sf 200/20/10ml 10 Ml Liquid) 5 ml PO Q6H PRN PRN Reason: Cough Last Admin: 01/23/25 23:00 Dose: 5 ml Documented By: JERO Hydroxychloroquine Sulfate (Hydroxychloroquine Sulfate 200 Mg Tablet) 200 mg PO DAILY@0030 [facility] Last Admin: 01/24/25 00:25 Dose: 200 mg Documented By: JERO Doxycycline Hyclate 100 mg/ (Sodium Chloride) 250 mls @ 166.67 mls/hr IV Q12H [facility] Last Infusion: 01/24/25 05:06 Dose: Infused Documented By: JERO Ceftriaxone Sodium 1 gm/ (Sodium Chloride) 50 mls @ 100 mls/hr IV Q24H [facility] Last Infusion: 01/24/25 08:24 Dose: Infused Documented By: ALEXIS Insulin Glargine (Insulin Glargine,Hum.Rec.Anlog 100 Unit/Ml 10 Ml Vial) 40 unit SUBCUT DAILY@0030 [facility] Last Admin: 01/24/25 00:26 Dose: 40 unit Documented By: JERO Insulin Human Lispro (Insulin Lispro 100 Unit/Ml 3 Ml Vial) 0 unit SUBCUT QIDAS [facility]; Protocol Last Admin: 01/24/25 07:50 Dose: 10 unit Documented By: ALEXIS Insulin Human Lispro (Insulin Lispro 100 Unit/Ml 3 Ml Vial) 5 unit SUBCUT QIDAS [facility] Last Admin: 01/24/25 07:50 Dose: 5 unit Documented By: ALEXIS Levalbuterol HCl (Levalbuterol Hcl 1.25 Mg/3 Ml Vial.Neb) 1.25 mg INHALE RQ4H [facility] Last Admin: 01/24/25 08:27 Dose: 1.25 mg Documented By: STEVIE Levalbuterol HCl (Levalbuterol Hcl 1.25 Mg/3 Ml Vial.Neb) 1.25 mg INHALE RQ4H PRN PRN Reason: Shortness of Breath/Wheezing Losartan Potassium (Losartan Potassium 25 Mg Tablet) 25 mg PO DAILY@0030 [facility]; Protocol Last Admin: 01/24/25 00:29 Dose: 25 mg Documented By: JERO Magnesium Hydroxide (Milk Of Magnesia 30 Ml Oral.Susp) 30 ml PO DAILY PRN PRN Reason: Constipation Magnesium Oxide (Magnesium Oxide 400 Mg Tablet) 400 mg PO DAILY@0030 [facility] Last Admin: 01/24/25 00:25 Dose: 400 mg Documented By: JERO Melatonin (Melatonin 3 Mg Tablet) 6 mg PO BEDTIME PRN PRN Reason: Insomnia Methylprednisolone Sodium Succinate (Methylprednisolone Sod Succ 40 Mg/Ml Vial) 40 mg IVPUSH Q6H [facility] Last Admin: 01/24/25 07:51 Dose: 40 mg Documented By: ALEXIS Montelukast Sodium (Montelukast Sodium 10 Mg Tablet) 10 mg PO BEDTIME@0030 [facility] Last Admin: 01/24/25 00:33 Dose: 10 mg Documented By: JERO Morphine Sulfate (Morphine Sulfate Er 30 Mg Tablet.Er) 30 mg PO BID@0030,1230 [facility] Last Admin: 01/24/25 00:25 Dose: 30 mg Documented By: JERO Nicotine (Nicotine 21 Mg Patch.Td24) 21 mg TRANSDERMA DAILY [facility] Last Admin: 01/24/25 07:51 Dose: 21 mg Documented By: ALEXIS Nicotine Polacrilex (Nicotine Polacrilex 2 Mg Gum) 2 mg BUCCAL Q2H PRN PRN Reason: Nicotine Cravings Non-Formulary Medication (Hyoscyamine Sulfate) 0.125 mg PO QID PRN PRN Reason: Parkinsons Nystatin (Nystatin Oral Susp 500,000 Unit/5 Ml Oral.Susp) 500,000 unit PO DAILY [facility]; Protocol Last Admin: 01/24/25 07:53 Dose: 500,000 unit Documented By: ALEXIS Omeprazole (Omeprazole 20 Mg Capsule.Dr) 20 mg PO DAILY@1230 [facility] Last Admin: 01/23/25 11:58 Dose: 20 mg Documented By: BETTY Ondansetron HCl (Ondansetron Hcl 4 Mg/2 Ml Vial) 4 mg IVPUSH Q8H PRN PRN Reason: Nausea and Vomiting Last Admin: 01/23/25 15:51 Dose: 4 mg Documented By: BETTY Oxycodone HCl (Oxycodone Hcl Immed Release 5 Mg Tablet) 10 mg PO QID PRN PRN Reason: Pain, Severe (Pain Scale 7-10) Last Admin: 01/24/25 03:36 Dose: 10 mg Documented By: ELPIDIO Pramipexole Dihydrochloride (Pramipexole Di-Hcl 0.25 Mg Tablet) 0.5 mg PO BID@0030,1230 [facility] Last Admin: 01/24/25 00:24 Dose: 0.5 mg Documented By: JERO Sodium Chloride (0.9 % Sodium Chloride Flush 3 Ml Syringe) 3 ml IVFLUSH QSHIFT [facility] Last Admin: 01/24/25 07:51 Dose: 3 ml Documented By: ALEXIS Labs 01/23/25 05:52 01/23/25 05:52 Labs: Laboratory Results - last 24 hr 01/22/25 01/23/25 01/23/25 09:42 11:34 16:06 POC Glucose 296 H 397 H* Respiratory Panel [place] See Note Adenovirus (Rapid PCR) Not Detected B.pert (TEM-PCR) Not Detected B.parapertussis DNA PCR Not Detected C. pneumoniae DNA (PCR) Not Detected Coronavirus OC43 (PCR) Not Detected Coronavirus HKU1 (PCR) Not Detected Coronavirus 229E (PCR) Not Detected Coronavirus NL63 (PCR) Not Detected Human Metapneumovir PCR Not Detected Influenza A (RT-PCR) Not Detected Influenza A (H1) PCR Not Detected Influ A (H1/09) PCR Not Detected Influenza A (H3) PCR Not Detected Influenza B (RT-PCR) Not Detected M. pneumoniae (PCR) Not Detected Parainfluenza 1 (PCR) Not Detected Parainfluenza 2 (PCR) Not Detected Parainfluenza 3 (PCR) Not Detected Parainfluenza 4 (PCR) Not Detected RSV (PCR) Not Detected Entero/Rhino (PCR) Not Detected SARS-CoV-2 RNA (RT-PCR) Not Detected 01/23/25 01/23/25 01/24/25 19:34 20:55 07:36 POC Glucose 436 H* 421 H* 398 H* Respiratory Panel [place] Adenovirus (Rapid PCR) B.pert (TEM-PCR) B.parapertussis DNA PCR C. pneumoniae DNA (PCR) Coronavirus OC43 (PCR) Coronavirus HKU1 (PCR) Coronavirus 229E (PCR) Coronavirus NL63 (PCR) Human Metapneumovir PCR Influenza A (RT-PCR) Influenza A (H1) PCR Influ A (H1/09) PCR Influenza A (H3) PCR Influenza B (RT-PCR) M. pneumoniae (PCR) Parainfluenza 1 (PCR) Parainfluenza 2 (PCR) Parainfluenza 3 (PCR) Parainfluenza 4 (PCR) RSV (PCR) Entero/Rhino (PCR) SARS-CoV-2 RNA (RT-PCR) Microbiology Microbiology Results: Microbiology 01/22/25 05:50 Blood Culture - Preliminary Blood - Venous No growth after 48 hours. 01/22/25 05:21 Blood Culture - Preliminary Blood - Venous No growth after 48 hours. 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 Pulmonology consulted Left lower extremity swelling Venous Doppler ultrasound negative for DVT Elevate extremity Randall stockings Hypertension Stable blood pressure Continue home medications Mental health Continue home medications Diabetes mellitus type 2 with hyperglycemia likely from high dose steroids Sliding scale, ADA diet lantus Chronic cough Continue antitussives Sjogren's Immunodeficiency secondary to medications Chronic Continue Plaquenil Migraine unable to take fioricet in the setting of anaphylaxis to tylenol, will give one dose of dilaudid, will try to obtain patients home med Smoker Discussed the importance of smoking cessation NRT patch 21 mg DVT prophylaxis with full-dose aspirin( Home med) Full code Total time managing care of this patient today: 55 minutes. Quality Stroke Does the patient have a stroke diagnosis?: No VTE Prior VTE?: No VTE Risk Level:: Medical - moderate - high VTE Device Contraindication: Treatment Not Indicated VTE Drug Contraindication: N/A - Med Ordered
[2025-01-24] MEDS: Milk of Magnesia 30 ML ORAL.SUSP PO (09:43)
--- NOTE | 2025-01-24 10:46 | P.CDIM_ITS ---
PROVIDER RESPONSE TEXT: To clarify, the appropriate diagnosis supported by the clinical indicators: Diabetes mellitus Type 2 with hyperglycemia QUERY TEXT: PHYSICIAN'S DOCUMENTATION REQUEST Date of Query: 01/24/2025 09:31 AM EST Patient Name: Lashon Parra Admit Date: 01/22/2025 Dear Gordo Cardona MD, A review of the medical record indicates additional documentation may be needed. Please review below and update the documentation accordingly. Clinical Indicators: LABS: POC glucose 412 H 436 H Diabetes mellitus Type 2, sliding scale, ADA diet Lantus Based on the above, is there a diagnosis that corresponds with the DM Type 2: Diabetes mellitus Type 2 with hyperglycemia Other etiology of lab findings Other (explain) Clinically unable to determine (explain) Thank you, Rosalie Alexandre, CCS, CDIS Use of terms such as suspected, likely, concern for, or probable (associated with a specific diagnosis that is being evaluated, monitored, or treated as if it exists) are acceptable and can be coded in the inpatient setting, when documented at the time of discharge. Please use your independent medical judgment in providing your response. THIS QUERY IS PART OF THE PERMANENT MEDICAL RECORD
[2025-01-24 11:51] LABS: Glucose, Whole Blood 259 mg/dL (60-115)
[2025-01-24] MEDS: guaiFEN/Codeine SF 200/20/10ML 10 ML LIQUID 5 ML PO ×2 (12:45→20:46)
--- NOTE | 2025-01-24 14:24 | PM.CNPUL ---
History of Present Illness History of Present Illness Consult date: 01/24/25 Chief complaint: Acute Hypoxic Resp Failure COPD Narrative: 64-year-old lady, active 40 pack-year smoker, underlying Sjogren's and RA related ILD, also COPD on 2 L of supplemental oxygen, TENISHA, and chronic bronchitis hospitalized at [facility] on 01/22/2025 with worsening dyspnea and cough and empirically treated for COPD exacerbation. Now essentially at baseline, though still with somewhat poor bilateral air movement. Of note, patient is suboptimally compliant with her supplemental oxygen. Review of Systems Constitutional: Constitutional: Denies daytime sleepiness, Denies excessive sweating, Denies fatigue, Denies fever(s), Denies lethargy, Denies malaise, Denies night sweats, Denies snoring and Denies weight loss Eyes: Eyes: Denies blurry vision and Denies itchy eyes ENT: Denies nasal congestion, Denies post nasal drip, Denies sinus pain, Denies sinus pressure and Denies other ( Thrush) Cardiovascular: Cardiovascular: Denies chest pain, Denies pedal edema, Denies dyspnea, Denies orthopnea and Denies paroxysmal nocturnal dyspnea Respiratory: Respiratory: Denies cough, Denies hemoptysis, Denies excessive phlegm production, Denies dyspnea, Denies snoring and Denies wheezing Gastrointestinal: Gastrointestinal: Denies abdominal pain and Denies heartburn Musculoskeletal: Musculoskeletal: Denies myalgias, Denies arthralgias and Denies joint swelling Integumentary/Breasts: Skin/Breast: Denies rash Neurologic: Denies memory loss and Denies seizure-like activity Psychiatric: Psychiatric: Denies abnormal sleep pattern, Denies anxiety and Denies memory loss Endocrine: Endocrine: Denies excessive sweating, Denies fatigue and Denies heat intolerance Hematologic/Lymphatic: Hematologic/Lymphatic: Denies easy bruising Allergic/Immunologic: Allergic/Immunologic: Denies itchy eyes, Denies seasonal rhinorrhea and Denies wheezing PMFSH Past Medical History Medical History Sezary disease Supplemental oxygen dependent Leg edema, left Chest pain Sjogrens syndrome Insulin 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 2 diabetes COPD (chronic obstructive pulmonary disease) Congestive heart failure Atelectasis Lymphoproliferative disorder TENISHA (obstructive sleep apnea) Emphysema lung Pulmonary hypertension Tobacco dependence due to cigarettes Diabetes mellitus with hyperglycemia Chronic pain syndrome 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 Osteoporosis Rheumatoid arthritis Osteoarthritis Chronic, continuous use of opioids GERD (gastroesophageal reflux disease) Hx of difficult intubation Smoker COPD (chronic obstructive pulmonary disease) Asthma Polycythemia Boils Eczema Bursitis Disc degeneration Sleep apnea Diabetes Fibromyalgia Family History Family History Mother Polycythemia TIA (transient ischemic attack) Father Heart attack Other No family history of cancer Surgical History Surgical History History of esophagogastroduodenoscopy (EGD) Hx of tonsillectomy History of surgical removal of pilonidal cyst Hx of plastic surgery Hx of hysterectomy Hx of cholecystectomy Hx of appendectomy History of colonoscopy History of bladder suspension procedure History of removal of cyst Social History Social History Household Members: Spouse Housing: House Are you a primary director of career resources to a significant other at home: No Do you presently have visiting nurse or other home services: Yes ([facility] couple times a week) Alcohol intake: never Comment: pt refusing alarm. Patient Tobacco Use Status: Current everyday Tobacco user Tobacco use type: Cigarette Cigarette Packs Per Day: 1 Cigarettes Per Day: 6 Years Smoked: 51 e-Cigarette/Vaping Use: Never Used Second Hand Smoke Exposure: No Advance Directives Date on File: 12/24/19 service: No Current occupational status: retired 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 Cognitive needs: No Hearing needs: No Vision needs: No Meds Allergies Allergy/AdvReac Type Severity Reaction Status Date / Time acetaminophen (From TYLENOL) Allergy Severe Anaphylaxis Verified 01/22/25 05:09 atorvastatin (From LIPITOR) Allergy Severe Difficulty Verified 01/22/25 05:09 Breathing azithromycin (AZITHROMYCIN) Allergy Severe Difficulty Verified 01/22/25 05:09 Breathing mite-Dermatophagoides Allergy Severe Difficulty Verified 01/22/25 05:09 farinae, vicente (dust mite - Breathing [place]) sumatriptan (From IMITREX) Allergy Severe Difficulty Verified 01/22/25 05:09 Breathing house dust Allergy Mild Unknown Verified 01/22/25 05:09 adhesive tape (ADHESIVE TAPE) Allergy Unknown Rash Verified 01/22/25 05:09 gentamicin (GENTAMICIN) Allergy Unknown Rash Verified 01/22/25 05:09 adalimumab (From Humira) Allergy Rash Verified 01/22/25 05:09 erythromycin base Allergy Unknown Verified 01/22/25 05:09 haloperidol (From HALDOL) AdvReac Unknown GI Issues Verified 01/22/25 05:09 ketorolac (From TORADOL) AdvReac Unknown Muscle Verified 01/22/25 05:09 cramps prasterone (DHEA) (From DHEA) AdvReac Unknown Cardiac Verified 01/22/25 05:09 issues varenicline (From CHANTIX) AdvReac Unknown Seizure Verified 01/22/25 05:09 ipratropium (From Atrovent) AdvReac Migraine Verified 01/22/25 05:09 Active Medications: Current Medications Amlodipine Besylate (Amlodipine Besylate 10 Mg Tablet) 10 mg PO DAILY@0030 [facility]; Protocol Last Admin: 01/24/25 00:29 Dose: 10 mg Aspirin (Aspirin 325 Mg Tablet) 325 mg PO BID@0030,1230 [facility] Last Admin: 01/24/25 12:41 Dose: 325 mg Baclofen (Baclofen 10 Mg Tablet) 10 mg PO BID PRN PRN Reason: spasm Last Admin: 01/24/25 00:24 Dose: 10 mg Calcium Carbonate (Calcium Carbonate 750 Mg Tab.Chew) 750 mg PO Q4H PRN PRN Reason: Heartburn Dextrose (Dextrose 50 % 25 Gm/50 Ml Syringe) 25 gm IVPUSH Q15M PRN; Protocol PRN Reason: per Hypoglycemia Standing Ord. Diazepam (Diazepam 2 Mg Tablet) 2 mg PO BEDTIME PRN PRN Reason: anxiety/muscle spasm Furosemide (Furosemide 40 Mg Tablet) 40 mg PO DAILY@1230 [facility]; Protocol Last Admin: 01/24/25 12:19 Dose: 40 mg Glucose (Glucose Gel 15 Gm Gel..Gram.) 15 gm PO Q15M PRN; Protocol PRN Reason: per Hypoglycemia Standing Ord. Guaifenesin/Codeine Phosphate (Guaifen/Codeine Sf 200/20/10ml 10 Ml Liquid) 5 ml PO Q6H PRN PRN Reason: Cough Last Admin: 01/24/25 12:45 Dose: 5 ml Hydroxychloroquine Sulfate (Hydroxychloroquine Sulfate 200 Mg Tablet) 200 mg PO DAILY@0030 [facility] Last Admin: 01/24/25 00:25 Dose: 200 mg Doxycycline Hyclate 100 mg/ (Sodium Chloride) 250 mls @ 166.67 mls/hr IV Q12H [facility] Last Infusion: 01/24/25 05:06 Dose: Infused Ceftriaxone Sodium 1 gm/ (Sodium Chloride) 50 mls @ 100 mls/hr IV Q24H [facility] Last Infusion: 01/24/25 08:24 Dose: Infused Insulin Glargine (Insulin Glargine,Hum.Rec.Anlog 100 Unit/Ml 10 Ml Vial) 40 unit SUBCUT DAILY@0 [facility] Last Admin: 01/24/25 00:26 Dose: 40 unit Insulin Human Lispro (Insulin Lispro 100 Unit/Ml 3 Ml Vial) [facility]; Protocol Last Admin: 01/24/25 12:18 Dose: 6 unit Insulin Human Lispro (Insulin Lispro 100 Unit/Ml 3 Ml Vial) 5 unit SUBCUT QIDAS [facility] Last Admin: 01/24/25 12:18 Dose: 5 unit Levalbuterol HCl (Levalbuterol Hcl 1.25 Mg/3 Ml Vial.Neb) 1.25 mg INHALE RQ4H [facility] Last Admin: 01/24/25 11:34 Dose: 1.25 mg Levalbuterol HCl (Levalbuterol Hcl 1.25 Mg/3 Ml Vial.Neb) 1.25 mg INHALE RQ4H PRN PRN Reason: Shortness of Breath/Wheezing Losartan Potassium (Losartan Potassium 25 Mg Tablet) 25 mg PO DAILY@29 [facility]; Protocol Last Admin: 01/24/25 00:29 Dose: 25 mg Magnesium Hydroxide (Milk Of Magnesia 30 Ml Oral.Susp) 30 ml PO DAILY PRN PRN Reason: Constipation Last Admin: 01/24/25 09:43 Dose: 30 ml Magnesium Oxide (Magnesium Oxide 400 Mg Tablet) 400 mg PO DAILY@29 [facility] Last Admin: 01/24/25 00:25 Dose: 400 mg Melatonin (Melatonin 3 Mg Tablet) 6 mg PO BEDTIME PRN PRN Reason: Insomnia Methylprednisolone Sodium Succinate (Methylprednisolone Sod Succ 40 Mg/Ml Vial) 40 mg IVPUSH Q6H [facility] Last Admin: 01/24/25 07:51 Dose: 40 mg Montelukast Sodium (Montelukast Sodium 10 Mg Tablet) 10 mg PO BEDTIME@0030 [facility] Last Admin: 01/24/25 00:33 Dose: 10 mg Morphine Sulfate (Morphine Sulfate Er 30 Mg Tablet.Er) 30 mg PO BID@29,1229 [facility] Last Admin: 01/24/25 12:41 Dose: 30 mg Nicotine (Nicotine 21 Mg Patch.Td24) 21 mg TRANSDERMA DAILY [facility] Last Admin: 01/24/25 07:51 Dose: 21 mg Nicotine Polacrilex (Nicotine Polacrilex 2 Mg Gum) 2 mg BUCCAL Q2H PRN PRN Reason: Nicotine Cravings Non-Formulary Medication (Hyoscyamine Sulfate) 0.125 mg PO QID PRN PRN Reason: Parkinsons Non-Formulary Medication (Mneshcx-Depucmyvvu-Lpd-Caff) 1 cap PO QID PRN PRN Reason: headache Nystatin (Nystatin Oral Susp 500,000 Unit/5 Ml Oral.Susp) 500,000 unit PO DAILY [facility]; Protocol Last Admin: 01/24/25 07:53 Dose: 500,000 unit Omeprazole (Omeprazole 20 Mg Capsule.Dr) 20 mg PO DAILY@1229 [facility] Last Admin: 01/24/25 12:19 Dose: 20 mg Ondansetron HCl (Ondansetron Hcl 4 Mg/2 Ml Vial) 4 mg IVPUSH Q8H PRN PRN Reason: Nausea and Vomiting Last Admin: 01/24/25 12:18 Dose: 4 mg Oxycodone HCl (Oxycodone Hcl Immed Release 5 Mg Tablet) 10 mg PO QID PRN PRN Reason: Pain, Severe (Pain Scale 7-10) Last Admin: 01/24/25 09:42 Dose: 10 mg Pramipexole Dihydrochloride (Pramipexole Di-Hcl 0.25 Mg Tablet) 0.5 mg PO BID@ [facility] Last Admin: 01/24/25 12:41 Dose: 0.5 mg Sodium Chloride (0.9 % Sodium Chloride Flush 3 Ml Syringe) 3 ml IVFSH [facility] Last Admin: 01/24/25 07:51 Dose: 3 ml Home Medications ?Medication ?Instructions ?Recorded ?Confirmed ?Last Taken ?Type aspirin 325 mg tablet 325 mg PO BID@29,1230 09/27/20 01/22/25 01/21/25 History hydroxychloroquine 200 mg tablet 200 mg PO DAILY@0030 07/27/24 01/22/25 01/21/25 History losartan 25 mg tablet 25 mg PO DAILY@0030 07/27/24 01/22/25 01/21/25 History magnesium oxide 400 mg (241.3 mg 400 mg PO DAILY@0030 07/27/24 01/22/25 01/21/25 History magnesium) tablet metformin 1,000 mg tablet 1,000 mg PO BID@0030,1230 07/27/24 01/22/25 01/21/25 History pramipexole 0.25 mg tablet 0.5 mg PO BID@1230,0030 07/27/24 01/22/25 01/21/25 History montelukast 10 mg tablet 10 mg PO BEDTIME@0030 09/13/24 01/22/25 01/21/25 History tiotropium 2.5 mcg-olodaterol 2.5 2 puff inhalation DAILY@1230 09/13/24 01/22/25 01/21/25 History mcg/actuation mist for inhalation (Stiolto Respimat) furosemide 40 mg tablet (Lasix) 40 mg PO DAILY@1230 09/28/24 01/22/25 01/21/25 History lidocaine 4 % topical patch 3 patch transdermal DAILY PRN Pain 11/04/24 01/22/25 12/05/24 History (Lidocaine Pain Relief) nicotine (polacrilex) 4 mg buccal 4 mg buccal Q4H PRN nicotine 11/04/24 01/22/25 12/05/24 History lozenge cravings nystatin 100,000 unit/mL oral 5 ml PO DAILY 11/04/24 01/22/25 01/21/25 History suspension One touch ultra test strips 11/15/24 Unknown History baclofen 10 mg tablet 10 mg PO BID PRN Pain 12/06/24 01/22/25 12/05/24 History insulin lispro 100 unit/mL 30 unit subcut TIDAC 12/21/24 01/22/25 01/21/25 History subcutaneous pen diclofenac sodium 75 mg 75 mg PO DAILY PRN Pain 01/22/25 01/22/25 Unknown History tablet,delayed release hyoscyamine sulfate 0.125 mg tablet 0.125 mg PO QID PRN Parkinsons 01/22/25 01/22/25 Unknown History insulin glargine-yfgn 100 unit/mL 40 unit subcut DAILY 01/22/25 01/22/25 01/21/25 History subcutaneous solution loratadine 10 mg tablet 10 mg PO DAILY 01/22/25 01/22/25 01/21/25 History mupirocin 2 % topical ointment 1 appl topical BID PRN Skin 01/22/25 01/22/25 Unknown History Irritation Physical Exam Vital Signs: Vital Signs: Last Vital Signs Temp 97.1 F 01/24/25 07:44 Pulse 69 01/24/25 11:35 Resp 17 01/24/25 11:35 BP 132/71 01/24/25 07:44 Pulse Ox 96 01/24/25 07:44 O2 Del Method Nasal Cannula 01/24/25 07:44 O2 Flow Rate 2 01/24/25 07:44 Oxygen Flow Rate 2 01/22/25 05:06 BMI result Body Mass Index 32.6 Const: General: no acute distress and alert Nutritional Appearance: not obese Orientation/consciousness: Other orientation findings ( oriented) HEENT: Head: Yes atraumatic Eyes: General: appearance normal, both eyes and all related structures Sclerae: sclerae normal EOM: EOMs intact bilaterally Neck: Neck: Yes supple Lymphatic: no lymphadenopathy noted Resp: Effort & Inspection: normal respiratory effort and no use of accessory muscles Auscultation: wheezes (Mild bilateral) Cardio: Rate: regular rate Rhythm: regular rhythm Heart sounds: no gallops, no murmurs and no rubs Skin: General skin exam: other ( warm) Extrem: General: No clubbing, No cyanosis and No edema Results Laboratory Findings 01/23/25 05:52 01/23/25 05:52 ABG, PT/INR, D-dimer: PT/INR, D-dimer PT 12.6 SEC (11.2-13.5) 01/22/25 05:21 INR 1.0 (0.9-1.1) 01/22/25 05:21 Abnormal lab findings: Abnormal Labs 01/22/25 01/22/25 01/22/25 05:21 05:28 11:39 WBC 11.8 H RBC 6.03 H Hgb 16.5 H Hct 51.8 H RDW 17.0 H MPV 9.2 L Neut % (Auto) 74.9 H Lymph % (Auto) 17.9 L Abs Immat Gran (auto) 0.05 H Absolute Neuts (auto) 8.8 H VBG HCO3 35 H Chloride 94 L Carbon Dioxide 30 H BUN POC Glucose 372 H* Random Glucose 297 H Lactic Acid 3.3 H* Magnesium 1.5 L 01/22/25 01/22/25 01/23/25 16:15 20:46 05:52 WBC 10.9 H RBC Hgb Hct 47.8 H RDW 16.8 H MPV Neut % (Auto) Lymph % (Auto) Abs Immat Gran (auto) Absolute Neuts (auto) VBG HCO3 Chloride 95 L Carbon Dioxide BUN 22 H POC Glucose 369 H* 285 H Random Glucose 421 H* Lactic Acid Magnesium 01/23/25 01/23/25 01/23/25 06:45 11:34 16:06 WBC RBC Hgb Hct RDW MPV Neut % (Auto) Lymph % (Auto) Abs Immat Gran (auto) Absolute Neuts (auto) VBG HCO3 Chloride Carbon Dioxide BUN POC Glucose 412 H* 296 H 397 H* Random Glucose Lactic Acid Magnesium 01/23/25 01/23/25 01/24/25 19:34 20:55 07:36 WBC RBC Hgb Hct RDW MPV Neut % (Auto) Lymph % (Auto) Abs Immat Gran (auto) Absolute Neuts (auto) VBG HCO3 Chloride Carbon Dioxide BUN POC Glucose 436 H* 421 H* 398 H* Random Glucose Lactic Acid Magnesium 01/24/25 11:48 WBC RBC Hgb Hct RDW MPV Neut % (Auto) Lymph % (Auto) Abs Immat Gran (auto) Absolute Neuts (auto) VBG HCO3 Chloride Carbon Dioxide BUN POC Glucose 259 H Random Glucose Lactic Acid Magnesium Microbiology: Microbiology 01/22/25 05:50 Blood - Venous Blood Culture - Preliminary No growth after 48 hours. 01/22/25 05:21 Blood - Venous Blood Culture - Preliminary No growth after 48 hours. Assessment and Plan (1) COPD (chronic obstructive pulmonary disease): Qualifiers: COPD type: unspecified COPD Qualified Code(s): J44.9 - Chronic obstructive pulmonary disease, unspecified Status: Acute (2) Supplemental oxygen dependent: Status: Acute (3) Chronic lung disease: Status: Acute Plan Impression: 64-year-old lady with combined connective tissue related ILD and COPD on 2 L of supplemental oxygen admitted with what appears to be COPD exacerbation, now improved close to baseline. Recommendations: Agree with current medication regimen including systemic glucocorticoids and nebulized bronchodilators. Consider discontinuation of empiric antibiotic therapy. Procedures Date of Service Date of Service: 01/24/25
--- NOTE | 2025-01-24 15:46 | MHC.CM.PN ---
per rounds pt not ready for dc dc plan emains for home
[2025-01-24 16:09] LABS: Glucose, Whole Blood 254 mg/dL (60-115)
[2025-01-24 20:43] LABS: Glucose, Whole Blood 318 mg/dL (60-115)
[2025-01-25] VITALS (7 sets, daily range): BP systolic 132–156; BP diastolic 61–67; PULSE 65–75; RESP 16–19; TEMP 36.2–36.7; O2SAT 94–99
[2025-01-25 00:52] LABS: Glucose, Whole Blood 354 mg/dL (60-115)
[2025-01-25] MEDS: Morphine Sulfate ER 30 MG TABLET.ER PO ×2 (00:57→11:39)
[2025-01-25] MEDS: Insulin Glargine,Hum.rec.anlog 100 UNIT/ML 10 ML VIAL 40 UNIT SUBCUT (00:58)
[2025-01-25] MEDS: guaiFEN/Codeine SF 200/20/10ML 10 ML LIQUID 5 ML PO ×2 (04:23→10:36)
[2025-01-25] MEDS: oxyCODONE HCl Immed Release 5 MG TABLET 10 MG PO ×2 (04:23→09:27)
[2025-01-25 07:40] LABS: Glucose, Whole Blood 342 mg/dL (60-115)
[2025-01-25] MEDS: Nicotine 21 MG PATCH.TD24 TRANSDERMA ×2 (07:49→08:01)
[2025-01-25] MEDS: 0.9 % Sodium Chloride Flush 3 ML SYRINGE IVFLUSH (07:50)
[2025-01-25] MEDS: Nystatin Oral Susp 500,000 UNIT/5 ML ORAL.SUSP 500000 UNIT PO (07:50)
[2025-01-25] MEDS: Milk of Magnesia 30 ML ORAL.SUSP PO (09:24)
[2025-01-25 11:24] LABS: Glucose, Whole Blood 315 mg/dL (60-115)
--- NOTE | 2025-01-25 13:29 | P.DS_ITS ---
DS: Providers Provider Date of Service: 01/25/25 Date of admission: 01/22/25 09:11 Date of discharge: 01/25/25 Primary care physician: Dottie Douglass MD Consults: 01/24/25 08:31 Consult to Pulmonology Routine Consulting Provider: [facility] Reason for consultation: COPD Has provider been notified: No DS: Diagnosis Discharge Diagnosis (1) COPD (chronic obstructive pulmonary disease): Status: Acute (2) Supplemental oxygen dependent: Status: Acute (3) Chronic lung disease: Status: Acute DS: Summary Hospital Course Hospital Course: 64 year old women admitted with acute on chronic hypoxic respiratory failure secondary to COPD exacerbation. Patient was placed on empiric IV antibiotics as well as steroids and nebulizing treatments. Pulmonology consulted, suggested on continue glucocorticoids and nebulized bronchodilators the patient was close to baseline on 01/24. ILD/COPD exacerbation, improved Chronic respiratory failure on O2, 2 L of oxygen at home Imagining reviewed We will discharged on Medrol Dosepak, as well as cough medication. 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 Continue Plaquenil Tobacco use disorder Discussed the importance of smoking cessation Time Attestation Discharge Coordination Time (in mins): 35 minutes Quality: Safe Use of Opioids Does Pt have an Active Cancer Diagnosis on the Problem List?: No Quality: Stroke Does the patient have a stroke diagnosis?: No Physical Exam Exam: Exam: General: AxOx3, no distress on supplemental oxygen Head: AT/NC ENT: Moist mucous membranes Neck: supple CVS; RRR, S1 S2 normal Lungs: Decreased bilateral breath sounds, improved rales Abd: Soft non tender, non distended Ext: RLE edema MSK: moving all 4 limbs Skin: No cyanosis Psych: Cooperative with exam Neurology: no focal deficit Vital Signs: Vital Signs: Last Vital Signs Temp 97.2 F 01/25/25 07:47 Pulse 68 01/25/25 12:04 Resp 18 01/25/25 12:04 BP 156/67 H 01/25/25 07:47 Pulse Ox 94 01/25/25 07:47 O2 Del Method Nasal Cannula 01/25/25 07:47 O2 Flow Rate 2 01/25/25 07:47 Oxygen Flow Rate 2 01/22/25 05:06 BMI result Body Mass Index 32.6 DS: Data Data Completed and Pending Completed studies during hospitalization [Text1]: Procedures Assistance with Respiratory Ventilation, Less than 24 Consecutive Hours, Continuous Positive Airway Pressure (07/27/24) Labs on day of discharge: Laboratory Results - last 24 hr 01/24/25 01/24/25 01/25/25 16:05 20:40 00:47 POC Glucose 254 H 318 H 354 H* 01/25/25 01/25/25 07:36 11:20 POC Glucose 342 H 315 H Preliminary micro results at discharge 01/22/25 05:50 Blood Culture - Preliminary Blood - Venous No growth after 48 hours. 01/22/25 05:21 Blood Culture - Preliminary Blood - Venous No growth after 48 hours. Discharge Plan Discharge Anticipated Discharge Date/Time: 01/25/25 14:18 Patient Disposition: Home, Self-Care Discharge Diagnosis: ILD exacerbation COPD Referrals: Dottie Douglass MD [Primary Care Provider, Endocrinology] - 1 Week Jean Pierre Nevarez MD [Physician, Pulmonology] - 1 Week Discharge Medications: New doxycycline hyclate 100 mg capsule 100 mg PO BID 7 Days Qty: 14 0RF codeine-guaifenesin 10-100 mg/5 mL liquid 5 ml PO Q6H PRN (Reason: cough) 5 Days Qty: 120 0RF methylprednisolone [Medrol ([place])] 4 mg tablets,dose pack 4 mg PO QAM Qty: 21 0RF Rx Instructions: take as medrol dose [place] recs Continued (DME) blood-glucose meter Kit See Rx Instructions .Route Qty: 1 0RF Rx Instructions: 4 times daily to check blood glucose (DME) Oxygen Home Use Kit See Rx Instructions .Route Qty: 1 3RF Rx Instructions: 2L continuous (DME) One touch ultra test strips See Rx Instructions .Route .MEDSUPPLY Rx Instructions: E11.9 Use to test glucose 3 times a day (DME) lancets [Onetouch Delica Safety Lancet] 30 gauge misc See Rx Instructions .Route Qty: 300 3RF Rx Instructions: TID (DME) OneTouch Ultra Test Strip See Rx Instructions .Route Qty: 300 3RF Rx Instructions: three times daily pantoprazole 40 mg tablet,delayed release (DR/EC) 40 mg PO DAILY@0630 Qty: 90 2RF ondansetron 4 mg tablet,disintegrating 4 mg PO Q8H PRN (Reason: nausea and vomiting) Qty: 30 1RF (DME) Portable oxygen concentrator See Rx Instructions .Route .MEDSUPPLY Qty: 1 0RF Rx Instructions: As directed morphine 30 mg tablet extended release 30 mg PO BID@0030,1230 28 Days Qty: 56 0RF oxycodone 10 mg tablet 10 mg PO QID PRN (Reason: pain) 28 Days Qty: 112 0RF codeine-guaifenesin [Guaifenesin AC] 10-100 mg/5 mL liquid 5 ml PO Q6H PRN (Reason: cough) Qty: 118 3RF diazepam [Valium] 2 mg tablet 2 mg PO BEDTIME PRN (Reason: anxiety/muscle spasm) Qty: 30 3RF albuterol sulfate 90 mcg/actuation HFA aerosol inhaler 2 puff INHALATION Q6H PRN (Reason: wheezing) Qty: 8.5 3RF aspirin 325 mg Tablet 325 mg PO BID@0030,1230 Stiolto Respimat 2.5-2.5 mcg/actuation mist 2 puff INHALATION DAILY@1230 montelukast 10 mg tablet 10 mg PO BEDTIME@0030 furosemide [Lasix] 40 mg tablet 40 mg PO DAILY@1230 baclofen 10 mg tablet 10 mg PO BID PRN (Reason: Pain) magnesium oxide 400 mg (241.3 mg magnesium) tablet 400 mg PO DAILY@0030 metformin 1,000 mg tablet 1,000 mg PO BID@0030,1230 losartan 25 mg tablet 25 mg PO DAILY@0030 pramipexole 0.25 mg tablet 0.5 mg PO BID@1230,0030 hydroxychloroquine 200 mg tablet 200 mg PO DAILY@0030 nystatin 100,000 unit/mL suspension 5 ml PO DAILY Rx Instructions: swish and spit nicotine (polacrilex) 4 mg lozenge 4 mg buccal Q4H PRN (Reason: nicotine cravings) lidocaine [Lidocaine Pain Relief] 4 % adhesive patch,medicated 3 patch transdermal DAILY PRN (Reason: Pain) Protocol: Apply to: Apply to: right anterior chest insulin glargine-yfgn 100 unit/mL solution 40 unit subcut DAILY hyoscyamine sulfate 0.125 mg Tablet 0.125 mg PO QID PRN (Reason: Parkinsons) diclofenac sodium 75 mg Tablet,Delayed Release (Dr/Ec) 75 mg PO DAILY PRN (Reason: Pain) mupirocin 2 % Ointment 1 appl TOPICAL BID PRN (Reason: Skin Irritation) loratadine 10 mg Tablet 10 mg PO DAILY [id number]-caff [id number] mg capsule 1 cap PO QID PRN (Reason: headache) 28 Days Qty: 28 0RF (DME) FreeStyle Mag 3 Plus Sensor Device See Rx Instructions .Route Qty: 6 3RF Rx Instructions: As directed (DME) FreeStyle Mag 3 [place] Misc See Rx Instructions .Route Qty: 1 0RF Rx Instructions: As directed (DME) Dexcom G7 Sensor Device See Rx Instructions .Route Qty: 6 3RF Rx Instructions: every 15 days (DME) Dexcom G7 Director Information Security Misc See Rx Instructions .Route Qty: 1 0RF Rx Instructions: As directed amlodipine 10 mg tablet 10 mg PO DAILY@0030 Qty: 90 3RF insulin lispro 100 unit/mL insulin pen 30 unit subcut TIDAC prednisone 5 mg tablet 5 mg PO DAILY Qty: 90 3RF (DME) electric scooter See Rx Instructions .Route .MEDSUPPLY Qty: 1 0RF Rx Instructions: continuous Discharge Orders: Discharge Order (Routine); Ordered 01/25/25 Ordered By: Gordo Cardona Activity on Discharge: As tolerated Stand Alone Forms: Patient Portal Discharge page Print Language: Palauan Care Plan Goals: continue taking steroids, nebulizing treatments and antibiotics follow up with pulmonology smoking cessation Health Concerns: ILD exacerbation Plan of Treatment: Medrol dose [place] Doxycycline 100mg BID Cough suppressant Use supplemental oxygen at home discontinue smoking follow up with PCP and pulmonology as outpatient Assessment: 64 year old women admitted with acute on chronic hypoxic respiratory failure secondary to COPD exacerbation. Patient was placed on empiric IV antibiotics as well as steroids and nebulizing treatments. Pulmonology consulted, suggested on continue glucocorticoids and nebulized bronchodilators the patient was close to baseline on 01/24. Patient Instructions: Chronic Lung Disease and Infection Prevention (DC), Pulmonary Rehabilitation (DC), Energy Conservation Techniques (DC)
--- NOTE | 2025-01-25 13:41 | MHC.CM.PN ---
pt dcd today will francisco javier browne
== END 2025-01-25 14:22 | disposition home health service (06) | DRG 190 ==
LOC: HO.ED 06:54 → HO.EDOVER 09:14 → HO.S3 12:05
PROVIDERS: Emergency Medicine; Admitting Provider Nurse Practitioner Acute Care; Emergency Provider Emergency Medicine; PCP Internal Medicine; Visit Provider Student in an Organized Health Care Education/Training Program
DX: J44.1 Chronic obstructive pulmonary disease with (acute) exacerbation (principal); J96.21 Acute and chronic respiratory failure with hypoxia; E11.65 Type 2 diabetes mellitus with hyperglycemia; I10 Essential (primary) hypertension; M35.00 Sjogren syndrome, unspecified; G43.909 Migraine, unspecified, not intractable, without status migrainosus; E83.42 Hypomagnesemia; Z20.822 Contact with and (suspected) exposure to COVID-19; F17.210 Nicotine dependence, cigarettes, uncomplicated; Z71.6 Tobacco abuse counseling; Z99.81 Dependence on supplemental oxygen; Z79.4 Long term (current) use of insulin; Z79.82 Long term (current) use of aspirin; Z79.899 Other long term (current) drug therapy
CPT/HCPCS: 36415; 71045; 73630; 80048; 80076; 82803; 82947; 83605; 83735; 83880; 84484; 84550; 85025; 85027; 85610; 87040; 87633; 87637; 93005; 93971; 94640; 99285; J0696; J1171; J1271; J2405; J2919

== ENCOUNTER → 2025-01-22 05:03 | Outpatient (BNV) | payer OTHER, SELFPAY | PROVIDERS: Admitting Provider Nurse Practitioner Acute Care; Emergency Provider Emergency Medicine; PCP Internal Medicine; Visit Provider Internal Medicine | DX: I44.5 Left posterior fascicular block (principal) | CPT/HCPCS: 93010 ==

== ENCOUNTER → 2025-01-22 05:10 | Outpatient (BNV) | payer OTHER, SELFPAY | PROVIDERS: Emergency Provider Emergency Medicine; PCP Internal Medicine; Visit Provider Radiology Diagnostic Radiology | DX: M79.662 Pain in left lower leg (principal); R22.42 Localized swelling, mass and lump, left lower limb; R05.9 Cough, unspecified; R06.02 Shortness of breath; M21.612 Bunion of left foot; M85.872 Other specified disorders of bone density and structure, left ankle and foot; M79.89 Other specified soft tissue disorders | CPT/HCPCS: 71045; 73630; 93971 ==

== ENCOUNTER → 2025-01-22 09:11 | Outpatient (BNV) | payer OTHER, SELFPAY | PROVIDERS: Admitting Provider Nurse Practitioner Acute Care; Emergency Provider Emergency Medicine; PCP Internal Medicine; Visit Provider Nurse Practitioner Acute Care | DX: J96.21 Acute and chronic respiratory failure with hypoxia (principal); J44.1 Chronic obstructive pulmonary disease with (acute) exacerbation; E11.65 Type 2 diabetes mellitus with hyperglycemia; R22.42 Localized swelling, mass and lump, left lower limb; F17.210 Nicotine dependence, cigarettes, uncomplicated | CPT/HCPCS: 99222; 99233 ==

== ENCOUNTER → 2025-01-22 09:11 | Outpatient (BNV) | payer OTHER, SELFPAY | PROVIDERS: Admitting Provider Nurse Practitioner Acute Care; Emergency Provider Emergency Medicine; PCP Internal Medicine; Visit Provider Internal Medicine Pulmonary Disease | DX: J44.9 Chronic obstructive pulmonary disease, unspecified (principal); Z99.81 Dependence on supplemental oxygen; J98.4 Other disorders of lung | CPT/HCPCS: 99222 ==